=== PATIENT | female | born 1980 | race Caucasian/White ===

== ENCOUNTER 2017-09-03 21:45 | Emergency (ER) | payer MEDICARE, SELFPAY ==
[2017-09-03 21:46] VITALS: BP 154/104; PULSE 83; RESP 14; TEMP 36.5; O2SAT 96; BMI 23.5
--- NOTE | 2017-09-03 22:02 | ED.DCSUM_ITS ---
- ER Visit Summary Date of Service: 09/03/17 Chief Complaint: Abnormal labs History of Present Illness: The patient is a 37 F to the emergency department with symptoms of low potassium. The patient has a history of short gut syndrome. 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 She has resultant short gut syndrome. She is on oral potassium and magnesium replacement. However, from time to time even with oral replacement she will have low values. Over the past 3 days, she has began have some twitching of her eyes and spasming of her legs. She also has a mild headache which she states she will get from this. She denies any vomiting. She states she has increased her magnesium and that has been giving her some more diarrhea. There has been no blood in the diarrhea. She is on Lovenox and has been compliant with this. She has not had fevers or chills. She denies any new pains. Physical Examination: Vital signs reviewed General: Well-nourished, well-developed Head: Normocephalic, atraumatic Eyes: Pupils equal and reactive, extraocular muscles intact Neck, supple, no lymphadenopathy Heart: Regular rate and rhythm Respiratory: No distress, clear bilaterally Abdomen: Soft, nontender, nondistended, no peritoneal signs Back: Nontender Extremities: Nontender, no edema, no cords Skin: Normal color no rash Neuro: Alert and oriented, no focal or lateralizing deficits Test Results: [] Emergency Department Course and Treatment: The patient presents with symptoms of low potassium and magnesium. IV was established. I did treat her headache she had improvement of her symptoms. The patient was aggressively hydrated. Her labs do show significant hypokalemia with a potassium of 2.1. This is obviously going to be replaced. I did discuss options with the patient. She does not want to be admitted to the hospital. Patient will undergo oral replacement therapy along with IV replacement therapy. We will replace her magnesium IV also. She will then be given another dose of oral replacement potassium and is counseled to increase her potassium replacement at home to double her current strategy. The patient is to call her clinic physician tomorrow to discuss these results. She is comfortable with this plan of care. She is going to be aggressively replaced here in the emergency department. As long as there is no change in plan, the patient will be discharged home. Treatment Plan: [] Disposition: Discharge Impression: 1. Hypokalemia 2. Hypomagnesemia This note was generated with [employer] dictation software. It may contain incorrect words, spelling, and punctuation that were not noted in review of the chart prior to signing ED Disposition - Plan for ED Patient: Chief Complaint: Abn Labs Instructions: ED Potassium Deficiency Referrals: José Luis Motley MD [Primary Care Provider] -
[2017-09-03] MEDS: proCHLORPERazine 10 MG/2 ML Vial IV (22:38)
[2017-09-03] MEDS: DiphenhydrAMINE 50 MG/ML Syringe 25 MG IV (22:38)
[2017-09-03] MEDS: 0.9% Normal Saline 1,000 ML 999 ML IV (22:38)
[2017-09-03 23:05] LABS: Absolute Lymphocyte Count 2.26 X10^3/ul (0.83-4.51); Basophil# 0.02 X10^3/uL; Basophil% 0.4 % (0-1); Eosinophil# 0.09 X10^3/uL; Eosinophils% 1.9 % (0-5); Hematocrit 36.7 % (37-47); Hemoglobin 12.3 g/dl (12.0-15.0); Lymphocyte # 2.26 X10^3/ul (4.0); Lymphocyte % 46.9 % (19-41); Mean Corp Hgb Conc 33.5 g/gl (32-36); Mean Corpuscular Hgb 28.9 pg (27.0-32.0); Mean Corpuscular Volume 86.4 fL (81-99); Mean Platelet Vol. 8.9 fl (6.2-12.0); Monocyte# 0.43 X10^3/uL; Monocyte% 8.9 % (0-10); Neutrophil # 2.02 X10^3/uL (2.7-7.7); Neutrophil % 41.9 % (47-70); Platelet Count 288 K/mm3 (150-450); RBC Distribution Width CV 13.4 % (11.6-14.6); RBC Distribution Width SD 42.5 fl (35.1-43.9); Red Blood Count 4.25 M/mm3 (4.2-5.4); White Blood Count 4.8 K/mm3 (4.4-11.0)
[2017-09-03 23:06] LABS: POSITIVE COUNT NO; POSITIVE DIFFERENTIAL NO; POSITIVE MORPHOLOGY NO
[2017-09-03 23:36] LABS: Anion Gap 12 (5-15); BUN 1 mg/dL (7-18); BUN/Creat Ratio 1.7 RATIO (10-20); Calcium,Total 7.3 mg/dL (8.5-10.1); Chloride 106 mmol/L (98-107); EST Glomerular Filtration Rate 121 mL/min (>60); Est Glom Filt Rate - Afr Amer 147 mL/min (>60); Estimated Creatinine Clearance 111.93 ml/min; Glucose 78 mg/dL (74-106); Magnesium 1.3 mg/dL (1.6-2.6); Potassium 2.1 mmol/L (3.5-5.1); Sodium Level 146 mmol/L (136-145)
--- NOTE | 2017-09-03 23:36 | ED.RN ---
LAB CALLS WITH CRITICAL RESULT, POTASSIUM 2.1, DR. FREEMAN MADE AWARE.
[2017-09-03 23:49] VITALS: BP 154/98; PULSE 63; RESP 16; O2SAT 98
[2017-09-04] MEDS: LORazepam 2 MG/ML Syringe 0.5 MG IV (00:38)
[2017-09-04 00:44] VITALS: BP 144/96; PULSE 57; RESP 18; O2SAT 97
[2017-09-04 02:09] VITALS: BP 140/101; PULSE 60; RESP 21; O2SAT 97
[2017-09-04 02:53] VITALS: BP 134/79; PULSE 74; RESP 16; O2SAT 99
== END 2017-09-04 04:02 | disposition home or self-care (01) ==
PROVIDERS: Emergency Provider Emergency Medicine; Family Provider Family Medicine; PCP Family Medicine
DX: E87.6 Hypokalemia (principal); E83.42 Hypomagnesemia; D68.59 Other primary thrombophilia; K91.2 Postsurgical malabsorption, not elsewhere classified; Z79.02 Long term (current) use of antithrombotics/antiplatelets
CPT/HCPCS: 80048; 83735; 85025; 96361; 96365; 96366; 96368; 96375; 99284; J7030; J7050; A4216

== ENCOUNTER 2017-11-18 18:45 | Inpatient (IN) | payer MEDICARE, SELFPAY ==
[2017-11-18 18:46] VITALS: BP 201/108; PULSE 70; RESP 17; TEMP 37; O2SAT 100; BMI 24.0
[2017-11-18 19:38] LABS: Absolute Lymphocyte Count 1.67 X10^3/ul (0.83-4.51); Basophil# 0.02 X10^3/uL; Basophil% 0.5 % (0-1); Eosinophil# 0.05 X10^3/uL; Eosinophils% 1.2 % (0-5); Hematocrit 40.6 % (37-47); Hemoglobin 13.2 g/dl (12.0-15.0); Lymphocyte # 1.67 X10^3/ul (4.0); Lymphocyte % 41.3 % (19-41); Mean Corp Hgb Conc 32.5 g/gl (32-36); Mean Corpuscular Hgb 28.6 pg (27.0-32.0); Mean Corpuscular Volume 88.1 fL (81-99); Mean Platelet Vol. 9.1 fl (6.2-12.0); Monocyte# 0.27 X10^3/uL; Monocyte% 6.7 % (0-10); Neutrophil # 2.03 X10^3/uL (2.7-7.7); Neutrophil % 50.3 % (47-70); Platelet Count 293 K/mm3 (150-450); RBC Distribution Width CV 13.8 % (11.6-14.6); RBC Distribution Width SD 44.8 fl (35.1-43.9); Red Blood Count 4.61 M/mm3 (4.2-5.4)
--- NOTE | 2017-11-18 19:40 | ED.DCSUM_ITS ---
- ER Visit Summary Date of Service: 11/18/17 Chief Complaint: Abnormal labs History of Present Illness: The patient is a 37 F presenting with abnormal labs. Patient had outpatient labs drawn per [facility] today. She states she was called and advised that she needs to go to the ED because her potassium and magnesium were both low. She has a history of short gut syndrome and history of similar complaints in the past. She has nausea and chronic diarrhea. Denies fever. She has chronic abdominal pain which is unchanged. Physical Examination: Vitals are stable. Patient is afebrile. Alert no acute distress. HEENT exam is unremarkable. Neck is supple. Lungs are clear and equal bilaterally. Heart is regular rate and rhythm. Abdomen is soft nontender nondistended. Extremities are unremarkable. Skin is warm and dry. No focal neurologic deficit. Remainder of exam is unremarkable. Emergency Department Course and Treatment: Patient is given morphine, Zofran IV. Basic metabolic panel shows potassium 2.3, magnesium 1.2. She is ordered potassium and magnesium replacement. Will discuss with the hospitalist for observation. Disposition: Observation Impression: Hypokalemia, hypomagnesemia This note was generated with [employer] dictation software. It may contain incorrect words, spelling, and punctuation that were not noted in review of the chart prior to signing ED Disposition - Plan for ED Patient: Chief Complaint: Abn Labs Referrals: José Luis Motley MD [Primary Care Provider] -
[2017-11-18 19:42] LABS: POSITIVE COUNT NO; POSITIVE DIFFERENTIAL NO; POSITIVE MORPHOLOGY NO
[2017-11-18] MEDS: Morphine 4 MG/ML Syringe IV ×2 (19:51→23:10)
[2017-11-18] MEDS: Ondansetron 4 MG/2 ML Vial IV (19:51)
[2017-11-18 20:20] LABS: Anion Gap 7 (5-15); BUN 5 mg/dL (7-18); BUN/Creat Ratio 8.1 RATIO (10-20); Calcium,Total 8.8 mg/dL (8.5-10.1); Chloride 99 mmol/L (98-107); Creatinine, Serum 0.62 mg/dL (0.55-1.02); EST Glomerular Filtration Rate 116 mL/min (>60); Est Glom Filt Rate - Afr Amer 140 mL/min (>60); Estimated Creatinine Clearance 112.88 ml/min; Glucose 90 mg/dL (74-106); Magnesium 1.2 mg/dL (1.6-2.6); Potassium 2.3 mmol/L (3.5-5.1); Sodium Level 139 mmol/L (136-145)
--- NOTE | 2017-11-18 20:21 | ED.RN ---
lab called to report potassium 2.3, dr. webster and rn aware.
[2017-11-18 21:00] VITALS: BP 181/100; PULSE 60; RESP 16; O2SAT 95
--- NOTE | 2017-11-18 22:37 | PCM.HP.STD ---
Problem List (1) Hypokalemia Status: Acute (2) Hypomagnesemia Status: Acute (3) Short gut syndrome Status: Chronic History of Present Illness Date of Admission: 11/18/17 Chief Complaint: abnormal labs The patient is a 37 year old female patient sent into the ER by her GI specialist for chief complaint of abnormal laboratory studies. Her potassium is critically low at 2.3 and her magnesium is 1.2. She has abdominal discomfort. No nausea at present. No chest pain or shortness of breath. Her blood pressure is noted to be elevated. She will be admitted for observation and management of electrolyte imbalance. Past Medical History Past Medical History (Chronic Problems): Chronic Problems Short gut syndrome (Chronic) Hypercoagulable state, primary (Chronic) Allergies adhesive Allergy (Verified 11/18/17 18:46) Itching amoxicillin [Amoxicillin] Allergy (Verified 11/18/17 18:46) Hives Penicillins Allergy (Verified 11/18/17 18:46) Hives Home Medications: Ambulatory Orders Medication Instructions Recorded Enoxaparin [Lovenox] 70 mg SC BID 10/13/13 Ergocalciferol [Vitamin D] 50,000 unit PO DAILY 10/09/14 Calcium Carbonate [Tums] 100 mg PO TIDCM 04/27/16 L.acidoph,Paracasei, B.lactis 1 each PO DAILY 04/27/16 [Probiotic] Magnesium l-Lactate [Mag-Tab Sr] 3 tab PO TID 04/27/16 Multivit with Calcium,Iron,Min 3 tab PO DAILY 04/27/16 [Multiple Vitamins For Women] Vitamin A 1 cap PO DAILY 04/27/16 Potassium Chloride [K-Dur] 20 meq PO TID 10/08/16 Ferrous Sulfate [Iron] 325 mg PO DAILY 05/01/17 Vitamin E 400 unit PO DAILY 05/01/17 Zinc 50 mg PO DAILY 05/01/17 Surgical History: - - recent history of small bowel resection and partial colon resection EXPEDITION[employer]CE COMB[employer] SKILLS History: No pertinent EXPEDITIONARY [employer]CE COMBAT SKILLS history Smoking Status: Former smoker Review of Systems Constitutional: Denies: Chills, Fever, Weight Change HEENT: Denies: Head Aches, Sinus Congestion, Sinus Drainage Cardiovascular: Denies: Chest Pain, Palpitations Respiratory: Denies: Cough, Shortness of breath at rest, Sputum production Gastrointestinal: Reports: Abdominal Pain. Denies: Nausea, Vomiting Genitourinary: Denies: Dysuria Musculoskeletal: Denies: Joint Pain, Joint Tenderness Skin: Denies: Rash, Wounds Neurological: Denies: Numbness, Tingling, Focal weakness Psychiatric: Denies: Anxiety, Depression, Homicidal Ideations, Suicidal Ideations Hematologic/ Lymphatic: Denies: Easy Bruising, Easy Bleeding VTE Information - Inpt Only VTE Present on Admission: No VTE Mechan Device Prophylaxis: SCD's VTE Pharm Prophylaxis ordered?: No Patient Problems: Active and Suspected Problems Hypokalemia (Acute) Hypomagnesemia (Acute) - Physical Exam General: Alert, Oriented x3, Cooperative HEENT: Atraumatic, Normocephalic Neck: Supple, Negative Carotid Bruits Lungs: Clear to auscultation, Normal air movement Cardiovascular: Regular rate, Normal S1, Normal S2, No murmurs Abdomen: Bowel Sounds Present, Soft, Non Tender, Tender - generalized Extremities: No edema Skin: No rashes Musculoskeletal: No Tenderness to Palpation of Joints or Extremities Neurological: Neuro grossly intact Psych/Mental Status: Normal Affect, Appropriate Vital Signs Temp Pulse Resp BP Pulse Ox 98.6 F 60 16 181/100 H 95 11/18/17 18:46 11/18/17 21:00 11/18/17 21:00 11/18/17 21:00 11/18/17 21:00 Oxygen Delivery Method Room Air Weight: 144 lb 2.917 oz Body Mass Index (BMI) 24.0 Laboratory Tests Past 24 Hrs 11/18/17 11/18/17 19:30 19:30 WBC 4.0 L RBC 4.61 Hgb 13.2 Hct 40.6 MCV 88.1 MCH 28.6 MCHC 32.5 RDW 13.8 RDW Differential 44.8 H Plt Count 293 MPV 9.1 Immature Gran % (Auto) 0.000 Neut % (Auto) 50.3 Lymph % (Auto) 41.3 H Gilliam % (Auto) 6.7 Eos % (Auto) 1.2 Baso % (Auto) 0.5 Absolute Neuts (auto) 2.0 Absolute Lymphs (auto) 1.67 Total Counted Not Reportable Sodium 139 Potassium 2.3 L* Chloride 99 Carbon Dioxide 33.0 H Anion Gap 7 BUN 5 L Creatinine 0.62 Estim Creat Clear Calc 112.88 Est GFR (MDRD) Af Amer 140 Est GFR (MDRD) Non-Af 116 BUN/Creatinine Ratio 8.1 L Glucose 90 Calcium 8.8 Phosphorus 4.0 Magnesium 1.2 L Assessment/Plan All Active Problems Hypokalemia (Acute) Hypomagnesemia (Acute) Ileus (Acute) Plan - admit to general medical floor - D51/2 NS with 20meq KCL at 125cc/hour - Magnesium oxide magnesium oxide 800mg po bid x 4 doses - bmp and magnesium level in am - SCDs for DVT prophylaxis - continue routine home medications Code Visit OBSV E&M: 03366 Initial observation care L2
[2017-11-18 23:07] VITALS: BP 183/119; PULSE 64; RESP 16; O2SAT 98
[2017-11-19] VITALS (7 sets, daily range): BP systolic 151–180; BP diastolic 98–119; PULSE 56–69; RESP 16; TEMP 36.6–37.1; O2SAT 99–100; BMI 24.0
[2017-11-19] MEDS: Lisinopril 5 MG Tablet PO ×2 (01:20→09:41)
[2017-11-19] MEDS: Acetaminophen 325 MG Tablet 650 MG PO ×2 (05:09→17:29)
[2017-11-19] MEDS: traMADol 50 MG Tablet PO (06:30)
[2017-11-19 07:24] LABS: Anion Gap 8 (5-15); BUN 4 mg/dL (7-18); BUN/Creat Ratio 8.4 RATIO (10-20); Calcium,Total 7.4 mg/dL (8.5-10.1); Chloride 102 mmol/L (98-107); Creatinine, Serum 0.48 mg/dL (0.55-1.02); EST Glomerular Filtration Rate 157 mL/min (>60); Est Glom Filt Rate - Afr Amer 190 mL/min (>60); Glucose 89 mg/dL (74-106); Magnesium 1.7 mg/dL (1.6-2.6); Potassium 2.7 mmol/L (3.5-5.1); Sodium Level 141 mmol/L (136-145)
[2017-11-19] MEDS: Magnesium Oxide 400 MG Tablet 800 MG PO ×2 (08:21→17:29)
[2017-11-19] MEDS: Multivitamins,Ther W-Minerals Tablet 3 TABLET PO (08:21)
[2017-11-19] MEDS: Calcium Carbonate 500 MG Tablet PO ×3 (08:21→17:29)
[2017-11-19] MEDS: Ferrous Sulfate 325 MG Tablet PO (08:22)
--- NOTE | 2017-11-19 09:15 | PCM.PN.HOSP ---
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 She was admitted after being seen by her GI doctor and review of abnormal labs. She was admitted because potassium was 2.2 and magnesium was at 1.2 and she had assisted abdominal discomfort. She also had elevated blood pressure on admission. She is being managed for hypomagnesemia and hypokalemia. She has remained stable and electrolytes were replaced on admission. Seen and examined. She has no complaints today. She feels well. She says is on the first time she has had such low potassium and that she was told is due to the short gut syndrome which results in decreased absorption of potassium. She knows that she is never noted her blood pressure to be this high before in the past. She denies any fever or chills, any shortness of breath, any chest pain, any abdominal pain, any diarrhea vomiting. Review of systems otherwise negative. Vitals/I&O's: Vital Signs Temp Pulse Resp BP Pulse Ox 98.0 F 56 L 16 170/108 H 100 11/19/17 08:13 11/19/17 08:25 11/19/17 08:13 11/19/17 08:13 11/19/17 08:13 Oxygen Delivery Method Room Air Weight: 144 lb 2.917 oz Body Mass Index (BMI) 24.0 Intake and Output for Last 24 Hours 11/17/17 11/18/17 11/19/17 23:59 23:59 23:59 Intake Total 769 / 769 Balance 769 / 769 General: Alert, Oriented x3, Cooperative, No apparent distress HEENT: Atraumatic, PERRLA, EOMI, Normocephalic Oral: Moist Mucosa Neck: Supple, No JVD, Negative Carotid Bruits Lungs: Clear to auscultation, Normal air movement, No rhonchi, No wheeze, No rales Cardiovascular: Regular rate, Regular Rhythm, Normal S1, Normal S2, No murmurs Abdomen: Bowel Sounds Present, Soft, Non Tender, Non-Distended, No Hepato-splenomegaly Extremities: No clubbing, No cyanosis, No edema, Capillary Refill Less than 3 Seconds Skin: No rashes, No breakdown Musculoskeletal: No Tenderness to Palpation of Joints or Extremities Lymphatic: No Cervical, Supraclavicular, or Inguinal Adenopathy Neurological: Cranial nerves II-XII grossly intact Psych/Mental Status: Normal Affect, Appropriate, Alert and oriented to time, place, person, mood and affect Laboratory Results 11/19/17 06:28: Sodium 141, Potassium 2.7 L*, Chloride 102, Carbon Dioxide 31.0, Anion Gap 8, BUN 4 L, Creatinine 0.48 L, Estim Creat Clear Calc 145.80, Est GFR (MDRD) Af Amer 190, Est GFR (MDRD) Non-Af 157, BUN/Creatinine Ratio 8.4 L, Glucose 89, Calcium 7.4 L, Magnesium 1.7 Current Medications Acetaminophen (Tylenol) 650 mg PO Q6H PRN PRN PRN Reason: PAIN Last Admin: 11/19/17 05:09 Dose: 650 mg Calcium Carbonate (Tums) 500 mg [facility] Last Admin: 11/19/17 08:21 Dose: 500 mg Enoxaparin Sodium (Lovenox) 70 mg SC BID [facility] Ergocalciferol (Vitamin D) 50,000 unit PO DAILY [facility] Ferrous Sulfate (Ferrous Sulfate) [facility] Last Admin: 11/19/17 08:22 Dose: 325 mg Potassium Chloride/Dextrose/Sod Cl (Kcl 20meq In D5.45ns 1000ml) 1,000 mls @ 125 mls/hr IV .Q8H [facility] Last Admin: 11/19/17 01:22 Dose: 125 mls/hr Potassium Chloride (Kcl 10meq/100ml) 10 meq in 100 mls @ 100 mls/hr IV BOLUS Q1H [facility] Stop: 11/19/17 11:59 Last Admin: 11/19/17 08:17 Dose: 100 mls/hr Lactobacillus Acidophilus (Acidophilus) 1 tablet PO DAILY [facility] Magnesium Hydroxide (Milk Of Magnesia) 30 ml PO DAILY PRN PRN PRN Reason: Constipation Magnesium Oxide (Mag-Ox 400) 800 mg PO [facility]IDB[facility] Last Admin: 11/19/17 08:21 Dose: 800 mg Multivitamins/Minerals (Multivitamin With Minerals) 3 tablet PO DAILYB[facility] Last Admin: 11/19/17 08:21 Dose: 3 tablet Sodium Chloride () 5 - 30 ml IV UD PRN PRN Reason: SALINE FLUSH Vitamin E (Vitamin E) 400 units PO DAILY [facility] Zinc Sulfate (Zinc Sulfate) 220 mg PO DAILY [facility] Medical Necessity - Tobacco Use Smoking Status: Former smoker Assessment/Plan All Active Problems Hypokalemia (Acute) Hypomagnesemia (Acute) Ileus (Acute) 37-year-old female with a history of short gut syndrome hypertension as well as protein 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 1. Hypokalemia and hypomagnesemia K was 2.2 on admission; up to 2.7 today with replacement. Mg was 1.2, is 1.7 today will replace and monitor 2. Protein C and S deficiency on lovenox 70mg bid 3. Hypertension: BP was 183/119 on admission; claims compliance with meds. BP this morning is 170/108; elevated BP and hypokalemia in setting of young age raises possibility of hyperaldosteronism will check plasma aldosterone/plasma renin activity ratio 4. Vitamin D deficiency: on vitamind D replacement 6. DVT prophylaxis: lovenox for Protein C and S deficiency For likely DC tomorrow if K is >3 This note was generated with [employer] dictation software. It may contain incorrect words, spelling, and punctuation that were not noted in checking the note before signing. Code Visit Inpatient E&M: 31062 Subs Hosp L2
--- NOTE | 2017-11-19 09:27 | PN_ITS ---
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 She was admitted after being seen by her GI doctor and review of abnormal labs. She was admitted because potassium was 2.2 and magnesium was at 1.2 and she had assisted abdominal discomfort. She also had elevated blood pressure on admission. She is being managed for hypomagnesemia and hypokalemia. She has remained stable and electrolytes were replaced on admission. Seen and examined. She has no complaints today. She feels well. She says is on the first time she has had such low potassium and that she was told is due to the short gut syndrome which results in decreased absorption of potassium. She knows that she is never noted her blood pressure to be this high before in the past. She denies any fever or chills, any shortness of breath, any chest pain, any abdominal pain, any diarrhea vomiting. Review of systems otherwise negative. Vitals/I&O's: Vital Signs Temp Pulse Resp BP Pulse Ox 98.0 F 56 L 16 170/108 H 100 11/19/17 08:13 11/19/17 08:25 11/19/17 08:13 11/19/17 08:13 11/19/17 08:13 Oxygen Delivery Method Room Air Weight: 144 lb 2.917 oz Body Mass Index (BMI) 24.0 Intake and Output for Last 24 Hours 11/17/17 11/18/17 11/19/17 23:59 23:59 23:59 Intake Total 769 / 769 Balance 769 / 769 General: Alert, Oriented x3, Cooperative, No apparent distress HEENT: Atraumatic, PERRLA, EOMI, Normocephalic Oral: Moist Mucosa Neck: Supple, No JVD, Negative Carotid Bruits Lungs: Clear to auscultation, Normal air movement, No rhonchi, No wheeze, No rales Cardiovascular: Regular rate, Regular Rhythm, Normal S1, Normal S2, No murmurs Abdomen: Bowel Sounds Present, Soft, Non Tender, Non-Distended, No Hepato- splenomegaly Extremities: No clubbing, No cyanosis, No edema, Capillary Refill Less than 3 Seconds Skin: No rashes, No breakdown Musculoskeletal: No Tenderness to Palpation of Joints or Extremities Lymphatic: No Cervical, Supraclavicular, or Inguinal Adenopathy Neurological: Cranial nerves II-XII grossly intact Psych/Mental Status: Normal Affect, Appropriate, Alert and oriented to time, place, person, mood and affect Laboratory Results 11/19/17 06:28: Sodium 141, Potassium 2.7 L*, Chloride 102, Carbon Dioxide 31.0 , Anion Gap 8, BUN 4 L, Creatinine 0.48 L, Estim Creat Clear Calc 145.80, Est GFR (MDRD) Af Amer 190, Est GFR (MDRD) Non-Af 157, BUN/Creatinine Ratio 8.4 L, Glucose 89, Calcium 7.4 L, Magnesium 1.7 Current Medications Acetaminophen (Tylenol) 650 mg PO Q6H PRN PRN PRN Reason: PAIN Last Admin: 11/19/17 05:09 Dose: 650 mg Calcium Carbonate (Tums) 500 mg PO [facility]CO[facility] [place] Last Admin: 11/19/17 08:21 Dose: 500 mg Enoxaparin Sodium (Lovenox) 70 mg SC BID [facility] Ergocalciferol (Vitamin D) 50,000 unit PO DAILY [facility] Ferrous Sulfate (Ferrous Sulfate) 325 [facility]ILYP[facility] Last Admin: 11/19/17 08:22 Dose: 325 mg Potassium Chloride/Dextrose/Sod Cl (Kcl 20meq In D5.45ns 1000ml) 1,000 mls @ 125 mls/hr IV .Q8H [facility] Last Admin: 11/19/17 01:22 Dose: 125 mls/hr Potassium Chloride (Kcl 10meq/100ml) 10 meq in 100 mls @ 100 mls/hr IV BOLUS Q1H [facility] Stop: 11/19/17 11:59 Last Admin: 11/19/17 08:17 Dose: 100 mls/hr Lactobacillus Acidophilus (Acidophilus) 1 tablet PO DAILY [facility] Magnesium Hydroxide (Milk Of Magnesia) 30 ml PO DAILY PRN PRN PRN Reason: Constipation Magnesium Oxide (Mag-Ox 400) 800 [facility] Last Admin: 11/19/17 08:21 Dose: 800 mg Multivitamins/Minerals (Multivitamin With Minerals) 3 tablet [facility] Last Admin: 11/19/17 08:21 Dose: 3 tablet Sodium Chloride () 5 - 30 ml IV UD PRN PRN Reason: SALINE FLUSH Vitamin E (Vitamin E) 400 units PO DAILY [facility] Zinc Sulfate (Zinc Sulfate) 220 mg PO DAILY [facility] Medical Necessity - Tobacco Use Smoking Status: Former smoker Assessment/Plan All Active Problems Hypokalemia (Acute) Hypomagnesemia (Acute) Ileus (Acute) 37-year-old female with a history of short gut syndrome hypertension as well as protein 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 1. Hypokalemia and hypomagnesemia * K was 2.2 on admission; up to 2.7 today with replacement. Mg was 1.2, is 1.7 today * will replace and monitor * 2. Protein C and S deficiency * on lovenox 70mg bid * 3. Hypertension: * BP was 183/119 on admission; claims compliance with meds. * BP this morning is 170/108; elevated BP and hypokalemia in setting of young age raises possibility of hyperaldosteronism * will check plasma aldosterone/plasma renin activity ratio 4. Vitamin D deficiency: on vitamind D replacement 6. DVT prophylaxis: lovenox for Protein C and S deficiency For likely DC tomorrow if K is >3 This note was generated with [email or web address] dictation software. It may contain incorrect words, spelling, and punctuation that were not noted in checking the note before signing. Code Visit Inpatient E&M: 98995 Subs Hosp L2
[2017-11-19] MEDS: Vitamin E 400 UNITS Capsule PO (09:29)
[2017-11-19] MEDS: Enoxaparin 80 MG/0.8 ML Syringe 70 MG SC ×2 (09:30→22:36)
[2017-11-19] MEDS: amLODIPine 10 MG Tablet PO (09:41)
[2017-11-19] MEDS: hydrALAZINE 20 MG/ML Vial 10 MG IV (12:16)
--- NOTE | 2017-11-19 12:31 | CASEMGMT ---
Addendum entered by Rafael Delgado 11/19/17 12:32: Original Note: See RN CM Assessment Link. DC PLAN: HOME No needs identified @ this time. Johnny CONTRERASN RN ACM
--- NOTE | 2017-11-19 12:33 | CASEMGMT ---
See RN CM Assessment Link. DC PLAN:HOME No discharge needs identified. Johnny CONTRERASN RN ACM
--- NOTE | 2017-11-19 14:30 | NURSING ---
PT HAD REQUESTED PAIN MEDS, BUT WAS RESTING WITH EYES CLOSED
[2017-11-19] MEDS: oxyCODONE 5 MG Tablet PO (20:07)
[2017-11-20] MEDS: oxyCODONE 5 MG Tablet PO ×2 (00:36→08:00)
[2017-11-20 03:00] VITALS: BP 150/101; PULSE 62; RESP 18; TEMP 36.9; O2SAT 98
--- NOTE | 2017-11-20 07:12 | PCM.PN.HOSP ---
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 She was admitted after being seen by her GI doctor and review of abnormal labs. She was admitted because potassium was 2.2 and magnesium was at 1.2 and she had assisted abdominal discomfort. She also had elevated blood pressure on admission. She is being managed for hypomagnesemia and hypokalemia. She has remained stable and electrolytes were replaced on admission. Patient seen and examined. She complains of a headache overnight which is due to her inability to sleep. She denies any chest pain or palpitations, shortness of breath, any abdominal pain, dizziness or diarrhea or vomiting. Review of systems otherwise negative. Vitals/I&O's: Vital Signs Temp Pulse Resp BP Pulse Ox 98.5 F 62 18 150/101 H 98 11/20/17 03:00 11/20/17 03:00 11/20/17 03:00 11/20/17 03:00 11/20/17 03:00 Oxygen Delivery Method Room Air Weight: 144 lb 2.917 oz Body Mass Index (BMI) 24.0 Intake and Output for Last 24 Hours 11/18/17 11/19/17 11/20/17 23:59 23:59 23:59 Intake Total 769 / 769 240 / 240 Balance 769 / 769 240 / 240 General: Alert, Oriented x3, Cooperative, No apparent distress HEENT: Atraumatic, PERRLA, EOMI, Normocephalic Oral: Moist Mucosa Neck: Supple, No JVD, Negative Carotid Bruits Lungs: Clear to auscultation, Normal air movement, No rhonchi, No wheeze, No rales Cardiovascular: Regular rate, Regular Rhythm, Normal S1, Normal S2, No murmurs Abdomen: Bowel Sounds Present, Soft, Non Tender, Non-Distended, No Hepato-splenomegaly Extremities: No clubbing, No cyanosis, No edema, Capillary Refill Less than 3 Seconds Skin: No rashes, No breakdown Musculoskeletal: No Tenderness to Palpation of Joints or Extremities Lymphatic: No Cervical, Supraclavicular, or Inguinal Adenopathy Neurological: Cranial nerves II-XII grossly intact Psych/Mental Status: Normal Affect, Appropriate, Alert and oriented to time, place, person, mood and affect Laboratory Results 11/19/17 06:28: Sodium 141, Potassium 2.7 L*, Chloride 102, Carbon Dioxide 31.0, Anion Gap 8, BUN 4 L, Creatinine 0.48 L, Estim Creat Clear Calc 145.80, Est GFR (MDRD) Af Amer 190, Est GFR (MDRD) Non-Af 157, BUN/Creatinine Ratio 8.4 L, Glucose 89, Calcium 7.4 L, Magnesium 1.7 11/19/17 10:10: Renin Pending, Aldosterone Pending Current Medications Acetaminophen (Tylenol) 650 mg PO Q6H PRN PRN PRN Reason: PAIN Last Admin: 11/19/17 17:29 Dose: 650 mg Amlodipine Besylate (Norvasc) 10 mg PO DAILY [facility] Last Admin: 11/19/17 09:41 Dose: 10 mg Calcium Carbonate (Tums) 500 mg PO TIDCM [facility] Last Admin: 11/19/17 17:29 Dose: 500 mg Enoxaparin Sodium (Lovenox) 70 mg SC BID [facility] Last Admin: 11/19/17 22:36 Dose: 70 mg Ergocalciferol (Vitamin D) 50,000 unit PO DAILY [facility] Last Admin: 11/19/17 09:29 Dose: 50,000 unit [facility] Last Admin: 11/19/17 08:22 Dose: 325 mg Hydralazine HCl (Apresoline Iv) 10 mg IV Q8H PRN PRN PRN Reason: BLOOD PRESSURE Last Admin: 11/19/17 12:16 Dose: 10 mg Lactobacillus Acidophilus (Acidophilus) 1 tablet PO DAILY [facility] Last Admin: 11/19/17 09:29 Dose: 1 tablet Lisinopril (Zestril) 5 mg PO DAILY [facility] Last Admin: 11/19/17 09:41 Dose: 5 mg Magnesium Hydroxide (Milk Of Magnesia) 30 ml PO DAILY PRN PRN PRN Reason: Constipation [facility]Ox 400) [facility] Last Admin: 11/19/17 17:29 Dose: 800 mg Multivitamins/Minerals ([facility]ivitamin With Minerals) [facility] Last Admin: 11/19/17 08:21 Dose: 3 tablet Oxycodone HCl (Oxyir) 5 - 10 mg PO Q4H PRN PRN PRN Reason: SEVERE PAIN (6-10/10) Last Admin: 11/20/17 00:36 Dose: 5 mg Sodium Chloride () 5 - 30 ml IV UD PRN PRN Reason: SALINE FLUSH Vitamin E (Vitamin E) 400 units PO DAILY [facility] Last Admin: 11/19/17 09:29 Dose: 400 units Zinc Sulfate (Zinc Sulfate) 220 mg PO DAILY [facility] Last Admin: 11/19/17 09:29 Dose: 220 mg Medical Necessity - Tobacco Use Smoking Status: Former smoker Assessment/Plan All Active Problems Hypokalemia (Acute) Hypomagnesemia (Acute) Ileus (Acute) 37-year-old female with a history of short gut syndrome hypertension as well as protein [employer] deficiency admitted with hypomagnesemia and hypokalemia as well as hypertension. 1. Hypokalemia and hypomagnesemia K was 2.2 on admission it went up to 2.7 and is still 2.7 today will give 60meq of potassium replacement Mg is 1.6; will replace with 2 g of magnesium patient wants to be discharged home as she says she has had Mg of 2.7 before. will dc home after replacing Potassium and magnesium. Will dc home with PO potassium 20meq tid and magnesium lactate 84mg 2 tabs bid. to follow up with PCP in 1 week with repeat K level 2. Protein C and S deficiency on lovenox 70mg bid 3. Hypertension: newly diagnosed. BP was 183/119 on admission; daniela later said she had never been on any meds was started on PO amlodipine 10mg daily and lisinopril 5mg daily. Bp today is 155/93. To follow up with PCP for Bp optimisation plasma/aldosterone level still pending; sample taken before patient started on lisinopril 4. Vitamin D deficiency: on vitamind D replacement 6. DVT prophylaxis: lovenox for Protein C and S deficiency Disposition: dc today at patient's insistence. Discharged home on PO potassium chloride 20meq tid, magnesium lactate 84mg (2 tabs bid), PO amlodipine 10mg dailya nd lisinopril 5mg daily. To follow up with PCP in one week. Of note, patient left the hospital without informing nurses or physician. Attempts to call patient to come back for her prescription and discharge instructions were unsuccessful. Per nurses, patient has relative on the floor was willing to take a prescription and discharge summary to her. Scripts for medications as mentioned above given. This note was generated with [employer] software. It may contain incorrect words, spelling, and punctuation that were not noted in checking the note before signing. Code Visit Inpatient E&M: 51656 Subs Hosp L2
[2017-11-20 08:00] VITALS: BP 155/93; PULSE 70; RESP 18; TEMP 36.8; O2SAT 98
[2017-11-20 08:43] LABS: Anion Gap 6 (5-15); BUN 7 mg/dL (7-18); BUN/Creat Ratio 13.3 RATIO (10-20); Calcium,Total 7.7 mg/dL (8.5-10.1); Chloride 100 mmol/L (98-107); Creatinine, Serum 0.53 mg/dL (0.55-1.02); EST Glomerular Filtration Rate 139 mL/min (>60); Est Glom Filt Rate - Afr Amer 169 mL/min (>60); Estimated Creatinine Clearance 132.04 ml/min; Glucose 86 mg/dL (74-106); Magnesium 1.6 mg/dL (1.6-2.6); Potassium 2.7 mmol/L (3.5-5.1); Sodium Level 141 mmol/L (136-145)
[2017-11-20] MEDS: Calcium Carbonate 500 MG Tablet PO (09:00)
[2017-11-20] MEDS: Magnesium Oxide 400 MG Tablet 800 MG PO (09:00)
[2017-11-20] MEDS: Multivitamins,Ther W-Minerals Tablet 3 TABLET PO (09:00)
[2017-11-20] MEDS: Ferrous Sulfate 325 MG Tablet PO (09:00)
--- NOTE | 2017-11-20 10:37 | PCA ---
D/C'd pt's IV per nurses request. Pt. tolerated well.
[2017-11-20] MEDS: Enoxaparin 80 MG/0.8 ML Syringe 70 MG SC (10:55)
[2017-11-20] MEDS: Lisinopril 5 MG Tablet PO (10:56)
[2017-11-20] MEDS: amLODIPine 10 MG Tablet PO (10:56)
[2017-11-20] MEDS: Vitamin E 400 UNITS Capsule PO (10:56)
--- NOTE | 2017-11-20 11:23 | NURSING ---
dr ayers notified of pt refusal of mag and k riders-pt anxious to leave and was told was involved with another pt at this time
--- NOTE | 2017-11-20 11:25 | NURSING ---
pt not in room
--- NOTE | 2017-11-20 11:33 | PCM.DC ---
- Discharge Diagnoses Current Active Problems: Current Active and Chronic Problems Hypokalemia (Acute) Hypomagnesemia (Acute) Short gut syndrome (Chronic) You will use the following diet at home:: No restrictions Your food should be the consistency of: Regular Your liquids should be the consistency of: Regular/Thin Discharge Activity: Return to Normal Activity May resume sexual activity in: No Restrictions Weight Bearing Status: Weight bearing as tolerated Instructions: Discharge Instructions for Hypokalemia, Discharge Instructions: Eating a High Potassium Diet, ED Potassium Deficiency, Discharge Instructions for Hypomagnesemia Pending Tests on Discharge: plasma renin/aldosterone ratio to rule out hyperaldosteronism Allergies/Adverse Reactions: Allergies adhesive Allergy (Verified 11/18/17 18:46) Itching amoxicillin [Amoxicillin] Allergy (Verified 11/18/17 18:46) Hives Penicillins Allergy (Verified 11/18/17 18:46) Hives Medications to take at Discharge Enoxaparin [Lovenox] 70 mg SC BID 10/13/13 Ergocalciferol [Vitamin D] 50,000 unit PO DAILY 10/09/14 Calcium Carbonate [Tums] 100 mg PO TIDCM 04/27/16 L.acidoph,Paracasei, B.lactis [Probiotic] 1 each PO DAILY 04/27/16 Multivit with Calcium,Iron,Min [Multiple Vitamins For Women] 3 tab PO DAILY 04/27/16 Vitamin A 1 cap PO DAILY 04/27/16 Ferrous Sulfate [Iron] 325 mg PO DAILY 05/01/17 Vitamin E 400 unit PO DAILY 05/01/17 Zinc 50 mg PO DAILY 05/01/17 Amlodipine [Norvasc] 10 mg PO DAILY 30 Days #30 tab 11/20/17 Lisinopril [Zestril] 5 mg PO DAILY 30 Days #30 tab 11/20/17 Magnesium l-Lactate [Mag-Tab Sr] 3 tab PO TID 10 Days #90 tablet.er 11/20/17 Potassium Chloride 40 meq PO BID 30 Days #120 tab.er.prt 11/20/17 The following prescriptions were given: Amlodipine [Norvasc] 10 mg PO DAILY 30 Days #30 tab Lisinopril [Zestril] 5 mg PO DAILY 30 Days #30 tab Potassium Chloride 40 meq PO BID 30 Days #120 tab.er.prt Magnesium l-Lactate [Mag-Tab Sr] 3 tab PO TID 10 Days #90 tablet.er Primary Care Physician: José Luis Motley MD [Primary Care Provider] - Please follow up with your Primary Care Physician in: one week Test Results: Proposed Discharge Date: 11/20/17
--- NOTE | 2017-11-20 11:36 | PCM.DC.SUM ---
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 She was admitted on 11/18/17 after being seen by her GI doctor and review of abnormal labs. She was admitted because potassium was 2.2 and magnesium was at 1.2 and she had associated abdominal discomfort. She also had elevated blood pressure on admission. She is being managed for hypomagnesemia and hypokalemia newly diagnosed hypertension. Potassium was replaced but remained persistently low. Potassium came up to 2.7 and remained at 2.7. Magnesium was also replaced and came up to 1.7 and 1.6. In light of newly diagnosed hypertension and hypokalemia, plasma renin/aldosterone ratio was ordered to rule out hyperaldosteronism. Patient remained stable and asymptomatic. Patient was started on p.o. amlodipine 10 mg daily and p.o. lisinopril 5 mg daily and blood pressure control improved slightly. On 11/20/17, patient insisted on being discharged because she felt well and she says she had had previously diagnosed potassium level of 2.7 and she had remained fine. Patient left before discharge to be completed and without informing any of the staff. Several attempts made to contact the patient to come for scripts as it could not be estimated but this was unsuccessful. Per nurse, patient had a relative was a staff on the medical floor and so was willing to take patients prescriptions to her. Prescription given for p.o. potassium chloride 20 mg 3 times daily, amlodipine 10 mg daily and lisinopril 5 mg daily as well as magnesium lactate 84 mg tablets 2 tablets 2 times daily. She is to follow-up with her primary care doctor in 1 week.. [] Discharge Diet: 2000 mg Sodium Diet, - Discharge Activity: Return to Normal Activity May resume sexual activity in: No Restrictions Weight Bearing Status: Weight bearing as tolerated Home Medications: Medications to take at Discharge Enoxaparin [Lovenox] 70 mg SC BID 10/13/13 Ergocalciferol [Vitamin D] 50,000 unit PO DAILY 10/09/14 Calcium Carbonate [Tums] 100 mg PO TIDCM 04/27/16 L.acidoph,Paracasei, B.lactis [Probiotic] 1 each PO DAILY 04/27/16 Multivit with Calcium,Iron,Min [Multiple Vitamins For Women] 3 tab PO DAILY 04/27/16 Vitamin A 1 cap PO DAILY 04/27/16 Ferrous Sulfate [Iron] 325 mg PO DAILY 05/01/17 Vitamin E 400 unit PO DAILY 05/01/17 Zinc 50 mg PO DAILY 05/01/17 Amlodipine [Norvasc] 10 mg PO DAILY 30 Days #30 tab 11/20/17 Lisinopril [Zestril] 5 mg PO DAILY 30 Days #30 tab 11/20/17 Magnesium l-Lactate [Magnesium l-Lactate Dihyd Sr] 168 mg PO BID 30 Days #120 tablet.er MDD 2 tabs bid 11/20/17 Potassium Chloride [K-Dur] 20 meq PO TID 30 Days #90 tab 11/20/17 Following Prescrptions Were Given to Patient: Amlodipine [Norvasc] 10 mg PO DAILY 30 Days #30 tab Lisinopril [Zestril] 5 mg PO DAILY 30 Days #30 tab Magnesium l-Lactate [Magnesium l-Lactate Dihyd Sr] 168 mg PO BID 30 Days #120 tablet.er MDD 2 tabs bid Potassium Chloride [K-Dur] 20 meq PO TID 30 Days #90 tab Primary Care Physician: José Luis Motley MD [Primary Care Provider] - Please follow up with your Primary Care Physician in: one week Patient Instructions: Discharge Instructions for Hypokalemia, Discharge Instructions for Hypomagnesemia, Discharge Instructions: Eating a High Potassium Diet, ED Potassium Deficiency Disposition: Home Minutes spent on discharge:: 40 Patient Condition:: Good Medical Necessity - Tobacco Use Smoking Status: Former smoker Meaningful Use Info Meaningful Use Diagnoses (Choose all that apply): None applicable Code Visit Inpatient E&M: 62639 Disch Hosp
--- NOTE | 2017-11-22 16:55 | CASEMGMT ---
Case Management Follow-up Call: Phone answered and was told that the patient was unavailable. I provided CM callback number for any needs/questions the patient may have.
[2017-11-27 11:06] LABS: Aldosterone, Serum < 1.0 ng/dL (0.0-30.0); Renin, Plasma < 0.167 ng/mL/hr (0.167-5.380)
== END 2017-11-20 11:35 | disposition home or self-care (01) | DRG 641 ==
LOC: ED 19:37 → MS3 23:11
PROVIDERS: Admitting Provider Family Medicine; Emergency Provider Emergency Medicine; Family Provider Family Medicine; PCP Family Medicine; Visit Provider Student in an Organized Health Care Education/Training Program
DX: E87.6 Hypokalemia (principal); D68.59 Other primary thrombophilia; K91.2 Postsurgical malabsorption, not elsewhere classified; E83.42 Hypomagnesemia; E55.9 Vitamin D deficiency, unspecified; I10 Essential (primary) hypertension; Z87.891 Personal history of nicotine dependence; Z90.49 Acquired absence of other specified parts of digestive tract
CPT/HCPCS: 36415; 80048; 82088; 83735; 84100; 84244; 85025; 99284; J7030; J7040; A4216; J2405

== ENCOUNTER → 2017-11-26 17:42 | Outpatient (CLI) | payer MEDICARE, SELFPAY ==
[2017-11-26 18:38] LABS: ALB/GLOB Ratio 0.9 RATIO (0.9-2.4); AST(SGOT) 33 U/L (15-37); Alanine Aminotransfer ALT/SGPT 54 U/L (13-56); Albumin, Serum 3.3 g/dL (3.2-5.0); Alkaline Phosphatase 91 U/L (45-117); Anion Gap 10 (5-15); BUN 6 mg/dL (7-18); BUN/Creat Ratio 10.2 RATIO (10-20); Calcium,Total 8.4 mg/dL (8.5-10.1); Chloride 111 mmol/L (98-107); Creatinine, Serum 0.59 mg/dL (0.55-1.02); EST Glomerular Filtration Rate 122 mL/min (>60); Est Glom Filt Rate - Afr Amer 147 mL/min (>60); Globulin 3.8 g/dL (2.2-4.2); Glucose 71 mg/dL (74-106); Magnesium 1.5 mg/dL (1.6-2.6); Phosphorus 3.4 mg/dL (2.5-4.9); Potassium 3.5 mmol/L (3.5-5.1); Protein, Total 7.1 g/dL (6.4-8.2); Sodium Level 145 mmol/L (136-145)
[2017-11-26 18:45] LABS: Absolute Neutrophil Count 2.6 X10^3/uL (2.0-7.7); Basophil# 0.02 X10^3/uL; Basophil% 0.4 % (0-1); Eosinophil# 0.12 X10^3/uL; Eosinophils% 2.6 % (0-5); Hematocrit 37.9 % (37-47); Lymphocyte % 34.6 % (19-41); Mean Corp Hgb Conc 31.7 g/gl (32-36); Mean Corpuscular Hgb 29.3 pg (27.0-32.0); Mean Corpuscular Volume 92.4 fL (81-99); Mean Platelet Vol. 9.9 fl (6.2-12.0); Monocyte# 0.32 X10^3/uL; Monocyte% 6.9 % (0-10); Neutrophil # 2.57 X10^3/uL (2.7-7.7); Neutrophil % 55.5 % (47-70); Platelet Count 269 K/mm3 (150-450); RBC Distribution Width CV 13.6 % (11.6-14.6); RBC Distribution Width SD 45.3 fl (35.1-43.9); White Blood Count 4.6 K/mm3 (4.4-11.0)
[2017-11-26 19:04] LABS: POSITIVE COUNT NO; POSITIVE DIFFERENTIAL NO; POSITIVE MORPHOLOGY NO
== END ==
DX: R19.7 Diarrhea, unspecified (principal); K91.2 Postsurgical malabsorption, not elsewhere classified; K55.069 Acute infarction of intestine, part and extent unspecified
CPT/HCPCS: 80053; 83735; 84100; 85025

== ENCOUNTER 2018-03-07 16:02 | Emergency (ER) | payer MEDICAID, SELFPAY ==
[2018-03-07 16:03] VITALS: BP 147/94; PULSE 75; RESP 17; TEMP 36.4; O2SAT 98; BMI 24.0
--- NOTE | 2018-03-07 16:17 | EKG12_ITS ---
Test Reason : ABNORMAL LABS Blood Pressure : / mmHG Vent. Rate : 067 BPM Atrial Rate : 067 BPM P-R Int : 138 ms QRS Dur : 086 ms QT Int : 430 ms P-R-T Axes : 005 010 016 degrees QTc Int : 454 ms Normal sinus rhythm Non specific T wave abnormality Confirmed by LESLI RUIZ, JONATHAN ([id number]), multimedia editor ANTONIETTA GONZALEZ ([id number]) on 03/10/2018 12:26:56 PM Referred By: ELENI Confirmed By:JONATHAN BALLESTEROS MD
--- NOTE | 2018-03-07 17:00 | RAD_ITS ---
STUDY: X-RAY CHEST REASON FOR EXAM: Female, 37 years old. Mild cough and shortness of breath TECHNIQUE: PA and lateral views of the chest. # of Images: 2 COMPARISON: 10/13/2013 FINDINGS: The lungs are clear and expanded. There is no demonstrated pleural abnormality. Normal size heart. Normal mediastinum and yoly. Normal visualized pulmonary arteries. Normal visualized aortic arch and descending thoracic aorta. Normal visualized thoracic spine. Normal visualized ribs, clavicles, and shoulders. There is no demonstrated abnormality of the visualized soft tissue structures of the upper abdomen. RAD/Chest PA and Lateral IMPRESSION: Normal x-ray examination of the chest. Electronically Signed: Leonardo Castaneda DO at 17:15 EDT Tel , Service support ,
[2018-03-07 17:08] LABS: Absolute Lymphocyte Count 1.71 X10^3/ul (0.83-4.51); Absolute Neutrophil Count 2.2 X10^3/uL (2.0-7.7); Basophil# 0.04 X10^3/uL; Basophil% 0.9 % (0-1); Eosinophil# 0.12 X10^3/uL; Eosinophils% 2.7 % (0-5); Hematocrit 37.3 % (37-47); Hemoglobin 11.7 g/dl (12.0-15.0); Lymphocyte # 1.71 X10^3/ul (4.0); Mean Corp Hgb Conc 31.4 g/gl (32-36); Mean Corpuscular Hgb 28.5 pg (27.0-32.0); Mean Platelet Vol. 9.8 fl (6.2-12.0); Monocyte# 0.32 X10^3/uL; Monocyte% 7.3 % (0-10); Neutrophil % 50.1 % (47-70); Platelet Count 268 K/mm3 (150-450); RBC Distribution Width CV 13.9 % (11.6-14.6); White Blood Count 4.4 K/mm3 (4.4-11.0)
[2018-03-07 17:10] LABS: POSITIVE COUNT NO; POSITIVE DIFFERENTIAL NO; POSITIVE MORPHOLOGY NO
[2018-03-07 17:38] LABS: Anion Gap 6 (5-15); BUN 4 mg/dL (7-18); BUN/Creat Ratio 7.5 RATIO (10-20); Calcium,Total 7.4 mg/dL (8.5-10.1); Chloride 115 mmol/L (98-107); Creatinine, Serum 0.53 mg/dL (0.55-1.02); EST Glomerular Filtration Rate 137 mL/min (>60); Est Glom Filt Rate - Afr Amer 166 mL/min (>60); Estimated Creatinine Clearance 126.72 ml/min; Glucose 80 mg/dL (74-106); Magnesium 1.2 mg/dL (1.6-2.6); Phosphorus 2.6 mg/dL (2.5-4.9); Potassium 3.3 mmol/L (3.5-5.1); Sodium Level 144 mmol/L (136-145)
[2018-03-07 17:53] VITALS: BP 150/102; RESP 14; O2SAT 99
--- NOTE | 2018-03-07 17:56 | ED.VISSUMM ---
- ER Visit Summary Date of Service: 03/07/18 Chief Complaint: Abnormal labs History of Present Illness: The patient is a 37 F who states that she was told by her break out man to go to the ER due to abnormal labs. She had labs drawn 5 days ago. She has routine labs drawn due to a history of short gut syndrome. 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 She is not on TPN any longer. She otherwise has a history of hypertension. She had blood work drawn on Saturday of this week and has complained of some muscle cramping intermittent shortness of breath and palpitations. She has chronic diarrhea related to her short gut syndrome. Her break out man called today and told her that with her symptoms and lab abnormalities she should be evaluated in the. She has been admitted previously for hypomagnesemia and hypokalemia. She was told that her magnesium and potassium were low and that her CO2 was high. Physical Examination: Afebrile vitals are unremarkable Patient resting comfortably no distress Moist mucous members Heart regular rate and rhythm next line lungs clear Abdomen soft Alert No focal or lateralizing neurological deficits Test Results: Labs notable for hemoglobin 11.7, potassium 3.3, magnesium 1.2. Phosphorus is normal. Emergency Department Course and Treatment: Patient only has mild hypokalemia. She was given additional oral potassium chloride. We will replace her magnesium IV. I do not believe the patient requires hospitalization at this point. She was advised to return for any new or worsening symptoms and otherwise to follow-up with her primary care physician. Patient will be discharged after electrolyte replacement. Treatment Plan: [] Disposition: Discharge Impression: Hypokalemia Hypomagnesemia This note was generated with [employer] dictation software. It may contain incorrect words, spelling, and punctuation that were not noted in review of the chart prior to signing ED Disposition - Plan for ED Patient: Chief Complaint: Abn Labs Referrals: José Luis Motley MD [Primary Care Provider] -
--- NOTE | 2018-03-07 17:59 | ED.DCSUM_ITS ---
- ER Visit Summary Date of Service: 03/07/18 Chief Complaint: Abnormal labs History of Present Illness: The patient is a 37 F who states that she was told by her diet consultant to go to the ER due to abnormal labs. She had labs drawn 5 days ago. She has routine labs drawn due to a history of short gut syndrome. 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 She is not on TPN any longer. She otherwise has a history of hypertension. She had blood work drawn on Saturday of this week and has complained of some muscle cramping intermittent shortness of breath and palpitations. She has chronic diarrhea related to her short gut syndrome. Her diet consultant called today and told her that with her symptoms and lab abnormalities she should be evaluated in the. She has been admitted previously for hypomagnesemia and hypokalemia. She was told that her magnesium and potassium were low and that her CO2 was high. Physical Examination: Afebrile vitals are unremarkable Patient resting comfortably no distress Moist mucous members Heart regular rate and rhythm next line lungs clear Abdomen soft Alert No focal or lateralizing neurological deficits Test Results: Labs notable for hemoglobin 11.7, potassium 3.3, magnesium 1.2. Phosphorus is normal. Emergency Department Course and Treatment: Patient only has mild hypokalemia. She was given additional oral potassium chloride. We will replace her magnesium IV. I do not believe the patient requires hospitalization at this point. She was advised to return for any new or worsening symptoms and otherwise to follow- up with her primary care physician. Patient will be discharged after electrolyte replacement. Treatment Plan: [] Disposition: Discharge Impression: Hypokalemia Hypomagnesemia This note was generated with [employer] dictation software. It may contain incorrect words, spelling, and punctuation that were not noted in review of the chart prior to signing ED Disposition - Plan for ED Patient: Chief Complaint: Abn Labs Referrals: José Luis Motley MD [Primary Care Provider] -
--- NOTE | 2018-03-07 17:59 | ED.DEP ---
ED Disposition - Plan for ED Patient: Chief Complaint: Abn Labs Instructions: ED Potassium Deficiency, Discharge Instructions for Hypomagnesemia Referrals: José Luis Motley MD [Primary Care Provider] -
[2018-03-07 18:07] VITALS: BP 147/103; PULSE 71; RESP 16; O2SAT 97
[2018-03-07] MEDS: Ketorolac 30 MG/ML Syringe IV (19:23)
[2018-03-07 21:00] VITALS: BP 163/105; PULSE 74; RESP 16; O2SAT 99
== END 2018-03-07 21:01 | disposition home or self-care (01) ==
PROVIDERS: Emergency Provider Emergency Medicine; Family Provider Family Medicine; PCP Family Medicine
DX: E87.6 Hypokalemia (principal); E83.42 Hypomagnesemia; K91.2 Postsurgical malabsorption, not elsewhere classified; D68.59 Other primary thrombophilia; I10 Essential (primary) hypertension; Z79.02 Long term (current) use of antithrombotics/antiplatelets; Z79.899 Other long term (current) drug therapy
CPT/HCPCS: 36415; 71046; 80048; 83735; 84100; 85025; 93005; 96365; 96366; 96375; 99285; J7050; A4216

== ENCOUNTER 2018-06-23 14:37 | Emergency (ER) | payer MEDICAID, SELFPAY ==
[2018-06-23 14:38] VITALS: BP 157/107; PULSE 76; RESP 17; TEMP 36.9; O2SAT 97; BMI 26.4
--- NOTE | 2018-06-23 15:59 | RAD_ITS ---
STUDY: X-RAY CHEST REASON FOR EXAM: Female, 38 years old. Worsening cough. TECHNIQUE: PA and lateral views of the chest. COMPARISON: March 07, 2018 FINDINGS: The lungs are clear and expanded. There is no demonstrated pleural abnormality. Normal size heart. Normal mediastinum and yoly. Normal visualized pulmonary arteries. Normal visualized aortic arch and descending thoracic aorta. Normal visualized thoracic spine. Normal visualized ribs, clavicles, and shoulders. There is no demonstrated abnormality of the visualized soft tissue structures of the upper abdomen. RAD/Chest PA and Lateral IMPRESSION: No acute cardiopulmonary process. Electronically Signed: Sarah Garcia MD at 16:25 EST Tel , Service support ,
--- NOTE | 2018-06-23 16:53 | ED.DCSUM_ITS ---
- ER Visit Summary Date of Service: 06/23/18 Chief Complaint: Cough History of Present Illness: The patient is a [address] Motley. She reports that she has a cough began approximately 7 days ago. Is nonproductive. She reports she has a sore throat 6 out of 10 severity. She has right ear pain is 7 out of 10 severity. She has had chills, but no fever. She reports that she has had mild shortness of breath. She has not been wheezing. Patient reports that she chipped a tooth in the right mandible approximately 1 week ago. She has pain here that 6 out of 10 severity. She has not seen a dentist for this. Physical Examination: Vitals: Stable. Afebrile. General: Well-nourished and well-developed. Head: Normocephalic atraumatic. Neck: Supple, no lymphadenopathy. No JVD. Nontender. Dental: Bell 1 fracture lateral right mandibular second premolar. There is no trismus. No focal abscess. No edema of the floor of her mouth. Cardiovascular: Regular rate and rhythm. No murmurs. Respiratory: No respiratory distress. Clear to auscultation bilaterally. Abdominal: Soft, nontender, nondistended, normal bowel sounds. No guarding, rebound, or peritoneal signs. Back: Nontender. Extremities: Nontender, no edema. Skin: Normal color, no rash. Neurologic: Alert and oriented ?3. Cranial nerves II through XII are intact. Normal strength and sensation. Psych: Normal affect. Test Results: Chest x-ray is normal. Emergency Department Course and Treatment: Patient was treated with Mirtha Tam. She is resting comfortably. Treatment Plan: Patient will be discharged Tesalvin Tam for her URI. Instructed to follow-up Dr. Ridge López in 1 week if not improving. She is instructed to follow-up the dentist as soon as possible for her tooth. Return to the emergency department for any worsening symptoms. Disposition: To home in improved and stable condition. Impression: 1. URI. 2. Dental pain. This note was generated with [employer] software. It may contain incorrect words, spelling, and punctuation that were not noted in review of the chart prior to signing ED Disposition - Plan for ED Patient: Disposition: Home or Assisted Living Instructions: ED Upper Resp Infec No Abx Tx, ED Tooth Pain Prescriptions: Benzonatate [Tessalon Perle] 200 mg PO TID PRN PRN #20 capsule PRN Reason: Cough Referrals: José Luis Motley MD [Primary Care Provider] - 1 Week if not improving Dentist,Your [STAFF PHYSICIAN] - As soon as possible
[2018-06-23 17:04] VITALS: BP 166/108; PULSE 84; RESP 18
[2018-06-23] MEDS: Benzonatate 100 MG Capsule 200 MG PO (17:04)
== END 2018-06-23 17:08 | disposition home or self-care (01) ==
PROVIDERS: Emergency Provider Emergency Medicine; Family Provider Family Medicine; PCP Family Medicine
DX: J06.9 Acute upper respiratory infection, unspecified (principal); K08.89 Other specified disorders of teeth and supporting structures; Z79.899 Other long term (current) drug therapy
CPT/HCPCS: 71046; 99283

== ENCOUNTER 2018-07-04 07:16 | Observation (INO) | payer MEDICAID, SELFPAY ==
[2018-07-04] VITALS (14 sets, daily range): BP systolic 122–208; BP diastolic 89–126; PULSE 60–85; RESP 16–22; TEMP 36–37; O2SAT 96–100; BMI 25.6
--- NOTE | 2018-07-04 08:05 | US_ITS ---
STUDY: ULTRASOUND OF THE FEMALE PELVIS - COMPLETE REASON FOR EXAM: Female, 38 years old. 4 day history of right-sided pelvic pain. History of prior resection of a right ovarian cyst. LMP: June 24, 2018. TECHNIQUE: Transvaginal TECHNICAL QUALITY: Adequate. COMPARISON: None. FINDINGS: The uterus is anteverted and is in a midline position. The uterus measures 10.9 cm x 5.9 cm x 5.3 cm. There is a Nabothian cyst of the cervix. The endometrium measures 16 mm in thickness, and is hyperechoic. There is no demonstrated endometrial mass. There is no demonstrated myometrial mass. I.U.D. - The patient does not have an I.U.D. The right ovary is visualized. The right ovary measures 3.8 cm x 3.5 cm x 3.1 cm. 2 dominant follicles are seen. The larger measures 1.6 cm x 1.9 cm x 0.9 cm. There is no visualized right adnexal mass or complex lesion. There is normal arterial and normal venous vascularity. The left ovary is visualized. The left ovary measures 1.8 cm x 1.5 cm x 1.1 cm. There is no left ovarian cyst or ovarian mass. There is no visualized left adnexal mass or complex lesion. There is normal arterial and normal venous vascularity. There is no fluid in the cul-de-sac. The pre void volume of the bladder was 39 ml. Polycystic ovary disease: No. US/Transvaginal Non- IMPRESSION: Follicles are seen in the right ovary. Electronically Signed: Steve Gan MD at 10:50 EST , Service support ,
--- NOTE | 2018-07-04 08:05 | ED.VISSUMM ---
- ER Visit Summary Date of Service: 07/04/18 Chief Complaint: Right lower quadrant pain History of Present Illness: The patient is a 38 F with history of short gut syndrome and protein S/C deficiency who presents with 2 days of intermittent right lower quadrant abdominal pain. Patient states the pain is stabbing and aching, located in the right pelvic region, with occasional radiation into the right upper abdomen and right lower back, lasting approximately 30-60 minutes at a time. Patient has tried Tylenol without any help. She has associated nausea and vomiting. She has chronic diarrhea due to short gut syndrome. She denies fever, dysuria, urgency, hematuria. She does have some urinary frequency. Patient states last week she had her period, which lasted 7 days, with a being heavy for the last 2 days. This was heavier than normal. She then had it and, and for the last 4 days she has had vaginal spotting. She denies any discharge, any concern for exposure to sexually transmitted infections. Patient takes Lovenox twice daily. She is unable to use aspirin or NSAIDs. Patient still has her appendix. She has a history of ovarian cysts, with the right one that had to be surgically removed. She states this pain feels similar to her ovarian cysts in the past. Physical Examination: Vital signs: afebrile, hemodynamically stable, no hypoxia on room air General: well nourished, well developed, in no distress Skin: warm, dry, no rash, no pallor HEENT: normocephalic and atraumatic; PERRL, EOMI, moist mucous membranes Cardiovascular: regular rate and rhythm without murmurs, no peripheral edema, 2+ pulses all distal extremities Respiratory: No increased work of breathing, lungs are clear to auscultation bilaterally, no rales, rhonchi or wheezing Abdominal: Abdomen is soft, tender in the right lower quadrant/hemipelvis with hyperactive bowel sounds, no guarding or rebound, no masses, no CVA tenderness MSK: Moves all extremities, no deformities, normal strength Neuro: Awake and alert, oriented ?4. No facial droop, sensation and motor function intact and symmetric Test Results: Abnormal Lab Results 07/04/18 07/04/18 07/04/18 08:30 08:30 08:30 WBC 6.0 RBC 4.30 Hgb 12.3 Hct 38.8 MCV 90.2 MCH 28.6 MCHC 31.7 L RDW 13.8 RDW Differential 45.2 H Plt Count 313 MPV 8.8 Immature Gran % (Auto) 0.000 Neut % (Auto) 71.9 H Lymph % (Auto) 20.1 [place] % (Auto) 6.7 Eos % (Auto) 1.0 Baso % (Auto) 0.3 Absolute Neuts (auto) 4.3 Absolute Lymphs (auto) 1.20 Total Counted Not Reportable Sodium 143 Potassium 2.2 L* Chloride 100 Carbon Dioxide 34.0 H Anion Gap 9 BUN 6 L Creatinine 0.55 Estim Creat Clear Calc 120.93 Est GFR (MDRD) Af Amer 158 Est GFR (MDRD) Non-Af 131 BUN/Creatinine Ratio 10.8 Glucose 82 Calcium 8.2 L Magnesium Total Bilirubin 0.60 AST 64 H ALT 53 Alkaline Phosphatase 97 Total Protein 7.3 Albumin 3.2 Globulin 4.1 Albumin/Globulin Ratio 0.8 L Lipase 112 Urine Color Urine Clarity Urine pH Ur Specific [place] Urine Protein Urine Glucose (UA) Urine Ketones Urine Occult Blood Urine Nitrite Urine Bilirubin Urine Urobilinogen Ur Leukocyte Esterase Urine RBC Urine WBC Ur Squamous Epith Cells Urine Bacteria Urine Mucus Urine Test Negative 07/04/18 07/04/18 08:30 08:30 WBC RBC Hgb Hct MCV MCH MCHC RDW RDW Differential Plt Count MPV Immature Gran % (Auto) Neut % (Auto) Lymph % (Auto) [place] % (Auto) Eos % (Auto) Baso % (Auto) Absolute Neuts (auto) Absolute Lymphs (auto) Total Counted Sodium Potassium Chloride Carbon Dioxide Anion Gap BUN Creatinine Estim Creat Clear Calc Est GFR (MDRD) Af Amer Est GFR (MDRD) Non-Af BUN/Creatinine Ratio Glucose Calcium Magnesium 1.2 L Total Bilirubin AST ALT Alkaline Phosphatase Total Protein Albumin Globulin Albumin/Globulin Ratio Lipase Urine Color Yellow Urine Clarity Sl. Cloudy Urine pH 6.5 Ur Specific [place] 1.010 Urine Protein Negative Urine Glucose (UA) Normal Urine Ketones Negative Urine Occult Blood 25 H Urine Nitrite Negative Urine Bilirubin Negative Urine Urobilinogen Normal Ur Leukocyte Esterase 25 H Urine RBC 0-5 SEEN Urine WBC 0-5 SEEN Ur Squamous Epith Cells 0-5 SEEN Urine Bacteria 0 SEEN Urine Mucus 0 SEEN Urine Test Clinical Impression(s) from Imaging Studies Transvaginal US 02/15/19 08:05 IMPRESSION: Follicles are seen in the right ovary. Electronically Signed: Steve Gan MD at 10:50 EST , Service support , Abdomen/Pelvis CT 07/04/18 12:49 IMPRESSION: Diffuse fatty infiltration of the liver. Status post cholecystectomy. Status post multiple small bowel surgery. Electronically Signed: Steve Gan MD at 15:27 EST , Service support , Medications Given Discontinued Medications Sodium Chloride () 1,000 mls @ 1,000 mls/hr IV .Q1H ONE Stop: 07/04/18 09:03 Last Admin: 07/04/18 08:26 Dose: 1,000 mls/hr Potassium Chloride () 10 meq in 100 mls @ 100 mls/hr IV BOLUS Q1H CHIKA Stop: 07/04/18 14:29 Last Admin: 07/04/18 13:27 Dose: 100 mls/hr Admin: 07/04/18 11:19 Dose: 100 mls/hr Magnesium Sulfate 2 gm/ Sodium (Chloride) 104 mls @ 52 mls/hr IV X1 ONE Stop: 07/04/18 14:14 Last Admin: 07/04/18 13:55 Dose: 52 mls/hr Labetalol HCl (Trandate) 10 mg IV X1 ONE Stop: 07/04/18 14:23 Last Admin: 07/04/18 15:12 Dose: 10 mg Morphine Sulfate () 4 mg IV X1 ONE Stop: 07/04/18 08:05 Last Admin: 07/04/18 08:26 Dose: 4 mg Morphine Sulfate () 4 mg IV X1 ONE Stop: 07/04/18 12:58 Last Admin: 07/04/18 13:45 Dose: 4 mg Ondansetron HCl (Zofran) 4 mg IV X1 ONE Stop: 07/04/18 08:05 Last Admin: 07/04/18 08:27 Dose: 4 mg Emergency Department Course and Treatment: Patient's symptoms that have been intermittent for 2 days sounds more concerning for ovarian pathology rather than appendicitis. Pelvic ultrasound performed. Patient was given morphine and Zofran for symptomatic relief. Patient had no leukocytosis or anemia. Hepatic function was unremarkable. Urine negative for infection. negative. Patient's labs were remarkable for significant hypokalemia of 2.2 and hypomagnesemia of 1.2. An EKG showed a sinus bradycardia with a mildly prolonged QTC but no other significant abnormalities. Pelvic ultrasound showed right ovarian follicles but no signs of torsion or other explanation for her severe abdominal pain. Again patient symptoms did not sound consistent with appendicitis, but given her significant intra-abdominal history and surgeries, CT abdomen and pelvis was performed. It showed no acute findings, including no appendicitis, that would explain patient's symptoms. Patient was started on IV potassium and IV magnesium repletion. She will be admitted for further management of her hypomagnesemia and hypokalemia. Patient received pain medication as needed for the right lower abdominal pain. Patient discussed with and admitted to Dr. Pierce. Treatment Plan: [] Disposition: [] Impression: Severe hypokalemia, hypomagnesemia, intermittent right pelvic pain This note was generated with [employer] dictation software. It may contain incorrect words, spelling, and punctuation that were not noted in review of the chart prior to signing ED Disposition - Plan for ED Patient: Referrals: José Luis Motley MD [Primary Care Provider] -
[2018-07-04] MEDS: Morphine 4 MG/ML Syringe IV ×2 (08:26→13:45)
[2018-07-04] MEDS: 0.9% Normal Saline 1,000 ML 1000 ML IV (08:26)
[2018-07-04] MEDS: Ondansetron 4 MG/2 ML Vial IV (08:27)
[2018-07-04 08:35] LABS: Bacteria 0 SEEN /hpf (None Seen); Mucous, Urine 0 SEEN /hpf (<or=2+)
[2018-07-04 08:47] LABS: Absolute Neutrophil Count 4.3 X10^3/uL (2.0-7.7); Basophil# 0.02 X10^3/uL; Basophil% 0.3 % (0-1); Eosinophil# 0.06 X10^3/uL; Hematocrit 38.8 % (37-47); Hemoglobin 12.3 g/dl (12.0-15.0); Lymphocyte % 20.1 % (19-41); Mean Corp Hgb Conc 31.7 g/gl (32-36); Mean Corpuscular Hgb 28.6 pg (27.0-32.0); Mean Corpuscular Volume 90.2 fL (81-99); Mean Platelet Vol. 8.8 fl (6.2-12.0); Monocyte% 6.7 % (0-10); Neutrophil # 4.28 X10^3/uL (2.7-7.7); Neutrophil % 71.9 % (47-70); Platelet Count 313 K/mm3 (150-450); RBC Distribution Width CV 13.8 % (11.6-14.6); RBC Distribution Width SD 45.2 fl (35.1-43.9)
[2018-07-04 08:48] LABS: Internal QC Validated? YES +Cl - CLEAR BKGD; POSITIVE COUNT NO; POSITIVE DIFFERENTIAL NO; POSITIVE MORPHOLOGY NO; Pregnancy, Urine Negative Negative
[2018-07-04 08:57] LABS: Color, Urine Yellow (Yellow); Glucose, Dipstick Normal (Normal); Ketone-Dipstick Negative (Negative); Leukocyte Esterase-Dipstick 25 /ul (Negative); Nitrite-Dipstick Negative (Negative); Occult Blood-Urine 25 /ul (Negative); Protein-Dipstick Negative (Negative); Urine Bilirubin Dipstick Negative (Negative); Urine Clarity Sl. Cloudy (Clear); Urine Urobilinogen Normal (Normal); Urine pH 6.5 (5.0 - 8.0)
[2018-07-04 09:04] LABS: ALB/GLOB Ratio 0.8 RATIO (0.9-2.4); AST(SGOT) 64 U/L (15-37); Albumin, Serum 3.2 g/dL (3.2-5.0); Alkaline Phosphatase 97 U/L (45-117); BUN 6 mg/dL (7-18); BUN/Creat Ratio 10.8 RATIO (10-20); Calcium,Total 8.2 mg/dL (8.5-10.1); Creatinine, Serum 0.55 mg/dL (0.55-1.02); EST Glomerular Filtration Rate 131 mL/min (>60); Est Glom Filt Rate - Afr Amer 158 mL/min (>60); Estimated Creatinine Clearance 120.93 ml/min; Globulin 4.1 g/dL (2.2-4.2); Glucose 82 mg/dL (74-106); Lipase 112 U/L (73-393); Protein, Total 7.3 g/dL (6.4-8.2)
[2018-07-04 09:05] LABS: Alanine Aminotransfer ALT/SGPT 53 U/L (13-56); Anion Gap 9 (5-15); Chloride 100 mmol/L (98-107); Potassium 2.2 mmol/L (3.5-5.1); Sodium Level 143 mmol/L (136-145)
--- NOTE | 2018-07-04 09:06 | ED.RN ---
notified of potassium level of 2.2.
[2018-07-04 09:15] LABS: Red Blood Cells-Urine 0-5 SEEN /hpf (0-5); Squamous Epithelial Cells - UA 0-5 SEEN /hpf (5-10); White Blood Cells 0-5 SEEN /hpf (0-5)
[2018-07-04 10:44] LABS: Magnesium 1.2 mg/dL (1.6-2.6)
[2018-07-04] MEDS: Potassium Chloride 10mEq/100mL 10 MEQ/100 ML IV.SOLN. 100 MEQ IV BOLUS ×5 (11:19→22:47)
--- NOTE | 2018-07-04 12:49 | CT_ITS ---
STUDY: CT ABDOMEN AND PELVIS WITH CONTRAST REASON FOR EXAM: Female, 38 years old. Abdominal pain. History of a short gut syndrome. RADIATION DOSAGE (If Supplied By Facility): CTDIvol = ( 9.9 ) mGy, DLP = ( 610.98 ) mGycm TECHNIQUE: Transaxial images were obtained from the dome of the diaphragm to the symphysis pubis with oral contrast. Isovue 300 100ML IV/Oral was administered. Sagittal and coronal images were reconstructed. Individualized dose optimization techniques were used for this CT. COMPARISON: Comparison is made with prior study dated October 09, 2016. FINDINGS: The visualized lung bases are unremarkable. The visualized portions of the heart are within normal limits. There is decreased attenuation of the liver consistent with steatosis. There are surgical clips in the gallbladder fossa consistent with a prior cholecystectomy. Normal spleen. Normal pancreas. Normal bilateral adrenal glands. Normal right kidney. Normal left kidney. Normal visualized stomach. Multiple surgical sutures are seen in the right anterior mid abdomen as well as in the right lateral midabdomen and keep with history of prior multiple bowel resections. Normal colon. The appendix is visualized and appears normal. There is scattered atherosclerotic calcification of the abdominal aorta, without a demonstrated aneurysm. Normal inferior vena cava. Normal retroperitoneum. Normal urinary bladder. There is a 1.5 cm x 3.2 cm well-defined rounded hypodensity in the subcutaneous fat along the left side of the umbilicus. A similar appearing 1.2 cm rounded density. This may represent postoperative seroma. The previously seen increased markings in the subcutaneous tissue have cleared. Normal osseous structures. CT/Abdomen/Pelvis WITH Contrast IMPRESSION: Diffuse fatty infiltration of the liver. Status post cholecystectomy. Status post multiple small bowel surgery. Electronically Signed: Steve Gan MD at 15:27 EST , Service support ,
--- NOTE | 2018-07-04 16:25 | HP.PCM_ITS ---
Problem List (1) Acute Gastroenteritis Status: Acute (2) Pelvic pain Status: Acute Comment: ovarian cyst seen in [place] er- obtain records. (3) Hypokalemia Status: Acute (4) Hypomagnesemia Status: Acute (5) Short gut syndrome Status: Chronic (6) Hypercoagulable state, primary Status: Chronic (7) Ileus Status: Acute History of Present Illness Date of Admission: 07/04/18 Chief Complaint: Acute on chronic diarrhea for about 4-5 days. 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 Patient has chronic diarrhea about 2-3 bowel movements per day but it gotten worse, sometimes watery and then semisolid. Patient also has chronic right lower quadrant abdominal discomfort for a few months but started getting cramps on and off for a few days which sometimes lasted for half an hour to 1 hour. Patient denies nausea or vomiting. Patient is tolerating liquid diet at home. No fever or chills. She denies burning micturition, urgency or burning micturition/dysuria but has increased frequency. In ED, basic lab abnormality was K2.2, bicarb 34, anion gap 9, magnesium 1.2. UA is negative, nitrite negative, WBC 0-5 cells, LE 25. CT abdomen was done and shows diffuse fatty infiltration otherwise postsurgical changes of cholecystectomy and small bowel surgery. Transvaginal ultrasound shows follicles in the right ovary. No obvious adnexal mass or complex lesion. Patient is not taking any laxatives. She had Flagyl about 3 months ago. Past Medical History Past Medical History (Chronic Problems): Chronic Problems (Last Updated 01/24/18 @ 16:21 by Luna Zurita MD) Short gut syndrome (Chronic) Hypercoagulable state, primary (Chronic) Medical History: Medical History (Last Updated 01/24/18 @ 16:21 by Luna Zurita MD) Protein C deficiency D68.59 Protein S deficiency D68.59 Short gut syndrome K91.2 Blood clotting disorder D68.9 Allergies adhesive Allergy (Verified 07/04/18 07:16) Itching amoxicillin [Amoxicillin] Allergy (Verified 07/04/18 07:16) Hives Penicillins Allergy (Verified 07/04/18 07:16) Hives Home Medications: Ambulatory Orders Medication Instructions Recorded Enoxaparin [Lovenox] 70 mg SC BID 10/13/13 Ergocalciferol [Vitamin D] 50,000 unit PO QODAY 10/09/14 Calcium Carbonate [Tums] 500 mg PO TIDCM 04/27/16 L.acidoph,Paracasei, B.lactis 1 cap PO DAILY 04/27/16 [Probiotic] Multivit with Calcium,Iron,Min 3 tab PO DAILY 04/27/16 [Multiple Vitamins For Women] Lisinopril [Zestril] 5 mg PO DAILY 30 Days #30 tab 11/20/17 Potassium Chloride [K-Dur] 20 meq PO TID 30 Days #90 tab 11/20/17 magnesium L-lactate ER 84 mg 252 mg PO TID tab 01/24/18 tablet,extended release psyllium husk 0.4 gram capsule 0.4 g PO DAILY 01/24/18 Surgical History: Surgical History (Last Updated 01/24/18 @ 16:12 by Marie Maher) History of removal of ovarian cyst Z98.890, Z87.42 right Hx of cholecystectomy Z90.49 S/P hernia repair Z98.890, Z87.19 STEPS procedure x2 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 Denies: Chills, Fever, Weight Change HEENT: Denies: Head Aches, Sinus Congestion, Sinus Drainage Cardiovascular: Denies: Chest Pain, Palpitations Respiratory: Denies: Cough, Shortness of breath at rest, Sputum production Gastrointestinal: Reports: Abdominal Pain, Diarrhea, Nausea. Denies: Vomiting Genitourinary: Denies: Dysuria Musculoskeletal: Denies: Joint Pain, Joint Tenderness Skin: Denies: Rash, Wounds Neurological: Denies: Numbness, Tingling, Focal weakness Psychiatric: Denies: Anxiety, Depression, Homicidal Ideations, Suicidal Ideations Hematologic/ Lymphatic: Denies: Easy Bruising, Easy Bleeding VTE Information - Inpt Only VTE Present on Admission: No VTE Mechan Device Prophylaxis: None Reason prophylaxis not ordered:: Procedure Not Indicated - On Lovenox Patient Problems: Active and Suspected Problems (Last Updated 01/24/18 @ 16:21 by Luna Zurita MD) Acute Gastroenteritis (Acute) - Physical Exam General: Alert, Oriented x3, Cooperative HEENT: Atraumatic, PERRLA, EOMI, Normocephalic Oral: Dry Mucosa Neck: Supple, No JVD, Negative Carotid Bruits Lungs: Clear to auscultation, Normal air movement, No rhonchi, No wheeze, No rales Cardiovascular: Regular rate, Regular Rhythm, Normal S1, Normal S2, No murmurs Abdomen: Bowel Sounds Present, Soft, Non-Distended, Tender - Mild deep tenderness present right upper and lower quadrant., - - Surgical scar present Extremities: No edema, Capillary Refill Less than 3 Seconds Skin: No rashes, No breakdown Musculoskeletal: No Tenderness to Palpation of Joints or Extremities Neurological: Cranial nerves II-XII grossly intact Psych/Mental Status: Normal Affect, Appropriate Vital Signs Temp Pulse Resp BP Pulse Ox 96.8 F L 74 16 179/107 H 98 07/04/18 07:19 07/04/18 15:13 07/04/18 15:13 07/04/18 15:13 07/04/18 15:13 Oxygen Delivery Method Room Air Weight: 149 lb 7.574 oz Body Mass Index (BMI) 25.6 Laboratory Tests Past 24 Hrs 07/04/18 07/04/18 07/04/18 08:30 08:30 08:30 WBC 6.0 RBC 4.30 Hgb 12.3 Hct 38.8 MCV 90.2 MCH 28.6 MCHC 31.7 L RDW 13.8 RDW Differential 45.2 H Plt Count 313 MPV 8.8 Immature Gran % (Auto) 0.000 Neut % (Auto) 71.9 H Lymph % (Auto) 20.1 [place] % (Auto) 6.7 Eos % (Auto) 1.0 Baso % (Auto) 0.3 Absolute Neuts (auto) 4.3 Absolute Lymphs (auto) 1.20 Total Counted Not Reportable Sodium 143 Potassium 2.2 L* Chloride 100 Carbon Dioxide 34.0 H Anion Gap 9 BUN 6 L Creatinine 0.55 Estim Creat Clear Calc 120.93 Est GFR (MDRD) Af Amer 158 Est GFR (MDRD) Non-Af 131 BUN/Creatinine Ratio 10.8 Glucose 82 Calcium 8.2 L Magnesium Total Bilirubin 0.60 AST 64 H ALT 53 Alkaline Phosphatase 97 Total Protein 7.3 Albumin 3.2 Globulin 4.1 Albumin/Globulin Ratio 0.8 L Lipase 112 Urine Color Urine Clarity Urine pH Ur Specific [place] Urine Protein Urine Glucose (UA) Urine Ketones Urine Occult Blood Urine Nitrite Urine Bilirubin Urine Urobilinogen Ur Leukocyte Esterase Urine RBC Urine WBC Ur Squamous Epith Cells Urine Bacteria Urine Mucus Urine Test Negative 07/04/18 07/04/18 08:30 08:30 WBC RBC Hgb Hct MCV MCH MCHC RDW RDW Differential Plt Count MPV Immature Gran % (Auto) Neut % (Auto) Lymph % (Auto) [place] % (Auto) Eos % (Auto) Baso % (Auto) Absolute Neuts (auto) Absolute Lymphs (auto) Total Counted Sodium Potassium Chloride Carbon Dioxide Anion Gap BUN Creatinine Estim Creat Clear Calc Est GFR (MDRD) Af Amer Est GFR (MDRD) Non-Af BUN/Creatinine Ratio Glucose Calcium Magnesium 1.2 L Total Bilirubin AST ALT Alkaline Phosphatase Total Protein Albumin Globulin Albumin/Globulin Ratio Lipase Urine Color Yellow Urine Clarity Sl. 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 Patient has chronic diarrhea about 2-3 bowel movements per day but it gotten worse, sometimes watery and then semisolid. Patient also has chronic right lower quadrant abdominal discomfort for a few months but started getting cramps on and off for a few days which sometimes lasted for half an hour to 1 hour. Patient denies nausea or vomiting. Denies GI bleed. Patient is tolerating liquid diet at home. No fever or chills. She denies burning micturition, urgency or burning micturition/dysuria but has increased frequency. In ED, basic lab abnormality was K2.2, bicarb 34, anion gap 9, magnesium 1.2. UA is negative, nitrite negative, WBC 0-5 cells, LE 25. CT abdomen was done and shows diffuse fatty infiltration otherwise postsurgical changes of cholecystectomy and small bowel surgery. Transvaginal ultrasound shows follicles in the right ovary. No obvious adnexal mass or complex lesion. Patient is not taking any laxatives. She had Flagyl about 3 months ago. 1. Acute on chronic diarrhea, exact etiology unclear possible viral gastroenteritis: Patient is being admitted to regular MedSurg floor. Vigorous IV fluid rehydration. Stool studies ordered including C. difficile, enteric bacteriology panel, leukocytes and occult blood. 2. Hypokalemia and hypomagnesemia: Secondary to diarrhea. Electrolyte replacement. Monitor electrolytes and replace accordingly. 3. Hypercoagulable disorder: Protein C&S deficiency: Continue Lovenox at home dosage. 4. Short gut syndrome: Start on liquid diet. Lehr Operator consult. Laboratory Results 07/04/18 08:30: WBC 6.0, RBC 4.30, Hgb 12.3, Hct 38.8, MCV 90.2, MCH 28.6, MCHC 31.7 L, RDW 13.8, RDW Differential 45.2 H, Plt Count 313, MPV 8.8, Immature Gran % (Auto) 0.000, Neut % (Auto) 71.9 H, Lymph % (Auto) 20.1, [place] % (Auto) 6.7, Eos % (Auto) 1.0, Baso % (Auto) 0.3, Absolute Neuts (auto) 4.3, Absolute Lymphs (auto) 1.20, Total Counted Not Reportable 07/04/18 08:30: Sodium 143, Potassium 2.2 L*, Chloride 100, Carbon Dioxide 34.0 H, Anion Gap 9, BUN 6 L, Creatinine 0.55, Estim Creat Clear Calc 120.93, Est GFR (MDRD) Af Amer 158, Est GFR (MDRD) Non-Af 131, BUN/Creatinine Ratio 10.8, Glucose 82, Calcium 8.2 L, Total Bilirubin 0.60, AST 64 H, ALT 53, Alkaline Phosphatase 97, Total Protein 7.3, Albumin 3.2, Globulin 4.1, Albumin/Globulin Ratio 0.8 L, Lipase 112 07/04/18 08:30: Urine Test Negative 07/04/18 08:30: Urine Color Yellow, Urine Clarity Sl. Cloudy, Urine pH 6.5, Ur Specific [place] 1.010, Urine Protein Negative, Urine Glucose (UA) Normal, Urine Ketones Negative, Urine Occult Blood 25 H, Urine Nitrite Negative, Urine Bilirubin Negative, Urine Urobilinogen Normal, Ur Leukocyte Esterase 25 H, Urine RBC 0-5 SEEN, Urine WBC 0-5 SEEN, Ur Squamous Epith Cells 0-5 SEEN, Urine Bacteria 0 SEEN, Urine Mucus 0 SEEN 07/04/18 08:30: Magnesium 1.2 L Clinical Impression(s) from Imaging Studies Transvaginal US 07/04/18 08:05 IMPRESSION: Follicles are seen in the right ovary. Abdomen/Pelvis CT 07/04/18 12:49 IMPRESSION: Diffuse fatty infiltration of the liver. Status post cholecystectomy. Status post multiple small bowel surgery. Code Visit Inpatient E&M: 32072 Init Hosp L3
--- NOTE | 2018-07-04 17:26 | ED.RN ---
PT REMOVED [facility], [address] [employer]OTHES.
[2018-07-04 19:14] LABS: Anion Gap 10 (5-15); BUN 4 mg/dL (7-18); BUN/Creat Ratio 7.4 RATIO (10-20); Calcium,Total 7.2 mg/dL (8.5-10.1); Chloride 100 mmol/L (98-107); Creatinine, Serum 0.54 mg/dL (0.55-1.02); EST Glomerular Filtration Rate 135 mL/min (>60); Est Glom Filt Rate - Afr Amer 163 mL/min (>60); Estimated Creatinine Clearance 123.17 ml/min; Glucose 91 mg/dL (74-106); Potassium 2.3 mmol/L (3.5-5.1); Sodium Level 140 mmol/L (136-145)
[2018-07-04] MEDS: Famotidine 20 MG Tablet PO (19:28)
[2018-07-04] MEDS: Acetaminophen 325 MG Tablet 650 MG PO (19:54)
[2018-07-04] MEDS: hydrALAZINE 20 MG/ML Vial 10 MG IV (19:54)
--- NOTE | 2018-07-04 19:55 | NURSING ---
IV hydralazine given @ this time. Lights dimmed in room, patient placed in semi fowlers position and encouraged relaxation techniques to assist in lowering blood pressure.
[2018-07-04] MEDS: Metoprolol Tartrate 5 MG/5 ML Vial IV (21:55)
[2018-07-04] MEDS: Dicyclomine 10 MG Capsule 20 MG PO (21:56)
[2018-07-04] MEDS: Enoxaparin 80 MG/0.8 ML Syringe 70 MG SC (22:17)
[2018-07-04 22:31] LABS: Anion Gap 9 (5-15); BUN 3 mg/dL (7-18); BUN/Creat Ratio 5.8 RATIO (10-20); Calcium,Total 7.2 mg/dL (8.5-10.1); Chloride 102 mmol/L (98-107); Creatinine, Serum 0.51 mg/dL (0.55-1.02); EST Glomerular Filtration Rate 143 mL/min (>60); Est Glom Filt Rate - Afr Amer 173 mL/min (>60); Estimated Creatinine Clearance 130.42 ml/min; Glucose 88 mg/dL (74-106); Potassium 2.4 mmol/L (3.5-5.1); Sodium Level 141 mmol/L (136-145)
[2018-07-05] VITALS (8 sets, daily range): BP systolic 136–162; BP diastolic 85–102; PULSE 62–84; RESP 16; TEMP 36.6–37.2; O2SAT 94–99
[2018-07-05] MEDS: Potassium Chloride 10mEq/100mL 10 MEQ/100 ML IV.SOLN. 100 MEQ IV BOLUS ×3 (00:05→02:33)
[2018-07-05] MEDS: hydrALAZINE 20 MG/ML Vial 10 MG IV (00:07)
[2018-07-05] MEDS: 0.9% NaCl Peripheral Flush Adult/Peds IV ×4 (00:08→08:32)
[2018-07-05] MEDS: Acetaminophen 325 MG Tablet 650 MG PO (02:16)
[2018-07-05] MEDS: Morphine 2 MG/ML Syringe IV ×2 (03:00→08:44)
[2018-07-05] MEDS: Dicyclomine 10 MG Capsule 20 MG PO ×2 (06:03→11:07)
[2018-07-05 06:51] LABS: Absolute Lymphocyte Count 1.39 X10^3/ul (0.83-4.51); Absolute Neutrophil Count 1.5 X10^3/uL (2.0-7.7); Basophil# 0.01 X10^3/uL; Basophil% 0.3 % (0-1); Eosinophil# 0.08 X10^3/uL; Eosinophils% 2.4 % (0-5); Hematocrit 33.6 % (37-47); Hemoglobin 10.7 g/dl (12.0-15.0); Lymphocyte # 1.39 X10^3/ul (4.0); Lymphocyte % 41.4 % (19-41); Mean Corp Hgb Conc 31.8 g/gl (32-36); Mean Corpuscular Hgb 28.7 pg (27.0-32.0); Mean Corpuscular Volume 90.1 fL (81-99); Mean Platelet Vol. 9.2 fl (6.2-12.0); Monocyte# 0.43 X10^3/uL; Monocyte% 12.8 % (0-10); Neutrophil # 1.45 X10^3/uL (2.7-7.7); Neutrophil % 43.1 % (47-70); Platelet Count 273 K/mm3 (150-450); RBC Distribution Width CV 13.9 % (11.6-14.6); RBC Distribution Width SD 44.2 fl (35.1-43.9); Red Blood Count 3.73 M/mm3 (4.2-5.4); White Blood Count 3.4 K/mm3 (4.4-11.0)
[2018-07-05 07:03] LABS: POSITIVE COUNT NO; POSITIVE DIFFERENTIAL NO; POSITIVE MORPHOLOGY NO
[2018-07-05 07:15] LABS: Anion Gap 7 (5-15); BUN 2 mg/dL (7-18); BUN/Creat Ratio 4.4 RATIO (10-20); Calcium,Total 7.5 mg/dL (8.5-10.1); Chloride 103 mmol/L (98-107); Creatinine, Serum 0.46 mg/dL (0.55-1.02); EST Glomerular Filtration Rate 163 mL/min (>60); Est Glom Filt Rate - Afr Amer 197 mL/min (>60); Estimated Creatinine Clearance 144.59 ml/min; Glucose 91 mg/dL (74-106); Potassium 2.6 mmol/L (3.5-5.1); Sodium Level 142 mmol/L (136-145)
--- NOTE | 2018-07-05 07:35 | PCM.PN.HOSP ---
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 Patient was found to have significant electrolyte abnormalities including hypokalemia and hypomagnesemia admitted to a monitored bed for subsequent management Objective: GENERAL: cooperative HEENT: Atraumatic; an area of induration involving right jaw surrounding area of erythema EYES; Anicteric, Normal Conjunctiva NECK; supple, normal thyroid, no distended JVD. RESPIRATORY: Diminished to auscultation bilaterally, CARDIOVASCULAR: Regular S1 S2, no audible murmurs GI: soft, non-tender, normoactive bowel sounds, : No Renal angle tenderness; EXTREMITIES: No edema, no clubbing, no cyanosis. MUSCULOSKELETAL: No Joint Tenderness; no muscle waisting NEURO: Awake; no lateralizing signs. SKIN: Described above PSYCH; Normal affect Vitals/I&O's: Vital Signs Temp Pulse Resp BP Pulse Ox 97.9 F 75 16 136/85 H 99 07/05/18 03:05 07/05/18 03:05 07/05/18 03:05 07/05/18 06:00 07/05/18 03:05 Oxygen Delivery Method Room Air Weight: 67.642 kg Body Mass Index (BMI) 25.6 Intake and Output for Last 24 Hours 07/03/18 07/04/18 07/05/18 23:59 23:59 23:59 Intake Total 2556 / 2556 Balance 2556 / 2556 Microbiology Past 72 Hours 07/04/18 19:00 Stool C. difficile DNA Amplification - Final 07/04/18 19:00 Stool Stool Occult Blood (ASHLI) - Final 07/04/18 19:00 Stool Stool Lactoferrin - Final Laboratory Results 07/04/18 08:30: WBC 6.0, RBC 4.30, Hgb 12.3, Hct 38.8, MCV 90.2, MCH 28.6, MCHC 31.7 L, RDW 13.8, RDW Differential 45.2 H, Plt Count 313, MPV 8.8, Immature Gran % (Auto) 0.000, Neut % (Auto) 71.9 H, Lymph % (Auto) 20.1, [place] % (Auto) 6.7, Eos % (Auto) 1.0, Baso % (Auto) 0.3, Absolute Neuts (auto) 4.3, Absolute Lymphs (auto) 1.20, Total Counted Not Reportable 07/04/18 08:30: Sodium 143, Potassium 2.2 L*, Chloride 100, Carbon Dioxide 34.0 H, Anion Gap 9, BUN 6 L, Creatinine 0.55, Estim Creat Clear Calc 120.93, Est GFR (MDRD) Af Amer 158, Est GFR (MDRD) Non-Af 131, BUN/Creatinine Ratio 10.8, Glucose 82, Calcium 8.2 L, Total Bilirubin 0.60, AST 64 H, ALT 53, Alkaline Phosphatase 97, Total Protein 7.3, Albumin 3.2, Globulin 4.1, Albumin/Globulin Ratio 0.8 L, Lipase 112 07/04/18 08:30: Urine Test Negative 07/04/18 08:30: Urine Color Yellow, Urine Clarity Sl. Cloudy, Urine pH 6.5, Ur Specific [place] 1.010, Urine Protein Negative, Urine Glucose (UA) Normal, Urine Ketones Negative, Urine Occult Blood 25 H, Urine Nitrite Negative, Urine Bilirubin Negative, Urine Urobilinogen Normal, Ur Leukocyte Esterase 25 H, Urine RBC 0-5 SEEN, Urine WBC 0-5 SEEN, Ur Squamous Epith Cells 0-5 SEEN, Urine Bacteria 0 SEEN, Urine Mucus 0 SEEN 07/04/18 08:30: Magnesium 1.2 L 07/04/18 18:30: Sodium 140, Potassium 2.3 L*, Chloride 100, Carbon Dioxide 30.0, Anion Gap 10, BUN 4 L, Creatinine 0.54 L, Estim Creat Clear Calc 123.17, Est GFR (MDRD) Af Amer 163, Est GFR (MDRD) Non-Af 135, BUN/Creatinine Ratio 7.4 L, Glucose 91, Calcium 7.2 L, Magnesium 2.0 07/04/18 21:50: Sodium 141, Potassium 2.4 L*, Chloride 102, Carbon Dioxide 30.0, Anion Gap 9, BUN 3 L, Creatinine 0.51 L, Estim Creat Clear Calc 130.42, Est GFR (MDRD) Af Amer 173, Est GFR (MDRD) Non-Af 143, BUN/Creatinine Ratio 5.8 L, Glucose 88, Calcium 7.2 L 07/05/18 06:30: Sodium 142, Potassium 2.6 L*, Chloride 103, Carbon Dioxide 32.0, Anion Gap 7, BUN 2 L, Creatinine 0.46 L, Estim Creat Clear Calc 144.59, Est GFR (MDRD) Af Amer 197, Est GFR (MDRD) Non-Af 163, BUN/Creatinine Ratio 4.4 L, Glucose 91, Calcium 7.5 L 07/05/18 06:30: WBC 3.4 L, RBC 3.73 L, Hgb 10.7 L, Hct 33.6 L, MCV 90.1, MCH 28.7, MCHC 31.8 L, RDW 13.9, RDW Differential 44.2 H, Plt Count 273, MPV 9.2, Immature Gran % (Auto) 0.000, Neut % (Auto) 43.1 L, Lymph % (Auto) 41.4 H, [place] % (Auto) 12.8 H, Eos % (Auto) 2.4, Baso % (Auto) 0.3, Absolute Neuts (auto) 1.5 L, Absolute Lymphs (auto) 1.39, Total Counted Not Reportable Current Medications Acetaminophen (Tylenol) 650 mg PO Q6H PRN PRN PRN Reason: Non-cardiac pain (mod-severe) Last Admin: 07/05/18 02:16 Dose: 650 mg Hydrocodone Bitart/Acetaminophen (Penn 5mg-325mg) 1 - 2 tablet PO Q6H PRN PRN PRN Reason: Moderate-severe pain Al Hydroxide/Mg Hydroxide (Mylanta Ii) 30 ml PO Q6H PRN PRN PRN Reason: Gastric burning Cephalexin (Keflex) 500 mg PO Q8 [facility] Dicyclomine HCl (Bentyl) 20 mg PO TIDAC [facility] Last Admin: 07/05/18 06:03 Dose: 20 mg Enoxaparin Sodium (Lovenox) 70 mg SC BID [facility] Last Admin: 07/04/18 22:17 Dose: 70 mg Ergocalciferol (Vitamin D) 50,000 unit PO QODAY [facility] Last Admin: 07/04/18 19:27 Dose: 50,000 unit Famotidine (Pepcid) 20 mg PO BID [facility] Last Admin: 07/04/18 19:28 Dose: 20 mg Hydralazine HCl (Apresoline Iv) 10 mg IV Q4H PRN PRN PRN Reason: SBP > 160 Last Admin: 07/05/18 00:07 Dose: 10 mg Potassium Chloride 10 meq/ N/A 100 mls @ 100 mls/hr IV Q1H [facility] Stop: 07/05/18 11:44 Lisinopril (Zestril) 5 mg PO DAILY [facility] Magnesium Oxide (Mag-Ox 400) 400 mg PO BIDCM [facility] Morphine Sulfate () 1 - 2 mg IV Q4H PRN PRN PRN Reason: PAIN Last Admin: 07/05/18 03:00 Dose: 2 mg Multivitamins/Minerals (Multivitamin With Minerals) 1 tablet PO DAILY@0800 [facility] Ondansetron HCl (Zofran) 4 mg IV Q4H PRN PRN PRN Reason: NAUSEA Potassium Chloride (K-Dur) 40 meq PO TIDCM [facility] Last Admin: 07/04/18 19:28 Dose: 40 meq Sodium Chloride () 5 - 15 ml IV UD PRN PRN Reason: SALINE FLUSH Last Admin: 07/05/18 03:01 Dose: 10 ml Medical Necessity - Tobacco Use Smoking Status: Former smoker Tobacco Use: Cigarettes Assessment/Plan All Active Problems (Last Updated 01/24/18 @ 16:21 by Luna Zurita MD) Acute Gastroenteritis (Acute) Pelvic pain (Acute) Hypokalemia (Acute) Hypomagnesemia (Acute) Ileus (Acute) Patient is a 38-year-old lady with multiple comorbidities including protein C deficiency, 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 Patient was found to have significant electrolyte abnormalities including hypokalemia and hypomagnesemia admitted to a monitored bed for subsequent management 1. Abdominal pain nonspecific treated symptomatically CT was unremarkable 2. Short gut syndrome with frequent diarrhea and subsequent electrolyte abnormalities 3. Hypokalemia corrected per protocol 4. Hypomagnesemia corrected per protocol 5. 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 Sjogren's syndrome 6. Facial cellulitis patient started on Keflex 7. Hypertension-blood pressure controlled, home medications continued with dose adjustment as needed Active Medications Acetaminophen (Tylenol) 650 mg PO Q6H PRN PRN PRN Reason: Non-cardiac pain (mod-severe) Last Admin: 07/05/18 02:16 Dose: 650 mg Hydrocodone Bitart/Acetaminophen (Penn 5mg-325mg) 1 - 2 tablet PO Q6H PRN PRN PRN Reason: Moderate-severe pain Al Hydroxide/Mg Hydroxide (Mylanta Ii) 30 ml PO Q6H PRN PRN PRN Reason: Gastric burning Cephalexin (Keflex) 500 mg PO Q8 [facility] Dicyclomine HCl (Bentyl) 20 mg PO TIDAC [facility] Last Admin: 07/05/18 06:03 Dose: 20 mg Enoxaparin Sodium (Lovenox) 70 mg SC BID [facility] Last Admin: 07/04/18 22:17 Dose: 70 mg Ergocalciferol (Vitamin D) 50,000 unit PO QODAY [facility] Last Admin: 07/04/18 19:27 Dose: 50,000 unit Famotidine (Pepcid) 20 mg PO BID [facility] Last Admin: 07/04/18 19:28 Dose: 20 mg Hydralazine HCl (Apresoline Iv) 10 mg IV Q4H PRN PRN PRN Reason: SBP > 160 Last Admin: 07/05/18 00:07 Dose: 10 mg Potassium Chloride 10 meq/ N/A 100 mls @ 100 mls/hr IV Q1H [facility] Stop: 07/05/18 12:29 Lisinopril (Zestril) 5 mg PO DAILY [facility] Magn[facility]ide ([facility]-Ox 400) [facility] Morphine Sulfate () 1 - 2 mg IV Q4H PRN PRN PRN Reason: PAIN Last Admin: 07/05/18 03:00 Dose: 2 mg Multivitamins/Minerals (Multivitamin With Minerals) 1 tablet PO DAILY@0800 [facility] Ondansetron HCl (Zofran) 4 mg IV Q4H PRN PRN PRN Reason: NAUSEA Potassium Chloride (K-Dur) 40 meq PO TIDCM [facility] Last Admin: 07/04/18 19:28 Dose: 40 meq Sodium Chloride () 5 - 15 ml IV UD PRN PRN Reason: SALINE FLUSH Last Admin: 07/05/18 03:01 Dose: 10 ml Clinical Impression(s) from Imaging Studies Transvaginal US 07/04/18 08:05 IMPRESSION: Follicles are seen in the right ovary. Electronically Signed: Steve Gan MD at 10:50 EST , Service support , Abdomen/Pelvis CT 07/04/18 12:49 IMPRESSION: Diffuse fatty infiltration of the liver. Status post cholecystectomy. Status post multiple small bowel surgery. Electronically Signed: Steve Gan MD at 15:27 EST , Service support , Code Visit Inpatient E&M: [id number] Subs Hosp L3
--- NOTE | 2018-07-05 07:39 | PN_ITS ---
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 Patient was found to have significant electrolyte abnormalities including hypokalemia and hypomagnesemia admitted to a monitored bed for subsequent management Objective: GENERAL: cooperative HEENT: Atraumatic; an area of induration involving right jaw surrounding area of erythema EYES; Anicteric, Normal Conjunctiva NECK; supple, normal thyroid, no distended JVD. RESPIRATORY: Diminished to auscultation bilaterally, CARDIOVASCULAR: Regular S1 S2, no audible murmurs GI: soft, non-tender, normoactive bowel sounds, : No Renal angle tenderness; EXTREMITIES: No edema, no clubbing, no cyanosis. MUSCULOSKELETAL: No Joint Tenderness; no muscle waisting NEURO: Awake; no lateralizing signs. SKIN: Described above PSYCH; Normal affect Vitals/I&O's: Vital Signs Temp Pulse Resp BP Pulse Ox 97.9 F 75 16 136/85 H 99 07/05/18 03:05 07/05/18 03:05 07/05/18 03:05 07/05/18 06:00 07/05/18 03:05 Oxygen Delivery Method Room Air Weight: 67.642 kg Body Mass Index (BMI) 25.6 Intake and Output for Last 24 Hours 07/03/18 07/04/18 07/05/18 23:59 23:59 23:59 Intake Total 2556 / 2556 Balance 2556 / 2556 Microbiology Past 72 Hours 07/04/18 19:00 Stool C. difficile DNA Amplification - Final 07/04/18 19:00 Stool Stool Occult Blood (ASHLI) - Final 07/04/18 19:00 Stool Stool Lactoferrin - Final Laboratory Results 07/04/18 08:30: WBC 6.0, RBC 4.30, Hgb 12.3, Hct 38.8, MCV 90.2, MCH 28.6, MCHC 31.7 L, RDW 13.8, RDW Differential 45.2 H, Plt Count 313, MPV 8.8, Immature Gran % (Auto) 0.000, Neut % (Auto) 71.9 H, Lymph % (Auto) 20.1, [place] % (Auto) 6.7, Eos % (Auto) 1.0, Baso % (Auto) 0.3, Absolute Neuts (auto) 4.3, Absolute Lymphs (auto) 1.20, Total Counted Not Reportable 07/04/18 08:30: Sodium 143, Potassium 2.2 L*, Chloride 100, Carbon Dioxide 34.0 H, Anion Gap 9, BUN 6 L, Creatinine 0.55, Estim Creat Clear Calc 120.93, Est GFR (MDRD) Af Amer 158, Est GFR (MDRD) Non-Af 131, BUN/Creatinine Ratio 10.8, Glucose 82, Calcium 8.2 L, Total Bilirubin 0.60, AST 64 H, ALT 53, Alkaline Phosphatase 97, Total Protein 7.3, Albumin 3.2, Globulin 4.1, Albumin/Globulin Ratio 0.8 L, Lipase 112 07/04/18 08:30: Urine Test Negative 07/04/18 08:30: Urine Color Yellow, Urine Clarity Sl. Cloudy, Urine pH 6.5, Ur Specific [place] 1.010, Urine Protein Negative, Urine Glucose (UA) Normal, Urine Ketones Negative, Urine Occult Blood 25 H, Urine Nitrite Negative, Urine Bilirubin Negative, Urine Urobilinogen Normal, Ur Leukocyte Esterase 25 H, Urine RBC 0-5 SEEN, Urine WBC 0-5 SEEN, Ur Squamous Epith Cells 0-5 SEEN, Urine Bacteria 0 SEEN, Urine Mucus 0 SEEN 07/04/18 08:30: Magnesium 1.2 L 07/04/18 18:30: Sodium 140, Potassium 2.3 L*, Chloride 100, Carbon Dioxide 30.0, Anion Gap 10, BUN 4 L, Creatinine 0.54 L, Estim Creat Clear Calc 123.17, Est GFR (MDRD) Af Amer 163, Est GFR (MDRD) Non-Af 135, BUN/Creatinine Ratio 7.4 L, Glucose 91, Calcium 7.2 L, Magnesium 2.0 07/04/18 21:50: Sodium 141, Potassium 2.4 L*, Chloride 102, Carbon Dioxide 30.0, Anion Gap 9, BUN 3 L, Creatinine 0.51 L, Estim Creat Clear Calc 130.42, Est GFR (MDRD) Af Amer 173, Est GFR (MDRD) Non-Af 143, BUN/Creatinine Ratio 5.8 L, Glucose 88, Calcium 7.2 L 07/05/18 06:30: Sodium 142, Potassium 2.6 L*, Chloride 103, Carbon Dioxide 32.0, Anion Gap 7, BUN 2 L, Creatinine 0.46 L, Estim Creat Clear Calc 144.59, Est GFR (MDRD) Af Amer 197, Est GFR (MDRD) Non-Af 163, BUN/Creatinine Ratio 4.4 L, Glucose 91, Calcium 7.5 L 07/05/18 06:30: WBC 3.4 L, RBC 3.73 L, Hgb 10.7 L, Hct 33.6 L, MCV 90.1, MCH 28.7, MCHC 31.8 L, RDW 13.9, RDW Differential 44.2 H, Plt Count 273, MPV 9.2, Immature Gran % (Auto) 0.000, Neut % (Auto) 43.1 L, Lymph % (Auto) 41.4 H, [place] % (Auto) 12.8 H, Eos % (Auto) 2.4, Baso % (Auto) 0.3, Absolute Neuts (auto) 1.5 L, Absolute Lymphs (auto) 1.39, Total Counted Not Reportable Current Medications Acetaminophen (Tylenol) 650 mg PO Q6H PRN PRN PRN Reason: Non-cardiac pain (mod-severe) Last Admin: 07/05/18 02:16 Dose: 650 mg Hydrocodone Bitart/Acetaminophen ([place] 5mg-325mg) 1 - 2 tablet PO Q6H PRN PRN PRN Reason: Moderate-severe pain Al Hydroxide/Mg Hydroxide (Mylanta Ii) 30 ml PO Q6H PRN PRN PRN Reason: Gastric burning Cephalexin (Keflex) 500 mg PO Q8 [facility] Dicyclomine HCl (Bentyl) 20 mg PO TIDAC [facility] Last Admin: 07/05/18 06:03 Dose: 20 mg Enoxaparin Sodium (Lovenox) 70 mg SC BID [facility] Last Admin: 07/04/18 22:17 Dose: 70 mg Ergocalciferol (Vitamin D) 50,000 unit PO QODAY [facility] Last Admin: 07/04/18 19:27 Dose: 50,000 unit Famotidine (Pepcid) 20 mg PO BID [facility] Last Admin: 07/04/18 19:28 Dose: 20 mg Hydralazine HCl (Apresoline Iv) 10 mg IV Q4H PRN PRN PRN Reason: SBP > 160 Last Admin: 07/05/18 00:07 Dose: 10 mg Potassium Chloride 10 meq/ N/A 100 mls @ 100 mls/hr IV Q1H [facility] Stop: 07/05/18 11:44 Lisinopril (Zestril) 5 mg PO DAILY [facility] Magnesium Oxide (Mag-Ox 400) 400 mg PO BIDCM [facility] Morphine Sulfate () 1 - 2 mg IV Q4H PRN PRN PRN Reason: PAIN Last Admin: 07/05/18 03:00 Dose: 2 mg Multivitamins/Minerals (Multivitamin With Minerals) 1 tablet PO DAILY@0800 [facility] Ondansetron HCl (Zofran) 4 mg IV Q4H PRN PRN PRN Reason: NAUSEA Potassium Chloride (K-Dur) 40 meq PO TIDCM [facility] Last Admin: 07/04/18 19:28 Dose: 40 meq Sodium Chloride () 5 - 15 ml IV UD PRN PRN Reason: SALINE FLUSH Last Admin: 07/05/18 03:01 Dose: 10 ml Medical Necessity - Tobacco Use Smoking Status: Former smoker Tobacco Use: Cigarettes Assessment/Plan All Active Problems (Last Updated 01/24/18 @ 16:21 by Luna Zurita MD) Acute Gastroenteritis (Acute) Pelvic pain (Acute) Hypokalemia (Acute) Hypomagnesemia (Acute) Ileus (Acute) Patient is a 38-year-old lady with multiple comorbidities including protein C deficiency, 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 Patient was found to have significant electrolyte abnormalities including hypokalemia and hypomagnesemia admitted to a monitored bed for subsequent management 1. Abdominal pain nonspecific treated symptomatically CT was unremarkable 2. Short gut syndrome with frequent diarrhea and subsequent electrolyte abnormalities 3. Hypokalemia corrected per protocol 4. Hypomagnesemia corrected per protocol 5. 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 Sjogren's syndrome 6. Facial cellulitis patient started on Keflex 7. Hypertension-blood pressure controlled, home medications continued with dose adjustment as needed Active Medications Acetaminophen (Tylenol) 650 mg PO Q6H PRN PRN PRN Reason: Non-cardiac pain (mod-severe) Last Admin: 07/05/18 02:16 Dose: 650 mg Hydrocodone Bitart/Acetaminophen (Stanley 5mg-325mg) 1 - 2 tablet PO Q6H PRN PRN PRN Reason: Moderate-severe pain Al Hydroxide/Mg Hydroxide (Mylanta Ii) 30 ml PO Q6H PRN PRN PRN Reason: Gastric burning Cephalexin (Keflex) 500 mg PO Q8 [facility] Dicyclomine HCl (Bentyl) 20 mg PO TIDAC [facility] Last Admin: 07/05/18 06:03 Dose: 20 mg Enoxaparin Sodium (Lovenox) 70 mg SC BID [facility] Last Admin: 07/04/18 22:17 Dose: 70 mg Ergocalciferol (Vitamin D) 50,000 unit PO QODAY [facility] Last Admin: 07/04/18 19:27 Dose: 50,000 unit Famotidine (Pepcid) 20 mg PO BID [facility] Last Admin: 07/04/18 19:28 Dose: 20 mg Hydralazine HCl (Apresoline Iv) 10 mg IV Q4H PRN PRN PRN Reason: SBP > 160 Last Admin: 07/05/18 00:07 Dose: 10 mg Potassium Chloride 10 meq/ N/A 100 mls @ 100 mls/hr IV Q1H [facility] Stop: 07/05/18 12:29 Lisinopril (Zestril) 5 mg PO DAILY [facility] Magnesium Oxide (Mag-Ox 400) [facility] Morphine Sulfate () 1 - 2 mg IV Q4H PRN PRN PRN Reason: PAIN Last Admin: 07/05/18 03:00 Dose: 2 mg Multivitamins/Minerals (Multivitamin With Minerals) 1 tablet PO DAILY@0800 [facility] Ondansetron HCl (Zofran) 4 mg IV Q4H PRN PRN PRN Reason: NAUSEA Potassium Chloride (K-Dur) 40 meq PO TIDCM [facility] Last Admin: 07/04/18 19:28 Dose: 40 meq Sodium Chloride () 5 - 15 ml IV UD PRN PRN Reason: SALINE FLUSH Last Admin: 07/05/18 03:01 Dose: 10 ml Clinical Impression(s) from Imaging Studies Transvaginal US 07/04/18 08:05 IMPRESSION: Follicles are seen in the right ovary. Electronically Signed: Steve Gan MD at 10:50 EST , Service support , Abdomen/Pelvis CT 07/04/18 12:49 IMPRESSION: Diffuse fatty infiltration of the liver. Status post cholecystectomy. Status post multiple small bowel surgery. Electronically Signed: Steve Gan MD at 15:27 EST , Service support , Code Visit Inpatient E&M: [id number] Subs Hosp L3
[2018-07-05] MEDS: Lisinopril 5 MG Tablet PO (08:32)
[2018-07-05] MEDS: Multivitamins,Ther W-Minerals Tablet 1 TABLET PO (08:32)
[2018-07-05] MEDS: Famotidine 20 MG Tablet PO (08:32)
[2018-07-05] MEDS: Cephalexin 500 MG Capsule PO ×2 (08:37→14:20)
[2018-07-05] MEDS: Magnesium Oxide 400 MG Tablet PO (08:37)
[2018-07-05] MEDS: Enoxaparin 80 MG/0.8 ML Syringe 70 MG SC (08:45)
--- NOTE | 2018-07-05 10:57 | NS ---
Please provide chicken salad or turkey or ham sandwich between meals. Pt has short bowel syndrome and eats 6 small meals and snacks a day.
[2018-07-05 13:14] LABS: Potassium 3.3 mmol/L (3.5-5.1)
--- NOTE | 2018-07-05 13:31 | CASEMGMT ---
Social Work Met with patient in room for advanced care planning and general assessment. Patient reporting to live at home with spouse and two teenage children. Patient reporting no financial concerns. Patient denies any diagnosis of depression/anxiety but is reporting to get anxious at times but to not currently be taking any medication and reporting to be able to manage anxiety on own. Patient denies any resources for anxiety. Patient denies any suicidal thoughts or ideations. Patient reporting no DME needs or equipment at home. Patient reporting to have [facility] in [place] as primary pharmacy. Patient reporting to be interested in completing Health Care Power of Senior Formulation Scientist paperwork as well as Living Will, both documents completed with patient. Original HCPOA and LW provided to patient and copy placed on patient chart. Patient plans to return to home with family at time of discharge. Support given. Sánchez CHU, BRADLEY
--- NOTE | 2018-07-05 16:38 | DCINST_ITS ---
- Discharge Diagnoses Current Active Problems: Current Active and Chronic Problems (Last Updated 01/24/18 @ 16:21 by Luna Zurita MD) Acute Gastroenteritis (Acute) You will use the following diet at home:: No restrictions Allergies/Adverse Reactions: Allergies adhesive Allergy (Verified 07/04/18 07:16) Itching amoxicillin [Amoxicillin] Allergy (Verified 07/04/18 07:16) Hives Penicillins Allergy (Verified 07/04/18 07:16) Hives Medications to take at Discharge RX: Enoxaparin [Lovenox] 70 mg SC BID 10/13/13 RX: Ergocalciferol [Vitamin D] 50,000 unit PO QODAY 10/09/14 RX: Calcium Carbonate [Tums] 500 mg PO TIDCM 04/27/16 RX: L.acidoph,Paracasei, B.lactis [Probiotic] 1 cap PO DAILY 04/27/16 RX: Multivit with Calcium,Iron,Min [Multiple Vitamins For Women] 3 tab PO DAILY 04/27/16 RX: Lisinopril [Zestril] 5 mg PO DAILY 30 Days #30 tab 11/20/17 RX: Potassium Chloride [K-Dur] 20 meq PO TID 30 Days #90 tab 11/20/17 magnesium L-lactate ER 84 mg tablet,extended release 252 mg PO TID tab 01/24/18 psyllium husk 0.4 gram capsule 0.4 g PO DAILY 01/24/18 Primary Care Physician: José Luis Motley MD [Primary Care Provider] - Test Results: Test results from this visit will be discussed in further detail at your follow- up appointment, if applicable. Proposed Discharge Date: 07/05/18
--- NOTE | 2018-07-05 16:40 | PCM.DC.SUM ---
Discharge Date and Diagnosis - Problem List Patient Problems: Active and Suspected Problems (Last Updated 01/24/18 @ 16:21 by Luna Zurita MD) Acute Gastroenteritis (Acute) Date of Admission: 07/04/18 Date of Discharge: 07/05/18 - Primary Discharge Diagnosis Active and Suspected Problems (Last Updated 01/24/18 @ 16:21 by Luna Zurita MD) Acute Gastroenteritis (Acute) - Secondary Discharge Diagnosis Chronic Problems (Last Updated 01/24/18 @ 16:21 by Luna Zurita MD) Short gut syndrome (Chronic) Hypercoagulable state, primary (Chronic) Hospital Course and Treatment Imaging Results: Clinical Impression(s) from Imaging Studies Transvaginal US 07/04/18 08:05 IMPRESSION: Follicles are seen in the right ovary. Electronically Signed: Steve Gan MD at 10:50 EST , Service support , Abdomen/Pelvis CT 07/04/18 12:49 IMPRESSION: Diffuse fatty infiltration of the liver. Status post cholecystectomy. Status post multiple small bowel surgery. 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 Patient was found to have significant electrolyte abnormalities including hypokalemia and hypomagnesemia admitted to a monitored bed for subsequent management. Patient requested to be discharged home just a day after admission. K level at discharge was 3.3 instructed to follow up with PCP on 07/07/18 for repeat K 1. Abdominal pain nonspecific treated symptomatically CT was unremarkable 2. Short gut syndrome with frequent diarrhea and subsequent electrolyte abnormalities 3. Hypokalemia corrected per protocol 4. Hypomagnesemia corrected per protocol 5. Hypercoagulable disorder with protein BOTTLE LABELER deficiency patient is on SC Lovenox therapeutic dose at home did continue 6. Sjogren's syndrome 6. Facial cellulitis patient started on Keflex 7. Hypertension-blood pressure controlled, home medications continued with dose adjustment as needed Patient Problems: Active and Suspected Problems (Last Updated 01/24/18 @ 16:21 by Luna uZrita MD) Acute Gastroenteritis (Acute) - Physical Exam General: Alert Neck: Supple Cardiovascular: Regular rate, Regular Rhythm Psych/Mental Status: Normal Affect Vital Signs Temp Pulse Resp BP Pulse Ox 98.0 F 62 16 146/87 H 99 07/05/18 09:05 07/05/18 09:05 07/05/18 09:05 07/05/18 09:05 07/05/18 09:05 Oxygen Delivery Method Room Air Weight: 67.64 kg Body Mass Index (BMI) 25.6 Intake and Output for Last 24 Hours 07/03/18 07/04/18 07/05/18 23:59 23:59 23:59 Intake Total 2556 / 2556 Balance 2556 / 2556 Microbiology Past 72 Hours 07/04/18 19:00 Enteric Bacteriology - Final Stool 07/04/18 19:00 C. difficile DNA Amplification - Final Stool 07/04/18 19:00 Stool Occult Blood (ASHLI) - Final Stool 07/04/18 19:00 Stool Lactoferrin - Final Stool Laboratory Tests Past 24 Hrs 07/04/18 07/04/18 07/05/18 18:30 21:50 06:30 WBC RBC Hgb Hct MCV MCH MCHC RDW RDW Differential Plt Count MPV Immature Gran % (Auto) Neut % (Auto) Lymph % (Auto) Sunflower % (Auto) Eos % (Auto) Baso % (Auto) Absolute Neuts (auto) Absolute Lymphs (auto) Total Counted Sodium 140 141 142 Potassium 2.3 L* 2.4 L* 2.6 L* Chloride 100 102 103 Carbon Dioxide 30.0 30.0 32.0 Anion Gap 10 9 7 BUN 4 L 3 L 2 L Creatinine 0.54 L 0.51 L 0.46 L Estim Creat Clear Calc 123.17 130.42 144.59 Est GFR (MDRD) Af Amer 163 173 197 Est GFR (MDRD) Non-Af 135 143 163 BUN/Creatinine Ratio 7.4 L 5.8 L 4.4 L Glucose 91 88 91 Calcium 7.2 L 7.2 L 7.5 L Magnesium 2.0 07/05/18 07/05/18 06:30 12:42 WBC 3.4 L RBC 3.73 L Hgb 10.7 L Hct 33.6 L MCV 90.1 MCH 28.7 MCHC 31.8 L RDW 13.9 RDW Differential 44.2 H Plt Count 273 MPV 9.2 Immature Gran % (Auto) 0.000 Neut % (Auto) 43.1 L Lymph % (Auto) 41.4 H Sunflower % (Auto) 12.8 H Eos % (Auto) 2.4 Baso % (Auto) 0.3 Absolute Neuts (auto) 1.5 L Absolute Lymphs (auto) 1.39 Total Counted Not Reportable Sodium Potassium 3.3 L Chloride Carbon Dioxide Anion Gap BUN Creatinine Estim Creat Clear Calc Est GFR (MDRD) Af Amer Est GFR (MDRD) Non-Af BUN/Creatinine Ratio Glucose Calcium Magnesium Discharge Diet: No Restrictions Home Medications: Medications to take at Discharge Enoxaparin [Lovenox] 70 mg SC BID 10/13/13 Ergocalciferol [Vitamin D] 50,000 unit PO QODAY 10/09/14 Calcium Carbonate [Tums] 500 mg PO TIDCM 04/27/16 L.acidoph,Paracasei, B.lactis [Probiotic] 1 cap PO DAILY 04/27/16 Multivit with Calcium,Iron,Min [Multiple Vitamins For Women] 3 tab PO DAILY 04/27/16 Lisinopril [Zestril] 5 mg PO DAILY 30 Days #30 tab 11/20/17 Potassium Chloride [K-Dur] 20 meq PO TID 30 Days #90 tab 11/20/17 magnesium L-lactate ER 84 mg tablet,extended release 252 mg PO TID tab 01/24/18 psyllium husk 0.4 gram capsule 0.4 g PO DAILY 01/24/18 Primary Care Physician: José Luis Motley MD [Primary Care Provider] - Disposition: Home Minutes spent on discharge:: 35 Patient Condition:: Stable Medical Necessity - Tobacco Use Smoking Status: Former smoker Tobacco Use: Cigarettes Meaningful Use Info Meaningful Use Diagnoses (Choose all that apply): None applicable Code Visit OBSV E&M: 50732 Observation care discharge
--- NOTE | 2018-07-05 16:48 | DS.PCM_ITS ---
Discharge Date and Diagnosis - Problem List Patient Problems: Active and Suspected Problems (Last Updated 01/24/18 @ 16:21 by Luna Zurita MD) Acute Gastroenteritis (Acute) Date of Admission: 07/04/18 Date of Discharge: 07/05/18 - Primary Discharge Diagnosis Active and Suspected Problems (Last Updated 01/24/18 @ 16:21 by Luna Zurita MD) Acute Gastroenteritis (Acute) - Secondary Discharge Diagnosis Chronic Problems (Last Updated 01/24/18 @ 16:21 by Luna Zurita MD) Short gut syndrome (Chronic) Hypercoagulable state, primary (Chronic) Hospital Course and Treatment Imaging Results: Clinical Impression(s) from Imaging Studies Transvaginal US 07/04/18 08:05 IMPRESSION: Follicles are seen in the right ovary. Electronically Signed: Steve Gan MD at 10:50 EST , Service support , Abdomen/Pelvis CT 07/04/18 12:49 IMPRESSION: Diffuse fatty infiltration of the liver. Status post cholecystectomy. Status post multiple small bowel surgery. 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 Patient was found to have significant electrolyte abnormalities including hypokalemia and hypomagnesemia admitted to a monitored bed for subsequent management. Patient requested to be discharged home just a day after admission. K level at discharge was 3.3 instructed to follow up with PCP on 07/07/18 for repeat K 1. Abdominal pain nonspecific treated symptomatically CT was unremarkable 2. Short gut syndrome with frequent diarrhea and subsequent electrolyte abnormalities 3. Hypokalemia corrected per protocol 4. Hypomagnesemia corrected per protocol 5. Hypercoagulable disorder with protein IRON HANDLER deficiency patient is on SC Lovenox therapeutic dose at home did continue 6. Sjogren's syndrome 6. Facial cellulitis patient started on Keflex 7. Hypertension-blood pressure controlled, home medications continued with dose adjustment as needed Patient Problems: Active and Suspected Problems (Last Updated 01/24/18 @ 16:21 by Luna Zurita MD) Acute Gastroenteritis (Acute) - Physical Exam General: Alert Neck: Supple Cardiovascular: Regular rate, Regular Rhythm Psych/Mental Status: Normal Affect Vital Signs Temp Pulse Resp BP Pulse Ox 98.0 F 62 16 146/87 H 99 07/05/18 09:05 07/05/18 09:05 07/05/18 09:05 07/05/18 09:05 07/05/18 09:05 Oxygen Delivery Method Room Air Weight: 67.64 kg Body Mass Index (BMI) 25.6 Intake and Output for Last 24 Hours 07/03/18 07/04/18 07/05/18 23:59 23:59 23:59 Intake Total 2556 / 2556 Balance 2556 / 2556 Microbiology Past 72 Hours 07/04/18 19:00 Enteric Bacteriology - Final Stool 07/04/18 19:00 C. difficile DNA Amplification - Final Stool 07/04/18 19:00 Stool Occult Blood (ASHLI) - Final Stool 07/04/18 19:00 Stool Lactoferrin - Final Stool Laboratory Tests Past 24 Hrs 07/04/18 07/04/18 07/05/18 18:30 21:50 06:30 WBC RBC Hgb Hct MCV MCH MCHC RDW RDW Differential Plt Count MPV Immature Gran % (Auto) Neut % (Auto) Lymph % (Auto) Faulk % (Auto) Eos % (Auto) Baso % (Auto) Absolute Neuts (auto) Absolute Lymphs (auto) Total Counted Sodium 140 141 142 Potassium 2.3 L* 2.4 L* 2.6 L* Chloride 100 102 103 Carbon Dioxide 30.0 30.0 32.0 Anion Gap 10 9 7 BUN 4 L 3 L 2 L Creatinine 0.54 L 0.51 L 0.46 L Estim Creat Clear Calc 123.17 130.42 144.59 Est GFR (MDRD) Af Amer 163 173 197 Est GFR (MDRD) Non-Af 135 143 163 BUN/Creatinine Ratio 7.4 L 5.8 L 4.4 L Glucose 91 88 91 Calcium 7.2 L 7.2 L 7.5 L Magnesium 2.0 07/05/18 07/05/18 06:30 12:42 WBC 3.4 L RBC 3.73 L Hgb 10.7 L Hct 33.6 L MCV 90.1 MCH 28.7 MCHC 31.8 L RDW 13.9 RDW Differential 44.2 H Plt Count 273 MPV 9.2 Immature Gran % (Auto) 0.000 Neut % (Auto) 43.1 L Lymph % (Auto) 41.4 H Faulk % (Auto) 12.8 H Eos % (Auto) 2.4 Baso % (Auto) 0.3 Absolute Neuts (auto) 1.5 L Absolute Lymphs (auto) 1.39 Total Counted Not Reportable Sodium Potassium 3.3 L Chloride Carbon Dioxide Anion Gap BUN Creatinine Estim Creat Clear Calc Est GFR (MDRD) Af Amer Est GFR (MDRD) Non-Af BUN/Creatinine Ratio Glucose Calcium Magnesium Discharge Diet: No Restrictions Home Medications: Medications to take at Discharge Enoxaparin [Lovenox] 70 mg SC BID 10/13/13 Ergocalciferol [Vitamin D] 50,000 unit PO QODAY 10/09/14 Calcium Carbonate [Tums] 500 mg PO TIDCM 04/27/16 L.acidoph,Paracasei, B.lactis [Probiotic] 1 cap PO DAILY 04/27/16 Multivit with Calcium,Iron,Min [Multiple Vitamins For Women] 3 tab PO DAILY 04/27/16 Lisinopril [Zestril] 5 mg PO DAILY 30 Days #30 tab 11/20/17 Potassium Chloride [K-Dur] 20 meq PO TID 30 Days #90 tab 11/20/17 magnesium L-lactate ER 84 mg tablet,extended release 252 mg PO TID tab 01/24/18 psyllium husk 0.4 gram capsule 0.4 g PO DAILY 01/24/18 Primary Care Physician: José Luis Motley MD [Primary Care Provider] - Disposition: Home Minutes spent on discharge:: 35 Patient Condition:: Stable Medical Necessity - Tobacco Use Smoking Status: Former smoker Tobacco Use: Cigarettes Meaningful Use Info Meaningful Use Diagnoses (Choose all that apply): None applicable Code Visit OBSV E&M: 38847 Observation care discharge
== END 2018-07-05 16:50 | disposition home or self-care (01) ==
LOC: ED 11:26 → MS3 07-05 07:08
PROVIDERS: Family Medicine; Admitting Provider Internal Medicine; Emergency Provider Emergency Medicine; Family Provider Family Medicine; PCP Family Medicine; Visit Provider Internal Medicine
DX: K52.9 Noninfective gastroenteritis and colitis, unspecified (principal); K91.2 Postsurgical malabsorption, not elsewhere classified; D68.59 Other primary thrombophilia; E87.6 Hypokalemia; E83.42 Hypomagnesemia; I10 Essential (primary) hypertension; L03.211 Cellulitis of face; M35.00 Sjogren syndrome, unspecified; Z79.899 Other long term (current) drug therapy; Z87.891 Personal history of nicotine dependence; K76.0 Fatty (change of) liver, not elsewhere classified
CPT/HCPCS: 36415; 74177; 76830; 80048; 80053; 81001; 81025; 82274; 83630; 83690; 83735; 84132; 85025; 87493; 87506; 93005; 96361; 96372; 96374; 96375; 96376; 97802; 99218; 99285; J7030; J7040; Q9967; A4216; G0378; J2405

== ENCOUNTER 2018-08-06 16:45 | Emergency (ER) | payer MEDICAID, SELFPAY ==
[2018-07-04 17:36] VITALS: BMI 25.6
[2018-08-06 16:46] VITALS: BP 159/110; PULSE 78; RESP 15; TEMP 36.8; O2SAT 98; BMI 26.7
--- NOTE | 2018-08-06 17:37 | CT_ITS ---
STUDY: CT ABDOMEN AND PELVIS WITH CONTRAST REASON FOR EXAM: Female, 38 years old. Abdominal pain. Short gut syndrome. RADIATION DOSAGE (If Supplied By Facility): CTDIvol = ( 12.84 ) mGy, DLP = ( 584.95 ) mGycm TECHNIQUE: Transaxial images were obtained from the dome of the diaphragm to the symphysis pubis without oral contrast. Isovue 300 100ml IV/Oral was administered. Sagittal and coronal images were reconstructed. Individualized dose optimization techniques were used for this CT. COMPARISON: CT of the abdomen and pelvis, July 04, 2018. FINDINGS: The visualized lung bases are unremarkable. The visualized portions of the heart are within normal limits. The liver is enlarged and diffusely fatty infiltrated. There is focal fatty sparing in the portal hilum. There are surgical clips in the gallbladder fossa consistent with a prior cholecystectomy. Normal spleen. Normal pancreas. Normal bilateral adrenal glands. Normal right kidney. Normal left kidney. Normal visualized ureters. Normal visualized stomach. There are multiple dilated loops of small bowel containing fluid. Focally area of dilated bowel in the left upper quadrant measuring 9.1 x 5.5 x 8.3 cm with associated surgical changes. There is no evidence of mass or obstruction. And fluid is seen throughout the colon. The appendix is visualized and appears normal. There is diffuse atherosclerotic calcification of the abdominal aorta, without a demonstrated aneurysm. Normal inferior vena cava. Normal retroperitoneum. Normal urinary bladder. Uterus is anteverted and tilted to the right. There is mild prominence of the endometrium which measures 1.8 cm in thickness. Correlate with patient's menstrual history. There is no adnexal mass. Follicles are noted in the right ovary. No pelvic lymphadenopathy. No free air or free fluid is seen within the peritoneal cavity. Small nodular densities seen in the anterior abdominal wall, markedly smaller and less well-defined suggesting resolution of postoperative hematoma. Normal osseous structures. CT/Abdomen/Pelvis WITH Contrast IMPRESSION: 1. Dilatation of small bowel and colon with multiple air-fluid levels most suggestive of ileus. There is no evidence of obstruction. 2. Endometrial prominence. Correlate with menstrual cycle. 3. Enlarged fatty infiltrated liver without focal mass. 4. Partial resolution of the soft tissue densities seen in the anterior abdominal wall. Electronically Signed: David Hernandez DO at 20:11 EDT Tel [phone], Service support ,
[2018-08-06] MEDS: Ondansetron 4 MG/2 ML Vial IV (18:06)
[2018-08-06] MEDS: Morphine 4 MG/ML Syringe IV (18:06)
[2018-08-06] MEDS: 0.9% Normal Saline 1,000 ML 150 ML IV (18:07)
[2018-08-06 18:08] LABS: Absolute Neutrophil Count 2.1 X10^3/uL (2.0-7.7); Basophil# 0.03 X10^3/uL; Basophil% 0.7 % (0-1); Eosinophil# 0.14 X10^3/uL; Eosinophils% 3.2 % (0-5); Lymphocyte % 38.7 % (19-41); Mean Corp Hgb Conc 31.4 g/gl (32-36); Mean Corpuscular Hgb 28.6 pg (27.0-32.0); Mean Corpuscular Volume 90.9 fL (81-99); Monocyte% 9.1 % (0-10); Neutrophil # 2.12 X10^3/uL (2.7-7.7); Neutrophil % 48.3 % (47-70); Platelet Count 237 K/mm3 (150-450); RBC Distribution Width CV 13.4 % (11.6-14.6); RBC Distribution Width SD 43.5 fl (35.1-43.9); Red Blood Count 3.85 M/mm3 (4.2-5.4); White Blood Count 4.4 K/mm3 (4.4-11.0)
[2018-08-06 18:12] VITALS: BP 173/105; PULSE 68; RESP 14; TEMP 36.7; O2SAT 98
[2018-08-06 18:17] LABS: POSITIVE COUNT NO; POSITIVE DIFFERENTIAL NO; POSITIVE MORPHOLOGY NO
[2018-08-06 18:24] LABS: Anion Gap 4 (5-15); BUN 5 mg/dL (7-18); BUN/Creat Ratio 9.6 RATIO (10-20); Calcium,Total 7.9 mg/dL (8.5-10.1); Chloride 111 mmol/L (98-107); Creatinine, Serum 0.52 mg/dL (0.55-1.02); EST Glomerular Filtration Rate 140 mL/min (>60); Est Glom Filt Rate - Afr Amer 170 mL/min (>60); Estimated Creatinine Clearance 127.91 ml/min; Glucose 82 mg/dL (74-106); Sodium Level 141 mmol/L (136-145)
[2018-08-06 18:30] LABS: Pregnancy, Serum, hCG Quali. NEGATIVE Negative (0-9 Nonpreg)
[2018-08-06 18:34] LABS: Bacteria 0 SEEN /hpf (None Seen); Mucous, Urine 0 SEEN /hpf (<or=2+)
[2018-08-06 18:42] LABS: Color, Urine Amber (Yellow); Glucose, Dipstick Normal (Normal); Ketone-Dipstick Negative (Negative); Leukocyte Esterase-Dipstick 25 /ul (Negative); Nitrite-Dipstick Negative (Negative); Occult Blood-Urine 250 /ul (Negative); Protein-Dipstick 30 mg/dl (Negative); Urine Bilirubin Dipstick Negative (Negative); Urine Clarity Cloudy (Clear); Urine Urobilinogen Normal (Normal)
[2018-08-06 18:53] LABS: Red Blood Cells-Urine > 100 SEEN /hpf (0-5); Squamous Epithelial Cells - UA 0-5 SEEN /hpf (5-10); White Blood Cells 0-5 SEEN /hpf (0-5)
[2018-08-06 20:10] VITALS: BP 184/106; PULSE 128; RESP 14; TEMP 36.5
[2018-08-06 20:26] VITALS: BP 184/106; RESP 18; TEMP 36.5
--- NOTE | 2018-08-06 21:25 | ED.VISSUMM ---
- ER Visit Summary Date of Service: 08/06/18 Chief Complaint: Abdominal pain History of Present Illness: The patient is a 38 F who reports abdominal pain today. She points to the left lower quadrant states that wraps around into her left back. She describes as an aching sensation. She has had nausea and vomiting. She has chronic diarrhea secondary to short gut syndrome. She did have a bowel resection previously. She states she has had some chills but no fever. She was unable take her medication today. Physical Examination: Vital signs significant for blood pressure 139/110, otherwise unremarkable. Patient is lying in bed. She appears ill but no acute distress. Head neck examination is normal. Heart is regular rate and rhythm. Lungs sounds are clear. Abdomen is soft with mild left lower quadrant tenderness. There is no guarding or rebound. Hypoactive but present bowel sounds are noted. There is no CVA tenderness. Test Results: CBC was normal white count and differential. Hemoglobin is 11. Potassium on chemistry studies is 3.0. Patient was admitted a month ago with potassium levels in the low 2 range. She was 3.3 on discharge. Urinalysis shows RBCs, but patient is currently on her menses. test is negative. Emergency Department Course and Treatment: Patient was given potassium orally along with morphine, Zofran, and IV fluids. CT the abdomen pelvis with contrast shows dilatation of the small bowel and colon with some air-fluid levels suggestive of an ileus. There is no bowel obstruction. On repeat evaluation patient is resting comfortably. Although nursing staff has a heart rate documented in the 120s, heart rate is 69 at the time of my exam. Patient states that she does feel improved. Abdomen is soft with no tenderness. She does have active bowel sounds. At this time patient is requesting discharge to home. She will follow bland diet and we will give her Reglan and Bentyl. If she worsens she is to return for repeat exam. She voices understanding. Treatment Plan: [] Disposition: Discharge Impression: 1. Abdominal pain 2. Mild ileus This note was generated with [employer]en[employer] software. It may contain incorrect words, spelling, and punctuation that were not noted in review of the chart prior to signing ED Disposition - Plan for ED Patient: Referrals: José Luis Motley MD [Primary Care Provider] -
--- NOTE | 2018-08-06 21:27 | ED.DEP ---
ED Disposition - Plan for ED Patient: Disposition: Home or Assisted Living Instructions: ED Gastroenteritis Viral, Ileus Prescriptions: Dicyclomine HCl [Bentyl] 20 mg PO TIDAC PRN #20 capsule PRN Reason: Pain Metoclopramide [Reglan] 10 mg PO 4X/DAY PRN #20 tablet PRN Reason: Nausea Referrals: José Luis Motley MD [Primary Care Provider] - 5-7 Days
[2018-08-06 21:47] VITALS: BP 169/111; PULSE 69; RESP 16; O2SAT 99
--- NOTE | 2018-08-06 21:48 | ED.RN ---
pt bp upon discharge was 169/117, dr. campbell made aware. pt is instructed to take meds when she gets home. pt has not had today's dose.
== END 2018-08-06 21:49 | disposition home or self-care (01) ==
PROVIDERS: Emergency Provider Emergency Medicine; Family Provider Family Medicine; PCP Family Medicine
DX: K56.7 Ileus, unspecified (principal); R10.32 Left lower quadrant pain; I10 Essential (primary) hypertension; K91.2 Postsurgical malabsorption, not elsewhere classified; Z87.891 Personal history of nicotine dependence
CPT/HCPCS: 74177; 80048; 81001; 84703; 85025; 96361; 96374; 96375; 99285; J7030; Q9967; J2405

== ENCOUNTER 2018-08-25 11:13 | Emergency (ER) | payer MEDICAID, SELFPAY ==
[2018-08-25 11:13] VITALS: BP 139/100; PULSE 89; RESP 18; TEMP 36.5; O2SAT 100; BMI 26.4
--- NOTE | 2018-08-25 11:26 | ED.DCSUM_ITS ---
- ER Visit Summary Date of Service: 08/25/18 Chief Complaint: Headache, dental pain History of Present Illness: The patient is a 38 F with history of protein C&S deficiency with history of bowel ischemia with resulting short gut syndrome presents to the emergency department headache and dental pain. Patient states his been going on for the past 4 days. She states she had a sharp pain in her left upper jaw with a mild secondary headache. She is been nauseated. The patient is concerned because sometimes when she has headache, it is because she is hypomagnesemic. She has been taking her supplementation. She is been compliant with her Lovenox. She is scheduled for dental extraction on Saturday. She denies any fevers or chills. She denies any trauma. Physical Examination: Well-appearing patient is in no acute distress. Head is normocephalic, atraumatic. Pupils equal round reactive, extraocular muscles intact. There is no temporal artery tenderness. There is no vesicular rash. Neck supple. Kernig's and Brudzinski's are negative. Heart regular rate and rhythm. Lungs clear, chest nontender. Abdomen soft, nontender, nondistended. Neuro exam displays no focal or lateralizing deficit. 2+ symmetric lower extremity reflexes. No clonus. No ataxia or gait abnormality. Test Results: [] Emergency Department Course and Treatment: The patient presents with a mild headache. She states that a week ago, she did have heavy vaginal bleeding. She is on Lovenox. She states that she went to the emergency department in [place]. She states that she was anemic. Her bleeding did stop 3 days ago. S he also complains of a mild headache but it seems to be related more towards her dental pain. Her exam is unremarkable. IV was established. Hemoglobin is 6.5 which is acute on chronic. She had no further bleeding. The patient has responded to iron therapy before. She is also hypokalemic and hypomagnesemic. This is replaced. I did have a long conversation with the patient. She does not want to be admitted. She states that all these are chronic problems. We were able to replace her electrolytes. I would start her on iron therapy. She is feeling improved. I do feel that this is reasonable. The patient will be discharged. Treatment Plan: [] Disposition: Discharge Impression: 1. Acute on chronic anemia 2. Hypokalemia 3. Hypomagnesemia 4. Dental pain This note was generated with [employer] dictation software. It may contain incorrect words, spelling, and punctuation that were not noted in review of the chart prior to signing ED Disposition - Plan for ED Patient: Instructions: ED Cephalgia Unspecified Prescriptions: Ferrous Sulfate [Iron] 325 mg PO BID #60 tab Referrals: José Luis Motley MD [Primary Care Provider] -
[2018-08-25] MEDS: 0.9% Normal Saline 1,000 ML 999 ML IV (11:47)
[2018-08-25] MEDS: proCHLORPERazine 10 MG/2 ML Vial IV (11:47)
[2018-08-25] MEDS: DiphenhydrAMINE 50 MG/ML Syringe IV (11:47)
[2018-08-25 11:58] LABS: Absolute Lymphocyte Count 1.02 X10^3/ul (0.83-4.51); Absolute Neutrophil Count 2.1 X10^3/uL (2.0-7.7); Basophil# 0.02 X10^3/uL; Basophil% 0.6 % (0-1); Eosinophil# 0.09 X10^3/uL; Eosinophils% 2.5 % (0-5); Hematocrit 20.5 % (37-47); Hemoglobin 6.5 g/dl (12.0-15.0); Lymphocyte # 1.02 X10^3/ul (4.0); Lymphocyte % 28.9 % (19-41); Mean Corp Hgb Conc 31.7 g/gl (32-36); Mean Corpuscular Hgb 27.5 pg (27.0-32.0); Mean Corpuscular Volume 86.9 fL (81-99); Mean Platelet Vol. 8.5 fl (6.2-12.0); Monocyte# 0.26 X10^3/uL; Monocyte% 7.4 % (0-10); Neutrophil # 2.14 X10^3/uL (2.7-7.7); Neutrophil % 60.6 % (47-70); POSITIVE COUNT NO; POSITIVE DIFFERENTIAL NO; POSITIVE MORPHOLOGY NO; Platelet Count 253 K/mm3 (150-450); RBC Distribution Width CV 13.7 % (11.6-14.6); RBC Distribution Width SD 43.5 fl (35.1-43.9); Red Blood Count 2.36 M/mm3 (4.2-5.4); White Blood Count 3.5 K/mm3 (4.4-11.0)
[2018-08-25 12:14] LABS: Anion Gap 5 (5-15); BUN 6 mg/dL (7-18); BUN/Creat Ratio 10.1 RATIO (10-20); Calcium,Total 7.3 mg/dL (8.5-10.1); Chloride 109 mmol/L (98-107); Creatinine, Serum 0.59 mg/dL (0.55-1.02); EST Glomerular Filtration Rate 121 mL/min (>60); Est Glom Filt Rate - Afr Amer 146 mL/min (>60); Estimated Creatinine Clearance 112.74 ml/min; Glucose 83 mg/dL (74-106); Magnesium 1.2 mg/dL (1.6-2.6); Potassium 2.3 mmol/L (3.5-5.1); Sodium Level 142 mmol/L (136-145)
[2018-08-25] MEDS: Potassium Chloride 10mEq/100mL 10 MEQ/100 ML IV.SOLN. 100 MEQ IV BOLUS ×2 (12:56→14:00)
[2018-08-25] MEDS: HYDROcodone Bitartrate/Apap 5/325 Tablet PO (13:03)
[2018-08-25 13:32] VITALS: RESP 16
[2018-08-25 15:28] VITALS: BP 141/88; PULSE 69; RESP 16; O2SAT 98
== END 2018-08-25 15:30 | disposition home or self-care (01) ==
LOC: ED 11:42
PROVIDERS: Emergency Provider Emergency Medicine; Family Provider Family Medicine; PCP Family Medicine
DX: R51 Headache (principal); D53.9 Nutritional anemia, unspecified; E87.6 Hypokalemia; E83.42 Hypomagnesemia; K08.89 Other specified disorders of teeth and supporting structures; Z79.899 Other long term (current) drug therapy
CPT/HCPCS: 80048; 83735; 85025; 96361; 96365; 96366; 96367; 96375; 99284; J7030; J7050; A4216

== ENCOUNTER → 2018-09-02 18:16 | Outpatient (CLI) | payer MEDICAID, SELFPAY ==
[2018-09-02 09:51] VITALS: BMI 26.4
[2018-09-05 13:36] LABS: HPV APTIMA, High Risk Negative (Negative)
== END ==
PROVIDERS: Family Provider Family Medicine; PCP Family Medicine; Referring Provider Nurse Practitioner Women's Health; Visit Provider Nurse Practitioner Women's Health
DX: Z12.4 Encounter for screening for malignant neoplasm of cervix (principal)
CPT/HCPCS: 87624; 88175; G0145

== ENCOUNTER 2018-09-03 14:49 | Observation (INO) | payer MEDICAID, SELFPAY ==
[2018-09-02 09:51] VITALS: BMI 26.4
[2018-09-03] VITALS (14 sets, daily range): BP systolic 130–163; BP diastolic 83–108; PULSE 60–80; RESP 13–18; TEMP 36.4–37.1; O2SAT 95–100; BMI 26.4; BMI 27.0
--- NOTE | 2018-09-03 15:28 | EKG12_ITS ---
Test Reason : CP Blood Pressure : / mmHG Vent. Rate : 059 BPM Atrial Rate : 059 BPM P-R Int : 140 ms QRS Dur : 098 ms QT Int : 470 ms P-R-T Axes : -07 018 037 degrees QTc Int : 465 ms Sinus bradycardia Otherwise normal ECG Confirmed by LESLI RUIZ, JONATHAN ([id number]), editorial intern SCOTT BOBO ([id number]) on 09/08/2018 10:00:50 AM Referred By: Dionisio Lovell Confirmed By:JONATHAN BALLESTEROS MD
--- NOTE | 2018-09-03 15:28 | RAD_ITS ---
STUDY: X-RAY CHEST REASON FOR EXAM: Female, 38 years old. Right-sided back pain. TECHNIQUE: Single AP portable view of the chest. COMPARISON: Comparison is made with prior study dated June 23, 2018. FINDINGS: The lungs are clear and expanded. Scattered calcified granulomas. There is no demonstrated pleural abnormality. Normal size heart. Normal mediastinum and yoly. Normal visualized pulmonary arteries. Normal visualized aortic arch and descending thoracic aorta. Normal visualized thoracic spine. Normal visualized ribs, clavicles, and shoulders. There is no demonstrated abnormality of the visualized soft tissue structures of the upper abdomen. RAD/Chest 1 View (Portable) IMPRESSION: Normal x-ray examination of the chest. Electronically Signed: Steve Gan, at 15:49 EDT , Service support ,
[2018-09-03 15:37] LABS: Absolute Lymphocyte Count 1.45 X10^3/ul (0.83-4.51); Absolute Neutrophil Count 2.4 X10^3/uL (2.0-7.7); Basophil# 0.04 X10^3/uL; Basophil% 0.9 % (0-1); Eosinophil# 0.03 X10^3/uL; Eosinophils% 0.7 % (0-5); Hematocrit 22.9 % (37-47); Hemoglobin 6.9 g/dl (12.0-15.0); Lymphocyte # 1.45 X10^3/ul (4.0); Lymphocyte % 34.3 % (19-41); Mean Corp Hgb Conc 30.1 g/gl (32-36); Mean Corpuscular Hgb 25.5 pg (27.0-32.0); Mean Corpuscular Volume 84.5 fL (81-99); Mean Platelet Vol. 8.8 fl (6.2-12.0); Monocyte# 0.29 X10^3/uL; Monocyte% 6.9 % (0-10); Neutrophil # 2.42 X10^3/uL (2.7-7.7); Neutrophil % 57.2 % (47-70); Platelet Count 235 K/mm3 (150-450); RBC Distribution Width CV 14.7 % (11.6-14.6); Red Blood Count 2.71 M/mm3 (4.2-5.4); White Blood Count 4.2 K/mm3 (4.4-11.0)
[2018-09-03 15:42] LABS: POSITIVE COUNT NO; POSITIVE DIFFERENTIAL NO; POSITIVE MORPHOLOGY NO
--- NOTE | 2018-09-03 15:49 | ED.VISSUMM ---
- ER Visit Summary Date of Service: 09/03/18 Chief Complaint: Low potassium History of Present Illness: The patient is a 38 F who was sent for low potassium. Her potassium was 2.4. She reports headaches, muscle aches especially in her legs as well as some right upper back pain. The patient has a history of short gut syndrome stemming from a clot secondary to protein C and S deficiency. She does take Lovenox and is compliant. She also takes magnesium and potassium supplementation, and is compliant with that as well. No other significant complaints or history. Physical Examination: Afebrile and vital signs are unremarkable. Patient alert and oriented. No acute distress. Heart regular rate and rhythm. Lungs clear. Extremities unremarkable. Test Results: EKG showed sinus rhythm at a rate of 59. No changes consistent with hypokalemia or other electrolyte abnormalities. Repeat laboratory studies are pending. Chest x-ray pending. Emergency Department Course and Treatment: EKG was reassuring. Labs pending. Will replace her electrolytes pending lab results. Hemoglobin was 6.9. Patient had a recent hemoglobin that was 6.5. She was not transfused as she had noted she was having heavy periods. She did not note any GI bleeding. She had a negative Hemoccult test. Potassium 2.0 and magnesium 1.4. INR 1.3 and PTT 29.2. Troponin normal. HCG negative. Chest x-ray normal. Patient gave consent for type and screen and transfusion of 2 units of packed red blood cells. She was also treated with IV potassium. She did have some chest pain while in the ED. Her repeat EKG was unremarkable, sinus rhythm. We will continue to monitor. Patient will need inpatient care and was discussed with the hospitalist. Treatment Plan: As above Disposition: Admission Impression: 1. Anemia 2. Hypokalemia 3. Hypomagnesemia 4. Chest pain This note was generated with Fire[employer] Systemsation software. It may contain incorrect words, spelling, and punctuation that were not noted in review of the chart prior to signing ED Disposition - Plan for ED Patient: Referrals: José Luis Motley MD [Primary Care Provider] -
[2018-09-03] MEDS: Ketorolac 30 MG/ML Syringe IV (15:53)
[2018-09-03 15:55] LABS: Internal QC Validated? YES +Cl - CLEAR BKGD; Pregnancy, Serum, hCG Quali. NEGATIVE Negative
[2018-09-03 16:06] LABS: Anion Gap 6 (5-15); BUN 8 mg/dL (7-18); Calcium,Total 7.6 mg/dL (8.5-10.1); Chloride 103 mmol/L (98-107); Creatinine, Serum 0.67 mg/dL (0.55-1.02); EST Glomerular Filtration Rate 105 mL/min (>60); Est Glom Filt Rate - Afr Amer 128 mL/min (>60); Estimated Creatinine Clearance 99.27 ml/min; Glucose 78 mg/dL (74-106); Magnesium 1.4 mg/dL (1.6-2.6); Sodium Level 142 mmol/L (136-145)
[2018-09-03] MEDS: Potassium Chloride 10mEq/100mL 10 MEQ/100 ML IV.SOLN. 100 MEQ IV BOLUS ×4 (16:50→20:42)
[2018-09-03 17:56] LABS: International Normalized Ratio 1.3; Prothrombin Time (Protime)PT. 15.9 SECONDS (11.7-14.9)
[2018-09-03 17:57] LABS: Partial Thromboplast Time 29.2 Seconds (24.1-36.2)
--- NOTE | 2018-09-03 18:18 | EKG12_ITS ---
Test Reason : REPEAT-CP Blood Pressure : / mmHG Vent. Rate : 067 BPM Atrial Rate : 067 BPM P-R Int : 136 ms QRS Dur : 094 ms QT Int : 456 ms P-R-T Axes : 019 026 044 degrees QTc Int : 481 ms Normal sinus rhythm Prolonged QT Abnormal ECG Confirmed by LESLI RUIZ, JONATHAN ([id number]), food expeditor SCOTT BOBO ([id number]) on 09/08/2018 10:01:13 AM Referred By: Dionisio Lovell Confirmed By:JONATHAN BALLESTEROS MD
[2018-09-03] MEDS: Morphine 4 MG/ML Syringe IV (18:59)
--- NOTE | 2018-09-03 19:06 | HP.PCM_ITS ---
Problem List (1) Hypokalemia Status: Acute (2) Hypomagnesemia Status: Acute (3) Short gut syndrome Status: Chronic History of Present Illness Date of Admission: 09/03/18 Chief Complaint: hypokalemia on outpatient lab The patient is a 38 year old F with a significant history of blood clotting disorder; blood clot in her gut status post surgery and if short gut syndrome who presented to the emergency department because of hyperkalemia on outpatient lab. Per patient because of menorrhagia she went to her [employer] doctor. 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 Blood work at PCPs office showed that patient had potassium level of about 2.3 for which reason patient was sent to the emergency department. At emergency department patient was found to have hypomagnesemia; hypocalcemia; and her hemoglobin was 6.9. She reports that she has had low hemoglobin recently. She reported typically her menses last for about 5-7 days. But her last menses lasted for about 2 weeks. Her last period ended about 3 days ago. Also she complains of left-sided episodic aching and squeezing chest pain that has been going on for about a day and a half. She rated pain her pain as 7 out of 10. Her chest pain radiates to her left arm and to her left-sided neck. She complains of leg cramps. 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 Short gut syndrome K91.2 Blood clotting disorder D68.9 Allergies adhesive Allergy (Verified 09/02/18 09:37) Itching amoxicillin [Amoxicillin] Allergy (Verified 09/02/18 09:37) Hives Penicillins Allergy (Verified 09/02/18 09:37) Hives Home Medications: Ambulatory Orders Medication Instructions Recorded Ergocalciferol [Vitamin D] 50,000 unit PO MOTUWETH 10/09/14 Calcium Carbonate [Tums] 500 mg PO TIDCM 04/27/16 L.acidoph,Paracasei, B.lactis 1 cap PO DAILY 04/27/16 [Probiotic] Multivit with Calcium,Iron,Min 3 tab PO DAILY 04/27/16 [Multiple Vitamins For Women] magnesium L-lactate ER 84 mg 252 mg PO TID tab 01/24/18 tablet,extended release Potassium Chloride [K-Dur] 40 meq PO TID 08/06/18 Ferrous Sulfate [Iron] 325 mg PO BID #60 tab 08/25/18 Enoxaparin [Lovenox] 70 mg SC BID 09/03/18 Lactose-Reduced Food [Ensure High 237 ml PO DAILY 09/03/18 Protein] Lisinopril [Zestril] 10 mg PO DAILY 09/03/18 Surgical History: Surgical History (Last Reviewed 09/04/18 @ 10:15 by Dionisio Lovell MD) History of removal of ovarian cyst Z98.890, Z87.42 right Hx of cholecystectomy Z90.49 S/P hernia repair Z98.890, Z87.19 STEPS procedure x2 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 Denies: Palpitations Respiratory: Denies: Cough, Shortness of breath at rest, Sputum production Gastrointestinal: Denies: Abdominal Pain, Nausea, Vomiting Genitourinary: Denies: Dysuria Musculoskeletal: Reports: Leg Pain - cramps. Denies: Joint Pain, Joint Tenderness Skin: Denies: Rash, Wounds Neurological: Denies: Numbness, Tingling, Focal weakness Psychiatric: Denies: Anxiety, Depression, Homicidal Ideations, Suicidal Ideations Hematologic/ Lymphatic: Denies: Easy Bruising, Easy Bleeding VTE Information - Inpt Only VTE Present on Admission: No VTE Mechan Device Prophylaxis: None VTE Pharm Prophylaxis ordered?: No Reason prophylaxis not ordered:: Treatment Not Indicated - With history of blood clots on Lovenox; Lovenox continued - Physical Exam General: Alert, Oriented x3, Cooperative HEENT: Atraumatic, PERRLA, EOMI, Normocephalic, - - Raccoon eyes Neck: Supple, No JVD, Negative Carotid Bruits Lungs: Clear to auscultation, Normal air movement, - - pale conjunctiva Cardiovascular: Regular rate, No murmurs Abdomen: Bowel Sounds Present, Soft, Non Tender Extremities: No edema, Capillary Refill Less than 3 Seconds Skin: - - Pale Musculoskeletal: No Tenderness to Palpation of Joints or Extremities Neurological: Cranial nerves II-XII grossly intact Psych/Mental Status: Normal Affect, Appropriate Vital Signs Temp Pulse Resp BP Pulse Ox 97.5 F L 68 18 163/95 H 99 09/03/18 14:54 09/03/18 18:08 09/03/18 18:08 09/03/18 18:08 09/03/18 18:08 Oxygen Delivery Method Room Air Weight: 69.853 kg Body Mass Index (BMI) 26.4 Microbiology Past 72 Hours 09/03/18 17:00 Stool Occult Blood (ASHLI) - Final Stool Laboratory Tests Past 24 Hrs 09/03/18 09/03/18 09/03/18 15:24 15:24 15:24 WBC 4.2 L RBC 2.71 L Hgb 6.9 L Hct 22.9 L MCV 84.5 MCH 25.5 L MCHC 30.1 L RDW 14.7 H RDW Differential 46.0 H Plt Count 235 MPV 8.8 Immature Gran % (Auto) 0.000 Neut % (Auto) 57.2 Lymph % (Auto) 34.3 [place] % (Auto) 6.9 Eos % (Auto) 0.7 Baso % (Auto) 0.9 Absolute Neuts (auto) 2.4 Absolute Lymphs (auto) 1.45 Total Counted Not Reportable PT INR APTT Sodium 142 Potassium 2.0 L* Chloride 103 Carbon Dioxide 33.0 H Anion Gap 6 BUN 8 Creatinine 0.67 Estim Creat Clear Calc 99.27 Est GFR (MDRD) Af Amer 128 Est GFR (MDRD) Non-Af 105 BUN/Creatinine Ratio 12.0 Glucose 78 Calcium 7.6 L Magnesium 1.4 L Troponin I < 0.015 Serum , Qual NEGATIVE Blood Type Antibody Screen Crossmatch 09/03/18 09/03/18 17:10 17:10 WBC RBC Hgb Hct MCV MCH MCHC RDW RDW Differential Plt Count MPV Immature Gran % (Auto) Neut % (Auto) Lymph % (Auto) [place] % (Auto) Eos % (Auto) Baso % (Auto) Absolute Neuts (auto) Absolute Lymphs (auto) Total Counted PT 15.9 H INR 1.3 APTT 29.2 Sodium Potassium Chloride Carbon Dioxide Anion Gap BUN Creatinine Estim Creat Clear Calc Est GFR (MDRD) Af Amer Est GFR (MDRD) Non-Af BUN/Creatinine Ratio Glucose Calcium Magnesium Troponin I Serum , Qual Blood Type Pending Antibody Screen Pending Crossmatch See Detail Assessment/Plan All Active Problems (Last Reviewed 09/03/18 @ 19:57 by Dionisio Lovell MD) Protein S deficiency (Acute) Protein C deficiency (Acute) Acute Gastroenteritis (Acute) Pelvic pain (Acute) Hypokalemia (Acute) Hypomagnesemia (Acute) Ileus (Acute) The patient is a 38 year old F with a significant history of blood clotting disorder; blood clot in her gut status post surgery causing short gut syndrome who presented to the emergency department because of hyperkalemia on outpatient lab; and confirmed hypokalemia here; and also with hypomagnesemia; hypocalcemia; anemia and chest pain. Hypokalemia On presentation her potassium was 2.0 Likely from her short gut syndrome Patient was started on IV potassium at the emergency department. We will continue potassium supplementation IV and po Trend BMP Hypomagnesemia Patient her magnesium was 1.4. Likely due to short gut syndrome Magnesium replacement ordered. Hypocalcemia: on presentation her calcium was 7.6 We will replace her calcium gluconate Check albumin level. Anemia On presentation her hemoglobin was 6.9. Likely due to menorrhagia H&H one hour after second unit of blood ordered from the ED is administered Patient to follow up with outpatient OBGYN Chest pain Admit to a monitored bed on PCU CXR independently reviewed confirms no acute cardiopulmonary process. EKG independently reviewed confirms SR SL NTG 0.4 mg prn as needed for chest pain We will check lipid panel. 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 She reported that PCP thinks it is venous stasis which I agree Dobutamine echo as above. DVT prophylaxis Not indicated since patient is on home Lovenox for history of blood clots. Home Lovenox continued. Code Visit OBSV E&M: [id number] Initial observation care L3
--- NOTE | 2018-09-03 19:51 | EKG12_ITS ---
Test Reason : CP Blood Pressure : / mmHG Vent. Rate : 071 BPM Atrial Rate : 071 BPM P-R Int : 142 ms QRS Dur : 092 ms QT Int : 412 ms P-R-T Axes : 003 022 030 degrees QTc Int : 447 ms Normal sinus rhythm Normal ECG Confirmed by LESLI RUIZ, JONATHAN ([id number]), senior editor SCOTT BOBO ([id number]) on 09/08/2018 10:59:02 AM Referred By: Dionisio Lovell Confirmed By:JONATAHN BALLESTEROS MD
--- NOTE | 2018-09-03 20:07 | EKG12_ITS ---
Test Reason : CP ADMISSION Blood Pressure : / mmHG Vent. Rate : 067 BPM Atrial Rate : 067 BPM P-R Int : 136 ms QRS Dur : 090 ms QT Int : 424 ms P-R-T Axes : -01 020 034 degrees QTc Int : 448 ms Normal sinus rhythm Normal ECG Confirmed by LESLI RUIZ, JONATHAN ([id number]), editor newspaper LIDIA ARIZMENDI ([id number] on 09/09/2018 2:21:21 PM Referred By: Dionisio Lovell Confirmed By:JONATHAN BALLESTEROS MD
[2018-09-03 20:32] LABS: Albumin, Serum 2.9 g/dL (3.2-5.0)
[2018-09-03] MEDS: Magnesium Sulfate 4gm/100mL 4 GM/100 ML IV.SOLN. IV (22:17)
[2018-09-03] MEDS: Enoxaparin 80 MG/0.8 ML Syringe 70 MG SC (22:27)
[2018-09-03] MEDS: Morphine 2 MG/ML Syringe 1 MG IV (23:00)
[2018-09-04] VITALS (16 sets, daily range): BP systolic 150–166; BP diastolic 92–105; PULSE 59–73; RESP 16–18; TEMP 36.7–37; O2SAT 96–100
[2018-09-04] MEDS: Morphine 2 MG/ML Syringe 1 MG IV ×3 (03:01→12:20)
[2018-09-04 04:03] LABS: International Normalized Ratio 1.3; Prothrombin Time (Protime)PT. 15.8 SECONDS (11.7-14.9)
[2018-09-04 04:04] LABS: Partial Thromboplast Time 34.8 Seconds (24.1-36.2)
[2018-09-04 04:25] LABS: Anion Gap 6 (5-15); BUN 7 mg/dL (7-18); BUN/Creat Ratio 15.2 RATIO (10-20); Calcium,Total 7.1 mg/dL (8.5-10.1); Chloride 105 mmol/L (98-107); Cholesterol 54 mg/dL (200); Creatinine, Serum 0.46 mg/dL (0.55-1.02); EST Glomerular Filtration Rate 161 mL/min (>60); Est Glom Filt Rate - Afr Amer 195 mL/min (>60); Estimated Creatinine Clearance 144.59 ml/min; Glucose 90 mg/dL (74-106); High Density Lipoprotein 16 mg/dL; Potassium 2.5 mmol/L (3.5-5.1); Sodium Level 141 mmol/L (136-145); Triglycerides 63 mg/dL; Very Low Density Lipoprotein 13 mg/dL (5-40)
[2018-09-04] MEDS: Potassium Chloride 10mEq/100mL 10 MEQ/100 ML IV.SOLN. 100 MEQ IV BOLUS ×4 (04:59→08:12)
[2018-09-04] MEDS: Lisinopril 10 MG Tablet PO (06:17)
[2018-09-04 06:54] LABS: Absolute Lymphocyte Count 1.51 X10^3/ul (0.83-4.51); Absolute Neutrophil Count 2.6 X10^3/uL (2.0-7.7); Basophil# 0.02 X10^3/uL; Basophil% 0.4 % (0-1); Eosinophil# 0.04 X10^3/uL; Eosinophils% 0.9 % (0-5); Hematocrit 29.4 % (37-47); Hemoglobin 9.3 g/dl (12.0-15.0); Lymphocyte # 1.51 X10^3/ul (4.0); Mean Corp Hgb Conc 31.6 g/gl (32-36); Mean Corpuscular Hgb 26.6 pg (27.0-32.0); Mean Corpuscular Volume 84.2 fL (81-99); Mean Platelet Vol. 9.3 fl (6.2-12.0); Monocyte# 0.42 X10^3/uL; Monocyte% 9.2 % (0-10); Neutrophil # 2.58 X10^3/uL (2.7-7.7); Neutrophil % 56.5 % (47-70); Platelet Count 228 K/mm3 (150-450); RBC Distribution Width CV 14.8 % (11.6-14.6); RBC Distribution Width SD 46.1 fl (35.1-43.9); Red Blood Count 3.49 M/mm3 (4.2-5.4); White Blood Count 4.6 K/mm3 (4.4-11.0)
[2018-09-04 06:56] LABS: POSITIVE COUNT NO; POSITIVE DIFFERENTIAL NO; POSITIVE MORPHOLOGY NO
[2018-09-04] MEDS: Multivitamins,Ther W-Minerals Tablet 3 TABLET PO (08:12)
[2018-09-04] MEDS: Calcium Carbonate 500 MG Tablet PO ×3 (08:13→16:49)
[2018-09-04 08:55] LABS: Phosphorus 2.5 mg/dL (2.5-4.9)
[2018-09-04] MEDS: Enoxaparin 80 MG/0.8 ML Syringe 70 MG SC (10:26)
[2018-09-04] MEDS: Ensure Clear 120 ML Liquid 237 ML PO (10:31)
[2018-09-04] MEDS: Ferrous Sulfate 325 MG Tablet PO ×2 (12:07→16:49)
--- NOTE | 2018-09-04 15:34 | DCINST_ITS ---
You will use the following diet at home:: No restrictions Your food should be the consistency of: Regular Your liquids should be the consistency of: Regular/Thin Discharge Activity: Return to Normal Activity Allergies/Adverse Reactions: Allergies adhesive Allergy (Verified 09/02/18 09:37) Itching amoxicillin [Amoxicillin] Allergy (Verified 09/02/18 09:37) Hives Penicillins Allergy (Verified 09/02/18 09:37) Hives Medications to take at Discharge Ergocalciferol [Vitamin D] 50,000 unit PO MOTUWETH 10/09/14 Calcium Carbonate [Tums] 500 mg PO TIDCM 04/27/16 L.acidoph,Paracasei, B.lactis [Probiotic] 1 cap PO DAILY 04/27/16 Multivit with Calcium,Iron,Min [Multiple Vitamins For Women] 3 tab PO DAILY 04/27/16 magnesium L-lactate ER 84 mg tablet,extended release 252 mg PO TID tab 01/24/18 Ferrous Sulfate [Iron] 325 mg PO BID #60 tab 08/25/18 Enoxaparin [Lovenox] 70 mg SC BID 09/03/18 Lactose-Reduced Food [Ensure High Protein] 237 ml PO DAILY 09/03/18 Lisinopril [Zestril] 10 mg PO DAILY 09/03/18 Potassium Chloride [K-Dur] 40 meq PO TID #0 09/04/18 Primary Care Physician: José Luis Motley MD [Primary Care Provider] - Please follow up with your Primary Care Physician in: 1 week Test Results: Test results from this visit will be discussed in further detail at your follow- up appointment, if applicable. Please Follow Up With: Kyler Espinosa DO When: 1-2 weeks Proposed Discharge Date: 09/04/18
--- NOTE | 2018-09-04 15:35 | PCM.DC.SUM ---
Discharge Date and Diagnosis Date of Admission: 09/03/18 Date of Discharge: 09/04/18 - Primary Discharge Diagnosis Acute blood loss anemia 2/2 menorrhagia Hypokalemia Hypomagnesemia Chest pain - musculoskeletal Short gut 2/2 ischemic bowel 2/2 blood clot - Secondary Discharge Diagnosis Chronic Problems (Last Reviewed 09/03/18 @ 19:57 by Dionisio Lovell MD) Short gut syndrome (Chronic) Hypercoagulable state, primary (Chronic) Hospital Course and Treatment Imaging Results: RAD/Chest 1 View (Portable) IMPRESSION: Normal x-ray examination of the chest. Operations: None Procedures: None Summary of Care Provided: Hospital course: This patient is a 38 year old F with pmhx of short gut 2/2 clot in her bowel, on lovenox, who was sent to the hospital by her PCP after being found to have low Hemoglobin and Low potassium. The patient was seen for muscle cramps and subsequently lab work was drawn revealing the above. She also complained here of intermittent chest pain stabbing in quality, /10, radiating from the left side of her chest around the side to the back. Trop was negativex3, EKG negative, CXR negative, tele negative. It was reproducible with palp and she was felt to have musculoskeletal chest pain, and further workup was deferred at this time. She was given multiple doses of IV and oral potassium. Mag was replaced. Initially, er Hgb here was 6.9. Potassium initially here was 2.0. She was given 2 units of blood for her anemia which improved. This was felt to be 2/2 a prolonged recent menorrhagia normally 5-7 days in length, last episode 2 weeks. She is no longer bleeding now. She also has iron deficiency for which she takes PO iron, however this may be absorbed correctly with the above. She was advised to take an additional 40 meq of potassium with her usual 40 meq TID for the next week and to have a BMP checked in 5 days. She will need follow up with her PCP in 1 week. I also advised her to follow up with Dr. Espinosa regarding her anemia and iron deficiency in 1-2 weeks. She was discharged home in stable condition. This patient was seen by Morris Navarro PA-C under the supervision of Doctor Jonnie. [] - Physical Exam General: Alert, Oriented x3, Cooperative, - - diffuse pallor HEENT: Atraumatic, PERRLA, EOMI, Normocephalic Neck: Supple, No JVD, Negative Carotid Bruits Lungs: Clear to auscultation, Normal air movement Cardiovascular: Regular rate, No murmurs Abdomen: Bowel Sounds Present, Soft, Non Tender Extremities: No edema, Capillary Refill Less than 3 Seconds Skin: No rashes, No breakdown Musculoskeletal: No Tenderness to Palpation of Joints or Extremities Neurological: Cranial nerves II-XII grossly intact Psych/Mental Status: Normal Affect, Appropriate Vital Signs Temp Pulse Resp BP Pulse Ox 98.4 F 67 16 162/105 H 100 09/04/18 12:02 09/04/18 12:02 09/04/18 12:02 09/04/18 12:02 09/04/18 12:02 Oxygen Delivery Method Room Air Weight: 157 lb 6.561 oz Body Mass Index (BMI) 27.0 Intake and Output for Last 24 Hours 09/02/18 09/03/18 09/04/18 23:59 23:59 23:59 Intake Total 0 / 0 2270 / 2270 Balance 0 / 0 2270 / 2270 Microbiology Past 72 Hours 09/03/18 17:00 Stool Occult Blood (ASHLI) - Final Stool Laboratory Tests Past 24 Hrs 09/03/18 09/03/18 09/03/18 15:24 15:24 15:24 WBC 4.2 L RBC 2.71 L Hgb 6.9 L Hct 22.9 L MCV 84.5 MCH 25.5 L MCHC 30.1 L RDW 14.7 H RDW Differential 46.0 H Plt Count 235 MPV 8.8 Immature Gran % (Auto) 0.000 Neut % (Auto) 57.2 Lymph % (Auto) 34.3 [place] % (Auto) 6.9 Eos % (Auto) 0.7 Baso % (Auto) 0.9 Absolute Neuts (auto) 2.4 Absolute Lymphs (auto) 1.45 Total Counted Not Reportable PT INR APTT Sodium 142 Potassium 2.0 L* Chloride 103 Carbon Dioxide 33.0 H Anion Gap 6 BUN 8 Creatinine 0.67 Estim Creat Clear Calc 99.27 Est GFR (MDRD) Af Amer 128 Est GFR (MDRD) Non-Af 105 BUN/Creatinine Ratio 12.0 Glucose 78 Calcium 7.6 L Phosphorus Magnesium 1.4 L Troponin I < 0.015 Albumin Triglycerides Cholesterol LDL Cholesterol VLDL Cholesterol HDL Cholesterol Serum , Qual NEGATIVE Blood Type Antibody Screen Crossmatch 09/03/18 09/03/18 09/03/18 15:24 17:10 17:10 WBC RBC Hgb Hct MCV MCH MCHC RDW RDW Differential Plt Count MPV Immature Gran % (Auto) Neut % (Auto) Lymph % (Auto) [place] % (Auto) Eos % (Auto) Baso % (Auto) Absolute Neuts (auto) Absolute Lymphs (auto) Total Counted PT 15.9 H INR 1.3 APTT 29.2 Sodium Potassium Chloride Carbon Dioxide Anion Gap BUN Creatinine Estim Creat Clear Calc Est GFR (MDRD) Af Amer Est GFR (MDRD) Non-Af BUN/Creatinine Ratio Glucose Calcium Phosphorus Magnesium Troponin I Albumin 2.9 L Triglycerides Cholesterol LDL Cholesterol VLDL Cholesterol HDL Cholesterol Serum , Qual Blood Type A POSITIVE Antibody Screen NEGATIVE Crossmatch See Detail 09/03/18 09/04/18 09/04/18 22:28 01:20 03:36 WBC RBC Hgb Hct MCV MCH MCHC RDW RDW Differential Plt Count MPV Immature Gran % (Auto) Neut % (Auto) Lymph % (Auto) [place] % (Auto) Eos % (Auto) Baso % (Auto) Absolute Neuts (auto) Absolute Lymphs (auto) Total Counted PT INR APTT Sodium 141 Potassium 2.5 L* Chloride 105 Carbon Dioxide 30.0 Anion Gap 6 BUN 7 Creatinine 0.46 L Estim Creat Clear Calc 144.59 Est GFR (MDRD) Af Amer 195 Est GFR (MDRD) Non-Af 161 BUN/Creatinine Ratio 15.2 Glucose 90 Calcium 7.1 L Phosphorus Magnesium Troponin I 0.016 0.016 < 0.015 Albumin Triglycerides 63 Cholesterol 54 LDL Cholesterol 25 VLDL Cholesterol 13 HDL Cholesterol 16 L Serum , Qual Blood Type Antibody Screen Crossmatch 09/04/18 09/04/18 09/04/18 03:36 03:36 06:44 WBC 4.6 RBC 3.49 L Hgb 9.3 L Hct 29.4 L MCV 84.2 MCH 26.6 L MCHC 31.6 L RDW 14.8 H RDW Differential 46.1 H Plt Count 228 MPV 9.3 Immature Gran % (Auto) 0.000 Neut % (Auto) 56.5 Lymph % (Auto) 33.0 [place] % (Auto) 9.2 Eos % (Auto) 0.9 Baso % (Auto) 0.4 Absolute Neuts (auto) 2.6 Absolute Lymphs (auto) 1.51 Total Counted Not Reportable PT 15.8 H INR 1.3 APTT 34.8 Sodium Potassium Chloride Carbon Dioxide Anion Gap BUN Creatinine Estim Creat Clear Calc Est GFR (MDRD) Af Amer Est GFR (MDRD) Non-Af BUN/Creatinine Ratio Glucose Calcium Phosphorus 2.5 Magnesium Troponin I Albumin Triglycerides Cholesterol LDL Cholesterol VLDL Cholesterol HDL Cholesterol Serum , Qual Blood Type Antibody Screen Crossmatch 09/04/18 14:14 WBC RBC Hgb Hct MCV MCH MCHC RDW RDW Differential Plt Count MPV Immature Gran % (Auto) Neut % (Auto) Lymph % (Auto) [place] % (Auto) Eos % (Auto) Baso % (Auto) Absolute Neuts (auto) Absolute Lymphs (auto) Total Counted PT INR APTT Sodium Potassium 3.0 L Chloride Carbon Dioxide Anion Gap BUN Creatinine Estim Creat Clear Calc Est GFR (MDRD) Af Amer Est GFR (MDRD) Non-Af BUN/Creatinine Ratio Glucose Calcium Phosphorus Magnesium 2.0 Troponin I Albumin Triglycerides Cholesterol LDL Cholesterol VLDL Cholesterol HDL Cholesterol Serum , Qual Blood Type Antibody Screen Crossmatch Discharge Diet: No Restrictions Discharge Activity: Return to Normal Activity Home Medications: Medications to take at Discharge Ergocalciferol [Vitamin D] 50,000 unit PO MOTUWETH 10/09/14 Calcium Carbonate [Tums] 500 mg PO TIDCM 04/27/16 L.acidoph,Paracasei, B.lactis [Probiotic] 1 cap PO DAILY 04/27/16 Multivit with Calcium,Iron,Min [Multiple Vitamins For Women] 3 tab PO DAILY 04/27/16 magnesium L-lactate ER 84 mg tablet,extended release 252 mg PO TID tab 01/24/18 Ferrous Sulfate [Iron] 325 mg PO BID #60 tab 08/25/18 Enoxaparin [Lovenox] 70 mg SC BID 09/03/18 Lactose-Reduced Food [Ensure High Protein] 237 ml PO DAILY 09/03/18 Lisinopril [Zestril] 10 mg PO DAILY 09/03/18 Potassium Chloride [K-Dur] 40 meq PO TID #0 09/04/18 Other Amb Orders: Basic Metabolic Profile (BMP) Time Frame: 5 Days, Location: Laboratory Primary Care Physician: José Luis Motley MD [Primary Care Provider] - Please follow up with your Primary Care Physician in: 1 week Please Follow Up With: Kyler Espinosa DO When: 1-2 weeks Disposition: Home Minutes spent on discharge:: 35 Patient Condition:: Stable Medical Necessity - Tobacco Use Smoking Status: Former smoker Tobacco Use: Cigarettes Meaningful Use Info Meaningful Use Diagnoses (Choose all that apply): None applicable
== END 2018-09-04 15:33 | disposition home or self-care (01) ==
LOC: ED 17:02 → PCU 19:31
PROVIDERS: Emergency Medicine; Physician Assistant; Admitting Provider Hospitalist; Emergency Provider Emergency Medicine; Family Provider Family Medicine; PCP Family Medicine; Referring Provider Hospitalist
DX: D62 Acute posthemorrhagic anemia (principal); N92.0 Excessive and frequent menstruation with regular cycle; E87.6 Hypokalemia; R07.89 Other chest pain; K91.2 Postsurgical malabsorption, not elsewhere classified; E83.42 Hypomagnesemia; Z86.718 Personal history of other venous thrombosis and embolism; D68.59 Other primary thrombophilia; Z79.899 Other long term (current) drug therapy; Z79.01 Long term (current) use of anticoagulants; Z87.891 Personal history of nicotine dependence; E83.51 Hypocalcemia
CPT/HCPCS: 36415; 36430; 71045; 80048; 80061; 82040; 82274; 83735; 84100; 84132; 84484; 84703; 85025; 85610; 85730; 86850; 86900; 86920; 86922; 93005; 96361; 96372; 96374; 96375; 96376; 99218; 99281; 99284; J7030; J7040; J7050; P9016; A4216; G0378; J0610

== ENCOUNTER 2018-10-14 11:52 | Emergency (ER) | payer MEDICAID, SELFPAY ==
[2018-09-03 19:56] VITALS: BMI 27.0
[2018-10-14 11:52] VITALS: BP 134/86; PULSE 108; RESP 17; TEMP 36.1; O2SAT 98; BMI 26.9
[2018-10-14 13:10] VITALS: BP 133/91; RESP 16; TEMP 36.7; O2SAT 99
--- NOTE | 2018-10-14 13:49 | EKG12_ITS ---
Test Reason : ABN LABS Blood Pressure : / mmHG Vent. Rate : 064 BPM Atrial Rate : 064 BPM P-R Int : 144 ms QRS Dur : 090 ms QT Int : 422 ms P-R-T Axes : 015 020 031 degrees QTc Int : 435 ms Normal sinus rhythm Normal ECG Confirmed by ROSALINA SWIFT ([id number]), managing editor SCOTT BOBO ([id number]) on 10/16/2018 8:30:14 AM Referred By: MARSHALL Confirmed By:ROSALINA SWIFT
[2018-10-14] MEDS: 0.9% Normal Saline 1,000 ML 150 ML IV ×2 (14:03→20:53)
[2018-10-14 14:26] LABS: Absolute Lymphocyte Count 1.49 X10^3/ul (0.83-4.51); Absolute Neutrophil Count 2.4 X10^3/uL (2.0-7.7); Basophil# 0.03 X10^3/uL; Basophil% 0.7 % (0-1); Eosinophils% 2.3 % (0-5); Hemoglobin 10.4 g/dl (12.0-15.0); Lymphocyte # 1.49 X10^3/ul (4.0); Lymphocyte % 34.1 % (19-41); Mean Corp Hgb Conc 30.6 g/gl (32-36); Mean Corpuscular Hgb 26.5 pg (27.0-32.0); Mean Corpuscular Volume 86.7 fL (81-99); Mean Platelet Vol. 9.3 fl (6.2-12.0); Monocyte# 0.31 X10^3/uL; Monocyte% 7.1 % (0-10); Neutrophil # 2.44 X10^3/uL (2.7-7.7); Neutrophil % 55.8 % (47-70); Platelet Count 288 K/mm3 (150-450); RBC Distribution Width SD 53.3 fl (35.1-43.9); Red Blood Count 3.92 M/mm3 (4.2-5.4); White Blood Count 4.4 K/mm3 (4.4-11.0)
[2018-10-14 14:27] LABS: Anion Gap 6 (5-15); BUN 6 mg/dL (7-18); BUN/Creat Ratio 10.3 RATIO (10-20); Calcium,Total 8.4 mg/dL (8.5-10.1); Chloride 110 mmol/L (98-107); Creatinine, Serum 0.58 mg/dL (0.55-1.02); EST Glomerular Filtration Rate 123 mL/min (>60); Est Glom Filt Rate - Afr Amer 149 mL/min (>60); Estimated Creatinine Clearance 114.68 ml/min; Glucose 85 mg/dL (74-106); Magnesium 1.3 mg/dL (1.6-2.6); Potassium 3.2 mmol/L (3.5-5.1); Sodium Level 143 mmol/L (136-145)
[2018-10-14 14:29] LABS: POSITIVE COUNT NO; POSITIVE DIFFERENTIAL NO; POSITIVE MORPHOLOGY NO
--- NOTE | 2018-10-14 14:53 | ED.VISSUMM ---
- ER Visit Summary Date of Service: 10/14/18 Chief Complaint: Abnormal labs] History of Present Illness: The patient is a 38 F [presents to the emergency department complaint not feeling well for last 5 days. Patient states that she had blood work drawn by her permit review assistant 5 days ago and was told she had low potassium. Patient was supposed to have her lab work uploaded to my chart however she has not been able to see her values. Patient describes general fatigue and cramping in her legs that wakes her up at night at times. Patient has history of low potassium and low magnesium due to history of short gut syndrome. Patient denies urinary symptoms. She denies abdominal pain. Patient has chronic diarrhea related to her short gut syndrome. Patient had some mild nausea.] Physical Examination: [HEENT-PERRLA, EOMI. Cranial nerves II through XII grossly intact. TMs clear. Mucous membranes moist. No adenopathy. Cardiovascular-regular rate and rhythm without murmur or ectopy Lungs-clear to auscultation, chest wall stable without crepitus or subcu emphysema Abdomen-normoactive bowel sounds, soft, nontender, no rebound or rigidity, no peritoneal signs. Extremities-intact ?4, normal range of motion, normal pulses, atraumatic] Test Results: [EKG obtained on arrival shows sinus rhythm with a ventricular rate of 64 bpm with no acute I segment changes. CBC with differential showed a white count of 4.4, hemoglobin 10.4, hematocrit 34, placed 288. Sodium was 143, potassium 3.2, chloride 110, CO2 27. Magnesium was 1.3.] Emergency Department Course and Treatment: Patient was given normal saline and given 40 mEq of potassium chloride IV. Patient also given 2 g of magnesium IV. [] Treatment Plan: [Follow-up with primary care physician in 3 to 5 days. Patient to continue with outpatient magnesium and potassium.] Disposition: [Discharged home in stable condition] Impression: [Hypokalemia Hypomagnesemia] This note was generated with [employer] software. It may contain incorrect words, spelling, and punctuation that were not noted in review of the chart prior to signing ED Disposition - Plan for ED Patient: Referrals: José Luis Motley MD [Primary Care Provider] -
--- NOTE | 2018-10-14 14:57 | ED.DCSUM_ITS ---
- ER Visit Summary Date of Service: 10/14/18 Chief Complaint: Abnormal labs] History of Present Illness: The patient is a 38 F [presents to the emergency department complaint not feeling well for last 5 days. 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 Patient was supposed to have her lab work uploaded to my chart however she has not been able to see her values. Patient describes general fatigue and cramping in her legs that wakes her up at night at times. Patient has history of low potassium and low magnesium due to history of short gut syndrome. Patient denies urinary symptoms. She denies abdominal pain. Patient has chronic diarrhea related to her short gut syndrome. Patient had some mild nausea.] Physical Examination: [HEENT-PERRLA, EOMI. Cranial nerves II through XII grossly intact. TMs clear. Mucous membranes moist. No adenopathy. Cardiovascular-regular rate and rhythm without murmur or ectopy Lungs-clear to auscultation, chest wall stable without crepitus or subcu emphysema Abdomen-normoactive bowel sounds, soft, nontender, no rebound or rigidity, no peritoneal signs. Extremities-intact ?4, normal range of motion, normal pulses, atraumatic] Test Results: [EKG obtained on arrival shows sinus rhythm with a ventricular rate of 64 bpm with no acute I segment changes. CBC with differential showed a white count of 4.4, hemoglobin 10.4, hematocrit 34, placed 288. Sodium was 143, potassium 3.2, chloride 110, CO2 27. Magnesium was 1.3.] Emergency Department Course and Treatment: Patient was given normal saline and given 40 mEq of potassium chloride IV. Patient also given 2 g of magnesium IV. [] Treatment Plan: [Follow-up with primary care physician in 3 to 5 days. Patient to continue with outpatient magnesium and potassium.] Disposition: [Discharged home in stable condition] Impression: [Hypokalemia Hypomagnesemia] This note was generated with [employer] software. It may contain incorrect words, spelling, and punctuation that were not noted in review of the chart prior to signing ED Disposition - Plan for ED Patient: Referrals: José Luis Motley MD [Primary Care Provider] -
--- NOTE | 2018-10-14 14:57 | ED.DEP ---
ED Disposition - Plan for ED Patient: Instructions: ED Potassium Deficiency, Discharge Instructions for Hypomagnesemia Referrals: José Luis Motley MD [Primary Care Provider] - 3-5 Days
[2018-10-14 15:01] VITALS: BP 156/92; PULSE 77; RESP 22; O2SAT 99
[2018-10-14] MEDS: Potassium Chloride 10mEq/100mL 10 MEQ/100 ML IV.SOLN. 100 MEQ IV BOLUS ×4 (15:20→19:00)
--- NOTE | 2018-10-14 15:43 | ED.DCSUM_ITS ---
- ER Visit Summary Date of Service: 10/14/18 Chief Complaint: [Addendum to my initial dictation] History of Present Illness: The patient is a 38 F [presented with complaint of low potassium and magnesium. Prior to discharge she stated that she was having a lot of dental discomfort to a right lower molar that she is had for quite some time. Patient has a dentist appointment to have the tooth extracted in 3 days. Patient was requesting something for pain as she was having a hard time sleeping and Motrin and Tylenol was not helping her pain. She denies any fever.] Physical Examination: [Dentition-patient has tenderness over the right lower second molar. Patient does have fillings. No abscess noted. There is no facial erythema or cellulitis.] Test Results: [] Emergency Department Course and Treatment: [] Treatment Plan: [Patient will be given a prescription for a few [place] for pain patient advised to keep her appointment with her dentist.] Disposition: [Discharged home in stable condition] Impression: [Dental pain] This note was generated with [employer] dictation software. It may contain incorrect words, spelling, and punctuation that were not noted in review of the chart prior to signing ED Disposition - Plan for ED Patient: Instructions: Discharge Instructions for Hypomagnesemia, ED Potassium Deficiency Referrals: José Luis Motley MD [Primary Care Provider] - 3-5 Days
--- NOTE | 2018-10-14 15:45 | DCINST.ED_ITS ---
ED Disposition - Plan for ED Patient: Instructions: Discharge Instructions for Hypomagnesemia, ED Potassium Deficiency, ED Tooth Pain Prescriptions: Hydrocodone Bitart/Apap 5-325 [[place] 5MG-325MG] 1 tab PO Q4H PRN PRN 2 Days #10 tab PRN Reason: Pain Referrals: José Luis Motley MD [Primary Care Provider] - 3-5 Days Additional Instructions: see a dentist
[2018-10-14 17:35] VITALS: BP 158/104; PULSE 72; RESP 16; O2SAT 98
[2018-10-14 19:00] VITALS: BP 157/91; PULSE 89; RESP 16; O2SAT 97
[2018-10-14 20:54] VITALS: BP 141/81; PULSE 78; RESP 16; O2SAT 98
== END 2018-10-14 20:55 | disposition home or self-care (01) ==
LOC: ED 15:03
PROVIDERS: Emergency Provider Emergency Medicine; Family Provider Family Medicine; PCP Family Medicine
DX: E87.6 Hypokalemia (principal); E83.42 Hypomagnesemia; K91.2 Postsurgical malabsorption, not elsewhere classified; I10 Essential (primary) hypertension; Z79.899 Other long term (current) drug therapy
CPT/HCPCS: 80048; 83735; 85025; 93005; 96365; 96366; 96367; 99285; J7030; A4216

== ENCOUNTER 2018-12-06 10:23 | Emergency (ER) | payer MEDICAID, SELFPAY ==
[2018-12-06 10:24] VITALS: BP 147/88; PULSE 75; RESP 18; TEMP 36.1; O2SAT 99; BMI 26.9
--- NOTE | 2018-12-06 10:42 | ED.VIS.GEN ---
History of Present Illness Chief Complaint: Abd Pain Informant: Patient Onset: Days Narrative: Patient presents to the ED with generalized abdominal pain for the last several days. She states that pain is worse with having a bowel movement. She is unable to localize her pain. She describes the pain as a sharp cramping sensation. She does have a history of short gut syndrome and chronically has diarrhea. She does take loperamide. She states yesterday, she noticed a small amount of bright red blood on the toilet paper after wiping. Today, she noted some bright red blood mixed in with her diarrhea and was concerned. She does report some associated nausea with no episodes of emesis. She does take Lovenox for hypercoagulable state. Past Medical History - Allergies and Home Meds Allergies/Adverse Reactions: Allergies adhesive Allergy (Verified 12/06/18 10:37) Itching amoxicillin [Amoxicillin] Allergy (Verified 12/06/18 10:37) Hives Penicillins Allergy (Verified 12/06/18 10:37) Hives Primary Care Physician: José Luis Motley MD [Primary Care Provider] - Surgical History: - Smoking Status: Never smoker - Family History Maternal Family History: Family History (Last Reviewed 09/04/18 @ 10:16 by Dionisio Lovell MD) Grandmother Diabetes Heart disease Mother Heart disease Grandfather Lung cancer Liver cancer Brain cancer Family History: Reports: Heart Disease Review of Systems General: Denies: Chills, Fever, Sweats Eyes: Denies: Visual changes - bilaterally, Diplopia ENT: Denies: Rhinorrhea, Sore throat Cardiovascular: Denies: Chest pain, Palpitations Respiratory: Denies: Dyspnea, Cough, Dyspnea on exertion Gastrointestinal: Reports: Abdominal pain - generalized, Nausea, Diarrhea - chronic, Hematochezia. Denies: Vomiting, Melena Genitourinary: Denies: Dysuria, Hematuria, Frequency Musculoskeletal: Denies: Back pain, Extremity Pain Skin: Denies: Rash, Wounds Neurological: Denies: Headache, Weakness, Numbness Physical Exam Vital Signs/Narrative: Vital Signs Temp Pulse Resp BP Pulse Ox 12/06/18 10:24 97 F L 75 18 147/88 H 99 General: Well nourished, Well developed, No Acute Distress Head: Normocephalic, Atraumatic Eyes: Perrl, EOMI ENT: Moist mucous membranes, No rhinorrhea Neck: Supple, Nontender Cardiovascular: Regular rate, Regular rhythm, No murmurs Respiratory: No distress, CTA bilaterally, Chest nontender Abdomen: Soft, Nontender, Nondistended, Normal bowel sounds Rectal: Nontender Back: Nontender, Normal Inspection Extremities: Nontender, No edema Skin: Normal color, No rash Neurological: Alert, Oriented x3, Cranial nerves II-XII grossly intact, Normal Strength, Normal Sensation Psychological: Normal affect, Normal Mood Diagnostic/Tx/Re-eval CBC, CMP, lipase unremarkable. CT abdomen/pelvis with IV contrast: 1. No large or small bowel wall thickening. Persistent ileus including small bowel and colon. 2. No pneumatosis or portal venous gas. - Medical Decision Making Patient presents to the ED with generalized abdominal pain that has been ongoing for the last 3 days. Upon arrival, she appears well nontoxic. Her abdomen is soft and really nontender. She does have a history of short gut syndrome. She has not taken anything for analgesia. She is given IV fluids, Zofran, and morphine for symptomatic relief. She is also given IM Bentyl. Blood work is fairly unremarkable. CT of the abdomen/pelvis indicates no bowel wall thickening. At this time, I think it is safe for the patient be discharged home. She was given a prescription for Bentyl. 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 She was educated on signs/symptoms to return to the ED. She is provided discharge instructions. She is agreeable to plan. Disposition: Home stable Impression: Abdominal pain. History of short gut syndrome. ED Disposition - Plan for ED Patient: Disposition: Home or Assisted Living Diagnosis: Short gut syndrome Instructions: ABDOMINAL PAIN, Unknown Cause, (Female) Prescriptions: Dicyclomine HCl [Bentyl] 20 mg PO ACHS #20 cap Prescription Printed Referrals: José Luis Motley MD [Primary Care Provider] -
[2018-12-06] MEDS: Ondansetron 4 MG/2 ML Vial IV (11:30)
[2018-12-06 11:38] LABS: Absolute Lymphocyte Count 1.48 X10^3/uL (0.83-4.51); Basophil# 0.02 X10^3/uL; Basophil% 0.4 % (0-1); Eosinophil# 0.08 X10^3/uL; Eosinophils% 1.6 % (0-5); Hematocrit 33.6 % (37-47); Hemoglobin 10.7 g/dL (12.0-15.0); Lymphocyte # 1.48 X10^3/ul (4.0); Lymphocyte % 29.7 % (19-41); Mean Corp Hgb Conc 31.8 g/dL (32-36); Mean Corpuscular Hgb 27.9 pg (27.0-32.0); Mean Corpuscular Volume 87.7 fL (81-99); Mean Platelet Vol. 9.7 fl (6.2-12.0); Monocyte# 0.43 X10^3/uL; Monocyte% 8.6 % (0-10); NRBC Flagged by Analyzer 0 % (0-5); Neutrophil # 2.97 X10^3/uL (2.7-7.7); Neutrophil % 59.5 % (47-70); Platelet Count 217 K/mm3 (150-450); RBC Distribution Width CV 15.7 % (11.6-14.6); Red Blood Count 3.83 M/mm3 (4.2-5.4)
[2018-12-06] MEDS: Dicyclomine 20 MG/2 ML Vial IM (11:52)
[2018-12-06 11:57] LABS: ALB/GLOB Ratio 0.9 RATIO (0.9-2.4); AST(SGOT) 24 U/L (15-37); Alanine Aminotransfer ALT/SGPT 28 U/L (13-56); Albumin, Serum 2.9 g/dL (3.2-5.0); Alkaline Phosphatase 72 U/L (45-117); Anion Gap 5 (5-15); BUN 10 mg/dL (7-18); Chloride 109 mmol/L (98-107); Creatinine, Serum 0.67 mg/dL (0.55-1.02); EST Glomerular Filtration Rate 106 mL/min (>60); Est Glom Filt Rate - Afr Amer 128 mL/min (>60); Estimated Creatinine Clearance 99.27 ml/min; Globulin 3.3 g/dL (2.2-4.2); Glucose 59 mg/dL (74-106); Lipase 122 U/L (73-393); Potassium 3.4 mmol/L (3.5-5.1); Protein, Total 6.2 g/dL (6.4-8.2); Sodium Level 139 mmol/L (136-145)
[2018-12-06 12:28] VITALS: RESP 14
--- NOTE | 2018-12-06 13:13 | CT_ITS ---
STUDY: CT ABDOMEN AND PELVIS WITH CONTRAST REASON FOR EXAM: Female, 38 years old. 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 100 IV Isovue 370 was administered. Sagittal and coronal images were reconstructed. Individualized dose optimization techniques were used for this CT. COMPARISON: 08/06/2018 FINDINGS: The visualized lung bases are unremarkable. The visualized portions of the heart are within normal limits. There is decreased attenuation of the liver consistent with steatosis. There are surgical clips in the gallbladder fossa consistent with a prior cholecystectomy. Normal spleen. Normal pancreas. Normal bilateral adrenal glands. Normal right kidney. Normal left kidney. Normal visualized stomach. Operative changes compatible with history provided. Partial resection of small bowel with similar appearing since the prior study. There are moderately distended loops of small bowel similar in distribution and severity since the prior study. There is moderate fecal retention throughout the colon including the rectal vault. No colon wall thickening. The superior mesenteric artery and celiac axis are patent. The superior and inferior mesenteric veins are grossly unremarkable. There is non-visualization of the appendix. There is diffuse atherosclerotic calcification of the abdominal aorta, without a demonstrated aneurysm. Normal inferior vena cava. Normal retroperitoneum. Normal urinary bladder. There is fluid within the endometrial canal, similar since the prior study. Normal abdominal wall. Normal osseous structures. CT/Abdomen/Pelvis W IV Cont ONLY IMPRESSION: 1. No large or small bowel wall thickening. Persistent ileus including small bowel and colon. 2. No pneumatosis or portal venous gas. Electronically Signed: Jak Schulte MD at 13:46 EDT , Service support ,
[2018-12-06] MEDS: 0.9% Normal Saline 1,000 ML 999 ML IV (13:37)
[2018-12-06 14:10] VITALS: BP 146/91; PULSE 68; RESP 14; O2SAT 100
[2018-12-06 14:34] VITALS: BP 132/76; PULSE 81; RESP 14; O2SAT 977
== END 2018-12-06 14:35 | disposition home or self-care (01) ==
PROVIDERS: Emergency Provider Physician Assistant; Family Provider Family Medicine; PCP Family Medicine
DX: K91.2 Postsurgical malabsorption, not elsewhere classified (principal)
CPT/HCPCS: 74177; 80053; 82274; 83690; 85025; 96361; 96372; 96374; 99285; J7030; Q9967; A4216; J2405

== ENCOUNTER 2018-12-19 15:22 | Observation (INO) | payer MEDICAID, SELFPAY ==
[2018-12-19] VITALS (7 sets, daily range): BP systolic 108–125; BP diastolic 78–87; PULSE 62–80; RESP 13–19; TEMP 36.4–36.8; O2SAT 97–100; BMI 26.9; BMI 25.5; BMI 25.6
--- NOTE | 2018-12-19 15:37 | CT_ITS ---
STUDY: CT ABDOMEN AND PELVIS WITH CONTRAST REASON FOR EXAM: Female, 38 years old. 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 100ML IV/Oral Isovue 300 was administered. Sagittal and coronal images were reconstructed. Individualized dose optimization techniques were used for this CT. COMPARISON: 06 December 2018 FINDINGS: The visualized lung bases are unremarkable. The visualized portions of the heart are within normal limits. There is a benign paracardiac mediastinal lymph node. Liver is normal. Portal and hepatic veins are patent. There is cholecystectomy without biliary dilation. Superior mesenteric vein, splenic vein and inferior mesenteric veins are normal Spleen, adrenals kidneys and pancreas are normal. There is no intestinal obstruction. Multiple surgical suture lines are present in the small bowel. Normal abdominal aorta. Normal inferior vena cava. Normal retroperitoneum. Normal urinary bladder. Osseous structures are intact. Appearance is similar to prior. CT/Abdomen/Pelvis WITH Contrast IMPRESSION: 1. No acute or focal findings. 2. Postsurgical changes. 3. No change since prior. 4. Normal abdominal venous vasculature. Electronically Signed: Shahbaz Reyes, at 18:22 EDT Tel , Service support ,
--- NOTE | 2018-12-19 15:38 | US_ITS ---
STUDY: ULTRASOUND OF THE FEMALE PELVIS - COMPLETE REASON FOR EXAM: Female, 38 years old. Right pelvic pain LMP: TECHNIQUE: Transvaginal and transabdominal TECHNICAL QUALITY: Adequate. COMPARISON: CT of the abdomen and pelvis on December 19, 2018 FINDINGS: The uterus is anteverted and is in a midline position. The uterus measures 9.2 x 5.6 x 5 cm. Normal uterine cervix. The endometrium measures 10.9 mm in thickness, and is hyperechoic. There is no demonstrated endometrial mass. There is no demonstrated myometrial mass. I.U.D. - The patient does not have an I.U.D. . Tiny nabothian cyst within the lower uterine segment The right ovary is visualized. The right ovary measures 3 x 3.2 x 1.9 cm. There is no right ovarian cyst or ovarian mass. There is no visualized right adnexal mass or complex lesion. There is normal arterial and normal venous vascularity. The left ovary is nonvisualized. There is no adnexal mass. There is no fluid in the cul-de-sac. US/Transvaginal Non- IMPRESSION: Nonvisualization of the left ovary otherwise normal pelvic sonogram for age Electronically Signed: Kota Oakley MD at 19:36 EDT , Service support ,
--- NOTE | 2018-12-19 15:40 | ED.VISSUMM ---
- ER Visit Summary Date of Service: 12/19/18 Chief Complaint: Abdominal pain History of Present Illness: The patient is a 38 F presenting with abdominal pain. She states this started 2 days ago. She complains of lower abdominal cramping. She is currently on her period. She complains of heavy bleeding. She has history of short gut syndrome and clotting disorder. She is on Lovenox. She has diarrhea which is chronic and no worse than usual. She denies vomiting. Denies fever. Denies other complaints. Physical Examination: Vitals are stable. Patient is afebrile. Alert no acute distress. HEENT exam is unremarkable. Neck is supple. Lungs are clear and equal bilaterally. Heart is regular rate and rhythm. Abdomen is soft mild diffuse tenderness with no rebound or guarding Extremities are unremarkable. Skin is warm and dry. No focal neurologic deficit. Remainder of exam is unremarkable. Emergency Department Course and Treatment: EKG is sinus bradycardia with no acute ischemic changes. Patient was given morphine, Zofran IV. CBC shows hemoglobin 9.8. Chemistries show potassium 2.5. Magnesium 1.1. hCG negative. Pelvic ultrasound shows nonvisualization left ovary. CT abdomen pelvis shows no acute process. Patient was given additional dose of morphine. She was given potassium IV, magnesium IV. Discussed with the hospitalist for admission. Disposition: Observation Impression: Hypokalemia, hypomagnesemia, history of short gut syndrome This note was generated with [employer] dictation software. It may contain incorrect words, spelling, and punctuation that were not noted in review of the chart prior to signing ED Disposition - Plan for ED Patient: Referrals: José Luis Motley MD [Primary Care Provider] -
[2018-12-19] MEDS: Ondansetron 4 MG/2 ML Vial IV (15:59)
[2018-12-19] MEDS: Morphine 4 MG/ML Syringe IV ×2 (15:59→20:55)
[2018-12-19] MEDS: 0.9% Normal Saline 1,000 ML 1000 ML IV (15:59)
[2018-12-19 16:17] LABS: Absolute Lymphocyte Count 1.65 X10^3/uL (0.83-4.51); Absolute Neutrophil Count 3.1 X10^3/uL (2.0-7.7); Basophil# 0.03 X10^3/uL; Basophil% 0.6 % (0-1); Eosinophil# 0.08 X10^3/uL; Eosinophils% 1.5 % (0-5); Hematocrit 30.9 % (37-47); Hemoglobin 9.8 g/dL (12.0-15.0); Lymphocyte # 1.65 X10^3/ul (4.0); Lymphocyte % 31.4 % (19-41); Mean Corp Hgb Conc 31.7 g/dL (32-36); Mean Corpuscular Hgb 28.1 pg (27.0-32.0); Mean Corpuscular Volume 88.5 fL (81-99); Mean Platelet Vol. 9.6 fl (6.2-12.0); Monocyte% 7.6 % (0-10); NRBC Flagged by Analyzer 0 % (0-5); Neutrophil # 3.08 X10^3/uL (2.7-7.7); Neutrophil % 58.7 % (47-70); Platelet Count 200 K/mm3 (150-450); RBC Distribution Width CV 14.9 % (11.6-14.6); RBC Distribution Width SD 47.8 fl (35.1-43.9); Red Blood Count 3.49 M/mm3 (4.2-5.4); White Blood Count 5.3 K/mm3 (4.4-11.0)
[2018-12-19 16:38] LABS: ALB/GLOB Ratio 0.9 RATIO (0.9-2.4); AST(SGOT) 27 U/L (15-37); Alanine Aminotransfer ALT/SGPT 34 U/L (13-56); Albumin, Serum 3.1 g/dL (3.2-5.0); Alkaline Phosphatase 79 U/L (45-117); Anion Gap 7 (5-15); BUN 11 mg/dL (7-18); BUN/Creat Ratio 14.6 RATIO (10-20); Calcium,Total 7.9 mg/dL (8.5-10.1); Chloride 109 mmol/L (98-107); Creatinine, Serum 0.75 mg/dL (0.55-1.02); EST Glomerular Filtration Rate 92 mL/min (>60); Est Glom Filt Rate - Afr Amer 111 mL/min (>60); Estimated Creatinine Clearance 88.68 ml/min; Globulin 3.3 g/dL (2.2-4.2); Glucose 86 mg/dL (74-106); Lipase 100 U/L (73-393); Magnesium 1.1 mg/dL (1.6-2.6); Potassium 2.5 mmol/L (3.5-5.1); Protein, Total 6.4 g/dL (6.4-8.2); Sodium Level 142 mmol/L (136-145)
[2018-12-19 16:41] LABS: Internal QC Validated? YES +Cl - CLEAR BKGD; Pregnancy, Serum, hCG Quali. NEGATIVE Negative
--- NOTE | 2018-12-19 16:51 | EKG12_ITS ---
Test Reason : DIZZINESS Blood Pressure : / mmHG Vent. Rate : 059 BPM Atrial Rate : 059 BPM P-R Int : 142 ms QRS Dur : 098 ms QT Int : 462 ms P-R-T Axes : 002 004 044 degrees QTc Int : 457 ms Sinus bradycardia Otherwise normal ECG Confirmed by LESLI RUIZ, JONATHAN ([id number]), manager editorial LIDIA ARIZMENDI ([id number]) on 12/22/2018 11:46:06 AM Referred By: Bran Pierce Confirmed By:JONATHAN BALLESTEROS MD
[2018-12-19 19:07] LABS: Bacteria 0 SEEN /hpf (None Seen); Mucous, Urine 0 SEEN /hpf (<or=2+)
[2018-12-19 19:13] LABS: Color, Urine Red (Yellow); Glucose, Dipstick Normal (Normal); Ketone-Dipstick 5 mg/dl (Negative); Leukocyte Esterase-Dipstick 25 /ul (Negative); Nitrite-Dipstick Negative (Negative); Occult Blood-Urine 250 /ul (Negative); Protein-Dipstick 100 mg/dl (Negative); Urine Bilirubin Dipstick Negative (Negative); Urine Clarity Turbid (Clear); Urine Urobilinogen Normal (Normal); Urine pH 6.5 (5.0 - 8.0)
[2018-12-19 19:47] LABS: Red Blood Cells-Urine > 100 SEEN /hpf (0-5); Squamous Epithelial Cells - UA 0-5 SEEN /hpf (5-10); White Blood Cells 0-5 SEEN /hpf (0-5)
[2018-12-19] MEDS: Potassium Chloride 10mEq/100mL 10 MEQ/100 ML IV.SOLN. 100 MEQ IV BOLUS ×2 (20:55→23:08)
[2018-12-19] MEDS: Magnesium Sulfate 4gm/100mL 4 GM/100 ML IV.SOLN. IV (21:00)
--- NOTE | 2018-12-19 21:47 | HP.PCM_ITS ---
Problem List (1) Iron deficiency anemia Status: Chronic (2) Protein S deficiency Status: Acute (3) Protein C deficiency Status: Acute (4) Acute Gastroenteritis Status: Inactive (5) Pelvic pain Status: Acute Comment: ovarian cyst seen in [place] er- obtain records. 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 Prior to that patient was admitted in August 2018 for low hemoglobin and anemia and was found to have menorrhagia. In ED, the patient was found to have severely hypokalemic and hypomagnesemia which is not new to her. K2.5 and magnesium 1.1. Patient hemoglobin is also low 9.8/30.9. Patient has history of menorrhagia for 5 to 6-month and follows Dr. José Luis Granado. She was ordered ordered ultrasound but never followed after that. Today, she had transvaginal ultrasound done shows nonvisualization of left ovary otherwise normal pelvic sonogram. CT abdomen was also done which did not show any acute or focal finding. Patient said currently she is on menstrual period and she states it stays for 2 weeks with heavy menstrual flow for 1 week. She passes blood clots also. [] Past Medical History Past Medical History (Chronic Problems): Chronic Problems (Last Reviewed 09/03/18 @ 19:57 by Dionisio Lovell MD) Iron deficiency anemia (Chronic) Short gut syndrome (Chronic) Hypercoagulable state, primary (Chronic) Medical History: Medical History (Last Reviewed 09/03/18 @ 19:57 by Dionisio Lovell MD) Protein C deficiency D68.59 Protein S deficiency D68.59 Short gut syndrome K91.2 Blood clotting disorder D68.9 Allergies adhesive Allergy (Verified 12/06/18 10:37) Itching amoxicillin [Amoxicillin] Allergy (Verified 12/06/18 10:37) Hives Penicillins Allergy (Verified 12/06/18 10:37) Hives Home Medications: Ambulatory Orders Medication Instructions Recorded Ergocalciferol [Vitamin D] 50,000 unit PO MOTUWETH 10/09/14 Calcium Carbonate [Tums] 500 mg PO TIDCM 04/27/16 Pedrito Viramontes, B.lactis 1 cap PO DAILY 04/27/16 [Probiotic] Multivit with Calcium,Iron,Min 3 tab PO DAILY 04/27/16 [Multiple Vitamins For Women] magnesium L-lactate ER 84 mg 252 mg PO TID tab 01/24/18 tablet,extended release Ferrous Sulfate [Iron] 325 mg PO BID #60 tab 08/25/18 Enoxaparin [Lovenox] 70 mg SC BID 09/03/18 Lactose-Reduced Food [Ensure High 237 ml PO TID 09/03/18 Protein] Lisinopril 20 mg PO DAILY 12/19/18 Potassium Chloride [Klor-Con M20] 40 meq PO BID 12/19/18 Surgical History: Surgical History (Last Reviewed 09/04/18 @ 10:15 by Dionisio Lovell MD) History of removal of ovarian cyst Z98.890, Z87.42 right Hx of cholecystectomy Z90.49 S/P hernia repair Z98.890, Z87.19 STEPS procedure x2 Surgical History: - [employer] History: No pertinent [employer] history Smoking Status: Former smoker - *Family History Maternal Family History: Family History (Last Reviewed 09/04/18 @ 10:16 by Dionisio Lovell MD) Grandmother Diabetes Heart disease Mother Heart disease Grandfather Lung cancer Liver cancer Brain cancer History Items: Heart Disease Review of Systems Constitutional: Denies: Chills, Fever, Weight Change HEENT: Denies: Head Aches, Sinus Congestion, Sinus Drainage Cardiovascular: Denies: Chest Pain, Palpitations Respiratory: Denies: Cough, Shortness of breath at rest, Sputum production Gastrointestinal: Reports: Abdominal Pain - Bilateral quadrant pelvic cramps, Diarrhea - Chronic diarrhea in nature no change. Denies: Hematemesis, Hematochezia, Nausea, Vomiting Genitourinary: Reports: - - Heavy menorrhagia. Denies: Dysuria, Frequency, Hesitancy Musculoskeletal: Denies: Joint Pain, Joint Tenderness Skin: Denies: Rash, Wounds Neurological: Denies: Numbness, Tingling, Focal weakness Psychiatric: Denies: Anxiety, Depression, Homicidal Ideations, Suicidal Ideations Hematologic/ Lymphatic: Denies: Easy Bruising, Easy Bleeding VTE Information - Inpt Only VTE Present on Admission: No VTE Pharm Prophylaxis ordered?: No Reason prophylaxis not ordered:: Procedure Not Indicated - Already on Lovenox - Physical Exam General: Alert, Oriented x3, Cooperative HEENT: Atraumatic, PERRLA, EOMI, Normocephalic Oral: Dry Mucosa Neck: Supple, No JVD, Negative Carotid Bruits Lungs: Clear to auscultation, Normal air movement, No rhonchi, No wheeze, No rales Cardiovascular: Regular rate, Regular Rhythm, Normal S1, Normal S2, No murmurs Abdomen: Bowel Sounds Present, Soft, Non Tender, Non-Distended Extremities: No edema, Capillary Refill Less than 3 Seconds Skin: No rashes, No breakdown Musculoskeletal: No Tenderness to Palpation of Joints or Extremities Neurological: Cranial nerves II-XII grossly intact, Deep Tendon Reflexes 2+/4 and Symmetrical, Neuro grossly intact Psych/Mental Status: Normal Affect, Appropriate Vital Signs Temp Pulse Resp BP Pulse Ox 98.3 F 65 13 108/82 H 97 12/19/18 15:23 12/19/18 21:16 12/19/18 21:16 12/19/18 21:16 12/19/18 21:16 Oxygen Delivery Method Room Air Weight: 157 lb Body Mass Index (BMI) 26.9 Laboratory Tests Past 24 Hrs 12/19/18 12/19/18 12/19/18 16:00 16:00 16:00 WBC 5.3 RBC 3.49 L Hgb 9.8 L Hct 30.9 L MCV 88.5 MCH 28.1 MCHC 31.7 L RDW Std Deviation 47.8 H RDW Coeff of Jim 14.9 H Plt Count 200 MPV 9.6 Immature Gran % (Auto) 0.200 Neut % (Auto) 58.7 Lymph % (Auto) 31.4 Potter % (Auto) 7.6 Eos % (Auto) 1.5 Baso % (Auto) 0.6 Absolute Neuts (auto) 3.1 Absolute Lymphs (auto) 1.65 Nucleated RBC % 0 Sodium 142 Potassium 2.5 L* Chloride 109 H Carbon Dioxide 26.0 Anion Gap 7 BUN 11 Creatinine 0.75 Estim Creat Clear Calc 88.68 Est GFR (MDRD) Af Amer 111 Est GFR (MDRD) Non-Af 92 BUN/Creatinine Ratio 14.6 Glucose 86 Calcium 7.9 L Magnesium 1.1 L Total Bilirubin 0.40 AST 27 ALT 34 Alkaline Phosphatase 79 Total Protein 6.4 Albumin 3.1 L Globulin 3.3 Albumin/Globulin Ratio 0.9 Lipase 100 Serum , Qual NEGATIVE Urine Color Urine Clarity Urine pH Ur Specific [place] Urine Protein Urine Glucose (UA) Urine Ketones Urine Occult Blood Urine Nitrite Urine Bilirubin Urine Urobilinogen Ur Leukocyte Esterase Urine RBC Urine WBC Ur Squamous Epith Cells Urine Bacteria Urine Mucus 12/19/18 18:55 WBC RBC Hgb Hct MCV MCH MCHC RDW Std Deviation RDW Coeff of Jim Plt Count MPV Immature Gran % (Auto) Neut % (Auto) Lymph % (Auto) Potter % (Auto) Eos % (Auto) Baso % (Auto) Absolute Neuts (auto) Absolute Lymphs (auto) Nucleated RBC % Sodium Potassium Chloride Carbon Dioxide Anion Gap BUN Creatinine Estim Creat Clear Calc Est GFR (MDRD) Af Amer Est GFR (MDRD) Non-Af BUN/Creatinine Ratio Glucose Calcium Magnesium Total Bilirubin AST ALT Alkaline Phosphatase Total Protein Albumin Globulin Albumin/Globulin Ratio Lipase Serum , Qual Urine Color Red Urine Clarity Turbid Urine pH 6.5 Ur Specific [place] 1.010 Urine Protein 100 H Urine Glucose (UA) Normal Urine Ketones 5 H Urine Occult Blood 250 H Urine Nitrite Negative Urine Bilirubin Negative Urine Urobilinogen Normal Ur Leukocyte Esterase 25 H Urine RBC > 100 SEEN Urine WBC 0-5 SEEN Ur Squamous Epith Cells 0-5 SEEN Urine Bacteria 0 SEEN Urine Mucus 0 SEEN Assessment/Plan All Active Problems (Last Reviewed 09/03/18 @ 19:57 by Dionisio Lovell MD) Protein S deficiency (Acute) Protein C deficiency (Acute) Pelvic pain (Acute) Hypokalemia (Acute) Hypomagnesemia (Acute) The patient is a 38 year old F with history of short gut syndrome secondary to blood clot in bowel, hypercoagulable 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 In ED, the patient was found to have severely hypokalemic and hypomagnesemia which is not new to her. K2.5 and magnesium 1.1. Patient hemoglobin is also low 9.8/30.9. Patient has history of menorrhagia for 5 to 6-month and follows Dr. José Luis Granado. She was ordered ordered ultrasound but never followed after that. Patient said currently she is on menstrual period and she states it stays for 2 weeks with heavy menstrual flow for 1 week. She passes blood clots also. [] 1. Chronic diarrhea secondary to short gut syndrome with severe electrolyte imbalance, hypokalemia and hypomagnesemia: Patient is being admitted in PCU on cardiac telemetry. EKG shows sinus bradycardia at 59 bpm. QRS 98 ms. OH interval 142 ms. No clear-cut EKG signs of hypokalemia. Patient is started on 40 mEq of IV KCl, 4 g of IV magnesium sulfate along with K. Dur 40 M EQ every 3 hourly x2 doses. Repeat potassium and magnesium after 4 hours. 2. Chronic iron deficiency anemia secondary to heavy menstrual flow/menorrhagia: Patient was advised to follow with Dr. José Luis Granado. Transvaginal ultrasound done shows nonvisualization of left ovary otherwise normal pelvic sonogram. CT abdomen was also done which did not show any acute or focal finding. On ferrous sulfate 325 mg twice daily changed to third 25 mg 3 times daily. Iron sucrose 200 mg IV 1 dose. 3. Pelvic cramps mainly menstrual cramps. Able. 4. Hypercoagulable disorder with protein SENIOR [employer] ARCHITECT deficiency: Continue Lovenox 1 mg/kg body weight every 12 hourly. DVT prophylaxis: Already on Lovenox Code Visit OBSV E&M: 69018 Initial observation care L2
[2018-12-19] MEDS: Ensure Clear 120 ML Liquid 237 ML PO (23:03)
[2018-12-19] MEDS: Enoxaparin 80 MG/0.8 ML Syringe 70 MG SC (23:06)
[2018-12-19] MEDS: Magnesium Oxide 400 MG Tablet PO (23:06)
[2018-12-20] VITALS (19 sets, daily range): BP systolic 106–143; BP diastolic 73–92; PULSE 56–73; RESP 16–18; TEMP 36.4–37; O2SAT 97–100
[2018-12-20] MEDS: Potassium Chloride 10mEq/100mL 10 MEQ/100 ML IV.SOLN. 100 MEQ IV BOLUS ×3 (00:10→08:22)
[2018-12-20 01:07] LABS: Magnesium 2.3 mg/dL (1.6-2.6)
[2018-12-20] MEDS: oxyCODONE 5 MG Tablet PO ×4 (03:42→21:00)
[2018-12-20 08:06] LABS: Absolute Lymphocyte Count 1.19 X10^3/uL (0.83-4.51); Absolute Neutrophil Count 1.9 X10^3/uL (2.0-7.7); Basophil# 0.03 X10^3/uL; Basophil% 0.9 % (0-1); Eosinophil# 0.08 X10^3/uL; Eosinophils% 2.3 % (0-5); Hematocrit 23.7 % (37-47); Hemoglobin 7.5 g/dL (12.0-15.0); Lymphocyte # 1.19 X10^3/ul (4.0); Lymphocyte % 34.9 % (19-41); Mean Corp Hgb Conc 31.6 g/dL (32-36); Mean Corpuscular Hgb 28.5 pg (27.0-32.0); Mean Corpuscular Volume 90.1 fL (81-99); Mean Platelet Vol. 9.6 fl (6.2-12.0); Monocyte# 0.24 X10^3/uL; NRBC Flagged by Analyzer 0 % (0-5); Neutrophil # 1.86 X10^3/uL (2.7-7.7); Neutrophil % 54.6 % (47-70); Platelet Count 174 K/mm3 (150-450); RBC Distribution Width CV 15.1 % (11.6-14.6); RBC Distribution Width SD 49.6 fl (35.1-43.9); Red Blood Count 2.63 M/mm3 (4.2-5.4); White Blood Count 3.4 K/mm3 (4.4-11.0)
[2018-12-20] MEDS: 0.9% NaCl Peripheral Flush Adult/Peds IV (08:30)
[2018-12-20 08:53] LABS: Anion Gap 6 (5-15); BUN 7 mg/dL (7-18); BUN/Creat Ratio 13.1 RATIO (10-20); Calcium,Total 6.8 mg/dL (8.5-10.1); Chloride 111 mmol/L (98-107); Creatinine, Serum 0.53 mg/dL (0.55-1.02); EST Glomerular Filtration Rate 136 mL/min (>60); Est Glom Filt Rate - Afr Amer 165 mL/min (>60); Glucose 91 mg/dL (74-106); Magnesium 2.3 mg/dL (1.6-2.6); Potassium 3.6 mmol/L (3.5-5.1); Sodium Level 144 mmol/L (136-145); Thyroid Stim Hormone (TSH) 1.42 uIU/mL (0.358-3.74)
[2018-12-20] MEDS: Enoxaparin 80 MG/0.8 ML Syringe 70 MG SC ×2 (09:07→21:01)
[2018-12-20] MEDS: Magnesium Oxide 400 MG Tablet PO ×2 (09:07→21:01)
[2018-12-20] MEDS: Multivitamins,Ther W-Minerals Tablet 3 TABLET PO (09:08)
[2018-12-20] MEDS: Calcium Carbonate 500 MG Tablet PO ×3 (09:08→16:52)
[2018-12-20] MEDS: Ferrous Sulfate 325 MG Tablet PO ×3 (09:09→16:52)
[2018-12-20] MEDS: Lisinopril 10 MG Tablet PO (09:09)
--- NOTE | 2018-12-20 11:17 | PN_ITS ---
Subjective: Patient seen and examined. She was admitted with complaint of diarrhea and chronic pelvic pain. Transvaginal ultrasound was essentially normal and CT of the abdomen was also negative. She was found to have hypokalemia with potassium of 2.5 and also hypomagnesemia with magnesium of 1.1. She also has severe menorrhagia following up with gynecology. Patient states that she is currently in her menstrual cycle. She was admitted and is being managed for hypokalemia and hypomagnesemia likely due to diarrhea. Patient seen and examined. Diarrhea still present but is chronic. She denies any lightheadedness or dizziness or palpitations. Review of systems otherwise negative. Labs and vitals reviewed. Vitals/I&O's: Vital Signs Temp Pulse Resp BP Pulse Ox 97.9 F 64 16 116/84 H 99 12/20/18 08:20 12/20/18 08:20 12/20/18 08:20 12/20/18 08:20 12/20/18 08:20 Oxygen Delivery Method Room Air Weight: 149 lb 0.52 oz Body Mass Index (BMI) 25.5 Intake and Output for Last 24 Hours 12/18/18 12/19/18 12/20/18 23:59 23:59 23:59 Intake Total 497 / 497 516 / 516 Balance 497 / 497 516 / 516 General: Alert, Oriented x3, Cooperative, No apparent distress HEENT: Atraumatic, PERRLA, EOMI, Normocephalic Oral: Moist Mucosa Neck: Supple, No JVD, Negative Carotid Bruits Lungs: Clear to auscultation, Normal air movement, No rhonchi, No wheeze Cardiovascular: Regular rate, Regular Rhythm, Normal S1, Normal S2, No murmurs Abdomen: Bowel Sounds Present, Soft, Non Tender, Non-Distended, No Hepato- splenomegaly Extremities: No clubbing, No cyanosis, No edema, Capillary Refill Less than 3 Seconds Skin: No rashes, No breakdown Musculoskeletal: No Tenderness to Palpation of Joints or Extremities Lymphatic: No Cervical, Supraclavicular, or Inguinal Adenopathy Neurological: Cranial nerves II-XII grossly intact, Neuro grossly intact, Motor Exam 5/5 strength throughout Psych/Mental Status: Normal Affect, Appropriate, Alert and oriented to time, place, person, mood and affect Laboratory Results 12/19/18 16:00: WBC 5.3, RBC 3.49 L, Hgb 9.8 L, Hct 30.9 L, MCV 88.5, MCH 28.1, MCHC 31.7 L, RDW Std Deviation 47.8 H, RDW Coeff of Jim 14.9 H, Plt Count 200, MPV 9.6, Immature Gran % (Auto) 0.200, Neut % (Auto) 58.7, Lymph % (Auto) 31.4, Hays % (Auto) 7.6, Eos % (Auto) 1.5, Baso % (Auto) 0.6, Absolute Neuts (auto) 3.1, Absolute Lymphs (auto) 1.65, Nucleated RBC % 0 12/19/18 16:00: Sodium 142, Potassium 2.5 L*, Chloride 109 H, Carbon Dioxide 26.0, Anion Gap 7, BUN 11, Creatinine 0.75, Estim Creat Clear Calc 88.68, Est GFR (MDRD) Af Amer 111, Est GFR (MDRD) Non-Af 92, BUN/Creatinine Ratio 14.6, Glucose 86, Calcium 7.9 L, Magnesium 1.1 L, Total Bilirubin 0.40, AST 27, ALT 34, Alkaline Phosphatase 79, Total Protein 6.4, Albumin 3.1 L, Globulin 3.3, Albumin/Globulin Ratio 0.9, Lipase 100 12/19/18 16:00: Serum , Qual NEGATIVE 12/19/18 18:55: Urine Color Red, Urine Clarity Turbid, Urine pH 6.5, Ur Specific Rattan 1.010, Urine Protein 100 H, Urine Glucose (UA) Normal, Urine Ketones 5 H , Urine Occult Blood 250 H, Urine Nitrite Negative, Urine Bilirubin Negative, Urine Urobilinogen Normal, Ur Leukocyte Esterase 25 H, Urine RBC > 100 SEEN, Urine WBC 0-5 SEEN, Ur Squamous Epith Cells 0-5 SEEN, Urine Bacteria 0 SEEN, Urine Mucus 0 SEEN 12/20/18 00:47: Potassium 3.0 L, Magnesium 2.3 12/20/18 07:15: WBC 3.4 L, RBC 2.63 L, Hgb 7.5 L, Hct 23.7 L, MCV 90.1, MCH 28.5, MCHC 31.6 L, RDW Std Deviation 49.6 H, RDW Coeff of Jim 15.1 H, Plt Count 174, MPV 9.6, Immature Gran % (Auto) 0.300, Neut % (Auto) 54.6, Lymph % (Auto) 34.9, Hays % (Auto) 7.0, Eos % (Auto) 2.3, Baso % (Auto) 0.9, Absolute Neuts (auto) 1.9 L, Absolute Lymphs (auto) 1.19, Nucleated RBC % 0 12/20/18 07:15: Sodium 144, Potassium 3.6, Chloride 111 H, Carbon Dioxide 27.0, Anion Gap 6, BUN 7, Creatinine 0.53 L, Estim Creat Clear Calc 125.50, Est GFR (MDRD) Af Amer 165, Est GFR (MDRD) Non-Af 136, BUN/Creatinine Ratio 13.1, Glucose 91, Calcium 6.8 L, Magnesium 2.3, TSH 1.42 Diagnostic Data Abdomen/Pelvis CT 12/19/18 15:37 IMPRESSION: 1. No acute or focal findings. 2. Postsurgical changes. 3. No change since prior. 4. Normal abdominal venous vasculature. Electronically Signed: Shahbaz Reyes at 18:22 EDT Tel , Service support , Transvaginal US 12/19/18 15:38 IMPRESSION: Nonvisualization of the left ovary otherwise normal pelvic sonogram for age Electronically Signed: Kota Oakley MD at 19:36 EDT , Service support , Current Medications Acetaminophen (Tylenol) 650 mg PO Q6H PRN PRN PRN Reason: Mild pain 1-3/Temp > 100.7 F Calcium Carbonate (Tums) 500 mg PO TIDCM [facility] Last Admin: 12/20/18 09:08 Dose: 500 mg Documented by: Enoxaparin Sodium (Lovenox) 70 mg SC BID [facility] Last Admin: 12/20/18 09:07 Dose: 70 mg Documented by: Ergocalciferol (Vitamin D) 50,000 unit PO [facility] Ferrous Sulfate (Ferrous Sulfate) 325 mg PO TIDCM [facility] Last Admin: 12/20/18 09:09 Dose: 325 mg Documented by: Lactobacillus Acidophilus (Acidophilus) 1 tablet PO DAILY [facility] Last Admin: 12/20/18 09:08 Dose: 1 tablet Documented by: Lisinopril (Zestril) 10 mg PO DAILY [facility] Last Admin: 12/20/18 09:09 Dose: 10 mg Documented by: Magnesium Oxide (Mag-Ox 400) 400 mg PO BID [facility] Last Admin: 12/20/18 09:07 Dose: 400 mg Documented by: Multivitamins/Minerals (Multivitamin With Minerals) 3 tablet PO DAILY@0800 [facility] Last Admin: 12/20/18 09:08 Dose: 3 tablet Documented by: Nutritional Formula (Lactose Free) (Ensure Clear) 237 ml PO TID [facility] Last Admin: 12/20/18 06:02 Dose: Not Given Documented by: Ondansetron HCl (Zofran) 4 mg IV Q8H PRN PRN PRN Reason: NAUSEA/VOMITING Oxycodone HCl (Oxyir) 5 mg PO Q4H PRN PRN PRN Reason: Moderate Pain (4-6/10) Last Admin: 12/20/18 09:06 Dose: 5 mg Documented by: Sodium Chloride () 10 - 40 ml IV UD PRN PRN Reason: SALINE FLUSH Last Admin: 12/20/18 08:30 Dose: 10 ml Documented by: Medical Necessity - Tobacco Use Smoking Status: Former smoker Assessment/Plan All Active Problems (Last Reviewed 09/03/18 @ 19:57 by Dionisio Lovell MD) Protein S deficiency (Acute) Protein C deficiency (Acute) Pelvic pain (Acute) Hypokalemia (Acute) Hypomagnesemia (Acute) 1. Hypokalemia and hypomagnesemia due to chronic diarrhea * K is up to 3.6 today, and Mg is 2.3. * will continue to monitor * 2. Chronic diarrhea due to short gut syndrome * stable. encourage oral hydration * will monitor * 3. Acute on chronic iron deficiency anemia due to menorrhagia * K was 9.8 on admission, and is now down to 7.5 * says her periods usually last for ~ 2 weeks * will transfuse one unit of pRBC * on ferrous sulfate iron supplements * 4. Menorrhagia: * currently in her menstrual period. * Says it lasts for ~ 2 weeks, with associated passage of clots. * complained of abdominal pain, transvaginal USG was normal * 5. Protein C and S deficiency: on therapeutic lovenox. DVT prophylaxis: on lovenox-therapeutic dose as under 5. Code Visit OBSV E&M: 80197 Subsequent observation care L3
[2018-12-20] MEDS: Ensure Clear 120 ML Liquid 237 ML PO ×2 (13:21→21:00)
--- NOTE | 2018-12-20 16:56 | CM.UR ---
RN CM Assessment Introduced role of RN CM to patient. Patient is alert and able to participate in RN CM Assessment. Care providers, pharmacy, and demographics verified. No family at bedside. Presentation: Heavy menstrual bleeding and abd pain. Admit Dx: iron def anemia; ovarian cyst. Re-Admit: no Barriers/Issues: pain PCP: irina Specialists: [facility]: nutrition and surgeon (hx of short gut syndrome). heel seat laster: germaine. Preferred Pharmacy: [facility] Insurance: [email or web address] Rx Benefit: [employer], no concerns about copays. LNOK: meghan correa LW/HPOA: both on file. , Meghan Correa, is HPOA. Living Arrangements: Mobile home with 4 steps in. ADL?s: Independent with all ADLs. Transportation: drives self, will when she cannot. No transportation concerns. DME: None DME co: no preference. HHC: did have HHC once after a surgery but cannot remember name of agency. SNF: None Goal: Home. DC PLAN: Home, NN anticipated. Bambi Coy RN, CCM.
[2018-12-21 02:20] VITALS: BP 105/71; PULSE 62; RESP 18; TEMP 36.8; O2SAT 96
[2018-12-21 03:00] VITALS: PULSE 61
[2018-12-21 06:32] LABS: Absolute Lymphocyte Count 1.47 X10^3/uL (0.83-4.51); Absolute Neutrophil Count 2.2 X10^3/uL (2.0-7.7); Basophil# 0.02 X10^3/uL; Basophil% 0.5 % (0-1); Eosinophil# 0.09 X10^3/uL; Eosinophils% 2.2 % (0-5); Hematocrit 30.4 % (37-47); Hemoglobin 9.6 g/dL (12.0-15.0); Lymphocyte # 1.47 X10^3/ul (4.0); Lymphocyte % 35.8 % (19-41); Mean Corp Hgb Conc 31.6 g/dL (32-36); Mean Corpuscular Hgb 28.2 pg (27.0-32.0); Mean Corpuscular Volume 89.4 fL (81-99); Monocyte# 0.33 X10^3/uL; NRBC Flagged by Analyzer 0 % (0-5); Neutrophil # 2.19 X10^3/uL (2.7-7.7); Neutrophil % 53.3 % (47-70); Platelet Count 186 K/mm3 (150-450); RBC Distribution Width SD 48.4 fl (35.1-43.9); White Blood Count 4.1 K/mm3 (4.4-11.0)
[2018-12-21 06:48] LABS: Anion Gap 7 (5-15); BUN 7 mg/dL (7-18); BUN/Creat Ratio 13.8 RATIO (10-20); Calcium,Total 7.5 mg/dL (8.5-10.1); Chloride 107 mmol/L (98-107); Creatinine, Serum 0.51 mg/dL (0.55-1.02); EST Glomerular Filtration Rate 145 mL/min (>60); Est Glom Filt Rate - Afr Amer 175 mL/min (>60); Estimated Creatinine Clearance 130.42 ml/min; Glucose 81 mg/dL (74-106); Magnesium 2.1 mg/dL (1.6-2.6); Potassium 3.9 mmol/L (3.5-5.1); Sodium Level 142 mmol/L (136-145)
[2018-12-21 07:28] VITALS: PULSE 64
[2018-12-21 07:45] VITALS: O2SAT 95
[2018-12-21] MEDS: oxyCODONE 5 MG Tablet PO (08:17)
[2018-12-21] MEDS: Calcium Carbonate 500 MG Tablet PO (08:17)
[2018-12-21] MEDS: Ferrous Sulfate 325 MG Tablet PO (08:17)
[2018-12-21] MEDS: Multivitamins,Ther W-Minerals Tablet 3 TABLET PO (08:17)
[2018-12-21] MEDS: Magnesium Oxide 400 MG Tablet PO (08:18)
[2018-12-21] MEDS: Enoxaparin 80 MG/0.8 ML Syringe 70 MG SC (08:18)
[2018-12-21] MEDS: Lisinopril 10 MG Tablet PO (08:18)
[2018-12-21 08:20] VITALS: BP 132/70; PULSE 74; RESP 14; TEMP 36.7; O2SAT 99
--- NOTE | 2018-12-21 10:44 | DCINST_ITS ---
- Discharge Diagnoses Current Active Problems: Current Active and Chronic Problems (Last Reviewed 09/03/18 @ 19:57 by Dionisio Lovell MD) Iron deficiency anemia (Chronic) You will use the following diet at home:: No restrictions Your food should be the consistency of: Regular Your liquids should be the consistency of: Regular/Thin Discharge Activity: Return to Normal Activity Weight Bearing Status: Weight bearing as tolerated Call your doctor if you observe: Fever of 101 or Higher, Numbness or Tingling, Shortness of breath, Dizziness Instructions: Eating a High Potassium Diet, Hypokalemia Allergies/Adverse Reactions: Allergies adhesive Allergy (Verified 12/06/18 10:37) Itching amoxicillin [Amoxicillin] Allergy (Verified 12/06/18 10:37) Hives Penicillins Allergy (Verified 12/06/18 10:37) Hives Medications to take at Discharge Ergocalciferol [Vitamin D] 50,000 unit PO MOTUWETH 10/09/14 Calcium Carbonate [Tums] 500 mg PO TIDCM 04/27/16 L.acidoph,Paracasei, B.lactis [Probiotic] 1 cap PO DAILY 04/27/16 Multivit with Calcium,Iron,Min [Multiple Vitamins For Women] 3 tab PO DAILY 04/27/16 magnesium L-lactate ER 84 mg tablet,extended release 252 mg PO TID tab 01/24/18 Ferrous Sulfate [Iron] 325 mg PO BID #60 tab 08/25/18 Enoxaparin [Lovenox] 70 mg SC BID 09/03/18 Lactose-Reduced Food [Ensure High Protein] 237 ml PO TID 09/03/18 Lisinopril 20 mg PO DAILY 12/19/18 Potassium Chloride [Klor-Con M20] 40 meq PO BID 12/19/18 Primary Care Physician: José Luis Motley MD [Primary Care Provider] - Please follow up with your Primary Care Physician in: within 1-2 weeks; call office for appointment Test Results: Test results from this visit will be discussed in further detail at your follow- up appointment, if applicable.
--- NOTE | 2018-12-21 10:48 | PCM.DC.SUM ---
Discharge Date and Diagnosis Date of Admission: 12/19/18 Date of Discharge: 12/21/18 - Primary Discharge Diagnosis hypokalemia hypomagnesemia acute on chronic iron deficiency anemia - Secondary Discharge Diagnosis Chronic Problems (Last Reviewed 09/03/18 @ 19:57 by Dionisio Lovell MD) Iron deficiency anemia (Chronic) Short gut syndrome (Chronic) Hypercoagulable state, primary (Chronic) Hospital Course and Treatment Operations: None Procedures: None Summary of Care Provided: Patient is a 38-year-old female with past medical history as listed. She was admitted to the ED on 12/19/2018 with a complaint of diarrhea and chronic pelvic pain. She had a transvaginal ultrasound done by her LOGISTICS DIRECTOR on outpatient basis which was normal. She was sent to the ED with CT of the abdomen and pelvis was essentially negative. However she was found to have hypokalemia with potassium of 2.5 and also hypomagnesemia with magnesium of 1.1. Patient has a history of short gut syndrome and has had chronic diarrhea since diagnosis. Patient also had a history of severe menorrhagia for which was following up with gynecology and was in a menstrual cycle at time of admission. He was admitted and managed for hypomagnesemia and hypokalemia. Magnesium and potassium were replaced successfully. However patient became very more anemic with hemoglobin falling to 7.5; it had been 9.8 on admission. She was transfused with 2 units of packed red blood cells. Hemoglobin was 9.6 at time of discharge. Potassium was 3.9 at admission and magnesium was 2.1. He remained stable and was discharged home on 12/21/2018. 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 Patient bibi and examined prior to discharge. She has no complaints and felt well. Review of systems otherwise negative. Labs and vitals reviewed. home meds reviewed and reconciled. o/e: Vital Signs Height 5 ft 4 in Weight: 149 lb 0.52 oz Weight in Pounds 149.0 lbs Pulse Ox 99 Temperature 98.0 F Pulse Rate 74 Respiratory Rate 14 Blood Pressure 132/70 Blood Pressure Position Semi-Fowlers General: Alert, Oriented x3, Cooperative, No apparent distress HEENT: Atraumatic, PERRLA, EOMI, Normocephalic Oral: Moist Mucosa Neck: Supple, No JVD, Negative Carotid Bruits Lungs: Clear to auscultation, Normal air movement, No rhonchi, No wheeze Cardiovascular: Regular rate, Regular Rhythm, Normal S1, Normal S2, No murmurs Abdomen: Bowel Sounds Present, Soft, Non Tender, Non-Distended, No Hepato-splenomegaly Extremities: No clubbing, No cyanosis, No edema, Capillary Refill Less than 3 Seconds Skin: No rashes, No breakdown Musculoskeletal: No Tenderness to Palpation of Joints or Extremities Lymphatic: No Cervical, Supraclavicular, or Inguinal Adenopathy Neurological: Cranial nerves II-XII grossly intact, Neuro grossly intact, Motor Exam 5/5 strength throughout Psych/Mental Status: Normal Affect, Appropriate, Alert and oriented to time, place, person, mood and affect Plan as above. - Physical Exam Vital Signs Temp Pulse Resp BP Pulse Ox 98.0 F 74 14 132/70 H 99 12/21/18 08:20 12/21/18 08:20 12/21/18 08:20 12/21/18 08:20 12/21/18 08:20 Oxygen Delivery Method Room Air Weight: 149 lb 0.52 oz Body Mass Index (BMI) 25.5 Intake and Output for Last 24 Hours 12/19/18 12/20/18 12/21/18 23:59 23:59 23:59 Intake Total 497 / 497 1925 / 2561 756 / 756 Balance 497 / 497 1925 / 2561 756 / 756 Laboratory Tests Past 24 Hrs 12/20/18 12/21/18 12/21/18 11:50 06:00 06:00 WBC 4.1 L RBC 3.40 L Hgb 9.6 L Hct 30.4 L MCV 89.4 MCH 28.2 MCHC 31.6 L RDW Std Deviation 48.4 H RDW Coeff of Jim 15.0 H Plt Count 186 MPV 10.0 Immature Gran % (Auto) 0.200 Neut % (Auto) 53.3 Lymph % (Auto) 35.8 [place] % (Auto) 8.0 Eos % (Auto) 2.2 Baso % (Auto) 0.5 Absolute Neuts (auto) 2.2 Absolute Lymphs (auto) 1.47 Nucleated RBC % 0 Sodium 142 Potassium 3.9 Chloride 107 Carbon Dioxide 28.0 Anion Gap 7 BUN 7 Creatinine 0.51 L Estim Creat Clear Calc 130.42 Est GFR (MDRD) Af Amer 175 Est GFR (MDRD) Non-Af 145 BUN/Creatinine Ratio 13.8 Glucose 81 Calcium 7.5 L Magnesium 2.1 Blood Type A POSITIVE Antibody Screen NEGATIVE Crossmatch See Detail Discharge Diet: No Restrictions Discharge Activity: Return to Normal Activity Weight Bearing Status: Weight bearing as tolerated Call your doctor if you observe: Fever of 101 or Higher, Numbness or Tingling, Shortness of breath, Dizziness Home Medications: Medications to take at Discharge Ergocalciferol [Vitamin D] 50,000 unit PO MOTUWETH 10/09/14 Calcium Carbonate [Tums] 500 mg PO TIDCM 04/27/16 L.acidoph,Paracasei, B.lactis [Probiotic] 1 cap PO DAILY 04/27/16 Multivit with Calcium,Iron,Min [Multiple Vitamins For Women] 3 tab PO DAILY 04/27/16 magnesium L-lactate ER 84 mg tablet,extended release 252 mg PO TID tab 01/24/18 Ferrous Sulfate [Iron] 325 mg PO BID #60 tab 08/25/18 Enoxaparin [Lovenox] 70 mg SC BID 09/03/18 Lactose-Reduced Food [Ensure High Protein] 237 ml PO TID 09/03/18 Lisinopril 20 mg PO DAILY 12/19/18 Potassium Chloride [Klor-Con M20] 40 meq PO BID 12/19/18 Primary Care Physician: José Luis Motley MD [Primary Care Provider] - Please follow up with your Primary Care Physician in: within 1-2 weeks; call office for appointment Patient Instructions: Hypokalemia, Eating a High Potassium Diet Disposition: Home Minutes spent on discharge:: 35 Patient Condition:: Stable Medical Necessity - Tobacco Use Smoking Status: Former smoker Meaningful Use Info Meaningful Use Diagnoses (Choose all that apply): None applicable Code Visit OBSV E&M: 04747 Observation care discharge
== END 2018-12-21 10:45 | disposition home health service (06) ==
LOC: ED 15:44 → PCU 23:00
PROVIDERS: Admitting Provider Internal Medicine; Emergency Provider Emergency Medicine; Family Provider Family Medicine; PCP Family Medicine; Referring Provider Internal Medicine; Visit Provider Student in an Organized Health Care Education/Training Program
DX: E87.6 Hypokalemia (principal); E83.42 Hypomagnesemia; D62 Acute posthemorrhagic anemia; D50.0 Iron deficiency anemia secondary to blood loss (chronic); K91.2 Postsurgical malabsorption, not elsewhere classified; N92.0 Excessive and frequent menstruation with regular cycle; D68.59 Other primary thrombophilia; Z87.891 Personal history of nicotine dependence; Z79.899 Other long term (current) drug therapy; Z79.01 Long term (current) use of anticoagulants
CPT/HCPCS: 36415; 36430; 74177; 76830; 80048; 80053; 81001; 83690; 83735; 84132; 84443; 84703; 85025; 86850; 86900; 86920; 86922; 93005; 96361; 96365; 96372; 96375; 96376; 99218; 99285; J1756; J7030; J7040; P9016; Q9967; A4216; G0378; J2405

== ENCOUNTER 2019-01-25 16:11 | Emergency (ER) | payer MEDICAID, SELFPAY ==
[2019-01-08 11:19] VITALS: BMI 26.1
[2019-01-25 16:13] VITALS: BP 114/69; PULSE 68; RESP 16; TEMP 36.8; O2SAT 98; BMI 27.3
[2019-01-25 16:53] VITALS: BP 106/80; BP 111/71; BP 123/86; PULSE 65; PULSE 67; PULSE 78
[2019-01-25 16:58] LABS: Absolute Lymphocyte Count 1.45 X10^3/uL (0.83-4.51); Basophil# 0.03 X10^3/uL; Basophil% 0.5 % (0-1); Eosinophils% 1.7 % (0-5); Hematocrit 31.2 % (37-47); Hemoglobin 9.6 g/dL (12.0-15.0); Lymphocyte # 1.45 X10^3/ul (4.0); Lymphocyte % 24.2 % (19-41); Mean Corp Hgb Conc 30.8 g/dL (32-36); Mean Corpuscular Hgb 28.7 pg (27.0-32.0); Mean Corpuscular Volume 93.1 fL (81-99); Monocyte# 0.41 X10^3/uL; Monocyte% 6.9 % (0-10); NRBC Flagged by Analyzer 0 % (0-5); Neutrophil # 3.97 X10^3/uL (2.7-7.7); Neutrophil % 66.4 % (47-70); Platelet Count 298 K/mm3 (150-450); RBC Distribution Width CV 14.6 % (11.6-14.6); RBC Distribution Width SD 49.8 fl (35.1-43.9); Red Blood Count 3.35 M/mm3 (4.2-5.4)
[2019-01-25] MEDS: 0.9% Normal Saline 1,000 ML 1000 ML IV (17:00)
[2019-01-25 17:09] VITALS: RESP 16; TEMP 36.8; O2SAT 98
[2019-01-25 17:09] LABS: Internal QC Validated? YES +Cl - CLEAR BKGD; Pregnancy, Serum, hCG Quali. NEGATIVE Negative
[2019-01-25 17:11] LABS: Anion Gap 8 (5-15); BUN 11 mg/dL (7-18); BUN/Creat Ratio 15.3 RATIO (10-20); Calcium,Total 8.4 mg/dL (8.5-10.1); Chloride 110 mmol/L (98-107); Creatinine, Serum 0.72 mg/dL (0.55-1.02); EST Glomerular Filtration Rate 97 mL/min (>60); Est Glom Filt Rate - Afr Amer 117 mL/min (>60); Estimated Creatinine Clearance 92.38 ml/min; Glucose 84 mg/dL (74-106); Magnesium 1.2 mg/dL (1.6-2.6); Potassium 3.3 mmol/L (3.5-5.1); Sodium Level 143 mmol/L (136-145)
[2019-01-25 18:39] VITALS: BP 126/71
[2019-01-25 18:39] LABS: Bacteria 0 SEEN /hpf (None Seen); Mucous, Urine 0 SEEN /hpf (<or=2+); Red Blood Cells-Urine 0 SEEN /hpf (0-5)
[2019-01-25 18:45] LABS: Color, Urine Yellow (Yellow); Glucose, Dipstick Normal (Normal); Ketone-Dipstick 5 mg/dl (Negative); Leukocyte Esterase-Dipstick Negative /ul (Negative); Nitrite-Dipstick Negative (Negative); Occult Blood-Urine Negative /ul (Negative); Protein-Dipstick 15 mg/dl (Negative); Urine Bilirubin Dipstick Negative (Negative); Urine Clarity Clear (Clear); Urine Urobilinogen Normal (Normal)
[2019-01-25 18:50] LABS: Squamous Epithelial Cells - UA 5-10 SEEN /hpf (5-10)
[2019-01-25 18:51] LABS: White Blood Cells 0-5 SEEN /hpf (0-5)
--- NOTE | 2019-01-25 18:51 | ED.DCSUM_ITS ---
- ER Visit Summary Date of Service: 01/25/19 Chief Complaint: [Fatigue, headache, and muscle cramps] History of Present Illness: The patient is a 38 F [Arthurtz to the emergency department with multiple complaints over the last 2 to 3 days. Patient states that she has a history of short gut syndrome related to a blood clot that she had in her mesentery which required surgery to remove part of her colon and small bowel. Patient states she has chronic diarrhea. She is on potassium and magnesium replacement. Patient complains of feeling lightheaded and dizzy at times. She states that she recently finished a menstrual period 4 days ago and the last time she had a heavy period, she required a blood transfusion.] She complains of diffuse muscle cramping of the upper and lower extremities as well as her abdominal musculature. Physical Examination: [HEENT-PERRLA, EOMI. Cranial nerves II through XII grossly intact. TMs clear. Mucous membranes moist. No adenopathy. Cardiovascular-regular rate and rhythm without murmur or ectopy Lungs-clear to auscultation, chest wall stable without crepitus or subcu emphysema Abdomen-normoactive bowel sounds, soft, nontender, no rebound or rigidity, no peritoneal signs. Extremities-intact ?4, normal range of motion, normal pulses, atraumatic] Test Results: [CBC with differential obtained showing a 6.0, hemoglobin 9.6, hematocrit 31, platelets 298. Chemistries showed a sodium 143, potassium 3.3, chloride 110, CO2 25, glucose 84, BUN 11, creatinine 0.72. Her magnesium was 1.2. hCG was negative. Urinalysis was normal other than she did have 5+ ketones.] Emergency Department Course and Treatment: [She was given a liter normal same fluid bolus. Patient was given 40 mEq of potassium chloride p.o. Patient was given 2 g of magnesium IV.] Treatment Plan: [Follow-up with primary care physician 3 to 5 days.] Disposition: [Discharged home in stable condition.] Impression: Hypokalemia Hypomagnesemia [] This note was generated with [employer][email or web address] software. It may contain incorrect words, spelling, and punctuation that were not noted in review of the chart prior to signing ED Disposition - Plan for ED Patient: Referrals: José Luis Motley MD [Primary Care Provider] -
[2019-01-25 18:52] LABS: Calcium Oxalate Crystals Ur RARE /hpf (<or=2+)
--- NOTE | 2019-01-25 18:54 | ED.DEP ---
ED Disposition - Plan for ED Patient: Instructions: Hypokalemia, Hypomagnesemia Referrals: José Luis Motley MD [Primary Care Provider] - 3-5 Days
[2019-01-25 19:29] VITALS: BP 121/81
== END 2019-01-25 21:35 | disposition home or self-care (01) ==
LOC: ED 16:50
PROVIDERS: Emergency Provider Emergency Medicine; Family Provider Family Medicine; PCP Family Medicine
DX: E87.6 Hypokalemia (principal); E83.42 Hypomagnesemia
CPT/HCPCS: 80048; 81001; 83735; 84703; 85025; 86850; 86900; 86901; 96360; 96361; 99285; J7030; A4216; J3475

== ENCOUNTER 2019-02-18 23:52 | Emergency (ER) | payer MEDICAID, SELFPAY ==
[2019-02-18 23:53] VITALS: BP 120/78; PULSE 72; RESP 16; TEMP 36.8; O2SAT 98; BMI 26.0
--- NOTE | 2019-02-19 00:14 | ED.VIS.GEN ---
History of Present Illness Chief Complaint: Abn Labs Informant: Patient Onset: Days - 3 Context: Gradual Onset Narrative: Patient is a 38-year-old female with history of short gut syndrome stenting from home with concern for electrolyte abnormalities. Patient states that she had routine blood work done by her primary care doctor a couple days ago which showed that her potassium magnesium are little low. She had been told to increase her dose of potassium however she had run out of the medication. She is been off of her potassium supplements for the past 3 days. Since then patient is having more cramping sensation. She states she is having cramping in her thighs, her ribs and her hands and toes. She states this feels like her prior episodes and her potassium has been low. She came into be evaluated further. She states otherwise she is feeling normal. She has been able to eat and drink normally. She is having watery bowel movements but this is normal for her. She denies any other complaints at this time. Past Medical History - Allergies and Home Meds Allergies/Adverse Reactions: Allergies adhesive Allergy (Verified 02/18/19 23:56) Itching amoxicillin [Amoxicillin] Allergy (Verified 02/18/19 23:56) Hives Penicillins Allergy (Verified 02/18/19 23:56) Hives Primary Care Physician: José Luis Motley MD [Primary Care Provider] - Past Medical History: - - Short gut syndrome Surgical History: - - Emergent laparotomy with subsequent small bowel resection and partial colonic resection Smoking Status: Former smoker - Family History Maternal Family History: Family History (Last Reviewed 01/08/19 @ 11:17 by Marie Maher) Grandmother Diabetes Heart disease Mother Heart disease Grandfather Lung cancer Liver cancer Brain cancer Family History: Reports: Heart Disease Review of Systems All systems negative except as indicated General: Reports: Malaise Gastrointestinal: Reports: Diarrhea - Chronic secondary to short gut syndrome Musculoskeletal: Reports: Myalgias - Cramping Physical Exam Vital Signs/Narrative: Vital Signs Temp Pulse Resp BP Pulse Ox 02/18/19 23:53 98.3 F 72 16 120/78 98 Inital Vital Signs reviewed: Yes General: Well nourished, Well developed, No Acute Distress Head: Normocephalic, Atraumatic Eyes: Perrl, EOMI ENT: Moist mucous membranes, No rhinorrhea. Negative for: Dry mucous membranes Neck: Supple, Nontender Cardiovascular: Regular rate, Regular rhythm, No murmurs Respiratory: No distress, CTA bilaterally, Chest nontender Abdomen: Soft, Nontender, Nondistended, Normal bowel sounds Back: Nontender, Normal Inspection Extremities: Nontender, No edema, - - Compartments in her arms and legs are soft. Negative for: Tenderness, Edema Skin: Normal color, No rash Neurological: Alert, Oriented x3, Cranial nerves II-XII grossly intact, Normal Strength, Normal Sensation Psychological: Normal affect, Normal Mood Diagnostic/Tx/Re-eval Laboratory Data 02/19/19 00:20 Sodium 139 Potassium 2.9 L Chloride 105 Carbon Dioxide 28.0 Anion Gap 6 BUN 10 Creatinine 0.78 Estim Creat Clear Calc 85.27 Est GFR (MDRD) Af Amer 107 Est GFR (MDRD) Non-Af 88 BUN/Creatinine Ratio 12.8 Glucose 84 Calcium 7.9 L Magnesium 1.0 L - Medical Decision Making She evaluated for cramping in her body. She states is consistent with her low potassium which she gets subsequent to short gut syndrome. Patient is been noncompliant with her medications secondary to running out of them. She takes 80 mEq of oral potassium 3 times a day as well as magnesium 3 times a day. Patient states she does not have a prescription for these and would like one. Patient does have low potassium and magnesium but does not require admission for these levels. She is given IV and oral potassium replacement as well as IV magnesium. She is given a new prescription for these medications. Patient is given Toradol in the ER for the cramping. On reevaluation she is improved. Patient is counseled on signs and symptoms requiring return to the emergency room. Patient verbalizes agreement and understand this plan. Patient discharged home in stable and improved condition. ED Disposition - Plan for ED Patient: Diagnosis: Hypokalemia, Hypomagnesemia Instructions: Hypokalemia, Hypomagnesemia Prescriptions: Potassium Chloride [K-Dur] 80 meq PO TID #84 tab Prescription Printed Magnesium Oxide 400 mg PO BID #14 tab Prescription Printed Referrals: José Luis Motley MD [Primary Care Provider] - Additional Instructions: It is very important that you take your potassium and magnesium supplements as prescribe. If you have worsening symptoms. Please follow-up with your primary care provider in the next few days for lab recheck.
[2019-02-19] MEDS: Potassium Chloride 10mEq/100mL 10 MEQ/100 ML IV.SOLN. 100 MEQ IV BOLUS ×2 (00:29→01:37)
[2019-02-19] MEDS: 0.9% Normal Saline 1,000 ML 999 ML IV (00:29)
[2019-02-19 00:34] VITALS: PULSE 63; RESP 14
[2019-02-19 00:45] LABS: Anion Gap 6 (5-15); BUN 10 mg/dL (7-18); BUN/Creat Ratio 12.8 RATIO (10-20); Calcium,Total 7.9 mg/dL (8.5-10.1); Chloride 105 mmol/L (98-107); Creatinine, Serum 0.78 mg/dL (0.55-1.02); EST Glomerular Filtration Rate 88 mL/min (>60); Est Glom Filt Rate - Afr Amer 107 mL/min (>60); Estimated Creatinine Clearance 85.27 ml/min; Glucose 84 mg/dL (74-106); Potassium 2.9 mmol/L (3.5-5.1); Sodium Level 139 mmol/L (136-145)
[2019-02-19] MEDS: Ketorolac 15 MG/ML Vial IV (01:34)
[2019-02-19 03:41] VITALS: PULSE 60; RESP 18; O2SAT 97
[2019-02-19 03:48] VITALS: BP 98/72; PULSE 67; RESP 18; O2SAT 99
== END 2019-02-19 03:50 | disposition home or self-care (01) ==
PROVIDERS: Emergency Provider Emergency Medicine; Family Provider Family Medicine; PCP Family Medicine
DX: E87.6 Hypokalemia (principal); E83.42 Hypomagnesemia; K91.2 Postsurgical malabsorption, not elsewhere classified; Z87.891 Personal history of nicotine dependence
CPT/HCPCS: 80048; 83735; 96365; 96366; 96367; 96375; 99285; J7030; A4216

== ENCOUNTER 2019-03-03 14:43 | Observation (INO) | payer MEDICAID, SELFPAY ==
[2019-03-03 14:44] VITALS: BP 123/84; PULSE 73; RESP 16; TEMP 37.2; O2SAT 100; BMI 27.3
--- NOTE | 2019-03-03 16:21 | EKG12_ITS ---
Test Reason : CP Blood Pressure : / mmHG Vent. Rate : 067 BPM Atrial Rate : 067 BPM P-R Int : 142 ms QRS Dur : 092 ms QT Int : 414 ms P-R-T Axes : 004 010 041 degrees QTc Int : 437 ms Normal sinus rhythm Normal ECG Confirmed by ROSALINA SWIFT ([id number]), graphics editor ANTONIETTA GONZALEZ ([id number]) on 03/06/2019 10:16:19 AM Referred By: MARSHALL Confirmed By:ROSALINA SWIFT
--- NOTE | 2019-03-03 16:23 | ED.DCSUM_ITS ---
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 She is presenting today with 3 to 4 days of increased malaise, fatigue and chest pain. She also states she feels slightly short of breath with this. Patient states she has chest tightness in her left anterior chest that radiates slightly to her back. She has an associated cough with no sputum production. She notes the pain and discomfort is worse with deep inspiration. She also states that she had episode of chills last night. She has nausea as well as a heartburn sensation in her epigastric region as well as her sternum. She continues to have diarrhea which is normal for her. She denies any black or bloody stools. She denies any rash. She denies any urinary symptoms. Past Medical History - Allergies and Home Meds Allergies/Adverse Reactions: Allergies adhesive Allergy (Verified 03/03/19 14:44) Itching amoxicillin [Amoxicillin] Allergy (Verified 03/03/19 14:44) Hives Penicillins Allergy (Verified 03/03/19 14:44) Hives Past Medical History: - - Short gut syndrome, hypertension, hypercoagulability Surgical History: - - Emergent laparotomy with subsequent small bowel resection and partial colonic resection Smoking Status: Former smoker - Family History Maternal Family History: Family History (Last Reviewed 01/08/19 @ 11:17 by Marie Maher) Grandmother Diabetes Heart disease Mother Heart disease Grandfather Lung cancer Liver cancer Brain cancer Family History: Reports: Heart Disease Review of Systems All systems negative except as indicated General: Reports: Malaise Cardiovascular: Reports: Chest pain Respiratory: Reports: Dyspnea Gastrointestinal: Reports: Diarrhea - Chronic Physical Exam Vital Signs/Narrative: Vital Signs Temp Pulse Resp BP Pulse Ox 03/03/19 14:44 99 F 73 16 123/84 H 100 General: Well nourished, Well developed, No Acute Distress Head: Normocephalic, Atraumatic Eyes: Perrl, EOMI ENT: Moist mucous membranes, No rhinorrhea Neck: Supple, Nontender Cardiovascular: Regular rate, Regular rhythm, No murmurs Respiratory: No distress, CTA bilaterally, Chest nontender Abdomen: Soft, Nontender, Nondistended, Normal bowel sounds Back: Nontender, Normal Inspection Extremities: Nontender, No edema Skin: Normal color, No rash Neurological: Alert, Oriented x3, Cranial nerves II-XII grossly intact, Normal Strength, Normal Sensation Psychological: Normal affect, Normal Mood Diagnostic/Tx/Re-eval Chest X-Ray - ED: 2 View, Read by ED Physician, Read by Radiologist, No Acute Disease Clinical Impression(s) from Imaging Studies Chest X-Ray 03/03/19 16:50 IMPRESSION: No acute cardiopulmonary disease or major interval change. Electronically Signed: David Hernandez DO at 17:04 EDT Tel [phone], Service support , Laboratory Data 03/03/19 03/03/19 03/03/19 16:15 16:15 16:15 WBC 5.8 RBC 3.90 L Hgb 10.6 L Hct 35.0 L MCV 89.7 MCH 27.2 MCHC 30.3 L RDW Std Deviation 43.4 RDW Coeff of Jim 13.2 Plt Count 239 MPV 10.0 Immature Gran % (Auto) 0.300 Neut % (Auto) 69.1 Lymph % (Auto) 22.5 [place] % (Auto) 6.9 Eos % (Auto) 0.9 Baso % (Auto) 0.3 Absolute Neuts (auto) 4.0 Absolute Lymphs (auto) 1.30 Nucleated RBC % 0 Sodium 141 Potassium 2.5 L* Chloride 107 Carbon Dioxide 26.0 Anion Gap 8 BUN 7 Creatinine 0.68 Estim Creat Clear Calc 97.81 Est GFR (MDRD) Af Amer 124 Est GFR (MDRD) Non-Af 102 BUN/Creatinine Ratio 10.2 Glucose 70 L Calcium 8.1 L Magnesium Troponin I < 0.015 Lipase 52 L Serum , Qual NEGATIVE Urine Color Urine Clarity Urine pH Ur Specific [place] Urine Protein Urine Glucose (UA) Urine Ketones Urine Occult Blood Urine Nitrite Urine Bilirubin Urine Urobilinogen Ur Leukocyte Esterase Urine RBC Urine WBC Ur Squamous Epith Cells Urine Bacteria Urine Mucus 03/03/19 03/03/19 16:15 16:15 WBC RBC Hgb Hct MCV MCH MCHC RDW Std Deviation RDW Coeff of Jim Plt Count MPV Immature Gran % (Auto) Neut % (Auto) Lymph % (Auto) [place] % (Auto) Eos % (Auto) Baso % (Auto) Absolute Neuts (auto) Absolute Lymphs (auto) Nucleated RBC % Sodium Potassium Chloride Carbon Dioxide Anion Gap BUN Creatinine Estim Creat Clear Calc Est GFR (MDRD) Af Amer Est GFR (MDRD) Non-Af BUN/Creatinine Ratio Glucose Calcium Magnesium 1.0 L Troponin I Lipase Serum , Qual Urine Color Yellow Urine Clarity Clear Urine pH 6.0 Ur Specific [place] 1.020 Urine Protein Negative Urine Glucose (UA) Normal Urine Ketones Negative Urine Occult Blood Negative Urine Nitrite Negative Urine Bilirubin Negative Urine Urobilinogen Normal Ur Leukocyte Esterase Negative Urine RBC 0 SEEN Urine WBC 0-5 SEEN Ur Squamous Epith Cells 0-5 SEEN Urine Bacteria 0 SEEN Urine Mucus 1+ - Rhythm Strip Rhythm Strip: Sinus Rhythm Rate: 67 Ectopy: None - EKG Initial EKG Interpretation: Sinus Rhythm, - - Sinus rhythm at a rate of 67 Normal intervals Normal axis Normal ST segments Compared to prior EKG patient is no longer bradycardic on 12/19/2018 - Medical Decision Making Patient is evaluated for chest pain/Shortness of breath, generalized malaise and fatigue. She does have an extensive history of short gut syndrome electrode abnormalities. On evaluation she appears nontoxic in no acute distress. EKG is relatively normal. Patient has significant electrolyte of normalities including hypokalemia and hypo-magnesium. I attribute this to her short gut syndrome. She is mildly anemic but near her baseline. She has a normal white blood cell count and no infiltrate on chest x-ray. I do not suspect pneumonia at this time. Because of the degree of electrode abnormality she will require admission for elective right replacement. Troponin is negative. Patient is on subcutaneous Lovenox twice a day and I have a low suspicion for PE. Patient is given oral and IV potassium as well as magnesium in the emergency room. Discussed the case with Dr. Jose who is agreeable with admission. Patient is admitted to the PCU. ED Disposition - Plan for ED Patient: Disposition: Acute Care [facility] Diagnosis: Hypokalemia, Hypomagnesemia
[2019-03-03] MEDS: 0.9% Normal Saline 1,000 ML 1000 ML IV (16:28)
[2019-03-03 16:30] LABS: Bacteria 0 SEEN /hpf (None Seen)
[2019-03-03 16:35] LABS: Basophil# 0.02 X10^3/uL; Basophil% 0.3 % (0-1); Eosinophil# 0.05 X10^3/uL; Eosinophils% 0.9 % (0-5); Hemoglobin 10.6 g/dL (12.0-15.0); Lymphocyte % 22.5 % (19-41); Mean Corp Hgb Conc 30.3 g/dL (32-36); Mean Corpuscular Hgb 27.2 pg (27.0-32.0); Mean Corpuscular Volume 89.7 fL (81-99); Monocyte% 6.9 % (0-10); NRBC Flagged by Analyzer 0 % (0-5); Neutrophil % 69.1 % (47-70); Platelet Count 239 K/mm3 (150-450); RBC Distribution Width CV 13.2 % (11.6-14.6); RBC Distribution Width SD 43.4 fl (35.1-43.9); White Blood Count 5.8 K/mm3 (4.4-11.0)
[2019-03-03 16:36] LABS: Color, Urine Yellow (Yellow); Glucose, Dipstick Normal (Normal); Ketone-Dipstick Negative (Negative); Leukocyte Esterase-Dipstick Negative /ul (Negative); Nitrite-Dipstick Negative (Negative); Occult Blood-Urine Negative /ul (Negative); Protein-Dipstick Negative (Negative); Urine Bilirubin Dipstick Negative (Negative); Urine Clarity Clear (Clear); Urine Urobilinogen Normal (Normal)
--- NOTE | 2019-03-03 16:50 | RAD_ITS ---
STUDY: X-RAY CHEST REASON FOR EXAM: Female, 38 years old. Shortness of breath. Left side chest pain. TECHNIQUE: PA and lateral views of the chest. COMPARISON: September 03, 2018. FINDINGS: The lungs are clear and expanded. There is no demonstrated pleural abnormality. Normal size heart. Normal mediastinum and yoly. Normal visualized pulmonary arteries. Normal visualized aortic arch and descending thoracic aorta. Normal visualized thoracic spine. Normal visualized ribs, clavicles, and shoulders. There is no demonstrated abnormality of the visualized soft tissue structures of the upper abdomen. RAD/Chest PA and Lateral IMPRESSION: No acute cardiopulmonary disease or major interval change. Electronically Signed: David Hernandez DO at 17:04 EDT Tel [phone], Service support ,
[2019-03-03 16:51] LABS: Mucous, Urine 1+ /hpf (<or=2+); Red Blood Cells-Urine 0 SEEN /hpf (0-5); Squamous Epithelial Cells - UA 0-5 SEEN /hpf (5-10); White Blood Cells 0-5 SEEN /hpf (0-5)
[2019-03-03 17:00] VITALS: PULSE 64; RESP 18
[2019-03-03] MEDS: Famotidine 20 MG Tablet PO (17:04)
[2019-03-03 17:10] LABS: Anion Gap 8 (5-15); BUN 7 mg/dL (7-18); BUN/Creat Ratio 10.2 RATIO (10-20); Calcium,Total 8.1 mg/dL (8.5-10.1); Chloride 107 mmol/L (98-107); Creatinine, Serum 0.68 mg/dL (0.55-1.02); EST Glomerular Filtration Rate 102 mL/min (>60); Est Glom Filt Rate - Afr Amer 124 mL/min (>60); Estimated Creatinine Clearance 97.81 ml/min; Glucose 70 mg/dL (74-106); Lipase 52 U/L (73-393); Potassium 2.5 mmol/L (3.5-5.1); Sodium Level 141 mmol/L (136-145)
[2019-03-03 17:18] LABS: Internal QC Validated? YES +Cl - CLEAR BKGD; Pregnancy, Serum, hCG Quali. NEGATIVE Negative
[2019-03-03] MEDS: Aspirin 325 MG Tablet PO (17:39)
--- NOTE | 2019-03-03 18:09 | HP.PCM_ITS ---
<Inés Lockett - Last Filed: 03/03/19 18:37> Problem List (1) Iron deficiency anemia Status: Chronic Qualifiers: Iron deficiency anemia type: chronic blood loss Qualified Code(s): D50.0 - Iron deficiency anemia secondary to blood loss (chronic) (2) Protein S deficiency Status: Chronic (3) Protein C deficiency Status: Chronic (4) Pelvic pain Status: Resolved Comment: ovarian cyst seen in [place]- obtain records. (5) Hypokalemia Status: Acute (6) Hypomagnesemia Status: Acute (7) Short gut syndrome Status: Chronic (8) Hypercoagulable state, primary Status: Chronic (9) Ileus Status: Ruled-out History of Present Illness Date of Admission: 03/03/19 Chief Complaint: Chest pressure. The patient is a 38 year old F who presented to the Emergency Department due to chest pressure. Patient reports she has had intermittent chest pressure for the past 2 days. She reports symptoms are worse when she coughs, otherwise denies any aggravating or alleviating factors. Last evening she reports an episode of palpitations and shortness of breath which lasted a short time and then resolved. Patient therapeutic Lovenox injections for protein C and S deficiency. She reports she missed 2 doses recently, last injection this morning. She also has a history of short gut syndrome and reports chronic diarrhea. She states she was previously on loperamide which she stopped taking about 1 month ago due to blood in stool. She reports increased bowel movements and diarrhea since discontinuing loperamide. Past Medical History Past Medical History (Chronic Problems): Chronic Problems (Last Reviewed 01/08/19 @ 11:17 by Marie Maher) Iron deficiency anemia (Chronic) Protein S deficiency (Chronic) Protein C deficiency (Chronic) Short gut syndrome (Chronic) Hypercoagulable state, primary (Chronic) Medical History: Medical History (Last Reviewed 01/08/19 @ 11:17 by Marie Maher) Protein C deficiency D68.59 Protein S deficiency D68.59 Short gut syndrome K91.2 Blood clotting disorder D68.9 Allergies adhesive Allergy (Verified 03/03/19 14:44) Itching amoxicillin [Amoxicillin] Allergy (Verified 03/03/19 14:44) Hives Penicillins Allergy (Verified 03/03/19 14:44) Hives Home Medications: Ambulatory Orders Medication Instructions Recorded Ergocalciferol [Vitamin D] 50,000 unit PO MOTUWETH 10/09/14 Calcium Carbonate [Tums] 500 mg PO TIDCM 04/27/16 BrittPedrito ugalde, B.lactis 1 cap PO DAILY 04/27/16 [Probiotic] Multivit with Calcium,Iron,Min 3 tab PO DAILY 04/27/16 [Multiple Vitamins For Women] magnesium L-lactate ER 84 mg 252 mg PO TID tab 01/24/18 tablet,extended release Enoxaparin [Lovenox] 70 mg SUBCUT BID 09/03/18 Lactose-Reduced Food [Ensure High 237 ml PO TID 09/03/18 Protein] Lisinopril 20 mg PO DAILY 12/19/18 Ferrous Sulfate [Iron] 325 mg PO BID 03/03/19 Potassium Chloride [K-Dur] 80 meq PO TID 03/03/19 Surgical History: Surgical History (Last Reviewed 03/03/19 @ 18:29 by VERONICA Rapp) History of removal of ovarian cyst Z98.890, Z87.42 right Hx of cholecystectomy Z90.49 S/P hernia repair Z98.890, Z87.19 STEPS procedure x2 Surgical History: - - Emergent laparotomy with subsequent small bowel resection and partial colonic resection Psychiatric History: No pertinent psych hx 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 Lives: Spouse/ Significant Other Smoking Status: Former smoker Alcohol: None Drugs: None - *Family History Maternal Family History: Family History (Last Reviewed 01/08/19 @ 11:17 by Marie Maher) Grandmother Diabetes Heart disease Mother Heart disease Grandfather Lung cancer Liver cancer Brain cancer History Items: Heart Disease Paternal Family History: Family History (Last Reviewed 01/08/19 @ 11:17 by Marie Maher) Grandmother Diabetes Heart disease Mother Heart disease Grandfather Lung cancer Liver cancer Brain cancer History Items: Cancer Review of Systems Constitutional: Denies: Chills, Fever, Weight Change HEENT: Denies: Head Aches, Sinus Congestion, Sinus Drainage Cardiovascular: Reports: Chest Pressure, Palpitations. Denies: Syncope Respiratory: Reports: Shortness of Breath - X1 episode. Denies: Cough, Shortness of breath at rest, Sputum production Gastrointestinal: Reports: Diarrhea. Denies: Abdominal Pain, Hematochezia, Nausea, Melena, Vomiting Genitourinary: Denies: Dysuria Musculoskeletal: Denies: Joint Pain, Joint Tenderness Skin: Denies: Rash, Wounds Neurological: Denies: Numbness, Tingling, Focal weakness Psychiatric: Denies: Anxiety, Depression, Homicidal Ideations, Suicidal Ideations Hematologic/ Lymphatic: Denies: Easy Bruising, Easy Bleeding VTE Information - Inpt Only VTE Present on Admission: No VTE Mechan Device Prophylaxis: None VTE Pharm Prophylaxis ordered?: Yes - Physical Exam General: Alert, Oriented x3, Cooperative HEENT: Atraumatic, PERRLA, EOMI, Normocephalic Neck: Supple, No JVD, Negative Carotid Bruits Lungs: Clear to auscultation, Normal air movement Cardiovascular: Regular rate, Regular Rhythm, Normal S1, Normal S2, No murmurs Abdomen: Bowel Sounds Present, Soft, Non Tender, Non-Distended Extremities: No clubbing, No cyanosis, No edema, Capillary Refill Less than 3 Seconds Skin: No rashes, No breakdown Musculoskeletal: No Tenderness to Palpation of Joints or Extremities Neurological: Cranial nerves II-XII grossly intact, Neuro grossly intact Psych/Mental Status: Normal Affect, Appropriate Vital Signs Temp Pulse Resp BP Pulse Ox 99 F 64 18 123/84 H 100 03/03/19 14:44 03/03/19 17:00 03/03/19 17:00 03/03/19 14:44 03/03/19 14:44 Oxygen Delivery Method Room Air Weight: 159 lb Body Mass Index (BMI) 27.3 Laboratory Tests Past 24 Hrs 03/03/19 03/03/19 03/03/19 16:15 16:15 16:15 WBC 5.8 RBC 3.90 L Hgb 10.6 L Hct 35.0 L MCV 89.7 MCH 27.2 MCHC 30.3 L RDW Std Deviation 43.4 RDW Coeff of Jim 13.2 Plt Count 239 MPV 10.0 Immature Gran % (Auto) 0.300 Neut % (Auto) 69.1 Lymph % (Auto) 22.5 [place] % (Auto) 6.9 Eos % (Auto) 0.9 Baso % (Auto) 0.3 Absolute Neuts (auto) 4.0 Absolute Lymphs (auto) 1.30 Nucleated RBC % 0 Sodium 141 Potassium 2.5 L* Chloride 107 Carbon Dioxide 26.0 Anion Gap 8 BUN 7 Creatinine 0.68 Estim Creat Clear Calc 97.81 Est GFR (MDRD) Af Amer 124 Est GFR (MDRD) Non-Af 102 BUN/Creatinine Ratio 10.2 Glucose 70 L Calcium 8.1 L Magnesium Troponin I < 0.015 Lipase 52 L Serum , Qual NEGATIVE Urine Color Urine Clarity Urine pH Ur Specific [place] Urine Protein Urine Glucose (UA) Urine Ketones Urine Occult Blood Urine Nitrite Urine Bilirubin Urine Urobilinogen Ur Leukocyte Esterase Urine RBC Urine WBC Ur Squamous Epith Cells Urine Bacteria Urine Mucus 03/03/19 03/03/19 16:15 16:15 WBC RBC Hgb Hct MCV MCH MCHC RDW Std Deviation RDW Coeff of Jim Plt Count MPV Immature Gran % (Auto) Neut % (Auto) Lymph % (Auto) [place] % (Auto) Eos % (Auto) Baso % (Auto) Absolute Neuts (auto) Absolute Lymphs (auto) Nucleated RBC % Sodium Potassium Chloride Carbon Dioxide Anion Gap BUN Creatinine Estim Creat Clear Calc Est GFR (MDRD) Af Amer Est GFR (MDRD) Non-Af BUN/Creatinine Ratio Glucose Calcium Magnesium 1.0 L Troponin I Lipase Serum , Qual Urine Color Yellow Urine Clarity Clear Urine pH 6.0 Ur Specific [place] 1.020 Urine Protein Negative Urine Glucose (UA) Normal Urine Ketones Negative Urine Occult Blood Negative Urine Nitrite Negative Urine Bilirubin Negative Urine Urobilinogen Normal Ur Leukocyte Esterase Negative Urine RBC 0 SEEN Urine WBC 0-5 SEEN Ur Squamous Epith Cells 0-5 SEEN Urine Bacteria 0 SEEN Urine Mucus 1+ Assessment/Plan All Active Problems (Last Reviewed 01/08/19 @ 11:17 by Marie Maher) Hypokalemia (Acute) Hypomagnesemia (Acute) Hypokalemia (Acute) Hypomagnesemia (Acute) Pelvic pain (Resolved) Ileus (Ruled-out) 1. Hypokalemia and hypomagnesia due to chronic diarrhea as result of short gut syndrome-replace per protocol. Serial K/mg. Previously on loperamide which he stopped taking approximately 1 month ago. Patient will need close follow-up with primary art installer to assess other treatment options. She is chronically on potassium and magnesium supplementation which she reports she is compliant with. 2. Chest pressure-EKG on admission without ST-T changes. Trend enzymes. Repeat EKG in a.m. 3. Chronic iron deficiency anemia-continue iron supplementation. 4. Protein C&S deficiency-on therapeutic Lovenox 5. Former tobacco use-encouraged continued cessation. DVT prophylaxis- Lovenox sc This patient was seen by VERONICA Rapp under the supervision of Dr. Jose. <Lyubov Jose - Last Filed: 03/03/19 20:25> History of Present Illness The patient is a 38 year old F [] Past Medical History Medical History: Medical History (Last Reviewed 01/08/19 @ 11:17 by Marie Maher) Protein C deficiency D68.59 Protein S deficiency D68.59 Short gut syndrome K91.2 Blood clotting disorder D68.9 Allergies adhesive Allergy (Verified 03/03/19 14:44) Itching amoxicillin [Amoxicillin] Allergy (Verified 03/03/19 14:44) Hives Penicillins Allergy (Verified 03/03/19 14:44) Hives Surgical History: Surgical History (Last Reviewed 03/03/19 @ 18:29 by VERONICA Rapp) History of removal of ovarian cyst Z98.890, Z87.42 right Hx of cholecystectomy Z90.49 S/P hernia repair Z98.890, Z87.19 STEPS procedure x2 - *Family History Maternal Family History: Family History (Last Reviewed 01/08/19 @ 11:17 by Marie Maher) Grandmother Diabetes Heart disease Mother Heart disease Grandfather Lung cancer Liver cancer Brain cancer Paternal Family History: Family History (Last Reviewed 01/08/19 @ 11:17 by Marie Maher) Grandmother Diabetes Heart disease Mother Heart disease Grandfather Lung cancer Liver cancer Brain cancer - Physical Exam Vital Signs Temp Pulse Resp BP Pulse Ox 97.7 F L 71 12 137/97 H 100 03/03/19 19:05 03/03/19 19:05 03/03/19 19:05 03/03/19 19:05 03/03/19 19:05 Oxygen Delivery Method Room Air Weight: 68.7 kg Body Mass Index (BMI) 25.9 Intake and Output for Last 24 Hours 03/01/19 03/02/19 03/03/19 23:59 23:59 23:59 Intake Total 1109.53 / 1109.53 Balance 1109.53 / 1109.53 Laboratory Tests Past 24 Hrs 03/03/19 03/03/19 03/03/19 16:15 16:15 16:15 WBC 5.8 RBC 3.90 L Hgb 10.6 L Hct 35.0 L MCV 89.7 MCH 27.2 MCHC 30.3 L RDW Std Deviation 43.4 RDW Coeff of Jim 13.2 Plt Count 239 MPV 10.0 Immature Gran % (Auto) 0.300 Neut % (Auto) 69.1 Lymph % (Auto) 22.5 [place] % (Auto) 6.9 Eos % (Auto) 0.9 Baso % (Auto) 0.3 Absolute Neuts (auto) 4.0 Absolute Lymphs (auto) 1.30 Nucleated RBC % 0 D-Dimer Quant (PE/DVT) Sodium 141 Potassium 2.5 L* Chloride 107 Carbon Dioxide 26.0 Anion Gap 8 BUN 7 Creatinine 0.68 Estim Creat Clear Calc 97.81 Est GFR (MDRD) Af Amer 124 Est GFR (MDRD) Non-Af 102 BUN/Creatinine Ratio 10.2 Glucose 70 L Calcium 8.1 L Magnesium Troponin I < 0.015 Lipase 52 L Serum , Qual NEGATIVE Urine Color Urine Clarity Urine pH Ur Specific [place] Urine Protein Urine Glucose (UA) Urine Ketones Urine Occult Blood Urine Nitrite Urine Bilirubin Urine Urobilinogen Ur Leukocyte Esterase Urine RBC Urine WBC Ur Squamous Epith Cells Urine Bacteria Urine Mucus 03/03/19 03/03/19 03/03/19 16:15 16:15 16:15 WBC RBC Hgb Hct MCV MCH MCHC RDW Std Deviation RDW Coeff of Jim Plt Count MPV Immature Gran % (Auto) Neut % (Auto) Lymph % (Auto) [place] % (Auto) Eos % (Auto) Baso % (Auto) Absolute Neuts (auto) Absolute Lymphs (auto) Nucleated RBC % D-Dimer Quant (PE/DVT) 0.32 Sodium Potassium Chloride Carbon Dioxide Anion Gap BUN Creatinine Estim Creat Clear Calc Est GFR (MDRD) Af Amer Est GFR (MDRD) Non-Af BUN/Creatinine Ratio Glucose Calcium Magnesium 1.0 L Troponin I Lipase Serum , Qual Urine Color Yellow Urine Clarity Clear Urine pH 6.0 Ur Specific [place] 1.020 Urine Protein Negative Urine Glucose (UA) Normal Urine Ketones Negative Urine Occult Blood Negative Urine Nitrite Negative Urine Bilirubin Negative Urine Urobilinogen Normal Ur Leukocyte Esterase Negative Urine RBC 0 SEEN Urine WBC 0-5 SEEN Ur Squamous Epith Cells 0-5 SEEN Urine Bacteria 0 SEEN Urine Mucus 1+ Assessment/Plan This patient was seen in conjunction with Inés Lockett NP. I have independently interviewed and examined the patient and reviewed pertinent historical, laboratory, and other data. Please refer to her note for patient's presentation, findings, and recommendations. 38-year-old with past medical history of protein C & S deficiency, short gut syndrome, history of hypokalemia and hypomagnesemia comes in with complaints of chest pressure. She had been complaining of intermittent chest pressure ongoing for 2 days. This is worse when she takes a deep breath or cough. He is on therapeutic Lovenox and has missed 2 doses recently. She also complains of chronic diarrhea which is a little more than usual. She stopped taking loperamide because of blood in her stool. Denies any dizziness or palpitation or shortness of breath. Vitals were reviewed -stable Physical Exam: Gen: Comfortable, not pale, not jaundiced, alert oriented x3 CVS:HS I +II, regular, no murmurs RESP: Clear to auscultation, point tenderness over the left anterior 5th-7th ribs GI: Midline scar, BS present and normal, nontender, no palpable organs EXT:No edema Labs reviewed: Potassium 2.5, magnesium is 1.0, serum is 8.1, serum albumin is pending D-dimer negative EKG shows normal sinus rhythm ASSESSMENT: 1. Chest pain, likely musculoskeletal 2. Hypomagnesemia 3. Hypokalemia 4. Iron deficiency anemia Meds reviewed Plan: Replace electrolytes Repeat BMP at 9 PM Patient advised to follow-up with her primary surgeon to discuss management for short gut syndrome Continue Lovenox Code Visit Inpatient E&M: 41633 Init Hosp L3
--- NOTE | 2019-03-03 18:14 | NURSING ---
PCU ELECTROLYTE IMBALANCES PAINTSIL
[2019-03-03 18:17] VITALS: BP 155/92; RESP 18
[2019-03-03 18:22] VITALS: BP 155/92
[2019-03-03] MEDS: Potassium Chloride 10mEq/100mL 10 MEQ/100 ML IV.SOLN. 100 MEQ IV BOLUS ×4 (18:31→21:48)
[2019-03-03 19:05] VITALS: BP 137/97; PULSE 71; RESP 12; TEMP 36.5; O2SAT 100
[2019-03-03 19:09] VITALS: BMI 25.9
[2019-03-03 19:15] VITALS: BMI 26.0
[2019-03-03 19:35] LABS: D-Dimer Quantitative (DVT/PE) 0.32 FEU/ug/m (0.27-0.49)
[2019-03-03] MEDS: 0.9% Normal Saline 1,000 ML 150 ML IV (19:42)
[2019-03-03 21:21] LABS: AST(SGOT) 16 U/L (15-37); Alanine Aminotransfer ALT/SGPT 25 U/L (13-56); Albumin, Serum 2.9 g/dL (3.2-5.0); Alkaline Phosphatase 68 U/L (45-117); Anion Gap 7 (5-15); BUN 8 mg/dL (7-18); BUN/Creat Ratio 12.5 RATIO (10-20); Bilirubin, Direct 0.12 mg/dL (0.00-0.30); Calcium,Total 7.7 mg/dL (8.5-10.1); Chloride 109 mmol/L (98-107); Creatinine, Serum 0.64 mg/dL (0.55-1.02); EST Glomerular Filtration Rate 110 mL/min (>60); Est Glom Filt Rate - Afr Amer 134 mL/min (>60); Estimated Creatinine Clearance 103.93 ml/min; Globulin 3.4 g/dL (2.2-4.2); Glucose 98 mg/dL (74-106); Protein, Total 6.3 g/dL (6.4-8.2); Sodium Level 140 mmol/L (136-145)
[2019-03-03 21:50] VITALS: BP 134/88; PULSE 65; PULSE 67; RESP 16; TEMP 36.5; O2SAT 99
[2019-03-03 22:56] LABS: Magnesium 0.8 mg/dL (1.6-2.6)
[2019-03-03] MEDS: Enoxaparin 80 MG/0.8 ML Syringe 70 MG SC (23:02)
[2019-03-04] MEDS: 0.9% Normal Saline 1,000 ML 100 ML IV (02:58)
[2019-03-04 03:00] VITALS: PULSE 56
[2019-03-04 03:50] VITALS: BP 119/79; PULSE 60; RESP 16; TEMP 36.6; O2SAT 98
--- NOTE | 2019-03-04 05:55 | EKG12_ITS ---
Test Reason : AM EKG Blood Pressure : / mmHG Vent. Rate : 056 BPM Atrial Rate : 056 BPM P-R Int : 138 ms QRS Dur : 088 ms QT Int : 458 ms P-R-T Axes : 006 027 039 degrees QTc Int : 441 ms Sinus bradycardia Otherwise normal ECG When compared with ECG of 03-MAR-2019 14:54, MANUAL COMPARISON REQUIRED, DATA IS UNCONFIRMED Confirmed by ROSALINA SWIFT ([id number]), newspaper editor managing ANTONIETTA GONZALEZ ([id number]) on 03/06/2019 10:37:49 AM Referred By: VANESSA Confirmed By:ROSALINA SWIFT
[2019-03-04 06:52] LABS: Anion Gap 5 (5-15); BUN 7 mg/dL (7-18); BUN/Creat Ratio 12.8 RATIO (10-20); Chloride 115 mmol/L (98-107); Creatinine, Serum 0.55 mg/dL (0.55-1.02); EST Glomerular Filtration Rate 132 mL/min (>60); Est Glom Filt Rate - Afr Amer 160 mL/min (>60); Estimated Creatinine Clearance 120.93 ml/min; Glucose 76 mg/dL (74-106); Magnesium 1.9 mg/dL (1.6-2.6); Phosphorus 1.7 mg/dL (2.5-4.9); Potassium 3.9 mmol/L (3.5-5.1); Sodium Level 143 mmol/L (136-145)
[2019-03-04 07:00] VITALS: PULSE 62
[2019-03-04 07:04] LABS: Absolute Lymphocyte Count 1.52 X10^3/uL (0.83-4.51); Absolute Neutrophil Count 2.2 X10^3/uL (2.0-7.7); Basophil# 0.02 X10^3/uL; Basophil% 0.5 % (0-1); Eosinophil# 0.06 X10^3/uL; Eosinophils% 1.4 % (0-5); Hematocrit 32.1 % (37-47); Hemoglobin 9.9 g/dL (12.0-15.0); Lymphocyte # 1.52 X10^3/ul (4.0); Mean Corp Hgb Conc 30.8 g/dL (32-36); Mean Corpuscular Hgb 27.5 pg (27.0-32.0); Mean Corpuscular Volume 89.2 fL (81-99); Mean Platelet Vol. 9.9 fl (6.2-12.0); Monocyte# 0.38 X10^3/uL; NRBC Flagged by Analyzer 0 % (0-5); Neutrophil # 2.22 X10^3/uL (2.7-7.7); Neutrophil % 52.6 % (47-70); Platelet Count 188 K/mm3 (150-450); RBC Distribution Width CV 13.2 % (11.6-14.6); RBC Distribution Width SD 43.2 fl (35.1-43.9); White Blood Count 4.2 K/mm3 (4.4-11.0)
[2019-03-04] MEDS: Ferrous Sulfate 325 MG Tablet PO (09:10)
[2019-03-04] MEDS: Calcium Carbonate 500 MG Tablet PO (09:10)
[2019-03-04] MEDS: Enoxaparin 80 MG/0.8 ML Syringe 70 MG SC (09:11)
[2019-03-04 09:35] VITALS: BP 123/81; PULSE 62; RESP 17; TEMP 36.4; O2SAT 99
--- NOTE | 2019-03-04 09:52 | DCINST_ITS ---
- Discharge Diagnoses Current Active Problems: Current Active and Chronic Problems (Last Reviewed 01/08/19 @ 11:17 by Marie Maher) Hypokalemia (Acute) Hypomagnesemia (Acute) You will use the following diet at home:: Cardiac Your food should be the consistency of: Regular Discharge Activity: Return to Normal Activity Weight Bearing Status: Weight bearing as tolerated Call your doctor if you observe: Fever of 101 or Higher, Shortness of breath, Dizziness, Fainting spells, Chest pain, Increased palpitations (irregular heartbeat), Uncontrolled pain Allergies/Adverse Reactions: Allergies adhesive Allergy (Verified 03/03/19 14:44) Itching amoxicillin [Amoxicillin] Allergy (Verified 03/03/19 14:44) Hives Penicillins Allergy (Verified 03/03/19 14:44) Hives Medications to take at Discharge Ergocalciferol [Vitamin D] 50,000 unit PO MOTUWETH 10/09/14 Calcium Carbonate [Tums] 500 mg PO TIDCM 04/27/16 L.acidoph,Paracasei, B.lactis [Probiotic] 1 cap PO DAILY 04/27/16 Multivit with Calcium,Iron,Min [Multiple Vitamins For Women] 3 tab PO DAILY 04/27/16 magnesium L-lactate ER 84 mg tablet,extended release 252 mg PO TID tab 01/24/18 Enoxaparin [Lovenox] 70 mg SUBCUT BID 09/03/18 Lactose-Reduced Food [Ensure High Protein] 237 ml PO TID 09/03/18 Lisinopril 20 mg PO DAILY 12/19/18 Ferrous Sulfate [Iron] 325 mg PO BID 03/03/19 Potassium Chloride [K-Dur] 80 meq PO TID 03/03/19 Primary Care Physician: José Luis Motley MD [Primary Care Provider] - Please follow up with your Primary Care Physician in: 1 week. Test Results: Test results from this visit will be discussed in further detail at your follow- up appointment, if applicable.
--- NOTE | 2019-03-04 10:14 | CASEMGMT ---
RN [facility] CM to room to meet with patient for initial transition planning/care coordination assessment. DOMINGO LUIS introduced self and role at [facility]. Pt voices understanding and consents to assessment at this time. Pt sitting up on edge of bed in no distress at this time. Pt is A/O at this time and answers all questions appropriately. Care providers, pharmacy, and demographics verified/updated at this time. PCP: [facility] Specialists: Ui Designer and Ceramic Capacitor Processor @ [facility]. Preferred Pharmacy: [facility] Insurance: [employer] Prescription Benefit: Yes Living Will/HPOA: Has both LW and HCPOA, who is her , Lul. Copies of both found on file @ [facility]. LNOK: . Living Arrangements: Lives with and 2 children. Independent. Transportation: Pt states drives self. States is looking for a ride home--she is checking with friends. Pt instructed to let staff know if she is unable to find a ride. DME: Denies using any DME and denies needs. HHC/SNF: No history of SNF. has had HHC in the past after surgery about 5 yrs ago but does not remember name of agency. Denies needs and no needs identified. Pt wishes to return home and states has no concerns with going home at time of discharge. CM to follow for any discharge planning/needs. Pt voices no further concerns/needs at this time. Advised pt to ask for CM if any further questions/concerns/needs arise. Voices understanding. PLAN: Home w/spousal support and discharge plans in place. Cristopher PARKER RN, CM
--- NOTE | 2019-03-04 10:15 | PHA.DC.MR ---
Pharmacy Service has performed discharge medication reconciliation for this patient. Home Medications Ergocalciferol [Vitamin D] 50,000 unit PO MOTUWETH 10/09/14 Calcium Carbonate [Tums] 500 mg PO TIDCM 04/27/16 L.acidoph,Paracasei, B.lactis [Probiotic] 1 cap PO DAILY 04/27/16 Multivit with Calcium,Iron,Min [Multiple Vitamins For Women] 3 tab PO DAILY 04/27/16 magnesium L-lactate ER 84 mg tablet,extended release 252 mg PO TID tab 01/24/18 Enoxaparin [Lovenox] 70 mg SUBCUT BID 09/03/18 Lactose-Reduced Food [Ensure High Protein] 237 ml PO TID 09/03/18 Lisinopril 20 mg PO DAILY 12/19/18 Ferrous Sulfate [Iron] 325 mg PO BID 03/03/19 Potassium Chloride [K-Dur] 80 meq PO TID 03/03/19 The patient's discharge medication list was reviewed for discrepancies and discrepancies were resolved.
--- NOTE | 2019-03-04 11:37 | PCM.DC.SUM ---
Discharge Date and Diagnosis - Problem List Patient Problems: Active and Suspected Problems (Last Reviewed 01/08/19 @ 11:17 by Marie Maher) Hypokalemia (Acute) Hypomagnesemia (Acute) Date of Admission: 03/03/19 Date of Discharge: 03/04/19 - Primary Discharge Diagnosis Active and Suspected Problems (Last Reviewed 01/08/19 @ 11:17 by Marie Maher) #1 severe hypokalemia. #2 hypomagnesemia. #3 hypophosphatemia. 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 She is asymptomatic, no complaints except chronic diarrhea. She denies any more chest pressure or pain which she had yesterday. She denied nausea vomiting. Her vital signs are stable. The patient is a 38 year old F presented to the emergency room because of chest pressure and generalized weakness and he was found to have electrolyte abnormalities including severe hypokalemia, hypomagnesemia and hypophosphatemia. The patient had a history of short gut syndrome secondary to extensive bowel surgery in the past and she has chronic diarrhea. She has been on oral potassium and magnesium supplement. She was found to have potassium of 2.9 and magnesium of 0.8 mg/dL upon admission. Patient complained of chest pressure which was attributed to musculoskeletal pain. Her EKG revealed normal sinus rhythm without evidence of acute ischemic changes. Troponin was negative x3. Her electrolytes replaced and corrected. On the day of discharge, potassium was 3.9 and magnesium was 1.9. Her phosphorus was 1.7 for which she received IV sodium phosphate. Patient symptoms improved, had no more chest pressure or pain and she feels stronger. Her vital signs were stable. Patient discharged home in a stable medical condition, started back on her previous home medications including potassium and magnesium supplement, recommended follow-up with PCP in 1 week and recommend follow-up with her doctor at [facility] who has been following up with her for the short gut syndrome. Patient Problems: Active and Suspected Problems (Last Reviewed 01/08/19 @ 11:17 by Marie Maher) Hypokalemia (Acute) Hypomagnesemia (Acute) - Physical Exam General: Alert, Oriented x3, Cooperative, No apparent distress HEENT: Atraumatic, PERRLA, EOMI, Normocephalic Oral: Moist Mucosa, No Gingival or Mucosal Lesions/ Ulcerations Neck: Supple, No JVD, Negative Carotid Bruits, Trachea Midline, Thyroid Normal Size and Texture Lungs: Clear to auscultation, Normal air movement, No rhonchi, No wheeze, No rales Cardiovascular: Regular rate, Regular Rhythm, Normal S1, Normal S2, PMI Normal Abdomen: Bowel Sounds Present, Soft, Non Tender, Non-Distended, No Hepato-splenomegaly Extremities: No clubbing, No cyanosis, No edema Skin: No rashes, No breakdown Lymphatic: No Cervical, Supraclavicular, or Inguinal Adenopathy Neurological: Cranial nerves II-XII grossly intact, Neuro grossly intact Psych/Mental Status: Normal Affect, Appropriate, Alert and oriented to time, place, person, mood and affect Vital Signs Temp Pulse Resp BP Pulse Ox 97.6 F L 62 17 123/81 H 99 03/04/19 09:35 03/04/19 09:35 03/04/19 09:35 03/04/19 09:35 03/04/19 09:35 Oxygen Delivery Method Room Air Weight: 151 lb 7.321 oz Body Mass Index (BMI) 25.9 Intake and Output for Last 24 Hours 03/02/19 03/03/19 03/04/19 23:59 23:59 23:59 Intake Total 2138.77 / 2913.77 1358.40 / 1358.40 Balance 2138.77 / 2913.77 1358.40 / 1358.40 Laboratory Tests Past 24 Hrs 03/03/19 03/03/19 03/03/19 16:15 16:15 16:15 WBC 5.8 RBC 3.90 L Hgb 10.6 L Hct 35.0 L MCV 89.7 MCH 27.2 MCHC 30.3 L RDW Std Deviation 43.4 RDW Coeff of Jim 13.2 Plt Count 239 MPV 10.0 Immature Gran % (Auto) 0.300 Neut % (Auto) 69.1 Lymph % (Auto) 22.5 [place] % (Auto) 6.9 Eos % (Auto) 0.9 Baso % (Auto) 0.3 Absolute Neuts (auto) 4.0 Absolute Lymphs (auto) 1.30 Nucleated RBC % 0 D-Dimer Quant (PE/DVT) Sodium 141 Potassium 2.5 L* Chloride 107 Carbon Dioxide 26.0 Anion Gap 8 BUN 7 Creatinine 0.68 Estim Creat Clear Calc 97.81 Est GFR (MDRD) Af Amer 124 Est GFR (MDRD) Non-Af 102 BUN/Creatinine Ratio 10.2 Glucose 70 L Calcium 8.1 L Phosphorus Magnesium Total Bilirubin Direct Bilirubin AST ALT Alkaline Phosphatase Troponin I < 0.015 Total Protein Albumin Globulin Lipase 52 L Serum , Qual NEGATIVE Urine Color Urine Clarity Urine pH Ur Specific [place] Urine Protein Urine Glucose (UA) Urine Ketones Urine Occult Blood Urine Nitrite Urine Bilirubin Urine Urobilinogen Ur Leukocyte Esterase Urine RBC Urine WBC Ur Squamous Epith Cells Urine Bacteria Urine Mucus 03/03/19 03/03/19 03/03/19 16:15 16:15 16:15 WBC RBC Hgb Hct MCV MCH MCHC RDW Std Deviation RDW Coeff of Jim Plt Count MPV Immature Gran % (Auto) Neut % (Auto) Lymph % (Auto) [place] % (Auto) Eos % (Auto) Baso % (Auto) Absolute Neuts (auto) Absolute Lymphs (auto) Nucleated RBC % D-Dimer Quant (PE/DVT) 0.32 Sodium Potassium Chloride Carbon Dioxide Anion Gap BUN Creatinine Estim Creat Clear Calc Est GFR (MDRD) Af Amer Est GFR (MDRD) Non-Af BUN/Creatinine Ratio Glucose Calcium Phosphorus Magnesium 1.0 L Total Bilirubin Direct Bilirubin AST ALT Alkaline Phosphatase Troponin I Total Protein Albumin Globulin Lipase Serum , Qual Urine Color Yellow Urine Clarity Clear Urine pH 6.0 Ur Specific [place] 1.020 Urine Protein Negative Urine Glucose (UA) Normal Urine Ketones Negative Urine Occult Blood Negative Urine Nitrite Negative Urine Bilirubin Negative Urine Urobilinogen Normal Ur Leukocyte Esterase Negative Urine RBC 0 SEEN Urine WBC 0-5 SEEN Ur Squamous Epith Cells 0-5 SEEN Urine Bacteria 0 SEEN Urine Mucus 1+ 03/03/19 03/03/19 03/03/19 20:38 20:38 23:22 WBC RBC Hgb Hct MCV MCH MCHC RDW Std Deviation RDW Coeff of Jim Plt Count MPV Immature Gran % (Auto) Neut % (Auto) Lymph % (Auto) [place] % (Auto) Eos % (Auto) Baso % (Auto) Absolute Neuts (auto) Absolute Lymphs (auto) Nucleated RBC % D-Dimer Quant (PE/DVT) Sodium 140 Potassium 3.0 L Chloride 109 H Carbon Dioxide 24.0 Anion Gap 7 BUN 8 Creatinine 0.64 Estim Creat Clear Calc 103.93 Est GFR (MDRD) Af Amer 134 Est GFR (MDRD) Non-Af 110 BUN/Creatinine Ratio 12.5 Glucose 98 Calcium 7.7 L Phosphorus Magnesium 0.8 L* Total Bilirubin 0.30 Direct Bilirubin 0.12 AST 16 ALT 25 Alkaline Phosphatase 68 Troponin I < 0.015 < 0.015 Total Protein 6.3 L Albumin 2.9 L Globulin 3.4 Lipase Serum , Qual Urine Color Urine Clarity Urine pH Ur Specific [place] Urine Protein Urine Glucose (UA) Urine Ketones Urine Occult Blood Urine Nitrite Urine Bilirubin Urine Urobilinogen Ur Leukocyte Esterase Urine RBC Urine WBC Ur Squamous Epith Cells Urine Bacteria Urine Mucus 03/04/19 03/04/19 06:00 06:00 WBC 4.2 L RBC 3.60 L Hgb 9.9 L Hct 32.1 L MCV 89.2 MCH 27.5 MCHC 30.8 L RDW Std Deviation 43.2 RDW Coeff of Jim 13.2 Plt Count 188 MPV 9.9 Immature Gran % (Auto) 0.500 Neut % (Auto) 52.6 Lymph % (Auto) 36.0 [place] % (Auto) 9.0 Eos % (Auto) 1.4 Baso % (Auto) 0.5 Absolute Neuts (auto) 2.2 Absolute Lymphs (auto) 1.52 Nucleated RBC % 0 D-Dimer Quant (PE/DVT) Sodium 143 Potassium 3.9 Chloride 115 H Carbon Dioxide 23.0 Anion Gap 5 BUN 7 Creatinine 0.55 Estim Creat Clear Calc 120.93 Est GFR (MDRD) Af Amer 160 Est GFR (MDRD) Non-Af 132 BUN/Creatinine Ratio 12.8 Glucose 76 Calcium 7.0 L Phosphorus 1.7 L Magnesium 1.9 Total Bilirubin Direct Bilirubin AST ALT Alkaline Phosphatase Troponin I Total Protein Albumin Globulin Lipase Serum , Qual Urine Color Urine Clarity Urine pH Ur Specific [place] Urine Protein Urine Glucose (UA) Urine Ketones Urine Occult Blood Urine Nitrite Urine Bilirubin Urine Urobilinogen Ur Leukocyte Esterase Urine RBC Urine WBC Ur Squamous Epith Cells Urine Bacteria Urine Mucus Discharge Activity: Return to Normal Activity Weight Bearing Status: Weight bearing as tolerated Call your doctor if you observe: Fever of 101 or Higher, Shortness of breath, Dizziness, Fainting spells, Chest pain, Increased palpitations (irregular heartbeat), Uncontrolled pain Home Medications: Medications to take at Discharge Ergocalciferol [Vitamin D] 50,000 unit PO MOTUWETH 10/09/14 Calcium Carbonate [Tums] 500 mg PO TIDCM 04/27/16 L.acidoph,Paracasei, B.lactis [Probiotic] 1 cap PO DAILY 04/27/16 Multivit with Calcium,Iron,Min [Multiple Vitamins For Women] 3 tab PO DAILY 04/27/16 magnesium L-lactate ER 84 mg tablet,extended release 252 mg PO TID tab 01/24/18 Enoxaparin [Lovenox] 70 mg SUBCUT BID 09/03/18 Lactose-Reduced Food [Ensure High Protein] 237 ml PO TID 09/03/18 Lisinopril 20 mg PO DAILY 12/19/18 Ferrous Sulfate [Iron] 325 mg PO BID 03/03/19 Potassium Chloride [K-Dur] 80 meq PO TID 03/03/19 Primary Care Physician: José Luis Motley MD [Primary Care Provider] - Please follow up with your Primary Care Physician in: 1 week. Please Follow Up With: Gianni Prescott MD Disposition: Home Minutes spent on discharge:: 25 Patient Condition:: Stable Medical Necessity - Tobacco Use Smoking Status: Former smoker Meaningful Use Info Meaningful Use Diagnoses (Choose all that apply): None applicable Code Visit OBSV E&M: 17749 Observation care discharge
== END 2019-03-04 09:52 | disposition home or self-care (01) ==
LOC: ED 16:29 → PCU 18:32
PROVIDERS: Family Medicine; Nurse Practitioner Family; Admitting Provider Internal Medicine; Emergency Provider Emergency Medicine; Family Provider Family Medicine; PCP Family Medicine; Visit Provider Hospitalist
DX: E87.6 Hypokalemia (principal); E83.42 Hypomagnesemia; E83.39 Other disorders of phosphorus metabolism; R07.89 Other chest pain; K91.2 Postsurgical malabsorption, not elsewhere classified; R06.02 Shortness of breath; Z87.891 Personal history of nicotine dependence; I10 Essential (primary) hypertension; Z79.899 Other long term (current) drug therapy; Z79.01 Long term (current) use of anticoagulants; D50.0 Iron deficiency anemia secondary to blood loss (chronic); D68.59 Other primary thrombophilia; K52.9 Noninfective gastroenteritis and colitis, unspecified
CPT/HCPCS: 36415; 71046; 80048; 80076; 81001; 83690; 83735; 84100; 84484; 84703; 85025; 85379; 93005; 96360; 96361; 96372; 99218; 99285; J7030; J7040; J7050; A4216; G0378

== ENCOUNTER 2019-03-06 18:57 | Emergency (ER) | payer MEDICAID, SELFPAY ==
[2019-03-06 18:58] VITALS: BP 106/73; PULSE 61; RESP 14; TEMP 36.8; O2SAT 100; BMI 26.8
--- NOTE | 2019-03-06 19:51 | US_ITS ---
STUDY: ULTRASOUND OF THE FEMALE PELVIS - COMPLETE REASON FOR EXAM: Female, 38 years old. Pelvic TECHNIQUE: Transabdominal and transvaginal ultrasound images were obtained of the pelvis TECHNICAL QUALITY: Adequate. COMPARISON: Pelvic ultrasound December 19, 2018 FINDINGS: The uterus measures 8.9 x 5 x 5 cm. Normal uterine cervix. The endometrium measures 5 mm in thickness. There is no demonstrated myometrial mass. An IUD is in place. The right ovary measures 3.2 x 4.4 x 3 cm. There is a 2.1 cm cyst and 2.3 cm cyst. There is no visualized right adnexal mass or complex lesion. There is normal arterial and normal venous vascularity. The left ovary is not visualized. There is no fluid in the cul-de-sac. US/Transvaginal Non- IMPRESSION: Right ovarian dominant physiologic cysts. No acute pelvic pathology identified. Electronically Signed: Kota Bowden, at 22:21 EDT Tel , Service support ,
[2019-03-06 19:59] LABS: Absolute Lymphocyte Count 1.34 X10^3/uL (0.83-4.51); Basophil# 0.03 X10^3/uL; Basophil% 0.4 % (0-1); Eosinophil# 0.08 X10^3/uL; Eosinophils% 1.2 % (0-5); Hematocrit 36.1 % (37-47); Hemoglobin 10.6 g/dL (12.0-15.0); Lymphocyte # 1.34 X10^3/ul (4.0); Lymphocyte % 19.4 % (19-41); Mean Corp Hgb Conc 29.4 g/dL (32-36); Mean Corpuscular Hgb 27.1 pg (27.0-32.0); Mean Corpuscular Volume 92.3 fL (81-99); Monocyte% 5.8 % (0-10); NRBC Flagged by Analyzer 0 % (0-5); Neutrophil # 5.03 X10^3/uL (2.7-7.7); Neutrophil % 72.9 % (47-70); Platelet Count 253 K/mm3 (150-450); RBC Distribution Width CV 13.6 % (11.6-14.6); RBC Distribution Width SD 45.4 fl (35.1-43.9); Red Blood Count 3.91 M/mm3 (4.2-5.4); White Blood Count 6.9 K/mm3 (4.4-11.0)
[2019-03-06] MEDS: Morphine 4 MG/ML Syringe IV (20:03)
[2019-03-06 20:11] LABS: ALB/GLOB Ratio 0.9 RATIO (0.9-2.4); AST(SGOT) 19 U/L (15-37); Alanine Aminotransfer ALT/SGPT 26 U/L (13-56); Albumin, Serum 3.1 g/dL (3.2-5.0); Alkaline Phosphatase 70 U/L (45-117); Anion Gap 8 (5-15); BUN 7 mg/dL (7-18); Calcium,Total 8.6 mg/dL (8.5-10.1); Chloride 110 mmol/L (98-107); Creatinine, Serum 0.78 mg/dL (0.55-1.02); EST Glomerular Filtration Rate 88 mL/min (>60); Est Glom Filt Rate - Afr Amer 107 mL/min (>60); Estimated Creatinine Clearance 85.27 ml/min; Globulin 3.5 g/dL (2.2-4.2); Glucose 91 mg/dL (74-106); Potassium 3.1 mmol/L (3.5-5.1); Protein, Total 6.6 g/dL (6.4-8.2); Sodium Level 142 mmol/L (136-145)
[2019-03-06 21:02] LABS: Bacteria 0 SEEN /hpf (None Seen); White Blood Cells 0 SEEN /hpf (0-5)
[2019-03-06 21:21] LABS: Color, Urine Yellow (Yellow); Glucose, Dipstick Normal (Normal); Ketone-Dipstick 5 mg/dl (Negative); Leukocyte Esterase-Dipstick 25 /ul (Negative); Nitrite-Dipstick Negative (Negative); Occult Blood-Urine 250 /ul (Negative); Protein-Dipstick 30 mg/dl (Negative); Urine Bilirubin Dipstick Negative (Negative); Urine Clarity Clear (Clear); Urine Urobilinogen Normal (Normal)
[2019-03-06 21:24] LABS: Red Blood Cells-Urine 25-50 SEEN /hpf (0-5); Squamous Epithelial Cells - UA 0-5 SEEN /hpf (5-10)
--- NOTE | 2019-03-06 21:25 | ED.DCSUM_ITS ---
History of Present Illness Chief Complaint: Abd Pain Informant: Patient Onset: Today Context: Sudden Onset Timing: Continuous, Waxes and wanes Current Severity: Moderate Maximum Severity: Severe Narrative: Patient is a 38-year-old female with history of ovarian cyst as well as short gut syndrome presenting with pelvic pain. Patient states prior to arrival she suddenly developed left pelvic pain. She states it caused her to bend over because the pain was so severe. She describes it as sharp. The pain is been constant but fluctuates in intensity. It does not radiate. She is currently on her menstrual cycle. Patient states she has an IUD and is not concern for . Patient denies any associated nausea or vomiting. She denies any other complaints at this time. Prior similar symptoms: Yes - Ovarian cyst Past Medical History - Allergies and Home Meds Allergies/Adverse Reactions: Allergies adhesive Allergy (Verified 03/06/19 19:00) Itching amoxicillin [Amoxicillin] Allergy (Verified 03/06/19 19:00) Hives Penicillins Allergy (Verified 03/06/19 19:00) Hives Primary Care Physician: José Luis Motley MD [Primary Care Provider] - Surgical History: - - Emergent laparotomy with subsequent small bowel resection and partial colonic resection Smoking Status: Never smoker - Family History Paternal Family History: Family History (Last Reviewed 01/08/19 @ 11:17 by Marie Maher) Grandmother Diabetes Heart disease Mother Heart disease Grandfather Lung cancer Liver cancer Brain cancer Family History: Reports: Cancer Maternal Family History: Family History (Last Reviewed 01/08/19 @ 11:17 by Marie Maher) Grandmother Diabetes Heart disease Mother Heart disease Grandfather Lung cancer Liver cancer Brain cancer Family History: Reports: Unknown Review of Systems Gastrointestinal: Reports: Abdominal pain - left lower Physical Exam Vital Signs/Narrative: Vital Signs Temp Pulse Resp BP Pulse Ox 03/06/19 18:58 98.3 F 61 14 106/73 100 Inital Vital Signs reviewed: Yes General: Well nourished, Well developed, No Acute Distress Head: Normocephalic, Atraumatic Eyes: Perrl, EOMI ENT: Moist mucous membranes, No rhinorrhea Neck: Supple, Nontender Cardiovascular: Regular rate, Regular rhythm, No murmurs Respiratory: No distress, CTA bilaterally, Chest nontender Abdomen: Soft, Nondistended, Normal bowel sounds, Tender, Hyperactive bowel sounds. Negative for: Guarding, Rebound tenderness Back: Nontender, Normal Inspection Extremities: Nontender, No edema Skin: Normal color, No rash Neurological: Alert, Oriented x3, Cranial nerves II-XII grossly intact, Normal Strength, Normal Sensation Psychological: Normal affect, Normal Mood Diagnostic/Tx/Re-eval Laboratory Results - last 24 hr 03/06/19 03/06/19 03/06/19 19:10 19:10 20:55 WBC 6.9 RBC 3.91 L Hgb 10.6 L Hct 36.1 L MCV 92.3 MCH 27.1 MCHC 29.4 L RDW Std Deviation 45.4 H RDW Coeff of Jim 13.6 Plt Count 253 MPV 10.0 Immature Gran % (Auto) 0.300 Neut % (Auto) 72.9 H Lymph % (Auto) 19.4 [place] % (Auto) 5.8 Eos % (Auto) 1.2 Baso % (Auto) 0.4 Absolute Neuts (auto) 5.0 Absolute Lymphs (auto) 1.34 Nucleated RBC % 0 Sodium 142 Potassium 3.1 L Chloride 110 H Carbon Dioxide 24.0 Anion Gap 8 BUN 7 Creatinine 0.78 Estim Creat Clear Calc 85.27 Est GFR (MDRD) Af Amer 107 Est GFR (MDRD) Non-Af 88 BUN/Creatinine Ratio 9.0 L Glucose 91 Calcium 8.6 Total Bilirubin 0.30 AST 19 ALT 26 Alkaline Phosphatase 70 Total Protein 6.6 Albumin 3.1 L Globulin 3.5 Albumin/Globulin Ratio 0.9 Urine Color Yellow Urine Clarity Clear Urine pH 6.0 Ur Specific [place] 1.020 Urine Protein 30 H Urine Glucose (UA) Normal Urine Ketones 5 H Urine Occult Blood 250 H Urine Nitrite Negative Urine Bilirubin Negative Urine Urobilinogen Normal Ur Leukocyte Esterase 25 H Urine RBC 25-50 SEEN Urine WBC 0 SEEN Ur Squamous Epith Cells 0-5 SEEN Calcium Oxalate Crystal 2+ Urine Bacteria 0 SEEN Hyaline Casts 0-5 SEEN Urine Mucus 1+ - Medical Decision Making Patient is evaluated for left lower abdominal pain. She appears nontoxic and in no acute distress. Her vital signs are normal. Patient has chronic diarrhea but this is unchanged. She denies any abnormalities in her bowel movements. I suspect she might have an ovarian cyst which is causing her symptoms that she states she had similar symptoms in the past of breath but it spent. Patient is given a dose of IV morphine for pain control. Ultrasound is obtained to further evaluate this and rule out torsion. The left ovary was unable to be visualized. Did review prior images which show that in June patient had a normal ovary with no cyst or mass. In light of normal ultrasound 6 months ago the chances of her having a new mass causing her torsion are quite low. As patient had improvement of her symptoms I think that she is a good candidate for outpatient gynecology follow-up at this time. She is counseled that we were unable to get good visualization of the ovary and should she have any worsening symptoms she should return immediately to the emergency room. Patient's potassium is mildly low. This is actually better than her baseline. He is encouraged to take an extra dose of her potassium supplement today. Patient verbalizes agreement understanding with this plan. She is discharged home in stable condition. Patient is given a dose of Tylenol just prior to discharge per her request. ED Disposition - Plan for ED Patient: Disposition: Home or Assisted Living Diagnosis: Pelvic pain Instructions: ABDOMINAL PAIN, Unknown Cause, (Female) Referrals: José Luis Motley MD [Primary Care Provider] - Additional Instructions: Return to the emergency room if you develop worsening symptoms. Follow-up with your REFINERY PIPELINE OPERATOR. You may take Tylenol or Motrin as needed for pain. Your potassium was mildly low today. You can take an extra dose of potassium at home.
[2019-03-06 21:26] LABS: Hyaline Cast 0-5 SEEN /lpf (0-5); Mucous, Urine 1+ /hpf (<or=2+)
[2019-03-06 21:28] LABS: Calcium Oxalate Crystals Ur 2+ /hpf (<or=2+)
[2019-03-06 22:05] VITALS: BP 100/65; PULSE 57; RESP 14; O2SAT 97
[2019-03-06] MEDS: Acetaminophen 500 MG Tablet 1000 MG PO (23:01)
[2019-03-06 23:04] VITALS: BP 103/73; PULSE 58; RESP 16; O2SAT 98
== END 2019-03-06 23:04 | disposition home or self-care (01) ==
PROVIDERS: Emergency Provider Emergency Medicine; Family Provider Family Medicine; PCP Family Medicine
DX: R10.2 Pelvic and perineal pain (principal); E87.6 Hypokalemia
CPT/HCPCS: 76830; 80053; 81001; 85025; 93976; 96374; 99284; A4216

== ENCOUNTER 2019-03-11 13:49 | Emergency (ER) | payer MEDICAID, SELFPAY ==
[2019-03-11 13:53] VITALS: BP 123/81; PULSE 80; RESP 18; TEMP 37; O2SAT 99; BMI 26.2
--- NOTE | 2019-03-11 15:35 | ED.VIS.GEN ---
History of Present Illness Chief Complaint: Abn Labs Detail of Chief Complaint: Low potassium and magnesium Informant: Patient Narrative: Patient has a history of short gut syndrome. She has problems with her potassium and magnesium dropping too low. She had outpatient labs performed on the at [facility]. Potassium is 3.0 and her magnesium is 2.1. She does take oral supplements but has difficulty absorbing them. Her nutrition team called her today and asked her to come in for an IV infusion. They are making arrangements for her to receive weekly IV infusions at the [facility]. Patient has no chest pain, palpitations, lightheadedness, or dizziness. She has been having intermittent left lower quadrant pain. Past Medical History - Allergies and Home Meds Allergies/Adverse Reactions: Allergies adhesive Allergy (Verified 03/11/19 13:56) Itching amoxicillin [Amoxicillin] Allergy (Verified 03/11/19 13:56) Hives Penicillins Allergy (Verified 03/11/19 13:56) Hives Primary Care Physician: José Luis Motley MD [Primary Care Provider] - Prior records reviewed: Yes Past Medical History: - - Reviewed Surgical History: - - Emergent laparotomy with subsequent small bowel resection and partial colonic resection Smoking Status: Never smoker - Family History Paternal Family History: Family History (Last Reviewed 01/08/19 @ 11:17 by Marie Maher) Grandmother Diabetes Heart disease Mother Heart disease Grandfather Lung cancer Liver cancer Brain cancer Family History: Reports: Cancer Maternal Family History: Family History (Last Reviewed 01/08/19 @ 11:17 by Marie Maher) Grandmother Diabetes Heart disease Mother Heart disease Grandfather Lung cancer Liver cancer Brain cancer Family History: Reports: Unknown Review of Systems General: Denies: Chills, Fever Eyes: Denies: Visual changes - bilaterally ENT: Denies: Bilateral ear pain Cardiovascular: Denies: Chest pain, Palpitations Respiratory: Denies: Dyspnea, Cough Gastrointestinal: Reports: Abdominal pain. Denies: Nausea, Vomiting, Diarrhea Genitourinary: Denies: Dysuria Musculoskeletal: Denies: Extremity Pain Skin: Denies: Rash Neurological: Denies: Headache, Weakness Physical Exam Vital Signs/Narrative: Vital Signs Temp Pulse Resp BP Pulse Ox 03/11/19 13:53 98.6 F 80 18 123/81 H 99 Inital Vital Signs reviewed: Yes General: Well nourished, Well developed Head: Normocephalic ENT: Moist mucous membranes Neck: Supple Cardiovascular: Regular rate, Regular rhythm Respiratory: No distress, CTA bilaterally Abdomen: Soft, Tender - Mild tenderness of the left lower quadrant. Palpable soft hernia noted., Hypoactive bowel sounds Back: Nontender Extremities: Nontender Skin: Normal color Neurological: Alert, Oriented x3 Psychological: Normal affect Diagnostic/Tx/Re-eval Laboratory Results 03/11/19 03/11/19 16:25 16:25 WBC 4.5 RBC 3.24 L Hgb 8.7 L Hct 29.0 L MCV 89.5 MCH 26.9 L MCHC 30.0 L RDW Std Deviation 46.4 H RDW Coeff of Jim 14.5 Plt Count 218 MPV 9.7 Immature Gran % (Auto) 0.200 Neut % (Auto) 57.5 Lymph % (Auto) 33.0 [place] % (Auto) 7.3 Eos % (Auto) 1.3 Baso % (Auto) 0.7 Absolute Neuts (auto) 2.6 Absolute Lymphs (auto) 1.49 Nucleated RBC % 0 Sodium 141 Potassium 3.0 L Chloride 109 H Carbon Dioxide 26.0 Anion Gap 6 BUN 6 L Creatinine 0.58 Estim Creat Clear Calc 113.57 Est GFR (MDRD) Af Amer 150 Est GFR (MDRD) Non-Af 124 BUN/Creatinine Ratio 10.3 Glucose 88 Calcium 8.1 L Magnesium 1.2 L - Medical Decision Making Patient was given magnesium and potassium IV. I did review her labs with her. Her hemoglobin has dropped, but she has fluctuated in the past 2 levels lower than this. She states that she has excessively heavy menstrual cycles and just ended her menstrual cycle on the . This is likely why her hemoglobin dropped. She has had no blood in her stool. She states she just got an IUD placed and attempts to help control her heavy bleeding, but she may require a hysterectomy. Patient is given an outpatient order to have her labs repeated in 2 days. She is comfortable with this plan. ED Disposition - Plan for ED Patient: Disposition: Home or Assisted Living Diagnosis: Hypokalemia, Hypomagnesemia Instructions: Hypomagnesemia, ANEMIA, Type Not Specified (Adult), Hypokalemia Referrals: José Luis Motley MD [Primary Care Provider] -
[2019-03-11 16:37] LABS: Absolute Lymphocyte Count 1.49 X10^3/uL (0.83-4.51); Absolute Neutrophil Count 2.6 X10^3/uL (2.0-7.7); Basophil# 0.03 X10^3/uL; Basophil% 0.7 % (0-1); Eosinophil# 0.06 X10^3/uL; Eosinophils% 1.3 % (0-5); Hemoglobin 8.7 g/dL (12.0-15.0); Lymphocyte # 1.49 X10^3/ul (4.0); Mean Corpuscular Hgb 26.9 pg (27.0-32.0); Mean Corpuscular Volume 89.5 fL (81-99); Mean Platelet Vol. 9.7 fl (6.2-12.0); Monocyte# 0.33 X10^3/uL; Monocyte% 7.3 % (0-10); NRBC Flagged by Analyzer 0 % (0-5); Neutrophil # 2.59 X10^3/uL (2.7-7.7); Neutrophil % 57.5 % (47-70); Platelet Count 218 K/mm3 (150-450); RBC Distribution Width CV 14.5 % (11.6-14.6); RBC Distribution Width SD 46.4 fl (35.1-43.9); Red Blood Count 3.24 M/mm3 (4.2-5.4); White Blood Count 4.5 K/mm3 (4.4-11.0)
[2019-03-11 16:42] LABS: Anion Gap 6 (5-15); BUN 6 mg/dL (7-18); BUN/Creat Ratio 10.3 RATIO (10-20); Calcium,Total 8.1 mg/dL (8.5-10.1); Chloride 109 mmol/L (98-107); Creatinine, Serum 0.58 mg/dL (0.55-1.02); EST Glomerular Filtration Rate 124 mL/min (>60); Est Glom Filt Rate - Afr Amer 150 mL/min (>60); Estimated Creatinine Clearance 113.57 ml/min; Glucose 88 mg/dL (74-106); Magnesium 1.2 mg/dL (1.6-2.6); Sodium Level 141 mmol/L (136-145)
[2019-03-11] MEDS: Potassium Chloride 10mEq/100mL 10 MEQ/100 ML IV.SOLN. 100 MEQ IV BOLUS ×4 (16:50→19:55)
--- NOTE | 2019-03-11 17:44 | ED.RN ---
pt arrives to ed with order for mag. policy was pupped off [employer]. prior assessment to medication as follows: breath sounds clear in all quads at a rate 18. deep tendons reflexes 2+ (average). no clonus. oxygen 97 % on room air. she is a&o x4. re-eval in 15 min, 30 min, and 1 hr.
[2019-03-11 17:58] VITALS: BP 142/101; PULSE 63; RESP 15; O2SAT 100
--- NOTE | 2019-03-11 18:02 | ED.RN ---
first set of repeat vitals. breath sound clear bilat. rate 21. deep tendon reflexes 2+ (average). no clonus. oxygen 98% on room air a&o x4 next eval 30 min.
--- NOTE | 2019-03-11 18:50 | ED.RN ---
Addendum entered by Sanket Canchola 03/11/19 18:52: 1829 time of eval. error in initial time. Original Note: 1629 second re-eval breath sound clear bilat at a rate 19. reflexes 2+. no clonus. 100% room air. a&o x4
[2019-03-11 21:41] VITALS: PULSE 81; RESP 18; O2SAT 96
== END 2019-03-11 21:42 | disposition home or self-care (01) ==
PROVIDERS: Emergency Provider Emergency Medicine; Family Provider Family Medicine; PCP Family Medicine
DX: E87.6 Hypokalemia (principal); E83.42 Hypomagnesemia
CPT/HCPCS: 80048; 83735; 85025; 96365; 96366; 96367; 99283; J7030; A4216

== ENCOUNTER → 2019-03-13 09:45 | Outpatient (CLI) | payer MEDICAID, SELFPAY ==
[2019-03-11 13:53] VITALS: BMI 26.2
[2019-03-13 10:26] LABS: Absolute Lymphocyte Count 1.19 X10^3/uL (0.83-4.51); Absolute Neutrophil Count 2.5 X10^3/uL (2.0-7.7); Basophil# 0.02 X10^3/uL; Basophil% 0.5 % (0-1); Eosinophil# 0.07 X10^3/uL; Eosinophils% 1.8 % (0-5); Hemoglobin 9.1 g/dL (12.0-15.0); Lymphocyte # 1.19 X10^3/ul (4.0); Lymphocyte % 29.8 % (19-41); Mean Corp Hgb Conc 29.4 g/dL (32-36); Mean Corpuscular Hgb 27.2 pg (27.0-32.0); Mean Corpuscular Volume 92.5 fL (81-99); Monocyte# 0.26 X10^3/uL; Monocyte% 6.5 % (0-10); NRBC Flagged by Analyzer 0 % (0-5); Neutrophil # 2.45 X10^3/uL (2.7-7.7); Neutrophil % 61.1 % (47-70); Platelet Count 226 K/mm3 (150-450); RBC Distribution Width CV 14.6 % (11.6-14.6); RBC Distribution Width SD 48.4 fl (35.1-43.9); Red Blood Count 3.35 M/mm3 (4.2-5.4)
[2019-03-13 11:07] LABS: Anion Gap 6 (5-15); BUN 4 mg/dL (7-18); BUN/Creat Ratio 6.1 RATIO (10-20); Calcium,Total 8.1 mg/dL (8.5-10.1); Chloride 111 mmol/L (98-107); Creatinine, Serum 0.65 mg/dL (0.55-1.02); EST Glomerular Filtration Rate 108 mL/min (>60); Est Glom Filt Rate - Afr Amer 131 mL/min (>60); Glucose 77 mg/dL (74-106); Magnesium 1.6 mg/dL (1.6-2.6); Potassium 3.3 mmol/L (3.5-5.1); Sodium Level 143 mmol/L (136-145)
== END ==
PROVIDERS: Family Provider Family Medicine; PCP Family Medicine; Referring Provider Emergency Medicine; Visit Provider Emergency Medicine
DX: D64.9 Anemia, unspecified (principal); E87.6 Hypokalemia; E83.42 Hypomagnesemia
CPT/HCPCS: 36415; 80048; 83735; 85025

== ENCOUNTER 2019-03-23 13:07 | Emergency (ER) | payer MEDICAID, SELFPAY ==
[2019-03-23 13:08] VITALS: BP 140/99; PULSE 96; RESP 19; TEMP 37.1; O2SAT 98; BMI 25.9
--- NOTE | 2019-03-23 13:25 | CT_ITS ---
STUDY: CT ABDOMEN AND PELVIS WITH CONTRAST REASON FOR EXAM: Female, 39 years old. Abdominal pain. Short gut syndrome. RADIATION DOSAGE (If Supplied By Facility): CTDIvol = ( 12.24 ) mGy, DLP = ( 562.59 ) mGycm TECHNIQUE: Transaxial images were obtained from the dome of the diaphragm to the symphysis pubis with oral contrast. IV/Oral Isovue 300 100 was administered. Sagittal and coronal images were reconstructed. Individualized dose optimization techniques were used for this CT. COMPARISON: Comparison is made with prior examination dated December 19, 2018. FINDINGS: The visualized lung bases are unremarkable. The visualized portions of the heart are within normal limits. There is decreased attenuation of the liver consistent with steatosis. There are surgical clips in the gallbladder fossa consistent with a prior cholecystectomy. Normal spleen. Normal pancreas. Normal bilateral adrenal glands. Normal right kidney. Normal left kidney. Multiple surgical clips are seen in the right upper quadrant as well as in the right mid abdomen. There is a small hiatal hernia. The stomach is distended with fluid. There is evidence of a small bowel resection. Stable appearance of the dilated small bowel loops with air-fluid levels as well as the colon with moderate amount of fecal material down to the region of the rectum. There is non-visualization of the appendix. There is scattered atherosclerotic calcification of the abdominal aorta, without a demonstrated aneurysm. Normal inferior vena cava. Normal retroperitoneum. Normal urinary bladder. IUD is seen within the uterus. Normal abdominal wall. Normal osseous structures. CT/Abdomen/Pelvis WITH Contrast IMPRESSION: Stable postoperative appearance of the small bowel loops with dilatation as well as distended colon down to the region of the rectum. Diffuse fatty eventration of the liver. Electronically Signed: Steve Gan, at 15:33 EST , Service support ,
[2019-03-23] MEDS: 0.9% Normal Saline 1,000 ML 1000 ML IV (13:41)
[2019-03-23] MEDS: Ondansetron 4 MG/2 ML Vial IV ×2 (13:41→17:13)
[2019-03-23] MEDS: Morphine 4 MG/ML Syringe IV ×2 (13:42→15:01)
[2019-03-23 13:59] LABS: Absolute Lymphocyte Count 1.45 X10^3/uL (0.83-4.51); Absolute Neutrophil Count 3.3 X10^3/uL (2.0-7.7); Basophil# 0.04 X10^3/uL; Basophil% 0.8 % (0-1); Eosinophil# 0.06 X10^3/uL; Eosinophils% 1.2 % (0-5); Hematocrit 34.3 % (37-47); Hemoglobin 10.5 g/dL (12.0-15.0); Lymphocyte # 1.45 X10^3/ul (4.0); Lymphocyte % 27.9 % (19-41); Mean Corp Hgb Conc 30.6 g/dL (32-36); Mean Corpuscular Volume 88.2 fL (81-99); Mean Platelet Vol. 9.1 fl (6.2-12.0); Monocyte# 0.39 X10^3/uL; Monocyte% 7.5 % (0-10); NRBC Flagged by Analyzer 0 % (0-5); Neutrophil # 3.25 X10^3/uL (2.7-7.7); Neutrophil % 62.4 % (47-70); Platelet Count 323 K/mm3 (150-450); RBC Distribution Width CV 14.2 % (11.6-14.6); RBC Distribution Width SD 45.5 fl (35.1-43.9); Red Blood Count 3.89 M/mm3 (4.2-5.4); White Blood Count 5.2 K/mm3 (4.4-11.0)
[2019-03-23 14:13] LABS: ALB/GLOB Ratio 0.9 RATIO (0.9-2.4); AST(SGOT) 26 U/L (15-37); Alanine Aminotransfer ALT/SGPT 41 U/L (13-56); Albumin, Serum 3.5 g/dL (3.2-5.0); Alkaline Phosphatase 86 U/L (45-117); Anion Gap 7 (5-15); BUN 8 mg/dL (7-18); BUN/Creat Ratio 11.7 RATIO (10-20); Calcium,Total 8.8 mg/dL (8.5-10.1); Chloride 106 mmol/L (98-107); Creatinine, Serum 0.68 mg/dL (0.55-1.02); EST Glomerular Filtration Rate 103 mL/min (>60); Est Glom Filt Rate - Afr Amer 124 mL/min (>60); Estimated Creatinine Clearance 96.86 ml/min; Glucose 85 mg/dL (74-106); Potassium 2.8 mmol/L (3.5-5.1); Protein, Total 7.5 g/dL (6.4-8.2); Sodium Level 141 mmol/L (136-145)
[2019-03-23 14:32] LABS: Bacteria 0 SEEN /hpf (None Seen); Mucous, Urine 0 SEEN /hpf (<or=2+)
[2019-03-23] MEDS: Potassium Chloride 10mEq/100mL 10 MEQ/100 ML IV.SOLN. 100 MEQ IV BOLUS ×2 (14:36→16:12)
[2019-03-23 14:38] LABS: Color, Urine Yellow (Yellow); Glucose, Dipstick Normal (Normal); Ketone-Dipstick Negative (Negative); Leukocyte Esterase-Dipstick 25 /ul (Negative); Nitrite-Dipstick Negative (Negative); Occult Blood-Urine 25 /ul (Negative); Protein-Dipstick Negative (Negative); Urine Bilirubin Dipstick Negative (Negative); Urine Clarity Clear (Clear); Urine Urobilinogen Normal (Normal)
[2019-03-23 14:44] LABS: Red Blood Cells-Urine 0-5 SEEN /hpf (0-5); Squamous Epithelial Cells - UA 0-5 SEEN /hpf (5-10); White Blood Cells 0-5 SEEN /hpf (0-5)
--- NOTE | 2019-03-23 15:00 | ED.RN ---
PT SENT OVER FOR CT, PAUSED POTASSIUM INFUSION.
[2019-03-23 15:30] VITALS: BP 161/105; PULSE 77; RESP 19; O2SAT 100
--- NOTE | 2019-03-23 15:51 | ED.VIS.GEN ---
History of Present Illness Chief Complaint: Abd Pain Informant: Patient Onset: Yesterday Context: Gradual Onset Timing: Continuous Current Severity: Moderate Maximum Severity: Moderate Narrative: The patient presents to the emergency department with abdominal pain. The patient has a history of short gut syndrome. She has had 2 steps procedures. She states over the past few days, she has had increasing abdominal pain with nausea and vomiting. She has had bowel obstruction and states this feels similar. She denies any fevers or chills. She denies any other systemic complaints. Prior similar symptoms: No Recent Illness/Hospitalization: No Past Medical History - Allergies and Home Meds Allergies/Adverse Reactions: Allergies adhesive Allergy (Verified 03/23/19 13:10) Itching amoxicillin [Amoxicillin] Allergy (Verified 03/23/19 13:10) Hives Penicillins Allergy (Verified 03/23/19 13:10) Hives Primary Care Physician: José Luis Motley MD [Primary Care Provider] - Prior records reviewed: Yes Past Medical History: None Surgical History: - - Emergent laparotomy with subsequent small bowel resection and partial colonic resection Smoking Status: Never smoker - Family History Paternal Family History: Family History (Last Reviewed 01/08/19 @ 11:17 by Marie Maher) Grandmother Diabetes Heart disease Mother Heart disease Grandfather Lung cancer Liver cancer Brain cancer Family History: Reports: Cancer Maternal Family History: Family History (Last Reviewed 01/08/19 @ 11:17 by Marie Maher) Grandmother Diabetes Heart disease Mother Heart disease Grandfather Lung cancer Liver cancer Brain cancer Family History: Reports: Unknown Review of Systems General: Denies: Chills, Fever, Sweats Eyes: Denies: Visual changes - bilaterally, Diplopia ENT: Denies: Rhinorrhea, Sore throat Cardiovascular: Denies: Chest pain, Palpitations Respiratory: Denies: Dyspnea, Cough, Dyspnea on exertion Gastrointestinal: Reports: Abdominal pain, Nausea, Vomiting. Denies: Diarrhea, Melena, Hematochezia Genitourinary: Denies: Dysuria, Hematuria, Frequency Musculoskeletal: Denies: Back pain, Extremity Pain Skin: Denies: Rash, Wounds Neurological: Denies: Headache, Weakness, Numbness Physical Exam Vital Signs/Narrative: Vital Signs Temp Pulse Resp BP Pulse Ox 03/23/19 15:30 77 19 H 161/105 H 100 03/23/19 13:08 98.7 F 96 19 H 140/99 H 98 Inital Vital Signs reviewed: Yes General: Well nourished, Well developed, No Acute Distress Head: Normocephalic, Atraumatic Eyes: Perrl, EOMI ENT: Moist mucous membranes, No rhinorrhea Neck: Supple, Nontender Cardiovascular: Regular rate, Regular rhythm, No murmurs Respiratory: No distress, CTA bilaterally, Chest nontender Abdomen: Soft, Nondistended, Normal bowel sounds, Tender. Negative for: Guarding, Rebound tenderness Back: Nontender, Normal Inspection Extremities: Nontender, No edema Skin: Normal color, No rash Neurological: Alert, Oriented x3, Cranial nerves II-XII grossly intact, Normal Strength, Normal Sensation Psychological: Normal affect, Normal Mood Diagnostic/Tx/Re-eval Clinical Impression(s) from Imaging Studies Abdomen/Pelvis CT 03/23/19 13:25 IMPRESSION: Stable postoperative appearance of the small bowel loops with dilatation as well as distended colon down to the region of the rectum. Diffuse fatty eventration of the liver. Electronically Signed: Steve Gan, at 15:33 EST , Service support , Abnormal Lab Results 03/23/19 03/23/19 03/23/19 13:45 13:45 14:25 WBC 5.2 RBC 3.89 L Hgb 10.5 L Hct 34.3 L MCV 88.2 MCH 27.0 MCHC 30.6 L RDW Std Deviation 45.5 H RDW Coeff of Jim 14.2 Plt Count 323 MPV 9.1 Immature Gran % (Auto) 0.200 Neut % (Auto) 62.4 Lymph % (Auto) 27.9 [place] % (Auto) 7.5 Eos % (Auto) 1.2 Baso % (Auto) 0.8 Absolute Neuts (auto) 3.3 Absolute Lymphs (auto) 1.45 Nucleated RBC % 0 Sodium 141 Potassium 2.8 L Chloride 106 Carbon Dioxide 28.0 Anion Gap 7 BUN 8 Creatinine 0.68 Estim Creat Clear Calc 96.86 Est GFR (MDRD) Af Amer 124 Est GFR (MDRD) Non-Af 103 BUN/Creatinine Ratio 11.7 Glucose 85 Calcium 8.8 Total Bilirubin 0.30 AST 26 ALT 41 Alkaline Phosphatase 86 Total Protein 7.5 Albumin 3.5 Globulin 4.0 Albumin/Globulin Ratio 0.9 Urine Color Yellow Urine Clarity Clear Urine pH 6.0 Ur Specific [place] 1.010 Urine Protein Negative Urine Glucose (UA) Normal Urine Ketones Negative Urine Occult Blood 25 H Urine Nitrite Negative Urine Bilirubin Negative Urine Urobilinogen Normal Ur Leukocyte Esterase 25 H Urine RBC 0-5 SEEN Urine WBC 0-5 SEEN Ur Squamous Epith Cells 0-5 SEEN Urine Bacteria 0 SEEN Urine Mucus 0 SEEN - Medical Decision Making Patient presents with abdominal pain, nausea, vomiting. She has no significant distention. IV was established. She was given fluids, analgesics, antiemetics. She did have improvement of her symptoms. Patient underwent CT imaging. There is no evidence of small bowel obstruction. There is months perforation. She was found to be hypokalemic which she has a history of. This was replaced. On reevaluation, she is resting comfortably. At this point, if that she is safe for outpatient therapy. She was counseled concerning symptoms and reasons to return. She will be discharged home. Impression 1. Nausea and vomiting with history of short gut syndrome ED Disposition - Plan for ED Patient: Instructions: ABDOMINAL PAIN, Unknown Cause, (Female) Referrals: José Luis Motley MD [Primary Care Provider] -
[2019-03-23 17:17] VITALS: BP 137/93; PULSE 81; RESP 17; O2SAT 99
== END 2019-03-23 17:21 | disposition home or self-care (01) ==
LOC: ED 13:29
PROVIDERS: Emergency Provider Emergency Medicine; Family Provider Family Medicine; PCP Family Medicine
DX: R11.2 Nausea with vomiting, unspecified (principal); K91.2 Postsurgical malabsorption, not elsewhere classified
CPT/HCPCS: 74177; 80053; 81001; 85025; 96361; 96365; 96366; 96375; 96376; 99283; J7030; J7050; Q9967; A4216; J2405

== ENCOUNTER 2019-04-11 13:24 | Emergency (ER) | payer MEDICAID, SELFPAY ==
[2019-04-11 13:26] VITALS: BP 141/93; PULSE 81; RESP 16; TEMP 36.3; O2SAT 99; BMI 26.6
--- NOTE | 2019-04-11 13:48 | ED.VISSUMM ---
- ER Visit Summary Date of Service: 04/11/19 Chief Complaint: Dental pain History of Present Illness: The patient is a 39 F with ongoing right mandibular dental pain. The patient has a follow-up with her dentist this week on Saturday. Physical Examination: Afebrile and vital signs unremarkable. Right mandibular molar is tender to palpation. There is no evidence of abscess or gum line changes. No tongue elevation. No trismus. Airway intact. Skin appears normal. Cranial nerves grossly intact. Test Results: None indicated Emergency Department Course and Treatment: Patient will be treated with clindamycin and [place]. I did check her prescription report and she is not currently on controlled substances. She was given return precautions. Treatment Plan: As above Disposition: Discharge Impression: 1. Dental pain This note was generated with [employer] dictation software. It may contain incorrect words, spelling, and punctuation that were not noted in review of the chart prior to signing ED Disposition - Plan for ED Patient: Referrals: José Luis Motley MD [Primary Care Provider] -
--- NOTE | 2019-04-11 13:49 | ED.DEP ---
ED Disposition - Plan for ED Patient: Instructions: Dental Pain Prescriptions: Clindamycin [Cleocin] 300 mg PO 4X/DAY #80 cap Prescription Printed Hydrocodone Bitart/Apap 5-325 [[place] 5MG-325MG] 1 tab PO Q6H PRN PRN 2 Days #8 tab PRN Reason: Pain Prescription Printed
[2019-04-11] MEDS: HYDROcodone Bitartrate/Apap 5/325 Tablet PO (13:57)
== END 2019-04-11 14:03 | disposition home or self-care (01) ==
LOC: ED 13:43
PROVIDERS: Emergency Provider Emergency Medicine; Family Provider Family Medicine; PCP Family Medicine
DX: K08.89 Other specified disorders of teeth and supporting structures (principal)
CPT/HCPCS: 99283

== ENCOUNTER 2019-04-21 16:25 | Observation (INO) | payer MEDICAID, SELFPAY ==
[2019-04-21 16:26] VITALS: BP 117/77; PULSE 83; RESP 16; TEMP 36.8; O2SAT 100; BMI 25.0
--- NOTE | 2019-04-21 17:28 | ED.VIS.GEN ---
History of Present Illness Chief Complaint: Abn Labs Narrative: Patient presenting due to possible abnormal lab tests. 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 She has short gut syndrome, and is on a significant amount of oral supplements. Patient tells her that her dietitian called and stated that she was anemic and had low iron and that she needed to come to an emergency department to get at least for iron infusions. Patient states that she has felt somewhat weak and ill recently and thinks that potentially she may be anemic. Patient is on Lovenox, she denies that she has been having any blood in her stool or in her urine. She denies any fever, cough, nausea, vomiting, or diarrhea. Review of systems otherwise negative. Past Medical History - Allergies and Home Meds Allergies/Adverse Reactions: Allergies adhesive Allergy (Verified 04/21/19 16:29) Itching amoxicillin [Amoxicillin] Allergy (Verified 04/21/19 16:29) Hives Penicillins Allergy (Verified 04/21/19 16:29) Hives Past Medical History: - - Short gut Surgical History: - - Emergent laparotomy with subsequent small bowel resection and partial colonic resection Smoking Status: Former smoker - Family History Paternal Family History: Family History (Last Reviewed 01/08/19 @ 11:17 by Marie Maher) Grandmother Diabetes Heart disease Mother Heart disease Grandfather Lung cancer Liver cancer Brain cancer Family History: Reports: Cancer Maternal Family History: Family History (Last Reviewed 01/08/19 @ 11:17 by Marie Maher) Grandmother Diabetes Heart disease Mother Heart disease Grandfather Lung cancer Liver cancer Brain cancer Family History: Reports: Unknown Review of Systems All systems negative except as indicated General: Reports: Malaise Eyes: Denies: Visual changes - bilaterally, Diplopia ENT: Denies: Rhinorrhea, Sore throat Cardiovascular: Denies: Chest pain, Palpitations Respiratory: Denies: Dyspnea, Cough, Dyspnea on exertion Gastrointestinal: Denies: Abdominal pain, Nausea, Vomiting, Diarrhea, Melena, Hematochezia Genitourinary: Denies: Dysuria, Hematuria, Frequency Musculoskeletal: Denies: Back pain, Extremity Pain Skin: Denies: Rash, Wounds Neurological: Denies: Headache, Weakness, Numbness Psych: Denies: Depression Endocrine: Denies: Polyuria Hematologic: Reports: Easy bruising Allergy: Denies: Swelling of the mouth Physical Exam Vital Signs/Narrative: Vital Signs Temp Pulse Resp BP Pulse Ox 04/21/19 16:26 98.2 F 83 16 117/77 100 Inital Vital Signs reviewed: Yes General: Well nourished, Well developed, No Acute Distress Head: Normocephalic, Atraumatic Eyes: Perrl, EOMI ENT: Moist mucous membranes, No rhinorrhea, - - No conjunctival pallor noted Neck: Supple, Nontender Cardiovascular: Regular rate, Regular rhythm, No murmurs Respiratory: No distress, CTA bilaterally, Chest nontender Abdomen: Soft, Nontender, Nondistended, Normal bowel sounds Back: Nontender, Normal Inspection Extremities: Nontender, No edema Skin: Normal color, No rash Neurological: Alert, Oriented x3, Cranial nerves II-XII grossly intact, Normal Strength, Normal Sensation Psychological: Normal affect, Normal Mood Diagnostic/Tx/Re-eval - Medical Decision Making Patient presented due to concern for laboratory abnormalities. Labs were obtained. Patient was found to be hypokalemic, hypomagnesemic, and to have low iron. In normal situations, I would do oral replacement on this patient's, but since she is already failed outpatient therapy due to her short gut syndrome and the fact that she already supplements. Patient will be started on IV replacement and will be admitted for further observation. ED Disposition - Plan for ED Patient: Disposition: Acute Care [facility] Diagnosis: Hypokalemia, Hypomagnesemia, Iron deficiency anemia, Short gut syndrome
[2019-04-21 17:34] LABS: Absolute Lymphocyte Count 1.44 X10^3/uL (0.83-4.51); Absolute Neutrophil Count 2.9 X10^3/uL (2.0-7.7); Basophil# 0.03 X10^3/uL; Basophil% 0.6 % (0-1); Eosinophil# 0.05 X10^3/uL; Hematocrit 28.9 % (37-47); Hemoglobin 8.5 g/dL (12.0-15.0); Lymphocyte # 1.44 X10^3/ul (4.0); Mean Corp Hgb Conc 29.4 g/dL (32-36); Mean Corpuscular Hgb 26.6 pg (27.0-32.0); Mean Corpuscular Volume 90.6 fL (81-99); Mean Platelet Vol. 9.1 fl (6.2-12.0); Monocyte# 0.39 X10^3/uL; Monocyte% 8.1 % (0-10); NRBC Flagged by Analyzer 0 % (0-5); Neutrophil # 2.89 X10^3/uL (2.7-7.7); Neutrophil % 60.3 % (47-70); Platelet Count 279 K/mm3 (150-450); RBC Distribution Width CV 16.2 % (11.6-14.6); RBC Distribution Width SD 52.8 fl (35.1-43.9); Red Blood Count 3.19 M/mm3 (4.2-5.4); White Blood Count 4.8 K/mm3 (4.4-11.0)
[2019-04-21 17:49] LABS: Anion Gap 9 (5-15); BUN 7 mg/dL (7-18); BUN/Creat Ratio 9.7 RATIO (10-20); Calcium,Total 8.1 mg/dL (8.5-10.1); Chloride 116 mmol/L (98-107); Creatinine, Serum 0.72 mg/dL (0.55-1.02); EST Glomerular Filtration Rate 96 mL/min (>60); Est Glom Filt Rate - Afr Amer 117 mL/min (>60); Estimated Creatinine Clearance 91.48 ml/min; Glucose 76 mg/dL (74-106); Iron 19 ug/dL (50-170); Iron Binding Capacity,Total 375 ug/dL (250-450); Magnesium 1.2 mg/dL (1.6-2.6); PERCENT IRON SATURATION 5.1 % (15.0-55.0); Potassium 2.8 mmol/L (3.5-5.1); Sodium Level 145 mmol/L (136-145)
[2019-04-21 18:43] VITALS: BMI 25.1
[2019-04-21] MEDS: Potassium Chloride 10mEq/100mL 10 MEQ/100 ML IV.SOLN. 100 MEQ IV BOLUS ×4 (19:33→23:44)
--- NOTE | 2019-04-21 19:38 | HP.PCM_ITS ---
History of Present Illness Date of Admission: 04/21/19 Chief Complaint: Weakness The patient is a 39 year old F with PMH as below who presents with feeling fatigued and weak for the last several days. She says that she has a history of protein C&S deficiency which led to a SMA thrombosis resulting in having m ultiple feet of small bowel resected and ultimately leaving her with work-up. She has 6-8 bowel movements a day, however over the last couple of days she has had an increase in both frequency and volume of her loose stools. She used to be on Imodium but that was causing her to have bleeding issues therefore she is not on anything currently. Her dietitian called her and said that she needed to come to the ER because of abnormal labs. On repeat here, her iron is low and she is anemic with a hemoglobin of 8.5. However her magnesium is also 1.2 and her potassium is 2.8. These were replaced in the ER. Past Medical History Past Medical History (Chronic Problems): Chronic Problems (Last Reviewed 01/08/19 @ 11:17 by Marie Maher) Iron deficiency anemia (Chronic) Protein S deficiency (Chronic) Protein C deficiency (Chronic) Short gut syndrome (Chronic) Hypercoagulable state, primary (Chronic) Medical History: Medical History (Last Reviewed 01/08/19 @ 11:17 by Marie Maher) Protein C deficiency D68.59 Protein S deficiency D68.59 Short gut syndrome K91.2 Blood clotting disorder D68.9 Allergies adhesive Allergy (Verified 04/21/19 16:29) Itching amoxicillin [Amoxicillin] Allergy (Verified 04/21/19 16:29) Hives Penicillins Allergy (Verified 04/21/19 16:29) Hives Home Medications: Ambulatory Orders Medication Instructions Recorded Ergocalciferol [Vitamin D] 50,000 unit PO MOTUWETH 10/09/14 Calcium Carbonate [Tums] 500 mg PO TIDCM 04/27/16 L.acidoph,Paracasei, B.lactis 1 cap PO DAILY 04/27/16 [Probiotic] Multivit with Calcium,Iron,Min 3 tab PO DAILY 04/27/16 [Multiple Vitamins For Women] magnesium L-lactate ER 84 mg 252 mg PO TID tab 01/24/18 tablet,extended release Enoxaparin [Lovenox] 70 mg SUBCUT BID 09/03/18 Lactose-Reduced Food [Ensure High 237 ml PO TID 09/03/18 Protein] Lisinopril 20 mg PO DAILY 12/19/18 Potassium Chloride [K-Dur] 80 meq PO TID 03/03/19 Surgical History: Surgical History (Last Reviewed 03/03/19 @ 18:29 by VERONICA Rapp) History of removal of ovarian cyst Z98.890, Z87.42 right Hx of cholecystectomy Z90.49 S/P hernia repair Z98.890, Z87.19 STEPS procedure x2 Surgical History: - - Emergent laparotomy with subsequent small bowel resection and partial colonic resection Psychiatric History: No pertinent psych hx 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 Denies: Anorexia, Chills, Fever HEENT: Denies: Head Aches, Sinus Congestion, Sinus Drainage Cardiovascular: Denies: Chest Pain, Palpitations Respiratory: Denies: Cough, Shortness of breath at rest, Sputum production Gastrointestinal: Reports: Diarrhea. Denies: Abdominal Pain, Hematochezia, Nausea, Vomiting Genitourinary: Denies: Dysuria Musculoskeletal: Denies: Joint Pain, Joint Tenderness Skin: Denies: Rash, Wounds Neurological: Denies: Numbness, Tingling, Focal weakness Psychiatric: Denies: Anxiety, Depression Hematologic/ Lymphatic: Denies: Easy Bruising, Easy Bleeding VTE Information - Inpt Only VTE Present on Admission: No - Physical Exam Vitals/I&O's: Vital Signs Temp Pulse Resp BP Pulse Ox 98.2 F 83 16 117/77 100 04/21/19 16:26 04/21/19 16:26 04/21/19 16:26 04/21/19 16:26 04/21/19 16:26 Oxygen Delivery Method Room Air Weight: 146 lb Body Mass Index (BMI) 25.0 General: Alert, Oriented x3, Cooperative, No apparent distress HEENT: Atraumatic, PERRLA, EOMI, Normocephalic Oral: Moist Mucosa Neck: Supple, No JVD Lungs: Clear to auscultation, Normal air movement, No rhonchi, No wheeze, No rales, Diminished Cardiovascular: Regular rate, Regular Rhythm, Normal S1, Normal S2, No murmurs Abdomen: Soft, Non Tender, Non-Distended, No Hepato-splenomegaly Extremities: No edema, Capillary Refill Less than 3 Seconds Skin: No rashes, No breakdown Neurological: Neuro grossly intact, Sensory exam intact to light touch and pain Psych/Mental Status: Normal Affect, Appropriate Laboratory Results 04/21/19 17:05: WBC 4.8, RBC 3.19 L, Hgb 8.5 L, Hct 28.9 L, MCV 90.6, MCH 26.6 L , MCHC 29.4 L, RDW Std Deviation 52.8 H, RDW Coeff of Jim 16.2 H, Plt Count 279, MPV 9.1, Immature Gran % (Auto) 0.000, Neut % (Auto) 60.3, Lymph % (Auto) 30.0, [place] % (Auto) 8.1, Eos % (Auto) 1.0, Baso % (Auto) 0.6, Absolute Neuts (auto) 2.9, Absolute Lymphs (auto) 1.44, Nucleated RBC % 0 04/21/19 17:05: Sodium 145, Potassium 2.8 L, Chloride 116 H, Carbon Dioxide 20.0 L, Anion Gap 9, BUN 7, Creatinine 0.72, Estim Creat Clear Calc 91.48, Est GFR (MDRD) Af Amer 117, Est GFR (MDRD) Non-Af 96, BUN/Creatinine Ratio 9.7 L, Glucose 76, Calcium 8.1 L, Magnesium 1.2 L, Iron 19 L, TIBC 375, Iron Saturation 5.1 L Current Medications Potassium Chloride () 10 meq in 100 mls @ 100 mls/hr IV BOLUS Q1H CHIKA Stop: 04/21/19 22:29 Magnesium Sulfate 2 gm/ Sodium (Chloride) 104 mls @ 52 mls/hr IV X1 ONE Stop: 04/21/19 20:22 Sodium Chloride () 10 - 40 ml IV UD PRN PRN Reason: SALINE FLUSH Assessment/Plan All Active Problems (Last Reviewed 01/08/19 @ 11:17 by Marie Maher) Hypokalemia (Acute) Hypomagnesemia (Acute) Hypokalemia (Acute) Hypomagnesemia (Acute) Pelvic pain (Resolved) Ileus (Ruled-out) 1. Hypokalemia/hypomagnesemia/chronic iron deficiency anemia -Increase in diarrhea likely led to an inability to absorb her oral supplementations appropriately. -We will continue with potassium, magnesium, and iron sucrose replacements. -She does have outpatient infusion set up at her primary care office -She follows with dietitian up in [place] -We will repeat a CBC, magnesium, phosphorus, and a BMP in the morning -We will resume with her home oral replacements 2. 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 HTN -Blood pressure stable systolic of 117 -Continue with lisinopril DVT: Lovenox Code Visit OBSV E&M: [id number] Initial observation care L2
[2019-04-21 19:42] VITALS: BP 133/96; PULSE 75; RESP 21; O2SAT 98
[2019-04-21 20:03] VITALS: BMI 27.0
[2019-04-21 20:04] VITALS: BP 131/89; PULSE 78; RESP 16; TEMP 36.6; O2SAT 98
[2019-04-21] MEDS: Enoxaparin 80 MG/0.8 ML Syringe 70 MG SC (21:41)
[2019-04-21] MEDS: Ensure Clear 120 ML Liquid 237 ML PO (21:50)
[2019-04-21] MEDS: 0.9% Saline Lock 10 ML Syringe IV (23:45)
--- NOTE | 2019-04-22 00:51 | NURSING ---
Handoff given to Mica Scott RN at this time. She will be taking over care of this pt.
[2019-04-22] MEDS: 0.9% Saline Lock 10 ML Syringe IV (01:30)
[2019-04-22 02:00] VITALS: BP 136/83; PULSE 64; RESP 16; TEMP 36.9; O2SAT 97
[2019-04-22 06:26] LABS: Absolute Lymphocyte Count 1.37 X10^3/uL (0.83-4.51); Absolute Neutrophil Count 3.2 X10^3/uL (2.0-7.7); Basophil# 0.03 X10^3/uL; Basophil% 0.6 % (0-1); Eosinophil# 0.08 X10^3/uL; Eosinophils% 1.6 % (0-5); Hematocrit 28.1 % (37-47); Hemoglobin 8.2 g/dL (12.0-15.0); Lymphocyte # 1.37 X10^3/ul (4.0); Mean Corp Hgb Conc 29.2 g/dL (32-36); Mean Corpuscular Hgb 25.9 pg (27.0-32.0); Mean Corpuscular Volume 88.9 fL (81-99); Mean Platelet Vol. 9.1 fl (6.2-12.0); Monocyte# 0.37 X10^3/uL; Monocyte% 7.3 % (0-10); NRBC Flagged by Analyzer 0 % (0-5); Neutrophil # 3.22 X10^3/uL (2.7-7.7); Neutrophil % 63.3 % (47-70); Platelet Count 266 K/mm3 (150-450); RBC Distribution Width CV 15.9 % (11.6-14.6); Red Blood Count 3.16 M/mm3 (4.2-5.4); White Blood Count 5.1 K/mm3 (4.4-11.0)
[2019-04-22] MEDS: Ensure Clear 120 ML Liquid 237 ML PO ×2 (06:28→13:26)
[2019-04-22 06:57] LABS: Anion Gap 4 (5-15); BUN 6 mg/dL (7-18); BUN/Creat Ratio 10.2 RATIO (10-20); Calcium,Total 7.4 mg/dL (8.5-10.1); Chloride 111 mmol/L (98-107); Creatinine, Serum 0.59 mg/dL (0.55-1.02); EST Glomerular Filtration Rate 121 mL/min (>60); Est Glom Filt Rate - Afr Amer 147 mL/min (>60); Estimated Creatinine Clearance 111.64 ml/min; Glucose 83 mg/dL (74-106); Potassium 3.3 mmol/L (3.5-5.1); Sodium Level 141 mmol/L (136-145)
[2019-04-22 08:04] VITALS: BP 138/84; PULSE 69; RESP 16; TEMP 36.7; O2SAT 100
[2019-04-22] MEDS: Multivitamins,Ther W-Minerals Tablet 3 TABLET PO (09:00)
[2019-04-22] MEDS: Calcium Carbonate 500 MG Tablet PO ×3 (09:00→16:49)
[2019-04-22] MEDS: Enoxaparin 80 MG/0.8 ML Syringe 70 MG SC ×2 (09:01→22:24)
[2019-04-22] MEDS: Lisinopril 20 MG Tablet PO (09:34)
[2019-04-22 14:08] VITALS: BP 146/84; PULSE 69; RESP 16; TEMP 36.8; O2SAT 99
--- NOTE | 2019-04-22 14:12 | PN_ITS ---
<Morris Navarro - Last Filed: 04/22/19 14:12> Patient Problems: Active and Suspected Problems (Last Reviewed 01/08/19 @ 11:17 by Marie Maher) Hypokalemia (Acute) Hypomagnesemia (Acute) Iron deficiency anemia (Acute) Short gut syndrome (Acute) Reason for Visit: fatigue Subjective: Patient presented after having increased fatigue at home, found to have electrolyte abnormalities including hypomagnesia, hypokalemia, hypophosphatemia. She has had this happen in the past, she attributes it to short gut syndrome. She takes electrolyte replacement at home however she still has difficulty with absorption. She feels improved however her electrolytes are still somewhat low. She denies any nausea, vomiting, abdominal pain, or diarrhea. Other than fatigue she feels like her normal self. Vitals/I&O's: Vital Signs Temp Pulse Resp BP Pulse Ox 98.3 F 69 16 146/84 H 99 04/22/19 14:08 04/22/19 14:08 04/22/19 14:08 04/22/19 14:08 04/22/19 14:08 Oxygen Delivery Method Room Air Weight: 157 lb 10.088 oz Body Mass Index (BMI) 27.0 Intake and Output for Last 24 Hours 04/20/19 04/21/19 04/22/19 23:59 23:59 23:59 Intake Total 606.33 / 1006.33 610 / 610 Balance 606.33 / 1006.33 610 / 610 General: Alert, Oriented x3, Cooperative HEENT: Atraumatic, PERRLA, EOMI, Normocephalic Neck: Supple, No JVD, Negative Carotid Bruits Lungs: Clear to auscultation, Normal air movement Cardiovascular: Regular rate, No murmurs Abdomen: Bowel Sounds Present, Soft, Non Tender Extremities: No edema, Capillary Refill Less than 3 Seconds Skin: No rashes, No breakdown Musculoskeletal: No Tenderness to Palpation of Joints or Extremities Neurological: Cranial nerves II-XII grossly intact Psych/Mental Status: Normal Affect, Appropriate, Alert and oriented to time, place, person, mood and affect Laboratory Results 04/21/19 17:05: WBC 4.8, RBC 3.19 L, Hgb 8.5 L, Hct 28.9 L, MCV 90.6, MCH 26.6 L , MCHC 29.4 L, RDW Std Deviation 52.8 H, RDW Coeff of Jim 16.2 H, Plt Count 279, MPV 9.1, Immature Gran % (Auto) 0.000, Neut % (Auto) 60.3, Lymph % (Auto) 30.0, [place] % (Auto) 8.1, Eos % (Auto) 1.0, Baso % (Auto) 0.6, Absolute Neuts (auto) 2.9, Absolute Lymphs (auto) 1.44, Nucleated RBC % 0 04/21/19 17:05: Sodium 145, Potassium 2.8 L, Chloride 116 H, Carbon Dioxide 20.0 L, Anion Gap 9, BUN 7, Creatinine 0.72, Estim Creat Clear Calc 91.48, Est GFR (MDRD) Af Amer 117, Est GFR (MDRD) Non-Af 96, BUN/Creatinine Ratio 9.7 L, Glucose 76, Calcium 8.1 L, Magnesium 1.2 L, Iron 19 L, TIBC 375, Iron Saturation 5.1 L 04/22/19 05:50: WBC 5.1, RBC 3.16 L, Hgb 8.2 L, Hct 28.1 L, MCV 88.9, MCH 25.9 L , MCHC 29.2 L, RDW Std Deviation 52.0 H, RDW Coeff of Jim 15.9 H, Plt Count 266, MPV 9.1, Immature Gran % (Auto) 0.200, Neut % (Auto) 63.3, Lymph % (Auto) 27.0, [place] % (Auto) 7.3, Eos % (Auto) 1.6, Baso % (Auto) 0.6, Absolute Neuts (auto) 3.2, Absolute Lymphs (auto) 1.37, Nucleated RBC % 0 04/22/19 05:50: Sodium 141, Potassium 3.3 L, Chloride 111 H, Carbon Dioxide 26.0, Anion Gap 4 L, BUN 6 L, Creatinine 0.59, Estim Creat Clear Calc 111.64, Est GFR (MDRD) Af Amer 147, Est GFR (MDRD) Non-Af 121, BUN/Creatinine Ratio 10.2, Glucose 83, Calcium 7.4 L, Phosphorus 2.0 L, Magnesium 2.0 Current Medications Calcium Carbonate (Tums) 500 mg PO TIDCM [facility] Last Admin: 04/22/19 12:20 Dose: 500 mg Documented by: Enoxaparin Sodium (Lovenox) 70 mg SC BID [facility] Last Admin: 04/22/19 09:01 Dose: 70 mg Documented by: Ergocalciferol (Vitamin D) 50,000 unit PO MoTuWeTh@1000 [facility] Last Admin: 04/22/19 09:34 Dose: 50,000 unit Documented by: Sodium Chloride () 250 mls @ 15 mls/hr IV .[id number] PRN PRN Reason: Saline Flush Potassium Phosphate 40 mm/ (Sodium Chloride) 513.3333 mls @ 62.5 mls/hr IV X1 ONE Stop: 04/22/19 16:30 Last Admin: 04/22/19 09:25 Dose: 62.5 mls/hr Documented by: Iron Sucrose 200 mg/ Sodium (Chloride) 110 mls @ 220 mls/hr IV DAILY [facility] Stop: 04/23/19 10:29 Last Infusion: 04/22/19 13:10 Dose: Infused Documented by: Lisinopril (Zestril) 20 mg PO DAILY [facility] Last Admin: 04/22/19 09:34 Dose: 20 mg Documented by: Multivitamins/Minerals (Multivitamin With Minerals) 3 tablet PO DAILY@0800 [facility] Last Admin: 04/22/19 09:00 Dose: 3 tablet Documented by: Nutritional Formula (Lactose Free) (Ensure Clear) 237 ml PO TID [facility] Last Admin: 04/22/19 13:26 Dose: 237 ml Documented by: Potassium Chloride (K-Dur) 80 meq PO TIDCM [facility] Last Admin: 04/22/19 12:21 Dose: 80 meq Documented by: Sodium Chloride () 10 - 40 ml IV UD PRN PRN Reason: SALINE FLUSH Last Admin: 04/22/19 01:30 Dose: 10 ml Documented by: STROKE Vital Signs/Narrative: Vital Signs Temp Pulse Resp BP Pulse Ox 04/22/19 14:08 98.3 F 69 16 146/84 H 99 Medical Necessity - Tobacco Use Smoking Status: Former smoker Tobacco Use: Cigarettes Assessment/Plan All Active Problems (Last Reviewed 01/08/19 @ 11:17 by Marie Maher) Hypokalemia (Acute) Hypomagnesemia (Acute) Hypokalemia (Acute) Hypomagnesemia (Acute) Iron deficiency anemia (Acute) Short gut syndrome (Acute) Hypokalemia (Acute) Hypomagnesemia (Acute) Pelvic pain (Resolved) Ileus (Ruled-out) 1. Hypokalemia, hypomagnesemia, hypophosphatemia-secondary to short gut syndrome-continue electrolyte replacement as ordered, recheck in a.m. 2. Iron deficiency anemia secondary to short gut syndrome-again she takes replacement iron orally however she is not absorbing it. Iron studies are consistent with significant iron deficiency. She received Venofer last night, will receive 2 more doses of Venofer while here. I recommended she discuss with her primary care physician about having Venofer infusions as an outpatient. 3. 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 Hypercoagulable state secondary to protein C, protein S deficiency 5. Hypertension-stable DVT prophylaxis: Therapeutic Lovenox Discharge planning: Likely home tomorrow if electrolytes normalized. This patient was seen by Morris Navarro PA-C under the supervision of Doctor Stan. <Bran Pierce - Last Filed: 04/22/19 16:06> Reason for Visit: Follow-up for diarrhea with severe hypokalemia, hypo-magnesium along with dehydration. Vitals/I&O's: Vital Signs Temp Pulse Resp BP Pulse Ox 98.3 F 69 16 146/84 H 99 04/22/19 14:08 04/22/19 14:08 04/22/19 14:08 04/22/19 14:08 04/22/19 14:08 Oxygen Delivery Method Room Air Weight: 157 lb 10.088 oz Body Mass Index (BMI) 27.0 Intake and Output for Last 24 Hours 04/20/19 04/21/19 04/22/19 23:59 23:59 23:59 Intake Total 606.33 / 1006.33 610 / 610 Balance 606.33 / 1006.33 610 / 610 General: Alert, Oriented x3, Cooperative HEENT: Atraumatic, PERRLA, EOMI, Normocephalic Neck: Supple, No JVD, Negative Carotid Bruits Lungs: Clear to auscultation, Normal air movement, No rhonchi, No wheeze, No rales Cardiovascular: Regular rate, Regular Rhythm, Normal S1, Normal S2, No murmurs Abdomen: Bowel Sounds Present, Soft, Non Tender, - - surgical scar of bowel resection. Has short bowel syndrome. Extremities: No edema, Capillary Refill Less than 3 Seconds Skin: No rashes, No breakdown Musculoskeletal: No Tenderness to Palpation of Joints or Extremities Neurological: Cranial nerves II-XII grossly intact, Deep Tendon Reflexes 2+/4 and Symmetrical, Neuro grossly intact Psych/Mental Status: Normal Affect, Appropriate Laboratory Results 04/21/19 17:05: WBC 4.8, RBC 3.19 L, Hgb 8.5 L, Hct 28.9 L, MCV 90.6, MCH 26.6 L , MCHC 29.4 L, RDW Std Deviation 52.8 H, RDW Coeff of Jim 16.2 H, Plt Count 279, MPV 9.1, Immature Gran % (Auto) 0.000, Neut % (Auto) 60.3, Lymph % (Auto) 30.0, [place] % (Auto) 8.1, Eos % (Auto) 1.0, Baso % (Auto) 0.6, Absolute Neuts (auto) 2.9, Absolute Lymphs (auto) 1.44, Nucleated RBC % 0 04/21/19 17:05: Sodium 145, Potassium 2.8 L, Chloride 116 H, Carbon Dioxide 20.0 L, Anion Gap 9, BUN 7, Creatinine 0.72, Estim Creat Clear Calc 91.48, Est GFR (MDRD) Af Amer 117, Est GFR (MDRD) Non-Af 96, BUN/Creatinine Ratio 9.7 L, Gluco se 76, Calcium 8.1 L, Magnesium 1.2 L, Iron 19 L, TIBC 375, Iron Saturation 5.1 L 04/22/19 05:50: WBC 5.1, RBC 3.16 L, Hgb 8.2 L, Hct 28.1 L, MCV 88.9, MCH 25.9 L , MCHC 29.2 L, RDW Std Deviation 52.0 H, RDW Coeff of Jim 15.9 H, Plt Count 266, MPV 9.1, Immature Gran % (Auto) 0.200, Neut % (Auto) 63.3, Lymph % (Auto) 27.0, [place] % (Auto) 7.3, Eos % (Auto) 1.6, Baso % (Auto) 0.6, Absolute Neuts (auto) 3.2, Absolute Lymphs (auto) 1.37, Nucleated RBC % 0 04/22/19 05:50: Sodium 141, Potassium 3.3 L, Chloride 111 H, Carbon Dioxide 26.0, Anion Gap 4 L, BUN 6 L, Creatinine 0.59, Estim Creat Clear Calc 111.64, Est GFR (MDRD) Af Amer 147, Est GFR (MDRD) Non-Af 121, BUN/Creatinine Ratio 10.2, Glucose 83, Calcium 7.4 L, Phosphorus 2.0 L, Magnesium 2.0 04/22/19 15:40: Sodium Pending, Potassium Pending, Chloride Pending, Carbon Dioxide Pending, Anion Gap Pending, BUN Pending, Creatinine Pending, Est GFR (MDRD) Af Amer Pending, Est GFR (MDRD) Non-Af Pending, BUN/Creatinine Ratio Pending, Glucose Pending, Calcium Pending Current Medications Calcium Carbonate (Tums) 500 mg PO TIDCM [facility] Last Admin: 04/22/19 12:20 Dose: 500 mg Documented by: Enoxaparin Sodium (Lovenox) 70 mg SC BID [facility] Last Admin: 04/22/19 09:01 Dose: 70 mg Documented by: Ergocalciferol (Vitamin D) 50,000 unit PO MoTuWeTh@1000 [facility] Last Admin: 04/22/19 09:34 Dose: 50,000 unit Documented by: Sodium Chloride () 250 mls @ 15 mls/hr IV .[id number] PRN PRN Reason: Saline Flush Potassium Phosphate 40 mm/ (Sodium Chloride) 513.3333 mls @ 62.5 mls/hr IV X1 ONE Stop: 04/22/19 16:30 Last Admin: 04/22/19 09:25 Dose: 62.5 mls/hr Documented by: Iron Sucrose 200 mg/ Sodium (Chloride) 110 mls @ 220 mls/hr IV DAILY [facility] Stop: 04/23/19 10:29 Last Infusion: 04/22/19 13:10 Dose: Infused Documented by: Lisinopril (Zestril) 20 mg PO DAILY [facility] Last Admin: 04/22/19 09:34 Dose: 20 mg Documented by: Magnesium Oxide (Mag-Ox 400) [facility] Multivitamins/Minerals (Multivitamin With Minerals) 3 tablet PO DAILY@0800 [facility] Last Admin: 04/22/19 09:00 Dose: 3 tablet Documented by: Nutritional Formula (Lactose Free) (Ensure Clear) 237 ml PO TID [facility] Last Admin: 04/22/19 13:26 Dose: 237 ml Documented by: Potassium Chloride (K-Dur) 80 meq PO TIDCM [facility] Last Admin: 04/22/19 12:21 Dose: 80 meq Documented by: Sodium Chloride () 10 - 40 ml IV UD PRN PRN Reason: SALINE FLUSH Last Admin: 04/22/19 01:30 Dose: 10 ml Documented by: STROKE Vital Signs/Narrative: Vital Signs Temp Pulse Resp BP Pulse Ox 04/22/19 14:08 98.3 F 69 16 146/84 H 99 Assessment/Plan This patient was seen in conjunction with Morris MORALES. I have independently interviewed and examined the patient and reviewed pertinent history, examination findings, laboratory and plan of management. I have reviewed the note and agree with the documented findings with the few additional points. In brief, patient is admitted for feeling generalized weakness, weakness and diarrhea. Patient has chronic diarrhea secondary to short bowel syndrome and usually gets 4-6 bowel movements every day but this is exacerbated last few days with increased frequency and volume of stool. 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 1. Acute on chronic diarrhea with dehydration and severe electrolyte abnormality: Patient has severe electrolyte abnormality including hypokalemia, hypomagnesemia and hypophosphatemia. Electrolytes are being replaced. Blood pressure is stable. 2. Short gut syndrome 3. Iron deficiency anemia: Serum iron is low. On IV Venofer. Other chronic comorbidities include hypercoagulable disorder, protein C protein S deficiency, hypertension. I have discussed my assessment with Morris MORALES and orders have been reviewed. Code Visit Inpatient E&M: 15377 Subs Hosp L2
[2019-04-22 16:09] LABS: Anion Gap 8 (5-15); BUN 5 mg/dL (7-18); BUN/Creat Ratio 7.7 RATIO (10-20); Calcium,Total 7.9 mg/dL (8.5-10.1); Chloride 117 mmol/L (98-107); Creatinine, Serum 0.65 mg/dL (0.55-1.02); EST Glomerular Filtration Rate 109 mL/min (>60); Est Glom Filt Rate - Afr Amer 131 mL/min (>60); Estimated Creatinine Clearance 101.34 ml/min; Glucose 80 mg/dL (74-106); Potassium 3.7 mmol/L (3.5-5.1); Sodium Level 145 mmol/L (136-145)
[2019-04-22 20:00] VITALS: BP 116/75; PULSE 75; RESP 16; TEMP 36.8; O2SAT 97
[2019-04-22] MEDS: Acetaminophen 325 MG Tablet 650 MG PO (22:24)
[2019-04-23 02:00] VITALS: BP 139/86; PULSE 67; RESP 16; TEMP 36.6; O2SAT 96
[2019-04-23 07:05] LABS: Anion Gap 4 (5-15); BUN 5 mg/dL (7-18); BUN/Creat Ratio 8.3 RATIO (10-20); Calcium,Total 8.6 mg/dL (8.5-10.1); Chloride 108 mmol/L (98-107); EST Glomerular Filtration Rate 118 mL/min (>60); Est Glom Filt Rate - Afr Amer 143 mL/min (>60); Estimated Creatinine Clearance 109.78 ml/min; Glucose 89 mg/dL (74-106); Magnesium 1.6 mg/dL (1.6-2.6); Potassium 4.3 mmol/L (3.5-5.1); Sodium Level 139 mmol/L (136-145)
[2019-04-23] MEDS: Magnesium Oxide 400 MG Tablet PO (08:15)
[2019-04-23] MEDS: Multivitamins,Ther W-Minerals Tablet 3 TABLET PO (08:16)
[2019-04-23 09:05] VITALS: BP 114/76; PULSE 80; RESP 24; TEMP 36.8; O2SAT 98
[2019-04-23] MEDS: Lisinopril 20 MG Tablet PO (10:15)
[2019-04-23] MEDS: Na Biphos/Potassium Phosphate PACKET 1 PACKET PO (10:16)
[2019-04-23] MEDS: Enoxaparin 80 MG/0.8 ML Syringe 70 MG SC (10:19)
[2019-04-23] MEDS: 0.9% Saline Lock 10 ML Syringe IV ×2 (10:26→11:18)
[2019-04-23 10:40] VITALS: BP 123/74; TEMP 36.8
--- NOTE | 2019-04-23 10:41 | DCINST_ITS ---
- Discharge Diagnoses Current Active Problems: Current Active and Chronic Problems (Last Reviewed 01/08/19 @ 11:17 by Marie Maher) Hypokalemia (Acute) Hypomagnesemia (Acute) Iron deficiency anemia (Acute) Short gut syndrome (Acute) You will use the following diet at home:: No restrictions Discharge Activity: Return to Normal Activity Allergies/Adverse Reactions: Allergies adhesive Allergy (Verified 04/21/19 16:29) Itching amoxicillin [Amoxicillin] Allergy (Verified 04/21/19 16:29) Hives Penicillins Allergy (Verified 04/21/19 16:29) Hives Medications to take at Discharge Ergocalciferol [Vitamin D] 50,000 unit PO MOTUWETH 10/09/14 Calcium Carbonate [Tums] 500 mg PO TIDCM 04/27/16 L.acidoph,Paracasei, B.lactis [Probiotic] 1 cap PO DAILY 04/27/16 Multivit with Calcium,Iron,Min [Multiple Vitamins For Women] 3 tab PO DAILY 04/27/16 magnesium L-lactate ER 84 mg tablet,extended release 252 mg PO TID tab 01/24/18 Enoxaparin [Lovenox] 70 mg SUBCUT BID 09/03/18 Lactose-Reduced Food [Ensure High Protein] 237 ml PO TID 09/03/18 Lisinopril 20 mg PO DAILY 12/19/18 Potassium Chloride [K-Dur] 80 meq PO TID 03/03/19 Primary Care Physician: José Luis Motley MD [Primary Care Provider] - Please follow up with your Primary Care Physician in: 1 Week Test Results: Test results from this visit will be discussed in further detail at your follow- up appointment, if applicable. Please Follow Up With: [facility] GI/dietitian When: As scheduled Please Follow Up With: Luna Zurita MD When: 1-2 Weeks, ovarian cysts Proposed Discharge Date: 04/23/19
--- NOTE | 2019-04-23 10:43 | DS.PCM_ITS ---
<Inés Lockett - Last Filed: 04/23/19 10:49> Discharge Date and Diagnosis Date of Admission: 04/21/19 Date of Discharge: 04/23/19 - Primary Discharge Diagnosis Active and Suspected Problems (Last Reviewed 01/08/19 @ 11:17 by Marie Maher) 1. Hypokalemia, hypomagnesemia, hypophosphatemia-secondary to short gut syndrome 2. Iron deficiency anemia secondary to short gut syndrome 3. 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 Hypercoagulable state secondary to protein C, protein S deficiency 5. Hypertension - Secondary Discharge Diagnosis Chronic Problems (Last Reviewed 01/08/19 @ 11:17 by Marie Maher) Iron deficiency anemia (Chronic) Protein S deficiency (Chronic) Protein C deficiency (Chronic) Short gut syndrome (Chronic) Hypercoagulable state, primary (Chronic) Hospital Course and Treatment Operations: None Procedures: None Summary of Care Provided: The patient is a 39 year old F admitted 04/21/2019 due to weakness. 1. Hypokalemia, hypomagnesemia, hypophosphatemia-secondary to short gut syndrome-replaced per protocol. Electrolytes stable at discharge. Follow-up with primary care physician in 1 week. Follow-up with [facility] GI/dietitian as scheduled. Patient receives routine outpatient infusions. 2. Iron deficiency anemia secondary to short gut syndrome-IV Venofer during admission x3 doses. Patient states [facility] team who manages her short gut syndrome is adding IV Venofer to her outpatient infusions. 3. 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 Follows with [facility] GI and dietary specialist. 4. Hypercoagulable state secondary to protein C, protein S deficiency-on therapeutic Lovenox. 5. Hypertension-stable, continue home lisinopril regimen. General: Alert, Oriented x3, Cooperative HEENT: Atraumatic, PERRLA, EOMI, Normocephalic Neck: Supple, No JVD, Negative Carotid Bruits Lungs: Clear to auscultation, Normal air movement Cardiovascular: Regular rate, Regular Rhythm, Normal S1, Normal S2, No murmurs Abdomen: Bowel Sounds Present, Soft, Non Tender, Non-Distended Extremities: No clubbing, No cyanosis, No edema, Capillary Refill Less than 3 Seconds Skin: No rashes, No breakdown Musculoskeletal: No Tenderness to Palpation of Joints or Extremities Neurological: Cranial nerves II-XII grossly intact, Neuro grossly intact Psych/Mental Status: Normal Affect, Appropriate Patient seen and examined prior to discharge. Physical assessment as noted above. Patient is stable for discharge with follow up recommendations as noted above. This patient was seen by VERONICA Rapp under the supervision of Dr. Pierce. - Physical Exam Vitals/I&O's: Vital Signs Temp Pulse Resp BP Pulse Ox 97.9 F 67 16 139/86 H 96 04/23/19 02:00 04/23/19 02:00 04/23/19 02:00 04/23/19 02:00 04/23/19 02:00 Oxygen Delivery Method Room Air Weight: 157 lb 10.088 oz Body Mass Index (BMI) 27.0 Intake and Output for Last 24 Hours 04/21/19 04/22/19 04/23/19 23:59 23:59 23:59 Intake Total 606.33 / 1006.33 1123.3333 / 1473.3333 810 / 810 Balance 606.33 / 1006.33 1123.3333 / 1473.3333 810 / 810 Laboratory Results 04/22/19 15:40: Sodium 145, Potassium 3.7, Chloride 117 H, Carbon Dioxide 20.0 L , Anion Gap 8, BUN 5 L, Creatinine 0.65, Estim Creat Clear Calc 101.34, Est GFR (MDRD) Af Amer 131, Est GFR (MDRD) Non-Af 109, BUN/Creatinine Ratio 7.7 L, Glucose 80, Calcium 7.9 L 04/23/19 06:05: Sodium 139, Potassium 4.3, Chloride 108 H, Carbon Dioxide 27.0, Anion Gap 4 L, BUN 5 L, Creatinine 0.60, Estim Creat Clear Calc 109.78, Est GFR (MDRD) Af Amer 143, Est GFR (MDRD) Non-Af 118, BUN/Creatinine Ratio 8.3 L, Glucose 89, Calcium 8.6, Phosphorus 2.0 L, Magnesium 1.6 Current Medications Acetaminophen (Tylenol) 650 mg PO Q6H PRN PRN PRN Reason: Pain Score 1-10/10 Last Admin: 04/22/19 22:24 Dose: 650 mg Documented by: Enoxaparin Sodium (Lovenox) 70 mg SC BID [facility] Last Admin: 04/23/19 10:19 Dose: 70 mg Documented by: Ergocalciferol (Vitamin D) 50,000 unit PO MoTuWeTh@1000 [facility] Last Admin: 04/23/19 10:15 Dose: 50,000 unit Documented by: Sodium Chloride () 250 mls @ 15 mls/hr IV .[id number] PRN PRN Reason: Saline Flush Lisinopril (Zestril) 20 mg PO DAILY [facility] Last Admin: 04/23/19 10:15 Dose: 20 mg Documented by: [facility] (Mag-Ox 400) [facility] Admin: 04/23/19 08:15 Dose: 400 mg Documented by: Multivitamins/Minerals (Multivitamin With Minerals) 3 tablet PO DAILY@0800 [facility] Last Admin: 04/23/19 08:16 Dose: 3 tablet Documented by: Nutritional Formula (Lactose Free) (Ensure Clear) 237 ml PO TID [facility] Last Admin: 04/23/19 05:04 Dose: Not Given Documented by: Potassium Chloride (K-Dur) 80 meq PO TIDCM [facility] Last Admin: 04/23/19 08:15 Dose: 80 meq Documented by: Potassium Phos/Sodium Phos (Neutra-Phos Packet) 1 packet PO TID [facility] Stop: 04/25/19 07:31 Last Admin: 04/23/19 10:16 Dose: 1 packet Documented by: Sodium Chloride () 10 - 40 ml IV UD PRN PRN Reason: SALINE FLUSH Last Admin: 04/23/19 10:26 Dose: 10 ml Documented by: Discharge Diet: No Restrictions Discharge Activity: Return to Normal Activity Home Medications: Medications to take at Discharge Ergocalciferol [Vitamin D] 50,000 unit PO MOTUWETH 10/09/14 Calcium Carbonate [Tums] 500 mg PO TIDCM 04/27/16 L.acidoph,Paracasei, B.lactis [Probiotic] 1 cap PO DAILY 04/27/16 Multivit with Calcium,Iron,Min [Multiple Vitamins For Women] 3 tab PO DAILY 04/27/16 magnesium L-lactate ER 84 mg tablet,extended release 252 mg PO TID tab 01/24/18 Enoxaparin [Lovenox] 70 mg SUBCUT BID 09/03/18 Lactose-Reduced Food [Ensure High Protein] 237 ml PO TID 09/03/18 Lisinopril 20 mg PO DAILY 12/19/18 Potassium Chloride [K-Dur] 80 meq PO TID 03/03/19 Primary Care Physician: José Luis Motley MD [Primary Care Provider] - Please follow up with your Primary Care Physician in: 1 Week Please Follow Up With: [facility] GI/dietitian When: As scheduled Please Follow Up With: Luna Zurita MD When: 1-2 Weeks, ovarian cysts Disposition: Home Minutes spent on discharge:: 35 Patient Condition:: Stable Medical Necessity - Tobacco Use Smoking Status: Former smoker Tobacco Use: Cigarettes Meaningful Use Info Meaningful Use Diagnoses (Choose all that apply): None applicable <Bran Pierce - Last Filed: 04/23/19 17:03> Discharge Date and Diagnosis - Secondary Discharge Diagnosis Chronic Problems (Last Reviewed 01/08/19 @ 11:17 by Marie Maher) Iron deficiency anemia (Chronic) Protein S deficiency (Chronic) Protein C deficiency (Chronic) Short gut syndrome (Chronic) Hypercoagulable state, primary (Chronic) Hospital Course and Treatment Summary of Care Provided: This patient was seen in conjunction with BUSINESS INFORMATION CONSULTANT, Inés. I have independently interviewed and examined the patient and reviewed pertinent history, examination findings, laboratory and plan of management. I have reviewed the note and agree with the documented findings with the few additional points. In brief, patient is admitted for feeling generalized weakness, weakness and diarrhea. Patient has chronic diarrhea secondary to short bowel syndrome and usually gets 4-6 bowel movements every day but this is exacerbated last few days with increased frequency and volume of stool. 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 1. Acute on chronic diarrhea with dehydration and severe electrolyte abnormality: Patient has severe electrolyte abnormality including hypokalemia, hypomagnesemia and hypophosphatemia. Electrolytes are being replaced. Blood pressure is stable. 04/23: Severe hypokalemia resolved. Mild hypophosphatemia 2.0. On Neutra-Phos. Magnesium 1.6. 2. Short gut syndrome 3. Iron deficiency anemia: Serum iron is low. On IV Venofer. Other chronic comorbidities include hypercoagulable disorder, protein C protein S deficiency, hypertension. Discharge medication reconciliation done. Discharge follow-up instructions completed. Discharge process discussed with the patient and all questions were answered to patient's satisfaction. Patient is on baseline daily or ROSARIO acute 3 times daily and magnesium lactate 252 mg 3 times daily. Total time spent, exact 35 minutes on discharge meds reconciliation, examination, review of imaging and blood test and discussion with the patient on follow-up instructions. I have discussed my assessment with BUSINESS INFORMATION CONSULTANTInés and orders have been reviewed. [] Subjective: Seen and examined. Patient does not have abdominal pain, diarrhea back to the baseline. Electrolytes are within normal limit. - Physical Exam Vitals/I&O's: Vital Signs Temp Pulse Resp BP Pulse Ox 98.2 F 80 20 H 114/76 98 04/23/19 11:00 04/23/19 11:00 04/23/19 11:00 04/23/19 11:00 04/23/19 11:00 Oxygen Delivery Method Room Air Weight: 157 lb 10.088 oz Body Mass Index (BMI) 27.0 Intake and Output for Last 24 Hours 04/21/19 04/22/19 04/23/19 23:59 23:59 23:59 Intake Total 606.33 / 1006.33 1123.3333 / 1473.3333 909 / 909 Balance 606.33 / 1006.33 1123.3333 / 1473.3333 909 / 909 General: Alert, Oriented x3, Cooperative HEENT: Atraumatic, PERRLA, EOMI, Normocephalic Neck: Supple, No JVD, Negative Carotid Bruits Lungs: Clear to auscultation, Normal air movement, No rhonchi, No wheeze, No rales Cardiovascular: Regular rate, Regular Rhythm, Normal S1, Normal S2, No murmurs Abdomen: Bowel Sounds Present, Soft, Non Tender, Non-Distended, - - Midline abdominal scar present. Extremities: No edema, Capillary Refill Less than 3 Seconds Skin: No rashes, No breakdown Musculoskeletal: No Tenderness to Palpation of Joints or Extremities, Arthritic Changes Neurological: Cranial nerves II-XII grossly intact Psych/Mental Status: Normal Affect, Appropriate Laboratory Results 04/23/19 06:05: Sodium 139, Potassium 4.3, Chloride 108 H, Carbon Dioxide 27.0, Anion Gap 4 L, BUN 5 L, Creatinine 0.60, Estim Creat Clear Calc 109.78, Est GFR (MDRD) Af Amer 143, Est GFR (MDRD) Non-Af 118, BUN/Creatinine Ratio 8.3 L, Glucose 89, Calcium 8.6, Phosphorus 2.0 L, Magnesium 1.6 Code Visit Inpatient E&M: 19923 Disch Hosp
[2019-04-23 10:52] VITALS: PULSE 80; RESP 24; O2SAT 98
[2019-04-23 11:00] VITALS: BP 114/76; PULSE 80; RESP 20; TEMP 36.8; O2SAT 98
--- NOTE | 2019-04-23 11:30 | PHA.DC.MR ---
Pharmacy Service has performed discharge medication reconciliation for this patient. Home Medications Ergocalciferol [Vitamin D] 50,000 unit PO MOTUWETH 10/09/14 Calcium Carbonate [Tums] 500 mg PO TIDCM 04/27/16 L.acidoph,Paracasei, B.lactis [Probiotic] 1 cap PO DAILY 04/27/16 Multivit with Calcium,Iron,Min [Multiple Vitamins For Women] 3 tab PO DAILY 04/27/16 magnesium L-lactate ER 84 mg tablet,extended release 252 mg PO TID tab 01/24/18 Enoxaparin [Lovenox] 70 mg SUBCUT BID 09/03/18 Lactose-Reduced Food [Ensure High Protein] 237 ml PO TID 09/03/18 Lisinopril 20 mg PO DAILY 12/19/18 Potassium Chloride [K-Dur] 80 meq PO TID 03/03/19 The patient's discharge medication list was reviewed for discrepancies and discrepancies were resolved.
== END 2019-04-23 10:42 | disposition home or self-care (01) ==
LOC: ED 16:51 → PCU 19:41
PROVIDERS: Admitting Provider Family Medicine; Emergency Provider Emergency Medicine; Family Provider Family Medicine; PCP Family Medicine; Visit Provider Internal Medicine
DX: K91.2 Postsurgical malabsorption, not elsewhere classified (principal); Y83.9 Surgical procedure, unspecified as the cause of abnormal reaction of the patient, or of later complication, without mention of misadventure at the time of the procedure; E87.6 Hypokalemia; E83.39 Other disorders of phosphorus metabolism; E83.42 Hypomagnesemia; D50.8 Other iron deficiency anemias; D68.59 Other primary thrombophilia; I10 Essential (primary) hypertension; Z79.899 Other long term (current) drug therapy; Z79.01 Long term (current) use of anticoagulants; Z87.891 Personal history of nicotine dependence
CPT/HCPCS: 36415; 80048; 83540; 83550; 83735; 84100; 85025; 96361; 96365; 96366; 96372; 99218; 99285; J1756; J7040; J7050; A4216; G0378

== ENCOUNTER 2019-06-14 17:01 | Emergency (ER) | payer MEDICAID, SELFPAY ==
[2019-06-14 17:01] VITALS: BMI 25.0
[2019-06-14 17:02] VITALS: BP 113/77; PULSE 82; RESP 16; TEMP 36.1; O2SAT 99; BMI 25.0
--- NOTE | 2019-06-14 17:54 | ED.VIS.GEN ---
History of Present Illness Chief Complaint: Dental Informant: Patient Onset: Days - 3 days Context: Gradual Onset Current Severity: Moderate Maximum Severity: Moderate Narrative: She presents with right lower dental pain that is been ongoing for the past 3 days. She states she has a tooth with a cavity. She thinks another piece of it broke off a few days ago. She is had increased pain to this area. She also has pain that radiates to the front of her mandible and up toward her right ear. She has an appointment with a dentist early next month but is going to call tomorrow to see if it can be bumped up. - Past Medical History (1) Short gut syndrome Status: Chronic (2) Hypercoagulable state, primary Status: Chronic (3) Protein C deficiency Status: Chronic (4) Protein S deficiency Status: Chronic Past Medical History - Allergies and Home Meds Allergies/Adverse Reactions: Allergies adhesive Allergy (Verified 04/21/19 16:29) Itching amoxicillin [Amoxicillin] Allergy (Verified 04/21/19 16:29) Hives Penicillins Allergy (Verified 04/21/19 16:29) Hives Primary Care Physician: José Luis Motley MD [Primary Care Provider] - Prior records reviewed: Yes Surgical History: - - Emergent laparotomy with subsequent small bowel resection and partial colonic resection Smoking Status: Former smoker - Family History Paternal Family History: Family History (Last Reviewed 01/08/19 @ 11:17 by Marie Maher) Grandmother Diabetes Heart disease Mother Heart disease Grandfather Lung cancer Liver cancer Brain cancer Family History: Reports: Cancer Maternal Family History: Family History (Last Reviewed 01/08/19 @ 11:17 by Marie Maher) Grandmother Diabetes Heart disease Mother Heart disease Grandfather Lung cancer Liver cancer Brain cancer Family History: Reports: Unknown Review of Systems General: Denies: Chills, Fever Eyes: Denies: Visual changes - bilaterally ENT: Reports: Right ear pain Cardiovascular: Denies: Chest pain Respiratory: Denies: Dyspnea, Cough Gastrointestinal: Denies: Abdominal pain, Nausea, Vomiting, Diarrhea Genitourinary: Denies: Dysuria Musculoskeletal: Denies: Extremity Pain Skin: Denies: Rash Neurological: Denies: Headache Hematologic: Denies: Easy bruising Allergy: Denies: Uticaria Physical Exam Vital Signs/Narrative: Vital Signs Temp Pulse Resp BP Pulse Ox 06/14/19 17:02 97 F L 82 16 113/77 99 Inital Vital Signs reviewed: Yes General: Well nourished, Well developed Head: Normocephalic ENT: Moist mucous membranes, - - Right mandibular second molar with filling in place. Tooth is tender palpation. She has mild surrounding gum edema. Normal posterior pharynx. No trismus. No submandibular fullness. Neck: Supple Cardiovascular: Regular rate, Regular rhythm Respiratory: No distress, CTA bilaterally Abdomen: Soft, Nontender Skin: Normal color Neurological: Alert, Oriented x3 Psychological: Normal affect Diagnostic/Tx/Re-eval - Medical Decision Making Patient does have a penicillin allergy and will be given clindamycin as well as naproxen. She will call her dentist tomorrow for close follow-up. ED Disposition - Plan for ED Patient: Disposition: Home or Assisted Living Diagnosis: Pain, dental Instructions: Dental Pain Prescriptions: Clindamycin [Cleocin] 300 mg PO 4X/DAY #80 cap Transmission Status: Pending to [facility] #30 Naproxen [Naprosyn] 500 mg PO BID PRN PRN #20 tab PRN Reason: Pain Score 4-10/10 Transmission Status: Pending to [facility] #30 Referrals: José Luis Motley MD [Primary Care Provider] - Additional Instructions: Follow-up with your dentist as soon as possible.
[2019-06-14] MEDS: Clindamycin HCl 150 MG Capsule 300 MG PO (18:10)
[2019-06-14] MEDS: Naproxen 500 MG Tablet PO (18:10)
== END 2019-06-14 18:12 | disposition home or self-care (01) ==
PROVIDERS: Emergency Provider Emergency Medicine; PCP Family Medicine
DX: K08.89 Other specified disorders of teeth and supporting structures (principal); D68.59 Other primary thrombophilia; K91.2 Postsurgical malabsorption, not elsewhere classified; Z79.01 Long term (current) use of anticoagulants; Z87.891 Personal history of nicotine dependence
CPT/HCPCS: 99283

== ENCOUNTER 2019-07-06 20:24 | Emergency (ER) | payer MEDICAID, SELFPAY ==
[2019-07-06 20:25] VITALS: BP 154/102; PULSE 102; RESP 16; TEMP 38.2; O2SAT 95; BMI 25.0
[2019-07-06] MEDS: 0.9% Normal Saline 1,000 ML 1000 ML IV (21:09)
[2019-07-06] MEDS: Acetaminophen 325 MG Tablet 650 MG PO (21:10)
--- NOTE | 2019-07-06 21:52 | ED.DCSUM_ITS ---
- ER Visit Summary Date of Service: 07/06/19 Chief Complaint: [Fever, cough, and sore throat] History of Present Illness: The patient is a 39 F [presents to the emergency department with symptoms that started around 8 AM this morning. Patient does complain of a dry cough. Patient complains of body aches. 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 Patient denies urinary symptoms. She denies vomiting or diarrhea.] Patient has history of short gut syndrome. Patient has had partial small bowel resection. He is currently on Lovenox. Physical Examination: [HEENT-PERRLA, EOMI. Cranial nerves II through XII grossly intact. TMs clear. Mucous membranes moist. No adenopathy. Cardiovascular-regular rate and rhythm without murmur or ectopy Lungs-clear to auscultation, chest wall stable without crepitus or subcu emphysema Abdomen-normoactive bowel sounds, soft, nontender, no rebound or rigidity, no peritoneal signs. Extremities-intact ?4, normal range of motion, normal pulses, atraumatic] Test Results: [Influenza screen was negative. Strep screen was negative.] Emergency Department Course and Treatment: [Patient initially was given Tylenol and given a liter normal same fluid bolus. Patient continued complaint a lot of pain in her body and was given 4 mg of morphine and 4 mg of Zofran. Patient states that she cannot take anti-inflammatories due to her blood thinners.] Treatment Plan: [Patient would like to be treated for the flu as I suspect patient still have the flu despite the negative influenza screen. He is within the window and she will be started on Tamiflu. Patient will be given a few [place] for pain] Disposition: [Discharged home in stable condition] Impression: [Viral URI-suspect influenza] This note was generated with [employer] dictation software. It may contain incorrect words, spelling, and punctuation that were not noted in review of the chart prior to signing ED Disposition - Plan for ED Patient: Referrals: José Luis Motley MD [Primary Care Provider] -
--- NOTE | 2019-07-06 21:55 | DCINST.ED_ITS ---
ED Disposition - Plan for ED Patient: Instructions: INFLUENZA (Adult) Prescriptions: Hydrocodone Bitart/Apap 5-325 [[place] 5MG-325MG] 1 tab PO Q4H PRN PRN 2 Days #10 tab PRN Reason: Pain Prescription Printed Oseltamivir Phosphate [Tamiflu] 75 mg PO BID #9 cap Prescription Printed Referrals: José Luis Motley MD [Primary Care Provider] - 3-5 Days
[2019-07-06] MEDS: Ondansetron 4 MG/2 ML Vial IV (21:57)
[2019-07-06] MEDS: Morphine 4 MG/ML Syringe IV (21:57)
[2019-07-06] MEDS: Oseltamivir Phosphate 75 MG Capsule PO (22:43)
[2019-07-06 22:46] VITALS: PULSE 70; RESP 16; O2SAT 98
== END 2019-07-06 22:46 | disposition home or self-care (01) ==
LOC: ED 20:59
PROVIDERS: Emergency Provider Emergency Medicine; PCP Family Medicine
DX: J06.9 Acute upper respiratory infection, unspecified (principal)
CPT/HCPCS: 87804; 87880; 99285; J7030; A4216; J2405

== ENCOUNTER 2020-01-31 13:59 | Emergency (ER) | payer MEDICAID, SELFPAY ==
[2020-01-31 14:00] VITALS: BP 151/105; PULSE 95; RESP 18; TEMP 36.6; O2SAT 99; BMI 28.0
[2020-01-31 15:24] LABS: Mucous, Urine 0 SEEN /hpf (<or=2+); Red Blood Cells-Urine 0 SEEN /hpf (0-5)
[2020-01-31 15:25] LABS: Color, Urine Yellow (Yellow); Glucose, Dipstick Normal (Normal); Ketone-Dipstick Negative (Negative); Leukocyte Esterase-Dipstick 100 /ul (Negative); Nitrite-Dipstick Positive (Negative); Occult Blood-Urine 10 /ul (Negative); Protein-Dipstick Negative (Negative); Urine Bilirubin Dipstick Negative (Negative); Urine Clarity Clear (Clear); Urine Urobilinogen Normal (Normal); Urine pH 6.5 (5.0 - 8.0)
[2020-01-31 15:46] LABS: Bacteria 1+ /hpf (None Seen); Squamous Epithelial Cells - UA 0-5 SEEN /hpf (5-10); White Blood Cells 0-5 SEEN /hpf (0-5)
--- NOTE | 2020-01-31 15:50 | ED.VISSUMM ---
- ER Visit Summary Date of Service: 01/31/20 Chief Complaint: [Dysuria] History of Present Illness: The patient is a 39 F [presents to the emergency department with complaint of dysuria for the last 2 days. Patient planes of frequency and suprapubic pressure. She is had no fever or vomiting. She had some intermittent low back discomfort. Patient has history of hypertension as well as history of short gut syndrome. Patient is on chronic Lovenox due to protein C&S deficiency and history of clotting.] Physical Examination: [HEENT-PERRLA, EOMI. Cranial nerves II through XII grossly intact. TMs clear. Mucous membranes moist. No adenopathy. Cardiovascular-regular rate and rhythm without murmur or ectopy Lungs-clear to auscultation, chest wall stable without crepitus or subcu emphysema Abdomen-normoactive bowel sounds, soft. Patient does have some suprapubic tenderness on palpation. There is no rebound rigidity, or peritoneal signs. No CVA tenderness. Extremities-intact ?4, normal range of motion, normal pulses, atraumatic] Test Results: [Urinalysis obtained was positive for nitrites as well as 100 leukocyte Estrace. Patient was positive for 0-5 WBCs and +1 bacteria.] Emergency Department Course and Treatment: [Patient was started on Bactrim and Pyridium. Urine culture was sent.] Treatment Plan: [Patient will be treated with Pyridium and Bactrim. Patient to follow-up with primary care physician 3 to 5 days. I will also give her a prescription for 1 Diflucan tablet as she gets yeast infections with antibiotic usage.] Disposition: [Discharged home in stable condition] Impression: [UTI] This note was generated with [employer] dictation software. It may contain incorrect words, spelling, and punctuation that were not noted in review of the chart prior to signing ED Disposition - Plan for ED Patient: Referrals: José Luis Motley MD [Primary Care Provider] -
--- NOTE | 2020-01-31 15:52 | DCINST.ED_ITS ---
ED Disposition - Plan for ED Patient: Instructions: ED CYSTITIS Female Adult Prescriptions: Smz/Tmp Ds [Bactrim Ds] 1 tab PO BID #6 tab Transmission Status: Pending to [facility] #30 Fluconazole [Diflucan] 150 mg PO X1 #1 tab Transmission Status: Pending to [facility] #30 Phenazopyridine HCl [Pyridium] 200 mg PO BID PRN PRN #10 tab PRN Reason: Pain Transmission Status: Pending to [facility] #30 Referrals: José Luis Motley MD [Primary Care Provider] - 3-5 Days
[2020-01-31] MEDS: Smz/Tmp Ds Tablet 1 TABLET PO (16:01)
[2020-01-31] MEDS: Phenazopyridine 95 MG Tablet 190 MG PO (16:01)
--- NOTE | 2020-01-31 16:04 | ED.RN ---
DISCHARGE INSTRUCTIONS GIVEN TO AND REVIEWED WITH PATIENT, PATIENT DENIES QUESTIONS OR CONCERNS AND VOICES UNDERSTANDING OF DISCHARGE INSTRUCTIONS. PT AMBULATES OUT OF ROOM WITHOUT DIFFICULTY.
== END 2020-01-31 16:07 | disposition home or self-care (01) ==
LOC: ED 14:33
PROVIDERS: Emergency Provider Emergency Medicine; PCP Family Medicine
DX: N39.0 Urinary tract infection, site not specified (principal); F17.200 Nicotine dependence, unspecified, uncomplicated; Z79.01 Long term (current) use of anticoagulants
CPT/HCPCS: 81001; 87077; 87086; 87088; 87186; 99283

== ENCOUNTER 2020-02-23 11:11 | Emergency (ER) | payer MEDICAID, SELFPAY ==
[2020-02-23 11:12] VITALS: BP 169/97; PULSE 70; RESP 18; TEMP 36.1; O2SAT 100; BMI 27.4
--- NOTE | 2020-02-23 11:30 | ED.VIS.GEN ---
History of Present Illness Chief Complaint: General Illness Detail of Chief Complaint: malaise Informant: Patient Onset: Days - 2-3 Context: Gradual Onset Timing: Continuous Quality: Malaise, abdominal aching Location: Feeling poorly all over, chills, aching left upper quadrant Current Severity: Mild Maximum Severity: Mild Worsened by: Nothing Relieved by: Nothing. Taking supplementation/vitamins as prescribed. Associated Symptoms: Chills without fevers. Chronic diarrhea 6-8 times daily. Narrative: Patient feeling poorly and feels this is related to her short gut syndrome, she has had low levels of potassium and magnesium in the past when she has felt this way and had to be admitted for replacement. The last time was several months ago. She has had no recent illnesses or other issues. She has been compliant with her supplementation and Lovenox for protein C and protein S deficiency. She had to have significant amount of bowel surgically resected due to thrombosis prior to being placed on Lovenox. She has had no hematochezia or bleeding from elsewhere recently, or changes in her diarrhea. Patient presents during the national coronavirus emergency declaration/pandemic. She denies any known contact with anyone infected with COVID-19. She denies traveling out of the immediate area recently. Prior similar symptoms: Yes Recent Illness/Hospitalization: No - Past Medical History (1) Iron deficiency anemia Status: Chronic (2) Protein C deficiency Status: Chronic (3) Protein S deficiency Status: Chronic (4) Short gut syndrome Status: Chronic Past Medical History - Allergies and Home Meds Allergies/Adverse Reactions: Allergies adhesive Allergy (Verified 02/23/20 11:14) Itching amoxicillin [Amoxicillin] Allergy (Verified 02/23/20 11:14) Hives Penicillins Allergy (Verified 02/23/20 11:14) Hives Primary Care Physician: José Luis Motley MD [Primary Care Provider] - Surgical History: - - Emergent laparotomy with subsequent small bowel resection and partial colonic resection Smoking Status: Never smoker Alcohol: None Drugs: None - Family History Paternal Family History: Family History (Last Reviewed 01/08/19 @ 11:17 by Marie Maher) Grandmother Diabetes Heart disease Mother Heart disease Grandfather Lung cancer Liver cancer Brain cancer Family History: Reports: Cancer Maternal Family History: Family History (Last Reviewed 01/08/19 @ 11:17 by Marie Maher) Grandmother Diabetes Heart disease Mother Heart disease Grandfather Lung cancer Liver cancer Brain cancer Family History: Reports: Unknown Review of Systems General: Reports: Chills, Malaise. Denies: Fever, Sweats Eyes: Denies: Visual changes - bilaterally, Diplopia ENT: Denies: Bilateral ear pain, Rhinorrhea, Sore throat Cardiovascular: Denies: Chest pain, Palpitations Respiratory: Denies: Dyspnea, Cough, Dyspnea on exertion Gastrointestinal: Reports: Abdominal pain, Diarrhea. Denies: Nausea, Vomiting, Melena, Hematochezia Genitourinary: Denies: Dysuria, Hematuria, Frequency Musculoskeletal: Denies: Myalgias, Back pain, Swelling, Extremity Pain Skin: Denies: Rash, Wounds Neurological: Denies: Headache, Weakness, Numbness Physical Exam Vital Signs/Narrative: Vital Signs Temp Pulse Resp BP Pulse Ox 02/23/20 11:12 97 F L 70 18 169/97 H 100 Inital Vital Signs reviewed: Yes General: Well nourished, Well developed, No Acute Distress Head: Normocephalic, Atraumatic Eyes: Perrl, EOMI ENT: Moist mucous membranes, No rhinorrhea Neck: Supple, Nontender Cardiovascular: Regular rate, Regular rhythm, No murmurs. Negative for: Tachycardia Respiratory: No distress, CTA bilaterally, Chest nontender Abdomen: Soft, Nondistended, Normal bowel sounds, No masses, Tender - Mild, throughout lower abdomen and left upper quadrant. Negative for: Guarding, Rebound tenderness Back: Nontender, Normal Inspection. Negative for: CVA tenderness Extremities: Nontender, No edema Skin: Normal color, No rash, No Trauma Neurological: Alert, Oriented x3, Cranial nerves II-XII grossly intact, Normal Strength, Normal Sensation Psychological: Normal affect, Normal Mood Diagnostic/Tx/Re-eval Laboratory Results 02/23/20 02/23/20 02/23/20 11:40 11:40 11:40 WBC 4.6 RBC 4.18 L Hgb 12.8 Hct 39.7 MCV 95.0 MCH 30.6 MCHC 32.2 RDW Std Deviation 48.4 H RDW Coeff of Jim 13.9 Plt Count 221 MPV 9.8 Immature Gran % (Auto) 0.000 Neut % (Auto) 68.0 Lymph % (Auto) 25.6 [place] % (Auto) 4.3 Eos % (Auto) 1.7 Baso % (Auto) 0.4 Absolute Neuts (auto) 3.2 Absolute Lymphs (auto) 1.19 Nucleated RBC % 0 Sodium 141 Potassium 2.7 L* Chloride 107 Carbon Dioxide 30.0 Anion Gap 4 L BUN 8 Creatinine 0.78 Estim Creat Clear Calc 84.45 Est GFR (MDRD) Af Amer 106 Est GFR (MDRD) Non-Af 88 BUN/Creatinine Ratio 10.3 Glucose 76 Calcium 8.7 Magnesium 1.3 L Serum , Qual NEGATIVE - Medical Decision Making Patient's potassium and magnesium are low. I offered admission, but she declines and states that in the past she has taken physician orders from her [facility] doctors to the local outpatient infusion center, and multiple days as an outpatient had infusions of potassium and magnesium as an outpatient. She would prefer to do that. Certainly I think that is fine and she can always return. She was given initial doses of potassium 10 mEq and magnesium 2 g here in the IV before discharge. ED Disposition - Plan for ED Patient: Disposition: Home or Assisted Living Diagnosis: Hypokalemia, Hypomagnesemia, Short gut syndrome Instructions: ED Potassium Deficiency Referrals: José Luis Motley MD [Primary Care Provider] - doctor, your [Other] (call to discuss outpatient infusion plans)
[2020-02-23 11:50] LABS: Absolute Lymphocyte Count 1.19 X10^3/uL (0.83-4.51); Absolute Neutrophil Count 3.2 X10^3/uL (2.0-7.7); Basophil# 0.02 X10^3/uL; Basophil% 0.4 % (0-1); Eosinophil# 0.08 X10^3/uL; Eosinophils% 1.7 % (0-5); Hematocrit 39.7 % (37-47); Hemoglobin 12.8 g/dL (12.0-15.0); Lymphocyte # 1.19 X10^3/ul (4.0); Lymphocyte % 25.6 % (19-41); Mean Corp Hgb Conc 32.2 g/dL (32-36); Mean Corpuscular Hgb 30.6 pg (27.0-32.0); Mean Platelet Vol. 9.8 fl (6.2-12.0); Monocyte% 4.3 % (0-10); NRBC Flagged by Analyzer 0 % (0-5); Neutrophil # 3.15 X10^3/uL (2.7-7.7); Platelet Count 221 K/mm3 (150-450); RBC Distribution Width CV 13.9 % (11.6-14.6); RBC Distribution Width SD 48.4 fl (35.1-43.9); Red Blood Count 4.18 M/mm3 (4.2-5.4); White Blood Count 4.6 K/mm3 (4.4-11.0)
[2020-02-23] MEDS: 0.9% Normal Saline 1,000 ML 1000 ML IV (11:51)
[2020-02-23 12:09] LABS: Anion Gap 4 (5-15); BUN 8 mg/dL (7-18); BUN/Creat Ratio 10.3 RATIO (10-20); Calcium,Total 8.7 mg/dL (8.5-10.1); Chloride 107 mmol/L (98-107); Creatinine, Serum 0.78 mg/dL (0.55-1.02); EST Glomerular Filtration Rate 88 mL/min (>60); Est Glom Filt Rate - Afr Amer 106 mL/min (>60); Estimated Creatinine Clearance 84.45 ml/min; Glucose 76 mg/dL (74-106); Magnesium 1.3 mg/dL (1.6-2.6); Potassium 2.7 mmol/L (3.5-5.1); Sodium Level 141 mmol/L (136-145)
[2020-02-23 12:15] LABS: Internal QC Validated? YES +Cl - CLEAR BKGD; Pregnancy, Serum, hCG Quali. NEGATIVE Negative
--- NOTE | 2020-02-23 14:02 | ED.RN ---
PT REQUESTED THAT SHE RECEIVE POTASSIUM AND MAGNESIUM INFUSION TOMORROW IN INFUSION CENTER. PHYSICIAN NOTIFIED OF REQUEST. PHYSICIAN RECOMMENDED AGAINST IT BUT AGREED IF PT INSISTENT. PT INFORMED OF PHYSICIAN RECOMMENDATION, AND MADE DECISION TO GO HOME TO RECEIVE INFUSION AT LATER TIME. PT EDUCATED ABOUT THE RISKS OF NOT RECEIVING MEDICATIONS, PT VERBALIZED UNDERSTANDING. PT WAS D/C HOME PER REQUEST.
== END 2020-02-23 14:05 | disposition home or self-care (01) ==
PROVIDERS: Emergency Provider Emergency Medicine; PCP Family Medicine
DX: E87.6 Hypokalemia (principal); E83.42 Hypomagnesemia; K91.2 Postsurgical malabsorption, not elsewhere classified; Z79.01 Long term (current) use of anticoagulants
CPT/HCPCS: 80048; 83735; 84703; 85025; 96360; 96361; 99283; J7030; A4216

== ENCOUNTER 2020-03-01 20:10 | Emergency (ER) | payer MEDICAID, SELFPAY ==
[2020-03-01 20:11] VITALS: BP 138/99; PULSE 76; RESP 20; TEMP 36.2; O2SAT 99; BMI 24.5
[2020-03-01 20:14] VITALS: BP 134/90; PULSE 83; RESP 17; O2SAT 100
--- NOTE | 2020-03-01 20:18 | RAD_ITS ---
STUDY: X-RAY CHEST REASON FOR EXAM: Female, 39 years old. CHEST PAIN WITH NUMBNESS DOWN LEFT ARM TECHNIQUE: AP portable COMPARISON: 03/03/2019 FINDINGS: Diminished inspiratory effort however the lungs are clear There is no demonstrated pleural abnormality. Normal size heart. Normal mediastinum and yoly. Normal visualized pulmonary arteries. Normal visualized aortic arch and descending thoracic aorta. Thoracic spine demonstrates mild scoliosis.. Normal visualized ribs, clavicles, and shoulders. There is no demonstrated abnormality of the visualized soft tissue structures of the upper abdomen. RAD/Chest 1 View (Portable) IMPRESSION: No acute cardiopulmonary pathology Electronically Signed: Kota Oakley MD at 21:02 EDT , Service support ,
--- NOTE | 2020-03-01 20:18 | EKG12_ITS ---
Test Reason : CP Blood Pressure : / mmHG Vent. Rate : 076 BPM Atrial Rate : 076 BPM P-R Int : 130 ms QRS Dur : 096 ms QT Int : 382 ms P-R-T Axes : 044 027 063 degrees QTc Int : 429 ms Normal sinus rhythm Normal ECG Confirmed by YAQUELIN RUIZ, ABHAY ([id number]), news videotape editor SCOTT BOBO ([id number]) on 03/07/2020 8:16:24 A M Referred By: CARMEN Confirmed By:BUTCH JAMISON MD
[2020-03-01 20:21] VITALS: O2SAT 100
[2020-03-01] MEDS: Acetaminophen 500 MG Tablet 1000 MG PO (20:29)
[2020-03-01] MEDS: Aspirin 81 MG TAB.CHEW 324 MG PO (20:29)
[2020-03-01 20:36] LABS: Absolute Lymphocyte Count 2.29 X10^3/uL (0.83-4.51); Absolute Neutrophil Count 4.1 X10^3/uL (2.0-7.7); Basophil# 0.04 X10^3/uL; Basophil% 0.6 % (0-1); Eosinophil# 0.12 X10^3/uL; Eosinophils% 1.7 % (0-5); Hematocrit 42.4 % (37-47); Hemoglobin 13.5 g/dL (12.0-15.0); Lymphocyte # 2.29 X10^3/ul (4.0); Lymphocyte % 32.3 % (19-41); Mean Corp Hgb Conc 31.8 g/dL (32-36); Mean Corpuscular Hgb 29.7 pg (27.0-32.0); Mean Corpuscular Volume 93.4 fL (81-99); Mean Platelet Vol. 9.5 fl (6.2-12.0); Monocyte# 0.49 X10^3/uL; Monocyte% 6.9 % (0-10); NRBC Flagged by Analyzer 0 % (0-5); Neutrophil # 4.14 X10^3/uL (2.7-7.7); Neutrophil % 58.2 % (47-70); Platelet Count 267 K/mm3 (150-450); RBC Distribution Width CV 13.7 % (11.6-14.6); RBC Distribution Width SD 46.9 fl (35.1-43.9); Red Blood Count 4.54 M/mm3 (4.2-5.4); White Blood Count 7.1 K/mm3 (4.4-11.0)
--- NOTE | 2020-03-01 20:40 | ED.VIS.GEN ---
History of Present Illness Chief Complaint: Chest Pain Informant: Patient Narrative: 39-year-old female with past medical history of short gut syndrome presents with concern for left upper abdominal and chest pain. States that it began over the past 2 days. States it is been constant. Sharp in nature. Denies any dyspnea, nausea, vomiting, diaphoresis. States that she has had significant electrolyte abnormalities before in the past. States she has been eating and drinking normally. Denies any urinary symptoms, constipation, diarrhea. Past Medical History - Allergies and Home Meds Allergies/Adverse Reactions: Allergies adhesive Allergy (Verified 03/01/20 20:11) Itching amoxicillin [Amoxicillin] Allergy (Verified 03/01/20 20:11) Hives Penicillins Allergy (Verified 03/01/20 20:11) Hives Primary Care Physician: José Luis Motley MD [Primary Care Provider] - Prior records reviewed: Yes Past Medical History: - - short gut syndrome Surgical History: - - Emergent laparotomy with subsequent small bowel resection and partial colonic resection Lives: With Family Smoking Status: Current every day smoker Alcohol: None Drugs: None - Family History Paternal Family History: Family History (Last Reviewed 01/08/19 @ 11:17 by Marie Maher) Grandmother Diabetes Heart disease Mother Heart disease Grandfather Lung cancer Liver cancer Brain cancer Family History: Reports: Cancer Maternal Family History: Family History (Last Reviewed 01/08/19 @ 11:17 by Marie Maher) Grandmother Diabetes Heart disease Mother Heart disease Grandfather Lung cancer Liver cancer Brain cancer Family History: Reports: Unknown Review of Systems General: Denies: Chills, Fever, Sweats Eyes: Denies: Visual changes - bilaterally, Diplopia ENT: Denies: Rhinorrhea, Sore throat Cardiovascular: Reports: Chest pain. Denies: Palpitations Respiratory: Denies: Dyspnea, Cough, Dyspnea on exertion Gastrointestinal: Reports: Abdominal pain. Denies: Nausea, Vomiting, Diarrhea, Melena, Hematochezia Genitourinary: Denies: Dysuria, Hematuria, Frequency Musculoskeletal: Denies: Back pain, Extremity Pain Skin: Denies: Rash, Wounds Neurological: Denies: Headache, Weakness, Numbness Physical Exam Vital Signs/Narrative: Vital Signs Temp Pulse Resp BP Pulse Ox 03/01/20 20:21 100 03/01/20 20:14 83 17 134/90 H 100 03/01/20 20:11 97.1 F L 76 20 H 138/99 H 99 General: Well nourished, Well developed, No Acute Distress Head: Normocephalic, Atraumatic Eyes: Perrl, EOMI ENT: Moist mucous membranes, No rhinorrhea Neck: Supple, Nontender Cardiovascular: Regular rate, Regular rhythm, No murmurs Respiratory: No distress, CTA bilaterally, Chest nontender Abdomen: Soft, Nontender, Nondistended, Normal bowel sounds Back: Nontender, Normal Inspection Extremities: Nontender, No edema Skin: Normal color, No rash Neurological: Alert, Oriented x3, Cranial nerves II-XII grossly intact, Normal Strength, Normal Sensation Psychological: Normal affect, Normal Mood Diagnostic/Tx/Re-eval Chest X-Ray - ED: 1 View, Normal - Rhythm Strip Rhythm Strip: Sinus Rhythm Rate: 76 Ectopy: None - EKG Initial EKG Interpretation: Sinus Rhythm - Sinus rhythm at 76 bpm. AR interval 130 ms. QTC of [address] changes. No evidence of ST elevation or depression at this time. - Medical Decision Making Patient appears well and nontoxic. Patient has had constant chest pain for the past 2 days. A single troponin should essentially rule her out for ACS. Chest x-ray negative. Hypokalemia as well as hypomagnesemia. Both will be replaced in the emergency department. Patient will be discharged home with potassium and asked to follow-up with her primary care for recheck. Asked to return for any new or worsening symptoms. Patient agreeable and discharged home in stable condition. Impression: 1. Atypical chest pain 2. Hypokalemia 3. Hypomagnesemia 4. History of short gut syndrome ED Disposition - Plan for ED Patient: Disposition: Home or Assisted Living Instructions: ED Chest Pain Atypical Unkn Cause, Hypokalemia, Hypomagnesemia Prescriptions: Potassium Chloride 40 meq PO DAILY #10 [email or web address] Prescription Printed Referrals: José Luis Motley MD [Primary Care Provider] -
[2020-03-01 20:52] LABS: Anion Gap 6 (5-15); BUN 13 mg/dL (7-18); BUN/Creat Ratio 14.6 RATIO (10-20); Chloride 106 mmol/L (98-107); Creatinine, Serum 0.89 mg/dL (0.55-1.02); EST Glomerular Filtration Rate 75 mL/min (>60); Est Glom Filt Rate - Afr Amer 91 mL/min (>60); Estimated Creatinine Clearance 80.23 ml/min; Glucose 95 mg/dL (74-106); Magnesium 1.3 mg/dL (1.6-2.6); Potassium 2.9 mmol/L (3.5-5.1); Sodium Level 143 mmol/L (136-145)
[2020-03-01] MEDS: Potassium Chloride 10mEq/100mL 10 MEQ/100 ML IV.SOLN. 100 MEQ IV BOLUS ×2 (22:10→23:15)
[2020-03-01 22:25] VITALS: BP 124/95; PULSE 71; RESP 21
[2020-03-02 00:19] VITALS: BP 110/77; PULSE 68; RESP 18; O2SAT 96
[2020-03-02] MEDS: Potassium Chloride 10mEq/100mL 10 MEQ/100 ML IV.SOLN. 100 MEQ IV BOLUS (00:19)
[2020-03-02 01:17] VITALS: BP 103/74; PULSE 66; RESP 19; O2SAT 100
== END 2020-03-02 01:37 | disposition home or self-care (01) ==
PROVIDERS: Emergency Provider Emergency Medicine; PCP Family Medicine
DX: R07.89 Other chest pain (principal); E87.6 Hypokalemia; E83.42 Hypomagnesemia; F17.200 Nicotine dependence, unspecified, uncomplicated
CPT/HCPCS: 71045; 80048; 83735; 84484; 85025; 93005; 96365; 96366; 99281; J7030; A4216

== ENCOUNTER 2020-04-07 16:02 | Emergency (ER) | payer MEDICAID, SELFPAY ==
[2020-04-07 16:04] VITALS: BP 149/90; PULSE 79; RESP 16; TEMP 36.4; O2SAT 99; BMI 27.8
[2020-04-07 16:06] VITALS: BP 149/90; PULSE 79; RESP 16; TEMP 36.4; O2SAT 99
--- NOTE | 2020-04-07 18:14 | ED.RN ---
PT LEFT AT 1735.
== END 2020-04-07 18:27 | disposition left against medical advice (07) ==
LOC: ED 18:25
PROVIDERS: Emergency Provider Emergency Medicine; PCP Family Medicine
DX: Z53.21 Procedure and treatment not carried out due to patient leaving prior to being seen by health care provider (principal)

== ENCOUNTER 2020-05-04 07:55 | Emergency (ER) | payer MEDICAID, SELFPAY ==
[2020-05-04 07:56] VITALS: BP 155/92; PULSE 62; RESP 14; TEMP 36.2; O2SAT 100; BMI 26.6
[2020-05-04 08:04] VITALS: BP 155/92; PULSE 62; RESP 14; TEMP 36.2; O2SAT 100
--- NOTE | 2020-05-04 08:04 | ED.VIS.DENTA ---
History of Present Illness Chief Complaint: Dental Informant: Patient Onset: Days - Onset 3 days ago Context: Sudden Onset Timing: Continuous Quality: Pain Location: Upper back left teeth Current Severity: Mild Maximum Severity: Severe Worsened by: Hot and cold liquids Relieved by: - - Nothing Associated Symptoms: Hot, Cold, Sensitivity, - - Denies fever, facial swelling, but she reports pain over the left maxillary sinus. She denies history of rheumatic fever, SBE, or being immune suppressed. Narrative: Patient is a 40-year-old woman who presents with dental pain that started 3 days ago. She reports hot and cold and sensitivity. She has no other symptoms. She denies inability to open or close her mouth completely. She denies cardiac or respiratory symptoms. She denies nausea or vomiting. She denies rash. Prior similar symptoms: Yes Recent Illness/Hospitalization: No - Past Medical History (1) Hypercoagulable state, primary Status: Chronic (2) Iron deficiency anemia Status: Chronic (3) Protein C deficiency Status: Chronic (4) Protein S deficiency Status: Chronic (5) Short gut syndrome Status: Chronic Past Medical History - Allergies and Home Meds Allergies/Adverse Reactions: Allergies adhesive Allergy (Verified 05/04/20 07:57) Itching amoxicillin [Amoxicillin] Allergy (Verified 05/04/20 07:57) Hives Penicillins Allergy (Verified 05/04/20 07:57) Hives Primary Care Physician: José Luis Motley MD [Primary Care Provider] - Prior records reviewed: Yes Surgical History: - - Emergent laparotomy with subsequent small bowel resection and partial colonic resection Lives: With Family Smoking Status: Unknown if ever smoked Alcohol: Rare Drugs: None - Family History Paternal Family History: Family History (Last Reviewed 01/08/19 @ 11:17 by Marie Maher) Grandmother Diabetes Heart disease Mother Heart disease Grandfather Lung cancer Liver cancer Brain cancer Family History: Reports: Cancer Maternal Family History: Family History (Last Reviewed 01/08/19 @ 11:17 by Marie Maher) Grandmother Diabetes Heart disease Mother Heart disease Grandfather Lung cancer Liver cancer Brain cancer Family History: Reports: Unknown Review of Systems General: Denies: Chills, Fever, Malaise, Subjective Cardiovascular: Denies: Chest pain, Palpitations Respiratory: Denies: Dyspnea, Cough, Dyspnea on exertion Gastrointestinal: Denies: Nausea, Vomiting Musculoskeletal: Denies: Myalgias, Arthralgias, Neck pain Skin: Denies: Rash Neurological: Denies: Headache, Weakness Hematologic: Denies: Easy bruising, Easy bleeding Allergy: Denies: Uticaria, Swelling of the mouth, Swelling of the tongue Physical Exam Vital Signs/Narrative: Vital Signs Temp Pulse Resp BP Pulse Ox 05/04/20 08:04 97.1 F L 62 14 155/92 H 100 05/04/20 07:56 97.1 F L 62 14 155/92 H 100 Inital Vital Signs reviewed: Yes General: Well nourished, Well developed Head: Normocephalic, Atraumatic. Negative for: Trauma, Tenderness ENT: Moist mucous membranes, Nasal congestion, No nasal trauma, No rhinorrhea, Sinus tenderness - Left maxillary region Mouth/Throat: Normal oral mucosa, Normal posterior oropharynx, No sublingual edema, Normal Stensen's duct, Dental abscess, Focal dental decay, Gingivitis, Tenderness on tooth percussion, Widespread dental decay. Negative for: Normal inspection lips/gums, No dental tenderness, No focal abscess, Apthous ulcer, Dental trauma, Dental avulsion, Dentral fracture, Filling loss, Trismus Neck: Supple, No lymphadenopathy, Nontender, No JVD, - - The trachea is midline. There is no inspiratory expiratory stridor.. Negative for: Anterior submandibular lymphadenopathy, Posterior submandibular lymphadenopathy, Anterior submental lymphadenopathy, Posterior submental lymphadenopathy, Soft tissue swelling, Submandibular soft tissue swelling, Submental soft tissue swelling, Parotid tenderness Cardiovascular: Regular rate, Regular rhythm, No murmurs Respiratory: No distress, CTA bilaterally, Chest nontender Extremities: Nontender, No edema Skin: Normal color, No rash, No Trauma. Negative for: Cyanosis, Diaphoresis, Jaundice Neurological: Alert, Oriented x3, Cranial nerves II-XII grossly intact, Normal Strength, Normal Sensation Psychological: Normal affect Diagnostic/Tx/Re-eval - Medical Decision Making Patient has dental caries involving the pulp right lower first molar tooth #30 and has dental decay with exposure of pulp and drainage from tooth #13 and 14. There is inflammation of the gingiva. There is no fluctuance. There is no trismus. She has a dental abscess. Since she is allergic penicillin we will treat with clindamycin and prescribe oral analgesia. She was instructed to contact her dentist. She states she has tried but there is been no response at the office. Recommended [facility] as an alternative. ED Disposition - Plan for ED Patient: Disposition: Home or Assisted Living Diagnosis: Dental abscess, Infected dental carries, Dental caries extending into pulp, Symptomatic irreversible pulpitis Instructions: Dental Abscess Prescriptions: Clindamycin HCl [Cleocin] 300 mg PO Q6H #28 cap Transmission Status: Pending to [address] Ibuprofen 800 mg PO Q8 #14 tab Transmission Status: Pending to [address] Hydrocodone Bitart/Apap 5-325 [[place] 5MG-325MG] 1 tablet PO Q6H PRN PRN 3 Days #10 tablet PRN Reason: Pain Transmission Status: Received by [address] Referrals: José Luis Motley MD [Primary Care Provider] - Tabatha Schaffer [NON-STAFF] - 3-5 Days
[2020-05-04] MEDS: Ibuprofen 400 MG Tablet 800 MG PO (08:49)
[2020-05-04] MEDS: Clindamycin HCl 150 MG Capsule 300 MG PO (08:49)
[2020-05-04] MEDS: HYDROcodone Bitartrate/Apap 5/325 Tablet PO (08:49)
== END 2020-05-04 08:49 | disposition home or self-care (01) ==
LOC: ED 08:20
PROVIDERS: Emergency Provider Emergency Medicine; PCP Family Medicine
DX: K04.7 Periapical abscess without sinus (principal); K02.9 Dental caries, unspecified; K04.02 Irreversible pulpitis
CPT/HCPCS: 99283

== ENCOUNTER → 2020-07-04 10:52 | Outpatient (CLI) | payer MEDICAID, SELFPAY ==
[2020-07-04 11:48] LABS: hCG Titer Quant., Serum < 1 mIU/mL (1-3)
== END ==
PROVIDERS: PCP Family Medicine; Referring Provider Nurse Practitioner Women's Health; Visit Provider Nurse Practitioner Women's Health
DX: N91.2 Amenorrhea, unspecified (principal)
CPT/HCPCS: 36415; 84702

== ENCOUNTER 2020-07-24 06:49 | Emergency (ER) | payer MEDICAID, SELFPAY ==
[2020-07-24 06:50] VITALS: BP 176/106; PULSE 61; RESP 16; TEMP 36.7; O2SAT 100; BMI 27.0
--- NOTE | 2020-07-24 07:06 | CT_ITS ---
STUDY: CT ABDOMEN AND PELVIS WITHOUT CONTRAST REASON FOR EXAM: Female, 40 years old. Kidney Stone RADIATION DOSAGE (If Supplied By Facility): CTDIvol = ( 8.43 ) mGy, DLP = ( 391.52 ) mGycm TECHNIQUE: Transaxial images were obtained from the dome of the diaphragm to the symphysis pubis without oral contrast, and without intravenous contrast. Sagittal and coronal images were reconstructed. Individualized dose optimization techniques were used for this CT. COMPARISON: 03/23/2019 FINDINGS: The visualized lung bases are unremarkable. The visualized portions of the heart are within normal limits. There is decreased attenuation of the liver consistent with steatosis. There are surgical clips in the gallbladder fossa consistent with a prior cholecystectomy. Normal spleen. Normal pancreas. Normal bilateral adrenal glands. Multiple bilateral nonobstructing renal stones. 2 mm obstructing stone of the distal right ureter with mild ureteral dilatation and hydronephrosis. Normal visualized stomach. Normal small intestine. Suspect right hemicolectomy with the suture lines. There is non-visualization of the appendix. Normal abdominal aorta. Normal inferior vena cava. Normal retroperitoneum. Normal urinary bladder. Intrauterine device within the uterus. Normal abdominal wall. Bilateral pars defects of the L5 vertebra consistent with L5 spondylolysis. No anterolisthesis of L5 on S1 to suggest spondylolisthesis. CT/Abdomen/Pelvis without Cont IMPRESSION: 2 mm obstructing stone of the distal right ureter with mild ureteral dilatation and hydronephrosis. Electronically Signed: Brett Velásquez MD at 8:12 EST Tel , Service support ,
--- NOTE | 2020-07-24 07:12 | ED.VIS.GEN ---
History of Present Illness Chief Complaint: Flank Pain Informant: Patient Narrative: 40-year-old female presenting with right flank pain. She states is gradually built. She has associated nausea but not vomiting. She has no GI complaints. Patient has history of UTI but not kidney stones. She is not had fever, chills. She does admit to dysuria. She does not have hematuria. No vaginal complaints. Past Medical History - Allergies and Home Meds Allergies/Adverse Reactions: Allergies adhesive Allergy (Verified 07/24/20 06:49) Itching amoxicillin [Amoxicillin] Allergy (Verified 07/24/20 06:49) Hives Penicillins Allergy (Verified 07/24/20 06:49) Hives Primary Care Physician: José Luis Motley MD [Primary Care Provider] - Prior records reviewed: Yes Past Medical History: - - Short gut syndrome, C and S protein deficiency. Surgical History: - - Emergent laparotomy with subsequent small bowel resection and partial colonic resection Smoking Status: Current every day smoker - Family History Paternal Family History: Family History (Last Reviewed 01/08/19 @ 11:17 by Marie Maher) Grandmother Diabetes Heart disease Mother Heart disease Grandfather Lung cancer Liver cancer Brain cancer Family History: Reports: Cancer Maternal Family History: Family History (Last Reviewed 01/08/19 @ 11:17 by Marie Maher) Grandmother Diabetes Heart disease Mother Heart disease Grandfather Lung cancer Liver cancer Brain cancer Family History: Reports: Unknown Review of Systems General: Denies: Chills, Fever, Sweats Eyes: Denies: Visual changes - bilaterally, Diplopia ENT: Denies: Rhinorrhea, Sore throat Cardiovascular: Denies: Chest pain, Palpitations Respiratory: Denies: Dyspnea, Cough, Dyspnea on exertion Gastrointestinal: Reports: Abdominal pain, Nausea. Denies: Vomiting, Diarrhea, Constipation Genitourinary: Reports: Dysuria. Denies: Hematuria, Frequency Musculoskeletal: Reports: Back pain - Right flank. Denies: Myalgias Skin: Denies: Rash, Abscess Neurological: Denies: Headache, Weakness, Parasthesia Psych: Denies: Depression, Anxiety Physical Exam Vital Signs/Narrative: Vital Signs Temp Pulse Resp BP Pulse Ox 07/24/20 06:50 98.1 F 61 16 176/106 H 100 Inital Vital Signs reviewed: Yes General: Well nourished, No Acute Distress Head: Normocephalic, Atraumatic Eyes: Perrl, EOMI ENT: Moist mucous membranes, No rhinorrhea Cardiovascular: Regular rate, Regular rhythm Respiratory: No distress, CTA bilaterally. Negative for: Wheezing Abdomen: Soft, Nondistended Back: CVA tenderness - Right. Negative for: Spinal tenderness Extremities: Nontender, No edema Skin: Normal color, No rash Neurological: Alert, Oriented x3 Psychological: Normal affect, Normal Mood Diagnostic/Tx/Re-eval - Medical Decision Making Patient presenting with right flank pain. On CT she has 2 mm ureteral stone with hydronephrosis on the right. Blood work is unremarkable with exception of potassium of 3.1. This was replaced orally. She does not have a leukocytosis. Hemoglobin hematocrit are stable. Patient's pain is controlled with morphine and Zofran. Urinalysis is suspicious for infection and therefore patient will be started on Bactrim twice daily for 14 days given her penicillin allergy. Patient is given return precautions. She is given a work note for home. Patient stable for discharge at this time. Impression: 1. 2 mm right-sided ureteral stone 2. Pyelonephritis ED Disposition - Plan for ED Patient: Disposition: Home or Assisted Living Instructions: ED Kidney Stone w/ Colic, ED Pyelonephritis, Female (Adult), Hypokalemia Prescriptions: Smz/Tmp Ds [Bactrim Ds] 1 tab PO BID 14 Days #28 tab Prescription Printed Tamsulosin HCl [Flomax] 0.4 mg PO DAILY #7 cap Prescription Printed Oxycodone HCl/Acetaminophen [Percocet 5/325] 1 tab PO Q6H PRN PRN 3 Days #12 tab PRN Reason: Pain Prescription Printed Ondansetron [Zofran Odt] 4 mg PO Q8H PRN PRN #12 tab PRN Reason: Nausea Prescription Printed Referrals: José Luis Mtoley MD [Primary Care Provider] -
[2020-07-24 07:19] LABS: Absolute Lymphocyte Count 2.64 X10^3/uL (0.83-4.51); Absolute Neutrophil Count 4.7 X10^3/uL (2.0-7.7); Basophil# 0.05 X10^3/uL; Basophil% 0.6 % (0-1); Eosinophils% 2.4 % (0-5); Hematocrit 43.3 % (37-47); Hemoglobin 14.1 g/dL (12.0-15.0); Lymphocyte # 2.64 X10^3/ul (4.0); Mean Corp Hgb Conc 32.6 g/dL (32-36); Mean Corpuscular Hgb 29.7 pg (27.0-32.0); Mean Corpuscular Volume 91.4 fL (81-99); Monocyte% 7.3 % (0-10); NRBC Flagged by Analyzer 0 % (0-5); Neutrophil # 4.74 X10^3/uL (2.7-7.7); Neutrophil % 57.3 % (47-70); Platelet Count 226 K/mm3 (150-450); RBC Distribution Width CV 12.4 % (11.6-14.6); RBC Distribution Width SD 41.4 fl (35.1-43.9); Red Blood Count 4.74 M/mm3 (4.2-5.4); White Blood Count 8.3 K/mm3 (4.4-11.0)
[2020-07-24] MEDS: Ondansetron 4 MG/2 ML Vial IV (07:21)
[2020-07-24] MEDS: Ketorolac 15 MG/ML Vial IV (07:22)
[2020-07-24] MEDS: Morphine 4 MG/ML Syringe IV (07:23)
[2020-07-24 07:33] LABS: Anion Gap 8 (5-15); BUN 12 mg/dL (7-18); BUN/Creat Ratio 16.2 RATIO (10-20); Calcium,Total 9.3 mg/dL (8.5-10.1); Chloride 103 mmol/L (98-107); Creatinine, Serum 0.74 mg/dL (0.55-1.02); EST Glomerular Filtration Rate 93 mL/min (>60); Est Glom Filt Rate - Afr Amer 112 mL/min (>60); Estimated Creatinine Clearance 88.14 ml/min; Glucose 73 mg/dL (74-106); Potassium 3.1 mmol/L (3.5-5.1); Sodium Level 139 mmol/L (136-145)
[2020-07-24 07:36] LABS: Mucous, Urine 0 SEEN /hpf (<or=2+)
[2020-07-24 07:49] LABS: Color, Urine Yellow (Yellow); Glucose, Dipstick Normal (Normal); Ketone-Dipstick 5 mg/dl (Negative); Leukocyte Esterase-Dipstick 500 /ul (Negative); Nitrite-Dipstick Negative (Negative); Occult Blood-Urine 250 /ul (Negative); Protein-Dipstick 30 mg/dl (Negative); Urine Bilirubin Dipstick Negative (Negative); Urine Clarity Cloudy (Clear); Urine Urobilinogen Normal (Normal)
[2020-07-24 08:30] LABS: Bacteria 1+ /hpf (None Seen); Calcium Oxalate Crystals Ur 1+ /hpf (<or=2+); Red Blood Cells-Urine 10-25 SEEN /hpf (0-5); Squamous Epithelial Cells - UA 0-5 SEEN /hpf (5-10); Trichomonas 0-5 SEEN /hpf (None Seen); White Blood Cells 25-50 SEEN /hpf (0-5)
[2020-07-24] MEDS: Potassium Chloride Oral Tablet 20 MEQ 40 MEQ PO (08:42)
[2020-07-24] MEDS: Smz/Tmp Ds Tablet 1 TABLET PO (08:42)
[2020-07-24 08:46] VITALS: RESP 16
== END 2020-07-24 08:46 | disposition home or self-care (01) ==
PROVIDERS: Emergency Provider Student in an Organized Health Care Education/Training Program; PCP Family Medicine
DX: N20.1 Calculus of ureter (principal); N13.6 Pyonephrosis; F17.200 Nicotine dependence, unspecified, uncomplicated
CPT/HCPCS: 74176; 80048; 81001; 85025; 87077; 87086; 87088; 87186; 96374; 96375; 99283; A4216; J2405

== ENCOUNTER 2020-08-23 17:30 | Emergency (ER) | payer MEDICAID, SELFPAY ==
[2020-08-23 17:31] VITALS: BP 159/95; PULSE 64; RESP 14; TEMP 36.7; O2SAT 98; BMI 27.6
--- NOTE | 2020-08-23 18:03 | CT_ITS ---
INDICATION: left flank pain -- Eval for stone EXAMINATION: CT Abdomen And Pelvis W/O Contrast Injection TECHNIQUE: Helically acquired images were obtained of the abdomen and pelvis without the use of IV contrast. A radiation dose optimization technique was used for this scan. Oral contrast: None. COMPARISON: 07/24/2020 FINDINGS: Evaluation of the solid organs and vascular structures is limited without intravenous contrast. Visualized lung bases: Unremarkable Liver: Diffusely hypodense consistent with fatty liver. Gallbladder: Surgically absent. Spleen: Unremarkable Pancreas: Unremarkable Adrenal Glands: Unremarkable Kidneys: 3 mm obstructing stone in the left ureterovesical junction with associated mild left hydroureteronephrosis. Several other additional punctate nonobstructing stones in the left and right kidneys. GI Tract: Multiple surgical suture lines are present in the small bowel. Vasculature: Unremarkable Lymphadenopathy: None Peritoneum: No ascites. Bladder: Unremarkable Reproductive organs: IUD in place. Bones/Soft tissues: No suspicious osseous or soft tissue lesions .Bilateral pars defects of the L5 vertebra. CT/Abdomen/Pelvis without Cont IMPRESSION: 3 mm obstructing stone in the left ureterovesical junction with associated mild left hydroureteronephrosis. Electronically Signed: Jovanni Fang MD at 19:56 EDT Tel , Service support ,
--- NOTE | 2020-08-23 18:09 | ED.VIS.GEN ---
History of Present Illness Chief Complaint: Flank Pain Informant: Patient Narrative: Patient is a 40-year-old female with a past medical history of short gut syndrome, protein C and protein S deficiency on Lovenox injections who presents to the emergency department for left flank pain. This has been present for the past 3 days. She does have a history of kidney stones in the past. She currently rates the pain as an 8 out of 10. She has not been taking anything for this. She denies any urinary symptoms. She has had some mild vaginal bleeding. The pain does wrap around the left flank to the left groin. She denies any fevers or chills. No nausea or vomiting. No chest pain or shortness of breath. No known aggravating or relieving factors. Past Medical History - Allergies and Home Meds Allergies/Adverse Reactions: Allergies adhesive Allergy (Verified 08/23/20 17:31) Itching amoxicillin [Amoxicillin] Allergy (Verified 08/23/20 17:31) Hives Penicillins Allergy (Verified 08/23/20 17:31) Hives Primary Care Physician: Donta Vidales MD [STAFF PHYSICIAN] - 2 Days José Luis Motley MD [Primary Care Provider] - Prior records reviewed: Yes Surgical History: - - Emergent laparotomy with subsequent small bowel resection and partial colonic resection Smoking Status: Current every day smoker - Family History Maternal Family History: Family History (Last Reviewed 01/08/19 @ 11:17 by Marie Maher) Grandmother Diabetes Heart disease Mother Heart disease Grandfather Lung cancer Liver cancer Brain cancer Family History: Reports: Unknown Paternal Family History: Family History (Last Reviewed 01/08/19 @ 11:17 by Marie Maher) Grandmother Diabetes Heart disease Mother Heart disease Grandfather Lung cancer Liver cancer Brain cancer Family History: Reports: Cancer Review of Systems All systems negative except as indicated General: Denies: Chills, Fever, Sweats Eyes: Denies: Visual changes - bilaterally, Diplopia ENT: Denies: Rhinorrhea, Sore throat Cardiovascular: Denies: Chest pain, Palpitations Respiratory: Denies: Dyspnea, Cough, Dyspnea on exertion Gastrointestinal: Denies: Abdominal pain, Nausea, Vomiting, Diarrhea Genitourinary: Denies: Dysuria, Hematuria, Frequency Musculoskeletal: Reports: Back pain. Denies: Extremity Pain Skin: Denies: Rash, Wounds Neurological: Denies: Headache, Weakness, Numbness Physical Exam Vital Signs/Narrative: Vital Signs Temp Pulse Resp BP Pulse Ox 08/23/20 17:31 98.1 F 64 14 159/95 H 98 Inital Vital Signs reviewed: Yes General: Well nourished, Well developed, No Acute Distress Head: Normocephalic, Atraumatic Eyes: Perrl, EOMI ENT: Moist mucous membranes, No rhinorrhea Neck: Supple, Nontender Cardiovascular: Regular rate, Regular rhythm, No murmurs Respiratory: No distress, CTA bilaterally, Chest nontender Abdomen: Soft, Nondistended, Normal bowel sounds, Tender - Left lower quadrant Back: Nontender, Normal Inspection, CVA tenderness - On the left Extremities: Nontender, No edema. Negative for: Calf Tenderness Skin: Normal color, No rash Neurological: Alert, Normal Strength, Normal Sensation Psychological: Normal affect, Normal Mood Diagnostic/Tx/Re-eval - Medical Decision Making Patient presents to the ED for left-sided flank pain for the past 3 days. Upon arrival to the emergency department she is mildly hypertensive but otherwise normal vital signs. She does not appear in any acute distress. Will check CT scan of the abdomen/pelvis to evaluate for kidney stone. Urinalysis being obtained. She is given a dose of IV Toradol for symptomatic treatment. Patient still having pain post Toradol so she is given a dose of morphine. This did give good relief. CT scan was positive for a 3 mm obstructing stone on the left side. Urine was showing signs of infection. No evidence of sepsis as she is not tachycardic and does not have a high white blood cell count. Kidney function is within normal limits. He did speak with the on-call urologist, Dr. Vidales. They felt because the patient is well-appearing with no abnormal vitals or significant abnormal lab that they can be discharged home with antibiotics. She is given a first dose of Rocephin here in the ED and a prescription for Keflex. Strict return precautions are reviewed with her including developing any systemic symptoms, inability keep down medications. She needs to follow-up with the urologist in the morning. She understands and is agreeable this plan. Discharged home in stable condition. All questions answered. ED Disposition - Plan for ED Patient: Disposition: Home or Assisted Living Diagnosis: Hydronephrosis with renal and ureteral calculus obstruction, UTI (urinary tract infection), Hypokalemia Instructions: ED Kidney Stone w/ Colic Prescriptions: Cephalexin [Keflex] 500 mg PO Q12 10 Days #20 capsule Transmission Status: Received by [address] Naproxen [Naprosyn] 500 mg PO BID PRN #20 tablet Transmission Status: Received by [address] Hydrocodone Bitart/Apap 5-325 [[place] 5MG-325MG] 1 tablet PO Q6H PRN PRN 3 Days #10 tab PRN Reason: Pain Transmission Status: Received by [address] Referrals: José Luis Motley MD [Primary Care Provider] - Donta Vidales MD [STAFF PHYSICIAN] - 2 Days
[2020-08-23] MEDS: Ketorolac 30 MG/ML Syringe IV (18:17)
[2020-08-23 18:39] LABS: Mucous, Urine 0 SEEN /hpf (<or=2+)
[2020-08-23 18:43] LABS: Color, Urine Yellow (Yellow); Glucose, Dipstick Normal (Normal); Ketone-Dipstick Negative (Negative); Leukocyte Esterase-Dipstick 500 /ul (Negative); Nitrite-Dipstick Negative (Negative); Occult Blood-Urine 150 /ul (Negative); Protein-Dipstick Negative (Negative); Specific Gravity, Urine 1.015 (1.002-1.030); Urine Bilirubin Dipstick Negative (Negative); Urine Clarity Clear (Clear); Urine Urobilinogen Normal (Normal)
[2020-08-23 18:54] LABS: Red Blood Cells-Urine 10-25 SEEN /hpf (0-5); Squamous Epithelial Cells - UA 0-5 SEEN /hpf (5-10); White Blood Cells >100 SEEN /hpf (0-5)
[2020-08-23 18:55] LABS: Bacteria 2+ /hpf (None Seen); Internal QC Validated? YES +Cl - CLEAR BKGD; Pregnancy, Urine Negative Negative
[2020-08-23] MEDS: Morphine 4 MG/ML Syringe IV (19:24)
[2020-08-23 19:25] VITALS: BP 172/99; PULSE 60; RESP 18; O2SAT 99
[2020-08-23 19:27] LABS: Absolute Lymphocyte Count 1.86 X10^3/uL (0.83-4.51); Basophil# 0.04 X10^3/uL; Basophil% 0.5 % (0-1); Eosinophil# 0.17 X10^3/uL; Eosinophils% 2.3 % (0-5); Hematocrit 41.6 % (37-47); Hemoglobin 13.3 g/dL (12.0-15.0); Lymphocyte # 1.86 X10^3/ul (4.0); Lymphocyte % 24.8 % (19-41); Mean Corpuscular Hgb 30.2 pg (27.0-32.0); Mean Corpuscular Volume 94.5 fL (81-99); Mean Platelet Vol. 9.9 fl (6.2-12.0); Monocyte# 0.46 X10^3/uL; Monocyte% 6.1 % (0-10); NRBC Flagged by Analyzer 0 % (0-5); Neutrophil # 4.96 X10^3/uL (2.7-7.7); Platelet Count 242 K/mm3 (150-450); RBC Distribution Width CV 13.9 % (11.6-14.6); RBC Distribution Width SD 48.1 fl (35.1-43.9); White Blood Count 7.5 K/mm3 (4.4-11.0)
[2020-08-23 19:37] LABS: Anion Gap 4 (5-15); BUN 10 mg/dL (7-18); BUN/Creat Ratio 14.6 RATIO (10-20); Calcium,Total 8.8 mg/dL (8.5-10.1); Chloride 107 mmol/L (98-107); Creatinine, Serum 0.68 mg/dL (0.55-1.02); EST Glomerular Filtration Rate 101 mL/min (>60); Est Glom Filt Rate - Afr Amer 123 mL/min (>60); Estimated Creatinine Clearance 95.91 ml/min; Glucose 91 mg/dL (74-106); Sodium Level 141 mmol/L (136-145)
[2020-08-23 20:22] VITALS: BP 172/92; PULSE 60; RESP 16; O2SAT 100
[2020-08-23] MEDS: Potassium Chloride Oral Tablet 20 MEQ 40 MEQ PO (20:31)
[2020-08-23] MEDS: Ceftriaxone 1 GM/50 ML BAG IV (20:31)
== END 2020-08-23 20:43 | disposition home or self-care (01) ==
PROVIDERS: Emergency Provider Emergency Medicine; PCP Family Medicine
DX: N13.2 Hydronephrosis with renal and ureteral calculous obstruction (principal); N39.0 Urinary tract infection, site not specified; E87.6 Hypokalemia; F17.200 Nicotine dependence, unspecified, uncomplicated; Z87.442 Personal history of urinary calculi; Z79.02 Long term (current) use of antithrombotics/antiplatelets
CPT/HCPCS: 74176; 80048; 81001; 81025; 85025; 96374; 96375; 99283; A4216

== ENCOUNTER 2020-09-11 11:57 | Emergency (ER) | payer MEDICAID, SELFPAY ==
[2020-09-11 11:58] VITALS: BP 130/86; PULSE 71; RESP 16; TEMP 36.2; O2SAT 100; BMI 26.4
--- NOTE | 2020-09-11 12:16 | ED.DCSUM_ITS ---
History of Present Illness Chief Complaint: Abd Pain Informant: Patient Narrative: 40-year-old female with history of short gut syndrome, kidney stones presenting with left-sided back and abdominal pain. She states that she was seen earlier this month for a left-sided kidney stone. She was put on antibiotics due to UTI as well. Patient states that she did improve. She did not follow-up with urology because they did not take her insurance at Dr. Vidales's office. She does state that she has found a urologist that she can follow-up with. She does not have an appointment yet. Today she is complaining of 3 days of left-sided abdominal pain and left-sided back pain. She states it was not abrupt in onset. Patient has short gut syndrome so she always has difficulty with diarrhea. She denies black or bloody stools. She states she has had the chills but has not had a fever. She has nausea without vomiting. She has been able to hold on fluids but states she has a decreased appetite over the last 2 days. She states that she is not having dysuria but sometimes she feels like it is difficult for her to void. She denies hematuria. 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 Past Medical History - Allergies and Home Meds Allergies/Adverse Reactions: Allergies adhesive Allergy (Verified 09/11/20 11:58) Itching amoxicillin [Amoxicillin] Allergy (Verified 09/11/20 11:58) Hives Penicillins Allergy (Verified 09/11/20 11:58) Hives Primary Care Physician: José Luis Motley MD [Primary Care Provider] - Prior records reviewed: Yes Past Medical History: - - Protein C&S deficiency, short gut syndrome, hypokalemia, hypomagnesemia, renal calculi, ovarian cysts Surgical History: - - Emergent laparotomy with subsequent small bowel resection and partial colonic resection, STEPS procedure, cholecystectomy, ventral hernia repair Smoking Status: Current every day smoker - Family History Maternal Family History: Family History (Last Reviewed 01/08/19 @ 11:17 by Marie Maher) Grandmother Diabetes Heart disease Mother Heart disease Grandfather Lung cancer Liver cancer Brain cancer Family History: Reports: Unknown Paternal Family History: Family History (Last Reviewed 01/08/19 @ 11:17 by Marie Maher) Grandmother Diabetes Heart disease Mother Heart disease Grandfather Lung cancer Liver cancer Brain cancer Family History: Reports: Cancer Review of Systems General: Reports: Chills. Denies: Fever, Malaise Eyes: Denies: Visual changes - bilaterally, Diplopia ENT: Denies: Rhinorrhea, Sore throat Cardiovascular: Denies: Chest pain, Palpitations Respiratory: Denies: Dyspnea, Cough, Dyspnea on exertion Gastrointestinal: Reports: Abdominal pain, Nausea. Denies: Vomiting, Constipation, Melena, Hematochezia Genitourinary: Reports: - - Difficulty voiding. Denies: Dysuria, Frequency Musculoskeletal: Denies: Back pain, Extremity Pain Skin: Denies: Rash, Wounds Neurological: Reports: Headache. Denies: Weakness, Parasthesia Psych: Denies: Depression, Anxiety Endocrine: Denies: Polyuria, Polydipsia Physical Exam Vital Signs/Narrative: Vital Signs Temp Pulse Resp BP Pulse Ox 09/11/20 11:58 97.1 F L 71 16 130/86 H 100 Inital Vital Signs reviewed: Yes General: Well nourished, No Acute Distress Head: Normocephalic, Atraumatic Eyes: Perrl, EOMI ENT: Moist mucous membranes, Sinus tenderness Cardiovascular: Regular rate Respiratory: No distress, CTA bilaterally Abdomen: Soft, Nondistended, Hyperactive bowel sounds, - - Left upper and lower quadrant tenderness to palpation. Back: CVA tenderness - Left-sided CVA tenderness. Negative for: Spinal tenderness Extremities: Nontender, No edema Skin: Normal color, No rash Neurological: Alert, Oriented x3, Cranial nerves II-XII grossly intact, Normal Strength, Normal Sensation Psychological: Normal affect, Normal Mood Diagnostic/Tx/Re-eval Clinical Impression(s) from Imaging Studies Abdomen/Pelvis CT 09/11/20 12:18 IMPRESSION: Findings are compatible with a severe colonic ileus, similar to prior studies which appears to be waxing and waning, however, much greater in distention when compared to the prior study August 23, 2020.. A follow-up contrast study is recommended for further evaluation. This could be a upper GI small bowel follow-through and/or potentially barium enema. There is postoperative change in the right upper quadrant and in the visualized colon. Anatomy is somewhat difficult to ascertain but it appears that there may be cecum in the left upper quadrant with distention. The IUD is in place the right-sided twice a day is low lying. Recommend TOURIST CAMP ATTENDANT consult when appropriate. Status post cholecystectomy Electronically Signed: Halie Silva MD at 14:53 EDT Tel , Service support , Laboratory Data 09/11/20 09/11/20 09/11/20 12:20 12:20 12:20 WBC 7.6 RBC 4.99 Hgb 15.0 Hct 47.5 H MCV 95.2 MCH 30.1 MCHC 31.6 L RDW Std Deviation 46.3 H RDW Coeff of Jim 13.2 Plt Count 295 MPV 9.4 Immature Gran % (Auto) 0.100 Neut % (Auto) 62.1 Lymph % (Auto) 29.7 Stevens % (Auto) 4.9 Eos % (Auto) 2.4 Baso % (Auto) 0.8 Absolute Neuts (auto) 4.7 Absolute Lymphs (auto) 2.26 Nucleated RBC % 0 PT 12.8 INR 1.0 Sodium 140 Potassium 3.2 L Chloride 104 Carbon Dioxide 32.0 Anion Gap 4 L BUN 10 Creatinine 0.76 Estim Creat Clear Calc 85.82 Est GFR (MDRD) Af Amer 109 Est GFR (MDRD) Non-Af 90 BUN/Creatinine Ratio 13.2 Glucose 92 Calcium 9.1 Magnesium 1.6 Total Bilirubin 0.50 AST 29 ALT 46 Alkaline Phosphatase 106 Total Protein 7.8 Albumin 3.7 Globulin 4.1 Albumin/Globulin Ratio 0.9 Lipase 82 Urine Color Urine Clarity Urine pH Ur Specific [place] Urine Protein Urine Glucose (UA) Urine Ketones Urine Occult Blood Urine Nitrite Urine Bilirubin Urine Urobilinogen Ur Leukocyte Esterase Urine RBC Urine WBC Ur Squamous Epith Cells Urine Bacteria Urine Mucus Urine Trichomonas Urine Test 09/11/20 12:40 WBC RBC Hgb Hct MCV MCH MCHC RDW Std Deviation RDW Coeff of Jim Plt Count MPV Immature Gran % (Auto) Neut % (Auto) Lymph % (Auto) Stevens % (Auto) Eos % (Auto) Baso % (Auto) Absolute Neuts (auto) Absolute Lymphs (auto) Nucleated RBC % PT INR Sodium Potassium Chloride Carbon Dioxide Anion Gap BUN Creatinine Estim Creat Clear Calc Est GFR (MDRD) Af Amer Est GFR (MDRD) Non-Af BUN/Creatinine Ratio Glucose Calcium Magnesium Total Bilirubin AST ALT Alkaline Phosphatase Total Protein Albumin Globulin Albumin/Globulin Ratio Lipase Urine Color Yellow Urine Clarity Sl. Cloudy Urine pH 6.0 Ur Specific [place] 1.020 Urine Protein 15 H Urine Glucose (UA) Normal Urine Ketones 5 H Urine Occult Blood 10 H Urine Nitrite Negative Urine Bilirubin Negative Urine Urobilinogen Normal Ur Leukocyte Esterase 500 H Urine RBC 0-5 SEEN Urine WBC 25-50 SEEN Ur Squamous Epith Cells 0-5 SEEN Urine Bacteria RARE Urine Mucus 0 SEEN Urine Trichomonas 0-5 SEEN Urine Test Negative - Medical Decision Making She presents with left-sided abdominal pain. Does not feel like previous kidney stones that he has. She has significant history of short gut syndrome and surgeries to repair her bowel. Patient initially given morphine and Zofran as well as IV fluids. Lab work shows no leukocytosis. Potassium is slightly low at 3.2. Magnesium is normal. Patient's urinalysis shows 500 leukocyte esterase, 10 occult blood, white blood cells 25-50 and rare bacteria. Patient also has trichomonas in her urine. I did go and talk to her about this and she states that she was recently in a new relationship within the last month. She thinks she might be having some small discharge that she did not initially state. She says that this is a been scant at best. She has no pelvic pain. Discussed with her that she would need antibiotics for this and she is concerned because she has history of C. difficile colitis. Patient ultimately decided to be treated for this. Given that she has short gut syndrome and difficulty absorbing medication I did give her 2 g IV metronidazole. Patient required another dose of morphine for pain. CT abdomen pelvis shows a chronic looking ileus. 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 This may explain some of her back pain. It also identifies some bulging disks that L4 and 5. Patient prefers to follow-up with her PCP and get referred to a [facility] physician regarding this back pain. She will follow-up with her previous surgeon for recommended small bowel follow-through by radiology. Her urinalysis is suspicious for possible infection but again she is concerned about taking too many antibiotics due to her C. difficile history. Given that the patient also has trichomonas this may be the source of her white blood cells and leukocyte esterase. Patient will be given a prescription for Keflex at home and I will send a urine culture. If this comes back positive then she will start antibiotics. Impression: 1. Abdominal pain 2. History of short gut syndrome 3. Trichomonas 4. Pars interarticularis fact L5 ED Disposition - Plan for ED Patient: Disposition: Home or Assisted Living Prescriptions: Cephalexin [Keflex] 500 mg PO Q12 #14 capsule Transmission Status: Pending to [address] Referrals: José Luis Motley MD [Primary Care Provider] - Additional Instructions: You were treated today for trichomonas. You should not need any more antibiotics for this. You are to follow-up with your government operations consultant regarding your IUD placement. As we discussed you can hold your antibiotics for UTI and to get the urine culture results back. You also have a pars interarticularis defect at L5 with bulging disks at L4 and L5. He should follow-up with your primary care physician for monitoring and referral as necessary.
--- NOTE | 2020-09-11 12:18 | CT_ITS ---
STUDY: CT ABDOMEN AND PELVIS WITH CONTRAST REASON FOR EXAM: Female, 40 years old. Abdominal pain left side -- IV PO Contrast RADIATION DOSAGE (If Supplied By Facility): CTDIvol = ( 19.35 ) mGy, DLP = ( 743.82 ) mGycm TECHNIQUE: Transaxial images were obtained from the dome of the diaphragm to the symphysis pubis without oral contrast. Oral and amp; IV Gastrografin and amp; 100mL Isovue-370 was administered. Sagittal and coronal images were reconstructed. Individualized dose optimization techniques were used for this CT. COMPARISON: CT abdomen and pelvis August 23, 2020, September 23, 2020, March 23, 2019 with IV contrast. FINDINGS: The visualized lung bases are unremarkable. The visualized portions of the heart are within normal limits. There is mild intra and extrahepatic ductal dilatation. There are surgical clips in the gallbladder fossa consistent with a prior cholecystectomy. Normal spleen. Normal pancreas. Normal bilateral adrenal glands. There is minimal right-sided pelviectasis. There is mild distention of the proximal right ureter likely due to mass effect from the deviated appearance of the uterus to the right side of the abdomen. There is no visualized stone, along the course of the right ureter for technique. Normal left kidney. There is a decompressed appearance of the stomach. There is postoperative change within the level of the proximal/third part of the duodenum. There are distended loops of small bowel. There is postoperative change in the right upper quadrant. Is a chronically varies distended appearing loop of bowel within the left and midline abdomen that measures up to 9.2 cm in caliber. This may represent an abnormal cecum. There is postoperative change which is seen within the bowel that is leading to this area. There is mild narrowing of the proximal aspect of this loop of bowel. There are air-fluid levels within the visualized distended colon. There is non-visualization of the appendix. Normal abdominal aorta. Normal inferior vena cava. There are varices within the left and midline abdomen. Bladder is distended. There is an IUD within the uterus. The right-sided AICD is slightly low-lying and not bordering the right side uterine fundus or lumen, similar to prior study. Normal abdominal wall. There is a pars interarticularis defect L5-S1 with a broad disc bulge L4-L5 with mild neural foramina narrowing. There is a broad disc bulge L5-S1 with minimal neural foramina narrowing. CT/Abdomen/Pelvis WITH Contrast IMPRESSION: Findings are compatible with a severe colonic ileus, similar to prior studies which appears to be waxing and waning, however, much greater in distention when compared to the prior study August 23, 2020.. A follow-up contrast study is recommended for further evaluation. This could be a upper GI small bowel follow-through and/or potentially barium enema. There is postoperative change in the right upper quadrant and in the visualized colon. Anatomy is somewhat difficult to ascertain but it appears that there may be cecum in the left upper quadrant with distention. The IUD is in place the right-sided twice a day is low lying. Recommend FROTHING MACHINE OPERATOR consult when appropriate. Status post cholecystectomy Electronically Signed: Halie Silva MD at 14:53 EDT Tel , Service support ,
[2020-09-11] MEDS: Ondansetron 4 MG/2 ML Vial IV (12:26)
[2020-09-11] MEDS: Morphine 4 MG/ML Syringe IV ×2 (12:26→13:40)
[2020-09-11] MEDS: 0.9% Normal Saline 1,000 ML 1000 ML IV (12:27)
[2020-09-11 12:34] LABS: Absolute Lymphocyte Count 2.26 X10^3/uL (0.83-4.51); Absolute Neutrophil Count 4.7 X10^3/uL (2.0-7.7); Basophil# 0.06 X10^3/uL; Basophil% 0.8 % (0-1); Eosinophil# 0.18 X10^3/uL; Eosinophils% 2.4 % (0-5); Hematocrit 47.5 % (37-47); Lymphocyte # 2.26 X10^3/ul (0.83-4.51); Lymphocyte % 29.7 % (19-41); Mean Corp Hgb Conc 31.6 g/dL (32-36); Mean Corpuscular Hgb 30.1 pg (27.0-32.0); Mean Corpuscular Volume 95.2 fL (81-99); Mean Platelet Vol. 9.4 fl (6.2-12.0); Monocyte# 0.37 X10^3/uL; Monocyte% 4.9 % (0-10); NRBC Flagged by Analyzer 0 % (0-5); Neutrophil # 4.74 X10^3/uL (2.7-7.7); Neutrophil % 62.1 % (47-70); Platelet Count 295 K/mm3 (150-450); RBC Distribution Width CV 13.2 % (11.6-14.6); RBC Distribution Width SD 46.3 fl (35.1-43.9); Red Blood Count 4.99 M/mm3 (4.2-5.4); White Blood Count 7.6 K/mm3 (4.4-11.0)
[2020-09-11 12:44] LABS: Mucous, Urine 0 SEEN /hpf (<or=2+)
[2020-09-11 12:46] LABS: ALB/GLOB Ratio 0.9 RATIO (0.9-2.4); AST(SGOT) 29 U/L (15-37); Alanine Aminotransfer ALT/SGPT 46 U/L (13-56); Albumin, Serum 3.7 g/dL (3.2-5.0); Alkaline Phosphatase 106 U/L (45-117); Anion Gap 4 (5-15); BUN 10 mg/dL (7-18); BUN/Creat Ratio 13.2 RATIO (10-20); Calcium,Total 9.1 mg/dL (8.5-10.1); Chloride 104 mmol/L (98-107); Creatinine, Serum 0.76 mg/dL (0.55-1.02); EST Glomerular Filtration Rate 90 mL/min (>60); Est Glom Filt Rate - Afr Amer 109 mL/min (>60); Estimated Creatinine Clearance 85.82 ml/min; Globulin 4.1 g/dL (2.2-4.2); Glucose 92 mg/dL (74-106); Lipase 82 U/L (73-393); Magnesium 1.6 mg/dL (1.6-2.6); Potassium 3.2 mmol/L (3.5-5.1); Protein, Total 7.8 g/dL (6.4-8.2); Sodium Level 140 mmol/L (136-145)
[2020-09-11 12:47] LABS: Color, Urine Yellow (Yellow); Glucose, Dipstick Normal (Normal); Ketone-Dipstick 5 mg/dl (Negative); Leukocyte Esterase-Dipstick 500 /ul (Negative); Nitrite-Dipstick Negative (Negative); Occult Blood-Urine 10 /ul (Negative); Protein-Dipstick 15 mg/dl (Negative); Urine Bilirubin Dipstick Negative (Negative); Urine Clarity Sl. Cloudy (Clear); Urine Urobilinogen Normal (Normal)
[2020-09-11 12:48] LABS: Prothrombin Time (Protime)PT. 12.8 SECONDS (11.7-14.9)
[2020-09-11 13:00] LABS: Bacteria RARE /hpf (None Seen); Red Blood Cells-Urine 0-5 SEEN /hpf (0-5); Squamous Epithelial Cells - UA 0-5 SEEN /hpf (5-10); White Blood Cells 25-50 SEEN /hpf (0-5)
[2020-09-11 13:01] LABS: Internal QC Validated? YES +Cl - CLEAR BKGD; Pregnancy, Urine Negative Negative; Trichomonas 0-5 SEEN /hpf (None Seen)
[2020-09-11 13:35] VITALS: BP 133/85; PULSE 61; RESP 14; O2SAT 100
[2020-09-11 15:03] VITALS: BP 163/92; PULSE 63; RESP 17; O2SAT 98
[2020-09-11 16:55] VITALS: BP 134/92; PULSE 60; RESP 14; O2SAT 98
== END 2020-09-11 16:56 | disposition home or self-care (01) ==
PROVIDERS: Emergency Provider Student in an Organized Health Care Education/Training Program; PCP Family Medicine
DX: R10.9 Unspecified abdominal pain (principal); K91.2 Postsurgical malabsorption, not elsewhere classified; A59.9 Trichomoniasis, unspecified; F17.200 Nicotine dependence, unspecified, uncomplicated; Z87.442 Personal history of urinary calculi
CPT/HCPCS: 74177; 80053; 81001; 81025; 83690; 83735; 85025; 85610; 87086; 96374; 96375; 96376; 99284; J7030; Q9967; A4216; J2405

== ENCOUNTER 2020-10-28 14:18 | Emergency (ER) | payer MEDICAID, SELFPAY ==
[2020-10-28 14:19] VITALS: BP 150/92; PULSE 63; RESP 18; TEMP 36.3; O2SAT 99; BMI 26.7
[2020-10-28 14:20] VITALS: BP 150/92; PULSE 63; RESP 18; TEMP 36.3; O2SAT 99
--- NOTE | 2020-10-28 16:05 | EKG12_ITS ---
Test Reason : CP Blood Pressure : / mmHG Vent. Rate : 056 BPM Atrial Rate : 056 BPM P-R Int : 138 ms QRS Dur : 088 ms QT Int : 420 ms P-R-T Axes : 022 023 050 degrees QTc Int : 405 ms Sinus bradycardia Otherwise normal ECG Confirmed by SHILPA RUIZ, SMITH ([id number]), purchase request editor SCOTT BOBO ([id number]) on 10/31/2020 1:36:55 PM Referred By: JASON/MARJAN Confirmed By:SMITH MASSEY MD
--- NOTE | 2020-10-28 16:06 | EDS_ITS ---
HPI History of Present Illness Chief Complaint: Chest Pain Informant: patient Onset/Context/Timing Onset: Today Activity at onset: gradual Timing: Waxes and wanes Quality: Positive for Pressure and Sharp Location: Left Chest Current Severity: Mild Maximum Severity: Moderate Narrative Narrative: for the past 2 days and chest pain today.Patient presents secondary to back pain Patient states she is had pain between her shoulder blades for the past couple of days. It does seem to be muscular and is worse with movement or palpation. Today pain radiated up to the left upper chest. Patient does have a blood clotting disorder with protein C&S deficiencies. She is normally on Lovenox but does admit to not taking it the last several days. [facility] Medical History (Updated 10/28/20 @ 17:[address] Lainey Toney MD) Blood clotting disorder Protein C deficiency Protein S deficiency Short gut syndrome Home Medications ergocalciferol (vitamin D2) 50,000 unit PO MOTUWETH 10/09/14 [History Last Taken 04/21/19] calcium carbonate 500 mg PO TIDCM 04/27/16 [History Last Taken 04/21/19] ljtjwxntpwol-Pl-gugq-minerals 3 tab PO DAILY 04/27/16 [History Last Taken 04/21/19] magnesium L-lactate 84 mg tablet,extended release 252 mg PO TID tab 01/24/18 [History Last Taken 04/21/19] enoxaparin 70 mg SUBCUT BID 09/03/18 [History Last Taken 04/20/19] potassium chloride 80 meq PO TID 03/03/19 [History Last Taken 04/21/19] cyclobenzaprine 10 mg PO BID PRN #10 tab 10/28/20 [Rx Last Taken Unknown] lidocaine [Lidoderm] 1 patch TOPICAL DAILY #8 ea 10/28/20 [Rx Last Taken Unknown] Allergy/AdvReac Type Severity Reaction Status Date / Time adhesive Allergy Itching Verified 10/28/20 14:21 amoxicillin [Amoxicillin] Allergy Hives Verified 10/28/20 14:21 Penicillins Allergy Hives Verified 10/28/20 14:21 Family History Grandmother Diabetes Heart disease Mother Heart disease Grandfather Lung cancer Liver cancer Brain cancer Surgical History History of removal of ovarian cyst Hx of cholecystectomy S/P hernia repair STEPS procedure Social History Smoking Status: Current every day smoker tobacco type: cigarettes alcohol intake: current alcohol intake frequency: holidays/special occasions only substance use type: does not use caffeine: Yes what type of physical activity do you participate in: none seatbelt use: always do you feel safe at home: Yes additional social history: - Lul Patient works with [id number] ROS ED Constitutional Constitutional ED: Denies chills or fever(s) Eyes Eyes: Denies change in vision ENT ENT ED: Denies sore throat Cardiovascular Cardiovascular: Reports chest pain Respiratory/Chest Respiratory/Chest: Reports dyspnea; Denies cough Gastrointestinal Gastrointestinal: Denies abdominal pain, diarrhea, nausea or vomiting Genitourinary Genitourinary ED: Denies dysuria Musculoskeletal Musculoskeletal: Reports back pain Integumentary Denies rash Neurologic Neurologic: Denies headache(s) or weakness Psychiatric Psychiatric: Denies anxiety or depression Endocrine Endocrinology: Denies polydipsia or polyuria Allergic/Immunologic Allergic/Immunologic ED: Denies urticaria EXAM Physical Exam Const Vital Signs: 10/28/20 14:19 10/28/20 14:20 10/28/20 16:05 Temperature 97.4 F L 97.4 F L Temperature Source Temporal Temporal Pulse Rate 63 63 Respiratory Rate 18 18 Respiratory Effort Blood Pressure 150/92 H 150/92 H Blood Pressure Mean 111 111 Pulse Ox 99 99 Oxygen Delivery Method Room Air Room Air Room Air 10/28/20 16:31 10/28/20 16:33 10/28/20 16:41 Temperature Temperature Source Pulse Rate 62 57 L Respiratory Rate 17 16 Respiratory Effort Normal Blood Pressure 151/94 H Blood Pressure Mean 113 Pulse Ox 98 98 Oxygen Delivery Method Room Air Room Air 10/28/20 17:05 Temperature Temperature Source Pulse Rate 64 Respiratory Rate 22 H Respiratory Effort Blood Pressure 162/101 H Blood Pressure Mean 121 Pulse Ox 98 Oxygen Delivery Method Room Air Positive well nourished and well developed General Appearance ED: well developed HEENT Reports normocephalic and head/scalp atraumatic Eyes PERRL and EOMs intact bilaterally Neck supple Chest Wall inspection of chest normal and palpation of chest normal Resp normal respiratory effort and clear to auscultation bilaterally Cardio regular rate and regular rhythm GI normal to inspection, nondistended, normoactive bowel sounds Palpation: soft Back/Spine Back/Spine Narrative: Parathoracic muscle tenderness to palpation. No overlying skin change. Extremity normal to inspection General Extremety ED: Negative for edema General Extremity: Negative for edema Neuro oriented x3 and no sensory deficits noted Sensorium / Orientation: alert Motor Exam: strength 5/5 throughout Psych mental status grossly normal Skin no rashes or lesions noted Heart Score History: Slightly/Non-Suspicious ECG: Normal Age: </= 45 years Risk Factors: No Risk Factors Troponin: </= Normal Limit Score: 0 MDM MDM MDM Narrative Medical decision making narrative: Patient had been given aspirin with EMS. EKG, chest x-ray, lab work is obtained. Lab Data Attestation: I reviewed the patient's lab results. Labs: Laboratory Results - last 24 hr 10/28/20 10/28/20 10/28/20 16:20 16:20 16:20 WBC 8.7 RBC 4.48 Hgb 13.4 Hct 41.2 MCV 92.0 MCH 29.9 MCHC 32.5 RDW Std Deviation 42.0 RDW Coeff of Jim 12.5 Plt Count 221 MPV 9.6 Immature Gran % (Auto) 0.200 Neut % (Auto) 67.8 Lymph % (Auto) 23.6 [place] % (Auto) 5.3 Eos % (Auto) 2.8 Baso % (Auto) 0.3 Absolute Neuts (auto) 5.9 Absolute Lymphs (auto) 2.05 Nucleated RBC % 0 D-Dimer Quant (PE/DVT) Sodium 141 Potassium 3.5 Chloride 108 H Carbon Dioxide 28.0 Anion Gap 5 BUN 9 Creatinine 0.67 Estim Creat Clear Calc 97.35 Est GFR (MDRD) Af Amer 125 Est GFR (MDRD) Non-Af 103 BUN/Creatinine Ratio 13.4 Glucose 85 Calcium 9.0 Troponin I < 0.015 Serum , Qual NEGATIVE 10/28/20 16:20 WBC RBC Hgb Hct MCV MCH MCHC RDW Std Deviation RDW Coeff of Jim Plt Count MPV Immature Gran % (Auto) Neut % (Auto) Lymph % (Auto) [place] % (Auto) Eos % (Auto) Baso % (Auto) Absolute Neuts (auto) Absolute Lymphs (auto) Nucleated RBC % D-Dimer Quant (PE/DVT) 0.29 Sodium Potassium Chloride Carbon Dioxide Anion Gap BUN Creatinine Estim Creat Clear Calc Est GFR (MDRD) Af Amer Est GFR (MDRD) Non-Af BUN/Creatinine Ratio Glucose Calcium Troponin I Serum , Qual Radiography Chest X-Ray - ED: 1 View, Read by ED Physician, Normal, Heart, Lungs and Mediastinum EKG Initial EKG: Attestation: I personally reviewed and interpreted this EKG as follows: Interpretation: Sinus Bradycardia (Sinus bradycardia 56 bpm. No acute ischemia.) Treatment and Re-Evaluation Comments:: On repeat evaluation patient is resting comfortably. Lab work and chest x-ray are unremarkable. EKG shows no sign of ischemia. Patient has reproducible upper back pain. I believe she has radicular pain wrapping around onto her chest. She will be given Flexeril and Lidoderm patches to help with this. She will continue anti-inflammatories at home. Discharge Plan Triage Chief Complaint: Chest Pain ED Provider: Lainey Toney Dx/Rx/DC Orders Clinical Impression: Chest pain, musculoskeletal Instructions: ED Chest Pain, Noncardiac Prescriptions: New cyclobenzaprine 10 mg tablet 10 mg PO BID PRN (Reason: muscle spasm) Qty: 10 RF: 0 lidocaine [Lidoderm] 5 % adhesive patch,medicated 1 patch topical DAILY Qty: 8 RF: 0 No Action magnesium L-lactate 84 mg tablet extended release 252 mg PO TID RF: 0 ergocalciferol (vitamin D2) 50,000 UNIT capsule 50,000 unit PO MOTUWETH RF: 0 calcium carbonate 500 MG tablet 500 mg PO TIDCM RF: 0 hendigyiissq-Eo-nyda-minerals 1 EACH tablet 3 tab PO DAILY RF: 0 enoxaparin 100 MG/ML syringe 70 mg subcut BID RF: 0 potassium chloride 20 MEQ tablet 80 meq PO TID RF: 0 Primary Care Provider: José Luis Motley Referrals: José Luis Motley MD [Primary Care Provider] - 1 Week if not improving Disposition Disposition: Home, self care
[2020-10-28] MEDS: Morphine 4 MG/ML Syringe IV (16:22)
[2020-10-28] MEDS: Ondansetron 4 MG/2 ML Vial IV (16:22)
[2020-10-28] MEDS: 0.9% Normal Saline 1,000 ML 150 ML IV (16:23)
[2020-10-28 16:31] VITALS: BP 151/94; PULSE 62; RESP 17; O2SAT 98
[2020-10-28 16:33] VITALS: PULSE 57; RESP 16; O2SAT 98
[2020-10-28 16:39] LABS: Absolute Lymphocyte Count 2.05 X10^3/uL (0.83-4.51); Absolute Neutrophil Count 5.9 X10^3/uL (2.0-7.7); Basophil# 0.03 X10^3/uL; Basophil% 0.3 % (0-1); Eosinophil# 0.24 X10^3/uL; Eosinophils% 2.8 % (0-5); Hematocrit 41.2 % (37-47); Hemoglobin 13.4 g/dL (12.0-15.0); Lymphocyte # 2.05 X10^3/ul (0.83-4.51); Lymphocyte % 23.6 % (19-41); Mean Corp Hgb Conc 32.5 g/dL (32-36); Mean Corpuscular Hgb 29.9 pg (27.0-32.0); Mean Platelet Vol. 9.6 fl (6.2-12.0); Monocyte# 0.46 X10^3/uL; Monocyte% 5.3 % (0-10); NRBC Flagged by Analyzer 0 % (0-5); Neutrophil # 5.89 X10^3/uL (2.7-7.7); Neutrophil % 67.8 % (47-70); Platelet Count 221 K/mm3 (150-450); RBC Distribution Width CV 12.5 % (11.6-14.6); Red Blood Count 4.48 M/mm3 (4.2-5.4); White Blood Count 8.7 K/mm3 (4.4-11.0)
[2020-10-28 16:45] LABS: D-Dimer Quantitative (DVT/PE) 0.29 FEU/ug/m (0.27-0.49)
[2020-10-28 16:52] LABS: Anion Gap 5 (5-15); BUN 9 mg/dL (7-18); BUN/Creat Ratio 13.4 RATIO (10-20); Chloride 108 mmol/L (98-107); Creatinine, Serum 0.67 mg/dL (0.55-1.02); EST Glomerular Filtration Rate 103 mL/min (>60); Est Glom Filt Rate - Afr Amer 125 mL/min (>60); Estimated Creatinine Clearance 97.35 ml/min; Glucose 85 mg/dL (74-106); Potassium 3.5 mmol/L (3.5-5.1); Sodium Level 141 mmol/L (136-145)
[2020-10-28 17:05] VITALS: BP 162/101; PULSE 64; RESP 22; O2SAT 98
[2020-10-28 17:20] LABS: Internal QC Validated? YES +Cl - CLEAR BKGD; Pregnancy, Serum, hCG Quali. NEGATIVE Negative
--- NOTE | 2020-10-28 17:25 | RAD_ITS ---
STUDY: X-RAY CHEST REASON FOR EXAM: Female, 40 years old. chest pain TECHNIQUE: Chest pain COMPARISON: None. FINDINGS: Cardiomediastinal silhouette is unremarkable. Costophrenic angles are sharp. Lungs are clear. The trachea is midline. There is no pneumothorax. Mild S-shaped scoliosis of the thoracic spine is noted. RAD/Chest 1 View (Portable) IMPRESSION: No acute cardiopulmonary process. Electronically Signed: Eric Hung MD at 18:17 EDT Tel , Service support ,
[2020-10-28 17:44] VITALS: BP 165/100; PULSE 64; RESP 16; O2SAT 98
== END 2020-10-28 17:45 | disposition home or self-care (01) ==
PROVIDERS: Emergency Provider Emergency Medicine; PCP Family Medicine
DX: R07.89 Other chest pain (principal); F17.210 Nicotine dependence, cigarettes, uncomplicated; Z79.899 Other long term (current) drug therapy
CPT/HCPCS: 71045; 80048; 84484; 84703; 85025; 85379; 93005; 96374; 96375; 99285; J7030; A4216; J2405

== ENCOUNTER 2021-03-12 12:22 | Emergency (ER) | payer MEDICAID, SELFPAY ==
[2021-03-12 12:24] VITALS: BP 147/102; PULSE 60; RESP 16; TEMP 36.3; O2SAT 99; BMI 27.4
--- NOTE | 2021-03-12 12:46 | VDLE_ITS ---
Reason For Study: pain Procedure LEFT This is a venous duplex using B-mode, color GSV is normal. flow and spectral Doppler. CFV is compressible, spontaneous, phasic, Exam performed portable in ED. competent, and demonstrates normal The exam was abbreviated due to the COVID 19 augmentation. protocol. FV is compressible, spontaneous, phasic, The exam was diagnostic. competent and demonstrates normal A preliminary report was called and/or faxed augmentation. to Dr. Montesinos. POP V is compressible, spontaneous, phasic, competent and demonstrates normal augmentation. T/P Trunk is compressible. PTV is compressible. LT PerV is compressible. VL/Venous Duplex US, Unilateral Interpretation Summary There is no evidence of left lower extremity deep vein thrombosis. Left great s aphenous vein appears patent and compressible segmentally. Abbreviated COVID-19 protocol utilized Ordering Physician: Nahum Montesinos Performed By: Jerrod Roberts RVT
--- NOTE | 2021-03-12 12:51 | ED.VIS.LOWEX ---
HPI History of Present Illness Chief Complaint: Lower Extremity Injury Detail of Chief Complaint: Left calf pain and bruising Informant: patient Narrative Narrative: Patient presents with left calf pain and bruising that she noticed a couple days ago. She denies any trauma. She denies any chest pain or shortness of breath. Patient is concerned about a blood clot because she has history of protein C and protein S deficiency and has been without her Lovenox for 2 to 3 months. Patient states that she is try to contact her primary care physician and the pharmacy has contacted them as well but no prescription has been called in as of yet. Patient denies fever or recent illness otherwise. She denies recent travel or surgery. [facility] Medical History (Updated 03/12/21 @ 13:[address] Nahum Montesinos, ) Blood clotting disorder Protein C deficiency Protein S deficiency Short gut syndrome Home Medications ergocalciferol (vitamin D2) 50,000 unit PO MOTUWETH 10/09/14 [History Last Taken 04/21/19] calcium carbonate 500 mg PO TIDCM 04/27/16 [History Last Taken 04/21/19] stbhpjiefbhh-Wk-gnil-minerals 3 tab PO DAILY 04/27/16 [History Last Taken 04/21/19] magnesium L-lactate 84 mg tablet,extended release 252 mg PO TID tab 01/24/18 [History Last Taken 04/21/19] enoxaparin 70 mg SUBCUT BID 09/03/18 [History Last Taken 04/20/19] potassium chloride 80 meq PO TID 03/03/19 [History Last Taken 04/21/19] cyclobenzaprine 10 mg PO BID PRN #10 tab 10/28/20 [Rx Last Taken Unknown] lidocaine [Lidoderm] 1 patch TOPICAL DAILY #8 ea 10/28/20 [Rx Last Taken Unknown] enoxaparin [Lovenox] 70 mg SUBCUT Q12H #28 ml 03/12/21 [Rx Last Taken Unknown] Allergy/AdvReac Type Severity Reaction Status Date / Time adhesive Allergy Itching Verified 03/12/21 12:23 amoxicillin [Amoxicillin] Allergy Hives Verified 03/12/21 12:23 Penicillins Allergy Hives Verified 03/12/21 12:23 Family History Grandmother Diabetes Heart disease Mother Heart disease Grandfather Lung cancer Liver cancer Brain cancer Surgical History History of removal of ovarian cyst Hx of cholecystectomy S/P hernia repair STEPS procedure Social History Smoking Status: Current every day smoker tobacco type: cigarettes alcohol intake: current alcohol intake frequency: holidays/special occasions only substance use type: does not use caffeine: Yes what type of physical activity do you participate in: none seatbelt use: always do you feel safe at home: Yes additional social history: - Lul Patient works with [employer] ROS ED Constitutional Constitutional ED: Reports systems reviewed and no addt'l complaints, except as documented; Denies body ache(s), change in weight or chills Eyes Eyes: Denies acute decrease in peripheral vision, change in vision, double vision or loss of vision ENT ENT ED: Reports none; Denies ear pain, lip swelling, loss taste/smell, neck pain, otalgia or sore throat Cardiovascular Cardiovascular: Reports none; Denies abdominal pain, chest pain with activity, leg edema, lightheadedness, palpitations, rapid heart rate or syncope Respiratory/Chest Respiratory/Chest: Reports none; Denies change in mental status, dry cough, dyspnea, hemoptysis, shortness of breath at rest or shortness of breath with exertion Gastrointestinal Gastrointestinal: Reports none; Denies abdominal pain, change in stool character, diarrhea, hematemesis, hematochezia, melena, rectal bleeding or vomiting Genitourinary Genitourinary ED: Reports none; Denies abdominal discomfort, anuria, dysuria, genital pain or polyuria Musculoskeletal Musculoskeletal: Reports none and other Details: Pain to left calf with ecchymosis and bruising ; Denies arthralgias, back pain, difficulty walking, extremity pain, muscle weakness or myalgias Integumentary Reports none; Denies abscess or rash Neurologic Neurologic: Reports none; Denies abnormal gait, confusion, focal weakness, frequent falls, headache(s), loss of vision, numbness, paresthesias, radicular pain, vertigo or weakness Psychiatric Psychiatric: Reports systems reviewed and no addt'l complaints, except as documented and none; Denies behavioral changes, confusion, difficulty concentrating, hallucinations, suicidal ideation, tactile hallucinations or visual hallucinations Endocrine Endocrinology: Denies none, cold intolerance, excessive sweating, fatigue or heat intolerance Hematologic/Lymphatic Hematologic/Lymphatic: Reports none; Denies anemia, easy bleeding or easy bruising Allergic/Immunologic Allergic/Immunologic ED: Denies as per HPI, none, lip swelling, mouth swelling, throat swelling, tongue swelling or hives EXAM Physical Exam Const Vital Signs: 03/12/21 12:24 Temperature 97.4 F L Temperature Source Temporal Pulse Rate 60 Respiratory Rate 16 Blood Pressure 147/102 H Blood Pressure Mean 117 Pulse Ox 99 Oxygen Delivery Method Room Air Positive well nourished and well developed General Appearance ED: well developed and NAD HEENT Reports TM's clear and moist mucous membranes normocephalic and atraumatic; Negative for trauma or tenderness Tympanic Membrane ED: Yes TM's clear Eyes PERRL and EOMs intact bilaterally General Eye ED: Negative for pale conjunctiva or scleral icterus Neck no lymphadenopathy, supple and no JVD General: Negative for tenderness Chest Wall inspection of chest normal and palpation of chest normal Chest: Negative for tenderness Resp normal respiratory effort and clear to auscultation bilaterally Effort and Inspection: Negative for respiratory distress or pain with movement Auscultation: Negative for rhonchi, wheezes or diminished lung sounds Cardio regular rate, regular rhythm, S1 normal heart sound, S2 normal heart sound and no murmurs Peripheral Pulses: pulses 2+ throughout GI normal to inspection, nondistended, normoactive bowel sounds, soft to palpation, non-tender, non-distended and no masses Back/Spine no CVA tenderness and no thoracic nor lumbar tenderness Extremity Extremity Narrative: Evaluation of the left calf does reveal some tenderness palpation over the proximal lateral aspect of the calf with an area of ecchymosis and bruising measuring approximately 4 cm in diameter. No ropes or cords palpated. No significant edema or cellulitis noted. General Extremety ED: Negative for edema General Extremity: Negative for edema Neuro oriented x3, CN's II-XII intact bilaterally, no sensory deficits noted and gait normal Sensorium / Orientation: awake, alert, oriented to person, oriented to place and oriented to time Motor Exam: strength 5/5 throughout and strength abnormal Psych mental status grossly normal Skin no rashes or lesions noted and no wounds MDM MDM MDM Narrative Medical decision making narrative: Venous duplex of left lower extremity was negative for DVT. Patient will be given a prescription for her Lovenox. Patient advised to return if worsening pain, increased swelling, chest pain, shortness of breath, or conditions worsen the way. Discharge Plan Triage Chief Complaint: Lower Extremity Injury ED Provider: Nahum Montesinos Dx/Rx/DC Orders Clinical Impression: Hematoma Instructions: Bruises (Contusions), ED Hematoma Prescriptions: New enoxaparin [Lovenox] 80 mg/0.8 mL syringe 70 mg subcut Q12H Qty: 28 RF: 0 No Action magnesium L-lactate 84 mg tablet extended release 252 mg PO TID RF: 0 ergocalciferol (vitamin D2) 50,000 UNIT capsule 50,000 unit PO MOTUWETH RF: 0 calcium carbonate 500 MG tablet 500 mg PO TIDCM RF: 0 cqgbjalhfkmg-Dw-krgv-minerals 1 EACH tablet 3 tab PO DAILY RF: 0 enoxaparin 100 MG/ML syringe 70 mg subcut BID RF: 0 potassium chloride 20 MEQ tablet 80 meq PO TID RF: 0 cyclobenzaprine 10 mg tablet 10 mg PO BID PRN (Reason: muscle spasm) Qty: 10 RF: 0 lidocaine [Lidoderm] 5 % adhesive patch,medicated 1 patch topical DAILY Qty: 8 RF: 0 Primary Care Provider: José Luis Motley Referrals: José Luis Motley MD [Primary Care Provider] - 3-5 Days Disposition Disposition: Home, Self Care
== END 2021-03-12 13:57 | disposition home or self-care (01) ==
PROVIDERS: Emergency Provider Emergency Medicine; PCP Family Medicine
DX: S80.12XA Contusion of left lower leg, 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 (principal); F17.210 Nicotine dependence, cigarettes, uncomplicated; X58.XXXA Exposure to other specified factors, 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
CPT/HCPCS: 93971; 99282

== ENCOUNTER 2021-04-16 08:06 | Emergency (ER) | payer MEDICAID, SELFPAY ==
[2021-04-16 08:08] VITALS: BP 157/107; PULSE 78; RESP 16; TEMP 35.8; O2SAT 97; BMI 29.2
--- NOTE | 2021-04-16 08:34 | CT_ITS ---
STUDY: CT ABDOMEN AND PELVIS WITH CONTRAST REASON FOR EXAM: Female, 41 years old. LLQ pain RADIATION DOSAGE (If Supplied By Facility): CTDIvol = ( 16.71 ) mGy, DLP = ( 793.12 ) mGycm TECHNIQUE: Transaxial images were obtained from the dome of the diaphragm to the symphysis pubis without oral contrast. IV 100mL Isovue-370 was administered. Sagittal and coronal images were reconstructed. Individualized dose optimization techniques were used for this CT. COMPARISON: 09/11/2020 FINDINGS: The visualized lung bases are unremarkable. The visualized portions of the heart are within normal limits. There is decreased attenuation of the liver consistent with steatosis. There are surgical clips in the gallbladder fossa consistent with a prior cholecystectomy. Normal spleen. Normal pancreas. Normal bilateral adrenal glands. Normal right kidney. Normal left kidney. Normal visualized stomach. Postoperative changes again noted along the third part of the duodenum, right upper cardiac and descending colon. There are fluid distended small and large bowel loops particularly in the sigmoid colon and rectum which are unchanged from the previous study. Findings suggest a chronically obstructed process. The appendix is not visualized. Normal abdominal aorta. Normal inferior vena cava. Normal retroperitoneum. Normal urinary bladder. The uterus contains an IUD Normal abdominal wall. Normal osseous structures. Disc bulges noted at L4-5 and L5-S1 CT/Abdomen/Pelvis W IV Cont ONLY IMPRESSION: Findings again are suggestive of a severe colonic ileus essentially unchanged from the previous study. There are persistent fluid distended loops of small and large bowel, particularly in the sigmoid colon and rectum. No free fluid or air to suspect anastomotic leak. Fatty liver, no discrete lesion IUD is again noted within the uterus, it again is noted to be low-lying and unchanged from the previous study. Stable disc pathology at L4-5 and L5-S1 Electronically Signed: Oleg Singleton MD at 9:35 EST , Service support ,
--- NOTE | 2021-04-16 08:35 | EDS_ITS ---
HPI HPI - GI History of Present Illness Chief Complaint: Abd Pain Informant: patient Narrative Narrative: Patient presents with left lower quadrant pain. It started a couple days ago. Its increased a bit and become more constant. Triage notes has nausea but she denied nausea vomiting to me. She states she is eating fine. Patient has diarrhea all the time because of short gut syndrome but it is not changed or different. No blood seen. She does have a little bit of urgency and frequency of urination but no dysuria. No change in color or odor. She is on her menstrual cycle right now. It is normal timing. However, her last ri nstrual cycle was abnormal and was really just intermittent spotting. No discharge. No back or flank pain. Nothing specifically makes her symptoms better or worse. Patient has had pains like this in the past. 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 She has had STEP procedures twice. She has also had ovarian cysts in the past. [facility] Medical History (Updated 04/16/21 @ 10:[address] Sukhdev Pennington MD) Blood clotting disorder Protein C deficiency Protein S deficiency Short gut syndrome Home Medications ergocalciferol (vitamin D2) 50,000 unit PO MOTUWETH 10/09/14 [History Last Taken 04/21/19] calcium carbonate 500 mg PO TIDCM 04/27/16 [History Last Taken 04/21/19] urxrqfshrstb-Dj-bbcz-minerals 3 tab PO DAILY 04/27/16 [History Last Taken 04/21/19] magnesium L-lactate 84 mg tablet,extended release 252 mg PO TID tab 01/24/18 [History Last Taken 04/21/19] enoxaparin 70 mg SUBCUT BID 09/03/18 [History Last Taken 04/20/19] potassium chloride 80 meq PO TID 03/03/19 [History Last Taken 04/21/19] cyclobenzaprine 10 mg PO BID PRN #10 tab 10/28/20 [Rx Last Taken Unknown] lidocaine [Lidoderm] 1 patch TOPICAL DAILY #8 ea 10/28/20 [Rx Last Taken Unknown] phenazopyridine [Pyridium] 200 mg PO TID #9 tab 04/16/21 [Rx Last Taken Unknown] sulfamethoxazole-trimethoprim [Bactrim DS] 1 tab PO BID #14 tab 04/16/21 [Rx Last Taken Unknown] Allergy/AdvReac Type Severity Reaction Status Date / Time adhesive Allergy Itching Verified 04/16/21 08:07 amoxicillin [Amoxicillin] Allergy Hives Verified 04/16/21 08:07 Penicillins Allergy Hives Verified 04/16/21 08:07 Family History Grandmother Diabetes Heart disease Mother Heart disease Grandfather Lung cancer Liver cancer Brain cancer Surgical History History of removal of ovarian cyst Hx of cholecystectomy S/P hernia repair STEPS procedure Social History Smoking Status: Current every day smoker tobacco type: cigarettes alcohol intake: current alcohol intake frequency: holidays/special occasions only substance use type: does not use caffeine: Yes what type of physical activity do you participate in: none seatbelt use: always do you feel safe at home: Yes additional social history: - Lul Patient works with [employer] ED Constitutional Constitutional ED: Denies chills or fever(s) ENT ENT ED: Denies rhinorrhea or sore throat Cardiovascular Cardiovascular: Denies chest pain Respiratory/Chest Respiratory/Chest: Denies cough or dyspnea Gastrointestinal Gastrointestinal: Reports abdominal pain and diarrhea; Denies constipation, melena, nausea or vomiting Genitourinary Genitourinary ED: Reports urinary frequency and other Details: See history of present illness. ; Denies dysuria or hematuria Musculoskeletal Musculoskeletal: Denies back pain Integumentary Denies rash Neurologic Neurologic: Denies headache(s) Endocrine Endocrinology: Denies polydipsia or polyuria Hematologic/Lymphatic Hematologic/Lymphatic: Reports easy bleeding and easy bruising Allergic/Immunologic Allergic/Immunologic ED: Denies urticaria EXAM Physical Exam Const Vital Signs: 04/16/21 08:08 Temperature 96.5 F L Temperature Source Temporal Pulse Rate 78 Respiratory Rate 16 Blood Pressure 157/107 H Blood Pressure Mean 123 Pulse Ox 97 Oxygen Delivery Method Room Air Positive well nourished and well developed General Appearance ED: well developed and NAD HEENT Reports moist mucous membranes Eyes General Eye ED: Negative for scleral icterus Neck no JVD Resp normal respiratory effort and clear to auscultation bilaterally Auscultation: Negative for rales, rhonchi or wheezes Cardio regular rate and regular rhythm GI non-distended GI Narrative: Abdomen has very minimal tenderness toward the left lower quadrant. No rebound no guarding and no mass felt. Her abdominal incisions are well-healed. There is some bruising from her Lovenox injections but not an abnormal amount. Auscultation: normoactive bowel sounds Palpation: soft Back/Spine no CVA tenderness Extremity full ROM General Extremety ED: Negative for tenderness Neuro Sensorium / Orientation: alert Psych mental status grossly normal Skin Skin Narrative: No rashes other than some injection site hematomas from Lovenox which are typical and of normal size. Lesions: no lesions Rashes: no rashes MDM MDM MDM Narrative Medical decision making narrative: Patient's blood work shows normal CBC hemoglobin and platelets. Electrolytes are normal other than minimal decrease of potassium that should be replaced with diet. is negative. Urine does show cloudy urine with leukocyte esterase and 10-25 white cells. Considering the patient does have urinary symptoms and this finding we will treat this as UTI. She has been successfully treated and tolerated Bactrim and Pyridium in the past so we will stick with this. Her CT scan shows a lot of chronic changes but no acute pathology. We discussed reasons to return. These would include pain, vomiting, fevers or other symptoms. Lab Data Attestation: I reviewed the patient's lab results. Labs: Laboratory Results - last 24 hr 04/16/21 04/16/21 04/16/21 08:25 08:25 08:25 WBC 8.2 RBC 4.38 Hgb 13.0 Hct 40.8 MCV 93.2 MCH 29.7 MCHC 31.9 L RDW Std Deviation 44.6 H RDW Coeff of Jim 13.1 Plt Count 273 MPV 9.2 Immature Gran % (Auto) 0.200 Neut % (Auto) 67.1 Lymph % (Auto) 24.8 [place] % (Auto) 5.7 Eos % (Auto) 1.8 Baso % (Auto) 0.4 Absolute Neuts (auto) 5.5 Absolute Lymphs (auto) 2.04 Nucleated RBC % 0 Sodium 140 Potassium 3.3 L Chloride 107 Carbon Dioxide 28.0 Anion Gap 5 BUN 7 Creatinine 0.58 Estim Creat Clear Calc 111.34 Est GFR (MDRD) Af Amer 148 Est GFR (MDRD) Non-Af 122 BUN/Creatinine Ratio 12.1 Glucose 86 Calcium 9.1 Serum , Qual NEGATIVE Urine Color Urine Clarity Urine pH Ur Specific [place] Urine Protein Urine Glucose (UA) Urine Ketones Urine Occult Blood Urine Nitrite Urine Bilirubin Urine Urobilinogen Ur Leukocyte Esterase Urine RBC Urine WBC Ur Squamous Epith Cells Urine Bacteria Urine Mucus 04/16/21 08:25 WBC RBC Hgb Hct MCV MCH MCHC RDW Std Deviation RDW Coeff of Jim Plt Count MPV Immature Gran % (Auto) Neut % (Auto) Lymph % (Auto) [place] % (Auto) Eos % (Auto) Baso % (Auto) Absolute Neuts (auto) Absolute Lymphs (auto) Nucleated RBC % Sodium Potassium Chloride Carbon Dioxide Anion Gap BUN Creatinine Estim Creat Clear Calc Est GFR (MDRD) Af Amer Est GFR (MDRD) Non-Af BUN/Creatinine Ratio Glucose Calcium Serum , Qual Urine Color Yellow Urine Clarity Sl. Cloudy Urine pH 6.0 Ur Specific [place] 1.015 Urine Protein 15 H Urine Glucose (UA) Normal Urine Ketones Negative Urine Occult Blood 250 H Urine Nitrite Negative Urine Bilirubin Negative Urine Urobilinogen Normal Ur Leukocyte Esterase 100 H Urine RBC 0-5 SEEN Urine WBC 10-25 SEEN Ur Squamous Epith Cells 0 SEEN Urine Bacteria 0 SEEN Urine Mucus 0 SEEN Radiography Diagnostic Testing: Clinical Impression(s) from Imaging Studies Abdomen/Pelvis CT 04/16/21 08:34 IMPRESSION: Findings again are suggestive of a severe colonic ileus essentially unchanged from the previous study. There are persistent fluid distended loops of small and large bowel, particularly in the sigmoid colon and rectum. No free fluid or air to suspect anastomotic leak. Fatty liver, no discrete lesion IUD is again noted within the uterus, it again is noted to be low-lying and unchanged from the previous study. Stable disc pathology at L4-5 and L5-S1 Electronically Signed: Oleg Singleton MD at 9:35 EST , Service support , Discharge Plan Triage Chief Complaint: Abd Pain ED Provider: Sukhdev Pennington Dx/Rx/DC Orders Clinical Impression: Hypokalemia, UTI (urinary tract infection) Instructions: ED CYSTITIS Female Adult Prescriptions: New sulfamethoxazole-trimethoprim [Bactrim DS] 800-160 mg tablet 1 tab PO BID Qty: 14 RF: 0 phenazopyridine [Pyridium] 200 mg tablet 200 mg PO TID Qty: 9 RF: 0 No Action magnesium L-lactate 84 mg tablet extended release 252 mg PO TID RF: 0 ergocalciferol (vitamin D2) 50,000 UNIT capsule 50,000 unit PO MOTUWETH RF: 0 calcium carbonate 500 MG tablet 500 mg PO TIDCM RF: 0 xjswahkbaqbp-Yy-esea-minerals 1 EACH tablet 3 tab PO DAILY RF: 0 enoxaparin 100 MG/ML syringe 70 mg subcut BID RF: 0 potassium chloride 20 MEQ tablet 80 meq PO TID RF: 0 cyclobenzaprine 10 mg tablet 10 mg PO BID PRN (Reason: muscle spasm) Qty: 10 RF: 0 lidocaine [Lidoderm] 5 % adhesive patch,medicated 1 patch topical DAILY Qty: 8 RF: 0 Primary Care Provider: José Luis Motley Referrals: José Luis Motley MD [Primary Care Provider] - 3-5 Days if not improving Disposition Disposition: Home, Self Care
[2021-04-16 08:40] LABS: Bacteria 0 SEEN /hpf (None Seen); Mucous, Urine 0 SEEN /hpf (<or=2+); Squamous Epithelial Cells - UA 0 SEEN /hpf (5-10)
[2021-04-16 08:41] LABS: Absolute Lymphocyte Count 2.04 X10^3/uL (0.83-4.51); Absolute Neutrophil Count 5.5 X10^3/uL (2.0-7.7); Basophil# 0.03 X10^3/uL; Basophil% 0.4 % (0-1); Eosinophil# 0.15 X10^3/uL; Eosinophils% 1.8 % (0-5); Hematocrit 40.8 % (37-47); Lymphocyte # 2.04 X10^3/ul (0.83-4.51); Lymphocyte % 24.8 % (19-41); Mean Corp Hgb Conc 31.9 g/dL (32-36); Mean Corpuscular Hgb 29.7 pg (27.0-32.0); Mean Corpuscular Volume 93.2 fL (81-99); Mean Platelet Vol. 9.2 fl (6.2-12.0); Monocyte# 0.47 X10^3/uL; Monocyte% 5.7 % (0-10); NRBC Flagged by Analyzer 0 % (0-5); Neutrophil # 5.51 X10^3/uL (2.7-7.7); Neutrophil % 67.1 % (47-70); Platelet Count 273 K/mm3 (150-450); RBC Distribution Width CV 13.1 % (11.6-14.6); RBC Distribution Width SD 44.6 fl (35.1-43.9); Red Blood Count 4.38 M/mm3 (4.2-5.4); White Blood Count 8.2 K/mm3 (4.4-11.0)
[2021-04-16 08:43] LABS: Color, Urine Yellow (Yellow); Glucose, Dipstick Normal (Normal); Ketone-Dipstick Negative (Negative); Leukocyte Esterase-Dipstick 100 /ul (Negative); Nitrite-Dipstick Negative (Negative); Occult Blood-Urine 250 /ul (Negative); Protein-Dipstick 15 mg/dl (Negative); Specific Gravity, Urine 1.015 (1.002-1.030); Urine Bilirubin Dipstick Negative (Negative); Urine Clarity Sl. Cloudy (Clear); Urine Urobilinogen Normal (Normal)
[2021-04-16 08:48] LABS: Red Blood Cells-Urine 0-5 SEEN /hpf (0-5); White Blood Cells 10-25 SEEN /hpf (0-5)
[2021-04-16] MEDS: Morphine 4 MG/ML Syringe IV (08:48)
[2021-04-16] MEDS: Ondansetron 4 MG/2 ML Vial IV (08:48)
[2021-04-16 08:53] LABS: Anion Gap 5 (5-15); BUN 7 mg/dL (7-18); BUN/Creat Ratio 12.1 RATIO (10-20); Calcium,Total 9.1 mg/dL (8.5-10.1); Chloride 107 mmol/L (98-107); Creatinine, Serum 0.58 mg/dL (0.55-1.02); EST Glomerular Filtration Rate 122 mL/min (>60); Est Glom Filt Rate - Afr Amer 148 mL/min (>60); Estimated Creatinine Clearance 111.34 ml/min; Glucose 86 mg/dL (74-106); Potassium 3.3 mmol/L (3.5-5.1); Sodium Level 140 mmol/L (136-145)
[2021-04-16 08:59] LABS: Internal QC Validated? YES +Cl - CLEAR BKGD; Pregnancy, Serum, hCG Quali. NEGATIVE Negative
[2021-04-16 10:49] VITALS: BP 129/74; PULSE 741; RESP 16; O2SAT 98
== END 2021-04-16 10:49 | disposition home or self-care (01) ==
PROVIDERS: Emergency Provider Emergency Medicine; PCP Family Medicine
DX: E87.6 Hypokalemia (principal); N39.0 Urinary tract infection, site not specified; F17.210 Nicotine dependence, cigarettes, uncomplicated; Z79.899 Other long term (current) drug therapy
CPT/HCPCS: 74177; 80048; 81001; 84703; 85025; 96374; 96375; 99283; J7040; Q9967; A4216; J2405

== ENCOUNTER 2021-04-25 10:34 | Emergency (ER) | payer MEDICAID, SELFPAY ==
[2021-04-25 10:34] VITALS: BP 139/88; PULSE 60; RESP 17; TEMP 36.2; O2SAT 97; BMI 27.4
--- NOTE | 2021-04-25 11:16 | CT_ITS ---
STUDY: CT ABDOMEN AND PELVIS WITHOUT CONTRAST REASON FOR EXAM: Female, 41 years old. flank pain RADIATION DOSAGE (If Supplied By Facility): CTDIvol = ( 9.68 ) mGy, DLP = ( 478.99 ) mGycm TECHNIQUE: Transaxial images were obtained from the dome of the diaphragm to the symphysis pubis without oral contrast, and without intravenous contrast. Sagittal and coronal images were reconstructed. Individualized dose optimization techniques were used for this CT. COMPARISON: 04/16/2021 FINDINGS: The visualized lung bases are unremarkable. The visualized portions of the heart are within normal limits. There is decreased attenuation of the liver consistent with steatosis. There are surgical clips in the gallbladder fossa consistent with a prior cholecystectomy. Normal spleen. Normal pancreas. Normal bilateral adrenal glands. At least 2 calculi in the left kidney. Mild left hydronephrosis with a 4.9 mm calculus of the left UPJ, new since prior CT. Right kidney is unremarkable. Normal visualized stomach. Fluid and gaseous distention of bowel with multiple surgical anastomoses are redemonstrated. Nondilated colon. The appendix is visualized and appears normal. There is diffuse atherosclerotic calcification of the abdominal aorta, without a demonstrated aneurysm. Normal inferior vena cava. Normal retroperitoneum. Normal urinary bladder. IUD within the uterus. Normal abdominal wall. Bilateral L5 spondylolysis without significant spondylolisthesis. CT/Abdomen/Pelvis without Cont IMPRESSION: 1. 4.9 mm left UPJ calculus with mild hydronephrosis. 2. Stable chronic changes, as above. Electronically Signed: Jak Schulte MD ([place]) at 16:07 EST , Service support ,
--- NOTE | 2021-04-25 11:25 | ED.VIS.FEGU ---
HPI HPI - Female History of Present Illness Chief Complaint: Complaint Narrative Narrative: Patient presenting for evaluation due to concern for possible urinary tract infection and pyelonephritis. Patient reports that she was in the emergency department earlier last week, and was having pelvic complaints. She reports she was having pelvic pain had a work-up that was indicative of having a urinary tract infection she was sent home with Bactrim and Pyridium. Patient states that over the course of the last day or so however she has developed left-sided flank pain that is waxing and waning as well as feelings of generalized illness, chills, fever, nausea without vomiting. Patient states that she still has dysuria. She has been taking her prescriptions as prescribed. Patient reports that she has a underlying history of short gut syndrome. She reports that she has had decreased appetite as well as p.o. fluid intake, she does report that she is still urinating. Patient also has an underlying history of kidney stones, states that this pain could potentially be consistent with that. No exacerbating relieving factors. Review of systems otherwise negative. [facility] Medical History (Updated 04/25/21 @ 13:[address] Gus Mcfadden MD) Blood clotting disorder Protein C deficiency Protein S deficiency Short gut syndrome Home Medications ergocalciferol (vitamin D2) 50,000 unit PO MOTUWETH 10/09/14 [History Last Taken 04/21/19] calcium carbonate 500 mg PO TIDCM 04/27/16 [History Last Taken 04/21/19] iiemukpowiud-Re-tfxx-minerals 3 tab PO DAILY 04/27/16 [History Last Taken 04/21/19] magnesium L-lactate 84 mg tablet,extended release 252 mg PO TID tab 01/24/18 [History Last Taken 04/21/19] enoxaparin 70 mg SUBCUT BID 09/03/18 [History Last Taken 04/20/19] potassium chloride 80 meq PO TID 03/03/19 [History Last Taken 04/21/19] cyclobenzaprine 10 mg PO BID PRN #10 tab 10/28/20 [Rx Last Taken Unknown] lidocaine [Lidoderm] 1 patch TOPICAL DAILY #8 ea 10/28/20 [Rx Last Taken Unknown] phenazopyridine [Pyridium] 200 mg PO TID #9 tab 04/16/21 [Rx Last Taken Unknown] sulfamethoxazole-trimethoprim [Bactrim DS] 1 tab PO BID #14 tab 04/16/21 [Rx Last Taken Unknown] oxycodone-acetaminophen [Percocet] 1 tab PO Q6H PRN 3 Days #12 tab 04/25/21 [Rx Last Taken Unknown] sulfamethoxazole-trimethoprim [Bactrim DS] 1 tab PO BID #14 tab 04/25/21 [Rx Last Taken Unknown] tamsulosin [Flomax] 0.4 mg PO DAILY #7 cap 04/25/21 [Rx Last Taken Unknown] Allergy/AdvReac Type Severity Reaction Status Date / Time adhesive Allergy Itching Verified 04/25/21 10:34 amoxicillin [Amoxicillin] Allergy Hives Verified 04/25/21 10:34 Penicillins Allergy Hives Verified 04/25/21 10:34 Family History Grandmother Diabetes Heart disease Mother Heart disease Grandfather Lung cancer Liver cancer Brain cancer Surgical History History of removal of ovarian cyst Hx of cholecystectomy S/P hernia repair STEPS procedure Social History Smoking Status: Current every day smoker tobacco type: cigarettes alcohol intake: current alcohol intake frequency: holidays/special occasions only substance use type: does not use caffeine: Yes what type of physical activity do you participate in: none seatbelt use: always do you feel safe at home: Yes additional social history: - Lul Patient works with [employer] [facility] ED Constitutional Constitutional ED: Reports chills and fever(s) ENT ENT ED: Denies sore throat Cardiovascular Cardiovascular: Denies chest pain Respiratory/Chest Respiratory/Chest: Denies cough or dyspnea Gastrointestinal Gastrointestinal: Reports nausea Genitourinary Genitourinary ED: Reports dysuria and other Details: Flank pain Musculoskeletal Musculoskeletal: Denies myalgias Integumentary Denies rash Neurologic Neurologic: Denies paresthesias or weakness Psychiatric Psychiatric: Denies depression Endocrine Endocrinology: Denies polyuria Hematologic/Lymphatic Hematologic/Lymphatic: Denies easy bleeding or easy bruising Allergic/Immunologic Allergic/Immunologic ED: Denies urticaria EXAM Physical Exam Const Vital Signs: 04/25/21 10:34 Temperature 97.1 F L Temperature Source Temporal Pulse Rate 60 Respiratory Rate 17 Blood Pressure 139/88 H Blood Pressure Mean 105 Pulse Ox 97 Oxygen Delivery Method Room Air Positive well nourished and well developed General Appearance ED: well developed and NAD HEENT normocephalic and atraumatic Eyes EOMs intact bilaterally General Eye ED: Negative for pale conjunctiva or scleral icterus Neck no lymphadenopathy and supple Resp normal respiratory effort and clear to auscultation bilaterally Cardio regular rate, regular rhythm, no murmurs and peripheral pulses 2+ throughout GI non-distended and no masses GI Narrative: Minimal left lower quadrant tenderness palpation no guarding or rebound no evidence of overlying vesicular rash no palpable masses. Palpation: soft; Negative for guarding, rigid or rebound tenderness present Back/Spine no CVA tenderness Extremity full ROM General Extremety ED: Negative for edema General Extremity: Negative for edema Neuro moves all extremities and no sensory deficits noted Sensorium / Orientation: alert, oriented to person, oriented to place and oriented to time Motor Exam: strength 5/5 throughout Psych mental status grossly normal Skin Rashes: no rashes MDM MDM MDM Narrative Medical decision making narrative: Patient presented secondary to flank pain. Patient has an underlying history of short gut syndrome and has had some clinical worsening since she was initiated on treatment for urinary tract infection. IV was established laboratory studies were obtained patient was given fluids Zofran and Toradol she had some continued pain and did require treatment with oxycodone. CBC was unremarkable, no significant leukocytosis. Patient's chemistry does not show renal insufficiency or electrolyte derangement. Patient is still nitrite positive, but has a predominance of red cells and only +1 bacteria which is better than her previous urinalysis. Patient had a CT performed which shows a 3 mm stone proximately. Patient's pain was improved on repeat evaluation. At this point I believe the patient is still appropriate for outpatient management of this kidney stone. Should be given Flomax, Percocet, and I will extend her course of Bactrim. Patient was educated on signs symptoms which to return. Patient will follow up with urology. Patient was discharged in improved condition. Lab Data Labs: Laboratory Results - last 24 hr 04/25/21 04/25/21 04/25/21 12:10 12:25 12:25 WBC 6.7 RBC 4.22 Hgb 12.6 Hct 39.1 MCV 92.7 MCH 29.9 MCHC 32.2 RDW Std Deviation 44.7 H RDW Coeff of Jim 13.2 Plt Count 259 MPV 9.2 Immature Gran % (Auto) 0.200 Neut % (Auto) 65.2 Lymph % (Auto) 26.2 [place] % (Auto) 5.9 Eos % (Auto) 2.0 Baso % (Auto) 0.5 Absolute Neuts (auto) 4.4 Absolute Lymphs (auto) 1.74 Nucleated RBC % 0 Sodium 142 Potassium 4.4 Chloride 107 Carbon Dioxide 31.0 Anion Gap 4 L BUN 9 Creatinine 0.70 Estim Creat Clear Calc 92.25 Est GFR (MDRD) Af Amer 118 Est GFR (MDRD) Non-Af 98 BUN/Creatinine Ratio 12.8 Glucose 87 Calcium 9.0 Urine Color Tiffany Urine Clarity Sl. Cloudy Urine pH 6.0 Ur Specific [place] 1.020 Urine Protein 30 H Urine Glucose (UA) Normal Urine Ketones Negative Urine Occult Blood 250 H Urine Nitrite Positive H Urine Bilirubin 3 H Urine Urobilinogen 8 H Ur Leukocyte Esterase 25 H Urine RBC 25-50 SEEN Urine WBC 0-5 SEEN Ur Squamous Epith Cells 0-5 SEEN Urine Bacteria 1+ Urine Mucus 0 SEEN Discharge Plan Triage Chief Complaint: Complaint ED Provider: Gus Mcfadden Dx/Rx/DC Orders Clinical Impression: Urolithiasis, UTI (urinary tract infection) Instructions: ED Kidney Stone w/ Colic Prescriptions: New sulfamethoxazole-trimethoprim [Bactrim DS] 800-160 mg tablet 1 tab PO BID Qty: 14 RF: 0 oxycodone-acetaminophen [Percocet] 5-325 mg tablet 1 tab PO Q6H PRN (Reason: pain) 3 Days Qty: 12 RF: 0 tamsulosin [Flomax] 0.4 mg capsule 0.4 mg PO DAILY Qty: 7 RF: 0 No Action magnesium L-lactate 84 mg tablet extended release 252 mg PO TID RF: 0 ergocalciferol (vitamin D2) 50,000 UNIT capsule 50,000 unit PO MOTUWETH RF: 0 calcium carbonate 500 MG tablet 500 mg PO TIDCM RF: 0 thksowqzebql-Af-xdsh-minerals 1 EACH tablet 3 tab PO DAILY RF: 0 enoxaparin 100 MG/ML syringe 70 mg subcut BID RF: 0 potassium chloride 20 MEQ tablet 80 meq PO TID RF: 0 cyclobenzaprine 10 mg tablet 10 mg PO BID PRN (Reason: muscle spasm) Qty: 10 RF: 0 lidocaine [Lidoderm] 5 % adhesive patch,medicated 1 patch topical DAILY Qty: 8 RF: 0 sulfamethoxazole-trimethoprim [Bactrim DS] 800-160 mg tablet 1 tab PO BID Qty: 14 RF: 0 phenazopyridine [Pyridium] 200 mg tablet 200 mg PO TID Qty: 9 RF: 0 Primary Care Provider: José Luis Motley Referrals: Shayla Hudson MD [STAFF PHYSICIAN] - 5-7 Days José Luis Motley MD [Primary Care Provider] - Disposition Disposition: Home, Self Care
[2021-04-25 12:22] LABS: Mucous, Urine 0 SEEN /hpf (<or=2+)
[2021-04-25 12:29] LABS: Color, Urine Amber (Yellow); Glucose, Dipstick Normal (Normal); Ketone-Dipstick Negative (Negative); Leukocyte Esterase-Dipstick 25 /ul (Negative); Nitrite-Dipstick Positive (Negative); Occult Blood-Urine 250 /ul (Negative); Protein-Dipstick 30 mg/dl (Negative); Urine Clarity Sl. Cloudy (Clear); Urine Urobilinogen 8 mg/dl (Normal)
[2021-04-25 12:31] LABS: Urine Bilirubin Dipstick 3 mg/dL (Negative)
[2021-04-25 12:33] LABS: Absolute Lymphocyte Count 1.74 X10^3/uL (0.83-4.51); Absolute Neutrophil Count 4.4 X10^3/uL (2.0-7.7); Basophil# 0.03 X10^3/uL; Basophil% 0.5 % (0-1); Eosinophil# 0.13 X10^3/uL; Hematocrit 39.1 % (37-47); Hemoglobin 12.6 g/dL (12.0-15.0); Lymphocyte # 1.74 X10^3/ul (0.83-4.51); Lymphocyte % 26.2 % (19-41); Mean Corp Hgb Conc 32.2 g/dL (32-36); Mean Corpuscular Hgb 29.9 pg (27.0-32.0); Mean Corpuscular Volume 92.7 fL (81-99); Mean Platelet Vol. 9.2 fl (6.2-12.0); Monocyte# 0.39 X10^3/uL; Monocyte% 5.9 % (0-10); NRBC Flagged by Analyzer 0 % (0-5); Neutrophil # 4.35 X10^3/uL (2.7-7.7); Neutrophil % 65.2 % (47-70); Platelet Count 259 K/mm3 (150-450); RBC Distribution Width CV 13.2 % (11.6-14.6); RBC Distribution Width SD 44.7 fl (35.1-43.9); Red Blood Count 4.22 M/mm3 (4.2-5.4); White Blood Count 6.7 K/mm3 (4.4-11.0)
[2021-04-25] MEDS: Ketorolac 15 MG/ML Vial IV (12:37)
[2021-04-25] MEDS: Ondansetron 4 MG/2 ML Vial IV (12:37)
[2021-04-25 12:38] LABS: Red Blood Cells-Urine 25-50 SEEN /hpf (0-5)
[2021-04-25] MEDS: 0.9% Normal Saline 1,000 ML 1000 ML IV (12:38)
[2021-04-25 12:39] LABS: Bacteria 1+ /hpf (None Seen); Squamous Epithelial Cells - UA 0-5 SEEN /hpf (5-10); White Blood Cells 0-5 SEEN /hpf (0-5)
[2021-04-25 12:47] LABS: Anion Gap 4 (5-15); BUN 9 mg/dL (7-18); BUN/Creat Ratio 12.8 RATIO (10-20); Chloride 107 mmol/L (98-107); EST Glomerular Filtration Rate 98 mL/min (>60); Est Glom Filt Rate - Afr Amer 118 mL/min (>60); Estimated Creatinine Clearance 92.25 ml/min; Glucose 87 mg/dL (74-106); Potassium 4.4 mmol/L (3.5-5.1); Sodium Level 142 mmol/L (136-145)
[2021-04-25] MEDS: oxyCODONE 5 MG Tablet PO (13:34)
[2021-04-25 14:10] VITALS: BP 151/79; PULSE 64; RESP 16; O2SAT 99
== END 2021-04-25 14:11 | disposition home or self-care (01) ==
PROVIDERS: Emergency Provider Emergency Medicine; PCP Family Medicine
DX: N20.9 Urinary calculus, unspecified (principal); N39.0 Urinary tract infection, site not specified; F17.210 Nicotine dependence, cigarettes, uncomplicated; K91.2 Postsurgical malabsorption, not elsewhere classified; Z87.442 Personal history of urinary calculi
CPT/HCPCS: 74176; 80048; 81001; 85025; 87086; 96374; 96375; 99284; J7030; A4216; J2405

== ENCOUNTER 2021-05-01 17:40 | Emergency (ER) | payer MEDICAID, SELFPAY ==
[2021-05-01 17:42] VITALS: BP 140/89; PULSE 89; RESP 18; TEMP 36.2; O2SAT 99; BMI 27.4
[2021-05-01 20:49] LABS: Bacteria 0 SEEN /hpf (None Seen); Mucous, Urine 0 SEEN /hpf (<or=2+)
[2021-05-01 20:58] LABS: Color, Urine Yellow (Yellow); Glucose, Dipstick Normal (Normal); Ketone-Dipstick Negative (Negative); Leukocyte Esterase-Dipstick 100 /ul (Negative); Nitrite-Dipstick Negative (Negative); Occult Blood-Urine 50 /ul (Negative); Protein-Dipstick 30 mg/dl (Negative); Specific Gravity, Urine 1.025 (1.002-1.030); Urine Bilirubin Dipstick Negative (Negative); Urine Clarity Clear (Clear); Urine Urobilinogen Normal (Normal)
--- NOTE | 2021-05-01 20:58 | EX.ED.DYSGE1 ---
HPI History of Present Illness Chief Complaint: Complaint Detail of Chief Complaint: Suprapubic discomfort and frequency. Onset/Context/Timing Onset: Today Context: Sudden Onset Timing: Continuous Quality: Pain Location: Suprapubic Current Severity: Mild Worsened by: Nothing Relieved by: Nothing Associated Symptoms Associated Symptoms: Frequency Narrative Narrative: Patient is a 41-year-old woman who was seen approximate 1 week ago and diagnosed with ureteral stone. She was referred to Dr. Vidales. She states she was not seen by him since he is not on her insurance plan. She denies vaginal bleeding. She does have history of ureteral lithiasis and urinary tract infection. She denies fever, chills night sweats. She denies flank plain. There is no history of trauma. Prior similar symptoms: Yes Recent Illness/Hospitalization: Yes [facility] Medical History (Updated 05/01/21 @ 21:[address] Rodrigo Zamora MD) Blood clotting disorder Protein C deficiency Protein S deficiency Short gut syndrome Home Medications ergocalciferol (vitamin D2) 50,000 unit PO MOTUWETH 10/09/14 [History Last Taken 04/21/19] calcium carbonate 500 mg PO TIDCM 04/27/16 [History Last Taken 04/21/19] xseapbqpgbce-Ag-teec-minerals 3 tab PO DAILY 04/27/16 [History Last Taken 04/21/19] magnesium L-lactate 84 mg tablet,extended release 252 mg PO TID tab 01/24/18 [History Last Taken 04/21/19] enoxaparin 70 mg SUBCUT BID 09/03/18 [History Last Taken 04/20/19] potassium chloride 80 meq PO TID 03/03/19 [History Last Taken 04/21/19] cyclobenzaprine 10 mg PO BID PRN #10 tab 10/28/20 [Rx Last Taken Unknown] lidocaine [Lidoderm] 1 patch TOPICAL DAILY #8 ea 10/28/20 [Rx Last Taken Unknown] phenazopyridine [Pyridium] 200 mg PO TID #9 tab 04/16/21 [Rx Last Taken Unknown] sulfamethoxazole-trimethoprim [Bactrim DS] 1 tab PO BID #14 tab 04/16/21 [Rx Last Taken Unknown] oxycodone-acetaminophen [Percocet] 1 tab PO Q6H PRN 3 Days #12 tab 04/25/21 [Rx Last Taken Unknown] sulfamethoxazole-trimethoprim [Bactrim DS] 1 tab PO BID #14 tab 04/25/21 [Rx Last Taken Unknown] tamsulosin [Flomax] 0.4 mg PO DAILY #7 cap 04/25/21 [Rx Last Taken Unknown] oxycodone-acetaminophen 1 tab PO Q6H PRN PRN 5 Days #20 tablet 05/01/21 [Rx Last Taken Unknown] Allergy/AdvReac Type Severity Reaction Status Date / Time adhesive Allergy Itching Verified 05/01/21 17:41 amoxicillin [Amoxicillin] Allergy Hives Verified 05/01/21 17:41 Penicillins Allergy Hives Verified 05/01/21 17:41 Family History Grandmother Diabetes Heart disease Mother Heart disease Grandfather Lung cancer Liver cancer Brain cancer Surgical History History of removal of ovarian cyst Hx of cholecystectomy S/P hernia repair STEPS procedure Social History Smoking Status: Current every day smoker tobacco type: cigarettes alcohol intake: current alcohol intake frequency: holidays/special occasions only substance use type: does not use caffeine: Yes what type of physical activity do you participate in: none seatbelt use: always do you feel safe at home: Yes additional social history: - Lul Patient works with [employer] ROS ED Constitutional Constitutional ED: Denies chills, fever(s), subjective, sweats or weight loss Eyes Eyes: Denies blurry vision, change in vision or diplopia ENT ENT ED: Denies ear pain, rhinorrhea or sore throat Cardiovascular Cardiovascular: Denies chest pain or palpitations Respiratory/Chest Respiratory/Chest: Denies cough, dyspnea, dyspnea on exertion or sputum Gastrointestinal Gastrointestinal: Denies abdominal pain, diarrhea, nausea or vomiting Genitourinary Genitourinary ED: Reports urinary frequency; Denies dysuria or hematuria Musculoskeletal Musculoskeletal: Denies arthralgias, back pain, myalgias or neck pain Integumentary Denies abscess or rash Neurologic Neurologic: Denies headache(s), paresthesias or weakness EXAM Physical Exam Const Vital Signs: 05/01/21 17:42 Temperature 97.1 F L Temperature Source Temporal Pulse Rate 89 Respiratory Rate 18 Blood Pressure 140/89 H Blood Pressure Mean 106 Pulse Ox 99 Oxygen Delivery Method Room Air Positive well nourished and well developed General Appearance ED: well developed and NAD; Negative for cyanotic, diaphoretic or pallor HEENT Reports TM's clear and moist mucous membranes Negative for trauma or tenderness Tympanic Membrane ED: Yes TM's clear Eyes PERRL and EOMs intact bilaterally General Eye ED: Negative for pale conjunctiva or scleral icterus Neck no lymphadenopathy, supple and no JVD Resp normal respiratory effort and clear to auscultation bilaterally Cardio regular rate, regular rhythm, S1 normal heart sound, S2 normal heart sound and no murmurs GI normal to inspection, nondistended, normoactive bowel sounds and non-distended; Negative for non-tender Palpation: soft and tender suprapubic Back/Spine no CVA tenderness Cervical Spine: Negative for cervical spine tenderness Thoracic Spine / Upper Back: Negative for thoracic spinal tenderness or paraspinal muscle tenderness Extremity normal to inspection General Extremety ED: Negative for edema or tenderness General Extremity: Negative for edema Neuro oriented x3, CN's II-XII intact bilaterally and no sensory deficits noted Sensorium / Orientation: alert Motor Exam: strength 5/5 throughout Psych mental status grossly normal Skin no rashes or lesions noted and no wounds General Skin Exam: elasticity normal; Negative for jaundice or pallor MDM MDM Lab Data Attestation: I reviewed the patient's lab results. Lab results narrative: There is no evidence of infection. Suspect patient's stone is moving. Will refer to Dr. Hudson Labs: Laboratory Results - last 24 hr 05/01/21 20:36 Urine Color Yellow Urine Clarity Clear Urine pH 6.0 Ur Specific Harman 1.025 Urine Protein 30 H Urine Glucose (UA) Normal Urine Ketones Negative Urine Occult Blood 50 H Urine Nitrite Negative Urine Bilirubin Negative Urine Urobilinogen Normal Ur Leukocyte Esterase 100 H Urine RBC 0-5 SEEN Urine WBC 0-5 SEEN Ur Squamous Epith Cells 0-5 SEEN Urine Bacteria 0 SEEN Urine Mucus 0 SEEN Discharge Plan Triage Chief Complaint: Complaint ED Provider: Rodrigo Zamora Dx/Rx/DC Orders Clinical Impression: Calculus of distal left ureter Instructions: ED Kidney Stone w/ Colic Prescriptions: New oxycodone-acetaminophen [oxycodone-acetaminophen] 1 TABLET tablet 1 tab PO Q6H PRN PRN (Reason: pain) 5 Days Qty: 20 RF: 0 No Action magnesium L-lactate 84 mg tablet extended release 252 mg PO TID RF: 0 ergocalciferol (vitamin D2) 50,000 UNIT capsule 50,000 unit PO MOTUWETH RF: 0 calcium carbonate 500 MG tablet 500 mg PO TIDCM RF: 0 qteinpsxhkfc-Ug-flsy-minerals 1 EACH tablet 3 tab PO DAILY RF: 0 enoxaparin 100 MG/ML syringe 70 mg subcut BID RF: 0 potassium chloride 20 MEQ tablet 80 meq PO TID RF: 0 cyclobenzaprine 10 mg tablet 10 mg PO BID PRN (Reason: muscle spasm) Qty: 10 RF: 0 lidocaine [Lidoderm] 5 % adhesive patch,medicated 1 patch topical DAILY Qty: 8 RF: 0 sulfamethoxazole-trimethoprim [Bactrim DS] 800-160 mg tablet 1 tab PO BID Qty: 14 RF: 0 phenazopyridine [Pyridium] 200 mg tablet 200 mg PO TID Qty: 9 RF: 0 sulfamethoxazole-trimethoprim [Bactrim DS] 800-160 mg tablet 1 tab PO BID Qty: 14 RF: 0 oxycodone-acetaminophen [Percocet] 5-325 mg tablet 1 tab PO Q6H PRN (Reason: pain) 3 Days Qty: 12 RF: 0 tamsulosin [Flomax] 0.4 mg capsule 0.4 mg PO DAILY Qty: 7 RF: 0 Primary Care Provider: José Luis Motley Referrals: Shayla Hudson MD [STAFF PHYSICIAN] - 5-7 Days José Luis Motley MD [Primary Care Provider] - Disposition Disposition: Home, Self Care
[2021-05-01 21:04] LABS: Red Blood Cells-Urine 0-5 SEEN /hpf (0-5); Squamous Epithelial Cells - UA 0-5 SEEN /hpf (5-10); White Blood Cells 0-5 SEEN /hpf (0-5)
[2021-05-01 21:32] LABS: Internal QC Validated? YES +Cl - CLEAR BKGD; Pregnancy, Urine Negative Negative
[2021-05-01] MEDS: oxyCODONE 5 MG Tablet PO (21:52)
[2021-05-01 22:00] VITALS: PULSE 84; RESP 16; O2SAT 99
--- NOTE | 2021-05-01 22:00 | ED.RN ---
THIS NURSE REVIEWED D/C INSTRUCTIONS WITH PT. PT VERBALIZED UNDERSTANDING OF INSTRUCTIONS. PT DENIES FURTHER NEEDS OR QUESTIONS AT THIS TIME
== END 2021-05-01 22:03 | disposition home or self-care (01) ==
PROVIDERS: Emergency Provider Emergency Medicine; PCP Family Medicine
DX: N20.1 Calculus of ureter (principal); F17.210 Nicotine dependence, cigarettes, uncomplicated; Z87.440 Personal history of urinary (tract) infections
CPT/HCPCS: 81001; 81025; 99283

== ENCOUNTER 2021-05-11 06:32 | Emergency (ER) | payer MEDICAID, SELFPAY ==
[2021-05-11 06:36] VITALS: BP 148/10; PULSE 59; RESP 16; TEMP 37.1; O2SAT 98; BMI 27.6
--- NOTE | 2021-05-11 07:05 | EDS_ITS ---
HPI History of Present Illness Chief Complaint: Flank Pain Informant: patient Onset/Context/Timing Onset: Weeks Timing: Intermittent Current Severity: Mild Maximum Severity: Moderate Narrative Narrative: Patient presents secondary to continued left flank pain. Patient was seen on the and the of this month for similar. On the she was diagnosed with a 4.9 mm left UPJ stone. She is scheduled to see Dr. Hudson next week. Patient states that yesterday and today she is having urinary frequency but not able to pass much urine. She continues to have pain along the left flank region. She did have 1 episode of vomiting this morning secondary to pain. No dysuria. No fever. PFSH [facility] Medical History Blood clotting disorder Kidney stone Protein C deficiency Protein S deficiency Short gut syndrome Home Medications ergocalciferol (vitamin D2) 50,000 unit PO MOTUWETH 10/09/14 [History Last Taken 04/21/19] calcium carbonate 500 mg PO TIDCM 04/27/16 [History Last Taken 04/21/19] tvvbdzywkdhe-Av-sxog-minerals 3 tab PO DAILY 04/27/16 [History Last Taken 04/21/19] magnesium L-lactate 84 mg tablet,extended release 252 mg PO TID tab 01/24/18 [History Last Taken 04/21/19] enoxaparin [Lovenox] 70 mg SUBCUT DAILY 05/11/21 [History Last Taken Unknown] ondansetron HCl [Zofran] 4 mg PO Q8H PRN #10 tab 05/11/21 [Rx Last Taken Unknown] oxycodone-acetaminophen [Percocet] 1 tab PO Q6H PRN 3 Days #10 tab 05/11/21 [Rx Last Taken Unknown] sulfamethoxazole-trimethoprim [Bactrim DS] 1 tab PO BID #10 tab 05/11/21 [Rx Last Taken Unknown] tamsulosin [Flomax] 0.4 mg PO DAILY #7 cap 05/11/21 [Rx Last Taken Unknown] Allergy/AdvReac Type Severity Reaction Status Date / Time adhesive Allergy Itching Verified 05/11/21 06:33 amoxicillin [Amoxicillin] Allergy Hives Verified 05/11/21 06:33 Penicillins Allergy Hives Verified 05/11/21 06:33 Family History Grandmother Diabetes Heart disease Mother Heart disease Grandfather Lung cancer Liver cancer Brain cancer Surgical History History of removal of ovarian cyst Hx of cholecystectomy S/P hernia repair STEPS procedure Social History Smoking Status: Current every day smoker tobacco type: cigarettes alcohol intake: current alcohol intake frequency: holidays/special occasions only substance use type: does not use caffeine: Yes what type of physical activity do you participate in: none seatbelt use: always do you feel safe at home: Yes additional social history: - Lul Patient works with [employer] ROS ED Constitutional Constitutional ED: Reports chills; Denies fever(s) Eyes Eyes: Denies change in vision ENT ENT ED: Denies sore throat Cardiovascular Cardiovascular: Denies chest pain Respiratory/Chest Respiratory/Chest: Denies cough or dyspnea Gastrointestinal Gastrointestinal: Reports abdominal pain, nausea and vomiting; Denies diarrhea Genitourinary Genitourinary ED: Reports urinary frequency; Denies dysuria or hematuria Musculoskeletal Musculoskeletal: Reports back pain Integumentary Denies rash Neurologic Neurologic: Denies headache(s) or weakness Psychiatric Psychiatric: Denies anxiety or depression Allergic/Immunologic Allergic/Immunologic ED: Denies urticaria EXAM Physical Exam Const Vital Signs: 05/11/21 06:36 05/11/21 09:18 Temperature 98.7 F Temperature Source Oral Pulse Rate 59 L 50 L Respiratory Rate 16 16 Blood Pressure 148/10 H 135/87 H Blood Pressure Mean 56 103 Pulse Ox 98 100 Oxygen Delivery Method Room Air Room Air Positive well nourished and well developed General Appearance ED: well developed HEENT Reports moist mucous membranes Eyes PERRL and EOMs intact bilaterally Neck supple Chest Wall inspection of chest normal and palpation of chest normal Resp normal respiratory effort and clear to auscultation bilaterally Cardio regular rate and regular rhythm GI non-tender Auscultation: hypoactive bowel sounds Palpation: soft Extremity normal to inspection Neuro oriented x3 Sensorium / Orientation: alert Psych mental status grossly normal Skin no rashes or lesions noted MDM MDM MDM Narrative Medical decision making narrative: Patient was given morphine, Toradol, Zofran, IV fluids. Lab work and urinalysis ordered. KUB ordered. Lab Data Attestation: I reviewed the patient's lab results. Labs: Laboratory Results - last 24 hr 05/11/21 05/11/21 05/11/21 06:50 06:50 09:10 WBC 7.3 RBC 4.46 Hgb 13.3 Hct 41.2 MCV 92.4 MCH 29.8 MCHC 32.3 RDW Std Deviation 43.2 RDW Coeff of Jim 12.7 Plt Count 225 MPV 9.6 Immature Gran % (Auto) 0.100 Neut % (Auto) 63.3 Lymph % (Auto) 24.3 Warren % (Auto) 8.3 Eos % (Auto) 3.3 Baso % (Auto) 0.7 Absolute Neuts (auto) 4.6 Absolute Lymphs (auto) 1.77 Nucleated RBC % 0 Sodium 141 Potassium 3.7 Chloride 109 H Carbon Dioxide 29.0 Anion Gap 3 L BUN 12 Creatinine 0.90 Estim Creat Clear Calc 71.75 Est GFR (MDRD) Af Amer 90 Est GFR (MDRD) Non-Af 74 BUN/Creatinine Ratio 13.4 Glucose 89 Calcium 9.4 Urine Color Yellow Urine Clarity Sl. Cloudy Urine pH 6.0 Ur Specific Bicknell 1.020 Urine Protein 30 H Urine Glucose (UA) Normal Urine Ketones Negative Urine Occult Blood 150 H Urine Nitrite Negative Urine Bilirubin Negative Urine Urobilinogen Normal Ur Leukocyte Esterase 100 H Urine RBC 10-25 SEEN Urine WBC 10-25 SEEN Ur Squamous Epith Cells 0-5 SEEN Urine Bacteria 1+ Urine Mucus 1+ Radiography Diagnostic Testing: Clinical Impression(s) from Imaging Studies KUB X-Ray 05/11/21 07:45 IMPRESSION: Left intrarenal calculi. 4.3 mm calcification in the left hemipelvis. This may lie within the distal portion of the left ureter. Electronically Signed: Steve Gan MD at 8:37 EST , Service support , Treatment and Re-Evaluation Comments:: KUB my interpretation does seem to show a distal left ureteral stone. This was compared to her prior CT and at that time there was a stone at the UPJ. Lab work reveals normal renal function. Urinalysis shows 10-25 white cells with 1+ bacteria. Patient will be covered with another course of Bactrim. I will write her for an additional course of pain medication and she will follow up on the with Dr. Hudson as scheduled. Discharge Plan Triage Chief Complaint: Flank Pain ED Provider: Lainey Toney Dx/Rx/DC Orders Clinical Impression: Kidney stone on left side Instructions: ED Kidney Stone w/ Colic Prescriptions: New sulfamethoxazole-trimethoprim [Bactrim DS] 800-160 mg tablet 1 tab PO BID Qty: 10 RF: 0 ondansetron HCl [Zofran] 4 mg tablet 4 mg PO Q8H PRN (Reason: nausea and vomiting) Qty: 10 RF: 0 oxycodone-acetaminophen [Percocet] 5-325 mg tablet 1 tab PO Q6H PRN (Reason: pain) 3 Days Qty: 10 RF: 0 tamsulosin [Flomax] 0.4 mg capsule 0.4 mg PO DAILY Qty: 7 RF: 0 No Action magnesium L-lactate 84 mg tablet extended release 252 mg PO TID RF: 0 ergocalciferol (vitamin D2) 50,000 UNIT capsule 50,000 unit PO MOTUWETH RF: 0 calcium carbonate 500 MG tablet 500 mg PO TIDCM RF: 0 gmhwexavrdek-Wa-mpel-minerals 1 EACH tablet 3 tab PO DAILY RF: 0 enoxaparin [Lovenox] 80 mg/0.8 mL Syringe 70 mg SUBCUT DAILY RF: 0 Primary Care Provider: José Luis Motley Referrals: Shayla Hudson MD [STAFF PHYSICIAN] - Keep Martín appointment José Luis Motley MD [Primary Care Provider] - Disposition Disposition: Home, Self Care
[2021-05-11 07:13] LABS: Absolute Lymphocyte Count 1.77 X10^3/uL (0.83-4.51); Absolute Neutrophil Count 4.6 X10^3/uL (2.0-7.7); Basophil# 0.05 X10^3/uL; Basophil% 0.7 % (0-1); Eosinophil# 0.24 X10^3/uL; Eosinophils% 3.3 % (0-5); Hematocrit 41.2 % (37-47); Hemoglobin 13.3 g/dL (12.0-15.0); Lymphocyte # 1.77 X10^3/ul (0.83-4.51); Lymphocyte % 24.3 % (19-41); Mean Corp Hgb Conc 32.3 g/dL (32-36); Mean Corpuscular Hgb 29.8 pg (27.0-32.0); Mean Corpuscular Volume 92.4 fL (81-99); Mean Platelet Vol. 9.6 fl (6.2-12.0); Monocyte% 8.3 % (0-10); NRBC Flagged by Analyzer 0 % (0-5); Neutrophil % 63.3 % (47-70); Platelet Count 225 K/mm3 (150-450); RBC Distribution Width CV 12.7 % (11.6-14.6); RBC Distribution Width SD 43.2 fl (35.1-43.9); Red Blood Count 4.46 M/mm3 (4.2-5.4); White Blood Count 7.3 K/mm3 (4.4-11.0)
[2021-05-11 07:18] LABS: Anion Gap 3 (5-15); BUN 12 mg/dL (7-18); BUN/Creat Ratio 13.4 RATIO (10-20); Calcium,Total 9.4 mg/dL (8.5-10.1); Chloride 109 mmol/L (98-107); EST Glomerular Filtration Rate 74 mL/min (>60); Est Glom Filt Rate - Afr Amer 90 mL/min (>60); Estimated Creatinine Clearance 71.75 ml/min; Glucose 89 mg/dL (74-106); Potassium 3.7 mmol/L (3.5-5.1); Sodium Level 141 mmol/L (136-145)
[2021-05-11] MEDS: Ondansetron 4 MG/2 ML Vial IV (07:37)
[2021-05-11] MEDS: Ketorolac 15 MG/ML Vial IV (07:37)
[2021-05-11] MEDS: Morphine 4 MG/ML Syringe IV (07:37)
[2021-05-11] MEDS: 0.9% Normal Saline 1,000 ML 150 ML IV (07:37)
--- NOTE | 2021-05-11 07:45 | RAD_ITS ---
STUDY: X-RAY - ABDOMEN/PELVIS REASON FOR EXAM: Female, 41 years old. Left ureterolithiasis. Increasing pain. TECHNIQUE: COMPARISON: None. FINDINGS: There is an unremarkable bowel gas pattern. The patient is status post cholecystectomy. There is evidence of left intrarenal calculi. The largest calculus is in the upper pole and measures 3.7 mm. There is a 4.3 mm calcification in the left hemipelvis. This may lie in the distal left ureter. IUD is seen. There is evidence of prior bowel anastomoses. Normal soft tissue structures. Normal visualized osseous structures. RAD/Abdomen Single View IMPRESSION: Left intrarenal calculi. 4.3 mm calcification in the left hemipelvis. This may lie within the distal portion of the left ureter. Electronically Signed: Steve Gan MD at 8:37 EST , Service support ,
[2021-05-11 09:18] VITALS: BP 135/87; PULSE 50; RESP 16; O2SAT 100
[2021-05-11 09:23] LABS: Color, Urine Yellow (Yellow); Glucose, Dipstick Normal (Normal); Ketone-Dipstick Negative (Negative); Leukocyte Esterase-Dipstick 100 /ul (Negative); Nitrite-Dipstick Negative (Negative); Occult Blood-Urine 150 /ul (Negative); Protein-Dipstick 30 mg/dl (Negative); Urine Bilirubin Dipstick Negative (Negative); Urine Clarity Sl. Cloudy (Clear); Urine Urobilinogen Normal (Normal)
[2021-05-11 09:29] LABS: Bacteria 1+ /hpf (None Seen); Mucous, Urine 1+ /hpf (<or=2+); Red Blood Cells-Urine 10-25 SEEN /hpf (0-5); Squamous Epithelial Cells - UA 0-5 SEEN /hpf (5-10); White Blood Cells 10-25 SEEN /hpf (0-5)
== END 2021-05-11 10:13 | disposition home or self-care (01) ==
PROVIDERS: Emergency Provider Emergency Medicine; PCP Family Medicine
DX: N20.0 Calculus of kidney (principal); F17.210 Nicotine dependence, cigarettes, uncomplicated; K91.2 Postsurgical malabsorption, not elsewhere classified; Z79.899 Other long term (current) drug therapy
CPT/HCPCS: 74018; 80048; 81001; 85025; 87086; 87088; 96374; 96375; 99283; J7030; A4216; J2405

== ENCOUNTER 2021-05-18 21:34 | Emergency (ER) | payer MEDICAID, SELFPAY ==
[2021-05-18 21:35] VITALS: BP 141/83; PULSE 70; RESP 16; TEMP 36; O2SAT 98; BMI 28.8
[2021-05-18 23:09] LABS: Color, Urine Yellow (Yellow); Glucose, Dipstick Normal (Normal); Ketone-Dipstick 5 mg/dl (Negative); Leukocyte Esterase-Dipstick 100 /ul (Negative); Nitrite-Dipstick Negative (Negative); Occult Blood-Urine 25 /ul (Negative); Protein-Dipstick 15 mg/dl (Negative); Specific Gravity, Urine 1.025 (1.002-1.030); Urine Bilirubin Dipstick Negative (Negative); Urine Clarity Clear (Clear); Urine Urobilinogen Normal (Normal)
[2021-05-18 23:22] LABS: Red Blood Cells-Urine 0-5 SEEN /hpf (0-5); Squamous Epithelial Cells - UA 0-5 SEEN /hpf (5-10); White Blood Cells 0-5 SEEN /hpf (0-5)
[2021-05-18 23:23] LABS: Bacteria RARE /hpf (None Seen); Mucous, Urine 1+ /hpf (<or=2+)
--- NOTE | 2021-05-18 23:26 | RAD_ITS ---
STUDY: X-RAY - ABDOMEN/PELVIS REASON FOR EXAM: Female, 41 years old patient with left-sided kidney stone TECHNIQUE: Two AP supine views of the abdomen and pelvis. COMPARISON: CT abdomen and pelvis dated 04/25/2021. FINDINGS: Normal visualized lung bases. There is an unremarkable bowel gas pattern. There is a small calcification within the left pelvis that may represent a distal ureteral calculus. This calcification measures approximately 5.9 mm which corresponds to the calculus is identified on the CT. There is no obvious organomegaly, mass, or dilated bowel. Surgical clips are visible in right upper quadrant. There are multiple surgical sutures within the right side of the abdomen and/or dystrophic calcifications. There is an IUD. Normal soft tissue structures. Normal visualized osseous structures. RAD/Abdomen Single View (Portable) IMPRESSION: Findings suggest distal left ureteral calculus. Electronically Signed: Alondra Schwartz MD at 0:46 EST , Service support ,
--- NOTE | 2021-05-18 23:28 | EDS_ITS ---
HPI History of Present Illness Chief Complaint: Flank Pain Informant: patient Narrative Narrative: Patient presents with left flank pain. This started earlier in the month. She has been diagnosed with a kidney stone on that side. She had been planning to follow-up with Dr. Pro trevino but they did not take insurance. She was then following up with Dr. Andrew Coffman on the of this month. She called their office. Evidently she has the wrong type of care source and could not be seen there. She has been off of her Bactrim, Percocet and Flomax for about 2 days. The patient states the pain is now coming back again. But she is not having fevers or chills. She is able to eat and drink. This patient also has a rather complex history. 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 She has diarrhea pretty much all the time. She has had to step procedures trying to help. However the symptoms are more consistent with her kidney stone. 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 gut syndrome Home Medications ergocalciferol (vitamin D2) 50,000 unit PO MOTUWETH 10/09/14 [History Last Taken 04/21/19] calcium carbonate 500 mg PO TIDCM 04/27/16 [History Last Taken 04/21/19] wsfxfnepzjkp-Ds-hmno-minerals 3 tab PO DAILY 04/27/16 [History Last Taken 04/21/19] magnesium L-lactate 84 mg tablet,extended release 252 mg PO TID tab 01/24/18 [History Last Taken 04/21/19] enoxaparin [Lovenox] 70 mg SUBCUT DAILY 05/11/21 [History Last Taken Unknown] ondansetron HCl [Zofran] 4 mg PO Q8H PRN #10 tab 05/11/21 [Rx Last Taken Unknown] oxycodone-acetaminophen [Percocet] 1 tab PO Q6H PRN 3 Days #10 tab 05/11/21 [Rx Last Taken Unknown] sulfamethoxazole-trimethoprim [Bactrim DS] 1 tab PO BID #10 tab 05/11/21 [Rx Last Taken Unknown] tamsulosin [Flomax] 0.4 mg PO DAILY #7 cap 05/11/21 [Rx Last Taken Unknown] oxycodone-acetaminophen [Percocet] 1 tab PO Q6H PRN 5 Days #20 tab 05/19/21 [Rx Last Taken Unknown] tamsulosin [Flomax] 0.4 mg PO DAILY #10 cap 05/19/21 [Rx Last Taken Unknown] Allergy/AdvReac Type Severity Reaction Status Date / Time adhesive Allergy Itching Verified 05/18/21 21:35 amoxicillin [Amoxicillin] Allergy Hives Verified 05/18/21 21:35 Penicillins Allergy Hives Verified 05/18/21 21:35 Family History Grandmother Diabetes Heart disease Mother Heart disease Grandfather Lung cancer Liver cancer Brain cancer Surgical History History of removal of ovarian cyst Hx of cholecystectomy S/P hernia repair STEPS procedure Social History Smoking Status: Current every day smoker tobacco type: cigarettes alcohol intake: current alcohol intake frequency: holidays/special occasions only substance use type: does not use caffeine: Yes what type of physical activity do you participate in: none seatbelt use: always do you feel safe at home: Yes additional social history: - Lul Patient works with [employer] ROS ED Constitutional Constitutional ED: Denies chills or fever(s) ENT ENT ED: Denies rhinorrhea or sore throat Cardiovascular Cardiovascular: Denies chest pain or palpitations Respiratory/Chest Respiratory/Chest: Denies cough or dyspnea Gastrointestinal Gastrointestinal: Reports abdominal pain; Denies diarrhea, nausea or vomiting Genitourinary Genitourinary ED: Denies dysuria, hematuria or urinary frequency Musculoskeletal Musculoskeletal: Reports back pain; Denies arthralgias, myalgias or neck pain Integumentary Denies rash Neurologic Neurologic: Denies headache(s) Endocrine Endocrinology: Denies polydipsia or polyuria Allergic/Immunologic Allergic/Immunologic ED: Denies mouth swelling or urticaria EXAM Physical Exam Const Vital Signs: 05/18/21 21:35 Temperature 96.8 F L Temperature Source Temporal Pulse Rate 70 Respiratory Rate 16 Blood Pressure 141/83 H Blood Pressure Mean 102 Pulse Ox 98 Oxygen Delivery Method Room Air Despite her history, and her current symptoms and condition, she actually looks quite comfortable. She does not look ill or toxic. Positive well nourished and well developed General Appearance ED: well developed and NAD HEENT Reports moist mucous membranes Eyes General Eye ED: Negative for pale conjunctiva or scleral icterus Neck no JVD Resp normal respiratory effort and clear to auscultation bilaterally Cardio regular rate and regular rhythm GI normal to inspection, nondistended, normoactive bowel sounds, non-tender and non-distended Palpation: soft Back/Spine General Back: CVA tenderness Extremity normal to inspection General Extremety ED: Negative for edema or tenderness General Extremity: Negative for edema Neuro Sensorium / Orientation: alert Psych mental status grossly normal Skin no rashes or lesions noted and no wounds Skin Narrative: No erythema, lesions, vesicles etc. MDM MDM MDM Narrative Medical decision making narrative: Patient's white count is just slightly low. Hemoglobin is normal. is negative. Urine shows very few red and white cells. It is clear. No significant indication of infection. Electrolytes showed minimally low potassium and calcium. X-ray showed findings consistent with a left-sided calculus. This is consistent with her history, prior CTs and exam. She is not showing any sign of renal dysfunction. She has had trouble getting into urology. I will give her number of [facility] urology which usually has the widest range of physicians and facilities available for follow-up. She should return with worsening pain, fevers, vomiting, unable to keep meds down or other concerns. I did do online prescribing report. She has a fair number of prescriptions. However, with a kidney stone of substantial size she does not look like she has been using an excessive number of pills. I do not think it is inappropriate to further prescribe these as all indication is she has an active stone that would normally be causing discomfort. We discussed all the issues with the patient. We also discussed follow-up in [facility]. This is who she was planning on calling. She will call them this morning. She is very happy about the process care and obtaining the number for her. She is comfortable going home. Lab Data Attestation: I reviewed the patient's lab results. Labs: Laboratory Results - last 24 hr 05/18/21 05/18/21 05/18/21 22:56 23:40 23:40 WBC 3.9 L RBC 4.14 L Hgb 12.3 Hct 37.8 MCV 91.3 MCH 29.7 MCHC 32.5 RDW Std Deviation 41.8 RDW Coeff of Jim 12.6 Plt Count 182 MPV 9.2 Immature Gran % (Auto) 0.300 Neut % (Auto) 57.9 Lymph % (Auto) 26.0 [place] % (Auto) 13.5 H Eos % (Auto) 1.5 Baso % (Auto) 0.8 Absolute Neuts (auto) 2.3 Absolute Lymphs (auto) 1.02 Nucleated RBC % 0 Sodium Potassium Chloride Carbon Dioxide Anion Gap BUN Creatinine Estim Creat Clear Calc Est GFR (MDRD) Af Amer Est GFR (MDRD) Non-Af BUN/Creatinine Ratio Glucose Calcium Serum , Qual NEGATIVE Urine Color Yellow Urine Clarity Clear Urine pH 5.0 Ur Specific [place] 1.025 Urine Protein 15 H Urine Glucose (UA) Normal Urine Ketones 5 H Urine Occult Blood 25 H Urine Nitrite Negative Urine Bilirubin Negative Urine Urobilinogen Normal Ur Leukocyte Esterase 100 H Urine RBC 0-5 SEEN Urine WBC 0-5 SEEN Ur Squamous Epith Cells 0-5 SEEN Urine Bacteria RARE Urine Mucus 1+ 05/18/21 23:40 WBC RBC Hgb Hct MCV MCH MCHC RDW Std Deviation RDW Coeff of Jim Plt Count MPV Immature Gran % (Auto) Neut % (Auto) Lymph % (Auto) [place] % (Auto) Eos % (Auto) Baso % (Auto) Absolute Neuts (auto) Absolute Lymphs (auto) Nucleated RBC % Sodium 140 Potassium 3.4 L Chloride 108 H Carbon Dioxide 25.0 Anion Gap 7 BUN 14 Creatinine 0.97 Estim Creat Clear Calc 66.57 Est GFR (MDRD) Af Amer 82 Est GFR (MDRD) Non-Af 68 BUN/Creatinine Ratio 14.5 Glucose 94 Calcium 8.2 L Serum , Qual Urine Color Urine Clarity Urine pH Ur Specific [place] Urine Protein Urine Glucose (UA) Urine Ketones Urine Occult Blood Urine Nitrite Urine Bilirubin Urine Urobilinogen Ur Leukocyte Esterase Urine RBC Urine WBC Ur Squamous Epith Cells Urine Bacteria Urine Mucus Radiography Diagnostic Testing: Clinical Impression(s) from Imaging Studies KUB X-Ray 05/18/21 23:26 IMPRESSION: Findings suggest distal left ureteral calculus. Electronically Signed: Alondra Schwartz MD at 0:46 EST , Service support , Discharge Plan Triage Chief Complaint: Flank Pain ED Provider: Sukhdev Pennington Dx/Rx/DC Orders Clinical Impression: Kidney stone on left side Instructions: ED Kidney Stone w/ Colic Prescriptions: New tamsulosin [Flomax] 0.4 mg capsule 0.4 mg PO DAILY Qty: 10 RF: 0 oxycodone-acetaminophen [Percocet] 5-325 mg tablet 1 tab PO Q6H PRN (Reason: pain) 5 Days Qty: 20 RF: 0 No Action magnesium L-lactate 84 mg tablet extended release 252 mg PO TID RF: 0 ergocalciferol (vitamin D2) 50,000 UNIT capsule 50,000 unit PO MOTUWETH RF: 0 calcium carbonate 500 MG tablet 500 mg PO TIDCM RF: 0 ttxassegduiv-Gu-zfnj-minerals 1 EACH tablet 3 tab PO DAILY RF: 0 enoxaparin [Lovenox] 80 mg/0.8 mL Syringe 70 mg SUBCUT DAILY RF: 0 sulfamethoxazole-trimethoprim [Bactrim DS] 800-160 mg tablet 1 tab PO BID Qty: 10 RF: 0 ondansetron HCl [Zofran] 4 mg tablet 4 mg PO Q8H PRN (Reason: nausea and vomiting) Qty: 10 RF: 0 oxycodone-acetaminophen [Percocet] 5-325 mg tablet 1 tab PO Q6H PRN (Reason: pain) 3 Days Qty: 10 RF: 0 tamsulosin [Flomax] 0.4 mg capsule 0.4 mg PO DAILY Qty: 7 RF: 0 Primary Care Provider: José Luis Motley Referrals: José Luis Motley MD [Primary Care Provider] - As soon as possible Activity Restrictions/Additional Instructions: Call [phone] for appointment with urology. Return with fevers, worsening pain, vomiting or other concerns. Disposition Disposition: Home, Self Care
[2021-05-18] MEDS: Ondansetron 4 MG/2 ML Vial IV (23:49)
[2021-05-18] MEDS: Morphine 4 MG/ML Syringe IV (23:49)
[2021-05-18] MEDS: 0.9% Normal Saline 1,000 ML 1000 ML IV (23:49)
[2021-05-18 23:56] LABS: Absolute Lymphocyte Count 1.02 X10^3/uL (0.83-4.51); Absolute Neutrophil Count 2.3 X10^3/uL (2.0-7.7); Basophil# 0.03 X10^3/uL; Basophil% 0.8 % (0-1); Eosinophil# 0.06 X10^3/uL; Eosinophils% 1.5 % (0-5); Hematocrit 37.8 % (37-47); Hemoglobin 12.3 g/dL (12.0-15.0); Lymphocyte # 1.02 X10^3/ul (0.83-4.51); Mean Corp Hgb Conc 32.5 g/dL (32-36); Mean Corpuscular Hgb 29.7 pg (27.0-32.0); Mean Corpuscular Volume 91.3 fL (81-99); Mean Platelet Vol. 9.2 fl (6.2-12.0); Monocyte# 0.53 X10^3/uL; Monocyte% 13.5 % (0-10); NRBC Flagged by Analyzer 0 % (0-5); Neutrophil # 2.27 X10^3/uL (2.7-7.7); Neutrophil % 57.9 % (47-70); Platelet Count 182 K/mm3 (150-450); RBC Distribution Width CV 12.6 % (11.6-14.6); RBC Distribution Width SD 41.8 fl (35.1-43.9); Red Blood Count 4.14 M/mm3 (4.2-5.4); White Blood Count 3.9 K/mm3 (4.4-11.0)
[2021-05-19 00:16] LABS: Internal QC Validated? YES +Cl - CLEAR BKGD; Pregnancy, Serum, hCG Quali. NEGATIVE Negative
[2021-05-19 00:19] LABS: Anion Gap 7 (5-15); BUN 14 mg/dL (7-18); BUN/Creat Ratio 14.5 RATIO (10-20); Calcium,Total 8.2 mg/dL (8.5-10.1); Chloride 108 mmol/L (98-107); Creatinine, Serum 0.97 mg/dL (0.55-1.02); EST Glomerular Filtration Rate 68 mL/min (>60); Est Glom Filt Rate - Afr Amer 82 mL/min (>60); Estimated Creatinine Clearance 66.57 ml/min; Glucose 94 mg/dL (74-106); Potassium 3.4 mmol/L (3.5-5.1); Sodium Level 140 mmol/L (136-145)
[2021-05-19 01:32] VITALS: RESP 14
== END 2021-05-19 01:32 | disposition home or self-care (01) ==
PROVIDERS: Emergency Provider Emergency Medicine; PCP Family Medicine
DX: N20.0 Calculus of kidney (principal); F17.210 Nicotine dependence, cigarettes, uncomplicated
CPT/HCPCS: 74018; 80048; 81001; 84703; 85025; 96361; 96374; 96375; 99283; J7030; A4216; J2405

== ENCOUNTER 2021-07-25 06:27 | Emergency (ER) | payer MEDICAID, SELFPAY ==
[2021-07-25 06:29] VITALS: BP 133/89; PULSE 74; RESP 16; TEMP 36.6; O2SAT 100; BMI 28.8
--- NOTE | 2021-07-25 07:03 | CT_ITS ---
STUDY: CTA NECK WITH CONTRAST REASON FOR EXAM: Female, 41 years old. Difficulty swallowing. Sudden onset of posterior neck pain. RADIATION DOSAGE (If Supplied By Facility): CTDIvol = ( 10.73 ) mGy, DLP = ( 504.70 ) mGycm TECHNIQUE: CT angiography with multi-detector data acquisition was performed from the aortic arch to the skull base following intravenous administration of IV 100mL Isovue-370. MIP images were reconstructed from the axial data set. Post-processing of the angiographic images was performed, with multiplanar reformation and 3D reconstruction. Individualized dose optimization techniques were used for this CT. COMPARISON: None. FINDINGS: AORTIC ARCH: Normal visualized aortic arch. Normal origins of the brachiocephalic, left common carotid, and left subclavian arteries. RIGHT CAROTID ARTERIES: Normal right common carotid artery (CCA). Normal right common carotid bulb. Normal origin of the right internal carotid (ICA) artery without a hemodynamically significant stenosis. Normal visualized cervical portion of the right internal carotid artery. Normal origin of the right external carotid artery (ECA). LEFT CAROTID ARTERIES: Normal left common carotid artery (CCA). Normal left common carotid bulb. Normal origin of the left internal carotid (ICA) artery without a hemodynamically significant stenosis. Normal visualized cervical portion of the left internal carotid artery. Normal origin of the left external carotid artery (ECA). VERTEBRAL ARTERIES: Normal bilateral vertebral arteries. CT/CTA Neck W/WO Contrast IMPRESSION: Normal bilateral cervical carotid and vertebral arteries. Electronically Signed: Steve Gan MD at 8:50 EST ,
--- NOTE | 2021-07-25 07:04 | EX.ED.DYSGE1 ---
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 She states she was on her way to work and that her bilateral cheeks and face feels swollen. She does admit to having difficulty swallowing over the past few weeks at times. She denies any shortness of breath. She is a smoker. She is on Lovenox for her hypercoagulable state that she takes daily and has done so for the last 7 years. She does state that she broke a tooth in her right upper jaw and has been having pain there. She is concerned because she feels that her face is swollen. She denies any other symptoms. No exacerbating or alleviating factors. 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 gut syndrome Home Medications ergocalciferol (vitamin D2) 50,000 unit PO MOTUWETH 10/09/14 [History Last Taken 04/21/19] calcium carbonate 500 mg PO TIDCM 04/27/16 [History Last Taken 04/21/19] cqbqzlfudjfi-Vg-xnti-minerals 3 tab PO DAILY 04/27/16 [History Last Taken 04/21/19] magnesium L-lactate 84 mg tablet,extended release 252 mg PO TID tab 01/24/18 [History Last Taken 04/21/19] enoxaparin [Lovenox] 70 mg SUBCUT DAILY 05/11/21 [History Last Taken Unknown] ondansetron HCl [Zofran] 4 mg PO Q8H PRN #10 tab 05/11/21 [Rx Last Taken Unknown] Allergy/AdvReac Type Severity Reaction Status Date / Time adhesive Allergy Itching Verified 07/25/21 06:28 amoxicillin [Amoxicillin] Allergy Hives Verified 07/25/21 06:28 Penicillins Allergy Hives Verified 07/25/21 06:28 Family History Grandmother Diabetes Heart disease Mother Heart disease Grandfather Lung cancer Liver cancer Brain cancer Surgical History History of removal of ovarian cyst Hx of cholecystectomy S/P hernia repair STEPS procedure Social History Smoking Status: Current every day smoker tobacco type: cigarettes alcohol intake: current alcohol intake frequency: holidays/special occasions only substance use type: does not use caffeine: Yes what type of physical activity do you participate in: none seatbelt use: always do you feel safe at home: Yes additional social history: - Lul Patient works with [employer] ED ROS Narrative Constitutional: No fever, no chills. HEENT: No sore throat. No neck pain. No loss of vision. No rhinorrhea. Right upper jaw pain secondary to broken tooth. Swelling of bilateral cheeks. Difficulty swallowing over the last few weeks. Cardiovascular: No chest pain. No palpitations. No pedal edema. Respiratory: No cough, no shortness of breath. Abdominal: No abdominal pain. No nausea. No vomiting. Genitourinary: No dysuria. No hematuria. Musculoskeletal: No myalgias. No arthralgias. Neurologic: No headaches. No dizziness. No lightheadedness. Skin: No rash. No change in color. Psychiatric: No depression. No anxiety. EXAM Physical Exam Narrative Exam Narrative: Afebrile. Vital signs noted. HEENT: Normocephalic. Atraumatic. PERRL, EOMI. Neck soft and supple. No point tenderness or step off. No fluctuance of cheek right side. No drooling or trismus. Airway patent. No overt swelling noted. No plethora or signs of superior vena cava syndrome. Cardiovascular: Regular rate and rhythm. No murmurs, rubs, or gallops appreciated. Respiratory: No tachypnea. Lungs clear to auscultation bilaterally. Gastrointestinal: Abdomen soft, nontender, with normoactive bowel sounds. No rebound or guarding. Neurological: Awake. Alert. Nonfocal, nonlateralizing. Skin: No rash. Normal color. No pallor. Musculoskeletal: No pedal edema. Full range of motion extremities. Const Vital Signs: 07/25/21 06:29 Temperature 97.8 F Temperature Source Temporal Pulse Rate 74 Respiratory Rate 16 Blood Pressure 133/89 H Blood Pressure Mean 103 Pulse Ox 100 Oxygen Delivery Method Room Air MDM MDM MDM Narrative Medical decision making narrative: Given her protein C&S deficiency, I had a lengthy discussion with the patient. I will obtain imaging of her neck including CTA if her GFR allows. I will obtain basic laboratory work as she has had anemia in the past and hypokalemia, CBC is grossly normal with a normal white count of 6.6, hemoglobin normal at 14.0. Electrolyte panel shows no gross abnormality. She has normal glucose, normal creatinine of 0.71 and normal BUN. CTA of the neck was obtained and there is normal bilateral cervical carotid and vertebral arteries. There is no evidence of blood clot. At this point in time, I am unsure as to the cause of her subjective facial swelling. Repeat examination shows her resting comfortably on the cot without any difficulty swallowing. She was told that she can take Benadryl at home and she will follow-up with her primary care provider. Return instructions to the emergency department were reviewed. Disposition is discharged home in stable condition. Lab Data Attestation: I reviewed the patient's lab results. Labs: Laboratory Results - last 24 hr 07/25/21 07/25/21 06:42 06:42 WBC 6.6 RBC 4.57 Hgb 14.0 Hct 43.0 MCV 94.1 MCH 30.6 MCHC 32.6 RDW Std Deviation 44.8 H RDW Coeff of Jim 13.0 Plt Count 242 MPV 10.6 Immature Gran % (Auto) 0.300 Neut % (Auto) 73.9 H Lymph % (Auto) 16.6 L [place] % (Auto) 6.9 Eos % (Auto) 1.8 Baso % (Auto) 0.5 Absolute Neuts (auto) 4.9 Absolute Lymphs (auto) 1.10 Nucleated RBC % 0 Sodium 138 Potassium 3.9 Chloride 106 Carbon Dioxide 27.0 Anion Gap 5 BUN 8 Creatinine 0.71 Estim Creat Clear Calc 90.95 Est GFR (MDRD) Af Amer 117 Est GFR (MDRD) Non-Af 97 BUN/Creatinine Ratio 11.3 Glucose 90 Calcium 9.0 Radiography Diagnostic Testing: Clinical Impression(s) from Imaging Studies Neck CTA 07/25/21 07:03 IMPRESSION: Normal bilateral cervical carotid and vertebral arteries. Electronically Signed: Steve Gan MD at 8:50 EST , Discharge Plan Triage Chief Complaint: Edema ED Provider: Alfonso Hernandez Dx/Rx/DC Orders Clinical Impression: Facial swelling, Encounter for medical screening examination Instructions: ED Lymphedema Prescriptions: No Action magnesium L-lactate 84 mg tablet extended release 252 mg PO TID RF: 0 ergocalciferol (vitamin D2) 50,000 UNIT capsule 50,000 unit PO MOTUWETH RF: 0 calcium carbonate 500 MG tablet 500 mg PO TIDCM RF: 0 xvollcfroyxy-Gq-wbaa-minerals 1 EACH tablet 3 tab PO DAILY RF: 0 enoxaparin [Lovenox] 80 mg/0.8 mL Syringe 70 mg SUBCUT DAILY RF: 0 ondansetron HCl [Zofran] 4 mg tablet 4 mg PO Q8H PRN (Reason: nausea and vomiting) Qty: 10 RF: 0 Primary Care Provider: José Luis Motley Referrals: José Luis Motley MD [Primary Care Provider] - 5-7 Days Disposition Disposition: Home, Self Care
[2021-07-25] MEDS: 0.9% Normal Saline 1,000 ML 999 ML IV (07:14)
[2021-07-25 07:18] LABS: Absolute Neutrophil Count 4.9 X10^3/uL (2.0-7.7); Basophil# 0.03 X10^3/uL; Basophil% 0.5 % (0-1); Eosinophil# 0.12 X10^3/uL; Eosinophils% 1.8 % (0-5); Lymphocyte % 16.6 % (19-41); Mean Corp Hgb Conc 32.6 g/dL (32-36); Mean Corpuscular Hgb 30.6 pg (27.0-32.0); Mean Corpuscular Volume 94.1 fL (81-99); Mean Platelet Vol. 10.6 fl (6.2-12.0); Monocyte# 0.46 X10^3/uL; Monocyte% 6.9 % (0-10); NRBC Flagged by Analyzer 0 % (0-5); Neutrophil # 4.89 X10^3/uL (2.7-7.7); Neutrophil % 73.9 % (47-70); Platelet Count 242 K/mm3 (150-450); RBC Distribution Width SD 44.8 fl (35.1-43.9); Red Blood Count 4.57 M/mm3 (4.2-5.4); White Blood Count 6.6 K/mm3 (4.4-11.0)
[2021-07-25 07:32] LABS: Anion Gap 5 (5-15); BUN 8 mg/dL (7-18); BUN/Creat Ratio 11.3 RATIO (10-20); Chloride 106 mmol/L (98-107); Creatinine, Serum 0.71 mg/dL (0.55-1.02); EST Glomerular Filtration Rate 97 mL/min (>60); Est Glom Filt Rate - Afr Amer 117 mL/min (>60); Estimated Creatinine Clearance 90.95 ml/min; Glucose 90 mg/dL (74-106); Potassium 3.9 mmol/L (3.5-5.1); Sodium Level 138 mmol/L (136-145)
[2021-07-25 09:49] VITALS: BP 134/63; PULSE 72; RESP 15; O2SAT 97
== END 2021-07-25 09:50 | disposition home or self-care (01) ==
PROVIDERS: Emergency Provider Emergency Medicine; PCP Family Medicine; Visit Provider Emergency Medicine
DX: R60.9 Edema, unspecified (principal); F17.210 Nicotine dependence, cigarettes, uncomplicated; Z23 Encounter for immunization; Z79.899 Other long term (current) drug therapy
CPT/HCPCS: 70498; 80048; 85025; 90471; 99285; J7030; Q9967

== ENCOUNTER 2021-08-19 12:19 | Emergency (ER) | payer MEDICAID, SELFPAY ==
[2021-08-19 12:20] VITALS: BP 136/96; PULSE 105; RESP 18; TEMP 37.6; O2SAT 96; BMI 27.8
--- NOTE | 2021-08-19 12:37 | EDS_ITS ---
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 States she is not feeling well. She has a mild headache and chills. Photophobia. She has had nausea without vomiting. She is chronic loose stools and diarrhea from her short gut. Says she just has been able to stay up with her hydration. And thinks she might have electrolyte abnormality. She has had symptoms like this before. No fever. No dysuria. No cough. Prior similar symptoms: Yes Recent Illness/Hospitalization: Yes PFSH [facility] Medical History Blood clotting disorder Kidney stone Protein C deficiency Protein S deficiency Short gut syndrome Home Medications ergocalciferol (vitamin D2) 50,000 unit PO MOTUWETH 10/09/14 [History Last Taken 04/21/19] calcium carbonate 500 mg PO TIDCM 04/27/16 [History Last Taken 04/21/19] cwhhqudcemfj-Rt-jtht-minerals 3 tab PO DAILY 04/27/16 [History Last Taken 04/21/19] magnesium L-lactate 84 mg tablet,extended release 252 mg PO TID tab 01/24/18 [History Last Taken 04/21/19] enoxaparin [Lovenox] 70 mg SUBCUT DAILY 05/11/21 [History Last Taken Unknown] ondansetron HCl [Zofran] 4 mg PO Q8H PRN #10 tab 05/11/21 [Rx Last Taken Unknown] cephalexin 500 mg PO Q6 7 Days #28 cap 08/19/21 [Rx Last Taken Unknown] ondansetron 4 mg PO Q8H PRN #7 tab 08/19/21 [Rx Last Taken Unknown] Allergy/AdvReac Type Severity Reaction Status Date / Time adhesive Allergy Itching Verified 08/19/21 12:21 amoxicillin [Amoxicillin] Allergy Hives Verified 08/19/21 12:21 Penicillins Allergy Hives Verified 08/19/21 12:21 Family History Grandmother Diabetes Heart disease Mother Heart disease Grandfather Lung cancer Liver cancer Brain cancer Surgical History History of removal of ovarian cyst Hx of cholecystectomy S/P hernia repair STEPS procedure Social History Smoking Status: Current every day smoker tobacco type: cigarettes alcohol intake: current alcohol intake frequency: holidays/special occasions only substance use type: does not use caffeine: Yes what type of physical activity do you participate in: none seatbelt use: always do you feel safe at home: Yes additional social history: - Lul Patient works with [employer] ROS ROS ED ROS Narrative Nausea, chronic diarrhea. Headache. Review of Systems ROS Unobtainable: Denies due to encephalopathy Constitutional Constitutional ED: Reports chills; Denies fever(s) Eyes Eyes: Denies change in vision ENT ENT ED: Denies ear pain or rhinorrhea Cardiovascular Cardiovascular: Denies chest pain Respiratory/Chest Respiratory/Chest: Denies cough or dyspnea Gastrointestinal Gastrointestinal: Reports diarrhea and nausea; Denies abdominal pain or vomiting Genitourinary Genitourinary ED: Denies dysuria Musculoskeletal Musculoskeletal: Denies myalgias Integumentary Denies rash Neurologic Neurologic: Reports headache(s) Psychiatric Psychiatric: Denies depression Endocrine Endocrinology: Denies polyuria Allergic/Immunologic Allergic/Immunologic ED: Denies urticaria EXAM Physical Exam Narrative Exam Narrative: 41-year-old female no acute distress. Vital signs stable afebrile temperature nine 9.7. H EENT exam unremarkable. Moist mucosa. Neck nontender no lymphadenopathy. Lungs clear to auscultation bilaterally. Heart tachycardic rate of 105 no murmur. Abdomen soft nontender normal bowel sounds no peritoneal signs. Moving all 4 extremities. Nontender no edema. Neurologically awake alert with no focal motor deficits. Const Vital Signs: 08/19/21 12:20 Temperature 99.7 F H Temperature Source Temporal Pulse Rate 105 H Respiratory Rate 18 Blood Pressure 136/96 H Blood Pressure Mean 109 Pulse Ox 96 Oxygen Delivery Method Room Air Positive well nourished and well developed; Negative for obese, cachectic, contractures or unkempt General Appearance ED: well developed and NAD; Negative for unkempt, cachectic, contractures, cyanotic, diaphoretic or pallor Nutritional Appearance: Negative for cachectic or obese HEENT Reports moist mucous membranes Negative for trauma or tenderness Eyes PERRL and EOMs intact bilaterally General Eye ED: Negative for pale conjunctiva or scleral icterus Neck no lymphadenopathy, supple and no JVD General: Negative for tenderness Chest Wall inspection of chest normal and palpation of chest normal Resp normal respiratory effort and clear to auscultation bilaterally Effort and Inspection: Negative for pain with movement Auscultation: Negative for rales, rhonchi or wheezes Cardio regular rate, regular rhythm, S1 normal heart sound, S2 normal heart sound and no murmurs GI normal to inspection, nondistended, normoactive bowel sounds, non-tender, non- distended and no masses Inspection: Negative for abdominal distention Auscultation: normoactive bowel sounds Palpation: soft; Negative for tender, guarding or rebound tenderness present Back/Spine no CVA tenderness General Back: Negative for CVA tenderness Cervical Spine: Negative for cervical spine tenderness Thoracic Spine / Upper Back: Negative for thoracic spinal tenderness Extremity normal to inspection General Extremety ED: Negative for edema or tenderness General Extremity: Negative for edema Neuro oriented x3 and CN's II-XII intact bilaterally Sensorium / Orientation: alert; Negative for orientation impaired, lethargic or stuporous Motor Exam: strength 5/5 throughout Psych mental status grossly normal Appearance: Negative for unkempt Mood & Affect: Negative for depressed or tearful Skin No no rashes or lesions noted and No no wounds General Skin Exam: Negative for jaundice or pallor MDM MDM MDM Narrative Medical decision making narrative: Middle-aged female with clotting disorder and short gut syndrome from a prior small large bowel resections. Has had nausea and chronic diarrhea. Clinically is probably dehydrated. May or may not have electrolyte abnormalities. Labs are being obtained. She is being hydrated with IV fluids. Treated with Zofran for nausea. Repeat exam patient is feeling much better after IV fluids, Zofran, Toradol and is receiving magnesium and potassium. IV. She denies discussed her lab results. She will be treated for UTI. She was given a dose of p.o. Keflex. And will have a prescription sent in for her. Follow-up with your doctor return if worse. Lab Data Attestation: I reviewed the patient's lab results. Lab results narrative: CBC normal white count of 6. H&H 13 and 41. Chemistries sodium 135 potassium 3.1. Gap is 6. Normal BUN and creatinine. UA is positive for nitrates, 10-25 white cells and 2+ bacteria. Not contaminated. Is been treated for UTI. Culture was sent. Labs: Laboratory Results - last 24 hr 08/19/21 08/19/21 08/19/21 13:09 13:09 13:09 WBC 6.5 RBC 4.53 Hgb 13.7 Hct 41.6 MCV 91.8 MCH 30.2 MCHC 32.9 RDW Std Deviation 43.6 RDW Coeff of Jim 12.9 Plt Count 184 MPV 9.4 Immature Gran % (Auto) 0.300 Neut % (Auto) 72.5 H Lymph % (Auto) 15.7 L [place] % (Auto) 11.0 H Eos % (Auto) 0.2 Baso % (Auto) 0.3 Absolute Neuts (auto) 4.7 Absolute Lymphs (auto) 1.03 Nucleated RBC % 0 Sodium 135 L Potassium 3.1 L Chloride 101 Carbon Dioxide 28.0 Anion Gap 6 BUN 7 Creatinine 0.61 Estim Creat Clear Calc 105.86 Est GFR (MDRD) Af Amer 140 Est GFR (MDRD) Non-Af 116 BUN/Creatinine Ratio 11.5 Glucose 97 Calcium 9.2 Magnesium 1.1 L Urine Color Yellow Urine Clarity Sl. Cloudy Urine pH 6.0 Ur Specific [place] 1.010 Urine Protein 30 H Urine Glucose (UA) Normal Urine Ketones 15 H Urine Occult Blood 250 H Urine Nitrite Positive H Urine Bilirubin Negative Urine Urobilinogen Normal Ur Leukocyte Esterase 500 H Urine RBC 0-5 SEEN Urine WBC 10-25 SEEN Ur Squamous Epith Cells 0 SEEN Urine Bacteria 2+ Urine Mucus 0 SEEN Discharge Plan Triage Chief Complaint: General Illness ED Provider: Douglas Salgado Dx/Rx/DC Orders Clinical Impression: UTI (urinary tract infection), Hypomagnesemia, Short gut syndrome, Protein C deficiency, Protein S deficiency, Acute hypokalemia Instructions: ED Hypokalemia, ED CYSTITIS Female Adult Prescriptions: New cephalexin 500 mg capsule 500 mg PO Q6 7 Days Qty: 28 RF: 0 ondansetron 4 mg tablet,disintegrating 4 mg PO Q8H PRN (Reason: nausea and vomiting) Qty: 7 RF: 0 No Action magnesium L-lactate 84 mg tablet extended release 252 mg PO TID RF: 0 ergocalciferol (vitamin D2) 50,000 UNIT capsule 50,000 unit PO MOTUWETH RF: 0 calcium carbonate 500 MG tablet 500 mg PO TIDCM RF: 0 fhflloldirtx-My-qmub-minerals 1 EACH tablet 3 tab PO DAILY RF: 0 enoxaparin [Lovenox] 80 mg/0.8 mL Syringe 70 mg SUBCUT DAILY RF: 0 ondansetron HCl [Zofran] 4 mg tablet 4 mg PO Q8H PRN (Reason: nausea and vomiting) Qty: 10 RF: 0 Primary Care Provider: José Luis Motley Referrals: José Luis Motley MD [Primary Care Provider] - 3-5 Days if not improving Activity Restrictions/Additional Instructions: Plenty of fluids and rest. You have a UTI. We sent a urine culture. Will be started on the antibiotic Keflex 4 times a day for 7 days. Zofran as needed for nausea. Follow-up with your doctor ensure you are improving or return if worse. Disposition Disposition: Home, Self Care
[2021-08-19] MEDS: Ondansetron 4 MG/2 ML Vial IV (13:06)
[2021-08-19] MEDS: 0.9% Normal Saline 1,000 ML 1000 ML IV (13:06)
[2021-08-19 13:12] LABS: Mucous, Urine 0 SEEN /hpf (<or=2+); Squamous Epithelial Cells - UA 0 SEEN /hpf (5-10)
[2021-08-19 13:14] LABS: Absolute Lymphocyte Count 1.03 X10^3/uL (0.83-4.51); Absolute Neutrophil Count 4.7 X10^3/uL (2.0-7.7); Basophil# 0.02 X10^3/uL; Basophil% 0.3 % (0-1); Eosinophil# 0.01 X10^3/uL; Eosinophils% 0.2 % (0-5); Hematocrit 41.6 % (37-47); Hemoglobin 13.7 g/dL (12.0-15.0); Lymphocyte # 1.03 X10^3/ul (0.83-4.51); Lymphocyte % 15.7 % (19-41); Mean Corp Hgb Conc 32.9 g/dL (32-36); Mean Corpuscular Hgb 30.2 pg (27.0-32.0); Mean Corpuscular Volume 91.8 fL (81-99); Mean Platelet Vol. 9.4 fl (6.2-12.0); Monocyte# 0.72 X10^3/uL; NRBC Flagged by Analyzer 0 % (0-5); Neutrophil # 4.74 X10^3/uL (2.7-7.7); Neutrophil % 72.5 % (47-70); Platelet Count 184 K/mm3 (150-450); RBC Distribution Width CV 12.9 % (11.6-14.6); RBC Distribution Width SD 43.6 fl (35.1-43.9); Red Blood Count 4.53 M/mm3 (4.2-5.4); White Blood Count 6.5 K/mm3 (4.4-11.0)
[2021-08-19] MEDS: Ketorolac 15 MG/ML Vial IV (13:15)
[2021-08-19 13:16] LABS: Color, Urine Yellow (Yellow); Glucose, Dipstick Normal (Normal); Ketone-Dipstick 15 mg/dl (Negative); Leukocyte Esterase-Dipstick 500 /ul (Negative); Nitrite-Dipstick Positive (Negative); Occult Blood-Urine 250 /ul (Negative); Protein-Dipstick 30 mg/dl (Negative); Urine Bilirubin Dipstick Negative (Negative); Urine Clarity Sl. Cloudy (Clear); Urine Urobilinogen Normal (Normal)
[2021-08-19 13:22] LABS: White Blood Cells 10-25 SEEN /hpf (0-5)
[2021-08-19 13:23] LABS: Bacteria 2+ /hpf (None Seen); Red Blood Cells-Urine 0-5 SEEN /hpf (0-5)
[2021-08-19 13:28] LABS: Anion Gap 6 (5-15); BUN 7 mg/dL (7-18); BUN/Creat Ratio 11.5 RATIO (10-20); Calcium,Total 9.2 mg/dL (8.5-10.1); Chloride 101 mmol/L (98-107); Creatinine, Serum 0.61 mg/dL (0.55-1.02); EST Glomerular Filtration Rate 116 mL/min (>60); Est Glom Filt Rate - Afr Amer 140 mL/min (>60); Estimated Creatinine Clearance 105.86 ml/min; Glucose 97 mg/dL (74-106); Magnesium 1.1 mg/dL (1.6-2.6); Potassium 3.1 mmol/L (3.5-5.1); Sodium Level 135 mmol/L (136-145)
[2021-08-19] MEDS: Potassium Chloride 10mEq/100mL 10 MEQ/100 ML IV.SOLN. 100 MEQ IV BOLUS ×2 (13:56→15:05)
[2021-08-19] MEDS: Cephalexin 250 MG Capsule 500 MG PO (14:14)
[2021-08-19 15:09] VITALS: PULSE 90; RESP 21; O2SAT 99
== END 2021-08-19 16:13 | disposition home or self-care (01) ==
PROVIDERS: Emergency Provider Emergency Medicine; PCP Family Medicine; Visit Provider Emergency Medicine
DX: N39.0 Urinary tract infection, site not specified (principal); D68.59 Other primary thrombophilia; E83.42 Hypomagnesemia; K91.2 Postsurgical malabsorption, not elsewhere classified; F17.210 Nicotine dependence, cigarettes, uncomplicated; E87.6 Hypokalemia
CPT/HCPCS: J2405; 83735; 87077; 81001; 87088; 87086; 80048; 99284; 85025; J7030; A4216

== ENCOUNTER 2021-08-20 19:15 | Inpatient (IN) | payer MEDICAID, SELFPAY ==
[2021-08-20 19:16] VITALS: BP 134/90; PULSE 119; RESP 16; TEMP 39.1; O2SAT 98; BMI 26.1
--- NOTE | 2021-08-20 19:28 | CT_ITS ---
STUDY: CT ABDOMEN AND PELVIS WITHOUT CONTRAST REASON FOR EXAM: Female, 41 years old. left flank pain RADIATION DOSAGE (If Supplied By Facility): CTDIvol = ( 8.11 ) mGy, DLP = ( 382.81 ) mGycm TECHNIQUE: Transaxial images were obtained from the dome of the diaphragm to the symphysis pubis without oral contrast, and without intravenous contrast. Sagittal and coronal images were reconstructed. 2.5 mm axials, coronal and sagittal reconstructions. Individualized dose optimization techniques were used for this CT. COMPARISON: April 25, 2021. FINDINGS: LIMITATIONS: None. LOWER CHEST: Normal. LIVER: Low-attenuation fatty-appearing liver with focal sparing near the martha, similar to prior exam. Mildly enlarged or elongated right lobe, 19.3 cm craniocaudal. Stable. GALLBLADDER/BILE DUCTS: Cholecystectomy clips. No bile duct dilatation. PANCREAS: Normal. SPLEEN: Normal. ADRENAL GLANDS: Normal. KIDNEYS/URETERS/BLADDER: At least 2 nonobstructing left intrarenal stones. No hydronephrosis or ureter stone. RETROPERITONEUM/AORTA: Mild atherosclerotic calcification of the aorta. No aneurysm or evidence of dissection. BOWEL/MESENTERY: No oral or rectal contrast is present. Minimal fluid in the proximal stomach, collapsed segments of distal stomach, extensive multifocal bowel surgery with prominent distention of most of the colon with gas and fluid, increased distention of splenic flexure, minimal if any significantly distended small bowel. Mild mild and stool in the distal sigmoid and rectum. APPENDIX: Not identified. PERITONEUM: Normal. REPRODUCTIVE ORGANS: Similar configuration of IUD in the uterus, appears rotated with roughly anterior to posterior orientation of the T limbs rather than transverse orientation, but similar to prior exam. Suspicion of dominant follicle or cyst in the right ovary measuring 3.1 cm x 2.2 cm x 2.9 cm, not fully characterized on unenhanced CT but similar in size and configuration. It was similar on most recent prior exam and it was 3.9 cm x 3.1 cm x 5 cm July 24, 2020. BONES/SOFT TISSUES: No acute abnormality. Surgical scarring at the mid-lower ventral body wall. OTHER: None. CONCLUSION: Normal CT scan of the abdomen and pelvis without contrast. CT/Abdomen/Pelvis without Cont IMPRESSION: Left nephrolithiasis. No hydronephrosis or ureter stone. Otherwise similar findings. Multiple bowel surgeries and prominent distention of much of the colon without evidence of high-grade bowel obstruction. Fatty liver and hepatomegaly. IUD, mildly rotated with respect to the uterus. Presumed cyst in the right ovary, not suspicious by size criteria and mildly smaller compared to July 24, 2020. Electronically Signed: Carolin Hoyos MD at 20:48 EDT ,
--- NOTE | 2021-08-20 19:29 | EDS_ITS ---
HPI History of Present Illness Chief Complaint: Flank Pain Detail of Chief Complaint: Left flank pain and fever. Informant: patient Narrative Narrative: Patient presents to the emergency department complaint of not feeling well for the last 3 days. She was seen in the emergency department yesterday and had IV potassium and magnesium given for history of short gut syndrome. Patient also was thought to have a UTI and was started on Keflex. Patient states she started taking the antibiotics and started having a lot of abdominal discomfort. She also complains of some pain in her left flank and has history of a known kidney stone in her left kidney. Patient has had nausea but no vomiting. Her temperatures been elevated today. She complains of dysuria and frequency. Prior similar symptoms: No PFSH PFSH Medical History Blood clotting disorder Kidney stone Protein C deficiency Protein S deficiency Short gut syndrome Home Medications ergocalciferol (vitamin D2) 50,000 unit PO MOTUWETH 10/09/14 [History Last Taken 04/21/19] calcium carbonate 500 mg PO TIDCM 04/27/16 [History Last Taken 04/21/19] magnesium L-lactate 84 mg tablet,extended release 252 mg PO TID tab 01/24/18 [History Last Taken 04/21/19] enoxaparin [Lovenox] 70 mg SUBCUT DAILY 05/11/21 [History Last Taken Unknown] cephalexin 500 mg PO Q6 7 Days #28 cap 08/19/21 [Rx Last Taken Unknown] Allergy/AdvReac Type Severity Reaction Status Date / Time adhesive Allergy Itching Verified 08/20/21 19:20 amoxicillin [Amoxicillin] Allergy Hives Verified 08/20/21 19:20 Penicillins Allergy Hives Verified 08/20/21 19:20 Family History Grandmother Diabetes Heart disease Mother Heart disease Grandfather Lung cancer Liver cancer Brain cancer Surgical History History of removal of ovarian cyst Hx of cholecystectomy S/P hernia repair STEPS procedure Social History Smoking Status: Current every day smoker tobacco type: cigarettes alcohol intake: current alcohol intake frequency: holidays/special occasions only substance use type: does not use caffeine: Yes what type of physical activity do you participate in: none seatbelt use: always do you feel safe at home: Yes additional social history: - Lul Patient works with [employer] ROS ED Constitutional Constitutional ED: Reports systems reviewed and no addt'l complaints, except as documented, chills and fever(s); Denies body ache(s) or change in weight Eyes Eyes: Denies acute decrease in peripheral vision, change in vision, double vision or loss of vision ENT ENT ED: Reports none; Denies ear pain, lip swelling, loss taste/smell, neck pain, otalgia or sore throat Cardiovascular Cardiovascular: Reports none; Denies abdominal pain, chest pain with activity, leg edema, lightheadedness, palpitations, rapid heart rate or syncope Respiratory/Chest Respiratory/Chest: Reports none; Denies change in mental status, dry cough, dyspnea, hemoptysis, shortness of breath at rest or shortness of breath with exertion Gastrointestinal Gastrointestinal: Reports none, abdominal pain and nausea; Denies change in stool character, diarrhea, hematemesis, hematochezia, melena, rectal bleeding or vomiting Genitourinary Genitourinary ED: Reports none, dysuria and urinary frequency; Denies abdominal discomfort, anuria, genital pain or polyuria Musculoskeletal Musculoskeletal: Reports none; Denies arthralgias, back pain, difficulty walking, extremity pain, muscle weakness or myalgias Integumentary Reports none; Denies abscess or rash Neurologic Neurologic: Reports none; Denies abnormal gait, confusion, focal weakness, frequent falls, headache(s), loss of vision, numbness, paresthesias, radicular pain, vertigo or weakness Psychiatric Psychiatric: Reports systems reviewed and no addt'l complaints, except as documented and none; Denies behavioral changes, confusion, difficulty concentrating, hallucinations, suicidal ideation, tactile hallucinations or visual hallucinations Endocrine Endocrinology: Denies none, cold intolerance, excessive sweating, fatigue or heat intolerance Hematologic/Lymphatic Hematologic/Lymphatic: Reports none; Denies anemia, easy bleeding or easy bruising Allergic/Immunologic Allergic/Immunologic ED: Denies as per HPI, none, lip swelling, mouth swelling, throat swelling, tongue swelling or hives EXAM Physical Exam Const Vital Signs: 08/20/21 19:16 08/20/21 21:36 08/20/21 21:50 Temperature 102.3 F H 103.1 F H Temperature Source Temporal Oral Pulse Rate 119 H 94 Respiratory Rate 16 18 Blood Pressure 134/90 H 159/94 H Blood Pressure Mean 104 115 Pulse Ox 98 98 Oxygen Delivery Method Room Air Room Air Positive well nourished and well developed General Appearance ED: well developed and NAD HEENT Reports TM's clear and moist mucous membranes normocephalic and atraumatic; Negative for trauma or tenderness Tympanic Membrane ED: Yes TM's clear Eyes PERRL and EOMs intact bilaterally General Eye ED: Negative for pale conjunctiva or scleral icterus Neck no lymphadenopathy, supple and no JVD General: Negative for tenderness Chest Wall inspection of chest normal and palpation of chest normal Chest: Negative for tenderness Resp normal respiratory effort and clear to auscultation bilaterally Effort and Inspection: Negative for respiratory distress or pain with movement Auscultation: Negative for rhonchi, wheezes or diminished lung sounds Cardio regular rate, regular rhythm, S1 normal heart sound, S2 normal heart sound and no murmurs Peripheral Pulses: pulses 2+ throughout GI normal to inspection, nondistended, normoactive bowel sounds, soft to palpation, non-distended and no masses GI Narrative: Patient with some tenderness to the left upper quadrant with some guarding. There is no rebound, rigidity, or frail signs. She does have some mild CVA tenderness on the left. Back/Spine no CVA tenderness and no thoracic nor lumbar tenderness Extremity normal to inspection General Extremety ED: Negative for edema General Extremity: Negative for edema Neuro oriented x3, CN's II-XII intact bilaterally, no sensory deficits noted and gait normal Sensorium / Orientation: awake, alert, oriented to person, oriented to place and oriented to time Motor Exam: strength 5/5 throughout and strength abnormal Psych mental status grossly normal Skin no rashes or lesions noted and no wounds MDM MDM MDM Narrative Medical decision making narrative: IV line established on arrival. Patient was given morphine and Zofran as well as a liter of same fluid bolus. Patient had a normal white blood cell count. Urinalysis still positive for 500 cassette esterase and 1025 WBCs. Patient was ordered Rocephin [address] scan of the abdomen pelvis was unremarkable. Blood cultures ordered as well as urine culture. Patient's temperature went up to 103 and she was given Tylenol p.o. Patient also noted to have low potassium and magnesium therefore I ordered IV potassium and magnesium as well. Patient continues to complain of a headache and pain in her left side. Case will be discussed with hospitalist evaluate for admission for diagnosis of UTI and early pyelonephritis. Urine culture sent yesterday is growing out gram-negative rods. Lab Data Attestation: I reviewed the patient's lab results. Labs: Laboratory Results - last 24 hr 08/20/21 08/20/21 08/20/21 19:35 19:35 19:35 WBC 6.4 RBC 4.53 Hgb 13.7 Hct 41.2 MCV 90.9 MCH 30.2 MCHC 33.3 RDW Std Deviation 44.8 H RDW Coeff of Jim 13.2 Plt Count 205 MPV 11.7 Immature Gran % (Auto) 0.300 Neut % (Auto) 81.0 H Lymph % (Auto) 11.3 L [place] % (Auto) 6.1 Eos % (Auto) 0.8 Baso % (Auto) 0.5 Absolute Neuts (auto) 5.2 Absolute Lymphs (auto) 0.72 L Nucleated RBC % 0 Sodium Cancelled Potassium Cancelled Chloride Cancelled Carbon Dioxide Cancelled Anion Gap Cancelled BUN Cancelled Creatinine Cancelled Estim Creat Clear Calc Cancelled Est GFR (MDRD) Af Amer Cancelled Est GFR (MDRD) Non-Af Cancelled BUN/Creatinine Ratio Cancelled Glucose Cancelled Lactic Acid Calcium Cancelled Magnesium Urine Color Yellow Urine Clarity Sl. Cloudy Urine pH 5.0 Ur Specific [place] 1.015 Urine Protein 30 H Urine Glucose (UA) Normal Urine Ketones Negative Urine Occult Blood 150 H Urine Nitrite Negative Urine Bilirubin Negative Urine Urobilinogen Normal Ur Leukocyte Esterase 500 H Urine RBC 0-5 SEEN Urine WBC 10-25 SEEN Ur Squamous Epith Cells 0-5 SEEN Urine Bacteria RARE Urine Mucus 0 SEEN 08/20/21 08/20/21 08/20/21 19:51 21:35 21:35 WBC RBC Hgb Hct MCV MCH MCHC RDW Std Deviation RDW Coeff of Jim Plt Count MPV Immature Gran % (Auto) Neut % (Auto) Lymph % (Auto) [place] % (Auto) Eos % (Auto) Baso % (Auto) Absolute Neuts (auto) Absolute Lymphs (auto) Nucleated RBC % Sodium 137 Potassium 3.1 L Chloride 103 Carbon Dioxide 27.0 Anion Gap 7 BUN 7 Creatinine 0.64 Estim Creat Clear Calc 100.90 Est GFR (MDRD) Af Amer 132 Est GFR (MDRD) Non-Af 109 BUN/Creatinine Ratio 10.9 Glucose 94 Lactic Acid 1.2 Calcium 8.6 Magnesium 1.3 L Urine Color Urine Clarity Urine pH Ur Specific [place] Urine Protein Urine Glucose (UA) Urine Ketones Urine Occult Blood Urine Nitrite Urine Bilirubin Urine Urobilinogen Ur Leukocyte Esterase Urine RBC Urine WBC Ur Squamous Epith Cells Urine Bacteria Urine Mucus Radiography Diagnostic Testing: Clinical Impression(s) from Imaging Studies Abdomen/Pelvis CT 08/20/21 19:28 IMPRESSION: Left nephrolithiasis. No hydronephrosis or ureter stone. Otherwise similar findings. Multiple bowel surgeries and prominent distention of much of the colon without evidence of high-grade bowel obstruction. Fatty liver and hepatomegaly. IUD, mildly rotated with respect to the uterus. Presumed cyst in the right ovary, not suspicious by size criteria and mildly smaller compared to July 24, 2020. Electronically Signed: Carolin Hoyos MD at 20:48 EDT , Discharge Plan Triage Chief Complaint: Flank Pain ED Provider: Nahum Montesinos Dx/Rx/DC Orders Clinical Impression: UTI (urinary tract infection), Hypomagnesemia, Acute hypokalemia, Sepsis Prescriptions: No Action magnesium L-lactate 84 mg tablet extended release 252 mg PO TID RF: 0 ergocalciferol (vitamin D2) 50,000 UNIT capsule 50,000 unit PO MOTUWETH RF: 0 calcium carbonate 500 MG tablet 500 mg PO TIDCM RF: 0 enoxaparin [Lovenox] 80 mg/0.8 mL Syringe 70 mg SUBCUT DAILY RF: 0 cephalexin 500 mg capsule 500 mg PO Q6 7 Days Qty: 28 RF: 0 Primary Care Provider: José Luis Motley Referrals: José Luis Motley MD [Primary Care Provider] - Disposition Disposition: Acute Care [facility]
[2021-08-20 19:52] LABS: Mucous, Urine 0 SEEN /hpf (<or=2+)
[2021-08-20 19:56] LABS: Color, Urine Yellow (Yellow); Glucose, Dipstick Normal (Normal); Ketone-Dipstick Negative (Negative); Leukocyte Esterase-Dipstick 500 /ul (Negative); Nitrite-Dipstick Negative (Negative); Occult Blood-Urine 150 /ul (Negative); Protein-Dipstick 30 mg/dl (Negative); Specific Gravity, Urine 1.015 (1.002-1.030); Urine Bilirubin Dipstick Negative (Negative); Urine Clarity Sl. Cloudy (Clear); Urine Urobilinogen Normal (Normal)
[2021-08-20 19:58] LABS: Absolute Lymphocyte Count 0.72 X10^3/uL (0.83-4.51); Absolute Neutrophil Count 5.2 X10^3/uL (2.0-7.7); Basophil# 0.03 X10^3/uL; Basophil% 0.5 % (0-1); Eosinophil# 0.05 X10^3/uL; Eosinophils% 0.8 % (0-5); Hematocrit 41.2 % (37-47); Hemoglobin 13.7 g/dL (12.0-15.0); Lymphocyte # 0.72 X10^3/ul (0.83-4.51); Lymphocyte % 11.3 % (19-41); Mean Corp Hgb Conc 33.3 g/dL (32-36); Mean Corpuscular Hgb 30.2 pg (27.0-32.0); Mean Corpuscular Volume 90.9 fL (81-99); Mean Platelet Vol. 11.7 fl (6.2-12.0); Monocyte# 0.39 X10^3/uL; Monocyte% 6.1 % (0-10); NRBC Flagged by Analyzer 0 % (0-5); Neutrophil # 5.16 X10^3/uL (2.7-7.7); Platelet Count 205 K/mm3 (150-450); RBC Distribution Width CV 13.2 % (11.6-14.6); RBC Distribution Width SD 44.8 fl (35.1-43.9); Red Blood Count 4.53 M/mm3 (4.2-5.4); White Blood Count 6.4 K/mm3 (4.4-11.0)
[2021-08-20] MEDS: Morphine 4 MG/ML Syringe IV (20:12)
[2021-08-20] MEDS: 0.9% Normal Saline 1,000 ML 1000 ML IV (20:12)
[2021-08-20] MEDS: Ondansetron 4 MG/2 ML Vial IV (20:12)
[2021-08-20 20:28] LABS: Lactic Acid 1.2 mmol/L (0.4-1.9)
[2021-08-20 21:09] LABS: Bacteria RARE /hpf (None Seen); Red Blood Cells-Urine 0-5 SEEN /hpf (0-5); Squamous Epithelial Cells - UA 0-5 SEEN /hpf (5-10); White Blood Cells 10-25 SEEN /hpf (0-5)
[2021-08-20 21:36] VITALS: BP 159/94; PULSE 94; RESP 18; O2SAT 98
[2021-08-20 21:50] VITALS: TEMP 39.5
[2021-08-20] MEDS: Acetaminophen 325 MG Tablet 650 MG PO (21:52)
[2021-08-20 22:06] LABS: Magnesium 1.3 mg/dL (1.6-2.6)
[2021-08-20 22:09] LABS: Anion Gap 7 (5-15); BUN 7 mg/dL (7-18); BUN/Creat Ratio 10.9 RATIO (10-20); Calcium,Total 8.6 mg/dL (8.5-10.1); Chloride 103 mmol/L (98-107); Creatinine, Serum 0.64 mg/dL (0.55-1.02); EST Glomerular Filtration Rate 109 mL/min (>60); Est Glom Filt Rate - Afr Amer 132 mL/min (>60); Glucose 94 mg/dL (74-106); Potassium 3.1 mmol/L (3.5-5.1); Sodium Level 137 mmol/L (136-145)
--- NOTE | 2021-08-20 22:27 | PCM.HP.STD ---
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 Associated with her symptoms is a subjective fever; malaise; left flank pain; headache at the right side of her head and photophobia. Also she has nausea. Patient was also at the emergency department with the same symptoms a day before his presentation. She was treated for hypomagnesemia and hypokalemia and sent home on Keflex for UTI. She report that with the Keflex she had bloating and dyspepsia. During the first time she has had above symptoms from the Keflex. Patient report that about a month ago she was diagnosed with a kidney stone and was supposed to follow-up with a urologist at [place], [place] but the urologist got an emergency and could not see her. She reports a history of frequent UTI. FORMERLY [facility], 1928–1983 Medical History Blood clotting disorder Kidney stone Protein C deficiency Protein S deficiency Short gut syndrome Home Medications ergocalciferol (vitamin D2) 50,000 unit PO MOTUWETH 10/09/14 [History Last Taken 04/21/19] calcium carbonate 500 mg PO TIDCM 04/27/16 [History Last Taken 04/21/19] magnesium L-lactate 84 mg tablet,extended release 252 mg PO TID tab 01/24/18 [History Last Taken 04/21/19] enoxaparin [Lovenox] 70 mg SUBCUT DAILY 05/11/21 [History Last Taken Unknown] cephalexin 500 mg PO Q6 7 Days #28 cap 08/19/21 [Rx Last Taken Unknown] Allergy/AdvReac Type Severity Reaction Status Date / Time adhesive Allergy Itching Verified 08/20/21 19:20 amoxicillin [Amoxicillin] Allergy Hives Verified 08/20/21 19:20 Penicillins Allergy Hives Verified 08/20/21 19:20 Family History Grandmother Diabetes Heart disease Mother Heart disease Grandfather Lung cancer Liver cancer Brain cancer Surgical History History of removal of ovarian cyst Hx of cholecystectomy S/P hernia repair STEPS procedure Social History Smoking Status: Current every day smoker tobacco type: cigarettes alcohol intake: current alcohol intake frequency: holidays/special occasions only substance use type: does not use caffeine: Yes what type of physical activity do you participate in: none seatbelt use: always do you feel safe at home: Yes additional social history: - Lul Patient works with [employer] Narrative Constitutional: Reports subjective fever; chills; diaphoresis and anorexia. Eyes: Reports photophobia. Denies blurry vision, change in eye color, change in vision, discharge from eye(s), double vision, erythema, loss of vision or other HEENT: Reports headache. Denies abnormal hearing, dysphagia, ear pain, epistaxis, hearing loss, nasal congestion, nasal discharge, post nasal drip, sinus pressure, sore throat or other Cardiovascular: Denies chest pain or palpitations. Denies dyspnea on exertion, orthopnea and paroxysmal nocturnal dyspnea Respiratory/Chest: Denies cough, excessive phlegm production, shortness of breath with exertion and wheezing Gastrointestinal: Reports nausea, abdominal bloating and dyspepsia. Reports chronic diarrhea from short gut syndrome . Denies constipation. Denies vomiting. Denies melena or hematemesis. Genitourinary: Reports dysuria; decreased frequency of urination and urinary urgency. Denies hematuria. Musculoskeletal: Reports left flank pain. Denies arthralgias, joint pain, joint stiffness, joint swelling, myalgias, neck pain or other Neurologic: Denies abnormal gait, abnormal speech, confusion, disequilibrium, dizziness, focal weakness, numbness, paresthesias, seizure-like activity, seizures, syncope, tingling, tremor(s) or other Psychiatric: Denies anxiety, depression, homicidal ideation, suicidal ideation or other Endocrinology: Denies change in body appearance, heat intolerance, polydipsia, polyuria or other Hematologic/Lymphatic: Denies anemia, easy bleeding, easy bruising, lymphadenopathy or other Integumentary: Denies rashes Allergic/Immunologic: Denies rhinitis, hives, eczema, or other Vital Signs Vital Signs Vital Signs: 08/20/21 19:16 08/20/21 21:36 08/20/21 21:50 Temperature 102.3 F H 103.1 F H Temperature Source Temporal Oral Pulse Rate 119 H 94 Respiratory Rate 16 18 Blood Pressure 134/90 H 159/94 H Blood Pressure Mean 104 115 Pulse Ox 98 98 Oxygen Delivery Method Room Air Room Air Weight Weight: 68.946 kg Body Mass Index (BMI) 26.1 Physical Exam Narrative General: Patient with her palms on her forehead complaining of headache and with light off in ED room complaining of photophobia. Head: Normocephalic, atraumatic, no tenderness Eyes: Vision is grossly intact. EOMI ENT, no trauma, moist mucous membranes, no rhinorrhea Neck: Nontender, full range of motion, no spinal tenderness, deformities, step-off CVS: Tachycardia. S1-S2 present. No murmur, gallop or rub. Respiratory : clear to auscultation bilaterally, chest wall nontender, no wheezing Abdomen: Soft, nontender, nondistended, normal bowel sounds, no masses : Deferred Back: Nontender, no CVA tenderness, no midline spinal tenderness, deformities, step-offs Extremities: Nontender full range of motion, no trauma Skin: Normal color, no trauma, abrasions Neuro: Alert, oriented, cranial nerves II through XII grossly intact. Psychiatry: Normal mood. Normal affect. Not depressed. Not anxious. Results Lab / Micro Data Result Diagrams: 08/20/21 19:35 08/20/21 21:35 Labs: Laboratory Results - last 24 hr 08/20/21 19:35: WBC 6.4, RBC 4.53, Hgb 13.7, Hct 41.2, MCV 90.9, MCH 30.2, MCHC 33.3, RDW Std Deviation 44.8 H, RDW Coeff of Jim 13.2, Plt Count 205, MPV 11.7, Immature Gran % (Auto) 0.300, Neut % (Auto) 81.0 H, Lymph % (Auto) 11.3 L, [place] % (Auto) 6.1, Eos % (Auto) 0.8, Baso % (Auto) 0.5, Absolute Neuts (auto) 5.2, Absolute Lymphs (auto) 0.72 L, Nucleated RBC % 0 08/20/21 19:35: Sodium Cancelled, Potassium Cancelled, Chloride Cancelled, Carbon Dioxide Cancelled, Anion Gap Cancelled, BUN Cancelled, Creatinine Cancelled, Estim Creat Clear Calc Cancelled, Est GFR (MDRD) Af Amer Cancelled, Est GFR (MDRD) Non-Af Cancelled, BUN/Creatinine Ratio Cancelled, Glucose Cancelled, Calcium Cancelled 08/20/21 19:35: Urine Color Yellow, Urine Clarity Sl. Cloudy, Urine pH 5.0, Ur Specific [place] 1.015, Urine Protein 30 H, Urine Glucose (UA) Normal, Urine Ketones Negative, Urine Occult Blood 150 H, Urine Nitrite Negative, Urine Bilirubin Negative, Urine Urobilinogen Normal, Ur Leukocyte Esterase 500 H, Urine RBC 0-5 SEEN, Urine WBC 10-25 SEEN, Ur Squamous Epith Cells 0-5 SEEN, Urine Bacteria RARE, Urine Mucus 0 SEEN 08/20/21 19:51: Lactic Acid 1.2 08/20/21 21:35: Magnesium 1.3 L 08/20/21 21:35: Sodium 137, Potassium 3.1 L, Chloride 103, Carbon Dioxide 27.0, Anion Gap 7, BUN 7, Creatinine 0.64, Estim Creat Clear Calc 100.90, Est GFR (MDRD) Af Amer 132, Est GFR (MDRD) Non-Af 109, BUN/Creatinine Ratio 10.9, Glucose 94, Calcium 8.6 Radiology Impression Abdomen/Pelvis CT 08/20/21 19:28 IMPRESSION: Left nephrolithiasis. No hydronephrosis or ureter stone. Otherwise similar findings. Multiple bowel surgeries and prominent distention of much of the colon without evidence of high-grade bowel obstruction. Fatty liver and hepatomegaly. IUD, mildly rotated with respect to the uterus. Presumed cyst in the right ovary, not suspicious by size criteria and mildly smaller compared to July 24, 2020. Electronically Signed: Carolin Hoyos MD at 20:48 EDT , Assessment & Plan Assessment/Plan (1) UTI (urinary tract infection): QUALIFIERS: Hematuria presence: without hematuria Urinary tract infection type: site unspecified Qualified Code(s): N39.0 - Urinary tract infection, site not specified (2) Acute hypokalemia: PLAN: Acute infected kidney stone/UTI SIRS criteria: Heart rate of more than 90; temperature of more than 100.4 Fahrenheit qSOFA is less than 2; sepsis ruled out. Abdomen/pelvis CT was visualized and independent interpreted and agree with allege interpretation above. Urine culture on 08/19/2021 reviewed: Preliminary results with GNR lactose informatics specialist. Repeat urine culture order at ED on presentation. Urinalysis done on 08/19/2021; and on 08/20/2021 were both reviewed: Both were abnormal. Can not rule out early pyonephritis Received ceftriaxone the emergency department and continued. Supportive treatment with IV fluids; IV morphine as needed and IV Zofran. CBC showed normal WBC but with neutrophilia; and lymphopenia; trend CBC. Consider discussion with urology or referral to urology after discharge. Acute hypokalemia Potassium on presentation was 3.1. IV potassium supplementation 40 mEq ordered emergency department. Normal saline with potassium limitation ordered while inpatient. Trend BMP Hypomagnesemia Magnesium of 1.3 on presentation. Received magnesium at the emergency department. Continue home magnesium supplementation. Trend Magnesium Migraine headache Fioricet ordered Tobacco abuse Counselled. Patient has allergy to adhesive. Nicotine patch not prescribed. DVT prophylaxis: On home subcutaneous Lovenox for history of DVT and thrombophilia. Lovenox continued. Charges/Coding Visit Charges Inpatient E&M: 65522 Init Hosp L3
[2021-08-20] MEDS: Ceftriaxone 1 GM/50 ML BAG IV (22:34)
[2021-08-20 22:43] VITALS: BP 156/92; PULSE 95; RESP 18; TEMP 38.8; O2SAT 100
[2021-08-20 23:25] VITALS: BMI 28.3
[2021-08-20 23:26] VITALS: BP 133/89; PULSE 92; RESP 16; TEMP 38.6; O2SAT 96
[2021-08-21] VITALS (8 sets, daily range): BP systolic 106–133; BP diastolic 82–90; PULSE 76–87; RESP 16; TEMP 36.8–39.2; O2SAT 95–97
[2021-08-21] MEDS: Potassium Chloride 10mEq/100mL 10 MEQ/100 ML IV.SOLN. 100 MEQ IV BOLUS ×4 (00:01→03:47)
[2021-08-21] MEDS: 0.9% Saline Lock 10 ML Syringe IV ×4 (00:02→21:18)
[2021-08-21] MEDS: Enoxaparin 80 MG/0.8 ML Syringe 70 MG SC ×2 (00:17→09:01)
[2021-08-21] MEDS: Morphine 2 MG/ML Syringe IV (00:17)
[2021-08-21] MEDS: Acetaminophen/Butalbital/Caffe 1 Tablet PO ×4 (00:18→23:05)
[2021-08-21] MEDS: KCL 20MEQ in 0.9% NS 20 MEQ/1,000 ML IV.SOLN. 100 MEQ IV (01:10)
[2021-08-21] MEDS: Acetaminophen 325 MG Tablet 650 MG PO ×2 (03:50→21:18)
--- NOTE | 2021-08-21 03:54 | NURSING ---
pt temp. 102.5 at this time. Tylenol given and ice packs to her armpit. cold wash cloth applied to pts forehead.
[2021-08-21] MEDS: Ketorolac 15 MG/ML Vial IV ×3 (04:55→21:14)
[2021-08-21 06:07] LABS: Absolute Lymphocyte Count 0.59 X10^3/uL (0.83-4.51); Absolute Neutrophil Count 2.4 X10^3/uL (2.0-7.7); Basophil# 0.02 X10^3/uL; Basophil% 0.6 % (0-1); Eosinophil# 0.01 X10^3/uL; Eosinophils% 0.3 % (0-5); Hematocrit 35.2 % (37-47); Hemoglobin 11.8 g/dL (12.0-15.0); Lymphocyte # 0.59 X10^3/ul (0.83-4.51); Lymphocyte % 16.9 % (19-41); Mean Corp Hgb Conc 33.5 g/dL (32-36); Mean Corpuscular Hgb 30.1 pg (27.0-32.0); Mean Corpuscular Volume 89.8 fL (81-99); Mean Platelet Vol. 9.7 fl (6.2-12.0); Monocyte# 0.49 X10^3/uL; NRBC Flagged by Analyzer 0 % (0-5); Neutrophil # 2.37 X10^3/uL (2.7-7.7); Neutrophil % 67.9 % (47-70); POSITIVE DIFFERENTIAL YES; Platelet Count 146 K/mm3 (150-450); RBC Distribution Width CV 13.2 % (11.6-14.6); RBC Distribution Width SD 43.4 fl (35.1-43.9); Red Blood Count 3.92 M/mm3 (4.2-5.4); White Blood Count 3.5 K/mm3 (4.4-11.0)
[2021-08-21 06:15] LABS: Differential Indicated SCAN CRITERIA MET
[2021-08-21 06:36] LABS: Anion Gap 6 (5-15); BUN 3 mg/dL (7-18); BUN/Creat Ratio 5.5 RATIO (10-20); Calcium,Total 7.7 mg/dL (8.5-10.1); Chloride 104 mmol/L (98-107); Creatinine, Serum 0.54 mg/dL (0.55-1.02); EST Glomerular Filtration Rate 132 mL/min (>60); Est Glom Filt Rate - Afr Amer 159 mL/min (>60); Estimated Creatinine Clearance 119.59 ml/min; Glucose 125 mg/dL (74-106); Potassium 3.1 mmol/L (3.5-5.1); Sodium Level 136 mmol/L (136-145)
[2021-08-21] MEDS: Calcium Carbonate 500 MG Tablet PO ×3 (07:36→16:19)
[2021-08-21 07:55] LABS: Magnesium 1.7 mg/dL (1.6-2.6)
[2021-08-21] MEDS: Ondansetron 4 MG/2 ML Vial IV (08:56)
[2021-08-21] MEDS: Ergocalciferol 1.25 MG (50, 000 UNIT) Capsule PO (09:01)
[2021-08-21] MEDS: Ceftriaxone 1 GM/50 ML BAG IV (09:03)
--- NOTE | 2021-08-21 09:27 | PN.HOSP_ITS ---
Subjective Subjective Feels much better today than she did when she first came in. She does have a leukopenia which is also consistent with infection. Objective Data Objective Data Vital Signs: Vital Signs Temp Pulse Resp BP Pulse Ox 98.7 F 78 16 106/88 H 96 08/21/21 07:21 08/21/21 07:21 08/21/21 07:21 08/21/21 07:21 08/21/21 07:21 Oxygen Delivery Method Room Air Weight: 164 lb 14.492 oz Body Mass Index (BMI) 28.3 Intake & Output: Intake and Output for Last 24 Hours 08/20/21 08/21/21 08/22/21 03:59 03:59 03:59 Intake Total 1454 / 1454 100 / 100 Balance 1454 / 1454 100 / 100 Lab / Micro Data Result Diagrams: 08/21/21 05:35 08/21/21 05:35 Labs: Laboratory Results - last 24 hr 08/20/21 19:35: WBC 6.4, RBC 4.53, Hgb 13.7, Hct 41.2, MCV 90.9, MCH 30.2, MCHC 33.3, RDW Std Deviation 44.8 H, RDW Coeff of Jim 13.2, Plt Count 205, MPV 11.7, Immature Gran % (Auto) 0.300, Neut % (Auto) 81.0 H, Lymph % (Auto) 11.3 L, [place] % (Auto) 6.1, Eos % (Auto) 0.8, Baso % (Auto) 0.5, Absolute Neuts (auto) 5.2, Absolute Lymphs (auto) 0.72 L, Nucleated RBC % 0 08/20/21 19:35: Sodium Cancelled, Potassium Cancelled, Chloride Cancelled, Carbon Dioxide Cancelled, Anion Gap Cancelled, BUN Cancelled, Creatinine Cancelled, Estim Creat Clear Calc Cancelled, Est GFR (MDRD) Af Amer Cancelled, Est GFR (MDRD) Non-Af Cancelled, BUN/Creatinine Ratio Cancelled, Glucose Cancelled, Calcium Cancelled 08/20/21 19:35: Urine Color Yellow, Urine Clarity Sl. Cloudy, Urine pH 5.0, Ur Specific [place] 1.015, Urine Protein 30 H, Urine Glucose (UA) Normal, Urine Ketones Negative, Urine Occult Blood 150 H, Urine Nitrite Negative, Urine Bilirubin Negative, Urine Urobilinogen Normal, Ur Leukocyte Esterase 500 H, Urine RBC 0-5 SEEN, Urine WBC 10-25 SEEN, Ur Squamous Epith Cells 0-5 SEEN, Urine Bacteria RARE, Urine Mucus 0 SEEN 08/20/21 19:51: Lactic Acid 1.2 08/20/21 21:35: Magnesium 1.3 L 08/20/21 21:35: Sodium 137, Potassium 3.1 L, Chloride 103, Carbon Dioxide 27.0, Anion Gap 7, BUN 7, Creatinine 0.64, Estim Creat Clear Calc 100.90, Est GFR (MDR D) Af Amer 132, Est GFR (MDRD) Non-Af 109, BUN/Creatinine Ratio 10.9, Glucose 94, Calcium 8.6 08/21/21 05:35: WBC 3.5 L, RBC 3.92 L, Hgb 11.8 L, Hct 35.2 L, MCV 89.8, MCH 30.1, MCHC 33.5, RDW Std Deviation 43.4, RDW Coeff of Jim 13.2, Plt Count 146 L, MPV 9.7, Immature Gran % (Auto) 0.300, Neut % (Auto) 67.9, Lymph % (Auto) 16.9 L , [place] % (Auto) 14.0 H, Eos % (Auto) 0.3, Baso % (Auto) 0.6, Absolute Neuts (auto) 2.4, Absolute Lymphs (auto) 0.59 L, Nucleated RBC % 0, Diff Path Review September08/21/21 05:35: Sodium 136, Potassium 3.1 L, Chloride 104, Carbon Dioxide 26.0, Anion Gap 6, BUN 3 L, Creatinine 0.54 L, Estim Creat Clear Calc 119.59, Est GFR (MDRD) Af Amer 159, Est GFR (MDRD) Non-Af 132, BUN/Creatinine Ratio 5.5 L, Glucose 125 H, Calcium 7.7 L 08/21/21 05:35: Phosphorus 2.0 L, Magnesium 1.7 Radiography Diagnostic Testing: Radiology Impression Abdomen/Pelvis CT 08/20/21 19:28 IMPRESSION: Left nephrolithiasis. No hydronephrosis or ureter stone. Otherwise similar findings. Multiple bowel surgeries and prominent distention of much of the colon without evidence of high-grade bowel obstruction. Fatty liver and hepatomegaly. IUD, mildly rotated with respect to the uterus. Presumed cyst in the right ovary, not suspicious by size criteria and mildly smaller compared to July 24, 2020. Electronically Signed: Carolin Hoyos MD at 20:48 EDT , Physical Exam Const alert, oriented x3 and no apparent distress General Appearance: cooperative HEENT normocephalic Mouth: dry mucous membranes Eyes PERRL, EOMs intact bilaterally and conjunctivae normal Neck supple and no JVD Resp normal respiratory effort, no retractions, no use of accessory muscles and clear to auscultation bilaterally Auscultation: Negative for crackles, rales, rhonchi or wheezes Cardio regular rate, regular rhythm, S1 normal heart sound, S2 normal heart sound and no murmurs GI soft to palpation, non-tender and non-distended; Negative for hepatosplenomegaly Extremity no clubbing, cyanosis or edema Skin no rashes or lesions noted Neuro no focal motor deficits and no sensory deficits noted Psych affect normal Appearance: appropriate Assessment & Plan Assessment/Plan (1) UTI (urinary tract infection): QUALIFIERS: Urinary tract infection type: site unspecified Hematuria presence: without hematuria Qualified Code(s): N39.0 - Urinary tract infection, site not specified PLAN: 1. E. coli UTI without sepsis/migraine ?Continue with Rocephin ?Continue with IV fluids and will make adjustments to her electrolytes given that she has a history of short gut ?Urine culture with pansensitive E. coli ?She does have an outpatient neurologist that she can follow-up with them in [place], her kidney stone is not in the ureter but in her renal pelvis ?Headaches feeling better, the Fioricet is available ?She did describe an intolerance to Keflex in terms of dyspepsia and GI upset this may have been related to her acute UTI however she may need a change in her antibiotic on discharge 2. Short gut syndrome with multiple electrolyte abnormalities ?We will continue to replace her electrolytes, including her phosphorus and her magnesium ?Recheck in the morning 3. History of protein C&S deficiency ?Continue with her Lovenox which is a home medication 4. Tobacco abuse ?Discussed cessation ?Nicotine patch available if necessary DVT: Lovenox Charges/Coding Visit Charges Inpatient E&M: 00350 Subs Hosp L2
[2021-08-21] MEDS: 0.9% Normal Saline 1,000 ML 75 ML IV ×2 (10:27→23:06)
--- NOTE | 2021-08-21 11:30 | CASEMGMT ---
DOMINGO LUIS Assessment: Face to Face with pt for initial transition planning/care coordination assessment. DOMINGO LUIS introduced self and role at [facility], pt voices understanding and consents to assessment. Pt is A/O x4 and answers all questions appropriately at this time. Pt lying in bed in no distress. Care providers, pharmacy, and demographics verified/updated. Admitting Dx: Acute UTI PCP:Tolu Specialists:BRYAN Shukla in [place]; tyra Kaba doctor Preferred Pharmacy: [facility] Insurance: [facility] Prescription Benefit: yes LW/HPOA: Pt has a LW/DPOA on file at [facility]. Her DPOA is listed as Lul Conteh. Pt states this is her ex and she does not want him to be her DPOA. She is aware of the need to complete these documents again to update. LNOK: Lynsey Vega, Dtr; Floridalma Conteh, mother Living Arrangements: Pt lives with dtr, mother and father in a mobile home with 5 steps to enter with a rail on both sides. Pt reports she is I in ADL's and denies concerns at home. Transportation: Pt drives self and denies concerns with transportation. DME/HHC/SNF: Pt denies having any DME in the home, has had HHC in the past but is unsure of the name of the agency. Pt denies SNF stays. Pt states no concerns with going home at time of dc. Pt states no further concerns/needs. CM to follow. Advised pt to ask CM if any further question/concerns/needs arise, voices understanding. Pt Goal: Home Plan: Home
[2021-08-21 12:34] LABS: Pathologist Review Reviewed
--- NOTE | 2021-08-21 15:21 | NURSING ---
pt called out, but was resting with eyes closed
[2021-08-22 02:51] VITALS: BP 141/88; PULSE 66; RESP 16; TEMP 36.6; O2SAT 100
[2021-08-22 05:18] LABS: Absolute Lymphocyte Count 0.74 X10^3/uL (0.83-4.51); Basophil# 0.01 X10^3/uL; Basophil% 0.3 % (0-1); Eosinophil# 0.03 X10^3/uL; Hematocrit 40.3 % (37-47); Hemoglobin 13.3 g/dL (12.0-15.0); Lymphocyte # 0.74 X10^3/ul (0.83-4.51); Mean Platelet Vol. 9.9 fl (6.2-12.0); Monocyte# 0.31 X10^3/uL; Monocyte% 10.1 % (0-10); NRBC Flagged by Analyzer 0 % (0-5); Neutrophil # 1.97 X10^3/uL (2.7-7.7); Platelet Count 149 K/mm3 (150-450); RBC Distribution Width CV 13.3 % (11.6-14.6); RBC Distribution Width SD 45.1 fl (35.1-43.9); Red Blood Count 4.43 M/mm3 (4.2-5.4); White Blood Count 3.1 K/mm3 (4.4-11.0)
[2021-08-22] MEDS: Acetaminophen/Butalbital/Caffe 1 Tablet PO (05:27)
[2021-08-22 05:38] LABS: Anion Gap 5 (5-15); BUN 5 mg/dL (7-18); BUN/Creat Ratio 8.8 RATIO (10-20); Calcium,Total 7.6 mg/dL (8.5-10.1); Chloride 104 mmol/L (98-107); Creatinine, Serum 0.57 mg/dL (0.55-1.02); EST Glomerular Filtration Rate 124 mL/min (>60); Est Glom Filt Rate - Afr Amer 150 mL/min (>60); Estimated Creatinine Clearance 113.29 ml/min; Glucose 87 mg/dL (74-106); Magnesium 1.7 mg/dL (1.6-2.6); Potassium 3.3 mmol/L (3.5-5.1); Sodium Level 136 mmol/L (136-145)
[2021-08-22 05:51] LABS: Phosphorus 2.5 mg/dL (2.5-4.9)
--- NOTE | 2021-08-22 07:41 | PN.HOSP_ITS ---
Objective Data Objective Data Vital Signs: Vital Signs Temp Pulse Resp BP Pulse Ox 97.8 F 66 16 141/88 H 100 08/22/21 02:51 08/22/21 02:51 08/22/21 02:51 08/22/21 02:51 08/22/21 02:51 Oxygen Delivery Method Room Air Weight: 74.8 kg Body Mass Index (BMI) 28.3 Intake & Output: Intake and Output for Last 24 Hours 08/20/21 08/21/21 08/22/21 23:59 23:59 23:59 Intake Total 1050 / 1050 2640.08 / 2640.08 Balance 1050 / 1050 2640.08 / 2640.08 Lab / Micro Data Result Diagrams: 08/22/21 04:29 08/22/21 04:29 Labs: Laboratory Results - last 24 hr 08/21/21 05:35: Diff Path Review Reviewed 08/21/21 05:35: Phosphorus 2.0 L, Magnesium 1.7 08/22/21 04:29: Sodium 136, Potassium 3.3 L, Chloride 104, Carbon Dioxide 27.0, Anion Gap 5, BUN 5 L, Creatinine 0.57, Estim Creat Clear Calc 113.29, Est GFR (MDRD) Af Amer 150, Est GFR (MDRD) Non-Af 124, BUN/Creatinine Ratio 8.8 L, Glucose 87, Calcium 7.6 L, Magnesium 1.7 08/22/21 04:29: WBC 3.1 L, RBC 4.43, Hgb 13.3, Hct 40.3, MCV 91.0, MCH 30.0, MCHC 33.0, RDW Std Deviation 45.1 H, RDW Coeff of Jim 13.3, Plt Count 149 L, MPV 9.9, Immature Gran % (Auto) 0.600, Neut % (Auto) 64.0, Lymph % (Auto) 24.0, [place] % (Auto) 10.1 H, Eos % (Auto) 1.0, Baso % (Auto) 0.3, Absolute Neuts (auto) 2.0, Absolute Lymphs (auto) 0.74 L, Nucleated RBC % 0 08/22/21 04:29: Phosphorus 2.5 Assessment & Plan Assessment/Plan (1) UTI (urinary tract infection): QUALIFIERS: Urinary tract infection type: site unspecified Hematuria presence: without hematuria Qualified Code(s): N39.0 - Urinary tract infection, site not specified PLAN: 1. E. coli UTI without sepsis/migraine ?Continue with Rocephin ?Continue with IV fluids and will make adjustments to her electrolytes given that she has a history of short gut ?Urine culture with pansensitive E. coli ?She does have an outpatient neurologist that she can follow-up with them in [place], her kidney stone is not in the ureter but in her renal pelvis ?Headaches feeling better, the Fioricet is available ?She did describe an intolerance to Keflex in terms of dyspepsia and GI upset this may have been related to her acute UTI however she may need a change in her antibiotic on discharge 2. Short gut syndrome with multiple electrolyte abnormalities ?We will continue to replace her electrolytes, including her phosphorus and her magnesium ?Recheck in the morning 3. History of protein C&S deficiency ?Continue with her Lovenox which is a home medication 4. Tobacco abuse ?Discussed cessation ?Nicotine patch available if necessary DVT: Lovenox
[2021-08-22] MEDS: Calcium Carbonate 500 MG Tablet PO ×2 (08:11→11:53)
[2021-08-22 08:15] VITALS: BP 140/86; PULSE 98; RESP 16; TEMP 37.5; O2SAT 100
[2021-08-22 08:16] VITALS: PULSE 98; O2SAT 100
[2021-08-22 08:20] VITALS: O2SAT 99
[2021-08-22] MEDS: FLUCONAZOLE 150 MG TABLET PO (10:12)
[2021-08-22] MEDS: Ceftriaxone 1 GM/50 ML BAG IV (10:13)
[2021-08-22] MEDS: Enoxaparin 80 MG/0.8 ML Syringe 70 MG SC (10:14)
[2021-08-22] MEDS: Acetaminophen 325 MG Tablet 650 MG PO (10:25)
[2021-08-22] MEDS: 0.9% Normal Saline 1,000 ML 75 ML IV (11:52)
--- NOTE | 2021-08-22 12:44 | PCM.DC.SUM ---
Providers Date of Admission: 08/20/21 Primary Care Physician: Dr. José Luis Motley MD Reason For Visit: acute uti Diagnosis Discharge Diagnosis (1) UTI (urinary tract infection): Status: Acute Code(s): N39.0 - Urinary tract infection, site not specified Qualifiers: Urinary tract infection type: site unspecified Hematuria presence: without hematuria Qualified Code(s): N39.0 - Urinary tract infection, site not specified Medications at Discharge Home Medications ergocalciferol (vitamin D2) 50,000 unit PO MOTUWETH 10/09/14 magnesium L-lactate 84 mg tablet,extended release 252 mg PO TID tab 01/24/18 enoxaparin [Lovenox] 70 mg SUBCUT BID 05/11/21 calcium carbonate [Calcium 500] 500 mg PO BID #60 tab 08/22/21 ciprofloxacin HCl [Cipro] 500 mg PO BID #14 tab 08/22/21 potassium chloride 20 meq PO BID #60 tab 08/22/21 Hospital Course Summary of Care Provided Minutes Spent on Discharge: 35 Hospital Course: Patient is a 41-year-old lady with recent UTI discharged home on Keflex presented to the emergency department with abdominal discomfort nausea and vomiting 1. Acute cystitis with E. coli Patient was managed with Rocephin discharged home on Cipro 2. Short gut syndrome with multiple electrolyte abnormalities ?Including hypocalcemia hypomagnesemia and hypokalemia corrected per protocol 3. 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 Tobacco dependence - Counseled on cessation, offered nicotine patch for tobacco cravings Physical Exam Narrative GENERAL: cooperative HEENT: Atraumatic; EYES; Anicteric, Normal Conjunctiva NECK; supple, normal thyroid, RESPIRATORY: Diminished to auscultation CARDIOVASCULAR: Regular S1 S2, GI: soft, normoactive bowel sounds, : No Renal angle tenderness; EXTREMITIES: No edema, no clubbing, MUSCULOSKELETAL: no muscle wasting NEURO: Awake; no lateralizing signs. SKIN: No Rash PSYCH; Flat affect Weight / BMI Weight Weight: 74.8 kg Body Mass Index (BMI) 28.3 ABG / Lab / Microbiology Data Result Diagrams: 08/22/21 04:29 08/22/21 04:29 Laboratory: Laboratory Results - last 24 hr 08/22/21 04:29: Sodium 136, Potassium 3.3 L, Chloride 104, Carbon Dioxide 27.0, Anion Gap 5, BUN 5 L, Creatinine 0.57, Estim Creat Clear Calc 113.29, Est GFR (MDRD) Af Amer 150, Est GFR (MDRD) Non-Af 124, BUN/Creatinine Ratio 8.8 L, Glucose 87, Calcium 7.6 L, Magnesium 1.7 08/22/21 04:29: WBC 3.1 L, RBC 4.43, Hgb 13.3, Hct 40.3, MCV 91.0, MCH 30.0, MCHC 33.0, RDW Std Deviation 45.1 H, RDW Coeff of Jim 13.3, Plt Count 149 L, MPV 9.9, Immature Gran % (Auto) 0.600, Neut % (Auto) 64.0, Lymph % (Auto) 24.0, [place] % (Auto) 10.1 H, Eos % (Auto) 1.0, Baso % (Auto) 0.3, Absolute Neuts (auto) 2.0, Absolute Lymphs (auto) 0.74 L, Nucleated RBC % 0 08/22/21 04:29: Phosphorus 2.5 Microbiology: Microbiology 08/20/21 19:35 Urine, Clean Catch Urine Culture - Preliminary Culture exhibits no growth. D/C Instructions Discharge Diet: No restrictions Discharge Activity: Return to Normal Activity Call your doctor if you observe: Fever of 101 or Higher, Shortness of breath, Fainting spells and Chest pain Meaningful Use Info Meaningful Use Diagnoses (Choose all that apply): None applicable Discharge Plan Admission Admit Date/Time: 08/20/21 22:23 Attending Provider: Jitendra Easton Primary Care Provider: José Luis Motley Discharge Orders/Prescriptions Prescriptions: New ciprofloxacin HCl [Cipro] 500 mg tablet 500 mg PO BID Qty: 14 RF: 0 potassium chloride 20 mEq tablet extended release 20 meq PO BID Qty: 60 RF: 0 calcium carbonate [Calcium 500] 500 mg calcium (1,250 mg) tablet,chewable 500 mg PO BID Qty: 60 RF: 0 Continued magnesium L-lactate 84 mg tablet extended release 252 mg PO TID RF: 0 ergocalciferol (vitamin D2) 50,000 UNIT capsule 50,000 unit PO MOTUWETH RF: 0 enoxaparin [Lovenox] 80 mg/0.8 mL Syringe 70 mg SUBCUT BID RF: 0 Discontinued calcium carbonate 500 MG tablet 500 mg PO TIDCM RF: 0 Referrals / Follow Up: José Luis Motley MD [Primary Care Provider] - Within 1 Week Disposition Disposition (needs filled in before D/C Order can be placed): Home, Self Care Charges/Coding Visit Charges Inpatient E&M: 85728 Disch Hosp
[2021-08-22 12:53] VITALS: BP 130/95; PULSE 101; RESP 16; TEMP 38.2; O2SAT 97
== END 2021-08-22 15:00 | disposition home or self-care (01) | DRG 463 ==
LOC: ED 22:17 → MS3 22:36
PROVIDERS: Family Medicine; Admitting Provider Hospitalist; Emergency Provider Emergency Medicine; PCP Family Medicine; Visit Provider Internal Medicine
DX: N30.00 Acute cystitis without hematuria (principal); K91.2 Postsurgical malabsorption, not elsewhere classified; D68.59 Other primary thrombophilia; E83.42 Hypomagnesemia; E87.6 Hypokalemia; F17.210 Nicotine dependence, cigarettes, uncomplicated; B96.20 Unspecified Escherichia coli [E. coli] as the cause of diseases classified elsewhere; G43.909 Migraine, unspecified, not intractable, without status migrainosus; Z79.01 Long term (current) use of anticoagulants; N20.0 Calculus of kidney
CPT/HCPCS: 36415; 74176; 80048; 81001; 83605; 83735; 84100; 85025; 87040; 87077; 87086; 87088; 87186; 96365; 96366; 96367; 96375; 99283; 99284; 99406; J7030; J7040; J7050; A4216; J2405

== ENCOUNTER 2021-10-31 19:46 | Emergency (ER) | payer MEDICAID, SELFPAY ==
[2021-10-31 19:48] VITALS: BP 123/83; PULSE 83; RESP 12; TEMP 36.1; O2SAT 97; BMI 27.2
--- NOTE | 2021-10-31 20:00 | EDS_ITS ---
HPI History of Present Illness HPI Narrative: Presents with pain behind her left knee that began today. Patient states it began rather suddenly. Patient describes it as sharp, aching, and burning. Patient states it is worse with complete flexion of her knee. Patient states nothing seems to help with it. Patient admits to some tingling in her left leg. Patient states she has a history of protein C and protein S deficiencies. Patient states she normally takes Lovenox but has been out for the last 3 days. Patient is concerned that there is a blood clot. Chief Complaint: Lower Extremity Injury Informant: patient Onset/Context/Timing Onset: Today Context: Sudden Onset Timing: Continuous Quality of Pain: Sharp, Aching and Burning Location: Left knee area Worsened by: Complete flexion Relieved by: Nothing Associated Symptoms Associated Symptoms: Positive for Parasthesia; Negative for Weakness and Loss of Funtion PFSH REPLACED BY [facility] Medical History Blood clotting disorder Kidney stone Protein C deficiency Protein S deficiency Short gut syndrome Home Medications ergocalciferol (vitamin D2) 50,000 unit PO MOTUWETH 10/09/14 [History Last Taken 08/17/21 08:00] magnesium L-lactate 84 mg tablet,extended release 252 mg PO TID tab 01/24/18 [History Last Taken 08/20/21 13:00] calcium carbonate [Calcium 500] 500 mg PO BID #60 tab 08/22/21 [Rx Last Taken Unknown] potassium chloride 20 meq PO BID #60 tab 08/22/21 [Rx Last Taken Unknown] enoxaparin [Lovenox] 70 mg SUBCUT BID #8 ml 10/31/21 [Rx Last Taken Unknown] [id number] 1 tab PO TID 10/31/21 [History Last Taken Unknown] Allergy/AdvReac Type Severity Reaction Status Date / Time adhesive Allergy Itching Verified 10/31/21 19:48 amoxicillin [Amoxicillin] Allergy Hives Verified 10/31/21 19:48 Penicillins Allergy Hives Verified 10/31/21 19:48 Family History Grandmother Diabetes Heart disease Mother Heart disease Grandfather Lung cancer Liver cancer Brain cancer Surgical History History of removal of ovarian cyst Hx of cholecystectomy S/P hernia repair STEPS procedure Social History Smoking Status: Current every day smoker tobacco type: e-cigarettes alcohol intake: current alcohol intake frequency: holidays/special occasions only substance use type: does not use caffeine: Yes what type of physical activity do you participate in: none seatbelt use: always do you feel safe at home: Yes additional social history: - Lul Patient works with [employer] ROS ED Constitutional Constitutional ED: Denies chills or fever(s) Eyes Eyes: Denies blurry vision or change in vision ENT ENT ED: Denies rhinorrhea or sore throat Cardiovascular Cardiovascular: Denies chest pain or palpitations Respiratory/Chest Respiratory/Chest: Denies cough or dyspnea Gastrointestinal Gastrointestinal: Denies nausea or vomiting Genitourinary Genitourinary ED: Denies dysuria or hematuria Musculoskeletal Musculoskeletal: Reports neck pain; Denies back pain Integumentary Denies abscess or rash Neurologic Neurologic: Denies headache(s) or weakness Allergic/Immunologic Allergic/Immunologic ED: Denies mouth swelling or urticaria EXAM Physical Exam Const Vital Signs: 10/31/21 19:48 Temperature 97 F L Temperature Source Temporal Pulse Rate 83 Respiratory Rate 12 Blood Pressure 123/83 H Blood Pressure Mean 96 Pulse Ox 97 Oxygen Delivery Method Room Air Positive well nourished and well developed General Appearance ED: well developed and NAD HEENT Reports moist mucous membranes Neck full ROM and supple Extremity Extremity Narrative: There is some mild tenderness, edema, and ecchymosis over the posterior/lateral aspect of the left knee. There is no discharge or drainage. There is no bony crepitance or step-off. Range of motion was slightly limited and incomplete flexion secondary to pain. Pedal pulses are equal bilaterally. Sensation was intact to light touch bilaterally in lower extremities. Strength is 5/5 bilaterally in the lower extremities. Neuro oriented x3, CN's II-XII intact bilaterally, moves all extremities and no sensory deficits noted Sensorium / Orientation: alert Motor Exam: strength 5/5 throughout Psych mental status grossly normal MDM MDM MDM Narrative Medical decision making narrative: Patient was given a dose of Lovenox here. Venous duplex of the left lower extremity was obtained. There is no evidence of DVT. Patient was advised of her findings. Patient was given a prescription for a short refill of her Lovenox. Patient was instructed to follow-up with her primary care physician in 3 to 5 days. Patient understood and was agreeable with the plan. All questions were answered. Discharge Plan Triage Chief Complaint: Lower Extremity Injury ED Provider: Lul Ma Dx/Rx/DC Orders Clinical Impression: Thrombophlebitis of superficial veins of left lower extremity, Protein C deficiency, Protein S deficiency Instructions: ED Thrombophlebitis, Superficial Prescriptions: Continued enoxaparin [Lovenox] 80 mg/0.8 mL Syringe 70 mg SUBCUT BID Qty: 8 RF: 0 No Action magnesium L-lactate 84 mg tablet extended release 252 mg PO TID RF: 0 ergocalciferol (vitamin D2) 50,000 UNIT capsule 50,000 unit PO MOTUWETH RF: 0 potassium chloride 20 mEq tablet extended release 20 meq PO BID Qty: 60 RF: 0 calcium carbonate [Calcium 500] 500 mg calcium (1,250 mg) tablet,chewable 500 mg PO BID Qty: 60 RF: 0 [id number] 2.25 mg iron- 100 mcg Tablet 1 tab PO TID RF: 0 Primary Care Provider: José Luis Motley Referrals: José Luis Motley MD [Primary Care Provider] - 3-5 Days Disposition Disposition: Home, Self Care
--- NOTE | 2021-10-31 20:10 | US_ITS ---
STUDY: VENOUS DOPPLER ULTRASOUND - LEFT LOWER EXTREMITY REASON FOR EXAM: Female, 41 years old. LEG PAIN AND SWELLING BLACK AND BLUE LT LEG- LATERAL/POSTERIOR LT KNEE TECHNIQUE: Ultrasound evaluation of the deep vein system to include heard-scale imaging and compression was performed. Heard-scale imaging and Doppler sonographic evaluation, including duplex spectral analysis and qualitative color flow sonography, was performed. COMPARISON: None. FINDINGS: Common Femoral Vein: Normal compression, spontaneity and augmentation. Normal color Doppler. Common Femoral Vein/Greater Saphenous Junction: Normal compression, spontaneity and augmentation. Normal color Doppler. Superficial Femoral Proximal: Normal compression, spontaneity and augmentation. Normal color Doppler. Superficial Femoral Middle: Normal compression, spontaneity and augmentation. Normal color Doppler. Superficial Femoral Distal: Normal compression, spontaneity and augmentation. Normal color Doppler. Popliteal Vein: Normal compression, spontaneity and augmentation. Normal color Doppler. Posterior Tibial Vein: Normal compression, spontaneity and augmentation. Normal color Doppler. Peroneal Vein: Normal compression, spontaneity and augmentation. Normal color Doppler. There is no demonstrated deep venous thrombosis. US/Venous Duplex Imag/Limited/Uni IMPRESSION: There is no demonstrated deep venous thrombosis. Electronically Signed: Julio Sánchez MD at 20:55 EDT ,
[2021-10-31] MEDS: Enoxaparin 80 MG/0.8 ML Syringe 70 MG SC (20:11)
== END 2021-10-31 20:55 | disposition home or self-care (01) ==
PROVIDERS: Emergency Provider Emergency Medicine; PCP Family Medicine; Visit Provider Emergency Medicine
DX: I80.02 Phlebitis and thrombophlebitis of superficial vessels of left lower extremity (principal); D68.59 Other primary thrombophilia; F17.290 Nicotine dependence, other tobacco product, uncomplicated
CPT/HCPCS: 93971; 99282

== ENCOUNTER 2021-11-12 20:10 | Emergency (ER) | payer MEDICAID, SELFPAY ==
[2021-11-12 20:10] VITALS: BP 124/88; PULSE 61; RESP 16; TEMP 36.1; O2SAT 98; BMI 27.7
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
[2021-11-12] MEDS: HYDROcodone Bitartrate/Apap 5/325 Tablet PO (21:07)
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
[2021-11-12 22:10] VITALS: BP 141/84; PULSE 60; RESP 15; O2SAT 99
[2021-11-12 23:03] VITALS: BP 141/84; PULSE 60; RESP 15; O2SAT 99
== END 2021-11-12 23:04 | disposition home or self-care (01) ==
PROVIDERS: Emergency Provider Emergency Medicine; PCP Family Medicine; Visit Provider Emergency Medicine
DX: S22.20XA Unspecified fracture of sternum, 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 for closed fracture (principal); F17.290 Nicotine dependence, other tobacco product, uncomplicated; V43.52XA Car driver injured in collision with other type car in traffic accident, 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
CPT/HCPCS: 70450; 71250; 73130; 99284

== ENCOUNTER 2022-03-31 07:36 | Emergency (ER) | payer MEDICAID, SELFPAY ==
[2022-03-31 07:38] VITALS: BP 139/98; PULSE 97; RESP 14; TEMP 36.4; O2SAT 99; BMI 26.9
--- NOTE | 2022-03-31 07:59 | EX.ED.DYSGE1 ---
HPI History of Present Illness Chief Complaint: General Illness Informant: patient Onset/Context/Timing Onset: Weeks (1) Context: Gradual Onset Timing: Continuous Quality: fatigue, muscle cramps Location: all over including abd wall Current Severity: Moderate Maximum Severity: Moderate Worsened by: nothing in particular Relieved by: nothing Associated Symptoms Associated Symptoms: diarrhea, chronic and worse than usual Narrative Narrative: Patient feels like she is dehydrated and in need of potassium, magnesium, or both. 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 She is on Lovenox for that problem. She denies any significant abdominal pains, just some abdominal wall muscle cramping along with the muscles in the rest of her body. [facility] Medical History Blood clotting disorder Kidney stone Protein C deficiency Protein S deficiency Short gut syndrome Home Medications ergocalciferol (vitamin D2) 1,250 mcg (50,000 unit) capsule 50,000 unit PO MOTUWETH supplement 10/09/14 [History Last Taken 08/17/21 08:00] calcium carbonate 500 mg calcium (1,250 mg) chewable tablet (Calcium 500) 500 mg PO BID #60 tabs 08/22/21 [Rx Last Taken Unknown] enoxaparin 80 mg/0.8 mL subcutaneous syringe (Lovenox) 70 mg (0.7 mL) subcut BID blood thin #8 mL 10/31/21 [Rx Last Taken Unknown] apetmdyp-poc-aixm 2.25 mg-folic acid 100 [id number] acid tablet 1 tab PO TID 10/31/21 [History Last Taken Unknown] hydrocodone-acetaminophen 5-325mg 5mg-325mg 1 tab PO Q6H PRN pain 3 days #14 tabs 11/12/21 [Rx Last Taken Unknown] magnesium L-lactate 84 mg tablet,extended release 252 mg PO TID SUPPLEMENT #90 tabs 03/31/22 [Rx Last Taken Unknown] potassium chloride 20 mEq tablet,extended release 20 meq PO BID #60 tabs 03/31/22 [Rx Last Taken Unknown] Allergy/AdvReac Type Severity Reaction Status Date / Time adhesive Allergy Itching Verified 03/31/22 07:40 amoxicillin [Amoxicillin] Allergy Hives Verified 03/31/22 07:40 Penicillins Allergy Hives Verified 03/31/22 07:40 Family History Grandmother Diabetes Heart disease Mother Heart disease Grandfather Lung cancer Liver cancer Brain cancer Surgical History History of removal of ovarian cyst Hx of cholecystectomy S/P hernia repair STEPS procedure Social History Smoking Status: Current every day smoker tobacco type: e-cigarettes alcohol intake: current alcohol intake frequency: holidays/special occasions only substance use type: does not use caffeine: Yes what type of physical activity do you participate in: none seatbelt use: always do you feel safe at home: Yes additional social history: - Lul Patient works with [employer] ED Constitutional Constitutional ED: Reports fatigue; Denies chills or fever(s) Eyes Eyes: Denies change in vision or diplopia ENT ENT ED: Reports rhinorrhea; Denies sore throat Cardiovascular Cardiovascular: Denies chest pain or palpitations Respiratory/Chest Respiratory/Chest: Denies cough or dyspnea Gastrointestinal Gastrointestinal: Reports abdominal pain and diarrhea; Denies nausea or vomiting Genitourinary Genitourinary ED: Denies dysuria or hematuria Musculoskeletal Musculoskeletal: Reports muscle cramps, muscle spasms and myalgias; Denies back pain or neck pain Integumentary Denies abscess or rash Neurologic Neurologic: Denies headache(s), paresthesias or weakness Psychiatric Psychiatric: Denies anxiety or suicidal thoughts EXAM Physical Exam Const Vital Signs: 03/31/22 07:38 03/31/22 07:51 Temperature 97.6 F L Temperature Source Temporal Pulse Rate 97 Respiratory Rate 14 Respiratory Effort Normal Non-Labored Respiratory Pattern Normal Blood Pressure 139/98 H Blood Pressure Mean 111 Pulse Ox 99 Oxygen Delivery Method Room Air Positive well nourished and well developed General Appearance ED: well developed and NAD HEENT Reports moist mucous membranes normocephalic and atraumatic Eyes PERRL and EOMs intact bilaterally Neck full ROM and supple Resp normal respiratory effort and clear to auscultation bilaterally Cardio regular rate, regular rhythm and no murmurs GI non-tender and non-distended Auscultation: normoactive bowel sounds Palpation: soft Back/Spine no CVA tenderness General Back: other FROM Extremity normal to inspection General Extremety ED: Negative for edema, pulses abnormal or tenderness General Extremity: Negative for edema or pulses abnormal Neuro oriented x3, CN's II-XII intact bilaterally and no sensory deficits noted Sensorium / Orientation: awake and alert Motor Exam: strength 5/5 throughout Skin no rashes or lesions noted and no wounds MDM MDM MDM Narrative Medical decision making narrative: Patient has normal work-up except for magnesium level which is low. She was given an infusion of IV normal saline in addition to 2 g of magnesium sulfate, and she will be discharged to continue her supplements at home and offer prescriptions if she needs them. Lab Data Attestation: I reviewed the patient's lab results. Labs: Laboratory Results - last 24 hr 03/31/22 03/31/22 08:10 08:10 WBC 5.5 RBC 4.25 Hgb 12.9 Hct 39.5 MCV 92.9 MCH 30.4 MCHC 32.7 RDW Std Deviation 44.6 H RDW Coeff of Jim 13.2 Plt Count 201 MPV 9.3 Immature Gran % (Auto) 0.400 Neut % (Auto) 66.5 Lymph % (Auto) 22.9 [place] % (Auto) 6.2 Eos % (Auto) 3.5 Baso % (Auto) 0.5 Absolute Neuts (auto) 3.6 Absolute Lymphs (auto) 1.25 Nucleated RBC % 0 Sodium 138 Potassium 4.0 Chloride 106 Carbon Dioxide 25.0 Anion Gap 7 BUN 13 Creatinine 0.78 Estim Creat Clear Calc 81.96 Est GFR (MDRD) Af Amer 105 Est GFR (MDRD) Non-Af 87 BUN/Creatinine Ratio 16.7 Glucose 82 Calcium 8.6 Magnesium 1.5 L Discharge Plan Triage Chief Complaint: General Illness ED Provider: Guanako Richardson Dx/Rx/DC Orders Clinical Impression: Hypomagnesemia, Short gut syndrome Instructions: Hypomagnesemia Dc Prescriptions: Continued ergocalciferol (vitamin D2) 50,000 UNIT capsule 50,000 unit PO MOTUWETH calcium carbonate [Calcium 500] 500 mg calcium (1,250 mg) tablet,chewable 500 mg PO BID Qty: 60 0RF [id number] 2.25 mg iron- 100 mcg Tablet 1 tab PO TID enoxaparin [Lovenox] 80 mg/0.8 mL Syringe 70 mg SUBCUT BID Qty: 8 0RF hydrocodone-acetaminophen 5-325 mg tablet 1 tab PO Q6H PRN (Reason: pain) 3 Days Qty: 14 0RF magnesium L-lactate 84 mg tablet extended release 252 mg PO TID Qty: 90 0RF potassium chloride 20 mEq tablet extended release 20 meq PO BID Qty: 60 0RF Primary Care Provider: José Luis Motley Referrals: José Luis Motley MD [Primary Care Provider] - As Needed Disposition Disposition: Home, Self Care
[2022-03-31 08:19] LABS: Absolute Lymphocyte Count 1.25 X10^3/uL (0.83-4.51); Absolute Neutrophil Count 3.6 X10^3/uL (2.0-7.7); Basophil# 0.03 X10^3/uL; Basophil% 0.5 % (0-1); Eosinophil# 0.19 X10^3/uL; Eosinophils% 3.5 % (0-5); Hematocrit 39.5 % (37-47); Hemoglobin 12.9 g/dL (12.0-15.0); Lymphocyte # 1.25 X10^3/ul (0.83-4.51); Lymphocyte % 22.9 % (19-41); Mean Corp Hgb Conc 32.7 g/dL (32-36); Mean Corpuscular Hgb 30.4 pg (27.0-32.0); Mean Corpuscular Volume 92.9 fL (81-99); Mean Platelet Vol. 9.3 fl (6.2-12.0); Monocyte# 0.34 X10^3/uL; Monocyte% 6.2 % (0-10); NRBC Flagged by Analyzer 0 % (0-5); Neutrophil # 3.63 X10^3/uL (2.7-7.7); Neutrophil % 66.5 % (47-70); Platelet Count 201 K/mm3 (150-450); RBC Distribution Width CV 13.2 % (11.6-14.6); RBC Distribution Width SD 44.6 fl (35.1-43.9); Red Blood Count 4.25 M/mm3 (4.2-5.4); White Blood Count 5.5 K/mm3 (4.4-11.0)
[2022-03-31 08:34] LABS: Anion Gap 7 (5-15); BUN 13 mg/dL (7-18); BUN/Creat Ratio 16.7 RATIO (10-20); Calcium,Total 8.6 mg/dL (8.5-10.1); Chloride 106 mmol/L (98-107); Creatinine, Serum 0.78 mg/dL (0.55-1.02); EST Glomerular Filtration Rate 87 mL/min (>60); Est Glom Filt Rate - Afr Amer 105 mL/min (>60); Estimated Creatinine Clearance 81.96 ml/min; Glucose 82 mg/dL (74-106); Magnesium 1.5 mg/dL (1.6-2.6); Sodium Level 138 mmol/L (136-145)
[2022-03-31 08:51] VITALS: RESP 16
[2022-03-31 09:37] VITALS: RESP 16
[2022-03-31] MEDS: 0.9% Normal Saline 1,000 ML 999 ML IV (09:39)
[2022-03-31 11:37] VITALS: RESP 16
== END 2022-03-31 13:14 | disposition home or self-care (01) ==
PROVIDERS: Emergency Provider Emergency Medicine; PCP Family Medicine; Visit Provider Emergency Medicine
DX: E83.42 Hypomagnesemia (principal); K91.2 Postsurgical malabsorption, not elsewhere classified; F17.290 Nicotine dependence, other tobacco product, uncomplicated; Z79.899 Other long term (current) drug therapy
CPT/HCPCS: 80048; 83735; 85025; 96365; 96366; 99283; J7030; A4216

== ENCOUNTER 2022-05-13 21:20 | Emergency (ER) | payer MEDICAID, SELFPAY ==
[2022-05-13 21:20] VITALS: BP 135/86; PULSE 65; RESP 14; TEMP 36.4; O2SAT 100; BMI 26.9
--- NOTE | 2022-05-13 21:34 | CT_ITS ---
EXAM: CT ABDOMEN AND PELVIS WITH INTRAVENOUS CONTRAST CLINICAL INDICATION: LLQ abd pain TECHNIQUE: Helically acquired images were obtained of the abdomen and pelvis with intravenous contrast. CTDIvol = ( 8.49 ) mGy, DLP = ( 644.76 ) mGycm This CT exam was performed using one or more of the following dose reduction techniques: automated exposure control, adjustment of the mA and/or kV according to patient size, and/or use of iterative reconstruction technique. This report was created using [employer] report generation technology. CONTRAST: IV 100mL Isovue-370 COMPARISON: August 20, 2021 CT FINDINGS: LOWER THORAX: Unremarkable. Lung bases are clear. No cardiomegaly. No significant pericardial effusion. ABDOMEN: LIVER: Hepatic steatosis. GALLBLADDER AND BILE DUCTS: Prior cholecystectomy. No intra- or extrahepatic biliary ductal dilation. PANCREAS: Unremarkable. No focal cystic or solid mass. SPLEEN: Unremarkable. Normal size without focal cystic or solid mass. ADRENALS: Unremarkable. No nodules. KIDNEYS AND URETERS: Unremarkable. Normal renal size and position. No hydronephrosis. STOMACH AND BOWEL: Status post multiple bowel surgeries with unchanged prominent distention of much of the colon without evidence of high-grade bowel obstruction. Stool and gas throughout the colon. No colitis or diverticulitis. Broad-based anterior protrusion of bowel loops at the left lower quadrant anterior abdominal wall is largely unchanged from before. PELVIS: APPENDIX: No evidence of acute appendicitis. BLADDER: Unremarkable. REPRODUCTIVE: IUD, unchanged in position and orientation from before. No adnexal masses. ABDOMEN and PELVIS: INTRAPERITONEAL SPACE: No free air or free fluid. 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 No other suspicious lytic or blastic abnormality. SOFT TISSUES: Unremarkable. No discrete abdominal or pelvic wall hernia. VASCULATURE: Unremarkable. Abdominal aorta is non-dilated. LYMPH NODES: Unremarkable. No enlarged lymph nodes. CT/Abdomen/Pelvis W IV Cont ONLY IMPRESSION: 1. Status post multiple bowel surgeries with unchanged prominent distention of much of the colon without evidence of high-grade bowel obstruction. 2. Otherwise, no acute or inflammatory disease or bowel obstruction. 3. Unchanged appearance and position of IUD. 4. Ancillary findings as above. Electronically Signed: Tyrone Mcintyre MD at 22:46 EST ,
--- NOTE | 2022-05-13 21:35 | EDS_ITS ---
HPI HPI - GI History of Present Illness Chief Complaint: Abd Pain Informant: patient Abdominal Pain/Flank Pain Onset: Days Context: Gradual Onset Timing: Continuous Quality: Aching and Cramping Location: LLQ Current Severity: Mild Maximum Severity: Mild Worsened by: Nothing Relieved by: Nothing Nausea/Vomiting/Emesis GI Symptom: Positive for Nausea Onset: Days Severity: Mild Diarrhea/Melena/Hematochezia GI Symptom: Negative for Diarrhea, Melena or Hematochezia Associated Symptoms Associated Symptoms: Positive for Dysuria; Negative for Frequency or Hematuria Narrative Narrative: 42-year-old female history of clotting disorder with protein C&S for which she is on Lovenox. Has a history of short gut syndrome where she had significant portion of both her small and large bowel resected about 9 years ago at the [facility] due to a clot. States that last week she has had abdominal discomfort pain with bowel movements and some dysuria. Denies any fever or chills. No melena. She has had some nausea without vomiting. No fever. Prior similar symptoms: Yes Recent Illness/Hospitalization: No PFSH PFSH Medical History Blood clotting disorder Kidney stone Protein C deficiency Protein S deficiency Short gut syndrome Home Medications ergocalciferol (vitamin D2) 1,250 mcg (50,000 unit) capsule 50,000 unit PO MOTUWETH supplement 10/09/14 [History Last Taken 08/17/21 08:00] calcium carbonate 500 mg calcium (1,250 mg) chewable tablet (Calcium 500) 500 mg PO BID #60 tabs 08/22/21 [Rx Last Taken Unknown] enoxaparin 80 mg/0.8 mL subcutaneous syringe (Lovenox) 70 mg (0.7 mL) subcut BID blood thin #8 mL 10/31/21 [Rx Last Taken Unknown] blkelmpr-ozl-iugq 2.25 mg-folic acid 100 [id number] acid tablet 1 tab PO TID 10/31/21 [History Last Taken Unknown] magnesium L-lactate 84 mg tablet,extended release 252 mg PO TID SUPPLEMENT #90 tabs 03/31/22 [Rx Last Taken Unknown] potassium chloride 20 mEq tablet,extended release 20 meq PO BID #60 tabs 03/31/22 [Rx Last Taken Unknown] nitrofurantoin monohydrate/macrocrystals 100 mg capsule (Macrobid) 100 mg PO Q12H 5 days #10 caps 05/13/22 [Rx Last Taken Unknown] Allergy/AdvReac Type Severity Reaction Status Date / Time adhesive Allergy Itching Verified 05/13/22 21:22 amoxicillin [Amoxicillin] Allergy Hives Verified 05/13/22 21:22 Penicillins Allergy Hives Verified 05/13/22 21:22 Family History Grandmother Diabetes Heart disease Mother Heart disease Grandfather Lung cancer Liver cancer Brain cancer Surgical History History of removal of ovarian cyst Hx of cholecystectomy S/P hernia repair STEPS procedure Social History Smoking Status: Current every day smoker tobacco type: e-cigarettes alcohol intake: current alcohol intake frequency: holidays/special occasions only substance use type: does not use caffeine: Yes what type of physical activity do you participate in: none seatbelt use: always do you feel safe at home: Yes additional social history: - Lul Patient works with [employer] ROS ROS ED ROS Narrative Abdominal pain. Nausea. Dysuria. Review of Systems ROS Unobtainable: Denies due to encephalopathy Constitutional Constitutional ED: Denies chills or fever(s) ENT ENT ED: Denies ear pain Cardiovascular Cardiovascular: Denies chest pain Respiratory/Chest Respiratory/Chest: Denies cough or dyspnea Gastrointestinal Gastrointestinal: Reports abdominal pain, constipation and nausea; Denies diarrhea, melena or vomiting Genitourinary Genitourinary ED: Reports dysuria Musculoskeletal Musculoskeletal: Denies arthralgias Integumentary Denies abscess Neurologic Neurologic: Denies headache(s) Psychiatric Psychiatric: Denies anxiety Endocrine Endocrinology: Denies polydipsia Hematologic/Lymphatic Hematologic/Lymphatic: Denies easy bleeding Allergic/Immunologic Allergic/Immunologic ED: Denies mouth swelling or tongue swelling EXAM Physical Exam Narrative Exam Narrative: 22-year-old female no acute distress. Vital signs stable afebrile. H EENT exam unremarkable. Mildly dry mucous members. Neck nontender no lymphadenopathy. Lungs clear to auscultation bilaterally. Heart regular rate and rhythm no murmur rate about 65. Abdomen soft nondistended normal bowel sounds no peritoneal signs. Mildly tender left lower quadrant. No hernia or mass. No distention. No obstruction. Right upper and right lower quadrants are unremarkable. Moving all 4 extremities. Nontender no edema. Back nontender. Neurologic exam awake alert no focal motor deficits. Const Vital Signs: 05/13/22 21:20 Temperature 97.5 F L Temperature Source Temporal Pulse Rate 65 Respiratory Rate 14 Blood Pressure 135/86 H Blood Pressure Mean 102 Pulse Ox 100 Oxygen Delivery Method Room Air Positive well nourished and well developed; Negative for obese, cachectic, contractures or unkempt General Appearance ED: well developed and NAD; Negative for unkempt, cachectic, contractures or pallor Nutritional Appearance: Negative for cachectic or obese HEENT Reports dry mucous membranes; Denies moist mucous membranes normocephalic and atraumatic; Negative for trauma or tenderness Mouth ED: Yes dry mucous membranes Mouth: dry mucous membranes Eyes PERRL and EOMs intact bilaterally General Eye ED: Negative for pale conjunctiva or scleral icterus Neck no lymphadenopathy, supple and no JVD General: Negative for tenderness Carotids: Negative for other Lymph Lymphatic: Negative for other Resp normal respiratory effort and clear to auscultation bilaterally Effort and Inspection: Negative for respiratory distress Auscultation: Negative for rales, rhonchi or wheezes Cardio regular rate, regular rhythm, S1 normal heart sound, S2 normal heart sound and no murmurs GI non-distended and no masses; Negative for non-tender GI Narrative: Left lower quadrant tenderness only. Nondistended. No peritoneal signs. No hernia or mass. No obstruction. Auscultation: normoactive bowel sounds Palpation: soft and tender; Negative for guarding, rigid, hepatomegaly, splenomegaly, hernia, mass, pulsatile mass or rebound tenderness present Back/Spine no CVA tenderness General Back: Negative for CVA tenderness Cervical Spine: Negative for cervical spine tenderness Thoracic Spine / Upper Back: Negative for thoracic spinal tenderness Lumbar Spine / Lower Back: Negative for lumbar spinal tenderness Extremity full ROM General Extremety ED: Negative for edema or tenderness General Extremity: Negative for edema Neuro CN's II-XII intact bilaterally and moves all extremities Sensorium / Orientation: alert, oriented to person, oriented to place and oriented to time; Negative for orientation impaired, confused, lethargic or stuporous Motor Exam: strength 5/5 throughout Psych mental status grossly normal and thought process normal Appearance: Negative for unkempt Attitude: No agitated Mood & Affect: Negative for depressed, anxious or tearful Skin no wounds General Skin Exam: Negative for jaundice or pallor Lesions: no lesions Rashes: no rashes Trauma: Negative for abrasion Nails: Negative for discolored MDM MDM MDM Narrative Medical decision making narrative: 42-year-old female of left lower quadrant abdominal pain. CAT scan labs pending. Treated with IV fluids, Zofran and Toradol. Repeat exam at 11:04 PM patient doing well. Abdomen benign. She is resting comfortably. She and I went over all of her test result results including her CAT scan. She will be treated both for a UTI (cystitis) and constipation. She will be started on Macrobid here 1 dose and then twice a day for the next 5 days. Urine culture sent. Fluids, fiber and prune juice for constipation. Follow-up if not improving. Return if worse. Lab Data Attestation: I reviewed the patient's lab results. Lab results narrative: CBC unremarkable with white count 6.2. H&H of 12 and 38. Platelets 179. Urinalysis has 10-25 white cells. No epithelial cells. No red cells. Positive nitrates and 2+ bacteria consistent with a urinary tract infection. CAT scan shows chronic colonic distention which is seen on prior films and commented on by the radiologist. Chemistries unremarkable gap of 3 normal BUN and creatinine. Normal liver enzymes. Lipase was only 69. Serum test was negative. Labs: Laboratory Results - last 24 hr 05/13/22 05/13/22 05/13/22 21:59 21:59 21:59 WBC 6.2 RBC 4.09 L Hgb 12.7 Hct 38.5 MCV 94.1 MCH 31.1 MCHC 33.0 RDW Std Deviation 45.3 H RDW Coeff of Jim 13.2 Plt Count 179 MPV 10.3 Immature Gran % (Auto) 0.200 Neut % (Auto) 52.7 Lymph % (Auto) 38.5 Power % (Auto) 6.2 Eos % (Auto) 1.9 Baso % (Auto) 0.5 Absolute Neuts (auto) 3.3 Absolute Lymphs (auto) 2.37 Nucleated RBC % 0 Sodium 140 Potassium 3.7 Chloride 108 H Carbon Dioxide 29.0 Anion Gap 3 L BUN 11 Creatinine 0.69 Estim Creat Clear Calc 92.65 Est GFR (MDRD) Af Amer 121 Est GFR (MDRD) Non-Af 100 BUN/Creatinine Ratio 16.0 Glucose 79 Calcium 8.5 Total Bilirubin 0.60 AST 30 ALT 36 Alkaline Phosphatase 72 Total Protein 6.8 Albumin 3.3 Globulin 3.5 Albumin/Globulin Ratio 0.9 Lipase 69 L Serum , Qual NEGATIVE Urine Color Urine Clarity Urine pH Ur Specific [place] Urine Protein Urine Glucose (UA) Urine Ketones Urine Occult Blood Urine Nitrite Urine Bilirubin Urine Urobilinogen Ur Leukocyte Esterase Urine RBC Urine WBC Ur Squamous Epith Cells Urine Bacteria Urine Mucus 05/13/22 22:33 WBC RBC Hgb Hct MCV MCH MCHC RDW Std Deviation RDW Coeff of Jim Plt Count MPV Immature Gran % (Auto) Neut % (Auto) Lymph % (Auto) Power % (Auto) Eos % (Auto) Baso % (Auto) Absolute Neuts (auto) Absolute Lymphs (auto) Nucleated RBC % Sodium Potassium Chloride Carbon Dioxide Anion Gap BUN Creatinine Estim Creat Clear Calc Est GFR (MDRD) Af Amer Est GFR (MDRD) Non-Af BUN/Creatinine Ratio Glucose Calcium Total Bilirubin AST ALT Alkaline Phosphatase Total Protein Albumin Globulin Albumin/Globulin Ratio Lipase Serum , Qual Urine Color Yellow Urine Clarity Clear Urine pH 5.0 Ur Specific [place] 1.025 Urine Protein 15 H Urine Glucose (UA) Normal Urine Ketones 5 H Urine Occult Blood 50 H Urine Nitrite Positive H Urine Bilirubin Negative Urine Urobilinogen Normal Ur Leukocyte Esterase 500 H Urine RBC 0 SEEN Urine WBC 10-25 SEEN Ur Squamous Epith Cells 0 SEEN Urine Bacteria 2+ Urine Mucus 0 SEEN Radiography Diagnostic Testing: Clinical Impression(s) from Imaging Studies Abdomen/Pelvis CT 05/13/22 21:34 IMPRESSION: 1. Status post multiple bowel surgeries with unchanged prominent distention of much of the colon without evidence of high-grade bowel obstruction. 2. Otherwise, no acute or inflammatory disease or bowel obstruction. 3. Unchanged appearance and position of IUD. 4. Ancillary findings as above. Electronically Signed: Tyrone Mcintyre MD at 22:46 EST Reading Location ID and State: [facility] / [place] Tel , Service support , Discharge Plan Triage Chief Complaint: Abd Pain ED Provider: Douglas Salgado Dx/Rx/DC Orders Clinical Impression: Abdominal pain, Hypercoagulable state, primary, Short gut syndrome, UTI (urinary tract infection), Constipation, Chronic anticoagulation Instructions: Abdominal Pain, ED Constipation (Adult), ED Cystitis Female Adult Prescriptions: New nitrofurantoin monohyd/m-cryst [Macrobid] 100 mg capsule 100 mg PO Q12H 5 Days Qty: 10 0RF Rx Instructions: must administer with a meal/food No Action ergocalciferol (vitamin D2) 50,000 UNIT capsule 50,000 unit PO MOTUWETH calcium carbonate [Calcium 500] 500 mg calcium (1,250 mg) tablet,chewable 500 mg PO BID Qty: 60 0RF [id number]-hehm-[id number]-AA 2.25 mg iron- 100 mcg Tablet 1 tab PO TID enoxaparin [Lovenox] 80 mg/0.8 mL Syringe 70 mg SUBCUT BID Qty: 8 0RF magnesium L-lactate 84 mg tablet extended release 252 mg PO TID Qty: 90 0RF potassium chloride 20 mEq tablet extended release 20 meq PO BID Qty: 60 0RF Primary Care Provider: José Luis Motley Referrals: José Luis Motley MD [Primary Care Provider] - 3-5 Days if not improving Activity Restrictions/Additional Instructions: Plenty of fluids and fiber and prune juice to help with any constipation. Tylenol for pain. Macrobid 1 pill twice a day for urinary tract infection. A urine culture was sent. If that does not treat the bacteria that grows out you will be notified. Follow-up with your doctor if not improving. Return if worse. Disposition Disposition: Home, Self Care
[2022-05-13] MEDS: Ketorolac 30 MG/ML Syringe IV (22:29)
[2022-05-13] MEDS: 0.9% Normal Saline 1,000 ML 1000 ML IV (22:29)
[2022-05-13] MEDS: Ondansetron 4 MG/2 ML Vial IV (22:29)
[2022-05-13 22:37] LABS: Absolute Lymphocyte Count 2.37 X10^3/uL (0.83-4.51); Absolute Neutrophil Count 3.3 X10^3/uL (2.0-7.7); Basophil# 0.03 X10^3/uL; Basophil% 0.5 % (0-1); Eosinophil# 0.12 X10^3/uL; Eosinophils% 1.9 % (0-5); Hematocrit 38.5 % (37-47); Hemoglobin 12.7 g/dL (12.0-15.0); Lymphocyte # 2.37 X10^3/ul (0.83-4.51); Lymphocyte % 38.5 % (19-41); Mean Corpuscular Hgb 31.1 pg (27.0-32.0); Mean Corpuscular Volume 94.1 fL (81-99); Mean Platelet Vol. 10.3 fl (6.2-12.0); Monocyte# 0.38 X10^3/uL; Monocyte% 6.2 % (0-10); NRBC Flagged by Analyzer 0 % (0-5); Neutrophil # 3.25 X10^3/uL (2.7-7.7); Neutrophil % 52.7 % (47-70); Platelet Count 179 K/mm3 (150-450); RBC Distribution Width CV 13.2 % (11.6-14.6); RBC Distribution Width SD 45.3 fl (35.1-43.9); Red Blood Count 4.09 M/mm3 (4.2-5.4); White Blood Count 6.2 K/mm3 (4.4-11.0)
[2022-05-13 22:38] LABS: Mucous, Urine 0 SEEN /hpf (<or=2+); Red Blood Cells-Urine 0 SEEN /hpf (0-5); Squamous Epithelial Cells - UA 0 SEEN /hpf (5-10)
[2022-05-13 22:39] LABS: Color, Urine Yellow (Yellow); Glucose, Dipstick Normal (Normal); Ketone-Dipstick 5 mg/dl (Negative); Leukocyte Esterase-Dipstick 500 /ul (Negative); Nitrite-Dipstick Positive (Negative); Occult Blood-Urine 50 /ul (Negative); Protein-Dipstick 15 mg/dl (Negative); Specific Gravity, Urine 1.025 (1.002-1.030); Urine Bilirubin Dipstick Negative (Negative); Urine Clarity Clear (Clear); Urine Urobilinogen Normal (Normal)
--- NOTE | 2022-05-13 22:41 | ED.RN ---
This RN informed of IV extravasation during IV contrast during CT scan. Measures 3.5 cm in size, slightly bruised with moderate swelling. Pt denies any pain. Wrapped with JOSE wrap and applied a warm compress.
[2022-05-13 22:47] LABS: Bacteria 2+ /hpf (None Seen); White Blood Cells 10-25 SEEN /hpf (0-5)
[2022-05-13 22:53] LABS: Internal QC Validated? YES +Cl - CLEAR BKGD; Pregnancy, Serum, hCG Quali. NEGATIVE Negative
[2022-05-13 23:00] LABS: ALB/GLOB Ratio 0.9 RATIO (0.9-2.4); AST(SGOT) 30 U/L (15-37); Alanine Aminotransfer ALT/SGPT 36 U/L (13-56); Albumin, Serum 3.3 g/dL (3.2-5.0); Alkaline Phosphatase 72 U/L (45-117); Anion Gap 3 (5-15); BUN 11 mg/dL (7-18); Calcium,Total 8.5 mg/dL (8.5-10.1); Chloride 108 mmol/L (98-107); Creatinine, Serum 0.69 mg/dL (0.55-1.02); EST Glomerular Filtration Rate 100 mL/min (>60); Est Glom Filt Rate - Afr Amer 121 mL/min (>60); Estimated Creatinine Clearance 92.65 ml/min; Globulin 3.5 g/dL (2.2-4.2); Glucose 79 mg/dL (74-106); Lipase 69 U/L (73-393); Potassium 3.7 mmol/L (3.5-5.1); Protein, Total 6.8 g/dL (6.4-8.2); Sodium Level 140 mmol/L (136-145)
[2022-05-13] MEDS: Nitrofurantoin Macrocrystals 100 MG Capsule PO (23:12)
--- NOTE | 2022-05-13 23:19 | ED.RN ---
IV site has decreased in swelling and bruising. Education provided about home care.
== END 2022-05-13 23:16 | disposition home or self-care (01) ==
PROVIDERS: Emergency Provider Emergency Medicine; PCP Family Medicine; Visit Provider Emergency Medicine
DX: R10.32 Left lower quadrant pain (principal); D68.59 Other primary thrombophilia; K91.2 Postsurgical malabsorption, not elsewhere classified; N39.0 Urinary tract infection, site not specified; K59.00 Constipation, unspecified; F17.290 Nicotine dependence, other tobacco product, uncomplicated; Z79.01 Long term (current) use of anticoagulants; Z79.899 Other long term (current) drug therapy
CPT/HCPCS: 74177; 80053; 81001; 83690; 84703; 85025; 87077; 87086; 87088; 87186; 96361; 96374; 96375; 99284; J7030; Q9967; A4216; J2405

== ENCOUNTER 2022-07-19 08:05 | Emergency (ER) | payer MEDICAID, SELFPAY ==
[2022-07-19 08:06] VITALS: BP 141/93; PULSE 75; RESP 18; TEMP 36.7; O2SAT 100; BMI 27.3
--- NOTE | 2022-07-19 08:39 | CT_ITS ---
STUDY: CT ABDOMEN AND PELVIS WITH CONTRAST REASON FOR EXAM: Female, 42 years old. Abdominal pain -- IV PO Contrast. Patient has a history of a short gut syndrome. RADIATION DOSAGE (If Supplied By Facility): CTDIvol = ( 14.37 ) mGy, DLP = ( 757.36 ) mGycm TECHNIQUE: Transaxial images were obtained from the dome of the diaphragm to the symphysis pubis with oral contrast. Oral and IV Gastrografin and 100mL Isovue-300 was administered. Sagittal and coronal images were reconstructed. Individualized dose optimization techniques were used for this CT. COMPARISON: Comparison is made with prior study dated May 13, 2022. FINDINGS: The visualized lung bases are unremarkable. The visualized portions of the heart are within normal limits. Mild degree of central intrahepatic biliary ductal dilatation. Fatty infiltration of the liver. There are surgical clips in the gallbladder fossa consistent with a prior cholecystectomy. Normal spleen. Normal pancreas. Normal bilateral adrenal glands. Normal right kidney. Normal left kidney. Normal visualized stomach. Multiple surgical anastomosis seen in the right mid and lower abdomen. Marked degree of distention with the sacralization of the distal small bowel in the left upper quadrant. Large amount of fecal material is seen in the colon. This has progressed as compared to prior study. Normal abdominal aorta. Normal inferior vena cava. Normal retroperitoneum. Normal urinary bladder. Normal abdominal wall. Spondylolysis of the L5 vertebra without significant spondylolisthesis. CT/Abdomen/Pelvis WITH Contrast IMPRESSION: Dilated small bowel loop in the left mid and lower abdomen. Large amount of fecal material is seen in the colon. Fatty position of the liver. Mildly dilated central intrahepatic biliary ducts most likely secondary to prior cholecystectomy Electronically Signed: Steve Gan MD at 11:21 EST ,
[2022-07-19 08:56] LABS: Bacteria 0 SEEN /hpf (None Seen); Mucous, Urine 0 SEEN /hpf (<or=2+); Red Blood Cells-Urine 0 SEEN /hpf (0-5); Squamous Epithelial Cells - UA 0 SEEN /hpf (5-10)
[2022-07-19 09:01] LABS: Color, Urine Yellow (Yellow); Glucose, Dipstick Normal (Normal); Ketone-Dipstick Negative (Negative); Leukocyte Esterase-Dipstick 100 /ul (Negative); Nitrite-Dipstick Negative (Negative); Occult Blood-Urine 25 /ul (Negative); Protein-Dipstick Negative (Negative); Urine Bilirubin Dipstick Negative (Negative); Urine Clarity Clear (Clear); Urine Urobilinogen Normal (Normal)
[2022-07-19 09:14] LABS: White Blood Cells 5-10 SEEN /hpf (0-5)
[2022-07-19] MEDS: 0.9% Normal Saline 1,000 ML 1000 ML IV (09:15)
[2022-07-19] MEDS: Ondansetron 4 MG/2 ML Vial IV (09:16)
[2022-07-19] MEDS: Morphine 4 MG/ML Syringe IV (09:17)
[2022-07-19 09:29] LABS: Absolute Lymphocyte Count 1.37 X10^3/uL (0.83-4.51); Absolute Neutrophil Count 3.3 X10^3/uL (2.0-7.7); Basophil# 0.03 X10^3/uL; Basophil% 0.6 % (0-1); Eosinophil# 0.07 X10^3/uL; Eosinophils% 1.3 % (0-5); Hematocrit 38.7 % (37-47); Hemoglobin 12.3 g/dL (12.0-15.0); Lymphocyte # 1.37 X10^3/ul (0.83-4.51); Lymphocyte % 25.7 % (19-41); Mean Corp Hgb Conc 31.8 g/dL (32-36); Mean Corpuscular Hgb 29.9 pg (27.0-32.0); Mean Corpuscular Volume 94.2 fL (81-99); Mean Platelet Vol. 9.6 fl (6.2-12.0); Monocyte# 0.52 X10^3/uL; Monocyte% 9.7 % (0-10); NRBC Flagged by Analyzer 0 % (0-5); Neutrophil # 3.33 X10^3/uL (2.7-7.7); Neutrophil % 62.3 % (47-70); Platelet Count 173 K/mm3 (150-450); RBC Distribution Width CV 13.2 % (11.6-14.6); RBC Distribution Width SD 45.3 fl (35.1-43.9); Red Blood Count 4.11 M/mm3 (4.2-5.4); White Blood Count 5.3 K/mm3 (4.4-11.0)
[2022-07-19 09:44] LABS: Internal QC Validated? YES +Cl - CLEAR BKGD; Pregnancy, Serum, hCG Quali. NEGATIVE Negative
[2022-07-19 09:45] LABS: AST(SGOT) 19 U/L (15-37); Alanine Aminotransfer ALT/SGPT 29 U/L (13-56); Albumin, Serum 3.4 g/dL (3.2-5.0); Alkaline Phosphatase 75 U/L (45-117); Anion Gap 6 (5-15); BUN 7 mg/dL (7-18); BUN/Creat Ratio 11.3 RATIO (10-20); Chloride 108 mmol/L (98-107); Creatinine, Serum 0.62 mg/dL (0.55-1.02); EST Glomerular Filtration Rate 113 mL/min (>60); Est Glom Filt Rate - Afr Amer 136 mL/min (>60); Estimated Creatinine Clearance 103.11 ml/min; Globulin 3.5 g/dL (2.2-4.2); Glucose 90 mg/dL (74-106); Potassium 3.2 mmol/L (3.5-5.1); Protein, Total 6.9 g/dL (6.4-8.2); Sodium Level 140 mmol/L (136-145)
[2022-07-19] MEDS: Potassium Chloride Oral Tablet 20 MEQ 40 MEQ PO (11:01)
--- NOTE | 2022-07-19 11:41 | ED.VIS.GI ---
HPI HPI - GI History of Present Illness Chief Complaint: Abd Pain Informant: patient Abdominal Pain/Flank Pain Onset: Yesterday Context: Gradual Onset Timing: Continuous Quality: Aching and Cramping Location: LLQ Worsened by: - (Ambulation) Relieved by: Nothing Nausea/Vomiting/Emesis GI Symptom: Negative for Nausea or Vomiting Diarrhea/Melena/Hematochezia GI Symptom: Positive for Diarrhea; Negative for Melena or Hematochezia Associated Symptoms Associated Symptoms: Positive for Dysuria; Negative for Frequency or Hematuria Narrative Narrative: Patient presents with abdominal pain that began yesterday. Patient states it is gradually getting worse. Patient states it is constant. Patient describes it as aching and cramping. Patient states it is mainly over the left lower abdomen. Patient states it is worse with ambulation. Patient denies any nausea or vomiting. Patient admits to some diarrhea. Patient admits to some dysuria but denies any frequency or hematuria. Patient states she has an IUD in place and is concerned that there could be a complication from that. Patient denies any abnormal vaginal bleeding or discharge. [facility] Medical History Blood clotting disorder Kidney stone Protein C deficiency Protein S deficiency Short gut syndrome Home Medications ergocalciferol (vitamin D2) 1,250 mcg (50,000 unit) capsule 50,000 unit PO MOTUWETH supplement 10/09/14 [History Last Taken 08/17/21 08:00] calcium carbonate 500 mg calcium (1,250 mg) chewable tablet (Calcium 500) 500 mg PO BID #60 tabs 08/22/21 [Rx Last Taken Unknown] enoxaparin 80 mg/0.8 mL subcutaneous syringe (Lovenox) 70 mg (0.7 mL) subcut BID blood thin #8 mL 10/31/21 [Rx Last Taken Unknown] dhatnxob-[id number] 2.25 mg-folic acid 100 [id number] acid tablet 1 tab PO TID 10/31/21 [History Last Taken Unknown] magnesium L-lactate 84 mg tablet,extended release 252 mg PO TID SUPPLEMENT #90 tabs 03/31/22 [Rx Last Taken Unknown] potassium chloride 20 mEq tablet,extended release 20 meq PO BID #60 tabs 03/31/22 [Rx Last Taken Unknown] nitrofurantoin monohydrate/macrocrystals 100 mg capsule (Macrobid) 100 mg PO Q12H 5 days #10 caps 05/13/22 [Rx Last Taken Unknown] promethazine 25 mg tablet 25 mg PO Q6H PRN PRN Nausea #10 TABLETS 07/19/22 [Rx Last Taken Unknown] Allergy/AdvReac Type Severity Reaction Status Date / Time adhesive Allergy Itching Verified 05/13/22 21:22 amoxicillin [Amoxicillin] Allergy Hives Verified 05/13/22 21:22 Penicillins Allergy Hives Verified 05/13/22 21:22 Family History Grandmother Diabetes Heart disease Mother Heart disease Grandfather Lung cancer Liver cancer Brain cancer Surgical History History of removal of ovarian cyst Hx of cholecystectomy S/P hernia repair STEPS procedure Social History Smoking Status: Current every day smoker tobacco type: cigarettes and e-cigarettes alcohol intake: current alcohol intake frequency: holidays/special occasions only substance use type: does not use caffeine: Yes what type of physical activity do you participate in: none seatbelt use: always do you feel safe at home: Yes additional social history: - Lul Patient works with [employer] ROS ED Constitutional Constitutional ED: Reports chills and subjective; Denies fever(s) Eyes Eyes: Denies blurry vision or change in vision ENT ENT ED: Denies rhinorrhea or sore throat Cardiovascular Cardiovascular: Denies chest pain or palpitations Respiratory/Chest Respiratory/Chest: Denies cough or dyspnea Gastrointestinal Gastrointestinal: Reports abdominal pain and diarrhea; Denies nausea or vomiting Genitourinary Genitourinary ED: Reports dysuria; Denies hematuria Musculoskeletal Musculoskeletal: Denies back pain or neck pain Integumentary Denies abscess or rash Neurologic Neurologic: Reports headache(s); Denies weakness Allergic/Immunologic Allergic/Immunologic ED: Denies mouth swelling or urticaria EXAM Physical Exam Const Vital Signs: 07/19/22 08:06 Temperature 98.0 F Temperature Source Temporal Pulse Rate 75 Respiratory Rate 18 Blood Pressure 141/93 H Blood Pressure Mean 109 Pulse Ox 100 Oxygen Delivery Method Room Air Positive well nourished and well developed General Appearance ED: well developed and NAD HEENT Reports moist mucous membranes Neck supple and no JVD Resp normal respiratory effort and clear to auscultation bilaterally Cardio regular rate, regular rhythm and no murmurs GI normal to inspection, nondistended, normoactive bowel sounds Palpation: soft and tender LLQ and suprapubic Extremity normal to inspection General Extremety ED: Negative for edema or tenderness General Extremity: Negative for edema Neuro oriented x3, CN's II-XII intact bilaterally and no sensory deficits noted Sensorium / Orientation: alert Motor Exam: strength 5/5 throughout Psych mental status grossly normal Skin no rashes or lesions noted MDM MDM MDM Narrative Medical decision making narrative: Differential diagnosis includes bowel obstruction, perforation, diverticulitis, urinary tract infection, ureteral calculus, pyelonephritis, and enteritis. CBC will be obtained to assess for leukocytosis and anemia. Comprehensive metabolic profile will be obtained to assess for hepatic function, renal function, and electrolyte abnormality. Urinalysis will be obtained to assess for urinary tract infection and hematuria. Serum hCG will be obtained to assess for . CT scan of the abdomen pelvis will be obtained to assess for diverticulitis, perforation, and obstruction. Lab Data Attestation: I reviewed the patient's lab results. Lab results narrative: CBC was reviewed and was within normal limits. Comprehensive metabolic profile was reviewed and was within normal limits. Urinalysis was reviewed and was within normal limits. Serum hCG was reviewed and was negative. Labs: Laboratory Results - last 24 hr 07/19/22 07/19/22 07/19/22 08:45 09:16 09:16 WBC 5.3 RBC 4.11 L Hgb 12.3 Hct 38.7 MCV 94.2 MCH 29.9 MCHC 31.8 L RDW Std Deviation 45.3 H RDW Coeff of Jim 13.2 Plt Count 173 MPV 9.6 Immature Gran % (Auto) 0.400 Neut % (Auto) 62.3 Lymph % (Auto) 25.7 [place] % (Auto) 9.7 Eos % (Auto) 1.3 Baso % (Auto) 0.6 Absolute Neuts (auto) 3.3 Absolute Lymphs (auto) 1.37 Nucleated RBC % 0 Sodium 140 Potassium 3.2 L Chloride 108 H Carbon Dioxide 26.0 Anion Gap 6 BUN 7 Creatinine 0.62 Estim Creat Clear Calc 103.11 Est GFR (MDRD) Af Amer 136 Est GFR (MDRD) Non-Af 113 BUN/Creatinine Ratio 11.3 Glucose 90 Calcium 9.0 Total Bilirubin 1.00 AST 19 ALT 29 Alkaline Phosphatase 75 Total Protein 6.9 Albumin 3.4 Globulin 3.5 Albumin/Globulin Ratio 1.0 Serum , Qual Urine Color Yellow Urine Clarity Clear Urine pH 6.0 Ur Specific [place] 1.010 Urine Protein Negative Urine Glucose (UA) Normal Urine Ketones Negative Urine Occult Blood 25 H Urine Nitrite Negative Urine Bilirubin Negative Urine Urobilinogen Normal Ur Leukocyte Esterase 100 H Urine RBC 0 SEEN Urine WBC 5-10 SEEN Ur Squamous Epith Cells 0 SEEN Urine Bacteria 0 SEEN Urine Mucus 0 SEEN 07/19/22 09:16 WBC RBC Hgb Hct MCV MCH MCHC RDW Std Deviation RDW Coeff of Jim Plt Count MPV Immature Gran % (Auto) Neut % (Auto) Lymph % (Auto) [place] % (Auto) Eos % (Auto) Baso % (Auto) Absolute Neuts (auto) Absolute Lymphs (auto) Nucleated RBC % Sodium Potassium Chloride Carbon Dioxide Anion Gap BUN Creatinine Estim Creat Clear Calc Est GFR (MDRD) Af Amer Est GFR (MDRD) Non-Af BUN/Creatinine Ratio Glucose Calcium Total Bilirubin AST ALT Alkaline Phosphatase Total Protein Albumin Globulin Albumin/Globulin Ratio Serum , Qual NEGATIVE Urine Color Urine Clarity Urine pH Ur Specific [place] Urine Protein Urine Glucose (UA) Urine Ketones Urine Occult Blood Urine Nitrite Urine Bilirubin Urine Urobilinogen Ur Leukocyte Esterase Urine RBC Urine WBC Ur Squamous Epith Cells Urine Bacteria Urine Mucus Radiography Diagnostic Testing: Clinical Impression(s) from Imaging Studies Abdomen/Pelvis CT 07/19/22 08:39 IMPRESSION: Dilated small bowel loop in the left mid and lower abdomen. Large amount of fecal material is seen in the colon. Fatty position of the liver. Mildly dilated central intrahepatic biliary ducts most likely secondary to prior cholecystectomy Electronically Signed: Steve Gan MD at 11:21 EST , CT scan of the abdomen and pelvis was reviewed. There is dilated loop of bowel in the left mid and lower abdomen. There is a large amount of fecal material noted. There is no other acute abnormality. This was interpreted by the radiologist and was also independently reviewed by myself. Differential Diagnosis Abdominal Pain: Bowel obstruction Reason(s) bowel obstruction less likely: bowel sounds present on exam and no evidence of bowel obstruction on imaging studies and UTI Reason(s) UTI less likely: no evidence of infection on urinalysis Differential Diagnosis: Diverticulitis Differential Diagnosis: Bowel perforation Why less likely: There is no rebound on examination. There is no guarding noted on examination. Treatment and Re-Evaluation :: Patient is feeling better on reevaluation. Patient had no further episodes of vomiting here in the emergency department. Patient was advised of her findings. Patient was given a prescription for Phenergan. Patient was instructed to start with a liquid diet and advance as tolerated. Patient was instructed to take laxatives as needed. Patient was instructed to follow-up with her primary care physician in 5 to 7 days. Patient understood and was agreeable with the plan. All questions were answered. Discharge Plan Triage Chief Complaint: Abd Pain ED Provider: Lul Ma Dx/Rx/DC Orders Clinical Impression: Abdominal pain Instructions: ED Abdominal Pain Unkn Cause Fem Prescriptions: New promethazine [promethazine] 25 mg tablet 25 mg PO Q6H PRN PRN (Reason: Nausea) Qty: 10 0RF No Action ergocalciferol (vitamin D2) 50,000 UNIT capsule 50,000 unit PO MOTUWETH calcium carbonate [Calcium 500] 500 mg calcium (1,250 mg) tablet,chewable 500 mg PO BID Qty: 60 0RF [id number] 2.25 mg iron- 100 mcg Tablet 1 tab PO TID enoxaparin [Lovenox] 80 mg/0.8 mL Syringe 70 mg SUBCUT BID Qty: 8 0RF magnesium L-lactate 84 mg tablet extended release 252 mg PO TID Qty: 90 0RF potassium chloride 20 mEq tablet extended release 20 meq PO BID Qty: 60 0RF nitrofurantoin monohyd/m-cryst [Macrobid] 100 mg capsule 100 mg PO Q12H 5 Days Qty: 10 0RF Rx Instructions: must administer with a meal/food Primary Care Provider: José Luis Motley Referrals: José Luis Motley MD [Primary Care Provider] - 3-5 Days Disposition Disposition: Home, Self Care
== END 2022-07-19 12:13 | disposition home or self-care (01) ==
PROVIDERS: Emergency Provider Emergency Medicine; PCP Family Medicine; Visit Provider Emergency Medicine
DX: R10.32 Left lower quadrant pain (principal); F17.210 Nicotine dependence, cigarettes, uncomplicated; Z97.5 Presence of (intrauterine) contraceptive device
CPT/HCPCS: 74177; 80053; 81001; 84703; 85025; 87086; 96361; 96374; 96375; 99283; J7030; Q9967; J2405

== ENCOUNTER → 2022-07-30 | Outpatient (CLI) | payer MEDICAID, SELFPAY ==
[2022-07-30 15:55] LABS: HIV - WCH Non-Reactive (Nonreactive); Hepatitis C Antibody Non-Reactive (Nonreactive); Syphilis Antibodies Non-reactive
[2022-08-01 08:15] LABS: HSV 1 IgG 1.37 index (0.00-0.90)
[2022-08-01 21:07] LABS: Chlamydia By Nucleic Acid AMP Negative (Negative)
[2022-08-01 21:29] LABS: Gonococcus By Nucleic Acid AMP Negative (Negative)
== END | disposition home or self-care (01) ==
PROVIDERS: PCP Family Medicine; Referring Provider Nurse Practitioner Women's Health; Visit Provider Nurse Practitioner Women's Health
DX: N89.8 Other specified noninflammatory disorders of vagina (principal); Z20.2 Contact with and (suspected) exposure to infections with a predominantly sexual mode of transmission
CPT/HCPCS: 36415; 86695; 86696; 86703; 86780; 86803; 87070; 87077; 87205; 87491; 87591

== ENCOUNTER → 2022-08-15 | Outpatient (CLI) | payer MEDICAID, SELFPAY | END | disposition home or self-care (01) | LOC: OPBI 13:16 | PROVIDERS: PCP Family Medicine; Visit Provider Nurse Practitioner Women's Health | DX: Z00.00 Encounter for general adult medical examination without abnormal findings (principal) ==

== ENCOUNTER → 2022-09-11 | Outpatient (CLI) | payer MEDICAID, SELFPAY | END | disposition home or self-care (01) | LOC: LABSPEC 12:00 | PROVIDERS: PCP Family Medicine; Referring Provider Nurse Practitioner Women's Health; Visit Provider Nurse Practitioner Women's Health | DX: R30.0 Dysuria (principal) | CPT/HCPCS: 87086 ==

== ENCOUNTER 2022-09-15 18:59 | Emergency (ER) | payer MEDICAID, SELFPAY ==
[2022-09-15 19:00] VITALS: BP 124/84; PULSE 72; RESP 15; TEMP 36.3; O2SAT 100; BMI 26.8
--- NOTE | 2022-09-15 19:15 | EX.ED.DYSGE1 ---
HPI <VERONICA Scott - Last Filed: 09/15/22 21:26> History of Present Illness Chief Complaint: Abd Pain Narrative Narrative: Patient is a 42-year-old female with history of clotting disorder that takes Lovenox days, short gut syndrome who presents to the emergency department for generalized belly upset, increased frequency of loose stools, more belching, and generalized abdominal cramping. Patient denies any fevers however have subjective chills. Patient denies any blood in her stool or vomit. Patient states that her stools are smelling worse than usual. She is concerned that she may have an infection. She also complains of worsening urinary symptoms such as pain with urination as well as frequency. The symptoms been going on for the last 4 days PFSH <VERONICA Scott - Last Filed: 09/15/22 21:26> [facility] Medical History Anxiety Blood clotting disorder Kidney stone Protein C deficiency Protein S deficiency Short gut syndrome Smoker Home Medications ergocalciferol (vitamin D2) 1,250 mcg (50,000 unit) capsule 50,000 unit PO MOTUWETH supplement 10/09/14 [History Last Taken 08/17/21 08:00] calcium carbonate 500 mg calcium (1,250 mg) chewable tablet (Calcium 500) 500 mg PO BID #60 tabs 08/22/21 [Rx Last Taken Unknown] enoxaparin 80 mg/0.8 mL subcutaneous syringe (Lovenox) 70 mg (0.7 mL) subcut BID blood thin #8 mL 10/31/21 [Rx Last Taken Unknown] klsbmwxs-cxl-hlpb 2.25 mg-folic acid 100 [id number] acid tablet 1 tab PO TID 10/31/21 [History Last Taken Unknown] magnesium L-lactate 84 mg tablet,extended release 252 mg PO TID SUPPLEMENT #90 tabs 03/31/22 [Rx Last Taken Unknown] potassium chloride 20 mEq tablet,extended release 20 meq PO BID #60 tabs 03/31/22 [Rx Last Taken Unknown] dicyclomine 20 mg tablet 20 mg PO TID #20 tabs 09/15/22 [Rx Last Taken Unknown] promethazine 25 mg tablet 25 mg PO TID PRN nausea and vomiting #20 tabs 09/15/22 [Rx Last Taken Unknown] Allergy/AdvReac Type Severity Reaction Status Date / Time adhesive Allergy Itching Verified 09/15/22 19:02 amoxicillin [Amoxicillin] Allergy Hives Verified 09/15/22 19:02 Penicillins Allergy Hives Verified 09/15/22 19:02 Family History Grandmother Diabetes Heart disease Mother Heart disease Grandfather Lung cancer Liver cancer Brain cancer Surgical History History of removal of ovarian cyst Hx of cholecystectomy S/P hernia repair STEPS procedure Social History Smoking Status: Current every day smoker tobacco type: cigarettes and e-cigarettes alcohol intake: current alcohol intake frequency: holidays/special occasions only substance use type: does not use caffeine: Yes what type of physical activity do you participate in: none seatbelt use: always do you feel safe at home: Yes additional social history: - Lul Patient works with [employer] <VERONICA Scott - Last Filed: 09/15/22 21:26> ROS ED ROS Narrative Constitutional: Negative for fever, chills, weight loss, weakness Eyes: Negative for vision loss, vision change, double vision ENT: Negative for any sore throat, ear pain, congestion Cardiovascular: Negative for any chest pain, tightness, palpitations Respiratory: Negative for any cough, sputum production, hemoptysis, dyspnea, dyspnea on exertion, orthopnea Gastrointestinal: Negative for any vomiting, constipation, blood in stool, blood in vomit. Positive for abdominal pain, nausea, diarrhea : Negative for any urinary frequency, dysuria, retention, blood in urine Muscle skeletal: Negative for any muscle joint pain, stiffness, myalgias, arthralgias, neck pain, back pain Neurological: Negative for any headache, syncope, numbness or tingling, dizziness Skin: Negative for any rashes, lumps, itching, abrasions, lacerations Psychiatric: Negative for any depression, anxiety, stress, suicidal ideation, homicidal ideation Hematologic: Negative for any easy bruising, excessive bruising, easy bleeding Allergies: Negative for any eczema, hives, rash EXAM <VERONICA Scott - Last Filed: 04/29/23 21:26> Physical Exam Narrative Exam Narrative: Vital signs reviewed. HEET: Head normocephalic atraumatic, TMs clear bilaterally. Posterior pharynx is clear, moist mucous membranes. Nares clear bilaterally. Neck: Supple with no lymphadenopathy or tenderness. No signs of meningismus, negative jolt sign. Cardiac: Regular rate and rhythm no murmurs gallops or rubs, equal peripheral pulses bilaterally. Respiratory: Lungs clear to auscultation bilaterally. No chest tenderness. Abdomen: Soft, nontender, nondistended. No abdominal bruit or pulsatile masses. No hepatosplenomegaly. Active bowel sounds in all quadrants. Extremities: No peripheral edema, no signs of gross trauma or deformity. Active full range of motion of all extremities. Neuro: Cranial nerves II through XII intact, no focal neurological deficits. Skin: Clean dry and intact with no rash, purpura, petechiae, vesicles or pustules. Backs/flank: No CVA tenderness, no midline spinal tenderness, no deformity. Psych: Normal mood and affect. No SI, HI or acute psychosis. Const Vital Signs: 09/15/22 19:00 09/15/22 21:29 Temperature 97.4 F L Temperature Source Temporal Pulse Rate 72 75 Respiratory Rate 15 16 Blood Pressure 124/84 H 120/74 Blood Pressure Mean 97 89 Pulse Ox 100 99 Oxygen Delivery Method Room Air Room Air <Dr. Guanako Richardson MD - Last Filed: 09/15/22 23:39> Physical Exam Const Vital Signs: 09/15/22 19:00 09/15/22 21:29 Temperature 97.4 F L Temperature Source Temporal Pulse Rate 72 75 Respiratory Rate 15 16 Blood Pressure 124/84 H 120/74 Blood Pressure Mean 97 89 Pulse Ox 100 99 Oxygen Delivery Method Room Air Room Air MDM <VERONICA Scott - Last Filed: 09/15/22 21:26> [facility] Lab Data Labs: Laboratory Results - last 24 hr 09/15/22 09/15/22 09/15/22 19:45 19:45 19:45 WBC 7.2 RBC 4.38 Hgb 13.1 Hct 41.1 MCV 93.8 MCH 29.9 MCHC 31.9 L RDW Std Deviation 45.4 H RDW Coeff of Jim 13.2 Plt Count 203 MPV 9.7 Immature Gran % (Auto) 0.300 Neut % (Auto) 61.6 Lymph % (Auto) 30.0 [place] % (Auto) 6.0 Eos % (Auto) 1.7 Baso % (Auto) 0.4 Absolute Neuts (auto) 4.4 Absolute Lymphs (auto) 2.15 Sodium 138 Potassium 3.5 Chloride 105 Carbon Dioxide 29.0 Anion Gap 4 L BUN 14 Creatinine 0.77 Estim Creat Clear Calc 83.03 Est GFR (MDRD) Af Amer 106 Est GFR (MDRD) Non-Af 87 BUN/Creatinine Ratio 18.1 Glucose 81 Calcium 9.1 Total Bilirubin 0.50 AST 22 ALT 29 Alkaline Phosphatase 81 Total Protein 7.1 Albumin 3.6 Globulin 3.5 Albumin/Globulin Ratio 1.0 Lipase 15 Urine Color Yellow Urine Clarity Sl. Cloudy Urine pH 5.0 Ur Specific [place] 1.020 Urine Protein 15 H Urine Glucose (UA) Normal Urine Ketones 5 H Urine Occult Blood 10 H Urine Nitrite Negative Urine Bilirubin 1 H Urine Urobilinogen Normal Ur Leukocyte Esterase 100 H Urine RBC 0-5 SEEN Urine WBC 0 SEEN Ur Squamous Epith Cells 0-5 SEEN Urine Bacteria RARE Urine Mucus 0 SEEN Urine Test Negative Treatment and Re-Evaluation :: Patient appears generally well, patient appears nontoxic, vital signs are stable. Patient presents to the emergency department for generalized abdominal pain, diarrhea has been more than normal. Patient is concerned she may have a GI bug. She also complained of urinary symptoms. Patient's physical exam is grossly unremarkable. Patient abdominal exam was unremarkable. The differential is acute Penta situs, bowel obstruction. Patient has no pain to the right lower quadrant, patient is now having vomiting and still having bowel movements and passing gas. Patient did receive laboratory values, patient CBC was unremarkable, chemistries were unremarkable lipase was negative. Patient's urinalysis was negative for any infection. Patient did receive IV fluids, IV Zofran, IM Bentyl. On reexamination, the patient had no vomiting, no diarrhea. I did order a stool sample however she was unable to go. Patient is able to pass a p.o. challenge. At this time, I believe the patient is safe for discharge. She will follow-up closely with her specialist. She will be given as Phenergan as well as Bentyl for home. All questions answered, return precautions given <Dr. Guanako Richardson MD - Last Filed: 09/15/22 23:39> [facility] Lab Data Attestation: I reviewed the patient's lab results. Labs: Laboratory Results - last 24 hr 09/15/22 09/15/22 09/15/22 19:45 19:45 19:45 WBC 7.2 RBC 4.38 Hgb 13.1 Hct 41.1 MCV 93.8 MCH 29.9 MCHC 31.9 L RDW Std Deviation 45.4 H RDW Coeff of Jim 13.2 Plt Count 203 MPV 9.7 Immature Gran % (Auto) 0.300 Neut % (Auto) 61.6 Lymph % (Auto) 30.0 [place] % (Auto) 6.0 Eos % (Auto) 1.7 Baso % (Auto) 0.4 Absolute Neuts (auto) 4.4 Absolute Lymphs (auto) 2.15 Sodium 138 Potassium 3.5 Chloride 105 Carbon Dioxide 29.0 Anion Gap 4 L BUN 14 Creatinine 0.77 Estim Creat Clear Calc 83.03 Est GFR (MDRD) Af Amer 106 Est GFR (MDRD) Non-Af 87 BUN/Creatinine Ratio 18.1 Glucose 81 Calcium 9.1 Total Bilirubin 0.50 AST 22 ALT 29 Alkaline Phosphatase 81 Total Protein 7.1 Albumin 3.6 Globulin 3.5 Albumin/Globulin Ratio 1.0 Lipase 15 Urine Color Yellow Urine Clarity Sl. Cloudy Urine pH 5.0 Ur Specific [place] 1.020 Urine Protein 15 H Urine Glucose (UA) Normal Urine Ketones 5 H Urine Occult Blood 10 H Urine Nitrite Negative Urine Bilirubin 1 H Urine Urobilinogen Normal Ur Leukocyte Esterase 100 H Urine RBC 0-5 SEEN Urine WBC 0 SEEN Ur Squamous Epith Cells 0-5 SEEN Urine Bacteria RARE Urine Mucus 0 SEEN Urine Test Negative Treatment and Re-Evaluation Comments:: Seen and evaluated independently and in conjunction with nurse practitioner. Agree with notes above unless documented otherwise. Increase in her chronic diarrhea along with some nausea and vomiting and mild abdominal discomfort. No specific risk factors for bacterial enteritis, no travel out of the area or recent antibiotics, ingestion of undercooked meats or raw fish. No known contacts with similar symptoms. On exam her abdomen is benign. She is well-appearing not tachycardic or appearing excessively dehydrated. Labs unremarkable. Supportive care advised, she did not have diarrhea while in the emergency department to send for testing, we discussed reasons to return she comfortable with that plan. Discharge Plan Triage Chief Complaint: Abd Pain ED Midlevel Provider: Kyler De Santiago ED Provider: Guanako Richardson Dx/Rx/DC Orders Clinical Impression: Gastroenteritis Instructions: ED Gastritis (Adult), ED Gastroenteritis, Noninfectious Prescriptions: New promethazine 25 mg tablet 25 mg PO TID PRN (Reason: nausea and vomiting) Qty: 20 0RF dicyclomine 20 mg tablet 20 mg PO TID Qty: 20 0RF No Action ergocalciferol (vitamin D2) 50,000 UNIT capsule 50,000 unit PO MOTUWETH calcium carbonate [Calcium 500] 500 mg calcium (1,250 mg) tablet,chewable 500 mg PO BID Qty: 60 0RF rcax-yoc-nuag-JY-[id number]-AA 2.25 mg iron- 100 mcg Tablet 1 tab PO TID enoxaparin [Lovenox] 80 mg/0.8 mL Syringe 70 mg SUBCUT BID Qty: 8 0RF magnesium L-lactate 84 mg tablet extended release 252 mg PO TID Qty: 90 0RF potassium chloride 20 mEq tablet extended release 20 meq PO BID Qty: 60 0RF Primary Care Provider: José Luis Motley Referrals: José Luis Motley MD [Primary Care Provider] - Activity Restrictions/Additional Instructions: Please advance your diet as tolerated. Use medications as needed Disposition Disposition: Home, Self Care Discharge Date/Time: 09/15/22 22:17
[2022-09-15] MEDS: Ondansetron 4 MG/2 ML Vial IV (19:44)
[2022-09-15] MEDS: 0.9% Normal Saline 1,000 ML 1000 ML IV (19:46)
[2022-09-15] MEDS: Dicyclomine 20 MG/2 ML Vial IM (19:48)
[2022-09-15 19:51] LABS: Mucous, Urine 0 SEEN /hpf (<or=2+); White Blood Cells 0 SEEN /hpf (0-5)
[2022-09-15 19:53] LABS: Color, Urine Yellow (Yellow); Glucose, Dipstick Normal (Normal); Ketone-Dipstick 5 mg/dl (Negative); Leukocyte Esterase-Dipstick 100 /ul (Negative); Nitrite-Dipstick Negative (Negative); Occult Blood-Urine 10 /ul (Negative); Protein-Dipstick 15 mg/dl (Negative); Urine Bilirubin Dipstick 1 mg/dL (Negative); Urine Clarity Sl. Cloudy (Clear); Urine Urobilinogen Normal (Normal)
[2022-09-15 20:00] LABS: Bacteria RARE /hpf (None Seen); Red Blood Cells-Urine 0-5 SEEN /hpf (0-5); Squamous Epithelial Cells - UA 0-5 SEEN /hpf (5-10)
[2022-09-15 20:01] LABS: Internal QC Validated? YES +Cl - CLEAR BKGD; Pregnancy, Urine Negative Negative
[2022-09-15 20:02] LABS: Hematocrit 41.1 % (37-47); Hemoglobin 13.1 g/dL (12.0-15.0); Mean Corp Hgb Conc 31.9 g/dL (32-36); Mean Corpuscular Hgb 29.9 pg (27.0-32.0); Mean Corpuscular Volume 93.8 fL (81-99); Mean Platelet Vol. 9.7 fl (6.2-12.0); Platelet Count 203 K/mm3 (150-450); RBC Distribution Width CV 13.2 % (11.6-14.6); RBC Distribution Width SD 45.4 fl (35.1-43.9); Red Blood Count 4.38 M/mm3 (4.2-5.4); White Blood Count 7.2 K/mm3 (4.4-11.0)
[2022-09-15 20:03] LABS: Absolute Neutrophil Count 4.4 X10^3/uL (2.0-7.7); Basophil% 0.4 % (0-1); Eosinophils% 1.7 % (0-5); Neutrophil # 4.41 X10^3/uL (2.7-7.7); Neutrophil % 61.6 % (47-70); POSITIVE COUNT NO; POSITIVE DIFFERENTIAL NO; POSITIVE MORPHOLOGY NO
[2022-09-15 20:04] LABS: Absolute Lymphocyte Count 2.15 X10^3/uL (0.83-4.51); Basophil# 0.03 X10^3/uL; Eosinophil# 0.12 X10^3/uL; Lymphocyte # 2.15 X10^3/ul (0.83-4.51); Monocyte# 0.43 X10^3/uL
[2022-09-15 20:11] LABS: AST(SGOT) 22 U/L (15-37); Alanine Aminotransfer ALT/SGPT 29 U/L (13-56); Albumin, Serum 3.6 g/dL (3.2-5.0); Alkaline Phosphatase 81 U/L (45-117); Anion Gap 4 (5-15); BUN 14 mg/dL (7-18); BUN/Creat Ratio 18.1 RATIO (10-20); Calcium,Total 9.1 mg/dL (8.5-10.1); Chloride 105 mmol/L (98-107); Creatinine, Serum 0.77 mg/dL (0.55-1.02); EST Glomerular Filtration Rate 87 mL/min (>60); Est Glom Filt Rate - Afr Amer 106 mL/min (>60); Estimated Creatinine Clearance 83.03 ml/min; Globulin 3.5 g/dL (2.2-4.2); Glucose 81 mg/dL (74-106); Lipase 15 U/L (13-75); Potassium 3.5 mmol/L (3.5-5.1); Protein, Total 7.1 g/dL (6.4-8.2); Sodium Level 138 mmol/L (136-145)
[2022-09-15 21:29] VITALS: BP 120/74; PULSE 75; RESP 16; O2SAT 99
== END 2022-09-15 22:17 | disposition home or self-care (01) ==
PROVIDERS: Nurse Practitioner; Emergency Provider Emergency Medicine; PCP Family Medicine; Visit Provider Emergency Medicine
DX: K52.9 Noninfective gastroenteritis and colitis, unspecified (principal); F17.210 Nicotine dependence, cigarettes, uncomplicated; Z79.899 Other long term (current) drug therapy
CPT/HCPCS: 80053; 81001; 81025; 83690; 85025; 96361; 96372; 96374; 99282; A4216; J2405

== ENCOUNTER 2022-10-07 20:54 | Emergency (ER) | payer MEDICAID, SELFPAY ==
[2022-10-07 20:54] VITALS: BP 153/93; PULSE 75; RESP 16; TEMP 36.9; O2SAT 99; BMI 26.8
[2022-10-07 21:38] LABS: Absolute Lymphocyte Count 1.88 X10^3/uL (0.83-4.51); Absolute Neutrophil Count 3.1 X10^3/uL (2.0-7.7); Basophil# 0.04 X10^3/uL; Basophil% 0.7 % (0-1); Eosinophil# 0.13 X10^3/uL; Eosinophils% 2.4 % (0-5); Hematocrit 38.5 % (37-47); Hemoglobin 12.3 g/dL (12.0-15.0); Lymphocyte # 1.88 X10^3/ul (0.83-4.51); Lymphocyte % 34.2 % (19-41); Mean Corp Hgb Conc 31.9 g/dL (32-36); Mean Corpuscular Hgb 29.9 pg (27.0-32.0); Mean Corpuscular Volume 93.4 fL (81-99); Mean Platelet Vol. 9.7 fl (6.2-12.0); Monocyte# 0.37 X10^3/uL; Monocyte% 6.7 % (0-10); NRBC Flagged by Analyzer 0 % (0-5); Neutrophil # 3.06 X10^3/uL (2.7-7.7); Neutrophil % 55.8 % (47-70); Platelet Count 194 K/mm3 (150-450); RBC Distribution Width CV 12.9 % (11.6-14.6); RBC Distribution Width SD 44.2 fl (35.1-43.9); Red Blood Count 4.12 M/mm3 (4.2-5.4); White Blood Count 5.5 K/mm3 (4.4-11.0)
[2022-10-07 21:54] LABS: ALB/GLOB Ratio 0.9 RATIO (0.9-2.4); AST(SGOT) 23 U/L (15-37); Alanine Aminotransfer ALT/SGPT 24 U/L (13-56); Alkaline Phosphatase 79 U/L (45-117); Anion Gap 6 (5-15); BUN 8 mg/dL (7-18); BUN/Creat Ratio 10.6 RATIO (10-20); Calcium,Total 8.1 mg/dL (8.5-10.1); Chloride 109 mmol/L (98-107); Creatinine, Serum 0.76 mg/dL (0.55-1.02); EST Glomerular Filtration Rate 89 mL/min (>60); Est Glom Filt Rate - Afr Amer 108 mL/min (>60); Estimated Creatinine Clearance 84.12 ml/min; Globulin 3.5 g/dL (2.2-4.2); Glucose 85 mg/dL (74-106); Potassium 3.5 mmol/L (3.5-5.1); Protein, Total 6.5 g/dL (6.4-8.2); Sodium Level 143 mmol/L (136-145)
[2022-10-07 22:09] LABS: Bacteria 0 SEEN /hpf (None Seen); Mucous, Urine 0 SEEN /hpf (<or=2+); Red Blood Cells-Urine 0 SEEN /hpf (0-5)
[2022-10-07 22:10] LABS: Color, Urine Yellow (Yellow); Glucose, Dipstick Normal (Normal); Ketone-Dipstick 5 mg/dl (Negative); Leukocyte Esterase-Dipstick Negative /ul (Negative); Nitrite-Dipstick Negative (Negative); Occult Blood-Urine 25 /ul (Negative); Protein-Dipstick 15 mg/dl (Negative); Specific Gravity, Urine 1.025 (1.002-1.030); Urine Bilirubin Dipstick Negative (Negative); Urine Clarity Sl. Cloudy (Clear); Urine Urobilinogen Normal (Normal)
--- NOTE | 2022-10-07 22:15 | CT_ITS ---
INDICATION: pain EXAMINATION: CT ABDOMEN AND PELVIS WITH CONTRAST - CT Abdomen And Pelvis W/ Contrast Injection TECHNIQUE: Helically acquired images were obtained of the abdomen and pelvis following IV contrast. A radiation dose optimization technique was used for this scan. IV Contrast dosage and agent: 100 cc [id number] Oral contrast: None. COMPARISON: July 19, 2022. May 13, 2022, report August 20, 2021 FINDINGS: LOWER CHEST: Lung bases are clear. No cardiomegaly or pericardial effusion. LIVER: Presumed fatty sparing near gallbladder fossa . Trace perihepatic fluid. GALLBLADDER AND BILIARY TREE: Cholecystectomy. No intra- or extrahepatic biliary ductal dilation. PANCREAS: No focal cystic or solid mass. SPLEEN: Normal size without focal cystic or solid mass. ADRENAL GLANDS: No nodules. KIDNEYS AND URETERS: Small right renal cysts. No hydronephrosis. Clear ureters. PERITONEUM: No free air. No other fluid collection. BOWEL: Significant postsurgical change involving the bowel. Rectal gas. Gas distended colon. Small bowel is relatively collapsed overall. LYMPH NODES: No enlarged mesenteric or retroperitoneal lymph nodes. VESSELS: Aorta is non-dilated. URINARY BLADDER: Unremarkable. REPRODUCTIVE ORGANS: This patient has an intrauterine device however there is a question of positioning in relationship to the endometrial cavity. ABDOMINAL WALL: No discrete abdominal or pelvic wall hernia. BONES: No lytic or blastic abnormality. CT/Abdomen/Pelvis W IV Cont ONLY IMPRESSION: Nonspecific colonic and rectal distention without definite evidence of obstruction. Similar appearance to prior study. Small nonspecific perihepatic fluid. Stable. Postsurgical change. Question IUD positioning. This is probably similar to prior exam. Myometrial placement not excluded. Electronically Signed: Jann Aden MD at 23:19 EDT ,
--- NOTE | 2022-10-07 22:17 | EDS_ITS ---
HPI HPI - GI History of Present Illness Chief Complaint: Abd Pain Informant: patient Narrative Narrative: Patient presents with abdominal pain nausea occasional vomiting and some diarrhea that might be a little worse than her baseline. 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 She had bowel ischemia. She had removal of all but about 11-1/2 inches of small bowel and half of her large bowel at the time. She has chronic diarrhea. But it is more irritating to her than normal in the last 4 days. She has also had some diffuse just abdominal aching for that time. She has had nausea and occasional vomiting. She has these episodes not uncommonly but they normally do not last this long. She has had about 3 or 4 in the last 3 months. She has not been admitted to the hospital for a long time. She also does not have anything at home for nausea and vomiting. She has no fevers or chills. She does note that she has mild dysuria during this time which is also new. Last menstrual cycle just ended about 4 days ago and was normal. Of note patient has also had cholecystectomy in the past. No chest pain or trouble breathing. PFSH PFSH Medical History Anxiety Blood clotting disorder Kidney stone Protein C deficiency Protein S deficiency Short gut syndrome Smoker Home Medications ergocalciferol (vitamin D2) 1,250 mcg (50,000 unit) capsule 50,000 unit PO MOTUWETH supplement 10/09/14 [History Last Taken 08/17/21 08:00] calcium carbonate 500 mg calcium (1,250 mg) chewable tablet (Calcium 500) 500 mg PO BID #60 tabs 08/22/21 [Rx Last Taken Unknown] enoxaparin 80 mg/0.8 mL subcutaneous syringe (Lovenox) 70 mg (0.7 mL) subcut BID blood thin #8 mL 10/31/21 [Rx Last Taken Unknown] [id number] 2.25 mg-folic acid 100 [id number] acid tablet 1 tab PO TID 10/31/21 [History Last Taken Unknown] magnesium L-lactate 84 mg tablet,extended release 252 mg PO TID SUPPLEMENT #90 tabs 03/31/22 [Rx Last Taken Unknown] potassium chloride 20 mEq tablet,extended release 20 meq PO BID #60 tabs 03/31/22 [Rx Last Taken Unknown] promethazine 25 mg tablet 25 mg PO TID PRN nausea and vomiting #20 tabs 09/15/22 [Rx Last Taken Unknown] enoxaparin 80 mg/0.8 mL subcutaneous syringe (Lovenox) 70 mg (0.7 mL) subcut BID #8 mL 10/08/22 [Rx Last Taken Unknown] ondansetron 4 mg disintegrating tablet 4 mg PO Q8H PRN PRN Nausea #10 tabs 10/08/22 [Rx Last Taken Unknown] promethazine 25 mg tablet 25 mg PO Q6H PRN PRN Nausea #10 TABLETS 10/08/22 [Rx Last Taken Unknown] Allergy/AdvReac Type Severity Reaction Status Date / Time adhesive Allergy Itching Verified 10/07/22 20:56 amoxicillin [Amoxicillin] Allergy Hives Verified 10/07/22 20:56 Penicillins Allergy Hives Verified 10/07/22 20:56 Family History Grandmother Diabetes Heart disease Mother Heart disease Grandfather Lung cancer Liver cancer Brain cancer Surgical History History of removal of ovarian cyst Hx of cholecystectomy S/P hernia repair STEPS procedure Social History Smoking Status: Current every day smoker tobacco type: cigarettes and e-cigar ettes alcohol intake: current alcohol intake frequency: holidays/special occasions only substance use type: does not use caffeine: Yes what type of physical activity do you participate in: none seatbelt use: always do you feel safe at home: Yes additional social history: - Lul Patient works with [employer] ED Loopcam A complete review of systems was performed and is negative except as documented in the history of present illness. Some specific details below. Constitutional: No recent fevers or chills. No malaise EYE: No visual complaints or pain. ENT: No difficulty swallowing. No swelling. No pain. CV: No chest pain or palpitations. Respiratory: No dyspnea. No hemoptysis. No difficulty taking breaths. GI: Please see history of present illness. : No frequency or hematuria but she has had dysuria. Musculoskeletal: No recent trauma. No pains. Skin: No rash. Nondiaphoretic. Neuro: No weakness or numbness. Endocrine: No polyuria or polydipsia. EXAM Physical Exam Narrative Exam Narrative: CONSTITUTIONAL: Patient is nontoxic in appearance. The patient looks comfortable. HEENT: No notable trauma. Mucous membranes mildly dry. No sinus tenderness. No indication of pain with swallowing. EYES: No conjunctival injection. No proptosis. CARDIOVASCULAR: Regular rate. Regular rhythm. No notable murmur. No JVD. RESPIRATORY: No respiratory distress. Breathing is unlabored. No wheezes. No rhonchi. No rales. No pain with a deep breath. GASTROINTESTINAL: Not distended. Bowel sounds are increased above normal. No notable tenderness. No guarding. No rebound. No palpable mass. No bruit. She actually looks reasonably comfortable. GENITOURINARY: No tenderness over the bladder. No CVA tenderness. MUSCULOSKELETAL: Atraumatic. No peripheral edema. No cord. No tenderness along the deep venous system. No asymmetry. NEUROLOGICAL: Patient is alert and appropriate. No focal deficit noted. SKIN: No noted rashes. No diaphoresis. PSYCHIATRIC: Patient is calm. Mood is appropriate. Const Vital Signs: 10/07/22 20:54 10/07/22 23:00 Temperature 98.4 F Temperature Source Temporal Oral Pulse Rate 75 54 L Respiratory Rate 16 16 Blood Pressure 153/93 H 143/92 H Blood Pressure Mean 113 109 Pulse Ox 99 96 Oxygen Delivery Method Room Air Room Air MDM [facility] MDM Narrative Medical decision making narrative: Patient CBC is normal. Patient's electrolytes were normal other than minimal elevation of chloride at 109. Liver function test showed no marked abnormalities. is negative. My independent interpretation of her CT with IV contrast shows some distended bowel loops. But when I looked back at her images from July of this year in April of last year this does look similar. Final reading is similar to this they also mention the possibility of migration of her IUD but this is not the source of her symptoms now. Patient is feeling better with fluids. She states the nausea is better but got not gone. I will get her some Phenergan. She does recall being on Phenergan before. I will get her home on both Phenergan and Zofran so she has options. I will also write for Lovenox because she is evidently about out. Lab Data Attestation: I reviewed the patient's lab results. Labs: Laboratory Results - last 24 hr 10/07/22 10/07/22 10/07/22 21:30 21:30 22:05 WBC 5.5 RBC 4.12 L Hgb 12.3 Hct 38.5 MCV 93.4 MCH 29.9 MCHC 31.9 L RDW Std Deviation 44.2 H RDW Coeff of Jim 12.9 Plt Count 194 MPV 9.7 Immature Gran % (Auto) 0.200 Neut % (Auto) 55.8 Lymph % (Auto) 34.2 [place] % (Auto) 6.7 Eos % (Auto) 2.4 Baso % (Auto) 0.7 Absolute Neuts (auto) 3.1 Absolute Lymphs (auto) 1.88 Nucleated RBC % 0 Sodium 143 Potassium 3.5 Chloride 109 H Carbon Dioxide 28.0 Anion Gap 6 BUN 8 Creatinine 0.76 Estim Creat Clear Calc 84.12 Est GFR (MDRD) Af Amer 108 Est GFR (MDRD) Non-Af 89 BUN/Creatinine Ratio 10.6 Glucose 85 Lactic Acid Calcium 8.1 L Total Bilirubin 0.30 AST 23 ALT 24 Alkaline Phosphatase 79 Total Protein 6.5 Albumin 3.0 L Globulin 3.5 Albumin/Globulin Ratio 0.9 Serum , Qual NEGATIVE Urine Color Urine Clarity Urine pH Ur Specific [place] Urine Protein Urine Glucose (UA) Urine Ketones Urine Occult Blood Urine Nitrite Urine Bilirubin Urine Urobilinogen Ur Leukocyte Esterase Urine RBC Urine WBC Ur Squamous Epith Cells Urine Bacteria Urine Mucus 10/07/22 10/07/22 22:05 22:30 WBC RBC Hgb Hct MCV MCH MCHC RDW Std Deviation RDW Coeff of Jim Plt Count MPV Immature Gran % (Auto) Neut % (Auto) Lymph % (Auto) [place] % (Auto) Eos % (Auto) Baso % (Auto) Absolute Neuts (auto) Absolute Lymphs (auto) Nucleated RBC % Sodium Potassium Chloride Carbon Dioxide Anion Gap BUN Creatinine Estim Creat Clear Calc Est GFR (MDRD) Af Amer Est GFR (MDRD) Non-Af BUN/Creatinine Ratio Glucose Lactic Acid 1.1 Calcium Total Bilirubin AST ALT Alkaline Phosphatase Total Protein Albumin Globulin Albumin/Globulin Ratio Serum , Qual Urine Color Yellow Urine Clarity Sl. Cloudy Urine pH 5.0 Ur Specific [place] 1.025 Urine Protein 15 H Urine Glucose (UA) Normal Urine Ketones 5 H Urine Occult Blood 25 H Urine Nitrite Negative Urine Bilirubin Negative Urine Urobilinogen Normal Ur Leukocyte Esterase Negative Urine RBC 0 SEEN Urine WBC 0-5 SEEN Ur Squamous Epith Cells 0-5 SEEN Urine Bacteria 0 SEEN Urine Mucus 0 SEEN Radiography Diagnostic Testing: Clinical Impression(s) from Imaging Studies Abdomen/Pelvis CT 10/07/22 22:15 IMPRESSION: Nonspecific colonic and rectal distention without definite evidence of obstruction. Similar appearance to prior study. Small nonspecific perihepatic fluid. Stable. Postsurgical change. Question IUD positioning. This is probably similar to prior exam. Myometrial placement not excluded. Electronically Signed: Jann Aden MD at 23:19 EDT , Discharge Plan Triage Chief Complaint: Abd Pain ED Provider: [facility] Pennington Dx/Rx/DC Orders Clinical Impression: Nausea vomiting and diarrhea, Short gut syndrome, Abdominal pain Instructions: ED Abdominal Pain Unkn Cause Fem Prescriptions: New enoxaparin [Lovenox] 80 mg/0.8 mL syringe 70 mg subcut BID Qty: 8 2RF promethazine [promethazine] 25 mg tablet 25 mg PO Q6H PRN PRN (Reason: Nausea) Qty: 10 0RF ondansetron [ondansetron] 4 mg tablet,disintegrating 4 mg PO Q8H PRN PRN (Reason: Nausea) Qty: 10 0RF No Action ergocalciferol (vitamin D2) 50,000 UNIT capsule 50,000 unit PO [facility] calcium carbonate [Calcium 500] 500 mg calcium (1,250 mg) tablet,chewable 500 mg PO BID Qty: 60 0RF [id number] 2.25 mg iron- 100 mcg Tablet 1 tab PO TID enoxaparin [Lovenox] 80 mg/0.8 mL Syringe 70 mg SUBCUT BID Qty: 8 0RF magnesium L-lactate 84 mg tablet extended release 252 mg PO TID Qty: 90 0RF potassium chloride 20 mEq tablet extended release 20 meq PO BID Qty: 60 0RF promethazine 25 mg tablet 25 mg PO TID PRN (Reason: nausea and vomiting) Qty: 20 0RF Primary Care Provider: José Luis Motley Referrals: José Luis Motley MD [Primary Care Provider] - 1-2 Days if not improving Disposition Disposition: Home, Self Care
[2022-10-07 22:28] LABS: Squamous Epithelial Cells - UA 0-5 SEEN /hpf (5-10); White Blood Cells 0-5 SEEN /hpf (0-5)
[2022-10-07 22:33] LABS: Internal QC Validated? YES +Cl - CLEAR BKGD; Pregnancy, Serum, hCG Quali. NEGATIVE Negative
[2022-10-07] MEDS: Ondansetron 4 MG/2 ML Vial IV (22:37)
[2022-10-07] MEDS: 0.9% Normal Saline 1,000 ML 1000 ML IV (22:37)
[2022-10-07] MEDS: Morphine 4 MG/ML Syringe IV (22:37)
[2022-10-07 23:00] VITALS: BP 143/92; PULSE 54; RESP 16; O2SAT 96
[2022-10-07 23:05] LABS: Lactic Acid 1.1 mmol/L (0.4-1.9)
[2022-10-08 00:11] VITALS: BP 136/86; PULSE 59; RESP 16; O2SAT 98
== END 2022-10-08 00:17 | disposition home or self-care (01) ==
PROVIDERS: Emergency Provider Emergency Medicine; PCP Family Medicine; Visit Provider Emergency Medicine
DX: R10.9 Unspecified abdominal pain (principal); F17.210 Nicotine dependence, cigarettes, uncomplicated; K91.2 Postsurgical malabsorption, not elsewhere classified; R11.2 Nausea with vomiting, unspecified; R19.7 Diarrhea, unspecified; Z90.49 Acquired absence of other specified parts of digestive tract; F17.290 Nicotine dependence, other tobacco product, uncomplicated
CPT/HCPCS: 74177; 80053; 81001; 83605; 84703; 85025; 96361; 96372; 96374; 96375; 99284; Q9967; A4216; J2405

== ENCOUNTER → 2022-11-27 | Outpatient (CLI) | payer SELFPAY ==
[2022-11-30 05:07] LABS: Chlamydia By Nucleic Acid AMP Negative (Negative); Gonococcus By Nucleic Acid AMP Negative (Negative)
== END | disposition home or self-care (01) ==
LOC: US 16:00
PROVIDERS: Advanced Practice Midwife; PCP Family Medicine; Referring Provider Nurse Practitioner Women's Health; Visit Provider Nurse Practitioner Women's Health
DX: Z11.3 Encounter for screening for infections with a predominantly sexual mode of transmission (principal)
CPT/HCPCS: 87070; 87077; 87205; 87491; 87591

== ENCOUNTER 2022-12-30 09:01 | Emergency (ER) | payer SELFPAY ==
[2022-12-30 09:02] VITALS: BP 125/90; PULSE 76; RESP 12; TEMP 36.1; O2SAT 100; BMI 27.1
--- NOTE | 2022-12-30 09:18 | ED.RN ---
Hx short gut syndrome. States constipatted for 3 days. Body aches started at same time. Feeling fatiqued and not well. Urine collected and sent to lab
--- NOTE | 2022-12-30 09:25 | EDS_ITS ---
HPI HPI - GI History of Present Illness Chief Complaint: Abd Pain Informant: patient Abdominal Pain/Flank Pain Onset: Days (3) Context: Gradual Onset Timing: Continuous Quality: Aching Location: - (Right mid abdomen) Current Severity: Mild Maximum Severity: Mild Worsened by: Food Relieved by: Nothing Nausea/Vomiting/Emesis GI Symptom: Positive for Nausea; Negative for Vomiting Diarrhea/Melena/Hematochezia GI Symptom: Positive for Diarrhea (Chronic, less than usual); Negative for Melena or Hematochezia Associated Symptoms Associated Symptoms: Negative for Dysuria, Frequency, Hematuria or Urgency Narrative Narrative: Patient with a history of short gut syndrome due to blood clots causing ischemic bowel and multiple segments of small bowel resection has chronic diarrhea as a result of this, she usually goes 6-8 times daily, she states in the last several days she has felt poorly, she has had some mild right-sided abdominal pain, food seems to make it worse so she has been eating less and she has been having only about 4 loose stringy bowel movements per day no blood, and states she is concerned that things are not moving through correctly. Some nausea on occasion no vomiting. Has a history of low potassium and magnesium due to her short gut syndrome and would like those checked, she denies any urinary issues, coughing, known sick contacts, or travel out of the area. Presenting during a recent mild uptick in [facility] as well in the community. PFSH PFSH Medical History Anxiety Blood clotting disorder Kidney stone Protein C deficiency Protein S deficiency Short gut syndrome Smoker Home Medications ergocalciferol (vitamin D2) 1,250 mcg (50,000 unit) capsule 50,000 unit PO MOTUWETH supplement 10/09/14 [History Last Taken 08/17/21 08:00] calcium carbonate 500 mg calcium (1,250 mg) chewable tablet (Calcium 500) 500 mg PO BID #60 tabs 08/22/21 [Rx Last Taken Unknown] enoxaparin 80 mg/0.8 mL subcutaneous syringe (Lovenox) 70 mg (0.7 mL) subcut BID blood thin #8 mL 10/31/21 [Rx Last Taken Unknown] bdwrhvhb-qzu-[id number] 2.25 mg-folic acid 100 [id number] acid tablet 1 tab PO TID 10/31/21 [History Last Taken Unknown] magnesium L-lactate 84 mg tablet,extended release 252 mg (3 x 84 mg) PO TID SUPPLEMENT #90 tabs 03/31/22 [Rx Last Taken Unknown] potassium chloride 20 mEq tablet,extended release 20 meq PO BID #60 tabs 03/31/22 [Rx Last Taken Unknown] enoxaparin 80 mg/0.8 mL subcutaneous syringe (Lovenox) 70 mg (0.7 mL) subcut BID #8 mL 10/08/22 [Rx Last Taken Unknown] metronidazole 500 mg tablet 500 mg PO BID #14 tabs 11/28/22 [Rx Last Taken Unknown] Allergy/AdvReac Type Severity Reaction Status Date / Time adhesive Allergy Itching Verified 12/30/22 09:02 amoxicillin [Amoxicillin] Allergy Hives Verified 12/30/22 09:02 Penicillins Allergy Hives Verified 12/30/22 09:02 Family History Grandmother Diabetes Heart disease Mother Heart disease Grandfather Lung cancer Liver cancer Brain cancer Surgical History History of removal of ovarian cyst Hx of cholecystectomy S/P hernia repair STEPS procedure Social History Smoking Status: Current every day smoker tobacco type: cigarettes and e-cigar ettes alcohol intake: current alcohol intake frequency: holidays/special occasions only substance use type: does not use caffeine: Yes what type of physical activity do you participate in: none seatbelt use: always do you feel safe at home: Yes additional social history: - Lul Patient works with [employer] ED Constitutional Constitutional ED: Reports anorexia, body ache(s) and malaise; Denies chills or fever(s) Eyes Eyes: Denies change in vision or diplopia ENT ENT ED: Denies rhinorrhea or sore throat Cardiovascular Cardiovascular: Denies chest pain or palpitations Respiratory/Chest Respiratory/Chest: Denies cough or dyspnea Gastrointestinal Gastrointestinal: Reports abdominal pain, diarrhea and nausea; Denies melena or vomiting Genitourinary Genitourinary ED: Denies dysuria or hematuria Musculoskeletal Musculoskeletal: Denies back pain or neck pain Integumentary Denies abscess or rash Neurologic Neurologic: Denies headache(s), paresthesias or weakness Psychiatric Psychiatric: Denies anxiety or suicidal thoughts EXAM Physical Exam Const Vital Signs: 12/30/22 09:02 12/30/22 09:08 Temperature 96.9 F L Temperature Source Temporal Pulse Rate 76 Respiratory Rate 12 Respiratory Effort Normal Respiratory Pattern Normal Blood Pressure 125/90 H Blood Pressure Mean 101 Pulse Ox 100 Oxygen Delivery Method Room Air Positive well nourished and well developed General Appearance ED: well developed and NAD HEENT Reports moist mucous membranes normocephalic and atraumatic Eyes PERRL and EOMs intact bilaterally Neck full ROM and supple Resp normal respiratory effort and clear to auscultation bilaterally Cardio regular rate, regular rhythm and no murmurs GI non-tender and non-distended Auscultation: normoactive bowel sounds Palpation: soft Back/Spine no CVA tenderness General Back: other FROM Extremity normal to inspection General Extremety ED: Negative for edema, pulses abnormal or tenderness General Extremity: Negative for edema or pulses abnormal Neuro oriented x3, CN's II-XII intact bilaterally and no sensory deficits noted Sensorium / Orientation: awake and alert Motor Exam: strength 5/5 throughout Psych mental status grossly normal and thought process normal Skin no rashes or lesions noted and no wounds MDM MDM MDM Narrative Medical decision making narrative: Labs were obtained in addition to a COVID test while treating her empirically with IV fluids, Zofran, and dicyclomine. Abdomen very benign, does not have symptoms of a bowel obstruction and I do not think she needs advanced emergent imaging of her abdomen at this time. With the above medications, her symptoms are better. Her COVID is negative, labs remarkable for mild hypokalemia and hypomagnesemia. Both will be replaced IV and then she will be discharged home to follow-up as an outpatient she is comfortable with that plan. Lab Data Attestation: I reviewed the patient's lab results. Labs: Laboratory Results - last 24 hr 12/30/22 09:30 WBC 5.0 RBC 4.26 Hgb 12.7 Hct 40.0 MCV 93.9 MCH 29.8 MCHC 31.8 L RDW Std Deviation 46.6 H RDW Coeff of Jim 13.5 Plt Count 173 MPV 10.1 Immature Gran % (Auto) 0.200 Neut % (Auto) 64.2 Lymph % (Auto) 26.8 [place] % (Auto) 6.4 Eos % (Auto) 1.8 Baso % (Auto) 0.6 Absolute Neuts (auto) 3.2 Absolute Lymphs (auto) 1.34 Nucleated RBC % 0 Sodium 142 Potassium 3.2 L Chloride 106 Carbon Dioxide 29.0 Anion Gap 7 BUN 9 Creatinine 0.72 Estim Creat Clear Calc 88.79 Est GFR (MDRD) Af Amer 114 Est GFR (MDRD) Non-Af 94 BUN/Creatinine Ratio 12.5 Glucose 94 Calcium 8.6 Magnesium 1.2 L Discharge Plan Triage Chief Complaint: Abd Pain Other Complaint: General Illness Complaint ED Provider: Guanako Richardson Dx/Rx/DC Orders Clinical Impression: Short gut syndrome, Hypokalemia, Hypomagnesemia Instructions: Hypomagnesemia Dc, ED Hypokalemia Prescriptions: No Action ergocalciferol (vitamin D2) 50,000 UNIT capsule 50,000 unit PO MOTUWETH calcium carbonate [Calcium 500] 500 mg calcium (1,250 mg) tablet,chewable 500 mg PO BID Qty: 60 0RF [id number] 2.25 mg iron- 100 mcg Tablet 1 tab PO TID enoxaparin [Lovenox] 80 mg/0.8 mL Syringe 70 mg SUBCUT BID Qty: 8 0RF magnesium L-lactate 84 mg tablet extended release 252 mg PO TID Qty: 90 0RF potassium chloride 20 mEq tablet extended release 20 meq PO BID Qty: 60 0RF enoxaparin [Lovenox] 80 mg/0.8 mL syringe 70 mg subcut BID Qty: 8 2RF metronidazole 500 mg tablet 500 mg PO BID Qty: 14 0RF Primary Care Provider: José Luis Motley Referrals: José Luis Motley MD [Primary Care Provider] - (this week) Disposition Disposition: Home, Self Care
[2022-12-30] MEDS: 0.9% Normal Saline 1,000 ML 999 ML IV (09:33)
[2022-12-30] MEDS: Dicyclomine 10 MG Capsule 20 MG PO (09:34)
[2022-12-30] MEDS: Ondansetron 4 MG/2 ML Vial IV (09:34)
[2022-12-30 09:40] LABS: Absolute Lymphocyte Count 1.34 X10^3/uL (0.83-4.51); Absolute Neutrophil Count 3.2 X10^3/uL (2.0-7.7); Basophil# 0.03 X10^3/uL; Basophil% 0.6 % (0-1); Eosinophil# 0.09 X10^3/uL; Eosinophils% 1.8 % (0-5); Hemoglobin 12.7 g/dL (12.0-15.0); Lymphocyte # 1.34 X10^3/ul (0.83-4.51); Lymphocyte % 26.8 % (19-41); Mean Corp Hgb Conc 31.8 g/dL (32-36); Mean Corpuscular Hgb 29.8 pg (27.0-32.0); Mean Corpuscular Volume 93.9 fL (81-99); Mean Platelet Vol. 10.1 fl (6.2-12.0); Monocyte# 0.32 X10^3/uL; Monocyte% 6.4 % (0-10); NRBC Flagged by Analyzer 0 % (0-5); Neutrophil # 3.21 X10^3/uL (2.7-7.7); Neutrophil % 64.2 % (47-70); Platelet Count 173 K/mm3 (150-450); RBC Distribution Width CV 13.5 % (11.6-14.6); RBC Distribution Width SD 46.6 fl (35.1-43.9); Red Blood Count 4.26 M/mm3 (4.2-5.4)
[2022-12-30 09:55] LABS: Anion Gap 7 (5-15); BUN 9 mg/dL (7-18); BUN/Creat Ratio 12.5 RATIO (10-20); Calcium,Total 8.6 mg/dL (8.5-10.1); Chloride 106 mmol/L (98-107); Creatinine, Serum 0.72 mg/dL (0.55-1.02); EST Glomerular Filtration Rate 94 mL/min (>60); Est Glom Filt Rate - Afr Amer 114 mL/min (>60); Estimated Creatinine Clearance 88.79 ml/min; Glucose 94 mg/dL (74-106); Magnesium 1.2 mg/dL (1.6-2.6); Potassium 3.2 mmol/L (3.5-5.1); Sodium Level 142 mmol/L (136-145)
[2022-12-30 10:50] VITALS: BP 119/86; PULSE 53; RESP 16; O2SAT 98
[2022-12-30] MEDS: Potassium Chloride 10mEq/100mL 10 MEQ/100 ML IV.SOLN. 100 MEQ IV BOLUS (12:36)
== END 2022-12-30 13:48 | disposition home or self-care (01) ==
PROVIDERS: Emergency Provider Emergency Medicine; PCP Family Medicine; Visit Provider Emergency Medicine
DX: K91.2 Postsurgical malabsorption, not elsewhere classified (principal); E87.6 Hypokalemia; E83.42 Hypomagnesemia; F17.210 Nicotine dependence, cigarettes, uncomplicated; Z86.16 Personal history of COVID-19
CPT/HCPCS: 80048; 83735; 85025; 87811; 96365; 96366; 96367; 96375; 99284; J7030; A4216; J2405

== ENCOUNTER 2023-03-03 18:52 | Emergency (ER) | payer MEDICAID, SELFPAY ==
[2023-03-03 18:54] VITALS: BP 108/82; PULSE 67; RESP 18; TEMP 36.6; O2SAT 98; BMI 25.9
[2023-03-03] MEDS: Ketorolac 15 MG/ML Vial IV (19:26)
[2023-03-03] MEDS: 0.9% Normal Saline (1000mL) 1,000 ML 1000 ML IV (19:26)
[2023-03-03] MEDS: Ondansetron 4 MG/2 ML Vial IV (19:27)
--- NOTE | 2023-03-03 19:35 | EDS_ITS ---
HPI <CARMEN Purcell - Last Filed: 03/03/23 21:08> HPI - GI History of Present Illness Chief Complaint: Abd Pain Narrative Narrative: Patient presenting today due to generalized abdominal pain, nausea, and constipation that she has had for the past 2 days. 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 She reports a history of bowel obstruction. She reports that she is passing gas and did have a bowel movement this morning that was much harder and painful to pass than her usual soft bowel movements. She denies any blood in her stool. She reports some left sided kidney pain, dysuria, and increased urinary frequency. She denies any fevers, chills, and vomiting. She has had a cholecystectomy as well. [facility] <CARMEN Purcell - Last Filed: 03/03/23 21:08> [facility] Medical History Anxiety Blood clotting disorder Kidney stone Protein C deficiency Protein S deficiency Short gut syndrome Smoker Home Medications ergocalciferol (vitamin D2) 1,250 mcg (50,000 unit) capsule 50,000 unit PO MOTUWETH supplement 10/09/14 [History Last Taken 08/17/21 08:00] calcium carbonate 500 mg calcium (1,250 mg) chewable tablet (Calcium 500) 500 mg PO BID #60 tabs 08/22/21 [Rx Last Taken Unknown] enoxaparin 80 mg/0.8 mL subcutaneous syringe (Lovenox) 70 mg (0.7 mL) subcut BID blood thin #8 mL 10/31/21 [Rx Last Taken Unknown] jgymcsbn-lnn-dorj 2.25 mg-folic acid 100 [id number] acid tablet 1 tab PO TID 10/31/21 [History Last Taken Unknown] magnesium L-lactate 84 mg tablet,extended release 252 mg (3 x 84 mg) PO TID SUPPLEMENT #90 tabs 03/31/22 [Rx Last Taken Unknown] potassium chloride 20 mEq tablet,extended release 20 meq PO BID #60 tabs 03/31/22 [Rx Last Taken Unknown] enoxaparin 80 mg/0.8 mL subcutaneous syringe (Lovenox) 70 mg (0.7 mL) subcut BID #8 mL 10/08/22 [Rx Last Taken Unknown] metronidazole 500 mg tablet 500 mg PO BID #14 tabs 11/28/22 [Rx Last Taken Unknown] cephalexin 500 mg capsule 500 mg PO Q12 #14 CAPSULES 03/03/23 [Rx Last Taken Unknown] fluconazole 150 mg tablet 150 mg PO DAILY 1 dose #2 tabs 03/03/23 [Rx Last Taken Unknown] Allergy/AdvReac Type Severity Reaction Status Date / Time adhesive Allergy Itching Verified 03/03/23 18:54 amoxicillin [Amoxicillin] Allergy Hives Verified 03/03/23 18:54 Penicillins Allergy Hives Verified 03/03/23 18:54 Family History Grandmother Diabetes Heart disease Mother Heart disease Grandfather Lung cancer Liver cancer Brain cancer Surgical History History of removal of ovarian cyst Hx of cholecystectomy S/P hernia repair STEPS procedure Social History Smoking Status: Current every day smoker tobacco type: cigarettes and e- cigarettes alcohol intake: current alcohol intake frequency: holidays/special occasions only substance use type: does not use caffeine: Yes what type of physical activity do you participate in: none seatbelt use: always do you feel safe at home: Yes additional social history: - Lul Patient works with [employer] <CARMEN Purcell - Last Filed: 03/03/23 21:08> ROS ED Constitutional Constitutional ED: Denies chills or fever(s) Cardiovascular Cardiovascular: Denies chest pain Respiratory/Chest Respiratory/Chest: Denies cough or dyspnea Gastrointestinal Gastrointestinal: Reports abdominal pain, constipation and nausea; Denies diarrhea, melena or vomiting Genitourinary Genitourinary ED: Reports dysuria and urinary urgency; Denies hematuria Musculoskeletal Musculoskeletal: Reports back pain; Denies arthralgias or myalgias Integumentary Denies rash Neurologic Neurologic: Denies weakness EXAM <CARMEN Purcell - Last Filed: 03/03/23 21:08> Physical Exam Const Vital Signs: 03/03/23 18:54 Temperature 97.9 F Temperature Source Temporal Pulse Rate 67 Respiratory Rate 18 Blood Pressure 108/82 H Blood Pressure Mean 90 Pulse Ox 98 Oxygen Delivery Method Room Air Positive well nourished, well developed and no apparent distress General Appearance ED: well developed HEENT Reports normocephalic and head/scalp atraumatic Mouth ED: Yes moist mucous membranes normal Eyes PERRL and EOMs intact bilaterally Neck full ROM and supple Chest Wall inspection of chest normal Resp normal respiratory effort and clear to auscultation bilaterally Cardio regular rate and regular rhythm GI soft to palpation, non-distended and no masses GI Narrative: Pain to palpation to the periumbilical area and left lower quadrant without any rigidity, guarding, or peritoneal signs Back/Spine normal ROM and normal to inspection Extremity normal to inspection and full ROM Neuro oriented x3, CN's II-XII intact bilaterally, moves all extremities, no focal motor deficits and no sensory deficits noted Sensorium / Orientation: awake and alert Psych mental status grossly normal and thought process normal Skin no rashes or lesions noted and no wounds <Dr. Toby Francis DO - Last Filed: 03/03/23 22:02> Physical Exam Const Vital Signs: 03/03/23 18:54 Temperature 97.9 F Temperature Source Temporal Pulse Rate 67 Respiratory Rate 18 Blood Pressure 108/82 H Blood Pressure Mean 90 Pulse Ox 98 Oxygen Delivery Method Room Air [facility] <CARMEN Purcell - Last Filed: 03/03/23 21:08> [facility] Narrative Medical decision making narrative: Patient presenting today due to generalized abdominal pain, nausea, and constipation. She has a significant abdominal history due to short gut syndrome and has had bowel obstructions in the past. She reports that her symptoms do feel similar to her previous bowel obstruction. She is passing a large amount of gas and did have a bowel movement this morning, but she normally has diarrhea throughout the day and has not had that. She is well-appearing and in no acute distress. Labs to be obtained to rule out leukocytosis, anemia, electrolyte abnormality, WAGNER, and UTI. X-ray of the abdomen obtained and is concerning for bowel obstruction, CT of the abdomen and pelvis obtained to rule this out. CT does show significant fecal retention, on reexamination she is currently having a bowel movement, depending on the size of the bowel movement patient may need an enema. UA is contaminated but does have positive nitrates and she does have urinary symptoms, she will be treated with keflex and a urine culture will be obtained. Patient reports having a very large bowel movement and passing a lot of gas, she reports that her abdominal symptoms have improved. At this point, I feel the patient is safe to be discharged home with outpatient follow-up. She is comfortable with plan. Lab Data Attestation: I reviewed the patient's lab results. Labs: Laboratory Results - last 24 hr 03/03/23 03/03/23 19:28 19:35 WBC 5.5 RBC 3.82 L Hgb 11.8 L Hct 36.6 L MCV 95.8 MCH 30.9 MCHC 32.2 RDW Std Deviation 46.3 H RDW Coeff of Jim 13.2 Plt Count 183 MPV 10.3 Immature Gran % (Auto) 0.200 Neut % (Auto) 58.8 Lymph % (Auto) 31.7 Sierra % (Auto) 6.2 Eos % (Auto) 2.4 Baso % (Auto) 0.7 Absolute Neuts (auto) 3.2 Absolute Lymphs (auto) 1.74 Nucleated RBC % 0 Sodium 144 Potassium 3.2 L Chloride 110 H Carbon Dioxide 27.0 Anion Gap 7 BUN 11 Creatinine 0.74 Estim Creat Clear Calc 86.39 Est GFR (MDRD) Af Amer 110 Est GFR (MDRD) Non-Af 91 BUN/Creatinine Ratio 14.8 Glucose 101 Calcium 8.3 L Total Bilirubin 0.50 AST 23 ALT 30 Alkaline Phosphatase 65 Total Protein 6.2 L Albumin 3.1 L Globulin 3.1 Albumin/Globulin Ratio 1.0 Lipase 18 Urine Color Yellow Urine Clarity Cloudy Urine pH 5.0 Ur Specific [place] 1.025 Urine Protein 30 H Urine Glucose (UA) Normal Urine Ketones 5 H Urine Occult Blood 150 H Urine Nitrite Positive H Urine Bilirubin 1 H Urine Urobilinogen Normal Ur Leukocyte Esterase 25 H Urine RBC 10-25 SEEN Urine WBC 0-5 SEEN Ur Squamous Epith Cells 5-10 SEEN Uric Acid Crystals 1+ Amorphous Sediment 1+ URATE Urine Bacteria 3+ Urine Mucus 0 SEEN Radiography Diagnostic Testing: Clinical Impression(s) from Imaging Studies Abdomen X-Ray 03/03/23 19:40 IMPRESSION: Diffuse colonic distention with air-fluid level raising the concern of ileus, enteritis/colitis or malabsorption. Clinical correlation recommended. Electronically Signed: Bev Thompson MD at 19:56 EDT , Abdomen/Pelvis CT 03/03/23 19:45 IMPRESSION: Diffuse colonic dilatation extending into the sigmoid and rectal region compatible with diffuse ileus or alternatively syndrome. Superimposed enteritis not excluded. No distinct focal stricture or zone of transition seen. Unremarkable abdominal viscera. Electronically Signed: Bev Thompson MD at 21:20 EDT , <Dr. Toby Francis, DO - Last Filed: 03/03/23 22:02> [facility] Lab Data Labs: Laboratory Results - last 24 hr 03/03/23 03/03/23 19:28 19:35 WBC 5.5 RBC 3.82 L Hgb 11.8 L Hct 36.6 L MCV 95.8 MCH 30.9 MCHC 32.2 RDW Std Deviation 46.3 H RDW Coeff of Jim 13.2 Plt Count 183 MPV 10.3 Immature Gran % (Auto) 0.200 Neut % (Auto) 58.8 Lymph % (Auto) 31.7 Sierra % (Auto) 6.2 Eos % (Auto) 2.4 Baso % (Auto) 0.7 Absolute Neuts (auto) 3.2 Absolute Lymphs (auto) 1.74 Nucleated RBC % 0 Sodium 144 Potassium 3.2 L Chloride 110 H Carbon Dioxide 27.0 Anion Gap 7 BUN 11 Creatinine 0.74 Estim Creat Clear Calc 86.39 Est GFR (MDRD) Af Amer 110 Est GFR (MDRD) Non-Af 91 BUN/Creatinine Ratio 14.8 Glucose 101 Calcium 8.3 L Total Bilirubin 0.50 AST 23 ALT 30 Alkaline Phosphatase 65 Total Protein 6.2 L Albumin 3.1 L Globulin 3.1 Albumin/Globulin Ratio 1.0 Lipase 18 Urine Color Yellow Urine Clarity Cloudy Urine pH 5.0 Ur Specific [place] 1.025 Urine Protein 30 H Urine Glucose (UA) Normal Urine Ketones 5 H Urine Occult Blood 150 H Urine Nitrite Positive H Urine Bilirubin 1 H Urine Urobilinogen Normal Ur Leukocyte Esterase 25 H Urine RBC 10-25 SEEN Urine WBC 0-5 SEEN Ur Squamous Epith Cells 5-10 SEEN Uric Acid Crystals 1+ Amorphous Sediment 1+ URATE Urine Bacteria 3+ Urine Mucus 0 SEEN Radiography Diagnostic Testing: Clinical Impression(s) from Imaging Studies Abdomen X-Ray 03/03/23 19:40 IMPRESSION: Diffuse colonic distention with air-fluid level raising the concern of ileus, enteritis/colitis or malabsorption. Clinical correlation recommended. Electronically Signed: Bev Thompson MD at 19:56 EDT , Abdomen/Pelvis CT 03/03/23 19:45 IMPRESSION: Diffuse colonic dilatation extending into the sigmoid and rectal region compatible with diffuse ileus or alternatively syndrome. Superimposed enteritis not excluded. No distinct focal stricture or zone of transition seen. Unremarkable abdominal viscera. Electronically Signed: Bev Thompson MD at 21:20 EDT , Treatment and Re-Evaluation Comments:: I have personally performed a face to face assessment of the patient and have reviewed the ZACHARY Note. I performed a substantive portion of the visit including all aspects of the following. My hendrickson findings include: History is abdominal discomfort early distention nausea. 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 History of bowel obstructions. Exam is mild tympany in the upper abdomen. Normal bowel sounds. Medical Decison Making plain films showed air-fluid levels of the large bowel. CT was obtained which demonstrates a large amount of stool in the rectum and sigmoid colon. Patient had a large bowel movement here and is feeling sign ificantly better. I do not think the patient needs a enema as she is passing stool on her own and feels better. She states her doctors have advised her not to take anything like laxatives. There is questionable UTI with positive nitrates 0-5 white cells and 3+ bacteria. Placed her on Keflex and she has requested some Diflucan. Culture will be sent. Discharge Plan Triage Chief Complaint: Abd Pain ED Midlevel Provider: Viola Carrasco ED Provider: Toyb Francis Dx/Rx/DC Orders Clinical Impression: UTI (urinary tract infection), Abdominal pain, Constipation, Short gut syndrome Instructions: ED Constipation (Adult), ED Cystitis Female Adult Prescriptions: New cephalexin 500 mg capsule 500 mg PO Q12 Qty: 14 0RF fluconazole 150 mg tablet 150 mg PO DAILY Qty: 2 0RF Rx Instructions: Repeat in 3 days if needed No Action ergocalciferol (vitamin D2) 50,000 UNIT capsule 50,000 unit PO MOTUWETH calcium carbonate [Calcium 500] 500 mg calcium (1,250 mg) tablet,chewable 500 mg PO BID Qty: 60 0RF [id number]-AA 2.25 mg iron- 100 mcg Tablet 1 tab PO TID enoxaparin [Lovenox] 80 mg/0.8 mL Syringe 70 mg SUBCUT BID Qty: 8 0RF magnesium L-lactate 84 mg tablet extended release 252 mg PO TID Qty: 90 0RF potassium chloride 20 mEq tablet extended release 20 meq PO BID Qty: 60 0RF enoxaparin [Lovenox] 80 mg/0.8 mL syringe 70 mg subcut BID Qty: 8 2RF metronidazole 500 mg tablet 500 mg PO BID Qty: 14 0RF Primary Care Provider: José Luis Motley Referrals: José Luis Motley MD [Primary Care Provider] - 3-5 Days Activity Restrictions/Additional Instructions: Please follow-up with your PCP return for any worsening of your symptoms. Disposition Disposition: Home, Self Care
[2023-03-03 19:38] LABS: Mucous, Urine 0 SEEN /hpf (<or=2+)
[2023-03-03 19:40] LABS: Color, Urine Yellow (Yellow); Glucose, Dipstick Normal (Normal); Ketone-Dipstick 5 mg/dl (Negative); Leukocyte Esterase-Dipstick 25 /ul (Negative); Nitrite-Dipstick Positive (Negative); Occult Blood-Urine 150 /ul (Negative); Protein-Dipstick 30 mg/dl (Negative); Specific Gravity, Urine 1.025 (1.002-1.030); Urine Clarity Cloudy (Clear); Urine Urobilinogen Normal (Normal)
--- NOTE | 2023-03-03 19:40 | RAD_ITS ---
STUDY: X-RAY - ABDOMEN/PELVIS REASON FOR EXAM: Female, 42 years old. constipation TECHNIQUE: AP supine and upright views of the abdomen and pelvis. COMPARISON: 05/19/2021. FINDINGS: Normal visualized lung bases. Diffuse distention of the colon with air-fluid level seen. The small bowel is unremarkable. There is no demonstrated free abdominal air. The visualized liver, spleen and kidneys are grossly normal in size and morphology. Normal soft tissue structures. Normal visualized osseous structures. RAD/Abd Decub and/or Erect(Portabl IMPRESSION: Diffuse colonic distention with air-fluid level raising the concern of ileus, enteritis/colitis or malabsorption. Clinical correlation recommended. Electronically Signed: Bev Thompson MD at 19:56 EDT ,
[2023-03-03 19:43] LABS: Urine Bilirubin Dipstick 1 mg/dL (Negative)
--- NOTE | 2023-03-03 19:45 | CT_ITS ---
STUDY: CT ABDOMEN AND PELVIS WITH CONTRAST REASON FOR EXAM: Female, 42 years old. concerns bowel obstruction RADIATION DOSAGE (If Supplied By Facility): CTDIvol = ( 16.26 ) mGy, DLP = ( 639.74 ) mGycm TECHNIQUE: Transaxial images were obtained from the dome of the diaphragm to the symphysis pubis without oral contrast. IV 100mL Isovue-370 was administered. Sagittal and coronal images were reconstructed. Individualized dose optimization techniques were used for this CT. COMPARISON: 10/07/2022. FINDINGS: The visualized lung bases are unremarkable. The visualized portions of the heart are within normal limits. Normal liver. There are surgical clips in the gallbladder fossa consistent with a prior cholecystectomy. Normal spleen. Normal pancreas. Normal bilateral adrenal glands. Small low-attenuation structures within the right kidney too small to characterize measuring 4.8 mm and compatible with benign process such as cyst. Otherwise normal right kidney. Normal left kidney. Normal visualized stomach. There are loops of small bowel more so on the right side with thickening of the wall concerning for enteritis. There are multiple surgical clips along the bowel on the right side of the abdomen, correlation with history recommended. Severe diffuse dilatation of the colon reaching a maximum diameter of 2 10 cm, progressed in the interval. There is fluid within the colon. The appendix is visualized and appears normal. There is diffuse atherosclerotic calcification of the abdominal aorta, without a demonstrated aneurysm. Normal inferior vena cava. Normal retroperitoneum. Normal urinary bladder. The uterus is anteverted and oriented to the right. There is an IUD in place. Normal abdominal wall. There are diffuse degenerative changes of the visualized lumbar spine. There is bilateral pars defect of L5. CT/Abdomen/Pelvis W IV Cont ONLY IMPRESSION: Diffuse colonic dilatation extending into the sigmoid and rectal region compatible with diffuse ileus or alternatively syndrome. Superimposed enteritis not excluded. No distinct focal stricture or zone of transition seen. Unremarkable abdominal viscera. Electronically Signed: Bev Thompson MD at 21:20 EDT ,
[2023-03-03 19:47] LABS: Amorphous Sediment 1+ URATE; Bacteria 3+ /hpf (None Seen); Red Blood Cells-Urine 10-25 SEEN /hpf (0-5); Squamous Epithelial Cells - UA 5-10 SEEN /hpf (5-10); Uric Acid Crystals Ur 1+ /hpf (<or=1+); White Blood Cells 0-5 SEEN /hpf (0-5)
[2023-03-03 19:49] LABS: Absolute Lymphocyte Count 1.74 X10^3/uL (0.83-4.51); Absolute Neutrophil Count 3.2 X10^3/uL (2.0-7.7); Basophil# 0.04 X10^3/uL; Basophil% 0.7 % (0-1); Eosinophil# 0.13 X10^3/uL; Eosinophils% 2.4 % (0-5); Hematocrit 36.6 % (37-47); Hemoglobin 11.8 g/dL (12.0-15.0); Lymphocyte # 1.74 X10^3/ul (0.83-4.51); Lymphocyte % 31.7 % (19-41); Mean Corp Hgb Conc 32.2 g/dL (32-36); Mean Corpuscular Hgb 30.9 pg (27.0-32.0); Mean Corpuscular Volume 95.8 fL (81-99); Mean Platelet Vol. 10.3 fl (6.2-12.0); Monocyte# 0.34 X10^3/uL; Monocyte% 6.2 % (0-10); NRBC Flagged by Analyzer 0 % (0-5); Neutrophil # 3.23 X10^3/uL (2.7-7.7); Neutrophil % 58.8 % (47-70); Platelet Count 183 K/mm3 (150-450); RBC Distribution Width CV 13.2 % (11.6-14.6); RBC Distribution Width SD 46.3 fl (35.1-43.9); Red Blood Count 3.82 M/mm3 (4.2-5.4); White Blood Count 5.5 K/mm3 (4.4-11.0)
[2023-03-03 19:52] LABS: AST(SGOT) 23 U/L (15-37); Alanine Aminotransfer ALT/SGPT 30 U/L (13-56); Albumin, Serum 3.1 g/dL (3.2-5.0); Alkaline Phosphatase 65 U/L (45-117); Anion Gap 7 (5-15); BUN 11 mg/dL (7-18); BUN/Creat Ratio 14.8 RATIO (10-20); Calcium,Total 8.3 mg/dL (8.5-10.1); Chloride 110 mmol/L (98-107); Creatinine, Serum 0.74 mg/dL (0.55-1.02); EST Glomerular Filtration Rate 91 mL/min (>60); Est Glom Filt Rate - Afr Amer 110 mL/min (>60); Estimated Creatinine Clearance 86.39 ml/min; Globulin 3.1 g/dL (2.2-4.2); Glucose 101 mg/dL (74-106); Lipase 18 U/L (13-75); Potassium 3.2 mmol/L (3.5-5.1); Protein, Total 6.2 g/dL (6.4-8.2); Sodium Level 144 mmol/L (136-145)
[2023-03-03] MEDS: Morphine 4 MG/ML Syringe IV (20:30)
[2023-03-03] MEDS: Cephalexin 250 MG Capsule 500 MG PO (21:31)
[2023-03-03 22:06] VITALS: PULSE 65; RESP 16; O2SAT 99
== END 2023-03-03 22:07 | disposition home or self-care (01) ==
PROVIDERS: Physician Assistant; Emergency Provider Emergency Medicine; PCP Family Medicine; Visit Provider Emergency Medicine
DX: N39.0 Urinary tract infection, site not specified (principal); R10.84 Generalized abdominal pain; K59.00 Constipation, unspecified; K91.2 Postsurgical malabsorption, not elsewhere classified; F17.210 Nicotine dependence, cigarettes, uncomplicated
CPT/HCPCS: 74019; 74177; 80053; 81001; 83690; 85025; 87077; 87086; 87088; 87186; 96361; 96374; 96375; 99285; J7030; Q9967; A4216; J2405

== ENCOUNTER 2023-03-19 12:33 | Emergency (ER) | payer MEDICAID, SELFPAY ==
[2023-03-19 12:34] VITALS: BP 128/84; PULSE 65; RESP 16; TEMP 35.9; O2SAT 100; BMI 25.7
--- NOTE | 2023-03-19 13:43 | ED.RN ---
PATIENT SEEN BY THIS NURSE LEAVING ROOM, ASKED IF SHE WAS LEAVING WITHOUT BEING DISCHARGED AND PATIENT STATES YEP.
--- NOTE | 2023-03-19 14:07 | EX.ED.DYSGE1 ---
HPI History of Present Illness Chief Complaint: Complaint Informant: patient Narrative Narrative: 43-year-old female history of hypercoagulable state presenting to the emergency room with right hip pain. Patient states that yesterday she began to have a pain in the lateral aspect of her right hip. States now it seems like it radiates in towards the inguinal region. Now she also notes a pain in the right adnexal region that radiates to her back. She states that 2 months ago her [employer] requested a pelvic ultrasound because she was afraid that the IUD was on attaching itself from her. She does not know what she means by that. The patient states that she lost her insurance but now has it back and can be at least a month to get in with her [employer] to get ultrasound scheduled. She denies any urinary symptoms. She denies rash fever. No trauma to the leg. She notes irregular periods PFSH PFSH Medical History Anxiety Blood clotting disorder Kidney stone Protein C deficiency Protein S deficiency Short gut syndrome Smoker Home Medications ergocalciferol (vitamin D2) 1,250 mcg (50,000 unit) capsule 50,000 unit PO MOTUWETH supplement 10/09/14 [History Last Taken 08/17/21 08:00] calcium carbonate 500 mg calcium (1,250 mg) chewable tablet (Calcium 500) 500 mg PO BID #60 tabs 08/22/21 [Rx Last Taken Unknown] enoxaparin 80 mg/0.8 mL subcutaneous syringe (Lovenox) 70 mg (0.7 mL) subcut BID blood thin #8 mL 10/31/21 [Rx Last Taken Unknown] trxakifs-ydj-npmy 2.25 mg-folic acid 100 [id number]-lgugn acid tablet 1 tab PO TID 10/31/21 [History Last Taken Unknown] magnesium L-lactate 84 mg tablet,extended release 252 mg (3 x 84 mg) PO TID SUPPLEMENT #90 tabs 03/31/22 [Rx Last Taken Unknown] potassium chloride 20 mEq tablet,extended release 20 meq PO BID #60 tabs 03/31/22 [Rx Last Taken Unknown] enoxaparin 80 mg/0.8 mL subcutaneous syringe (Lovenox) 70 mg (0.7 mL) subcut BID #8 mL 10/08/22 [Rx Last Taken Unknown] metronidazole 500 mg tablet 500 mg PO BID #14 tabs 11/28/22 [Rx Last Taken Unknown] cephalexin 500 mg capsule 500 mg PO Q12 #14 CAPSULES 03/03/23 [Rx Last Taken Unknown] fluconazole 150 mg tablet 150 mg PO DAILY 1 dose #2 tabs 03/03/23 [Rx Last Taken Unknown] Allergy/AdvReac Type Severity Reaction Status Date / Time adhesive Allergy Itching Verified 03/19/23 12:34 amoxicillin [Amoxicillin] Allergy Hives Verified 03/19/23 12:34 Penicillins Allergy Hives Verified 03/19/23 12:34 Family History Grandmother Diabetes Heart disease Mother Heart disease Grandfather Lung cancer Liver cancer Brain cancer Surgical History History of removal of ovarian cyst Hx of cholecystectomy S/P hernia repair STEPS procedure Social History Smoking Status: Current every day smoker tobacco type: cigarettes and e-cigarettes alcohol intake: current alcohol intake frequency: holidays/special occasions only substance use type: does not use caffeine: Yes what type of physical activity do you participate in: none seatbelt use: always do you feel safe at home: Yes additional social history: - Lul Patient works with [employer] ED Constitutional Constitutional ED: Reports fever(s); Denies chills or weight loss Eyes Eyes: Denies change in vision or diplopia ENT ENT ED: Denies ear pain, rhinorrhea or sore throat Cardiovascular Cardiovascular: Denies chest pain, orthopnea, palpitations or racing heartbeat Respiratory/Chest Respiratory/Chest: Denies cough, dyspnea or orthopnea Gastrointestinal Gastrointestinal: Denies abdominal pain, diarrhea, nausea or vomiting Genitourinary Genitourinary ED: Reports other Details: See HPI ; Denies dysuria, hematuria or urinary frequency Musculoskeletal Musculoskeletal: Reports back pain and other Details: Right hip pain ; Denies arthralgias or myalgias Integumentary Denies abscess or rash Neurologic Neurologic: Denies headache(s) or weakness Psychiatric Psychiatric: Denies anxiety, depression, suicidal ideation or suicidal thoughts Endocrine Endocrinology: Denies polydipsia, polyphagia or polyuria Allergic/Immunologic Allergic/Immunologic ED: Denies mouth swelling, tongue swelling or urticaria EXAM Physical Exam Const Vital Signs: 03/19/23 12:34 Temperature 96.7 F L Temperature Source Temporal Pulse Rate 65 Respiratory Rate 16 Blood Pressure 128/84 H Blood Pressure Mean 98 Pulse Ox 100 Oxygen Delivery Method Room Air Positive well nourished and well developed General Appearance ED: well developed HEENT Reports normocephalic, head/scalp atraumatic and moist mucous membranes Eyes PERRL and EOMs intact bilaterally Neck no lymphadenopathy, supple and no JVD Resp normal respiratory effort and clear to auscultation bilaterally Cardio regular rate, regular rhythm and no murmurs GI normal to inspection, nondistended, normoactive bowel sounds GI Narrative: Patient reports tender to palpation right adnexal region. The abdomen is soft. Auscultation: normoactive bowel sounds Palpation: soft; Negative for guarding Back/Spine no CVA tenderness and normal ROM Extremity Extremity Narrative: I do not appreciate any swelling of the lower extremity. No palpable cords. No rash no ecchymosis. No hematomas. Negative logroll General Extremety ED: Negative for edema General Extremity: Negative for edema Neuro oriented x3 and CN's II-XII intact bilaterally Sensorium / Orientation: alert Motor Exam: strength 5/5 throughout Psych mental status grossly normal Mood & Affect: Negative for depressed or tearful Skin no rashes or lesions noted and no wounds MDM MDM MDM Narrative Medical decision making narrative: Given that the patient has pain over the lateral aspect the hip I highly doubt that this is a lower extremity DVT. I informed her we could obtain a pelvic ultrasound and check a urine but I think would be of low likelihood that after months of symptoms we did find an acute emergency today. Patient after I left the room got dressed and eloped from the emergency department. Discharge Plan Triage Chief Complaint: Complaint ED Provider: Toby Francis Dx/Rx/DC Orders Clinical Impression: Acute pain of right hip, Pelvic pain affecting Prescriptions: No Action ergocalciferol (vitamin D2) 50,000 UNIT capsule 50,000 unit PO MOTUWETH calcium carbonate [Calcium 500] 500 mg calcium (1,250 mg) tablet,chewable 500 mg PO BID Qty: 60 0RF [id number] 2.25 mg iron- 100 mcg Tablet 1 tab PO TID enoxaparin [Lovenox] 80 mg/0.8 mL Syringe 70 mg SUBCUT BID Qty: 8 0RF magnesium L-lactate 84 mg tablet extended release 252 mg PO TID Qty: 90 0RF potassium chloride 20 mEq tablet extended release 20 meq PO BID Qty: 60 0RF enoxaparin [Lovenox] 80 mg/0.8 mL syringe 70 mg subcut BID Qty: 8 2RF cephalexin 500 mg capsule 500 mg PO Q12 Qty: 14 0RF fluconazole 150 mg tablet 150 mg PO DAILY Qty: 2 0RF Rx Instructions: Repeat in 3 days if needed metronidazole 500 mg tablet 500 mg PO BID Qty: 14 0RF Primary Care Provider: José Luis Motley Referrals: José Luis Motley MD [Primary Care Provider] - Disposition Disposition: Elopement Discharge Date/Time: 03/19/23 14:04
== END 2023-03-19 14:04 | disposition left against medical advice (07) ==
LOC: ED 13:54
PROVIDERS: Emergency Provider Emergency Medicine; PCP Family Medicine; Visit Provider Emergency Medicine
DX: M25.551 Pain in right hip (principal); R10.2 Pelvic and perineal pain; F17.210 Nicotine dependence, cigarettes, uncomplicated
CPT/HCPCS: 99283

== ENCOUNTER 2023-06-21 09:23 | Emergency (ER) | payer MEDICAID, SELFPAY ==
[2023-06-21 09:24] VITALS: BP 151/91; PULSE 65; RESP 16; TEMP 35.9; O2SAT 97; BMI 24.8
--- NOTE | 2023-06-21 09:47 | EDS_ITS ---
HPI History of Present Illness Chief Complaint: Dental Detail of Chief Complaint: Dental pain. 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 Planing of several day history of dental pain. 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 Smoker Home Medications ergocalciferol (vitamin D2) 1,250 mcg (50,000 unit) capsule 50,000 unit PO MOTUWETH supplement 10/09/14 [History Last Taken 08/17/21 08:00] calcium carbonate 500 mg calcium (1,250 mg) chewable tablet (Calcium 500) 500 mg PO BID #60 tabs 08/22/21 [Rx Last Taken Unknown] enoxaparin 80 mg/0.8 mL subcutaneous syringe (Lovenox) 70 mg (0.7 mL) subcut BID blood thin #8 mL 10/31/21 [Rx Last Taken Unknown] [id number] 2.25 mg-folic acid 100 [id number] acid tablet 1 tab PO TID 10/31/21 [History Last Taken Unknown] magnesium L-lactate 84 mg tablet,extended release 252 mg (3 x 84 mg) PO TID SUPPLEMENT #90 tabs 03/31/22 [Rx Last Taken Unknown] potassium chloride 20 mEq tablet,extended release 20 meq PO BID #60 tabs 03/31/22 [Rx Last Taken Unknown] enoxaparin 80 mg/0.8 mL subcutaneous syringe (Lovenox) 70 mg (0.7 mL) subcut BID #8 mL 10/08/22 [Rx Last Taken Unknown] metronidazole 500 mg tablet 500 mg PO BID #14 tabs 11/28/22 [Rx Last Taken Unknown] cephalexin 500 mg capsule 500 mg PO Q12 #14 CAPSULES 03/03/23 [Rx Last Taken Un known] fluconazole 150 mg tablet 150 mg PO .COMPLEX #2 tabs 04/22/23 [Rx Last Taken Unknown] clindamycin HCl 300 mg capsule (Cleocin HCl) 300 mg PO Q6H 10 days #40 CAPSULES 06/21/23 [Rx Last Taken Unknown] Allergy/AdvReac Type Severity Reaction Status Date / Time adhesive Allergy Itching Verified 03/19/23 12:34 amoxicillin [Amoxicillin] Allergy Hives Verified 03/19/23 12:34 Penicillins Allergy Hives Verified 03/19/23 12:34 Family History Grandmother Diabetes Heart disease Mother Heart disease Grandfather Lung cancer Liver cancer Brain cancer Surgical History History of removal of ovarian cyst Hx of cholecystectomy S/P hernia repair STEPS procedure Social History Smoking Status: Current every day smoker tobacco type: cigarettes and e- cigarettes alcohol intake: current alcohol intake frequency: holidays/special occasions only substance use type: does not use caffeine: Yes what type of physical activity do you participate in: none seatbelt use: always do you feel safe at home: Yes additional social history: - Lul Patient works with [employer] ROS ROS ED ROS Narrative Denies recent illness. Review of Systems ROS Unobtainable: Denies due to encephalopathy Constitutional Constitutional ED: Denies chills or fever(s) Eyes Eyes: Denies blurry vision ENT ENT ED: Denies ear pain Cardiovascular Cardiovascular: Denies chest pain Respiratory/Chest Respiratory/Chest: Denies cough or dyspnea Gastrointestinal Gastrointestinal: Denies abdominal pain Genitourinary Genitourinary ED: Denies dysuria or hematuria Musculoskeletal Musculoskeletal: Denies arthralgias or back pain Integumentary Denies abscess or Abrasions Neurologic Neurologic: Denies headache(s) or paresthesias Hematologic/Lymphatic Hematologic/Lymphatic: Denies easy bleeding or easy bruising Allergic/Immunologic Allergic/Immunologic ED: Denies mouth swelling, tongue swelling or urticaria EXAM Physical Exam Narrative Exam Narrative: 43-year-old female no acute distress. Vital signs stable afebrile. HEENT exam multiple missing teeth. Multiple decayed teeth multiple cavities. Some teeth eroded down to the gumline in the right upper jaw. No abscess. Mild gingival swelling consistent with early gingivitis. No abscess. No trismus. Posterior pharynx normal. No difficulty swallowing or breathing. Rufino's angina is not present. Neck nontender no lymphadenopathy. Lungs clear. Heart regular rhythm no murmur. Abdomen soft. Otherwise exam unremarkable. Const Vital Signs: 06/21/23 09:24 Temperature 96.7 F L Temperature Source Temporal Pulse Rate 65 Respiratory Rate 16 Blood Pressure 151/91 H Blood Pressure Mean 111 Pulse Ox 97 Oxygen Delivery Method Room Air Positive well nourished and well developed; Negative for obese, cachectic, contractures or unkempt General Appearance ED: well developed and NAD; Negative for unkempt, cachectic, contractures or pallor Nutritional Appearance: Negative for cachectic or obese HEENT Denies other Negative for trauma, tenderness or other Mouth ED: Yes lips normal, Yes tongue normal, Yes salivary gland normal, No mouth trauma and Yes oral and palatal mucosa abnormal Mouth: lips normal, tongue normal, salivary gland normal, No mouth trauma and oral and palatal mucosa abnormal Teeth and Gingiva: abnormal tooth and associated gingiva, caries, gingiva abnormal, poor dentition and teeth discoloration Throat: posterior oropharynx normal Eyes PERRL and EOMs intact bilaterally General Eye ED: Negative for pale conjunctiva or scleral icterus Neck no lymphadenopathy, supple and no JVD General: normal visual inspection; Negative for anterior neck swelling, tenderness or submandibular swelling Lymph Lymphatic: no lymphadenopathy noted; Negative for lymphadenopathy Chest Wall inspection of chest normal and palpation of chest normal Resp normal respiratory effort, no retractions and clear to auscultation bilaterally Cardio regular rate, regular rhythm, S1 normal heart sound, S2 normal heart sound and no murmurs Jugular Venous Distention: Negative for other Palpation: Negative for palpable S3 or palpable S4 Rate: Negative for bradycardia or tachycardic Rhythm: Negative for abnormal rhythm GI normal to inspection, nondistended, normoactive bowel sounds, non-tender, non- distended and no masses Inspection: Negative for other Palpation: soft Back/Spine no CVA tenderness General Back: Negative for CVA tenderness Cervical Spine: Negative for other Thoracic Spine / Upper Back: Negative for thoracic spinal tenderness or paraspinal muscle tenderness Extremity normal to inspection and no joint enlargement General Extremety ED: Negative for edema General Extremity: Negative for edema Neuro oriented x3, CN's II-XII intact bilaterally, moves all extremities and no focal motor deficits Sensorium / Orientation: alert, oriented to person, oriented to place and oriented to time; Negative for orientation impaired Motor Exam: strength 5/5 throughout; Negative for general weakness or strength abnormal Psych mental status grossly normal Appearance: Negative for unkempt Attitude: No agitated Mood & Affect: Negative for depressed, anxious or tearful Skin no rashes or lesions noted and no wounds General Skin Exam: Negative for pallor MDM MDM MDM Narrative Medical decision making narrative: Multiple missing teeth with gingivitis and decay. She has a penicillin allergy. She was started on clindamycin 300 mg 4 times a day for 10 days. Follow-up with a dentist as soon as possible. Tylenol and Motrin for pain. History & Record Review Discussion w/independent historian: Patient Additional record(s) reviewed:: Prior inpatient record, Prior outpatient record, Prior ED visit and Prior labs Discharge Plan Triage Chief Complaint: Dental ED Provider: Douglas Salgado Dx/Rx/DC Orders Clinical Impression: Pain, dental, Protein C deficiency, Protein S deficiency, Short gut syndrome, Dental infection, Dental cavity Instructions: ED Dental Pain, ED Dental Cavity Prescriptions: New clindamycin HCl [Cleocin HCl] 300 mg capsule 300 mg PO Q6H 10 Days Qty: 40 0RF No Action ergocalciferol (vitamin D2) 50,000 UNIT capsule 50,000 unit PO MOTUWETH calcium carbonate [Calcium 500] 500 mg calcium (1,250 mg) tablet,chewable 500 mg PO BID Qty: 60 0RF [id number] 2.25 mg iron- 100 mcg Tablet 1 tab PO TID enoxaparin [Lovenox] 80 mg/0.8 mL Syringe 70 mg SUBCUT BID Qty: 8 0RF magnesium L-lactate 84 mg tablet extended release 252 mg PO TID Qty: 90 0RF potassium chloride 20 mEq tablet extended release 20 meq PO BID Qty: 60 0RF enoxaparin [Lovenox] 80 mg/0.8 mL syringe 70 mg subcut BID Qty: 8 2RF cephalexin 500 mg capsule 500 mg PO Q12 Qty: 14 0RF metronidazole 500 mg tablet 500 mg PO BID Qty: 14 0RF fluconazole 150 mg tablet 150 mg PO .COMPLEX Qty: 2 0RF Rx Instructions: 150 mg PO take one po now and repeat in 3 days Primary Care Provider: José Luis Motley Referrals: José Luis Motley MD [Primary Care Provider] - Cristine Schaffer [Non-Staff] - As soon as possible Activity Restrictions/Additional Instructions: Call your insurance and follow-up with a local dentist to soon as possible. The cristine starts him in clinic across the street also offers dental care. Motrin and Tylenol for pain. Clindamycin 1 pill 4 times a day till gone for dental infection. Disposition Disposition: Home, Self Care
[2023-06-21 09:53] VITALS: BP 131/78; PULSE 64; RESP 16; TEMP 36.4; O2SAT 99
--- OUTSIDE RECORDS SUMMARY | 2023-06-21 12:30 | XMS RPT_ITS | CCD ---
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 04/07/2023) 4 capsule 2 pyridoxine, vitamin B6, (VITAMIN B6) 50 mg tablet Take 2 tablets by mouth once daily. 60 tablet 2 Compression Stockings Knee High Compression Stockings 20-30 mm, DX: peripheral venous insufficiency. (Patient not taking: Reported on 11/26/2020) 2 Each 1 rifAXIMin (XIFAXAN) 550 mg tab Take 1 tablet by mouth three times daily. (Patient not taking: Reported on 08/01/2022) 45 tablet 0 No current facility-administered medications for this visit. Social History Tobacco Use Smoking status: Former Packs/day: 1.50 Years: 13.00 Additional pack years: 0.00 Total pack years: 19.50 Types: Cigarettes Quit date: 08/16/2013 Years since quittin.8 Smokeless tobacco: Never Vaping Use Vaping Use: current everyday user Substances: Nicotine Substance Use Topics Alcohol use: No Comment: currently does not drink Drug use: No Alcohol Use: No (currently does not drink) Tobacco Use: 1.5 packs/day, for 13 years. Quit 08/16/2013. Types: Cigarettes FAMILY HISTORY Problem Relation Age of Onset Hypertension Mother Hear (more content not included)... [facility] 06-04-2023 Note Education (GGENMN) NIURKA CONTEH ([id number]) 1980 F Date Time Provider Department 06/04/23 10:30 AM CGRT DIETITIAN GGENMN Reason for Visit: Established Patient [175] Primary Visit Diagnosis:Diarrhea due to malabsorption [K90.9, R19.7] During your visit today, we recorded the following information about you: Temperature Pulse Blood pressure Weight 96.9 degrees 55/minute 121/76 67.7 kg Height Last Period 1.626 m 05/03/23 Allergies As of Date: 06/04/2023 Noted Allergy Reaction ADHESIVE 09/07/2016 2 - Rash 9 - Itching AMOXICILLIN 09/26/2011 4 - Hives PENICILLINS 09/26/2011 4 - Hives Date Reviewed: 06/04/2023 Reviewed by: Shen Patel LPN - Fully Assessed Prescriptions as of 06/04/2023 - metroNIDAZOLE (FLAGYL) 250 mg tablet Take 1 tablet by mouth three times a day for 10 days. - loperamide (IMODIUM A-D) 2 mg cap(s) Take 1 capsule by mouth before meals and at bedtime. - cephALEXin (KEFLEX) 500 mg capsule Take 1 capsule by mouth every 12 hours. - Qajkcqrwsxypdxw-Qcjmqqgad-WX (BROMFED DM) 2-30-10 mg/5 mL syrup Take 10 mL by mouth four times daily as needed. - fluticasone (FLONASE) 50 mcg/actuation nasal spray Use 2 Sprays in each nostril once daily. Rinse mouth after use. - Food Supplement, Lactose-Free (ENSURE ACTIVE HIGH PROTEIN) liqd Take 237 mL by mouth three times daily with meals. - enoxaparin (LOVENOX) 100 mg/mL syrg Inject 0.7 mL subcutaneously q 12 HR. - vitamin A (AQUASOL A) 10,000 unit capsule Take 1 capsule by mouth twice daily. - ergocalciferol 50,000 unit capsule (VITAMIN D2, DRISDOL) Take 1 capsule by mouth two times a week. - HYDROcodone-acetaminophen (NORCO) 5-325 mg per tablet Take 1 tablet by mouth every 8 hours as needed for pain. - oxyCODONE-acetaminophen (PERCOCET) 5-325 mg tablet Take 1 tablet by mouth every 4 hours as needed for pain. - Vitamin E, dl, acetate, (VITAMIN E) 400 unit capsule Take 1 capsule by mouth twice daily. - cyanocobalamin 1,000 mcg/mL Inject 1 mL intramuscularly once every month. - Syringe with Needle, Disp, 3 mL 22 x 1 1/2 Use once monthly for vitamin B12 injections - cyanocobalamin (VITAMIN B-12) 1,000 mcg/mL Inject 1 mL intramuscularly once every month. Then resume monthly 1 mL injections for 2 months. Administer at [facility] - diphenoxylate-atropine (LOMOTIL) 2.5-0.025 mg per tablet Take 1 tablet by mouth before meals and at bedtime for 30 days. - vitamin A (AQUASOL A) 10,000 unit capsule Take 1 capsule by mouth twice daily. - Vitamin E, dl, acetate, (VITAMIN E) 400 unit capsule Take 1 capsule by mouth once daily. - ergocalciferol 50,000 unit capsule (VITAMIN D2, DRISDOL) Take 1 capsule by mouth one time a week. - pyridoxine, vitamin B6, (VITAMIN B6) 50 mg tablet Take 2 tablets by mouth once daily. - Compression Stockings Knee High Compression Stockings 20-30 mm, DX: peripheral venous insufficiency. - rifAXIMin (XIFAXAN) 550 mg tab Take 1 tablet by mouth three times daily. Meds Comments as of 11/21/2017: Probiotic daily, Vitamin E 400 unit daily Encounter Status:Closed by PHILIPPE HURD on 06/04/23 [facility] 06-04-2023 Note HNO ID: [id number] Author: PHILIPPE HURD RD Service: ? 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 Patient has since underwent STEP procedure 07/21/14 resulting in PN independence; however was unable to maintain adequate electrolytes and nutrition. Underwent second STEP 09/07/16 She was last seen in CGRT clinic with on 02/09/2021. At that time, patient reports complaints of muscle aches, and somewhat bothersome. Pains in abdominal scar and feels like stretching or tearing. Pain after eating, kind of bloating pain. Reports doing better recently, last ED visit for dehydration was back in 4 months ago. Presents today to re-establish care. She is feeling increased fatigue, dizziness, headaches and overall not feeling well. She was previously requiring extensive vitamin/mineral supplementation and routine IV Mg and K infusions. Provided low concentrated sweets diet education and reviewed ORS recipes. Will obtain full set of labs and vitamin/TE before re-starting supplementation. Also restarted Imodium and given rx of Flagyl for SIBO. Last Intestinal Surgery: 09/07/2016: STEP x 7, L ovarian cystectomy, VHR, BETHANY, bilateral separation of component 07/21/14: STEP 09/15/13: Exploratory laparotomy, washout, takedown of endo jejunostomy, jejunocolostomy. 08/31/13: Exploratory laparotomy, abdominal washout, biopsy of the lateral segment of the liver, and abdominal closure. 08/27/13: Exploratory laparotomy, total enterectomy, right hemicolectomy, end jejunostomy Anatomy: Per Surgical history, she has 78 cm of jejunum anastomosed to mid-transverse colon, no ICV, + rectum, +anus. Co-morbidities: HPN (08/2013 - 11/2014) 08/23/20 CT Ab: Liver diffusely hypodense consistent with fatty liver; Liver Bx 08/2013 showed portal and lobular inflammation, cholestasis and rare neutrophils within bile ducts Hypercoagable (Protein C AND S defn) - on Lovenox Hx of DVT Hx of SMA thrombosis Depression; in homeless long-term (03/05/19-11/2019) Bone Scan: 02/06/2016 z-score: -1.1 wiithin expected range for age Lack of social support Nephrolithiasis Resumed smoking (tobacco cigarettes 0.5-1 pk/day) Intake: Appetite is good, eats anything she wants. Doesn't restrict but does avoid high sugar foods. She does notice eating more starchy foods help thicken stool OP. She follows a Ad raji, low sugar diet taking 3 meals/day. Does not take oral protein supplements. This may is not nutritional adequate given short bowel syndrome. She drinks 2-3L fluid per day. Breakfast: jorge breakfast sandwich, hashbrowns, diet coke Lunch: sandwich, snacks: cheesy popcorn, goldfish, pretzels, fried chicken sandwich Dinner: steak, eggs, spghetti, pasta, steak, burgers, usually diet coke to drinks Fluids: diet coke (2-4 cans) water (16oz 3-4/day) Output: Urine output c/b UTI, feels otherwise that she is urinating every couple of hours. Little darker than lemonade. She reports 4-6 BM/day and 3x overnight. Consistency is usually watery and depends on what she eats. Gets more watery as the day progresses. +Burning stool. +Gas +bloating +smell. +Oily. +Feels as if she is having a SIBO flare. Relation to meals: 2 hours or so. Laboratory: Nutrition Labs Component Latest Ref Rng AND Units 04/13/2019 11/23/2019 02/25/2020 Vitamin E-alpha 6.0 - 23.0 mg/L 4.5 (L) 3.7 (L) 3.5 (L) Vitamin E-gamma 0.3 - 3.2 mg/L 0.5 0.5 0.4 Vitamin D 25 Hydroxy 31.0 - 80.0 ng/mL 15.4 (L) 37.4 40.1 Vitamin B12 232 - 1,245 pg/mL 238 247 231 (L) MMA 79 - 376 nmol/L 1,126 (H) 655 (H) 853 (H) Copper 85 - 155 ug/dL 52 (L) 73 (L) 62 (L) Vitamin A 0.30 - 1.20 mg/L 0.05 (L) 0.05 (L) 0.08 (L) Vitamin B6, Plasma 20.0 - 125.0 nmol/L 12.0 (L) 22.4 Zinc 55 - 150 ug/dL 68 74 66 Component Latest Ref Rng AND Units 06/01/2016 Triene/Tetraene Ratio <0.024 0.039 (H) Component Latest Ref Rng AND Units 11/23/2019 02/25/2020 Iron 41 - 186 ug/dL 67 86 TIBC 232 - 386 ug/dL 325 354 Transferrin Saturation 15 - 57 % 21 24 Ferritin 14.7 - 205.1 ng/mL 71.7 26.1 Medications: Current Outpatient Medications Medication Sig cephALEXin (KEFLEX) 500 mg capsule Take 1 capsule by mouth every 12 hours. (Patient not taking: Reported on 04/07/2023) Eneyzflrhpnrrgg-Zkeeigjei-IZ (BROMFED DM) 2-30-10 mg/5 mL syrup Take 10 mL by mouth four times daily as needed. (Patient not taking: Reported on 04/07/2023) fluticasone (FLONASE) 50 mcg/actuation nasal spray Use 2 Sprays in each nostril once daily. Rinse mouth after use. (Patient not taking: Reported on 04/07/2023) Food Supplement, Lactose-Free (ENSURE AC (more content not included)... [facility] 04-14-2023 Miscellaneous Notes Called patient, no answer,unable to leave message to call back. Unable to reach letter sent. Allyn Dyer LPN Called patient, no answer, left message to call back. Allyn Dyer LPN ----- Message from Matheus Leiva MD sent at 04/08/2023 7:45 AM EST ----- Please inform patient test was positive for COVID-19 negative for influenza and RSV. Patient needs to quarantine. Follow-up as needed. documented in this encounter [facility] 04-07-2023 Note HNO ID: [id number] Author: Matheus Leiva MD Service: ? Author Type: Physician Type: Progress Notes Filed: 04/07/2023 2:21 PM Note Text: Niurka Conteh is a 43 year old female who presents with Cough, Headache, and Nasal Congestion (S/S for (2) days) Accompanied by her boyfriend. She presents today with cough associated with green-yellow mucus as well as nasal drainage that she describes as green and yellow also. She is concerned that she has a sinus infection. She is not vaccinated against COVID-19 and requested to be tested. PAST MEDICAL HISTORY Diagnosis Date Back pain Chest pain 01/11/2014 Depression DVT (deep venous thrombosis) ([facility]) July 2013 Hypertension, essential 01/13/2018 Low blood magnesium 03/02/2016 Protein C deficiency ([facility]) Protein S deficiency ([facility]) S/P cholecystectomy SBO (small bowel obstruction) ([facility]) 05/25/2016 Short bowel syndrome 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 Intestinal Malabsorption Hypomagnesemia Surgery, Elective Moderate Protein Malnutrition ([facility]) Severe Protein-Calorie Malnutrition ([facility]) Protein C Deficiency ([facility]) Protein S Deficiency ([facility]) Hypertension, Essential Vitamin D Deficiency Vitamin B12 Deficiency Diarrhea Hypokalemia Current Outpatient Medications Medication Sig Dispense Refill Syringe with Needle, Disp, 3 mL 22 x 1 1/2 Use once monthly for vitamin B12 injections 3 Each 4 doxycycline (VIBRA-TABS) 100 mg tablet Take 1 tablet by mouth two times a day for 10 days. 20 tablet 0 cephALEXin (KEFLEX) 500 mg capsule Take 1 capsule by mouth every 12 hours. (Patient not taking: Reported on 04/07/2023) Dalrbczlawpfdkp-Rivprtlkb-XR (BROMFED DM) 2-30-10 mg/5 mL syrup Take 10 mL by mouth four times daily as needed. (Patient not taking: Reported on 04/07/2023) 200 mL 0 fluticasone (FLONASE) 50 mcg/actuation nasal spray Use 2 Sprays in each nostril once daily. Rinse mouth after use. (Patient not taking: Reported on 04/07/2023) 1 Each 0 Food Supplement, Lactose-Free (ENSURE ACTIVE HIGH PROTEIN) liqd Take 237 mL by mouth three times daily with meals. (Patient not taking: Reported on 08/07/2022) 64773 mL 2 enoxaparin (LOVENOX) 100 mg/mL syrg Inject 0.7 mL subcutaneously q 12 HR. (Patient not taking: Reported on 04/07/2023) 60 Syringe 5 vitamin A (AQUASOL A) 10,000 unit capsule Take 1 capsule by mouth twice daily. 60 capsule 2 ergocalciferol 50,000 unit capsule (VITAMIN D2, DRISDOL) Take 1 capsule by mouth two times a week. 8 capsule 2 HYDROcodone-acetaminophen (NORCO) 5-325 mg per tablet Take 1 tablet by mouth every 8 hours as needed for pain. (Patient not taking: Reported on 07/02/2022) 12 tablet 0 oxyCODONE-acetaminophen (PERCOCET) 5-325 mg tablet Take 1 tablet by mouth every 4 hours as needed for pain. (Patient not taking: Reported on 10/20/2021) 6 tablet 0 Vitamin E, dl, acetate, (VITAMIN E) 400 unit capsule Take 1 capsule by mouth twice daily. cyanocobalamin 1,000 mcg/mL Inject 1 mL intramuscularly once every month. 3 mL 3 cyanocobalamin (VITAMIN B-12) 1,000 mcg/mL Inject 1 mL intramuscularly once every month. Then resume monthly 1 mL injections for 2 months. Administer at [facility] 3 mL 4 diphenoxylate-atropine (LOMOTIL) 2.5-0.025 mg per tablet Take 1 tablet by mouth before meals and at bedtime for 30 days. (Patient not taking: Reported on 08/07/2022) 120 tablet 2 vitamin A (AQUASOL A) 10,000 unit capsule Take 1 capsule by mouth twice daily. 60 capsule 2 Vitamin E, dl, acetate, (VITAMIN E) 400 unit capsule Take 1 capsule by mouth once daily. 30 capsule 2 ergocalciferol 50,000 unit capsule (VITAMIN D2, DRISDOL) Take 1 capsule by mouth one time a week. (Patient not taking: Reported on 04/07/2023) 4 capsule 2 pyridoxine, vitamin B6, (VITAMIN B6) 50 mg tablet Take 2 tablets by mouth once daily. 60 tablet 2 Compression Stockings Knee High Compression Stockings 20-30 mm, DX: peripheral venous insufficiency. (Patient not taking: Reported on 11/26/2020) 2 Each 1 rifAXIMin (XIFAXAN) 550 mg tab Take 1 tablet by mouth three times daily. (Patient not taking: Reported on 08/01/2022) 45 tablet 0 No current facility-administered medications for this visit. Social History Tobacco Use Smoking status: Every Day Packs/day: 1.50 Years: 13.00 Additional pack years: 0.00 Total pack years: 19.50 Types: Cigarettes Last attempt to quit: 08/16/2013 Years since quittin.6 Smokeless tobacco: Never Substance Use Topics Alcohol use: No Comment: currently does not drink Drug use: No Alcohol Use: No (currently does not drink) Tobacco Use: 1.5 packs/day, for 13 years. Last attempt to quit 08/16/2013. Types: Cigarettes FAMILY HISTORY Problem Relation Age of Onset Hypertension Mother Heart Mother Psychiatry Father bi-polar Diabetes Maternal Grandmother Breast Cancer Maternal Aun (more content not included)... [facility] 04-07-2023 History of Presen t illness Narrative Niurka Conteh is a 43 year old female who presents with Cough, Headache, and Nasal Congestion (S/S for (2) days) Accompanied by her boyfriend. She presents today with cough associated with green-yellow mucus as well as nasal drainage that she describes as green and yellow also. She is concerned that she has a sinus infection. She is not vaccinated against COVID-19 and requested to be tested. PAST MEDICAL HISTORY Diagnosis Date Back pain Chest pain 01/11/2014 Depression DVT (deep venous thrombosis) ([facility]) July 2013 Hypertension, essential 01/13/2018 Low blood magnesium 03/02/2016 Protein C deficiency ([facility]) Protein S deficiency ([facility]) S/P cholecystectomy SBO (small bowel obstruction) ([facility]) 05/25/2016 Short bowel syndrome 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 Intestinal Malabsorption Hypomagnesemia Surgery, Elective Moderate Protein Malnutrition ([facility]) Severe Protein-Calorie Malnutrition ([facility]) Protein C Deficiency ([facility]) Protein S Deficiency ([facility]) Hypertension, Essential Vitamin D Deficiency Vitamin B12 Deficiency Diarrhea Hypokalemia Current Outpatient Medications Medication Sig Dispense Refill Syringe with Needle, Disp, 3 mL 22 x 1 1/2 Use once monthly for vitamin B12 injections 3 Each 4 doxycycline (VIBRA-TABS) 100 mg tablet Take 1 tablet by mouth two times a day for 10 days. 20 tablet 0 cephALEXin (KEFLEX) 500 mg capsule Take 1 capsule by mouth every 12 hours. (Patient not taking: Reported on 04/07/2023) Idhiepqykzzlfux-Usyrulqza-BR (BROMFED DM) 2-30-10 mg/5 mL syrup Take 10 mL by mouth four times daily as needed. (Patient not taking: Reported on 04/07/2023) 200 mL 0 fluticasone (FLONASE) 50 mcg/actuation nasal spray Use 2 Sprays in each nostril once daily. Rinse mouth after use. (Patient not taking: Reported on 04/07/2023) 1 Each 0 Food Supplement, Lactose-Free (ENSURE ACTIVE HIGH PROTEIN) liqd Take 237 mL by mouth three times daily with meals. (Patient not taking: Reported on 08/07/2022) 30600 mL 2 enoxaparin (LOVENOX) 100 mg/mL syrg Inject 0.7 mL subcutaneously q 12 HR. (Patient not taking: Reported on 04/07/2023) 60 Syringe 5 vitamin A (AQUASOL A) 10,000 unit capsule Take 1 capsule by mouth twice daily. 60 capsule 2 ergocalciferol 50,000 unit capsule (VITAMIN D2, DRISDOL) Take 1 capsule by mouth two times a week. 8 capsule 2 HYDROcodone-acetaminophen (NORCO) 5-325 mg per tablet Take 1 tablet by mouth every 8 hours as needed for pain. (Patient not taking: Reported on 07/02/2022) 12 tablet 0 oxyCODONE-acetaminophen (PERCOCET) 5-325 mg tablet Take 1 tablet by mouth every 4 hours as needed for pain. (Patient not taking: Reported on 10/20/2021) 6 tablet 0 Vitamin E, dl, acetate, (VITAMIN E) 400 unit capsule Take 1 capsule by mouth twice daily. cyanocobalamin 1,000 mcg/mL Inject 1 mL intramuscularly once every month. 3 mL 3 cyanocobalamin (VITAMIN B-12) 1,000 mcg/mL Inject 1 mL intramuscularly once every month. Then resume monthly 1 mL injections for 2 months. Administer at [facility] 3 mL 4 diphenoxylate-atropine (LOMOTIL) 2.5-0.025 mg per tablet Take 1 tablet by mouth before meals and at bedtime for 30 days. (Patient not taking: Reported on 08/07/2022) 120 tablet 2 vitamin A (AQUASOL A) 10,000 unit capsule Take 1 capsule by mouth twice daily. 60 capsule 2 Vitamin E, dl, acetate, (VITAMIN E) 400 unit capsule Take 1 capsule by mouth once daily. 30 capsule 2 ergocalciferol 50,000 unit capsule (VITAMIN D2, DRISDOL) Take 1 capsule by mouth one time a week. (Patient not taking: Reported on 04/07/2023) 4 capsule 2 pyridoxine, vitamin B6, (VITAMIN B6) 50 mg tablet Take 2 tablets by mouth once daily. 60 tablet 2 Compression Stockings Knee High Compression Stockings 20-30 mm, DX: peripheral venous insufficiency. (Patient not taking: Reported on 11/26/2020) 2 Each 1 rifAXIMin (XIFAXAN) 550 mg tab Take 1 tablet by mouth three times daily. (Patient not taking: Reported on 08/01/2022) 45 tablet 0 No current facility-administered medications for this visit. Social History Tobacco Use Smoking status: Every Day Packs/day: 1.50 Years: 13.00 Additional pack years: 0.00 Total pack years: 19.50 Types: Cigarettes Last attempt to quit: 08/16/2013 Years since quittin.6 Smokeless tobacco: Never Substance Use Topics Alcohol use: No Comment: currently does not drink Drug use: No Alcohol Use: No (currently does not drink) Tobacco Use: 1.5 packs/day, for 13 years. Last attempt to quit 08/16/2013. Types: Cigarettes FAMILY HISTORY Problem Relation Age of Onset Hypertension Mother Heart Mother Psychiatry Father bi-polar Diabetes Maternal Grandmother Breast Cancer Maternal Aunt Review of Systems Constitutional: Negative for chills and fever. HENT: Positive for congestion and sinus pain. Negative for ear pain and sore throat. Eyes: Negative for blurred vision. Respiratory: Positive for cough. Negative for sputum production, shortness of breath and wheezing. Cardiovascular: Negative for chest pain. Gastrointestinal: Negative for abdominal pain. Neurological: Positive for headaches. Negative for dizziness. BP 111/74 Pulse 67 Temp 98.7 Resp 18 Wt 146 lb 9.6 oz (66.5kg) SpO2 96% LMP 04/03/2023 Physical Exam Vitals and nursing note reviewed. Constitutional: Comments: PHYSICAL EXAMINATION: GENERAL:The patient is alert in no acute distress. HEAD: Head is atraumatic normocephalic. EYES: Extraocular muscles are intact bilaterally. Normal sclerae and conjunctivae. EARS: Tympanic membranes are normal. No perforation, effusion, erythema or drainage bilaterally. NOSE: Maxillary sinus tenderness to palpation bilaterally. MOUTH: Oropharynx is unremarkable. NECK: Trachea at midline. No anterior/posterior cervical adenopathy. No stridor. No trismus. No hoarseness. Normal phonation. LUNGS: No labored breathing. Lungs clear to auscultation. HEART: Regular rate and rhythm. No murmurs, rubs or gallops. MUSCULOSKELETAL: Moves all extremities. SKIN: Warm and dry no clubbing cyanosis or edema. No rashes. NEUROLOGY: Cranial nerves II through XII grossly intact without any focal neurological deficits. Motor strength 5/5 of all extremities. PSYCHIATRY: Cooperative. Normal mood and affect. Follow-up if not improving. Discharged in stable condition. ASSESSMENT/PLAN: 1. Acute non-recurrent maxillary sinusitis - ICD9: 461.0, ICD10: J01.00 (primary diagnosis) - DOXYCYCLINE HYCLATE 100 MG TABLET 2. URI with cough and congestion - ICD9: 465.9, ICD10: J06.9 - COVID AND INFLUENZA A/B & RSV NAAT, EXPEDITED Matheus Leiva documented in this encounter [facility] 03-19-2023 Emergency department Note Discharge instructions, follow up care, and pain management discussed with patient. All questions answered, there are no further questions at this time. IV removed, catheter intact, site covered with dry dressing. Patient tolerated well. RN educated on newly prescribed antibiotics including dose, use, and side effects. Patient verbalized understanding and ambulated off the unit independently at discharge. Jaclyn Barraza RN 03/19/231831 [facility] 03-19-2023 Emergency department Note Discharge instructions, follow up care, and pain management discussed with patient. All questions answered, there are no further questions at this time. IV removed, catheter intact, site covered with dry dressing. Patient tolerated well. RN educated on newly prescribed antibiotics including dose, use, and side effects. Patient verbalized understanding and ambulated off the unit independently at discharge. Jaclyn Barraza RN 03/19/[id number] [facility] ED EMERGENCY DEPARTMENT ENCOUNTER Pt Name: Niurka Conteh Birthdate 1980 Date of evaluation: 03/19/2023 Provider: Alejandro Barrett MD CHIEF COMPLAINT Chief Complaint Patient presents with Urinary Retention Pelvic Pain Right sided pelvic pain radiating to right flank, with urinary retention and burning with urination for the last 2-3 days HISTORY OF PRESENT ILLNESS I wore proper PPE for the entirety of this encounter. Niurka Conteh is a 43 y.o. female history nephrolithiasis, short gut syndrome who presents to the emergency department with right lower pelvic pain rating to her flank and lower back for the last 2 to 3 days. Patient notes some difficulty with urination. Very mild dysuria. Patient says this all feels similar to her prior kidney stone. Denies vaginal bleeding, vaginal discharge, hematuria. Nursing Notes were reviewed. REVIEW OF SYSTEMS Constitutional: as noted in HPI, and negative for fever/chills Eyes: as noted in HPI, and negative for vision changes ENT: as noted in HPI, and negative for cough CV: as noted in HPI, and negative for chest pain, negative for palpitations Resp: as noted in HPI, and negative for shortness of breath GI: as noted in HPI, and negative for n/v/d : as noted in HPI MSK: as noted in HPI Skin: as noted in HPI, and negative for rash Neuro: as noted in HPI, and negative for headaches, negative for acute focal weakness/numbness PAST MEDICAL HISTORY History reviewed. No pertinent past medical history. SURGICAL HISTORY History reviewed. No pertinent surgical history. CURRENT MEDICATIONS Previous Medications No medications on file ALLERGIES Amoxicillin and Penicillins FAMILY HISTORY No family history on file. SOCIAL HISTORY Social History Socioeconomic History Marital status: Single SCREENINGS PHYSICAL EXAM ED Triage Vitals [03/19/23 1648] Temp Heart Rate Resp BP 36.7 C (98 F) 63 17 123/87 SpO2 Temp Source Heart Rate Source Patient Position 100 % Temporal Monitor -- BP Location FiO2 (%) -- -- Constitutional: No acute distress HEENT:Head: Atraumatic/normocephalic Eyes: Conjunctivae normal. ENT: Mucous membranes moist. Neck: Normal ROM, supple CV: RRR RESP: CTAB, good respiratory effort, no increased wob GI: Abdomen soft, minimal right lower quadrant tenderness, non-distended, +BS, no guarding or rebound tenderness MSK: Normal bulk and tone, no gross deformity BACK: Mild right CVA tenderness. No C/T/L-spine tenderness EXTR: Warm and well perfused, no edema SKIN: No rash/bruising/erythema PSYCH: Appropriate affect, cooperative behavior NEURO: Alert and oriented x 3, face symmetric, no slurred speech L1-L2 Inner thigh sensation intact L2 Adduct Thigh (cross legs) 5/5 L3 Extend Knee 5/5 bilaterally L4 Dorsiflex Ankle (Up) 5/5 bilaterally L5 Point Great Toe Up 5/5 bilaterally L2 L3-L4 Knee Reflex intaxt S1 Flex Knee 5/5 bilaterally S2 Plantarflex Toes 5/5 bilaterally S3, 4, 5 Groin, Perianal Sensation intact DIAGNOSTIC RESULTS Interpretation per the Radiologist below, if available at the time of this note: CT abdomen pelvis wo IV contrast Final Result There are multiple fluid-filled loops of small and large bowel without a transition point to suggest obstruction. Prior GI surgery noted. Lack of GI contrast does limit overall evaluation. Correlate with clinical exam. No hydronephrosis. Cholecystectomy. Additional findings, as above. Report Dictated on Electronically Signed By: Lainey Ramires MD Electronically Signed Date/Time: 03/19/2023 5:55 PM EDT LABS: Labs Reviewed CBC WITH AUTO DIFFERENTIAL - Abnormal Result Value Auto WBC 6.4 RBC 3.83 Hemoglobin 11.9 Hematocrit 36.7 MCV 95.8 MCH 31.1 MCHC 32.4 RDW 13.6 Platelets 170 MPV 9.4 Neutrophils Relative 64.1 Lymphocytes Relative 27.5 Monocytes Relative 5.8 Eosinophils Relative 1.7 Basophils Relative 0.6 Immature Grans % 0.3 (*) Neutrophils Absolute 4.1 Lymphocytes Absolute 1.8 Monocytes Absolute 0.4 Eosinophils Absolute 0.1 Basophils Absolute 0.0 Immature Grans Absolute 0.0 COMPLETE URINALYSIS - Abnormal Color, Urine Light Yellow Clarity, Urine Clear pH, Urine 5.0 Leukocytes, Urine Negative Nitrite, Urine Positive (*) Protein, Urine Negative Glucose, Urine Normal Bilirubin, Urine Negative Ketones, Urine Negative Urobilinogen, Urine Normal Blood, Urine Negative Volume, Urine 12 mL RBC, Urine 0-2 WBC, Urine 0-2 Squamous Epithelial, Urine 6-10 (*) Bacteria, Urine Moderate (*) Mucus, Urine Few SPECIFIC GRAVITY OF URINE (NUMERIC) 1.015 COMPREHENSIVE METABOLIC PANEL - Normal SODIUM 140 POTASSIUM 4.1 CHLORIDE 105 CARBON DIOXIDE 26 ANION GAP 9 UREA NITROGEN 8 CREATININE 0.66 GLUCOSE 83 CALCIUM 8.7 AST (SGOT) 25 ALT 25 ALKALINE PHOSPHATASE 44 ALBUMIN 3.7 BILIRUBIN, TOTAL 0.6 TOTAL PROTEIN 6.4 eGFR >90.0 COMPLETE URINALYSIS WITH REFLEX TO CULTURE Narrative: The following orders were created for panel order Urinalysis Complete with reflex to Culture. Procedure Abnormality Status --------- ------ Complete Urinalysis[[id number]] Abnormal Final result Please view results for these tests on the individual orders. HCG QUALITATIVE URINE HCG,URINE QUAL Negative Narrative: is the most common reason for HCG in urine, although choriocarcinoma, hydatidiform mole, and certain nontrophoblastic malignancies also result in detectable urinary HCG levels. Sensitivity = 20mIU/mL. EMERGENCY DEPARTMENT COURSE and DIFFERENTIAL DIAGNOSIS/MDM: Vitals: Vitals: 03/19/23 1648 BP: 123/87 Pulse: 63 Resp: 17 Temp: 36.7 C (98 F) TempSrc: Temporal SpO2: 100% Weight: 68 kg (150 lb) Height: 1.626 m (5' 4 ) Medications sodium chloride 0.9 % bolus 1,000 mL (1,000 mL IntraVENous New Bag 03/19/231716) ketorolac (Toradol) injection 15 mg (15 mg IntraVENous Given 03/19/231716) I personally saw the patient and performed a substantive portion of the visit including all aspects of the medical decision making. Appears nontoxic and vital signs are normal. Toradol 15 mg IV ordered for pain. 1 L of IV fluids for dehydration. Patient then felt moderately improved. Work-up as below is concerning for urinary tract infection. Given the flank pain, I have concern for pyelonephritis. Patient has some allergies to amoxicillin and penicillin so I prescribed her Bactrim for 10 days. I completed a structured, evidence-based clinical evaluation to screen for acute non-traumatic spinal emergencies. The patient has a normal detailed neurologic exam and a low red flag score (as outlined by [facility]' low back pain CMT). The evidence indicates that the patient is very low risk for an acute spinal emergency and this is consistent with my clinical intuition. The risk of further workup is higher than the likelihood of the patient having a spinal epidural abscess or other dangerous emergency spinal condition. It is, therefore, in the patient s best interest not to do additional emergent testing at this time. Considering the flank/back pain, no back pain red flags on history or physical. Presentation not consistent with malignancy (lack of history of malignancy, lack of B symptoms), fracture (no trauma, no bony tenderness to palpation), cauda equina (no bowel or urinary incontinence/retention, no saddle anesthesia, no distal weakness), AAA, viscus perforation, osteomyelitis or epidural abscess (no IVDU, vertebral tenderness), renal colic, pyelonephritis (afebrile, no CVAT, no urinary symptoms). Given the clinical picture, no indication for imaging at this time. I have discussed with the patient my clinical impression and the result of an evidence-based clinical evaluation to screen for spinal epidural abscess and other spinal emergencies, as well as the risk of further testing and hospitalization. The evidence shows that the risk for an acute spinal emergency is less than 1%. Although the risk of an acute spinal emergency has not been completely eliminated, the risks of further testing likely exceed any potential benefit, and the patient agrees with not pursuing further emergent evaluation for causes of back pain at this time. CT abdominal and pelvis with no free air concerning for bowel perforation, no inflammatory changes in the RLQ concerning for appendicitis, no sign of obstruction on my interpretation. Abdominal exam without peritoneal signs. No evidence of acute abdomen at this time. Well appearing. Given work up, low suspicion for acute hepatobiliary disease (including acute cholecystitis or cholangitis), acute pancreatitis (no epigastric tenderness), PUD (including gastric perforation), acute infectious processes (pneumonia, hepatitis, pyelonephritis), acute appendicitis, vascular catastrophe, bowel obstruction, viscus perforation, ovarian torsion (pain is mild, alternative explanation found), or diverticulitis. Presentation not consistent with other acute, emergent causes of abdominal pain at this time. Patient discharged home in good condition. ED Course as of 03/19/23 1812 Tue Mar 19, 2023 1716 PVR 73ml [KATHYA] 1727 CBC auto differential(!) No leukocytosis [KATHYA] 1727 HCG,URINE QUAL: Negative Negative [KATHYA] 1740 Urinalysis Complete with reflex to Culture(!) Likely UTI [KATHYA] 1740 Comprehensive metabolic panel normal including normal creatinine [KATHYA] 1759 CT abdomen pelvis wo IV contrast IMPRESSION: There are multiple fluid-filled loops of small and large bowel without a transition point to suggest obstruction. Prior GI surgery noted. Lack of GI contrast does limit overall evaluation. Correlate with clinical exam. No hydronephrosis. Cholecystectomy. Additional findings, as above. [KATHYA] ED Course User Index [KATHYA] Alejandro Barrett MD Diagnoses as of 03/19/231811 Pyelonephritis PROCEDURES: Unless otherwise noted below, none Procedures Patients symptoms are consistent with sepsis, severe sepsis, or septic shock (If yes use .sepsiscoremeasure ): no FINAL IMPRESSION 1. Pyelonephritis DISPOSITION/PLAN Discharge 03/19/2023 06:09:39 PM PATIENT REFERRED TO: Starr Baker [address] [facility] [address] Schedule an appointment as soon as possible for a visit DISCHARGE MEDICATIONS: New Prescriptions SULFAMETHOXAZOLE-TRIMETHOPRIM (BACTRIM DS) 800-160 MG TABLET Take 1 tablet by mouth 2 times daily for 10 days. (Please note: Portions of this note were completed with a voice recognition program. Efforts were made to edit the dictations but occasionally words and phrases are mis-transcribed.) Alejandro Barrett MD [facility] Emergency Medicine Physician [facility] Alejandro Barrett MD 03/19/231811 Patient ambulatory to room 14 presenting with urinary retention and right sided pelvic pain with radiation to right flank that started 2-3 days ago. She reports a history of kidney stones and reports that a few months ago she was supposed to have one surgically removed but never did due to insurance problems. She reports brown intermittent spotting and does have an IUD in place, she attempted to get in with her OB but was unable to for the next month. She reports a history of urinary tract infections and kidney infections. Denies exposure to STD's, and denies discharge. She also has a history of ovarian cysts on the right. Patient also reports chills but denies fevers and nausea/vomiting, she is afebrile in triage and vital signs are stable. She ambulated to the bathroom and provided a urine sample in triage. Family is bedside, and call light is in reach. documented in this encounter [facility] 03-19-2023 Hospital Discharg e instructions Alejandro Barrett MD - 03/19/2023 6:10 PM EDT You were seen in the Emergency Department for abdominal and flank pain. Your workup here showed that you have a urinary tract infection that has gone up to the kidneys. You should drink plenty of fluids and take the antibiotics as prescribed. Follow-up with your primary care provider soon as possible. Return to the Emergency Department if you have: -Severe pain - High fever (102F) - Any other symptoms that concern you Please sign up for MyChart and review all results from your visit today. Please follow up with your primary care provider with any questions or concerns about your results today. Thank you for choosing [facility] for your care. Sincerely, Alejandro Barrett MD The following attachments cannot be sent through Care Everywhere.Kidney Infection Discharge Instructions (Urdu)documented in this encounter [facility] 03-19-2023 Emergency department Triage note Patient ambulatory to room 14 presenting with urinary retention and right sided pelvic pain with radiation to right flank that started 2-3 days ago. She reports a history of kidney stones and reports that a few months ago she was supposed to have one surgically removed but never did due to insurance problems. She reports brown intermittent spotting and does have an IUD in place, she attempted to get in with her OB but was unable to for the next month. She reports a history of urinary tract infections and kidney infections. Denies exposure to STD's, and denies discharge. She also has a history of ovarian cysts on the right. Patient also reports chills but denies fevers and nausea/vomiting, she is afebrile in triage and vital signs are stable. She ambulated to the bathroom and provided a urine sample in triage. Family is bedside, and call light is in reach. [facility] 03-19-2023 Physician Emergency department Note [facility] ED EMERGENCY DEPARTMENT ENCOUNTER Pt Name: Niurka Conteh Birthdate 1980 Date of evaluation: 03/19/2023 Provider: Alejandro Barrett MD CHIEF COMPLAINT Chief Complaint Patient presents with Urinary Retention Pelvic Pain Right sided pelvic pain radiating to right flank, with urinary retention and burning with urination for the last 2-3 days HISTORY OF PRESENT ILLNESS I wore proper PPE for the entirety of this encounter. Niurka Conteh is a 43 y.o. female history nephrolithiasis, short gut syndrome who presents to the emergency department with right lower pelvic pain rating to her flank and lower back for the last 2 to 3 days. Patient notes some difficulty with urination. Very mild dysuria. Patient says this all feels similar to her prior kidney stone. Denies vaginal bleeding, vaginal discharge, hematuria. Nursing Notes were reviewed. REVIEW OF SYSTEMS Constitutional: as noted in HPI, and negative for fever/chills Eyes: as noted in HPI, and negative for vision changes ENT: as noted in HPI, and negative for cough CV: as noted in HPI, and negative for chest pain, negative for palpitations Resp: as noted in HPI, and negative for shortness of breath GI: as noted in HPI, and negative for n/v/d : as noted in HPI MSK: as noted in HPI Skin: as noted in HPI, and negative for rash Neuro: as noted in HPI, and negative for headaches, negative for acute focal weakness/numbness PAST MEDICAL HISTORY History reviewed. No pertinent past medical history. SURGICAL HISTORY History reviewed. No pertinent surgical history. CURRENT MEDICATIONS Previous Medications No medications on file ALLERGIES Amoxicillin and Penicillins FAMILY HISTORY No family history on file. SOCIAL HISTORY Social History Socioeconomic History Marital status: Single SCREENINGS PHYSICAL EXAM ED Triage Vitals [03/19/23 1648] Temp Heart Rate Resp BP 36.7 C (98 F) 63 17 123/87 SpO2 Temp Source Heart Rate Source Patient Position 100 % Temporal Monitor -- BP Location FiO2 (%) -- -- Constitutional: No acute distress HEENT:Head: Atraumatic/normocephalic Eyes: Conjunctivae normal. ENT: Mucous membranes moist. Neck: Normal ROM, supple CV: RRR RESP: CTAB, good respiratory effort, no increased wob GI: Abdomen soft, minimal right lower quadrant tenderness, non-distended, +BS, no guarding or rebound tenderness MSK: Normal bulk and tone, no gross deformity BACK: Mild right CVA tenderness. No C/T/L-spine tenderness EXTR: Warm and well perfused, no edema SKIN: No rash/bruising/erythema PSYCH: Appropriate affect, cooperative behavior NEURO: Alert and oriented x 3, face symmetric, no slurred speech L1-L2 Inner thigh sensation intact L2 Adduct Thigh (cross legs) 5/5 L3 Extend Knee 5/5 bilaterally L4 Dorsiflex Ankle (Up) 5/5 bilaterally L5 Point Great Toe Up 5/5 bilaterally L2 L3-L4 Knee Reflex intaxt S1 Flex Knee 5/5 bilaterally S2 Plantarflex Toes 5/5 bilaterally S3, 4, 5 Groin, Perianal Sensation intact DIAGNOSTIC RESULTS Interpretation per the Radiologist below, if available at the time of this note: CT abdomen pelvis wo IV contrast Final Result There are multiple fluid-filled loops of small and large bowel without a transition point to suggest obstruction. Prior GI surgery noted. Lack of GI contrast does limit overall evaluation. Correlate with clinical exam. No hydronephrosis. Cholecystectomy. Additional findings, as above. Report Dictated on Electronically Signed By: Lainey Ramires MD Electronically Signed Date/Time: 03/19/2023 5:55 PM EDT LABS: Labs Reviewed CBC WITH AUTO DIFFERENTIAL - Abnormal Result Value Auto WBC 6.4 RBC 3.83 Hemoglobin 11.9 Hematocrit 36.7 MCV 95.8 MCH 31.1 MCHC 32.4 RDW 13.6 Platelets 170 MPV 9.4 Neutrophils Relative 64.1 Lymphocytes Relative 27.5 Monocytes Relative 5.8 Eosinophils Relative 1.7 Basophils Relative 0.6 Immature Grans % 0.3 (*) Neutrophils Absolute 4.1 Lymphocytes Absolute 1.8 Monocytes Absolute 0.4 Eosinophils Absolute 0.1 Basophils Absolute 0.0 Immature Grans Absolute 0.0 COMPLETE URINALYSIS - Abnormal Color, Urine Light Yellow Clarity, Urine Clear pH, Urine 5.0 Leukocytes, Urine Negative Nitrite, Urine Positive (*) Protein, Urine Negative Glucose, Urine Normal Bilirubin, Urine Negative Ketones, Urine Negative Urobilinogen, Urine Normal Blood, Urine Negative Volume, Urine 12 mL RBC, Urine 0-2 WBC, Urine 0-2 Squamous Epithelial, Urine 6-10 (*) Bacteria, Urine Moderate (*) Mucus, Urine Few SPECIFIC GRAVITY OF URINE (NUMERIC) 1.015 COMPREHENSIVE METABOLIC PANEL - Normal SODIUM 140 POTASSIUM 4.1 CHLORIDE 105 CARBON DIOXIDE 26 ANION GAP 9 UREA NITROGEN 8 CREATININE 0.66 GLUCOSE 83 CALCIUM 8.7 AST (SGOT) 25 ALT 25 ALKALINE PHOSPHATASE 44 ALBUMIN 3.7 BILIRUBIN, TOTAL 0.6 TOTAL PROTEIN 6.4 eGFR >90.0 COMPLETE URINALYSIS WITH REFLEX TO CULTURE Narrative: The following orders were created for panel order Urinalysis Complete with reflex to Culture. Procedure Abnormality Status --------- ------ Complete Urinalysis[[id number]] Abnormal Final result Please view results for these tests on the individual orders. HCG QUALITATIVE URINE HCG,URINE QUAL Negative Narrative: is the most common reason for HCG in urine, although choriocarcinoma, hydatidiform mole, and certain nontrophoblastic malignancies also result in detectable urinary HCG levels. Sensitivity = 20mIU/mL. EMERGENCY DEPARTMENT COURSE and DIFFERENTIAL DIAGNOSIS/MDM: Vitals: Vitals: 03/19/23 1648 BP: 123/87 Pulse: 63 Resp: 17 Temp: 36.7 C (98 F) TempSrc: Temporal SpO2: 100% Weight: 68 kg (150 lb) Height: 1.626 m (5' 4 ) Medications sodium chloride 0.9 % bolus 1,000 mL (1,000 mL IntraVENous New Bag 03/19/231716) ketorolac (Toradol) injection 15 mg (15 mg IntraVENous Given 03/19/231716) I personally saw the patient and performed a substantive portion of the visit including all aspects of the medical decision making. Appears nontoxic and vital signs are normal. Toradol 15 mg IV ordered for pain. 1 L of IV fluids for dehydration. Patient then felt moderately improved. Work-up as below is concerning for urinary tract infection. Given the flank pain, I have concern for pyelonephritis. Patient has some allergies to amoxicillin and penicillin so I prescribed her Bactrim for 10 days. I completed a structured, evidence-based clinical evaluation to screen for acute non-traumatic spinal emergencies. The patient has a normal detailed neurologic exam and a low red flag score (as outlined by [facility]' low back pain CMT). The evidence indicates that the patient is very low risk for an acute spinal emergency and this is consistent with my clinical intuition. The risk of further workup is higher than the likelihood of the patient having a spinal epidural abscess or other dangerous emergency spinal condition. It is, therefore, in the patient s best interest not to do additional emergent testing at this time. Considering the flank/back pain, no back pain red flags on history or physical. Presentation not consistent with malignancy (lack of history of malignancy, lack of B symptoms), fracture (no trauma, no bony tenderness to palpation), cauda equina (no bowel or urinary incontinence/retention, no saddle anesthesia, no distal weakness), AAA, viscus perforation, osteomyelitis or epidural abscess (no IVDU, vertebral tenderness), renal colic, pyelonephritis (afebrile, no CVAT, no urinary symptoms). Given the clinical picture, no indication for imaging at this time. I have discussed with the patient my clinical impression and the result of an evidence-based clinical evaluation to screen for spinal epidural abscess and other spinal emergencies, as well as the risk of further testing and hospitalization. The evidence shows that the risk for an acute spinal emergency is less than 1%. Although the risk of an acute spinal emergency has not been completely eliminated, the risks of further testing likely exceed any potential benefit, and the patient agrees with not pursuing further emergent evaluation for causes of back pain at this time. CT abdominal and pelvis with no free air concerning for bowel perforation, no inflammatory changes in the RLQ concerning for appendicitis, no sign of obstruction on my interpretation. Abdominal exam without peritoneal signs. No evidence of acute abdomen at this time. Well appearing. Given work up, low suspicion for acute hepatobiliary disease (including acute cholecystitis or cholangitis), acute pancreatitis (no epigastric tenderness), PUD (including gastric perforation), acute infectious processes (pneumonia, hepatitis, pyelonephritis), acute appendicitis, vascular catastrophe, bowel obstruction, viscus perforation, ovarian torsion (pain is mild, alternative explanation found), or diverticulitis. Presentation not consistent with other acute, emergent causes of abdominal pain at this time. Patient discharged home in good condition. ED Course as of 03/19/231811 Tue Mar 19, 2023 1716 PVR 73ml [KATHYA] 1727 CBC auto differential(!) No leukocytosis [KATHYA] 1727 HCG,URINE QUAL: Negative Negative [KATHYA] 1740 Urinalysis Complete with reflex to Culture(!) Likely UTI [KATHYA] 1740 Comprehensive metabolic panel normal including normal creatinine [KATHYA] 1759 CT abdomen pelvis wo IV contrast IMPRESSION: There are multiple fluid-filled loops of small and large bowel without a transition point to suggest obstruction. Prior GI surgery noted. Lack of GI contrast does limit overall evaluation. Correlate with clinical exam. No hydronephrosis. Cholecystectomy. Additional findings, as above. [KATHYA] ED Course User Index [KATHYA] Alejandro Barrett MD Diagnoses as of 03/19/231811 Pyelonephritis PROCEDURES: Unless otherwise noted below, none Procedures Patients symptoms are consistent with sepsis, severe sepsis, or septic shock (If yes use .sepsiscoremeasure ): no FINAL IMPRESSION 1. Pyelonephritis DISPOSITION/PLAN Discharge 03/19/2023 06:09:39 PM PATIENT REFERRED TO: Starr Baker [address] [facility] [address] Schedule an appointment as soon as possible for a visit DISCHARGE MEDICATIONS: New Prescriptions SULFAMETHOXAZOLE-TRIMETHOPRIM (BACTRIM DS) 800-160 MG TABLET Take 1 tablet by mouth 2 times daily for 10 days. (Please note: Portions of this note were completed with a voice recognition program. Efforts were made to edit the dictations but occasionally words and phrases are mis-transcribed.) Alejandro Barrett MD [facility] Emergency Medicine Physician [facility] Alejandro Barrett MD 03/19/231811 [facility] 03-08-2023 Note HNO ID: [id number] Author: Inés Flores APRN.ADMINISTRATIVE SUPPORT COORDINATOR Service: ? Author Type: Nurse Practitioner Type: Progress Notes Filed: 03/08/2023 12:12 PM Note Text: This note was created using NoteWriter. Subjective Niurka Conteh is a 42 year old female. 42 year old female with PMH HTN presents for complaints of illness. Acute onset yesterday +headache +fever +sore throat +ear pain +fatigue +body aches Denies SOB or dyspnea Denies abdominal pain Denies N/V/D On Saturday she was seen in ED for UTI, placed on Keflex +tobacco usage. Has used Tylenol Want to make sure I don't have strep The history is provided by the patient. No oracle hyperion consultant was used. URI There is no chest tightness, cough, difficulty breathing, frequent throat clearing, hemoptysis, hoarse voice, shortness of breath, sputum production or wheezing. This is a new problem. The current episode started yesterday. The problem occurs constantly. The problem has been unchanged. Associated symptoms include ear pain, a fever, malaise/fatigue, myalgias, rhinorrhea and a sore throat. Pertinent negatives include no appetite change, chest pain, dyspnea on exertion, ear congestion, headaches, heartburn, nasal congestion, orthopnea, PND, postnasal drip, sneezing, sweats, trouble swallowing or weight loss. Her symptoms are aggravated by nothing. Her symptoms are alleviated by nothing. She reports no improvement on treatment. There are no known risk factors for lung disease. There is no history of asthma, bronchiectasis, bronchitis, COPD, emphysema or pneumonia. 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 small intestine remain LAP PARTIAL COLECTOMY W/ANASTOMOSIS 09/15/13 REMOVAL GALLBLADDER 2003 ALLERGIES Adhesive, Amoxicillin, and Penicillins MEDICATIONS cephALEXin (KEFLEX) 500 mg capsule Take 1 capsule by mouth every 12 hours. enoxaparin (LOVENOX) 100 mg/mL syrg Inject 0.7 mL subcutaneously q 12 HR. ergocalciferol 50,000 unit capsule (VITAMIN D2, DRISDOL) Take 1 capsule by mouth one time a week. magnesium lactate ER (MAGTAB) 84 mg TbER Take one tablet between meals twice daily and take three tablets at bedtime (totaling 5 tablets per day). MULTIVIT-MINERALS/FOLIC ACID (CENTRUM MULTIGUMMIES ORAL) Take 2 tablets by mouth twice daily. Kapdpsaawtesmvp-Nkujupncd-OS (BROMFED DM) 2-30-10 mg/5 mL syrup Take 10 mL by mouth four times daily as needed. fluticasone (FLONASE) 50 mcg/actuation nasal spray Use 2 Sprays in each nostril once daily. Rinse mouth after use. Food Supplement, Lactose-Free (ENSURE ACTIVE HIGH PROTEIN) liqd Take 237 mL by mouth three times daily with meals. (Patient not taking: Reported on 08/07/2022) vitamin A (AQUASOL A) 10,000 unit capsule Take 1 capsule by mouth twice daily. ergocalciferol 50,000 unit capsule (VITAMIN D2, DRISDOL) Take 1 capsule by mouth two times a week. HYDROcodone-acetaminophen (NORCO) 5-325 mg per tablet Take 1 tablet by mouth every 8 hours as needed for pain. (Patient not taking: Reported on 07/02/2022) oxyCODONE-acetaminophen (PERCOCET) 5-325 mg tablet Take 1 tablet by mouth every 4 hours as needed for pain. (Patient not taking: Reported on 10/20/2021) Vitamin E, dl, acetate, (VITAMIN E) 400 unit capsule Take 1 capsule by mouth twice daily. cyanocobalamin 1,000 mcg/mL Inject 1 mL intramuscularly once every month. Magnesium Oxide-Mg AA Chelate 133 mg tab Take 1 tablet by mouth three times daily before meals. Syringe with Needle, Disp, 3 mL 22 x 1 1/2 Use once monthly for vitamin B12 injections cyanocobalamin (VITAMIN B-12) 1,000 mcg/mL Inject 1 mL intramuscularly once every month. Then resume monthly 1 mL injections for 2 months. Administer at [facility] diphenoxylate-atropine (LOMOTIL) 2.5-0.025 mg per tablet Take 1 tablet by mouth before meals and at bedtime for 30 days. (Patient not taking: Reported on 08/07/2022) vitamin A (AQUASOL A) 10,000 unit capsule Take 1 capsule by mouth twice daily. Vitamin E, dl, acetate, (VITAMIN E) 400 unit capsule Take 1 capsule by mouth once daily. iron polysaccharide complex (FERREX-150) 150 mg iron capsule Take 1 capsule by mouth twice daily. (Patient not taking: Reported on 08/07/2022) pyridoxine, vitamin B6, (VITAMIN B6) 50 mg tablet Take 2 tablets by mouth once daily. Compression Stockings Knee High Compression Stockings 20-30 mm, DX: peripheral venous insufficiency. (Patient not taking: Reported on 11/26/2020 ) rifAXIMin (XIFAXAN) 550 mg tab Take 1 tablet by mouth three times daily. (more content not included)... [facility] 03-08-2023 History of Presen t illness Narrative This note was created using Connectureter. Subjective Niurka Conteh is a 42 year old female. 42 year old female with PMH HTN presents for complaints of illness. Acute onset yesterday +headache +fever +sore throat +ear pain +fatigue +body aches Denies SOB or dyspnea Denies abdominal pain Denies N/V/D On Saturday she was seen in ED for UTI, placed on Keflex +tobacco usage. Has used Tylenol Want to make sure I don't have strep The history is provided by the patient. No oracle hyperion consultant was used. URI There is no chest tightness, cough, difficulty breathing, frequent throat clearing, hemoptysis, hoarse voice, shortness of breath, sputum production or wheezing. This is a new problem. The current episode started yesterday. The problem occurs constantly. The problem has been unchanged. Associated symptoms include ear pain, a fever, malaise/fatigue, myalgias, rhinorrhea and a sore throat. Pertinent negatives include no appetite change, chest pain, dyspnea on exertion, ear congestion, headaches, heartburn, nasal congestion, orthopnea, PND, postnasal drip, sneezing, sweats, trouble swallowing or weight loss. Her symptoms are aggravated by nothing. Her symptoms are alleviated by nothing. She reports no improvement on treatment. There are no known risk factors for lung disease. There is no history of asthma, bronchiectasis, bronchitis, COPD, emphysema or pneumonia. 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 small intestine remain LAP PARTIAL COLECTOMY W/ANASTOMOSIS 09/15/13 REMOVAL GALLBLADDER 2003 ALLERGIES Adhesive, Amoxicillin, and Penicillins MEDICATIONS cephALEXin (KEFLEX) 500 mg capsule Take 1 capsule by mouth every 12 hours. enoxaparin (LOVENOX) 100 mg/mL syrg Inject 0.7 mL subcutaneously q 12 HR. ergocalciferol 50,000 unit capsule (VITAMIN D2, DRISDOL) Take 1 capsule by mouth one time a week. magnesium lactate ER (MAGTAB) 84 mg TbER Take one tablet between meals twice daily and take three tablets at bedtime (totaling 5 tablets per day). MULTIVIT-MINERALS/FOLIC ACID (CENTRUM MULTIGUMMIES ORAL) Take 2 tablets by mouth twice daily. Wvvlhxqfsrbhpnq-Jznqogwgd-HA (BROMFED DM) 2-30-10 mg/5 mL syrup Take 10 mL by mouth four times daily as needed. fluticasone (FLONASE) 50 mcg/actuation nasal spray Use 2 Sprays in each nostril once daily. Rinse mouth after use. Food Supplement, Lactose-Free (ENSURE ACTIVE HIGH PROTEIN) liqd Take 237 mL by mouth three times daily with meals. (Patient not taking: Reported on 08/07/2022) vitamin A (AQUASOL A) 10,000 unit capsule Take 1 capsule by mouth twice daily. ergocalciferol 50,000 unit capsule (VITAMIN D2, DRISDOL) Take 1 capsule by mouth two times a week. HYDROcodone-acetaminophen (NORCO) 5-325 mg per tablet Take 1 tablet by mouth every 8 hours as needed for pain. (Patient not taking: Reported on 07/02/2022) oxyCODONE-acetaminophen (PERCOCET) 5-325 mg tablet Take 1 tablet by mouth every 4 hours as needed for pain. (Patient not taking: Reported on 10/20/2021) Vitamin E, dl, acetate, (VITAMIN E) 400 unit capsule Take 1 capsule by mouth twice daily. cyanocobalamin 1,000 mcg/mL Inject 1 mL intramuscularly once every month. Magnesium Oxide-Mg AA Chelate 133 mg tab Take 1 tablet by mouth three times daily before meals. Syringe with Needle, Disp, 3 mL 22 x 1 1/2 Use once monthly for vitamin B12 injections cyanocobalamin (VITAMIN B-12) 1,000 mcg/mL Inject 1 mL intramuscularly once every month. Then resume monthly 1 mL injections for 2 months. Administer at [facility] diphenoxylate-atropine (LOMOTIL) 2.5-0.025 mg per tablet Take 1 tablet by mouth before meals and at bedtime for 30 days. (Patient not taking: Reported on 08/07/2022) vitamin A (AQUASOL A) 10,000 unit capsule Take 1 capsule by mouth twice daily. Vitamin E, dl, acetate, (VITAMIN E) 400 unit capsule Take 1 capsule by mouth once daily. iron polysaccharide complex (FERREX-150) 150 mg iron capsule Take 1 capsule by mouth twice daily. (Patient not taking: Reported on 08/07/2022) pyridoxine, vitamin B6, (VITAMIN B6) 50 mg tablet Take 2 tablets by mouth once daily. Compression Stockings Knee High Compression Stockings 20-30 mm, DX: peripheral venous insufficiency. (Patient not taking: Reported on 11/26/2020 ) rifAXIMin (XIFAXAN) 550 mg tab Take 1 tablet by mouth three times daily. (Patient not taking: Reported on 08/01/2022) calcium carbonate 400 mg (1,000 mg) chew Take 1,000 mg by mouth three times daily. FAMILY HISTORY Problem Relation Age of Onset Hypertension Mother Heart Mother Psychiatry Father bi-polar Diabetes Maternal Grandmother Breast Cancer Maternal Aunt Social History Tobacco Use Smoking status: Every Day Packs/day: 1.50 Years: 13.00 Additional pack years: 0.00 Total pack years: 19.50 Types: Cigarettes Last attempt to quit: 08/16/2013 Years since quittin.5 Smokeless tobacco: Never Substance Use Topics Alcohol use: No Comment: currently does not drink Drug use: No Review of Systems Constitutional: Positive for fever and malaise/fatigue. Negative for appetite change and weight loss. HENT: Positive for congestion, ear pain, rhinorrhea and sore throat. Negative for hoarse voice, postnasal drip, sneezing and trouble swallowing. Eyes: Negative for pain, discharge, redness and itching. Respiratory: Negative for apnea, cough, hemoptysis, sputum production, chest tightness, shortness of breath and wheezing. Cardiovascular: Negative for chest pain, dyspnea on exertion and PND. Gastrointestinal: Negative for abdominal pain, diarrhea, heartburn, nausea and vomiting. Musculoskeletal: Positive for myalgias. Negative for arthralgias and back pain. Skin: Negative for color change, pallor, rash and wound. Allergic/Immunologic: Negative for environmental allergies, food allergies and immunocompromised state. Neurological: Negative for headaches. Hematological: Negative for adenopathy. Does not bruise/bleed easily. Psychiatric/Behavioral: Negative for agitation and behavioral problems. Objective BP 131/87 Pulse (!) 52 Temp 36.6 C (97.9 F) Resp 18 Wt 70.5 kg (155 lb 6.4 oz) LMP 09/14/2022 SpO2 99% BMI 26.67 kg/m Physical Exam Vitals and nursing note reviewed. Constitutional: General: She is not in acute distress. Appearance: Normal appearance. She is normal weight. She is not ill-appearing, toxic-appearing or diaphoretic. HENT: Head: Normocephalic and atraumatic. Right Ear: Ear canal and external ear normal. Left Ear: Ear canal and external ear normal. Nose: Nose normal. No congestion or rhinorrhea. Mouth/Throat: Mouth: Mucous membranes are moist. Pharynx: Posterior oropharyngeal erythema present. No oropharyngeal exudate. Eyes: General: Right eye: No discharge. Left eye: No discharge. Extraocular Movements: Extraocular movements intact. Conjunctiva/sclera: Conjunctivae normal. Pupils: Pupils are equal, round, and reactive to light. Cardiovascular: Rate and Rhythm: Normal rate and regular rhythm. Pulses: Normal pulses. Heart sounds: Normal heart sounds. No murmur heard. No friction rub. Pulmonary: Effort: Pulmonary effort is normal. No respiratory distress. Breath sounds: Normal breath sounds. No stridor. No wheezing, rhonchi or rales. Chest: Chest wall: No tenderness. Abdominal: General: Abdomen is flat. There is no distension. Palpations: Abdomen is soft. There is no mass. Tenderness: There is no abdominal tenderness. There is no right CVA tenderness, left CVA tenderness, guarding or rebound. Hernia: No hernia is present. Musculoskeletal: General: No swelling, tenderness, deformity or signs of injury. Normal range of motion. Cervical back: Normal range of motion and neck supple. No rigidity. Right lower leg: No edema. Left lower leg: No edema. Lymphadenopathy: Cervical: Cervical adenopathy present. Skin: General: Skin is warm and dry. Capillary Refill: Capillary refill takes less than 2 seconds. Coloration: Skin is not jaundiced or pale. Findings: No bruising, erythema, lesion or rash. Neurological: General: No focal deficit present. Mental Status: She is alert and oriented to person, place, and time. Cranial Nerves: No cranial nerve deficit. Sensory: No sensory deficit. Motor: No weakness. Coordination: Coordination normal. Gait: Gait normal. Psychiatric: Mood and Affect: Mood normal. Behavior: Behavior normal. Thought Content: Thought content normal. Judgment: Judgment normal. Assessment and Plan ASSESSMENT/PLAN: 1. Upper respiratory tract infection, unspecified type - ICD9: 465.9, ICD10: J06.9 X 1 day - Discussed viral etiology and rationale for treatment. - Group A strep molecular testing negative - Symptomatic treatment with prn analgesia - Supportive care with fluids and rest - The patient may also use OTC cough and cold meds as needed and nasal saline gtts and suction prn. - Follow up in 3-5 days if symptoms persist or sooner if worsening of symptoms - STREP A MOLECULAR (POC) - COVID & INFLUENZA A/B & RSV NAAT, ROUTINE - COVID NAAT, UPPER RESPIRATORY, ROUTINE - ROUTINE FLU A/B + RSV Inés Flores APRN.ADMINISTRATIVE SUPPORT COORDINATOR documented in this encounter [facility] 01-29-2023 Miscellaneous Notes Returned call to pt, asked if she wanted specific blood work checked, she was unsure, said the usual for her SBS. Upon review, she has not been seen in over [address] Elmore. Asked pt if she needed labs drawn urgently, she replied no. Discussed that since its been so long since she was seen the safest thing to do would be to schedule a visit with Dr Elmore so we can determine what blood work is needed. She gave verbal agreement and will call our office to schedule. Holly Burroughs RD, [facility] Patient requesting labs to be drawn, former Dr. Travis patient. Patient will use a [facility] lab. Patient documented in this encounter [facility] 11-07-2022 Note Patient Outreach (IN [facility]) NIURKA CONTEH ([id number]) 1980 F Date Time Provider Department 11/07/22 STARR BAKER During your visit today, we recorded the following information about you: Allergies As of Date: 11/07/2022 Noted Allergy Reaction ADHESIVE 09/07/2016 2 - Rash 9 - Itching AMOXICILLIN 09/26/2011 4 - Hives PENICILLINS 09/26/2011 4 - Hives Date Reviewed: 10/02/2022 Reviewed by: Tamara Mclaughlin LPN - Fully Assessed Visit Diagnosis:Encounter for screening mammogram for breast cancer [Z12.31] Order(s):[facility] SCREENING [[id number]] Order #: [id number] FUTURE Prescriptions as of 11/12/2022 - Hwfcayqrlvdukuy-Mgiiqoguh-EA (BROMFED DM) 2-30-10 mg/5 mL syrup Take 10 mL by mouth four times daily as needed. - fluticasone (FLONASE) 50 mcg/actuation nasal spray Use 2 Sprays in each nostril once daily. Rinse mouth after use. - Food Supplement, Lactose-Free (ENSURE ACTIVE HIGH PROTEIN) liqd Take 237 mL by mouth three times daily with meals. - enoxaparin (LOVENOX) 100 mg/mL syrg Inject 0.7 mL subcutaneously q 12 HR. - vitamin A (AQUASOL A) 10,000 unit capsule Take 1 capsule by mouth twice daily. - ergocalciferol 50,000 unit capsule (VITAMIN D2, DRISDOL) Take 1 capsule by mouth two times a week. - HYDROcodone-acetaminophen (NORCO) 5-325 mg per tablet Take 1 tablet by mouth every 8 hours as needed for pain. - oxyCODONE-acetaminophen (PERCOCET) 5-325 mg tablet Take 1 tablet by mouth every 4 hours as needed for pain. - Vitamin E, dl, acetate, (VITAMIN E) 400 unit capsule Take 1 capsule by mouth twice daily. - cyanocobalamin 1,000 mcg/mL Inject 1 mL intramuscularly once every month. - Magnesium Oxide-Mg AA Chelate 133 mg tab Take 1 tablet by mouth three times daily before meals. - Syringe with Needle, Disp, 3 mL 22 x 1 1/2 Use once monthly for vitamin B12 injections - cyanocobalamin (VITAMIN B-12) 1,000 mcg/mL Inject 1 mL intramuscularly once every month. Then resume monthly 1 mL injections for 2 months. Administer at [facility] - diphenoxylate-atropine (LOMOTIL) 2.5-0.025 mg per tablet Take 1 tablet by mouth before meals and at bedtime for 30 days. - vitamin A (AQUASOL A) 10,000 unit capsule Take 1 capsule by mouth twice daily. - Vitamin E, dl, acetate, (VITAMIN E) 400 unit capsule Take 1 capsule by mouth once daily. - ergocalciferol 50,000 unit capsule (VITAMIN D2, DRISDOL) Take 1 capsule by mouth one time a week. - iron polysaccharide complex (FERREX-150) 150 mg iron capsule Take 1 capsule by mouth twice daily. - magnesium lactate ER (MAGTAB) 84 mg TbER Take one tablet between meals twice daily and take three tablets at bedtime (totaling 5 tablets per day). - pyridoxine, vitamin B6, (VITAMIN B6) 50 mg tablet Take 2 tablets by mouth once daily. - Compression Stockings Knee High Compression Stockings 20-30 mm, DX: peripheral venous insufficiency. - rifAXIMin (XIFAXAN) 550 mg tab Take 1 tablet by mouth three times daily. - calcium carbonate 400 mg (1,000 mg) chew Take 1,000 mg by mouth three times daily. - MULTIVIT-MINERALS/FOLIC ACID (CENTRUM MULTIGUMMIES ORAL) Take 2 tablets by mouth twice daily. Meds Comments as of 11/21/2017: Probiotic daily, Vitamin E 400 unit daily Problem List As Of Date 11/07/2022 Noted Resolved Abdominal pain, other specified site [R10.9] 01/01/2014 Myalgia and myositis [BYA7179] 01/01/2014 Chest pain [R07.9] 01/11/2014 10/23/2016 ASA CLASS II [1001] 07/20/2014 Short bowel syndrome [K91.2] 01/11/2015 Intestinal malabsorption [K90.9] 01/11/2015 Hypomagnesemia [E83.42] 03/02/2016 SBO (small bowel obstruction) (HCC) [K56.609] 05/25/2016 10/23/2016 Surgery, elective [Z41.9] 08/29/2016 Moderate protein malnutrition (HCC) [E44.0] 09/01/2016 Severe protein-calorie malnutrition (HCC) [E43] 09/09/2016 Protein C deficiency (HCC) [D68.59] 06/12/2017 Protein S deficiency (HCC) [D68.59] 06/12/2017 Hypertension, essential [I10] 01/13/2018 Vitamin D deficiency [E55.9] 10/10/2018 Vitamin B12 deficiency [E53.8] 10/10/2018 Diarrhea [R19.7] 10/10/2018 Hypokalemia [E87.6] 10/10/2018 Encounter Status:Closed by MARC PRODUSER on 11/12/22 [facility] 10-05-2022 Miscellaneous Notes Type of form: Records request from Cricket TERRELL of [facility] Form received via mail When form is completed Form has been forwarded to Physician Desk: Dr. Tolu Tran Ma documented in this encounter [facility] 10-02-2022 Note HNO ID: [id number] Author: CARMEN Sweeney Service: ? Author Type: Physician Track Layer Type: Progress Notes Filed: 10/02/2022 1:12 PM Note Text: This note was created using Comic Replyriter. Subjective Niurka Conteh is a 42 year old female. HPI 42-year-old female presents for sore throat, cough, runny nose x3 days. Patient started getting URI symptoms about 3 days ago. She has been having chills and feeling feverish. She has had a sore throat, cough and runny nose. Denies any chest pain or shortness of breath. She was exposed to her niece that had strep. No vomiting or diarrhea. No other complaints. She did a home COVID test that was negative. 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 small intestine remain LAP PARTIAL COLECTOMY W/ANASTOMOSIS 09/15/13 REMOVAL GALLBLADDER 2003 ALLERGIES Adhesive, Amoxicillin, and Penicillins MEDICATIONS fluticasone (FLONASE) 50 mcg/actuation nasal spray Use 2 Sprays in each nostril once daily. Rinse mouth after use. enoxaparin (LOVENOX) 100 mg/mL syrg Inject 0.7 mL subcutaneously q 12 HR. ergocalciferol 50,000 unit capsule (VITAMIN D2, DRISDOL) Take 1 capsule by mouth one time a week. magnesium lactate ER (MAGTAB) 84 mg TbER Take one tablet between meals twice daily and take three tablets at bedtime (totaling 5 tablets per day). calcium carbonate 400 mg (1,000 mg) chew Take 1,000 mg by mouth three times daily. Suvxizbvhuxhwmr-Toakrmkrr-XS (BROMFED DM) 2-30-10 mg/5 mL syrup Take 10 mL by mouth four times daily as needed. Food Supplement, Lactose-Free (ENSURE ACTIVE HIGH PROTEIN) liqd Take 237 mL by mouth three times daily with meals. (Patient not taking: Reported on 08/07/2022) vitamin A (AQUASOL A) 10,000 unit capsule Take 1 capsule by mouth twice daily. ergocalciferol 50,000 unit capsule (VITAMIN D2, DRISDOL) Take 1 capsule by mouth two times a week. HYDROcodone-acetaminophen (NORCO) 5-325 mg per tablet Take 1 tablet by mouth every 8 hours as needed for pain. (Patient not taking: Reported on 07/02/2022) oxyCODONE-acetaminophen (PERCOCET) 5-325 mg tablet Take 1 tablet by mouth every 4 hours as needed for pain. (Patient not taking: Reported on 10/20/2021) Vitamin E, dl, acetate, (VITAMIN E) 400 unit capsule Take 1 capsule by mouth twice daily. cyanocobalamin 1,000 mcg/mL Inject 1 mL intramuscularly once every month. Magnesium Oxide-Mg AA Chelate 133 mg tab Take 1 tablet by mouth three times daily before meals. Syringe with Needle, Disp, 3 mL 22 x 1 1/2 Use once monthly for vitamin B12 injections cyanocobalamin (VITAMIN B-12) 1,000 mcg/mL Inject 1 mL intramuscularly once every month. Then resume monthly 1 mL injections for 2 months. Administer at [facility] diphenoxylate-atropine (LOMOTIL) 2.5-0.025 mg per tablet Take 1 tablet by mouth before meals and at bedtime for 30 days. (Patient not taking: Reported on 08/07/2022) vitamin A (AQUASOL A) 10,000 unit capsule Take 1 capsule by mouth twice daily. Vitamin E, dl, acetate, (VITAMIN E) 400 unit capsule Take 1 capsule by mouth once daily. iron polysaccharide complex (FERREX-150) 150 mg iron capsule Take 1 capsule by mouth twice daily. (Patient not taking: Reported on 08/07/2022) pyridoxine, vitamin B6, (VITAMIN B6) 50 mg tablet Take 2 tablets by mouth once daily. Compression Stockings Knee High Compression Stockings 20-30 mm, DX: peripheral venous insufficiency. (Patient not taking: Reported on 11/26/2020 ) rifAXIMin (XIFAXAN) 550 mg tab Take 1 tablet by mouth three times daily. (Patient not taking: Reported on 08/01/2022) MULTIVIT-MINERALS/FOLIC ACID (CENTRUM MULTIGUMMIES ORAL) Take 2 tablets by mouth twice daily. FAMILY HISTORY Problem Relation Age of Onset Hypertension Mother Heart Mother Psychiatry Father bi-polar Diabetes Maternal Grandmother Breast Cancer Maternal Aunt Social History Tobacco Use Smoking status: Every Day Packs/day: 1.50 Years: 13.00 Pack years: 19.50 Types: Cigarettes Last attempt to quit: 08/16/2013 Years since quittin.1 Smokeless tobacco: Never Substance Use Topics Alcohol use: No Comment: currently does not drink Drug use: No Review of Systems Constitutional: Positive for chills and fever. HENT: Positive for rhinorrhea and sore throat. Negative for congestion and ear pain. Respiratory: Positive for cough. Negative for shortness of breath. Cardiovascular: Negative for chest pain. Gastrointestinal: Negative for diarrhea and vomiting. Objective BP 124/70 Pulse 84 Temp 37.4 ?C (99.3 ? (more content not included)... [facility] 08-08-2022 Miscellaneous Notes Patient notified.Bianca Yeboah LPN Negative for COVID flu documented in this encounter [facility] 08-07-2022 Note HNO ID: [id number] Author: Ibeth Harrison PA-C Service: ? Author Type: Physician Track Layer Type: Progress Notes Filed: 08/07/2022 8:07 PM Note Text: This note was created using Comic Replyriter. Subjective Niurka Conteh is a 42 year old female. HPI Patient presents with sore throat, cough over the past 2 days. Throat worsened today so she came in for evaluation. No OTC meds used. No fever. Denies sick contacts. Review of Systems Constitutional: Negative. HENT: Positive for congestion, ear pain, rhinorrhea and sore throat. Respiratory: Positive for cough. Negative for chest tightness, shortness of breath and wheezing. Cardiovascular: Negative. Gastrointestinal: Negative. Genitourinary: Negative. Musculoskeletal: Negative. All other systems reviewed and are negative. PAST MEDICAL HISTORY Diagnosis Date Back pain Chest pain 01/11/2014 Depression DVT (deep venous thrombosis) ([facility]) July 2013 Hypertension, essential 01/13/2018 Low blood magnesium 03/02/2016 Protein C deficiency ([facility]) Protein S deficiency ([facility]) S/P cholecystectomy SBO (small bowel obstruction) ([facility]) 05/25/2016 Short bowel syndrome Current Outpatient Medications Medication Sig Dispense Refill enoxaparin (LOVENOX) 100 mg/mL syrg Inject 0.7 mL subcutaneously q 12 HR. 60 Syringe 5 cyanocobalamin 1,000 mcg/mL Inject 1 mL intramuscularly once every month. 3 mL 3 cyanocobalamin (VITAMIN B-12) 1,000 mcg/mL Inject 1 mL intramuscularly once every month. Then resume monthly 1 mL injections for 2 months. Administer at [facility] 3 mL 4 vitamin A (AQUASOL A) 10,000 unit capsule Take 1 capsule by mouth twice daily. 60 capsule 2 Vitamin E, dl, acetate, (VITAMIN E) 400 unit capsule Take 1 capsule by mouth once daily. 30 capsule 2 ergocalciferol 50,000 unit capsule (VITAMIN D2, DRISDOL) Take 1 capsule by mouth one time a week. 4 capsule 2 magnesium lactate ER (MAGTAB) 84 mg TbER Take one tablet between meals twice daily and take three tablets at bedtime (totaling 5 tablets per day). 150 tablet 0 pyridoxine, vitamin B6, (VITAMIN B6) 50 mg tablet Take 2 tablets by mouth once daily. 60 tablet 2 MULTIVIT-MINERALS/FOLIC ACID (CENTRUM MULTIGUMMIES ORAL) Take 2 tablets by mouth twice daily. Ropxjkfcieriojv-Gcqdwxbsk-HB (BROMFED DM) 2-30-10 mg/5 mL syrup Take 10 mL by mouth four times daily as needed. 200 mL 0 fluticasone (FLONASE) 50 mcg/actuation nasal spray Use 2 Sprays in each nostril once daily. Rinse mouth after use. 1 Each 0 predniSONE (DELTASONE) 10 mg tablet Take 4 tabs daily for 3 days, then 2 tabs daily for 3 days,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
== END 2023-06-21 09:55 | disposition home or self-care (01) ==
PROVIDERS: Emergency Provider Emergency Medicine; PCP Family Medicine; Visit Provider Emergency Medicine
DX: K02.9 Dental caries, unspecified (principal); D68.59 Other primary thrombophilia; K91.2 Postsurgical malabsorption, not elsewhere classified; F17.210 Nicotine dependence, cigarettes, uncomplicated; F17.290 Nicotine dependence, other tobacco product, uncomplicated; K08.89 Other specified disorders of teeth and supporting structures
CPT/HCPCS: 99282

== ENCOUNTER → 2023-08-28 | Outpatient (CLI) | payer MEDICAID, SELFPAY ==
[2023-08-31 08:10] LABS: Chlamydia By Nucleic Acid AMP Negative (Negative); Gonococcus By Nucleic Acid AMP Negative (Negative)
[2023-09-04 12:10] LABS: HPV APTIMA, High Risk Positive (Negative)
== END | disposition home or self-care (01) ==
PROVIDERS: PCP Family Medicine; Visit Provider Nurse Practitioner Women's Health
DX: Z12.4 Encounter for screening for malignant neoplasm of cervix (principal); N89.8 Other specified noninflammatory disorders of vagina
CPT/HCPCS: 87070; 87205; 87491; 87591; 87624; 88175; G0145

== ENCOUNTER → 2023-10-07 | Outpatient (CLI) | payer MEDICAID, SELFPAY ==
--- NOTE | 2023-10-07 | IMM_PTH ---
PATIENT: NIURKA ZHU LOC: [facility] U#:[id number] AGE/SX: 43/F ROOM: RE10/07/[address]: Dr. Lainey Hull DO : 1980 BED: DIS: 10/07/2023 SPEC #: [id number] RECD: 10/09/23 13:13 STATUS: WANDA REDaryl #: [id number] PING: 10/07/23 00:[address]: Lainey Hull DEPT: IMMUNOHISTOCHEMISTRY RECD BY: Yung Watson ENTERED: 10/09/23 13:14 SP TYPE: IMMUNO OTHR DR: Dr. José Luis Motley MD Tissues: B - Uterine cervix, NOS C - Uterine cervix, NOS Procedures: p16 (initial) KI-67 (add) P16 (add) KI-67 (initial) PHYSICIAN & INSTITUTION [place] [phone] SPECIMEN INFORMATION: Tissue Source: B- Cervix at 3o'clock biopsy, C- Cervix at 6o'clock biopsy Clinical Info: [facility] Specimen Number: [id number] B,C CPT code: 64539n1,51557y4 METHODOLOGY: Deparaffinized sections of prefer/formalin-fixed tissue or PAP/DQ stained slides are incubated with monoclonal/polyclonal antibodies/oligonucleotide probes. Localization is made via biotin free immunoperoxidase method. Appropriate controls are performed and reacted as expected. Results on target cell population are indicated in the following table: RESULTS: ANTIBODY / CLONE RESULT Block B P16 (E6H4) positive, focal, patchy Ki-67 (30-9) positive, low Block C P16 (E6H4) positive, rare cells, dim Ki-67 (30-9) positive, low These tests were developed and their performance characteristics determined by [facility]. They may not have been cleared or approved by the U.S. Food and Drug Administration. The FDA has determined that such clearance or approval is not necessary. The above immunohistochemical/dualISH markers are ordered and reviewed by the Pathologist. INTERPRETATION: B. Cervix at 3o'clocl, biopsy: Focal HPV change present. C. Cervix at 6o'clock, biopsy: HPV change suspected. AM/mr 10/11/2023
--- NOTE | 2023-10-07 13:45 | CER_PTH ---
PATIENT: NIURKA ZHU LOC: [facility] U#:[id number] AGE/SX: 43/F ROOM: RE10/07/[address]: Dr. Lainey Hull DO : 1980 BED: DIS: 10/07/2023 SPEC #: [id number] RECD: 10/07/23 15:46 STATUS: WANDA CARROLL #: [id number] PING: 10/07/23 13:[address]: Lainey Hull DEPT: SURGICAL PATHOLOGY RECD BY: Luanne Hamm ENTERED: 10/08/23 10:25 SP TYPE: CERV OTHR DR: Dr. José Luis Motley MD Tissues: A - Endocervical B - Uterine cervix, NOS C - Uterine cervix, NOS Procedures: Surgery Specimen Level IV HEADER OPERATION: Colposcopy PRE-OP DIAGNOSIS: LGSIL TISSUE SUBMITTED: A- ECC, B- Cervix 3o'clock, C- Cervix 6o'clock MICROSCOPIC DIAGNOSIS A. Endocervix, curettings (cellblock): Rare strips of benign superficial endocervix. B. Cervix of 3o'clock, biopsy: Focal HPV change suspected. Chronic inflammation. See comment. C. Cervix at 6o'clock, biopsy: Focal HPV change suspected. Immunohistochemistry (RF24-) supports the above diagnosis. AM/mr 10/09/2023 COMMENT B&C. Immunohistochemistry ([id number]) supports the above diagnosis. MICROSCOPIC DESCRIPTION Slides are reviewed. GROSS DESCRIPTION A. Received in fixative is one container labeled with the patient's name and designated Endocervix. The specimen consists of multiple minute fragments of mann tissue measuring in aggregate <0.1 x <0.1 x <0.1cm. The specimen is submitted in its entirety for cellblock preparation. B. Received in fixative is one container labeled with the patient's name and designated 3o'clock. The specimen consists of multiple irregular fragments of light mann soft tissue that in aggregate measure 0.6 x 0.6 x 0.1 cm. The specimen is totally submitted in one cassette. C. Received in fixative is one container labeled with the patient's name and designated 6o'clock. The specimen consists of multiple irregular fragments of light mann soft tissue that in aggregate measure 0.6 x 0.5 x 0.1 cm. The specimen is totally submitted in one cassette. SD/ 10/08/2023 TC:3 CPT:48858e8
== END | disposition home or self-care (01) ==
LOC: LABSPEC 15:52
PROVIDERS: PCP Family Medicine; Referring Provider Obstetrics & Gynecology; Visit Provider Obstetrics & Gynecology
DX: R87.612 Low grade squamous intraepithelial lesion on cytologic smear of cervix (LGSIL) (principal)
CPT/HCPCS: 88305; 88341; 88342

== ENCOUNTER 2024-11-13 14:01 | Emergency (ER) | payer MEDICAID, SELFPAY ==
[2024-11-13 14:02] VITALS: BP 164/80; PULSE 67; RESP 18; TEMP 36.6; O2SAT 100; BMI 25.2
--- NOTE | 2024-11-13 14:25 | ED.VIS.DENTA ---
HPI History of Present Illness Chief Complaint: Dental Informant: patient Onset/Context/Timing Onset: Days (5) Context: Gradual Onset Timing: Continuous Quality: Sharp, stabbing, throbbing Location: Right upper molars Worsened by: Nothing Relieved by: - (Pressure) Associated Symptoms Assocated Symptom - Dental: jaw swelling, face swelling and cold sensitivity; Negative for fever or hot sensitivity Narrative Narrative: Patient presents with some right upper dental pain that has been getting worse over the last 5 days. Patient states she went to an urgent care and was given a prescription for clindamycin. Patient states she has been taking this with some improvement but states over the last couple days her swelling has gotten worse. Patient denies any discharge or drainage. Patient denies any fevers but admits to some subjective chills. Patient denies any difficulty breathing or difficulty swallowing. 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 Blood clotting disorder Home Medications ?Medication ?Instructions ?Recorded ?Last Taken ?Type ergocalciferol (vitamin D2) 1,250 50,000 unit PO MOTUWETH supplement 10/09/14 08/17/21 08:00 History mcg (50,000 unit) capsule calcium carbonate (Calcium 500) 500 mg PO BID #60 tabs 08/22/21 Unknown Rx [id number] 2.25 mg-folic 1 tab PO TID 10/31/21 Unknown History acid 100 [id number] acid tablet magnesium L-lactate 84 mg 252 mg (3 x 84 mg) PO TID 03/31/22 Unknown Rx tablet,extended release SUPPLEMENT #90 tabs enoxaparin 80 mg/0.8 mL 70 mg (0.7 mL) subcut BID #8 mL 10/08/22 Unknown Rx subcutaneous syringe (Lovenox) hydrocodone-acetaminophen 5-325mg 1 tab PO Q6H PRN PRN Pain 3 days 11/13/24 Unknown Rx 5mg-325mg #10 TABLETS sulfamethoxazole 800 1 tab PO BID #14 TABLETS 11/13/24 Unknown Rx mg-trimethoprim 160 mg tablet Allergy/AdvReac Type Severity Reaction Status Date / Time adhesive Allergy Itching Verified 11/13/24 14:02 amoxicillin (Amoxicillin) Allergy Hives Verified 11/13/24 14:02 Penicillins Allergy Hives Verified 11/13/24 14:02 Family History Grandmother Diabetes Heart disease Mother Heart disease Grandfather Lung cancer Liver cancer Brain cancer Surgical History History of removal of ovarian cyst S/P hernia repair STEPS procedure Hx of cholecystectomy Social History Smoking Status: Current every day smoker tobacco type: cigarettes and e-cigarettes alcohol intake: current alcohol intake frequency: holidays/special occasions only substance use type: does not use caffeine: Yes what type of physical activity do you participate in: none seatbelt use: always do you feel safe at home: Yes additional social history: - Lul Patient works with [employer] ROS ED Constitutional Constitutional ED: Reports chills; Denies fever(s) Eyes Eyes: Reports blurry vision; Denies change in vision ENT ENT ED: Reports ear pain; Denies rhinorrhea or sore throat Cardiovascular Cardiovascular: Denies chest pain or palpitations Respiratory/Chest Respiratory/Chest: Denies cough or dyspnea Gastrointestinal Gastrointestinal: Denies nausea or vomiting Genitourinary Genitourinary ED: Denies dysuria or hematuria Musculoskeletal Musculoskeletal: Reports neck pain; Denies back pain Integumentary Denies abscess or rash Neurologic Neurologic: Reports headache(s); Denies weakness Allergic/Immunologic Allergic/Immunologic ED: Denies mouth swelling or urticaria EXAM Physical Exam Const Vital Signs: 11/13/24 14:02 Temperature 97.9 F Temperature Source Oral Pulse Rate 67 Respiratory Rate 18 Blood Pressure 164/80 H Blood Pressure Mean 108 Pulse Ox 100 Oxygen Delivery Method Room Air Positive well nourished and well developed General Appearance ED: well developed and NAD HEENT HEENT Narrative: There are multiple dental caries noted over the right upper premolars and molars. There is some gingival edema around this tooth. There is tenderness to percussion of these teeth. There is no active discharge or drainage. There is no fluctuance or evidence of any abscess. Oropharynx is clear. Airway is patent. Neck is supple. Trachea is midline. There is no JVD. There is no sublingual edema or evidence of Janes's angina. Mouth ED: Yes lips normal and Yes tongue normal Mouth: lips normal and tongue normal Teeth and Gingiva: caries and gingiva abnormal Positive for gingival edema Throat: posterior oropharynx normal Eyes PERRL and EOMs intact bilaterally Neck supple and no JVD General: Negative for anterior neck swelling, tenderness or submandibular swelling Neuro oriented x3, CN's II-XII intact bilaterally, moves all extremities, no focal motor deficits and no sensory deficits noted Sensorium / Orientation: alert Motor Exam: strength 5/5 throughout Psych mental status grossly normal MDM MDM MDM Narrative Medical decision making narrative: Patient was advised these are infected dental caries. Patient was instructed to stop taking the clindamycin. Patient was given a prescription for Bactrim instead. Patient was instructed to follow-up with a dentist in 3 to 5 days. Patient was instructed to return if worse in any way. Patient understood and was agreeable with the plan. All questions were answered. Discharge Plan Triage Chief Complaint: Dental ED Provider: Lul Ma Dx/Rx/DC Orders Clinical Impression: Infected dental caries, Short gut syndrome Instructions: ED Dental Pain, ED Dental Cavity Prescriptions: New sulfamethoxazole-trimethoprim 800-160 mg tablet 1 tab PO BID Qty: 14 0RF hydrocodone-acetaminophen 5-325 mg tablet 1 tab PO Q6H PRN PRN (Reason: Pain) 3 Days Qty: 10 0RF No Action ergocalciferol (vitamin D2) 50,000 UNIT capsule 50,000 unit PO MOTUWETH calcium carbonate [Calcium 500] 500 mg calcium (1,250 mg) tablet,chewable 500 mg PO BID Qty: 60 0RF [id number] 2.25 mg iron- 100 mcg Tablet 1 tab PO TID magnesium L-lactate 84 mg tablet extended release 252 mg PO TID Qty: 90 0RF enoxaparin [Lovenox] 80 mg/0.8 mL syringe 70 mg subcut BID Qty: 8 2RF Primary Care Provider: José Luis Motley Referrals: José Luis Motley MD [Primary Care Provider] - Print Language: Thai Disposition Disposition: Home, Self Care Discharge Date/Time: 11/13/24 14:47
--- NOTE | 2024-11-13 15:53 | CM.ED ---
Social Work SW entered room, introduced self to patient and explained role with hospital. Patient expressed frustration with her dentist and the process of trying to get her teeth fixed. SW offered patient dental resources, patient grateful. No further needs identified at this time. Nica Campa, FOOD SERVICE ASSISTANT, INTAKE SPECIALIST
== END 2024-11-13 14:47 | disposition home or self-care (01) ==
PROVIDERS: Emergency Provider Emergency Medicine; PCP Family Medicine; Visit Provider Emergency Medicine
DX: K02.9 Dental caries, unspecified (principal); K91.2 Postsurgical malabsorption, not elsewhere classified; F17.290 Nicotine dependence, other tobacco product, uncomplicated; F17.210 Nicotine dependence, cigarettes, uncomplicated
CPT/HCPCS: 99282

== ENCOUNTER 2025-01-15 20:22 | Emergency (ER) | payer MEDICAID, SELFPAY ==
[2025-01-15 20:23] VITALS: BP 108/79; PULSE 66; RESP 15; TEMP 36.6; O2SAT 97; BMI 26.4
--- OUTSIDE RECORDS SUMMARY | 2025-01-15 20:51 | XMS RPT_ITS | CCD ---
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 energy malnutrition; Translations: [Moderate protein-calorie malnutrition] Onset: 7 09-01-2016 Chronic Nutritional deficiencies (20 sources) Cobalamin deficiency; Translations: [Deficiency of other specified B group vitamins] Onset: 9 10-10-2018 Episodic Other aftercare (13 sources) Long-term current use of anticoagulant; 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] 05-21-2022 Episodic Other complications of (4 sources) Pain in female pelvis; Translations: [Other specified related conditions, unspecified trimester] 03-27-2023 Episodic Other connective tissue disease (1 source) History of clinical finding in subject; Translations: [Personal history of other diseases of the musculoskeletal system and connective tissue] Episodic Other connective tissue disease (1 source) Pain in left hand; Translations: [Left hand pain] Onset: Episodic Other connective tissue disease (1 source) Pain of left hand; Translations: [Pain in left hand] 06-08-2023 Episodic Other diseases of kidney and ureters (17 sources) Hydronephrosis co-occurrent and due to calculus of kidney and ureter; Translations: [Hydronephrosis with renal and ureteral calculous obstruction] 08-24-2020 Episodic Other female genital disorders (11 sources) Abnormal uterine bleeding; Translations: [Abnormal uterine and vaginal bleeding, unspecified] 07-30-2022 Chronic Other female genital disorders (7 sources) Abnormal uterine and vaginal bleeding, unspecified; Translations: [Unspecified disorders of menstruation and other abnormal bleeding from female genital tract] 07-30-2022 Chronic Other female genital disorders (5 sources) Other specified noninflammatory disorders of vagina; Translations: [Leukorrhea, not specified as infective] 09-11-2022 Episodic Other fractures (15 sources) Closed fracture of sternum; Translations: [Unspecified fracture of sternum, 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 for closed fracture] 11-20-2021 Episodic Other gastrointestinal disorders (20 sources) Intestinal malabsorption; Translations: [Intestinal malabsorption, unspecified] Onset: 5 01-11-2015 Chronic Other gastrointestinal disorders (17 sources) Diarrhea; Translations: [Intestinal malabsorption, unspecified] Chronic Other gastrointestinal disorders (2 sources) Intestinal malabsorption, unspecified; Translations: [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)] Onset: 9 Chronic Other gastrointestinal disorders (18 sources) Constipation; Translations: [Constipation, unspecified] 05-21-2022 Episodic Other gastrointestinal disorders (3 sources) Small bowel bacterial overgrowth syndrome; Translations: [Small intestinal bacterial overgrowth] 06-04-2023 Episodic Other infections; including parasitic (4 sources) Personal history of other infectious and parasitic diseases; Translations: [Personal history of other genital system and obstetric disorders] 09-11-2022 Episodic Other injuries and conditions due to external causes (17 sources) Hematoma; Translations: [Other injury of unspecified body region, 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] 03-20-2021 Episodic Other nervous system disorders (1 source) Other chronic pain; Translations: [Chronic dental pain] Onset: 5 Chronic Other non-traumatic joint disorders (1 source) Pain of right wrist; Translations: [Pain in right wrist] Episodic Other non-traumatic joint disorders (4 sources) Hip pain; Translations: [Pain in right hip] 03-27-2023 Episodic Other nutritional; endocrine; and metabolic disorders (20 sources) Hypomagnesemia; Translations: [Hypomagnesemia] Onset: 6 10-10-2018 Chronic Other nutritional; endocrine; and metabolic disorders (3 sources) Hypomagnesemia; Translations: [Disorders of magnesium metabolism] Onset: 9 Chronic Other nutritional; endocrine; and metabolic disorders (2 sources) Feeding problem; Translations: [Feeding difficulties] Episodic Other screening for suspected conditions (not mental disorders or infectious disease) (20 sources) Patient encounter status; Translations: [Encounter for screening, unspecified] Onset: 7 08-29-2016 Episodic Other skin disorders (17 sources) Facial swelling ; Translations: [Localized swelling, mass and lump, head] 08-02-2021 Episodic Other skin disorders (1 source) Eruption; Translations: [Rash and other nonspecific skin eruption] 10-20-2024 Episodic Other skin disorders (1 source) Rash and other nonspecific skin eruption; Translations: [Rash] Onset: 5 Episodic Other upper respiratory infections (7 sources) Sore throat symptom; Translations: [Acute pharyngitis, unspecified] Onset: 3 Episodic Phlebitis; thrombophlebitis and thromboembolism (15 sources) Thrombophlebitis of superficial vein of left lower limb; Translations: [Phlebitis and thrombophlebitis of superficial vessels of left lower extremity] 11-08-2021 Episodic Septicemia (except in labor) (2 sources) Sepsis; Translations: [Sepsis, unspecified organism] Episodic Spondylosis; intervertebral disc disorders; other back problems (2 sources) Cervical radiculopathy; Translations: [Radiculopathy, cervical region] Episodic Sprains and strains (2 sources) Whiplash injury to neck; Translations: [Sprain of ligaments of cervical spine, 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] Episodic Unclassified (20 sources) ASA CLASS II Onset: 5 07-20-2014 Unclassified (1 source) Feeding difficulties; Translations: [Feeding difficulties] Onset: 5 Urinary tract infections (20 sources) Urinary tract infectious disease; Translations: [Urinary tract infection, site not specified] Onset: 3 Episodic Viral infection (10 sources) Genital herpes simplex; Translations: [Herpesviral infection of urogenital system, unspecified] 08-05-2022 Chronic Past or Other Problems Problem Classification Problem Date Documented Da te Episodic/Chronic Intestinal obstruction without hernia (20 sources) Small bowel obstruction; Translations: [Unspecified intestinal obstruction, unspecified as to partial versus complete obstruction] Onset: 05-25-2016 Resolved: 10-23-2016 10-23-2016 Episodic Nonspecific chest pain (20 sources) Musculoskeletal chest pain; Translations: [Other chest pain] Onset: 01-11-2014 Resolved: 10-23-2016 Episodic Other connective tissue disease (20 sources) Muscle pain; Translations: [Myalgia and myositis] Onset: 01-01-2014 01-01-2014 Episodic Other gastrointestinal disorders (20 sources) Diarrhea; Translations: [Diarrhea, unspecified] Onset: 10-10-2018 10-10-2018 Episodic Other gastrointestinal disorders (2 sources) Diarrhea, unspecified; Translations: [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)] Onset: 10-10-2018 Episodic Unclassified (1 source) Patient encounter status 09-15-2024 Results Test Name Value Interpretation Reference Range Facility [facility] 01-05-2025 CNPN Telephone (RABIA) NIURKA ZHU ([id number]) 1980 F Date Time Provider Department 01/05/25 AB LOMELI During your visit today, we recorded the following information about you: Colelucero BatistaVenecia 01/05/2025 8:52 AM Signed Please review and advise CONSULT TO HEMATOLOGY/ONCOLOGY Status: Needs Scheduling Requested appt date: Authorizing: Vikki Elmore MD in [facility] A100 Referral: [id number] (Authorized) Expires: 12/30/2025 Priority: Routine Diagnosis: Protein C deficiency (HCC) [D68.59] Protein S deficiency (HCC) [D68.59] Kyler Espinosa DO 01/07/2025 6:36 AM Signed Next new with me or Dr. Lomeli. DO Kori Light Naomi 01/07/2025 8:50 AM Signed Spoke w pt and this is scheduled w Dr Espinosa 01/20. Joel Walsh Allergies As of Date: 01/05/2025 Noted Allergy Reaction ADHESIVE 09/07/2016 2 - Rash 9 - Itching AMOXICILLIN 09/26/2011 4 - Hives PENICILLINS 09/26/2011 4 - Hives Date Reviewed: 12/30/2024 Reviewed by: Jinny Stephen - Fully Assessed Reason for Visit: New Patient [172] Prescriptions as of 01/07/2025 - cyanocobalamin (VITAMIN B-12) 1,000 mcg/mL Inject 1 mL intramuscularly one time a week for 30 days, THEN 1 mL once every month. - Needle, Disp, 25 G 25 gauge x 1 ndle Use for B12 injections - ergocalciferol 50,000 unit capsule (VITAMIN D2, DRISDOL) Take 1 capsule by mouth four times a week. - magnesium lactate ER (MAGTAB) 84 mg TbER Take 3 tablets by mouth three times a day. - Vitamin E, dl, acetate, (VITAMIN E) 400 unit capsule Take 1 capsule by mouth once daily. - naproxen (NAPROSYN) 500 mg tablet Take 1 tablet by mouth two times a day with meals. FOR PAIN. TAKE WITH FOOD. - DEKAS PLUS, FOLIC ACID, 200 mcg-1,000 mcg-10 mg cap Take 1 capsule by mouth once daily - potassium chloride ER (KLOR-CON) 20 mEq tablet Take 1 tablet by mouth once daily Meds Comments as of 11/21/2017: Probiotic daily, Vitamin E 400 unit daily Problem List As Of Date 01/05/2025 Noted Resolved Abdominal pain, other specified site [R10.9] 01/01/2014 Myalgia and myositis [[id number]] 01/01/2014 Chest pain [R07.9] 01/11/2014 10/23/2016 ASA CLASS II [1001] 07/20/2014 Short bowel syndrome [K90.829] 01/11/2015 Intestinal malabsorption [K90.9] 01/11/2015 Hypomagnesemia [E83.42] [...] 10/10/2018 Hypokalemia [E87.6] 10/10/2018 Encounter Status:Closed by JOEL WALSH on 01/07/25 Normal [facility] 12-31-2024 CNPN Telephone (GASTA5) NIURKA ZHU ([id number]) 1980 F Date Time Provider Department 12/31/24 CGRT DIETITIAN GASTA5 During your visit today, we recorded the following information about you: Savanah Toro RD 12/31/2024 9:[address] Elmore (post clinic visit) , pt will have labs done, If Magnesium continues to be low will need to set up IV Magnesium at [facility]. Savanah Toro RD, LD, CNSC, CCTD [facility] ; Allergies As of Date: 12/31/2024 Noted Allergy Reaction ADHESIVE 09/07/2016 2 - Rash 9 - Itching AMOXICILLIN 09/26/2011 4 - Hives PENICILLINS 09/26/2011 4 - Hives Date Reviewed: 12/30/2024 Reviewed by: Jinny Stephen - Fully Assessed Reason for Visit: Patient Update [1234] Cmt: Post clinic Prescriptions as of 12/31/2024 - cyanocobalamin (VITAMIN B-12) 1,000 mcg/mL Inject 1 mL intramuscularly once every month. Then resume monthly 1 mL injections for 2 months. Administer at [facility] - Needle, Disp, 25 G 25 gauge x 1 ndle Use for B12 injections - ergocalciferol 50,000 unit capsule (VITAMIN D2, DRISDOL) Take 1 capsule by mouth four times a week. - magnesium lactate ER (MAGTAB) 84 mg TbER Take 3 tablets by mouth three times a day. - Vitamin E, dl, acetate, (VITAMIN E) 400 unit capsule Take 1 capsule by mouth once daily. - naproxen (NAPROSYN) 500 mg tablet Take 1 tablet by mouth two times a day with meals. FOR PAIN. TAKE WITH FOOD. - DEKAS PLUS, FOLIC ACID, 200 mcg-1,000 mcg-10 mg cap Take 1 capsule by mouth once daily - potassium chloride ER (KLOR-CON) 20 mEq tablet Take 1 tablet by mouth once daily Meds Comments as of 11/21/2017: Probiotic daily, Vitamin E 400 unit daily Problem List As Of Date 12/31/2024 Noted Resolved Abdominal pain, other specified site [R10.9] 01/01/2014 Myalgia and myositis [[id number]] 01/01/2014 Chest pain [R07.9] 01/11/2014 10/23/2016 ASA CLASS II [1001] 07/20/2014 Short bowel syndrome [K90.829] 01/11/2015 Intestinal malabsorption [K90.9] 01/11/2015 Hypomagnesemia [E83.42] [...] 10/10/2018 Hypokalemia [E87.6] 10/10/2018 Encounter Status:Closed by SAVANAH TORO on 12/31/24 Normal [facility] 25(OH)D3 Darlin 2024 25-hydroxyvitamin D3 [Mass/Vol] 36.0 ng/mL Normal 31.0-80.0 [facility] Comment on above: Order Comment: Speci men Type: BLOOD SPECIMEN Ordering Facility: [facility] Address: [address] [place] [address] Result Comment: Clas sification of 25 OH Vitamin D status: Deficiency/Insufficiency: < or = 30 ng/ml. Sufficiency/Optimal Levels: 31-80 ng/mL Toxicity: > 100 ng/mL. Test performed by chemiluminescent immunoassay. Performed By: #### 1 989-3 #### [facility] CLIA [id number] [address] [place] [address] [place] CBC panel Auto (Bld)on 12-30 Erythrocyte distribution width (RBC) [Ratio] 13.4 % Normal 11.5-15.0 [facility] Comment on above: Order Comment: Speci men Type: BLOOD SPECIMENOrdering Facility: [facility] Address: [address] [place] [address] Performed By: #### 5 8410-2 ####[facility] [id number] [place] [address] [place] Hematocrit (Bld) [Volume fraction] 40.2 % Normal 36.0-46.0 [facility] Comment on above: Order Comment: Speci men Type: BLOOD SPECIMENOrdering Facility: [facility] Address: [address] [place] [address] Performed By: #### 5 8410-2 ####[facility] [id number] [place] [id number] [place] Hemoglobin (Bld) [Mass/Vol] 13.2 g/dL Normal 11.5-15.5 [facility] Comment on above: Order Comment: Speci men Type: BLOOD SPECIMENOrdering Facility: [facility] Address: [address] [place] [address] Performed By: #### 5 8410-2 ####[facility] [id number] [place] [address] [place] MCH (RBC) [Entitic mass] 30.1 pg Normal 26.0-34.0 [facility] Comment on above: Order Comment: Speci men Type: BLOOD SPECIMENOrdering Facility: [facility] Address: [address] [place] [address] Performed By: #### 5 8410-2 ####[facility] [id number] [place] [address] [place] MCHC (RBC) [Mass/Vol] 32.8 g/dL Normal 30.5-36.0 [facility] Comment on above: Order Comment: Speci men Type: BLOOD SPECIMENOrdering Facility: [facility] Address: [address] [place] [address] Performed By: #### 5 8410-2 ####[facility] [id number] [place] [address] [place] MCV (RBC) [Entitic vol] 91.6 fL Normal 80.0-100.0 [facility] Comment on above: Order Comment: Speci men Type: BLOOD SPECIMENOrdering Facility: [facility] Address: [address] [place] [address] Performed By: #### 5 8410-2 ####[facility] [id number] [place] [address] [place] Nucleated RBC (Bld) [#/Vol] 10*3/uL Normal <0.01 [facility] Comment on above: Order Comment: Speci men Type: BLOOD SPECIMENOrdering Facility: [facility] Address: [address] [place] [address] Performed By: #### 5 8410-2 ####[facility] [id number] [address] [address] [place] Platelet mean volume (Bld) [Entitic vol] 10.0 fL Normal 9.0-12.7 [facility] Comment on above: Order Comment: Speci men Type: BLOOD SPECIMENOrdering Facility: [facility] Address: [address] [place] [address] Performed By: #### 5 8410-2 ####[facility] [id number] [address], [facility] [place] Platelets (Bld) [#/Vol] 231 10*3/uL Normal 150-400 [facility] Comment on above: Order Comment: Speci men Type: BLOOD SPECIMENOrdering Facility: [facility] Address: [address] [place] [address] Performed By: #### 5 8410-2 ####[facility] [id number] [place] [address] [place] RBC (Bld) [#/Vol] 4.39 10*6/uL Normal 3.90-5.20 [facility] Comment on above: Order Comment: Speci men Type: BLOOD SPECIMENOrdering Facility: [facility] Address: [address] [place] [address] Performed By: #### 5 8410-2 ####[facility] [id number] [place] [address] [place] WBC (Bld) [#/Vol] 6.86 10*3/uL Normal 3.70-11.00 [facility] Comment on above: Order Comment: Speci men Type: BLOOD SPECIMENOrdering Facility: [facility] Address: [address] [place] [address] Performed By: #### 5 8410-2 ####[facility]IA [id number] [place] [address] [place] CNCOon 12-30-2024 CNCO Letter Text Normal [facility] CNOVon 12-30-2024 CNOV Office Visit (GGENMN) NIURKA ZHU ([id number]) 1980 F Date Time Provider Department 12/30/24 1:30 PM VIKKI ELMORE GGENMN During your visit today, we recorded the following information about you: Temperature Pulse Blood pressure Weight 99.9 degrees 60/minute 123/81 69.4 kg Height Last Period 1.626 m 12/23/24 Vikki Elmore MD 12/30/2024 3:39 PM Signed Patient was no-show for scheduled visit. 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 Patient has since underwent STEP procedure 07/21/14 resulting in TPN independence; however was unable to maintain adequate electrolytes and nutrition. Underwent second STEP 09/07/16. Current anatomy: 78 cm of jejunum anastomosed to mid-transverse colon, no ICV, + rectum, +anus. She has had issues with SIBO, malabsorption, and continued IV electrolyte replacement. ISSUES AND PLAN: 1. 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 Current anatomy includes 78 cm of jejunum and most of the transverse colon through rectum and anus. Patient experiences chronic diarrhea, with 4-6 watery bowel movements per day, due to malabsorption. - Continue high-salt, starchy diet with adequate protein intake (70-80 grams/day). - Maintain current oral rehydration solutions and spaced meals. - Discussed potential use of Atrantil to manage symptoms of malabsorption. 2. Hypokalemia (E87.6) Recent labs indicate slight improvement in potassium levels, last at 1.4-1.5 mEq/L. - Continue Klor-Con, 1 tablet daily. - Ordered lab tests to monitor electrolyte levels. - Consider IV potassium infusions at [facility] if levels remain low. 3. Hypomagnesemia (E83.42) Persistent low magnesium levels, most recent lab showing 1.2 mEq/L. Current regimen of MagTab 3 tablets TID is insufficient. - Continue MagTab 3 tablets TID. Add MG Plus Protein 1 tab TID (she can't afford more than this and it is not covered by insurance. - Discussed Epsom salt foot soaks for transdermal magnesium absorption. - Ordered lab tests to monitor magnesium levels. - If mag levels continue to be low, will arrange for IV magnesium infusions at [facility]. 4. Vitamin B 12 deficiency (E53.8) Chronic deficiency due to short bowel syndrome. - Continue monthly B12 injections. - Renewed prescription for B12 injections and needles, sent to [facility] in [place]. 5. Vitamin D deficiency (E55.9) Chronic deficiency managed with high-dose supplementation. - Continue Vitamin D supplementation, 4 times a week. - Ordered lab tests to monitor Vitamin D levels. 6. 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 Symptoms include gas, bloating, and greasy stools. - Continue Flagyl as needed for symptom management. - Discussed potential use of Atrantil to prevent recurrence. 7. Protein C deficiency (HCC) (D68.59) Protein S deficiency (HCC) (D68.59) Patient has a history of protein C and S deficiencies, leading to a hypercoagulable state and SMA thrombosis. Patient has been off anticoagulation therapy for 5-6 years. - Referred to hematology at [facility] for evaluation and management of hypercoagulable state. 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 Her current anatomy consists of 78 cm of jejunum with most of the transverse colon through rectum and anus intact, but without an ileocecal valve. Her condition is secondary to a hypercoagulable state from protein C and S deficiency, which led to SMA thrombosis and subtotal enterectomy in 08/2013. She underwent STEP procedures in 07/2014 and 08/2016, which allowed her to wean off TPN, but she continues to struggle with maintaining adequate electrolytes and nutrition. She reports 4-6 bowel movements daily, with the first in the morning being more formed and subsequent stoo (more content not included)... Normal [facility] COPPER BLOODon 12-30-2024 Copper [Mass/Vol] 63 ug/dL Low 80-155 [facility] Comment on above: Order Comment: Speci men Type: BLOOD SPECIMENOrdering Facility: [facility] Address: [address] [place] [address] Result Comment: This test was developed, and its performance characteristics determined by the [facility] Department of Pathology and Laboratory Medicine. It has not been cleared or approved by the FDA. The [facility] Department of Pathology and Laboratory Medicine is regulated under CLIA as qualified to perform high-complexity testing. This test is used for clinical purposes. It should not be regarded as investigational or for research. Performed By: #### 5 763-8, COPPER ####[facility] [id number] [place] [address] [place] Comprehensive metabolic 2000 panelon 12-30-2024 Albumin [Mass/Vol] 4.1 g/dL Normal 3.9-4.9 [facility] Comment on above: Order Comment: Speci men Type: BLOOD SPECIMEN Ordering Facility: [facility] Address: [address] [place] [address] Performed By: #### B 1WB #### [facility] CLIA [id number] [place] [address] [place] ALP [Catalytic activity/Vol] 63 U/L Normal 34-123 [facility] Comment on above: Order Comment: Speci men Type: BLOOD SPECIMEN Ordering Facility: [facility] Address: [address] [place] [address] Performed By: #### B 1WB #### [facility] CLIA [id number] [address] [place] [address] [place] ALT [Catalytic activity/Vol] 23 U/L Normal 7-38 [facility] Comment on above: Order Comment: Speci men Type: BLOOD SPECIMEN Ordering Facility: [facility] Address: [address] [place] [address] Performed By: #### B 1WB #### [facility] CLIA [id number] [address] [place] [address] [place] Anion gap [Moles/Vol] 12 mmol/L Normal 8-15 [facility] Comment on above: Order Comment: Speci men Type: BLOOD SPECIMEN Ordering Facility: [facility] Address: [address] [place] [address] Performed By: #### B 1WB #### [facility] CLIA [id number] [address] [place], [place] [id number] [place] AST [Catalytic activity/Vol] 30 U/L Normal 13-35 [facility] Comment on above: Order Comment: Speci men Type: BLOOD SPECIMEN Ordering Facility: [facility] Address: [address] [place] [address] Performed By: #### B 1WB #### [facility] CLIA [id number] [address] [place] [address] [place] Bilirubin [Mass/Vol] 0.5 mg/dL Normal 0.2-1.3 [facility] Comment on above: Order Comment: Speci men Type: BLOOD SPECIMEN Ordering Facility: [facility] Address: [address] [place] [address] Performed By: #### B 1WB #### [facility] CLIA [id number] [address] [place] [address] [place] Calcium [Mass/Vol] 9.8 mg/dL Normal 8.5-10.2 [facility] Comment on above: Order Comment: Speci men Type: BLOOD SPECIMEN Ordering Facility: [facility] Address: [address] [place] [address] Performed By: #### B 1WB #### [facility] [facility] CLIA [id number] [address] [place] [address] [place] Chloride [Moles/Vol] 103 mmol/L Normal 98-107 [facility] Comment on above: Order Comment: Speci men Type: BLOOD SPECIMEN Ordering Facility: [facility] Address: [address] [place] [address] Performed By: #### B 1WB #### [facility] CLIA [id number] [address] [place] [address] [place] CO2 [Moles/Vol] 26 mmol/L Normal 22-30 [facility] Comment on above: Order Comment: Speci men Type: BLOOD SPECIMEN Ordering Facility: [facility] Address: [address] [place], [place] [address] Performed By: #### B 1WB #### [facility] CLIA [id number] [address] [place] [address] [place] Creatinine [Mass/Vol] 0.64 mg/dL Normal 0.58-0.96 [facility] Comment on above: Order Comment: Speci men Type: BLOOD SPECIMEN Ordering Facility: [facility] Address: [address] [place] [address] Performed By: #### B 1WB #### [facility] CLIA [id number] [address] [place] [address] [place] eGFRcr SerPlBld CKD-EPI 2020 113 mL/min/1.73m??? Normal >=60 [facility] Comment on above: Order Comment: Nazanin pendleton Type: BLOOD SPECIMEN Ordering Facility: [facility] Address: [address] [place] [address] Result Comment: Eve mated Glomerular Filtration Rate (eGFR) is calculated using the 2020 CKD-EPI creatinine equation. This equation utilizes serum creatinine, sex, and age as parameters. The creatinine assay has traceable calibration to isotope dilution-mass spectrometry. Refer to KDIGO guidelines for clinical interpretation. In patients with unstable renal function, e.g. those with acute kidney injury, the eGFR may not accurately reflect actual GFR. Performed By: #### B 1WB #### [facility] CLIA [id number] [address] [place] [address] [place] Glucose [Mass/Vol] 73 mg/dL Low 74-99 [facility] Comment on above: Order Comment: Nazanin pendleton Type: BLOOD SPECIMEN Ordering Facility: [facility] Address: [address] [place] [address] Result Comment: The [place] Diabetes Association (ADA) provides guidance for cutoff values for fasting glucose and random glucose. The ADA defines fasting as no caloric intake for at least 8 hours. Fasting plasma glucose results between 100 to 125 mg/dL indicate increased risk for diabetes (prediabetes). Fasting plasma glucose results greater than or equal to 126 mg/dL meet the criteria for diagnosis of diabetes. In the absence of unequivocal hyperglycemia, results should be confirmed by repeat testing. In a patient with classic symptoms of hyperglycemia or hyperglycemic crisis, random plasma glucose results greater than or equal to 200 mg/dL meet the criteria for diagnosis of diabetes. Reference: Standards of Medical Care in Diabetes 2016, [place] Diabetes Association. Diabetes Care. 2016.39(Suppl 1). Performed By: #### B 1WB #### [facility] CLIA [id number] [address] [place] [address] [place] Potassium [Moles/Vol] 4.2 mmol/L Normal 3.7-5.1 [facility] Comment on above: Order Comment: Speci men Type: BLOOD SPECIMEN Ordering Facility: [facility] Address: [address] [place] [address] Performed By: #### B 1WB #### [facility] CLIA [id number] [address] [place] [address] [place] Protein [Mass/Vol] 6.8 g/dL Normal 6.3-8.0 [facility] Comment on above: Order Comment: Speci men Type: BLOOD SPECIMEN Ordering Facility: [facility] Address: [address] [place] [address] Performed By: #### B 1WB #### [facility] CLIA [id number] [address] [place] [address] [place] Sodium [Moles/Vol] 141 mmol/L Normal 136-144 [facility] Comment on above: Order Comment: Speci men Type: BLOOD SPECIMEN Ordering Facility: [facility] Address: [address] [place] [address] Performed By: #### B 1WB #### [facility] CLIA [id number] [address] [place] [address] [place] Urea nitrogen [Mass/Vol] 7 mg/dL Normal 7-21 [facility] Comment on above: Order Comment: Speci men Type: BLOOD SPECIMEN Ordering Facility: [facility] Address: [address] [place] [address] Performed By: #### B 1WB #### [facility] CLIA [id number] [address] [place] [address] [place] Magnesium SerPl-mCncon 12-30 Magnesium [Mass/Vol] 1.4 mg/dL Low 1.7-2.3 [facility] Comment on above: Order Comment: Speci men Type: BLOOD SPECIMEN Ordering Facility: [facility] Address: [address] [place] [address] Performed By: #### B 1WB #### [facility] CLIA [id number] [address] [place] [address] [place] Methylmalonate SerPl-sCncon 12-30-2024 Methylmalonate [Moles/Vol] 2.90 umol/L High <=0.40 [facility] Comment on above: Order Comment: Speci men Type: BLOOD SPECIMENOrdering Facility: [facility] Address: [address] [place] [address] Result Comment: This test was developed, and its performance characteristics determined by the [facility] Department of Pathology and Laboratory Medicine. It has not been cleared or approved by the FDA. The [facility] Department of Pathology and Laboratory Medicine is regulated under CLIA as qualified to perform high-complexity testing. This test is used for clinical purposes. It should not be regarded as investigational or for research. Performed By: #### 1 3964-2 ####[facility] [id number] [place] [address] [place] Phosphate SerPl-mCncon 12-30 Phosphate [Mass/Vol] 3.3 mg/dL Normal 2.7-4.8 [facility] Comment on above: Order Comment: Speci men Type: BLOOD SPECIMEN Ordering Facility: [facility] Address: [address] [place] [address] Performed By: #### B 1WB #### [facility] CLIA [id number] [address] [place] [address] [place] Vit A SerPl-mCncon Retinol [Mass/Vol] 0.15 mg/L Low 0.30-1.20 [facility] Comment on above: Order Comment: Speci men Type: BLOOD SPECIMENOrdering Facility: [facility] Address: [address] [place] [address] Result Comment: This test was developed, and its performance characteristics determined by the [facility] Department of Pathology and Laboratory Medicine. It has not been cleared or approved by the FDA. The [facility] Department of Pathology and Laboratory Medicine is regulated under CLIA as qualified to perform high-complexity testing. This test is used for clinical purposes. It should not be regarded as investigational or for research. Performed By: #### 2 923-1 ####[facility] [id number] [place] [id number] [place] Vit B12 SerPl-mCncon 025 Cobalamin (Vitamin B12) [Mass/Vol] 176 pg/mL Low 232-1245 [facility] Comment on above: Order Comment: Speci men Type: BLOOD SPECIMEN Ordering Facility: [facility] Address: [address] [place] [address] Performed By: #### B 1WB #### [facility] CLIA [id number] [address] [place] [address] [place] Zinc SerPl-mCncon 12-30-2024 Zinc [Mass/Vol] 71 ug/dL Normal 60-120 [facility] Comment on above: Order Comment: Speci men Type: BLOOD SPECIMENOrdering Facility: [facility] Address: [address] [place] [address] Result Comment: This test was developed, and its performance characteristics determined by the [facility] Department of Pathology and Laboratory Medicine. It has not been cleared or approved by the FDA. The [facility] Department of Pathology and Laboratory Medicine is regulated under CLIA as qualified to perform high-complexity testing. This test is used for clinical purposes. It should not be regarded as investigational or for research. Performed By: #### 5 763-8, COPPER ####[facility] [id number] [place] [address] [place] Emergency Department Summary on 11-13-2024 Emergency Department Summary [facility] Medical Records Department [address] [place] [address] Emergency Department Summary 11/13/24 MR#: [id number] Acct: [id number] Name: NIURKA ZHU Rep #: [id number] : 1980 44 From: Ganesh Ma DO PCP: Dr. Starr Motley MD Status:DEP ER Location: ED HPI History of Present Illness Chief Complaint: Dental Informant: patient Onset/Context/Timing Onset: Days (5) Context: Gradual Onset Timing: Continuous Quality: Sharp, stabbing, throbbing Location: Right upper molars Worsened by: Nothing Relieved by: - (Pressure) Associated Symptoms Assocated Symptom - Dental: jaw swelling, face swelling and cold sensitivity; Negative for fever or hot sensitivity Narrative Narrative: Patient presents with some right upper dental pain that has been getting worse over the last 5 days. Patient states she went to an urgent care and was given a prescription for clindamycin. Patient states she has been taking this with some improvement but states over the last couple days her swelling has gotten worse. Patient denies any discharge or drainage. Patient denies any fevers but admits to some subjective chills. Patient denies any difficulty breathing or difficulty swallowing. [facility] Medical History Anxiety Smoker Kidney stone Short gut syndrome Protein S deficiency Protein C deficiency Blood clotting disorder Home Medications ???Medication ???Instructions ???Recorded ???Last Taken ???Type ergocalciferol (vitamin D2) 1,250 50,000 unit PO MOTUWETH supplemen t 10/09/14 08/17/21 08:00 History mcg (50,000 unit) capsule calcium carbonate (Calcium 500) 500 mg PO BID #60 tabs 08/22/21 Un known Rx nizmkyul-lun-sfpv 2.25 mg-folic 1 tab PO TID 10/31/21 Unknown Hist ory acid 100 ikm-[id number]-[id number] acid tablet magnesium L-lactate 84 mg 252 mg (3 x 84 mg) PO TID 03/31/22 Unknown Rx tablet,extended release SUPPLEMENT #90 tabs enoxaparin 80 mg/0.8 mL 70 mg (0.7 mL) subcut BID #8 mL Unknown Rx subcutaneous syringe (Lovenox) hydrocodone-acetamin ophen 5-325mg 1 tab PO Q6H PRN PRN Pain 3 days 11/13/24 Unknown Rx 5mg-325mg #10 TABLETS sulfamethoxazole 800 1 tab PO BID #14 TABLETS 11/13/24 Unknown Rx mg-trimethoprim 160 mg tablet Allergy/AdvReac Type Severity Reaction Status Date / Time adhesive Allergy Itching Verified 11/13/24 14:02 amoxicillin (Amoxicillin) Allergy Hives Verified 11/13/24 14:02 Penicillins Allergy Hives Verified 11/13/24 14:02 Family History Grandmother Diabetes Heart disease Mother Heart disease Grandfather Lung cancer Liver cancer Brain cancer Surgical History History of removal of ovarian cyst S/P hernia repair STEPS procedure Hx of cholecystectomy Social History Smoking Status: Current every day smoker tobacco type: cigarettes and e-cigarettes alcohol intake: current alcohol intake frequency: holidays/special occasions only substance use type: does not use caffeine: Yes what type of physical activity do you participate in: none seatbelt use: always do you feel safe at home: Yes additional social history: - Ganesh Patient works with [employer] ED Constitutional Constitutional ED: Reports chills; Denies fever(s) Eyes Eyes: Reports blurry vision; Denies change in vision ENT ENT ED: Reports ear pain; Denies rhinorrhea or sore throat Cardiovascular Cardiovascular: Denies chest pain or palpitations Respiratory/Chest Respiratory/Chest: Denies cough or dyspnea Gastrointestinal Gastrointestinal: Denies nausea or vomiting Genitourinary Genitourinary ED: Denies dysuria or hematuria Musculoskeletal Musculoskeletal: Reports neck pain; Denies back pain Integumentary Denies abscess or rash Neurologic Neurologic: Reports headache(s); Denies weakness Allergic/Immunologic Allergic/Immunologic ED: Denies mouth swelling or urticaria EXAM Physical Exam Const Vital Signs: 11/13/24 14:02 Temperature 97.9 F Temperature Source Oral Pulse Rate 67 Respiratory Rate 18 Blood Pressure 164/80 H Blood Pressure Mean 108 Pulse Ox 100 Oxygen Delivery Method Room Air Positive well nourished and well developed General Appearance ED: well developed and NAD HEENT HEENT Narrative: There are multiple dental caries noted over the right upper premolars and molars. There is some gingival edema around this tooth. There is tenderness to percussion of these teeth. There is no active discharge or drainage. There is no fluctuance or evidence of any abscess. Oropharynx is clear. Airway is patent. Neck is (more content not included)... Normal [facility] CNOVon 11-09-2024 CNOV Office Visit (UCWSTR) NIURKA ZHU ([id number]) 1980 F Date Time Provider Department 11/09/24 1:00 PM MAYANK ARIZMENDI WS During your visit today, we recorded the following information about you: Temperature Pulse Respiration Blood pressure 99.1 degrees 90/minute 20/minute 120/76 Weight 69.8 kg Mayank Arizmendi APRN.CNP 11/09/2024 12:46 PM [address] [facility] [address] [place], [place] [address] Emergency Department Diagnosis: Assessment TOOTHACHE: Your exam shows that your toothache is probably due to tooth decay and infection. Poor dental care is the main cause of this problem. Swelling and redness around a painful tooth often means you have a dental abscess. Pain medicine and antibiotics can help reduce symptoms, but you will need to see a dentist within the next few days to have your problem properly treated. Fillings or root canal work may be needed to save your tooth. If the problem is severe, your tooth may need to be pulled. Please return here right away if you have a fever over 101F, can?t swallow, or develop severe swelling. Mayank Arizmendi APRN.CNP 11/09/2024 12:59 PM Signed [facility] NOTE Subjective Niurka Zhu is a 44 year old year old who presents to [facility] care today with complaint of upper Right tooth pain x 2 years that waxes and wanes. She was told by her insurance company they are unable to allow the tooth to be pulled and further dental work has been denied per Niurka. Denies headaches, fever, sore throat, cough, shortness of breath, chest pains, Nausea, vomiting, changes in bowel or bladder or skin rashes. Taking Tylenol and Ibuprofen without relief. Aside from symptoms as described above, patient has no other complaints at this time. HPI: see above Review of Systems Constitutional: Negative for chills, fatigue and fever. HENT: Positive for dental problem and facial swelling (Right side of face x 24 hours). Negative for congestion, ear pain, postnasal drip, sinus pressure, sore throat, trouble swallowing and voice change. Respiratory: Negative for cough, shortness of breath and wheezing. Cardiovascular: Negative for chest pain, palpitations and leg swelling. Gastrointestinal: Negative for diarrhea, nausea and vomiting. Musculoskeletal: Negative for myalgias and neck pain. Neurological: Negative for headaches. Hematological: Negative for adenopathy. ALLERGIES Allergen Reactions Adhesive Rash, Itching Amoxicillin Hives Penicillins Hives Current Outpatient Medications on File Prior to Visit Medication Sig ergocalciferol 50,000 unit capsule (VITAMIN D2, DRISDOL) Take 1 capsule by mouth one time a week. DEKAS PLUS, FOLIC ACID, 200 mcg-1,000 mcg-10 mg cap Take 1 capsule by mouth once daily potassium chloride ER (KLOR-CON) 20 mEq tablet Take 1 tablet by mouth once daily cyanocobalamin (VITAMIN B-12) 1,000 mcg/mL Inject 1 mL intramuscularly once every month. Then resume monthly 1 mL injections for 2 months. Administer at [facility] Vitamin E, dl, acetate, (VITAMIN E) 400 unit capsule Take 1 capsule by mouth once daily. No current facility-administere d medications on file prior to visit. 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 Intestinal Malabsorption (Hcc) Hypomagnesemia Surgery, Elective Moderate Protein Malnutrition (Hcc) Severe Protein-Calorie Malnutrition (Hcc) Protein C Deficiency (Hcc) Protein S Deficiency (Hcc) Hypertension, Essential Vitamin D Deficiency Vitamin B12 Deficiency Diarrhea Hypokalemia Social History Tobacco Use Smoking status: Former Current packs/day: 0.00 Average packs/day: 1.5 packs/day for 13.0 years (19.5 ttl pk-yrs) Types: Cigarettes Start date: 08/16/2000 Quit date: 08/16/2013 Years since quittin.2 Smokeless tobacco: Never Vaping Use Vaping status: current everyday user Substances: Nicotine Substance Use Topics Alcohol use: No Comment: currently does not drink Drug use: Yes Types: Marijuana Objective BP 120/76 Pulse 90 Temp 37.3 ?C (99.1 ?F) Resp 20 Wt 69.8 kg (153 lb 14.1 oz) LMP 10/20/2024 (Exact Date) SpO2 98% BMI 26.41 kg/m? Physical Exam Vitals reviewed. Constitutional: General: She is not in acute distress. Appearance: Normal appearance. She is not ill-appearing or toxic-appearing. HENT: Head: Normocephalic and atraumatic. Right Ear: Tympanic membrane, ear canal and external ear normal. Left Ear: Tympanic membrane, ear canal and external ear normal. Nose: Nose normal. Mouth/Throat: Lips: [place]. Mouth: Mucous membranes are moist. Dentition: Abnormal dentition. Dental tenderness, gingival swelling and dental caries present. No dental abscesses. Tongue: No lesions. Palate: No mass. Ph (more content not included)... Normal [facility] CNOVon 10-20-2024 CNOV Office Visit (UCWSTR) NIURKA ZHU ([id number]) 1980 F Date Time Provider Department 10/20/24 7:30 PM ISAIAS ROE [facility] During your visit today, we recorded the following information about you: Temperature Pulse Respiration Blood pressure 97.9 degrees 68/minute 18/minute 108/74 Weight Last Period 70 kg 10/20/24 Isaias Roe PA 10/20/2024 7:43 PM Signed [facility] Subjective Niurka Zhu is a 44 year old female. Patient presents with: Derm Problem: Possible poison Shannan, x 2 days HPI Recurrent Rash: - Rash on the left leg, initially appearing last summer. - Recurrent episodes, with the most recent onset 2-3 days ago. - Describes the rash as both painful and pruritic. - Denies recent outdoor exposure or known triggers. - Has applied calamine lotion for symptom relief. Review of Systems Skin: (+) painful left leg rash, (+) pruritus left leg Objective BP 108/74 Pulse 68 Temp 36.6 ?C (97.9 ?F) Resp 18 Wt 70 kg (154 lb 5.2 oz) LMP 10/20/2024 (Exact Date) SpO2 98% BMI 26.49 kg/m? Physical Exam Vitals and nursing note reviewed. Constitutional: General: She is not in acute distress. Appearance: Normal appearance. She is not toxic-appearing. Skin: Findings: Rash present. Comments: Erythematous raised rash noted on left thigh and left lower leg. No drainage, fluctuance or abscess. Some scarring noted around the area from prior rash. No lymphatic streaking Neurological: Mental Status: She is alert. General: No acute distress. Skin: Erythematous patches on left leg. {1. Rash (R21) - Recurrent pruritic and painful rash on the left leg, initially appearing last summer, with multiple episodes of resolution and recurrence. - Exam reveals multiple areas of irritation on the left leg. - Prescribed topical steroid cream to be applied BID for 1-2 weeks. - Referred to [facility] for further evaluation due to recurrent nature of the rash. - Prescription sent to [facility]. Recording using [email or web address] software for draft documentation of the visit was discussed with the patient/authorized corporate sales representative; all questions welcomed and answered. Patient/authorized corporate sales representative agreed to proceed History and Record Review External record(s) reviewed: prior outpatient record. Differential Diagnoses - Rash is more likely for the following reason(s): suggested by HANDP - Cellulitis is less likely for the following reason(s): HANDP not suggestive - Shingles is less likely for the following reason(s): HANDP not suggestive Disposition The patient was discharged. Procedures Allergies As of Date: 10/20/2024 Noted Allergy Reaction ADHESIVE 09/07/2016 2 - Rash 9 - Itching AMOXICILLIN 09/26/2011 4 - Hives PENICILLINS 09/26/2011 4 - Hives Date Reviewed: 10/20/2024 Reviewed by: Flores Blackmon LPN - Fully Assessed Reason for Visit: Derm Problem [33] Cmt: Possible poison Shannan, x 2 days Primary Visit Diagnosis:Rash [R21] Order(s):triamcinolo ne acetonide (KENALOG) 0.1 % creamApply 1 application to affected area two times a day for 7 days. Apply to affected area. Use sparingly.Disp: 15 gRfl: 0 Prescriptions as of 10/20/2024 - triamcinolone acetonide (KENALOG) 0.1 % cream Apply 1 application to affected area two times a day for 7 days. Apply to affected area. Use sparingly. - magnesium lactate ER (MAGTAB) 84 mg TbER Take 3 tablets by mouth two times a day. - ergocalciferol 50,000 unit capsule (VITAMIN D2, DRISDOL) Take 1 capsule by mouth one time a week. - DEKAS PLUS, FOLIC ACID, 200 mcg-1,000 mcg-10 mg cap Take 1 capsule by mouth once daily - potassium chloride ER (KLOR-CON) 20 mEq tablet Take 1 tablet by mouth once daily - metroNIDAZOLE (FLAGYL) 250 mg tablet Take 1 tablet by mouth three times a day. Take for one week every 1-2 months for SIBO - pslqll-cvtmipfr-pqve ase (ZENPEP) 25,000-79,000- 105,000 unit delayed release capsule Take 2 with meals and 1 with snacks - cyanocobalamin (VITAMIN B-12) 1,000 mcg/mL Inject 1 mL intramuscularly once every month. Then resume monthly 1 mL injections for 2 months. Administer at [facility] - Vitamin E, dl, acetate, (VITAMIN E) 400 unit capsule Take 1 capsule by mouth once daily. Meds Comments as of 11/21/2017: Probiotic daily, Vitamin E 400 unit daily Problem List As Of Date 10/20/2024 Noted Resolved Abdominal pain, other specified site [R10.9] 01/01/2014 Myalgia and myositis [LYO8587] 01/01/2014 Chest pain [R07.9] 01/11/2014 10/23/2016 ASA CLASS II [1001] 07/20/2014 Short bowel syndrome [K90.829] 01/11/2015 Intestinal malabsorption [K90.9] 01/11/2015 Hypomagnesemia [E83.42] 03/02/2016 SBO (small bowel obstruction) (HCC) [K56.609] 05/25/2016 10/23/2016 Surgery, elective [Z41.9] 08/29/2016 Moderate protein malnutrition (HCC) [E44.0] 09/01/2016 Severe (more content not included)... Normal [facility] 10-13-2024 CNPN Telephone (GASTA5) MARKO,NIURKA Rod ([id number]) 1980 F Date Time Provider Department 10/13/24 CGRT DIETITIAN GASTA5 During your visit today, we recorded the following information about you: Nicole Ling 10/13/2024 2:14 PM Signed Patient: MARKO, NIURKA Rod ([id number]) Latest Ref Rng 10/09/2024 Glucose 74 - 99 mg/dL 92 BUN 7 - 21 mg/dL 9 Creatinine 0.58 - 0.96 mg/dL 0.57 (L) Sodium 136 - 144 mmol/L 138 Potassium 3.7 - 5.1 mmol/L 3.8 Chloride 98 - 107 mmol/L 103 CO2 22 - 30 mmol/L 23 Anion Gap 8 - 15 mmol/L 12 Calcium 8.5 - 10.2 mg/dL 9.5 eGFR >=60 mL/min/1.73m? 116 Vitamin D 25 Hydroxy 31.0 - 80.0 ng/mL 46.6 Magnesium 1.7 - 2.3 mg/dL 1.2 (L) In process: Vit E A, Gus Aggarwal RD 10/13/2024 4:25 PM Signed Results so far from 10/09 lab draw reviewed - K+ now wnl, Mg remains low and and down from 1.3 to 1.2. When our office discussed results with pt in July she was transitioned from Mag Tab (9 tabs/d) to MgPlusPro (9 tabs/d) and start oral K+. Vit D increased from 10 to 47 over 3 months, will need to ensure pt did not take DIANN prior to lab draw. Attempted to reach pt to assess for ssx of low Mg, left VM to call office back. Note - our office has had difficulty establishing communication previously. Will either await return call or attempt again when remaining results come in. Holly Burroughs, RD, [facility] Nicole Ling 10/15/2024 2:14 PM Signed Patient: NIURKA ZHU ([id number]) Latest Ref Rng 10/09/2024 Vitamin E-alpha 6.0 - 23.0 mg/L 8.1 Vitamin E-gamma 0.3 - 3.2 mg/L 0.8 Vitamin A 0.30 - 1.20 mg/L 0.24 (L) Copper 80 - 155 ug/dL 75 (L) Savanah Toro RD 10/22/2024 12:31 PM Signed Vitamin A and Copper were low. Vitamin A remains essentially the same as last year, but slightly improved and copper has improved as well, although remains low (will send [employer] message to patient) Mag++ already addressed by Dr. Elmore (note PA in process for magnesium). Plan: - Continue DEKAs essential daily - Continue Vitamin D2 50,000 units 3x per week - Continue Copper Gluconate 2 mg 1 capsule daily Next clinic visit is on 12/2024--will need to determine when to repeat blood work Savanah Toro RD, LD, [facility], [facility] ; Allergies As of Date: 10/13/2024 Noted Allergy Reaction ADHESIVE 09/07/2016 2 - Rash 9 - Itching AMOXICILLIN 09/26/2011 4 - Hives PENICILLINS 09/26/2011 4 - Hives Date Reviewed: 08/14/2024 Reviewed by: Kota Acuña APRN.DIRECTOR OF GROUP SALES - Fully Assessed Reason for Visit: Results [95] Prescriptions as of 10/22/2024 - triamcinolone acetonide (KENALOG) 0.1 % cream Apply 1 application to affected area two times a day for 7 days. Apply to affected area. Use sparingly. - magnesium lactate ER (MAGTAB) 84 mg TbER Take 3 tablets by mouth two times a day. - ergocalciferol 50,000 unit capsule (VITAMIN D2, DRISDOL) Take 1 capsule by mouth one time a week. - DEKAS PLUS, FOLIC ACID, 200 mcg-1,000 mcg-10 mg cap Take 1 capsule by mouth once daily - potassium chloride ER (KLOR-CON) 20 mEq tablet Take 1 tablet by mouth once daily - metroNIDAZOLE (FLAGYL) 250 mg tablet Take 1 tablet by mouth three times a day. Take for one week every 1-2 months for SIBO - frczkt-bptaqwho-uika ase (ZENPEP) 25,000-79,000- 105,000 unit delayed release capsule Take 2 with meals and 1 with snacks - cyanocobalamin (VITAMIN B-12) 1,000 mcg/mL Inject 1 mL intramuscularly once every month. Then resume monthly 1 mL injections for 2 months. Administer at [facility] - Vitamin E, dl, acetate, (VITAMIN E) 400 unit capsule Take 1 capsule by mouth once daily. Meds Comments as of 11/21/2017: Probiotic daily, Vitamin E 400 unit daily Problem List As Of Date 10/13/2024 Noted Resolved Abdominal pain, other specified site [R10.9] 01/01/2014 Myalgia and myositis [OEQ2601] 01/01/2014 Chest pain [R07.9] 01/11/2014 10/23/2016 ASA CLASS II [1001] 07/20/2014 Short bowel syndrome [K90.829] 01/11/2015 Intestinal malabsorption [K90.9] 01/11/2015 Hypomagnesemia [E83.42] [...] 10/10/2018 Hypokalemia [E87.6] 10/10/2018 Encounter Status:Closed by SAVANAH TORO on 10/22/24 Normal [facility] 25(OH)D3 SerPl-mCncon 2024 25-hydroxyvitamin D3 [Mass/Vol] 46.6 ng/mL Normal 31.0-80.0 [facility] Comment on above: Order Comment: Speci men Type: BLOOD SPECIMENOrdering Facility: [facility] Address: [address] [place] [address] Result Comment: Clas sification of 25 OH Vitamin D status: Deficiency/Insufficiency: < or = 30 ng/ml. Sufficiency/Optimal Levels: 31-80 ng/mL Toxicity: > 100 ng/mL. Test performed by chemiluminescent immunoassay. Performed By: #### 1 989-3 ####[facility] LABIA [id number] [place] [address] [place] A-Tocopherol Vit E SerPl-mCn con 10-09-2024 Alpha tocopherol [Mass/Vol] 8.1 mg/L Normal 6.0-23.0 [facility] Comment on above: Order Comment: Speci men Type: BLOOD SPECIMENOrdering Facility: [facility] Address: [address] [place] [address] Performed By: #### 1 823-4, 2923-1 ####[facility] [id number] [place] [address] [place] Alpha tocopherol [Mass/Vol]o n 10-09-2024 Beta+gamma tocopherol [Mass/Vol] 0.8 mg/L Normal 0.3-3.2 [facility] Comment on above: Order Comment: Speci men Type: BLOOD SPECIMENOrdering Facility: [facility] Address: [address] [place] [address] Result Comment: This test was developed, and its performance characteristics determined by the [facility] Department of Pathology and Laboratory Medicine. It has not been cleared or approved by the FDA. The [facility] Department of Pathology and Laboratory Medicine is regulated under CLIA as qualified to perform high-complexity testing. This test is used for clinical purposes. It should not be regarded as investigational or for research. Performed By: #### 1 823-4, 2923-1 ####[facility] LABCLIA [id number] [place] [address] [place] Basic metabolic 2000 panelon 10-09-2024 Anion gap [Moles/Vol] 12 mmol/L Normal 8-15 [facility] Comment on above: Order Comment: Speci men Type: BLOOD SPECIMENOrdering Facility: [facility] Address: [address] [place] [address] Performed By: #### 1 9123-9, 89320-0 ####[facility] [id number] [place] [address] [place] Calcium [Mass/Vol] 9.5 mg/dL Normal 8.5-10.2 [facility] Comment on above: Order Comment: Speci men Type: BLOOD SPECIMENOrdering Facility: [facility] Address: [address] [place] [address] Performed By: #### 1 9123-9, 55624-1 ####[facility] [id number] [place] [address] [place] Chloride [Moles/Vol] 103 mmol/L Normal 98-107 [facility] Comment on above: Order Comment: Speci men Type: BLOOD SPECIMENOrdering Facility: [facility] Address: [address] [place] [address] Performed By: #### 1 9123-9, 83935-2 ####[facility] MILLWNCLIA [id number] [place] [address] [place] CO2 [Moles/Vol] 23 mmol/L Normal 22-30 [facility] Comment on above: Order Comment: Speci men Type: BLOOD SPECIMENOrdering Facility: [facility] Address: [address] [place] [address] Performed By: #### 1 9123-9, 88391-0 ####[facility] KORTNEYWNCLIA [id number] [place] [address] [place] Creatinine [Mass/Vol] 0.57 mg/dL Low 0.58-0.96 [facility] Comment on above: Order Comment: Speci men Type: BLOOD SPECIMENOrdering Facility: [facility] Address: [address] [place] [address] Performed By: #### 1 9123-9, 95946-8 ####[facility] [id number] [place] [address] [place] Creatinine and Glomerular filtration rate.predicted panel (S/P/Bld) 116 mL/min/1.73m??? Normal >=60 [facility] Comment on above: Order Comment: Speci men Type: BLOOD SPECIMENOrdering Facility: [facility] Address: [address] [place] [address] Result Comment: Eve mated Glomerular Filtration Rate (eGFR) is calculated using the 2020 CKD-EPI creatinine equation. This equation utilizes serum creatinine, sex, and age as parameters. The creatinine assay has traceable calibration to isotope dilution-mass spectrometry. Refer to KDIGO guidelines for clinical interpretation. In patients with unstable renal function, e.g. those with acute kidney injury, the eGFR may not accurately reflect actual GFR. Performed By: #### 1 9123-9, 09790-9 ####[facility] [id number] [place] [address] [place] Glucose [Mass/Vol] 92 mg/dL Normal 74-99 [facility] Comment on above: Order Comment: Speci men Type: BLOOD SPECIMENOrdering Facility: [facility] Address: [address] [place] [address] Result Comment: The [place] Diabetes Association (ADA) provides guidance for cutoff values for fasting glucose and random glucose. The ADA defines fasting as no caloric intake for at least 8 hours. Fasting plasma glucose results between 100 to 125 mg/dL indicate increased risk for diabetes (prediabetes). Fasting plasma glucose results greater than or equal to 126 mg/dL meet the criteria for diagnosis of diabetes. In the absence of unequivocal hyperglycemia, results should be confirmed by repeat testing. In a patient with classic symptoms of hyperglycemia or hyperglycemic crisis, random plasma glucose results greater than or equal to 200 mg/dL meet the criteria for diagnosis of diabetes. Reference: Standards of Medical Care in Diabetes 2016, [place] Diabetes Association. Diabetes Care. 2016.39(Suppl 1). Performed By: #### 1 9123-9, 80737-7 ####[facility] [id number] [place] [address] [place] Potassium [Moles/Vol] 3.8 mmol/L Normal 3.7-5.1 [facility] Comment on above: Order Comment: Speci men Type: BLOOD SPECIMENOrdering Facility: [facility] Address: [address] [place] [address] Performed By: #### 1 9123-9, 04353-2 ####[facility] [id number] [place] [address] [place] Sodium [Moles/Vol] 138 mmol/L Normal 136-144 [facility] Comment on above: Order Comment: Speci men Type: BLOOD SPECIMENOrdering Facility: [facility] Address: [address] [place] [address] Performed By: #### 1 9123-9, 61266-1 ####[facility] [id number] [place] [address] [place] Urea nitrogen [Mass/Vol] 9 mg/dL Normal 7-21 [facility] Comment on above: Order Comment: Speci men Type: BLOOD SPECIMENOrdering Facility: [facility] Address: [address] [place] [address] Performed By: #### 1 9123-9, 71383-3 ####[facility] [id number] [place] [address] [place] COPPER BLOODon 10-09-2024 Copper [Mass/Vol] 75 ug/dL Low 80-155 [facility] Comment on above: Order Comment: Speci men Type: BLOOD SPECIMEN [facility]ing Facility: [facility] Address: [address] [place] [address] Result Comment: This test was developed, and its performance characteristics determined by the [facility] Department of Pathology and Laboratory Medicine. It has not been cleared or approved by the FDA. The [facility] Department of Pathology and Laboratory Medicine is regulated under CLIA as qualified to perform high-complexity testing. This test is used for clinical purposes. It should not be regarded as investigational or for research. Performed By: #### B 1WB #### [facility] LAB CLIA [id number] [address] [place] [address] [place] Magnesium SerPl-mCncon 10-09 Magnesium [Mass/Vol] 1.2 mg/dL Low 1.7-2.3 [facility] Comment on above: Order Comment: Speci men Type: BLOOD SPECIMENOrdering Facility: [facility] Address: [address] [place] [address] Performed By: #### 1 9123-9, 60235-1 ####[facility] [id number] [place] [address] [place] Vit A SerPl-mCncon Retinol [Mass/Vol] 0.24 mg/L Low 0.30-1.20 [facility] Comment on above: Order Comment: Speci men Type: BLOOD SPECIMENOrdering Facility: [facility] Address: [address] [place] [address] Result Comment: This test was developed, and its performance characteristics determined by the [facility] Department of Pathology and Laboratory Medicine. It has not been cleared or approved by the FDA. The [facility] Department of Pathology and Laboratory Medicine is regulated under CLIA as qualified to perform high-complexity testing. This test is used for clinical purposes. It should not be regarded as investigational or for research. Performed By: #### 1 823-4, 2923-1 ####[facility] LABCLIA [id number] [address] OF [facility] CNOVon 08-14-2024 CNOV Office Visit (UCWSTR) NIURKA ZHU ([id number]) 1980 F Date Time Provider Department 08/14/24 11:45 AM KOTA ACUÑA [facility] During your visit today, we recorded the following information about you: Temperature Pulse Respiration Blood pressure 97.8 degrees 68/minute 18/minute 156/91 Weight Last Period 70 kg 07/30/24 Kota Acuña, CAROL.DIRECTOR OF GROUP SALES 08/14/2024 12:19 PM Signed Subjective HPI Nontoxic-appearing 44-year-old female presents urgent care chief complaint possible dental infection. Duration of symptoms 3 days. Associated symptoms redness swelling upper gum. History of dental infections is similar. OTC medications none. No difficulty swallowing his secretions decreased range of motion neck trismus elevation of floor of mouth. Additionally, complaint of right shoulder and neck pain. States she threw a piece of firewood and felt something pull in her neck. Has had pain since. Has been using Tylenol ibuprofen this is helped some. No traumatic injuries. No weakness. No numbness or tingling. No headache visual issues. Past medical history prescription medications allergies reviewed. No fevers .Patient presents with: Dental Problem: Front top mouth pain and swelling x 3 days Pain: R shoulder and neck pain, stiffness and stabbing pain x 2 days PAST MEDICAL HISTORY Diagnosis Date Back pain Chest pain 01/11/2014 Depression DVT (deep venous thrombosis) ([facility]) July 2013 Hypertension, essential 01/13/2018 Low blood magnesium 03/02/2016 Protein C deficiency (HCC) Protein S deficiency (HCC) S/P cholecystectomy SBO (small bowel obstruction) (HCC) 05/25/2016 Short bowel syndrome PAST SURGICAL HISTORY Procedure Laterality Date ; REMOVAL OF SMALL INTESTINE 09/15/13 11 in. small intestine remain LAP PARTIAL COLECTOMY W/ANASTOMOSIS 09/15/13 REMOVAL GALLBLADDER 2004 ALLERGIES Adhesive, Amoxicillin, and Penicillins MEDICATIONS potassium chloride ER (KLOR-CON) 20 mEq tablet Take 1 tablet by mouth once daily. metroNIDAZOLE (FLAGYL) 250 mg tablet Take 1 tablet by mouth three times a day. Take for one week every 1-2 months for SIBO MAGTAB 84 mg TbER Take 2 tablets by mouth three times a day. multivit with min #[id number] (DEKAS PLUS, FOLIC ACID,) 200 mcg-1,000 mcg-10 mg cap Take 1 capsule by mouth once daily. pdpcyh-nlbgzoar-thhz ase (ZENPEP) 25,000-79,000- 105,000 unit delayed release capsule Take 2 with meals and 1 with snacks cyanocobalamin (VITAMIN B-12) 1,000 mcg/mL Inject 1 mL intramuscularly once every month. Then resume monthly 1 mL injections for 2 months. Administer at [facility] Vitamin E, dl, acetate, (VITAMIN E) 400 unit capsule Take 1 capsule by mouth once daily. ergocalciferol 50,000 unit capsule (VITAMIN D2, DRISDOL) Take 1 capsule by mouth three times a week. cyanocobalamin (VITAMIN B-12) 1,000 mcg/mL Inject 1 mL intramuscularly one time a week for 4 doses. Once completed, resume once monthly injections. Syringe with Needle, Disp, 3 mL 25 gauge x 1 1 Syringe one time a week. One syringe as directed for Vitamin B12 injection as ordered. magnesium oxide-magnesium amino acid chelate (BM-IJAH-ITDAONE) 133 mg tablet Take 3 tablets by mouth three times a day. magnesium lactate ER (MAGTAB) 84 mg TbER Take 2 tablets by mouth three times a day. (Patient not taking: Reported on 08/14/2024) ergocalciferol 50,000 unit capsule (VITAMIN D2, DRISDOL) Take 1 capsule by mouth three times a week. (Patient not taking: Reported on 08/14/2024) copper citrate 2 mg capsule Take 1 capsule by mouth once daily. (Patient not taking: Reported on 08/14/2024) naproxen (NAPROSYN) 500 mg tablet Take 1 tablet by mouth two times a day as needed (for pain/inflammation). Take with food. (Patient not taking: Reported on 07/01/2024) cyanocobalamin 1,000 mcg/mL Inject 1 mL intramuscularly once every month. (Patient not taking: Reported on 07/01/2024) iron polysaccharide complex (FERREX 150) 150 mg iron capsule Take 1 capsule by mouth once daily. (Patient not taking: Reported on 08/14/2024) predniSONE (DELTASONE) 20 mg tablet 1 tablet 3 times daily for 3 days then 1 tablet twice daily for 2 days then 1 tablet daily for 2 days then half a tablet p.o. daily for 1 day (Patient not taking: Reported on 07/01/2024) loperamide (IMODIUM A-D) 2 mg cap(s) Take 1 capsule by mouth before meals and at bedtime. (Patient not taking: Reported on 08/14/2024) pyridoxine, vitamin B6, (VITAMIN B6) 50 mg tablet Take 2 tablets by mouth once daily. (Patient not taking: Reported on 08/14/2024) FAMILY HISTORY Problem Relation Age of Onset Hypertension Mother Heart Mother Psychiatry Father bi-polar Diabetes Maternal Grandmother Breast Cancer Maternal Aunt Social History Tobacco Use Smoking status: Former Current packs/day: 0.00 Average packs/day: 1.5 packs/day for 13.0 years (19.5 ttl pk- (more content not included)... Normal [facility] Som 07-29-2024 AKOSUA Telephone (GGHUGOMN) NIURKA ZHU ([id number]) 1980 F Date Time Provider Department 07/29/24 CGRT DIETITIAN GGENMN During your visit today, we recorded the following information about you: Kedar Roberts 07/29/2024 3:01 PM Signed Vm-Returning a call to [facility] for lab results. [phone] Comfort Eller, LIZZY 07/30/2024 2:22 PM Signed Attempted to return call. Left message to call office. Previous encounter, need to discuss mag and potassium - Confirm if taking DEKAs or Forvia for additional Vitamin E - Confirm pt is taking 9 tabs of Mag Tab. If so determine if pt willing to change to Mg Plus Protein supplement as this contains more mEq per tablet. - Upon return call: Start 20 mEq K+ daily - Would Recheck BMP, Mg in 2 weeks. Orders not written yet. Marci Vanegas RD, LIZZY 08/04/2024 3:01 PM Signed Return call attempted for f/up on lab results. Left VM for patient asking she call the office to review results and recommendations as noted below: Previous encounter, need to discuss mag and potassium - Confirm if taking DEKAs or Forvia for additional Vitamin E - Confirm pt is taking 9 tabs of Mag Tab. If so determine if pt willing to change to Mg Plus Protein supplement as this contains more mEq per tablet. - Upon return call: Start 20 mEq K+ daily - Would Recheck BMP, Mg in 2 weeks. Orders not written yet. LIZZY Estrada Samantha, LIZZY 08/06/2024 11:34 AM Signed Discussed lab results and recs with patient. She reports consistently taking DIANN and Magtab since starting after recent 06/30/24 office visit. She is experiencing muscle cramps and fatigue but this has actually improved recently. She is willing to change from MagTab to MagPlusProtein, start potassium supplements and repeat labs 1-2 weeks after starting supplements. Vitamin E slightly improved since patient consistently taking DIANN x1 month, will repeat lab in 3 months and monitor need for increased supplementation. Patient reports increased stooling with SIBO symptoms similar to previous episodes (increased gas, greasy and foul smelling stools) since taking antibiotic (Macrobid) for UTI. She finished abx over the weekend. Patient reports good success with flagyl previously (last prescribed 07/01/24). Encouraged increased ORS intake to prevent dehydration and patient verbalized understanding. Will discuss with Dr. Elmore. Patient also reports not yet starting vitamin B12 boost regimen because a prior auth is required. Prescription generated 07/07/24 now , will generate new script and request NST RN assistance with prior auth. Patient also requested assistance with disability paperwork. Will forward request to Dr. Elmore and NST RN, but also encouraged patient to discuss with PCP. Recommendations: - Push ORS intake (Drip Drop) - Continue DIANN Plus (contains Vitamin E) - Stop MagTab (9 tabs/d) - Start MgPlusProtein 3 tabs TID after meals (9 tabs/d). Refill generated and ordering info sent via [employer] - Start Potassium 20 mEq daily. Refill generated. - Start Booster B12 1000 mcg IM injections once weekly x4 weeks, then resume once monthly injections. Refill generated and Prior auth needed. - Recheck BMP and Mg 1-2 weeks after starting electrolytes. Will add f/u vit E due 10/04 (Cu, vit D and A due at same time) Ordered in [employer]. Mara Prather RD, GAL, [facility] ([facility]) Mara Prather RD 08/07/2024 10:48 AM Signed Spoke with patient and relayed Dr. Elmore recommendation for flagyl prn every 1-[address]. [address] Elmore is receptive to completing disability paperwork but requires an office visit to do so. Patient was not able to write down office number so will send via [employer]. Mara Prather RD, GAL, [facility] ([facility]) Allergies As of Date: 07/29/2024 Noted Allergy Reaction ADHESIVE 09/07/2016 2 - Rash 9 - Itching AMOXICILLIN 09/26/2011 4 - Hives PENICILLINS 09/26/2011 4 - Hives Date Reviewed: 07/26/2024 Reviewed by: Bianca Yeboah LPN - Fully Assessed Reason for Visit: return a call [Other] Primary Visit Diagnosis:Small intestinal bacterial overgrowth (SIBO) [K63.8219] Order(s):metroNIDAZO LE (FLAGYL) 250 mg tabletTake 1 tablet by mouth three times a day. Take for one week every 1-2 months for SIBODisp: 21 tabletRfl: 11 Prescriptions as of 08/07/2024 - cyanocobalamin (VITAMIN B-12) 1,000 mcg/mL Inject 1 mL intramuscularly one time a week for 4 doses. Once completed, resume once monthly injections. - Syringe with Needle, Disp, 3 mL 25 gauge x 1 1 Syringe one time a week. One syringe as directed for Vitamin B12 injection as ordered. - magnesium oxide-magnesium amino acid chelate (YE-SZVK-ZOWDPUS) 133 mg tablet Take 3 tablets by mouth three times a day. - potassium chloride ER (KLOR-CON) 20 mEq tablet (more content not included)... Normal [facility] Bacteria Ur Culton Bacteria identified Cx Nom (U) CULTURE, URINE: Mixed microbiota, including predominantly: ORGANISM ID: 1 50,000-<100,000 CFU/ml Escherichia coli ORGANISM ID: 1 (ESCHERICHIA COLI) ANTIBIOTIC INTERPRETATION ASHLI STATUS REFERENCE RANGE Ampicillin S <=2 F Susceptible <=8 , Intermediate >8 , Resistant >16 Cefazolin S <=4 F Susceptible 0-16 , Intermediate <0 or >16 , Resistant >16 For uncomplicated urinary tract infections, cefazolin results can be used to predict susceptibility or resistance to cephalexin. Ceftriaxone S <=1 F Susceptible <=1 , Intermediate >1 , Resistant >=4 Cefepime S <=1 F Susceptible <=2 , Susceptible-Dose Dependent >2 , Resistant >=16 Ertapenem S <=0.5 F Susceptible <=0.5 , Intermediate >.5 , Resistant >1 Meropenem S <=0.25 F Susceptible <=1 , Intermediate >1 , Resistant >2 Ampicillin/Sulbact S <=2 F Susceptible <=8 , Intermediate >8 , Resistant >16 Piperacillin/Tazobac S <=4 F Susceptible <16 , Susceptible-Dose Dependent >=16 , Resistant >=32 Gentamicin S <=1 F Susceptible <=2 , Intermediate >2 , Resistant >=8 Tobramycin S <=1 F Susceptible <4 , Intermediate >=4 , Resistant >=8 Trimeth sulfameth S <=20 F Susceptible <=40 , Resistant >40 Ciprofloxacin S <=0.25 F Susceptible <0.5 , Intermediate >=.5 , Resistant >=1 Nitrofurantoin I 64 F Susceptible <=32 , Intermediate >32 , Resistant >64 Abnormal [facility] Comment on above: Performed By: #### 6 30-4 ####[facility] LABCLIA [id number] [address] CNOVon 07-26-2024 CNOV Office Visit (UCTR) NIURKA ZHU ([id number]) 1980 F Date Time Provider Department 07/26/24 10:15 AM YOBANI BALLESTEROS [facility] During your visit today, we recorded the following information about you: Temperature Pulse Respiration Blood pressure 97.9 degrees 64/minute 16/minute 128/82 Weight 70.6 kg Yobani Ballesteros APRN.DIRECTOR OF GROUP SALES 07/26/2024 10:22 AM Signed [facility] Subjective Niurka Zhu is a 44 year old female. Presents for urinary urgency, frequency and burning. Reports symptoms started 2-3 days ago. Also reports some suprapubic pain. Patient presents with: Urinary Frequency: Frequency, urgency and burning x 2-3 days Objective BP 128/82 Pulse 64 Temp 36.6 ?C (97.9 ?F) (Tympanic) Resp 16 Wt 70.6 kg (155 lb 10.3 oz) LMP 05/03/2023 (Approximate) SpO2 100% BMI 26.72 kg/m? Physical Exam PHYSICAL EXAMINATION: General appearance: Well appearing, alert, in no acute distress, well-hydrated, well nourished. Abdomen: Positive findings: tenderness mild suprapubic Latest Ref Rng 07/26/2024 GLUCOSE UA (POCT) Negative mg/dL Negative BILIRUBIN UA (POCT) Negative Negative KETONE UA (POCT) Negative mg/dL Negative SPECIFIC GRAVITY UA (POCT) 1.005 - 1.030 1.025 HEMOGLOBIN/BLOOD UA (POCT) Negative Moderate ! PH UA (POCT) 4.5 - 8.0 5.5 PROTEIN UA (POCT) Negative mg/dL Negative UROBILINOGEN UA (POCT) Normal E.U./dL 0.2 NITRITE UA (POCT) Negative Negative LEUKOCYTES UA (POCT) Negative Negative COLOR UA (POCT) Yellow CLARITY UA (POCT) Clear ASSESSMENT/PLAN: 1. Urinary frequency - ICD9: 788.41, ICD10: R35.0 acute - UA positive for hematuria - Send urine for culture - Patient education for prevention given - UA DIP, URINE (POC) - BACTERIAL CULTURE, URINE Given urine is positive for blood only will wait for culture results. If culture positive would start on macrobid. Patient advised if pain becomes severe, she has systemic symptoms or urinary retention to proceed to ER. Verbalized understanding. Yobani Ballesteros APRN.DIRECTOR OF [employer] SAL[employer] Differential Diagnoses - kidney stone is more likely for the following reason(s): suggested by HANDP - UTI is less likely for the following reason(s): laboratory studies not suggestive Disposition The patient was discharged. Allergies As of Date: 07/26/2024 Noted Allergy Reaction ADHESIVE 09/07/2016 2 - Rash 9 - Itching AMOXICILLIN 09/26/2011 4 - Hives PENICILLINS 09/26/2011 4 - Hives Date Reviewed: 07/26/2024 Reviewed by: Bianca Yeboah LPN - Fully Assessed Reason for Visit: Urinary Frequency [1086] Cmt: Frequency, urgency and burning x 2-3 days Primary Visit Diagnosis:Urinary frequency [R35.0] Order(s):UA DIP, URINE (POC) [[id number]] Order #: [id number] #:[id number] BACTERIAL CULTURE, URINE [SQURCUL] Order #: [id number]. #:[id number] Prescriptions as of 07/26/2024 - MAGTAB 84 mg TbER Take 2 tablets by mouth three times a day. - magnesium lactate ER (MAGTAB) 84 mg TbER Take 2 tablets by mouth three times a day. - Syringe with Needle, Disp, 3 mL 25 gauge x 1 Inject 1 Syringe intramuscularly one time a week for 4 doses. One syringe as directed for Vitamin B12 injection as ordered. - cyanocobalamin (VITAMIN B-12) 1,000 mcg/mL Inject 1 mL intramuscularly one time a week for 4 doses. - ergocalciferol 50,000 unit capsule (VITAMIN D2, DRISDOL) Take 1 capsule by mouth three times a week. - copper citrate 2 mg capsule Take 1 capsule by mouth once daily. - multivit with min #53-FA-K-Q10 (DEKAS PLUS, FOLIC ACID,) 200 mcg-1,000 mcg-10 mg cap Take 1 capsule by mouth once daily. - ifiben-xwkppxjc-peld ase (ZENPEP) 25,000-79,000- 105,000 unit delayed release capsule Take 2 with meals and 1 with snacks - cyanocobalamin (VITAMIN B-12) 1,000 mcg/mL Inject 1 mL intramuscularly once every month. Then resume monthly 1 mL injections for 2 months. Administer at [facility] - Syringe with Needle, Disp, 3 mL 25 gauge x 1 1 Syringe once every month. One syringe as directed for Vitamin B12 injection as ordered. - naproxen (NAPROSYN) 500 mg tablet Take 1 tablet by mouth two times a day as needed (for pain/inflammation). Take with food. - Vitamin E, dl, acetate, (VITAMIN E) 400 unit capsule Take 1 capsule by mouth once daily. - ergocalciferol 50,000 unit capsule (VITAMIN D2, DRISDOL) Take 1 capsule by mouth three times a week. - cyanocobalamin 1,000 mcg/mL Inject 1 mL intramuscularly once every month. - iron polysaccharide complex (FERREX 150) 150 mg iron capsule Take 1 capsule by mouth once daily. - predniSONE (DELTASONE) 20 mg tablet 1 tablet 3 times daily for 3 days then 1 tablet twice daily for 2 days then 1 tablet daily for 2 days then half a tablet p.o. daily for 1 day - loperamide (IMODIUM A-D) 2 mg cap(s) Take 1 capsule by mouth before meals and at bedtime. - pyr (more content not included)... Normal [facility] UA DIP, URINE (POC)on 2024 BILIRUBIN UA (POCT) Negative Negative [facility] CLARITY UA (POCT) Clear [facility] COLOR UA (POCT) Yellow [facility] GLUCOSE UA (POCT) Negative Negative mg/dL [facility] Hemoglobin Ql (U) Moderate Abnormal Negative [facility] Interpretation and review of laboratory results Abnormal [facility] KETONE UA (POCT) Negative Negative mg/dL [facility] LEUKOCYTES UA (POCT) Negative Negative [facility] NITRITE UA (POCT) Negative Negative [facility] PH UA (POCT) 5.5 4.5 - 8.0 [facility] Protein Ql (U) Negative Negative mg/dL [facility] SPECIFIC GRAVITY UA (POCT) 1.025 1.005 - 1.030 [facility] UROBILINOGEN UA (POCT) 0.2 Normal E.U./d L [facility] Location:[address], [id number] [place] [address] POINT OF CARE [facility] CNPJacinda 07-22-2024 AKOSUAN Telephone (GASTA5) NIURKA ZHU ([id number]) 1980 F Date Time Provider Department 07/22/24 CGRT DIETITIAN GASTA5 During your visit today, we recorded the following information about you: Nicole Ling 07/22/2024 3:15 PM Signed Patient: NIURKA ZHU ([id number]) Latest Ref Rng 07/21/2024 Glucose 74 - 99 mg/dL 99 BUN 7 - 21 mg/dL 7 Creatinine 0.58 - 0.96 mg/dL 0.54 (L) Sodium 136 - 144 mmol/L 140 Potassium 3.7 - 5.1 mmol/L 3.5 (L) Chloride 98 - 107 mmol/L 106 CO2 22 - 30 mmol/L 26 Anion Gap 8 - 15 mmol/L 8 Calcium 8.5 - 10.2 mg/dL 9.1 eGFR >=60 mL/min/1.73m? 117 Magnesium 1.7 - 2.3 mg/dL 1.3 (L) Pending: Vit Shameka Meléndez RD 07/24/2024 10:53 AM Signed Mg++ unchanged since last labs. K+ slightly low and was low on last labs as well. Awaiting Vitamin E Called pt to review Mg and K+ levels. No answer and VM left. Await return of call. Recommendations: - Confirm pt is taking 9 tabs of Mag Tab. If so determine if pt willing to change to Mg Plus Protein supplement as this contains more mEq per tablet. - Start 20 mEq K+ daily - Recheck BMP, Mg in [address] Nicole Ling 07/27/2024 4:18 PM Signed Patient: NIURKA ZHU ([id number]) 07/21/2024 Vitamin E-alpha 3.0 Vitamin E-gamma 0.[address] 07/28/2024 2:40 PM Signed Vitamin E resulted low and decreased from last draw. Will need to confirm if she started DEKAs. Call to patient (attempt x2). Will send my chart message in martínez of phone conversation. Recs: - Confirm if taking DEKAs or Forvia for additional Vitamin E - Confirm pt is taking 9 tabs of Mag Tab. If so determine if pt willing to change to Mg Plus Protein supplement as this contains more mEq per tablet. - Upon return call: Start 20 mEq K+ daily - Would Recheck BMP, Mg in 2 weeks. Orders not written yet. Linda Saab RD Allergies As of Date: 07/22/2024 Noted Allergy Reaction ADHESIVE 09/07/2016 2 - Rash 9 - Itching AMOXICILLIN 09/26/2011 4 - Hives PENICILLINS 09/26/2011 4 - Hives Date Reviewed: 07/01/2024 Reviewed by: Abdi Stephenson - Fully Assessed Reason for Visit: Results [95] Prescriptions as of 07/28/2024 - nitrofurantoin monohydrate and macrocrystal (MACROBID) 100 mg capsule Take 1 capsule by mouth two times a day for 5 days. - MAGTAB 84 mg TbER Take 2 tablets by mouth three times a day. - magnesium lactate ER (MAGTAB) 84 mg TbER Take 2 tablets by mouth three times a day. - Syringe with Needle, Disp, 3 mL 25 gauge x 1 Inject 1 Syringe intramuscularly one time a week for 4 doses. One syringe as directed for Vitamin B12 injection as ordered. - cyanocobalamin (VITAMIN B-12) 1,000 mcg/mL Inject 1 mL intramuscularly one time a week for 4 doses. - ergocalciferol 50,000 unit capsule (VITAMIN D2, DRISDOL) Take 1 capsule by mouth three times a week. - copper citrate 2 mg capsule Take 1 capsule by mouth once daily. - multivit with min #53-FA-K-Q10 (DEKAS PLUS, FOLIC ACID,) 200 mcg-1,000 mcg-10 mg cap Take 1 capsule by mouth once daily. - henkci-diloywgm-oleq ase (ZENPEP) 25,000-79,000- 105,000 unit delayed release capsule Take 2 with meals and 1 with snacks - cyanocobalamin (VITAMIN B-12) 1,000 mcg/mL Inject 1 mL intramuscularly once every month. Then resume monthly 1 mL injections for [address] [facility] - Syringe with Needle, Disp, 3 mL 25 gauge x 1 1 Syringe once every month. One syringe as directed for Vitamin B12 injection as ordered. - naproxen (NAPROSYN) 500 mg tablet Take 1 tablet by mouth two times a day as needed (for pain/inflammation). Take with food. - Vitamin E, dl, acetate, (VITAMIN E) 400 unit capsule Take 1 capsule by mouth once daily. - ergocalciferol 50,000 unit capsule (VITAMIN D2, DRISDOL) Take 1 capsule by mouth three times a week. - cyanocobalamin 1,000 mcg/mL Inject 1 mL intramuscularly once every month. - iron polysaccharide complex (FERREX 150) 150 mg iron capsule Take 1 capsule by mouth once daily. - predniSONE (DELTASONE) 20 mg tablet 1 tablet 3 times daily for 3 days then 1 tablet twice daily for 2 days then 1 tablet daily for 2 days then half a tablet p.o. daily for 1 day - loperamide (IMODIUM A-D) 2 mg cap(s) Take 1 capsule by mouth before meals and at bedtime. - pyridoxine, vitamin B6, (VITAMIN B6) 50 mg tablet Take 2 tablets by mouth once daily. 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 Normal [facility] A-Tocopherol Vit E SerP-n con 07-21-2024 Alpha tocopherol [Mass/Vol] Normal [facility] Comment on above: Order Comment: Speci men Type: BLOOD SPECIMENOrdering Facility: [facility] Address: [address] [place], [place] [id number] Result Comment: 3.0 mg/L Test performed at [facility] in [place], [place]. Disregard [facility] reference range. [facility] Vitamin E alpha reference range is: 5.5-18.0 mg/L. [facility] Vitamin E gamma reference range is: 0.0-6.0 mg/L. This test was developed and its performance characteristics determined by [employer] It has not been cleared or approved by the [place] Food and Drug Administration. This test was performed in a CLIA certified laboratory and is intended for clinical purposes. Performed By: #### 1 823-4 ####[facility] [id number] [place] [address] [place] Alpha tocopherol [Mass/Vol]o n 07-21-2024 Beta+gamma tocopherol [Mass/Vol] Normal [facility] Comment on above: Order Comment: Speci men Type: BLOOD SPECIMENOrdering Facility: [facility] Address: [address] [place] [address] Result Comment: 0.6 mg/L Test performed at [facility] in [place], [place]. Disregard [facility] reference range. [facility] Vitamin E alpha reference range is: 5.5-18.0 mg/L. [facility] Vitamin E gamma reference range is: 0.0-6.0 mg/L. This test was developed and its performance characteristics determined by [employer] It has not been cleared or approved by the [place] Food and Drug Administration. This test was performed in a CLIA certified laboratory and is intended for clinical purposes. Performed By: #### 1 823-4 ####[facility]IA [id number] [place] [address] [place] Basic metabolic 2000 panelon 07-21-2024 Anion gap [Moles/Vol] 8 mmol/L Normal 8-15 [facility] Comment on above: Order Comment: Speci men Type: BLOOD SPECIMEN Ordering Facility: [facility] Address: [address] [place] [address] Performed By: #### B 1WB #### [facility] CLIA [id number] [address] [place] [address] [place] Calcium [Mass/Vol] 9.1 mg/dL Normal 8.5-10.2 [facility] Comment on above: Order Comment: Speci men Type: BLOOD SPECIMEN Ordering Facility: [facility] Address: [address] [place] [address] Performed By: #### B 1WB #### [facility] CLIA [id number] [address] [place] [address] [place] Chloride [Moles/Vol] 106 mmol/L Normal 98-107 [facility] Comment on above: Order Comment: Speci men Type: BLOOD SPECIMEN Ordering Facility: [facility] Address: [address] [place] [address] Performed By: #### B 1WB #### [facility] CLIA [id number] [address] [place], [place] [address] [place] [address] [place] CO2 [Moles/Vol] 26 mmol/L Normal 22-30 [facility] Comment on above: Order Comment: Speci men Type: BLOOD SPECIMEN Ordering Facility: [facility] Address: [address] [place] [address] Performed By: #### B 1WB #### [facility] CLIA [id number] [address] [place] [address] [place] Creatinine [Mass/Vol] 0.54 mg/dL Low 0.58-0.96 [facility] Comment on above: Order Comment: Speci men Type: BLOOD SPECIMEN Ordering Facility: [facility] Address: [address] [place] [address] Performed By: #### B 1WB #### [facility] CLIA [id number] [address] [place] [address] [place] Creatinine and Glomerular filtration rate.predicted panel (S/P/Bld) 117 mL/min/1.73m??? Normal >=60 [facility] Comment on above: Order Comment: Speci men Type: BLOOD SPECIMEN Ordering Facility: [facility] Address: [address] [place] [address] Result Comment: Eve mated Glomerular Filtration Rate (eGFR) is calculated using the 2020 CKD-EPI creatinine equation. This equation utilizes serum creatinine, sex, and age as parameters. The creatinine assay has traceable calibration to isotope dilution-mass spectrometry. Refer to KDIGO guidelines for clinical interpretation. In patients with unstable renal function, e.g. those with acute kidney injury, the eGFR may not accurately reflect actual GFR. Performed By: #### B 1WB #### [facility] CLIA [id number] [address] [place] [address] [place] Glucose [Mass/Vol] 99 mg/dL Normal 74-99 [facility] Comment on above: Order Comment: Speci men Type: BLOOD SPECIMEN [facility]ing Facility: [facility] Address: [address] [place] [address] Result Comment: The [place] Diabetes Association (ADA) provides guidance for cutoff values for fasting glucose and random glucose. The ADA defines fasting as no caloric intake for at least 8 hours. Fasting plasma glucose results between 100 to 125 mg/dL indicate increased risk for diabetes (prediabetes). Fasting plasma glucose results greater than or equal to 126 mg/dL meet the criteria for diagnosis of diabetes. In the absence of unequivocal hyperglycemia, results should be confirmed by repeat testing. In a patient with classic symptoms of hyperglycemia or hyperglycemic crisis, random plasma glucose results greater than or equal to 200 mg/dL meet the criteria for diagnosis of diabetes. Reference: Standards of Medical Care in Diabetes 2016, [place] Diabetes Association. Diabetes Care. 2016.39(Suppl 1). Performed By: #### B 1WB #### [facility] CLIA [id number] [address] [place] [address] [place] Potassium [Moles/Vol] 3.5 mmol/L Low 3.7-5.1 [facility] Comment on above: Order Comment: Speci men Type: BLOOD SPECIMEN [facility]ing Facility: [facility] Address: [address] [place] [address] Performed By: #### B 1WB #### [facility] CLIA [id number] [address] [place] [address] [place] Sodium [Moles/Vol] 140 mmol/L Normal 136-144 [facility] Comment on above: Order Comment: Speci men Type: BLOOD SPECIMEN [facility]ing Facility: [facility] Address: [address] [place] [address] Performed By: #### B 1WB #### [facility] CLIA [id number] [address] [place] [address] [place] Urea nitrogen [Mass/Vol] 7 mg/dL Normal 7-21 [facility] Comment on above: Order Comment: Speci men Type: BLOOD SPECIMEN [facility] Facility: [facility] Address: [address] [place] [address] Performed By: #### B 1WB #### [facility] CLIA [id number] [address] [place] [address] [place] Magnesium SerPl-mCncon 07-21 Magnesium [Mass/Vol] 1.3 mg/dL Low 1.7-2.3 [facility] Comment on above: Order Comment: Grahami helder Type: BLOOD SPECIMEN [facility] Facility: [facility] Address: [address] [place] [address] Performed By: #### B 1WB #### [facility] CLIA [id number] [address] [place] [address] [place] CNPNon 07-14-2024 CNPN Telephone (GASTA5) NIURKA ZHU ([id number]) 1980 F Date Time Provider Department 07/14/24 VIKKI ELMORE GASTA5 During your visit today, we recorded the following information about you: Mihai Johnson, DOMINGO 07/14/2024 3:38 PM Signed PA needed for med, hendrickson code in covermymeds [id number] and sent to [facility]. Mihai Johnson, Mihai Mulligan, RN 07/16/2024 10:04 AM Signed Per covermymeds, med non preferred NDC med and other forms of medication do not require PA, if want this med, need to put SYLVIA in script. Mihai Johnson RN Allergies As of Date: 07/14/2024 Noted Allergy Reaction ADHESIVE 09/07/2016 2 - Rash 9 - Itching AMOXICILLIN 09/26/2011 4 - Hives PENICILLINS 09/26/2011 4 - Hives Date Reviewed: 07/01/2024 Reviewed by: Abdi Stephenson - Fully Assessed Reason for Visit: Insurance Authorization [[id number]] Cmt: for Mag tab Prescriptions as of 07/16/2024 - magnesium lactate ER (MAGTAB) 84 mg TbER Take 2 tablets by mouth three times a day. - Syringe with Needle, Disp, 3 mL 25 gauge x 1 Inject 1 Syringe intramuscularly one time a week for 4 doses. One syringe as directed for Vitamin B12 injection as ordered. - cyanocobalamin (VITAMIN B-12) 1,000 mcg/mL Inject 1 mL intramuscularly one time a week for 4 doses. - ergocalciferol 50,000 unit capsule (VITAMIN D2, DRISDOL) Take 1 capsule by mouth three times a week. - copper citrate 2 mg capsule Take 1 capsule by mouth once daily. - multivit with min #53-FA-K-Q10 (DEKAS PLUS, FOLIC ACID,) 200 mcg-1,000 mcg-10 mg cap Take 1 capsule by mouth once daily. - kkkgaw-xhtcddhc-qvdj ase (ZENPEP) 25,000-79,000- 105,000 unit delayed release capsule Take 2 with meals and 1 with snacks - cyanocobalamin (VITAMIN B-12) 1,000 mcg/mL Inject 1 mL intramuscularly once every month. Then resume monthly 1 mL injections for 2 months. Administer at [facility] - Syringe with Needle, Disp, 3 mL 25 gauge x 1 1 Syringe once every month. One syringe as directed for Vitamin B12 injection as ordered. - naproxen (NAPROSYN) 500 mg tablet Take 1 tablet by mouth two times a day as needed (for pain/inflammation). Take with food. - Vitamin E, dl, acetate, (VITAMIN E) 400 unit capsule Take 1 capsule by mouth once daily. - ergocalciferol 50,000 unit capsule (VITAMIN D2, DRISDOL) Take 1 capsule by mouth three times a week. - magnesium lactate ER (MAGTAB) 84 mg TbER Take 2 pills three times daily after meals and 3 pills at bedtime for total of 9 pills/day. - cyanocobalamin 1,000 mcg/mL Inject 1 mL intramuscularly once every month. - iron polysaccharide complex (FERREX 150) 150 mg iron capsule Take 1 capsule by mouth once daily. - predniSONE (DELTASONE) 20 mg tablet 1 tablet 3 times daily for 3 days then 1 tablet twice daily for 2 days then 1 tablet daily for 2 days then half a tablet p.o. daily for 1 day - loperamide (IMODIUM A-D) 2 mg cap(s) Take 1 capsule by mouth before meals and at bedtime. - pyridoxine, vitamin B6, (VITAMIN B6) 50 mg tablet Take 2 tablets by mouth once daily. 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] 01/11/2015 Intestinal malabsorption [K90.9] 01/11/2015 Hypomagnesemia [E83.42] [...] 10/10/2018 Hypokalemia [E87.6] 10/10/2018 Encounter Status:Closed by MIHAI JOHNSON on 07/14/24 Normal [facility] Som 07-06-2024 [facility] Telephone (GASTA5) NIURKA ZHU ([id number]) 1980 F Date Time Provider Department 07/06/24 CGRT DIETITIAN JOSE ALEJANDRO During your visit today, we recorded the following information about you: Nicole Ling 07/06/2024 4:08 PM Signed Patient: NIURKA ZHU ([id number]) Latest Ref Rng 07/01/2024 WBC 3.70 - 11.00 k/uL 4.73 RBC 3.90 - 5.20 m/uL 4.51 Hemoglobin 11.5 - 15.5 g/dL 13.4 Hematocrit 36.0 - 46.0 % 41.7 MCV 80.0 - 100.0 fL 92.5 MCH 26.0 - 34.0 pg 29.7 MCHC 30.5 - 36.0 g/dL 32.1 RDW-CV 11.5 - 15.0 % 12.8 Platelet Count 150 - 400 k/uL 173 MPV 9.0 - 12.7 fL 9.9 Neut% % 59.3 Abs Neut (ANC) 1.45 - 7.50 k/uL 2.80 Lymph% % 29.8 Abs Lymph 1.00 - 4.00 k/uL 1.41 [place]% % 7.2 Abs [place] <0.87 k/uL 0.34 Eosin% % 2.7 Abs Eosin <0.46 k/uL 0.13 Baso% % 0.8 Abs Baso <0.11 k/uL 0.04 Immature Gran % % 0.2 IMMATURE GRANS (ABS) <0.10 k/uL <0.03 NRBC /100 WBC 0.0 Absolute nRBC <0.01 k/uL <0.01 DTYPE Auto Protein, Total 6.3 - 8.0 g/dL 7.0 Albumin 3.9 - 4.9 g/dL 4.5 Calcium 8.5 - 10.2 mg/dL 9.6 Bilirubin, Total 0.2 - 1.3 mg/dL 0.9 Alkaline Phosphatase 34 - 123 U/L 89 AST 13 - 35 U/L 28 ALT 7 - 38 U/L 23 Glucose 74 - 99 mg/dL 79 BUN 7 - 21 mg/dL 10 Creatinine 0.58 - 0.96 mg/dL 0.67 Sodium 136 - 144 mmol/L 138 Potassium 3.7 - 5.1 mmol/L 3.6 (L) Chloride 98 - 107 mmol/L 103 CO2 22 - 30 mmol/L 23 Anion Gap 8 - 15 mmol/L 12 eGFR >=60 mL/min/1.73m? 111 Iron 41 - 186 ug/dL 95 TIBC 232 - 386 ug/dL 277 Transferrin Saturation 20.0 - 55.0 % 34.3 Vitamin E-alpha -- Vitamin E-gamma -- TSH 0.270 - 4.200 mIU/L 1.510 Folate >4.7 ng/mL 12.9 Ferritin 14.7 - 205.1 ng/mL 160.0 Magnesium 1.7 - 2.3 mg/dL 1.3 (L) Phosphorus 2.7 - 4.8 mg/dL 3.0 Zinc 60 - 120 ug/dL 72 Copper 80 - 155 ug/dL 60 (L) Vitamin A 0.30 - 1.20 mg/L 0.07 (L) Vitamin D 25 Hydroxy 31.0 - 80.0 ng/mL 10.8 (L) Vitamin B12 232 - 1,245 pg/mL <150 (L) Methylmalonic Acid <=0.40 umol/L 3.21 (H) Vitamin K 0.22 - 4.88 nmol/L 0.22 Vitamin B6, Plasma 20.0 - 125.0 nmol/L 20.0 Vitamin B1 (TDP), Whole Blood 84.3 - 213.3 nmol/L 144.8 CRP <0.9 mg/dL <0.3 Shameka Joyce, RD 07/07/2024 1:53 PM Addendum Lab results reviewed. Called patient to review and no answer. VM left. Hydration: BUN/sCr wnl Lytes: K+ slightly low at 3.6, Mg 1.3 (L), phos wnl Vitamins/ trace elements: Vit A decreased 0.20 -> 0.07 (L) MMA 3.21 (H), B12 < 150 (L) Vit D 14.2 (L) - > 10.8 (L) Cu 60 (L) Vit K, B6, B1, Zn, iron studies WNL Vit E not obtained Recommendations: - START DEKAs essential daily - unsure if she will get covered - if covered, can hold Vit A and E when starting ; my also consider Bariatric Plus Multivitamin -Pt provided with 4 bottles of Forvia daily multivitamin in meantime at recent clinic visit - Vitamin A 10,000 units daily - not taking - Start Booster B12 injections weekly and then transition back to monthly injections. - Vitamin D2 50,000 units 2x/week (increased to 3x/week s/p 09/20/23 labs - unknown if actually started) -will need to assess if taking and if not will need to resume. - Vitamin E 400 units daily -not currently taking - Copper Gluconate 2 mg 1 capsule daily - not currently taking - Ok to continue not taking as levels WNL: Iron polysaccharide daily - Resume Mag Tab 2 tabs after meals and 3 at bedtime (9 daily not currently taking - Recheck Mg in 2 weeks and determine if patient willing to have Vit E checked as lab not obtained. LIZZY CoradoKaian 07/07/2024 12:02 PM Signed Pt called, returning Shameka call. Shameka Joyce RD 07/07/2024 12:26 PM Signed Attempted to return call to patient. VM left. Shameka Joyce RD Nicole Ling 07/07/2024 1:34 PM Signed Patient returned call to office for RD. Shameka Niurka Shameka Joyce RD 07/07/2024 1:56 PM Signed Spoke to patient regarding recommendations below. Scripts to be sent to [facility] in [place], [place] Recommendations: - START DEKAs essential daily - can hold Vit A and E when starting ; -Pt provided with 4 bottles of Forvia daily multivitamin in meantime at recent clinic visit - Ok to hold if starting DIANN, Vitamin A 10,000 units daily - not taking - Start Booster B12 injections weekly and then transition back to monthly injections. - Resume Vitamin D2 50,000 units 3x per week - Ok to hold if starting DIANN, Vitamin E 400 units daily - Resume Copper Gluconate 2 mg 1 capsule daily - Ok to continue not taking as levels WNL: Iron polysaccharide daily - Resume Mag Tab 2 tabs after meals (6 tabs per day) - Recheck Mg in 2 weeks and determine if patient willing to have Vit E checked as lab not obtained. Shameka Joyce RD Allergies As of Date: 07/06/2024 Noted Allergy Reaction ADHESIVE 09/07/2016 2 - Rash 9 - Itching AMOXICILLIN 09/26/2011 4 - Hives PENICILLINS 09/26/2011 4 - Hives Date Reviewed: 07/01/2024 Courtney (more content not included)... Normal [facility] Cobalamin (Vitamin B12) [Mas s/Vol]on 07-02-2024 Interpretation and review of laboratory results Abnormal [facility] VITAMIN B12on 07-02-2024 Cobalamin (Vitamin B12) [Mass/Vol] pg/mL Low 232 - 1245 pg/mL [facility] Comment on above: Result rechecked. 25(OH)D3 [facility] 2024 25-hydroxyvitamin D3 [Mass/Vol] 10.8 ng/mL Low 31.0-80.0 [facility] Comment on above: Order Comment: Speci helder Type: BLOOD SPECIMENOrdering Facility: [facility] Address: [address] [place] [address] Result Comment: Clas sification of 25 [place] Vitamin D status: Deficiency/Insufficiency: < or = 30 ng/ml. Sufficiency/Optimal Levels: 31-80 ng/mL Toxicity: > 100 ng/mL. Test performed by chemiluminescent immunoassay. Performed By: #### 1 989-3 ####[facility] LABCLIA [id number] [place] [address] [place] 25-hydroxyvitamin D3 [Mass/V ol]on 07-01-2024 Interpretation and review of laboratory results Abnormal [facility] The reference range interval was based on an analysis of samples from healthy adults and may not pertain to children from 0-18 years old. [facility] A-Tocopherol Vit E SerPl-mCn con 07-01-2024 Alpha tocopherol [Mass/Vol] Normal [facility] Comment on above: Order Comment: Nazanin pendleton Type: BLOOD SPECIMENOrdering Facility: [facility] Address: [address] [place] [address] Result Comment: 2.5 mg/L Test performed at [facility] in [place], [place]. Disregard [facility] reference range. [facility] Vitamin E alpha reference range is: 5.5-18.0 mg/L. [facility] Vitamin E gamma reference range is: 0.0-6.0 mg/L. This test was developed and its performance characteristics determined by [facility]. It has not been cleared or approved by the [place] Food and Drug Administration. This test was performed in a CLIA certified laboratory and is intended for clinical purposes. Performed By: #### 2 923-1, 1823-4 ####[facility] LABIA [id number] [place] [address] [place] Alpha tocopherol [Mass/Vol]o n 07-01-2024 Beta+gamma tocopherol [Mass/Vol] Normal [facility] Comment on above: Order Comment: Speci men Type: BLOOD SPECIMENOrdering Facility: [facility] Address: [address] [place] [address] Result Comment: 0.4 mg/L Test performed at [facility] in [place], [place]. Disregard [facility] reference range. [facility] Vitamin E alpha reference range is: 5.5-18.0 mg/L. [facility] Vitamin E gamma reference range is: 0.0-6.0 mg/L. This test was developed and its performance characteristics determined by [facility]. It has not been cleared or approved by the US Food and Drug Administration. This test was performed in a CLIA certified laboratory and is intended for clinical purposes. Performed By: #### 2 923-1, 1823-4 ####[facility] LABCLIA [id number] [place] [id number] [place] CBC W Auto Differential pane l (Bld)on 07-01-2024 Basophils (Bld) [#/Vol] 0.04 10*3/[facility]L [facility] Basophils/100 WBC (Bld) 0.8 % C [facility] Differential cell count method Nom (Bld) Auto [facility] Eosinophils (Bld) [#/Vol] 0.13 10*3/uL [facility] Eosinophils/100 WBC (Bld) 2.7 % [facility] Erythrocyte distribution width (RBC) [Ratio] 12.8 % 11.5 - 15.0 % [facility] Hematocrit (Bld) [Volume fraction] 41.7 % 36.0 - 46.0 % [facility] Hemoglobin (Bld) [Mass/Vol] 13.4 g/dL 11.5 - 15.5 g/dL [facility] Immature granulocytes (Bld) [#/Vol] [facility] Immature granulocytes/100 WBC (Bld) 0.2 % [facility] Lymphocytes (Bld) [#/Vol] 1.41 10*3/uL [facility] Lymphocytes/100 WBC (Bld) 29.8 % [facility] MCH (RBC) [Entitic mass] 29.7 pg 26.0 - 34.0 pg [facility] MCHC (RBC) [Mass/Vol] 32.1 g/dL 30.5 - 36.0 g/dL [facility] MCV (RBC) [Entitic vol] 92.5 fL 80.0 - 100.0 fL [facility] Monocytes (Bld) [#/Vol] 0.34 10*3/uL [facility] Monocytes/100 WBC (Bld) 7.2 % [facility] Neutrophils (Bld) [#/Vol] 2.8 10*3/uL [facility] Neutrophils/100 WBC (Bld) 59.3 % [facility] Nucleated RBC (Bld) [#/Vol] [facility] Nucleated RBC/100 WBC (Bld) [Ratio] 0 % /100 WBC [facility] Platelet mean volume (Bld) [Entitic vol] 9.9 fL 9.0 - 12.7 fL [facility] Platelets (Bld) [#/Vol] 173 10*3/uL [facility] RBC (Bld) [#/Vol] 4.51 10*6/uL 3.90 - 5.2 0 m/uL [facility] WBC (Bld) [#/Vol] 4.73 10*3/uL [facility] Basophils (Bld) [#/Vol] 0.04 10*3/uL Normal <0.11 [facility] Comment on above: Order Comment: Speci men Type: BLOOD SPECIMENOrdering Facility: [facility] Address: [address] [place] [address] Performed By: #### 5 7021-8 ####[facility] LABCLIA [id number] [place] [address] [place] Basophils/100 WBC (Bld) 0.8 % Normal [facility] Comment on above: Order Comment: Speci men Type: BLOOD SPECIMENOrdering Facility: [facility] Address: [address] [place] [address] Performed By: #### 5 7021-8 ####[facility] LABCLIA [id number] [place] [address] [place] Differential cell count method Nom (Bld) Auto Normal [facility] Comment on above: Order Comment: Speci men Type: BLOOD SPECIMENOrdering Facility: [facility] Address: [address] [place] [address] Performed By: #### 5 7021-8 ####[facility] LABCLIA [id number] [place] [address] [place] Eosinophils (Bld) [#/Vol] 0.13 10*3/uL Normal <0.46 [facility] Comment on above: Order Comment: Speci men Type: BLOOD SPECIMENOrdering Facility: [facility] Address: [address] [place] [address] Performed By: #### 5 7021-8 ####[facility] LABCLIA [id number] [address] [place] Eosinophils/100 WBC (Bld) 2.7 % Normal [facility] Comment on above: Order Comment: Speci men Type: BLOOD SPECIMENOrdering Facility: [facility] Address: [address] [place] [address] Performed By: #### 5 7021-8 ####[facility] LABCLIA [id number] [address] [id number] [address] [place] Erythrocyte distribution width (RBC) [Ratio] 12.8 % Normal 11.5-15.0 [facility] Comment on above: Order Comment: Speci men Type: BLOOD SPECIMENOrdering Facility: [facility] Address: [address] [place] [address] Performed By: #### 5 7021-8 ####[facility] LABCLIA [id number] [place] [address] [place] Hematocrit (Bld) [Volume fraction] 41.7 % Normal 36.0-46.0 [facility] Comment on above: Order Comment: Speci men Type: BLOOD SPECIMENOrdering Facility: [facility] Address: [address] [place] [address] Performed By: #### 5 7021-8 ####[facility] LABCLIA [id number] [place] [address] [place] Hemoglobin (Bld) [Mass/Vol] 13.4 g/dL Normal 11.5-15.5 [facility] Comment on above: Order Comment: Speci men Type: BLOOD SPECIMENOrdering Facility: [facility] Address: [address] [place] [address] Performed By: #### 5 7021-8 ####[facility] LABIA [id number] [place] [address] [place] Immature granulocytes (Bld) [#/Vol] 10*3/uL Normal <0.10 [facility] Comment on above: Order Comment: Speci men Type: BLOOD SPECIMENOrdering Facility: [facility] Address: [address] [place] [address] Performed By: #### 5 7021-8 ####[facility] LABCLIA [id number] [place] [address] [place] Immature granulocytes/100 WBC (Bld) 0.2 % Normal [facility] Comment on above: Order Comment: Speci men Type: BLOOD SPECIMENOrdering Facility: [facility] Address: [address] [place] [address] Performed By: #### 5 7021-8 ####[facility] LABCLIA [id number] [place] [address] [place] Lymphocytes (Bld) [#/Vol] 1.41 10*3/uL Normal 1.00-4.00 [facility] Comment on above: Order Comment: Speci men Type: BLOOD SPECIMENOrdering Facility: [facility] Address: [address] [place] [address] Performed By: #### 5 7021-8 ####[facility] LABCLIA [id number] [place] [address] [place] Lymphocytes/100 WBC (Bld) 29.8 % Normal [facility] Comment on above: Order Comment: Speci men Type: BLOOD SPECIMENOrdering Facility: [facility] Address: [address] [place] [address] Performed By: #### 5 7021-8 ####[facility] LABCLIA [id number] [place] [address] [place] MCH (RBC) [Entitic mass] 29.7 pg Normal 26.0-34.0 [facility] Comment on above: Order Comment: Speci men Type: BLOOD SPECIMENOrdering Facility: [facility] Address: [address] [place] [address] Performed By: #### 5 7021-8 ####[facility] LABCLIA [id number] [place] [address] [place] MCHC (RBC) [Mass/Vol] 32.1 g/dL Normal 30.5-36.0 [facility] Comment on above: Order Comment: Speci men Type: BLOOD SPECIMENOrdering Facility: [facility] Address: [address] [place] [address] Performed By: #### 5 7021-8 ####[facility] LABCLIA [id number] [place] [address] [place] MCV (RBC) [Entitic vol] 92.5 fL Normal 80.0-100.0 C [facility] Comment on above: Order Comment: Speci men Type: BLOOD SPECIMENOrdering Facility: [facility] Address: [address] [place] [address] Performed By: #### 5 7021-8 ####[facility] LABCLIA [id number] [place] [address] [place] Monocytes (Bld) [#/Vol] 0.34 10*3/uL Normal <0.87 [facility] Comment on above: Order Comment: Speci men Type: BLOOD SPECIMENOrdering Facility: [facility] Address: [address] [place] [address] Performed By: #### 5 7021-8 ####[facility] LABCLIA [id number] [place] [address] [place] Monocytes/100 WBC (Bld) 7.2 % Normal C [facility] Comment on above: Order Comment: Speci men Type: BLOOD SPECIMENOrdering Facility: [facility] Address: [address] [place] [address] Performed By: #### 5 7021-8 ####[facility] LABCLIA [id number] [place] [address] [place] Neutrophils (Bld) [#/Vol] 2.80 10*3/uL Normal 1.45-7.50 [facility] Comment on above: Order Comment: Speci men Type: BLOOD SPECIMENOrdering Facility: [facility] Address: [address] [place] [address] Performed By: #### 5 7021-8 ####[facility] LABCLIA [id number] [place] [address] [place] Neutrophils/100 WBC (Bld) 59.3 % Normal [facility] Comment on above: Order Comment: Speci men Type: BLOOD SPECIMENOrdering Facility: [facility] Address: [address] [place] [address] Performed By: #### 5 7021-8 ####[facility] LABCLIA [id number] [place] [address] [place] Nucleated RBC (Bld) [#/Vol] 10*3/uL Normal <0.01 [facility] Comment on above: Order Comment: Speci men Type: BLOOD SPECIMENOrdering Facility: [facility] Address: [address] [place] [address] Performed By: #### 5 7021-8 ####[facility] LABCLIA [id number] [place] [address] [place] Nucleated RBC/100 WBC (Bld) [Ratio] 0.0 /100 WBC Normal [facility] Comment on above: Order Comment: Speci men Type: BLOOD SPECIMENOrdering Facility: [facility] Address: [address] [place] [address] Performed By: #### 5 7021-8 ####[facility] LABCLIA [id number] [place] [address] [place] Platelet mean volume (Bld) [Entitic vol] 9.9 fL Normal 9.0-12.7 [facility] Comment on above: Order Comment: Speci men Type: BLOOD SPECIMENOrdering Facility: [facility] Address: [address] [place] [address] Performed By: #### 5 7021-8 ####[facility] LABCLIA [id number] [place] [address] [place] Platelets (Bld) [#/Vol] 173 10*3/uL Normal 150-400 [facility] Comment on above: Order Comment: Speci men Type: BLOOD SPECIMENOrdering Facility: [facility] Address: [address] [place] [address] Performed By: #### 5 7021-8 ####[facility] LABCLIA [id number] [place] [address] [place] RBC (Bld) [#/Vol] 4.51 10*6/uL Normal 3.90-5.20 [facility] Comment on above: Order Comment: Speci men Type: BLOOD SPECIMENOrdering Facility: [facility] Address: [address] [place] [address] Performed By: #### 5 7021-8 ####[facility] LABIA [id number] [place] [address] [place] WBC (Bld) [#/Vol] 4.73 10*3/uL Normal 3.70-11.00 [facility] Comment on above: Order Comment: Speci men Type: BLOOD SPECIMENOrdering Facility: [facility] Address: [address] [place] [address] Performed By: #### 5 7021-8 ####[facility] LABIA [id number] [place] [address] [place] CNOVon 07-01-2024 CNOV Office Visit (GGENMN) NIURKA ZHU ([id number]) 1980 F Date Time Provider Department 07/01/24 1:30 PM VIKKI ELMORE GGMILADY During your visit today, we recorded the following information about you: Pulse Blood pressure Weight Height 95/minute 149/95 66.2 kg 1.626 m Vikki Elmore MD 07/01/2024 11:00 PM Signed [facility] Department of Gastroenterology AND Hepatology Digestive Disease AND Surgery [place] Established Patient Visit NAME: Niurka Zhu [facility] NO: [id number] REASON FOR VISIT: Follow up Last visit: 10/30/2023 Niurka Zhu is a 43 year old female with 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 Patient has since underwent STEP procedure 07/21/14 resulting in TPN independence; however was unable to maintain adequate electrolytes and nutrition. Underwent second STEP 09/07/16. Current anatomy: 78 cm of jejunum anastomosed to mid-transverse colon, no ICV, + rectum, +anus. She has had issues with SIBO, malabsorption, and continued IV electrolyte replacement. ISSUES AND PLAN: #) Short bowel syndrome with colon #) Intestinal malabsorption #) SIBO -Received extensive RD counseling today re: SBS with colon -ORS as beverage of choice -Re-start PERT with hx of malabsorption and YADI - Zenpep 25,000-79,000- 105,000 units (2 with meals, 1 with snacks) (did not tolerate creon before) -Restart flagyl #) Micronutrient deficiencies-Need to recheck all levels -Will decide on management based on levels, but will likely need VitB12 injections restarted along with DIANN -Reorder VitB12 monthly injections #Decreased energy #Dizziness #Blood per rectum -Recheck CBC, TSH, iron levels -will benefit from colonoscopy at some point soon Interval history: Patient was last seen 10/30/2023. She has then been lost to follow up. Reports that she has had a tough time at home and has not been taking any of her vitamins. Symptoms described: -Nearsighted vision difficulties and tunnel vision at night -Decreased appetite with no change in jennifer -dizziness and lightheadedness when standing up in morning, no falls or LOC, palpitations but no chest pain -5-6 BM (occasionally difficult to flush) with bad odor and increased bloating, occasional red blood per rectum and when wiping, denies melena -dental problems with fallen teeth and mouth ulcers, no hair problems -Dry skin, irritability, difficulty sleeping and low energy Weight: 08/01/22 15:03 08/07/22 19:07 10/02/22 12:53 03/08/23 10:15 04/07/23 13:58 12/06/04/23 06/08/23 09:11 06/21/23 07:44 01/21/24 12:30 Weight 157 lb (71.2 kg) 162 lb 9.6 oz (73.8 kg) 154 lb 12.8 oz (70.2 kg) 155 lb 6.4 oz (70.5 kg) 146 lb 9.6 oz (66.5 kg) 147 lb (66.7 kg) 149 lb 4.8 oz (67.7 kg) 149 lb (67.6 kg) 148 lb (67.1 kg) 149 lb 7.6 oz (67.8 kg) Recent Labs: CBC: WBC (k/uL) Date Value 06/04/2023 6.02 05/04/2023 5.28 Hematocrit (%) Date Value 06/04/2023 37.9 MCV (fL) Date Value 06/04/2023 93.8 Platelet Count (k/uL) Date Value 06/04/2023 150 NEUT % (%) Date Value 03/13/2019 61.1 Lymphocytes % (%) Date Value 05/04/2023 42.4 Hepatic Function Panel: Albumin (g/dL) Date Value 09/20/2023 4.1 Bilirubin, Total (mg/dL) Date Value 09/20/2023 0.5 Bilirubin, Conjug (mg/dL) Date Value 09/26/2013 <0.2 Alkaline Phosphatase (U/L) Date Value 09/20/2023 68 AST (U/L) Date Value 09/20/2023 17 ALT (U/L) Date Value 09/20/2023 16 Protein, Total (g/dL) Date Value 09/20/2023 6.9 PHYSICAL EXAMINATION General Appearance: alert, oriented x 3, Eyes: No icterus or conjunctival pallor.. Oropharynx: dentition is poor with multiple missing teeth and some gingivitis Lungs: breath sounds clear to auscultation bilaterally Heart: regular rate and rhythm, no murmurs or gallops. Abdomen: Not distended. Normal bowel sounds. Soft, tender to deep palpation in LUQ No masses or organomegaly.surgica l scars present Extremities: no cyanosis or edema. Skin: no rashes or lesions Lilo Banegas MD Gastroenterology, Hepatology AND Nutrition Fellow, PGY 4 Digestive Diseases and Surgery [place] I saw and evaluated the patient with Hisham Makenzie, MD on 07/01/2024 and agree with the assessment and plan as outlined with the following exceptions: None. Type 2 SBS. Micronutrient deficiencies, malabsorption, and SIBO are primary symptoms currently. Will re-assess micronutrient labs and restart supplements, treat SIBO. Based on deficiency profile, options will likely be either individual prescriptions (some are covered) vs paying out of pocket for a high dose bariatric formulation that she could take once a day. From a practical perspective, the latter option m (more content not included)... Normal [facility] COPPER BLOODon 07-01-2024 Copper [Mass/Vol] 60 ug/dL Low 80-155 [facility] Comment on above: Order Comment: Nazanin pendleton Type: BLOOD SPECIMENOrdering Facility: [facility] Address: [address] [place] [address] Result Comment: This test was developed, and its performance characteristics determined by the [facility] Department of Pathology and Laboratory Medicine. It has not been cleared or approved by the FDA. The [facility] Department of Pathology and Laboratory Medicine is regulated under CLIA as qualified to perform high-complexity testing. This test is used for clinical purposes. It should not be regarded as investigational or for research. Performed By: #### C ANNIE, 5763-8 ####[facility] LABCLIA [id number] [place] [address] [place] CRP SerPl-mCncon 07-01-2024 CRP [Mass/Vol] mg/L Normal <0.9 [facility] Comment on above: Order Comment: Nazanin pendleton Type: BLOOD SPECIMENOrdering Facility: [facility] Address: [address] [place] [address] Performed By: #### 2 284-8, 2276-4, 20455-3, 2132-9, 1987- ####[facility] LABCLIA [id number] [place] [address] [place] Comprehensive metabolic 2000 panelon 07-01-2024 Albumin [Mass/Vol] 4.5 g/dL 3.9 - 4.9 g/dL [facility] ALP [Catalytic activity/Vol] 89 U/L 34 - 123 U/L [facility] ALT [Catalytic activity/Vol] 23 U/L 7 - 38 U/L [facility] Anion gap [Moles/Vol] 12 mmol/L 8 - 15 mmol/L [facility] AST [Catalytic activity/Vol] 28 U/L 13 - 35 U/L [facility] Bilirubin [Mass/Vol] 0.9 mg/dL 0.2 - 1 .3 mg/dL [facility] Calcium [Mass/Vol] 9.6 mg/dL 8.5 - 10. 2 mg/dL [facility] Chloride [Moles/Vol] 103 mmol/L 98 - 10 7 mmol/L [facility] CO2 [Moles/Vol] 23 mmol/L 22 - 30 mmol/L [facility] Creatinine [Mass/Vol] 0.67 mg/dL 0.58 - 0.96 mg/dL [facility] GFR/1.73 sq M.predicted among non-blacks MDRD (S/P/Bld) [Vol rate/Area] 111 mL/min/{1.73_m2} - PINF [facility] Comment on above: Estimated Glomerular Filtration Rate (eGFR) is calculated using the 2020 CKD-EPI creatinine equation. This equation utilizes serum creatinine, sex, and age as parameters. The creatinine assay has traceable calibration to isotope dilution-mass spectrometry. Refer to KDIGO guidelines for clinical interpretation. In patients with unstable renal function, e.g. those with acute kidney injury, the eGFR may not accurately reflect actual GFR. Glucose [Mass/Vol] 79 mg/dL 74 - 99 mg/dL [facility] Comment on above: The [place] Diabete s Association (ADA) provides guidance for cutoff values for fasting glucose and random glucose. The ADA defines fasting as no caloric intake for at least 8 hours. Fasting plasma glucose results between 100 to 125 mg/dL indicate increased risk for diabetes (prediabetes). Fasting plasma glucose results greater than or equal to 126 mg/dL meet the criteria for diagnosis of diabetes. In the absence of unequivocal hyperglycemia, results should be confirmed by repeat testing. In a patient with classic symptoms of hyperglycemia or hyperglycemic crisis, random plasma glucose results greater than or equal to 200 mg/dL meet the criteria for diagnosis of diabetes. Reference: Standards of Medical Care in Diabetes 2016, [place] Diabetes Association. Diabetes Care. 2016.39(Suppl 1). Interpretation and review of laboratory results Abnormal [facility] Potassium [Moles/Vol] 3.6 mmol/L Low 3.7 - 5.1 mmol/L [facility] Protein [Mass/Vol] 7 g/dL 6.3 - 8.0 g/dL Cl [facility] Sodium [Moles/Vol] 138 mmol/L 136 - 144 mmol/L [facility] Urea nitrogen [Mass/Vol] 10 mg/dL 7 - 21 mg/d L [facility] Albumin [Mass/Vol] 4.5 g/dL Normal 3.9-4.9 [facility] Comment on above: Order Comment: Speci men Type: BLOOD SPECIMENOrdering Facility: [facility] Address: [address] [place] [address] Performed By: #### 2 284-8, 2276-4, 20044-9, 2132-01, 1987-09 ####[facility] LABCLIA [id number] [place] [address] [place] ALP [Catalytic activity/Vol] 89 U/L Normal 34-123 [facility] Comment on above: Order Comment: Speci men Type: BLOOD SPECIMENOrdering Facility: [facility] Address: [address] [place] [address] Performed By: #### 2 284-8, 6-4, 52284-1, 2132-01, 1987-09 ####[facility] LABIA [id number] [place] [address] [place] ALT [Catalytic activity/Vol] 23 U/L Normal 7-38 [facility] Comment on above: Order Comment: Speci men Type: BLOOD SPECIMENOrdering Facility: [facility] Address: [address] [place] [address] Performed By: #### 2 284-8, 2276-4, 51827-8, 2132-01, 1987-09 ####[facility] LABCLIA [id number] [place] [id number] [place] Anion gap [Moles/Vol] 12 mmol/L Normal 8-15 [facility] Comment on above: Order Comment: Speci men Type: BLOOD SPECIMENOrdering Facility: [facility] Address: [address] [place] [address] Performed By: #### 2 284-8, 2276-4, 38014-5, 2132-01, 1987-09 ####[facility] LABCLIA [id number] [place] [address] [place] AST [Catalytic activity/Vol] 28 U/L Normal 13-35 [facility] Comment on above: Order Comment: Speci men Type: BLOOD SPECIMENOrdering Facility: [facility] Address: [address] [place] [address] Performed By: #### 2 284-8, 2276-4, 66642-3, 2132-01, 1987-09 ####[facility] LABCLIA [id number] [place] [address] [place] Bilirubin [Mass/Vol] 0.9 mg/dL Normal 0.2-1.3 [facility] Comment on above: Order Comment: Speci men Type: BLOOD SPECIMENOrdering Facility: [facility] Address: [address] [place] [address] Performed By: #### 2 284-8, 2276-4, 93513-2, 2132-01, 1987-09 ####[facility] LABCLIA [id number] [place] [address] [place] Calcium [Mass/Vol] 9.6 mg/dL Normal 8.5-10.2 [facility] Comment on above: Order Comment: Speci men Type: BLOOD SPECIMENOrdering Facility: [facility] Address: [address] [place] [address] Performed By: #### 2 284-8, 2276-4, 19881-1, 2132-01, 1987-09 ####[facility] LABCLIA [id number] [place] [id number] [place] Chloride [Moles/Vol] 103 mmol/L Normal 98-107 [facility] Comment on above: Order Comment: Speci men Type: BLOOD SPECIMENOrdering Facility: [facility] Address: [address] [place] [address] Performed By: #### 2 284-8, 2276-4, 78479-8, 2132-01, 1987-09 ####[facility] LABIA [id number] [place] [address] [place] CO2 [Moles/Vol] 23 mmol/L Normal 22-30 [facility] Comment on above: Order Comment: Speci men Type: BLOOD SPECIMENOrdering Facility: [facility] Address: [address] [place] [address] Performed By: #### 2 284-8, 2276-4, 92101-1, 2132-01, 1987-09 ####[facility] LABIA [id number] [place] [address] [place] Creatinine [Mass/Vol] 0.67 mg/dL Normal 0.58-0.96 [facility] Comment on above: Order Comment: Speci men Type: BLOOD SPECIMENOrdering Facility: [facility] Address: [address] [place] [address] Performed By: #### 2 284-8, 2276-4, 77598-9, 2132-01, 1987-09 ####[facility] [id number] [place] [id number] [place] Creatinine and Glomerular filtration rate.predicted panel (S/P/Bld) 111 mL/min/1.73m??? Normal >=60 [facility] Comment on above: Order Comment: Speci men Type: BLOOD SPECIMENOrdering Facility: [facility] Address: [address] [place] [address] Result Comment: Eve mated Glomerular Filtration Rate (eGFR) is calculated using the 2020 CKD-EPI creatinine equation. This equation utilizes serum creatinine, sex, and age as parameters. The creatinine assay has traceable calibration to isotope dilution-mass spectrometry. Refer to KDIGO guidelines for clinical interpretation. In patients with unstable renal function, e.g. those with acute kidney injury, the eGFR may not accurately reflect actual GFR. Performed By: #### 2 284-8, 2276-4, 13889-3, 2132-01, 1987-09 ####[facility] LABCLIA [id number] [address] [address] [place] Glucose [Mass/Vol] 79 mg/dL Normal 74-99 [facility] Comment on above: Order Comment: Speci men Type: BLOOD SPECIMENOrdering Facility: [facility] Address: [address] [place] [address] Result Comment: The [place] Diabetes Association (ADA) provides guidance for cutoff values for fasting glucose and random glucose. The ADA defines fasting as no caloric intake for at least 8 hours. Fasting plasma glucose results between 100 to 125 mg/dL indicate increased risk for diabetes (prediabetes). Fasting plasma glucose results greater than or equal to 126 mg/dL meet the criteria for diagnosis of diabetes. In the absence of unequivocal hyperglycemia, results should be confirmed by repeat testing. In a patient with classic symptoms of hyperglycemia or hyperglycemic crisis, random plasma glucose results greater than or equal to 200 mg/dL meet the criteria for diagnosis of diabetes. Reference: Standards of Medical Care in Diabetes 2016, [place] Diabetes Association. Diabetes Care. 2016.39(Suppl 1). Performed By: #### 2 284-8, 2276-4, 00485-2, 2132-01, 1987-09 ####[facility] LABCLIA [id number] [address] [address] [place] Potassium [Moles/Vol] 3.6 mmol/L Low 3.7-5.1 [facility] Comment on above: Order Comment: Nazanin pendleton Type: BLOOD SPECIMENOrdering Facility: [facility] Address: [address] [place] [address] Performed By: #### 2 284-8, 2276-4, 39438-3, 2132-01, 1987-09 ####[facility] LABCLIA [id number] [address] [address] [place] Protein [Mass/Vol] 7.0 g/dL Normal 6.3-8.0 [facility] Comment on above: Order Comment: Speci men Type: BLOOD SPECIMENOrdering Facility: [facility] Address: [address] [place] [address] Performed By: #### 2 284-8, 2276-4, 14248-0, 2132-01, 1987-09 ####[facility] LABCLIA [id number] [place] [id number] [place] Sodium [Moles/Vol] 138 mmol/L Normal 136-144 [facility] Comment on above: Order Comment: Speci men Type: BLOOD SPECIMENOrdering Facility: [facility] Address: [address] [place] [address] Performed By: #### 2 284-8, 2276-4, 81840-7, 2132-01, 1987-09 ####[facility] LABIA [id number] [place] [id number] [place] Urea nitrogen [Mass/Vol] 10 mg/dL Normal 7-21 [facility] Comment on above: Order Comment: Speci men Type: BLOOD SPECIMENOrdering Facility: [facility] Address: [address] [place], [place] [address] Performed By: #### 2 284-8, 2276-4, 75520-1, 2132-01, 1987-09 ####[facility] LABIA [id number] [address] [address] [place] FERRITINon 07-01-2024 Ferritin [Mass/Vol] 160 ng/mL 14.7 - 2 05.1 ng/mL [facility] FOLATE, SERUMon 07-01-2024 Folate [Mass/Vol] 12.9 ng/mL 4.7 - PINF ng/mL [facility] Ferritin SerPl-mCncon 2024 Ferritin [Mass/Vol] 160.0 ng/mL Normal 14.7-205.1 [facility] Comment on above: Order Comment: Speci men Type: BLOOD SPECIMENOrdering Facility: [facility] Address: [address] [place] [address] Performed By: #### 2 284-8, 2276-4, 22406-8, 9, 1987-09 ####[facility] LABCLIA [id number] [address] [address] [place] Ferritin [Mass/Vol]on 2024 Interpretation and review of laboratory results Normal [facility] Folate SerPl-mCncon 07-01-19 Folate [Mass/Vol] 12.9 ng/mL Normal >4.7 [facility] Comment on above: Order Comment: Speci men Type: BLOOD SPECIMENOrdering Facility: [facility] Address: [address] [place] [address] Performed By: #### 2 284-8, 6-4, 56301-5, 2132-01, 1987-09 ####[facility] LABCLIA [id number] [place] [id number] [place] Folate [Mass/Vol]on 07-01-19 Interpretation and review of laboratory results Normal [facility] Iron and Iron binding capaci ty panelon 07-01-2024 Iron [Mass/Vol] 95 ug/dL Normal 41-186 [facility] Comment on above: Order Comment: Speci men Type: BLOOD SPECIMENOrdering Facility: [facility] Address: [address] [place] [address] Performed By: #### 5 0190-8, 58976-0, 2777-1, 3016-3 ####[facility]ORY[facility] [id number] [place] [id number] [place] Iron binding capacity [Mass/Vol] 277 ug/dL Normal 232-386 [facility] Comment on above: Order Comment: Speci men Type: BLOOD SPECIMENOrdering Facility: [facility] Address: [address] [place] [address] Performed By: #### 5 0190-8, 64607-3, 2777-1, 3016-3 ####[facility]ATORYCLIA [id number] [place] [id number] [place] Iron/TIBC [Molar ratio] 34.3 % Normal 20.0-55.0 C [facility] Comment on above: Order Comment: Speci men Type: BLOOD SPECIMENOrdering Facility: [facility] Address: [address] [place] [address] Performed By: #### 5 0190-8, 02796-7, 2777-1, 3016-3 ####[facility] LABORATORYIA [id number] [place] [id number] [place] Magnesium SerPl-mCncon 07-01 Magnesium [Mass/Vol] 1.3 mg/dL Low 1.7-2.3 [facility] Comment on above: Order Comment: Speci men Type: BLOOD SPECIMENOrdering Facility: [facility] Address: [address] [place] [address] Performed By: #### 5 0190-8, 05947-8, 2777-1, 3016-3 ####[facility] [id number] [place] [id number] [place] Methylmalonate SerPl-sCncon 07-01-2024 Methylmalonate [Moles/Vol] 3.21 umol/L High <=0.40 [facility] Comment on above: Order Comment: Speci [facility] Type: BLOOD SPECIMENOrdering Facility: [facility] Address: [address] [place] [address] Result Comment: This test was developed, and its performance characteristics determined by the [facility] Department of Pathology and Laboratory Medicine. It has not been cleared or approved by the FDA. The [facility] Department of Pathology and Laboratory Medicine is regulated under CLIA as qualified to perform high-complexity testing. This test is used for clinical purposes. It should not be regarded as investigational or for research. Performed By: #### 1 3964-2 ####[facility] LABCLIA [id number] ROMAN HECK [id number] [place], [place] [address] [place] Phosphate SerPl-mCncon 07-01 Phosphate [Mass/Vol] 3.0 mg/dL Normal 2.7-4.8 [facility] Comment on above: Order Comment: Speci men Type: BLOOD SPECIMENOrdering Facility: [facility] Address: [address] [place] [address] Performed By: #### 5 0190-8, 14027-6, 277-1, 3015-3 ####[facility]ORYCLIA [id number] [place] [id number] [place] TSH SerPl-aCncon 07-01-2024 TSH Qn 1.510 m[IU]/L Normal 0.270-4.200 [facility] Comment on above: Order Comment: Speci men Type: BLOOD SPECIMENOrdering Facility: [facility] Address: [address] [place] [address] Result Comment: If t he patient is , TSH reference range varies by gestational period: First Trimester (weeks 9-12): 0.180-2.990 mIU/L Second Trimester: 0.110-3.980 mIU/L Third Trimester: 0.480-4.710 mIU/L Ty De La Torre et al. A Practical Approach for the Verifications and Determination of Site- and Trimester-Specific Reference Intervals for Thyroid Function tests in . Thyroid, 2019:29:3:412-420. Joseph Prasad, et al. 2017 Guidelines of the [place] Thyroid Association for the Diagnosis and Management of Thyroid Disease during and the . Thyroid, 2017:27:3:315-389. Performed By: #### 5 0190-8, 74857-8, 277-1, 3015-3 ####[facility]ATORYIA [id number] [place] [id number] [place] VITAMIN B1 (THIAMINE), WHOLE BLOODon 07-01-2024 Thiamine (Bld) [Moles/Vol] 144.8 nmol/L Normal 84.3-213.3 [facility] Comment on above: Order Comment: Speci men Type: BLOOD SPECIMEN [facility] Address: [address] [place] [address] Result Comment: This assay measures the concentration of thiamine diphosphate (TDP), the primary active form of vitamin B1. Approximately 90 percent of vitamin B1 present in whole blood is TDP. Thiamine and thiamine monophosphate, which comprise the remaining 10 percent, are not measured. This test was developed, and its performance characteristics determined by the [facility] Department of Pathology and Laboratory Medicine. It has not been cleared or approved by the FDA. The [facility] Department of Pathology and Laboratory Medicine is regulated under CLIA as qualified to perform high-complexity testing. This test is used for clinical purposes. It should not be regarded as investigational or for research. Performed By: #### B 1WB #### [facility] CLIA [id number] [address] [place] [address] [place] VITAMIN B6/PYRIDOXINon 07-01 VITAMIN B6 20.0 nmol/L Normal 20.0-125.0 [facility] Comment on above: Order Comment: Speci men Type: BLOOD SPECIMEN [facility] Address: [address] [place] [address] Result Comment: INTE RPRETIVE INFORMATION: Vitamin B6 (Pyridoxal 5-Phosphate) Pyridoxal 5'-phosphate measured in a specimen collected following an 8-hour or overnight fast accurately indicates vitamin B6 nutritional status. Non-fasting specimen concentration reflects recent vitamin intake. This test was developed and its performance characteristics determined by [facility] It has not been cleared or approved by the US Food and Drug Administration. This test was performed in a CLIA certified laboratory and is intended for clinical purposes. Performed By: [facility] [address] [place] [address] Net Repairer: Alejandro Downs MD, PhD CLIA Number: [id number] Performed By: #### B 1WB #### [facility] CLIA [id number] [address] [place] [address] [place] VITAMIN D 25 HYDROXYon 07-01 25-hydroxyvitamin D3 [Mass/Vol] 10.8 ng/mL Low 31.0 - 80.0 ng/mL [facility] Comment on above: Classification of 25 [place] Vitamin D status: Deficiency/Insufficiency: < or = 30 ng/ml. Sufficiency/Optimal Levels: 31-80 ng/mL Toxicity: > 100 ng/mL. Test performed by chemiluminescent immunoassay. VITAMIN Kannan 07-01-2024 VITAMIN K 0.22 nmol/L Normal 0.22-4.88 [facility] Comment on above: Order Comment: Speci men Type: BLOOD SPECIMENOrdering Facility: [facility] Address: [address] [place] [address] Result Comment: INTE RPRETIVE INFORMATION: Vitamin K1, Serum Vitamin K concentration is reported as nanomoles per liter (nmol/L). To convert concentration to nanograms per milliliter (ng/mL), multiply the result by 0.45. This test was developed and its performance characteristics determined by [facility] [facility] [employer] It has not been cleared or approved by the [place] Food and Drug Administration. This test was performed in a CLIA certified laboratory and is intended for clinical purposes. Performed By: [facility] [address] [place] [address] Net Repairer: Alejandro Downs MD, PhD CLIA Number: [id number] Performed By: #### V ITK ####[facility]ITAL[facility] [id number] [place] [address] Vit A SerPl-mCncon 5 Retinol [Mass/Vol] 0.07 mg/L Low 0.30-1.20 [facility] Comment on above: Order Comment: Nazanin pendleton Type: BLOOD SPECIMENOrdering Facility: [facility] Address: [address] [place] [address] Result Comment: Reti nol greater than 0.3 mg/L is typically associated with adequate liver stores in adults, and is within normal limits for children. Retinol less than 0.10 mg/L may indicate depleted liver stores and severe deficiency. Test performed at [facility] in [place], [place]. This test was developed and its performance characteristics determined by [facility] [facility] [employer] It has not been cleared or approved by the [place] Food and Drug Administration. This test was performed in a CLIA certified laboratory and is intended for clinical purposes. Performed By: #### 2 923-1, 1823-4 ####[facility] LABCLIA [id number] [place] [address] [place] Vit B[facility] Cobalamin (Vitamin B12) [Mass/Vol] pg/mL Low 232-1245 [facility] Comment on above: Order Comment: Speci men Type: BLOOD SPECIMENOrdering Facility: [facility] Address: [address] [place] [address] Result Comment: Resu lt rechecked. Performed By: #### 2 284-8, 2276-4, 90544-4, 2132-9, 1987-09 ####[facility] LABIA [id number] [place] [address] [place] Zinc [facility] 07-01-2024 Zinc [Mass/Vol] 72 ug/dL Normal 60-120 [facility] Comment on above: Order Comment: Speci men Type: BLOOD SPECIMENOrdering Facility: [facility] Address: [address] [place] [address] Result Comment: This test was developed, and its performance characteristics determined by the [facility] Department of Pathology and Laboratory Medicine. It has not been cleared or approved by the FDA. The [facility] Department of Pathology and Laboratory Medicine is regulated under CLIA as qualified to perform high-complexity testing. This test is used for clinical purposes. It should not be regarded as investigational or for research. Performed By: #### C ANNIE, 5763-8 ####[facility] [id number] [address] [place] CNOVon 01-21-2024 CNOV Office Visit ([facility]) NIURKA ZHU ([id number]) 1980 F Date Time Provider Department 01/21/24 12:30 PM MAYANK ARIZMENDI [facility] During your visit today, we recorded the following information about you: Temperature Pulse Respiration Blood pressure 98.2 degrees 71/minute 18/minute 138/84 Weight 67.8 kg Mayank Arizmendi APRN.CNP 01/21/2024 12:53 PM Signed [facility] NOTE Subjective Niurka Zhu is a 43 year old year old who presents to [facility] today with complaint of Right upper tooth pain and facial swelling x2 days. Worsening from known broken tooth. Last treated for a tooth infection > 4 months ago per report. Denies headaches, fever, sore throat, cough, shortness of breath, chest pains, Nausea, vomiting, changes in bowel or bladder or skin rashes. Taking Tylenol and Ibuprofen as needed and this is not helping her symptoms. Aside from symptoms as described above, patient has no other complaints at this time. HPI: see above Review of Systems Constitutional: Negative for chills, fatigue and fever. HENT: Positive for facial swelling (Right cheek swelling). Negative for congestion, ear pain, postnasal drip, sinus pressure, sore throat and trouble swallowing. Known missing and broken teeth Eyes: Negative for pain, discharge and redness. Respiratory: Negative for cough, shortness of breath and wheezing. Cardiovascular: Negative for chest pain, palpitations and leg swelling. Gastrointestinal: Negative for diarrhea, nausea and vomiting. Genitourinary: Negative for dysuria, frequency and urgency. Skin: Negative for rash. Neurological: Negative for headaches. ALLERGIES Allergen Reactions Adhesive Rash, Itching Amoxicillin Hives Penicillins Hives Current Outpatient Medications on File Prior to Visit Medication Sig Vitamin E, dl, acetate, (VITAMIN E) 400 unit capsule Take 1 capsule by mouth once daily. ergocalciferol 50,000 unit capsule (VITAMIN D2, DRISDOL) Take 1 capsule by mouth three times a week. vit A-vit D3-vit E-vit K1 (DEKAS ESSENTIAL) 600 mcg-50 mcg- 101 mg-1,000mcg cap Take 1 capsule by mouth once daily. magnesium lactate ER (MAGTAB) 84 mg TbER Take 2 pills three times daily after meals and 3 pills at bedtime for total of 9 pills/day. Syringe with Needle, Disp, 3 mL 25 gauge x 1 1 Syringe once every month. One syringe as directed for Vitamin B12 injection as ordered. cyanocobalamin 1,000 mcg/mL Inject 1 mL intramuscularly once every month. ggmrxl-amgwjxea-webv ase (CREON) 24,000-76,000 -120,000 unit delayed release capsule Take 2 capsules by mouth with meals. Take 1 capsule by mouth with snack. Formulary substitute for Viokase. predniSONE (DELTASONE) 20 mg tablet 1 tablet 3 times daily for 3 days then 1 tablet twice daily for 2 days then 1 tablet daily for 2 days then half a tablet p.o. daily for 1 day loperamide (IMODIUM A-D) 2 mg cap(s) Take 1 capsule by mouth before meals and at bedtime. iron polysaccharide complex (FERREX 150) 150 mg iron capsule Take 1 capsule by mouth once daily. cyanocobalamin (VITAMIN B-12) 1,000 mcg/mL Inject 1 mL intramuscularly once every month. Then resume monthly 1 mL injections for 2 months. Administer at [facility] pyridoxine, vitamin B6, (VITAMIN B6) 50 mg tablet Take 2 tablets by mouth once daily. No current facility-administere d medications on file prior to visit. 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 Intestinal Malabsorption Hypomagnesemia Surgery, Elective Moderate Protein Malnutrition (Hcc) Severe Protein-Calorie Malnutrition (Hcc) Protein C Deficiency (Hcc) Protein S Deficiency (Hcc) Hypertension, Essential Vitamin D Deficiency Vitamin B12 Deficiency Diarrhea Hypokalemia Social History Tobacco Use Smoking status: Former Current packs/day: 0.00 Average packs/day: 1.5 packs/day for 13.0 years (19.5 ttl pk-yrs) Types: Cigarettes Start date: 08/16/2000 Quit date: 08/16/2013 Years since quittin.4 Smokeless tobacco: Never Vaping Use Vaping status: current everyday user Substances: Nicotine Substance Use Topics Alcohol use: No Comment: currently does not drink Drug use: Yes Types: Marijuana Objective BP 138/84 Pulse 71 Temp 36.8 ?C (98.2 ?F) (Tympanic) Resp 18 Wt 67.8 kg (149 lb 7.6 oz) LMP 05/03/2023 (Approximate) SpO2 98% BMI 25.66 kg/m? Physical Exam Vitals reviewed. Constitutional: General: She is not in acute distress. Appearance: Normal appearance. She is not ill-appearing or toxic-appearing. HENT: Head: Normocephalic and atraumatic. Right Ear: Tympanic membrane, ear canal and external ear normal. Left Ear: Tympanic membrane, ear canal and external ear normal. Nose: Nose normal. Mouth/Throat: Mouth: Mucous membranes are moist. Dentition: (more content not included)... Normal [facility] Chlamydia trachomatis rRNA d etection by probe and target amplification methodOrdered By: Francoise Brar on 08-28-2023 C. trachomatis rRNA DAVI+probe Ql (Unsp spec) Negative Negative [facility] Gram stain for investigation of transfusion reactionOrdered By: Francoise Brar on 08-28-2023 Microscopic observation Gram stain Nom (Unsp spec) [facility] Laboratory - Microbiology an d Antimicrobial susceptibilityOrdered By: Francoise Brar on 08-28-2023 N. gonorrhoeae DNA DAVI+probe Ql (Unsp spec) Negative Negative [facility] Comment on above: Performed at: =[address] [id number] Director: Mariana Wilkins MD, Phone: [phone] No Panel InformationOrdered By: Francoise Brar on 08-28-2023 Genital Culture G. vaginalis (Presumptive) [facility] No Panel Informationon 08-27 POC Bacterial Vaginitis (Rapid) Negative [facility] POC Trichomonas (Rapid) Negative [facility] Basic metabolic 2000 panelon 06-21-2023 Anion gap [Moles/Vol] 11 mmol/L 9 - 18 mmol/L [facility] Calcium [Mass/Vol] 9.8 mg/dL 8.5 - 10. 2 mg/dL [facility] Chloride [Moles/Vol] 102 mmol/L 97 - 10 5 mmol/L [facility] CO2 [Moles/Vol] 25 mmol/L 22 - 30 mmol/L [facility] Creatinine [Mass/Vol] 0.67 mg/dL 0.58 - 0.96 mg/dL [facility] [facility] Estimated Glomerular Filtration Rate 112 mL/min/1.73m >=60 mL/min/1.73m [facility] Glucose [Mass/Vol] 93 mg/dL 74 - 99 mg/dL [facility] Potassium [Moles/Vol] 3.8 mmol/L 3.7 - 5.1 mmol/L [facility] Sodium [Moles/Vol] 138 mmol/L 136 - 144 mmol/L [facility] Urea nitrogen [Mass/Vol] 10 mg/dL 7 - 21 mg/d L [facility] MAGNESIUM BLDon 06-21-2023 Magnesium [Mass/Vol] 1.4 mg/dL Low 1.7 - 2 .3 mg/dL [facility] PHOSPHORUS INORGANICon 06-21 Phosphate [Mass/Vol] 3.7 mg/dL 2.7 - 4 .8 mg/dL [facility] XR Hand - left PA and Latera l and Obliqueon 06-10-2023 IMPRESSION: No osseous abnormality. Hearing Impaired Teacher: TACOS Transcribe Date/Time: Jun 10 2023 6:28A Dictated by : WINSOME ORTEGA MD This examination was interpreted and the report reviewed and electronically signed by: WINSOME ORTEGA MD on Jun 10 2023 6:28AM [facility] RAD[facility] * * *Final Report* * * DATE OF EXAM: Jun 08 2023 9:49AM RNX [id number] - XR HAND 3V PA/LAT/OBL LT / PROCEDURE REASON: Left hand pain * * * * Physician Interpretation * * * * XR HAND 3V PA/LAT/OBL LT Ordering Physician: YUNIOR SINCLAIR LEFT HAND 3 VIEWS Clinical Statement: Pain and swelling FINDINGS: No acute fracture or dislocation. The osseous structures are intact. The alignment is normal. No erosions or significant degenerative change. [facility] RADIOLOG[facility] Provider, [facility] [place] - 06/10/2023 * * *Final Report* * * DATE OF EXAM: Jun 08 2023 9:49AM RNX [id number] - XR HAND 3V PA/LAT/OBL LT / PROCEDURE REASON: Left hand pain * * * * Physician Interpretation * * * * XR HAND 3V PA/LAT/OBL LT Ordering Physician: YUNIOR SINCLAIR LEFT HAND 3 VIEWS Clinical Statement: Pain and swelling FINDINGS: No acute fracture or dislocation. The osseous structures are intact. The alignment is normal. No erosions or significant degenerative change. IMPRESSION IMPRESSION: No osseous abnormality. Hearing Impaired Teacher: PSCB Transcribe Date/Time: Jun 10 2023 6:28A Dictated by : WINSOME ORTEGA MD This examination was interpreted and the report reviewed and electronically signed by: WINSOME ORTEGA MD on Jun 10 2023 6:28AM EST [facility] XR Hand - left PA and Latera l and ObliqueOrdered By: [facility] on 06-10-2023 [facility] CNOVon 06-08-2023 CNOV Office Visit ([facility]) NIURKA ZHU ([id number]) 1980 F Date Time Provider Department 06/08/23 8:45 AM YUNIOR SINCLAIR [facility] During your visit today, we recorded the following information about you: Temperature Pulse Respiration Blood pressure 98.2 degrees 58/minute 16/minute 107/77 Weight 67.6 kg Yunior Sinclair MD 06/08/2023 9:40 AM Signed Niurka Viola Marko is a 43 year old female who [...] pain 01/11/2014 Depression DVT (deep venous thrombosis) ([facility]) July 2013 Hypertension, essential 01/13/2018 Low blood magnesium 03/02/2016 Protein C deficiency (HCC) Protein S deficiency (HCC) S/P cholecystectomy SBO (small bowel obstruction) ([facility]) 05/25/2016 Short bowel syndrome ACTIVE PROBLEM LIST [...] hours. (Patient not taking: Reported on 04/07/2023) Brompheniramine-Pseu doeph-DM (BROMFED DM) 2-30-10 mg/5 mL syrup Take [...] meals. (Patient not taking: Reported on 08/07/2022) 57477 mL 2 enoxaparin (LOVENOX) 100 mg/mL syrg Inject 0.7 mL subcutaneously q 12 HR. (Patient not taking: Reported on 04/07/2023) 60 Syringe 5 vitamin A (AQUASOL A) 10,000 unit capsule Take 1 capsule by mouth twice daily. 60 capsule 2 ergocalciferol 50,000 unit capsule (VITAMIN D2, DRISDOL) Take 1 capsule by mouth two times a week. 8 capsule 2 HYDROcodone-acetamin ophen (NORCO) 5-325 mg per tablet Take 1 tablet by mouth every 8 hours as needed for pain. (Patient not taking: Reported on 07/02/2022) 12 tablet 0 oxyCODONE-acetaminop hen (PERCOCET) 5-325 mg tablet Take 1 tablet [...] Administer at [facility] 3 mL 4 diphenoxylate-atropi ne (LOMOTIL) 2.5-0.025 mg per tablet Take 1 [...] on 08/01/2022) 45 tablet 0 No current facility-administere d medications for this visit. Social History Tobacco Use Smoking status: Former Packs/day: 1.50 Years: 13.00 Additional pack years: 0.00 Total pack years: 19.50 Types: Cigarettes Quit date: 08/16/2013 Years since quittin.8 Smokeless tobacco: Never Vaping Use Vaping Use: current everyday user Substances: (more content not included)... [facility] XR HAND 3V PA/LAT/OBL LTon 0 06-08-2023 XR HAND 3V PA/LAT/OBL LT * * *Final Repo rt* * * DATE OF EXAM: Jun 08 2023 9:49AM RNX [id number] - XR HAND 3V PA/LAT/OBL LT / PROCEDURE REASON: Left hand pain * * * * Physician Interpretation * * * * XR HAND 3V PA/LAT/OBL LT Ordering Physician: YUNIOR SINCLAIR LEFT HAND 3 VIEWS Clinical Statement: Pain and swelling FINDINGS: No acute fracture or dislocation. The osseous structures are intact. The alignment is normal. No erosions or significant degenerative change. IMPRESSION: No osseous abnormality. Hearing Impaired Teacher: PSCB Transcribe Date/Time: Jun 10 2023 6:28A Dictated by : WINSOME ORTEGA MD This examination was interpreted and the report reviewed and electronically signed by: WINSOME ORTEGA MD on Jun 10 2023 6:28AM EST [id number] CN [facility] XR Hand - left PA and Latera l and Obliqueon 06-08-2023 Radiology Study observation (narrative) [facility] Alpha tocopherol [Mass/Vol]o n 06-07-2023 Beta+gamma tocopherol [Mass/Vol] 0.5 mg/L 0.3 - 3.2 mg/L [facility] VITAMIN A/RETINOLon 06-07-19 Retinol [Mass/Vol] 0.16 mg/L Low 0.30 - 1. 20 mg/L [facility] VITAMIN B6/PYRIDOXINon 06-07 Pyridoxine [Mass/Vol] 42.6 nmol/L 20.0 - 125.0 nmol/L [facility] VITAMIN E/TOCOPHEROLon 06-07 Alpha tocopherol [Mass/Vol] 4.5 mg/L Low 6.0 - 23.0 mg/L [facility] METHYLMALONIC ACIDon 024 Methylmalonate [Moles/Vol] 5.48 umol/L High <=0.40 umol/L [facility] ZINC BLDon 06-05-2023 Zinc [Mass/Vol] 63 ug/dL 60 - 120 ug/dL [facility] CBC panel Auto (Bld)on 06-04 Erythrocyte distribution width (RBC) [Ratio] 12.9 % 11.5 - 15.0 % [facility] Hematocrit (Bld) [Volume fraction] 37.9 % 36.0 - 46.0 % [facility] Hemoglobin (Bld) [Mass/Vol] 12.3 g/dL 11.5 - 15.5 g/dL [facility] MCH (RBC) [Entitic mass] 30.4 pg 26.0 - 34.0 pg [facility] MCHC (RBC) [Mass/Vol] 32.5 g/dL 30.5 - 36.0 g/dL [facility] MCV (RBC) [Entitic vol] 93.8 fL 80.0 - 100.0 fL [facility] Nucleated RBC (Bld) [#/Vol] <0.01 k/uL [facility] Platelet mean volume (Bld) [Entitic vol] 10.8 fL 9.0 - 12.7 fL [facility] Platelets (Bld) [#/Vol] 150 10*3/uL 150 - 400 k /uL [facility] RBC (Bld) [#/Vol] 4.04 10*6/uL 3.90 - 5.2 0 m/uL [facility] WBC (Bld) [#/Vol] 6.02 10*3/uL 3.70 - 11. 00 k/uL [facility] Comprehensive metabolic 2000 panelon 06-04-2023 Albumin [Mass/Vol] 4.0 g/dL 3.9 - 4.9 g/dL [facility] ALP [Catalytic activity/Vol] 82 U/L 34 - 123 U/L [facility] ALT [Catalytic activity/Vol] 23 U/L 7 - 38 U/L [facility] Anion gap [Moles/Vol] 10 mmol/L 9 - 18 mmol/L [facility] AST [Catalytic activity/Vol] 25 U/L 13 - 35 U/L [facility] Bilirubin [Mass/Vol] 0.6 mg/dL 0.2 - 1 .3 mg/dL [facility] Calcium [Mass/Vol] 8.9 mg/dL 8.5 - 10. 2 mg/dL [facility] Chloride [Moles/Vol] 104 mmol/L 97 - 10 5 mmol/L [facility] CO2 [Moles/Vol] 26 mmol/L 22 - 30 mmol/L [facility] Creatinine [Mass/Vol] 0.73 mg/dL 0.58 - 0.96 mg/dL [facility] Estimated Glomerular Filtration Rate 105 mL/min/1.73m >=60 mL/min/1.73m [facility] Glucose [Mass/Vol] 89 mg/dL 74 - 99 mg/dL [facility] Potassium [Moles/Vol] 3.9 mmol/L 3.7 - 5.1 mmol/L [facility] Protein [Mass/Vol] 6.3 g/dL 6.3 - 8.0 g/dL [facility] Sodium [Moles/Vol] 140 mmol/L 136 - 144 mmol/L [facility] Urea nitrogen [Mass/Vol] 12 mg/dL 7 - 21 mg/d L [facility] FERRITIN Don 06-04-2023 Ferritin [Mass/Vol] 71.4 ng/mL 14.7 - 2 05.1 ng/mL [facility] Iron and Iron binding capaci ty panelon 06-04-2023 Iron [Mass/Vol] 27 ug/dL Low 41 - 186 ug/dL [facility] Iron binding capacity [Mass/Vol] 316 ug/dL 232 - 386 ug/dL [facility] Iron/TIBC [Molar ratio] 8.5 % Low 15.0 - 57.0 % [facility] MAGNESIUM BLDon 06-04-2023 Magnesium [Mass/Vol] 1.2 mg/dL Low 1.7 - 2 .3 mg/dL [facility] PHOSPHORUS INORGANICon 06-04 Phosphate [Mass/Vol] 2.6 mg/dL Low 2.7 - 4 .8 mg/dL [facility] VITAMIN B12 BLOODon 06-04-19 Cobalamin (Vitamin B12) [Mass/Vol] Low 232 - 1,245 pg/mL [facility] VITAMIN D 25 HYDROXYon 06-04 25-hydroxyvitamin D3 [Mass/Vol] 20.4 ng/mL Low 31.0 - 80.0 ng/mL [facility] CBC W Auto Differential pane l (Bld)on 05-04-2023 Basophils (Bld) [#/Vol] 0.03 10*3/uL Normal <0.11 [facility] Comment on above: Order Comment: Speci men Type: BLOOD SPECIMEN Ordering Facility: [facility] Address: [place] [address] Performed By: #### 5 7021-8 #### [facility] CLIA [id number] [address] [place] [address] [place] Basophils/100 WBC (Bld) 0.6 % Normal [facility] Comment on above: Order Comment: Speci men Type: BLOOD SPECIMEN Ordering Facility: [facility] Address: [address] [place] [address] Performed By: #### 5 7021-8 #### [facility] CLIA [id number] [address] [place] [address] [place] Differential cell count method Nom (Bld) Auto Normal [facility] Comment on above: Order Comment: Speci men Type: BLOOD SPECIMEN Ordering Facility: [facility] Address: [address] [place] [address] Performed By: #### 5 7021-8 #### [facility] CLIA [id number] [address] [place] [address] [place] Eosinophils (Bld) [#/Vol] 0.18 10*3/uL Normal <0.46 [facility] Comment on above: Order Comment: Speci men Type: BLOOD SPECIMEN Ordering Facility: [facility] Address: [address] [place] [address] Performed By: #### 5 7021-8 #### [facility] CLIA [id number] [address] [place] [address] [place] Eosinophils/100 WBC (Bld) 3.4 % Normal [facility] Comment on above: Order Comment: Speci men Type: BLOOD SPECIMEN Ordering Facility: [facility] Address: [address] [place] [address] Performed By: #### 5 7021-8 #### [facility] CLIA [id number] [address] [place] [address] [place] Erythrocyte distribution width (RBC) [Ratio] 13.8 % Normal 11.5-15.0 [facility] Comment on above: Order Comment: Speci men Type: BLOOD SPECIMEN Ordering Facility: [facility] Address: [address] [place] [address] Performed By: #### 5 7021-8 #### [facility] CLIA [id number] [address] [place] [address] [place] Hematocrit (Bld) [Volume fraction] 34.6 % Low 36.0-46.0 [facility] Comment on above: Order Comment: Speci men Type: BLOOD SPECIMEN Ordering Facility: [facility] Address: [address] [place] [address] Performed By: #### 5 7021-8 #### [facility] CLIA [id number] [address] [place] [address] [place] Hemoglobin (Bld) [Mass/Vol] 11.3 g/dL Low 11.5-15.5 [facility] Comment on above: Order Comment: Speci men Type: BLOOD SPECIMEN Ordering Facility: [facility] Address: [address] [place] [address] Performed By: #### 5 7021-8 #### [facility] CLIA [id number] [address] [place] [address] [place] Immature granulocytes (Bld) [#/Vol] 10*3/uL Normal <0.10 [facility] Comment on above: Order Comment: Speci men Type: BLOOD SPECIMEN Ordering Facility: [facility] Address: [address] [place] [address] Performed By: #### 5 7021-8 #### [facility] CLIA [id number] [address] [place] [address] [place] Immature granulocytes/100 WBC (Bld) 0.2 % Normal [facility] Comment on above: Order Comment: Speci men Type: BLOOD SPECIMEN Ordering Facility: [facility] Address: [address] [place] [address] Performed By: #### 5 7021-8 #### [facility] CLIA [id number] [address] [place] [address] [place] Lymphocytes (Bld) [#/Vol] 2.24 10*3/uL Normal 1.00-4.00 [facility] Comment on above: Order Comment: Speci men Type: BLOOD SPECIMEN Ordering Facility: [facility] Address: [address] [place] [address] Performed By: #### 5 7021-8 #### [facility] CLIA [id number] [address] [place] [address] [place] Lymphocytes/100 WBC (Bld) 42.4 % Normal [facility] Comment on above: Order Comment: Speci men Type: BLOOD SPECIMEN Ordering Facility: [facility] Address: [address] [place] [address] Performed By: #### 5 7021-8 #### [facility] CLIA [id number] [address] [place] [address] [place] MCH (RBC) [Entitic mass] 30.3 pg Normal 26.0-34.0 [facility] Comment on above: Order Comment: Speci men Type: BLOOD SPECIMEN Ordering Facility: [facility] Address: [address] [place] [address] Performed By: #### 5 7021-8 #### [facility] CLIA [id number] [address] [place] [address] [place] MCHC (RBC) [Mass/Vol] 32.7 g/dL Normal 30.5-36.0 [facility] Comment on above: Order Comment: Speci men Type: BLOOD SPECIMEN Ordering Facility: [facility] Address: [address] [place] [address] Performed By: #### 5 7021-8 #### [facility] CLIA [id number] [address] [place] [address] [place] MCV (RBC) [Entitic vol] 92.8 fL Normal 80.0-100.0 [facility] Comment on above: Order Comment: Speci men Type: BLOOD SPECIMEN Ordering Facility: [facility] Address: [address] [place] [address] Performed By: #### 5 7021-8 #### [facility] CLIA [id number] [address] [place] [address] OF [place] Monocytes (Bld) [#/Vol] 0.36 10*3/uL Normal <0.87 [facility] Comment on above: Order Comment: Speci men Type: BLOOD SPECIMEN Ordering Facility: [facility] Address: [address] [facility] [address] Performed By: #### 5 7021-8 #### [facility] CLIA [id number] [address] [place] [address] [place] Monocytes/100 WBC (Bld) 6.8 % Normal [facility] Comment on above: Order Comment: Speci men Type: BLOOD SPECIMEN Ordering Facility: [facility] Address: [address] [place] [address] Performed By: #### 5 7021-8 #### [facility] CLIA [id number] [address] [place] [address] [place] Neutrophils (Bld) [#/Vol] 2.46 10*3/uL Normal 1.45-7.50 [facility] Comment on above: Order Comment: Speci men Type: BLOOD SPECIMEN Ordering Facility: [facility] Address: [address] [place] [address] Performed By: #### 5 7021-8 #### [facility] CLIA [id number] [address] [place] [address] [place] Neutrophils/100 WBC (Bld) 46.6 % Normal [facility] Comment on above: Order Comment: Speci men Type: BLOOD SPECIMEN Ordering Facility: [facility] Address: [address] [place] [address] Performed By: #### 5 7021-8 #### [facility] CLIA [id number] [address] [place] [address] [place] Nucleated RBC (Bld) [#/Vol] 10*3/uL Normal <0.01 [facility] Comment on above: Order Comment: Speci men Type: BLOOD SPECIMEN Ordering Facility: [facility] Address: [address] [place] [address] Performed By: #### 5 7021-8 #### [facility] CLIA [id number] [address] [place] [address] [place] Nucleated RBC/100 WBC (Bld) [Ratio] 0.0 /100 WBC Normal [facility] Comment on above: Order Comment: Speci men Type: BLOOD SPECIMEN Ordering Facility: [facility] Address: [address] [place] [address] Performed By: #### 5 7021-8 #### [facility] CLIA [id number] [address] [place], [place] [id number] [place] Platelet mean volume (Bld) [Entitic vol] 10.2 fL Normal 9.0-12.7 [facility] Comment on above: Order Comment: Speci men Type: BLOOD SPECIMEN Ordering Facility: [facility] Address: [address] [place] [address] Performed By: #### 5 7021-8 #### [facility] CLIA [id number] [address] [place] [address] [place] Platelets (Bld) [#/Vol] 152 10*3/uL Normal 150-400 [facility] Comment on above: Order Comment: Speci men Type: BLOOD SPECIMEN Ordering Facility: [facility] Address: [address] [place] [address] Performed By: #### 5 7021-8 #### [facility] CLIA [id number] [address] [place] [address] [place] RBC (Bld) [#/Vol] 3.73 10*6/uL Low 3.90-5.20 [facility] Comment on above: Order Comment: Speci men Type: BLOOD SPECIMEN Ordering Facility: [facility] Address: [address] [place] [address] Performed By: #### 5 7021-8 #### [facility] CLIA [id number] [address] [place] [address] [place] WBC (Bld) [#/Vol] 5.28 10*3/uL Normal 3.70-11.00 [facility] Comment on above: Order Comment: Speci men Type: BLOOD SPECIMEN Ordering Facility: [facility] Address: [address] [place] [address] Performed By: #### 5 7021-8 #### [facility] CLIA [id number] [address] [place] [address] [place] ABD/PEL W IVCONon 023 CT ABD/PEL W IVCON * * *Final Report* * * DATE OF EXAM: May 04 2023 6:49AM [facility] 0530 - CT ABD/PEL W IVCON / PROCEDURE REASON: Abdominal pain, acute, nonlocalized * * * * Physician Interpretation * * * * EXAMINATION: CT ABDOMEN AND PELVIS WITH IV CONTRAST CLINICAL HISTORY: Left-sided abdominal pain TECHNIQUE: CT of the abdomen and pelvis was performed using standard technique, scanning from just above the dome of the diaphragm to the symphysis pubis. MQ: CTAP_3 Contrast: IV: 100 ml of Isovue 370 : ml of CT Radiation dose: Integrated Dose-length product (DLP) for this visit = 312.89 mGy*cm. CT Dose Reduction Employed: Automated exposure control(AEC) and iterative recon COMPARISON: CT abdomen pelvis 01/03/2018. RESULT: Liver: No mass. Biliary: No bile duct dilation. Spleen: No mass. No splenomegaly. Pancreas: No mass or duct dilation. Adrenals: No mass. Kidneys: No hydronephrosis. GI tract: Post partial colectomy and small bowel resection. Dilated segment of small bowel at the anastomosis, likely secondary to denervation. There is diffuse colonic dilation to the level of the lower rectum. No transition identified. Lymph nodes: No abdominal or pelvic lymphadenopathy. Mesentery/Peritoneum : No ascites or mass. Retroperitoneum: No mass. Vasculature: Mild atherosclerotic changes of the abdominal aorta and its branches. Pelvis: IUD in the uterus. Tampon in the vagina. Bones/Soft Tissues: No significant finding. Lower thorax: Unremarkable. Clinical Trials Nurse (topogram) images: No additional findings. IMPRESSION: Diffuse colonic dilation and dilation of the small bowel at the surgical anastomosis. Hearing Impaired Teacher: PSCB Transcribe Date/Time: May 04 2023 6:52A Dictated by : KOTA OROZCO MD This examination was interpreted and the report reviewed and electronically signed by: KOTA OROZCO MD on May 04 2023 6:58AM EST [id number] CN Normal [facility] Comprehensive metabolic 2000 panelon 05-04-2023 Albumin [Mass/Vol] 3.1 g/dL Low 3.2-5.0 [facility] Comment on above: Order Comment: Speci men Type: BLOOD SPECIMEN Ordering Facility: [facility] Address: [address] [place] [address] Performed By: #### 2 4323-8 #### [facility] CLIA [id number] [address] [place] [address] [place] ALP [Catalytic activity/Vol] 60 U/L Normal 45-117 [facility] Comment on above: Order Comment: Speci men Type: BLOOD SPECIMEN Ordering Facility: [facility] Address: [address] [place] [address] Performed By: #### 2 4323-8 #### [facility] CLIA [id number] [address] [place] [address] [place] ALT [Catalytic activity/Vol] 20 U/L Normal 13-61 [facility] Comment on above: Order Comment: Grahami men Type: BLOOD SPECIMEN Ordering Facility: [facility] Address: [address] [place] [address] Result Comment: Resu lts may be falsely depressed after the administration of Sulfasalazine and/or Sulfapyridine. Performed By: #### 2 4323-8 #### [facility] CLIA [id number] [address] [place] [address] [place] Anion gap [Moles/Vol] 4 mmol/L Low 5-16 [facility] Comment on above: Order Comment: Speci men Type: BLOOD SPECIMEN Ordering Facility: [facility] Address: [address] [place] [address] Performed By: #### 2 4323-8 #### [facility] CLIA [id number] [address] [place] [address] [place] AST [Catalytic activity/Vol] 18 U/L Normal 8-34 [facility] Comment on above: Order Comment: Speci men Type: BLOOD SPECIMEN Ordering Facility: [facility] Address: [address] [place] [address] Result Comment: Resu lts may be falsely depressed after the administration of Sulfasalazine and/or Sulfapyridine. Performed By: #### 2 4323-8 #### [facility] CLIA [id number] [address] [place] [address] [place] Bilirubin [Mass/Vol] 0.7 mg/dL Normal 0.2-1.0 [facility] Comment on above: Order Comment: Speci men Type: BLOOD SPECIMEN Ordering Facility: [facility] Address: [address] [place] [address] Performed By: #### 2 4323-8 #### [facility] CLIA [id number] [address] [place] [address] [place] Calcium [Mass/Vol] 8.4 mg/dL Low 8.5-10.5 [facility] Comment on above: Order Comment: Speci men Type: BLOOD SPECIMEN Ordering Facility: [facility] Address: [address] [place] [address] Performed By: #### 2 4323-8 #### [facility] CLIA [id number] [address] [place] [address] [place] Chloride [Moles/Vol] 108 mmol/L High 98-107 [facility] Comment on above: Order Comment: Speci men Type: BLOOD SPECIMEN Ordering Facility: [facility] Address: [address] [place] [address] Performed By: #### 2 4323-8 #### [facility] CLIA [id number] [address] [place] [address] [place] CO2 [Moles/Vol] 31 mmol/L Normal 21-32 [facility] Comment on above: Order Comment: Speci men Type: BLOOD SPECIMEN Ordering Facility: [facility] Address: [address] [place] [address] Performed By: #### 2 4323-8 #### [facility] CLIA [id number] [address] [place] [address] [place] Creatinine [Mass/Vol] 0.68 mg/dL Normal 0.51-0.95 [facility] Comment on above: Order Comment: Speci men Type: BLOOD SPECIMEN Ordering Facility: [facility] Address: [address] [place] [address] Result Comment: Gissel ents receiving either N-Acetylcysteine (NAC) or Metamizole prior to venipuncture, may have falsely depressed results. Performed By: #### 2 4323-8 #### [facility] CLIA [id number] [address] [place] [address] [place] Creatinine and Glomerular filtration rate.predicted panel (S/P/Bld) 112 mL/min/1.73m??? Normal >=60 [facility] Comment on above: Order Comment: Nazanin pendleton Type: BLOOD SPECIMEN Ordering Facility: [facility] Address: [address] [place] [address] Result Comment: Eve mated Glomerular Filtration Rate (eGFR) is calculated using the 2020 CKD-EPI creatinine equation. This equation utilizes serum creatinine, sex, and age as parameters. The creatinine assay has traceable calibration to isotope dilution-mass spectrometry. Refer to KDIGO guidelines for clinical interpretation. In patients with unstable renal function, e.g. those with acute kidney injury, the eGFR may not accurately reflect actual GFR. Performed By: #### 2 4323-8 #### [facility] CLIA [id number] [address] [place] [address] [place] Glucose [Mass/Vol] 87 mg/dL Normal 70-100 [facility] Comment on above: Order Comment: Nazanin pendleton Type: BLOOD SPECIMEN Ordering Facility: [facility] Address: [address] [place] [address] Result Comment: The [place] Diabetes Association (ADA) provides guidance for cutoff values for fasting glucose and random glucose. The ADA defines fasting as no caloric intake for at least 8 hours. Fasting plasma glucose results between 100 to 125 mg/dL indicate increased risk for diabetes (prediabetes). Fasting plasma glucose results greater than or equal to 126 mg/dL meet the criteria for diagnosis of diabetes. In the absence of unequivocal hyperglycemia, results should be confirmed by repeat testing. In a patient with classic symptoms of hyperglycemia or hyperglycemic crisis, random plasma glucose results greater than or equal to 200 mg/dL meet the criteria for diagnosis of diabetes. Reference: Standards of Medical Care in Diabetes 2016, [place] Diabetes Association. Diabetes Care. 2016.39(Suppl 1). Results may be falsely elevated after the administration of Sulfapyridine. Results may be falsely depressed after the administration of Sulfasalazine. Performed By: #### 2 4323-8 #### [facility] CLIA [id number] [address] [place] [address] [place] Potassium [Moles/Vol] 3.4 mmol/L Low 3.5-5.1 [facility] Comment on above: Order Comment: Speci men Type: BLOOD SPECIMEN Ordering Facility: [facility] Address: [address] [place] [address] Performed By: #### 2 4323-8 #### [facility] CLIA [id number] [address] [place] [address] [place] Protein [Mass/Vol] 5.9 g/dL Low 6.0-8.5 [facility] Comment on above: Order Comment: Speci men Type: BLOOD SPECIMEN Ordering Facility: [facility] Address: [address] [place] [address] Performed By: #### 2 4323-8 #### [facility] CLIA [id number] [address] [place] [address] [place] Sodium [Moles/Vol] 143 mmol/L Normal 136-145 [facility] Comment on above: Order Comment: Speci men Type: BLOOD SPECIMEN Ordering Facility: [facility] Address: [address] [place] [address] Performed By: #### 2 4323-8 #### [facility] CLIA [id number] [address] [place] [address] [place] Urea nitrogen [Mass/Vol] 16 mg/dL Normal 7-26 [facility] Comment on above: Order Comment: Speci men Type: BLOOD SPECIMEN Ordering Facility: [facility] Address: [address] [place] [address] Performed By: #### 2 4323-8 #### [facility] CLIA [id number] [address] [place] [address] [place] ED NOTEon 05-04-2023 ED NOTE HNO ID: [id number] Author: Didier Chiu, DOMINGO Service: Nursing Author Type: Registered Nurse Type: ED Notes Filed: 05/04/2023 4:31 AM Note Text: Pt c/o N/V and pelvic pain that radiates to the left flank that started a few weeks ago, but pt sts the pain has become worse over the last 3-4 days. Pt c/o frequency, urgency, and burning with urination. Hx of kidney stones (current stone on left side) and UTIs. Pt sts this does feel like a UTI, but that she has noticed her stool has recently smelled worse and appears greasy. Pt has short-gut syndrome. Has had her gallbladder removed. [facility] ED PROV NOTEon 05-04-2023 ED PROV NOTE HNO ID: [id number] Author: Anitha Pena MD Service: Emergency Medicine Author Type: Physician Type: ED Provider Notes Filed: 05/04/2023 7:28 AM Note Text: ED Provider Note Patient Name: Niurka Zhu : 1980 SERVICE DATE: 05/04/23 History Patient presents with: Abdominal Pain: Pt c/o intermittent left sided abd pain x several weeks, worse over the last week. Pt states (+) nausea, denies vomiting. States (+) urinary symptoms, increased frequency but does not feel like she can empty her bladder. 43-year-old female with a past medical history significant for small bowel obstruction status post resection and surgical intervention, DVTs, protein C and protein S deficiency, and depression who presents the emergency department for evaluation for abdominal pain. Patient states of normal abdominal pain for the last couple of days. She states pain has been progressively getting worse. She states tonight the pain is severe with left-sided flank pain. She does result came to the emergency department for evaluation. She endorses nausea and vomiting. She denies constipation. She also denies vaginal discharge and states that current time she is on her menses. Patient endorses fevers and chills. History provided by: Patient shaft sinker used: No PAST MEDICAL HISTORY Diagnosis Date Back pain [...] Last attempt to quit: 08/16/2013 Years since quittin.7 Smokeless tobacco: Never Substance and Sexual Activity Alcohol use: No Comment: currently does not drink Drug use: No Sexual activity: Yes ALLERGIES Allergen Reactions Adhesive Rash, Itching Amoxicillin Hives Penicillins Hives Review of Systems Constitutional: Positive for chills and fever. Negative for fatigue. HENT: Negative for ear discharge, ear pain, mouth sores, rhinorrhea, sinus pressure, sneezing, sore throat and tinnitus. Eyes: Negative for photophobia, discharge, itching and visual disturbance. Respiratory: Negative for cough, shortness of breath, wheezing and stridor. Cardiovascular: Negative for chest pain, palpitations and leg swelling. Gastrointestinal: Positive for abdominal pain, nausea and vomiting. Negative for abdominal distention, blood in stool, constipation and diarrhea. Endocrine: Negative for cold intolerance and heat intolerance. Genitourinary: Positive for flank pain and vaginal bleeding. Negative for dysuria, frequency, hematuria and vaginal discharge. Musculoskeletal: Negative for back pain, gait problem and joint swelling. Skin: Negative for color change, pallor and rash. Neurological: Negative for dizziness, syncope, weakness, light-headedness and headaches. Psychiatric/Behavior al: Negative for confusion, hallucinations, sleep disturbance and suicidal ideas. Physical Exam Vitals [05/04/23 0035] BP Pulse Temp Temp src Resp SpO2 Weight Height 134/78 64 36.7 ?C (98 ?F) Oral 16 98 % 66.7 kg (147 lb) 1.626 m (5' 4) Physical Exam Vitals and nursing note reviewed. Constitutional: General: She is not in acute distress. Appearance: She is not ill-appearing, toxic-appearing or diaphoretic. HENT: Head: Normocephalic and atraumatic. Right Ear: External ear normal. Left Ear: External ear normal. Nose: No congestion or rhinorrhea. Mouth/Throat: Mouth: Mucous membranes are moist. Pharynx: Oropharynx is clear. Eyes: General: Right eye: No discharge. Left eye: No discharge. Pupils: Pupils are equal, round, and reactive to light. Neck: Trachea: No tracheal deviation. Cardiovascular: Rate and Rhythm: Normal rate and regular rhythm. Heart sounds: Normal heart sounds. Pulmonary: Effort: No respiratory distress. Breath sounds: Normal breath sounds. No stridor. No wheezing. Abdominal: General: There is no distension. Palpations: There is no mass. Tenderness: There is abdominal tenderness in the periumbilical area and left lower quadrant. There is right CVA tenderness and left CVA tenderness. There is no guarding or rebound. Hernia: No hernia is present. There is no hernia in the umbilical area. Esther (more content not included)... Normal [facility] HCG Preg Ur Qlon 05-04-2023 HCG ( test) Ql (U) Negative Normal Negative [facility] Comment on above: Order Comment: Speci men Type: URINE SPECIMEN Ordering Facility: [facility] Address: [place] [address] Result Comment: This test is intended to aid in the early detection of . Very dilute urine samples, as indicated by a low specific gravity, may not contain corporate sales representative levels of hCG. This test detects intact hCG only. This test does not reliably detect hCG degradation products, including free-beta subunit and beta-core fragment. Therefore, this test may show reduced reactivity in urine after 8 weeks gestation. A number of conditions other than , including trophoblastic disease and certain non-trophoblastic neoplasms cause elevated levels of hCG. As with any assay employing mouse antibodies, the possibility exists for interference by human anti-mouse antibodies (HAMA) in the specimen. The test provides a presumptive diagnosis for . Performed By: #### 2 106-3 #### [facility] CLIA [id number] [address] [place] [address] [place] Urinalysis complete panel (U )on 05-04-2023 Bacteria LM.HPF (Urine sed) [#/Area] Few Abnormal None Seen [facility] Comment on above: Order Comment: Speci men Type: URINE SPECIMEN Ordering Facility: [facility] Address: [address] [place] [address] Performed By: #### 2 4356-8 #### [facility] CLIA [id number] [address] [place] [address] [place] Bilirubin Ql (U) Negative Normal Negative [facility] Comment on above: Order Comment: Speci men Type: URINE SPECIMEN Ordering Facility: [facility] Address: [address] [place] [address] Performed By: #### 2 4356-8 #### [facility] CLIA [id number] [address] [place] [address] OF [place] Clarity (Unsp spec) Clear Normal Clear [facility] Comment on above: Order Comment: Speci men Type: URINE SPECIMEN Ordering Facility: [facility] Address: [address] [place] [address] Performed By: #### 2 4356-8 #### [facility] CLIA [id number] [address] [place] [address] [place] Color (U) Yellow Normal Yellow [facility] Comment on above: Order Comment: Speci men Type: URINE SPECIMEN Ordering Facility: [facility] Address: [address] [place] [address] Performed By: #### 2 4356-8 #### [facility] CLIA [id number] [address] [place] [address] [place] Epithelial cells LM.HPF (Urine sed) [#/Area] Few Normal [facility] Comment on above: Order Comment: Speci men Type: URINE SPECIMEN Ordering Facility: [facility] Address: [address] [place] [address] Performed By: #### 2 4356-8 #### [facility] CLIA [id number] [address] [place] [address] [place] Glucose Test strip (U) [Mass/Vol] Negative Normal Negative [facility] Comment on above: Order Comment: Speci men Type: URINE SPECIMEN Ordering Facility: [facility] Address: [address] [place] [address] Performed By: #### 2 4356-8 #### [facility] CLIA [id number] [address] [place] [address] STATES [place] Hemoglobin Ql (U) 3+ Abnormal Negative [facility] Comment on above: Order Comment: Speci men Type: URINE SPECIMEN Ordering Facility: [facility] Address: [address] [place] [address] Performed By: #### 2 4356-8 #### [facility] CLIA [id number] [address] [place] [address] OF [place] Ketones Ql (U) Trace Abnormal Negative [facility] Comment on above: Order Comment: Speci men Type: URINE SPECIMEN Ordering Facility: [facility] Address: [address] [place] [address] Performed By: #### 2 4356-8 #### [facility] CLIA [id number] [address] [place] [address] [place] Leukocyte esterase Test strip Ql (U) Trace Abnormal Negative [facility] Comment on above: Order Comment: Speci men Type: URINE SPECIMEN Ordering Facility: [facility] Address: [address] [place] [address] Performed By: #### 2 4356-8 #### [facility] CLIA [id number] [address] [place] [address] [place] Nitrite Ql (U) Positive Abnormal Negative [facility] Comment on above: Order Comment: Speci men Type: URINE SPECIMEN Ordering Facility: [facility] Address: [address] [place] [address] Performed By: #### 2 4356-8 #### [facility] CLIA [id number] [address] [place] [address] [place] pH (U) 6.0 [pH] Normal 5.0-8.0 [facility] Comment on above: Order Comment: Speci men Type: URINE SPECIMEN Ordering Facility: [facility] Address: [facility] [place] [address] Performed By: #### 2 4356-8 #### [facility] CLIA [id number] [address] [place] [address] [place] Protein (U) [Mass/Vol] Negative Normal Negative [facility] Comment on above: Order Comment: Speci men Type: URINE SPECIMEN Ordering Facility: [facility] Address: [address] [place] [address] Performed By: #### 2 4356-8 #### [facility] CLIA [id number] [address] [place] [address] [facility] RBC LM.HPF (Urine sed) [#/Area] 3-5 /HPF Abnormal 0-3 /HPF [facility] Comment on above: Order Comment: Speci men Type: URINE SPECIMEN Ordering Facility: [facility] Address: [address] [place] [address] Performed By: #### 2 4356-8 #### [facility] CLIA [id number] [address] [place] [address] STATES OF [facility] Specific gravity (U) [Rel density] 1.020 Normal 1.005-1.030 [facility] Comment on above: Order Comment: Speci men Type: URINE SPECIMEN Ordering Facility: [facility] Address: [address] [place] [address] Performed By: #### 2 4356-8 #### [facility] CLIA [id number] [address] [place] [address] Urobilinogen Ql (U) Negative Normal Negative [facility] Comment on above: Order Comment: Speci men Type: URINE SPECIMEN Ordering Facility: [facility] Address: [address] [place] [address] Performed By: #### 2 4356-8 #### [facility] CLIA [id number] [address] [place] [address] [place] WBC LM.HPF (Urine sed) [#/Area] 6-10 /HPF Abnormal 0-5 /HPF [facility] Comment on above: Order Comment: Speci men Type: URINE SPECIMEN Ordering Facility: [facility] Address: [address], [place] [address] Performed By: #### 2 4356-8 #### [facility] CLIA [id number] [address] [place] [address] [place] CNPNon 04-08-2023 CNPN Telephone (UCMNCA) NIURKA ZHU ([id number]) 1980 F Date Time Provider Department 04/08/23 ANTONINO SNYDER [facility] During your visit today, we recorded the following information about you: Axel Palmer LPN 04/08/2023 10:03 AM Signed ----- Message from Antonino Snyder MD sent at 04/08/2023 7:45 AM EST ----- Please inform patient test was positive for COVID-19 negative for influenza and RSV. Patient needs to quarantine. Follow-up as needed. Axel Palmer LPN 04/08/2023 10:05 AM Signed Called patient, no answer, left message to call back. BRI Gonzalez Sabrina A, LPN 04/14/2023 1:17 PM Signed Called patient, no answer,unable to leave message to call back. Unable to reach letter sent. Axel Palmer LPN Allergies As of Date: 04/08/2023 Noted Allergy Reaction ADHESIVE 09/07/2016 2 - Rash 9 - Itching AMOXICILLIN 09/26/2011 4 - Hives PENICILLINS 09/26/2011 4 - Hives Date Reviewed: 04/07/2023 Reviewed by: Antonino Snyder MD - Fully Assessed Reason for Visit: Results [95] Prescriptions as of 04/14/2023 - doxycycline (VIBRA-TABS) 100 mg tablet Take 1 tablet by mouth two times a day for 10 days. - cephALEXin (KEFLEX) 500 mg capsule Take 1 capsule by mouth every 12 hours. - Brompheniramine-Pseu doeph-DM (BROMFED DM) 2-30-10 mg/5 mL syrup Take [...] by mouth two times a week. - HYDROcodone-acetamin ophen (NORCO) 5-325 mg per tablet Take 1 tablet by mouth every 8 hours as needed for pain. - oxyCODONE-acetaminop hen (PERCOCET) 5-325 mg tablet Take 1 tablet [...] 2 months. Administer at [facility] - diphenoxylate-atropi ne (LOMOTIL) 2.5-0.025 mg per tablet Take 1 [...] unit daily Problem List As Of Date 04/08/2023 Noted Resolved Abdominal pain, other specified site [R10.9] 01/01/2014 Myalgia and myositis [BLL4531] 01/01/2014 Chest pain [R07.9] 01/11/2014 10/23/2016 ASA CLASS II [1001] 07/20/2014 Short bowel syndrome [K90.829] 01/11/2015 Intestinal malabsorption [K90.9] 01/11/2015 Hypomagnesemia [E83.42] [...] 10/10/2018 Diarrhea [R19.7] 10/10/2018 Hypokalemia [E87.6] 10/10/2018 Letter Text Encounter Status:Closed by AXEL PALMER on 04/14/23 [facility] Bri 04-07-2023 CNOV Office Visit (UCMNCA) NIURKA ZHU ([id number]) 1980 F Date Time Provider Department 04/07/23 1:40 PM ANTONINO SNYDER [facility] During your visit today, we recorded the following information about you: Temperature Pulse Respiration Blood pressure 98.7 degrees 67/minute 18/minute 111/74 Weight Last Period 66.5 kg 04/03/23 Antonino Snyder MD 04/07/2023 2:21 PM Signed Niurka Zhu is a 43 year old female who [...] (HCC) S/P cholecystectomy SBO (small bowel obstruction) ([facility]) 05/25/2016 Short bowel syndrome ACTIVE PROBLEM LIST [...] hours. (Patient not taking: Reported on 04/07/2023) Brompheniramine-Pseu doeph-DM (BROMFED DM) 2-30-10 mg/5 mL syrup Take [...] meals. (Patient not taking: Reported on 08/07/2022) [address] mL 2 enoxaparin (LOVENOX) 100 mg/mL syrg Inject 0.7 mL subcutaneously q 12 HR. (Patient not taking: Reported on 04/07/2023) 60 Syringe 5 vitamin A (AQUASOL A) 10,000 unit capsule Take 1 capsule by mouth twice daily. 60 capsule 2 ergocalciferol 50,000 unit capsule (VITAMIN D2, DRISDOL) Take 1 capsule by mouth two times a week. 8 capsule 2 HYDROcodone-acetamin ophen (NORCO) 5-325 mg per tablet Take 1 tablet by mouth every 8 hours as needed for pain. (Patient not taking: Reported on 07/02/2022) 12 tablet 0 oxyCODONE-acetaminop hen (PERCOCET) 5-325 mg tablet Take 1 tablet [...] Administer at [facility] 3 mL 4 diphenoxylate-atropi ne (LOMOTIL) 2.5-0.025 mg per tablet Take 1 [...] on 08/01/2022) 45 tablet 0 No current facility-administere d medications for this visit. Social History Tobacco Use Smoking status: Every Day Packs/day: 1.50 Years: 13.00 Additional pack years: 0.00 Total pack years: 19.50 Types: Cigarettes Last attempt to quit: 08/16/2013 Years since quittin.6 Smokeless tobacco: Never Substance Use Topics Alcohol use: No Comment: currently does not drink Drug use: N (more content not included)... Normal [facility] FLUABV+SARS-CoV-2+RSV Pnl Re sp DAVI+probeon 04-07-2023 FLUABV+SARS-CoV-2+RSV Pnl Resp DAVI+probe COVID 19 RESULT: Detected The method used is RT-PCR or an equivalent NAAT method. Reference Range(the expected result in uninfected individuals): Not detected INFLUENZA A PCR: Not detected INFLUENZA B PCR: Not detected RSV PCR: Not detected Abnormal [facility] Comment on above: Performed By: #### 9 5941-1 #### [facility] CLIA [id number] [facility] [employer] [place] [id number] [place] CBC W Auto Differential pane l (Bld)Ordered By: Joycelyn Yadav on 03-19-2023 Basophils (Bld) [#/Vol] 0.0 10*3/uL 0.0 - 0.2 10*3/uL [employer] Basophils/100 WBC (Bld) 0.6 % 0.0 - 2.0 % [employer] Eosinophils (Bld) [#/Vol] 0.1 10*3/uL 0.0 - 0.5 10*3/uL [facility] Eosinophils/100 WBC (Bld) 1.7 % 1.0 - 6.0 % [facility] Erythrocyte distribution width (RBC) [Ratio] 13.6 % 11.5 - 14.5 % [facility] Hematocrit (Bld) [Volume fraction] 36.7 % 35.0 - 47.0 % [facility] Hemoglobin (Bld) [Mass/Vol] 11.9 g/dL 11.7 - 16.0 g/dL [facility] Immature granulocytes (Bld) [#/Vol] 0.0 10*3/uL NINF - 0.0 10*3/uL [facility] Immature granulocytes/100 WBC (Bld) 0.3 % High NINF - 0.0 % [facility] Interpretation and review of laboratory results Abnormal [facility] Lymphocytes (Bld) [#/Vol] 1.8 10*3/uL 1.0 - 4.3 10*3/uL [facility] Lymphocytes/100 WBC (Bld) 27.5 % 20.0 - 40.0 % [facility] MCH (RBC) [Entitic mass] 31.1 pg 26.0 - 34.0 pg [facility] MCHC (RBC) [Mass/Vol] 32.4 % 32.0 - 36.0 % [facility] MCV (RBC) [Entitic vol] 95.8 fL 80.0 - 98.0 fL [facility] Monocytes (Bld) [#/Vol] 0.4 10*3/uL 0.0 - 0.8 10*3/uL [facility] Monocytes/100 WBC (Bld) 5.8 % 2.0 - 10.0 % [facility] Neutrophils (Bld) [#/Vol] 4.1 10*3/uL 1.8 - 7.0 10*3/uL [facility] Neutrophils/100 WBC (Bld) 64.1 % 40.0 - 80.0 % [facility] Platelet mean volume (Bld) [Entitic vol] 9.4 fL 7.4 - 12.4 fL [facility] Comment on above: MPV is a calculated measurement using platelet volume ratio Platelets (Bld) [#/Vol] 170 10*3/uL 140 - 440 10*3/uL [facility] RBC (Bld) [#/Vol] 3.83 10*6/uL 3.8 - 5.20 10*6/uL [facility] WBC (Bld) [#/Vol] 6.4 10*3/uL 3.6 - 10.7 10*3/uL [facility] CBC WITH AUTO DIFFERENTIALon 03-19-2023 Basophils (Bld) [#/Vol] 0.0 10*3/uL Normal 0.0-0.2 [facility] Comment on above: Performed By: #### L [id number] #### Director Energy: SAILAJA MEHTA ([id number]) [facility] NOLBERTO RITTMAN (SWRL[employer]) [address] [place] [address] [place] Basophils/100 WBC (Bld) 0.6 % Normal 0.0-2.0 [facility] Comment on above: Performed By: #### L [id number] #### Director Energy: SAILAJA MEHTA ([id number]) [facility] ARVIZU RITTMAN ([employer]) [address] [place] [address] [place] Eosinophils (Bld) [#/Vol] 0.1 10*3/uL Normal 0.0-0.5 [facility] Comment on above: Performed By: #### L [id number] #### Director [employer]: SAILAJA MEHTA ([id number]) [facility] Cruz [facility] (SWRL[facility]) [address] [place] [address] [place] Eosinophils/100 WBC (Bld) 1.7 % Normal 1.0-6.0 [facility] Comment on above: Performed By: #### L [id number] #### Director Energy: SAILAJA MEHTA ([id number]) [facility] ([facility]) [address] [place] [address] [place] Erythrocyte distribution width (RBC) [Ratio] 13.6 % Normal 11.5-14.5 [facility] Comment on above: Performed By: #### L [id number] #### Director Energy: SAILAJA MEHTA ([id number]) [facility]Jose Cruz [employer] [facility] ([employer]) [address] [place] [address] [place] ERYTHROCYTE MEAN CORPUSCULAR HEMOGLOBIN CONCENTRATION (G/DL) BY AUTOMATED 32.4 % Normal 32.0-36.0 [facility] Comment on above: Performed By: #### L [id number] #### Director Energy: SAILAJA MEHTA ([id number]) JOSE [employer] ([employer]) [address] [place] [address] Hematocrit (Bld) [Volume fraction] 36.7 % Normal 35.0-47.0 [facility] Comment on above: Performed By: #### L [id number] #### Director Energy: SAILAJA MEHTA ([id number]) [facility] Cruz [employer] [facility] ([employer]) [address] [place] [address] Hemoglobin (Bld) [Mass/Vol] 11.9 g/dL Normal 11.7-16.0 [facility] Comment on above: Performed By: #### L [id number] #### Director Energy: SAILAJA MEHTA ([id number]) [facility]Jose [facility] [employer] [facility] ([facility]) [address] [place] [address] [place] IMMATURE GRANS (10*3/UL) IN BLOOD BY AUTOMATED COUNT 0.0 10*3/uL Normal <=0.0 [facility] Comment on above: Performed By: #### L [id number] #### Director Energy: SAILAJA MEHTA ([id number]) [facility]Jose [facility] [employer] ([employer]) [address] [place] [address] [place] IMMATURE GRANS/100 LEUKOCYTES IN BLOOD BY AUTOMATED COUNT 0.3 % High <=0.0 [facility] Comment on above: Performed By: #### L [id number] #### Director Energy: SAILAJA MEHTA ([id number]) [facility]Jose Cruz [employer] [facility] ([facility]) [address] [place] [address] [place] Lymphocytes (Bld) [#/Vol] 1.8 10*3/uL Normal 1.0-4.3 [facility] Comment on above: Performed By: #### L [id number] #### Director Energy: SAILAJA MEHTA ([id number]) [facility] [employer] ([employer]) [address] [place] [address] [place] Lymphocytes/100 WBC (Bld) 27.5 % Normal 20.0-40.0 [facility] Comment on above: Performed By: #### L [id number] #### Director Energy: SAILAJA MEHTA ([id number]) JOSE [employer] ([employer]) [address] [place] [address] MCH (RBC) [Entitic mass] 31.1 pg Normal 26.0-34.0 [facility] Comment on above: Performed By: #### L [id number] #### Director Energy: SAILAJA MEHTA ([id number]) [facility] [employer] ([employer]) [address] [place] [address] MCV (RBC) [Entitic vol] 95.8 fL Normal 80.0-98.0 [facility] Comment on above: Performed By: #### L [id number] #### Director Energy: SAILAJA MEHTA ([id number]) JOSE [employer] ([employer]) [address] [place] [address] [place] Monocytes (Bld) [#/Vol] 0.4 10*3/uL Normal 0.0-0.8 [facility] Comment on above: Performed By: #### L [id number] #### Director Energy: SAILAJA MEHTA ([id number]) [facility] [employer] ([employer]) [address] [place] [address] [place] Monocytes/100 WBC (Bld) 5.8 % Normal 2.0-10.0 [facility] Comment on above: Performed By: #### L [id number] #### Director Energy: SAILAJA MEHTA ([id number]) JO[facility] [employer] ([employer]) [address] [place] [address] [place] Neutrophils (Bld) [#/Vol] 4.1 10*3/uL Normal 1.8-7.0 [facility] Comment on above: Performed By: #### L [id number] #### Director Energy: SAILAJA MEHTA ([id number]) JOSE [employer] ([employer]) [address] [place] [address] Neutrophils/100 WBC (Bld) 64.1 % Normal 40.0-80.0 [facility] Comment on above: Performed By: #### L [id number] #### Director Energy: SAILAJA MEHTA ([id number]) [facility]Jose Cruz [employer] ([employer]) [address] [place] [address] Platelet mean volume (Bld) [Entitic vol] 9.4 fL Normal 7.4-12.4 [facility] Comment on above: Result Comment: MPV is a calculated measurement using platelet volume ratio Performed By: #### L [id number] #### Director Energy: SAILAJA MEHTA ([id number]) [facility]ITALJose Cruz [employer] (SW[place]) [address] [place] [address] Platelets (Bld) [#/Vol] 170 10*3/uL Normal 140-440 [facility] Comment on above: Performed By: #### L [id number] #### Director Energy: SAILAJA MEHTA ([id number]) [facility]ITALJose Cruz [employer] ([employer]) [address] [place] [address] RBC (Bld) [#/Vol] 3.83 10*6/uL Normal 3.8-5.20 [facility] Comment on above: Performed By: #### L [id number] #### Director Energy: SAILAJA MEHTA ([id number]) [facility]ITALJose Cruz [employer] ([employer]) [address] [place] [address] [place] WBC (Bld) [#/Vol] 6.4 10*3/uL Normal 3.6-10.7 [facility] Comment on above: Performed By: #### L [id number] #### Director Energy: SAILAJA MEHTA ([id number]) [facility]ITALJose Cruz [employer] (SW[employer]) [address] COMPLETE URINALYSISon 2022 BACTERIA (#/HPF) IN URINE Moderate Abnormal Negative [facility] Comment on above: Performed By: #### L [id number] #### Director Energy: SAILAJA MEHTA ([id number]) [facility]ITALJose Cruz [employer] ([employer]) [address] [place] [address] BILIRUBIN, TOTAL PRESENCE IN URINE Negative Normal Negative [facility] Comment on above: Performed By: #### L [id number] #### Director Energy: SAILAJA MEHTA ([id number]) [facility] ([facility]) [address] [place] [address] Clarity (U) Clear Normal Clear [facility] Comment on above: Performed By: #### L [id number] #### Director Energy: SAILAJA MEHTA ([id number]) [facility] ([facility]) [address] [place] [address] Color (U) Light Yellow Normal Lt. Yellow [facility] Comment on above: Performed By: #### L [id number] #### Director Energy: SAILAJA MEHTA ([id number]) [facility] ([facility]) [address] [place] [address] [place] GLUCOSE (MG/DL) IN URINE Normal Normal Normal (<70 ) [facility] Comment on above: Performed By: #### L [id number] #### Director Energy: SAILAJA MEHTA ([id number]) [facility] ([facility]) [address] [place] [address] [place] HEMOGLOBIN PRESENCE IN URINE Negative Normal Negative [facility] Comment on above: Performed By: #### L [id number] #### Director Energy: SAILAJA MEHTA ([id number]) [facility] ([facility]) [address] [place] [address] Ketones Ql (U) Negative Normal Negative [facility] Comment on above: Performed By: #### L [id number] #### Director Energy: SAILAJA MEHTA ([id number]) [facility]Jose Cruz [employer] ([employer]) [address] [place] [address] LEUKOCYTE ESTERASE PRESENCE IN URINE BY TEST STRIP Negative Normal Negative [facility] Comment on above: Performed By: #### L [id number] #### Director Energy: SAILAJA MEHTA ([id number]) JOSE [employer] ([employer]) [address] [place] [address] [place] MUCUS (#/LPF) IN URINE SEDIMENT Few Normal Negative [facility] Comment on above: Performed By: #### L [id number] #### Director Energy: SAILAJA MEHTA ([id number]) [facility]Jose [facility] [employer] (SWRL[employer]) [address] [place] [address] NITRITE PRESENCE IN URINE Positive Abnormal Negative [facility] Comment on above: Performed By: #### L [id number] #### Director Energy: SAILAJA MEHTA ([id number]) [facility]Jose Cruz [employer] (SWRL[employer]) [address] [place] [address] [place] pH (U) 5.0 [pH] Normal 5.0-8.0 [facility] Comment on above: Performed By: #### L [id number] #### Director Energy: SAILAJA MEHTA ([id number]) [facility]Jose [facility] [employer] (SWRL[employer]) [address] [place] [address] Protein (U) [Mass/Vol] Negative Normal Negative [facility] Comment on above: Performed By: #### L [id number] #### Director Energy: SAILAJA MEHTA ([id number]) [facility]Jose Cruz [employer] (SWRL[employer]) [address] [place] [address] [place] RBC (#/HPF) IN URINE SEDIMENT 0-2 Normal 0-2 [facility] Comment on above: Performed By: #### L [id number] #### Director Energy: SAILAJA MEHTA ([id number]) [facility] (SWRL[employer]) [facility] [address] Specific gravity (U) [Rel density] 1.015 Normal 1.005-1.030 [facility] Comment on above: Performed By: #### L [id number] #### Director Energy: SAILAJA MEHTA ([id number]) [facility]Jose Cruz [employer] ([employer]) [address] Specimen volume (U) 12 mL Normal [facility] Comment on above: Performed By: #### L [id number] #### Director Energy: SAILAJA MEHTA ([id number]) [facility]Jose Cruz [employer] (SWRL[employer]) [address] [place] [address] SQUAMOUS EPITHELIAL CELLS (#/HPF) IN URINE SEDIMENT 6-10 Abnormal 3-5 [facility] Comment on above: Performed By: #### L [id number] #### Director Energy: SAILAJA MEHTA ([id number]) [facility]Jose Cruz [employer] (SWRL[employer]) [address] [place] [address] UROBILINOGEN (MG/DL) IN URINE Normal Normal Normal (0-1) [facility] Comment on above: Performed By: #### L [id number] #### Director Energy: SAILAJA MEHTA ([id number]) [facility]Jose [facility] [employer] (SWRL[employer]) [address] [place] [address] WBC (LEUKOCYTE) (#/HPF) IN URINE SEDIMENT 0-2 Normal 0-5 [facility] Comment on above: Performed By: #### L [id number] #### Director Energy: SAILAJA MEHTA ([id number]) [facility]Jose Cruz [employer] (SW[employer]) [address] [place] [address] COMPREHENSIVE METABOLIC PANE Andrew 03-19-2023 Albumin [Mass/Vol] 3.7 g/dL Normal 3.5-5.0 [facility] Comment on above: Performed By: #### L [id number] #### Director Energy: SAILAJA MEHTA ([id number]) [facility] ([employer]) [address] [place] [address] [place] ALP [Catalytic activity/Vol] 44 U/L Normal 38-126 [facility] Comment on above: Performed By: #### L [id number] #### Director Energy: SAILAJA MEHTA ([id number]) [facility] ([employer]) [address] [place] [address] [place] ALT [Catalytic activity/Vol] 25 U/L Normal 0-34 [facility] Comment on above: Performed By: #### L [id number] #### Director Energy: SAILAJA MEHTA ([id number]) [facility] ([employer]) [address] Anion gap [Moles/Vol] 9 mmol/L Normal 3-13 [facility] Comment on above: Performed By: #### L [id number] #### Director Energy: SAILAJA MEHTA ([id number]) [facility] ([employer]) [address] [place] [address] [place] AST [Catalytic activity/Vol] 25 U/L Normal 15-46 [facility] Comment on above: Performed By: #### L [id number] #### Director Energy: SAILAJA MEHTA ([id number]) [facility] ([employer]) [address] [place] [address] Bilirubin [Mass/Vol] 0.6 mg/dL Normal 0.2-1.3 [facility] Comment on above: Performed By: #### L [id number] #### Director Energy: SAILAJA MEHTA ([id number]) [facility] ([employer]) [address] [place] [address] [place] Calcium [Mass/Vol] 8.7 mg/dL Normal 8.4-10.4 [facility] Comment on above: Performed By: #### L [id number] #### Director Energy: SAILAJA MEHTA ([id number]) [facility] [employer] ([employer]) [address] [place], [place] [address] [place] Chloride [Moles/Vol] 105 mmol/L Normal 98-107 [facility] Comment on above: Performed By: #### L [id number] #### Director Energy: SAILAJA MEHTA ([id number]) [facility]Jose Cruz [employer] (SWRL[employer]) [address] [place] [address] CO2 [Moles/Vol] 26 mmol/L Normal 22-30 [facility] Comment on above: Performed By: #### L [id number] #### Director Energy: SAILAJA MEHTA ([id number]) [facility]Jose Cruz [employer] (SWRL[employer]) [address] [place] [address] Creatinine [Mass/Vol] 0.66 mg/dL Normal 0.52-1.04 [facility] Comment on above: Performed By: #### L [id number] #### Director Energy: SAILAJA MEHTA ([id number]) [facility]Jose Cruz [employer] (SWRL[employer]) [address] [place] [address] GLOMERULAR FILTRATION RATE ML/MIN/1.73 SQ M.PREDICTED >90.0 Normal >60.0 [facility] Comment on above: Result Comment: Calc ulation based on the Chronic Kidney Disease Epidemiology Collaboration (CKD-EPI) equation refit without adjustment for race Performed By: #### L [id number] #### Director Energy: SAILAJA MEHTA ([id number]) [facility]Jose Cruz [employer] (SWRL[employer]) [address] [place] [address] [place] Glucose [Mass/Vol] 83 mg/dL Normal 70-100 [facility] Comment on above: Performed By: #### L [id number] #### Director Energy: SAILAJA MEHTA ([id number]) [facility]Jose [facility] [employer] (SWRL[employer]) [address] [place] [address] Potassium [Moles/Vol] 4.1 mmol/L Normal 3.5-5.1 [facility] Comment on above: Performed By: #### L [id number] #### Director Energy: SAILAJA MEHTA ([id number]) [facility] [address] [place] [address] Protein [Mass/Vol] 6.4 g/dL Normal 6.3-8.2 [facility] Comment on above: Performed By: #### L [id number] #### Director Energy: SAILAJA MEHTA ([id number]) [facility] (SW[employer]) [address] Sodium [Moles/Vol] 140 mmol/L Normal 135-145 [facility] Comment on above: Performed By: #### L [id number] #### Director Energy: SAILAJA MEHTA ([id number]) [facility] (SWRL[employer]) [address] [place] [address] Urea nitrogen [Mass/Vol] 8 mg/dL Normal 7-17 [facility] Comment on above: Performed By: #### L [id number] #### Director Energy: SAILAJA MEHTA ([id number]) [facility] [employer] (SWRLAB) [address] [place] [address] CT ABDOMEN PELVIS WO IV CONT [facility] 03-19-2023 CT ABDOMEN PELVIS WO IV CONTRAST Patient Name: NIURKA ZHU : 1980 Exam Date/Time: 03/19/2023 17:43 Procedure: CT ABDOMEN PELVIS WO IV CONTRAST Ordering Provider: RUIZ JONATHAN Reason For Exam: FLANK PAIN CT ABDOMEN AND PELVIS Indication: 43-year-old; flank pain Scan Parameters: Multiple axial CT images were obtained of the abdomen and pelvis. Coronal and sagittal reconstructions were reviewed as well. ALARA protocol. Dose reduction was employed with automated exposure control. Contrast: No IV and no oral contrast Comparison: None. FINDINGS: The lung bases are clear. The osseous structures are intact. The heart is not enlarged. There are atherosclerotic changes along the aorta. This exam is extremely limited due to lack of IV contrast, lack of oral contrast, and lack of intra-abdominal fat. The liver contour is smooth. Evaluation for hepatic masses is suboptimal due to lack of IV contrast. Cholecystectomy clips are present. Limited evaluation of the pancreas. The pancreas contour is within normal limits. The spleen is not enlarged. The adrenal glands are within normal limits. There is no hydronephrosis. There is no obstructing ureteral calculus on the right or left. The bladder contour is normal. The uterus is anteverted with a T-shaped intrauterine device. Ovaries are not well characterized. There are postsurgical changes at the cecum. The appendix is not clearly identified. There are multiple post surgical changes involving bowel loops with suture material and clips present. There is fluid within the lumen of the descending colon and transverse colon as well as multiple small bowel loops. Evaluation of the bowel wall and lumen is limited due to lack of GI contrast. IMPRESSION: There are multiple fluid-filled loops of small and large bowel without a transition point to suggest obstruction. Prior GI surgery noted. Lack of GI contrast does limit overall evaluation. Correlate with clinical exam. No hydronephrosis. Cholecystectomy. Additional findings, as above. Report Dictated on Electronically Signed By: Lainey Ramires MD Electronically Signed Date/Time: 03/19/2023 5:55 PM EDT Gross hematuria, +hx renal stones, bilat flank pain, no CA Normal [facility] CT Abdomen WO contraston There are multiple fluid-filled loops of small and large bowel without a transition point to suggest obstruction. Prior GI surgery noted. Lack of GI contrast does limit overall evaluation. Correlate with clinical exam. No hydronephrosis. Cholecystectomy. Additional findings, as above. Report Dictated on Electronically Signed By: Lainey Ramires MD Electronically Signed Date/Time: 03/19/2023 5:55 PM EDT [facility] Patient Name: NIURKA ZHU : 1980 Exam Date/Time: 03/19/2023 17:43 Procedure: CT ABDOMEN PELVIS WO IV CONTRAST Ordering Provider: RUIZ JONATHAN Reason For Exam: FLANK PAIN CT ABDOMEN AND PELVIS Indication: 43-year-old; flank pain Scan Parameters: Multiple axial CT images were obtained of the abdomen and pelvis. Coronal and sagittal reconstructions were reviewed as well. ALARA protocol. Dose reduction was employed with automated exposure control. Contrast: No IV and no oral contrast Comparison: None. FINDINGS: The lung bases are clear. The osseous structures are intact. The heart is not enlarged. There are atherosclerotic changes along the aorta. This exam is extremely limited due to lack of IV contrast, lack of oral contrast, and lack of intra-abdominal fat. The liver contour is smooth. Evaluation for hepatic masses is suboptimal due to lack of IV contrast. Cholecystectomy clips are present. Limited evaluation of the pancreas. The pancreas contour is within normal limits. The spleen is not enlarged. The adrenal glands are within normal limits. There is no hydronephrosis. There is no obstructing ureteral calculus on the right or left. The bladder contour is normal. The uterus is anteverted with a T-shaped intrauterine device. Ovaries are not well characterized. There are postsurgical changes at the cecum. The appendix is not clearly identified. There are multiple post surgical changes involving bowel loops with suture material and clips present. There is fluid within the lumen of the descending colon and transverse colon as well as multiple small bowel loops. Evaluation of the bowel wall and lumen is limited due to lack of GI contrast. [facility] Lainey Ramires MD - 03/19/2023 Patient Name: NIURKA ZHU : 1980 [id number] Exam Date/Time: 03/19/2023 17:43 Procedure: CT ABDOMEN PELVIS WO IV CONTRAST Ordering Provider: RUIZ JONATHAN Reason For Exam: FLANK PAIN CT ABDOMEN AND PELVIS Indication: 43-year-old; flank pain Scan Parameters: Multiple axial CT images were obtained of the abdomen and pelvis. Coronal and sagittal reconstructions were reviewed as well. ALARA protocol. Dose reduction was employed with automated exposure control. Contrast: No IV and no oral contrast Comparison: None. FINDINGS: The lung bases are clear. The osseous structures are intact. The heart is not enlarged. There are atherosclerotic changes along the aorta. This exam is extremely limited due to lack of IV contrast, lack of oral contrast, and lack of intra-abdominal fat. The liver contour is smooth. Evaluation for hepatic masses is suboptimal due to lack of IV contrast. Cholecystectomy clips are present. Limited evaluation of the pancreas. The pancreas contour is within normal limits. The spleen is not enlarged. The adrenal glands are within normal limits. There is no hydronephrosis. There is no obstructing ureteral calculus on the right or left. The bladder contour is normal. The uterus is anteverted with a T-shaped intrauterine device. Ovaries are not well characterized. There are postsurgical changes at the cecum. The appendix is not clearly identified. There are multiple post surgical changes involving bowel loops with suture material and clips present. There is fluid within the lumen of the descending colon and transverse colon as well as multiple small bowel loops. Evaluation of the bowel wall and lumen is limited due to lack of GI contrast. IMPRESSION: There are multiple fluid-filled loops of small and large bowel without a transition point to suggest obstruction. Prior GI surgery noted. Lack of GI contrast does limit overall evaluation. Correlate with clinical exam. No hydronephrosis. Cholecystectomy. Additional findings, as above. Report Dictated on Electronically Signed By: Lainey Ramires MD Electronically Signed Date/Time: 03/19/2023 5:55 PM EDT [facility] Radiology Study observation (narrative) [facility] CT Abdomen WO contrastOrdere d By: Lainey Ramires on 03-19-2023 [facility] Work Phone: Comprehensive metabolic 1998 panelon 03-19-2023 Albumin [Mass/Vol] 3.7 g/dL 3.5 - 5.0 g/dL [facility] ALP [Catalytic activity/Vol] 44 U/L 38 - 126 U/L [facility] ALT [Catalytic activity/Vol] 25 U/L 0 - 34 U/L [facility] Anion gap [Moles/Vol] 9 mmol/L 3 - 13 mmol/L [facility] AST [Catalytic activity/Vol] 25 U/L 15 - 46 U/L [facility] Bilirubin [Mass/Vol] 0.6 mg/dL 0.2 - 1 .3 mg/dL [facility] Calcium [Mass/Vol] 8.7 mg/dL 8.4 - 10. 4 mg/dL [facility] Chloride [Moles/Vol] 105 mmol/L 98 - 10 7 mmol/L [facility] CO2 [Moles/Vol] 26 mmol/L 22 - 30 mmol/L [facility] Creatinine [Mass/Vol] 0.66 mg/dL 0.52 - 1.04 mg/dL [facility] GFR/1.73 sq M.predicted MDRD (S/P/Bld) [Vol rate/Area] - PINF [facility] Comment on above: Calculation based on the Chronic Kidney Disease Epidemiology Collaboration (CKD-EPI) equation refit without adjustment for race Glucose [Mass/Vol] 83 mg/dL 70 - 100 mg/dL [facility] Interpretation and review of laboratory results Normal [facility] Potassium [Moles/Vol] 4.1 mmol/L 3.5 - 5.1 mmol/L [facility] Protein [Mass/Vol] 6.4 g/dL 6.3 - 8.2 g/dL [facility] Sodium [Moles/Vol] 140 mmol/L 135 - 145 mmol/L [facility] Urea nitrogen [Mass/Vol] 8 mg/dL 7 - 17 mg/d L [facility] ED Nursing Noteon 03-19-2023 ED Nursing Note Discharge instructions, follow up care, and pain management discussed with patient. All questions answered, there are no further questions at this time. IV removed, catheter intact, site covered with dry dressing. Patient tolerated well. RN educated on newly prescribed antibiotics including dose, use, and side effects. Patient verbalized understanding and ambulated off the unit independently at discharge. Mihai Barraza RN 03/19/23 2066 [facility] ED Nursing Note Patient ambulatory to room 14 presenting with [...] bedside, and call light is in reach. Normal [facility] ED Provider Noteon 10-31-202 3 ED Provider Note [facility] ED EMERGENCY DEPARTMENT ENCOUNTER Pt Name: Niurka Zhu Birthdate 1980 Date of evaluation: 03/19/2023 Provider: Alejandro Ruiz MD CHIEF COMPLAINT Chief Complaint Patient presents with Urinary Retention Pelvic Pain Right sided pelvic pain radiating to right flank, with urinary retention and burning with urination for the last 2-3 days HISTORY OF PRESENT ILLNESS I wore proper PPE for the entirety of this encounter. Niurka Zhu is a 43 y.o. female history nephrolithiasis, [...] 1648] Temp Heart Rate Resp BP 36.7 ?C (98 ?F) 63 17 123/87 SpO2 Temp Source Heart Rate Source Patient Position 100 % Temporal Monitor -- BP Location FiO2 (%) -- -- Constitutional: No acute distress HEENT:Head: Atraumatic/normoceph alic Eyes: Conjunctivae normal. ENT: Mucous membranes moist. Neck: Normal ROM, supple CV: RRR RESP: CTAB, good respiratory effort, no increased wob GI: Abdomen soft, minimal right lower quadrant tenderness, non-distended, +BS, no guarding or rebound tenderness MSK: Normal bulk and tone, no gross deformity BACK: Mild right CVA tenderness. No C/T/L-spine tenderness EXTR: Warm and well perfused, no edema SKIN: No rash/bruising/erythe ma PSYCH: Appropriate affect, cooperative behavior NEURO: Alert [...] 3.7 BILIRUBIN, TOTAL 0.6 TOTAL PROTEIN 6.4 (more content not included)... Normal [facility] HCG QUALITATIVE URINEon 02-19 Beta HCG ( test) Ql (U) Negative Normal Negative [facility] Comment on above: Result Comment: Plea note: Very dilute urine specimens, as indicated by a low specific gravity, may not contain corporate sales representative levels of hCG. If is still suspected, a first morning urine specimen should be collected 48 hours later and tested. ORDER COMMENTS: is the most common reason for HCG in urine, although choriocarcinoma, hydatidiform mole, and certain nontrophoblastic malignancies also result in detectable urinary HCG levels. Sensitivity = 20mIU/mL. Performed By: #### [id number] #### Director Energy: SAILAJA MEHTA ([id number]) [facility] [address] [place] [address] Laboratory - Chemistry and C hemistry - challengeon 03-19-2023 Beta HCG ( test) Ql Negative Negative [facility] Comment on above: Please note: Very di lute urine specimens, as indicated by a low specific gravity, may not contain corporate sales representative levels of hCG. If is still suspected, a first morning urine specimen should be collected 48 hours later and tested. Beta HCG ( test) Ql (U) is the most common reason for HCG in urine, although choriocarcinoma, hydatidiform mole, and certain nontrophoblastic malignancies also result in detectable urinary HCG levels. Sensitivity = 20mIU/mL. [facility] [employer] No Panel Informationon 03-19 [facility] [employer] Urinalysis complete panel (U )on 03-19-2023 Bacteria LM.HPF (Urine sed) [#/Area] Moderate Abnormal Negative /HPF [facility] [employer] Bilirubin Ql (U) Negative Negative mg/dL [facility] [employer] Clarity (U) Clear Clear [facility] [employer] Color (U) Light Yellow Lt. Yellow [facility] [employer] Epithelial cells.squamous LM.HPF (Urine sed) [#/Area] 6-10 Abnormal [facility] h Glucose Ql (U) Normal Normal (<70) mg/dL [facility] Hemoglobin Ql (U) Negative Negative mg/dL [facility] Interpretation and review of laboratory results Abnormal [facility] Ketones (U) [Mass/Vol] Negative Negative mg/d L [facility] Leukocyte esterase Test strip Ql (U) Negative Negative Martínez/uL [facility] Mucus LM.HPF (Urine sed) [#/Area] Few Negative /LPF [facility] Nitrite Ql (U) Positive Abnormal Negative [facility] th pH (U) 5.0 [pH] 5.0 - 8.0 pH [facility] Protein (U) [Mass/Vol] Negative Negative mg/d L [facility] RBC LM.HPF (Urine sed) [#/Area] 0-2 [facility] Specific gravity (U) [Rel density] 1.015 1.005 - 1.030 [facility] Urobilinogen (U) [Mass/Vol] Normal Normal (0-1) mg/dL [facility] Volume, Urine 12 mL [facility] WBC LM.HPF (Urine sed) [#/Area] 0-2 [facility] STREP A MOLECULAR (POC)on Procedural Control Valid [facility] Strep A (POCT) Negative Negative [facility] Absolute lymphocyte countOrd ered By: Viola Carrasco on 03-03-2023 Lymphocytes Auto (Unsp spec) [#/Vol] 1.74 10*3/uL 0.83-4.51 [facility] Amorphous sediment detection in urine sediment by light microscopyOrdered By: Viola Carrasco on 03-03-2023 Amorphous sediment LM Ql (Urine sed) 1+ URATE [facility] Basophil percentageOrdered B y: Viola Carrasco on 03-03-2023 Basophil percentage 0-5 SEEN /hpf 0-5 Wo [facility] Basophils/100 WBC (Bld) 0.7 % 0-[address] [facility] Bilirubin [Mass/Vol] 0.50 mg/dL 0.20-1.00 [facility] Comment on above: For patients on eltr ombopag therapy, use of [place] TBIL is not recommended. Chloride [Moles/Vol] 110 mmol/L 98-107 [facility] Eosinophils/100 WBC (Bld) 2.4 % 0-5 [facility] Glucose [Mass/Vol] 101 mg/dL 74-106 [facility] Comment on above: Fasting Glucose resu lt from 100 to 125 mg/dL suggests IMPAIRED HOMEOSTASIS per A.D.A. criteria. Neutrophils (Bld) [#/Vol] 3.2 10*3/uL 2.0-7.7 [facility] Neutrophils/100 WBC (Bld) 58.8 % 47-70 [facility] Potassium [Moles/Vol] 3.2 mmol/L 3.5-5.1 [facility] Protein [Mass/Vol] 6.2 g/dL 6.4-8.2 [facility] Sodium [Moles/Vol] 144 mmol/L 136-145 [facility] WBC (Bld) [#/Vol] 5.5 10*3/uL 4.4-11.0 [facility] Bilirubin Test strip Ql (U)O rdered By: Viola Carrasco on 03-03-2023 Bilirubin Ql (U) 1 mg/dL Negative [facility] Comment on above: COLOR OF URINE MAY A FFECT DIPSTICK RESULTS. Blood erythrocytes count (nu mber/volume)Ordered By: Viola Carrasco on 03-03-2023 RBC (Bld) [#/Vol] 3.82 10*6/uL 4.2-5.4 [facility] Blood hemoglobin measurement (mass/volume)Ordered By: Viola Carrasco on 03-03-2023 Hemoglobin (Bld) [Mass/Vol] 11.8 g/dL 12.0-15.0 [facility] Blood lymphocytes/100 leukoc ytesOrdered By: Viola Carrasco on 03-03-2023 Lymphocytes/100 WBC (Bld) 31.7 % 19-41 [facility] Blood monocytes/100 leukocyt esOrdered By: Viola Carrasco on 03-03-2023 Monocytes/100 WBC (Bld) 6.2 % 0-[address] [facility] Blood platelet mean volumeOr dered By: Viola Carrasco on 03-03-2023 Platelet mean volume (Bld) [Entitic vol] 10.3 fL 6.2-12.0 [facility] Culture, urineOrdered By: Jess Carrasco on 03-03-2023 Bacteria identified Cx Nom (U) Escherichia coli [facility] Determination of erythrocyte mean corpuscular volume (MCV)Ordered By: Viola Carrasco on 03-03-2023 MCV (RBC) [Entitic vol] 95.8 fL 81-[address] [facility] Hematocrit Auto (Bld) [Volum e fraction]Ordered By: Viola Carrasco on 03-03-2023 Hematocrit (Bld) [Volume fraction] 36.6 % 37-47 [facility] Ketones Test strip Ql (U)Ord ered By: Viola Carrasco on 03-03-2023 Ketones Ql (U) 5 mg/dl Negative [facility] Laboratory - Chemistry and C hemistry - challengeOrdered By: Viola Carrasco on 03-03-2023 ALP [Catalytic activity/Vol] 65 U/L 45-117 [facility] ALT [Catalytic activity/Vol] 30 U/L 13- [facility] CO2 [Moles/Vol] 27.0 mmol/L 21.0-32.0 [facility] Globulin (S) [Mass/Vol] 3.1 g/dL 2.2-4.[address] [facility] Lipase [Catalytic activity/Vol] 18 U/L [facility] Comment on above: Please note:LIPASE r evised reference range effective 22. New Lipase methodology. Expected to produce lower values than the previous assay method. NEW Reference Range: 13 - 75 U/L Urea nitrogen/Creatinine [Mass ratio] 14.8 mg/mg - [facility] Laboratory - Hematology and Cell countsOrdered By: Viola Carrasco on 03-03-2023 Erythrocyte distribution width (RBC) [Entitic vol] 46.3 fL 35.1-43.9 [facility] Erythrocyte distribution width (RBC) [Ratio] 13.2 % 11.6-14.6 [facility] Immature granulocytes/100 WBC (Bld) 0.200 % 0.0-0.9 [facility] Comment on above: IG% - Immature Granu locytes (promyelocytes, myelocytes and metamyelocytes) > 1% indicates that a LEFT SHIFT is Present. MCH (RBC) [Entitic mass] 30.9 pg 27.0-32.0 [facility] Nucleated RBC/100 WBC (Bld) [Ratio] 0 % 0-5 [facility] MCHC Auto (RBC) [Mass/Vol]Or dered By: Viola Carrasco on 03-03-2023 MCHC (RBC) [Mass/Vol] 32.2 g/dL 32-36 [facility] Mucus LM Ql (Urine sed)Order ed By: Viola Carrasco on 03-03-2023 Mucus Ql (Urine sed) 0 SEEN /hpf [facility] Nitrite Test strip Ql (U)Ord ered By: Viola Carrasco on 03-03-2023 Nitrite Ql (U) Positive Negative [facility] No Panel InformationOrdered By: Viola Carrasco on 03-03-2023 Estimated Creatinine Clearance Calc 86.39 ml/min [facility] Estimated GFR (MDRD) Amer 110 mL/min >60 [facility] Comment on above: GFR Calc Estimated GFR (MDRD) Non-Af Amer 91 mL/min >60 [facility] Comment on above: Non- GFR Calc Platelets bldOrdered By: Russ Carrasco on 03-03-2023 Platelets (Bld) [#/Vol] 183 10*3/uL 150-450 [facility] Protein Test strip Ql (U)Ord ered By: Viola Carrasco on 03-03-2023 Protein Ql (U) 30 mg/dl Negative [facility] Serum or plasma albumin liliana urement (mass/volume)Ordered By: Viola Carrasco on 03-03-2023 Albumin [Mass/Vol] 3.1 g/dL 3.2-5.0 [facility] Serum or plasma albumin/glob ulin mass ratioOrdered By: Viola Carrasco on 03-03-2023 Albumin/Globulin [Mass ratio] 1.0 {ratio} 0.9-2.4 [facility] Serum or plasma calcium liliana urement (mass/volume)Ordered By: Viola Carrasco on 03-03-2023 Calcium [Mass/Vol] 8.3 mg/dL 8.5-10.1 [facility] Serum or plasma creatinine m easurement (mass/volume)Ordered By: Viola Carrasco on 03-03-2023 Creatinine [Mass/Vol] 0.74 mg/dL 0.55-1.02 [facility] Comment on above: The validity of the calculated GFR & GFRAA in patients over 70 years has not been determined. Clinical correlation is essential. Serum or plasma urea nitroge n measurement (mass/volume)Ordered By: Viola Carrasco on 03-03-2023 Urea nitrogen [Mass/Vol] 11 mg/dL 7-18 [facility] Squamous epithelial cells de tection in urine sediment by light microscopyOrdered By: Viola Carrasco on 03-03-2023 Epithelial cells.squamous LM Ql (Urine sed) 5-10 SEEN /hpf 5-10 [facility] Thin prep Papanicolaou smear with manual screeningOrdered By: Viola Carrasco on 03-03-2023 Thin prep Papanicolaou smear with manual screening 23 U/L 15-37 [facility] Thin prep Papanicolaou smear with manual screening 7 - [facility] Urine blood detectionOrdered By: Viola Carrasco on 03-03-2023 RBC Ql (U) 150 /ul Negative [facility] RBC Ql (U) 10-25 SEEN /hpf 0-5 [facility] Urine clarityOrdered By: Russ Carrasco on 03-03-2023 Clarity (U) Cloudy Clear [facility] Urine color determinationOrd ered By: Viola Carrasco on 03-03-2023 Color (U) Yellow Yellow [facility] Urine glucose detectionOrder ed By: Viola Carrasco on 03-03-2023 Glucose Ql (U) Normal mg/dl Normal [facility] Urine leukocyte esterase det ection by dipstickOrdered By: Viola Carrasco on 03-03-2023 Leukocyte esterase Test strip Ql (U) 25 /ul Negative [facility] Urine pHOrdered By: Franco Carrasco on 03-03-2023 pH (U) 5.0 [pH] 5.0 - 8.0 [facility] Urine sediment bacteria coun t by microscopy (number/high power field)Ordered By: Viola Carrasco on 03-03-2023 Bacteria LM.HPF (Urine sed) [#/Area] 3 /[HPF] None Seen [facility] Urine sediment uric acid cry stal count by microscopy (number/high power field)Ordered By: Viola Carrasco on 03-03-2023 Urate crystals LM.HPF (Urine sed) [#/Area] 1 /[HPF] [facility] Urine specific gravity measu rementOrdered By: Viola Carrasco on 03-03-2023 Specific gravity (U) [Rel density] 1.025 1.002-1.030 [facility] Urobilinogen Auto test strip Ql (U)Ordered By: Viola Carrasco on 03-03-2023 Urobilinogen Ql (U) Normal mg/dl Normal [facility] Absolute lymphocyte countOrd ered By: Guanako Richardson on 12-30-2022 Lymphocytes Auto (Unsp spec) [#/Vol] 1.34 10*3/uL 0.83-4.51 [facility] Basophil percentageOrdered B y: Guanako Richardson on 12-30-2022 Basophils/100 WBC (Bld) 0.6 % 0-1 [facility] Chloride [Moles/Vol] 106 mmol/L 98-107 [facility] Eosinophils/100 WBC (Bld) 1.8 % 0-5 [facility] Glucose [Mass/Vol] 94 mg/dL 74-106 [facility] Neutrophils (Bld) [#/Vol] 3.2 10*3/uL 2.0-7.7 [facility] Neutrophils/100 WBC (Bld) 64.2 % 47-70 [facility] Potassium [Moles/Vol] 3.2 mmol/L 3.5-5.1 [facility] Sodium [Moles/Vol] 142 mmol/L 136-145 [facility] WBC (Bld) [#/Vol] 5.0 10*3/uL 4.4-11.0 [facility] Blood erythrocytes count (nu mber/volume)Ordered By: Guanako Richardson on 12-30-2022 RBC (Bld) [#/Vol] 4.26 10*6/uL 4.2-5.4 [facility] Blood hemoglobin measurement (mass/volume)Ordered By: Guanako Richardson on 12-30-2022 Hemoglobin (Bld) [Mass/Vol] 12.7 g/dL 12.0-15.0 [facility] Blood lymphocytes/100 leukoc ytesOrdered By: Guanako Richardson on 12-30-2022 Lymphocytes/100 WBC (Bld) 26.8 % 19-41 [facility] Blood monocytes/100 leukocyt esOrdered By: Guanako Richardson on 12-30-2022 Monocytes/100 WBC (Bld) 6.4 % 0-[address] [facility] Blood platelet mean volumeOr dered By: Guanako Richardson on 12-30-2022 Platelet mean volume (Bld) [Entitic vol] 10.1 fL 6.2-12.0 [facility] COVID-19 virus antigen assay Ordered By: Guanako Richardson on 12-30-2022 SARS-CoV-2 (COVID-19) Ag IA.rapid Ql (Resp) [facility] Determination of erythrocyte mean corpuscular volume (MCV)Ordered By: Guanako Richardson on 12-30-2022 MCV (RBC) [Entitic vol] 93.9 fL 81-[address] [facility] Hematocrit Auto (Bld) [Volum e fraction]Ordered By: Guanako Richardson on 12-30-2022 Hematocrit (Bld) [Volume fraction] 40.0 % 37-47 [facility] Laboratory - Chemistry and C hemistry - challengeOrdered By: Guanako Richardson on 12-30-2022 CO2 [Moles/Vol] 29.0 mmol/L 21.0-32.0 [facility] Magnesium [Mass/Vol] 1.2 mg/dL 1.6-2.6 [facility] Urea nitrogen/Creatinine [Mass ratio] 12.5 mg/mg 10-20 [facility] Laboratory - Hematology and Cell countsOrdered By: Guanako Richardson on 12-30-2022 Erythrocyte distribution width (RBC) [Entitic vol] 46.6 fL 35.1-43.9 [facility] Erythrocyte distribution width (RBC) [Ratio] 13.5 % 11.6-14.6 [facility] Immature granulocytes/100 WBC (Bld) 0.200 % 0.0-0.9 [facility] Comment on above: IG% - Immature Granu locytes (promyelocytes, myelocytes and metamyelocytes) > 1% indicates that a LEFT SHIFT is Present. MCH (RBC) [Entitic mass] 29.8 pg 27.0-32.0 [facility] Nucleated RBC/100 WBC (Bld) [Ratio] 0 % 0-5 [facility] MCHC Auto (RBC) [Mass/Vol]Or dered By: Guanako Richardson on 12-30-2022 MCHC (RBC) [Mass/Vol] 31.8 g/dL 32-36 [facility] No Panel InformationOrdered By: Guanako Richardson on 12-30-2022 Estimated Creatinine Clearance Calc 88.79 ml/min [facility] Estimated GFR (MDRD) Amer 114 mL/min >60 [facility] Comment on above: GFR Calc Estimated GFR (MDRD) Non-Af Amer 94 mL/min >60 [facility] Comment on above: Non- GFR Calc Platelets bldOrdered By: Erick Richardson on 12-30-2022 Platelets (Bld) [#/Vol] 173 10*3/uL 150-450 [facility] Serum or plasma calcium liliana urement (mass/volume)Ordered By: Guanako Richardson on 12-30-2022 Calcium [Mass/Vol] 8.6 mg/dL 8.5-10.1 [facility] Serum or plasma creatinine m easurement (mass/volume)Ordered By: Guanako Richardson on 12-30-2022 Creatinine [Mass/Vol] 0.72 mg/dL 0.55-1.02 [facility] Comment on above: The validity of the calculated GFR & GFRAA in patients over 70 years has not been determined. Clinical correlation is essential. Serum or plasma urea nitroge n measurement (mass/volume)Ordered By: Guanako Richardson on 12-30-2022 Urea nitrogen [Mass/Vol] 9 mg/dL 7-18 [facility] Thin prep Papanicolaou smear with manual screeningOrdered By: Guanako Richardson on 12-30-2022 Thin prep Papanicolaou smear with manual screening 7 5-15 [facility] Chlamydia trachomatis rRNA d etection by probe and target amplification methodOrdered By: Sonia Lopez on 11-27-2022 C. trachomatis rRNA DAVI+probe Ql (Unsp spec) Negative Negative [facility] Gram stain for investigation of transfusion reactionOrdered By: Sonia Lopez on 11-27-2022 Microscopic observation Gram stain Nom (Unsp spec) [facility] Laboratory - Microbiology an d Antimicrobial susceptibilityOrdered By: Sonia Lopez on 11-27-2022 N. gonorrhoeae DNA DAVI+probe Ql (Unsp spec) Negative Negative [facility] Comment on above: Performed at: [address] [id number] Director: Mariana Wilkins MD, Phone: [phone] No Panel Informationon 11-27 POC Trichomonas (Rapid) Negative [facility] Thin prep Papanicolaou smear with manual screeningOrdered By: Sonia Lopez on 11-27-2022 Genital Culture Streptococcus agalactiae (B) [facility] Genital Culture Gardnerella vaginalis [facility] Absolute lymphocyte countOrd ered By: ED PROVIDER on 10-07-2022 Lymphocytes Auto (Unsp spec) [#/Vol] 1.88 10*3/uL 0.83-4.51 [facility] Basophil percentageOrdered B y: Sukhdev Pennington on 10-07-2022 Lactate [Moles/Vol] 1.1 mmol/L 0.4-2.0 [facility] Basophil percentage 0-5 SEEN /hpf 0-5 [facility] Basophil percentageOrdered B y: ED PROVIDER on 10-07-2022 Basophils/100 WBC (Bld) 0.7 % 0-1 [facility] Bilirubin [Mass/Vol] 0.30 mg/dL 0.20-1.00 [facility] Comment on above: For patients on eltr ombopag therapy, use of Dim[place] TBIL is not recommended. Chloride [Moles/Vol] 109 mmol/L 98-107 [facility] Eosinophils/100 WBC (Bld) 2.4 % 0-5 [facility] Glucose [Mass/Vol] 85 mg/dL 74-106 [facility] Neutrophils (Bld) [#/Vol] 3.1 10*3/uL 2.0-7.7 [facility] Neutrophils/100 WBC (Bld) 55.8 % 47-70 [facility] Potassium [Moles/Vol] 3.5 mmol/L 3.5-5.1 [facility] Protein [Mass/Vol] 6.5 g/dL 6.4-8.2 [facility] Sodium [Moles/Vol] 143 mmol/L 136-145 [facility] WBC (Bld) [#/Vol] 5.5 10*3/uL 4.4-11.0 [facility] Beta hCG serum qualOrdered B y: Sukhdev Pennington on 10-07-2022 Beta HCG ( test) Ql Negative [facility] Bilirubin Test strip Ql (U)O rdered By: Sukhdev Pennington on 10-07-2022 Bilirubin Ql (U) Negative Negative [facility] Blood erythrocytes count (nu mber/volume)Ordered By: ED PROVIDER on 10-07-2022 RBC (Bld) [#/Vol] 4.12 10*6/uL 4.2-5.4 [facility] Blood hemoglobin measurement (mass/volume)Ordered By: ED PROVIDER on 10-07-2022 Hemoglobin (Bld) [Mass/Vol] 12.3 g/dL 12.0-15.0 [facility] Blood lymphocytes/100 leukoc ytesOrdered By: ED PROVIDER on 10-07-2022 Lymphocytes/100 WBC (Bld) 34.2 % 19-41 [facility] Blood monocytes/100 leukocyt esOrdered By: ED PROVIDER on 10-07-2022 Monocytes/100 WBC (Bld) 6.7 % 0-[address] [facility] Blood platelet mean volumeOr dered By: ED PROVIDER on 10-07-2022 Platelet mean volume (Bld) [Entitic vol] 9.7 fL 6.2-12.0 [facility] Determination of erythrocyte mean corpuscular volume (MCV)Ordered By: ED PROVIDER on 10-07-2022 MCV (RBC) [Entitic vol] 93.4 fL 81-[address] [facility] Hematocrit Auto (Bld) [Volum e fraction]Ordered By: ED PROVIDER on 10-07-2022 Hematocrit (Bld) [Volume fraction] 38.5 % 37-47 [facility] Ketones Test strip Ql (U)Ord ered By: Sukhdev Pennington on 05-21-2023 Ketones Ql (U) 5 mg/dl Negative [facility] Laboratory - Chemistry and C hemistry - challengeOrdered By: ED PROVIDER on 10-07-2022 ALP [Catalytic activity/Vol] 79 U/L 45-117 [facility] ALT [Catalytic activity/Vol] 24 U/L 13-56 [facility] CO2 [Moles/Vol] 28.0 mmol/L 21.0-32.0 [facility] Globulin (S) [Mass/Vol] 3.5 g/dL 2.2-4.[address] [facility] Urea nitrogen/Creatinine [Mass ratio] 10.6 mg/mg 10-20 [facility] Laboratory - Hematology and Cell countsOrdered By: ED PROVIDER on 10-07-2022 Erythrocyte distribution width (RBC) [Entitic vol] 44.2 fL 35.1-43.9 [facility] Erythrocyte distribution width (RBC) [Ratio] 12.9 % 11.6-14.6 [facility] Immature granulocytes/100 WBC (Bld) 0.200 % 0.0-0.9 [facility] Comment on above: IG% - Immature Granu locytes (promyelocytes, myelocytes and metamyelocytes) > 1% indicates that a LEFT SHIFT is Present. MCH (RBC) [Entitic mass] 29.9 pg 27.0-32.0 [facility] Nucleated RBC/100 WBC (Bld) [Ratio] 0 % 0-5 [facility] MCHC Auto (RBC) [Mass/Vol]Or dered By: ED PROVIDER on 10-07-2022 MCHC (RBC) [Mass/Vol] 31.9 g/dL 32-36 [facility] Mucus LM Ql (Urine sed)Order ed By: Sukhdev Pennington on 10-07-2022 Mucus Ql (Urine sed) 0 SEEN /hpf [facility] Nitrite Test strip Ql (U)Ord ered By: Sukhdev Pennington on 10-07-2022 Nitrite Ql (U) Negative Negative [facility] No Panel InformationOrdered By: ED PROVIDER on 10-07-2022 Estimated Creatinine Clearance Calc 84.12 ml/min [facility] [facility] Estimated GFR (MDRD) Amer 108 mL/min >60 [facility] Comment on above: GFR Calc Estimated GFR (MDRD) Non-Af Amer 89 mL/min >60 [facility] Comment on above: Non- GFR Calc Platelets bldOrdered By: ED PROVIDER on 10-07-2022 Platelets (Bld) [#/Vol] 194 10*3/uL 150-450 [facility] Protein Test strip Ql (U)Ord ered By: Sukhdev Pennington on 10-07-2022 Protein Ql (U) 15 mg/dl Negative [facility] Serum or plasma albumin liliana urement (mass/volume)Ordered By: ED PROVIDER on 10-07-2022 Albumin [Mass/Vol] 3.0 g/dL 3.2-5.0 [facility] Serum or plasma albumin/glob ulin mass ratioOrdered By: ED PROVIDER on 10-07-2022 Albumin/Globulin [Mass ratio] 0.9 {ratio} 0.9-2.4 [facility] Serum or plasma calcium liliana urement (mass/volume)Ordered By: ED PROVIDER on 10-07-2022 Calcium [Mass/Vol] 8.1 mg/dL 8.5-10.1 [facility] Serum or plasma creatinine m easurement (mass/volume)Ordered By: ED PROVIDER on 10-07-2022 Creatinine [Mass/Vol] 0.76 mg/dL 0.55-1.02 [facility] Comment on above: The validity of the calculated GFR & GFRAA in patients over 70 years has not been determined. Clinical correlation is essential. Serum or plasma urea nitroge n measurement (mass/volume)Ordered By: ED PROVIDER on 10-07-2022 Urea nitrogen [Mass/Vol] 8 mg/dL 7-18 [facility] Squamous epithelial cells de tection in urine sediment by light microscopyOrdered By: Sukhdev Pennington on 10-07-2022 Epithelial cells.squamous LM Ql (Urine sed) 0-5 SEEN /hpf 5-10 [facility] Thin prep Papanicolaou smear with manual screeningOrdered By: ED PROVIDER on 10-07-2022 Thin prep Papanicolaou smear with manual screening 23 U/L 15-37 [facility] Thin prep Papanicolaou smear with manual screening 6 5-15 [facility] Urine blood detectionOrdered By: Sukhdev Pennington on 10-07-2022 RBC Ql (U) 25 /ul Negative [facility] RBC Ql (U) 0 SEEN /hpf 0-5 [facility] Urine clarityOrdered By: Lars Pennington on 10-07-2022 Clarity (U) Sl. Cloudy Clear [facility] Urine color determinationOrd ered By: Sukhdev Pennington on 10-07-2022 Color (U) Yellow Yellow [facility] Urine glucose detectionOrder ed By: Sukhdev Pennington on 10-07-2022 Glucose Ql (U) Normal mg/dl Normal [facility] Urine leukocyte esterase det ection by dipstickOrdered By: Sukhdev Pennington on 10-07-2022 Leukocyte esterase Test strip Ql (U) Negative Negative [facility] Urine pHOrdered By: Sukhdev mukherjee on 10-07-2022 pH (U) 5.0 [pH] 5.0 - 8.0 [facility] Urine sediment bacteria coun t by microscopy (number/high power field)Ordered By: Sukhdev Pennington on 10-07-2022 Bacteria LM.HPF (Urine sed) [#/Area] 0 /[HPF] None Seen [facility] Urine specific gravity measu rementOrdered By: Sukhdev Pennington on 10-07-2022 Specific gravity (U) [Rel density] 1.025 1.002-1.030 [facility] Urobilinogen Auto test strip Ql (U)Ordered By: Sukhdev Pennington on 10-07-2022 Urobilinogen Ql (U) Normal mg/dl Normal [facility] Absolute lymphocyte countOrd ered By: Kyler De Santiago on 09-15-2022 Lymphocytes Auto (Unsp spec) [#/Vol] 2.15 10*3/uL 0.83-4.51 [facility] Basophil percentageOrdered B y: Kyler De Santiago on 09-15-2022 Basophil percentage 0 SEEN /hpf 0-5 [facility] Basophils/100 WBC (Bld) 0.4 % 0-[address] [facility] Bilirubin [Mass/Vol] 0.50 mg/dL 0.20-1.00 [facility] Comment on above: For patients on eltr ombopag therapy, use of Dim[place] TBIL is not recommended. Chloride [Moles/Vol] 105 mmol/L 98-107 [facility] Eosinophils/100 WBC (Bld) 1.7 % 0-5 [facility] Glucose [Mass/Vol] 81 mg/dL 74-106 [facility] Lymphocytes/100 WBC (Bld) 30.0 % 19-41 [facility] Monocytes/100 WBC (Bld) 6.0 % 0-[address] [facility] Neutrophils (Bld) [#/Vol] 4.4 10*3/uL 2.0-7.7 [facility] Neutrophils/100 WBC (Bld) 61.6 % 47-70 [facility] Potassium [Moles/Vol] 3.5 mmol/L 3.5-5.1 [facility] Protein [Mass/Vol] 7.1 g/dL 6.4-8.2 [facility] Sodium [Moles/Vol] 138 mmol/L 136-145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 By: Dr. Salgado on 05-13-2022 Platelets (Bld) [#/Vol] 179 10*3/uL 150-450 [facility] Protein Test strip Ql (U)Ord ered By: Dr. Salgado on 05-13-2022 Protein Ql (U) 15 mg/dl Negative [facility] Serum or plasma albumin liliana urement (mass/volume)Ordered By: Dr. Salgado on 05-13-2022 Albumin [Mass/Vol] 3.3 g/dL 3.2-5.0 [facility] Serum or plasma albumin/glob ulin mass ratioOrdered By: Dr. Salgado on 05-13-2022 Albumin/Globulin [Mass ratio] 0.9 {ratio} 0.9-2.4 [facility] Serum or plasma calcium liliana urement (mass/volume)Ordered By: Dr. Salgado on 05-13-2022 Calcium [Mass/Vol] 8.5 mg/dL 8.5-10.1 [facility] Serum or plasma creatinine m easurement (mass/volume)Ordered By: Dr. Salgado on 05-13-2022 Creatinine [Mass/Vol] 0.69 mg/dL 0.55-1.02 [facility] Comment on above: The validity of the calculated GFR & GFRAA in patients over 70 years has not been determined. Clinical correlation is essential. Serum or plasma urea nitroge n measurement (mass/volume)Ordered By: Dr. Salgado on 05-13-2022 Urea nitrogen [Mass/Vol] 11 mg/dL 7-18 [facility] Squamous epithelial cells de tection in urine sediment by light microscopyOrdered By: Dr. Salgado on 05-13-2022 Epithelial cells.squamous LM Ql (Urine sed) 0 SEEN /hpf 5-10 [facility] Thin prep Papanicolaou smear with manual screeningOrdered By: Dr. Salgado on 05-13-2022 Thin prep Papanicolaou smear with manual screening 30 U/L 15-37 [facility] Comment on above: Moderate Hemolysis, Result may be falsely increased. Thin prep Papanicolaou smear with manual screening 3 5-15 [facility] Urine blood detectionOrdered By: Dr. Salgado on 05-13-2022 RBC Ql (U) 50 /ul Negative [facility] RBC Ql (U) 0 SEEN /hpf 0-5 [facility] Urine clarityOrdered By: Dr. Salgado on 05-13-2022 Clarity (U) Clear Clear [facility] Urine color determinationOrd ered By: Dr. Salgado on 05-13-2022 Color (U) Yellow Yellow [facility] Urine glucose detectionOrder ed By: Dr. Salgado on 05-13-2022 Glucose Ql (U) Normal mg/dl Normal [facility] Urine leukocyte esterase det ection by dipstickOrdered By: Dr. Salgado on 05-13-2022 Leukocyte esterase Test strip Ql (U) 500 /ul Negative [facility] Urine pHOrdered By: Dr. Jm merrill on 05-13-2022 pH (U) 5.0 [pH] 5.0 - 8.0 [facility] Urine sediment bacteria coun t by microscopy (number/high power field)Ordered By: Dr. Salgado on 05-13-2022 Bacteria LM.HPF (Urine sed) [#/Area] 2 /[HPF] None Seen [facility] Urine specific gravity measu rementOrdered By: Dr. Salgado on 05-13-2022 Specific gravity (U) [Rel density] 1.025 1.002-1.030 [facility] Urobilinogen Auto test strip Ql (U)Ordered By: Dr. Salgado on 05-13-2022 Urobilinogen Ql (U) Normal mg/dl Normal [facility] Absolute lymphocyte countOrd ered By: Dr. Richardson on 03-31-2022 Lymphocytes Auto (Unsp spec) [#/Vol] 1.25 10*3/uL 0.83-4.51 [facility] Basophil percentageOrdered B y: Dr. Richardson on 03-31-2022 Basophils/100 WBC (Bld) 0.5 % 0-[address] [facility] Chloride [Moles/Vol] 106 mmol/L 98-107 [facility] Eosin[facility]/100 WBC (Bld) 3.5 % 0-5 [facility] Glucose [Mass/Vol] 82 mg/dL 74-106 [facility] Neutrophils (Bld) [#/Vol] 3.6 10*3/uL 2.0-7.7 [facility] Neutrophils/100 WBC (Bld) 66.5 % 47-70 [facility] Potassium [Moles/Vol] 4.0 mmol/L 3.5-5.1 [facility] Comment on above: Moderate Hemolysis, Result may be falsely increased. Sodium [Moles/Vol] 138 mmol/L 136-145 [facility] WBC (Bld) [#/Vol] 5.5 10*3/uL 4.4-11.0 [facility] Blood erythrocytes count (nu mber/volume)Ordered By: Dr. Richardson on 03-31-2022 RBC (Bld) [#/Vol] 4.25 10*6/uL 4.2-5.4 [facility] Blood hemoglobin measurement (mass/volume)Ordered By: Dr. Richardson on 03-31-2022 Hemoglobin (Bld) [Mass/Vol] 12.9 g/dL 12.0-15.0 [facility] Blood lymphocytes/100 leukoc ytesOrdered By: Dr. Richardson on 03-31-2022 Lymphocytes/100 WBC (Bld) 22.9 % 19-41 [facility] Blood monocytes/100 leukocyt esOrdered By: Dr. Richardson on 03-31-2022 Monocytes/100 WBC (Bld) 6.2 % 0-[address] [facility] Blood platelet mean volumeOr dered By: Dr. Richardson on 03-31-2022 Platelet mean volume (Bld) [Entitic vol] 9.3 fL 6.2-12.0 [facility] Determination of erythrocyte mean corpuscular volume (MCV)Ordered By: Dr. Richardson on 03-31-2022 MCV (RBC) [Entitic vol] 92.9 fL 81-[address] [facility] Hematocrit Auto (Bld) [Volum e fraction]Ordered By: Dr. Richardson on 03-31-2022 Hematocrit (Bld) [Volume fraction] 39.5 % 37-47 [facility] Laboratory - Chemistry and C hemistry - challengeOrdered By: Dr. Richardson on 03-31-2022 CO2 [Moles/Vol] 25.0 mmol/L 21.0-32.0 [facility] Magnesium [Mass/Vol] 1.5 mg/dL 1.6-2.6 [facility] Comment on above: Moderate Hemolysis, Result may be falsely increased. Urea nitrogen/Creatinine [Mass ratio] 16.7 mg/mg 10-20 [facility] Laboratory - Hematology and Cell countsOrdered By: Dr. Richardson on 03-31-2022 Erythrocyte distribution width (RBC) [Entitic vol] 44.6 fL 35.1-43.9 [facility] Erythrocyte distribution width (RBC) [Ratio] 13.2 % 11.6-14.6 [facility] Immature granulocytes/100 WBC (Bld) 0.400 % 0.0-0.9 [facility] Comment on above: IG% - Immature Granu locytes (promyelocytes, myelocytes and metamyelocytes) > 1% indicates that a LEFT SHIFT is Present. MCH (RBC) [Entitic mass] 30.4 pg 27.0-32.0 [facility] Nucleated RBC/100 WBC (Bld) [Ratio] 0 % 0-5 [facility] MCHC Auto (RBC) [Mass/Vol]Or dered By: Dr. Richardson on 03-31-2022 MCHC (RBC) [Mass/Vol] 32.7 g/dL 32-36 [facility] No Panel InformationOrdered By: Dr. Richardson on 03-31-2022 Estimated Creatinine Clearance Calc 81.96 ml/min [facility] Estimated GFR (MDRD) Amer 105 mL/min >60 [facility] Comment on above: GFR Calc Estimated GFR (MDRD) Non-Af Amer 87 mL/min >60 [facility] Comment on above: Non- GFR Calc Platelets bldOrdered By: Dr. Richardson on 03-31-2022 Platelets (Bld) [#/Vol] 201 10*3/uL 150-450 [facility] Serum or plasma calcium liliana urement (mass/volume)Ordered By: Dr. Richardson on 03-31-2022 Calcium [Mass/Vol] 8.6 mg/dL 8.5-10.1 [facility] Serum or plasma creatinine m easurement (mass/volume)Ordered By: Dr. Richardson on 03-31-2022 Creatinine [Mass/Vol] 0.78 mg/dL 0.55-1.02 [facility] Comment on above: The validity of the calculated GFR & GFRAA in patients over 70 years has not been determined. Clinical correlation is essential. Serum or plasma urea nitroge n measurement (mass/volume)Ordered By: Dr. Richardson on 03-31-2022 Urea nitrogen [Mass/Vol] 13 mg/dL 7-18 [facility] Thin prep Papanicolaou smear with manual screeningOrdered By: Dr. Richardson on 03-31-2022 Thin prep Papanicolaou smear with manual screening 7 5-15 [facility] Absolute lymphocyte counton 08-22-2021 Lymphocytes Auto (Unsp spec) [#/Vol] 0.74 10*3/uL 0.83-4.51 [facility] Work Phone: Basophil percentageon 2021 Basophil percentage 2.5 mg/dL 2.5-4.9 [facility] Work Phone: Basophils/100 WBC (Bld) 0.3 % 0-[address] [facility] Work Phone: Chloride [Moles/Vol] 104 mmol/L 98-107 [facility] Work Phone: Eosinophils/100 WBC (Bld) 1.0 % 0-5 [facility] Work Phone: Glucose [Mass/Vol] 87 mg/dL 74-106 [facility] Work Phone: Neutrophils (Bld) [#/Vol] 2.0 10*3/uL 2.0-7.7 [facility] Work Phone: Neutrophils/100 WBC (Bld) 64.0 % 47-70 [facility] Work Phone: [phone] Potassium [Moles/Vol] 3.3 mmol/L 3.5-5.1 [facility] Work Phone: [phone] Sodium [Moles/Vol] 136 mmol/L 136-145 [facility] Work Phone: [phone] WBC (Bld) [#/Vol] 3.1 10*3/uL 4.4-11.0 [facility] Work Phone: [phone] Blood erythrocytes count (nu mber/volume)on 08-22-2021 RBC (Bld) [#/Vol] 4.43 10*6/uL 4.2-5.4 [facility] Work Phone: [phone] Blood hemoglobin measurement (mass/volume)on 08-22-2021 Hemoglobin (Bld) [Mass/Vol] 13.3 g/dL 12.0-15.0 [facility] Work Phone: [phone] Blood lymphocytes/100 leukoc yteson 08-22-2021 Lymphocytes/100 WBC (Bld) 24.0 % 19-41 [facility] Work Phone: Blood monocytes/100 leukocyt eson 08-22-2021 Monocytes/100 WBC (Bld) 10.1 % 0-[address] [facility] Work Phone: [phone] Blood platelet mean volumeon 08-22-2021 Platelet mean volume (Bld) [Entitic vol] 9.9 fL 6.2-12.0 [facility] Work Phone: Determination of erythrocyte mean corpuscular volume (MCV)on 08-22-2021 MCV (RBC) [Entitic vol] 91.0 fL 81-[address] [facility] Work Phone: [phone] Hematocrit Auto (Bld) [Volum e fraction]on 08-22-2021 Hematocrit (Bld) [Volume fraction] 40.3 % 37-47 [facility] Work Phone: [phone] Laboratory - Chemistry and C hemistry - challengeon 08-22-2021 CO2 [Moles/Vol] 27.0 mmol/L 21.0-32.0 [facility] Work Phone: [phone] Magnesium [Mass/Vol] 1.7 mg/dL 1.6-2.6 [facility] Work Phone: [phone] Urea nitrogen/Creatinine [Mass ratio] 8.8 mg/mg 10-20 [facility] Work Phone: [phone] Laboratory - Hematology and Cell countson 08-22-2021 Erythrocyte distribution width (RBC) [Entitic vol] 45.1 fL 35.1-43.9 [facility] Work Phone: [phone] Erythrocyte distribution width (RBC) [Ratio] 13.3 % 11.6-14.6 [facility] Work Phone: [phone] Immature granulocytes/100 WBC (Bld) 0.600 % 0.0-0.9 [facility] Work Phone: [phone] Comment on above: IG% - Immature Granu locytes (promyelocytes, myelocytes and metamyelocytes) > 1% indicates that a LEFT SHIFT is Present. MCH (RBC) [Entitic mass] 30.0 pg 27.0-32.0 [facility] Work Phone: [phone] Nucleated RBC/100 WBC (Bld) [Ratio] 0 % 0-5 [facility] Work Phone: [phone] MCHC Auto (RBC) [Mass/Vol]on 08-22-2021 MCHC (RBC) [Mass/Vol] 33.0 g/dL 32-36 [facility] Work Phone: [phone] Panel Informationon 08-22 Estimated Creatinine Clearance Calc 113.29 ml/min [facility] Work Phone: [phone] Estimated GFR (MDRD) Amer 150 mL/min >60 [facility] Work Phone: [phone] Comment on above: GFR Calc Estimated GFR (MDRD) Non-Af Amer 124 mL/min >60 [facility] Work Phone: Comment on above: Non- GFR Calc Platelets bldon 08-22-2021 Platelets (Bld) [#/Vol] 149 10*3/uL 150-450 [facility] Work Phone: Serum or plasma calcium liliana urement (mass/volume)on 08-22-2021 Calcium [Mass/Vol] 7.6 mg/dL 8.5-10.1 [facility] Work Phone: [phone] Serum or plasma creatinine m easurement (mass/volume)on 08-22-2021 Creatinine [Mass/Vol] 0.57 mg/dL 0.55-1.02 [facility] Work Phone: Comment on above: The validity of the calculated GFR & GFRAA in patients over 70 years has not been determined. Clinical correlation is essential. Serum or plasma urea nitroge n measurement (mass/volume)on 08-22-2021 Urea nitrogen [Mass/Vol] 5 mg/dL 7-18 [facility] Work Phone: [phone] Thin prep Papanicolaou smear with manual screeningon 08-22-2021 Thin prep Papanicolaou smear with manual screening 5 5-15 [facility] Work Phone: Review by pathologiston Pathologist review Demar (Unsp spec) [Interp] Reviewed [facility] Work Phone: Comment on above: Previous reported re sult: Ananya corcoran Edited by: RGOSEGUNDO on 08/21/21:1234LeukopeniaClinical correlation necessary.Jamel Rizzo M.D. 08/21/21 AMENDED REPORT 08/21/21 1234 PATH REV previously reported as: Ananya corcoran Basophil percentageon 2021 Lactate [Moles/Vol] 1.2 mmol/L 0.4-2.0 [facility] Work Phone: Basophil percentage 10-25 SEEN /hpf 0-5 [facility] Work Phone: [phone] Bilirubin Test strip Ql (U)o n 08-20-2021 Bilirubin Ql (U) Negative Negative [facility] Work Phone: Ketones Test strip Ql (U)on 08-20-2021 Ketones Ql (U) Negative Negative [facility] Work Phone: Mucus LM Ql (Urine sed)on Mucus Ql (Urine sed) 0 SEEN /hpf [facility] Work Phone: Nitrite Test strip Ql (U)on 08-20-2021 Nitrite Ql (U) Negative Negative [facility] Work Phone: Protein Test strip Ql (U)on 08-20-2021 Protein Ql (U) 30 mg/dl Negative [facility] Work Phone: Squamous epithelial cells de tection in urine sediment by light microscopyon 08-20-2021 Epithelial cells.squamous LM Ql (Urine sed) 0-5 SEEN /hpf 5-10 [facility] Work Phone: Urine blood detectionon RBC Ql (U) 150 /ul Negative [facility] Work Phone: RBC Ql (U) 0-5 SEEN /hpf 0-5 [facility] Work Phone: Urine clarityon 08-20-2021 Clarity (U) Sl. Cloudy Clear [facility] Work Phone: Urine color determinationon 08-20-2021 Color (U) Yellow Yellow [facility] Work Phone: Urine glucose detectionon Glucose Ql (U) Normal mg/dl Normal [facility] Work Phone: Urine leukocyte esterase det ection by dipstickon 08-20-2021 Leukocyte esterase Test strip Ql (U) 500 /ul Negative [facility] Work Phone: Urine pHon 08-20-2021 pH (U) 5.0 [pH] 5.0 - 8.0 [facility] Work Phone: Urine sediment bacteria coun t by microscopy (number/high power field)on 04-03-2022 Bacteria LM.HPF (Urine sed) [#/Area] RARE /hpf None Seen [facility] Work Phone: Urine specific gravity measu rementon 08-20-2021 Specific gravity (U) [Rel density] 1.015 1.002-1.030 [facility] Work Phone: Urobilinogen Auto test strip Ql (U)on 08-20-2021 Urobilinogen Ql (U) Normal mg/dl Normal [facility] Work Phone: Absolute lymphocyte counton 08-19-2021 Lymphocytes Auto (Unsp spec) [#/Vol] 1.03 10*3/uL 0.83-4.51 [facility] Work Phone: Basophil percentageon 2021 Basophil percentage 10-25 SEEN /hpf 0-5 [facility] Work Phone: Basophils/100 WBC (Bld) 0.3 % 0-[address] [facility] Work Phone: Chloride [Moles/Vol] 101 mmol/L 98-107 [facility] Work Phone: Eosinophils/100 WBC (Bld) 0.2 % 0-5 [facility] Work Phone: Glucose [Mass/Vol] 97 mg/dL 74-106 [facility] Work Phone: Neutrophils (Bld) [#/Vol] 4.7 10*3/uL 2.0-7.7 [facility] Work Phone: Neutrophils/100 WBC (Bld) 72.5 % 47-70 [facility] Work Phone: Potassium [Moles/Vol] 3.1 mmol/L 3.5-5.1 [facility] Work Phone: Sodium [Moles/Vol] 135 mmol/L 136-145 [facility] Work Phone: WBC (Bld) [#/Vol] 6.5 10*3/uL 4.4-11.0 [facility] Work Phone: Bilirubin Test strip Ql (U)o n 08-19-2021 Bilirubin Ql (U) Negative Negative [facility] Work Phone: Blood erythrocytes count (nu mber/volume)on 08-19-2021 RBC (Bld) [#/Vol] 4.53 10*6/uL 4.2-5.4 [facility] Work Phone: Blood hemoglobin measurement (mass/volume)on 08-19-2021 Hemoglobin (Bld) [Mass/Vol] 13.7 g/dL 12.0-15.0 [facility] Work Phone: Blood lymphocytes/100 leukoc yteson 08-19-2021 Lymphocytes/100 WBC (Bld) 15.7 % 19-41 [facility] Work Phone: Blood monocytes/100 leukocyt eson 08-19-2021 Monocytes/100 WBC (Bld) 11.0 % 0-[address] [facility] Work Phone: Blood platelet mean volumeon 08-19-2021 Platelet mean volume (Bld) [Entitic vol] 9.4 fL 6.2-12.0 [facility] Work Phone: Culture, urineon 08-19-2021 Bacteria identified Cx Nom (U) Escherichia coli [facility] Work Phone: Determination of erythrocyte mean corpuscular volume (MCV)on 08-19-2021 MCV (RBC) [Entitic vol] 91.8 fL 81-[address] [facility] Work Phone: Hematocrit Auto (Bld) [Volum e fraction]on 08-19-2021 Hematocrit (Bld) [Volume fraction] 41.6 % 37-47 [facility] Work Phone: Ketones Test strip Ql (U)on 08-19-2021 Ketones Ql (U) 15 mg/dl Negative [facility] Work Phone: Laboratory - Chemistry and C hemistry - challengeon 08-19-2021 CO2 [Moles/Vol] 28.0 mmol/L 21.0-32.0 [facility] Work Phone: [phone] Magnesium [Mass/Vol] 1.1 mg/dL 1.6-2.6 [facility] Work Phone: [phone] Urea nitrogen/Creatinine [Mass ratio] 11.5 mg/mg 10-20 [facility] Work Phone: [phone] Laboratory - Hematology and Cell countson 08-19-2021 Erythrocyte distribution width (RBC) [Entitic vol] 43.6 fL 35.1-43.9 [facility] Work Phone: [phone] Erythrocyte distribution width (RBC) [Ratio] 12.9 % 11.6-14.6 [facility] Work Phone: [phone] Immature granulocytes/100 WBC (Bld) 0.300 % 0.0-0.9 [facility] Work Phone: [phone] Comment on above: IG% - Immature Granu locytes (promyelocytes, myelocytes and metamyelocytes) > 1% indicates that a LEFT SHIFT is Present. MCH (RBC) [Entitic mass] 30.2 pg 27.0-32.0 [facility] Work Phone: [phone] Nucleated RBC/100 WBC (Bld) [Ratio] 0 % 0-5 [facility] Work Phone: [phone] MCHC Auto (RBC) [Mass/Vol]on 08-19-2021 MCHC (RBC) [Mass/Vol] 32.9 g/dL 32-36 [facility] Work Phone: [phone] Mucus LM Ql (Urine sed)on Mucus Ql (Urine sed) 0 SEEN /hpf [facility] Work Phone: [phone] Nitrite Test strip Ql (U)on 08-19-2021 Nitrite Ql (U) Positive Negative [facility] Work Phone: [phone] Panel Informationon 08-19 Estimated Creatinine Clearance Calc 105.86 ml/min [facility] Work Phone: [phone] Estimated GFR (MDRD) Amer 140 mL/min >60 [facility] Work Phone: Comment on above: GFR Calc Estimated GFR (MDRD) Non-Af Amer 116 mL/min >60 [facility] Work Phone: Comment on above: Non- GFR Calc Platelets bldon 08-19-2021 Platelets (Bld) [#/Vol] 184 10*3/uL 150-450 [facility] Work Phone: Protein Test strip Ql (U)on 08-19-2021 Protein Ql (U) 30 mg/dl Negative [facility] Work Phone: [phone] Serum or plasma calcium liliana urement (mass/volume)on 08-19-2021 Calcium [Mass/Vol] 9.2 mg/dL 8.5-10.1 [facility] Work Phone: Serum or plasma creatinine m easurement (mass/volume)on 08-19-2021 Creatinine [Mass/Vol] 0.61 mg/dL 0.55-1.02 [facility] Work Phone: Comment on above: The validity of the calculated GFR & GFRAA in patients over 70 years has not been determined. Clinical correlation is essential. Serum or plasma urea nitroge n measurement (mass/volume)on 08-19-2021 Urea nitrogen [Mass/Vol] 7 mg/dL 7-18 [facility] Work Phone: Squamous epithelial cells de tection in urine sediment by light microscopyon 08-19-2021 Epithelial cells.squamous LM Ql (Urine sed) 0 SEEN /hpf 5-10 [facility] Work Phone: [phone] Thin prep Papanicolaou smear with manual screeningon 08-19-2021 Thin prep Papanicolaou smear with manual screening 6 5-15 [facility] Work Phone: [phone] Urine blood detectionon RBC Ql (U) 250 /ul Negative [facility] Work Phone: [phone] RBC Ql (U) 0-5 SEEN /hpf 0-5 [facility] Work Phone: [phone] Urine clarityon 08-19-2021 Clarity (U) Sl. Cloudy Clear [facility] Work Phone: Urine color determinationon 08-19-2021 Color (U) Yellow Yellow [facility] Work Phone: Urine glucose detectionon Glucose Ql (U) Normal mg/dl Normal [facility] Work Phone: Urine leukocyte esterase det ection by dipstickon 08-19-2021 Leukocyte esterase Test strip Ql (U) 500 /ul Negative [facility] Work Phone: Urine pHon 08-19-2021 pH (U) 6.0 [pH] 5.0 - 8.0 [facility] Work Phone: Urine sediment bacteria coun t by microscopy (number/high power field)on 08-19-2021 Bacteria LM.HPF (Urine sed) [#/Area] 2 /[HPF] None Seen [facility] Work Phone: Urine specific gravity measu rementon 08-19-2021 Specific gravity (U) [Rel density] 1.010 1.002-1.030 [facility] Work Phone: Urobilinogen Auto test strip Ql (U)on 08-19-2021 Urobilinogen Ql (U) Normal mg/dl Normal [facility] Work Phone: Absolute lymphocyte counton 07-25-2021 Lymphocytes Auto (Unsp spec) [#/Vol] 1.10 10*3/uL 0.83-4.51 [facility] Work Phone: Basophil percentageon 2021 Basophils/100 WBC (Bld) 0.5 % 0-[address] [facility] Work Phone: Chloride [Moles/Vol] 106 mmol/L 98-107 [facility] Work Phone: Eosinophils/100 WBC (Bld) 1.8 % 0-5 [facility] Work Phone: Glucose [Mass/Vol] 90 mg/dL 74-106 [facility] Work Phone: Neutrophils (Bld) [#/Vol] 4.9 10*3/uL 2.0-7.7 [facility] Work Phone: [phone] Neutrophils/100 WBC (Bld) 73.9 % 47-70 [facility] Work Phone: [phone] Potassium [Moles/Vol] 3.9 mmol/L 3.5-5.1 [facility] Work Phone: [phone] Comment on above: Moderate Hemolysis, Result may be falsely increased. Sodium [Moles/Vol] 138 mmol/L 136-145 [facility] Work Phone: [phone] WBC (Bld) [#/Vol] 6.6 10*3/uL 4.4-11.0 [facility] Work Phone: [phone] Blood erythrocytes count (nu mber/volume)on 07-25-2021 RBC (Bld) [#/Vol] 4.57 10*6/uL 4.2-5.4 [facility] Work Phone: [phone] Blood hemoglobin measurement (mass/volume)on 07-25-2021 Hemoglobin (Bld) [Mass/Vol] 14.0 g/dL 12.0-15.0 [facility] Work Phone: [phone] Blood lymphocytes/100 leukoc yteson 07-25-2021 Lymphocytes/100 WBC (Bld) 16.6 % 19-41 [facility] Work Phone: [phone] Blood monocytes/100 leukocyt eson 07-25-2021 Monocytes/100 WBC (Bld) 6.9 % 0-[address] [facility] Work Phone: [phone] Blood platelet mean volumeon 07-25-2021 Platelet mean volume (Bld) [Entitic vol] 10.6 fL 6.2-12.0 [facility] Work Phone: [phone] Determination of erythrocyte mean corpuscular volume (MCV)on 07-25-2021 MCV (RBC) [Entitic vol] 94.1 fL 81-[address] [facility] Work Phone: [phone] Hematocrit Auto (Bld) [Volum e fraction]on 07-25-2021 Hematocrit (Bld) [Volume fraction] 43.0 % 37-47 [facility] Work Phone: [phone] Laboratory - Chemistry and C hemistry - challengeon 07-25-2021 CO2 [Moles/Vol] 27.0 mmol/L 21.0-32.0 [facility] Work Phone: [phone] Urea nitrogen/Creatinine [Mass ratio] 11.3 mg/mg 10-20 [facility] Work Phone: [phone] Laboratory - Hematology and Cell countson 07-25-2021 Erythrocyte distribution width (RBC) [Entitic vol] 44.8 fL 35.1-43.9 [facility] Work Phone: [phone] Erythrocyte distribution width (RBC) [Ratio] 13.0 % 11.6-14.6 [facility] Work Phone: [phone] Immature granulocytes/100 WBC (Bld) 0.300 % 0.0-0.9 [facility] Work Phone: [phone] Comment on above: IG% - Immature Granu locytes (promyelocytes, myelocytes and metamyelocytes) > 1% indicates that a LEFT SHIFT is Present. MCH (RBC) [Entitic mass] 30.6 pg 27.0-32.0 [facility] Work Phone: [phone] Nucleated RBC/100 WBC (Bld) [Ratio] 0 % 0-5 [facility] Work Phone: [phone] MCHC Auto (RBC) [Mass/Vol]on 07-25-2021 MCHC (RBC) [Mass/Vol] 32.6 g/dL 32-36 [facility] Work Phone: [phone] Panel Informationon 07-25 Estimated Creatinine Clearance Calc 90.95 ml/min [facility] Work Phone: [phone] Estimated GFR (MDRD) Amer 117 mL/min >60 [facility] Work Phone: [phone] Comment on above: GFR Calc Estimated GFR (MDRD) Non-Af Amer 97 mL/min >60 [facility] Work Phone: Comment on above: Non- GFR Calc Platelets bldon 07-25-2021 Platelets (Bld) [#/Vol] 242 10*3/uL 150-450 [facility] Work Phone: Serum or plasma calcium liliana urement (mass/volume)on 07-25-2021 Calcium [Mass/Vol] 9.0 mg/dL 8.5-10.1 [facility] Work Phone: Serum or plasma creatinine m easurement (mass/volume)on 07-25-2021 Creatinine [Mass/Vol] 0.71 mg/dL 0.55-1.02 [facility] Work Phone: Comment on above: The validity of the calculated GFR & GFRAA in patients over 70 years has not been determined. Clinical correlation is essential. Serum or plasma urea nitroge n measurement (mass/volume)on 07-25-2021 Urea nitrogen [Mass/Vol] 8 mg/dL 7-18 [facility] Work Phone: Thin prep Papanicolaou smear with manual screeningon 07-25-2021 Thin prep Papanicolaou smear with manual screening 5 5-15 [facility] Work Phone: Absolute lymphocyte counton 05-18-2021 Lymphocytes Auto (Unsp spec) [#/Vol] 1.02 10*3/uL 0.83-4.51 [facility] Work Phone: Basophil percentageon 2020 Chloride [Moles/Vol] 108 mmol/L 98-107 [facility] Work Phone: Eosinophils/100 WBC (Bld) 1.5 % 0-5 [facility] Work Phone: Glucose [Mass/Vol] 94 mg/dL 74-106 [facility] Work Phone: Comment on above: Please note revised GLUCOSE reference range effective 2017. Neutrophils (Bld) [#/Vol] 2.3 10*3/uL 2.0-7.7 [facility] Work Phone: Potassium [Moles/Vol] 3.4 mmol/L 3.5-5.1 [facility] Work Phone: Sodium [Moles/Vol] 140 mmol/L 136-145 [facility] Work Phone: [phone] WBC (Bld) [#/Vol] 3.9 10*3/uL 4.4-11.0 [facility] Work Phone: [phone] Basophil percentage 0-5 SEEN /hpf [facility] Work Phone: [phone] Beta hCG serum qualon 2020 Beta HCG ( test) Ql Negative [facility] Work Phone: [phone] Bilirubin Test strip Ql (U)o n 05-18-2021 Bilirubin Ql (U) Negative Negative [facility] Work Phone: [phone] Blood erythrocytes count (nu mber/volume)on 05-18-2021 RBC (Bld) [#/Vol] 4.14 10*6/uL 4.2-5.4 [facility] Work Phone: [phone] Blood hemoglobin measurement (mass/volume)on 05-18-2021 Hemoglobin (Bld) [Mass/Vol] 12.3 g/dL 12.0-15.0 [facility] Work Phone: [phone] Blood lymphocytes/100 leukoc yteson 05-18-2021 Lymphocytes/100 WBC (Bld) 26.0 % 19-41 [facility] Work Phone: [phone] Blood monocytes/100 leukocyt eson 05-18-2021 Monocytes/100 WBC (Bld) 13.5 % 0-[address] [facility] Work Phone: [phone] Blood platelet mean volumeon 05-18-2021 Platelet mean volume (Bld) [Entitic vol] 9.2 fL 6.2-12.0 [facility] Work Phone: [phone] Determination of erythrocyte mean corpuscular volume (MCV)on 05-18-2021 MCV (RBC) [Entitic vol] 91.3 fL 81-[address] [facility] Work Phone: [phone] Hematocrit Auto (Bld) [Volum e fraction]on 05-18-2021 Hematocrit (Bld) [Volume fraction] 37.8 % 37-47 [facility] Work Phone: [phone] Ketones Test strip Ql (U)on 05-18-2021 Ketones Ql (U) 5 mg/dl Negative [facility] Work Phone: [phone] Laboratory - Chemistry and C hemistry - challengeon 05-18-2021 CO2 [Moles/Vol] 25.0 mmol/L 21.0-32.0 [facility] Work Phone: [phone] Urea nitrogen/Creatinine [Mass ratio] 14.5 mg/mg 10-20 [facility] Work Phone: [phone] Laboratory - Hematology and Cell countson 05-18-2021 Basophils/100 WBC (Unsp spec) 0.8 % 0-1 [facility] Work Phone: [phone] Erythrocyte distribution width (RBC) [Entitic vol] 41.8 fL 35.1-43.9 [facility] Work Phone: [phone] Erythrocyte distribution width (RBC) [Ratio] 12.6 % 11.6-14.6 [facility] Work Phone: [phone] Immature granulocytes/100 WBC (Bld) 0.300 % 0.0-0.9 [facility] Work Phone: [phone] Comment on above: IG% - Immature Granu locytes (promyelocytes, myelocytes and metamyelocytes) > 1% indicates that a LEFT SHIFT is Present. MCH (RBC) [Entitic mass] 29.7 pg 27.0-32.0 [facility] Work Phone: [phone] Neutrophils/100 WBC (Bld) 57.9 % 47-70 [facility] Work Phone: [phone] Nucleated RBC/100 WBC (Bld) [Ratio] 0 % 0-5 [facility] Work Phone: [phone] MCHC Auto (RBC) [Mass/Vol]on 05-18-2021 MCHC (RBC) [Mass/Vol] 32.5 g/dL 32-36 [facility]: Mucus LM Ql (Urine sed)on Mucus Ql (Urine sed) 1+ /hpf [facility] Work Phone: Nitrite Test strip Ql (U)on 05-18-2021 Nitrite Ql (U) Negative Negative [facility] Work Phone: No Panel Informationon 05-18 Estimated Creatinine Clearance Calc 66.57 ml/min [facility] Work Phone: [phone] Estimated GFR (MDRD) Amer 82 mL/min >60 [facility] Work Phone: Comment on above: GFR Calc Estimated GFR (MDRD) Non-Af Amer 68 mL/min >60 [facility] Work Phone: Comment on above: Non- GFR Calc Platelets bldon 05-18-2021 Platelets (Bld) [#/Vol] 182 10*3/uL 150-450 [facility] Work Phone: Protein Test strip Ql (U)on 05-18-2021 Protein Ql (U) 15 mg/dl Negative [facility] Work Phone: [phone] Serum or plasma calcium liliana urement (mass/volume)on 05-18-2021 Calcium [Mass/Vol] 8.2 mg/dL 8.5-10.1 [facility] Work Phone: [phone] Serum or plasma creatinine m easurement (mass/volume)on 05-18-2021 Creatinine [Mass/Vol] 0.97 mg/dL 0.55-1.02 [facility] Work Phone: Comment on above: The validity of the calculated GFR & GFRAA in patients over 70 years has not been determined. Clinical correlation is essential. Serum or plasma urea nitroge n measurement (mass/volume)on 05-18-2021 Urea nitrogen [Mass/Vol] 14 mg/dL 7-18 [facility] Work Phone: Squamous epithelial cells de tection in urine sediment by light microscopyon 05-18-2021 Epithelial cells.squamous LM Ql (Urine sed) 0-5 SEEN /hpf [facility] Work Phone: Thin prep Papanicolaou smear with manual screeningon 05-18-2021 Thin prep Papanicolaou smear with manual screening 7 5-15 [facility] Work Phone: Urine blood detectionon -3 0 RBC Ql (U) 25 /ul Negative [facility] Work Phone: RBC Ql (U) 0-5 SEEN /hpf [facility] Work Phone: Urine clarityon 05-18-2021 Clarity (U) Clear Clear [facility] Work Phone: Urine color determinationon 05-18-2021 Color (U) Yellow Yellow [facility] Work Phone: Urine glucose detectionon Glucose Ql (U) Normal mg/dl Normal [facility] Work Phone: Urine leukocyte esterase det ection by dipstickon 05-18-2021 Leukocyte esterase Test strip Ql (U) 100 /ul Negative [facility] Work Phone: Urine pHon 05-18-2021 pH (U) 5.0 [pH] [facility] Work Phone: Urine sediment bacteria coun t by microscopy (number/high power field)on 05-18-2021 Bacteria LM.HPF (Urine sed) [#/Area] RARE /hpf None Seen [facility] Work Phone: Urine specific gravity measu rementon 05-18-2021 Specific gravity (U) [Rel density] 1.025 [facility] Work Phone: Urobilinogen Auto test strip Ql (U)on 05-18-2021 Urobilinogen Ql (U) Normal mg/dl Normal [facility] Work Phone: Absolute lymphocyte counton 05-11-2021 Lymphocytes Auto (Unsp spec) [#/Vol] 1.77 10*3/uL 0.83-4.51 [facility] Work Phone: Basophil percentageon 2020 Basophil percentage 10-25 SEEN /hpf [facility] Work Phone: Chloride [Moles/Vol] 109 mmol/L 98-107 [facility] Work Phone: Eosinophils/100 WBC (Bld) 3.3 % 0-5 [facility] Work Phone: Glucose [Mass/Vol] 89 mg/dL 74-106 [facility] Work Phone: Comment on above: Please note revised GLUCOSE reference range effective 2017. Neutrophils (Bld) [#/Vol] 4.6 10*3/uL 2.0-7.7 [facility] Work Phone: Potassium [Moles/Vol] 3.7 mmol/L 3.5-5.1 [facility] Work Phone: Sodium [Moles/Vol] 141 mmol/L 136-145 [facility] Work Phone: WBC (Bld) [#/Vol] 7.3 10*3/uL 4.4-11.0 [facility] Work Phone: Bilirubin Test strip Ql (U)o n 05-11-2021 Bilirubin Ql (U) Negative Negative [facility] Work Phone: [phone] Blood erythrocytes count (nu mber/volume)on 05-11-2021 RBC (Bld) [#/Vol] 4.46 10*6/uL 4.2-5.4 [facility] Work Phone: Blood hemoglobin measurement (mass/volume)on 05-11-2021 Hemoglobin (Bld) [Mass/Vol] 13.3 g/dL 12.0-15.0 [facility] Work Phone: Blood lymphocytes/100 leukoc yteson 05-11-2021 Lymphocytes/100 WBC (Bld) 24.3 % 19-41 [facility] Work Phone: Blood monocytes/100 leukocyt eson 05-11-2021 Monocytes/100 WBC (Bld) 8.3 % 0-[address] [facility] Work Phone: Blood platelet mean volumeon 05-11-2021 Platelet mean volume (Bld) [Entitic vol] 9.6 fL 6.2-12.0 [facility] Work Phone: [phone] Culture, urineon 05-11-2021 Bacteria identified Cx Nom (U) Presumptive Lactobacillus sp. [facility] Work Phone: [phone] Determination of erythrocyte mean corpuscular volume (MCV)on 05-11-2021 MCV (RBC) [Entitic vol] 92.4 fL 81-[address] [facility] Work Phone: [phone] Hematocrit Auto (Bld) [Volum e fraction]on 05-11-2021 Hematocrit (Bld) [Volume fraction] 41.2 % 37-47 [facility] Work Phone: [phone] Ketones Test strip Ql (U)on 05-11-2021 Ketones Ql (U) Negative Negative [facility] Work Phone: Laboratory - Chemistry and C hemistry - challengeon 05-11-2021 CO2 [Moles/Vol] 29.0 mmol/L 21.0-32.0 [facility] Work Phone: [phone] Urea nitrogen/Creatinine [Mass ratio] 13.4 mg/mg 10-20 [facility] Work Phone: [phone] Laboratory - Hematology and Cell countson 05-11-2021 Basophils/100 WBC (Unsp spec) 0.7 % 0-1 [facility] Work Phone: [phone] Erythrocyte distribution width (RBC) [Entitic vol] 43.2 fL 35.1-43.9 [facility] [facility] Work Phone: [phone] Erythrocyte distribution width (RBC) [Ratio] 12.7 % 11.6-14.6 [facility] Work Phone: [phone] Immature granulocytes/100 WBC (Bld) 0.100 % 0.0-0.9 [facility] Work Phone: [phone] Comment on above: IG% - Immature Granu locytes (promyelocytes, myelocytes and metamyelocytes) > 1% indicates that a LEFT SHIFT is Present. MCH (RBC) [Entitic mass] 29.8 pg 27.0-32.0 [facility] Work Phone: [phone] Neutrophils/100 WBC (Bld) 63.3 % 47-70 [facility] Work Phone: [phone] Nucleated RBC/100 WBC (Bld) [Ratio] 0 % 0-5 [facility] Work Phone: [phone] MCHC Auto (RBC) [Mass/Vol]on 05-11-2021 MCHC (RBC) [Mass/Vol] 32.3 g/dL 32-36 [facility] Work Phone: Mucus LM Ql (Urine sed)on Mucus Ql (Urine sed) 1+ /hpf [facility] Work Phone: [phone] Nitrite Test strip Ql (U)on 05-11-2021 Nitrite Ql (U) Negative Negative [facility] Work Phone: No Panel Informationon 05-11 Estimated Creatinine Clearance Calc 71.75 ml/min [facility] Work Phone: Estimated GFR (MDRD) Amer 90 mL/min >60 [facility] Work Phone: Comment on above: GFR Calc Estimated GFR (MDRD) Non-Af Amer 74 mL/min >60 [facility] Work Phone: [phone] Comment on above: Non- GFR Calc Platelets bldon 05-11-2021 Platelets (Bld) [#/Vol] 225 10*3/uL 150-450 [facility] Work Phone: [phone] Protein Test strip Ql (U)on 05-11-2021 Protein Ql (U) 30 mg/dl Negative [facility] Work Phone: [phone] Serum or plasma calcium liliana urement (mass/volume)on 05-11-2021 Calcium [Mass/Vol] 9.4 mg/dL 8.5-10.1 [facility] Work Phone: [phone] Serum or plasma creatinine m easurement (mass/volume)on 05-11-2021 Creatinine [Mass/Vol] 0.90 mg/dL 0.55-1.02 [facility] Work Phone: Comment on above: The validity of the calculated GFR & GFRAA in patients over 70 years has not been determined. Clinical correlation is essential. Serum or plasma urea nitroge n measurement (mass/volume)on 05-11-2021 Urea nitrogen [Mass/Vol] 12 mg/dL 7-18 [facility] Work Phone: Squamous epithelial cells de tection in urine sediment by light microscopyon 05-11-2021 Epithelial cells.squamous LM Ql (Urine sed) 0-5 SEEN /hpf [facility] Work Phone: Thin prep Papanicolaou smear with manual screeningon 05-11-2021 Thin prep Papanicolaou smear with manual screening 3 5-15 [facility] Work Phone: Urine blood detectionon 04-20 RBC Ql (U) 150 /ul Negative [facility] Work Phone: [phone] RBC Ql (U) 10-25 SEEN /hpf [facility] Work Phone: Urine clarityon 05-11-2021 Clarity (U) Sl. Cloudy Clear [facility] Work Phone: Urine color determinationon 05-11-2021 Color (U) Yellow Yellow [facility] Work Phone: Urine glucose detectionon Glucose Ql (U) Normal mg/dl Normal [facility] Work Phone: [phone] Urine leukocyte esterase det ection by dipstickon 05-11-2021 Leukocyte esterase Test strip Ql (U) 100 /ul Negative [facility] Work Phone: [phone] Urine pHon 05-11-2021 pH (U) 6.0 [pH] [facility] Work Phone: [phone] Urine sediment bacteria coun t by microscopy (number/high power field)on 05-11-2021 Bacteria LM.HPF (Urine sed) [#/Area] 1 /[HPF] None Seen [facility] Work Phone: Urine specific gravity measu rementon 05-11-2021 Specific gravity (U) [Rel density] 1.020 [facility] Work Phone: Urobilinogen Auto test strip Ql (U)on 05-11-2021 Urobilinogen Ql (U) Normal mg/dl Normal [facility] Work Phone: Basophil percentageon 2020 Basophil percentage 0-5 SEEN /hpf [facility] Work Phone: Bilirubin Test strip Ql (U)o n 05-01-2021 Bilirubin Ql (U) Negative Negative [facility] Work Phone: Ketones Test strip Ql (U)on 05-01-2021 Ketones Ql (U) Negative Negative [facility] Work Phone: Laboratory - Chemistry and C hemistry - challengeon 05-01-2021 HCG ( test) Ql (U) Negative [facility] Work Phone: Comment on above: Very dilute urine sp ecimens, as indicated by a low specificgravity, may not contain corporate sales representative levels of hCG. If is still suspected, a first morning urinespecimen should be collected 48 hours later and tested. Mucus LM Ql (Urine sed)on Mucus Ql (Urine sed) 0 SEEN /hpf [facility] Work Phone: Nitrite Test strip Ql (U)on 05-01-2021 Nitrite Ql (U) Negative Negative [facility] Work Phone: Protein Test strip Ql (U)on 05-01-2021 Protein Ql (U) 30 mg/dl Negative [facility] Work Phone: Squamous epithelial cells de tection in urine sediment by light microscopyon 05-01-2021 Epithelial cells.squamous LM Ql (Urine sed) 0-5 SEEN /hpf [facility] Work Phone: Urine blood detectionon 04-19 RBC Ql (U) 50 /ul Negative [facility] Work Phone: RBC Ql (U) 0-5 SEEN /hpf [facility] Work Phone: Urine clarityon 05-01-2021 Clarity (U) Clear Clear [facility] Work Phone: Urine color determinationon 05-01-2021 Color (U) Yellow Yellow [facility] Work Phone: Urine glucose detectionon Glucose Ql (U) Normal mg/dl Normal [facility] Work Phone: Urine leukocyte esterase det ection by dipstickon 05-01-2021 Leukocyte esterase Test strip Ql (U) 100 /ul Negative [facility] Work Phone: Urine pHon 05-01-2021 pH (U) 6.0 [pH] [facility] Work Phone: Urine sediment bacteria coun t by microscopy (number/high power field)on 05-01-2021 Bacteria LM.HPF (Urine sed) [#/Area] 0 /[HPF] None Seen [facility] Work Phone: Urine specific gravity measu rementon 05-01-2021 Specific gravity (U) [Rel density] 1.025 [facility] Work Phone: Urobilinogen Auto test strip Ql (U)on 05-01-2021 Urobilinogen Ql (U) Normal mg/dl Normal [facility] Work Phone: Absolute lymphocyte counton 04-25-2021 Lymphocytes Auto (Unsp spec) [#/Vol] 1.74 10*3/uL 0.83-4.51 [facility] Work Phone: Basophil percentageon 2020 Chloride [Moles/Vol] 107 mmol/L 98-107 [facility] Work Phone: Eosinophils/100 WBC (Bld) 2.0 % 0-5 [facility] Work Phone: Glucose [Mass/Vol] 87 mg/dL 74-106 [facility] Work Phone: Comment on above: Please note revised GLUCOSE reference range effective 2017. Neutrophils (Bld) [#/Vol] 4.4 10*3/uL 2.0-7.7 [facility] Work Phone: Potassium [Moles/Vol] 4.4 mmol/L 3.5-5.1 [facility] Work Phone: [phone] Comment on above: Moderate Hemolysis, Result may be falsely increased. Sodium [Moles/Vol] 142 mmol/L 136-145 [facility] Work Phone: [phone] WBC (Bld) [#/Vol] 6.7 10*3/uL 4.4-11.0 [facility] Work Phone: Basophil percentage 0-5 SEEN /hpf [facility] Work Phone: Bilirubin Test strip Ql (U)o n 04-25-2021 Bilirubin Ql (U) 3 mg/dL Negative [facility] Work Phone: Comment on above: COLOR OF URINE MAY A FFECT DIPSTICK RESULTS. Blood erythrocytes count (nu mber/volume)on 04-25-2021 RBC (Bld) [#/Vol] 4.22 10*6/uL 4.2-5.4 [facility] Work Phone: Blood hemoglobin measurement (mass/volume)on 04-25-2021 Hemoglobin (Bld) [Mass/Vol] 12.6 g/dL 12.0-15.0 [facility] Work Phone: Blood lymphocytes/100 leukoc yteson 04-25-2021 Lymphocytes/100 WBC (Bld) 26.2 % 19-41 [facility] Work Phone: Blood monocytes/100 leukocyt eson 04-25-2021 Monocytes/100 WBC (Bld) 5.9 % 0-[address] [facility] Work Phone: Blood platelet mean volumeon 04-25-2021 Platelet mean volume (Bld) [Entitic vol] 9.2 fL 6.2-12.0 [facility] Work Phone: Culture, urineon 04-25-2021 Bacteria identified Cx Nom (U) Culture exhibits no growth. [facility] Work Phone: Determination of erythrocyte mean corpuscular volume (MCV)on 04-25-2021 MCV (RBC) [Entitic vol] 92.7 fL 81-[address] [facility] Work Phone: [phone] Hematocrit Auto (Bld) [Volum e fraction]on 04-25-2021 Hematocrit (Bld) [Volume fraction] 39.1 % 37-47 [facility] Work Phone: [phone] Ketones Test strip Ql (U)on 04-25-2021 Ketones Ql (U) Negative Negative [facility] Work Phone: [phone] Laboratory - Chemistry and C hemistry - challengeon 04-25-2021 CO2 [Moles/Vol] 31.0 mmol/L 21.0-32.0 [facility] Work Phone: [phone] Urea nitrogen/Creatinine [Mass ratio] 12.8 mg/mg 10-20 [facility] Work Phone: [phone] Laboratory - Hematology and Cell countson 04-25-2021 Basophils/100 WBC (Unsp spec) 0.5 % 0-1 [facility] Work Phone: [phone] Erythrocyte distribution width (RBC) [Entitic vol] 44.7 fL 35.1-43.9 [facility] Work Phone: [phone] Erythrocyte distribution width (RBC) [Ratio] 13.2 % 11.6-14.6 [facility] Work Phone: [phone] Immature granulocytes/100 WBC (Bld) 0.200 % 0.0-0.9 [facility] Work Phone: [phone] Comment on above: IG% - Immature Granu locytes (promyelocytes, myelocytes and metamyelocytes) > 1% indicates that a LEFT SHIFT is Present. MCH (RBC) [Entitic mass] 29.9 pg 27.0-32.0 [facility] Work Phone: [phone] Neutrophils/100 WBC (Bld) 65.2 % 47-70 [facility] Work Phone: Nucleated RBC/100 WBC (Bld) [Ratio] 0 % 0-5 [facility] Work Phone: MCHC Auto (RBC) [Mass/Vol]on 04-25-2021 MCHC (RBC) [Mass/Vol] 32.2 g/dL 32-36 [facility] Work Phone: Mucus LM Ql (Urine sed)on Mucus Ql (Urine sed) 0 SEEN /hpf [facility] Work Phone: [phone] Nitrite Test strip Ql (U)on 04-25-2021 Nitrite Ql (U) Positive Negative [facility] Work Phone: No Panel Informationon 04-25 Estimated Creatinine Clearance Calc 92.25 ml/min [facility] Work Phone: Estimated GFR (MDRD) Amer 118 mL/min >60 [facility] Work Phone: Comment on above: GFR Calc Estimated GFR (MDRD) Non-Af Amer 98 mL/min >60 [facility] Work Phone: Comment on above: Non- GFR Calc Platelets bldon 04-25-2021 Platelets (Bld) [#/Vol] 259 10*3/uL 150-450 [facility] Work Phone: Protein Test strip Ql (U)on 04-25-2021 Protein Ql (U) 30 mg/dl Negative [facility] Work Phone: [phone] Serum or plasma calcium liliana urement (mass/volume)on 04-25-2021 Calcium [Mass/Vol] 9.0 mg/dL 8.5-10.1 [facility] Work Phone: [phone] Serum or plasma creatinine m easurement (mass/volume)on 04-25-2021 Creatinine [Mass/Vol] 0.70 mg/dL 0.55-1.02 [facility] Work Phone: Comment on above: The validity of the calculated GFR & GFRAA in patients over 70 years has not been determined. Clinical correlation is essential. Serum or plasma urea nitroge n measurement (mass/volume)on 04-25-2021 Urea nitrogen [Mass/Vol] 9 mg/dL 7-18 [facility] Work Phone: Squamous epithelial cells de tection in urine sediment by light microscopyon 04-25-2021 Epithelial cells.squamous LM Ql (Urine sed) 0-5 SEEN /hpf [facility] Work Phone: Thin prep Papanicolaou smear with manual screeningon 04-25-2021 Thin prep Papanicolaou smear with manual screening 4 5-15 [facility] Work Phone: Urine blood detectionon 12-0 RBC Ql (U) 250 /ul Negative [facility] Work Phone: [phone] RBC Ql (U) 25-50 SEEN /hpf [facility] Work Phone: Urine clarityon 04-25-2021 Clarity (U) Sl. Cloudy Clear [facility] Work Phone: Urine color determinationon 04-25-2021 Color (U) Tiffany Yellow [facility] Work Phone: Urine glucose detectionon Glucose Ql (U) Normal mg/dl Normal [facility] Work Phone: Urine leukocyte esterase det ection by dipstickon 04-25-2021 Leukocyte esterase Test strip Ql (U) 25 /ul Negative [facility] Work Phone: Urine pHon 04-25-2021 pH (U) 6.0 [pH] [facility] Work Phone: [phone] Urine sediment bacteria coun t by microscopy (number/high power field)on 04-25-2021 Bacteria LM.HPF (Urine sed) [#/Area] 1 /[HPF] None Seen [facility] Work Phone: Urine specific gravity measu rementon 04-25-2021 Specific gravity (U) [Rel density] 1.020 [facility] Work Phone: Urobilinogen Auto test strip Ql (U)on 04-25-2021 Urobilinogen Ql (U) 8 mg/dl Normal [facility] Work Phone: .Auto Diffon 11-12-2018 Ammonia (P) [Mass/Vol] 0.30 10 3/mcL Normal 0.15-1.00 Count Includes [facility] ([place]) Comment on above: Performed By: #### LINA Hassan PREGU #### [address] [address] Basophils (Bld) [#/Vol] 0.00 10 3/mcL Normal 0.00-0.19 Count Includes [facility] ([place]) Comment on above: Performed By: #### LINA Hassan PREGU #### [address] [address] Basophils/100 WBC (Bld) 0.6 % Normal 0.0-2.5 [facility] ([place]) Comment on above: Performed By: #### LINA Hassan PREGU #### [address] [address] Eosinophils (Bld) [#/Vol] 0.10 10 3/mcL Normal 0.00-0.40 Count Includes [facility] ([place]) Comment on above: Performed By: #### LINA Hassan PREGU #### [address] [address] Eosinophils/100 WBC (Bld) 2.3 % Normal 0.0-7.0 Count Includes [facility] ([place]) Comment on above: Performed By: #### LINA Hassan PREGU #### [address] [address] Lymphocytes (Bld) [#/Vol] 1.20 10 3/mcL Normal 0.77-3.85 Count Includes [facility] ([place]) Comment on above: Performed By: #### LINA Hassan PREGU #### [address] [address] Lymphocytes/100 WBC (Bld) 33.4 % Normal 10.0-50.0 Count Includes [facility] ([place]) Comment on above: Performed By: #### U A, UAMICAO, PREGU #### [address] [address] Monocytes/100 WBC (Bld) 7.5 % Normal 1.7-13.0 [facility] ([place]) Comment on above: Performed By: #### U A, UAMICAO, PREGU #### [address] [address] Neutrophils/100 WBC (Bld) 56.2 % Normal 37.0-80.0 Count Includes [facility] ([place]) Comment on above: Performed By: #### U A, UAMICAO, PREGU #### [address] [address] .GFRon 11-12-2018 GFR 148 ml/min/1.73sqm Normal Count Includes [facility] ([place]) Comment on above: Result Comment: GFR Population mean for , Non- Americans Ages 20-29 = 116 mL/min/1.73 sq.m. Ages 30-39 = 107 mL/min/1.73 sq.m. Ages 40-49 = 99 mL/min/1.73 sq.m. Ages 50-59 = 93 mL/min/1.73 sq.m. Ages 60-69 = 85 mL/min/1.73 sq.m. Ages 70+ = 75 mL/min/1.73 sq.m. Chronic Kidney Disease: Less than 60 mL/min/1.73 square meters End Stage Renal Disease: Less than 15 mL/min/1.73 square meters Performed By: #### U A, UAMICAO, PREGU #### [address] [address] GFR Non- 122 ml/min/1.73sqm Normal Count Includes [facility] ([place]) Comment on above: Result Comment: GFR Population mean for , Non- Americans Ages 20-29 = 116 mL/min/1.73 sq.m. Ages 30-39 = 107 mL/min/1.73 sq.m. Ages 40-49 = 99 mL/min/1.73 sq.m. Ages 50-59 = 93 mL/min/1.73 sq.m. Ages 60-69 = 85 mL/min/1.73 sq.m. Ages 70+ = 75 mL/min/1.73 sq.m. Chronic Kidney Disease: Less than 60 mL/min/1.73 square meters End Stage Renal Disease: Less than 15 mL/min/1.73 square meters Performed By: #### LINA Hassan PREGU #### [address] [address] .NEUABSon 11-12-2018 Neutrophils (Bld) [#/Vol] 2.00 10 3/mcL Low 2.85-6.16 Count Includes [facility] ([place] Comment on above: Performed By: #### LINA Hassan PREGU #### [place] [id number] CBCon 11-12-2018 Erythrocyte distribution width (RBC) [Ratio] 18.4 % High 11.5-14.5 Count Includes [facility] ([place] Comment on above: Performed By: #### LINA Hassan PREGU #### [address] [address] Hematocrit (Bld) [Volume fraction] 31.8 % Low 37.0-47.0 Count Includes [facility] ([place] Comment on above: Performed By: #### LINA Hassan PREGU #### [address] [address] Hemoglobin (Bld) [Mass/Vol] 10.3 G/dL Low 12.0-16.0 Count Includes [facility] ([place] Comment on above: Performed By: #### U LINA Billingsley PREGU #### [address] [address] MCH (RBC) [Entitic mass] 27.9 pg Normal 27.0-31.2 Count Includes [facility] ([place] Comment on above: Performed By: #### U LINA Billingsley PREGU #### [address] [address] MCHC (RBC) [Mass/Vol] 32.4 G/dL Low 33.0-37.0 [facility] ([place]) Comment on above: Performed By: #### LINA Hassan, PREGU #### [address] [address] MCV (RBC) [Entitic vol] 86.1 fL Normal 80.0-94.0 [facility] ([place]) Comment on above: Performed By: #### LINA Hassan, PREGU #### [address] [address] Platelet mean volume (Bld) [Entitic vol] 7.8 fL Normal 7.4-10.4 Count Includes [facility] ([place] Comment on above: Performed By: #### LINA Hassan, PREGU #### [address] [address] Platelets (Bld) [#/Vol] 201 10 3/mcL Normal 130-400 Count Includes [facility] ([place] Comment on above: Performed By: #### LINA Hassan, PREGU #### [address] [address] RBC (Bld) [#/Vol] 3.69 10 6/mcL Low 4.20-5.40 [facility] [place] Comment on above: Performed By: #### LINA Hassan, PREGU #### [address] [address] WBC (Bld) [#/Vol] 3.60 10 3/mcL Low 4.60-10.80 [facility] [place] Comment on above: Performed By: #### U SHAYY BillingsleyMICCHRISTINA, PREGU #### [address] [address] CMPon 11-12-2018 Albumin [Mass/Vol] 2.6 G/dL Low 3.5-5.0 [facility] ([place]) Comment on above: Performed By: #### U A UAMICCHRISTINA, PREGU #### [address] [address] Albumin/Globulin [Mass ratio] 0.9 {ratio} Low 1.1-2.5 Count Includes [facility] ([place] Comment on above: Performed By: #### LINA Hassan PREGU #### [address] [address] ALP [Catalytic activity/Vol] 71 U/L Normal 40-135 Count Includes [facility] ([place] Comment on above: Performed By: #### LINA Hassan PREGU #### [address] [address] ALT [Catalytic activity/Vol] 50 U/L High 10-35 Count Includes [facility] ([place] Comment on above: Performed By: #### LINA Hassan PREGU #### [address] [address] AST [Catalytic activity/Vol] 46 U/L High 10-40 Count Includes [facility] ([place] Comment on above: Performed By: #### LINA Hassan PREGU #### [address] [address] Bili Total 0.2 mg/dL Normal 0.2-1.0 Count Includes [facility] ([place] Comment on above: Performed By: #### LINA Hassan PREGU #### [address] [address] Calcium [Mass/Vol] 7.6 mg/dL Low 8.4-10.2 [facility] ([place] Comment on above: Performed By: #### LINA Hassan PREGU #### [address] [address] Chloride [Moles/Vol] 109 mmol/L High 98-107 [facility] [place] Comment on above: Performed By: #### LINA Hassan PREGU #### [address] [address] CO2 [Moles/Vol] 23 mmol/L Normal 22-29 Count Includes [facility] ([place] Comment on above: Performed By: #### LINA Hassan PREGU #### [address] [address] Creatinine [Mass/Vol] 0.56 mg/dL Normal 0.55-1.02 [facility] ([place] Comment on above: Performed By: #### U A, UAMICAO, PREGU #### [address] [address] Electrolyte Balance 9.0 mEq/L Normal [facility] ([place]) Comment on above: Performed By: #### U A, UAMICAO, PREGU #### [address] [address] Globulin (S) [Mass/Vol] 2.9 G/dL Normal [facility] ([place]) Comment on above: Performed By: #### U A, UAMICAO, PREGU #### [address] [address] Glucose [Mass/Vol] 83 mg/dL Normal 70-105 [facility] ([place] Comment on above: Performed By: #### U A, UAMICAO, PREGU #### [address] [address] Potassium [Moles/Vol] 3.7 mmol/L Normal 3.5-5.1 [facility] ([place]) Comment on above: Performed By: #### U A, UAMICAO, PREGU #### [address] [address] Protein [Mass/Vol] 5.5 G/dL Low 6.4-8.2 [facility] ([place] Comment on above: Performed By: #### U A, UAMICAO, PREGU #### [address] [address] Sodium [Moles/Vol] 141 mmol/L Normal 136-145 [facility] ([place] Comment on above: Performed By: #### U A, UAMICAO, PREGU #### [address] [address] Urea nitrogen [Mass/Vol] 8 mg/dL Normal 7-18 Count Includes [facility] ([place] Comment on above: Performed By: #### U A, UAMICAO, PREGU #### [facility] [address], [place] [address] Urea nitrogen/Creatinine [Mass ratio] 14 ratio Normal 7-27 Count Includes [facility] ([place] Comment on above: Performed By: #### U A, UAMICAO, PREGU #### [facility] [address], [place] [address] CT ABD/PELVIS W/ IV CONTRAST ONLYon 11-12-2018 CT ABD/PELVIS W/ IV CONTRAST ONLY ORIGINAL CT ABD/PELVIS W/ IV CONTRAST ONLY This exam was performed according to our departmental dose optimization program, and includes the following measures where applicable: automated exposure control, adjustment of the mAs and/or kVp according to patient size and/or exam, and an iterative reconstruction algorithm. CLINICAL STATEMENT: LEFT lower quadrant pain COMPARISON: 08/21/2013 CT abdomen and pelvis, abdominal radiograph 11/11/2018 FINDINGS: The visualized lung bases are clear. No free air is demonstrated. Small amount of subcutaneous gas in the LEFT lower abdomen presumably is related to subcutaneous injection. Diminished liver attenuation may indicate fatty change. It may be accentuated by the phase of contrast enhancement. The spleen, pancreas, and adrenal glands are unremarkable. There is symmetric enhancement of the kidneys. There is focal cortical thinning of the RIGHT kidney, presumably scarring. There are clips in the gallbladder fossa. The stomach is not distended, limiting its evaluation. The abdominal aorta is normal in caliber and demonstrates minimal atherosclerotic calcification. Reportedly, there has been both large and small bowel resections. Multiple suture lines are demonstrated. Very little small bowel is identified. There are fluid levels within the more proximal large bowel. Formed stool is noted distally. Large bowel in the LEFT mid abdomen measures up to 8 cm in diameter. There may be a caliber change on image 54 of series 2 in the LEFT lateral abdomen. There are no focal fluid collections. The uterus and bladder are unremarkable. There are no suspicious bone lesions. IMPRESSION: 1. History of prior bowel resection/resections . There is moderately prominent large bowel segment in the LEFT mid abdomen. A potential stricture related to surgical adhesion is not excluded as there appears to be bowel caliber change. Interpretation is challenging due to lack of enteric contrast, close proximity of bowel loops and paucity of intra-abdominal fat. Interpreted By: Ale Michael MD Preliminary Report By: Ale Michael MD Electronically Signed By: Ale Michael MD Dictated Date: 11/12/2018 12:31:00 PM Prelim Date: 11/12/2018 12:31:00 PM Sign Date: 11/12/2018 12:45:19 PM Normal Count Includes [facility] [place] MGon 11-12-2018 Magnesium [Mass/Vol] 1.8 mg/dL Normal 1.8-2.4 [facility] [place] Comment on above: Performed By: #### U A UAMICCHRISTINA, PREGU #### [address] [address] Magnesium [Mass/Vol] 2.1 mg/dL Normal 1.8-2.4 [facility] [place] Comment on above: Performed By: #### U ASHAYYMICCHRISTINA, PREGU #### [address] [address] .Auto Diffon 11-11-2018 Ammonia (P) [Mass/Vol] 0.30 10 3/mcL Normal 0.15-1.00 Count Includes [facility] [place] Comment on above: Performed By: #### U ASHAYYMICCHRISTINA PREGU #### [address] [address] Basophils (Bld) [#/Vol] 0.00 10 3/mcL Normal 0.00-0.19 Count Includes [facility] ([place] Comment on above: Performed By: #### U A UAMICCHRISTINA, PREGU #### [address] [address] Basophils/100 WBC (Bld) 0.7 % Normal 0.0-2.5 A [facility] ([place]) Comment on above: Performed By: #### U A UAMICCHRISTINA, PREGU #### [address] [address] Eosinophils (Bld) [#/Vol] 0.10 10 3/mcL Normal 0.00-0.40 Count Includes [facility] ([place]) Comment on above: Performed By: #### U ALINA, PREGU #### [address] [address] Eosinophils/100 WBC (Bld) 1.7 % Normal 0.0-7.0 Count Includes [facility] ([place] Comment on above: Performed By: #### U ASHAYYMICCHRISTINA, PREGU #### [address] [address] Lymphocytes (Bld) [#/Vol] 1.50 10 3/mcL Normal 0.77-3.85 Count Includes [facility] ([place]) Comment on above: Performed By: #### U A UAMICCHRISTINA, PREGU #### [address] [address] Lymphocytes/100 WBC (Bld) 26.4 % Normal 10.0-50.0 Count Includes [facility] [place] Comment on above: Performed By: #### U ASHAYYMICCHRISTINA PREGU #### [address] [address] Monocytes/100 WBC (Bld) 5.8 % Normal 1.7-13.0 [facility] ([place]) Comment on above: Performed By: #### U LINA Billingsley PREGU #### [address] [address] Neutrophils/100 WBC (Bld) 65.4 % Normal 37.0-80.0 Count Includes [facility] ([place] Comment on above: Performed By: #### U ALINA PREGU #### [address] [address] .GFRon 11-11-2018 GFR 107 ml/min/1.73sqm Normal Count Includes [facility] ([place] Comment on above: Result Comment: GFR Population mean for , Non- Americans Ages 20-29 = 116 mL/min/1.73 sq.m. Ages 30-39 = 107 mL/min/1.73 sq.m. Ages 40-49 = 99 mL/min/1.73 sq.m. Ages 50-59 = 93 mL/min/1.73 sq.m. Ages 60-69 = 85 mL/min/1.73 sq.m. Ages 70+ = 75 mL/min/1.73 sq.m. Chronic Kidney Disease: Less than 60 mL/min/1.73 square meters End Stage Renal Disease: Less than 15 mL/min/1.73 square meters Performed By: #### U A, UAMICAO, PREGU #### [place] [address] GFR Non- 88 ml/min/1.73sqm Normal Count Includes [facility] ([place] Comment on above: Result Comment: GFR Population mean for , Non- Americans Ages 20-29 = 116 mL/min/1.73 sq.m. Ages 30-39 = 107 mL/min/1.73 sq.m. Ages 40-49 = 99 mL/min/1.73 sq.m. Ages 50-59 = 93 mL/min/1.73 sq.m. Ages 60-69 = 85 mL/min/1.73 sq.m. Ages 70+ = 75 mL/min/1.73 sq.m. Chronic Kidney Disease: Less than 60 mL/min/1.73 square meters End Stage Renal Disease: Less than 15 mL/min/1.73 square meters Performed By: #### U A, UAMICAO, PREGU #### [place] [address] .NEUABSon 11-11-2018 Neutrophils (Bld) [#/Vol] 3.80 10 3/mcL Normal 2.85-6.16 Count Includes [facility] ([place] Comment on above: Performed By: #### U A, UAMICAO, PREGU #### [place] [address] .Urinalysis Microscopic (AO) on 11-11-2018 RBC (U) [#/Vol] None Seen Normal None Seen Count Includes [facility] ([place] Comment on above: Performed By: #### U A, UAMICAO, PREGU #### [place] [address] UA Bacteria Trace Count Includes [facility] ([place] Comment on above: Performed By: #### U A, UAMICAO, PREGU #### [address] [address] UA CA Ox Crystal 2+ /hpf Normal Count Includes [facility] ([place] Comment on above: Performed By: #### U Jose Cruz UAMICAO, PREGU #### [address] [address] UA Mucous 3+ /hpf Normal Count Includes [facility] ([place] Comment on above: Performed By: #### U A UAMICAO, PREGU #### [address] [address] UA Squam Epithelial 0-5 None Seen [facility] ([place]) Comment on above: Performed By: #### U A UAMICAO, PREGU #### [address] [address] UA WBC 0-5 None Seen Count Includes [facility] ([place] Comment on above: Performed By: #### Mauri Billingsley UAMICCHRISTINA, PREGU #### [address] [address] CBCon 11-11-2018 Erythrocyte distribution width (RBC) [Ratio] 18.0 % High 11.5-14.5 Count Includes [facility] ([place] Comment on above: Performed By: #### SHAYY HassanMICCHRISTINA, PREGU #### [address] [address] Hematocrit (Bld) [Volume fraction] 38.4 % Normal 37.0-47.0 Count Includes [facility] ([place] Comment on above: Performed By: #### U A UAMICAO, PREGU #### [address] [address] Hemoglobin (Bld) [Mass/Vol] 12.4 G/dL Normal 12.0-16.0 Count Includes [facility] ([place] Comment on above: Performed By: #### U A UAMICAO, PREGU #### [address] [address] MCH (RBC) [Entitic mass] 27.5 pg Normal 27.0-31.2 Count Includes [facility] ([place] Comment on above: Performed By: #### U SHAYY BillingsleyMICCHRISTINA, PREGU #### [address] [address] MCHC (RBC) [Mass/Vol] 32.3 G/dL Low 33.0-37.0 [facility] ([place]) Comment on above: Performed By: #### U ASHAYYMICCHRISTINA, PREGU #### [address] [address] MCV (RBC) [Entitic vol] 85.3 fL Normal 80.0-94.0 [facility] ([place]) Comment on above: Performed By: #### LINA Hassan, PREGU #### [address] [address] Platelet mean volume (Bld) [Entitic vol] 7.2 fL Low 7.4-10.4 Count Includes [facility] ([place] Comment on above: Performed By: #### LINA Hassan, PREGU #### [address] [address] Platelets (Bld) [#/Vol] 299 10 3/mcL Normal 130-400 Count Includes [facility] ([place] Comment on above: Performed By: #### LINA Hassan, PREGU #### [address] [address] RBC (Bld) [#/Vol] 4.50 10 6/mcL Normal 4.20-5.40 [facility] [place] Comment on above: Performed By: #### U A UAMICCHRISTINA, PREGU #### [address] [address] WBC (Bld) [#/Vol] 5.80 10 3/mcL Normal 4.60-10.80 [facility] [place] Comment on above: Performed By: #### U A UAMICCHRISTINA, PREGU #### [address] [address] CMPon 11-11-2018 Albumin [Mass/Vol] 3.6 G/dL Normal 3.5-5.0 [facility] ([place]) Comment on above: Performed By: #### LINA Hassan, PREGU #### [address] [address] Albumin/Globulin [Mass ratio] 0.9 {ratio} Low 1.1-2.5 Count Includes [facility] ([place] Comment on above: Performed By: #### U Jose Cruz UAMICCHRISTINA, PREGU #### [address] [address] ALP [Catalytic activity/Vol] 93 U/L Normal 40-135 Count Includes [facility] ([place] Comment on above: Performed By: #### SHAYY HassanMICCHRISTINA, PREGU #### [address] [address] ALT [Catalytic activity/Vol] 59 U/L High 10-35 Count Includes [facility] ([place] Comment on above: Performed By: #### U SHAYY BillingsleyMICCHRISTINA, PREGU #### [address] [address] AST [Catalytic activity/Vol] 47 U/L High 10-40 Count Includes [facility] ([place] Comment on above: Performed By: #### LINA Hassan, PREGU #### [address] [address] Bili Total 0.4 mg/dL Normal 0.2-1.0 Count Includes [facility] ([place] Comment on above: Performed By: #### U Jose Cruz UAMICCHRISTINA, PREGU #### [address] [address] Calcium [Mass/Vol] 9.2 mg/dL Normal 8.4-10.2 [facility] ([place]) Comment on above: Performed By: #### U Jose Cruz UAMICCHRISTINA, PREGU #### [address] [address] Chloride [Moles/Vol] 105 mmol/L Normal 98-107 [facility] [place] Comment on above: Performed By: #### U A UAMICCHRISTINA, PREGU #### [address] [address] CO2 [Moles/Vol] 23 mmol/L Normal 22-29 Count Includes [facility] ([place] Comment on above: Performed By: #### U A UAMICAO, PREGU #### [address] [address] Creatinine [Mass/Vol] 0.74 mg/dL Normal 0.55-1.02 [facility] ([place]) Comment on above: Performed By: #### U A, UAMICAO, PREGU #### [address] [address] Electrolyte Balance 11.0 mEq/L Normal [facility] ([place]) Comment on above: Performed By: #### U A UAMICAO, PREGU #### [address] [address] Globulin (S) [Mass/Vol] 3.9 G/dL Normal A [facility] ([place]) Comment on above: Performed By: #### U A, UAMICAO, PREGU #### [address] [address] Glucose [Mass/Vol] 88 mg/dL Normal 70-105 [facility] ([place] Comment on above: Performed By: #### U A, UAMICAO, PREGU #### [address] [address] Potassium [Moles/Vol] 3.8 mmol/L Normal 3.5-5.1 [facility] ([place]) Comment on above: Performed By: #### U A, UAMICAO, PREGU #### [address] [address] Protein [Mass/Vol] 7.5 G/dL Normal 6.4-8.2 [facility] ([place] Comment on above: Performed By: #### U A, UAMICAO, PREGU #### [address] [address] Sodium [Moles/Vol] 139 mmol/L Normal 136-145 [facility] ([place] Comment on above: Performed By: #### U A, UAMICAO, PREGU #### [address] [address] Urea nitrogen [Mass/Vol] 11 mg/dL Normal 7-18 Count Includes [facility] ([place] Comment on above: Performed By: #### U A, UAMICAO, PREGU #### [address] [address] Urea nitrogen/Creatinine [Mass ratio] 15 ratio Normal 7- Count Includes [facility] ([place] Comment on above: Performed By: #### U A, UAMICAO, PREGU #### [address] [address] MGon 11-11-2018 Magnesium [Mass/Vol] 1.3 mg/dL Low 1.8-2.4 [facility] [place] Comment on above: Performed By: #### U A, UAMICAO, PREGU #### [address] [address] PREGUon 11-11-2018 HCG ( test) Ql (U) Negative Normal Count Includes [facility] ([place] Comment on above: Performed By: #### U A, UAMICAO, PREGU #### [address] [address] test (u) int HCG not detected. Count Includes [facility] ([place] Comment on above: Performed By: #### U A, UAMICAO, PREGU #### [address] [address] UAon 11-11-2018 Color (U) Yellow Normal Count Includes [facility] ([place] Comment on above: Performed By: #### U A, UAMICAO, PREGU #### [address] [address] Glucose (U) [Mass/Vol] Negative Normal Negative [facility] ([place]) Comment on above: Performed By: #### U A, UAMICAO, PREGU #### [address] [address] Ketones Ql (U) 15 mg/dL Negative Count Includes [facility] ([place] Comment on above: Performed By: #### U A, UAMICAO, PREGU #### [place] [address] UA Appear Slightly Cloudy Clear Count Includes [facility] ([place] Comment on above: Performed By: #### U A, UAMICAO, PREGU #### [address] [address] UA Blood Negative Normal Negative Count Includes [facility] ([place] Comment on above: Performed By: #### U A, UAMICAO, PREGU #### [place] [address] UA Leuk Est Negative Normal Negative Count Includes [facility] ([place] Comment on above: Performed By: #### U A, UAMICAO, PREGU #### [place] [address] UA Nitrite Negative Normal Negative Count Includes [facility] ([place] Comment on above: Performed By: #### U A, UAMICAO, PREGU #### [place] [id number] UA pH 6.0 Normal 5.0 - 8.0 Count Includes [facility] ([place] Comment on above: Performed By: #### U A, UAMICAO, PREGU #### [place] [id number] UA Protein 30 mg/dL Normal Negative Count Includes [facility] ([place] Comment on above: Performed By: #### U A, UAMICAO, PREGU #### [address] [address] UA Spec Grav >=1.030 1.015-1.025 Count Includes [facility] ([place] Comment on above: Performed By: #### U A, UAMICAO, PREGU #### [address] [address] UA Specimen Type Clean Catch Normal Count Includes [facility] ([place] Comment on above: Performed By: #### U A, UAMICAO, PREGU #### [address] [address] UA Urobilinogen 0.2 E.U./dL Normal 0.2-1.0 Count Includes [facility] ([place] Comment on above: Performed By: #### U ASHAYYMICCHRISTINA, PREGU #### [address] [address] Urobilinogen Qn (U) Negative Normal Negative [facility] ([place]) Comment on above: Performed By: #### U ASHAYYMICCHRISTINA, PREGU #### [address] [address] XR ABDOMEN 2 VIEWS W/ DECUB/ ERECTon 11-11-2018 XR ABDOMEN 2 VIEWS W/ DECUB/ERECT ORIGINAL XR ABDOMEN 2 VIEWS W/ DECUB/ERECT CLINICAL STATEMENT: abdominal pain COMPARISON: CT abdomen and pelvis 08/21/2013 FINDINGS:Marked gaseous distention of the colon is present with a large amount of stool in the rectosigmoid colon noted. There are postsurgical suture lines present in the RIGHT midabdomen and postcholecystectomy changes present. Massive gaseous distention of the colon compromises evaluation of the remaining bowel gas pattern. Moderate distention with fecal material and air of a redundant rectosigmoid colon is noted. Transition zone is not confidently identified. Osseous structures are grossly intact. IMPRESSION:Severe gaseous distention of the colon with suboptimal evaluation for transition zone. Overlapping gas distended loops of bowel hinder further evaluation Interpreted By: Jacy Jacobsen MD Preliminary Report By: Jacy Jacobsen MD Electronically Signed By: Jacy Jacobsen MD Dictated Date: 11/11/2018 3:54:47 PM Prelim Date: 11/11/2018 3:54:47 PM Sign Date: 11/11/2018 3:56:17 PM Normal Count Includes [facility] ([place]) .Auto Diffon 08-13-2018 Ammonia (P) [Mass/Vol] 0.30 10 3/mcL Normal 0.15-1.00 Count Includes [facility] ([place]) Comment on above: Performed By: #### C BC, ADIFF, ANEU #### [address] [address] Basophils (Bld) [#/Vol] 0.00 10 3/mcL Normal 0.00-0.19 Count Includes [facility] ([place]) Comment on above: Performed By: #### GLORY GALICIA, ANEU #### [address] [address] Basophils/100 WBC (Bld) 0.7 % Normal 0.0-2.5 A [facility] ([place]) Comment on above: Performed By: #### GLORY GALICIA, ANEU #### [address] [address] Eosinophils (Bld) [#/Vol] 0.10 10 3/mcL Normal 0.00-0.40 Count Includes [facility] ([place] Comment on above: Performed By: #### GLORY GALICIA, ANEU #### [address] [address] Eosinophils/100 WBC (Bld) 1.2 % Normal 0.0-7.0 Count Includes [facility] ([place] Comment on above: Performed By: #### GLORY GALICIA, ANEU #### [address] [address] Lymphocytes (Bld) [#/Vol] 1.90 10 3/mcL Normal 0.77-3.85 Count Includes [facility] ([place] Comment on above: Performed By: #### GLORY GALICIA, ANEU #### [address] [address] Lymphocytes/100 WBC (Bld) 37.0 % Normal 10.0-50.0 Count Includes [facility] ([place] Comment on above: Performed By: #### GLORY GALICIA, ANEU #### [address] [address] Monocytes/100 WBC (Bld) 6.0 % Normal 1.7-13.0 [facility] ([place]) Comment on above: Performed By: #### GLORY GALICIA, ANEU #### [address] [address] Neutrophils/100 WBC (Bld) 55.1 % Normal 37.0-80.0 Count Includes [facility] ([place] Comment on above: Performed By: #### GLORY GALICIA ANEU #### [place] [address] .NEUABSon 08-13-2018 Neutrophils (Bld) [#/Vol] 2.90 10 3/mcL Normal 2.85-6.16 Count Includes [facility] ([place] Comment on above: Performed By: #### GLORY GALICIA ANEU #### [place] [address] .Urinalysis Microscopic (AO) on 08-13-2018 RBC (U) [#/Vol] 15-25 None Seen Count Includes [facility] ([place] Comment on above: Performed By: #### U A, UAMICAO #### [place] [address] #### PREGU #### [place] [address] UA Squam Epithelial 0-5 None Seen [facility] ([place]) Comment on above: Performed By: #### U A, UAMICAO #### [place] [address] #### PREGU #### [place] [address] UA WBC None Seen Normal None Seen Count Includes [facility] ([place] Comment on above: Performed By: #### U A, UAMICAO #### [place] [address] #### PREGU #### [place] [address] CBCon 08-13-2018 Erythrocyte distribution width (RBC) [Ratio] 13.9 % Normal 11.5-14.5 Count Includes [facility] ([place] Comment on above: Performed By: #### GLORY GALICIA ANEU #### [place] [address] Hematocrit (Bld) [Volume fraction] 25.8 % Low 37.0-47.0 Count Includes [facility] ([place] Comment on above: Performed By: #### C GLORY HERNÁNDEZ ANEU #### [address] [address] Hemoglobin (Bld) [Mass/Vol] 8.5 G/dL Low 12.0-16.0 Count Includes [facility] ([place] Comment on above: Performed By: #### GLORY GALICIA, KELLEY #### [address] [address] MCH (RBC) [Entitic mass] 29.0 pg Normal 27.0-31.2 Count Includes [facility] ([place] Comment on above: Performed By: #### C GLORY HERNÁNDEZ, ANEU #### [address] [address] MCHC (RBC) [Mass/Vol] 33.0 G/dL Normal 33.0-37.0 [facility] ([place]) Comment on above: Performed By: #### GLORY GALICIA ANEU #### [address] [address] MCV (RBC) [Entitic vol] 87.9 fL Normal 80.0-94.0 [facility] ([place]) Comment on above: Performed By: #### GLORY GALICIA ANEU #### [address] [address] Platelet mean volume (Bld) [Entitic vol] 7.6 fL Normal 7.4-10.4 Count Includes [facility] ([place] Comment on above: Performed By: #### GLORY GALICIA, ANEU #### [address] [address] Platelets (Bld) [#/Vol] 280 10 3/mcL Normal 130-400 Count Includes [facility] ([place] Comment on above: Performed By: #### GLORY GALICIA, ANEU #### [address] [address] RBC (Bld) [#/Vol] 2.94 10 6/mcL Low 4.20-5.40 [facility] [place] Comment on above: Performed By: #### GLORY GALICIA, ANEU #### [address] [address] WBC (Bld) [#/Vol] 5.30 10 3/mcL Normal 4.60-10.80 [facility] [place] Comment on above: Performed By: #### C BC, ADIFF, ANEU #### [address] [address] PREGUon 08-13-2018 HCG ( test) Ql (U) Negative Normal Count Includes [facility] ([place] Comment on above: Performed By: #### U A, UAMICAO #### [place] [address] #### PREGU #### [place] [address] test (u) int HCG not detected. Count Includes [facility] ([place] Comment on above: Performed By: #### U A, UAMICAO #### [place] [address] #### PREGU #### [place] [address] UAon 08-13-2018 Color (U) Red Count Includes [facility] ([place] Comment on above: Performed By: #### U A, UAMICAO #### [place] [address] #### PREGU #### [place] [address] Glucose (U) [Mass/Vol] Negative Normal Negative [facility] ([place]) Comment on above: Performed By: #### U A, UAMICAO #### [place] [address] #### PREGU #### [place] [address] Ketones Ql (U) Negative Normal Negative Count Includes [facility] ([place] Comment on above: Performed By: #### U A, UAMICAO #### [place] [address] #### PREGU #### [place] [address] UA Appear Slightly Cloudy Clear Count Includes [facility] ([place] Comment on above: Performed By: #### U A, UAMICAO #### [place] [address] #### PREGU #### [address] [address] UA Blood Large Negative Count Includes [facility] ([place] Comment on above: Performed By: #### U A, UAMICAO #### [place] [address] #### PREGU #### [address] [address] UA Leuk Est Negative Normal Negative Count Includes [facility] ([place] Comment on above: Performed By: #### U A, UAMICAO #### [place] [address] #### PREGU #### [place] [address] UA Nitrite Negative Normal Negative Count Includes [facility] ([place] Comment on above: Performed By: #### U A, UAMICAO #### [place] [address] #### PREGU #### [address] [address] UA pH 6.0 Normal 5.0 - 8.0 Count Includes [facility] ([place] Comment on above: Performed By: #### U A, UAMICAO #### [place] [address] #### PREGU #### [address] [address] UA Protein 100 mg/dL Negative Count Includes [facility] ([place] Comment on above: Performed By: #### U A, UAMICAO #### [place] [address] #### PREGU #### [address] [address] UA Spec Grav 1.025 Normal 1.015-1.025 Count Includes [facility] ([place] Comment on above: Performed By: #### U A, UAMICAO #### [place] [address] #### PREGU #### [place] [address] UA Specimen Type Clean Catch Normal Count Includes [facility] ([place] Comment on above: Performed By: #### U A, UAMICAO #### [place] [address] #### PREGU #### [place] [address] UA Urobilinogen 0.2 E.U./dL Normal 0.2-1.0 Count Includes [facility] ([place] Comment on above: Performed By: #### U A, UAMICAO #### [place] [address] #### PREGU #### [place] [address] Urobilinogen Qn (U) Negative Normal Negative [facility] ([place]) Comment on above: Performed By: #### U A, UAMICAO #### [place] [address] #### PREGU #### [place] [address] .Urinalysis Microscopic (AO) on 01-09-2018 RBC (U) [#/Vol] 15-25 None Seen Count Includes [facility] ([place] Comment on above: Performed By: #### U A, UAMICAO, PREGU #### [place] [address] UA Squam Epithelial 0-5 None Seen [facility] ([place]) Comment on above: Performed By: #### U A, UAMICAO, PREGU #### [place] [address] UA WBC None Seen Normal None Seen Count Includes [facility] ([place] Comment on above: Performed By: #### U A, UAMICAO, PREGU #### [place] [address] PREGUon 01-09-2018 HCG ( test) Ql (U) Negative Normal Count Includes [facility] ([place] Comment on above: Performed By: #### U A, UAMICAO, PREGU #### [place] [address] test (u) int HCG not detected. Count Includes [facility] ([place] Comment on above: Performed By: #### U A, UAMICAO, PREGU #### [place] [address] UAon 01-09-2018 Color (U) Yellow Normal Count Includes [facility] ([place] Comment on above: Performed By: #### U A, UAMICAO, PREGU #### [place] [address] Glucose (U) [Mass/Vol] Negative Normal Negative [facility] ([place] Comment on above: Performed By: #### U A, UAMICAO, PREGU #### [place] [address] Ketones Ql (U) Negative Normal Negative Count Includes [facility] ([place] Comment on above: Performed By: #### U A, UAMICAO, PREGU #### [place] [address] UA Appear Clear Normal Clear Count Includes [facility] ([place] Comment on above: Performed By: #### U A, UAMICAO, PREGU #### [place] [address] UA Blood Large Negative Count Includes [facility] [place] Comment on above: Performed By: #### U A, UAMICAO, PREGU #### [place] [address] UA Leuk Est Negative Normal Negative Count Includes [facility] [place] Comment on above: Performed By: #### U A, UAMICAO, PREGU #### [place] [address] UA Nitrite Negative Normal Negative Count Includes [facility] [place] Comment on above: Performed By: #### U A, UAMICAO, PREGU #### [address] [address] UA pH 6.5 Normal Count Includes [facility] ([place] Comment on above: Performed By: #### U A, UAMICAO, PREGU #### [address] [address] UA Protein Negative Normal Negative Count Includes [facility] ([place] Comment on above: Performed By: #### U A, UAMICAO, PREGU #### [address] [address] UA Spec Grav 1.015 Normal Count Includes [facility] ([place] Comment on above: Performed By: #### U A, UAMICAO, PREGU #### [address] [address] UA Specimen Type Clean Catch Normal Count Includes [facility] ([place] Comment on above: Performed By: #### U A, UAMICAO, PREGU #### [address] [address] UA Urobilinogen 0.2 E.U./dL Normal Count Includes [facility] ([place]) Comment on above: Performed By: #### U A, UAMICAO, PREGU #### [address] [address] Urobilinogen Qn (U) Negative Normal Negative [facility] ([place]) Comment on above: Performed By: #### U A, UAMICAO, PREGU #### [address] [address] US PELVIS NON-OB W/TRANSVAGI NALon 01-09-2018 US PELVIS NON-OB W/TRANSVAGINAL ORIGINAL US PELVIS NON-OB TRANSABDOMINAL AND TRANSVAGINAL CLINICAL STATEMENT: Heavy vaginal bleeding with cramping.. COMPARISON: CT abdomen/pelvis, 08/21/2013, pelvic ultrasound, 08/20/2013 FINDINGS: 2-D grayscale and color Doppler sonographic assessment of the uterus and ovaries was performed. The uterus is anteverted and mildly heterogeneous in echogenicity, measuring 11.5 x 5.1 x 5.3 cm. The endometrial thickness is within normal limits at 9 mm. No myometrial mass is shown. There are small nabothian cysts. The LEFT ovary is obscured by bowel gas and not assessed. The RIGHT ovary measures 5.1 x 2.6 x 4.7 cm, containing a 3.2 cm bilobed hypoechoic structure which contains minimal internal echogenic debris without significant septation. No flow is seen within this cyst. Vascular flow is present in the RIGHT ovary with normal spectral waveforms. A small volume of free fluid is seen within the cul-de-sac, likely physiologic. IMPRESSION: No acute uterine findings. Obscuration of the LEFT ovary by bowel gas. Bilobed 3.2 cm cyst of the RIGHT ovary with minimal internal echogenic debris, for which no specific follow-up is warranted. I have personally reviewed the images of this examination and agree with the resident's findings and interpretation. Interpreted By: Sonia Ward MD Preliminary Report By: Isaias Shaw MD Electronically Signed By: Sonia Ward MD Dictated Date: 01/09/2018 5:46:00 PM Prelim Date: 01/09/2018 5:52:44 PM Sign Date: 01/09/2018 6:03:39 PM Normal Count Includes [facility] ([place]) Culture, urine Bacteria identified Cx Nom (U) Escherichia coli [facility] Work Phone: Bacteria identified Cx Nom (U) Positive [facility] Work Phone: Laboratory - Microbiology an d Antimicrobial susceptibility Bacteria identified Cx Nom (Bld) No growth in 5 days. [facility] Work Phone: Vital Signs Date Time Vital Sign Value Performing Clinician Facility 01-15-2025 20:23-0400 Body height 162.[address] Starr Motley MD Work Phone: [facility] 01-15-2025 20:23-0400 Body mass index (BMI) [Ratio] 26.4 kg/m2 Dr. Starr Motley MD Work Phone: [facility] 01-15-2025 20:23-0400 Body temperature 97.8 [degF] Dr. Starr Motley MD Work Phone: [facility] 01-15-2025 20:23-0400 Body weight 69.[address] Starr Motley MD Work Phone: [facility] 01-15-2025 20:23-0400 Diastolic blood pressure 79 mm[Hg] Dr. Starr Motley MD Work Phone: [facility] 01-15-2025 20:23-0400 Heart rate 66 /min Dr. Starr Motley MD Work Phone: [facility] 01-15-2025 20:23-0400 Respiratory rate 15 /min Dr. Starr Motley MD Work Phone: [facility] 01-15-2025 20:23-0400 SaO2% (BldA) [Mass fraction] 97 % Dr. Starr Motley MD Work Phone: [facility] 01-15-2025 20:23-0400 Systolic blood pressure 108 mm[Hg] Dr. Starr Motley MD Work Phone: [facility] 12-30-2024 13:55-0400 Body height 162.6 cm Vikki Elmore MD Work Phone: [facility] 12-30-2024 13:55-0400 Body mass index (BMI) [Ratio] 26.26 kg/m2 Vikki Elmore MD Work Phone: [facility] 12-30-2024 13:55-0400 Body temperature 99.9 [degF] Vikki Elmore MD Work Phone: [facility] 12-30-2024 13:55-0400 Body weight 69.4 kg Vikki Elmore MD Work Phone: [facility] 12-30-2024 13:55-0400 Diastolic blood pressure 81 mm[Hg] Vikki Elmore MD Work Phone: [facility] 12-30-2024 13:55-0400 Heart rate 60 /min Vikki Elmore MD Work Phone: [facility] 12-30-2024 13:55-0400 Systolic blood pressure 123 mm[Hg] Vikki Elmore MD Work Phone: [facility] 11-13-2024 14:02-0400 Body height 162.[address] Starr Motley MD Work Phone: [facility] 11-13-2024 14:02-0400 Body mass index (BMI) [Ratio] 25.2 kg/m2 Dr. Starr Motley MD Work Phone: [facility] 11-13-2024 14:02-0400 Body temperature 97.9 [degF] Dr. Starr Motley MD Work Phone: [facility] 11-13-2024 14:02-0400 Body weight 66.[address] Starr Motley MD Work Phone: [facility] 11-13-2024 14:02-0400 Diastolic blood pressure 80 mm[Hg] Dr. Starr Motley MD Work Phone: [facility] 11-13-2024 14:02-0400 Heart rate 67 /min Dr. Starr Motley MD Work Phone: [facility] 11-13-2024 14:02-0400 Respiratory rate 18 /min Dr. Starr Motley MD Work Phone: [facility] 11-13-2024 14:02-0400 SaO2% (BldA) [Mass fraction] 100 % Dr. Starr Motley MD Work Phone: [facility] 11-13-2024 14:02-0400 Systolic blood pressure 164 mm[Hg] Dr. Starr Motley MD Work Phone: [facility] 11-09-2024 12:36-0400 Body mass index (BMI) [Ratio] 26.41 kg/m2 Mayank Arizmendi APRN.DIRECTOR OF GROUP SALES Work Phone: [facility] 11-09-2024 12:36-0400 Body temperature 99.1 [degF] Mayank Arizmendi APRN.DIRECTOR OF GROUP SALES Work Phone: [facility] 11-09-2024 12:36-0400 Body weight 69.8 kg Mayank Arizemndi APRN.DIRECTOR OF GROUP SALES Work Phone: [facility] 11-09-2024 12:36-0400 Diastolic blood pressure 76 mm[Hg] Mayank Arizmendi APRN.DIRECTOR OF GROUP SALES Work Phone: [facility] 11-09-2024 12:36-0400 Heart rate 90 /min Mayank Arizmendi APRN.DIRECTOR OF GROUP SALES Work Phone: [facility] 11-09-2024 12:36-0400 Respiratory rate 20 /min Mayank Arizmendi APRN.DIRECTOR OF GROUP SALES Work Phone: [facility] 11-09-2024 12:36-0400 SaO2% (BldA) [Mass fraction] 98 % Mayank Arizmendi APRN.DIRECTOR OF GROUP SALES Work Phone: [facility] 11-09-2024 12:36-0400 Systolic blood pressure 120 mm[Hg] Mayank Arizmendi APRN.DIRECTOR OF GROUP SALES Work Phone: [facility] 10-20-2024 19:35-0400 Body mass index (BMI) [Ratio] 26.49 kg/m2 Krislyn Aberegg PA Work Phone: [facility] 10-20-2024 19:35-0400 Body temperature 97.9 [degF] Krislyn Aberegg PA Work Phone: [facility] 10-20-2024 19:35-0400 Body weight 70 kg Krislyn Aberegg PA Work Phone: [facility] 10-20-2024 19:35-0400 Diastolic blood pressure 74 mm[Hg] Krislyn Aberegg PA Work Phone: [facility] 10-20-2024 19:35-0400 Heart rate 68 /min Krislyn Aberegg PA Work Phone: [facility] 10-20-2024 19:35-0400 Respiratory rate 18 /min Krislyn Aberegg PA Work Phone: [facility] 10-20-2024 19:35-0400 SaO2% (BldA) [Mass fraction] 98 % Isaias Roe PA Work Phone: [facility] 10-20-2024 19:35-0400 Systolic blood pressure 108 mm[Hg] Iasias Finngg PA Work Phone: [facility] 08-14-2024 11:55-0400 Body mass index (BMI) [Ratio] 26.49 kg/m2 Kota Acuña BUSINESS EDUCATION INSTRUCTOR.DIRECTOR OF GROUP SALES Work Phone: [facility] 08-14-2024 11:55-0400 Body temperature 97.81 [degF] Kota Acuña BUSINESS EDUCATION INSTRUCTOR.DIRECTOR OF GROUP SALES Work Phone: [facility] 08-14-2024 11:55-0400 Body weight 70 kg Kota Acuña BUSINESS EDUCATION INSTRUCTOR.DIRECTOR OF GROUP SALES Work Phone: [facility] 08-14-2024 11:55-0400 Diastolic blood pressure 91 mm[Hg] Kota Acuña BUSINESS EDUCATION INSTRUCTOR.DIRECTOR OF GROUP SALES Work Phone: [facility] 08-14-2024 11:55-0400 Heart rate 68 /min Kota Acuña BUSINESS EDUCATION INSTRUCTOR.DIRECTOR OF GROUP SALES Work Phone: [facility] 08-14-2024 11:55-0400 Respiratory rate 18 /min Kota Acuña BUSINESS EDUCATION INSTRUCTOR.DIRECTOR OF GROUP SALES Work Phone: [facility] 08-14-2024 11:55-0400 SaO2% (BldA) [Mass fraction] 100 % Kota Acuña BUSINESS EDUCATION INSTRUCTOR.DIRECTOR OF GROUP SALES Work Phone: [facility] 08-14-2024 11:55-0400 Systolic blood pressure 156 mm[Hg] Kota Acuña BUSINESS EDUCATION INSTRUCTOR.DIRECTOR OF GROUP SALES Work Phone: [facility] 07-26-2024 10:09-0400 Body mass index (BMI) [Ratio] 26.72 kg/m2 Yobani Ballesteros BUSINESS EDUCATION INSTRUCTOR.DIRECTOR OF GROUP SALES Work Phone: [facility] 07-26-2024 10:09-0400 Body temperature 97.9 [degF] Yobani Ballesteros BUSINESS EDUCATION INSTRUCTOR.DIRECTOR OF GROUP SALES Work Phone: [facility] 07-26-2024 10:09-0400 Body weight 70.6 kg Yobani Ballesteros BUSINESS EDUCATION INSTRUCTOR.DIRECTOR OF GROUP SALES Work Phone: [facility] 07-26-2024 10:09-0400 Diastolic blood pressure 82 mm[Hg] Yobani Ballesteros BUSINESS EDUCATION INSTRUCTOR.DIRECTOR OF GROUP SALES Work Phone: [facility] 07-26-2024 10:09-0400 Heart rate 64 /min Yobani Ballesteros BUSINESS EDUCATION INSTRUCTOR.DIRECTOR OF GROUP SALES Work Phone: [facility] 07-26-2024 10:09-0400 Respiratory rate 16 /min Yobain Ballesteros BUSINESS EDUCATION INSTRUCTOR.DIRECTOR OF GROUP SALES Work Phone: [facility] 07-26-2024 10:09-0400 SaO2% (BldA) [Mass fraction] 100 % Yobani Ballesteros BUSINESS EDUCATION INSTRUCTOR.DIRECTOR OF GROUP SALES Work Phone: [facility] 07-26-2024 10:09-0400 Systolic blood pressure 128 mm[Hg] Yobani Ballesteros BUSINESS EDUCATION INSTRUCTOR.DIRECTOR OF GROUP SALES Work Phone: [facility] 07-01-2024 13:07-0500 Body height 162.6 cm Vikki Elmore MD Work Phone: [facility] 07-01-2024 13:07-0500 Body mass index (BMI) [Ratio] 25.06 kg/m2 Vikki Elmore MD Work Phone: [facility] 07-01-2024 13:07-0500 Body weight 66.22 kg Vikki Elmore MD Work Phone: [facility] 07-01-2024 13:07-0500 Diastolic blood pressure 95 mm[Hg] Vikki Elmore MD Work Phone: [facility] 07-01-2024 13:07-0500 Heart rate 95 /min Vikki Elmore MD Work Phone: [facility] 07-01-2024 13:07-0500 SaO2% (BldA) [Mass fraction] 98 % Vikki Elmore MD Work Phone: [facility] 07-01-2024 13:07-0500 Systolic blood pressure 149 mm[Hg] Vikki Elmore MD Work Phone: [facility] 01-21-2024 12:30-0400 Body mass index (BMI) [Ratio] 25.66 kg/m2 Mayank Arizmendi BUSINESS EDUCATION INSTRUCTOR.DIRECTOR OF GROUP SALES Work Phone: [facility] 01-21-2024 12:30-0400 Body temperature 98.2 [degF] Mayank Arizmendi BUSINESS EDUCATION INSTRUCTOR.DIRECTOR OF GROUP SALES Work Phone: [facility] 01-21-2024 12:30-0400 Body weight 67.8 kg Mayank Arizmendi APRN.DIRECTOR OF GROUP SALES Work Phone: [facility] 01-21-2024 12:30-0400 Diastolic blood pressure 84 mm[Hg] Mayank Arizmendi BUSINESS EDUCATION INSTRUCTOR.DIRECTOR OF GROUP SALES Work Phone: [facility] 01-21-2024 12:30-0400 Heart rate 71 /min Mayank Arizmendi BUSINESS EDUCATION INSTRUCTOR.DIRECTOR OF GROUP SALES Work Phone: [facility] 01-21-2024 12:30-0400 Respiratory rate 18 /min Mayank Arizmendi APRN.DIRECTOR OF GROUP SALES Work Phone: [facility] 01-21-2024 12:30-0400 SaO2% (BldA) [Mass fraction] 98 % Mayank Arizmendi APRN.DIRECTOR OF GROUP SALES Work Phone: [facility] 01-21-2024 12:30-0400 Systolic blood pressure 138 mm[Hg] Mayank Arizmendi BUSINESS EDUCATION INSTRUCTOR.DIRECTOR OF GROUP SALES Work Phone: [facility] 08-28-2023 11:44-0400 Body height 162.[address] Starr Motley Work Phone: [facility] 08-28-2023 11:31-0400 Body mass index (BMI) [Ratio] 23.9 kg/m2 Dr. Starr Motley Work Phone: [facility] 08-28-2023 11:31-0400 Body weight 63.[address] Starr Motley Work Phone: [facility] 08-28-2023 11:31-0400 Diastolic blood pressure 82 mm[Hg] Dr. Starr Motley Work Phone: [facility] 08-28-2023 11:31-0400 Systolic blood pressure 114 mm[Hg] Dr. Starr Motley Work Phone: [facility] 06-21-2023 09:53-0500 Body temperature 97.6 [degF] [facility] 06-21-2023 09:53-0500 Diastolic blood pressure 78 mm[Hg] [facility] 06-21-2023 09:53-0500 Heart rate 64 /min [facility] 06-21-2023 09:53-0500 Respiratory rate 16 /min [facility] 06-21-2023 09:53-0500 SaO2% (BldA) [Mass fraction] 99 % [facility] 06-21-2023 09:53-0500 Systolic blood pressure 131 mm[Hg] [facility] 06-21-2023 09:24-0500 Body height 162.56 cm [facility] 06-21-2023 09:24-0500 Body mass index (BMI) [Ratio] 24.8 kg/m2 [facility] 06-21-2023 09:24-0500 Body weight 65.58 kg [facility] 04-07-2023 13:58-0500 Body temperature 98.71 [degF] Antonino Snyder MD Work Phone: [facility] 04-07-2023 13:58-0500 Body weight 66.5 kg Antonino Snyder MD Work Phone: [facility] 04-07-2023 13:58-0500 Diastolic blood pressure 74 mm[Hg] Antonino Snyder MD Work Phone: [facility] 04-07-2023 13:58-0500 Heart rate 67 /min Antonino Snyder MD Work Phone: [facility] 04-07-2023 13:58-0500 Respiratory rate 18 /min Antonino Snyder MD Work Phone: [facility] 04-07-2023 13:58-0500 SaO2% (BldA) [Mass fraction] 96 % Antonino Snyder MD Work Phone: [facility] 04-07-2023 13:58-0500 Systolic blood pressure 111 mm[Hg] Antonino Snyder MD Work Phone: [facility] 03-19-2023 18:31-0400 Diastolic blood pressure 69 mm[Hg] Alejandro Ruiz MD Work Phone: [facility] 03-19-2023 18:31-0400 Heart rate 59 /min Alejandro Ruiz MD Work Phone: [facility] 03-19-2023 18:31-0400 Respiratory rate 17 /min Alejandro Ruiz MD Work Phone: [facility] 03-19-2023 18:31-0400 SaO2% (BldA) [Mass fraction] 99 % Alejandro Ruiz MD Work Phone: [facility] 03-19-2023 18:31-0400 Systolic blood pressure 112 mm[Hg] Alejandro Ruiz MD Work Phone: [facility] 03-19-2023 16:48-0400 Body height 162.6 cm Alejandro Ruiz MD Work Phone: [facility] 03-19-2023 16:48-0400 Body mass index (BMI) [Ratio] 25.75 kg/m2 Alejandro Ruiz MD Work Phone: [facility] [employer] 03-19-2023 16:48-0400 Body temperature 98.01 [degF] Alejandro Ruiz MD Work Phone: [facility] 03-19-2023 16:48-0400 Body weight 68.04 kg Alejandro Ruiz MD Work Phone: [facility] [employer] 03-19-2023 12:34-0400 Body mass index (BMI) [Ratio] 25.7 kg/m2 [facility] 03-19-2023 12:34-0400 Body temperature 96.7 [degF] [facility] 03-19-2023 12:34-0400 Body weight 68.12 kg [facility] 03-19-2023 12:34-0400 Diastolic blood pressure 84 mm[Hg] [facility] 03-19-2023 12:34-0400 Heart rate 65 /min [facility] 03-19-2023 12:34-0400 Respiratory rate 16 /min [facility] 03-19-2023 12:34-0400 SaO2% (BldA) [Mass fraction] 100 % [facility] 03-19-2023 12:34-0400 Systolic blood pressure 128 mm[Hg] [facility] 03-08-2023 10:15-0400 Body temperature 97.9 [degF] Inés Flores BUSINESS EDUCATION INSTRUCTOR.DIRECTOR OF GROUP SALES Work Phone: [facility] 03-08-2023 10:15-0400 Body weight 70.49 kg Inés Flores BUSINESS EDUCATION INSTRUCTOR.DIRECTOR OF GROUP SALES Work Phone: [facility] 03-08-2023 10:15-0400 Diastolic blood pressure 87 mm[Hg] Inés Flores BUSINESS EDUCATION INSTRUCTOR.DIRECTOR OF GROUP SALES Work Phone: [facility] 03-08-2023 10:15-0400 Heart rate 52 /min Inés Flores BUSINESS EDUCATION INSTRUCTOR.DIRECTOR OF GROUP SALES Work Phone: [facility] 03-08-2023 10:15-0400 Respiratory rate 18 /min Inés Flores BUSINESS EDUCATION INSTRUCTOR.DIRECTOR OF GROUP SALES Work Phone: [facility] 03-08-2023 10:15-0400 SaO2% (BldA) [Mass fraction] 99 % Inés Flores BUSINESS EDUCATION INSTRUCTOR.DIRECTOR OF GROUP SALES Work Phone: [facility] 03-08-2023 10:15-0400 Systolic blood pressure 131 mm[Hg] Inés Flores BUSINESS EDUCATION INSTRUCTOR.DIRECTOR OF GROUP SALES Work Phone: [facility] 03-03-2023 22:06-0400 Heart rate 65 /min Dr. Starr Motley Work Phone: 2(554)990-874619 [place] [address] 03-03-2023 22:06-0400 Respiratory rate 16 /min Dr. Starr Motley Work Phone: 5(527)324-281676 [place] [address] 03-03-2023 22:06-0400 SaO2% (BldA) [Mass fraction] 99 % Dr. Starr Motley Work Phone: 4(503)090-196376 [place] [address] 03-03-2023 18:54-0400 Body height 162.[address] Starr Motley Work Phone: 3(157)320-451076 [place] [address] 03-03-2023 18:54-0400 Body mass index (BMI) [Ratio] 25.9 kg/m2 Dr. Starr Motley Work Phone: 3(596)960-680176 [place] [address] 03-03-2023 18:54-0400 Body temperature 97.9 [degF] Dr. Starr Motley Work Phone: 6(964)522-052576 [place] [address] 03-03-2023 18:54-0400 Body weight 68.[address] Starr Moltey Work Phone: 8(822)248-402176 [place] [address] 03-03-2023 18:54-0400 Diastolic blood pressure 82 mm[Hg] Dr. Starr Motley Work Phone: 9(473)860-591476 [place] [address] 03-03-2023 18:54-0400 Systolic blood pressure 108 mm[Hg] Dr. Starr Motley Work Phone: 2(313)258-449376 [place] [address] 12-30-2022 10:50-0400 Diastolic blood pressure 86 mm[Hg] Dr. Starr Motley Work Phone: 0(518)322-333476 [place] [address] 12-30-2022 10:50-0400 Heart rate 53 /min Dr. Starr Motley Work Phone: 1(907)933-942919 [place] [address] 12-30-2022 10:50-0400 Respiratory rate 16 /min Dr. Starr Motley Work Phone: 6(605)749-996676 [place] [address] 12-30-2022 10:50-0400 SaO2% (BldA) [Mass fraction] 98 % Dr. Starr Motley Work Phone: 9(752)562-762876 [place] [address] 12-30-2022 10:50-0400 Systolic blood pressure 119 mm[Hg] Dr. Starr Motley Work Phone: 6(022)967-646476 [place] [address] 12-30-2022 09:02-0400 Body height 162.[address] Starr Motley Work Phone: 1(189)909-806576 [place] [address] 12-30-2022 09:02-0400 Body mass index (BMI) [Ratio] 27.1 kg/m2 Dr. Starr Motley Work Phone: 1(941)719-284476 [place] [address] 12-30-2022 09:02-0400 Body temperature 96.9 [degF] Dr. Starr Motley Work Phone: 4(368)504-723276 [place] [address] 12-30-2022 09:02-0400 Body weight 71.[address] Starr Motley Work Phone: 6(152)448-549576 [place] [address] 11-27-2022 14:25-0400 Body height 162.[address] Starr Motley Work Phone: 6(353)071-088876 [place] [address] 11-27-2022 14:17-0400 Body mass index (BMI) [Ratio] 26.4 kg/m2 Dr. Starr Motley Work Phone: 2(009)084-761676 [place] [address] 11-27-2022 14:17-0400 Body weight 69.[address] Starr Motley Work Phone: 0(116)401-746176 [place] [address] 11-27-2022 14:17-0400 Diastolic blood pressure 71 mm[Hg] Dr. Starr Motley Work Phone: 0(642)981-727076 [place] [address] 11-27-2022 14:17-0400 Systolic blood pressure 108 mm[Hg] Dr. Starr Motley Work Phone: 2(555)477-464676 [place] [address] 10-08-2022 00:11-0400 Diastolic blood pressure 86 mm[Hg] Dr. Starr Motley Work Phone: 2(714)616-533176 [place] [address] 10-08-2022 00:11-0400 Heart rate 59 /min Dr. Starr Motley Work Phone: 7(105)357-529895 [address] 10-08-2022 00:11-0400 Respiratory rate 16 /min Dr. Starr Motley Work Phone: 7(484)898-891376 [place] [address] 10-08-2022 00:11-0400 SaO2% (BldA) [Mass fraction] 98 % Dr. Starr Motley Work Phone: 7(355)266-278619 [place] [address] 10-08-2022 00:11-0400 Systolic blood pressure 136 mm[Hg] Dr. Starr Motley Work Phone: 0(867)158-781276 [place] [address] 10-07-2022 20:54-0400 Body mass index (BMI) [Ratio] 26.8 kg/m2 Dr. Starr Motley Work Phone: 4(770)543-195876 [place] [address] 10-07-2022 20:54-0400 Body temperature 98.4 [degF] Dr. Starr Motley Work Phone: 4(959)851-995576 [place] [address] 10-07-2022 20:54-0400 Body weight 70.[address] Starr Motley Work Phone: 2(990)762-378676 [place] [address] 09-15-2022 21:29-0400 Diastolic blood pressure 74 mm[Hg] Dr. Starr Motley Work Phone: 8(715)087-653676 [place] [address] 09-15-2022 21:29-0400 Heart rate 75 /min Dr. Starr Motley Work Phone: 4(978)940-288919 [place] [address] 09-15-2022 21:29-0400 Respiratory rate 16 /min Dr. Starr Motley Work Phone: 5(516)164-571776 [place] [address] 09-15-2022 21:29-0400 SaO2% (BldA) [Mass fraction] 99 % Dr. Starr Motley Work Phone: 2(375)319-129176 [place] [address] 09-15-2022 21:29-0400 Systolic blood pressure 120 mm[Hg] Dr. Starr Motley Work Phone: 3(998)922-605476 [place] [address] 09-15-2022 19:00-0400 Body height 162.[address] Starr Motley Work Phone: [facility] 09-15-2022 19:00-0400 Body mass index (BMI) [Ratio] 26.8 kg/m2 Dr. Starr Motley Work Phone: [facility] 09-15-2022 19:00-0400 Body temperature 97.4 [degF] Dr. Starr Motley Work Phone: [facility] 09-15-2022 19:00-0400 Body weight 70.[address] Starr Motley Work Phone: 1(207)264-795395 [address] 09-11-2022 09:13-0400 Body height 162.[address] Starr Motley Work Phone: 4(903)559-009876 [place] [address] 09-11-2022 09:06-0400 Body mass index (BMI) [Ratio] 27.3 kg/m2 Dr. Starr Motley Work Phone: 5(108)340-854976 [place] [address] 09-11-2022 09:06-0400 Body weight 72.[address] Starr Motley Work Phone: 7(761)589-801195 [address] 09-11-2022 09:06-0400 Diastolic blood pressure 76 mm[Hg] Dr. Starr Motley Work Phone: [facility] 09-11-2022 09:06-0400 Systolic blood pressure 104 mm[Hg] Dr. Starr Motley Work Phone: [facility] 08-07-2022 19:07-0400 Body temperature 98.49 [degF] Athy PA-C Work Phone: [facility] 08-07-2022 19:07-0400 Body weight 73.75 kg Athy PA-C Work Phone: [facility] 08-07-2022 19:07-0400 Diastolic blood pressure 64 mm[Hg] Athy PA-C Work Phone: [facility] 08-07-2022 19:07-0400 Heart rate 80 /min Athy PA-C Work Phone: [facility] 08-07-2022 19:07-0400 Respiratory rate 16 /min Cara Harrison PA-C Work Phone: [facility] 08-07-2022 19:07-0400 SaO2% (BldA) [Mass fraction] 97 % Cara Mcmulleny PA-C Work Phone: [facility] 08-07-2022 19:07-0400 Systolic blood pressure 106 mm[Hg] Cara Mcmulleny PA-C Work Phone: [facility] 08-01-2022 15:03-0400 Body weight 71.22 kg Merlyn Tannhof BUSINESS EDUCATION INSTRUCTOR.DIRECTOR OF GROUP SALES Work Phone: [facility] 08-01-2022 15:03-0400 Diastolic blood pressure 86 mm[Hg] Merlyn Tannhof BUSINESS EDUCATION INSTRUCTOR.DIRECTOR OF GROUP SALES Work Phone: [facility] 08-01-2022 15:03-0400 Heart rate 72 /min Merlyn Tannhof BUSINESS EDUCATION INSTRUCTOR.DIRECTOR OF GROUP SALES Work Phone: [facility] 08-01-2022 15:03-0400 Respiratory rate 16 /min Merlyn Tannhof BUSINESS EDUCATION INSTRUCTOR.DIRECTOR OF GROUP SALES Work Phone: [facility] 08-01-2022 15:03-0400 SaO2% (BldA) [Mass fraction] 99 % Merlyn Tannhof BUSINESS EDUCATION INSTRUCTOR.DIRECTOR OF GROUP SALES Work Phone: [facility] 08-01-2022 15:03-0400 Systolic blood pressure 120 mm[Hg] Merlyn Tannhof BUSINESS EDUCATION INSTRUCTOR.DIRECTOR OF GROUP SALES Work Phone: [facility] 07-30-2022 13:58-0400 Body height 162.[address] Starr Motley Work Phone: [facility] 07-30-2022 13:52-0400 Body mass index (BMI) [Ratio] 27.5 kg/m2 Dr. Starr Motley Work Phone: [facility] 07-30-2022 13:52-0400 Body weight 72.[address] Starr Motley Work Phone: [facility] 07-30-2022 13:52-0400 Diastolic blood pressure 78 mm[Hg] Dr. Starr Motley Work Phone: [facility] 07-30-2022 13:52-0400 Systolic blood pressure 130 mm[Hg] Dr. Starr Motley Work Phone: [facility] 07-19-2022 08:06-0500 Body height 162.56 cm [facility] 07-19-2022 08:06-0500 Body mass index (BMI) [Ratio] 27.3 kg/m2 [facility] 07-19-2022 08:06-0500 Body temperature 98 [degF] [facility] 07-19-2022 08:06-0500 Body weight 72.12 kg [facility] 07-19-2022 08:06-0500 Diastolic blood pressure 93 mm[Hg] [facility] 07-19-2022 08:06-0500 Heart rate 75 /min [facility] 07-19-2022 08:06-0500 Respiratory rate 18 /min [facility] 07-19-2022 08:06-0500 SaO2% (BldA) [Mass fraction] 100 % [facility] 07-19-2022 08:06-0500 Systolic blood pressure 141 mm[Hg] [facility] 07-02-2022 13:28-0500 Body temperature 99 [degF] Athy PA-C Work Phone: [facility] 07-02-2022 13:28-0500 Body weight 72.39 kg Athy PA-C Work Phone: [facility] 07-02-2022 13:28-0500 Diastolic blood pressure 82 mm[Hg] Athy PA-C Work Phone: [facility] 07-02-2022 13:28-0500 Heart rate 66 /min Acra Athy PA-C Work Phone: [facility] 07-02-2022 13:28-0500 Respiratory rate 18 /min Athy PA-C Work Phone: [facility] 07-02-2022 13:28-0500 SaO2% (BldA) [Mass fraction] 99 % Cara Harrison PA-C Work Phone: [facility] 07-02-2022 13:28-0500 Systolic blood pressure 124 mm[Hg] Cara Harrison PA-C Work Phone: [facility] 05-13-2022 21:20-0500 Body height 162.56 cm [facility] Work Phone: 05-13-2022 21:20-0500 Body mass index (BMI) [Ratio] 26.9 kg/m2 [facility] 05-13-2022 21:20-0500 Body temperature 97.5 [degF] [facility] 05-13-2022 21:20-0500 Body weight 71.21 kg [facility] 05-13-2022 21:20-0500 Diastolic blood pressure 86 mm[Hg] [facility] 05-13-2022 21:20-0500 Heart rate 65 /min [facility] 05-13-2022 21:20-0500 Respiratory rate 14 /min [facility] 05-13-2022 21:20-0500 SaO2% (BldA) [Mass fraction] 100 % [facility] 05-13-2022 21:20-0500 Systolic blood pressure 135 mm[Hg] [facility] 03-31-2022 11:37-0500 Respiratory rate 16 /min [facility] 03-31-2022 07:38-0500 Body height 162.56 cm [facility] Work Phone: 03-31-2022 07:38-0500 Body mass index (BMI) [Ratio] 26.9 kg/m2 [facility] 03-31-2022 07:38-0500 Body temperature 97.6 [degF] [facility] 03-31-2022 07:38-0500 Body weight 71.21 kg [facility] 11-12-2022 07:38-0500 Diastolic blood pressure 98 mm[Hg] [facility] 03-31-2022 07:38-0500 Heart rate 97 /min [facility] 03-31-2022 07:38-0500 SaO2% (BldA) [Mass fraction] 99 % [facility] 03-31-2022 07:38-0500 Systolic blood pressure 139 mm[Hg] [facility] 11-22-2021 16:01-0400 Body weight 72.39 kg Starr Motley MD Work Phone: [facility] 11-22-2021 16:01-0400 Diastolic blood pressure 72 mm[Hg] Starr Motley MD Work Phone: [facility] 11-22-2021 16:01-0400 Heart rate 78 /min Starr Motley MD Work Phone: [facility] 11-22-2021 16:01-0400 Respiratory rate 16 /min Starr Motley MD Work Phone: [facility] 11-22-2021 16:01-0400 Systolic blood pressure 120 mm[Hg] Starr Motley MD Work Phone: [facility] 11-12-2021 23:03-0400 Diastolic blood pressure 84 mm[Hg] Dr. Starr Motley Work Phone: [facility] Work Phone: 11-12-2021 23:03-0400 Heart rate 60 /min Dr. Starr Motley Work Phone: [facility] Work Phone: 11-12-2021 23:03-0400 Respiratory rate 15 /min Dr. Starr Motley Work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 08-20-2021 CT of abdomen and pe lvis without contrast Dr. Starr Motley Work Phone: Start: 08-19-[address] Starr Motley Work Phone: Start: 07-25-2021 CT angiography of ne ck vessels Start: 05-18-2021 Plain X-ray abdomen Start: 05-11-2021 Urine culture Start: 05-11-2021 Diagnostic radiograp hy of abdomen Start: 04-25-2021 Urine culture Start: 04-25-2021 CT of abdomen and pe lvis without contrast Start: 10-10-2018 Adult depression scr eening assessment Kota Acuña APRN.DIRECTOR OF GROUP SALES Work Phone: Bacteria identified in Blood by Culture Dr. Starr Motley Work Phone: Cytopathology proced ure, preparation of smear, genital source Dr. Starr Motley Work Phone: Investigation of transfusion reaction Dr. Starr Motley Work Phone: Urine culture Dr. Starr wong Work Phone: Urine culture Urine culture Dr. Starr wong Work Phone: Urine culture Dr. 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[employer] ROLLING/Protein C deficiency (HCC) [D68.59] Start: 01-18-2025 Influenza vaccination [facility] Start: 01-15-2025 Foot min 3 Views Foot min 3 Views [facility] Start: 01-15-2025 XR Foot GE 3 Views [facility] Start: 12-30-2024 End: 12-30-2024 Patient encounter procedure 12/30/2024 1:30 PM EDT Office Visit Gastroenterology [address] [place] [address] Vikik Elmore MD [facility] [address] [id number] CGRT / PAGE [id number] Gastroenterology Comment on above: CGRT / PAGE [id number] Start: 12-30-2024 End: 12-30-2024 ambulatory 12/30/2024 1:00 PM EDT Education Gastroenterology [address] [id number] Dietitian, Cgrt [address] [place] [address] CGRT / PAGE [id number] Gastroenterology Comment on above: CGRT / PAGE [id number] Start: 12-21-2024 End: 03-22-2025 25-hydroxyvitamin D3 [Mass/volume] in Serum or Plasma VITAMIN D 25 HYDROXY Lab Routine 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) Expected: 12/21/2024, Expires: 03/22/2025 [facility] Comment on above: Expected: 12/21/2024, Expires: Start: 12-21-2024 End: 03-22-2025 CBC panel - Blood by Automated count COMPLETE BLOOD COUNT Lab Routine 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) Expected: 12/21/2024, Expires: 03/22/2025 [facility] Comment on above: Expected: 12/21/2024, Expires: Start: 12-21-2024 End: 03-22-2025 Cobalamin (Vitamin B12) [Mass/volume] in Serum or Plasma VITAMIN B12 Lab Routine 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) Expected: 12/21/2024, Expires: 03/22/2025 [facility] Comment on above: Expected: 12/21/2024, Expires: Start: 12-21-2024 End: 03-22-2025 Comprehensive metabolic 2000 panel - Serum or Plasma COMPREHENSIVE METABOLIC PANEL Lab Routine 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) Expected: 12/21/2024, Expires: 03/22/[address] [facility] Work Phone: Comment on above: Expected: 12/21/2024, Expires: Start: 12-21-2024 End: 03-22-2025 COPPER BLOOD COPPER BLOOD Lab Routine 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) Expected: 12/21/2024, Expires: 03/22/2025 [facility] Comment on above: Expected: 12/21/2024, Expires: Start: 12-21-2024 End: 03-22-2025 Magnesium [Mass/volume] in Serum or Plasma MAGNESIUM Lab Routine 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) Expected: 12/21/2024, Expires: 03/22/2025 [facility] Comment on above: Expected: 12/21/2024, Expires: Start: 12-21-2024 End: 03-22-2025 Methylmalonate [Moles/volume] in Serum or Plasma METHYLMALONIC ACID Lab Routine 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) Expected: 12/21/2024, Expires: 03/22/2025 [facility] Comment on above: Expected: 12/21/2024, Expires: Start: 12-21-2024 End: 03-22-2025 Phosphate [Mass/volume] in Serum or Plasma PHOSPHORUS INORGANIC Lab Routine 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) Expected: 12/21/2024, Expires: 03/22/2025 [facility] Comment on above: Expected: 12/21/2024, Expires: Start: 12-21-2024 End: 03-22-2025 Retinol [Mass/volume] in Serum or Plasma VITAMIN A/RETINOL Lab Routine 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) Expected: 12/21/2024, Expires: 03/22/2025 [facility] Comment on above: Expected: 12/21/2024, Expires: Start: 12-21-2024 End: 03-22-2025 Zinc [Mass/volume] in Serum or Plasma ZINC BLD Lab Routine 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) Expected: 12/21/2024, Expires: 03/22/2025 [facility] Comment on above: Expected: 12/21/2024, Expires: Start: 11-13-2024 [facility] Start: 10-04-2024 End: 01-03-2025 25-hydroxyvitamin D3 [Mass/volume] in Serum or Plasma VITAMIN D 25 HYDROXY Lab Routine Vitamin D deficiency Expected: 10/04/2024, Expires: 01/03/2025 [facility] Comment on above: Expected: 10/04/2024, Expires: Start: 10-04-2024 End: 01-03-2025 Alpha tocopherol [Mass/volume] in Serum or Plasma VITAMIN E/TOCOPHEROL Lab Routine Diarrhea due to malabsorption Vitamin E deficiency Expected: 10/04/2024, Expires: 01/03/2025 [facility] Comment on above: Expected: 10/04/2024, Expires: Start: 10-04-2024 End: 01-03-2025 COPPER BLOOD COPPER BLOOD Lab Routine Copper deficiency Expected: 10/04/2024, Expires: 01/03/2025 [facility] Comment on above: Expected: 10/04/2024, Expires: Start: 10-04-2024 End: 01-03-2025 Retinol [Mass/volume] in Serum or Plasma VITAMIN A/RETINOL Lab Routine Vitamin A deficiency Expected: 10/04/2024, Expires: 01/03/2025 [facility] Comment on above: Expected: 10/04/2024, Expires: Start: 08-20-2024 End: 11-19-2024 Basic metabolic 2000 panel - Serum or Plasma BASIC METABOLIC PANEL Lab Routine Diarrhea due to malabsorption Hypokalemia Expected: 08/20/2024, Expires: 11/19/[address] [facility] Work Phone: Comment on above: Expected: 08/20/2024, Expires: Start: 08-20-2024 End: 11-19-2024 Magnesium [Mass/volume] in Serum or Plasma MAGNESIUM Lab Routine Diarrhea due to malabsorption Hypomagnesemia Expected: 08/20/2024, Expires: 11/19/2024 [facility] Comment on above: Expected: 08/20/2024, Expires: Start: 07-22-2024 End: 07-22-2024 ambulatory 07/22/2024 10:00 AM EST Results Only [address] [facility] [address] [place] [address] [facility] Start: 07-21-2024 End: 10-20-2024 Alpha tocopherol [Mass/volume] in Serum or Plasma VITAMIN E/TOCOPHEROL Lab Routine Vitamin E deficiency Expected: 07/21/2024, Expires: 10/20/2024 [facility] Comment on above: Expected: 07/21/2024, Expires: Start: 07-21-2024 End: 10-20-2024 Basic metabolic 2000 panel - Serum or Plasma BASIC METABOLIC PANEL Lab Routine Diarrhea due to malabsorption Expected: 07/21/2024, Expires: 10/20/2024 [facility] Comment on above: Expected: 07/21/2024, Expires: Start: 07-21-2024 End: 10-20-2024 Magnesium [Mass/volume] in Serum or Plasma MAGNESIUM Lab Routine Magnesium deficiency Expected: 07/21/2024 (Approximate), Expires: 10/20/[address] [facility] Work Phone: Comment on above: Expected: 07/21/2024 (Approximate), Expi res: 10/20/2024 Start: 07-03-2024 End: 10-02-2024 C reactive protein [Mass/volume] in Serum or Plasma C-REACTIVE PROTEIN Lab Routine Diarrhea due to malabsorption Expected: 07/03/2024, Expires: 10/02/[address] [facility] Work Phone: Comment on above: Expected: 07/03/2024, Expires: Start: 07-01-2024 End: 09-30-2024 Alpha tocopherol [Mass/volume] in Serum or Plasma [facility] Comment on above: Expected: 07/01/2024, Expires: Start: 07-01-2024 End: 09-30-2024 COPPER BLOOD [facility] Comment on above: Expected: 07/01/2024, Expires: Start: 07-01-2024 End: 09-30-2024 Iron and Iron binding capacity panel - Serum or Plasma [facility] Comment on above: Expected: 07/01/2024, Expires: Start: 07-01-2024 End: 09-30-2024 Magnesium [Mass/volume] in Serum or Plasma [facility] Comment on above: Expected: 07/01/2024, Expires: Start: 07-01-2024 End: 09-30-2024 Methylmalonate [Moles/volume] in Serum or Plasma [facility] Comment on above: Expected: 07/01/2024, Expires: Start: 07-01-2024 End: 09-30-2024 Phosphate [Mass/volume] in Serum or Plasma [facility] Comment on above: Expected: 07/01/2024, Expires: Start: 07-01-2024 End: 09-30-2024 Pyridoxine [Mass/volume] in Serum or Plasma [facility] Comment on above: Expected: 07/01/2024, Expires: Start: 07-01-2024 End: 09-30-2024 Retinol [Mass/volume] in Serum or Plasma [facility] Comment on above: Expected: 07/01/2024, Expires: Start: 07-01-2024 End: 09-30-2024 Thyrotropin [Units/volume] in Serum or Plasma [facility] Work Phone: Comment on above: Expected: 07/01/2024, Expires: Start: 07-01-2024 End: 09-30-2024 VITAMIN B1 (THIAMINE), WHOLE BLOOD [facility] Comment on above: Expected: 07/01/2024, Expires: Start: 07-01-2024 End: 09-30-2024 VITAMIN K [facility] Comment on above: Expected: 07/01/2024, Expires: Start: 07-01-2024 End: 09-30-2024 Zinc [Mass/volume] in Serum or Plasma [facility] Comment on above: Expected: 07/01/2024, Expires: Start: 06-08-2024 BP Controlled (<130/80) BP Controlled (<130/80) [facility] in Start: 04-07-2024 BP Controlled (<130/80) BP Controlled (<130/80) [facility] Start: 01-19-2024 Covid-19 Vaccine ( season) Covid-19 Vaccine () [facility] Start: 01-19-2024 Covid-19 Vaccine () Covid-19 Vaccine () [facility] Start: 01-19-2024 Influenza vaccination [facility] Start: 01-03-2024 End: 04-03-2024 25-hydroxyvitamin D3 [Mass/volume] in Serum or Plasma VITAMIN D 25 HYDROXY Lab Routine Vitamin D deficiency Expected: 01/03/2024, Expires: 04/03/2024 [facility] Comment on above: Expected: 01/03/2024, Expires: Start: 01-03-2024 End: 04-03-2024 Alpha tocopherol [Mass/volume] in Serum or Plasma VITAMIN E/TOCOPHEROL Lab Routine Vitamin E deficiency Expected: 01/03/2024, Expires: 04/03/2024 [facility] Comment on above: Expected: 01/03/2024, Expires: Start: 01-03-2024 End: 04-03-2024 Retinol [Mass/volume] in Serum or Plasma VITAMIN A/RETINOL Lab Routine Vitamin A deficiency Expected: 01/03/2024, Expires: 04/03/2024 [facility] Comment on above: Expected: 01/03/2024, Expires: Start: 10-30-2023 End: 10-30-2023 Patient encounter procedure 10/30/2023 1:30 PM EDT Office Visit Gastroenterology [address] [id number] Vikki Elmore MD [facility] [address] [place], [place] [id number] CGRT / PAGE [id number] Gastroenterology Comment on above: CGRT / PAGE [id number] Start: 10-30-2023 End: 10-30-2023 ambulatory 10/30/2023 1:00 PM EDT Education Gastroenterology [address] [id number] Dietitian, Cg [address] [place] [address] CGRT / PAGE [id number] Gastroenterology Comment on above: CGRT / PAGE [id number] Start: 10-10-2023 End: 01-09-2024 Basic metabolic 2000 panel - Serum or Plasma BASIC METABOLIC PANEL Lab Routine Diarrhea due to malabsorption Hypokalemia Expected: 10/10/2023, Expires: 01/09/[address] [facility] Work Phone: Comment on above: Expected: 10/10/2023, Expires: Start: 10-10-2023 End: 01-09-2024 Magnesium [Mass/volume] in Serum or Plasma MAGNESIUM Lab Routine Diarrhea due to malabsorption Magnesium deficiency Expected: 10/10/2023, Expires: 01/09/2024 [facility] Comment on above: Expected: 10/10/2023, Expires: Start: 10-03-2023 BP CONTROLLED (<130/80) BP CONTROLLED (<130/80) [facility] Start: 09-11-2023 End: 12-11-2023 25-hydroxyvitamin D3 [Mass/volume] in Serum or Plasma VITAMIN D 25 HYDROXY Lab 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 Expected: 09/11/2023 (Approximate), Expires: 12/11/[address] [facility] Work Phone: Comment on above: Expected: 09/11/2023 (Approximate), Expi res: 12/11/2023 Start: 09-11-2023 End: 12-11-2023 Alpha tocopherol [Mass/volume] in Serum or Plasma VITAMIN E/TOCOPHEROL Lab 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 Expected: 09/11/2023 (Approximate), Expires: 12/11/[address] [facility] Work Phone: Comment on above: Expected: 09/11/2023 (Approximate), Expi res: 12/11/2023 Start: 09-11-2023 End: 12-11-2023 Cobalamin (Vitamin B12) [Mass/volume] in Serum or Plasma VITAMIN B12 Lab 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 Expected: 09/11/2023 (Approximate), Expires: 12/11/[address] [facility] Work Phone: Comment on above: Expected: 09/11/2023 (Approximate), Expi res: 12/11/2023 Start: 09-11-2023 End: 12-11-2023 Comprehensive metabolic 2000 panel - Serum or Plasma COMPREHENSIVE METABOLIC PANEL Lab 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 Expected: 09/11/2023 (Approximate), Expires: 12/11/[address] [facility] Work Phone: Comment on above: Expected: 09/11/2023 (Approximate), Expi res: 12/11/2023 Start: 09-11-2023 End: 12-11-2023 Magnesium [Mass/volume] in Serum or Plasma MAGNESIUM Lab 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 Expected: 09/11/2023 (Approximate), Expires: 12/11/[address] [facility] Work Phone: Comment on above: Expected: 09/11/2023 (Approximate), Expi res: 12/11/2023 Start: 09-11-2023 End: 12-11-2023 Methylmalonate [Moles/volume] in Serum or Plasma METHYLMALONIC ACID Lab 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 Expected: 09/11/2023 (Approximate), Expires: 12/11/[address] [facility] Work Phone: Comment on above: Expected: 09/11/2023 (Approximate), Expi res: 12/11/2023 Start: 09-11-2023 End: 12-11-2023 Phosphate [Mass/volume] in Serum or Plasma PHOSPHORUS INORGANIC Lab 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 Expected: 09/11/2023 (Approximate), Expires: 12/11/[address] [facility] Work Phone: Comment on above: Expected: 09/11/2023 (Approximate), Expi res: 12/11/2023 Start: 09-11-2023 End: 12-11-2023 Retinol [Mass/volume] in Serum or Plasma VITAMIN A/RETINOL Lab 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 Expected: 09/11/2023 (Approximate), Expires: 12/11/[address] [facility] Work Phone: Comment on above: Expected: 09/11/2023 (Approximate), Expi res: 12/11/2023 Start: 09-03-2023 HPV TESTING HPV TESTING [facility] Start: 09-03-2023 PAP TESTING PAP TESTING [facility] Start: 09-03-2023 Screening for malignant neoplasm of cervix [facility] Start: 08-28-2023 Liquid based cervical cytology screening [facility] Start: 08-08-2023 BP CONTROLLED (<130/80) BP CONTROLLED (<130/80) [facility] Start: 08-02-2023 ANNUAL PCP TEAM CHRONIC DISEASE VISIT ANNUAL PCP TEAM CHRONIC DISEASE VISIT [facility] Start: 07-01-2023 End: 09-30-2023 Basic metabolic 2000 panel - Serum or Plasma BASIC METABOLIC PNL Lab Routine Diarrhea due to malabsorption Expected: 07/01/2023, Expires: 09/30/[address] [facility] Work Phone: Comment on above: Expected: 07/01/2023, Expires: 4 Start: 07-01-2023 End: 09-30-2023 Magnesium [Mass/volume] in Serum or Plasma MAGNESIUM BLD Lab Routine Diarrhea due to malabsorption Expected: 07/01/2023, Expires: 09/30/[address] [facility] Work Phone: Comment on above: Expected: 07/01/2023, Expires: 4 Start: 06-21-2023 End: 09-20-[address] [facility] Work Phone: Comment on above: Expected: 06/21/2023, Expires: 4 Start: 06-21-2023 [facility] Start: 05-20-2023 Behavioral Health Screening Behavioral Health Screening [facility] Start: 05-20-2023 Depression Assessment Depression Assessment [facility] Start: 04-07-2023 End: 04-21-2023 COVID AND INFLUENZA A/B & RSV NAAT, EXPEDITED [facility] Work Phone: Comment on above: Expected: 04/07/2023, Expires: 3 Start: 03-08-2023 End: 03-22-2023 COVID & INFLUENZA A/B & RSV NAAT, ROUTINE [facility] Work Phone: Comment on above: Expected: 03/08/2023, Expires: 3 Start: 03-03-2023 [facility] Start: 03-03-2023 [facility] Start: 03-03-2023 Bacteria identified in Urine by Culture Urine Culture [facility] Start: 01-18-2023 Covid-19 Vaccine () Covid-19 Vaccine () [facility] Start: 01-18-2023 Influenza vaccination [facility] Start: 11-22-2022 Adult depression screening assessment DEPRESSION SCREENING [facility] Start: 11-22-2022 ANNUAL PCP TEAM CHRONIC DISEASE VISIT ANNUAL PCP TEAM CHRONIC DISEASE VISIT [facility] Start: 11-22-2022 BP CONTROLLED (<130/80) BP CONTROLLED (<130/80) [facility] Start: 10-20-2022 BP CONTROLLED (<130/80) BP CONTROLLED (<130/80) [facility] Start: 08-07-2022 End: 08-21-2022 Influenza virus A and B RNA and SARS-CoV-2 (COVID-19) N gene panel - Respiratory specimen by DAVI with probe detection [facility] Work Phone: Comment on above: Expected: 08/07/2022, Expires: 3 Start: 07-19-2022 [facility] Start: 06-08-2022 ANNUAL PCP TEAM CHRONIC DISEASE VISIT ANNUAL PCP TEAM CHRONIC DISEASE VISIT [facility] Start: 05-20-2022 DEPRESSION ASSESSMENT DEPRESSION ASSESSMENT [facility] Start: 05-13-2022 [facility] Work Phone: Start: 01-18-2022 Influenza vaccination [facility] Start: 09-02-2021 Screening for malignant neoplasm of cervix Cervical Cancer Screening [facility] Start: 08-22-2021 Patient discharge [facility] Work Phone: Start: 08-20-2021 Ambulation without limitation [facility] Work Phone: Start: 08-20-2021 Assessment of risk of venous thromboembolism [facility] Work Phone: Start: 08-20-2021 Insertion of catheter into peripheral vein [facility] Work Phone: Start: 08-20-2021 Oxygen therapy [facility] Work Phone: Start: 08-20-2021 Providing care according to standard [facility] Work Phone: Start: 08-20-2021 [facility] Work Phone: Start: 08-20-2021 Following clinical pathway protocol [facility] Work Phone: Start: 08-20-2021 Admission procedure [facility] Work Phone: Start: 08-20-2021 Bacteria identified in Blood by Culture Blood Culture [facility] Work Phone: Start: 08-20-2021 Urine culture Urine Culture [facility] Work Phone: Start: 08-19-2021 Assay of magnesium ASSAY OF MAGNESIUM [facility] Work Phone: Start: 08-19-2021 Bacteria identified in Urine by Culture Urine Culture [facility] Work Phone: Start: 08-19-2021 Basic metabolic panel calcium total METABOLIC PANEL TOTAL CA [facility] Work Phone: Start: 08-19-2021 Blood count complete auto&auto difrntl wbc COMPLETE CBC W/AUTO DIFF WBC [facility] Work Phone: Start: 08-19-2021 Cul bact aerobic addl meths definitive ea isol CULTURE AEROBIC IDENTIFY [facility] Work Phone: Start: 08-19-2021 Culture bacterial quanttative colony count urine URINE CULTURE/COLONY COUNT [facility] Work Phone: Start: 08-19-2021 Culture bct isol&prsmptv id isolate ea urine URINE BACTERIA CULTURE [facility] Work Phone: Start: 08-19-2021 Emergency department visit high/urgent severity EMERGENCY DEPT VISIT [facility] Work Phone: Start: 08-19-2021 Urnls dip stick/tablet reagent auto microscopy URINALYSIS AUTO W/SCOPE [facility] Work Phone: Start: 08-19-2021 [facility] Work Phone: Start: 2021 Mammography [facility] Start: 2021 Screening for malignant neoplasm of breast [facility] Start: 10-11-2019 Adult depression screening assessment DEPRESSION SCREENING [facility] Start: 2011 Screening for malignant neoplasm of cervix [facility] Start: 2008 HPV Vaccine (1 - 3-dose SCDM series) HPV Vaccine (1 - 3-dose SCDM series) [facility] Start: 2002 Screening for malignant neoplasm of cervix Pap Smear [facility] Start: 2000 DTaP/Tdap/Td Vaccines (1 - Tdap) DTaP/Tdap/Td Vaccines (1 - Tdap) [facility] Start: 2000 Hepatitis B Vaccine (1 of 3 - 19+ 3-dose series) Hepatitis B Vaccine (1 of 3 - 19+ 3-dose series) [facility] Start: 2000 Urine microalbumin profile [facility] Start: 1999 Anxiety Screening Anxiety Screening [facility] Start: 1999 BP CONTROLLED (<130/80) BP CONTROLLED (<130/80) [facility] Start: 1999 Depression Screening Depression Screening [facility] Start: 1999 Diabetes mellitus screening Diabetes Screening [facility] Start: 1999 HEPATITIS C SCREENING HEPATITIS C SCREENING [facility] Start: 1999 Hepatitis C screening Hepatitis C Screening [facility] Start: 1999 HIV SCREENING HIV SCREENING [facility] Start: 1993 Depression Screening Depression Screening [facility] Start: 1987 PNEUMOCOCCAL (1 - PCV) PNEUMOCOCCAL (1 - PCV) [facility] Start: 1987 Pneumococcal vaccination Pneumococcal Vaccine (1 - PCV) [facility] Start: 1986 COVID-19 VACCINE (#1) COVID-19 VACCINE (#1) [facility] Start: 1982 MMR Vaccines (1 of 1 - Standard series) MMR Vaccines (1 of 1 - Standard series) [facility] Start: 1982 Varicella vaccination Varicella Vaccines (1 of 2 - 2-dose childhood series) [facility] Start: 1981 COVID-19 VACCINE (#1) COVID-19 VACCINE (#1) [facility] Start: 1981 HEPATITIS B (1 of 3 - 3-dose series) HEPATITIS B (1 of 3 - 3-dose series) [facility] Start: 1981 Hepatitis B Vaccine (1 of 3 - 3-dose series) Hepatitis B Vaccine (1 of 3 - 3-dose series) [facility] Start: 1981 Hepatitis B Vaccines (1 of 3 - 3-dose series) Hepatitis B Vaccines (1 of 3 - 3-dose series) [facility] Start: 1981 HIV screening HIV Screening [facility] Start: 1981 Lipid panel Lipid Panel [facility] Bacteria identified in Urine by Culture Urine Culture [facility] Bacteria identified in Urine by Culture BACTERIAL CULTURE, URINE Microbiology Routine Urinary frequency Ordered: 07/26/[address] [facility] Work Phone: Comment on above: Ordered: 07/26/2024 End: 10-15-2025 DBT Breast - bilateral screening DAISHA SCREENING W PIERO Radiology Routine Encounter for screening mammogram for breast cancer 1 Occurrences starting 09/15/2024 until 10/15/[address] [facility] Work Phone: Comment on above: 1 Occurrences starting 09/15/2024 until 10/15/2025 Gastrointestinal pathogens panel - Stool by DAVI with probe detection [facility] End: 12-07-2023 DAISHA SCREENING DAISHA SCREENING Radiology Routine Encounter for screening mammogram for breast cancer 1 Occurrences starting 11/07/2022 until 12/07/[address] [facility] Work Phone: Comment on above: 1 Occurrences starting 11/07/2022 until 12/07/2023 MG Breast - bilatera l Screening [facility] MG Breast - bilatera l Screening [facility] End: 11-14-2024 MG Breast Screening DAISHA SCREENING Radiology Routine Encounter for screening mammogram for breast cancer 1 Occurrences starting 10/16/2023 until 11/14/[address] [facility] Work Phone: Comment on above: 1 Occurrences starting 10/16/2023 until 11/14/2024 Path report.final Dx Spec [facility] Patient Education [facility] Work Phone: Patient referral [facility] Work Phone: ROUTINE FLU A/B + RSV ROUTINE FL U A/B + RSV Lab Routine Upper respiratory tract infection, unspecified type 03/08/2023 10:[address] [facility] Work Phone: SARS-CoV-2 (COVID-19 ) RNA [Presence] in Respiratory specimen by DAVI with probe detection COVID NAAT, UPPER RESPIRATORY, ROUTINE Microbiology Routine Upper respiratory tract infection, unspecified type 03/08/2023 10:[address] [facility] Work Phone: End: 12-22-2022 Screening mammography bi 2-view breast inc cad DAISHA SCREENING Radiology Routine Encounter for screening mammogram for malignant neoplasm of breast 1 Occurrences starting 11/22/2021 until 12/22/[address] [facility] Work Phone: Comment on above: 1 Occurrences starting 11/22/2021 until 12/22/2022 US [facility] Immunizations Immunization Date Immunization Notes Care Provider Chino chávez 03-01-2016 influenza virus vacc ine, unspecified formulation [facility] Work Phone: [facility] Payers Date Payer Category Payer Self-pay [id number] 2023 Private Health Insurance [employer] [place] [id number] 2023-Present [address] [address] [place] [address] Medicaid [id number] 2023 Unknown [id number] 2022 Medicaid [id number] 2018 Medicaid [employer] [id number] 2018-Present [phone] [address] [place] [address] Medicaid [id number] 2016 Unknown [id number] Unknown [id number] Unknown [employer] [id number] Unknown [id number] Social History Date Type Detail Facility [facility] Work Phone: Start: 08-19-2021 End: 08-28-2023 Tobacco smoking status NHIS Unknown if ever smoked [facility] Start: 05-04-[address] [facility] [place] Start: 05-04-[address] [facility] [place] Start: 05-04-[address] [facility] [place] Start: 04-21-2019 Cigarettes [facility] Start: 1980 Sex Assigned At Female W [facility] Start: 06-08-2021 End: 11-13-2024 Tobacco smoking status NHIS Smokes tobacco daily [facility] Start: 08-16-2000 End: 08-16-2013 History of tobacco use Cigarette Smoker [facility] Start: 06-08-2021 End: 04-22-2023 Cigarettes smoked current (pack per day) - Reported 1.5 [facility] Start: 06-08-2021 End: 01-21-2024 Tobacco use and exposure Smokeless tobacco non-user [facility] Start: 10-20-2021 End: 12-30-2024 Alcohol intake Current non-drinker of alcohol (finding) [facility] Start: 01-01-2014 History SDOH Alcohol Comment currently does not drink [facility] Start: 1980 Sex Assigned At Not on file [facility] Start: 11-12-2021 End: 11-22-2021 Exposure to SARS-CoV-2 (event) Not sure [facility] Start: 10-02-2022 End: 04-22-2023 Tobacco use panel [facility] Start: 04-20-2012 Adult Depression Screening Assessment 0 [facility] Start: 06-08-2023 End: 01-21-2024 Tobacco smoking status NHIS Ex-smoker [facility] Start: 08-16-2000 End: 08-16-2013 History of tobacco use Current smoker [facility] NEGATED: Highlighted row [facility] Medical Equipment Procedure Code Equipment Code Equipment Original Text Equipment Identifier Dates [id number], [id number], [id number] Start: 03-22-2021 End: 07-01-2025 Comment on above: Inject 1 Syringe int ramuscularly once every month. One syringe as directed for Vitamin B12 injection as ordered. 1 Syringe once every month. One syringe as directed for Vitamin B12 injection as ordered. Goals Date Patient Goal Desired Activity /State Functional Status Date Assessment Result Facility 08-22-2021 Functional status Activity Abili ty Independent [facility] Work Phone: 08-21-2021 Functional status Ambulates;Bath room Privilege [facility] Work Phone: 09-13-2016 Are you deaf, or do you have serious difficulty hearing No 09/13/2016 8:10 PM Nubia RogersRn)(Hist), RN No [facility] 09-13-2016 Are you blind, or do you have serious difficulty seeing, even when wearing glasses No 09/13/2016 8:10 PM Nubia RogersRn)(Hist), RN No [facility] 09-13-2016 Do you have serious difficulty walking or climbing stairs No 09/13/2016 8:10 PM Nubia RogersRn)(Hist), RN No [facility] 09-13-2016 Do you have difficul ty dressing or bathing No 09/13/2016 8:10 PM Nubia RogersRn)(Hist), RN No [facility] 09-13-2016 Because of a physica l, mental, or emotional condition, do you have difficulty doing errands alone such as visiting a physician's office or shopping No 09/13/2016 8:10 PM Nubia RogersRn)(Hist), RN No [facility] Mental Status Date Assessment Result Facility 12-30-2022 Cognitive function Level Of Cons ciousness Awake;Alert;Appropriate [facility] Work Phone: 03-31-2022 Cognitive function Level Of Cons ciousness Awake;Alert;Appropriate;Fol lows Commands [facility] Work Phone: 08-22-2021 Cognitive function Appropriate;C ooperative;Uli kative [facility] Work Phone: 08-22-2021 Cognitive function Arousable To Voice/Nam e [facility] Work Phone: 08-19-2021 Cognitive function Level Of Cons ciousness Awake;Alert;Appropriate;Fol lows Commands [facility] Work Phone: 07-25-2021 Cognitive function Level Of Cons ciousness Awake;Alert;Appropriate;Fol lows Commands [facility] Work Phone: 09-13-2016 Because of a physica l, mental, or emotional condition, do you have serious difficulty concentrating, remembering, or making decisions No 09/13/2016 8:10 PM Nubia RogersRn)(Hist), RN No [facility] Clinical Notes 05-25-2016 to 01-07-2025 Telephone Encounter - Joel Walsh - 01/07/2025 8:49 AM EDTTelephone Encounter - Joel Walsh - 01/07/2025 8:49 AM EDTTelephone Encounter - Kyler Espinosa DO - 01/07/2025 6:36 AM EDTAttachments Note Date & Type Note Facility 01-07-2025 Telephone encounter Note Spoke w pt and this is scheduled w Dr Espinosa 01/20. Joel Walsh [facility] 01-07-2025 Miscellaneous Notes Spoke w pt and this is scheduled w Dr Espinosa 01/20. Joel Walsh Next new with me or Dr. Lomeli. Kyler Espinosa DO Please review and advise CONSULT TO HEMATOLOGY/ONCOLOGY Status: Needs Scheduling Requested appt date: Authorizing: Vikki Elmore MD in [facility] Referral: [id number] (Authorized) Expires: 12/30/2025 Priority: Routine Diagnosis: Protein C deficiency (HCC) [D68.59] Protein S deficiency (HCC) [D68.59] documented in this encounter [facility] 01-07-2025 Telephone encounter Note Next new with me or Dr. Lomeli. Kyler Espinosa DO [facility] Work Phone: 01-05-2025 Telephone encounter Note Please review and advise CONSULT TO HEMATOLOGY/ONCOLOGY Status: Needs Scheduling Requested appt date: Authorizing: Vikki Elmore MD in [facility] Referral: [id number] (Authorized) Expires: 12/30/2025 Priority: Routine Diagnosis: Protein C deficiency (HCC) [D68.59] Protein S deficiency (HCC) [D68.59] [facility] Work Phone: 12-31-2024 Telephone encounter Note Per Dr. Elmore (post clinic visit) , pt will have labs done, If Magnesium continues to be low will need to set up IV Magnesium at [facility]. Savanah Toro RD, GAL, CNSC, [facility] ; [facility] Work Phone: 12-31-[address] Elmore (post clinic visit) , pt will have labs done, If Magnesium continues to be low will need to set up IV Magnesium at [facility]. Savanah Toro RD, GAL, [facility], [facility] ; documented in this encounter [facility] 12-30-2024 Note HNO ID: [id number] Author: ?, ?, ? Service: ? Author Type: ? Type: Progress Notes Filed: 12/30/2024 15:39 Note Text: What is the reason for your visit today? EST Who is your referring physician? Dr. Elmore Are you having poor oral intake? NO Have you had unintentional weight loss of 15 lbs/7 Kg in the last 3-6 months? NO Bowels: diarrhea or regular Wound: clean AND dry Temperature: No Drains: No [facility] 12-30-2024 History of Present illness Narrative What is the reason for your visit today? EST Who is your referring physician? Dr. Elmore Are you having poor oral intake? NO Have you had unintentional weight loss of 15 lbs/7 Kg in the last 3-6 months? NO Bowels: diarrhea or regular Wound: clean & dry Temperature: No Drains: No Patient was no-show for scheduled visit. 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 Patient has since underwent STEP procedure 07/21/14 resulting in TPN independence; however was unable to maintain adequate electrolytes and nutrition. Underwent second STEP 09/07/16. Current anatomy: 78 cm of jejunum anastomosed to mid-transverse colon, no ICV, + rectum, +anus. She has had issues with SIBO, malabsorption, and continued IV electrolyte replacement. ISSUES & PLAN: 1. 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 Current anatomy includes 78 cm of jejunum and most of the transverse colon through rectum and anus. Patient experiences chronic diarrhea, with 4-6 watery bowel movements per day, due to malabsorption. - Continue high-salt, starchy diet with adequate protein intake (70-80 grams/day). - Maintain current oral rehydration solutions and spaced meals. - Discussed potential use of Atrantil to manage symptoms of malabsorption. 2. Hypokalemia (E87.6) Recent labs indicate slight improvement in potassium levels, last at 1.4-1.5 mEq/L. - Continue Klor-Con, 1 tablet daily. - Ordered lab tests to monitor electrolyte levels. - Consider IV potassium infusions at [facility] if levels remain low. 3. Hypomagnesemia (E83.42) Persistent low magnesium levels, most recent lab showing 1.2 mEq/L. Current regimen of MagTab 3 tablets TID is insufficient. - Continue MagTab 3 tablets TID. Add MG Plus Protein 1 tab TID (she can't afford more than this and it is not covered by insurance. - Discussed Epsom salt foot soaks for transdermal magnesium absorption. - Ordered lab tests to monitor magnesium levels. - If mag levels continue to be low, will arrange for IV magnesium infusions at [facility]. 4. Vitamin B 12 deficiency (E53.8) Chronic deficiency due to short bowel syndrome. - Continue monthly B12 injections. - Renewed prescription for B12 injections and needles, sent to [facility] in [place]. 5. Vitamin D deficiency (E55.9) Chronic deficiency managed with high-dose supplementation. - Continue Vitamin D supplementation, 4 times a week. - Ordered lab tests to monitor Vitamin D levels. 6. 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 Symptoms include gas, bloating, and greasy stools. - Continue Flagyl as needed for symptom management. - Discussed potential use of Atrantil to prevent recurrence. 7. Protein C deficiency (HCC) (D68.59) Protein S deficiency (HCC) (D68.59) Patient has a history of protein C and S deficiencies, leading to a hypercoagulable state and SMA thrombosis. Patient has been off anticoagulation therapy for 5-6 years. - Referred to hematology at [facility] for evaluation and management of hypercoagulable state. 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 Her current anatomy consists of 78 cm of jejunum with most of the transverse colon through rectum and anus intact, but without an ileocecal valve. Her condition is secondary to a hypercoagulable state from protein C and S deficiency, which led to SMA thrombosis and subtotal enterectomy in 08/2013. She underwent STEP procedures in 07/2014 and 08/2016, which allowed her to wean off TPN, but she continues to struggle with maintaining adequate electrolytes and nutrition. She reports 4-6 bowel movements daily, with the first in the morning being more formed and subsequent stools watery. She does not use loperamide or Lomotil, as these caused bloating and discomfort. She notes that high doses of MagTab (3 tablets TID) are cathartic and may contribute to her diarrhea. She has difficulty maintaining serum magnesium levels, which remain around 1.2 mg/dL despite supplementation. She is unable to afford MG Plus Protein due to lack of insurance coverage. She takes potassium chloride 1 tablet daily, and her potassium has improved slightly from 1.2-1.3 to 1.4-1.5 mEq/L. She has received magnesium and potassium infusions in the past at a local infusion center. She experiences recurrent SIBO, with symptoms including increased gas, greasy stools, belching, and a weird taste in her mouth. She recently completed a course of Flagyl for a bacterial infection. She is not currently taking a probiotic. She reports chronic fatigue, with low energy even after a full night s sleep and a need to nap by noon. She also reports lightheadedness and dry skin, which she attributes to nutritional deficiencies. She has a hernia at her incision site that causes discomfort when she is too full. She weighs 145-147 lbs at home, though the clinic scale read 153 lbs today. She denies fluid retention except after prolonged standing. She follows a high-salt, high-starch, high-protein diet, eating chicken and fish when possible. She avoids beef except when well-cooked. She tries to eat 3 meals daily with snacks, but sometimes only manages 1-2 meals due to feeling uncomfortably full and nauseated with higher intake. Snacks include pretzels, chips, popcorn, and protein bars. She eats rice and pasta regularly, but prefers ripe bananas over green ones. She has significant dental issues, with poor dentition and ill-fitting partials that limit her ability to eat. She is unable to get new dentures due to insurance restrictions and requests a letter of medical necessity to support her application for coverage. She is not currently taking anticoagulation, having stopped Lovenox 5-6 years ago when her prescription ran out. She has not been followed by hematology since then. 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 She has a [id number] granddaughter who keeps her active. CURRENT NUTRITION SUPPORT: None Weight history: Home scale ~145 lbs Last Wt 12/30/24 : 69.4 kg (153 lb) 11/09/24 : 69.8 kg (153 lb 14.1 oz) 10/20/24 : 70 kg (154 lb 5.2 oz) 08/14/24 : 70 kg (154 lb 5.2 oz) 07/26/24 : 70.6 kg (155 lb 10.3 oz) 139 lbs CURRENT MEDICATIONS: Current Outpatient Medications Medication Sig Dispense Refill Vitamin E, dl, acetate, (VITAMIN E) 400 unit capsule Take 1 capsule by mouth once daily. 30 capsule 2 cyanocobalamin (VITAMIN B-12) 1,000 mcg/mL Inject 1 mL intramuscularly once every month. Then resume monthly 1 mL injections for [address] [facility] 3 mL 4 L.acidophilus-L.rhamnosus (FLORAJEN WOMEN) 15 billion cell capsule Take 1 capsule by mouth once daily. 30 capsule 11 naproxen (NAPROSYN) 500 mg tablet Take 1 tablet by mouth two times a day with meals. FOR PAIN. TAKE WITH FOOD. 28 tablet 0 LIDOCAINE VISCOUS 2 % solution Take 15 mL by mouth three times a day as needed. 100 mL 0 ergocalciferol 50,000 unit capsule (VITAMIN D2, DRISDOL) Take 1 capsule by mouth one time a week. 12 capsule 3 DEKAS PLUS, FOLIC ACID, 200 mcg-1,000 mcg-10 mg cap Take 1 capsule by mouth once daily 90 capsule 1 potassium chloride ER (KLOR-CON) 20 mEq tablet Take 1 tablet by mouth once daily 30 tablet 2 No current facility-administered medications for this visit. ALLERGIES: ALLERGIES Allergen Reactions Adhesive Rash, Itching Amoxicillin Hives Penicillins Hives PAST MEDICAL/SURGICAL HISTORY, SOCIAL HISTORY, AND FAMILY HISTORY: Reviewed and is unchanged aside from the changes documented in HPI. REVIEW OF SYSTEMS: ROS completed and negative outside of the systems documented in the HPI. INVESTIGATIONS: CTAP : IMPRESSION: Diffuse colonic dilation and dilation of the small bowel at the surgical anastomosis. RESULT: Liver: No mass. Biliary: No bile duct dilation. Spleen: No mass. No splenomegaly. Pancreas: No mass or duct dilation. Adrenals: No mass. Kidneys: No hydronephrosis. GI tract: Post partial colectomy and small bowel resection. Dilated segment of small bowel at the anastomosis, likely secondary to denervation. There is diffuse colonic dilation to the level of the lower rectum. No transition identified. Lymph nodes: No abdominal or pelvic lymphadenopathy. Mesentery/Peritoneum: No ascites or mass. Retroperitoneum: No mass. Vasculature: Mild atherosclerotic changes of the abdominal aorta and its branches. Pelvis: IUD in the uterus. Tampon in the vagina. Bones/Soft Tissues: No significant finding. Lower thorax: Unremarkable. Clinical Trials Nurse (topogram) images: No additional findings. PHYSICAL EXAM: BP 123/81 Pulse 60 Temp 37.7 C (99.9 F) (Temporal) Ht 162.6 cm (5' 4) Wt 69.4 kg (153 lb) LMP 12/23/2024 (Exact Date) BMI 26.26 kg/m General: Appears healthy and well developed HEENT: No icterus. Oropharynx moist. Neck: No lymphadenopathy. Resp: Normal resp effort. Breath sounds clear bilaterally. CVS: PPP. HS normal. No murmur. Abdo: Surgical scars. Non-distended. Soft, non-tender. No masses. Extr: Good muscle bulk and subQ fat reserves. No edema. Skin: No rash. Neuro: Normal gait and station. Psych: Normal memory and affect. Total time spent on this patient encounter today was >45 mins including: preparation for the visit, review and interpretation of records, direct discussion with the patient, physical examination, documentation, and co-ordination of care. Recording using [email or web address] software for draft documentation of the visit was discussed with the patient/authorized corporate sales representative; all questions welcomed and answered. Patient/authorized corporate sales representative agreed to proceed documented in this encounter [facility] 12-30-2024 Note HNO ID: [id number] Author: VIKKI ELMORE MD Service: ? Author Type: Physician Type: Progress Notes Filed: 12/30/2024 15:39 Note Text: Patient was no-show for scheduled visit. 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 Patient has since underwent STEP procedure 07/21/14 resulting in TPN independence; however was unable to maintain adequate electrolytes and nutrition. Underwent second STEP 09/07/16. Current anatomy: 78 cm of jejunum anastomosed to mid-transverse colon, no ICV, + rectum, +anus. She has had issues with SIBO, malabsorption, and continued IV electrolyte replacement. ISSUES AND PLAN: 1. 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 Current anatomy includes 78 cm of jejunum and most of the transverse colon through rectum and anus. Patient experiences chronic diarrhea, with 4-6 watery bowel movements per day, due to malabsorption. - Continue high-salt, starchy diet with adequate protein intake (70-80 grams/day). - Maintain current oral rehydration solutions and spaced meals. - Discussed potential use of Atrantil to manage symptoms of malabsorption. 2. Hypokalemia (E87.6) Recent labs indicate slight improvement in potassium levels, last at 1.4-1.5 mEq/L. - Continue Klor-Con, 1 tablet daily. - Ordered lab tests to monitor electrolyte levels. - Consider IV potassium infusions at [facility] in [place] if levels remain low. 3. Hypomagnesemia (E83.42) Persistent low magnesium levels, most recent lab showing 1.2 mEq/L. Current regimen of MagTab 3 tablets TID is insufficient. - Continue MagTab 3 tablets TID. Add MG Plus Protein 1 tab TID (she can't afford more than this and it is not covered by insurance. - Discussed Epsom salt foot soaks for transdermal magnesium absorption. - Ordered lab tests to monitor magnesium levels. - If mag levels continue to be low, will arrange for IV magnesium infusions at [facility] in [place] [address]. 4. Vitamin B 12 deficiency (E53.8) Chronic deficiency due to short bowel syndrome. - Continue monthly B12 injections. - Renewed prescription for B12 injections and needles, sent to [facility] in [place]. 5. Vitamin D deficiency (E55.9) Chronic deficiency managed with high-dose supplementation. - Continue Vitamin D supplementation, 4 times a week. - Ordered lab tests to monitor Vitamin D levels. 6. 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 Symptoms include gas, bloating, and greasy stools. - Continue Flagyl as needed for symptom management. - Discussed potential use of Atrantil to prevent recurrence. 7. Protein C deficiency (HCC) (D68.59) Protein S deficiency (HCC) (D68.59) Patient has a history of protein C and S deficiencies, leading to a hypercoagulable state and SMA thrombosis. Patient has been off anticoagulation therapy for 5-6 years. - Referred to hematology at [facility] in [place] [address] for evaluation and management of hypercoagulable state. 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 Her current anatomy consists of 78 cm of jejunum with most of the transverse colon through rectum and anus intact, but without an ileocecal valve. Her condition is secondary to a hypercoagulable state from protein C and S deficiency, which led to SMA thrombosis and subtotal enterectomy in 08/2013. She underwent STEP procedures in 07/2014 and 08/2016, which allowed her to wean off TPN, but she continues to struggle with maintaining adequate electrolytes and nutrition. She reports 4-6 bowel movements daily, with the first in the morning being more formed and subsequent stools watery. She does not use loperamide or Lomotil, as these caused bloating and discomfort. She notes that high doses of MagTab (3 tablets TID) are cathartic and may contribute to her diarrhea. She has difficulty maintaining serum magnesium levels, which remain around 1.2 mg/dL despite supplementation (more content not included)... [facility] 12-03-2024 Telephone encounter Note I have reviewed the dosage, timing and amount of medication to be dispensed. I approve this prescription to be reviewed and signed by a Nutrition Support physician. Prescription Disposition: Escript Physician: Dr Elmore Call from patient requesting refill. Requested Prescriptions Pending Prescriptions Disp Refills Vitamin E, dl, acetate, (VITAMIN E) 400 unit capsule 30 capsule 2 Sig: Take 1 capsule by mouth once daily. cyanocobalamin (VITAMIN B-12) 1,000 mcg/mL 3 mL 4 Sig: Inject 1 mL intramuscularly once every month. Then resume monthly 1 mL injections for 2 months. Administer at [facility] [address] [facility] 12-03-2024 Miscellaneous Notes I have reviewed the dosage, timing and amount of medication to be dispensed. I approve this prescription to be reviewed and signed by a Nutrition Support physician. Prescription Disposition: Escript Physician: Dr Elmore Call from patient requesting refill. Requested Prescriptions Pending Prescriptions Disp Refills Vitamin E, dl, acetate, (VITAMIN E) 400 unit capsule 30 capsule 2 Sig: Take 1 capsule by mouth once daily. cyanocobalamin (VITAMIN B-12) 1,000 mcg/mL 3 mL 4 Sig: Inject 1 mL intramuscularly once every month. Then resume monthly 1 mL injections for 2 months. Administer at [facility] [address] documented in this encounter [facility] 11-09-2024 Note HNO ID: [id number] Author: MAYANK ARIZMENDI APRN.DIRECTOR OF GROUP SALES Service: ? Author Type: Nurse Practitioner Type: Progress Notes Filed: 11/09/2024 12:59 Note Text: [facility] Subjective Niurka Zhu is a 44 year old year old who presents to [facility] today with complaint of upper Right tooth pain x 2 years that waxes and wanes. She was told by her insurance company they are unable to allow the tooth to be pulled and further dental work has been denied per Niurka. Denies headaches, fever, sore throat, cough, shortness of breath, chest pains, Nausea, vomiting, changes in bowel or bladder or skin rashes. Taking Tylenol and Ibuprofen without relief. Aside from symptoms as described above, patient has no other complaints at this time. HPI: see above Review of Systems Constitutional: Negative for chills, fatigue and fever. HENT: Positive for dental problem and facial swelling (Right side of face x 24 hours). Negative for congestion, ear pain, postnasal drip, sinus pressure, sore throat, trouble swallowing and voice change. Respiratory: Negative for cough, shortness of breath and wheezing. Cardiovascular: Negative for chest pain, palpitations and leg swelling. Gastrointestinal: Negative for diarrhea, nausea and vomiting. Musculoskeletal: Negative for myalgias and neck pain. Neurological: Negative for headaches. Hematological: Negative for adenopathy. ALLERGIES Allergen Reactions Adhesive Rash, Itching Amoxicillin Hives Penicillins Hives Current Outpatient Medications on File Prior to Visit Medication Sig ergocalciferol 50,000 unit capsule (VITAMIN D2, DRISDOL) Take 1 capsule by mouth one time a week. DEKAS PLUS, FOLIC ACID, 200 mcg-1,000 mcg-10 mg cap Take 1 capsule by mouth once daily potassium chloride ER (KLOR-CON) 20 mEq tablet Take 1 tablet by mouth once daily cyanocobalamin (VITAMIN B-12) 1,000 mcg/mL Inject 1 mL intramuscularly once every month. Then resume monthly 1 mL injections for [address] Admin[address] [facility] Vitamin E, dl, acetate, (VITAMIN E) 400 unit capsule Take 1 capsule by mouth once daily. No current facility-administered medications on file prior to visit. 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 Intestinal Malabsorption (Hcc) Hypomagnesemia Surgery, Elective Moderate Protein Malnutrition (Hcc) Severe Protein-Calorie Malnutrition (Hcc) Protein C Deficiency (Hcc) Protein S Deficiency (Hcc) Hypertension, Essential Vitamin D Deficiency Vitamin B12 Deficiency Diarrhea Hypokalemia Social History Tobacco Use Smoking status: Former Current packs/day: 0.00 Average packs/day: 1.5 packs/day for 13.0 years (19.5 ttl pk-yrs) Types: Cigarettes Start date: 08/16/2000 Quit date: 08/16/2013 Years since quittin.2 Smokeless tobacco: Never Vaping Use Vaping status: current everyday user Substances: Nicotine Substance Use Topics Alcohol use: No Comment: currently does not drink Drug use: Yes Types: Marijuana Objective BP 120/76 Pulse 90 Temp 37.3 ?C (99.1 ?F) Resp 20 Wt 69.8 kg (153 lb 14.1 oz) LMP 10/20/2024 (Exact Date) SpO2 98% BMI 26.41 kg/m? Physical Exam Vitals reviewed. Constitutional: General: She is not in acute distress. Appearance: Normal appearance. She is not ill-appearing or toxic-appearing. HENT: Head: Normocephalic and atraumatic. Right Ear: Tympanic membrane, ear canal and external ear normal. Left Ear: Tympanic membrane, ear canal and external ear normal. Nose: Nose normal. Mouth/Throat: Lips: [place]. Mouth: Mucous membranes are moist. Dentition: Abnormal dentition. Dental tenderness, gingival swelling and dental caries present. No dental abscesses. Tongue: No lesions. Palate: No mass. Pharynx: Oropharynx is clear. Eyes: Extraocular Movements: Extraocular movements intact. Conjunctiva/sclera: Conjunctivae normal. Pupils: Pupils are equal, round, and reactive to light. Cardiovascular: Rate and Rhythm: Normal rate and regular rhythm. Pulses: Normal pulses. Heart sounds: Normal heart sounds. Pulmonary: Effort: Pulmonary effort is normal. Breath sounds: Normal breath sounds. Abdominal: General: Bowel sounds are normal. Palpations: Abdomen is soft. Skin: General: Skin is warm and dry. Capillary Refill: Capillary refill takes less than 2 seconds. Neurological: Mental Status: She is alert and oriented to person, place, and time. ASSESSMENT/PLAN: 1. Dental infection - ICD9: 522.4, ICD10: K04.7 (primary diagnosis) - CEPHALEXIN 500 MG CAPSULE - LIDOCAINE HCL 2 % MUCOSAL SOLUTION 2. Antibiotic-induced yeast infection - ICD9: 112.9, E930.9, ICD10: B37.9, T36.95XA - FLUCONAZOLE 150 MG TABLET - FLORAJEN WOMEN 15 BILLION CELL CAPSULE 3. Chronic dental pain - ICD9: 525.9, 338.29, ICD10: K08.9, G89.29 - NAPROXEN 500 MG TABLET Patient advised (more content not included)... [facility] 11-09-2024 History of Present illness Narrative Images from the original note were not included. [facility] CLINIC NOTE Subjective Niurka Zhu is a 44 year old year old who presents to [facility] today with complaint of upper Right tooth pain x 2 years that waxes and wanes. She was told by her insurance company they are unable to allow the tooth to be pulled and further dental work has been denied per Niurka. Denies headaches, fever, sore throat, cough, shortness of breath, chest pains, Nausea, vomiting, changes in bowel or bladder or skin rashes. Taking Tylenol and Ibuprofen without relief. Aside from symptoms as described above, patient has no other complaints at this time. HPI: see above Review of Systems Constitutional: Negative for chills, fatigue and fever. HENT: Positive for dental problem and facial swelling (Right side of face x 24 hours). Negative for congestion, ear pain, postnasal drip, sinus pressure, sore throat, trouble swallowing and voice change. Respiratory: Negative for cough, shortness of breath and wheezing. Cardiovascular: Negative for chest pain, palpitations and leg swelling. Gastrointestinal: Negative for diarrhea, nausea and vomiting. Musculoskeletal: Negative for myalgias and neck pain. Neurological: Negative for headaches. Hematological: Negative for adenopathy. ALLERGIES Allergen Reactions Adhesive Rash, Itching Amoxicillin Hives Penicillins Hives Current Outpatient Medications on File Prior to Visit Medication Sig ergocalciferol 50,000 unit capsule (VITAMIN D2, DRISDOL) Take 1 capsule by mouth one time a week. DEKAS PLUS, FOLIC ACID, 200 mcg-1,000 mcg-10 mg cap Take 1 capsule by mouth once daily potassium chloride ER (KLOR-CON) 20 mEq tablet Take 1 tablet by mouth once daily cyanocobalamin (VITAMIN B-12) 1,000 mcg/mL Inject 1 mL intramuscularly once every month. Then resume monthly 1 mL injections for 2 months. Administer at [facility] Vitamin E, dl, acetate, (VITAMIN E) 400 unit capsule Take 1 capsule by mouth once daily. No current facility-administered medications on file prior to visit. 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 Intestinal Malabsorption (Hcc) Hypomagnesemia Surgery, Elective Moderate Protein Malnutrition (Hcc) Severe Protein-Calorie Malnutrition (Hcc) Protein C Deficiency (Hcc) Protein S Deficiency (Hcc) Hypertension, Essential Vitamin D Deficiency Vitamin B12 Deficiency Diarrhea Hypokalemia Social History Tobacco Use Smoking status: Former Current packs/day: 0.00 Average packs/day: 1.5 packs/day for 13.0 years (19.5 ttl pk-yrs) Types: Cigarettes Start date: 08/16/2000 Quit date: 08/16/2013 Years since quittin.2 Smokeless tobacco: Never Vaping Use Vaping status: current everyday user Substances: Nicotine Substance Use Topics Alcohol use: No Comment: currently does not drink Drug use: Yes Types: Marijuana Objective BP 120/76 Pulse 90 Temp 37.3 C (99.1 F) Resp 20 Wt 69.8 kg (153 lb 14.1 oz) LMP 10/20/2024 (Exact Date) SpO2 98% BMI 26.41 kg/m Physical Exam Vitals reviewed. Constitutional: General: She is not in acute distress. Appearance: Normal appearance. She is not ill-appearing or toxic-appearing. HENT: Head: Normocephalic and atraumatic. Right Ear: Tympanic membrane, ear canal and external ear normal. Left Ear: Tympanic membrane, ear canal and external ear normal. Nose: Nose normal. Mouth/Throat: Lips: [place]. Mouth: Mucous membranes are moist. Dentition: Abnormal dentition. Dental tenderness, gingival swelling and dental caries present. No dental abscesses. Tongue: No lesions. Palate: No mass. Pharynx: Oropharynx is clear. Eyes: Extraocular Movements: Extraocular movements intact. Conjunctiva/sclera: Conjunctivae normal. Pupils: Pupils are equal, round, and reactive to light. Cardiovascular: Rate and Rhythm: Normal rate and regular rhythm. Pulses: Normal pulses. Heart sounds: Normal heart sounds. Pulmonary: Effort: Pulmonary effort is normal. Breath sounds: Normal breath sounds. Abdominal: General: Bowel sounds are normal. Palpations: Abdomen is soft. Skin: General: Skin is warm and dry. Capillary Refill: Capillary refill takes less than 2 seconds. Neurological: Mental Status: She is alert and oriented to person, place, and time. ASSESSMENT/PLAN: 1. Dental infection - ICD9: 522.4, ICD10: K04.7 (primary diagnosis) - CEPHALEXIN 500 MG CAPSULE - LIDOCAINE HCL 2 % MUCOSAL SOLUTION 2. Antibiotic-induced yeast infection - ICD9: 112.9, E930.9, ICD10: B37.9, T36.95XA - FLUCONAZOLE 150 MG TABLET - FLORAJEN WOMEN 15 BILLION CELL CAPSULE 3. Chronic dental pain - ICD9: 525.9, 338.29, ICD10: K08.9, G89.29 - NAPROXEN 500 MG TABLET Patient advised to drink fluids, get rest and take all meds as prescribed. Patient given educational materials - see instructions. Discussed use, benefit, and side effects of prescribed medications. All questions answered. Patient advised to follow up with PCP in one week, or sooner if symptoms worsen or persist. If symptoms become severe- GO TO ED. Patient verbalized understanding and agreeable with treatment plan. Mayank Arizmendi APRN, CNP 11/09/2024 12:54 PM documented in this encounter [facility] 11-09-2024 Instructions Mayank Arzimendi APRN.AKOSUA - 11/09/2024 12:46 PM [address] [facility] [address] [place] [id number] Emergency Department Diagnosis: Assessment TOOTHACHE: Your exam shows that your toothache is probably due to tooth decay and infection. Poor dental care is the main cause of this problem. Swelling and redness around a painful tooth often means you have a dental abscess. Pain medicine and antibiotics can help reduce symptoms, but you will need to see a dentist within the next few days to have your problem properly treated. Fillings or root canal work may be needed to save your tooth. If the problem is severe, your tooth may need to be pulled. Please return here right away if you have a fever over 101F, can t swallow, or develop severe swelling. documented in this encounter [facility] 10-22-2024 Telephone encounter Note Vitamin A and Copper were low. Vitamin A remains essentially the same as last year, but slightly improved and copper has improved as well, although remains low (will send mychart message to patient) Mag++ already addressed by Dr. Elmore (note PA in process for magnesium). Plan: - Continue DEKAs essential daily - Continue Vitamin D2 50,000 units 3x per week - Continue Copper Gluconate 2 mg 1 capsule daily Next clinic visit is on 12/2024--will need to determine when to repeat blood work GAL Neal RD, CNSC, [facility] ; [facility] Work Phone: 10-22-2024 Miscellaneous Notes Vitamin A and Copper were low. Vitamin A remains essentially the same as last year, but slightly improved and copper has improved as well, although remains low (will send mychart message to patient) Mag++ already addressed by Dr. Elmore (note PA in process for magnesium). Plan: - Continue DEKAs essential daily - Continue Vitamin D2 50,000 units 3x per week - Continue Copper Gluconate 2 mg 1 capsule daily Next clinic visit is on 12/2024--will need to determine when to repeat blood work GAL Neal RD, CNSC, CCTD [facility] ; Patient: NIURKA ZHU ([id number]) Latest Ref Rng 10/09/2024 Vitamin E-alpha 6.0 - 23.0 mg/L 8.1 Vitamin E-gamma 0.3 - 3.2 mg/L 0.8 Vitamin A 0.30 - 1.20 mg/L 0.24 (L) Copper 80 - 155 ug/dL 75 (L) Results so far from 10/09 lab draw reviewed - K+ now wnl, Mg remains low and and down from 1.3 to 1.2. When our office discussed results with pt in July she was transitioned from Mag Tab (9 tabs/d) to MgPlusPro (9 tabs/d) and start oral K+. Vit D increased from 10 to 47 over 3 months, will need to ensure pt did not take DIANN prior to lab draw. Attempted to reach pt to assess for ssx of low Mg, left VM to call office back. Note - our office has had difficulty establishing communication previously. Will either await return call or attempt again when remaining results come in. Holly Burroughs, RD, [facility] Patient: NIURKA ZHU ([id number]) Latest Ref Rng 10/09/2024 Glucose 74 - 99 mg/dL 92 BUN 7 - 21 mg/dL 9 Creatinine 0.58 - 0.96 mg/dL 0.57 (L) Sodium 136 - 144 mmol/L 138 Potassium 3.7 - 5.1 mmol/L 3.8 Chloride 98 - 107 mmol/L 103 CO2 22 - 30 mmol/L 23 Anion Gap 8 - 15 mmol/L 12 Calcium 8.5 - 10.2 mg/dL 9.5 eGFR >=60 mL/min/1.73m 116 Vitamin D 25 Hydroxy 31.0 - 80.0 ng/mL 46.6 Magnesium 1.7 - 2.3 mg/dL 1.2 (L) In process: Vit E, A, Cu documented in this encounter [facility] 10-20-2024 Note HNO ID: [id number] Author: ISAIAS ROE PA Service: ? Author Type: Physician Sweet Potato Disintegrator Type: Progress Notes Filed: 10/20/2024 19:43 Note Text: [facility] Subjective Niurka Zhu is a 44 year old female. Patient presents with: Derm Problem: Possible poison Shannan, x 2 days HPI Recurrent Rash: - Rash on the left leg, initially appearing last summer. - Recurrent episodes, with the most recent onset 2-3 days ago. - Describes the rash as both painful and pruritic. - Denies recent outdoor exposure or known triggers. - Has applied calamine lotion for symptom relief. Review of Systems Skin: (+) painful left leg rash, (+) pruritus left leg Objective BP 108/74 Pulse 68 Temp 36.6 ?C (97.9 ?F) Resp 18 Wt 70 kg (154 lb 5.2 oz) LMP 10/20/2024 (Exact Date) SpO2 98% BMI 26.49 kg/m? Physical Exam Vitals and nursing note reviewed. Constitutional: General: She is not in acute distress. Appearance: Normal appearance. She is not toxic-appearing. Skin: Findings: Rash present. Comments: Erythematous raised rash noted on left thigh and left lower leg. No drainage, fluctuance or abscess. Some scarring noted around the area from prior rash. No lymphatic streaking Neurological: Mental Status: She is alert. General: No acute distress. Skin: Erythematous patches on left leg. {1. Rash (R21) - Recurrent pruritic and painful rash on the left leg, initially appearing last summer, with multiple episodes of resolution and recurrence. - Exam reveals multiple areas of irritation on the left leg. - Prescribed topical steroid cream to be applied BID for 1-2 weeks. - Referred to [facility] for further evaluation due to recurrent nature of the rash. - Prescription sent to [facility] pharmacy. Recording using [email or web address] software for draft documentation of the visit was discussed with the patient/authorized corporate sales representative; all questions welcomed and answered. Patient/authorized corporate sales representative agreed to proceed History and Record Review External record(s) reviewed: prior outpatient record. Differential Diagnoses - Rash is more likely for the following reason(s): suggested by HANDP - Cellulitis is less likely for the following reason(s): HANDP not suggestive - Shingles is less likely for the following reason(s): HANDP not suggestive Disposition The patient was discharged. Procedures [facility] 10-20-2024 History of Present illness Narrative Images from the original note were not included. [facility] Subjective Niurka Zhu is a 44 year old female. Patient presents with: Derm Problem: Possible poison Shannan, x 2 days HPI Recurrent Rash: - Rash on the left leg, initially appearing last summer. - Recurrent episodes, with the most recent onset 2-3 days ago. - Describes the rash as both painful and pruritic. - Denies recent outdoor exposure or known triggers. - Has applied calamine lotion for symptom relief. Review of Systems Skin: (+) painful left leg rash, (+) pruritus left leg Objective BP 108/74 Pulse 68 Temp 36.6 C (97.9 F) Resp 18 Wt 70 kg (154 lb 5.2 oz) LMP 10/20/2024 (Exact Date) SpO2 98% BMI 26.49 kg/m Physical Exam Vitals and nursing note reviewed. Constitutional: General: She is not in acute distress. Appearance: Normal appearance. She is not toxic-appearing. Skin: Findings: Rash present. Comments: Erythematous raised rash noted on left thigh and left lower leg. No drainage, fluctuance or abscess. Some scarring noted around the area from prior rash. No lymphatic streaking Neurological: Mental Status: She is alert. General: No acute distress. Skin: Erythematous patches on left leg. {1. Rash (R21) - Recurrent pruritic and painful rash on the left leg, initially appearing last summer, with multiple episodes of resolution and recurrence. - Exam reveals multiple areas of irritation on the left leg. - Prescribed topical steroid cream to be applied BID for 1-2 weeks. - Referred to [facility] for further evaluation due to recurrent nature of the rash. - Prescription sent to [facility] pharmacy. Recording using [email or web address] software for draft documentation of the visit was discussed with the patient/authorized corporate sales representative; all questions welcomed and answered. Patient/authorized corporate sales representative agreed to proceed History and Record Review External record(s) reviewed: prior outpatient record. Differential Diagnoses - Rash is more likely for the following reason(s): suggested by H&P - Cellulitis is less likely for the following reason(s): H&P not suggestive - Shingles is less likely for the following reason(s): H&P not suggestive Disposition The patient was discharged. Procedures documented in this encounter [facility] 10-19-2024 Telephone encounter Note Received request via CMM for PA on magnesium lactate. Will fwd to EMIR RN. Linda Saab RD [facility] 10-19-2024 Miscellaneous Notes Received request via CMM for PA on magnesium lactate. Will fwd to EMIR LANE. Linda Saab RD documented in this encounter [facility] 10-15-2024 Telephone encounter Note Patient: NIURKA ZHU ([id number]) Latest Ref Rng 10/09/2024 Vitamin E-alpha 6.0 - 23.0 mg/L 8.1 Vitamin E-gamma 0.3 - 3.2 mg/L 0.8 Vitamin A 0.30 - 1.20 mg/L 0.24 (L) Copper 80 - 155 ug/dL 75 (L) [facility] 10-13-2024 Telephone encounter Note Results so far from 10/09 lab draw reviewed - K+ now wnl, Mg remains low and and down from 1.3 to 1.2. When our office discussed results with pt in July she was transitioned from Mag Tab (9 tabs/d) to MgPlusPro (9 tabs/d) and start oral K+. Vit D increased from 10 to 47 over 3 months, will need to ensure pt did not take DIANN prior to lab draw. Attempted to reach pt to assess for ssx of low Mg, left VM to call office back. Note - our office has had difficulty establishing communication previously. Will either await return call or attempt again when remaining results come in. Holly Burroughs, RD, CNSC [facility] 10-13-2024 Telephone encounter Note Patient: NIURKA ZHU ([id number]) Latest Ref Rng 10/09/2024 Glucose 74 - 99 mg/dL 92 BUN 7 - 21 mg/dL 9 Creatinine 0.58 - 0.96 mg/dL 0.57 (L) Sodium 136 - 144 mmol/L 138 Potassium 3.7 - 5.1 mmol/L 3.8 Chloride 98 - 107 mmol/L 103 CO2 22 - 30 mmol/L 23 Anion Gap 8 - 15 mmol/L 12 Calcium 8.5 - 10.2 mg/dL 9.5 eGFR >=60 mL/min/1.73m 116 Vitamin D 25 Hydroxy 31.0 - 80.0 ng/mL 46.6 Magnesium 1.7 - 2.3 mg/dL 1.2 (L) In process: Vit E, A, Cu [facility] 09-15-2024 Note Patient Outreach (FA MPWS) NIURKA ZHU ([id number]) 1980 F Date Time Provider Department 09/15/24 STARR MOTLEY During your visit today, we recorded the following information about you: Allergies As of Date: 09/15/2024 Noted Allergy Reaction ADHESIVE 09/07/2016 2 - Rash 9 - Itching AMOXICILLIN 09/26/2011 4 - Hives PENICILLINS 09/26/2011 4 - Hives Date Reviewed: 08/14/2024 Reviewed by: Kota Acuña APRN.DIRECTOR OF GROUP SALES - Fully Assessed Visit Diagnosis:Encounter for screening mammogram for breast cancer [Z12.31] Order(s):DAISHA SCREENING W PIERO [[id number]] Order #: [id number] FUTURE Prescriptions as of 10/16/2024 - ergocalciferol 50,000 unit capsule (VITAMIN D2, DRISDOL) Take 1 capsule by mouth one time a week. - DEKAS PLUS, FOLIC ACID, 200 mcg-1,000 mcg-10 mg cap Take 1 capsule by mouth once daily - potassium chloride ER (KLOR-CON) 20 mEq tablet Take 1 tablet by mouth once daily - magnesium oxide-magnesium amino acid chelate (CT-EFCS-QBPZPJJ) 133 mg tablet Take 3 tablets by mouth three times a day. - metroNIDAZOLE (FLAGYL) 250 mg tablet Take 1 tablet by mouth three times a day. Take for one week every 1-2 months for SIBO - MAGTAB 84 mg TbER Take 2 tablets by mouth three times a day. - rughck-vanktlqm-xocavfv (ZENPEP) 25,000-79,000- 105,000 unit delayed release capsule Take 2 with meals and 1 with snacks - cyanocobalamin (VITAMIN B-12) 1,000 mcg/mL Inject 1 mL intramuscularly once every month. Then resume monthly 1 mL injections for 2 months. Administer at [facility] - Vitamin E, dl, acetate, (VITAMIN E) 400 unit capsule Take 1 capsule by mouth once daily. Meds Comments as of 11/21/2017: Probiotic daily, Vitamin E 400 unit daily Problem List As Of Date 09/15/2024 Noted Resolved Abdominal pain, other specified site [R10.9] 01/01/2014 Myalgia and myositis [NEE4521] 01/01/2014 Chest pain [R07.9] 01/11/2014 10/23/2016 ASA CLASS II [1001] 07/20/2014 Short bowel syndrome [K90.829] 01/11/2015 Intestinal malabsorption [K90.9] 01/11/2015 Hypomagnesemia [E83.42] 03/02/2016 SBO (small bowel obstruction) ([facility]) [K56.609] 05/25/2016 10/23/2016 Surgery, elective [Z41.9] 08/29/2016 Moderate protein malnutrition (HCC) [E44.0] 09/01/2016 Severe protein-calorie malnutrition (HCC) [E43] 09/09/2016 Protein C deficiency (HCC) [D68.59] 06/12/2017 Protein S deficiency (HCC) [D68.59] 06/12/2017 Hypertension, essential [I10] 01/13/2018 Vitamin D deficiency [E55.9] 10/10/2018 Vitamin B12 deficiency [E53.8] 10/10/2018 Diarrhea [R19.7] 10/10/2018 Hypokalemia [E87.6] 10/10/2018 Encounter Status:Closed by [employer], PRODUSER on 10/16/24 [facility] 08-14-2024 Note HNO ID: [id number] Author: KOTA ACUÑA APRN.DIRECTOR OF GROUP SALES Service: ? Author Type: Nurse Practitioner Type: Progress Notes Filed: 08/14/2024 12:19 Note Text: Subjective HPI Nontoxic-appearing 44-year-old female presents urgent care chief complaint possible dental infection. Duration of symptoms 3 days. Associated symptoms redness swelling upper gum. History of dental infections is similar. OTC medications none. No difficulty swallowing his secretions decreased range of motion neck trismus elevation of floor of mouth. Additionally, complaint of right shoulder and neck pain. States she threw a piece of firewood and felt something pull in her neck. Has had pain since. Has been using Tylenol ibuprofen this is helped some. No traumatic injuries. No weakness. No numbness or tingling. No headache visual issues. Past medical history prescription medications allergies reviewed. No fevers .Patient presents with: Dental Problem: Front top mouth pain and swelling x 3 days Pain: R shoulder and neck pain, stiffness and stabbing pain x 2 days PAST MEDICAL HISTORY Diagnosis Date Back pain Chest pain 01/11/2014 Depression DVT (deep venous thrombosis) ([facility]) July 2013 Hypertension, essential 01/13/2018 Low blood magnesium 03/02/2016 Protein C deficiency (HCC) Protein S deficiency (HCC) S/P cholecystectomy SBO (small bowel obstruction) ([facility]) 05/25/2016 Short bowel syndrome PAST SURGICAL HISTORY Procedure Laterality Date ; REMOVAL OF SMALL INTESTINE 09/15/13 11 in. small intestine remain LAP PARTIAL COLECTOMY W/ANASTOMOSIS 09/15/13 REMOVAL GALLBLADDER 2003 ALLERGIES Adhesive, Amoxicillin, and Penicillins MEDICATIONS potassium chloride ER (KLOR-CON) 20 mEq tablet Take 1 tablet by mouth once daily. metroNIDAZOLE (FLAGYL) 250 mg tablet Take 1 tablet by mouth three times a day. Take for one week every 1-2 months for SIBO MAGTAB 84 mg TbER Take 2 tablets by mouth three times a day. multivit with min #[id number] (DEKAS PLUS, FOLIC ACID,) 200 mcg-1,000 mcg-10 mg cap Take 1 capsule by mouth once daily. dlrcjq-itubawvk-kgktrzu (ZENPEP) 25,000-79,000- 105,000 unit delayed release capsule Take 2 with meals and 1 with snacks cyanocobalamin (VITAMIN B-12) 1,000 mcg/mL Inject 1 mL intramuscularly once every month. Then resume monthly 1 mL injections for 2 months. Administer at [facility] Vitamin E, dl, acetate, (VITAMIN E) 400 unit capsule Take 1 capsule by mouth once daily. ergocalciferol 50,000 unit capsule (VITAMIN D2, DRISDOL) Take 1 capsule by mouth three times a week. cyanocobalamin (VITAMIN B-12) 1,000 mcg/mL Inject 1 mL intramuscularly one time a week for 4 doses. Once completed, resume once monthly injections. Syringe with Needle, Disp, 3 mL 25 gauge x 1 1 Syringe one time a week. One syringe as directed for Vitamin B12 injection as ordered. magnesium oxide-magnesium amino acid chelate (AM-ZGBG-KEGJJZK) 133 mg tablet Take 3 tablets by mouth three times a day. magnesium lactate ER (MAGTAB) 84 mg TbER Take 2 tablets by mouth three times a day. (Patient not taking: Reported on 08/14/2024) ergocalciferol 50,000 unit capsule (VITAMIN D2, DRISDOL) Take 1 capsule by mouth three times a week. (Patient not taking: Reported on 08/14/2024) copper citrate 2 mg capsule Take 1 capsule by mouth once daily. (Patient not taking: Reported on 08/14/2024) naproxen (NAPROSYN) 500 mg tablet Take 1 tablet by mouth two times a day as needed (for pain/inflammation). Take with food. (Patient not taking: Reported on 07/01/2024) cyanocobalamin 1,000 mcg/mL Inject 1 mL intramuscularly once every month. (Patient not taking: Reported on 07/01/2024) iron polysaccharide complex (FERREX 150) 150 mg iron capsule Take 1 capsule by mouth once daily. (Patient not taking: Reported on 08/14/2024) predniSONE (DELTASONE) 20 mg tablet 1 tablet 3 times daily for 3 days then 1 tablet twice daily for 2 days then 1 tablet daily for 2 days then half a tablet p.o. daily for 1 day (Patient not taking: Reported on 07/01/2024) loperamide (IMODIUM A-D) 2 mg cap(s) Take 1 capsule by mouth before meals and at bedtime. (Patient not taking: Reported on 08/14/2024) pyridoxine, vitamin B6, (VITAMIN B6) 50 mg tablet Take 2 tablets by mouth once daily. (Patient not taking: Reported on 08/14/2024) FAMILY HISTORY Problem Relation Age of Onset Hypertension Mother Heart Mother Psychiatry Father bi-polar Diabetes Maternal Grandmother Breast Cancer Maternal Aunt Social History Tobacco Use Smoking status: Former Current packs/day: 0.00 Average packs/day: 1.5 packs/day for 13.0 years (19.5 ttl pk-yrs) Types: Cigarettes Start date: 08/16/2000 Quit date: 08/16/2013 Years since quittin.0 Smokeless tobacco: Never Vaping Use Vaping status: current everyday user Substances: Nicotine Substance Use Topics Alcohol use: No Comment: currently does not drink Drug use: Yes Types: Marijuan (more content not included)... [facility] 08-14-2024 History of Present illness Narrative Images from the original note were not included. Subjective HPI Nontoxic-appearing 44-year-old female presents urgent care chief complaint possible dental infection. Duration of symptoms 3 days. Associated symptoms redness swelling upper gum. History of dental infections is similar. OTC medications none. No difficulty swallowing his secretions decreased range of motion neck trismus elevation of floor of mouth. Additionally, complaint of right shoulder and neck pain. States she threw a piece of firewood and felt something pull in her neck. Has had pain since. Has been using Tylenol ibuprofen this is helped some. No traumatic injuries. No weakness. No numbness or tingling. No headache visual issues. Past medical history prescription medications allergies reviewed. No fevers .Patient presents with: Dental Problem: Front top mouth pain and swelling x 3 days Pain: R shoulder and neck pain, stiffness and stabbing pain x 2 days PAST MEDICAL HISTORY Diagnosis Date Back pain Chest pain 01/11/2014 Depression DVT (deep venous thrombosis) ([facility]) July 2013 Hypertension, essential 01/13/2018 Low blood magnesium 03/02/2016 Protein C deficiency ([facility]) Protein S deficiency ([facility]) S/P cholecystectomy SBO (small bowel obstruction) ([facility]) 05/25/2016 Short bowel syndrome PAST SURGICAL HISTORY Procedure Laterality Date ; REMOVAL OF SMALL INTESTINE 09/15/13 11 in. small intestine remain LAP PARTIAL COLECTOMY W/ANASTOMOSIS 09/15/13 REMOVAL GALLBLADDER 2003 ALLERGIES Adhesive, Amoxicillin, and Penicillins MEDICATIONS potassium chloride ER (KLOR-CON) 20 mEq tablet Take 1 tablet by mouth once daily. metroNIDAZOLE (FLAGYL) 250 mg tablet Take 1 tablet by mouth three times a day. Take for one week every 1-2 months for SIBO MAGTAB 84 mg TbER Take 2 tablets by mouth three times a day. multivit with min #[id number] (DEKAS PLUS, FOLIC ACID,) 200 mcg-1,000 mcg-10 mg cap Take 1 capsule by mouth once daily. cvrsgd-plrvyvfg-jigylsy (ZENPEP) 25,000-79,000- 105,000 unit delayed release capsule Take 2 with meals and 1 with snacks cyanocobalamin (VITAMIN B-12) 1,000 mcg/mL Inject 1 mL intramuscularly once every month. Then resume monthly 1 mL injections for [address] [facility] Vitamin E, dl, acetate, (VITAMIN E) 400 unit capsule Take 1 capsule by mouth once daily. ergocalciferol 50,000 unit capsule (VITAMIN D2, DRISDOL) Take 1 capsule by mouth three times a week. cyanocobalamin (VITAMIN B-12) 1,000 mcg/mL Inject 1 mL intramuscularly one time a week for 4 doses. Once completed, resume once monthly injections. Syringe with Needle, Disp, 3 mL 25 gauge x 1 1 Syringe one time a week. One syringe as directed for Vitamin B12 injection as ordered. magnesium oxide-magnesium amino acid chelate (AO-FHIR-OQIIHLM) 133 mg tablet Take 3 tablets by mouth three times a day. magnesium lactate ER (MAGTAB) 84 mg TbER Take 2 tablets by mouth three times a day. (Patient not taking: Reported on 08/14/2024) ergocalciferol 50,000 unit capsule (VITAMIN D2, DRISDOL) Take 1 capsule by mouth three times a week. (Patient not taking: Reported on 08/14/2024) copper citrate 2 mg capsule Take 1 capsule by mouth once daily. (Patient not taking: Reported on 08/14/2024) naproxen (NAPROSYN) 500 mg tablet Take 1 tablet by mouth two times a day as needed (for pain/inflammation). Take with food. (Patient not taking: Reported on 07/01/2024) cyanocobalamin 1,000 mcg/mL Inject 1 mL intramuscularly once every month. (Patient not taking: Reported on 07/01/2024) iron polysaccharide complex (FERREX 150) 150 mg iron capsule Take 1 capsule by mouth once daily. (Patient not taking: Reported on 08/14/2024) predniSONE (DELTASONE) 20 mg tablet 1 tablet 3 times daily for 3 days then 1 tablet twice daily for 2 days then 1 tablet daily for 2 days then half a tablet p.o. daily for 1 day (Patient not taking: Reported on 07/01/2024) loperamide (IMODIUM A-D) 2 mg cap(s) Take 1 capsule by mouth before meals and at bedtime. (Patient not taking: Reported on 08/14/2024) pyridoxine, vitamin B6, (VITAMIN B6) 50 mg tablet Take 2 tablets by mouth once daily. (Patient not taking: Reported on 08/14/2024) FAMILY HISTORY Problem Relation Age of Onset Hypertension Mother Heart Mother Psychiatry Father bi-polar Diabetes Maternal Grandmother Breast Cancer Maternal Aunt Social History Tobacco Use Smoking status: Former Current packs/day: 0.00 Average packs/day: 1.5 packs/day for 13.0 years (19.5 ttl pk-yrs) Types: Cigarettes Start date: 08/16/2000 Quit date: 08/16/2013 Years since quittin.0 Smokeless tobacco: Never Vaping Use Vaping status: current everyday user Substances: Nicotine Substance Use Topics Alcohol use: No Comment: currently does not drink Drug use: Yes Types: Marijuana BP 156/91 Pulse 68 Temp 36.6 C (97.8 F) Resp 18 Wt 70 kg (154 lb 5.2 oz) LMP 07/30/2024 (Exact Date) SpO2 100% BMI 26.49 kg/m Review of Systems Constitutional: Negative for chills, fever and malaise/fatigue. HENT: Negative for congestion, ear discharge, ear pain, sinus pain and sore throat. Eyes: Negative for blurred vision, pain, discharge and redness. Respiratory: Negative for cough, hemoptysis, sputum production, shortness of breath, wheezing and stridor. Cardiovascular: Negative for chest pain. Gastrointestinal: Negative for abdominal pain, diarrhea, nausea and vomiting. Musculoskeletal: Positive for back pain. Negative for falls, joint pain, myalgias and neck pain. Skin: Negative for itching and rash. Neurological: Negative for dizziness and headaches. Objective Physical Exam Constitutional: General: She is not in acute distress. Appearance: She is not diaphoretic. HENT: Head: Normocephalic. Jaw: No trismus, tenderness, swelling or pain on movement. Mouth/Throat: Mouth: Mucous membranes are moist. Pharynx: Oropharynx is clear. Uvula midline. No pharyngeal swelling, oropharyngeal exudate, posterior oropharyngeal erythema or uvula swelling. Comments: Mild swelling noted highlighted area. No drainage. No facial erythema edema noted. No adenopathy. No trismus. No decreased range of motion of neck Eyes: Conjunctiva/sclera: Conjunctivae normal. Pupils: Pupils are equal, round, and reactive to light. Neck: Comments: Pain with palpation over trapezius muscle. Pain is reproducible. No rashes. No spinal tenderness. Cardiovascular: Rate and Rhythm: Normal rate and regular rhythm. Heart sounds: Normal heart sounds. Pulmonary: Effort: Pulmonary effort is normal. No tachypnea, accessory muscle usage or respiratory distress. Breath sounds: Normal breath sounds. No stridor. No wheezing, rhonchi or rales. Abdominal: General: There is no distension. Palpations: Abdomen is soft. Tenderness: There is no abdominal tenderness. There is no guarding or rebound. Musculoskeletal: Cervical back: Normal range of motion and neck supple. No edema, erythema, rigidity or tenderness. Pain with movement present. Normal range of motion. Lymphadenopathy: Cervical: No cervical adenopathy. Skin: General: Skin is warm and dry. Neurological: Mental Status: She is alert and oriented to person, place, and time. ASSESSMENT/PLAN: 1. Neck pain - ICD9: 723.1, ICD10: M54.2 (primary diagnosis) 2. Dental infection - ICD9: 522.4, ICD10: K04.7 Diagnosed with neck pain. Treated with muscle strain. Flexeril prescribed. Risk and benefits of medication. Additionally diagnosed with dental infection. Placed on Keflex no evidence of deep space infection. Patient was educated on supportive therapies. Patient [...] of care. This note was generated using Magick.nu software. It may contain errors in wording, punctuation, or spelling. Kota Acuña APRN.DIRECTOR OF GROUP SALES documented in this encounter [facility] 08-06-2024 Telephone encounter Note I have reviewed the dosage, timing and amount of medication to be dispensed. I approve this prescription to be reviewed and signed by a Nutrition Support physician. Physician: Dr. Elmore Changing magnesium supplement to high dose, starting K+ and new vit B12 to replace script (not filled d/t need for prior auth). Please E-Scribe Last OV: 07/01/24 Future OV: 12/30/24 Requested Prescriptions Pending Prescriptions Disp Refills cyanocobalamin (VITAMIN B-12) 1,000 mcg/mL 4 mL 0 Sig: Inject 1 mL intramuscularly one time a week for 4 doses. Once completed, resume once monthly injections. Syringe with Needle, Disp, 3 mL 25 gauge x 1 4 Each 0 Si Syringe one time a week. One syringe as directed for Vitamin B12 injection as ordered. magnesium oxide-magnesium amino acid chelate (MR-PNHS-[id number]) 133 mg tablet 270 tablet 5 Sig: Take 3 tablets by mouth three times a day. potassium chloride ER (KLOR-CON) 20 mEq tablet 30 tablet 2 Sig: Take 1 tablet by mouth once daily. Mara Prather RD [facility] 08-06-2024 Miscellaneous Notes I have reviewed the dosage, timing and amount of medication to be dispensed. I approve this prescription to be reviewed and signed by a Nutrition Support physician. Physician: Dr. Elmore Changing magnesium supplement to high dose, starting K+ and new vit B12 to replace script (not filled d/t need for prior auth). Please E-Scribe Last OV: 07/01/24 Future OV: 12/30/24 Requested Prescriptions Pending Prescriptions Disp Refills cyanocobalamin (VITAMIN B-12) 1,000 mcg/mL 4 mL 0 Sig: Inject 1 mL intramuscularly one time a week for 4 doses. Once completed, resume once monthly injections. Syringe with Needle, Disp, 3 mL 25 gauge x 1 4 Each 0 Si Syringe one time a week. One syringe as directed for Vitamin B12 injection as ordered. magnesium oxide-magnesium amino acid chelate (HD-TZTG-ZBCHGTS) 133 mg tablet 270 tablet 5 Sig: Take 3 tablets by mouth three times a day. potassium chloride ER (KLOR-CON) 20 mEq tablet 30 tablet 2 Sig: Take 1 tablet by mouth once daily. Mara Prather RD documented in this encounter [facility] 08-06-2024 Telephone encounter Note Discussed lab results and recs with patient. She reports consistently taking DIANN and Magtab since starting after recent 06/30/24 office visit. She is experiencing muscle cramps and fatigue but this has actually improved recently. She is willing to change from MagTab to MagPlusProtein, start potassium supplements and repeat labs 1-2 weeks after starting supplements. Vitamin E slightly improved since patient consistently taking DIANN x1 month, will repeat lab in 3 months and monitor need for increased supplementation. Patient reports increased stooling with SIBO symptoms similar to previous episodes (increased gas, greasy and foul smelling stools) since taking antibiotic (Macrobid) for UTI. She finished abx over the weekend. Patient reports good success with flagyl previously (last prescribed 07/01/24). Encouraged increased ORS intake to prevent dehydration and patient verbalized understanding. Will discuss with Dr. Elmore. Patient also reports not yet starting vitamin B12 boost regimen because a prior auth is required. Prescription generated 07/07/24 now , will generate new script and request NST RN assistance with prior auth. Patient also requested assistance with disability paperwork. Will forward request to Dr. Elmore and NST RN, but also encouraged patient to discuss with PCP. Recommendations: - Push ORS intake (Drip Drop) - Continue DIANN Plus (contains Vitamin E) - Stop MagTab (9 tabs/d) - Start MgPlusProtein 3 tabs TID after meals (9 tabs/d). Refill generated and ordering info sent via Cantimer - Start Potassium 20 mEq daily. Refill generated. - Start Booster B12 1000 mcg IM injections once weekly x4 weeks, then resume once monthly injections. Refill generated and Prior auth needed. - Recheck BMP and Mg 1-2 weeks after starting electrolytes. Will add f/u vit E due 10/04 (Cu, vit D and A due at same time) Ordered in [employer]. Mara Prather RD, LD, [facility] 08-06-2024 Miscellaneous Notes Discussed lab results and recs with patient. She reports consistently taking DIANN and Magtab since starting after recent 06/30/24 office visit. She is experiencing muscle cramps and fatigue but this has actually improved recently. She is willing to change from MagTab to MagPlusProtein, start potassium supplements and repeat labs 1-2 weeks after starting supplements. Vitamin E slightly improved since patient consistently taking DIANN x1 month, will repeat lab in 3 months and monitor need for increased supplementation. Patient reports increased stooling with SIBO symptoms similar to previous episodes (increased gas, greasy and foul smelling stools) since taking antibiotic (Macrobid) for UTI. She finished abx over the weekend. Patient reports good success with flagyl previously (last prescribed 07/01/24). Encouraged increased ORS intake to prevent dehydration and patient verbalized understanding. Will discuss with Dr. Elmore. Patient also reports not yet starting vitamin B12 boost regimen because a prior auth is required. Prescription generated 07/07/24 now , will generate new script and request NST RN assistance with prior auth. Patient also requested assistance with disability paperwork. Will forward request to Dr. Elmore and NST RN, but also encouraged patient to discuss with PCP. Recommendations: - Push ORS intake (Drip Drop) - Continue DIANN Plus (contains Vitamin E) - Stop MagTab (9 tabs/d) - Start MgPlusProtein 3 tabs TID after meals (9 tabs/d). Refill generated and ordering info sent via [employer]imer - Start Potassium 20 mEq daily. Refill generated. - Start Booster B12 1000 mcg IM injections once weekly x4 weeks, then resume once monthly injections. Refill generated and Prior auth needed. - Recheck BMP and Mg 1-2 weeks after starting electrolytes. Will add f/u vit E due 10/04 (Cu, vit D and A due at same time) Ordered in [facility]. Mara Prather RD, LD, [facility]) Return call attempted for f/up on lab results. Left VM for patient asking she call the office to review results and recommendations as noted below: Previous encounter, need to discuss mag and potassium - Confirm if taking DEKAs or Forvia for additional Vitamin E - Confirm pt is taking 9 tabs of Mag Tab. If so determine if pt willing to change to Mg Plus Protein supplement as this contains more mEq per tablet. - Upon return call: Start 20 mEq K+ daily - Would Recheck BMP, Mg in 2 weeks. Orders not written yet. Jing Shahid RD Attempted to return call. Left message to call office. Previous encounter, need to discuss mag and potassium - Confirm if taking DEKAs or Forvia for additional Vitamin E - Confirm pt is taking 9 tabs of Mag Tab. If so determine if pt willing to change to Mg Plus Protein supplement as this contains more mEq per tablet. - Upon return call: Start 20 mEq K+ daily - Would Recheck BMP, Mg in 2 weeks. Orders not written yet. Comfort Eller RD Vm-Returning a call to [facility] for lab results. [phone] documented in this encounter [facility] 08-04-2024 Telephone encounter Note Return call attempted for f/up on lab results. Left VM for patient asking she call the office to review results and recommendations as noted below: Previous encounter, need to discuss mag and potassium - Confirm if taking DEKAs or Forvia for additional Vitamin E - Confirm pt is taking 9 tabs of Mag Tab. If so determine if pt willing to change to Mg Plus Protein supplement as this contains more mEq per tablet. - Upon return call: Start 20 mEq K+ daily - Would Recheck BMP, Mg in 2 weeks. Orders not written yet. Jing Shahid RD [facility] 07-30-2024 Telephone encounter Note Attempted to return call. Left message to call office. Previous encounter, need to discuss mag and potassium - Confirm if taking DEKAs or Forvia for additional Vitamin E - Confirm pt is taking 9 tabs of Mag Tab. If so determine if pt willing to change to Mg Plus Protein supplement as this contains more mEq per tablet. - Upon return call: Start 20 mEq K+ daily - Would Recheck BMP, Mg in 2 weeks. Orders not written yet. Comfort Eller RD [facility] Work Phone: 07-29-2024 Telephone encounter Note Vm-Returning a call to [facility] for lab results. [phone] [facility] 07-28-2024 Telephone encounter Note Vitamin E resulted low and decreased from last draw. Will need to confirm if she started DEKAs. Call to patient (attempt x2). Will send my chart message in martínez of phone conversation. Recs: - Confirm if taking DEKAs or Forvia for additional Vitamin E - Confirm pt is taking 9 tabs of Mag Tab. If so determine if pt willing to change to Mg Plus Protein supplement as this contains more mEq per tablet. - Upon return call: Start 20 mEq K+ daily - Would Recheck BMP, Mg in 2 weeks. Orders not written yet. Linda Saab RD [facility] 07-28-2024 Miscellaneous Notes Vitamin E resulted low and decreased from last draw. Will need to confirm if she started DEKAs. Call to patient (attempt x2). Will send my chart message in martínez of phone conversation. Recs: - Confirm if taking DEKAs or Forvia for additional Vitamin E - Confirm pt is taking 9 tabs of Mag Tab. If so determine if pt willing to change to Mg Plus Protein supplement as this contains more mEq per tablet. - Upon return call: Start 20 mEq K+ daily - Would Recheck BMP, Mg in 2 weeks. Orders not written yet. Linda Saab RD Patient: NIURKA ZHU ([id number]) 07/21/2024 Vitamin E-alpha 3.0 Vitamin E-gamma 0.6 Mg++ unchanged since last labs. K+ slightly low and was low on last labs as well. Awaiting Vitamin E Called pt to review Mg and K+ levels. No answer and VM left. Await return of call. Recommendations: - Confirm pt is taking 9 tabs of Mag Tab. If so determine if pt willing to change to Mg Plus Protein supplement as this contains more mEq per tablet. - Start 20 mEq K+ daily - Recheck BMP, Mg in [address] Patient: NIURKA ZHU ([id number]) Latest Ref Rng 07/21/2024 Glucose 74 - 99 mg/dL 99 BUN 7 - 21 mg/dL 7 Creatinine 0.58 - 0.96 mg/dL 0.54 (L) Sodium 136 - 144 mmol/L 140 Potassium 3.7 - 5.1 mmol/L 3.5 (L) Chloride 98 - 107 mmol/L 106 CO2 22 - 30 mmol/L 26 Anion Gap 8 - 15 mmol/L 8 Calcium 8.5 - 10.2 mg/dL 9.1 eGFR >=60 mL/min/1.73m 117 Magnesium 1.7 - 2.3 mg/dL 1.3 (L) Pending: Vit E documented in this encounter [facility] 07-28-2024 Telephone encounter Note Patient called and notified of positive urine culture. She was given a prescription for Macrobid. She will follow-up with PCP if symptoms not improving. [facility] 07-28-2024 Miscellaneous Notes Patient called and notified of positive urine culture. She was given a prescription for Macrobid. She will follow-up with PCP if symptoms not improving. documented in this encounter [facility] 07-27-2024 Telephone encounter Note Patient: NIURKA ZHU ([id number]) 07/21/2024 Vitamin E-alpha 3.0 Vitamin E-gamma 0.6 [facility] 07-26-2024 Note HNO ID: [id number] Author: YOBANI BALLESTEROS APRN.AKOSUA Service: ? Author Type: Nurse Practitioner Type: Progress Notes Filed: 07/26/2024 10:22 Note Text: [facility] Subjective Niurka Zhu is a 44 year old female. Presents for urinary urgency, frequency and burning. Reports symptoms started 2-3 days ago. Also reports some suprapubic pain. Patient presents with: Urinary Frequency: Frequency, urgency and burning x 2-3 days Objective BP 128/82 Pulse 64 Temp 36.6 ?C (97.9 ?F) (Tympanic) Resp 16 Wt 70.6 kg (155 lb 10.3 oz) LMP 05/03/2023 (Approximate) SpO2 100% BMI 26.72 kg/m? Physical Exam PHYSICAL EXAMINATION: General appearance: Well appearing, alert, in no acute distress, well-hydrated, well nourished. Abdomen: Positive findings: tenderness mild suprapubic Latest Ref Rng 07/26/2024 GLUCOSE UA (POCT) Negative mg/dL Negative BILIRUBIN UA (POCT) Negative Negative KETONE UA (POCT) Negative mg/dL Negative SPECIFIC GRAVITY UA (POCT) 1.005 - 1.030 1.025 HEMOGLOBIN/BLOOD UA (POCT) Negative Moderate ! PH UA (POCT) 4.5 - 8.0 5.5 PROTEIN UA (POCT) Negative mg/dL Negative UROBILINOGEN UA (POCT) Normal E.U./dL 0.2 NITRITE UA (POCT) Negative Negative LEUKOCYTES UA (POCT) Negative Negative COLOR UA (POCT) Yellow CLARITY UA (POCT) Clear ASSESSMENT/PLAN: 1. Urinary frequency - ICD9: 788.41, ICD10: R35.0 acute - UA positive for hematuria - Send urine for culture - Patient education for prevention given - UA DIP, URINE (POC) - BACTERIAL CULTURE, URINE Given urine is positive for blood only will wait for culture results. If culture positive would start on macrobid. Patient advised if pain becomes severe, she has systemic symptoms or urinary retention to proceed to ER. Verbalized understanding. Yobani Ballesteros APRN.DIRECTOR OF GROUP SALES Differential Diagnoses - kidney stone is more likely for the following reason(s): suggested by HANDP - UTI is less likely for the following reason(s): laboratory studies not suggestive Disposition The patient was discharged. [facility] 07-26-2024 History of Present illness Narrative [facility] Subjective Niurka Zhu is a 44 year old female. Presents for urinary urgency, frequency and burning. Reports symptoms started 2-3 days ago. Also reports some suprapubic pain. Patient presents with: Urinary Frequency: Frequency, urgency and burning x 2-3 days Objective BP 128/82 Pulse 64 Temp 36.6 C (97.9 F) (Tympanic) Resp 16 Wt 70.6 kg (155 lb 10.3 oz) LMP 05/03/2023 (Approximate) SpO2 100% BMI 26.72 kg/m Physical Exam PHYSICAL EXAMINATION: General appearance: Well appearing, alert, in no acute distress, well-hydrated, well nourished. Abdomen: Positive findings: tenderness mild suprapubic Latest Ref Rng 07/26/2024 GLUCOSE UA (POCT) Negative mg/dL Negative BILIRUBIN UA (POCT) Negative Negative KETONE UA (POCT) Negative mg/dL Negative SPECIFIC GRAVITY UA (POCT) 1.005 - 1.030 1.025 HEMOGLOBIN/BLOOD UA (POCT) Negative Moderate ! PH UA (POCT) 4.5 - 8.0 5.5 PROTEIN UA (POCT) Negative mg/dL Negative UROBILINOGEN UA (POCT) Normal E.U./dL 0.2 NITRITE UA (POCT) Negative Negative LEUKOCYTES UA (POCT) Negative Negative COLOR UA (POCT) Yellow CLARITY UA (POCT) Clear ASSESSMENT/PLAN: 1. Urinary frequency - ICD9: 788.41, ICD10: R35.0 acute - UA positive for hematuria - Send urine for culture - Patient education for prevention given - UA DIP, URINE (POC) - BACTERIAL CULTURE, URINE Given urine is positive for blood only will wait for culture results. If culture positive would start on macrobid. Patient advised if pain becomes severe, she has systemic symptoms or urinary retention to proceed to ER. Verbalized understanding. Yobani Ballesteros APRN.AKOSUA Differential Diagnoses - kidney stone is more likely for the following reason(s): suggested by H&P - UTI is less likely for the following reason(s): laboratory studies not suggestive Disposition The patient was discharged. documented in this encounter [facility] 07-24-2024 Telephone encounter Note Mg++ unchanged since last labs. K+ slightly low and was low on last labs as well. Awaiting Vitamin E Called pt to review Mg and K+ levels. No answer and VM left. Await return of call. Recommendations: - Confirm pt is taking 9 tabs of Mag Tab. If so determine if pt willing to change to Mg Plus Protein supplement as this contains more mEq per tablet. - Start 20 mEq K+ daily - Recheck BMP, Mg in [address] [facility] Work Phone: 07-22-2024 Telephone encounter Note Patient: NIURKA ZHU ([id number]) Latest Ref Rng 07/21/2024 Glucose 74 - 99 mg/dL 99 BUN 7 - 21 mg/dL 7 Creatinine 0.58 - 0.96 mg/dL 0.54 (L) Sodium 136 - 144 mmol/L 140 Potassium 3.7 - 5.1 mmol/L 3.5 (L) Chloride 98 - 107 mmol/L 106 CO2 22 - 30 mmol/L 26 Anion Gap 8 - 15 mmol/L 8 Calcium 8.5 - 10.2 mg/dL 9.1 eGFR >=60 mL/min/1.73m 117 Magnesium 1.7 - 2.3 mg/dL 1.3 (L) Pending: Vit E [facility] 07-16-2024 Telephone encounter Note I have reviewed the dosage, timing and amount of medication to be dispensed. I approve this prescription to be reviewed and signed by a Nutrition Support physician. Prescription Disposition: Escript Requested Prescriptions Pending Prescriptions Disp Refills MAGTAB 84 mg TbER 180 tablet 5 Sig: Take 2 tablets by mouth three times a day. Shameka Joyce RD [facility] 07-16-2024 Miscellaneous Notes I have reviewed the dosage, timing and amount of medication to be dispensed. I approve this prescription to be reviewed and signed by a Nutrition Support physician. Prescription Disposition: Escript Requested Prescriptions Pending Prescriptions Disp Refills MAGTAB 84 mg TbER 180 tablet 5 Sig: Take 2 tablets by mouth three times a day. Shameka Joyce RD documented in this encounter [facility] 07-14-2024 Telephone encounter Note PA needed for med, hendrickson code in covermymeds [id number] and sent to [facility]. Mihai Johnson RN [facility] Work Phone: 07-14-2024 Miscellaneous Notes PA needed for med, hendrickson code in covermymeds [id number] and sent to [facility]. Mihai Johnson RN documented in this encounter [facility] 07-07-2024 Telephone encounter Note I have reviewed the dosage, timing and amount of medication to be dispensed. I approve this prescription to be reviewed and signed by a Nutrition Support physician. Prescription Disposition: Escript Physician: Dr. Elmore Call from patient requesting refill. Please E-Scribe Last OV: 2/12/[address] Elmore Requested Prescriptions Pending Prescriptions Disp Refills magnesium lactate ER (MAGTAB) 84 mg TbER 180 tablet 2 Sig: Take 2 tablets by mouth three times a day. Syringe with Needle, Disp, 3 mL 25 gauge x 1 4 Each 0 Sig: Inject 1 Syringe intramuscularly one time a week for 4 doses. One syringe as directed for Vitamin B12 injection as ordered. cyanocobalamin (VITAMIN B-12) 1,000 mcg/mL 4 mL 0 Sig: Inject 1 mL intramuscularly one time a week for 4 doses. ergocalciferol 50,000 unit capsule (VITAMIN D2, DRISDOL) 36 capsule 0 Sig: Take 1 capsule by mouth three times a week. copper citrate 2 mg capsule 90 capsule 0 Sig: Take 1 capsule by mouth once daily. multivit with min #53-[id number] (DEKAS PLUS, FOLIC ACID,) 200 mcg-1,000 mcg-10 mg cap 90 capsule 0 Sig: Take 1 capsule by mouth once daily. Shameka Joyce RD [facility] 07-07-2024 Miscellaneous Notes I have reviewed the dosage, timing and amount of medication to be dispensed. I approve this prescription to be reviewed and signed by a Nutrition Support physician. Prescription Disposition: Escript Physician: Dr. Elmore Call from patient requesting refill. Please E-Scribe Last OV: 07/01/[address] Elmore Requested Prescriptions Pending Prescriptions Disp Refills magnesium lactate ER (MAGTAB) 84 mg TbER 180 tablet 2 Sig: Take 2 tablets by mouth three times a day. Syringe with Needle, Disp, 3 mL 25 gauge x 1 4 Each 0 Sig: Inject 1 Syringe intramuscularly one time a week for 4 doses. One syringe as directed for Vitamin B12 injection as ordered. cyanocobalamin (VITAMIN B-12) 1,000 mcg/mL 4 mL 0 Sig: Inject 1 mL intramuscularly one time a week for 4 doses. ergocalciferol 50,000 unit capsule (VITAMIN D2, DRISDOL) 36 capsule 0 Sig: Take 1 capsule by mouth three times a week. copper citrate 2 mg capsule 90 capsule 0 Sig: Take 1 capsule by mouth once daily. multivit with min #53-FA-[id number] (DEKAS PLUS, FOLIC ACID,) 200 mcg-1,000 mcg-10 mg cap 90 capsule 0 Sig: Take 1 capsule by mouth once daily. Shameka Joyce RD documented in this encounter [facility] 07-07-2024 Telephone encounter Note Spoke to patient regarding recommendations below. Scripts to be sent to [facility] in [place], [place] Recommendations: - START DEKAs essential daily - can hold Vit A and E when starting ; -Pt provided with 4 bottles of Forvia daily multivitamin in meantime at recent clinic visit - Ok to hold if starting DIANN, Vitamin A 10,000 units daily - not taking - Start Booster B12 injections weekly and then transition back to monthly injections. - Resume Vitamin D2 50,000 units 3x per week - Ok to hold if starting DIANN, Vitamin E 400 units daily - Resume Copper Gluconate 2 mg 1 capsule daily - Ok to continue not taking as levels WNL: Iron polysaccharide daily - Resume Mag Tab 2 tabs after meals (6 tabs per day) - Recheck Mg in 2 weeks and determine if patient willing to have Vit E checked as lab not obtained. Shameka Joyce RD [facility] Work Phone: 07-07-2024 Miscellaneous Notes Spoke to patient regarding recommendations below. Scripts to be sent to [facility] in [place], [place] Recommendations: - START DEKAs essential daily - can hold Vit A and E when starting ; -Pt provided with 4 bottles of Forvia daily multivitamin in meantime at recent clinic visit - Ok to hold if starting DIANN, Vitamin A 10,000 units daily - not taking - Start Booster B12 injections weekly and then transition back to monthly injections. - Resume Vitamin D2 50,000 units 3x per week - Ok to hold if starting DIANN, Vitamin E 400 units daily - Resume Copper Gluconate 2 mg 1 capsule daily - Ok to continue not taking as levels WNL: Iron polysaccharide daily - Resume Mag Tab 2 tabs after meals (6 tabs per day) - Recheck Mg in 2 weeks and determine if patient willing to have Vit E checked as lab not obtained. Shameka Joyce RD Patient returned call to office for LIZZY Myles. Niurka Attempted to return call to patient. VM left. Shameka Joyce RD Pt called, returning Shameka call. Lab results reviewed. Called patient to review and no answer. VM left. Hydration: BUN/sCr wnl Lytes: K+ slightly low at 3.6, Mg 1.3 (L), phos wnl Vitamins/ trace elements: Vit A decreased 0.20 -> 0.07 (L) MMA 3.21 (H), B12 < 150 (L) Vit D 14.2 (L) - > 10.8 (L) Cu 60 (L) Vit K, B6, B1, Zn, iron studies WNL Vit E not obtained Recommendations: - START DEKAs essential daily - unsure if she will get covered - if covered, can hold Vit A and E when starting ; my also consider Bariatric Plus Multivitamin -Pt provided with 4 bottles of Forvia daily multivitamin in meantime at recent clinic visit - Vitamin A 10,000 units daily - not taking - Start Booster B12 injections weekly and then transition back to monthly injections. - Vitamin D2 50,000 units 2x/week (increased to 3x/week s/p 09/20/23 labs - unknown if actually started) -will need to assess if taking and if not will need to resume. - Vitamin E 400 units daily -not currently taking - Copper Gluconate 2 mg 1 capsule daily - not currently taking - Ok to continue not taking as levels WNL: Iron polysaccharide daily - Resume Mag Tab 2 tabs after meals and 3 at bedtime (9 daily not currently taking - Recheck Mg in 2 weeks and determine if patient willing to have Vit E checked as lab not obtained. Shameka Joyce RD Patient: NIURKA ZHU ([id number]) Latest Ref Rng 07/01/2024 WBC 3.70 - 11.00 k/uL 4.73 RBC 3.90 - 5.20 m/uL 4.51 Hemoglobin 11.5 - 15.5 g/dL 13.4 Hematocrit 36.0 - 46.0 % 41.7 MCV 80.0 - 100.0 fL 92.5 MCH 26.0 - 34.0 pg 29.7 MCHC 30.5 - 36.0 g/dL 32.1 RDW-CV 11.5 - 15.0 % 12.8 Platelet Count 150 - 400 k/uL 173 MPV 9.0 - 12.7 fL 9.9 Neut% % 59.3 Abs Neut (ANC) 1.45 - 7.50 k/uL 2.80 Lymph% % 29.8 Abs Lymph 1.00 - 4.00 k/uL 1.41 [place]% % 7.2 Abs [place] <0.87 k/uL 0.34 Eosin% % 2.7 Abs Eosin <0.46 k/uL 0.13 Baso% % 0.8 Abs Baso <0.11 k/uL 0.04 Immature Gran % % 0.2 IMMATURE GRANS (ABS) <0.10 k/uL <0.03 NRBC /100 WBC 0.0 Absolute nRBC <0.01 k/uL <0.01 DTYPE Auto Protein, Total 6.3 - 8.0 g/dL 7.0 Albumin 3.9 - 4.9 g/dL 4.5 Calcium 8.5 - 10.2 mg/dL 9.6 Bilirubin, Total 0.2 - 1.3 mg/dL 0.9 Alkaline Phosphatase 34 - 123 U/L 89 AST 13 - 35 U/L 28 ALT 7 - 38 U/L 23 Glucose 74 - 99 mg/dL 79 BUN 7 - 21 mg/dL 10 Creatinine 0.58 - 0.96 mg/dL 0.67 Sodium 136 - 144 mmol/L 138 Potassium 3.7 - 5.1 mmol/L 3.6 (L) Chloride 98 - 107 mmol/L 103 CO2 22 - 30 mmol/L 23 Anion Gap 8 - 15 mmol/L 12 eGFR >=60 mL/min/1.73m 111 Iron 41 - 186 ug/dL 95 TIBC 232 - 386 ug/dL 277 Transferrin Saturation 20.0 - 55.0 % 34.3 Vitamin E-alpha -- Vitamin E-gamma -- TSH 0.270 - 4.200 mIU/L 1.510 Folate >4.7 ng/mL 12.9 Ferritin 14.7 - 205.1 ng/mL 160.0 Magnesium 1.7 - 2.3 mg/dL 1.3 (L) Phosphorus 2.7 - 4.8 mg/dL 3.0 Zinc 60 - 120 ug/dL 72 Copper 80 - 155 ug/dL 60 (L) Vitamin A 0.30 - 1.20 mg/L 0.07 (L) Vitamin D 25 Hydroxy 31.0 - 80.0 ng/mL 10.8 (L) Vitamin B12 232 - 1,245 pg/mL <150 (L) Methylmalonic Acid <=0.40 umol/L 3.21 (H) Vitamin K 0.22 - 4.88 nmol/L 0.22 Vitamin B6, Plasma 20.0 - 125.0 nmol/L 20.0 Vitamin B1 (TDP), Whole Blood 84.3 - 213.3 nmol/L 144.8 CRP <0.9 mg/dL <0.3 documented in this encounter [facility] 07-07-2024 Telephone encounter Note Patient returned call to office for RD. Niurka Myles [facility] 07-07-2024 Telephone encounter Note Attempted to return call to patient. DOM left. Shameka Joyce RD [facility] 07-07-2024 Telephone encounter Note Pt called, returning Shameka call. [facility] 07-07-2024 Telephone encounter Note Lab results reviewed. Called patient to review and no answer. VM left. Hydration: BUN/sCr wnl Lytes: K+ slightly low at 3.6, Mg 1.3 (L), phos wnl Vitamins/ trace elements: Vit A decreased 0.20 -> 0.07 (L) MMA 3.21 (H), B12 < 150 (L) Vit D 14.2 (L) - > 10.8 (L) Cu 60 (L) Vit K, B6, B1, Zn, iron studies WNL Vit E not obtained Recommendations: - START DEKAs essential daily - unsure if she will get covered - if covered, can hold Vit A and E when starting ; my also consider Bariatric Plus Multivitamin -Pt provided with 4 bottles of Forvia daily multivitamin in meantime at recent clinic visit - Vitamin A 10,000 units daily - not taking - Start Booster B12 injections weekly and then transition back to monthly injections. - Vitamin D2 50,000 units 2x/week (increased to 3x/week s/p 09/20/23 labs - unknown if actually started) -will need to assess if taking and if not will need to resume. - Vitamin E 400 units daily -not currently taking - Copper Gluconate 2 mg 1 capsule daily - not currently taking - Ok to continue not taking as levels WNL: Iron polysaccharide daily - Resume Mag Tab 2 tabs after meals and 3 at bedtime (9 daily not currently taking - Recheck Mg in 2 weeks and determine if patient willing to have Vit E checked as lab not obtained. Shameka Joyce RD [facility] 07-06-2024 Telephone encounter Note Patient: NIURKA ZHU ([id number]) Latest Ref Rng 07/01/2024 WBC 3.70 - 11.00 k/uL 4.73 RBC 3.90 - 5.20 m/uL 4.51 Hemoglobin 11.5 - 15.5 g/dL 13.4 Hematocrit 36.0 - 46.0 % 41.7 MCV 80.0 - 100.0 fL 92.5 MCH 26.0 - 34.0 pg 29.7 MCHC 30.5 - 36.0 g/dL 32.1 RDW-CV 11.5 - 15.0 % 12.8 Platelet Count 150 - 400 k/uL 173 MPV 9.0 - 12.7 fL 9.9 Neut% % 59.3 Abs Neut (ANC) 1.45 - 7.50 k/uL 2.80 Lymph% % 29.8 Abs Lymph 1.00 - 4.00 k/uL 1.41 [place]% % 7.2 Abs [place] <0.87 k/uL 0.34 Eosin% % 2.7 Abs Eosin <0.46 k/uL 0.13 Baso% % 0.8 Abs Baso <0.11 k/uL 0.04 Immature Gran % % 0.2 IMMATURE GRANS (ABS) <0.10 k/uL <0.03 NRBC /100 WBC 0.0 Absolute nRBC <0.01 k/uL <0.01 DTYPE Auto Protein, Total 6.3 - 8.0 g/dL 7.0 Albumin 3.9 - 4.9 g/dL 4.5 Calcium 8.5 - 10.2 mg/dL 9.6 Bilirubin, Total 0.2 - 1.3 mg/dL 0.9 Alkaline Phosphatase 34 - 123 U/L 89 AST 13 - 35 U/L 28 ALT 7 - 38 U/L 23 Glucose 74 - 99 mg/dL 79 BUN 7 - 21 mg/dL 10 Creatinine 0.58 - 0.96 mg/dL 0.67 Sodium 136 - 144 mmol/L 138 Potassium 3.7 - 5.1 mmol/L 3.6 (L) Chloride 98 - 107 mmol/L 103 CO2 22 - 30 mmol/L 23 Anion Gap 8 - 15 mmol/L 12 eGFR >=60 mL/min/1.73m 111 Iron 41 - 186 ug/dL 95 TIBC 232 - 386 ug/dL 277 Transferrin Saturation 20.0 - 55.0 % 34.3 Vitamin E-alpha -- Vitamin E-gamma -- TSH 0.270 - 4.200 mIU/L 1.510 Folate >4.7 ng/mL 12.9 Ferritin 14.7 - 205.1 ng/mL 160.0 Magnesium 1.7 - 2.3 mg/dL 1.3 (L) Phosphorus 2.7 - 4.8 mg/dL 3.0 Zinc 60 - 120 ug/dL 72 Copper 80 - 155 ug/dL 60 (L) Vitamin A 0.30 - 1.20 mg/L 0.07 (L) Vitamin D 25 Hydroxy 31.0 - 80.0 ng/mL 10.8 (L) Vitamin B12 232 - 1,245 pg/mL <150 (L) Methylmalonic Acid <=0.40 umol/L 3.21 (H) Vitamin K 0.22 - 4.88 nmol/L 0.22 Vitamin B6, Plasma 20.0 - 125.0 nmol/L 20.0 Vitamin B1 (TDP), Whole Blood 84.3 - 213.3 nmol/L 144.8 CRP <0.9 mg/dL <0.3 [facility] 07-01-2024 Note HNO ID: [id number] Author: MARCI SHAHID RD Service: ? Author Type: Registered Dietitian Type: Progress Notes Filed: 07/01/2024 16:20 Note Text: [facility] Follow up visit Today's plan of care included plan to check Vitamin / mineral / trace element levels again. Zenpep was reordered, as pt did have success with it in past. Dr. Elmore also ordered a 10 day course of Flagyl for SIBO sx. Samples of Forvia MVI also provided by Dr. Elmore. Intake: Appetite is weird lately. Not feeling hungry and forgets to eat. Pt c/o increased bloating after she eats. Her oral intake has been inconsistent, and she is mostly sticking to high starch, high salt foods with no ORS or ONS daily. Pt does have poor dentition and had difficulty chewing, but not swallowing foods. Current Diet Recall: Pt is trying to take high starch, high salt intake B: bagel, diet coke S: breakfast sandwich - jorge/egg/cheese L: sandwich or pasta D: chicken or fish; feels worsening pain with beef Snacks: wheat thins w/cheese, cottage cheese Beverages: 2 cans diet coke, water, coffee (12-16 oz); ONS: none Output: Urine output is increased frequency but lower volume. Pt is having more formed bowel movements if doesn't eat much. Has 4-6 loose, foamy, frothy stools if eats well. Relation to food/ fluid 2-3 hours. ASSESSMENT OF MALNUTRITION: No protein energy malnutrition, but micronutrient deficiencies suspected. 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 Avoid high fat foods. Oral Rehydration Solution (ORS): Continue drip drop, recommended increasing ORS intake and reducing hypotonic fluid intake Vitamin AND Mineral Supplements: - START DEKAs essential daily - unsure if she will get covered - if covered, can hold other fat soluble vits when starting ; my also consider Bariatric Plus Multivitamin -Pt provided with 4 bottles of Forvia daily multivitamin in meantime at today's visit. - Vitamin A 10,000 units daily - not taking - Vitamin B12 injections monthly -not taking. New script ordered today - Vitamin D2 50,000 units 2x/week (increased to 3x/week s/p 09/20/23 labs - unknown if actually started) - Vitamin E 400 units daily -not currently taking - Calcium Carbonate 1,000 mg daily taking PRN, resume TID to prevent kidney stones - Iron polysaccharide daily - not currently taking - Copper Gluconate 2 mg 1 capsule daily - not currently taking Oral Electrolyte Repletion - Continue Mag tab 2 tabs after meals (6 per day) Increase MagTab 2 tabs after meals (6 per day) to additional 3 at bedtime (9 daily). 09/20/23---not currently taking PERT: - - Start potassium 20 mEq daily 5/3/24 -- not currently taking - START ZenPep 40,000 lipase units 1 cap with meals and snacks - 4 caps per day to start - reordered today Antidiarrheal medications - not using Labs: (WHAT) CMP, Mg, Phos, CBC, Vitamin A, D 25 Hydroxy, E, B12, B6, Zinc, Copper, CRP, Iron, and MMA (WHEN) due today (WHERE) Orders in [facility]; Coordinator to enter into IRP Database only Patient Group: [facility] Follow Up: Return to clinic in [address] Elmore and CGRT RD. Signed by: Marci Shahid RD Date: 06/30/2024 [facility] 07-01-2024 History of Present illness Narrative [facility] ([facility] Follow up visit Today's plan of care included plan to check Vitamin / mineral / trace element levels again. Zenpep was reordered, as pt did have success with it in past. Dr. Elmore also ordered a 10 day course of Flagyl for SIBO sx. Samples of Forvia MVI also provided by Dr. Elmore. Intake: Appetite is weird lately. Not feeling hungry and forgets to eat. Pt c/o increased bloating after she eats. Her oral intake has been inconsistent, and she is mostly sticking to high starch, high salt foods with no ORS or ONS daily. Pt does have poor dentition and had difficulty chewing, but not swallowing foods. Current Diet Recall: Pt is trying to take high starch, high salt intake B: bagel, diet coke S: breakfast sandwich - jorge/egg/cheese L: sandwich or pasta D: chicken or fish; feels worsening pain with beef Snacks: wheat thins w/cheese, cottage cheese Beverages: 2 cans diet coke, water, coffee (12-16 oz); ONS: none Output: Urine output is increased frequency but lower volume. Pt is having more formed bowel movements if doesn't eat much. Has 4-6 loose, foamy, frothy stools if eats well. Relation to food/ fluid 2-3 hours. ASSESSMENT OF MALNUTRITION: No protein energy malnutrition, but micronutrient deficiencies suspected. 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 Avoid high fat foods. Oral Rehydration Solution (ORS): Continue drip drop, recommended increasing ORS intake and reducing hypotonic fluid intake Vitamin & Mineral Supplements: - START DEKAs essential daily - unsure if she will get covered - if covered, can hold other fat soluble vits when starting ; my also consider Bariatric Plus Multivitamin -Pt provided with 4 bottles of Forvia daily multivitamin in meantime at today's visit. - Vitamin A 10,000 units daily - not taking - Vitamin B12 injections monthly -not taking. New script ordered today - Vitamin D2 50,000 units 2x/week (increased to 3x/week s/p 09/20/23 labs - unknown if actually started) - Vitamin E 400 units daily -not currently taking - Calcium Carbonate 1,000 mg daily taking PRN, resume TID to prevent kidney stones - Iron polysaccharide daily - not currently taking - Copper Gluconate 2 mg 1 capsule daily - not currently taking Oral Electrolyte Repletion - Continue Mag tab 2 tabs after meals (6 per day) Increase MagTab 2 tabs after meals (6 per day) to additional 3 at bedtime (9 daily). 09/20/23---not currently taking PERT: - - Start potassium 20 mEq daily 09/20/23 -- not currently taking - START ZenPep 40,000 lipase units 1 cap with meals and snacks - 4 caps per day to start - reordered today Antidiarrheal medications - not using Labs: (WHAT) CMP, Mg, Phos, CBC, Vitamin A, D 25 Hydroxy, E, B12, B6, Zinc, Copper, CRP, Iron, and MMA (WHEN) due today (WHERE) Orders in [facility]; Coordinator to enter into IRP Database only Patient Group: [facility] Follow Up: Return to clinic in [address] Elmore and [facility] RD. Signed by: Marci Shahid RD Date: 06/30/2024 documented in this encounter [facility] 07-01-2024 Note HNO ID: [id number] Author: MARCI SHAHID RD Service: ? 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 Patient has since underwent STEP procedure 07/21/14 resulting in PN independence; however was unable to maintain adequate electrolytes and nutrition. Underwent second STEP 09/07/16. She was lost to follow up and re-established care 05/2023. Pt was last seen in virtual visit with Dr. Elmore on 08/30/23. This was a limited visit d/t timeliness and technical difficulties. Pt later did not show for appt shceduled 10/30/23. Patient complains of feeling lethargic and low energy. Pt reports difficulty with eyesight; light sensitivity during day; tunnel vision at night. She is reporting muscle cramping in LE. Pt is c/o increased heartburn / reflux. Also c/o increased L-sided abd pain throughout L side of back. Although weight has remained stable, pt reports multiple sx of deficiencies and admits to not taking any vitamins or micronutrient supplements despite low levels in past. Today's plan of care included plan to check Vitamin / mineral / trace element levels again. Zenpep was reordered, as pt did have success with it in past. Dr. Elmore also ordered a 10 day course of Flagyl for SIBO sx. Samples of Forvia MVI also provided by Dr. Elmore. Last Intestinal Surgery: 09/07/2016: STEP x 7, L ovarian cystectomy, VHR, BETHANY, bilateral separation of component 07/21/14: STEP 09/15/13: Ex lap, washout, takedown of endo jejunostomy, jejunocolostomy. 08/31/13: Ex lap, abdominal washout, biopsy of the lateral segment of the liver, and abdominal closure. 08/27/13: Ex lap, total enterectomy, right hemicolectomy, end jejunostomy Intestinal Anatomy: Per Surgical history: Intact stomach, duodenum (?), 78 cm of jejunum anastomosed to mid-transverse colon, no ICV, + rectum, +anus. 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 Not feeling hungry and forgets to eat. Pt c/o increased bloating after she eats. Her oral intake has been inconsistent, and she is mostly sticking to high starch, high salt foods with no ORS or ONS daily. Pt does have poor dentition and had difficulty chewing, but not swallowing foods. Current Diet Recall: Pt is trying to take high starch, high salt intake B: bagel, diet coke S: breakfast sandwich - jorge/egg/cheese L: sandwich or pasta D: chicken or fish; feels worsening pain with beef Snacks: wheat thins w/cheese, cottage cheese Beverages: 2 cans diet coke, water, coffee (12-16 oz); ONS: none Output: Urine output is increased frequency but lower volume. Pt is having more formed bowel movements if doesn't eat much. Has 4-6 loose, foamy, frothy stools if eats well. Relation to food/ fluid 2-3 hours. Laboratory: IRP Encounter 08/30/2023 06/04/2023 06/04/2023 06/04/2023 06/01/2021 02/22/2021 02/09/2021 Lab Source Na (mEq) 139 138 140 140 141 142 K (mEq) 3.4? 3.8 3.9 3.6? 3.1? 3.9 Cl (mEq) 104 102 104 104 105 103 CO2 (mmol/L) 27 25 26 24 27 29 BUN (mg/dL) 8 10 12 9 8 8 Creatinine (mg/dL) 0.62 0.67 0.73 0.72 0.7 0.64 Glucose (mg/dL) 76 93 89 94 88 91 Calcium (mg/dL) 9.5 9.8 8.9 9.4 9.1 9.9 Total Protein (g/dL) 6.9 6.3 6.8 6.5 7.3 Alb (g/dL) 4.1 4 4.1 4.3 4.3 AST (SGOT, U/L) 17 25 34 26 27 Alk Phos (g/dL) 68 82 92 81 91 Total Bili (mg/dL) 0.5 0.6 0.5 0.3 0.5 ALT (U/L) 16 23 32 27 29 Mg (mg/dL) 1.2? 1.4? 1.2? 1.3? 1.2? 1.4? PO4 (mg/dL) 3.2 3.7 2.6? 3.2 3.3 WBC (K/uL) 6.02 7.14 Hgb (g/dL) 12.3 13.7 Hct (%) 37.9 43.8 MCV (fL) 93.8 94 RDW (%) 12.9 Platelet (K/uL) 150 242 Vitamin A (ug/dL) 0.2? 0.16? 0.15? 0.15? Vitamin E (ug/dL) 3.9? 4.5? 4.6? 4.5? Vitamin D 25 (ng/mL) 14.2? 20.4? 11.8? 32.5 Vitamin B6 (ug/L) 42.6 36.1 Vitamin B12 (pg/mL) 284 0? 328 212? Folate (ng/mL) Serum Iron (ug/dL) 27? 77 Transferrin Saturat (%) 8.5? 23 Ferritin (mg/dL) 71.4 59.4 TIBC (ug/dL) 316 329 Zinc (ug/dL) 63 73 Copper (ug/dL) 66? Medications: Current Outpatient Medications Medication Sig naproxen (NAPROSYN) 500 mg tablet Take 1 tablet by mouth two times a day as needed (for pain/inflammation). (more content not included)... [facility] 07-01-2024 History of Present illness Narrative Images from the original note were not included. 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 Patient has since underwent STEP procedure 07/21/14 resulting in PN independence; however was unable to maintain adequate electrolytes and nutrition. Underwent second STEP 09/07/16. She was lost to follow up and re-established care 05/2023. Pt was last seen in virtual visit with Dr. Elmore on 08/30/23. This was a limited visit d/t timeliness and technical difficulties. Pt later did not show for appt shceduled 10/30/23. Patient complains of feeling lethargic and low energy. Pt reports difficulty with eyesight; light sensitivity during day; tunnel vision at night. She is reporting muscle cramping in LE. Pt is c/o increased heartburn / reflux. Also c/o increased L-sided abd pain throughout L side of back. Although weight has remained stable, pt reports multiple sx of deficiencies and admits to not taking any vitamins or micronutrient supplements despite low levels in past. Today's plan of care included plan to check Vitamin / mineral / trace element levels again. Zenpep was reordered, as pt did have success with it in past. Dr. Elmore also ordered a 10 day course of Flagyl for SIBO sx. Samples of Forvia MVI also provided by Dr. Elmore. Last Intestinal Surgery: 09/07/2016: STEP x 7, L ovarian cystectomy, VHR, BETHANY, bilateral separation of component 07/21/14: STEP 09/15/13: Ex lap, washout, takedown of endo jejunostomy, jejunocolostomy. 08/31/13: Ex lap, abdominal washout, biopsy of the lateral segment of the liver, and abdominal closure. 08/27/13: Ex lap, total enterectomy, right hemicolectomy, end jejunostomy Intestinal Anatomy: Per Surgical history: Intact stomach, duodenum (?), 78 cm of jejunum anastomosed to mid-transverse colon, no ICV, + rectum, +anus. Co-morbidities: HPN (08/2013 - 11/2014) 08/23/20 CT Ab: Liver diffusely hypodense consistent with fatty liver; Liver Bx 08/2013 showed portal and lobular inflammation, cholestasis and rare neutrophils within bile ducts Hypercoagable (Protein C & S defn) - on Lovenox Hx of DVT Hx of SMA thrombosis Depression; in homeless residential (03/05/19-11/2019) Bone Scan: 02/06/2016 z-score: -1.1 wiithin expected range for age Lack of social support Nephrolithiasis Resumed smoking (tobacco cigarettes 0.5-1 pk/day) Intake: Appetite is weird lately. Not feeling hungry and forgets to eat. Pt c/o increased bloating after she eats. Her oral intake has been inconsistent, and she is mostly sticking to high starch, high salt foods with no ORS or ONS daily. Pt does have poor dentition and had difficulty chewing, but not swallowing foods. Current Diet Recall: Pt is trying to take high starch, high salt intake B: bagel, diet coke S: breakfast sandwich - jorge/egg/cheese L: sandwich or pasta D: chicken or fish; feels worsening pain with beef Snacks: wheat thins w/cheese, cottage cheese Beverages: 2 cans diet coke, water, coffee (12-16 oz); ONS: none Output: Urine output is increased frequency but lower volume. Pt is having more formed bowel movements if doesn't eat much. Has 4-6 loose, foamy, frothy stools if eats well. Relation to food/ fluid 2-3 hours. Laboratory: IRP Encounter 08/30/2023 06/04/2023 06/04/2023 06/04/2023 06/01/2021 02/22/2021 02/09/2021 Lab Source Na (mEq) 139 138 140 140 141 142 K (mEq) 3.4? 3.8 3.9 3.6? 3.1? 3.9 Cl (mEq) 104 102 104 104 105 103 CO2 (mmol/L) 27 25 26 24 27 29 BUN (mg/dL) 8 10 12 9 8 8 Creatinine (mg/dL) 0.62 0.67 0.73 0.72 0.7 0.64 Glucose (mg/dL) 76 93 89 94 88 91 Calcium (mg/dL) 9.5 9.8 8.9 9.4 9.1 9.9 Total Protein (g/dL) 6.9 6.3 6.8 6.5 7.3 Alb (g/dL) 4.1 4 4.1 4.3 4.3 AST (SGOT, U/L) 17 25 34 26 27 Alk Phos (g/dL) 68 82 92 81 91 Total Bili (mg/dL) 0.5 0.6 0.5 0.3 0.5 ALT (U/L) 16 23 32 27 29 Mg (mg/dL) 1.2? 1.4? 1.2? 1.3? 1.2? 1.4? PO4 (mg/dL) 3.2 3.7 2.6? 3.2 3.3 WBC (K/uL) 6.02 7.14 Hgb (g/dL) 12.3 13.7 Hct (%) 37.9 43.8 MCV (fL) 93.8 94 RDW (%) 12.9 Platelet (K/uL) 150 242 Vitamin A (ug/dL) 0.2? 0.16? 0.15? 0.15? Vitamin E (ug/dL) 3.9? 4.5? 4.6? 4.5? Vitamin D 25 (ng/mL) 14.2? 20.4? 11.8? 32.5 Vitamin B6 (ug/L) 42.6 36.1 Vitamin B12 (pg/mL) 284 0? 328 212? Folate (ng/mL) Serum Iron (ug/dL) 27? 77 Transferrin Saturat (%) 8.5? 23 Ferritin (mg/dL) 71.4 59.4 TIBC (ug/dL) 316 329 Zinc (ug/dL) 63 73 Copper (ug/dL) 66? Medications: Current Outpatient Medications Medication Sig naproxen (NAPROSYN) 500 mg tablet Take 1 tablet by mouth two times a day as needed (for pain/inflammation). Take with food. Vitamin E, dl, acetate, (VITAMIN E) 400 unit capsule Take 1 capsule by mouth once daily. ergocalciferol 50,000 unit capsule (VITAMIN D2, DRISDOL) Take 1 capsule by mouth three times a week. magnesium lactate ER (MAGTAB) 84 mg TbER Take 2 pills three times daily after meals and 3 pills at bedtime for total of 9 pills/day. Syringe with Needle, Disp, 3 mL 25 gauge x 1 1 Syringe once every month. One syringe as directed for Vitamin B12 injection as ordered. cyanocobalamin 1,000 mcg/mL Inject 1 mL intramuscularly once every month. aabist-wayweqao-gvxrgru (CREON) 24,000-76,000 -120,000 unit delayed release capsule Take 2 capsules by mouth with meals. Take 1 capsule by mouth with snack. Formulary substitute for Viokase. iron polysaccharide complex (FERREX 150) 150 mg iron capsule Take 1 capsule by mouth once daily. predniSONE (DELTASONE) 20 mg tablet 1 tablet 3 times daily for 3 days then 1 tablet twice daily for 2 days then 1 tablet daily for 2 days then half a tablet p.o. daily for 1 day loperamide (IMODIUM A-D) 2 mg cap(s) Take 1 capsule by mouth before meals and at bedtime. cyanocobalamin (VITAMIN B-12) 1,000 mcg/mL Inject 1 mL intramuscularly once every month. Then resume monthly 1 mL injections for 2 months. Administer at [facility] pyridoxine, vitamin B6, (VITAMIN B6) 50 mg tablet Take 2 tablets by mouth once daily. No current facility-administered medications for this visit. Prior response to [facility] therapy: ORS: Aiming to take more G2 with salt; takes some drip drop daily Benefiber: Not taking; previously taking 3 tbsp daily or 1 tbsp per day Imodium: Not taking, stays way from Imodium due to hx of GI bleeding; started taking for 1 week and experienced bleeding from bowels, stopped taking and bleeding subsided; prior to surgery was taking 4 mg ACHS; helped to slow down output, currently not taking Lomotil: Not taking; previously 1.5 mg before meals and bed; stopped due to stomach pain Codeine: Not used Tincture of Opium: Not used Pancreatic Enzymes: Not taking; did not tolerate Creon; prior to surgery was taking Zenpep 1 cap with meals Probiotics: Not taking; previously took Align once daily; helps with gas/bloating Antimicrobials for SIBO: Previously on Flagyl- makes a difference; Cipro- doesn't remember taking; Rifaxamin 550 mg TID x 14 days- may have worked; Flagyl helped 05/2023 Antisecretory: Previously tolerated 600 mcg Octreotide via PN Bile acid binding resin: Was prescribed but never tried following Imodium rx; similar hx of being prescribed at one point, but never used and then was discontinued Growth Hormone: Not used GLP2: was given a packet of information in the past, off PN not eligible IV Iron Infusions: Blood Management rec'd Iron Sucrose x 4 on 04/17/2019; h/o iron infusions at [address] per patient report; h/o heavy menstrual periods per patient report ALLERGIES Allergen Reactions Adhesive Rash, Itching Amoxicillin Hives Penicillins Hives I have reviewed allergies and medications. PAST MEDICAL HISTORY Diagnosis Date Back pain Chest pain 01/11/2014 Depression DVT (deep venous thrombosis) ([facility]) July 2013 Hypertension, essential 01/13/2018 Low blood magnesium 03/02/2016 Protein C deficiency ([facility]) Protein S deficiency ([facility]) S/P cholecystectomy SBO (small bowel obstruction) ([facility]) 05/25/2016 Short bowel syndrome PAST SURGICAL HISTORY Procedure Laterality Date ; REMOVAL OF SMALL INTESTINE 09/15/13 11 in. small intestine remain LAP PARTIAL COLECTOMY W/ANASTOMOSIS 09/15/13 REMOVAL GALLBLADDER 2003 Anthropometrics: Height: 5' 4 (162.6 cm) Weight: 146 lb (07/01/24; 139 lb (08/30/23 - self reported);149 lb (06/04/23) 73.5 kg /161lbs (02/07/21) 73kg (ED visit 08/23/20) 74.5 kg (164 lb) (11/23/2019) Usual weight: 145-149 lb per pt Goal weight: 150-155lbs (as discussed 06/04/2023) BMI 25 Weight has increased Weight has remained stable over past year Estimated Daily Nutritional Needs: 1659 - 2323 kcals/day = 25 - 35 kcals/kg dosing weight 100 - 133 g protein/day = 1.3-1.7 g/kg dosing weight Nutrition Focused Physical Exam: Subcutaneous Fat Loss: Orbital: Mild Triceps: Mild Mid-axillary at the iliac crest: None Muscle Loss Locations: Temporalis: Mild Pectoralis: None Deltoids: None Interosseous: None Latissimus dorsi, trapezius: None Quadriceps: None Gastrocnemius: None Ascites: No Edema: No Functional status: Functional, yet not normal, able to be up and about with fairly normal activities for a duration of 6 months Potential Signs of Inflammation: chronic condition Potential micronutrient deficiency revealed in Eyes - night blindness and tunnel vision Skin - dry, flaky, pallor, and poor turgor Gums - spongy, receding Teeth - poor dentition with missing teeth and tooth decay ASSESSMENT OF MALNUTRITION: No protein energy malnutrition, but micronutrient deficiencies suspected. 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 Avoid high fat foods. Oral Rehydration Solution (ORS): Continue drip drop, recommended increasing ORS intake and reducing hypotonic fluid intake Vitamin & Mineral Supplements: - START DEKAs essential daily - unsure if she will get covered - if covered, can hold other fat soluble vits when starting ; my also consider Bariatric Plus Multivitamin -Pt provided with 4 bottles of Forvia daily multivitamin in meantime at today's visit. - Vitamin A 10,000 units daily - not taking - Vitamin B12 injections monthly -not taking. New script ordered today - Vitamin D2 50,000 units 2x/week (increased to 3x/week s/p 09/20/23 labs - unknown if actually started) - Vitamin E 400 units daily -not currently taking - Calcium Carbonate 1,000 mg daily taking PRN, resume TID to prevent kidney stones - Iron polysaccharide daily - not currently taking - Copper Gluconate 2 mg 1 capsule daily - not currently taking Oral Electrolyte Repletion - Continue Mag tab 2 tabs after meals (6 per day) Increase MagTab 2 tabs after meals (6 per day) to additional 3 at bedtime (9 daily). 09/20/23---not currently taking PERT: - Resume ZenPep 40,000 lipase units 2 cap with meals and 1 with snacks - reordered today Antidiarrheal medications - not using Labs: (WHAT) CMP, Mg, Phos, CBC, Vitamin A, D 25 Hydroxy, E, B12, B6, Zinc, Copper, CRP, Iron, and MMA (WHEN) due today (WHERE) Orders in [facility]; Coordinator to enter into IRP Database only Patient Group: [facility] Follow Up: Return to clinic in [address] Elmore and CGRT RD. Signed by: Marci Shahid RD Date: 06/30/2024 [facility] STAFF PHYSICIAN NOTE OF PERSONAL INVOLVEMENT IN CARE I have reviewed the history obtained and documented by Marci Shahid RD and I personally participated in the hendrickson components. I have discussed the case and management of the patient's care. The following comments revise or confirm relevant hendrickson components of the note. Images from the original note were not included. [facility] Department of Gastroenterology & Hepatology Digestive Disease & Surgery [place] Established Patient Visit NAME: Niurka Zhu CLINIC NO: [id number] REASON FOR VISIT: Follow up Last visit: 10/30/2023 Niurka Zhu is a 43 year old female with protein C & S deficiency resulting in SMA thrombosis resulting in subtotal enterectomy on 08/27/13, and takedown of jejunostomy with jejunocolic anastomosis on 09/15/13 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 Patient has since underwent STEP procedure 07/21/14 resulting in TPN independence; however was unable to maintain adequate electrolytes and nutrition. Underwent second STEP 09/07/16. Current anatomy: 78 cm of jejunum anastomosed to mid-transverse colon, no ICV, + rectum, +anus. She has had issues with SIBO, malabsorption, and continued IV electrolyte replacement. ISSUES & PLAN: #) Short bowel syndrome with colon #) Intestinal malabsorption #) SIBO -Received extensive RD counseling today re: SBS with colon -ORS as beverage of choice -Re-start PERT with hx of malabsorption and YADI - Zenpep 25,000-79,000- 105,000 units (2 with meals, 1 with snacks) (did not tolerate creon before) -Restart flagyl #) Micronutrient deficiencies-Need to recheck all levels -Will decide on management based on levels, but will likely need VitB12 injections restarted along with DIANN -Reorder VitB12 monthly injections #Decreased energy #Dizziness #Blood per rectum -Recheck CBC, TSH, iron levels -will benefit from colonoscopy at some point soon Interval history: Patient was last seen 10/30/2023. She has then been lost to follow up. Reports that she has had a tough time at home and has not been taking any of her vitamins. Symptoms described: -Nearsighted vision difficulties and tunnel vision at night -Decreased appetite with no change in jennifer -dizziness and lightheadedness when standing up in morning, no falls or LOC, palpitations but no chest pain -5-6 BM (occasionally difficult to flush) with bad odor and increased bloating, occasional red blood per rectum and when wiping, denies melena -dental problems with fallen teeth and mouth ulcers, no hair problems -Dry skin, irritability, difficulty sleeping and low energy Weight: 08/01/22 15:03 08/07/22 19:07 10/02/22 12:53 03/08/23 10:15 04/07/23 13:58 05/04/23 06/04/23 06/08/23 09:11 06/21/23 07:44 01/21/24 12:30 Weight 157 lb (71.2 kg) 162 lb 9.6 oz (73.8 kg) 154 lb 12.8 oz (70.2 kg) 155 lb 6.4 oz (70.5 kg) 146 lb 9.6 oz (66.5 kg) 147 lb (66.7 kg) 149 lb 4.8 oz (67.7 kg) 149 lb (67.6 kg) 148 lb (67.1 kg) 149 lb 7.6 oz (67.8 kg) Recent Labs: CBC: WBC (k/uL) Date Value 06/04/2023 6.02 05/04/2023 5.28 Hematocrit (%) Date Value 06/04/2023 37.9 MCV (fL) Date Value 06/04/2023 93.8 Platelet Count (k/uL) Date Value 06/04/2023 150 NEUT % (%) Date Value 03/13/2019 61.1 Lymphocytes % (%) Date Value 05/04/2023 42.4 Hepatic Function Panel: Albumin (g/dL) Date Value 09/20/2023 4.1 Bilirubin, Total (mg/dL) Date Value 09/20/2023 0.5 Bilirubin, Conjug (mg/dL) Date Value 09/26/2013 <0.2 Alkaline Phosphatase (U/L) Date Value 09/20/2023 68 AST (U/L) Date Value 09/20/2023 17 ALT (U/L) Date Value 09/20/2023 16 Protein, Total (g/dL) Date Value 09/20/2023 6.9 PHYSICAL EXAMINATION General Appearance: alert, oriented x 3, Eyes: No icterus or conjunctival pallor.. Oropharynx: dentition is poor with multiple missing teeth and some gingivitis Lungs: breath sounds clear to auscultation bilaterally Heart: regular rate and rhythm, no murmurs or gallops. Abdomen: Not distended. Normal bowel sounds. Soft, tender to deep palpation in LUQ No masses or organomegaly.surgical scars present Extremities: no cyanosis or edema. Skin: no rashes or lesions Lilo Banegas MD Gastroenterology, Hepatology & Nutrition Fellow, PGY 4 Digestive Diseases and Surgery [place] I saw and evaluated the patient with Lilo Banegas MD on 07/01/2024 and agree with the assessment and plan as outlined with the following exceptions: None. Type 2 SBS. Micronutrient deficiencies, malabsorption, and SIBO are primary symptoms currently. Will re-assess micronutrient labs and restart supplements, treat SIBO. Based on deficiency profile, options will likely be either individual prescriptions (some are covered) vs paying out of pocket for a high dose bariatric formulation that she could take once a day. From a practical perspective, the latter option may be more feasible even with the out of pocket cost. Encouraged her to reach out to us if she needs refills, has questions, increased symptoms, etc. She may need a short course of TPN especially if deficiencies are too much to make up with oral replacement and short gut. Shared visit with Marci Shahid RD. Vikki Elmore MD 07/01/2024 10:55 PM documented in this encounter [facility] 07-01-2024 Note HNO ID: [id number] Author: VIKKI ELMORE MD Service: ? Author Type: Physician Type: Progress Notes Filed: 07/01/2024 23:00 Note Text: Gastroenterology Clinic Department of Gastroenterology AND Hepatology Digestive Disease AND Surgery [place] Established Patient Visit NAME: Niurka Zhu CLINIC NO: [id number] REASON FOR VISIT: Follow up Last visit: 10/30/2023 Niurka Zhu is a 43 year old female with 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 Patient has since underwent STEP procedure 07/21/14 resulting in TPN independence; however was unable to maintain adequate electrolytes and nutrition. Underwent second STEP 09/07/16. Current anatomy: 78 cm of jejunum anastomosed to mid-transverse colon, no ICV, + rectum, +anus. She has had issues with SIBO, malabsorption, and continued IV electrolyte replacement. ISSUES AND PLAN: #) Short bowel syndrome with colon #) Intestinal malabsorption #) SIBO -Received extensive RD counseling today re: SBS with colon -ORS as beverage of choice -Re-start PERT with hx of malabsorption and YADI - Zenpep 25,000-79,000- 105,000 units (2 with meals, 1 with snacks) (did not tolerate creon before) -Restart flagyl #) Micronutrient deficiencies-Need to recheck all levels -Will decide on management based on levels, but will likely need VitB12 injections restarted along with DIANN -Reorder VitB12 monthly injections #Decreased energy #Dizziness #Blood per rectum -Recheck CBC, TSH, iron levels -will benefit from colonoscopy at some point soon Interval history: Patient was last seen 10/30/2023. She has then been lost to follow up. Reports that she has had a tough time at home and has not been taking any of her vitamins. Symptoms described: -Nearsighted vision difficulties and tunnel vision at night -Decreased appetite with no change in jennifer -dizziness and lightheadedness when standing up in morning, no falls or LOC, palpitations but no chest pain -5-6 BM (occasionally difficult to flush) with bad odor and increased bloating, occasional red blood per rectum and when wiping, denies melena -dental problems with fallen teeth and mouth ulcers, no hair problems -Dry skin, irritability, difficulty sleeping and low energy Weight: 08/01/22 15:03 08/07/22 19:07 10/02/22 12:53 03/08/23 10:15 04/07/23 13:58 05/04/23 06/04/23 06/08/23 09:11 06/21/23 07:44 01/21/24 12:30 Weight 157 lb (71.2 kg) 162 lb 9.6 oz (73.8 kg) 154 lb 12.8 oz (70.2 kg) 155 lb 6.4 oz (70.5 kg) 146 lb 9.6 oz (66.5 kg) 147 lb (66.7 kg) 149 lb 4.8 oz (67.7 kg) 149 lb (67.6 kg) 148 lb (67.1 kg) 149 lb 7.6 oz (67.8 kg) Recent Labs: CBC: WBC (k/uL) Date Value 06/04/2023 6.02 05/04/2023 5.28 Hematocrit (%) Date Value 06/04/2023 37.9 MCV (fL) Date Value 06/04/2023 93.8 Platelet Count (k/uL) Date Value 06/04/2023 150 NEUT % (%) Date Value 03/13/2019 61.1 Lymphocytes % (%) Date Value 05/04/2023 42.4 Hepatic Function Panel: Albumin (g/dL) Date Value 09/20/2023 4.1 Bilirubin, Total (mg/dL) Date Value 09/20/2023 0.5 Bilirubin, Conjug (mg/dL) Date Value 09/26/2013 <0.2 Alkaline Phosphatase (U/L) Date Value 09/20/2023 68 AST (U/L) Date Value 09/20/2023 17 ALT (U/L) Date Value 09/20/2023 16 Protein, Total (g/dL) Date Value 09/20/2023 6.9 PHYSICAL EXAMINATION General Appearance: alert, oriented x 3, Eyes: No icterus or conjunctival pallor.. Oropharynx: dentition is poor with multiple missing teeth and some gingivitis Lungs: breath sounds clear to auscultation bilaterally Heart: regular rate and rhythm, no murmurs or gallops. Abdomen: Not distended. Normal bowel sounds. Soft, tender to deep palpation in LUQ No masses or organomegaly.surgical scars present Extremities: no cyanosis or edema. Skin: no rashes or lesions Lilo Banegas MD Gastroenterology, Hepatology AND Nutrition Fellow, PGY 4 Digestive Diseases and Surgery [place] I saw and evaluated the patient with Lilo Banegas MD on 07/01/2024 and agree with the assessment and plan as outlined with the following exceptions: None. Type 2 SBS. Micronutrient deficiencies, malabsorption, and SIBO are primary symptoms currently. Will re-assess micronutrient labs and restart supplements, treat SIBO. Based on deficiency profile, options will likely be either individual prescriptions (some are covered) vs paying out of pocket for a high dose bariatric formulation that she could take once a day. From a practical perspective, the latter option may be more feasible even with the out of pocket cost. Encouraged her to reach out to us if she needs refills, has questions, increased symptoms, etc. She may need a short course of TPN especially if deficiencies are too much to make up with oral replaceme (more content not included)... [facility] 07-01-2024 Note Education (GGENMN) NIURKA ZHU ([id number]) 1980 F Date Time Provider Department 07/01/24 1:00 PM [facility] DIETITIAN GGENMN Reason for Visit: feeding difficulties [Other] Primary Visit Diagnosis:Feeding difficulties [R63.30] During your visit today, we recorded the following information about you: Allergies As of Date: 07/01/2024 Noted Allergy Reaction ADHESIVE 09/07/2016 2 - Rash 9 - Itching AMOXICILLIN 09/26/2011 4 - Hives PENICILLINS 09/26/2011 4 - Hives Date Reviewed: 07/01/2024 Reviewed by: Abdi Stephenson - Fully Assessed Prescriptions as of 07/01/2024 - pqemjp-xqqfkzcz-oacdmef (ZENPEP) 25,000-79,000- 105,000 unit delayed release capsule Take 2 with meals and 1 with snacks - metroNIDAZOLE (FLAGYL) 250 mg tablet Take 1 tablet by mouth three times a day for 10 days. - cyanocobalamin (VITAMIN B-12) 1,000 mcg/mL Inject 1 mL intramuscularly once every month. Then resume monthly 1 mL injections for 2 months. Administer at [facility] - Syringe with Needle, Disp, 3 mL 25 gauge x 1 1 Syringe once every month. One syringe as directed for Vitamin B12 injection as ordered. - naproxen (NAPROSYN) 500 mg tablet Take 1 tablet by mouth two times a day as needed (for pain/inflammation). Take with food. - Vitamin E, dl, acetate, (VITAMIN E) 400 unit capsule Take 1 capsule by mouth once daily. - ergocalciferol 50,000 unit capsule (VITAMIN D2, DRISDOL) Take 1 capsule by mouth three times a week. - magnesium lactate ER (MAGTAB) 84 mg TbER Take 2 pills three times daily after meals and 3 pills at bedtime for total of 9 pills/day. - cyanocobalamin 1,000 mcg/mL Inject 1 mL intramuscularly once every month. - iron polysaccharide complex (FERREX 150) 150 mg iron capsule Take 1 capsule by mouth once daily. - predniSONE (DELTASONE) 20 mg tablet 1 tablet 3 times daily for 3 days then 1 tablet twice daily for 2 days then 1 tablet daily for 2 days then half a tablet p.o. daily for 1 day - loperamide (IMODIUM A-D) 2 mg cap(s) Take 1 capsule by mouth before meals and at bedtime. - pyridoxine, vitamin B6, (VITAMIN B6) 50 mg tablet Take 2 tablets by mouth once daily. Meds Comments as of 11/21/2017: Probiotic daily, Vitamin E 400 unit daily Encounter Status:Closed by MARCI SHAHID on 07/01/24 [facility] 06-30-2024 Note HNO ID: [id number] Author: MARCI SHAHID RD Service: ? Author Type: Registered Dietitian Type: Progress Notes Filed: 07/01/2024 16:25 Note Text: Abstract moved to office visit with Dr. Elmore on 07/01/24. Marci Shahid RD [facility] 06-30-2024 History of Present illness Narrative Abstract moved to office visit with Dr. Elmore on 07/01/24. Marci Shahid RD documented in this encounter [facility] 01-21-2024 Note HNO ID: [id number] Author: MAYANK ARIZMENDI APRN.DIRECTOR OF GROUP SALES Service: ? Author Type: Nurse Practitioner Type: Progress Notes Filed: 01/21/2024 12:53 Note Text: [facility] CLINIC NOTE Subjective Niurka Zhu is a 43 year old year old who presents to [facility] today with complaint of Right upper tooth pain and facial swelling x2 days. Worsening from known broken tooth. Last treated for a tooth infection > 4 months ago per report. Denies headaches, fever, sore throat, cough, shortness of breath, chest pains, Nausea, vomiting, changes in bowel or bladder or skin rashes. Taking Tylenol and Ibuprofen as needed and this is not helping her symptoms. Aside from symptoms as described above, patient has no other complaints at this time. HPI: see above Review of Systems Constitutional: Negative for chills, fatigue and fever. HENT: Positive for facial swelling (Right cheek swelling). Negative for congestion, ear pain, postnasal drip, sinus pressure, sore throat and trouble swallowing. Known missing and broken teeth Eyes: Negative for pain, discharge and redness. Respiratory: Negative for cough, shortness of breath and wheezing. Cardiovascular: Negative for chest pain, palpitations and leg swelling. Gastrointestinal: Negative for diarrhea, nausea and vomiting. Genitourinary: Negative for dysuria, frequency and urgency. Skin: Negative for rash. Neurological: Negative for headaches. ALLERGIES Allergen Reactions Adhesive Rash, Itching Amoxicillin Hives Penicillins Hives Current Outpatient Medications on File Prior to Visit Medication Sig Vitamin E, dl, acetate, (VITAMIN E) 400 unit capsule Take 1 capsule by mouth once daily. ergocalciferol 50,000 unit capsule (VITAMIN D2, DRISDOL) Take 1 capsule by mouth three times a week. vit A-vit D3-vit E-vit K1 (DEKAS ESSENTIAL) 600 mcg-50 mcg- 101 mg-1,000mcg cap Take 1 capsule by mouth once daily. magnesium lactate ER (MAGTAB) 84 mg TbER Take 2 pills three times daily after meals and 3 pills at bedtime for total of 9 pills/day. Syringe with Needle, Disp, 3 mL 25 gauge x 1 1 Syringe once every month. One syringe as directed for Vitamin B12 injection as ordered. cyanocobalamin 1,000 mcg/mL Inject 1 mL intramuscularly once every month. kwcgdl-qokwnkci-amhtgpi (CREON) 24,000-76,000 -120,000 unit delayed release capsule Take 2 capsules by mouth with meals. Take 1 capsule by mouth with snack. Formulary substitute for Viokase. predniSONE (DELTASONE) 20 mg tablet 1 tablet 3 times daily for 3 days then 1 tablet twice daily for 2 days then 1 tablet daily for 2 days then half a tablet p.o. daily for 1 day loperamide (IMODIUM A-D) 2 mg cap(s) Take 1 capsule by mouth before meals and at bedtime. iron polysaccharide complex (FERREX 150) 150 mg iron capsule Take 1 capsule by mouth once daily. cyanocobalamin (VITAMIN B-12) 1,000 mcg/mL Inject 1 mL intramuscularly once every month. Then resume monthly 1 mL injections for 2 months. Administer at [facility] pyridoxine, vitamin B6, (VITAMIN B6) 50 mg tablet Take 2 tablets by mouth once daily. No current facility-administered medications on file prior to visit. 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 Intestinal Malabsorption Hypomagnesemia Surgery, Elective Moderate Protein Malnutrition (Hcc) Severe Protein-Calorie Malnutrition (Hcc) Protein C Deficiency (Hcc) Protein S Deficiency (Hcc) Hypertension, Essential Vitamin D Deficiency Vitamin B12 Deficiency Diarrhea Hypokalemia Social History Tobacco Use Smoking status: Former Current packs/day: 0.00 Average packs/day: 1.5 packs/day for 13.0 years (19.5 ttl pk-yrs) Types: Cigarettes Start date: 08/16/2000 Quit date: 08/16/2013 Years since quittin.4 Smokeless tobacco: Never Vaping Use Vaping status: current everyday user Substances: Nicotine Substance Use Topics Alcohol use: No Comment: currently does not drink Drug use: Yes Types: Marijuana Objective BP 138/84 Pulse 71 Temp 36.8 ?C (98.2 ?F) (Tympanic) Resp 18 Wt 67.8 kg (149 lb 7.6 oz) LMP 05/03/2023 (Approximate) SpO2 98% BMI 25.66 kg/m? Physical Exam Vitals reviewed. Constitutional: General: She is not in acute distress. Appearance: Normal appearance. She is not ill-appearing or toxic-appearing. HENT: Head: Normocephalic and atraumatic. Right Ear: Tympanic membrane, ear canal and external ear normal. Left Ear: Tympanic membrane, ear canal and external ear normal. Nose: Nose normal. Mouth/Throat: Mouth: Mucous membranes are moist. Dentition: Abnormal dentition (multiple broken/missing teeth). Dental tenderness and dental caries present. Pharynx: Oropharynx is clear. Uvula midline. No pharyngeal swelling or posterior oropharyngeal erythema. Comments: Right cheek, swollen and tender to touch, no swelling over parotid (more content not included)... [facility] 01-21-2024 History of Present illness Narrative Images from the original note were not included. [facility] CLINIC NOTE Subjective Niurka Zhu is a 43 year old year old who presents to [facility] today with complaint of Right upper tooth pain and facial swelling x2 days. Worsening from known broken tooth. Last treated for a tooth infection > 4 months ago per report. Denies headaches, fever, sore throat, cough, shortness of breath, chest pains, Nausea, vomiting, changes in bowel or bladder or skin rashes. Taking Tylenol and Ibuprofen as needed and this is not helping her symptoms. Aside from symptoms as described above, patient has no other complaints at this time. HPI: see above Review of Systems Constitutional: Negative for chills, fatigue and fever. HENT: Positive for facial swelling (Right cheek swelling). Negative for congestion, ear pain, postnasal drip, sinus pressure, sore throat and trouble swallowing. Known missing and broken teeth Eyes: Negative for pain, discharge and redness. Respiratory: Negative for cough, shortness of breath and wheezing. Cardiovascular: Negative for chest pain, palpitations and leg swelling. Gastrointestinal: Negative for diarrhea, nausea and vomiting. Genitourinary: Negative for dysuria, frequency and urgency. Skin: Negative for rash. Neurological: Negative for headaches. ALLERGIES Allergen Reactions Adhesive Rash, Itching Amoxicillin Hives Penicillins Hives Current Outpatient Medications on File Prior to Visit Medication Sig Vitamin E, dl, acetate, (VITAMIN E) 400 unit capsule Take 1 capsule by mouth once daily. ergocalciferol 50,000 unit capsule (VITAMIN D2, DRISDOL) Take 1 capsule by mouth three times a week. vit A-vit D3-vit E-vit K1 (DEKAS ESSENTIAL) 600 mcg-50 mcg- 101 mg-1,000mcg cap Take 1 capsule by mouth once daily. magnesium lactate ER (MAGTAB) 84 mg TbER Take 2 pills three times daily after meals and 3 pills at bedtime for total of 9 pills/day. Syringe with Needle, Disp, 3 mL 25 gauge x 1 1 Syringe once every month. One syringe as directed for Vitamin B12 injection as ordered. cyanocobalamin 1,000 mcg/mL Inject 1 mL intramuscularly once every month. xqqwrh-hhscwenz-ewlkxhy (CREON) 24,000-76,000 -120,000 unit delayed release capsule Take 2 capsules by mouth with meals. Take 1 capsule by mouth with snack. Formulary substitute for Viokase. predniSONE (DELTASONE) 20 mg tablet 1 tablet 3 times daily for 3 days then 1 tablet twice daily for 2 days then 1 tablet daily for 2 days then half a tablet p.o. daily for 1 day loperamide (IMODIUM A-D) 2 mg cap(s) Take 1 capsule by mouth before meals and at bedtime. iron polysaccharide complex (FERREX 150) 150 mg iron capsule Take 1 capsule by mouth once daily. cyanocobalamin (VITAMIN B-12) 1,000 mcg/mL Inject 1 mL intramuscularly once every month. Then resume monthly 1 mL injections for 2 months. Administer at [facility] pyridoxine, vitamin B6, (VITAMIN B6) 50 mg tablet Take 2 tablets by mouth once daily. No current facility-administered medications on file prior to visit. 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 Intestinal Malabsorption Hypomagnesemia Surgery, Elective Moderate Protein Malnutrition (Hcc) Severe Protein-Calorie Malnutrition (Hcc) Protein C Deficiency (Hcc) Protein S Deficiency (Hcc) Hypertension, Essential Vitamin D Deficiency Vitamin B12 Deficiency Diarrhea Hypokalemia Social History Tobacco Use Smoking status: Former Current packs/day: 0.00 Average packs/day: 1.5 packs/day for 13.0 years (19.5 ttl pk-yrs) Types: Cigarettes Start date: 08/16/2000 Quit date: 08/16/2013 Years since quittin.4 Smokeless tobacco: Never Vaping Use Vaping status: current everyday user Substances: Nicotine Substance Use Topics Alcohol use: No Comment: currently does not drink Drug use: Yes Types: Marijuana Objective BP 138/84 Pulse 71 Temp 36.8 C (98.2 F) (Tympanic) Resp 18 Wt 67.8 kg (149 lb 7.6 oz) LMP 05/03/2023 (Approximate) SpO2 98% BMI 25.66 kg/m Physical Exam Vitals reviewed. Constitutional: General: She is not in acute distress. Appearance: Normal appearance. She is not ill-appearing or toxic-appearing. HENT: Head: Normocephalic and atraumatic. Right Ear: Tympanic membrane, ear canal and external ear normal. Left Ear: Tympanic membrane, ear canal and external ear normal. Nose: Nose normal. Mouth/Throat: Mouth: Mucous membranes are moist. Dentition: Abnormal dentition (multiple broken/missing teeth). Dental tenderness and dental caries present. Pharynx: Oropharynx is clear. Uvula midline. No pharyngeal swelling or posterior oropharyngeal erythema. Comments: Right cheek, swollen and tender to touch, no swelling over parotid gland Right side Eyes: Extraocular Movements: Extraocular movements intact. Conjunctiva/sclera: Conjunctivae normal. Pupils: Pupils are equal, round, and reactive to light. Cardiovascular: Rate and Rhythm: Normal rate and regular rhythm. Pulses: Normal pulses. Heart sounds: Normal heart sounds. Pulmonary: Effort: Pulmonary effort is normal. Breath sounds: Normal breath sounds. Abdominal: General: Bowel sounds are normal. Palpations: Abdomen is soft. Musculoskeletal: Cervical back: Normal range of motion and neck supple. No tenderness. Lymphadenopathy: Cervical: No cervical adenopathy. Skin: General: Skin is warm and dry. Capillary Refill: Capillary refill takes less than 2 seconds. Neurological: Mental Status: She is alert and oriented to person, place, and time. Assessment/Plan 1. Dental infection - clindamycin (CLEOCIN) 300 mg capsule; Take 1 capsule by mouth two times a day for 7 days. Dispense: 14 capsule; Refill: 0 - naproxen (NAPROSYN) 500 mg tablet; Take 1 tablet by mouth two times a day as needed (for pain/inflammation). Take with food. Dispense: 28 tablet; Refill: 0 2. Antibiotic-induced yeast infection - fluconazole (DIFLUCAN) 150 mg tablet; Take 1 tablet by mouth one time only for 1 dose. Repeat in 3 days as needed. Dispense: 2 tablet; Refill: 0 -wait and see if this is needed before starting -to see DENTIST within three days, if not able to obtain appointment may call [phone] for a nearby dentist under insurance plan. Niurka verbalized agreement and understanding with the plan of care. Patient advised to drink fluids, get rest and take all meds as prescribed. Patient given educational materials - see instructions. Discussed use, benefit, and side effects of prescribed medications. All questions answered. Patient advised to follow up with PCP in one week, or sooner if symptoms worsen or persist. If symptoms become severe- GO TO ED. Patient verbalized understanding and agreeable with treatment plan. Mayank Arizmendi APRN, CNP 01/21/2024 12:44 PM documented in this encounter [facility] 10-30-2023 History of Present illness Narrative Images from the original note were not included. Patient was no-show for scheduled visit. 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 Patient has since underwent STEP procedure 07/21/14 resulting in TPN independence; however was unable to maintain adequate electrolytes and nutrition. Underwent second STEP 09/07/16. Current anatomy: 78 cm of jejunum anastomosed to mid-transverse colon, no ICV, + rectum, +anus. She has had issues with SIBO, malabsorption, and continued IV electrolyte replacement. ISSUES & PLAN: #) Short bowel syndrome with colon #) Intestinal malabsorption #) SIBO -Received extensive RD counseling today re: SBS with colon -ORS as beverage of choice -Re-start PERT with hx of malabsorption and YADI - Creon 24K - 2 with meals, 1 with snacks -Flagyl if recurrent diarrhea and SIBO suspected #) Hypomagnesemia #) Hypokalemia -Continue Mag Tab 2 tabs tid --> check levels -May benefit from switch to Mg Plus Protein +/- Epsom salt baths #) Micronutrient deficiencies -Consolidate to DIANN -Continue B12 injections monthly FOLLOW-UP: 2 months or sooner if needed Vikki Elmore MD 10/30/2023 Staff Party 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 30 capsule 5 ergocalciferol 50,000 unit capsule (VITAMIN D2, DRISDOL) Take 1 capsule by mouth three times a week. 12 capsule 5 vit A-vit D3-vit E-vit K1 (DEKAS ESSENTIAL) 600 mcg-50 mcg- 101 mg-1,000mcg cap Take 1 capsule by mouth once daily. 30 capsule 5 magnesium lactate ER (MAGTAB) 84 mg TbER Take 2 pills three times daily after meals and 3 pills at bedtime for total of 9 pills/day. 270 tablet 5 potassium chloride ER (KLOR-CON) 20 mEq tablet Take 1 tablet by mouth once daily. 30 tablet 0 Syringe with Needle, Disp, 3 mL 25 gauge x 1 1 Syringe once every month. One syringe as directed for Vitamin B12 injection as ordered. 3 Each 3 cyanocobalamin 1,000 mcg/mL Inject 1 mL intramuscularly once every month. 3 mL 3 qlfbxf-omnkywnt-tyvnafq (CREON) 24,000-76,000 -120,000 unit delayed release capsule Take 2 capsules by mouth with meals. Take 1 capsule by mouth with snack. Formulary substitute for Viokase. 240 capsule 2 iron polysaccharide complex (FERREX 150) 150 mg iron capsule Take 1 capsule by mouth once daily. 90 capsule 0 predniSONE (DELTASONE) 20 mg tablet 1 tablet 3 times daily for 3 days then 1 tablet twice daily for 2 days then 1 tablet daily for 2 days then half a tablet p.o. daily for 1 day 16 tablet 0 loperamide (IMODIUM A-D) 2 mg cap(s) Take 1 capsule by mouth before meals and at bedtime. 120 capsule 11 cephALEXin (KEFLEX) 500 mg capsule Take 1 capsule by mouth every 12 hours. (Patient not taking: Reported on 04/07/2023) Lluhrfmfzrudkha-Pqwpkecpb-ZO (BROMFED DM) 2-30-10 mg/5 mL syrup Take [...] meals. (Patient not taking: Reported on 08/07/2022) 71710 mL 2 enoxaparin (LOVENOX) 100 mg/mL syrg Inject 0.7 mL subcutaneously q 12 HR. (Patient not taking: Reported on 04/07/2023) 60 Syringe 5 HYDROcodone-acetaminophen (NORCO) 5-325 mg per tablet Take 1 tablet by mouth every 8 hours as needed for pain. (Patient not taking: Reported on 07/02/2022) 12 tablet 0 oxyCODONE-acetaminophen (PERCOCET) 5-325 mg tablet Take 1 tablet by mouth every 4 hours as needed for pain. (Patient not taking: Reported on 10/20/2021) 6 tablet 0 Syringe with Needle, Disp, 3 mL 22 [...] taking: Reported on 08/07/2022) 120 tablet 2 pyridoxine, vitamin B6, (VITAMIN B6) 50 [...] No current facility-administered medications for this visit. ALLERGIES: ALLERGIES Allergen Reactions Adhesive Rash, Itching Amoxicillin Hives Penicillins Hives PAST MEDICAL/SURGICAL HISTORY, SOCIAL HISTORY, AND FAMILY HISTORY: Reviewed and is unchanged aside from the changes documented in HPI. REVIEW OF SYSTEMS: ROS completed and negative outside of the systems documented in the HPI. INVESTIGATIONS: Latest Ref Rng 06/04/2023 06/21/2023 Protein, Total 6.3 - 8.0 g/dL 6.3 Albumin 3.9 - 4.9 g/dL 4.0 Calcium 8.5 - 10.2 mg/dL 8.9 9.8 Bilirubin, Total 0.2 - 1.3 mg/dL 0.6 Alkaline Phosphatase 34 - 123 U/L 82 AST 13 - 35 U/L 25 ALT 7 - 38 U/L 23 Glucose 74 - 99 mg/dL 89 93 BUN 7 - 21 mg/dL 12 10 Creatinine 0.58 - 0.96 mg/dL 0.73 0.67 Sodium 136 - 144 mmol/L 140 138 Potassium 3.7 - 5.1 mmol/L 3.9 3.8 Chloride 97 - 105 mmol/L 104 102 CO2 22 - 30 mmol/L 26 25 Anion Gap 9 - 18 mmol/L 10 11 eGFR >=60 mL/min/1.73m 105 112 WBC 3.70 - 11.00 k/uL 6.02 RBC 3.90 - 5.20 m/uL 4.04 Hemoglobin 11.5 - 15.5 g/dL 12.3 Hematocrit 36.0 - 46.0 % 37.9 MCV 80.0 - 100.0 fL 93.8 MCH 26.0 - 34.0 pg 30.4 MCHC 30.5 - 36.0 g/dL 32.5 RDW-CV 11.5 - 15.0 % 12.9 Platelet Count 150 - 400 k/uL 150 MPV 9.0 - 12.7 fL 10.8 Absolute nRBC <0.01 k/uL <0.01 Iron 41 - 186 ug/dL 27 (L) TIBC 232 - 386 ug/dL 316 Transferrin Saturation 15.0 - 57.0 % 8.5 (L) Vitamin E-alpha 6.0 - 23.0 mg/L 4.5 (L) Vitamin E-gamma 0.3 - 3.2 mg/L 0.5 Magnesium 1.7 - 2.3 mg/dL 1.2 (L) 1.4 (L) Phosphorus 2.7 - 4.8 mg/dL 2.6 (L) 3.7 Vitamin A 0.30 - 1.20 mg/L 0.16 (L) Vitamin B12 232 - 1,245 pg/mL <150 (L) Vitamin B6, Plasma 20.0 - 125.0 nmol/L 42.6 Vitamin D 25 Hydroxy 31.0 - 80.0 ng/mL 20.4 (L) Methylmalonic Acid <=0.40 umol/L 5.48 (H) Zinc 60 - 120 ug/dL 63 Ferritin 14.7 - 205.1 ng/mL 71.4 Copper 80 - 155 ug/dL 66 (L) Legend: (L) Low (H) Highertinent interval investigations were reviewed and were notable for: CTAP : IMPRESSION: Diffuse colonic dilation and dilation of the small bowel at the surgical anastomosis. RESULT: Liver: No mass. Biliary: No bile duct dilation. Spleen: No mass. No splenomegaly. Pancreas: No mass or duct dilation. Adrenals: No mass. Kidneys: No hydronephrosis. GI tract: Post partial colectomy and small bowel resection. Dilated segment of small bowel at the anastomosis, likely secondary to denervation. There is diffuse colonic dilation to the level of the lower rectum. No transition identified. Lymph nodes: No abdominal or pelvic lymphadenopathy. Mesentery/Peritoneum: No ascites or mass. Retroperitoneum: No mass. Vasculature: Mild atherosclerotic changes of the abdominal aorta and its branches. Pelvis: IUD in the uterus. Tampon in the vagina. Bones/Soft Tissues: No significant finding. Lower thorax: Unremarkable. Clinical Trials Nurse (topogram) images: No additional findings. PHYSICAL EXAM: Total time spent on this patient encounter today was > mins including: preparation for the visit, review and interpretation of records, direct discussion with the patient, physical examination, documentation, and co-ordination of care. I have communicated my name and active licensure. The patient's identity and physical location were verified at the time of this visit. Either the patient or their legal corporate sales representative has been informed of the risks and benefits of -- and alternatives to -- treatment through a remote evaluation and consents to proceed with the evaluation remotely. Patient consented to video visit. documented in this encounter [facility] 10-03-2023 Telephone encounter Note I have reviewed the dosage, timing and amount of medication to be dispensed. I approve this prescription to be reviewed and signed by a Nutrition Support physician. Physician: Dr. Elmore New prescription for potassium d/t low lab. DIANN, vitamin D, E and magnesium refills generated. Follow-up lab orders included in this encounter. Please E-Scribe Requested Prescriptions Pending Prescriptions Disp Refills Vitamin E, dl, acetate, (VITAMIN E) 400 unit capsule 30 capsule 5 Sig: Take 1 capsule by mouth once daily. ergocalciferol 50,000 unit capsule (VITAMIN D2, DRISDOL) 12 capsule 5 Sig: Take 1 capsule by mouth three times a week. vit A-vit D3-vit E-vit K1 (DEKAS ESSENTIAL) 600 mcg-50 mcg- 101 mg-1,000mcg cap 30 capsule 5 Sig: Take 1 capsule by mouth once daily. magnesium lactate ER (MAGTAB) 84 mg TbER 270 tablet 5 Sig: Take 2 pills three times daily after meals and 3 pills at bedtime for total of 9 pills/day. potassium chloride ER (KLOR-CON) 20 mEq tablet 30 tablet 0 Sig: Take 1 tablet by mouth once daily. Mara Prather RD [facility] 10-03-2023 Miscellaneous Notes I have reviewed the dosage, timing and amount of medication to be dispensed. I approve this prescription to be reviewed and signed by a Nutrition Support physician. Physician: Dr. Elmore New prescription for potassium d/t low lab. DIANN, vitamin D, E and magnesium refills generated. Follow-up lab orders included in this encounter. Please E-Scribe Requested Prescriptions Pending Prescriptions Disp Refills Vitamin E, dl, acetate, (VITAMIN E) 400 unit capsule 30 capsule 5 Sig: Take 1 capsule by mouth once daily. ergocalciferol 50,000 unit capsule (VITAMIN D2, DRISDOL) 12 capsule 5 Sig: Take 1 capsule by mouth three times a week. vit A-vit D3-vit E-vit K1 (DEKAS ESSENTIAL) 600 mcg-50 mcg- 101 mg-1,000mcg cap 30 capsule 5 Sig: Take 1 capsule by mouth once daily. magnesium lactate ER (MAGTAB) 84 mg TbER 270 tablet 5 Sig: Take 2 pills three times daily after meals and 3 pills at bedtime for total of 9 pills/day. potassium chloride ER (KLOR-CON) 20 mEq tablet 30 tablet 0 Sig: Take 1 tablet by mouth once daily. Mara Prather RD documented in this encounter [facility] 10-02-2023 Telephone encounter Note Reviewed remaining result. Vitamin B12 status is okay. Again attempted to call patient and unable to leave as mailbox is full. Of note patient has not checked her [employer] message either. Of note next clinic visit is 11/03/23. Did call her patient contact mother and spoke with her, she will have Niurka call us back and let her know that her voicemail is full. Will await call back. GAL Neal RD, [facility], [facility] ; [facility] Work Phone: 10-02-2023 Miscellaneous Notes Reviewed remaining result. Vitamin B12 status is okay. Again attempted to call patient and unable to leave as mailbox is full. Of note patient has not checked her [employer] message either. Of note next clinic visit is 11/03/23. Did call her patient contact mother and spoke with her, she will have Niurka call us back and let her know that her voicemail is full. Will await call back. Savanah Toro RD, GAL, [facility], [facility] ; Patient: NIURKA ZHU ([id number]) Female, Age: 43; Active Group: IRP and Transplant; IRP MD: VIKKI ELMORE MD; IRTP Encounter: 08/30/2023 Lab Result Details: Lab Info Patient Name: NIURKA ZHU Clinic ID: [id number] HPN Episode Start Date: IRP Encounter Date: 08/30/2023 Lab Collected Date: 09/20/2023 Recorded Date: 09/24/2023 Lab Source: Lab Phone: Lab Collected 09/20/2023 MMA (nmol/L): 0.27 Potassium and magnesium low. In virtual visit last month, patient taking 2 tabs of mag after meals (6 per day), no potassium ordered. Vitamin A, E and D low. Pt was instructed to start DEKAPLus. Also taking vitamin D twice weekly. MMA still pending. Attempted to call patient however unable to leave message. message sent to call office. REcommendations: Vitamin & Mineral Supplements: - Ensure patient started DEKAs essential daily - unsure if she will get covered - if started ok to hold other fat soluble vitamins. - Vitamin A 10,000 units daily - has not started - PA denied - Vitamin B12 injections monthly - used x 1 month - needs 12 month Rx - currently on Vitamin D2 50,000 units 2x/week, increase to 3 x week if not started DEKAsPLUS - Vitamin E 400 units daily will need increased to twice daily if not started DEKAs - Calcium Carbonate 1,000 mg daily taking PRN, resume TID to prevent kidney stones - Iron polysaccharide daily - Copper Gluconate 2 mg 1 capsule daily Oral Electrolyte Repletion - Increase Mag tab 2 tabs after meals (6 per day) to additional 3 at bedtime (9 daily) - Start potassium 20 mEq daily. Recheck levels in 2 weeks. Await call back to discuss above plan. Comfort Eller RD Patient: NIURKA ZHU ([id number]) Female, Age: 43; Active Group: IRP and Transplant; IRP MD: VIKKI ELMORE MD; IRTP Encounter: 08/30/2023 Lab Result Details: Lab Info Patient Name: NIURKA ZHU Clinic ID: [id number] HPN Episode Start Date: IRP Encounter Date: 08/30/2023 Lab Collected Date: 09/20/2023 Recorded Date: 09/24/2023 Lab Source: Lab Phone: Lab Collected 09/20/2023 Na (mEq): 139 (136-144) K (mEq): 3.4 (L: 3.7-5.1) Cl (mEq): 104 (97-105) CO2 (mmol/L): 27 (22-30) BUN (mg/dL): 8 (7-21) Creatinine (mg/dL): 0.62 (0.58-0.96) Glucose (mg/dL): 76 (74-99) Calcium (mg/dL): 9.5 (8.5-10.2) Total Protein (g/dL): 6.9 (6.3-8) ALT (U/L): 16 (7-38) Alb (g/dL): 4.1 (3.9-4.9) AST (SGOT, U/L): 17 (13-35) Alk Phos (g/dL): 68 (34-123) Total Bili (mg/dL): 0.5 (0.2-1.3) Mg (mg/dL): 1.2 (L: 1.7-2.3) PO4 (mg/dL): 3.2 (2.7-4.8) Vitamin A (ug/dL): 0.2 (L: 0.3-1.2) Vitamin E (ug/dL): 3.9 (L: 6-23) Vitamin D 25 (ng/dL): 14.2 (L: 31-80) Vitamin B12 (pg/mL): 284 (232-1245) In process: MMA documented in this encounter [facility] 10-02-2023 Telephone encounter Note Patient: NIURKA ZHU ([id number]) Female, Age: 43; Active Group: IRP and Transplant; IRP MD: VIKKI ELMORE MD; IRTP Encounter: 08/30/2023 Lab Result Details: Lab Info Patient Name: NIURKA ZHU Clinic ID: [id number] HPN Episode Start Date: IRP Encounter Date: 08/30/2023 Lab Collected Date: 09/20/2023 Recorded Date: 09/24/2023 Lab Source: Lab Phone: Lab Collected 09/20/2023 MMA (nmol/L): 0.27 [facility] 09-25-2023 Telephone encounter Note Potassium and magnesium low. In virtual visit last month, patient taking 2 tabs of mag after meals (6 per day), no potassium ordered. Vitamin A, E and D low. Pt was instructed to start DEKAPLus. Also taking vitamin D twice weekly. MMA still pending. Attempted to call patient however unable to leave message. message sent to call office. REcommendations: Vitamin & Mineral Supplements: - Ensure patient started DEKAs essential daily - unsure if she will get covered - if started ok to hold other fat soluble vitamins. - Vitamin A 10,000 units daily - has not started - PA denied - Vitamin B12 injections monthly - used x 1 month - needs 12 month Rx - currently on Vitamin D2 50,000 units 2x/week, increase to 3 x week if not started DEKAsPLUS - Vitamin E 400 units daily will need increased to twice daily if not started DEKAs - Calcium Carbonate 1,000 mg daily taking PRN, resume TID to prevent kidney stones - Iron polysaccharide daily - Copper Gluconate 2 mg 1 capsule daily Oral Electrolyte Repletion - Increase Mag tab 2 tabs after meals (6 per day) to additional 3 at bedtime (9 daily) - Start potassium 20 mEq daily. Recheck levels in 2 weeks. Await call back to discuss above plan. Comfort Eller RD [facility] Work Phone: 09-24-2023 Telephone encounter Note Patient: NIURKA ZHU ([id number]) Female, Age: 43; Active Group: IRP and Transplant; IRP MD: VIKKI ELMORE MD; IRTP Encounter: 08/30/2023 Lab Result Details: Lab Info Patient Name: NIURKA ZHU Clinic ID: [id number] HPN Episode Start Date: IRP Encounter Date: 08/30/2023 Lab Collected Date: 09/20/2023 Recorded Date: 09/24/2023 Lab Source: Lab Phone: Lab Collected 09/20/2023 Na (mEq): 139 (136-144) K (mEq): 3.4 (L: 3.7-5.1) Cl (mEq): 104 (97-105) CO2 (mmol/L): 27 (22-30) BUN (mg/dL): 8 (7-21) Creatinine (mg/dL): 0.62 (0.58-0.96) Glucose (mg/dL): 76 (74-99) Calcium (mg/dL): 9.5 (8.5-10.2) Total Protein (g/dL): 6.9 (6.3-8) ALT (U/L): 16 (7-38) Alb (g/dL): 4.1 (3.9-4.9) AST (SGOT, U/L): 17 (13-35) Alk Phos (g/dL): 68 (34-123) Total Bili (mg/dL): 0.5 (0.2-1.3) Mg (mg/dL): 1.2 (L: 1.7-2.3) PO4 (mg/dL): 3.2 (2.7-4.8) Vitamin A (ug/dL): 0.2 (L: 0.3-1.2) Vitamin E (ug/dL): 3.9 (L: 6-23) Vitamin D 25 (ng/dL): 14.2 (L: 31-80) Vitamin B12 (pg/mL): 284 (232-1245) In process: MMA [facility] 08-30-2023 History of Present illness Narrative SMALL BOWEL DISEASES AND NUTRITION FOLLOW-UP VISIT Date of direct communication: 08/30/2023 - Patient's camera broken on her phone, had to do a telephone visit. 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 Patient has since underwent STEP procedure 07/21/14 resulting in TPN independence; however was unable to maintain adequate electrolytes and nutrition. Underwent second STEP 09/07/16. Current anatomy: 78 cm of jejunum anastomosed to mid-transverse colon, no ICV, + rectum, +anus. She has had issues with SIBO, malabsorption, and continued IV electrolyte replacement. ISSUES & PLAN: #) Short bowel syndrome with colon #) Intestinal malabsorption #) SIBO -Received extensive RD counseling today re: SBS with colon -ORS as beverage of choice -Re-start PERT with hx of malabsorption and YADI - Creon 24K - 2 with meals, 1 with snacks -Flagyl if recurrent diarrhea and SIBO suspected #) Hypomagnesemia #) Hypokalemia -Continue Mag Tab 2 tabs tid --> check levels -May benefit from switch to Mg Plus Protein +/- Epsom salt baths #) Micronutrient deficiencies -Consolidate to DIANN -Continue B12 injections monthly FOLLOW-UP: 2 months or sooner if needed Vikki Elmore MD 08/30/2023 Staff 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 About 50% Drip Drop -3 BM's yesterday; vary from putty to watery. No blood. -Good urine output, pale to mild yellow -Took Flagyl for diarrhea, and this was very helpful -Leg cramps, wonders if she is Mg deficient -Taking Mag Tab SR 2 tabs tid -Stopped Imodium because it worsened sharp abdominal pain -Metamucil gives a lot of gas and bloat -Taking vitamin D and E. Only took 1 B12 injection -Blurry vision, not taking A yet CURRENT NUTRITION SUPPORT: None Weight history: 139 lbs Last Wt 06/21/23 : 67.1 kg (148 lb) 06/08/23 : 67.6 kg (149 lb) 06/04/23 : 67.7 kg (149 lb 4.8 oz) 05/04/23 : 66.7 kg (147 lb) 04/07/23 : 66.5 kg (146 lb 9.6 oz) CURRENT MEDICATIONS: Current Outpatient Medications Medication Sig Dispense Refill Syringe with Needle, Disp, 3 mL 25 gauge x 1 1 Syringe once every month. One syringe as directed for Vitamin B12 injection as ordered. 3 Each 0 vitamin A (AQUASOL A) 10,000 unit capsule Take 1 capsule by mouth once daily. 90 capsule 0 ergocalciferol 50,000 unit capsule (VITAMIN D2, DRISDOL) Take 1 capsule by mouth two times a week. 24 capsule 0 Vitamin E, dl, acetate, (VITAMIN E) 400 unit capsule Take 1 capsule by mouth once daily. 90 capsule 0 cyanocobalamin 1,000 mcg/mL Inject 1 mL intramuscularly once every month. 3 mL 0 iron polysaccharide complex (FERREX 150) 150 mg iron capsule Take 1 capsule by mouth once daily. 90 capsule 0 predniSONE (DELTASONE) 20 mg tablet 1 tablet 3 times daily for 3 days then 1 tablet twice daily for 2 days then 1 tablet daily for 2 days then half a tablet p.o. daily for 1 day 16 tablet 0 loperamide (IMODIUM A-D) 2 mg cap(s) Take 1 capsule by mouth before meals and at bedtime. 120 capsule 11 cephALEXin (KEFLEX) 500 mg capsule Take 1 capsule by mouth every 12 hours. (Patient not taking: Reported on 04/07/2023) Betnoiggxpvmjgt-Oxzpwkpxo-LJ (BROMFED DM) 2-30-10 mg/5 mL syrup Take [...] meals. (Patient not taking: Reported on 08/07/2022) 71231 mL 2 enoxaparin (LOVENOX) 100 mg/mL syrg Inject 0.7 mL subcutaneously q 12 HR. (Patient not taking: Reported on 04/07/2023) 60 Syringe 5 HYDROcodone-acetaminophen (NORCO) 5-325 mg per tablet Take 1 tablet by mouth every 8 hours as needed for pain. (Patient not taking: Reported on 07/02/2022) 12 tablet 0 oxyCODONE-acetaminophen (PERCOCET) 5-325 mg tablet Take 1 tablet by mouth every 4 hours as needed for pain. (Patient not taking: Reported on 10/20/2021) 6 tablet 0 Syringe with Needle, Disp, 3 mL 22 [...] No current facility-administered medications for this visit. ALLERGIES: ALLERGIES Allergen Reactions Adhesive Rash, Itching Amoxicillin Hives Penicillins Hives PAST MEDICAL/SURGICAL HISTORY, SOCIAL HISTORY, AND FAMILY HISTORY: Reviewed and is unchanged aside from the changes documented in HPI. REVIEW OF SYSTEMS: ROS completed and negative outside of the systems documented in the HPI. INVESTIGATIONS: All available p Latest Ref Rng 06/04/2023 06/21/2023 Protein, Total 6.3 - 8.0 g/dL 6.3 Albumin 3.9 - 4.9 g/dL 4.0 Calcium 8.5 - 10.2 mg/dL 8.9 9.8 Bilirubin, Total 0.2 - 1.3 mg/dL 0.6 Alkaline Phosphatase 34 - 123 U/L 82 AST 13 - 35 U/L 25 ALT 7 - 38 U/L 23 Glucose 74 - 99 mg/dL 89 93 BUN 7 - 21 mg/dL 12 10 Creatinine 0.58 - 0.96 mg/dL 0.73 0.67 Sodium 136 - 144 mmol/L 140 138 Potassium 3.7 - 5.1 mmol/L 3.9 3.8 Chloride 97 - 105 mmol/L 104 102 CO2 22 - 30 mmol/L 26 25 Anion Gap 9 - 18 mmol/L 10 11 eGFR >=60 mL/min/1.73m 105 112 WBC 3.70 - 11.00 k/uL 6.02 RBC 3.90 - 5.20 m/uL 4.04 Hemoglobin 11.5 - 15.5 g/dL 12.3 Hematocrit 36.0 - 46.0 % 37.9 MCV 80.0 - 100.0 fL 93.8 MCH 26.0 - 34.0 pg 30.4 MCHC 30.5 - 36.0 g/dL 32.5 RDW-CV 11.5 - 15.0 % 12.9 Platelet Count 150 - 400 k/uL 150 MPV 9.0 - 12.7 fL 10.8 Absolute nRBC <0.01 k/uL <0.01 Iron 41 - 186 ug/dL 27 (L) TIBC 232 - 386 ug/dL 316 Transferrin Saturation 15.0 - 57.0 % 8.5 (L) Vitamin E-alpha 6.0 - 23.0 mg/L 4.5 (L) Vitamin E-gamma 0.3 - 3.2 mg/L 0.5 Magnesium 1.7 - 2.3 mg/dL 1.2 (L) 1.4 (L) Phosphorus 2.7 - 4.8 mg/dL 2.6 (L) 3.7 Vitamin A 0.30 - 1.20 mg/L 0.16 (L) Vitamin B12 232 - 1,245 pg/mL <150 (L) Vitamin B6, Plasma 20.0 - 125.0 nmol/L 42.6 Vitamin D 25 Hydroxy 31.0 - 80.0 ng/mL 20.4 (L) Methylmalonic Acid <=0.40 umol/L 5.48 (H) Zinc 60 - 120 ug/dL 63 Ferritin 14.7 - 205.1 ng/mL 71.4 Copper 80 - 155 ug/dL 66 (L) Legend: (L) Low (H) Highertinent interval investigations were reviewed and were notable for: CTAP : IMPRESSION: Diffuse colonic dilation and dilation of the small bowel at the surgical anastomosis. RESULT: Liver: No mass. Biliary: No bile duct dilation. Spleen: No mass. No splenomegaly. Pancreas: No mass or duct dilation. Adrenals: No mass. Kidneys: No hydronephrosis. GI tract: Post partial colectomy and small bowel resection. Dilated segment of small bowel at the anastomosis, likely secondary to denervation. There is diffuse colonic dilation to the level of the lower rectum. No transition identified. Lymph nodes: No abdominal or pelvic lymphadenopathy. Mesentery/Peritoneum: No ascites or mass. Retroperitoneum: No mass. Vasculature: Mild atherosclerotic changes of the abdominal aorta and its branches. Pelvis: IUD in the uterus. Tampon in the vagina. Bones/Soft Tissues: No significant finding. Lower thorax: Unremarkable. Clinical Trials Nurse (topogram) images: No additional findings. PHYSICAL EXAM: Unable to do with telephone visit. Total time spent on this patient encounter today was >45 mins including: preparation for the visit, review and interpretation of records, direct discussion with the patient, physical examination, documentation, and co-ordination of care. I have communicated my name and active licensure. The patient's identity and physical location were verified at the time of this visit. Either the patient or their legal corporate sales representative has been informed of the risks and benefits of -- and alternatives to -- treatment through a remote evaluation and consents to proceed with the evaluation remotely. Patient consented to video visit. 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 Patient has since underwent STEP procedure 07/21/14 resulting in PN independence; however was unable to maintain adequate electrolytes and nutrition. Underwent second STEP 09/07/16. She was lost to follow up and re-established care 05/2023. She was last seen 05/2023, at that time she reported fatigue, dizziness, WARE, overall feeling unwell. She was provided diet education, ORS recs, imodium restarted, and Flagyl ordered for suspected SIBO. Today, pt did not join visit initially. Dr Elmore called pt who answered, reported camera is not working, brief visit completed via speaker phone. Intestinal Surgical History: 09/07/2016: STEP x 7, L ovarian cystectomy, VHR, EBTHANY, bilateral separation of component 07/21/14: STEP 09/15/13: Ex lap, washout, takedown of endo jejunostomy, jejunocolostomy. 08/31/13: Ex lap, abdominal washout, biopsy of the lateral segment of the liver, and abdominal closure. 08/27/13: Ex lap, total enterectomy, right hemicolectomy, end jejunostomy Intestinal Anatomy: Per Surgical history: Intact stomach, duodenum (?), 78 cm of jejunum anastomosed to mid-transverse colon, no ICV, + rectum, +anus. Co-morbidities: HPN (08/2013 - 11/2014) 08/23/20 CT Ab: Liver diffusely hypodense consistent with fatty liver; Liver Bx 08/2013 showed portal and lobular inflammation, cholestasis and rare neutrophils within bile ducts Hypercoagable (Protein C & S defn) - on Lovenox Hx of DVT Hx of SMA thrombosis Depression; in homeless residential (03/05/19-11/2019) Bone Scan: 02/06/2016 z-score: -1.1 wiithin expected range for age Lack of social support Nephrolithiasis Resumed smoking (tobacco cigarettes 0.5-1 pk/day) Intake: Appetite is great. She follows a low sugar, moderate fat, high starch diet taking 3 meals and snacks. She drinks ~ 2 L of fluid daily, some coming from drip drop, mainly hypotonic fluids. She does not take ONS. Suspect intake is <75% of estimated needs for > 1 month given significant weight loss. Diet Recall: previous recall used due to time constraints with updates B: blueberry mini muffins, 1 c coffee S: breakfast sandwich - jorge/egg/cheese L: Slide pizza and ho-ho's D: cheese burger and fries Snacks: wheat thins w/cheese, cottage cheese Beverages: 2 c coffee, [address] Pepper, 2 bottle water, 1-3 packets drip drop ONS: none Output: Urine output is fine, pale yellow sometimes a little darker. Stopped Imodium d/t abdominal cramping/pain. Having ~3 BMs most days, pudding like consistency. Denies current ssx of SIBO. Denies oily/greasy stools. Relation to food not discussed. Prior response to CGRT therapy: ORS: Aiming to take more G2 with salt; takes some drip drop daily Benefiber: Not taking; previously taking 3 tbsp daily or 1 tbsp per day Imodium: Not taking, stays way from Imodium due to hx of GI bleeding; started taking for 1 week and experienced bleeding from bowels, stopped taking and bleeding subsided; prior to surgery was taking 4 mg ACHS; helped to slow down output, currently not taking Lomotil: Not taking; previously 1.5 mg before meals and bed; stopped due to stomach pain Codeine: Not used Tincture of Opium: Not used Pancreatic Enzymes: Not taking; did not tolerate Creon; prior to surgery was taking Zenpep 1 cap with meals Probiotics: Not taking; previously took Align once daily; helps with gas/bloating Antimicrobials for SIBO: Previously on Flagyl- makes a difference; Cipro- doesn't remember taking; Rifaxamin 550 mg TID x 14 days- may have worked; Flagyl helped 05/2023 Antisecretory: Previously tolerated 600 mcg Octreotide via PN Bile acid binding resin: Was prescribed but never tried following Imodium rx; similar hx of being prescribed at one point, but never used and then was discontinued Growth Hormone: Not used GLP2: was given a packet of information in the past, off PN not eligible IV Iron Infusions: Blood Management rec'd Iron Sucrose x 4 on 04/17/2019; h/o iron infusions at [facility] per patient report; h/o heavy menstrual periods per patient report Laboratory: Lab Collected Date 06/21/2023 06/04/2023 Na (mEq) 138 140 K (mEq) 3.8 3.9 Cl (mEq) 102 104 CO2 (mmol/L) 25 26 BUN (mg/dL) 10 12 Creatinine (mg/dL) 0.67 0.73 Glucose (mg/dL) 93 89 Calcium (mg/dL) 9.8 8.9 Total Protein (g/dL) 6.3 Alb (g/dL) 4 AST (SGOT, U/L) 25 Alk Phos (g/dL) 82 Total Bili (mg/dL) 0.6 ALT (U/L) 23 Mg (mg/dL) 1.4? 1.2? PO4 (mg/dL) 3.7 2.6? WBC (K/uL) 6.02 Hgb (g/dL) 12.3 Hct (%) 37.9 MCV (fL) 93.8 RDW (%) 12.9 Platelet (K/uL) 150 Vitamin A (ug/dL) 0.16? Vitamin E (ug/dL) 4.5? Vitamin D 25 (ng/mL) 20.4? Vitamin B6 (ug/L) 42.6 Vitamin B12 (pg/mL) 0? Folate (ng/mL) Serum Iron (ug/dL) 27? Transferrin Saturat (%) 8.5? Ferritin (mg/dL) 71.4 TIBC (ug/dL) 316 Zinc (ug/dL) 63 Copper (ug/dL) 66? MMA (nmol/L) 5.48? Medications: I have reviewed allergies and medications. PAST MEDICAL HISTORY Diagnosis Date Back pain [...] PARTIAL COLECTOMY W/ANASTOMOSIS 09/15/13 REMOVAL GALLBLADDER 2003 Anthropometrics: Height: 5' 4 (162.6 cm) Weight: 139 lb (08/30/23 - self reported);149 lb (06/04/23) 73.5 kg /161lbs (02/07/21) 73kg (ED visit 08/23/20) 74.5 kg (164 lb) (11/23/2019) Usual weight: 145-149 lb per pt Goal weight: 150-155lbs (as discussed 06/04/2023) BMI 23.9 kg/m2 - normal Weight has decreased by ~10 lbs/6.7% over 3 months which is significant however does not meet criteria for malnutrition dx. Estimated Daily Nutritional Needs: needs increased due to SBS malabsorption 1580 - 2215 kcals/day = 25 - 35 kcals/kg dosing weight 82 - 107 g protein/day = 1.3-1.7 g/kg dosing weight Nutrition Focused Physical Exam: Unable to perform exam due to: virtual visit. Will re-attempt during next in person office visit reassessment. Edema: No Functional status: Unable to assess Potential Signs of Inflammation: unable to determine at this time Potential micronutrient deficiency revealed in Unable to determine at this time ASSESSMENT OF MALNUTRITION: MILD PROTEIN-CALORIE MALNUTRITION In the context of Chronic Illness or Injury based on: Insufficient Energy Intake: Less than or equal to 75% energy intake compared to estimated needs for greater than or equal to 1 month Overall Assessment: Feeding Difficulty Hx of SMA thrombosis Short Bowel Syndrome Malabsorption of electrolytes and fluid S/p STEP x2 Recurrent Small Intestinal Bacterial Overgrowth Suspected fat malabsorption Hx of iron deficiency anemia requiring IV infusions Hx of significant vitamin and mineral deficiencies CGRT Recommendations: Diet: Continue High starch, High salt, low sugar diet with multiple small meals daily as able. Avoid high fat foods. Handout provided Fiber: Can trial Citrucel - Dr Elmore discussed briefly Oral Rehydration Solution (ORS): Continue drip drop, recommended increasing ORS intake and reducing hypotonic fluid intake Vitamin & Mineral Supplements: - START DEKAs essential daily - unsure if she will get covered - if covered, can hold other fat soluble vits when starting - Vitamin A 10,000 units daily - has not started - PA denied - Vitamin B12 injections monthly - used x 1 month - needs 12 month Rx - Vitamin D2 50,000 units 2x/week - Vitamin E 400 units daily - Calcium Carbonate 1,000 mg daily taking PRN, resume TID to prevent kidney stones - Iron polysaccharide daily - Copper Gluconate 2 mg 1 capsule daily Oral Electrolyte Repletion - Continue Mag tab 2 tabs after meals (6 per day) PERT: - START ZenPep 40,000 lipase units 1 cap with meals and snacks - 4 caps per day to start Antidiarrheal medications - Can continue to hold imodium d/t cramping Labs: (WHAT) CMP, Mg, Phos, vitamins A, D, E, B12, MMA (WHEN) due 1-2 weeks (WHERE) Orders in EPIC; Coordinator to enter into IRP Database only Patient Group: CGRT Follow Up: Return to clinic in [address] Elmore and LIZZY. Signed by: Holly Burroughs RD, [facility] Date: August 30, 2023 [facility] STAFF PHYSICIAN NOTE OF PERSONAL INVOLVEMENT IN CARE I have reviewed the history obtained and documented by Gus Frost RD and I personally participated in the hendrickson components. I have discussed the case and management of the patient's care. The following comments revise or confirm relevant hendrickson components of the note. documented in this encounter [facility] 08-30-2023 History of Present illness Narrative Abstract has been moved to virtual visit with Dr Elmore on 08/30/23. Post clinic care coordination completed. Holly Burroughs RD, [facility] documented in this encounter [facility] 08-27-2023 Miscellaneous Notes Call to patient. Patient reports she was just returning someone's phone call. Reviewed recent records; likely was an admin trying to let patient know that her visit was changed to virtual. Patient confirmed no other issues; there was some labs due in Jun but we can re-discuss this and any other labs needed at her next visit. Linda Saab RD Attempted to call patient and mailbox is full. Perhaps this pt was calling back on schedule change, looks like the patient did not check her [employer] message 08/07 when appt was adjusted from in person to video? Will try again to contact her. Savanah Toro RD, LD, CNSC, CCTD [facility] ; VM-Pt returning a call to the office. Not sure who called. [phone] documented in this encounter [facility] 07-17-2023 Miscellaneous Notes Pt has not obtained overdue labs at this time. Will delete BMP and Mg from database and re-evaluate need at next RTC. Holly Burroughs, RD, [facility] documented in this encounter [facility] 06-24-2023 Miscellaneous Notes I have reviewed the dosage, timing and amount of medication to be dispensed. I approve this prescription to be reviewed and signed by a Nutrition Support physician. Prescription Disposition: Escript Physician: Dr. Elmore Call from patient requesting refill. Please E-Scribe Requested Prescriptions Pending Prescriptions Disp Refills magnesium lactate ER (MAGTAB) 84 mg TbER 180 tablet 0 Sig: Take 2 tablets by mouth three times a day. Linda Kilgore RD documented in this encounter [facility] 06-24-2023 Miscellaneous Notes Call to patient given low magnesium. Patient reports s/s of deficiency including muscle cramping, fatigue. Discussed starting mag supplement, no need to do potassium or phos since these are normal. Patient agreeable to start copper. Pt repoted that the pharmacy did not have any of the scripts we called in last week. Call to pharmacy, stated all scripts are ready except the Vit A and E which are not covered by insurance, can be bought OTC. CGRT Recommendations: - Not taking: KCl 20 mEq three times daily - START Mag tab 2 tabs after meals (6 per day) - No need : KPO4 Neutral 250 mg once daily - START Copper Gluconate 1 capsule daily - Recheck BMP and Mg in one week - orders in epic Linda Kilgore RD Patient: NIURKA ZHU ([id number]) Female, Age: 43; Active Group: IRP and Transplant; IRP MD: VIKKI ELMORE MD; IRTP Encounter: 06/04/2023 Lab Result Details: Lab Info Patient Name: NIURKA ZHU Clinic ID: [id number] HPN Episode Start Date: IRP Encounter Date: 06/04/2023 Lab Collected Date: 06/21/2023 Recorded Date: 06/24/2023 Lab Source: Lab Phone: Lab Collected 06/21/2023 Na (mEq): 138 (136-144) K (mEq): 3.8 (3.7-5.1) Cl (mEq): 102 (97-105) CO2 (mmol/L): 25 (22-30) BUN (mg/dL): 10 (7-21) Creatinine (mg/dL): 0.67 (0.58-0.96) Glucose (mg/dL): 93 (74-99) Calcium (mg/dL): 9.8 (8.5-10.2) Mg (mg/dL): 1.4 (L: 1.7-2.3) PO4 (mg/dL): 3.7 (2.7-4.8) Copper (ug/dL): 66 (L: 80-155) documented in this encounter [facility] 06-20-2023 Miscellaneous Notes I have reviewed the dosage, timing and amount of medication to be dispensed. I approve this prescription to be reviewed and signed by a Nutrition Support physician. Prescription Disposition: Escript Physician: Dr. Elmore Call from patient requesting refill. Please E-Scribe Requested Prescriptions Pending Prescriptions Disp Refills Syringe with Needle, Disp, 3 mL 25 gauge x 1 3 Each 0 Si Syringe once every month. One syringe as directed for Vitamin B12 injection as ordered. vitamin A (AQUASOL A) 10,000 unit capsule 90 capsule 0 Sig: Take 1 capsule by mouth once daily. ergocalciferol 50,000 unit capsule (VITAMIN D2, DRISDOL) 24 capsule 0 Sig: Take 1 capsule by mouth two times a week. Vitamin E, dl, acetate, (VITAMIN E) 400 unit capsule 90 capsule 0 Sig: Take 1 capsule by mouth once daily. cyanocobalamin 1,000 mcg/mL 3 mL 0 Sig: Inject 1 mL intramuscularly once every month. Linda Kilgore RD documented in this encounter [facility] 06-20-2023 Miscellaneous Notes Patient returned phone call [...] Linda Kilgore RD documented in this encounter [facility] 06-08-2023 Note HNO ID: [id number] Author: SHRADDHA ARRIAGA RT(R) Service: Radiology Author Type: Technologist Type: Progress Notes Filed: 06/08/2023 09:35 Note Text: Radiology Service Progress Note PATIENT NAME: Niurka Zhu DATE OF SERVICE: June 08, 2023 TIME: [...] IV DATA: Not applicable SIGNED BY: RT Roya(R) June 08, 2023 9:35 AM [facility] 06-08-2023 Note HNO ID: [id number] Author: YUNIOR SINCLAIR MD Service: ? 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 (Patient not taking: Reported on 04/07/2023) Hsgcadghzobfqzt-Vvzdfmqoe-HW (BROMFED DM) 2-30-10 mg/5 mL syrup Take [...] meals. (Patient not taking: Reported on 08/07/2022) 97593 mL 2 enoxaparin (LOVENOX) 100 mg/mL syrg [...] mL injections for [address] [facility] 3 mL 4 diphenoxylate-atropine (LOMOTIL) [...] Hypertension Mother Hear (more content not included)... 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 resulting [...] neutrophils within bile ducts Hypercoagable (Protein C & S defn) - on Lovenox Hx of DVT Hx of SMA thrombosis Depression; in homeless residential (03/05/19-11/2019) Bone Scan: 02/06/2016 z-score: -1.1 wiithin [...] Laboratory: Nutrition Labs Component Latest Ref Rng & Units 04/13/2019 11/23/2019 02/25/2020 Vitamin E-alpha 6.0 [...] 68 74 66 Component Latest Ref Rng & Units 06/01/2016 Triene/Tetraene Ratio <0.024 0.039 (H) Component Latest Ref Rng & Units 11/23/2019 02/25/2020 Iron 41 - 186 ug/dL 67 86 TIBC 232 - 386 ug/dL 325 354 Transferrin Saturation 15 - 57 % 21 24 Ferritin 14.7 - 205.1 ng/mL 71.7 26.1 Medications: Current Outpatient Medications Medication Sig cephALEXin (KEFLEX) 500 mg capsule Take 1 capsule by mouth every 12 hours. (Patient not taking: Reported on 04/07/2023) Rvhbimalokvhhzs-Madyazisw-YO (BROMFED DM) 2-30-10 mg/5 mL syrup Take 10 mL by mouth four times daily as needed. (Patient not taking: Reported on 04/07/2023) fluticasone (FLONASE) 50 mcg/actuation nasal spray Use 2 Sprays in each nostril once daily. Rinse mouth after use. (Patient not taking: Reported on 04/07/2023) Food Supplement, Lactose-Free (ENSURE ACTIVE HIGH PROTEIN) liqd Take 237 mL by mouth three times daily with meals. (Patient not taking: Reported on 08/07/2022) enoxaparin (LOVENOX) 100 mg/mL syrg Inject 0.7 mL subcutaneously q 12 HR. (Patient not taking: Reported on 04/07/2023) vitamin A (AQUASOL A) 10,000 unit capsule [...] month. Syringe with Needle, Disp, 3 mL 22 [...] week. (Patient not taking: Reported on 04/07/2023) pyridoxine, vitamin B6, (VITAMIN B6) 50 mg tablet Take 2 tablets by mouth once daily. Compression Stockings Knee High Compression Stockings 20-30 mm, DX: peripheral venous insufficiency. (Patient not taking: Reported on 11/26/2020) rifAXIMin (XIFAXAN) 550 mg tab Take 1 tablet by mouth three times daily. (Patient not taking: Reported on 08/01/2022) No current facility-administered medications for this visit. Prior response to CGRT therapy: ORS: Aiming to take more G2 with salt; Benefiber: Not taking; previously taking 3 tbsp daily or 1 tbsp per day Imodium: Not taking, stays way from Imodium due to hx of GI bleeding; started taking for 1 week and experienced bleeding from bowels, stopped taking and bleeding subsided; prior to surgery was taking 4 mg ACHS; helped to slow down output, currently not taking Lomotil: Not taking; previously 1.5 mg before meals and bed; stopped due to stomach pain Codeine: Not used Tincture of Opium: Not used Pancreatic Enzymes: Not taking; did not tolerate Creon; prior to surgery was taking Zenpep 1 cap with meals Probiotics: Not taking; previously took Align once daily; helps with gas/bloating Antimicrobials for SIBO: Previously on Flagyl- makes a difference; Cipro- doesn't remember taking; Rifaxamin 550 mg TID x 14 days- may have worked Antisecretory: Previously tolerated 600 mcg Octreotide via PN Bile acid binding resin: Was prescribed but never tried following Imodium rx; similar hx of being prescribed at one point, but never used and then was discontinued Growth Hormone: Not used GLP2: was given a packet of information in the past, off PN not eligible IV Iron Infusions: Blood Management rec'd Iron Sucrose x 4 on 04/17/2019; h/o iron infusions at [facility] per patient report; h/o heavy menstrual periods per patient report ALLERGIES Allergen Reactions Adhesive Rash, Itching Amoxicillin Hives Penicillins Hives I have reviewed allergies and medications. 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 small intestine remain LAP PARTIAL COLECTOMY W/ANASTOMOSIS 09/15/13 REMOVAL GALLBLADDER 2004 Anthropometrics: Height: 5' 4 (162.6 cm) Weight: 149lbs/67.7kg (06/04/2023) 73.5 kg /161lbs (02/07/21) 73kg (ED visit 08/23/20) 74.5 kg (164 lb) (11/23/2019); 66.2 kg (146 lb) (04/13/19); 70.9 kg (156 lb) (10/10/2018); 70.4 kg (155 lb 3.2 oz) (03/26/2018); 67.7kg/149lb (11/18/17); 63.6kg (10/19/16), 64.4 kg (09/24/16); 67 kg (09/08/16); 67.1 kg (08/30/16); 67.6kg (08/20/16 prior to surgery); 65.1kg (05/17/16); 70.9kg (10/25/15); 71.6 kg (09/09/15) 83.4 kg (03/04/15); 89.8kg (database: last PN wt 12/14/2014); 93.35 kg (205 lb 12.8 oz) (11/04/14); 96.1 kg (09/03/14); 95.2 (08/20/14); 96.6 kg (06/18/14); 93.9 kg (04/30/14); 85.7 kg (02/26/14); 85.3 kg (12/31/13); 86.9 kg (11/23/13); 88 kg (10/15/13); 91.4 kg (09/28/13); 90.4 kg (09/22/13); 96.6 kg (09/04/13); 110 kg (08/27/13). Usual weight: 90-102 kg before August 2013 Goal weight: 150-155lbs (as discussed 06/04/2023) Body Mass Index (BMI) 25.63 kg/m^2 - overweight Pt reports that weight has decreased by 12lbs or 4.5% BW in the past 3 years. Has not necessearily noticed the weight loss. Not considered clinically significant Estimated Daily Nutritional Needs: 1350 - 1700 kcals/day = 20 - 25 kcals/kg dosing weight 85 - 115 g protein/day = 1.3-1.7 g/kg dosing weight Nutrition Focused Physical Exam: Subcutaneous Fat Loss: Orbital: None Triceps: Mild Mid-axillary at the iliac crest: Mild Muscle Loss Locations: Temporalis: None Pectoralis: Mild Deltoids: None Interosseous: None Latissimus dorsi, trapezius: None Quadriceps: None Gastrocnemius: None Ascites: No Edema: No Functional status: Functional, yet not normal, able to be up and about with fairly normal activities Potential Signs of Inflammation: chronic condition Potential micronutrient deficiency revealed in Eyes - c/f night blindness describes difficulty seeing at night. 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 Avoid high fat foods. Handout provided Oral Rehydration Solution (ORS): Resume 1-2L ORS per day. Minimize hypotonic fluids. Provided education and handout today. Vitamin & Mineral Supplements: (await pending levels to adjust doses- pt confirms recently taking the following) - Continue multivitamin woman's one/day x 3 servings -taking - Consider AquaDEKs in future rather than individual supplementation to minimize pill burden - Historically Vitamin A 10,000 IU daily - Historically Vitamin B6 50 mg daily - Historically Vitamin E 400 units daily - Historically Vitamin D2 50,000IU 4x/week - Historically Vitamin B12 injections monthly - Taking Calcium Carbonate 1,000 mg daily taking PRN, resume TID to prevent kidney stones - Historically Iron polysaccharide daily - Historically Copper Gluconate 1 capsule daily Oral Electrolyte Repletion - Historically KCl 20 mEq three times daily - Historically magPlus protein 1 tab TID - Historically KPO4 Neutral 250 mg once daily IV Electrolyte Repletion: (historically received; order no longer active; reassess necessity) - Infusion: [facility] Deepika, goes Wednesdays for blood work and for infusion - IV Mg Infusion orders: If Mg is 1.4-.1.7, infuse 2 gm, if Mg <1.4, provide 4 gm (refills available) - IV K infusion orders: If K is 3.1-3.4, infuse 20 mEq x 1hr, if K is <3, infuse 40 mEq x 2 hrs; likely need to modify to provide 40 mEq for level of 3-3.4 and 60 mEq for level of <3 Antidiarrheal medications - Consider re-starting Imodium 2mg cap 30 min before meals/bedtime. Antimicrobials: Consider Flagyl 250mg TID x 7 days for SIBO Pancreatic enzyme replacement: Consider restarting Zenpep 2/2 oily stools if sx persist s/p abx treatment.Of note, patient with many fat soluble vitamin deficiencies and may still benefit from pancreatic enzymes. Labs: (WHAT) CMP, CBC, Mg, PO4, Vitamin A, E, D, B6, B12/MMA, Zinc, Copper and Iron panel (WHEN) due today (WHERE) Orders in [facility]; Coordinator to enter into IRP Database only Patient Group: CGRT Follow Up: Return to clinic in 1-[address] Elmore and CGRT RD. Signed by: Ale Gonzalez RD Date: 06/04/2023 [facility] STAFF PHYSICIAN NOTE OF PERSONAL INVOLVEMENT IN CARE I have reviewed the history obtained and documented by Lacy Gonzalez RD and I personally participated in the hendrickson components. I have discussed the case and management of the patient's care. The following comments revise or confirm relevant hendrickson components of the note. 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 Patient has since underwent STEP procedure 07/21/14 resulting in TPN independence; however was unable to maintain adequate electrolytes and nutrition. Underwent second STEP 09/07/16. Current anatomy: 78 cm of jejunum anastomosed to mid-transverse colon, no ICV, + rectum, +anus. She has had issues with SIBO, malabsorption, and continued IV electrolyte replacement. ISSUES & PLAN: #) Short bowel syndrome with colon #) Intestinal malabsorption #) SIBO -Received extensive RD counseling today re: SBS with colon -ORS as beverage of choice -Re-start Imodium ac meals -Flagyl if ongoing diarrhea and SIBO suspected -Also consider re-starting PERT with hx of malabsorption and YADI -Resume IV Mg, K for deficiencies based on levels #) Micronutrient deficiencies -Check levels today --> adjust supplements. Try to consolidate to DIANN or Bariatric formulation to reduce pill burden INTERVAL HISTORY: -Since last visit with Dr Travis in 2020, she has continued on IV electrolyte replacement -Still having pain with eating, bloating -In spite, of this, she is still eating well and maintaining normal weight -Taking 3 meals a day plus snacks -4-6 BM's per day, more watery later in the day -3x nocturnal BMs -Urine output adequate. No recent kidney stones. -Periodic trips to ED with dehydration -Restarted Imodium -Intermittent Flagyl for SIBO -Hx of multiple micronutrient deficienceis related to diarrhea and malabsorption, also with hx of EFA def ROS: ROS completed and negative outside of the systems documented in the HPI. Physical Exam: LMP 05/03/2023 (Approximate) General: Appears chronically ill HEENT: No icterus. Neck: JVP non-distended Cardiovascular: PPP Normal HR. Respiratory: Normal respiratory effort. Abdomen: Non-distended, soft, non-tender Extremities: Edema absent. Muscle mass intact. Preserved subQ fat reserves. Skin: No rash. Neurologic: Awake and alert. Vikki Elmore MD 08/12/2023 Staff Party Plan [employer] [facility] [place] , documented in this encounter [facility] 04-14-2023 Miscellaneous Notes Called patient, no answer,unable to leave message to call back. Unable to reach letter sent. Axel Palmer LPN Called patient, no answer, left message to call back. Axel Palmer LPN ----- Message from Antonino Snyder MD sent at 04/08/2023 7:45 AM EST ----- Please inform patient test was positive for COVID-19 negative for influenza and RSV. Patient needs to quarantine. Follow-up as needed. documented in this encounter [facility] 04-07-2023 Note HNO ID: [id number] Author: Antonino Snyder MD Service: ? 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 (Patient not taking: Reported on 04/07/2023) Qxfcquozaxssass-Jtumydftq-KH (BROMFED DM) 2-30-10 mg/5 mL syrup Take [...] meals. (Patient not taking: Reported on 08/07/2022) 24576 mL 2 enoxaparin (LOVENOX) 100 mg/mL syrg [...] Cancer Maternal Aun (more content not included)... [facility] 04-07-2023 History of Present illness Narrative Niurka Zhu is a 43 year old female who [...] pain 01/11/2014 Depression DVT (deep venous thrombosis) ([facility]) July 2013 Hypertension, essential 01/13/2018 Low blood magnesium 03/02/2016 Protein C deficiency ([facility]) Protein S deficiency ([facility]) S/P cholecystectomy SBO (small bowel obstruction) ([facility]) 05/25/2016 Short bowel syndrome 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 Intestinal Malabsorption Hypomagnesemia Surgery, Elective Moderate Protein Malnutrition (Hcc) Severe Protein-Calorie Malnutrition ([facility]) Protein C Deficiency (Hcc) Protein S Deficiency ([facility]) Hypertension, Essential Vitamin D Deficiency Vitamin B12 [...] hours. (Patient not taking: Reported on 04/07/2023) Kgslyrlyxiwahqc-Urjctwbsd-BN (BROMFED DM) 2-30-10 mg/5 mL syrup Take [...] meals. (Patient not taking: Reported on 08/07/2022) 05109 mL 2 enoxaparin (LOVENOX) 100 mg/mL syrg [...] AND INFLUENZA A/B & RSV NAAT, EXPEDITED Antonino Snyder documented in this encounter [facility] 03-19-2023 Emergency department Note Discharge instructions, follow up care, and pain management discussed with patient. All questions answered, there are no further questions at this time. IV removed, catheter intact, site covered with dry dressing. Patient tolerated well. RN educated on newly prescribed antibiotics including dose, use, and side effects. Patient verbalized understanding and ambulated off the unit independently at discharge. Mihai Barraza RN 03/19/231831 [facility] 03-19-2023 Emergency department Note Discharge instructions, follow up care, and pain management discussed with patient. All questions answered, there are no further questions at this time. IV removed, catheter intact, site covered with dry dressing. Patient tolerated well. RN educated on newly prescribed antibiotics including dose, use, and side effects. Patient verbalized understanding and ambulated off the unit independently at discharge. Mihai Barraza RN 03/19/231831 [facility] ED EMERGENCY DEPARTMENT ENCOUNTER Pt Name: Niurka Zuh Birthdate 1980 Date of evaluation: 03/19/2023 Provider: Alejandro Ruiz MD CHIEF COMPLAINT Chief Complaint Patient presents with Urinary Retention Pelvic Pain Right sided pelvic pain radiating to right flank, with urinary retention and burning with urination for the last 2-3 days HISTORY OF PRESENT ILLNESS I wore proper PPE for the entirety of this encounter. Niurka Zhu is a 43 y.o. female history nephrolithiasis, [...] Culture. Procedure Abnormality Status --------- ------ Complete Urinalysis[[id number]] Abnormal Final result Please view results for [...] kg (150 lb) Height: 1.626 m (5' 4) Medications sodium chloride 0.9 % bolus 1,000 [...] low red flag score (as outlined by [facility]' low back pain CMT). The evidence indicates [...] Tue Mar 19, 2023 1716 PVR 73ml [KATHAY] 1727 CBC auto differential(!) No leukocytosis [KATHYA] [...] [KATHYA] ED Course User Index [KATHYA] Alejandro Ruiz MD Diagnoses as of 03/19/231811 Pyelonephritis PROCEDURES: Unless otherwise noted below, none Procedures Patients symptoms are consistent with sepsis, severe sepsis, or septic shock (If yes use .sepsiscoremeasure): no FINAL IMPRESSION 1. Pyelonephritis DISPOSITION/PLAN Discharge 03/19/2023 06:09:39 PM PATIENT REFERRED TO: Starr Motley [address] [facility] [id number] Schedule an appointment as soon as possible for a visit DISCHARGE MEDICATIONS: New Prescriptions SULFAMETHOXAZOLE-TRIMETHOPRIM (BACTRIM DS) 800-160 MG TABLET Take 1 tablet by mouth 2 times daily for 10 days. (Please note: Portions of this note were completed with a voice recognition program. Efforts were made to edit the dictations but occasionally words and phrases are mis-transcribed.) Alejandro Ruiz MD JENN Emergency Medicine Physician [facility] Alejandro Ruiz MD 03/19/231811 Patient ambulatory to room 14 [...] is in reach. documented in this encounter [facility] 03-19-2023 Hospital Discharge instructions Alejandro Ruiz MD - 03/19/2023 6:10 PM EDT You [...] your results today. Thank you for choosing [facility] for your care. Sincerely, Alejandro Ruiz MD The following attachments cannot be sent through Care Everywhere.Kidney Infection Discharge Instructions (Divehi)documented in this encounter [facility] 03-19-2023 Emergency department Triage note Patient ambulatory [...] bedside, and call light is in reach. [facility] 03-19-2023 Physician Emergency department Note [facility] ED EMERGENCY DEPARTMENT ENCOUNTER Pt Name: Niurka Zhu Birthdate 1980 Date of evaluation: 03/19/2023 Provider: Alejandro Ruiz MD CHIEF COMPLAINT Chief Complaint Patient presents with Urinary Retention Pelvic Pain Right sided pelvic pain radiating to right flank, with urinary retention and burning with urination for the last 2-3 days HISTORY OF PRESENT ILLNESS I wore proper PPE for the entirety of this encounter. Niurka Zhu is a 43 y.o. female history nephrolithiasis, [...] Culture. Procedure Abnormality Status --------- ------ Complete Urinalysis[[id number]] Abnormal Final result Please view results for [...] kg (150 lb) Height: 1.626 m (5' 4) Medications sodium chloride 0.9 % bolus 1,000 [...] low red flag score (as outlined by [facility]' low back pain CMT). The evidence indicates [...] [KATHYA] ED Course User Index [KATHYA] Alejandro Ruiz MD Diagnoses as of 03/19/231811 Pyelonephritis PROCEDURES: Unless otherwise noted below, none Procedures Patients symptoms are consistent with sepsis, severe sepsis, or septic shock (If yes use .sepsiscoremeasure): no FINAL IMPRESSION 1. Pyelonephritis DISPOSITION/PLAN Discharge 03/19/2023 06:09:39 PM PATIENT REFERRED TO: Starr Motely [address] [facility] [address] Schedule an appointment as soon as possible for a visit DISCHARGE MEDICATIONS: New Prescriptions SULFAMETHOXAZOLE-TRIMETHOPRIM (BACTRIM DS) 800-160 MG TABLET Take 1 tablet by mouth 2 times daily for 10 days. (Please note: Portions of this note were completed with a voice recognition program. Efforts were made to edit the dictations but occasionally words and phrases are mis-transcribed.) Alejandro Ruiz MD JENN Emergency Medicine Physician [facility] Alejandro Ruiz MD 03/19/231811 [facility] 03-08-2023 History of Present illness Narrative This note was created using Testinriter. Subjective Niurka Zhu is a 42 year old female. 42 [...] history is provided by the patient. No english language learner teacher was used. URI There is no chest [...] pain 01/11/2014 Depression DVT (deep venous thrombosis) ([facility]) July 2013 Hypertension, essential 01/13/2018 Low blood magnesium 03/02/2016 Protein C deficiency ([facility]) Protein S deficiency ([facility]) S/P cholecystectomy SBO (small bowel obstruction) ([facility]) 05/25/2016 Short bowel syndrome PAST SURGICAL HISTORY [...] Take 2 tablets by mouth twice daily. Sswihhqqciigszn-Wcujefbae-MG (BROMFED DM) 2-30-10 mg/5 mL syrup Take [...] ROUTINE FLU A/B + RSV Inés Flores APRN.DIRECTOR OF GROUP SALES documented in this encounter [facility] 03-03-2023 Discharge summary Note Date/Time March 03, 2023 7:35pm [facility] Medical Records Department [address] [place] [address] Emergency Department Summary 03/03/23 MR#: [id number] Acct: [id number] Name: NIURKA ZHU Rep #:[id number] : 1980 42 From: Toby Oconnell PCP: Dr. Starr Motley MD Status:RE G ER Location: ED HPI <CARMEN Purcell - Last Filed: 03/03/23 21:08> HPI - GI History of Present Illness Chief Complaint: Abd Pain Narrative Narrative: Patient presenting today due to generalized abdominal pain, nausea, and constipation that she has had for the past 2 days. She has a history of proteinC&S that deficiency was undiagnosed causing a clot in her mesenteric artery and bowel ischemia, she had to have removal of a large amount of her small and largebowel at that time and has had chronic diarrhea since. She reports a history ofbowel obstruction. She reports that she is passing gas and did have a bowel movement this morning that was much harder and painful to pass than her usual soft bowel movements. She denies any blood in her stool. She reports some leftsided kidney pain, dysuria, and increased urinary frequency. She denies any fevers, chills, and vomiting. She has had a cholecystectomy as well. PFS <CARMEN Purcell - Last Filed: 03/03/23 21:08> [facility] Medical History Anxiety Blood clotting disorder Kidney stone Protein C deficiency Protein S deficiency Short gut syndrome Smoker Home Medications ergocalciferol (vitamin D2) 1,250 mcg (50,000 unit) capsule 50,000 unit PO MOTUWETH supplement 10/09/14 [History Last Taken 08/17/21 08:00] calcium carbonate 500 mg calcium (1,250 mg) chewable tablet (Calcium 500) 500 mgPO BID #60 tabs 08/22/21 [Rx Last Taken Unknown] enoxaparin 80 mg/0.8 mL subcutaneous syringe (Lovenox) 70 mg (0.7 mL) subcut BIDblood thin #8 mL 10/31/21 [Rx Last Taken Unknown] jfguefkt-iqj-hcwc 2.25 mg-folic acid 100 [id number]-[id number]-crttp acid tablet 1 tab PO TID 10/31/21 [History Last Taken Unknown] magnesium L-lactate 84 mg tablet,extended release 252 mg (3 x 84 mg) PO TID SUPPLEMENT #90 tabs 03/31/22 [Rx Last Taken Unknown] potassium chloride 20 mEq tablet,extended release 20 meq PO BID #60 tabs 03/31/22 [Rx Last Taken Unknown] enoxaparin 80 mg/0.8 mL subcutaneous syringe (Lovenox) 70 mg (0.7 mL) subcut BID#8 mL 10/08/22 [Rx Last Taken Unknown] metronidazole 500 mg tablet 500 mg PO BID #14 tabs 11/28/22 [Rx Last Taken Unknown] cephalexin 500 mg capsule 500 mg PO Q12 #14 CAPSULES 03/03/23 [Rx Last Taken Unknown] fluconazole 150 mg tablet 150 mg PO DAILY 1 dose #2 tabs 03/03/23 [Rx Last Taken Unknown] Allergy/AdvReac Type Severity Reaction Status Date / Time adhesive Allergy Itching Verified 03/03/23 18:54 amoxicillin [Amoxicillin] Allergy Hives Verified 03/03/23 18:54 Penicillins Allergy Hives Verified 03/03/23 18:54 Family History Grandmother Diabetes Heart disease Mother Heart disease Grandfather Lung cancer Liver cancer Brain cancer Surgical History History of removal of ovarian cyst Hx of cholecystectomy S/P hernia repair STEPS procedure Social History Smoking Status: Current every day smoker tobacco type: cigarettes and e-cigarettes alcohol intake: current alcohol intake frequency: holidays/special occasions only substance use type: does not use caffeine: Yes what type of physical activity do you participate in: none seatbelt use: always do you feel safe at home: Yes additional social history: - Ganesh Patient works with [employer] <CARMEN Purcell - Last Filed: 03/03/23 21:08> [facility] ED Constitutional Constitutional ED: Denies chills or fever(s) Cardiovascular Cardiovascular: Denies chest pain Respiratory/Chest Respiratory/Chest: Denies cough or dyspnea Gastrointestinal Gastrointestinal: Reports abdominal pain, constipation and nausea; Denies diarrhea, melena or vomiting Genitourinary Genitourinary ED: Reports dysuria and urinary urgency; Denies hematuria Musculoskeletal Musculoskeletal: Reports back pain; Denies arthralgias or myalgias Integumentary Denies rash Neurologic Neurologic: Denies weakness EXAM <CARMEN Purcell - Last Filed: 03/03/23 21:08> Physical Exam Const Vital Signs: 03/03/23 18:54 Temperature 97.9 F Temperature Source Temporal Pulse Rate 67 Respiratory Rate 18 Blood Pressure 108/82 H Blood Pressure Mean 90 Pulse Ox 98 Oxygen Delivery Method Room Air Positive well nourished, well developed and no apparent distress General Appearance ED: well developed HEENT Reports normocephalic and head/scalp atraumatic Mouth ED: Yes moist mucous membranes normal Eyes PERRL and EOMs intact bilaterally Neck full ROM and supple Chest Wall inspection of chest normal Resp normal respiratory effort and clear to auscultation bilaterally Cardio regular rate and regular rhythm GI soft to palpation, non-distended and no masses GI Narrative: Pain to palpation to the periumbilical area and left lower quadrant without any rigidity, guarding, or peritoneal signs Back/Spine normal ROM and normal to inspection Extremity normal to inspection and full ROM Neuro oriented x3, CN's II-XII intact bilaterally, moves all extremities, no focal motor deficits and no sensory deficits noted Sensorium / Orientation: awake and alert Psych mental status grossly normal and thought process normal Skin no rashes or lesions noted and no wounds <Dr. Toby Francis, - Last Filed: 03/03/23 22:02> Physical Exam Const Vital Signs: 03/03/23 18:54 Temperature 97.9 F Temperature Source Temporal Pulse Rate 67 Respiratory Rate 18 Blood Pressure 108/82 H Blood Pressure Mean 90 Pulse Ox 98 Oxygen Delivery Method Room Air MDM <CARMEN Purcell - Last Filed: 03/03/23 21:08> [facility] Narrative Medical decision making narrative: Patient presenting today due to generalized abdominal pain, nausea, and constipation. She has a significant abdominal history due to short gut syndrome and has had bowel obstructions in the past. She reports that her symptoms do feel similar to her previous bowel obstruction. She is passing a large amount of gas and did have a bowel movement this morning, but she normally has diarrhea throughout the day and has not had that. She is well-appearing and in no acute distress. Labs to be obtained to rule out leukocytosis, anemia, electrolyte abnormality, WAGNER, and UTI. X-ray of the abdomen obtained and is concerning for bowel obstruction, CT of the abdomen and pelvis obtained to rule this out. CT does show significant fecal retention, on reexamination she is currently having a bowel movement, depending on the size of the bowel movement patient may need an enema. UA is contaminated but does have positive nitrates and she does have urinary symptoms, she will be treated with keflex and a urine culture will be obtained. Patient reports having a very large bowel movement and passing a lot of gas, she reports that her abdominal symptoms have improved. At this point, I feel the patient is safe to be discharged home with outpatient follow-up. She is comfortable with plan. Lab Data Attestation: I reviewed the patient's lab results. Labs: Laboratory Results - last 24 hr 03/03/23 03/03/23 19:28 19:35 WBC 5.5 RBC 3.82 L Hgb 11.8 L Hct 36.6 L MCV 95.8 MCH 30.9 MCHC 32.2 RDW Std Deviation 46.3 H RDW Coeff of Jim 13.2 Plt Count 183 MPV 10.3 Immature Gran % (Auto) 0.200 Neut % (Auto) 58.8 Lymph % (Auto) 31.7 [place] % (Auto) 6.2 Eos % (Auto) 2.4 Baso % (Auto) 0.7 Absolute Neuts (auto) 3.2 Absolute Lymphs (auto) 1.74 Nucleated RBC % 0 Sodium 144 Potassium 3.2 L Chloride 110 H Carbon Dioxide 27.0 Anion Gap 7 BUN 11 Creatinine 0.74 Estim Creat Clear Calc 86.39 Est GFR (MDRD) Af Amer 110 Est GFR (MDRD) Non-Af 91 BUN/Creatinine Ratio 14.8 Glucose 101 Calcium 8.3 L Total Bilirubin 0.50 AST 23 ALT 30 Alkaline Phosphatase 65 Total Protein 6.2 L Albumin 3.1 L Globulin 3.1 Albumin/Globulin Ratio 1.0 Lipase 18 Urine Color Yellow Urine Clarity Cloudy Urine pH 5.0 Ur Specific Franklin 1.025 Urine Protein 30 H Urine Glucose (UA) Normal Urine Ketones 5 H Urine Occult Blood 150 H Urine Nitrite Positive H Urine Bilirubin 1 H Urine Urobilinogen Normal Ur Leukocyte Esterase 25 H Urine RBC 10-25 SEEN Urine WBC 0-5 SEEN Ur Squamous Epith Cells 5-10 SEEN Uric Acid Crystals 1+ Amorphous Sediment 1+ URATE Urine Bacteria 3+ Urine Mucus 0 SEEN Radiography Diagnostic Testing: Clinical Impression(s) from Imaging Studies Abdomen X-Ray 03/03/23 19:40 IMPRESSION: Diffuse colonic distention with air-fluid level raising the concern of ileus, enteritis/colitis or malabsorption. Clinical correlation recommended. Electronically Signed: Bev Thompson MD at 19:56 EDT , Abdomen/Pelvis CT 03/03/23 19:45 IMPRESSION: Diffuse colonic dilatation extending into the sigmoid and rectal region compatible with diffuse ileus or alternatively syndrome. Superimposed enteritis not excluded. No distinct focal stricture or zone of transition seen. Unremarkable abdominal viscera. Electronically Signed: Bev Thompson MD at 21:20 EDT , <Dr. Toby Francis, DO - Last Filed: 03/03/23 22:02> [facility] Lab Data Labs: Laboratory Results - last 24 hr 03/03/23 03/03/23 19:28 19:35 WBC 5.5 RBC 3.82 L Hgb 11.8 L Hct 36.6 L MCV 95.8 MCH 30.9 MCHC 32.2 RDW Std Deviation 46.3 H RDW Coeff of Jim 13.2 Plt Count 183 MPV 10.3 Immature Gran % (Auto) 0.200 Neut % (Auto) 58.8 Lymph % (Auto) 31.7 [place] % (Auto) 6.2 Eos % (Auto) 2.4 Baso % (Auto) 0.7 Absolute Neuts (auto) 3.2 Absolute Lymphs (auto) 1.74 Nucleated RBC % 0 Sodium 144 Potassium 3.2 L Chloride 110 H Carbon Dioxide 27.0 Anion Gap 7 BUN 11 Creatinine 0.74 Estim Creat Clear Calc 86.39 Est GFR (MDRD) Af Amer 110 Est GFR (MDRD) Non-Af 91 BUN/Creatinine Ratio 14.8 Glucose 101 Calcium 8.3 L Total Bilirubin 0.50 AST 23 ALT 30 Alkaline Phosphatase 65 Total Protein 6.2 L Albumin 3.1 L Globulin 3.1 Albumin/Globulin Ratio 1.0 Lipase 18 Urine Color Yellow Urine Clarity Cloudy Urine pH 5.0 Ur Specific Franklin 1.025 Urine Protein 30 H Urine Glucose (UA) Normal Urine Ketones 5 H Urine Occult Blood 150 H Urine Nitrite Positive H Urine Bilirubin 1 H Urine Urobilinogen Normal Ur Leukocyte Esterase 25 H Urine RBC 10-25 SEEN Urine WBC 0-5 SEEN Ur Squamous Epith Cells 5-10 SEEN Uric Acid Crystals 1+ Amorphous Sediment 1+ URATE Urine Bacteria 3+ Urine Mucus 0 SEEN Radiography Diagnostic Testing: Clinical Impression(s) from Imaging Studies Abdomen X-Ray 03/03/23 19:40 IMPRESSION: Diffuse colonic distention with air-fluid level raising the concern of ileus, enteritis/colitis or malabsorption. Clinical correlation recommended. Electronically Signed: Bev Thompson MD at 19:56 EDT , Abdomen/Pelvis CT 03/03/23 19:45 IMPRESSION: Diffuse colonic dilatation extending into the sigmoid and rectal region compatible with diffuse ileus or alternatively syndrome. Superimposed enteritis not excluded. No distinct focal stricture or zone of transition seen. Unremarkable abdominal viscera. Electronically Signed: Bev Thompson MD at 21:20 EDT , Treatment and Re-Evaluation Comments:: I have personally performed a face to face assessment of the patient and have reviewed the ZACHARY Note. I performed a substantive portion of the visit including all aspects of the following. My hendrickson findings include: History is abdominal discomfort early distention nausea. 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 History of bowel obstructions. Exam is mild tympany in the upper abdomen. Normal bowel sounds. Medical Decison Making plain films showed air-fluid levels of the large bowel. CT was obtained which demonstrates a large amount of stool in the rectum and sigmoid colon. Patient had a large bowel movement here and is feeling significantly better. I do not think the patient needs a enema as she is passing stool on her own and feels better. She states her doctors have advised her not to take anything like laxatives. There is questionable UTI with positive nitrates 0-5 white cells and 3+ bacteria. Placed her on Keflex and she has requested some Diflucan. Culture will be sent. Discharge Plan Triage Chief Complaint: Abd Pain ED Midlevel Provider: Viola Carrasco ED Provider: Toby Francis Dx/Rx/DC Orders Clinical Impression: UTI (urinary tract infection), Abdominal pain, Constipation, Short gut syndrome Instructions: ED Constipation (Adult), ED Cystitis Female Adult Prescriptions: New cephalexin 500 mg capsule 500 mg PO Q12 Qty: 14 0RF fluconazole 150 mg tablet 150 mg PO DAILY Qty: 2 0RF Rx Instructions: Repeat in 3 days if needed No Action ergocalciferol (vitamin D2) 50,000 UNIT capsule 50,000 unit PO MOTUWETH calcium carbonate [Calcium 500] 500 mg calcium (1,250 mg) tablet,chewable 500 mg PO BID Qty: 60 0RF [id number] 2.25 mg iron- 100 mcg Tablet 1 tab PO TID enoxaparin [Lovenox] 80 mg/0.8 mL Syringe 70 mg SUBCUT BID Qty: 8 0RF magnesium L-lactate 84 mg tablet extended release 252 mg PO TID Qty: 90 0RF potassium chloride 20 mEq tablet extended release 20 meq PO BID Qty: 60 0RF enoxaparin [Lovenox] 80 mg/0.8 mL syringe 70 mg subcut BID Qty: 8 2RF metronidazole 500 mg tablet 500 mg PO BID Qty: 14 0RF Primary Care Provider: Starr Motley Referrals: Starr Motley MD [Primary Care Provider] - 3-5 Days Activity Restrictions/Additional Instructions: Please follow-up with your PCP return for any worsening of your symptoms. Disposition Disposition: Home, Self Care What to do if you have Problems For any increased pain, shortness of breath, bleeding, nausea or vomiting, chestpain, or any unexpected problems, contact your Primary Care Provider. Call [facility] ([phone]) or report to the closest Emergency Room. Call 911 if necessary. 03/03/232201 <Electronically signed by Toby Winnebago DO> Cosigner Signature (if applicable): 03/03/232107 <Electronically signed by Viola MORALES> CC: Dr. Starr Motley MD ~ Signed [facility] Work Phone: 1(175) 259-336709-12-2023 Miscellaneous Notes* Telephone Encounter - Gus Frost RD - 01/29/2023 2:31 PM EDT Returned call to pt, asked if she [...] will call our office to schedule. Holly Burroughs, RD, CNSC * Telephone Encounter - Palma Bobo - 01/29/2023 9:08 AM EDT Patient requesting labs to be drawn, former Dr. Travis patient. Patient will use a [facility] lab. Patient documented in [facility]Ge[facility]08-13-[facility]23 Discharge summary Author Guanako Richardson [facility] December 30, 2022 10:44am Note Date/Time December 30, 2022 9: 28am [facility] Medical Records Department [address] [place] [address] Emergency Department Summary 12/30/22 MR#: [id number] Acct: [id number] Name: NIURKA ZHU Rep #:[id number] : 1980 42 From: Guanako Richardson MD PCP: Dr. Starr Motley MD Status:RE G ER Location: ED HPI HPI - GI History of Present Illness Chief Complaint: Abd Pain Informant: patient Abdominal Pain/Flank Pain Onset: Days (3) Context: Gradual Onset Timing: Continuous Quality: Aching Location: - (Right mid abdomen) Current Severity: Mild Maximum Severity: Mild Worsened by: Food Relieved by: Nothing Nausea/Vomiting/Emesis GI Symptom: Positive for Nausea; Negative for Vomiting Diarrhea/Melena/Hematochezia GI Symptom: Positive for Diarrhea (Chronic, less than usual); Negative for Melena or Hematochezia Associated Symptoms Associated Symptoms: Negative for Dysuria, Frequency, Hematuria or Urgency Narrative Narrative: Patient with a history of short gut syndrome due to blood clots causing ischemicbowel and multiple segments of small bowel resection has chronic diarrhea as a result of this, she usually goes 6-8 times daily, she states in the last severaldays she has felt poorly, she has had some mild right-sided abdominal pain, foodseems to make it worse so she has been eating less and she has been having only about 4 loose stringy bowel movements per day no blood, and states she is concerned that things are not moving through correctly. Some nausea on occasion no vomiting. Has a history of low potassium and magnesium due to her short gut syndrome and would like those checked, she denies any urinary issues, coughing, known sick contacts, or travel out of the area. Presenting during a recent mild uptick in [facility] as well in the community. PFSH PFSH Medical History Anxiety Blood clotting disorder Kidney stone Protein C deficiency Protein S deficiency Short gut syndrome Smoker Home Medications ergocalciferol (vitamin D2) 1,250 mcg (50,000 unit) capsule 50,000 unit PO MOTUWETH supplement 10/09/14 [History Last Taken 08/17/21 08:00] calcium carbonate 500 mg calcium (1,250 mg) chewable tablet (Calcium 500) 500 mgPO BID #60 tabs 08/22/21 [Rx Last Taken Unknown] enoxaparin 80 mg/0.8 mL subcutaneous syringe (Lovenox) 70 mg (0.7 mL) subcut BIDblood thin #8 mL 10/31/21 [Rx Last Taken Unknown] vgcrxikk-pmr-rwtw 2.25 mg-folic acid 100 dzw-[id number]-F5-hxehy acid tablet 1 tab PO TID 10/31/21 [History Last Taken Unknown] magnesium L-lactate 84 mg tablet,extended release 252 mg (3 x 84 mg) PO TID SUPPLEMENT #90 tabs 03/31/22 [Rx Last Taken Unknown] potassium chloride 20 mEq tablet,extended release 20 meq PO BID #60 tabs 03/31/22 [Rx Last Taken Unknown] enoxaparin 80 mg/0.8 mL subcutaneous syringe (Lovenox) 70 mg (0.7 mL) subcut BID#8 mL 10/08/22 [Rx Last Taken Unknown] metronidazole 500 mg tablet 500 mg PO BID #14 tabs 11/28/22 [Rx Last Taken Unknown] Allergy/AdvReac Type Severity Reaction Status Date / Time adhesive Allergy Itching Verified 12/30/22 09:02 amoxicillin [Amoxicillin] Allergy Hives Verified 12/30/22 09:02 Penicillins Allergy Hives Verified 12/30/22 09:02 Family History Grandmother Diabetes Heart disease Mother Heart disease Grandfather Lung cancer Liver cancer Brain cancer Surgical History History of removal of ovarian cyst Hx of cholecystectomy S/P hernia repair STEPS procedure Social History Smoking Status: Current every day smoker tobacco type: cigarettes and e- cigarettes alcohol intake: current alcohol intake frequency: holidays/special occasions only substance use type: does not use caffeine: Yes what type of physical activity do you participate in: none seatbelt use: always do you feel safe at home: Yes additional social history: - Ganesh Patient works with [employer] [facility] ED Constitutional Constitutional ED: Reports anorexia, body ache(s) and malaise; Denies chills or fever(s) Eyes Eyes: Denies change in vision or diplopia ENT ENT ED: Denies rhinorrhea or sore throat Cardiovascular Cardiovascular: Denies chest pain or palpitations Respiratory/Chest Respiratory/Chest: Denies cough or dyspnea Gastrointestinal Gastrointestinal: Reports abdominal pain, diarrhea and nausea; Denies melena or vomiting Genitourinary Genitourinary ED: Denies dysuria or hematuria Musculoskeletal Musculoskeletal: Denies back pain or neck pain Integumentary Denies abscess or rash Neurologic Neurologic: Denies headache(s), paresthesias or weakness Psychiatric Psychiatric: Denies anxiety or suicidal thoughts EXAM Physical Exam Const Vital Signs: 12/30/22 09:02 12/30/22 09:08 Temperature 96.9 F L Temperature Source Temporal Pulse Rate 76 Respiratory Rate 12 Respiratory Effort Normal Respiratory Pattern Normal Blood Pressure 125/90 H Blood Pressure Mean 101 Pulse Ox 100 Oxygen Delivery Method Room Air Positive well nourished and well developed General Appearance ED: well developed and NAD HEENT Reports moist mucous membranes normocephalic and atraumatic Eyes PERRL and EOMs intact bilaterally Neck full ROM and supple Resp normal respiratory effort and clear to auscultation bilaterally Cardio regular rate, regular rhythm and no murmurs GI non-tender and non-distended Auscultation: normoactive bowel sounds Palpation: soft Back/Spine no CVA tenderness General Back: other FROM Extremity normal to inspection General Extremety ED: Negative for edema, pulses abnormal or tenderness General Extremity: Negative for edema or pulses abnormal Neuro oriented x3, CN's II-XII intact bilaterally and no sensory deficits noted Sensorium / Orientation: awake and alert Motor Exam: strength 5/5 throughout Psych mental status grossly normal and thought process normal Skin no rashes or lesions noted and no wounds MDM MDM MDM Narrative Medical decision making narrative: Labs were obtained in addition to a COVID test while treating her empirically with IV fluids, Zofran, and dicyclomine. Abdomen very benign, does not have symptoms of a bowel obstruction and I do not think she needs advanced emergent imaging of her abdomen at this time. With the above medications, her symptoms are better. Her COVID is negative, labs remarkable for mild hypokalemia and hypomagnesemia. Both will be replaced IV and then she will be discharged home to follow-up as an outpatient she is comfortable with that plan. Lab Data Attestation: I reviewed the patient's lab results. Labs: Laboratory Results - last 24 hr 12/30/22 09:30 WBC 5.0 RBC 4.26 Hgb 12.7 Hct 40.0 MCV 93.9 MCH 29.8 MCHC 31.8 L RDW Std Deviation 46.6 H RDW Coeff of Jim 13.5 Plt Count 173 MPV 10.1 Immature Gran % (Auto) 0.200 Neut % (Auto) 64.2 Lymph % (Auto) 26.8 [place] % (Auto) 6.4 Eos % (Auto) 1.8 Baso % (Auto) 0.6 Absolute Neuts (auto) 3.2 Absolute Lymphs (auto) 1.34 Nucleated RBC % 0 Sodium 142 Potassium 3.2 L Chloride 106 Carbon Dioxide 29.0 Anion Gap 7 BUN 9 Creatinine 0.72 Estim Creat Clear Calc 88.79 Est GFR (MDRD) Af Amer 114 Est GFR (MDRD) Non-Af 94 BUN/Creatinine Ratio 12.5 Glucose 94 Calcium 8.6 Magnesium 1.2 L Discharge Plan Triage Chief Complaint: Abd Pain Other Complaint: General Illness Complaint ED Provider: Guanako Richardson Dx/Rx/DC Orders Clinical Impression: Short gut syndrome, Hypokalemia, Hypomagnesemia Instructions: Hypomagnesemia Dc, ED Hypokalemia Prescriptions: No Action ergocalciferol (vitamin D2) 50,000 UNIT capsule 50,000 unit PO MOTUWETH calcium carbonate [Calcium 500] 500 mg calcium (1,250 mg) tablet,chewable 500 mg PO BID Qty: 60 0RF erls-sjw-noan-VA-Mps66-Z8-AA 2.25 mg iron- 100 mcg Tablet 1 tab PO TID enoxaparin [Lovenox] 80 mg/0.8 mL Syringe 70 mg SUBCUT BID Qty: 8 0RF magnesium L-lactate 84 mg tablet extended release 252 mg PO TID Qty: 90 0RF potassium chloride 20 mEq tablet extended release 20 meq PO BID Qty: 60 0RF enoxaparin [Lovenox] 80 mg/0.8 mL syringe 70 mg subcut BID Qty: 8 2RF metronidazole 500 mg tablet 500 mg PO BID Qty: 14 0RF Primary Care Provider: Starr Motley Referrals: Starr Motley MD [Primary Care Provider] - (this week) Disposition Disposition: Home, Self Care What to do if you have Problems For any increased pain, shortness of breath, bleeding, nausea or vomiting, chestpain, or any unexpected problems, contact your Primary Care Provider. Call [facility] ([phone]) or report to the closest Emergency Room. Call 911 if necessary. 12/30/22 1044 <Electronically signed by Guanako Richardson MD> Cosigner Signature (if applicable): CC: Dr. Starr Motley MD ~ Signed [facility] Work Phone: [phone]) 442-907605-19-2023 Miscellaneous Notes* Telephone Encounter - Raven Tran Ma - 10/05/2022 9:36 AM EDT Type of form: Records request from [employer] of [facility] Form received via mail When form is completed Form has been forwarded to Physician Desk: Dr. Tolu Tran Ma documented in this encounterGe[facility]03-22-2023 Miscellaneous Notes* Telephone Encounter - Bianca Yeboah LPN - 08/08/2022 8:15 AM EDT Patient notified.Bianca Yeboah LPN * Telephone Encounter - CARMEN Sweeney - 08/08/2022 7:31 AM EDT Negative for COVID flu documented in this encounterGeorgetown Behavioral Hospital03-21-2023 History of Present illness Narrative* Cara Harrison PA-C - 08/07/2022 8:05 PM EDT This note was created using Testinriter. Subjective Niurka Zhu is a 42 year old female. HPI Patient presents with sore throat, cough over the past 2 days. Throat worsened today so she came infor evaluation. No OTC meds used. No fever. [...] (HCC) S/P cholecystectomy SBO (small bowel obstruction) ([facility]) 05/25/2016 Short bowel syndrome Current Outpatient Medications [...] Administer at [facility] 3 mL 4 vitamin A (AQUASOL A) 10,000 unit capsule Take 1 capsule by mouth twice daily. 60 capsule 2 Vitamin E, dl, acetate, (VITAMIN E) 400 unit capsule Take 1 capsule by mouth once daily. 30 capsule2 ergocalciferol 50,000 unit capsule (VITAMIN D2, DRISDOL) Take 1 capsule by mouth one time a week. 4capsule 2 magnesium lactate ER (MAGTAB) 84 mg TbER Take one tablet between meals twice daily and take three tablets at bedtime (totaling 5 tablets per day). 150 tablet 0 pyridoxine, vitamin B6, (VITAMIN B6) 50 mg tablet Take 2 tablets by mouth once daily. 60 tablet 2 MULTIVIT-MINERALS/FOLIC ACID (CENTRUM MULTIGUMMIES ORAL) Take 2 tablets by mouth twice daily. Fenqbpoviiqeexc-Qbkmizkal-BE (BROMFED DM) 2-30-10 mg/5 mL syrup Take [...] meals. (Patient not taking: Reported on 08/07/2022) 50839 mL 2 vitamin A (AQUASOL A) 10,000 [...] 1 tablet by mouth before meals and atbedtime for 30 days. (Patient not taking: Reported [...] and rest - COVID WITH FLUA+B, ROUTINE Cara Harrison PA-C documented in this encounterGeorgetown Behavioral Hospital03-15-2023 Instructions* Patient Instructions* Merlyn Boyer APRN.DIRECTOR OF GROUP SALES - 08/01/2022 3:23 PM EDT Start Prednisone taper, take with food. May use Flexeril as needed for muscle tension, may make you sleepy. Continue supportive care at home. Heat, ice, gentle stretching. Recommend massage Schedule appointment for physical therapy. Follow up if symptoms do not improve. Yadira massage therapist at [facility] or [facility] [employer] documented in this encounterGeorgetown Behavioral Hospital03-15-2023 History of Present illness Narrative* Merlyn Boyer APRN.AKOSUA - 08/01/2022 2:40 PM EDT This is a 42 year old female who presents today with: Patient presents with: Acute Visit: neck issues HISTORY OF PRESENT ILLNESS: Niurka Zhu is a 42 year old female. Patient presents with: Acute Visit: neck issues Here in the office for ongoing neck pain. Was seen in [facility] on 07/02/2022. Refers that she slammed on [...] symptoms. Has tried chiropractor care without relief. Hasbeen applying tylenol and NSAIDS as needed. Neck [...] pain 01/11/2014 Depression DVT (deep venous thrombosis) ([facility]) July 2013 Hypertension, essential 01/13/2018 Low blood magnesium 03/02/2016 Protein C deficiency ([facility]) Protein S deficiency ([facility]) S/P cholecystectomy SBO (small bowel obstruction) ([facility]) 05/25/2016 Short bowel syndrome PAST SURGICAL HISTORY [...] mL injections for [address]. [address] [facility] diphenoxylate-atropine (LOMOTIL) 2.5-0.025 mg per tablet Take 1 tablet by mouth before meals and atbedtime for 30 days. vitamin A (AQUASOL A) [...] normal and symmetric. Sensation grossly intact. Good family development specialist strength. ASSESSMENT/PLAN: 1. History of neck pain [...] effects were discussed and patient voices understanding. Merlyn Boyer APRN.AKOSUA This note was partially generated using Magick.nu voice recognition system. Note was reviewed for accuracy. There may be minor misspellings or grammar miscues with Magick.nu voice recognition. documented in this encounterGeorgetown Behavioral Hospital02-14-2023 Miscellaneous Notes* Telephone Encounter - Venecia Jesika - 07/03/2022 7:34 AM EST Patient given results and verbalized understanding of instructions given. Venecia Canchola * Telephone Encounter - Cara Harrison PA-C - 07/02/2022 3:14 PM EST I called and left message for patient to return call. Please try again or if she calls back let herknow her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 Specialty Start Date End Date Starr Motley MD [address] [place], [place] 761101 PCP - General Family Medicine 06/11/[address] [place], [place] [id number] [facility] 11/15/20 Andrew Bear MD, PhD [address] [place] [address] [facility] 11/15/20 Cloth Weaver Relationship Specialty Start Date End Date Starr Motley MD [address] [place], [place] 554071 PCP - General Family Medicine 06/11/[address] [place], [place] [id number] [facility] Re[facility] Coordinator 11/15/20 Andrew Bear MD, PhD [address] [place], [place] 2834195 [facility] 11/15/20 Cloth Weaver Relationship Specialty Start Date End Date Starr Motley MD [address] [place], [place] [id number] PCP - General Family Medicine 06/11/[address] [facility] [place], [place] [id number] [facility]inator 11/15/20 Andrew Bear MD, PhD [address] [place], [place] [id number] [facility] 11/15/20 Cloth Weaver Relationship Specialty Start Date End Date Starr Motley MD [address] [place], [place] 550531 PCP - General Family Medicine 06/11/[address] [place], [place] [id number] [facility] Coordinator 11/15/20 Andrew Bear MD, PhD [address] [place] [address] [facility] 11/15/20 Cloth Weaver Relationship Specialty Start Date End Date Starr Motley MD [address] [place] [address] PCP - General Family Medicine 06/11/[address] [place] [address] [facility] Coordinator 11/15/20 Andrew Bear MD, PhD [address] [place] [address] [facility] 11/15/20 Cloth Weaver Relationship Specialty Start Date End Date Starr Motley MD [address] [place] [address] PCP - General Family Medicine 06/11/[address] [place] [address] [facility] Coordinator 11/15/20 Andrew Bear MD, PhD [address] [place] [address] [facility] 11/15/20 Cloth Weaver Relationship Specialty Start Date End Date Starr Motley MD [address] [place] [address] PCP - General Family Medicine 06/11/[address] [place] [address] [facility] Coordinator 11/15/20 Andrew Bear MD, PhD [address] [place] [address] [facility] 11/15/20 Cloth Weaver Relationship Specialty Start Date End Date Starr Motley MD [address] [place], [place] [id number] PCP - General Family Medicine 06/11/[address] [place], [place] [id number] [facility] Coordinator 11/15/20 Andrew Bear MD, PhD [address] [place] [address] [facility] 11/15/20 Cloth Weaver Relationship Specialty Start Date End Date Starr Motley MD [facility] [place], [place] [id number] PCP - General Family Medicine 06/11/[address] [place] [address] [facility] Rehab Coordinator 11/15/20 Andrew Bear MD, PhD [address] [place] [address] [facility] 11/15/20 Cloth Weaver Relationship Specialty Start Date End Date Starr Motley MD [address] [place], [place] 898131 PCP - General Family Medicine 06/11/[address] [place] [address] [facility] Coordinator 11/15/20 Andrew Bear MD, PhD [address] [place], [place] 9279695 [facility] 11/15/20 Cloth Weaver Relationship Specialty Start Date End Date Starr Motley MD [address] [place], [place] [id number] PCP - General Family Medicine 06/11/17 Christie Ling, RD [address] [place] [address] [facility] Coordinator 11/15/20 Andrew Bear MD, PhD [address] [place], [place] 7255895 [facility] 11/15/20 Cloth Weaver Relationship Specialty Start Date End Date Starr Motley MD [address] [place], [place] [id number] PCP - General Family Medicine 06/11/17 Christie Ling, RD [address] [facility] [place], [place] [id number] [facility] Coord[facility] 11/15/20 Andrew Bear MD, PhD [address] [place], [place] [id number] [facility] 11/15/20 Merlyn Boyer APRN.DIRECTOR OF GROUP SALES [address] [place] [address] Site Promotion Agent Family Medicine 04/26/24 Bob Aviles APRN.DIRECTOR OF GROUP SALES [address] [place] [address] Site Promotion Agent [facility] 05/05/24 Cloth Weaver Relationship Specialty Start Date End Date Starr Motley MD [address] [place] [address] PCP - General Family Medicine 06/11/[address] [place], [place] [id number] [facility] Coordinator 11/15/20 Andrew Bear MD, PhD [address] [place] [address] [facility] 11/15/20 Merlyn Boyer APRN.DIRECTOR OF GROUP SALES [address] [place] [address] Site Promotion Agent Family [facility] 04/26/24 Bob Aviles APRN.DIRECTOR OF GROUP SALES [address] [place] [address] Site Promotion Agent [facility] 05/05/24 Cloth Weaver Relationship Specialty Start Date End Date Starr Motley MD [address] [place] [address] PCP - General Family Medicine 06/11/[address] [place], [place] [id number] [facility] Re[facility] Coordinator 11/15/20 Andrew Bear MD, PhD [address] [place], [place] [phone] [facility] 11/15/20 Merlyn Boyer APRN.DIRECTOR OF GROUP SALES [address] [place] [address] [facility] 04/26/24 Bob Aviles APRN.DIRECTOR OF GROUP SALES [address] [place] [address] [facility] 05/05/24 Cloth Weaver Relationship Specialty Start Date End Date Starr Motley MD [address] [place] [address] PCP - General Family Medicine 06/11/[address] [place], [place] [id number] [facility] Coordinator 11/15/20 Andrew Bear MD, PhD [address] [place], [place] [id number] [facility] 11/15/20 Merlyn Boyer APRN.DIRECTOR OF GROUP SALES [address] [place] [address] [facility] 04/26/24 Bob Aviles APRN.DIRECTOR OF GROUP SALES [address] [place] [address] [facility] 05/05/24 Cloth Weaver Relationship Specialty Start Date End Date Starr Motley MD [address] [place] [address] PCP - General Family Medicine 06/11/[address] [place], [place] 9376695 [facility] Re[facility] Coordinator 11/15/20 Andrew Bear MD, PhD [address] [place], [place] 6353895 [facility] 11/15/20 Merlyn Boyer APRN.DIRECTOR OF GROUP SALES [address] [place] [address] [facility] 04/26/24 Bob Aviles APRN.DIRECTOR OF GROUP SALES [address] [place] [address] Formerly [facility] 05/05/24 Cloth Weaver Relationship Specialty Start Date End Date Starr Motley MD [address] [place] [address] PCP - General Family Medicine 06/11/[address] [place], [place] [id number] [facility] Re[facility] Coordinator 11/15/20 Andrew Bear MD, PhD [address] [place], [place] 5893995 [facility] 11/15/20 Merlyn Boyer APRN.DIRECTOR OF GROUP SALES [address] [place] [address] [facility] 04/26/24 Bob Aviles APRN.DIRECTOR OF GROUP SALES [address] [place] [address] Site Promotion Agent [facility] 05/05/24 Cloth Weaver Relationship Specialty Start Date End Date Starr Motley MD [address] [place] [address] PCP - General Family Medicine 06/11/[address] [facility] [place], [place] [id number] [facility] Rehab Coordinator 11/15/20 Andrew Bear MD, PhD [address] [place], [place] [phone] [facility] 11/15/20 Merlyn Boyer APRN.DIRECTOR OF GROUP SALES [address] [place] [address] [facility] 04/26/24 Bob Aviles, BUSINESS EDUCATION INSTRUCTOR.DIRECTOR OF GROUP SALES [address] [place] [address] [facility] 05/05/24 Cloth Weaver Relationship Specialty Start Date End Date Starr Motley MD [address] [place] [address] PCP - General Family Medicine 06/11/[address] [place] [address] [facility] Coordinator 11/15/20 Andrew Bear MD, PhD [address] [place] [address] [facility] 11/15/20 Merlyn Boyer, CAROL.DIRECTOR OF GROUP SALES [address] [place] [address] [facility] 04/26/24 Bob Aviles APRN.DIRECTOR OF GROUP SALES [address] [place] [address] [facility] 05/05/24 Cloth Weaver Relationship Specialty Start Date End Date Starr Motley MD [address] [place] [address] PCP - General Family Medicine 06/11/[address] [place], [place] [id number] [facility] Re[facility] Coordinator 11/15/20 Andrew Bear MD, PhD [address] [place], [place] [id number] [facility] 11/15/20 Merlyn Boyer APRN.DIRECTOR OF GROUP SALES [address] [place] [address] [facility] 04/26/24 Bob Aviles APRN.DIRECTOR OF GROUP SALES [address] [place] [address] [facility] 05/05/24 Cloth Weaver Relationship Specialty Start Date End Date Starr Motley MD [address] [place] [address] PCP - General Family Medicine 06/11/[address] [place], [place] 7272495 [facility] 11/15/20 Andrew Bear MD, PhD [address] [place], [place] [id number] [facility] 11/15/20 Merlyn Boyer APRN.DIRECTOR OF GROUP SALES [address] [place] [address] Site Promotion Agent Family [facility] 04/26/24 Bob Aviles APRN.DIRECTOR OF GROUP SALES [facility] [place] [address] Site Promotion [facility] 05/05/24 Cloth Weaver Relationship Specialty Start Date End Date Starr Motley MD [address] [place] [address] PCP - General Family Medicine 06/11/[address] [place], [place] [id number] [facility] 11/15/20 Andrew Bear MD, PhD [address] [place], [place] [id number] [facility] 11/15/20 Merlyn Boyer APRN.DIRECTOR OF GROUP SALES [address] [place] [address] Site Promotion [facility] 04/26/24 Bob Aviles APRN.DIRECTOR OF GROUP SALES [address] [place] [address] Site Promotion [facility] 05/05/24 Cloth Weaver Relationship Specialty Start Date End Date Starr Motley MD [address] [place] [address] PCP - General Family Medicine 06/11/[address] [place], [place] 2189295 [facility] Coord[facility] 11/15/20 Andrew Bear MD, PhD [address] [place], [place] 2863195 [facility] 11/15/20 Merlyn Boyer APRN.DIRECTOR OF GROUP SALES [address] [place] [address] [facility] 04/26/24 Bob Aviles APRN.DIRECTOR OF GROUP SALES [address] [place] [address] [facility] 05/05/24 Cloth Weaver Relationship Specialty Start Date End Date Starr Motley MD [address] [place] [address] PCP - General Family Medicine 06/11/[address] [place] [address] [facility] Re[facility] Coordinator 11/15/20 Andrew Bear MD, PhD [address] [place] [address] [facility] 11/15/20 Merlyn Boyer APRN.DIRECTOR OF GROUP SALES [address] [place] [address] Site Promotion Agent Family Medicine 04/26/24 Bob Aviles APRN.DIRECTOR OF GROUP SALES [address] [place] [address] Site Promotion Agent Family [facility] 05/05/24 Cloth Weaver Relationship Specialty Start Date End Date Starr Motley MD [address] [place] [address] PCP - General Family Medicine 06/11/[address] [place], [place] [id number] [facility] Re[facility] Coordinator 11/15/20 Andrew Bear MD, PhD [address] [place] [address] [facility] 11/15/20 Merlyn Boyer, CAROL.DIRECTOR OF GROUP SALES [address] [place] [address] Site [facility] 04/26/24 Bob Aviles APRN.DIRECTOR OF GROUP SALES [address] [place] [address] Site Promotion Agent [facility] 05/05/24 Cloth Weaver Relationship Specialty Start Date End Date Starr Motley MD [address] [place] [address] PCP - General Family Medicine 06/11/[address] [place] [address] [facility] Rehab Coordinator 11/15/20 Andrew Bear MD, PhD [address] [place] [address] [facility] 11/15/20 Merlyn Boyer APRN.DIRECTOR OF GROUP SALES [address] [place] [address] [facility] 04/26/24 09/30/24 Bob Aviles APRN.DIRECTOR OF GROUP SALES [address] [place] [address] [facility] 05/05/24 Cloth Weaver Relationship Specialty Start Date End Date Starr Motley MD [address] [place] [address] PCP - General Family Medicine 06/11/[address] [place] [address] [place] [address] Gut Rehab Coordinator 11/15/20 Andrew Bear MD, PhD [address] [place] [id number] [facility] [place] 11/15/20 Bob Aviles APRN.DIRECTOR OF GROUP SALES [address] [place] [address] [facility] 05/05/24 Cloth Weaver Relationship Specialty Start Date End Date Starr Motley MD [address] [place] [address] PCP - General Family Medicine 06/11/[address] [facility] [place] [place] 2713295 [facility] Rehab Coordinator 11/15/20 Andrew Bear MD, PhD [address] [place], [place] [phone] [facility] 11/15/20 Bob Aviles APRN.DIRECTOR OF GROUP SALES [address] [place] [address] Site Promotion Agent Family [facility] 05/05/24 Cloth Weaver Relationship Specialty Start Date End Date Starr Motley MD [address] [place] [address] PCP - General Family Medicine 06/11/[address] [place], [place] [id number] [facility] 11/15/20 Andrew Bear MD, PhD [address] [place], [place] 1214195 [facility] 11/15/20 Bob Aviles APRN.DIRECTOR OF GROUP SALES [address] [place] [address] Site Promotion [facility] 05/05/24 Cloth Weaver Relationship Specialty Start Date End Date Starr Motley MD [address] [place] [address] PCP - General Family Medicine 06/11/[address] [place], [place] 6502795 [facility] Re[facility] Coordinator 11/15/20 Andrew Bear MD, PhD [address] [place], [place] 3786695 [facility] 11/15/20 Bob Aviles, CAROL.DIRECTOR OF GROUP SALES [address] [place], [place] [id number] Site Promotion Agent Family [facility] 05/05/24 Team Status: Active Member Role/Relationship Status Dates Dr. Starr Motley MD Primary Care Provider Active Team Status: Inactive Member Role/Relationship Status Dates Dr. Starr Motley MD Primary Care Provider Active Start: November 13, 2024 End: November 13, 2024 Dr. Ganesh Ma DO Emergency Provider Active Start: November 13, 2024 End: November 13, 2024 Cloth Weaver Relationship Specialty Start Date End Date Starr Motley MD [address] [place], [place] [id number] PCP - General Family Medicine 06/11/[address] [place], [place] 7551095 [facility] Re[facility] Coord[facility] 11/15/20 Andrew Bear MD, PhD [address] [place], [place] 6394695 [facility] 11/15/20 Bob Aviles, CAROL.DIRECTOR OF GROUP SALES [address] [place], [place] [id number] [facility] 05/05/24 Cloth Weaver Relationship Specialty Start Date End Date Starr Motley MD [address] [place], [place] 721641 PCP - General Family Medicine 06/11/[address] [facility] [place], [place] 0434495 [facility] Re[facility] Coordinator 11/15/20 Andrew Bear MD, PhD [address] [place], [place] 3443795 [facility] 11/15/20 Bob Aviles APRN.DIRECTOR OF GROUP SALES [address] [place] [address] Site Promotion Agent [facility] 05/05/24 Cloth Weaver Relationship Specialty Start Date End Date Starr Motley MD [address] [place], [place] 546454 [phone] PCP - General Family Medicine 06/11/[address] [facility] [place], [place] 2424495 [facility] Re[facility] Coordinator 11/15/20 Andrew Bear MD, PhD [address] [place], [place] [phone] [facility] 11/15/20 Bob Aviles APRN.DIRECTOR OF GROUP SALES [address] [place] [address] Site Promotion Agent Family [facility] 05/05/24 Cloth Weaver Relationship Specialty Start Date End Date Starr Motley MD [address] [place] [address] PCP - General Family Medicine 06/11/[address] [place] [address] [facility] Coord[facility] 11/15/20 Andrew Bear MD, PhD [address] [place] [address] [facility] 11/15/20 Bob Aviles APRN.DIRECTOR OF GROUP SALES [facility] [place] [address] Site Promotion Agent [facility] 05/05/24 Cloth Weaver Relationship Specialty Start Date End Date Starr Motley MD [facility] [place], [place] 919491 PCP - General Family Medicine 06/11/[address] [place] [address] [facility] 11/15/20 Andrew Bear MD, PhD [address] [place] [address] [facility] 11/15/20 Bob Aviles APRN.DIRECTOR OF GROUP SALES [address] [place], [place] [id number] [phone] [facility] 05/05/24 Cloth Weaver Relationship Specialty Start Date End Date Starr Motley MD [address] [place], [place] [id number] [phone] PCP - General Family Medicine 06/11/[address] [place] [address] [facility] Coordinator 11/15/20 Andrew Bear MD, PhD [address] [place] [address] [facility] 11/15/20 Bob Aviles APRN.DIRECTOR OF GROUP SALES [address] [place] [address] Site Promotion Agent [facility] 05/05/24 Team Status: Inactive Member Role/Relationship Status Dates Dr. Starr Motley MD Primary Care Provider Active Start: November 13, 2024 End: November 13, 2024 Dr. Ganesh Ma DO Attending Provider Active Start: November 13, 2024 End: November 13, 2024 Dr. Ganesh Ma DO Emergency Provider Active Start: November 13, 2024 End: November 13, 2024 Team Status: Inactive Member Role/Relationship Status Dates Dr. Starr Motley MD Primary Care Provider Active Start: January 15, 2025 End: January 15, 2025 Ed Physician Provider Emergency Provider Active Start: January 15, 2025 End: January 15, 2025 Scheduled Active and Recently Administ ered Medications (unrecognized section and content) Medication Order 03/17/2023 03/18/2023 03/19/2023 ketorolac (Toradol) injection 15 mg (COMPLETED) 15 mg, IntraVENous, Once, On Sat03/19/23 at 1650, For 1 dose 171 (Given - Provid er: Mihai Barraza RN) sodium chloride 0.9 % bolus 1,000 mL (COMPLETED) 1,000 mL, IntraVENous, at 1,000 mL/hr, Administer over 1 Hours, Once, On Sat03/19/23 at 1650, For 1 dose 171 (New Bag - Prov ider: Mihai Barraza RN)1817 (Stopped - Provider: Mihai Barraza RN) FOR RECORDS PERTAINING TO PATIENTS WHO ARE [...] BE BASED ON THE PRIMARY CLINICAL RECORDS. [employer] [facility]. provides no warranty or guarantee of the accuracy or completeness of information in this document.
== END 2025-01-15 20:28 | disposition left against medical advice (07) ==
LOC: ED 20:31
PROVIDERS: PCP Family Medicine
DX: Z53.21 Procedure and treatment not carried out due to patient leaving prior to being seen by health care provider (principal)

== ENCOUNTER 2025-01-20 08:51 | Emergency (ER) | payer MEDICAID, SELFPAY ==
[2025-01-20 08:51] VITALS: BP 114/74; PULSE 69; RESP 16; TEMP 36.7; O2SAT 100; BMI 27.3
--- NOTE | 2025-01-20 09:11 | ED.VIS.DENTA ---
HPI History of Present Illness Chief Complaint: Dental Narrative Narrative: Patient is a 44-year-old female presenting to the emergency department for right upper dental pain. Patient has a past medical history of short gut syndrome, protein S and C deficiencies. Patient reports that she has had issues with her right upper teeth for almost the past year. States it improves at times and then will worsen again. States that she has had pain in on the right upper side for the past 3 days. Reports that she has been taking Tylenol and Motrin for pain control. She denies any recent antibiotic use for this. Denies any difficulty breathing or swallowing. Reports a little bit of swelling to the right upper cheek. Denies any fever, chills, nausea or vomiting. Denies any changes to her speech. She states that with her insurance that she can only have a partial done every 8 years and her last one was 3 years ago which is why she has been unable to go to the dentist to fix this issue. [facility] Medical History Anxiety Smoker Kidney stone Short gut syndrome Protein S deficiency Protein C deficiency Blood clotting disorder Home Medications ?Medication ?Instructions ?Recorded ?Last Taken ?Type ergocalciferol (vitamin D2) 1,250 50,000 unit PO MOTUWETH supplement 10/09/14 01/20/25 History mcg (50,000 unit) capsule calcium carbonate (Calcium 500) 500 mg PO BID #60 tabs 08/22/21 01/20/25 Rx [id number] 2.25 mg-folic 1 tab PO TID 10/31/21 Unknown History acid 100 [id number] acid tablet magnesium L-lactate 84 mg 252 mg (3 x 84 mg) PO TID 03/31/22 Unknown Rx tablet,extended release SUPPLEMENT #90 tabs sulfamethoxazole 800 1 tab PO BID #14 TABLETS 11/13/24 Unknown Rx mg-trimethoprim 160 mg tablet clindamycin HCl 150 mg capsule 450 mg (3 x 150 mg) PO TID 10 days 01/20/25 Unknown Rx (Cleocin HCl) #90 caps Allergy/AdvReac Type Severity Reaction Status Date / Time adhesive Allergy Itching Verified 01/20/25 09:08 amoxicillin (Amoxicillin) Allergy Hives Verified 01/20/25 09:08 Penicillins Allergy Hives Verified 01/20/25 09:08 Family History Grandmother Diabetes Heart disease Mother Heart disease Grandfather Lung cancer Liver cancer Brain cancer Surgical History History of removal of ovarian cyst S/P hernia repair STEPS procedure Hx of cholecystectomy Social History Smoking Status: Current every day smoker tobacco type: e-cigarettes alcohol intake: current alcohol intake frequency: holidays/special occasions only substance use type: does not use caffeine: Yes what type of physical activity do you participate in: none seatbelt use: always do you feel safe at home: Yes additional social history: - Lul Patient works with [employer] ROS ROS ED ROS Narrative See HPI EXAM Physical Exam Narrative Exam Narrative: Vital signs: Reviewed General: Alert and oriented x 3. No acute distress HEENT: Head is normocephalic and atraumatic, sinuses nontender, pupils equal round and reactive. Nares are patent. Dental caries to the right upper molars. There is some dental pain on palpation of these teeth. There is no gingival swelling or tenderness. No evidence of a periapical abscess. Uvula is midline. There is no posterior oropharynx swelling or redness. There is no evidence of Ludwigs angina. No tongue deviation. Mild swelling noted to the right upper cheek. There is no erythema or warmth. No fluctuance. Neck: Supple without lymphadenopathy nontender. Trachea midline. No erythema, warmth or swelling. Able to range neck actively without pain. Cardiovascular: Regular rate and rhythm, no murmurs. No rubs or gallops. Normal S1 and S2 Respiratory: Clear to auscultation bilaterally. No wheezes, rales, rhonchi Abdominal: Soft and nontender. Normal bowel sounds. No guarding or rebound. Nonsurgical abdomen Extremities: No tenderness. No bruising. Normal range of motion. Normal sensation. Skin: No rash or redness. Neurological: Cranial nerves II through XII are grossly intact. Normal strength and sensation. Normal cerebellar function The rest of the physical exam is unremarkable Const Vital Signs: 01/20/25 08:51 01/20/25 09:53 Temperature 98.1 F 98.3 F Temperature Source Oral Pulse Rate 69 89 Respiratory Rate 16 16 Blood Pressure 114/74 132/78 H Blood Pressure Mean 87 96 Pulse Ox 100 100 Oxygen Delivery Method Room Air MDM MDM MDM Narrative Medical decision making narrative: Patient is a 44-year-old female presenting to the emergency department for right upper dental pain. She has had this issue before. She was seen and examined. Vitals are stable. Resting in bed comfortably no acute distress. She is afebrile. No evidence of a gingival or periapical abscess that can be drained. No swelling noted on oropharynx exam. No evidence of Janes's angina. Some mild swelling noted to the cheek but there is no fluctuance, warmth or evidence of an abscess that could be drained. No evidence of cellulitis. Patient was given her first dose of clindamycin here. She does have a penicillin allergy. She was given IM Toradol for pain control. Instructed to continue taking Tylenol and Motrin at home for pain control. Given a dental referral sheet. Instructed to follow-up with a dentist to soon as possible. Strict to return with any fevers, chills, worsening of the facial swelling, difficulty tolerate secretions, difficulty breathing. Patient is agreeable to plan. Patient discharged from the Emergency Department. I do not feel that the patient's evaluation reveals any acute reason for admission at this time. I instructed them to either follow-up with their primary care physician or promptly return to the Emergency Department for reevaluation should symptoms worsen or new symptoms develop. I explained what symptoms would indicate the need to return to the emergency department. Shared decision making was used. The patient voiced understanding of the treatment plan and is agreeable with it. Clinical impression Dental caries History & Record Review Discussion w/independent historian: Patient and Significant other Additional record(s) reviewed:: Prior ED visit Discharge Plan Triage Chief Complaint: Dental ED Provider: Angelina Patel Dx/Rx/DC Orders Clinical Impression: Dental caries Instructions: ED Dental Pain Prescriptions: New clindamycin HCl [Cleocin HCl] 150 mg capsule 450 mg PO TID 10 Days Qty: 90 0RF No Action ergocalciferol (vitamin D2) 50,000 UNIT capsule 50,000 unit PO MOTUWETH calcium carbonate [Calcium 500] 500 mg calcium (1,250 mg) tablet,chewable 500 mg PO BID Qty: 60 0RF [id number] 2.25 mg iron- 100 mcg Tablet 1 tab PO TID magnesium L-lactate 84 mg tablet extended release 252 mg PO TID Qty: 90 0RF sulfamethoxazole-trimethoprim 800-160 mg tablet 1 tab PO BID Qty: 14 0RF Primary Care Provider: José Luis Motley Referrals: José Luis Motley MD [Primary Care Provider] - 2 Days Activity Restrictions/Additional Instructions: Please take the antibiotic 3 tablets 3 times a day for 10 days. Follow-up with your dentist to soon as possible. Your evaluation in the Emergency Department did not reveal any acute reason for admission. However, I want to emphasize that you may be early in the course of a disease process or illness even if it is not present. For this reason you should follow-up within 24 hours for reevaluation with either your primary care physician or if necessary back here in the Emergency Department. You should return to the Emergency Department immediately if your symptoms worsen or new symptoms develop. Print Language: Gambian Disposition Disposition: Home, Self Care Discharge Date/Time: 01/20/25 09:53
[2025-01-20] MEDS: Ketorolac 30 MG/ML Syringe IM (09:22)
[2025-01-20 09:53] VITALS: BP 132/78; PULSE 89; RESP 16; TEMP 36.8; O2SAT 100
== END 2025-01-20 09:53 | disposition home or self-care (01) ==
PROVIDERS: Emergency Provider Student in an Organized Health Care Education/Training Program; PCP Family Medicine; Visit Provider Student in an Organized Health Care Education/Training Program
DX: K02.9 Dental caries, unspecified (principal); F41.9 Anxiety disorder, unspecified; D68.59 Other primary thrombophilia; K90.829 Short bowel syndrome, unspecified; F17.290 Nicotine dependence, other tobacco product, uncomplicated; Z88.0 Allergy status to penicillin; Z90.49 Acquired absence of other specified parts of digestive tract; Z79.899 Other long term (current) drug therapy
CPT/HCPCS: 96372; 99282

== ENCOUNTER 2025-01-22 20:24 | Emergency (ER) | payer MEDICAID, SELFPAY ==
[2025-01-22 20:25] VITALS: BP 127/90; PULSE 58; RESP 16; TEMP 37; O2SAT 98; BMI 26.6
--- NOTE | 2025-01-22 22:00 | ED.VIS.DENTA ---
HPI History of Present Illness Chief Complaint: Dental Narrative Narrative: 44-year-old female presents with her boyfriend because of pain and swelling of her right upper gums that she has had for the last few days. She states she was seen in the emergency department 3 days ago and put on clindamycin but did not have this problem at that time. She has pain in her right upper jaw and gums that is getting worse. No fevers but may be chilled. Denies difficulty breathing or any other symptoms. 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 Blood clotting disorder Home Medications ?Medication ?Instructions ?Recorded ?Last Taken ?Type ergocalciferol (vitamin D2) 1,250 50,000 unit PO MOTUWETH supplement 10/09/14 01/20/25 History mcg (50,000 unit) capsule calcium carbonate (Calcium 500) 500 mg PO BID #60 tabs 08/22/21 01/20/25 Rx [id number] 2.25 mg-folic 1 tab PO TID 10/31/21 Unknown History acid 100 [id number] acid tablet magnesium L-lactate 84 mg 252 mg (3 x 84 mg) PO TID 03/31/22 Unknown Rx tablet,extended release SUPPLEMENT #90 tabs clindamycin HCl 150 mg capsule 450 mg (3 x 150 mg) PO TID 10 days 01/20/25 Unknown Rx (Cleocin HCl) #90 caps cyanocobalamin (vitamin B-12) mcg 01/22/25 Unknown History 1,000 mcg/mL injection solution vitamin E (dl, acetate) 180 mg 180 mg PO DAILY 01/22/25 Unknown History (400 unit) capsule Allergy/AdvReac Type Severity Reaction Status Date / Time adhesive Allergy Itching Verified 01/22/25 20:25 amoxicillin (Amoxicillin) Allergy Hives Verified 01/22/25 20:25 Penicillins Allergy Hives Verified 01/22/25 20:25 Family History Grandmother Diabetes Heart disease Mother Heart disease Grandfather Lung cancer Liver cancer Brain cancer Surgical History History of removal of ovarian cyst S/P hernia repair STEPS procedure Hx of cholecystectomy Social History Smoking Status: Current every day smoker tobacco type: e-cigarettes alcohol intake: current alcohol intake frequency: holidays/special occasions only substance use type: does not use caffeine: Yes what type of physical activity do you participate in: none seatbelt use: always do you feel safe at home: Yes additional social history: - Lul Patient works with [employer] JOE ROS ED ROS Narrative Review of systems positive for dental infection, on clindamycin. Pain and swelling of right upper gum above incisor. No difficulty swallowing, no fever EXAM Physical Exam Narrative Exam Narrative: Afebrile. Vital signs noted. Nontoxic-appearing. Dental inspection shows numerous dental caries. There is a gingival/fluctuant abscess on the gumline of the right upper lip above the incisor. No drooling or trismus. Airway patent. Const Vital Signs: 01/22/25 20:25 01/22/25 22:24 Temperature 98.6 F 98 F Temperature Source Oral Pulse Rate 58 L 51 L Respiratory Rate 16 18 Blood Pressure 127/90 H 112/69 Blood Pressure Mean 102 83 Pulse Ox 98 51 Oxygen Delivery Method Room Air MDM MDM MDM Narrative Medical decision making narrative: I do not feel differential diagnosis is applicable. Given her gingival abscess, lidocaine 2% jelly was ordered with plan for needle aspiration versus incision and drainage. She will continue the clindamycin and told she should not smoke/vape. She should follow-up with a dentist. I was told by the RN that she has needle phobia and did not want the procedure performed and prefers to follow-up with her dentist tomorrow. She did take the Morgan tablet for analgesia and advised to continue the clindamycin. Return instructions reviewed. Disposition is discharged home in stable condition. History & Record Review Discussion w/independent historian: Patient Additional record(s) reviewed:: Prior ED visit Discharge Plan Triage Chief Complaint: Dental ED Provider: Alfonso Hernandez Dx/Rx/DC Orders Clinical Impression: Gingival abscess, Pain due to dental caries Instructions: ED Dental Cavity, ED Dental Abscess, ED Tooth Abscess Prescriptions: No Action ergocalciferol (vitamin D2) 50,000 UNIT capsule 50,000 unit PO MOTUWETH calcium carbonate [Calcium 500] 500 mg calcium (1,250 mg) tablet,chewable 500 mg PO BID Qty: 60 0RF [id number] 2.25 mg iron- 100 mcg Tablet 1 tab PO TID magnesium L-lactate 84 mg tablet extended release 252 mg PO TID Qty: 90 0RF clindamycin HCl [Cleocin HCl] 150 mg capsule 450 mg PO TID 10 Days Qty: 90 0RF cyanocobalamin (vitamin B-12) 1,000 mcg/mL solution Patient Comments: INJECT 1 ML (CC) INTRAMUSCULARLY ONCE A WEEK FOR 30 DAYS, THEN TAKE 1ML ONCE A MONTH. vitamin E (dl, acetate) 180 mg (400 unit) capsule 180 mg PO DAILY Primary Care Provider: José Luis Motley Referrals: José Luis Motley MD [Primary Care Provider] - Activity Restrictions/Additional Instructions: Follow-up with your dentist tomorrow. Continue the clindamycin. Return with new or worsening symptoms. Print Language: Latvian Disposition Disposition: Home, Self Care Discharge Date/Time: 01/22/25 22:25
--- OUTSIDE RECORDS SUMMARY | 2025-01-22 22:03 | XMS RPT_ITS | CCD ---
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 [id number] [place] [address] [place] Antithrombin Ag actual/jeanette l IA (PPP) [Relative mass conc]on 01-20-2025 Antithrombin Ag IA Qn (PPP) 66 % Low 80-120 [facility] Comment on above: Order Comment: Speci men Type: BLOOD SPECIMENOrdering Facility: [facility] Address: [address] [place] [address] Performed By: #### 2 7811-9, 19779-2 ####[facility] [id number] [place] [address] [place] BETA 2 GLYCOPROTEIN, IGGon 0 01-20-2025 Beta 2 glycoprotein 1 IgG IA Qn <9 Normal <20 [facility] Comment on above: Order Comment: Speci men Type: BLOOD SPECIMENOrdering Facility: [facility] Address: [address] [place] [address] Result Comment: <20 SGU Negative 20-80 SGU Low Positive >80 SGU High Positive These results were obtained with the [employer] QUANTA Lite B2 GPI IgG TERENCE. B2 GPI IgG values obtained with different manufacturers' assay methods may not be used interchangeably. The magnitude of the reported IgG levels cannot be correlated to an endpoint titer. Performed By: #### C ARDIG, BETA2G, BETA2M, 5076-5, CARDIM ####[facility] LABCLIA [id number] [place] [id number] [place] BETA 2 GLYCOPROTEIN, IGMon 0 01-20-2025 Beta 2 glycoprotein 1 IgM IA Qn <9 Normal <20 [facility] Comment on above: Order Comment: Speci men Type: BLOOD SPECIMENOrdering Facility: [facility] Address: [address] [place] [address] Result Comment: <20 SMU Negative 20-80 SMU Low Positive >80 SMU High positive These results were obtained with the CrucialtecA Lite B2 GPI IgM TERENCE. B2 GPI IgM values obtained with different manufacturers' assay methods may not be used interchangeably. The magnitude of the reported IgM levels cannot be correlated to an endpoint titer. Performed By: #### C ARDIG, BETA2G, BETA2M, 5076-5, CARDIM ####[facility] LABCLIA [id number] [place] [address] [place] Basic metabolic 2000 panelon 01-20-2025 Anion gap [Moles/Vol] 11 mmol/L Normal 8-15 [facility] Comment on above: Order Comment: Speci men Type: BLOOD SPECIMENOrdering Facility: [facility] Address: [address] [place] [address] Performed By: #### 2 4321-2, ####[facility] [id number] [place] [address] [place] Calcium [Mass/Vol] 9.0 mg/dL Normal 8.5-10.2 [facility] Comment on above: Order Comment: Speci men Type: BLOOD SPECIMENOrdering Facility: [facility] Address: [address] [place] [address] Performed By: #### 2 4321-2, ####[facility] MILLTOWNCLIA [id number] [place] [address] [place] Chloride [Moles/Vol] 102 mmol/L Normal 98-107 [facility] Comment on above: Order Comment: Speci men Type: BLOOD SPECIMENOrdering Facility: [facility] Address: [address] [place] [address] Performed By: #### 2 4321-2, ####[facility] [id number] [place] [address] [place] CO2 [Moles/Vol] 24 mmol/L Normal 22-30 [facility] Comment on above: Order Comment: Speci men Type: BLOOD SPECIMENOrdering Facility: [facility] Address: [address] [place] [address] Performed By: #### 2 4321-2, ####[facility] [id number] [place] [address] [place] Creatinine [Mass/Vol] 0.59 mg/dL Normal 0.58-0.96 [facility] Comment on above: Order Comment: Speci men Type: BLOOD SPECIMENOrdering Facility: [facility] Address: [address] [place] [address] Performed By: #### 2 4321-2, ####[facility] [id number] [place] [address] [place] eGFRcr SerPlBld CKD-EPI 2020 115 mL/min/1.73m??? Normal >=60 [facility] Comment on above: Order Comment: Speci men Type: BLOOD SPECIMENOrdering Facility: [facility] Address: [address] [place] [address] Result Comment: Eve mated Glomerular Filtration Rate [...] reflect actual GFR. Performed By: #### 2 4321-2, ####[facility] KORTNEYWNCLIA [id number] [place] [address] [place] Glucose [Mass/Vol] 85 mg/dL Normal 74-99 [facility] Comment on above: Order Comment: Speci men Type: BLOOD SPECIMENOrdering Facility: [facility] Address: [address] [place] [address] Result Comment: The [place] Diabetes Association (ADA) provides guidance for cutoff [...] Standards of Medical Care in Diabetes 2016, [place] [employer]. Diabetes Care. 2016.39(Suppl 1). Performed By: #### 2 4321-, ####[facility] CENTERJose Cruz [id number] [place] [address] [place] Potassium [Moles/Vol] 3.4 mmol/L Low 3.7-5.1 [facility] Comment on above: Order Comment: Speci men Type: BLOOD SPECIMENOrdering Facility: [facility] Address: [address] [place] [address] Performed By: #### 2 4321-2, ####[facility] [id number] [place] [address] [place] Sodium [Moles/Vol] 137 mmol/L Normal 136-144 [facility] Comment on above: Order Comment: Speci men Type: BLOOD SPECIMENOrdering Facility: [facility] Address: [address] [place] [address] Performed By: #### 2 4321-2, 57272-4 ####[facility] [id number] [place] [address] [place] Urea nitrogen [Mass/Vol] 10 mg/dL Normal 7-21 [facility] Comment on above: Order Comment: Speci men Type: BLOOD SPECIMENOrdering Facility: [facility] Address: [address] [place] [address] Performed By: #### 2 4321-2, 28833-8 ####[facility]OSPITALNCA [id number] [address] [place] CARDIOLIPIN IGG ABSon 2024 Cardiolipin IgG IA Qn (S) <9.0 Normal <15.0 [facility] Comment on above: Order Comment: Speci men Type: BLOOD SPECIMENOrdering Facility: [facility] Address: [address] [place] [address] Result Comment: <15 GPL Negative 15-20 GPL Indeterminate >20 GPL Positive The following results were obtained with the [employer] QUANTA Lite ANAT IgG III TERENCE. Cardiolipin IgG values obtained with the different manufacturers' assay methods may not be used interchangeably. The magnitude of the reported IgG levels cannot be correlated to an endpoint titer. Performed By: #### C ARDIG, BETA2G, BETA2M, 5076-5, CARDIM ####[facility] LABCLIA [id number] [address] [place] CARDIOLIPIN IGM ABSon 2024 Cardiolipin IgM IA Qn (S) <9.0 Normal <12.5 [facility] Comment on above: Order Comment: Speci men Type: BLOOD SPECIMENOrdering Facility: [facility] Address: [address] [place] [address] Result Comment: <12. 5 MPL Negative 12.5-20 MPL Indeterminate >20 MPL Positive The following results were obtained with the Inova QUANTA Lite ANAT IgM III TERENCE. Cardiolipin IgM values obtained with the different manufacturers' assay methods may not be used interchangeably. The magnitude of the reported IgM levels cannot be correlated to an endpoint titer. ??? Performed By: #### C AMANDA MORA2G, BETA2M, 5076-5, VELIA ####[facility] LABCLIA [id number] [address] OF [facility] CNOVSPon 01-20-2025 CNOVSP Visit (SP) Office (HEMAWS) NIURKA ZHU ([id number]) 1980 F Date Time Provider Department 01/20/25 1:00 PM KYLER ESPINOSA During your visit today, we recorded the following information about you: Temperature Pulse Blood pressure Weight 98.1 degrees 63/minute 108/71 69.4 kg Height 1.6 m Kyler Espinosa DO 01/20/2025 1:56 PM Signed Patient referred by Dr. Elmore for protein C deficiency. HPI: The patient is a 44-year-old female with a past medical history as outlined below. 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 No h/o VTE prior to 2013. Recalls when sledding Jun or July 2013, she was supine on a sled and who was getting on with her slipped and fell on her back. Got the wind knocked out of her. Didn't lose consciousness. No cracked ribs. 's palm hit her right flank area. Several weeks later was very sensitive to touch on her back--caused pain, even the lightest touch. Presented to [facility] 08/18/2013 with n/v and diarrhea for several days. Recalls feeling a popping sensation in right abdomen. Called squad and taken to [facility] 08/18/2013. CT revealed perforated viscus. Life-flighted to [facility] in [place]. In August 2013, was admitted to [facility] SICU on 08/27/2013 after presenting to an outside hospital with a 2-week history of nausea vomiting, abdominal pain and diarrhea and septic shock. She had an IUD removed on 08/19/2013. She underwent paracentesis on 08/26 at the outside hospital where an 2 L of dark reddish-brown fluid was removed. Subsequently grew gram-negative rods. Taken to surgery on 08/27 for exploratory laparoscopy and was found to have perforated jejunum with ischemic bowel. She was transferred to [facility] at that point. The CT of the abdomen pelvis done with IV contrast on 08/30 demonstrated thrombosis of the infrarenal aorta, distal SMA or SMA branch about 4 cm from the origin. Single right and left renal arteries were observed. No thrombosis. Portal vein and intrahepatic portal vein branches were patent. Splenic vein was patent. SMV was occluded 1 to 2 cm caudal from the port of splenic confluence. During that hospitalization she was found to have low protein C, protein S and Antithrombin. The protein C and protein S were normal on subsequent measurements. Most recent Antithrombin measurement on 03/19/2014 was low at 72%. It was 38% on 08/28/2013. Quit smoking at that time. Was on anticoagulation up until about 2 1/2 years ago. She's not sure why it was stopped. Recently started on B12 injections. Two pregnancies prior to above. First --pre-eclam psia. Delivered 2 weeks early. Second --uncomplic ated. No miscarriages. PAST MEDICAL HISTORY Diagnosis Date Back pain Chest pain 01/11/2014 Depression DVT (deep venous thrombosis) ([facility]) July 2013 Hypertension, essential 01/13/2018 Low blood magnesium 03/02/2016 Protein C deficiency (HCC) Protein S deficiency ([facility]) S/P cholecystectomy SBO (small bowel obstruction) ([facility]) 05/25/2016 Short bowel syndrome PAST SURGICAL HISTORY Procedure Laterality Date ; REMOVAL OF SMALL INTESTINE 09/15/13 11 in. small intestine remain LAP PARTIAL COLECTOMY W/ANASTOMOSIS 09/15/13 REMOVAL GALLBLADDER 2003 potassium chloride ER (KLOR-CON) 20 mEq tablet Take 1 tablet by mouth once daily. cyanocobalamin (VITAMIN B-12) 1,000 mcg/mL Inject 1 mL intramuscularly one time a week for 30 days, THEN 1 mL once every month. Needle, Disp, 25 G 25 gauge x 1 ndle Use for B12 injections ergocalciferol 50,000 unit capsule (VITAMIN D2, DRISDOL) Take 1 capsule by mouth four times a week. Vitamin E, dl, acetate, (VITAMIN E) 400 unit capsule Take 1 capsule by mouth once daily. DEKAS PLUS, FOLIC ACID, 200 mcg-1,000 mcg-10 mg cap Take 1 capsule by mouth once daily magnesium lactate ER (MAGTAB) 84 mg TbER Take 3 tablets by mouth three times a day. (Patient not taking: Reported on 01/20/2025) naproxen (NAPROSYN) 500 mg tablet Take 1 tablet by mouth two times a day with meals. FOR PAIN. TAKE WITH FOOD. (Patient not taking: Reported on 01/20/2025) ALLERGIES Allergen Reactions Adhesive Rash, Itching Amoxicillin Hives Penicillins Hives SOCIAL HISTORY[1] FAMILY HISTORY Problem Relation Age of Onset Hypertension Mother Heart Mother Psychiatry Father bi-polar Diabetes Maternal Grandmother Breast Cancer Maternal Aunt MGM--DVTs. Maternal aunt--DVTs. REVIEW OF SYSTEMS: Constitutional: No episodes of fever and night sweats. Normal appetite. Neuro: No WARE, vertigo, dizziness and imbalance. No symptoms of neuropathy. HEENT: No recent change in voice, vision or hearing. Resp: No cough, wheeze and hemoptysis. No shortness of breath at rest. No SANTIZO. CVS: No exertional chest pain, PND, orthopnea and LE ed (more content not included)... Normal [facility] Cardiolipin IgA Ser IA-aCnco n 01-20-2025 Cardiolipin IgA IA Qn (S) <9.0 Normal <12.0 [facility] Comment on above: Order Comment: Speci men Type: BLOOD SPECIMENOrdering Facility: [facility] Address: [facility] KAYY DELLA, [place] [id number] Result Comment: <12 APL Negative 12-20 APL Indeterminate >20 APL Positive The following results were obtained with the [employer] QUANTA Lite ANAT IgA III TERENCE. Cardiolipin IgA values obtained with the different manufacturers' assay methods may not be used interchangeably. The magnitude of the reported IgA levels cannot be correlated to an endpoint titer. Performed By: #### C ARDIG, BETA2G, BETA2M, 5076-5, CARDIM ####[facility] [id number] [address] D dimer FEU PPP-mCncon 01-20 Fibrin D-dimer FEU (PPP) [Mass/Vol] 490 ng/mL FEU Normal <500 [facility] Comment on above: Order Comment: Speci men Type: BLOOD SPECIMENOrdering Facility: [facility] Address: [address] [place] [address] Result Comment: Froz en Plasma Aliquot Performed By: #### 4 8065-7 ####[facility] [id number] [address] D-DIMEROrdered By: Demian Tse cson on 01-20-2025 Fibrin D-dimer FEU (PPP) [Mass/Vol] [address] [facility] Comment on above: Frozen Plasma Aliquo t Emergency Department Summary on 01-20-2025 Emergency Department Summary [facility] Medical Records Department [address] [place] [address] Emergency Department Summary 01/20/25 MR#: [id number] Acct: [id number] Name: NIURKA ZHU Rep #: [id number] : 1980 44 From: Angelina Patel MD PCP: Dr. Starr Motley MD Status:DEP ER Location: ED HPI History of Present Illness Chief Complaint: Dental Narrative Narrative: Patient is a 44-year-old female presenting to the emergency department for right upper dental pain. Patient has a past medical history of short gut syndrome, protein S and C deficiencies. Patient reports that she has had issues with her right upper teeth for almost the past year. States it improves at times and then will worsen again. States that she has had pain in on the right upper side for the past 3 days. Reports that she has been taking Tylenol and Motrin for pain control. She denies any recent antibiotic use for this. Denies any difficulty breathing or swallowing. Reports a little bit of swelling to the right upper cheek. Denies any fever, chills, nausea or vomiting. Denies any changes to her speech. She states that with her insurance that she can only have a partial done every 8 years and her last one was 3 years ago which is why she has been unable to go to the dentist to fix this issue. [facility] Medical History Anxiety Smoker Kidney stone Short gut syndrome Protein S deficiency Protein C deficiency Blood clotting disorder Home Medications ???Medication ???Instructions ???Recorded ???Last Taken ???Type ergocalciferol (vitamin D2) 1,250 50,000 unit PO MOTUWETH supplemen t 10/09/14 01/20/25 History mcg (50,000 unit) capsule calcium carbonate (Calcium 500) 500 mg PO BID #60 tabs 08/22/21 Rx [id number] 2.25 mg-folic 1 tab PO TID 10/31/21 Unknown Hist ory acid 100 [id number] acid tablet magnesium L-lactate 84 mg 252 mg (3 x 84 mg) PO TID 03/31/22 Unknown Rx tablet,extended release SUPPLEMENT #90 tabs sulfamethoxazole 800 1 tab PO BID #14 TABLETS 11/13/24 Unknown Rx mg-trimethoprim 160 mg tablet clindamycin HCl 150 mg capsule 450 mg (3 x 150 mg) PO TID 10 days 01/20/25 Unknown Rx (Cleocin HCl) #90 caps Allergy/AdvReac Type Severity Reaction Status Date / Time adhesive Allergy Itching Verified 01/20/25 09:08 amoxicillin (Amoxicillin) Allergy Hives Verified 01/20/25 09:08 Penicillins Allergy Hives Verified 01/20/25 09:08 Family History Grandmother Diabetes Heart disease Mother Heart disease Grandfather Lung cancer Liver cancer Brain cancer Surgical History History of removal of ovarian cyst S/P hernia repair STEPS procedure Hx of cholecystectomy Social History Smoking Status: Current every day smoker tobacco type: e-cigarettes alcohol intake: current alcohol intake frequency: holidays/special occasions only substance use type: does not use caffeine: Yes what type of physical activity do you participate in: none seatbelt use: always do you feel safe at home: Yes additional social history: - Ganesh Patient works with [employer] DIAZ ROS ED ROS Narrative See HPI EXAM Physical Exam Narrative Exam Narrative: Vital signs: Reviewed General: Alert and oriented x 3. No acute distress HEENT: Head is normocephalic and atraumatic, sinuses nontender, pupils equal round and reactive. Nares are patent. Dental caries to the right upper molars. There is some dental pain on palpation of these teeth. There is no gingival swelling or tenderness. No evidence of a periapical abscess. Uvula is midline. There is no posterior oropharynx swelling or redness. There is no evidence of Ludwigs angina. No tongue deviation. Mild swelling noted to the right upper cheek. There is no erythema or warmth. No fluctuance. Neck: Supple without lymphadenopathy nontender. Trachea midline. No erythema, warmth or swelling. Able to range neck actively without pain. Cardiovascular: Regular rate and rhythm, no murmurs. No rubs or gallops. Normal S1 and S2 Respiratory: Clear to auscultation bilaterally. No wheezes, rales, rhonchi Abdominal: Soft and nontender. Normal bowel sounds. No guarding or rebound. Nonsurgical abdomen Extremities: No tenderness. No bruising. Normal range of motion. Normal sensation. Skin: No rash or redness. Neurological: Cranial nerves II through XII are grossly intact. Normal strength and sensation. Normal cerebellar function The rest of the physical exam is unremarkable Const Vital Signs: 01/20/25 08:51 01/20/25 09:53 Temperature 98.1 F 98.3 F Temperature Source Oral Pulse Rate 69 89 Resp (more content not included)... Normal [facility] Fibrin D-dimer FEU (PPP) [Ma ss/Vol]Ordered By: Demian Ku on 01-20-2025 Interpretation and review of laboratory results Normal [facility] 500 ng/mL FEU is the D Dimer cutoff to exclude DVT (deep vein thrombosis) and PE (pulmonary embolism) in patients with a low pre test probability. Supplemental Comment: In patients over 50 years with a low pre test probability for DVT and/or PE, an age adjusted D dimer cutoff can be calculated as [age x 10] ng/mL FEU. For example, a patient of 88 years would have an age adjusted D dimer cutoff of 880 ng/mL FEU. For patients with a suspected DVT, a D dimer level below 500 ng/mL FEU has a negative predictive value of >98.9%, a sensitivity of >96.9% and a specificity of >35.7%. For patients with a suspected PE, a D dimer level below 500 ng/mL FEU has a negative predictive value of >98.5%, and a sensitivity of >96.5% and a specificity of >38.8%. Reference: Roberto Carlos M, et al. JOHANNA 2014 311:1117 and Van Lisa N, et al. Mihai Int Med 2016 165:253. [facility] Magnesium SerPl-mCncon 01-20 Magnesium [Mass/Vol] 1.2 mg/dL Low 1.7-2.3 [facility] Comment on above: Order Comment: Nazanin pendleton Type: BLOOD SPECIMENOrdering Facility: [facility] Address: [address] [place] [address] Performed By: #### 2 4321-2, 25144-8 ####[facility] [id number] [place] [address] [place] PROTEIN C FUNCTon 01-20-2025 Protein C actual/normal Coag (PPP) [Relative time] 84 % Normal 76-147 [facility] Comment on above: Order Comment: Nazanin pendleton Type: BLOOD SPECIMENOrdering Facility: [facility] Address: [address] [place] [address] Performed By: #### P RCFUN, PRSCLT ####[facility] LABCLIA [id number] [place] [address] [place] PROTEIN S CLOTTABLEon 2024 Coagulation factor X activated act Coag Qn (PPP) <0.10 Normal <0.10 [facility] Comment on above: Order Comment: Nazanin pendleton Type: BLOOD SPECIMENOrdering Facility: [facility] Address: [address] [place] [address] Result Comment: This test was developed, and its performance characteristics determined by the [facility] Department of Pathology and Laboratory Medicine. It has not been cleared or approved by the FDA. The [facility] Department of Pathology and Laboratory Medicine is regulated under CLIA as qualified to perform high-complexity testing. This test is used for clinical purposes. It should not be regarded as investigational or for research. Performed By: #### P RCSHI PRSCLT ####[facility] [id number] [place] [address] [place] Protein S actual/normal Coag (PPP) [Relative time] 68 % Normal 59-152 [facility] Comment on above: Order Comment: Speci men Type: BLOOD SPECIMENOrdering Facility: [facility] Address: [address] [place] [address] Performed By: #### P RCFUViola PRSCLT ####[facility] [id number] [place] [address] [place] PROTEIN S IMMUNOon Protein S Free Ag actual/normal IA (PPP) [Relative mass conc] 57 % Normal 55-148 [facility] Comment on above: Order Comment: Speci men Type: BLOOD SPECIMENOrdering Facility: [facility] Address: [address] [place] [address] Performed By: #### P ROTSI ####[facility] [id number] [place] [address] [place] Paroxysmal nocturnal panel ( Bld)on 01-20-2025 MD08-IMKLJ- cells/100 CD15 cells (Bld) <0.01 Normal <0.01 [facility] Comment on above: Order Comment: Speci men Type: BLOOD SPECIMENOrdering Facility: [facility] Address: [address] [place] [address] Result Comment: LIDIA GONZALES Performed By: #### 5 5164-8 ####[facility] LABCLIA [id number] [address] [place] Erythrocytes.CD59 complete loss/100 235a cells (Bld) <0.01 Normal <0.01 [facility] Comment on above: Order Comment: Nazanin pendleton Type: BLOOD SPECIMENOrdering Facility: [facility] Address: [address] [place] [address] Result Comment: LIDIA GONZALES Performed By: #### 5 5164-8 ####[facility] [id number] [address] [place] PHN GPI-Linked WBC and RBC Ag Demar (Bld) [Interp] No PNH clone is detected in either Granulocytes or RBCs. Clinical correlation is recommended. Normal [facility] Comment on above: Order Comment: Nazanin pendleton Type: BLOOD SPECIMENOrdering Facility: [facility] Address: [address] [place] [address] Performed By: #### 5 5164-8 ####[facility] [id number] [address] [place] PNHPNL REVIEWED BY Reviewed by Kyleigh Tinoco M.D. Normal [facility] Comment on above: Order Comment: Nazanin pendleton Type: BLOOD SPECIMENOrdering Facility: [facility] Address: [address] [place] [address] Performed By: #### 5 5164-8 ####[facility] [id number] [address] [place] CNPJacinda 01-05-2025 CNPN Telephone (RABIA) NIURKA ZHU ([id number]) 1980 F Date Time Provider Department 01/05/25 AB LOMELI During your visit today, we recorded the following information about you: Joyce LesterVenecia 01/05/2025 8:52 AM Signed Please review and advise CONSULT TO HEMATOLOGY/ONCOLOGY Status: Needs Scheduling Requested appt date: Authorizing: Vikki Elmore MD in [facility] Referral: [id number] (Authorized) Expires: 12/30/2025 Priority: Routine Diagnosis: Protein [...] specified site [R10.9] 01/01/2014 Myalgia and myositis [CEH0708] 01/01/2014 Chest pain [R07.9] 01/11/2014 10/23/2016 ASA [...] Encounter Status:Closed by JOEL WALSH on 01/07/[address] [facility] CNPN Telephone (GASTA5) NIURKA ZHU ([id number]) 1980 F Date Time Provider Department 12/31/24 CGRT DIETITIAN GASTA5 During your visit today, we recorded the following information about you: Savanah Toro RD 12/31/2024 9:[address] Elmore (post clinic visit) , pt will have labs done, If Magnesium continues to be low will need to set up IV Magnesium at [place] [facility]. Savanah Toro RD, LD, CNSC, CCTD Center [...] mL injections for 2 months. Administer at [place] [facility] - Needle, Disp, 25 G 25 [...] specified site [R10.9] 01/01/2014 Myalgia and myositis [MCH9306] 01/01/2014 Chest pain [R07.9] 01/11/2014 10/23/2016 ASA [...] Status:Closed by SAVANAH TORO on 12/31/24 Normal [facility] 25([facility] 25-hydroxyvitamin D3 [Mass/Vol] 36.0 ng/mL Normal 31.0-80.0 [facility] Comment on above: Order Comment: Speci men Type: BLOOD SPECIMENOrdering Facility: [facility] Address: [address] [place] [address] Result Comment: Clas sification of 25 [place] Vitamin D status: Deficiency/Insufficiency: < or = 30 ng/ml. Sufficiency/Optimal Levels: 31-80 ng/mL Toxicity: > 100 ng/mL. Test performed by chemiluminescent immunoassay. Performed By: #### 1 989-3 ####[facility] LAB[facility] [id number] [place] [address] [place] CBC panel Auto (Bld)on 12-30 Erythrocyte distribution width (RBC) [Ratio] 13.4 % Normal 11.5-15.0 [facility] Comment on above: Order Comment: Speci men Type: BLOOD SPECIMENOrdering Facility: [facility] Address: [address] [place] [address] Performed By: #### 5 8410-2 ####[facility] LABIA [id number] [place] [address] [place] Hematocrit (Bld) [Volume fraction] 40.2 % Normal 36.0-46.0 [facility] Comment on above: Order Comment: Speci men Type: BLOOD SPECIMENOrdering Facility: [facility] Address: [address] [place] [address] Performed By: #### 5 8410-2 ####[facility] LABIA [id number] [place] [address] [place] Hemoglobin (Bld) [Mass/Vol] 13.2 g/dL Normal 11.5-15.5 [facility] Comment on above: Order Comment: Speci men Type: BLOOD SPECIMENOrdering Facility: [facility] Address: [address] [place] [address] Performed By: #### 5 8410-2 ####[facility] LABIA [id number] [place] [address] [place] MCH (RBC) [Entitic mass] 30.1 pg Normal 26.0-34.0 [facility] Comment on above: Order Comment: Speci men Type: BLOOD SPECIMENOrdering Facility: [facility] Address: [address] [place] [address] Performed By: #### 5 8410-2 ####[facility] LABIA [id number] [place] [address] [place] MCHC (RBC) [Mass/Vol] 32.8 g/dL Normal 30.5-36.0 [facility] Comment on above: Order Comment: Speci men Type: BLOOD SPECIMENOrdering Facility: [facility] Address: [address] [place] [address] Performed By: #### 5 8410-2 ####[facility] LABIA [id number] [address] [id number] [address] [place] MCV (RBC) [Entitic vol] 91.6 fL Normal 80.0-100.0 [facility] Comment on above: Order Comment: Speci men Type: BLOOD SPECIMENOrdering Facility: [facility] Address: [address] [place] [address] Performed By: #### 5 8410-2 ####[facility] LABCLIA [id number] [place] [address] [place] Nucleated RBC (Bld) [#/Vol] 10*3/uL Normal <0.01 [facility] Comment on above: Order Comment: Speci men Type: BLOOD SPECIMENOrdering Facility: [facility] Address: [address] [place] [address] Performed By: #### 5 8410-2 ####[facility] [id number] [place] [address] [place] Platelet mean volume (Bld) [Entitic vol] 10.0 fL Normal 9.0-12.7 [facility] Comment on above: Order Comment: Speci men Type: BLOOD SPECIMENOrdering Facility: [facility] Address: [address] [place] [address] Performed By: #### 5 8410-2 ####[facility] LABIA [id number] [place] [address] [place] Platelets (Bld) [#/Vol] 231 10*3/uL Normal 150-400 [facility] Comment on above: Order Comment: Speci men Type: BLOOD SPECIMENOrdering Facility: [facility] Address: [address] [place] [address] Performed By: #### 5 8410-2 ####[facility] LABCLIA [id number] [place] [address] [place] RBC (Bld) [#/Vol] 4.39 10*6/uL Normal 3.90-5.20 [facility] Comment on above: Order Comment: Speci men Type: BLOOD SPECIMENOrdering Facility: [facility] Address: [address] [place] [address] Performed By: #### 5 8410-2 ####[facility] [id number] [place] [address] [place] WBC (Bld) [#/Vol] 6.86 10*3/uL Normal 3.70-11.00 [facility] Comment on above: Order Comment: Speci men Type: BLOOD SPECIMENOrdering Facility: [facility] Address: [address] [place] [address] Performed By: #### 5 8410-2 ####[facility] LABIA [id number] [place] [address] [place] CNCOon 12-30-2024 CNCO Letter Text Normal [facility] CNOVon 12-30-2024 CNOV Office Visit (GGENMN) NIURKA ZHU ([id number]) 1980 F Date Time Provider Department 12/30/24 [...] levels. - Consider IV potassium infusions at [facility] if levels remain low. 3. Hypomagnesemia [...] will arrange for IV magnesium infusions at [facility] in [place]. 4. Vitamin B 12 deficiency (E53.8) Chronic deficiency due to short bowel syndrome. - Continue monthly B12 injections. - Renewed prescription for B12 injections and needles, sent to [facility] in [place]. 5. Vitamin D deficiency (E55.9) Chronic deficiency [...] 5-6 years. - Referred to hematology at [facility] in [place] for evaluation and management of hypercoagulable state. FOLLOW-UP: 2 months or sooner if needed Vikki Elmore MD 12/30/2024 Staff Special Education Superintendent, [facility] [place] == PRIMARY PROBLEM: short bowel syndrome INTERVAL [...] subsequent stoo (more content not included)... Normal [facility] COPPER BLOODon 12-30-2024 Copper [Mass/Vol] 63 ug/dL Low 80-155 [facility] Comment on above: Order Comment: Speci men Type: BLOOD SPECIMEN [facility]ing Facility: [facility] Address: [address] [place] [address] Result Comment: This test was developed, and its performance characteristics determined by the [facility] Department of Pathology and Laboratory Medicine. It has not been cleared or approved by the FDA. The [facility] Department of Pathology and Laboratory Medicine is regulated under CLIA as qualified to perform high-complexity testing. This test is used for clinical purposes. It should not be regarded as investigational or for research. Performed By: #### 1 9123-9, 88341-4 #### [facility] CLIA [id number] [address] [place] [address] [place] Comprehensive metabolic 2000 panelon 12-30-2024 Albumin [Mass/Vol] 4.1 g/dL Normal 3.9-4.9 [facility] Comment on above: Order Comment: Speci men Type: BLOOD SPECIMEN [facility]ing Facility: [facility] Address: [address] [place] [address] Performed By: #### 1 91239, 97961-9 #### [facility] CLIA [id number] [address] [place] [address] [place] ALP [Catalytic activity/Vol] 63 U/L Normal 34-123 [facility] Comment on above: Order Comment: Speci men Type: BLOOD SPECIMEN [facility]: [facility] Address: [address] [place] [address] Performed By: #### 1 91239, 65875-0 #### [facility] CLIA [id number] [address] [place] [address] [place] ALT [Catalytic activity/Vol] 23 U/L Normal 7-38 [facility] Comment on above: Order Comment: Speci men Type: BLOOD SPECIMEN [facility]: [facility] Address: [address] [place] [address] Performed By: #### 1 9123-9, 67886-9 #### [facility] CLIA [id number] [address] [place] [address] [place] Anion gap [Moles/Vol] 12 mmol/L Normal 8-15 [facility] Comment on above: Order Comment: Speci men Type: BLOOD SPECIMEN [facility]: [facility] Address: [address] [place] [address] Performed By: #### 1 9123-9, 39258-8 #### [facility] CLIA [id number] [address] [place] [address] [place] AST [Catalytic activity/Vol] 30 U/L Normal 13-35 [facility] Comment on above: Order Comment: Speci men Type: BLOOD SPECIMEN [facility]: [facility] Address: [address] [place] [address] Performed By: #### 1 9123-9, 61492-4 #### [facility] CLIA [id number] [address] [place] [address] [place] Bilirubin [Mass/Vol] 0.5 mg/dL Normal 0.2-1.3 [facility] Comment on above: Order Comment: Speci men Type: BLOOD SPECIMEN [facility]: [facility] Address: [address] [place] [address] Performed By: #### 1 9123-9, 41929-7 #### [facility] CLIA [id number] [address] [place] [address] [place] Calcium [Mass/Vol] 9.8 mg/dL Normal 8.5-10.2 [facility] Comment on above: Order Comment: Speci men Type: BLOOD SPECIMEN [facility]: [facility] Address: [address] [place] [address] Performed By: #### 1 9123-9, 09883-1 #### [facility] CLIA [id number] [address] [place] [address] [place] Chloride [Moles/Vol] 103 mmol/L Normal 98-107 [facility] Comment on above: Order Comment: Speci men Type: BLOOD SPECIMEN [facility]ing Facility: [facility] Address: [address] [place] [address] Performed By: #### 1 9123-9, 95391-4 #### [facility] CLIA [id number] [address] [place] [address] [place] CO2 [Moles/Vol] 26 mmol/L Normal 22-30 [facility] Comment on above: Order Comment: Speci men Type: BLOOD SPECIMEN [facility]: [facility] Address: [address] [place] [address] Performed By: #### 1 9123-9, 65067-1 #### [facility] CLIA [id number] [address] [place] [address] [place] Creatinine [Mass/Vol] 0.64 mg/dL Normal 0.58-0.96 [facility] Comment on above: Order Comment: Speci men Type: BLOOD SPECIMEN [facility]: [facility] Address: [address] [place] [address] Performed By: #### 1 9123-9, 29810-9 #### [facility] CLIA [id number] [address] [place] [address] [place] eGFRcr SerPlBld CKD-EPI 2020 113 mL/min/1.73m??? Normal >=60 [facility] Comment on above: Order Comment: Speci men Type: BLOOD SPECIMEN [facility]: [facility] Address: [address] [place], [place] [address] Result Comment: Eve mated Glomerular Filtration Rate [...] actual GFR. Performed By: #### 1 9123-9, 31322-3 #### [facility] CLIA [id number] [address] [place] [address] [place] Glucose [Mass/Vol] 73 mg/dL Low 74-99 [facility] Comment on above: Order Comment: Speci men Type: BLOOD SPECIMEN [facility]: [facility] Address: [address] [place] [address] Result Comment: The [place] [employer] (ADA) provides guidance for cutoff [...] Standards of Medical Care in Diabetes 2016, [place] [employer]. Diabetes Care. 2016.39(Suppl 1). Performed By: #### 1 9123-9, 82062-9 #### [facility] [id number] [address] [place] [address] [place] Potassium [Moles/Vol] 4.2 mmol/L Normal 3.7-5.1 [facility] Comment on above: Order Comment: Grahami men Type: BLOOD SPECIMEN Ordering Facility: [facility] Address: [address] [place] [address] Performed By: #### 1 9123-9, 73408-5 #### [facility] [id number] [address] [place] [address] [place] Protein [Mass/Vol] 6.8 g/dL Normal 6.3-8.0 [facility] Comment on above: Order Comment: Grahami men Type: BLOOD SPECIMEN [facility]ing Facility: [facility] Address: [address] [place], [place] [address] Performed By: #### 1 9123-9, 71676-8 #### [facility] CLIA [id number] [address] [place] [address] [place] Sodium [Moles/Vol] 141 mmol/L Normal 136-144 [facility] Comment on above: Order Comment: Speci men Type: BLOOD SPECIMEN [facility]ing [facility]: [facility] Address: [address] [place] [address] Performed By: #### 1 9123-9, 05930-5 #### [facility] CLIA [id number] [address] [place] [address] [place] Urea nitrogen [Mass/Vol] 7 mg/dL Normal 7-21 [facility] Comment on above: Order Comment: Speci men Type: BLOOD SPECIMEN [facility]ing Facility: [facility] Address: [address] [place] [address] Performed By: #### 1 9123-9, 75746-4 #### [facility] CLIA [id number] [address] [place] [address] [place] Magnesium SerPl-mCncon 12-30 Magnesium [Mass/Vol] 1.4 mg/dL Low 1.7-2.3 [facility] Comment on above: Order Comment: Speci men Type: BLOOD SPECIMEN [facility]ing Facility: [facility] Address: [address] [place] [address] Performed By: #### 1 9123-9, 09234-2 #### [facility] CLIA [id number] [address] [place] [address] [place] Methylmalonate SerPl-sCncon 12-30-2024 Methylmalonate [Moles/Vol] 2.90 umol/L High <=0.40 [facility] Comment on above: Order Comment: Speci men Type: BLOOD SPECIMENOrdering Facility: [facility] Address: [address] [place] [address] Result Comment: This test was developed, and its performance characteristics determined by the [facility] Department of Pathology and Laboratory Medicine. It has not been cleared or approved by the FDA. The [facility] Department of Pathology and Laboratory Medicine is regulated under CLIA as qualified to perform high-complexity testing. This test is used for clinical purposes. It should not be regarded as investigational or for research. Performed By: #### 1 3964-2 ####[facility] LAB[facility]IA [id number] [place] [address] [place] Phosphate SerPl-mCncon 12-30 Phosphate [Mass/Vol] 3.3 mg/dL Normal 2.7-4.8 [facility] Comment on above: Order Comment: Nazanin pendleton Type: BLOOD SPECIMEN Ordering Facility: [facility] Address: [address] [place] [address] Performed By: #### 1 9123-9, 66652-2 #### [facility] CLIA [id number] [address] [place] [address] [place] Vit A SerPl-mCncon 5 Retinol [Mass/Vol] 0.15 mg/L Low 0.30-1.20 [facility] Comment on above: Order Comment: Nazanin pendleton Type: BLOOD SPECIMENOrdering Facility: [facility] Address: [address] [place] [address] Result Comment: This test was developed, and its performance characteristics determined by the [facility] Department of Pathology and Laboratory Medicine. It has not been cleared or approved by the FDA. The [facility] Department of Pathology and Laboratory Medicine is regulated under CLIA as qualified to perform high-complexity testing. This test is used for clinical purposes. It should not be regarded as investigational or for research. Performed By: #### 2 923-1 ####[facility] LAB[facility] [id number] [place] [address] [place] Vit B12 SerPl-mCncon 025 Cobalamin (Vitamin B12) [Mass/Vol] 176 pg/mL Low 232-1245 [facility] Comment on above: Order Comment: Nazanin pendleton Type: BLOOD SPECIMEN Ordering Facility: [facility] Address: [address] [place] [address] Performed By: #### 1 9123-9, 51280-1 #### [facility] CLIA [id number] [address] [place] [address] [place] Zinc SerPl-mCncon 12-30-2024 Zinc [Mass/Vol] 71 ug/dL Normal 60-120 [facility] Comment on above: Order Comment: Nazanin pendleton Type: BLOOD SPECIMEN [facility]ing [facility]: [facility] Address: [address] [place] [address] Result Comment: This test was developed, and its performance characteristics determined by the [facility] Department of Pathology and Laboratory Medicine. It has not been cleared or approved by the FDA. The [facility] Department of Pathology and Laboratory Medicine is regulated under CLIA as qualified to perform high-complexity testing. This test is used for clinical purposes. It should not be regarded as investigational or for research. Performed By: #### 1 9123-9, 34704-8 #### [facility] CLIA [id number] [address] [place] [address] [place] Emergency Department Summary on 11-13-2024 Emergency Department Summary [facility] Medical Records Department [facility] [place] [address] Emergency Department Summary 11/13/24 MR#: [id number] Acct: [id number] Name: NIURKA ZHU Rep #: [id number] : 1980 44 From: Ganesh Ma DO [...] denies any difficulty breathing or difficulty swallowing. [facility] Medical History Anxiety Smoker Kidney stone Short gut syndrome Protein S deficiency Protein C deficiency Blood clotting disorder Home Medications ???Medication ???Instructions ???Recorded ???Last Taken ???Type ergocalciferol (vitamin D2) 1,250 50,000 unit PO MOTUWETH supplemen t 10/09/14 08/17/21 08:00 History mcg (50,000 unit) capsule calcium carbonate (Calcium 500) 500 mg PO BID #60 tabs 08/22/21 Un known Rx yjvdxxet-tia-wxez 2.25 mg-folic 1 tab PO TID 10/31/21 Unknown Hist ory acid 100 uat-Sj47-V4Bt72-V2-bwuel acid tablet magnesium L-lactate 84 mg 252 [...] social history: - Ganesh Patient works with [employer] ROS ED Constitutional Constitutional ED: Reports chills; Denies [...] Neck is (more content not included)... [facility] Office Visit (UCWSTR) NIURKA ZHU ([id number]) 1980 F Date Time Provider Department 11/09/24 1:00 PM MAYANK ARIZMENDI [facility] During your visit today, we recorded the following information about you: Temperature Pulse Respiration Blood pressure 99.1 degrees 90/minute 20/minute 120/76 Weight 69.8 kg Mayank Arizmendi APRN.CNP 11/09/2024 12:46 PM Signed [facility] [address] [place], [place] [address] Emergency Department Diagnosis: Assessment TOOTHACHE: Your exam [...] Mayank Arizmendi APRN.CNP 11/09/2024 12:59 PM Signed [facility] NOTE Subjective Niurka Zhu is a 44 year old year old who [facility] with complaint of upper [...] mL injections for 2 months. Administer at [facility] Vitamin E, dl, acetate, (VITAMIN E) [...] ear normal. Nose: Nose normal. Mouth/Throat: Lips: Secor. Mouth: Mucous membranes are moist. Dentition: Abnormal dentition. Dental tenderness, gingival swelling and dental caries present. No dental abscesses. Tongue: No lesions. Palate: No mass. Ph (more content not included)... Normal [facility] CNOVon 10-20-2024 CN[facility] Office Visit (UCWSTR) NIURKA ZHU ([id number]) 1980 F Date Time Provider Department 10/20/24 7:30 PM ISAIAS ROE [facility] During your visit today, we recorded the [...] BID for 1-2 weeks. - Referred to [facility] for further evaluation due to recurrent nature of the rash. - Prescription [facility]. Recording using Ce[employer] software for draft documentation of the visit was discussed with the patient/authorized customer service representative teller; all questions welcomed and answered. Patient/authorized customer service representative teller agreed to proceed History and Record Review [...] week every 1-2 months for SIBO - hugreu-ixyfqasz-ibnt ase (ZENPEP) 25,000-79,000- 105,000 unit delayed release capsule Take 2 with meals and 1 with snacks - cyanocobalamin (VITAMIN B-12) 1,000 mcg/mL Inject 1 mL intramuscularly once every month. Then resume monthly 1 mL injections for 2 months. Administer at [facility] - Vitamin E, dl, acetate, (VITAMIN E) 400 unit capsule Take 1 capsule by mouth once daily. Meds Comments as of 11/21/2017: Probiotic daily, Vitamin E 400 unit daily Problem List As Of Date 10/20/2024 Noted Resolved Abdominal pain, other specified site [R10.9] 01/01/2014 Myalgia and myositis [LZV0624] 01/01/2014 Chest pain [R07.9] 01/11/2014 10/23/2016 ASA CLASS II [1001] 07/20/2014 Short bowel syndrome [K90.829] 01/11/2015 Intestinal malabsorption [K90.9] 01/11/2015 Hypomagnesemia [E83.42] 03/02/2016 SBO (small bowel obstruction) (HCC) [K56.609] 05/25/2016 10/23/2016 Surgery, elective [Z41.9] 08/29/2016 Moderate protein malnutrition (HCC) [E44.0] 09/01/2016 Severe (more content not included)... [facility] Telephone (GASTA5) NIURKA ZHU ([id number]) 1980 F Date Time Provider Department 10/13/24 [facility] DIETITIAN GASTA5 During your visit today, we recorded the following information about you: Nicole Ling 10/13/2024 2:14 PM Signed Patient: NIURKA ZHU ([id number]) Latest Ref Rng 10/09/2024 Glucose 74 - [...] (L) In process: Vit E, A, Cu Gus Frost, LIZZY 10/13/2024 4:25 PM Signed Results so far [...] remaining results come in. Holly Burroughs, RD, [facility] Nicole Ling 10/15/2024 2:14 PM Signed Patient: NIURKA ZHU ([id number]) Latest Ref Rng 10/09/2024 Vitamin E-alpha 6.0 [...] as well, although remains low (will send iLumen message to patient) Mag++ already addressed by Dr. Elmore (note PA in process for magnesium). Plan: - Continue DEKAs essential daily - Continue Vitamin D2 50,000 units 3x per week - Continue Copper Gluconate 2 mg 1 capsule daily Next clinic visit is on 12/2024--will need to determine when to repeat blood work Savanah Toro RD, LD, CNSC, CCTD [facility] ; Allergies As of Date: 10/13/2024 Noted Allergy Reaction ADHESIVE 09/07/2016 2 - Rash 9 - Itching AMOXICILLIN 09/26/2011 4 - Hives PENICILLINS 09/26/2011 4 - Hives Date Reviewed: 08/14/2024 Reviewed by: Kota Acuña APRN.LEGAL FILE CLERK - Fully Assessed Reason for Visit: Results [...] week every 1-2 months for SIBO - lwfzrk-phkrrgtt-fgih ase (ZENPEP) 25,000-79,000- 105,000 unit delayed release capsule Take 2 with meals and 1 with snacks - cyanocobalamin (VITAMIN B-12) 1,000 mcg/mL Inject 1 mL intramuscularly once every month. Then resume monthly 1 mL injections for 2 months. Administer at [facility] - Vitamin E, dl, acetate, (VITAMIN E) 400 unit capsule Take 1 capsule by mouth once daily. Meds Comments as of 11/21/2017: Probiotic daily, Vitamin E 400 unit daily Problem List As Of Date 10/13/2024 Noted Resolved Abdominal pain, other specified site [R10.9] 01/01/2014 Myalgia and myositis [RXI6030] 01/01/2014 Chest pain [R07.9] 01/11/2014 10/23/2016 ASA [...] Status:Closed by SAVANAH TORO on 10/22/24 Normal [facility] 25(OH)D3 Darlin 2024 25-hydroxyvitamin D3 [Mass/Vol] 46.6 ng/mL Normal 31.0-80.0 [facility] Comment on above: Order Comment: Speci men Type: BLOOD SPECIMEN Ordering Facility: [facility] Address: [address], [place] [address] Result Comment: Clas sification of 25 [place] Vitamin D status: Deficiency/Insufficiency: < or = 30 ng/ml. Sufficiency/Optimal Levels: 31-80 ng/mL Toxicity: > 100 ng/mL. Test performed by chemiluminescent immunoassay. Performed By: #### 1 9123-9, 80713-9 #### [facility] CLIA [id number] [address] [place] [address] [place] A-Tocopherol Vit E SerPl-mCn con 10-09-2024 Alpha tocopherol [Mass/Vol] 8.1 mg/L Normal 6.0-23.0 [facility] Comment on above: Order Comment: Speci men Type: BLOOD SPECIMENOrdering Facility: [facility] Address: [address] [place] [address] Performed By: #### 1 823-4, 2923-1 ####[facility] LAB[facility] [id number] [place] [address] [place] Alpha tocopherol [Mass/Vol]o n 10-09-2024 Beta+gamma tocopherol [Mass/Vol] 0.8 mg/L Normal 0.3-3.2 [facility] Comment on above: Order Comment: Speci men Type: BLOOD SPECIMENOrdering Facility: [facility] Address: [address] [place] [address] Result Comment: This test was developed, and its performance characteristics determined by the [facility] Department of Pathology and Laboratory Medicine. It has not been cleared or approved by the FDA. The [facility] Department of Pathology and Laboratory Medicine is regulated under CLIA as qualified to perform high-complexity testing. This test is used for clinical purposes. It should not be regarded as investigational or for research. Performed By: #### 1 823-4, 2923-1 ####[facility] LABCLIA [id number] [place] [address] [place] Basic metabolic 2000 panelon 10-09-2024 Anion gap [Moles/Vol] 12 mmol/L Normal 8-15 [facility] Comment on above: Order Comment: Speci men Type: BLOOD SPECIMENOrdering Facility: [facility] Address: [address] [place] [address] Performed By: #### 1 9123-9, ####[facility] DEEPIKA KORTNEYMARINA [id number] [place] [address] [place] Calcium [Mass/Vol] 9.5 mg/dL Normal 8.5-10.2 [facility] Comment on above: Order Comment: Speci men Type: BLOOD SPECIMENOrdering Facility: [facility] Address: [address] [place] [address] Performed By: #### 1 9123-9, 78964-8 ####[facility] DEEPIKA KORTNEYWATERLOOANDREE [id number] [place] [address] [place] Chloride [Moles/Vol] 103 mmol/L Normal 98-107 [facility] Comment on above: Order Comment: Speci men Type: BLOOD SPECIMENOrdering Facility: [facility] Address: [address] [place], [place] [address] Performed By: #### 1 9123-9, 69685-1 ####[facility] KORTNEYWATERLOODANYELLEA [id number] [place] [address] [place] CO2 [Moles/Vol] 23 mmol/L Normal 22-30 [facility] Comment on above: Order Comment: Speci men Type: BLOOD SPECIMENOrdering Facility: [facility] Address: [address] [place] [address] Performed By: #### 1 9123-9, 08925-3 ####[facility]ITAL[facility]CDIPESHA [id number] [place] [address] [place] Creatinine [Mass/Vol] 0.57 mg/dL Low 0.58-0.96 [facility] Comment on above: Order Comment: Speci men Type: BLOOD SPECIMENOrdering Facility: [facility] Address: [address] [place] [address] Performed By: #### 1 9123-9, 85950-3 ####[facility] [id number] [place] [address] [place] Creatinine and Glomerular filtration rate.predicted panel (S/P/Bld) 116 mL/min/1.73m??? Normal >=60 [facility] Comment on above: Order Comment: Nazanin pendleton Type: BLOOD SPECIMENOrdering Facility: [facility] Address: [address] [place] [address] Result Comment: Eve mated Glomerular Filtration Rate [...] actual GFR. Performed By: #### 1 9123-9, 20447-2 ####[facility] [id number] [place] [address] [place] Glucose [Mass/Vol] 92 mg/dL Normal 74-99 [facility] Comment on above: Order Comment: Nazanin pendleton Type: BLOOD SPECIMENOrdering Facility: [facility] Address: [address] [place] [address] Result Comment: The [place] Diabetes Association (ADA) provides guidance for cutoff [...] Standards of Medical Care in Diabetes 2016, [place] [employer]. Diabetes Care. 2016.39(Suppl 1). Performed By: #### 1 9123-9, 32819-9 ####[facility]ITAL[facility]CLIA [id number] [place] [address] [place] Potassium [Moles/Vol] 3.8 mmol/L Normal 3.7-5.1 [facility] Comment on above: Order Comment: Speci men Type: BLOOD SPECIMENOrdering Facility: [facility] Address: [address] [place] [address] Performed By: #### 1 9123-9, 75530-2 ####[facility] [id number] [place] [address] [place] Sodium [Moles/Vol] 138 mmol/L Normal 136-144 [facility] Comment on above: Order Comment: Speci men Type: BLOOD SPECIMENOrdering Facility: [facility] Address: [address] [place] [address] Performed By: #### 1 9123-9, 32555-3 ####[facility] [id number] [place] [address] [place] Urea nitrogen [Mass/Vol] 9 mg/dL Normal 7-21 [facility] Comment on above: Order Comment: Speci men Type: BLOOD SPECIMENOrdering Facility: [facility] Address: [address] [place] [address] Performed By: #### 1 9123-9, 21686-2 ####[facility]IT[facility] [id number] [place] [address] [place] COPPER BLOODon 10-09-2024 Copper [Mass/Vol] 75 ug/dL Low 80-155 [facility] Comment on above: Order Comment: Speci men Type: BLOOD SPECIMEN Ordering Facility: [facility] Address: [address] [place] [address] Result Comment: This test was developed, and its performance characteristics determined by the [facility] Department of Pathology and Laboratory Medicine. It has not been cleared or approved by the FDA. The [facility] Department of Pathology and Laboratory Medicine is regulated under CLIA as qualified to perform high-complexity testing. This test is used for clinical purposes. It should not be regarded as investigational or for research. Performed By: #### 1 9123-9, 64518-4 #### [facility] CLIA [id number] [address] [place] [address] [place] [facility] Magnesium SerPl-mCncon 10-09 Magnesium [Mass/Vol] 1.2 mg/dL Low 1.7-2.3 [facility] Comment on above: Order Comment: Nazanin pendleton Type: BLOOD SPECIMENOrdering Facility: [facility] Address: [address] [place] [address] Performed By: #### 1 9123-9, 03170-8 ####[facility] [id number] [place] [address] [place] Vit A SerPl-mCncon Retinol [Mass/Vol] 0.24 mg/L Low 0.30-1.20 [facility] Comment on above: Order Comment: Nazanin pendleton Type: BLOOD SPECIMENOrdering Facility: [facility] Address: [address] [place] [address] Result Comment: This test was developed, and its performance characteristics determined by the [facility] Department of Pathology and Laboratory Medicine. It has not been cleared or approved by the FDA. The [facility] Department of Pathology and Laboratory Medicine is regulated under CLIA as qualified to perform high-complexity testing. This test is used for clinical purposes. It should not be regarded as investigational or for research. Performed By: #### 1 823-4, 2923-1 ####[facility] LABCLIA [id number] [address] OF [place] CNOVon 08-14-2024 CNOV Office Visit (UCWSTR) NIURKA ZHU ([id number]) 1980 F Date Time Provider Department 08/14/24 11:45 AM KOTA ACUÑA UCWSTR During your visit today, we recorded the following information about you: Temperature Pulse Respiration Blood pressure 97.8 degrees 68/minute 18/minute 156/91 Weight Last Period 70 kg 07/30/24 Kota Acuña, LOGISTICS PROJECT MANAGER.LEGAL FILE CLERK 08/14/2024 12:19 PM Signed Subjective HPI Nontoxic-appearing [...] pain 01/11/2014 Depression DVT (deep venous thrombosis) ([facility]) July 2013 Hypertension, essential 01/13/2018 Low blood magnesium 03/02/2016 Protein C deficiency ([facility]) Protein S deficiency ([facility]) S/P cholecystectomy SBO (small bowel obstruction) ([facility]) 05/25/2016 Short bowel syndrome PAST SURGICAL HISTORY [...] Take 1 capsule by mouth once daily. epvxna-uspqvpig-eezf ase (ZENPEP) 25,000-79,000- 105,000 unit delayed release capsule Take 2 with meals and 1 with snacks cyanocobalamin (VITAMIN B-12) 1,000 mcg/mL Inject 1 mL intramuscularly once every month. Then resume monthly 1 mL injections for 2 months. Administer at [facility] Vitamin E, dl, acetate, (VITAMIN E) [...] as ordered. magnesium oxide-magnesium amino acid chelate (WR-MWZS-QMTGZKP) 133 mg tablet Take 3 tablets by [...] ttl pk- (more content not included)... Normal [facility] 07-29-2024 [facility] Telephone (GGENMN) NIURKA ZHU ([id number]) 1980 F Date Time Provider Department 07/29/24 CGRT DIETITIAN GGHUGOMN During your visit today, we recorded the following information about you: Kedar Roberts 07/29/2024 3:01 PM Signed Vm-Returning a call to [facility] for lab results. [phone] 07/30/2024 2:22 PM Signed Attempted to return [...] Orders not written yet. Marci Vanegas RD, RD 08/04/2024 3:01 PM Signed Return call attempted [...] Refill generated and ordering info sent via Linktone - Start Potassium 20 mEq daily. Refill generated. - Start Booster B12 1000 mcg IM injections once weekly x4 weeks, then resume once monthly injections. Refill generated and Prior auth needed. - Recheck BMP and Mg 1-2 weeks after starting electrolytes. Will add f/u vit E due 10/04 (Cu, vit D and A due at same time) Ordered in [facility]. Mara Prather RD, GAL, [facility] ([facility]) Mara Prather RD 08/07/2024 10:48 AM Signed Spoke with patient and relayed Dr. Elmore recommendation for flagyl prn every 1-[address]. [address] Elmore is receptive to completing disability paperwork but requires an office visit to do so. Patient was not able to write down office number so will send via Linktone. Mara Prather RD, GAL, [facility] (RT) Allergies [...] ordered. - magnesium oxide-magnesium amino acid chelate (QP-EGNA-BACKOSQ) 133 mg tablet Take 3 tablets by mouth three times a day. - potassium chloride ER (KLOR-CON) 20 mEq tablet (more content not included)... Normal [facility] Bacteria Ur Culton 03-09-202 5 Bacteria identified Cx Nom (U) CULTURE, URINE: [...] , Intermediate >32 , Resistant >64 Abnormal [facility] Comment on above: Performed By: #### 6 30-4 ####[facility] LABCLIA [id number] [facility]USBe [address] OF [facility] CNOVon 07-26-2024 CNOV Office Visit (UCWSTR) NIURKA ZHU ([id number]) 1980 F Date Time Provider Department 07/26/24 10:15 AM YOBANI BALLESTEROS [facility] During your visit today, we recorded the following information about you: Temperature Pulse Respiration Blood pressure 97.9 degrees 64/minute 16/minute 128/82 Weight 70.6 kg Yobani Ballesteros APRN.LEGAL FILE CLERK 07/26/2024 10:22 AM Signed [facility] Subjective Niurka Rod Lizandro is a 44 year old female. Presents [...] proceed to ER. Verbalized understanding. Yobani Ballesteros APRN.LEGAL FILE CLERK Differential Diagnoses - kidney stone is more [...] Diagnosis:Urinary frequency [R35.0] Order(s):UA DIP, URINE (POC) [[id number]] Order #: [id number]. #:[id number] BACTERIAL CULTURE, URINE [SQURCUL] Order #: [id number]. #:[id number] Prescriptions as of 07/26/2024 - MAGTAB 84 [...] 1 capsule by mouth once daily. - oqbtmu-llssjaac-wtrl ase (ZENPEP) 25,000-79,000- 105,000 unit delayed release capsule Take 2 with meals and 1 with snacks - cyanocobalamin (VITAMIN B-12) 1,000 mcg/mL Inject 1 mL intramuscularly once every month. Then resume monthly 1 mL injections for 2 months. Administer at [facility] - Syringe with Needle, Disp, 3 [...] - pyr (more content not included)... Normal [facility] UA DIP, URINE (POC)on 2024 BILIRUBIN UA (POCT) Negative Negative [facility] CLARITY UA (POCT) Clear [facility] COLOR UA (POCT) Yellow [facility] GLUCOSE UA (POCT) Negative Negative mg/dL [facility] Hemoglobin Ql (U) Moderate Abnormal Negative [facility] Interpretation and review of laboratory results Abnormal [facility] KETONE UA (POCT) Negative Negative mg/dL [facility] LEUKOCYTES UA (POCT) Negative Negative [facility] NITRITE UA (POCT) Negative Negative [facility] PH UA (POCT) 5.5 4.5 - 8.0 [facility] Protein Ql (U) Negative Negative mg/dL [facility] SPECIFIC GRAVITY UA (POCT) 1.025 1.005 - 1.030 [facility] UROBILINOGEN UA (POCT) 0.2 Normal E.U./d L [facility] Location:[facility], [address] [place] [address], [place], [place], [id number] [place] [address] POINT OF CARE [facility] CNPBanner 07-22-2024 CNPN Telephone (GASTA5) NIURKA ZHU ([id number]) 1980 F Date Time Provider Department 07/22/24 CGRT DIETITIAN GASTA5 During your visit today, we recorded the following information about you: Nicole Ling 07/22/2024 3:15 PM Signed Patient: NIURKA ZHU ([id number]) Latest Ref Rng 07/21/2024 Glucose 74 - [...] 2.3 mg/dL 1.3 (L) Pending: Vit E Condo Shameka, RD 07/24/2024 10:53 AM Signed Mg++ unchanged [...] 07/27/2024 4:18 PM Signed Patient: NIURKA ZHU ([id number]) 07/21/2024 Vitamin E-alpha 3.0 Vitamin E-gamma 0.6 [...] 1 capsule by mouth once daily. - sugclv-cysbvaoh-ffvt ase (ZENPEP) 25,000-79,000- 105,000 unit delayed release capsule Take 2 with meals and 1 with snacks - cyanocobalamin (VITAMIN B-12) 1,000 mcg/mL Inject 1 mL intramuscularly once every month. Then resume monthly 1 mL injections for 2 months. Administer at [facility] - Syringe with Needle, Disp, 3 [...] specified site [R10.9] 01/01/2014 Myalgia and myositis [XYB1585] 01/01/2014 Chest pain [R07.9] 01/11/2014 10/23/2016 ASA CLASS II [1001] 07/20/2014 Short bowel syndrome [K90.829] 01/11/2015 Intestinal malabsorption [K90.9] 01/11/2015 Hypomagnesemia [E83.42] 03/02/2016 SBO (small bowel obstruction) (HCC) [K56.609] 05/25/2016 10/23/2016 Surgery, e (more content not included)... Normal [facility] A-Tocopherol Vit E SerPl-n con 07-21-2024 Alpha tocopherol [Mass/Vol] Normal [facility] Comment on above: Order Comment: Speci men Type: BLOOD SPECIMEN Ordering Facility: [facility] Address: [address] [place] [address] Result Comment: 3.0 mg/L Test performed at [facility] in [place], [place]. Disregard [facility] reference range. [facility] Vitamin E alpha reference range is: 5.5-18.0 mg/L. [facility] Vitamin E gamma reference range is: 0.0-6.0 mg/L. This test was developed and its performance characteristics determined by [facility]. It has not been cleared or approved by the [place] Food and Drug Administration. This test was performed in a CLIA certified laboratory and is intended for clinical purposes. Performed By: #### 1 9123-9, 54296-6 #### [facility] CLIA [id number] [address] [place] [address] [place] Alpha tocopherol [Mass/Vol]o n 07-21-2024 Beta+gamma tocopherol [Mass/Vol] Normal [facility] Comment on above: Order Comment: Speci men Type: BLOOD SPECIMEN Ordering Facility: [facility] Address: [address] [place] [address] Result Comment: 0.6 mg/L Test performed at [facility] in [place], [place]. Disregard [facility] reference range. [facility] Vitamin E alpha reference range is: 5.5-18.0 mg/L. [facility] Vitamin E gamma reference range is: 0.0-6.0 mg/L. This test was developed and its performance characteristics determined by [facility]. It has not been cleared or approved by the US Food and Drug Administration. This test was performed in a CLIA certified laboratory and is intended for clinical purposes. Performed By: #### 1 9123-9, 76056-7 #### [facility] CLIA [id number] [address] [place] [address] [place] Basic metabolic 2000 panelon 07-21-2024 Anion gap [Moles/Vol] 8 mmol/L Normal 8-15 [facility] Comment on above: Order Comment: Speci men Type: BLOOD SPECIMEN Ordering Facility: [facility] Address: [address] [place], [place] [address] Performed By: #### 1 9123-9, 31472-6 #### [facility] CLIA [id number] [address] [place] [address] [place] Calcium [Mass/Vol] 9.1 mg/dL Normal 8.5-10.2 [facility] Comment on above: Order Comment: Speci men Type: BLOOD SPECIMEN Ordering Facility: [facility] Address: [address] [place] [address] Performed By: #### 1 9123-9, 32481-3 #### [facility] CLIA [id number] [address] [place] [address] [place] Chloride [Moles/Vol] 106 mmol/L Normal 98-107 [facility] Comment on above: Order Comment: Speci men Type: BLOOD SPECIMEN Ordering Facility: [facility] Address: [address] [place] [address] Performed By: #### 1 9123-9, 89907-1 #### [facility] CLIA [id number] [address] [place] [address] [place] CO2 [Moles/Vol] 26 mmol/L Normal 22-30 [facility] Comment on above: Order Comment: Speci men Type: BLOOD SPECIMEN Ordering Facility: [facility] Address: [address] [place] [address] Performed By: #### 1 9123-9, 99350-6 #### [facility] CLIA [id number] [address] [place] [address] [place] Creatinine [Mass/Vol] 0.54 mg/dL Low 0.58-0.96 [facility] Comment on above: Order Comment: Speci men Type: BLOOD SPECIMEN Ordering Facility: [facility] Address: [address] [place] [address] Performed By: #### 1 9123-9, #### [facility] [id number] [address] [place] [address] [place] Creatinine and Glomerular filtration rate.predicted panel (S/P/Bld) 117 mL/min/1.73m??? Normal >=60 [facility] Comment on above: Order Comment: Speci men Type: BLOOD SPECIMEN Ordering Facility: [facility] Address: [address] [place] [address] Result Comment: Eve mated Glomerular Filtration Rate [...] actual GFR. Performed By: #### 1 9123-9, 65790-2 #### [facility] [id number] [address] [place] [address] [place] Glucose [Mass/Vol] 99 mg/dL Normal 74-99 [facility] Comment on above: Order Comment: Speci men Type: BLOOD SPECIMEN Ordering Facility: [facility] Address: [address] [place] [address] Result Comment: The [place] Diabetes Association (ADA) provides guidance for cutoff [...] Standards of Medical Care in Diabetes 2016, [place] Diabetes Association. Diabetes Care. 2016.39(Suppl 1). Performed By: #### 1 9123-9, 63983-6 #### [facility] [id number] [address] [place] [address] [place] Potassium [Moles/Vol] 3.5 mmol/L Low 3.7-5.1 [facility] Comment on above: Order Comment: Speci men Type: BLOOD SPECIMEN Ordering Facility: [facility] Address: [address] [place] [address] Performed By: #### 1 9123-9, 69864-3 #### [facility] [id number] [address] [place] [address] [place] Sodium [Moles/Vol] 140 mmol/L Normal 136-144 [facility] Comment on above: Order Comment: Speci men Type: BLOOD SPECIMEN Ordering Facility: [facility] Address: [address] [place] [address] Performed By: #### 1 9123-9, 75038-5 #### [facility] CLIA [id number] [address] [place] [address] [place] Urea nitrogen [Mass/Vol] 7 mg/dL Normal 7-21 [facility] Comment on above: Order Comment: Speci men Type: BLOOD SPECIMEN Ordering Facility: [facility] Address: [address] [place] [address] Performed By: #### 1 9123-9, 72452-3 #### [facility] CLIA [id number] [address] [place] Magnesium SerPl-mCncon 07-21 Magnesium [Mass/Vol] 1.3 mg/dL Low 1.7-2.3 [facility] Comment on above: Order Comment: Speci men Type: BLOOD SPECIMEN Ordering Facility: [facility] Address: [address] [place] [address] Performed By: #### 1 9123-9, 57677-5 #### [facility] CLIA [id number] [address] CNPJacinda 07-14-2024 CNPN Telephone (GASTA5) NIURKA ZHU ([id number]) 1980 F Date Time Provider Department 07/14/24 VIKKI ELMORE GASTA5 During your visit today, we recorded the following information about you: Mihai Johnson RN 07/14/2024 3:38 PM Signed PA needed for med, hendrickson code in covermymeds [id number] and sent to [facility]. DOMINGO Mccall Ann, RN 07/16/2024 10:04 AM Signed Per covermymeds, [...] Fully Assessed Reason for Visit: Insurance Authorization [[id number]] Cmt: for Mag tab Prescriptions as of [...] 1 capsule by mouth once daily. - rxwheu-tangndyu-irky ase (ZENPEP) 25,000-79,000- 105,000 unit delayed release capsule Take 2 with meals and 1 with snacks - cyanocobalamin (VITAMIN B-12) 1,000 mcg/mL Inject 1 mL intramuscularly once every month. Then resume monthly 1 mL injections for 2 months. Administer at [facility] - Syringe with Needle, Disp, 3 [...] specified site [R10.9] 01/01/2014 Myalgia and myositis [TAC6206] 01/01/2014 Chest pain [R07.9] 01/11/2014 10/23/2016 ASA [...] Encounter Status:Closed by MIHAI JOHNSON on 07/14/24 [facility] Som 07-06-2024 TALIA Telephone (GASTA5) NIURKA ZHU ([id number]) 1980 F Date Time Provider Department 07/06/24 CGRT DIETITIAN JOSE ALEJANDRO During your visit today, we recorded the following information about you: Nicole Ling 07/06/2024 4:08 PM Signed Patient: NIURKA ZHU ([id number]) Latest Ref Rng 07/01/2024 WBC 3.70 - [...] Abs Lymph 1.00 - 4.00 k/uL 1.41 [place]% % 7.2 Abs [place] <0.87 k/uL 0.34 Eosin% % 2.7 Abs [...] as lab not obtained. Shameka Joyce RD Heidi Cano 07/07/2024 12:02 PM Signed Pt called, returning Shameka call. Shameka Joyce RD 07/07/2024 12:26 PM Signed Attempted to return call to patient. VM left. Shameka Joyce RD Nicole Ling 07/07/2024 1:34 PM Signed Patient returned call to office for LIZZY Myles. Niurka Shameka Joyce RD 07/07/2024 1:56 PM Signed Spoke to patient regarding recommendations below. Scripts [facility] in [place], [place] Recommendations: - START DEKAs essential daily [...] 07/01/2024 Courtney (more content not included)... Normal [facility] Cobalamin (Vitamin B12) [Mas s/Vol]on 07-02-2024 Interpretation and review of laboratory results Abnormal [facility] VITAMIN B12on 07-02-2024 Cobalamin (Vitamin B12) [Mass/Vol] pg/mL Low 232 - 1245 pg/mL [facility] Comment on above: Result rechecked. 25(OH)D3 SerPl-mCncon 2024 25-hydroxyvitamin D3 [Mass/Vol] 10.8 ng/mL Low 31.0-80.0 [facility] Comment on above: Order Comment: Speci men Type: BLOOD SPECIMENOrdering Facility: [facility] Address: [address] [place] [address] Result Comment: Clas sification of 25 [place] Vitamin D status: Deficiency/Insufficiency: < or = 30 ng/ml. Sufficiency/Optimal Levels: 31-80 ng/mL Toxicity: > 100 ng/mL. Test performed by chemiluminescent immunoassay. Performed By: #### 1 989-3 ####[facility] [id number] [place] [address] [place] 25-hydroxyvitamin D3 [Mass/V ol]on 07-01-2024 Interpretation and review of laboratory results Abnormal [facility] The reference range interval was based on an analysis of samples from healthy adults and may not pertain to children from 0-18 years old. [facility] A-Tocopherol Vit E SerPl-mCn con 07-01-2024 Alpha tocopherol [Mass/Vol] Normal [facility] Comment on above: Order Comment: Speci men Type: BLOOD SPECIMENOrdering Facility: [facility] Address: [address] [place] [address] Result Comment: 2.5 mg/L Test performed at [facility] in [place], [place]. Disregard [facility] reference range. [facility] Vitamin E alpha reference range is: 5.5-18.0 mg/L. [facility] Vitamin E gamma reference range is: 0.0-6.0 mg/L. This test was developed and its performance characteristics determined by [facility]. It has not been cleared or approved by the US Food and Drug Administration. This test was performed in a CLIA certified laboratory and is intended for clinical purposes. Performed By: #### 2 923-1, 1823- ####[facility] [id number] [place] [address] [place] [facility] Alpha tocopherol [Mass/Vol]o n 07-01-2024 Beta+gamma tocopherol [Mass/Vol] Normal [facility] Comment on above: Order Comment: Speci men Type: BLOOD SPECIMENOrdering Facility: [facility] Address: [address] [place] [address] Result Comment: 0.4 mg/L Test performed at [facility] in [place], [place]. Disregard [facility] reference range. [facility] Vitamin E alpha reference range is: 5.5-18.0 mg/L. [facility] Vitamin E gamma reference range is: 0.0-6.0 mg/L. This test was developed and its performance characteristics determined by [facility]. It has not been cleared or approved by the US Food and Drug Administration. This test was performed in a CLIA certified laboratory and is intended for clinical purposes. Performed By: #### 2 923-1, 1822-08 ####[facility] LABIA [id number] [address] [place] CBC W Auto Differential pane l (Bld)on 07-01-2024 Basophils (Bld) [#/Vol] 0.04 10*3/uL [facility] Basophils/100 WBC (Bld) 0.8 % [facility] Differential cell count method Nom (Bld) Auto [facility] Eosinophils (Bld) [#/Vol] 0.13 10*3/uL [facility] Eosinophils/100 WBC (Bld) 2.7 % [facility] Erythrocyte distribution width (RBC) [Ratio] 12.8 % 11.5 - 15.0 % [facility] Hematocrit (Bld) [Volume fraction] 41.7 % 36.0 - 46.0 % [facility] Hemoglobin (Bld) [Mass/Vol] 13.4 g/dL 11.5 - 15.5 g/dL [facility] Immature granulocytes (Bld) [#/Vol] NINF [facility] Immature granulocytes/100 WBC (Bld) 0.2 % [facility] Lymphocytes (Bld) [#/Vol] 1.41 10*3/uL [facility] Lymphocytes/100 WBC (Bld) 29.8 % [facility] MCH (RBC) [Entitic mass] 29.7 pg 26.0 - 34.0 pg [facility] MCHC (RBC) [Mass/Vol] 32.1 g/dL 30.5 - 36.0 g/dL [facility] MCV (RBC) [Entitic vol] 92.5 fL 80.0 - 100.0 fL [facility] Monocytes (Bld) [#/Vol] 0.34 10*3/uL [facility] Monocytes/100 WBC (Bld) 7.2 % [facility] Neutrophils (Bld) [#/Vol] 2.8 10*3/uL [facility] Neutrophils/100 WBC (Bld) 59.3 % [facility] Nucleated RBC (Bld) [#/Vol] [facility] Nucleated RBC/100 WBC (Bld) [Ratio] 0 % /100 WBC [facility] Platelet mean volume (Bld) [Entitic vol] 9.9 fL 9.0 - 12.7 fL [facility] Platelets (Bld) [#/Vol] 173 10*3/uL [facility] RBC (Bld) [#/Vol] 4.51 10*6/uL 3.90 - 5.2 0 m/uL [facility] WBC (Bld) [#/Vol] 4.73 10*3/uL [facility] Basophils (Bld) [#/Vol] 0.04 10*3/uL Normal <0.11 [facility] Comment on above: Order Comment: Speci men Type: BLOOD SPECIMENOrdering Facility: [facility] Address: [address] [place], [place] [address] Performed By: #### 5 7021-8 ####[facility] LABCLIA [id number] [place] [address] [place] Basophils/100 WBC (Bld) 0.8 % Normal [facility] Comment on above: Order Comment: Speci men Type: BLOOD SPECIMENOrdering Facility: [facility] Address: [address] [place] [address] Performed By: #### 5 7021-8 ####[facility]IA [id number] [place] [address] [place] Differential cell count method Nom (Bld) Auto Normal [facility] Comment on above: Order Comment: Speci men Type: BLOOD SPECIMENOrdering Facility: [facility] Address: [address] [place] [address] Performed By: #### 5 7021-8 ####[facility] LAB[facility]IA [id number] [place] [address] [place] Eosinophils (Bld) [#/Vol] 0.13 10*3/uL Normal <0.46 [facility] Comment on above: Order Comment: Speci men Type: BLOOD SPECIMENOrdering Facility: [facility] Address: [address] [place] [address] Performed By: #### 5 7021-8 ####[facility]IA [id number] [place] [address] [place] Eosinophils/100 WBC (Bld) 2.7 % Normal [facility] Comment on above: Order Comment: Speci men Type: BLOOD SPECIMENOrdering Facility: [facility] Address: [address] [place] [address] Performed By: #### 5 7021-8 ####[facility] [id number] [place] [address] [place] Erythrocyte distribution width (RBC) [Ratio] 12.8 % Normal 11.5-15.0 [facility] Comment on above: Order Comment: Speci men Type: BLOOD SPECIMENOrdering Facility: [facility] Address: [address] [place] [address] Performed By: #### 5 7021-8 ####[facility] [id number] [place] [address] [place] Hematocrit (Bld) [Volume fraction] 41.7 % Normal 36.0-46.0 [facility] Comment on above: Order Comment: Speci men Type: BLOOD SPECIMENOrdering Facility: [facility] Address: [address] [place] [address] Performed By: #### 5 7021-8 ####[facility] [id number] [place] [address] [place] Hemoglobin (Bld) [Mass/Vol] 13.4 g/dL Normal 11.5-15.5 [facility] Comment on above: Order Comment: Speci men Type: BLOOD SPECIMENOrdering Facility: [facility] Address: [address] [place] [address] Performed By: #### 5 7021-8 ####[facility] [id number] [place] [address] [place] Immature granulocytes (Bld) [#/Vol] 10*3/uL Normal <0.10 [facility] Comment on above: Order Comment: Speci men Type: BLOOD SPECIMENOrdering Facility: [facility] Address: [address] [place] [address] Performed By: #### 5 7021-8 ####[facility] [id number] [place] [address] [place] Immature granulocytes/100 WBC (Bld) 0.2 % Normal [facility] Comment on above: Order Comment: Speci men Type: BLOOD SPECIMENOrdering Facility: [facility] Address: [address] [place] [address] Performed By: #### 5 7021-8 ####[facility] [id number] [place] [address] [place] Lymphocytes (Bld) [#/Vol] 1.41 10*3/uL Normal 1.00-4.00 [facility] Comment on above: Order Comment: Speci men Type: BLOOD SPECIMENOrdering Facility: [facility] Address: [address] [place] [address] Performed By: #### 5 7021-8 ####[facility] [id number] [place] [address] [place] Lymphocytes/100 WBC (Bld) 29.8 % Normal [facility] Comment on above: Order Comment: Speci men Type: BLOOD SPECIMENOrdering Facility: [facility] Address: [address] [place] [address] Performed By: #### 5 7021-8 ####[facility] LABIA [id number] [place] [address] [place] MCH (RBC) [Entitic mass] 29.7 pg Normal 26.0-34.0 [facility] Comment on above: Order Comment: Speci men Type: BLOOD SPECIMENOrdering Facility: [facility] Address: [address] [place] [address] Performed By: #### 5 7021-8 ####[facility]IA [id number] [place] [address] [place] MCHC (RBC) [Mass/Vol] 32.1 g/dL Normal 30.5-36.0 [facility] Comment on above: Order Comment: Speci men Type: BLOOD SPECIMENOrdering Facility: [facility] Address: [address] [place] [address] Performed By: #### 5 7021-8 ####[facility]IA [id number] [place] [address] [place] MCV (RBC) [Entitic vol] 92.5 fL Normal 80.0-100.0 [facility] Comment on above: Order Comment: Speci men Type: BLOOD SPECIMENOrdering Facility: [facility] Address: [address] [place] [address] Performed By: #### 5 7021-8 ####[facility]IA [id number] [place] [address] [place] Monocytes (Bld) [#/Vol] 0.34 10*3/uL Normal <0.87 [facility] Comment on above: Order Comment: Speci men Type: BLOOD SPECIMENOrdering Facility: [facility] Address: [address] [place] [address] Performed By: #### 5 7021-8 ####[facility]IA [id number] [place] [address] [place] Monocytes/100 WBC (Bld) 7.2 % Normal [facility] Comment on above: Order Comment: Speci men Type: BLOOD SPECIMENOrdering Facility: [facility] Address: [address] [place] [address] Performed By: #### 5 7021-8 ####[facility]IA [id number] [place] [address] [place] Neutrophils (Bld) [#/Vol] 2.80 10*3/uL Normal 1.45-7.50 [facility] Comment on above: Order Comment: Speci men Type: BLOOD SPECIMENOrdering Facility: [facility] Address: [address] [place] [address] Performed By: #### 5 7021-8 ####[facility]IA [id number] [place] [address] [place] Neutrophils/100 WBC (Bld) 59.3 % Normal [facility] Comment on above: Order Comment: Speci men Type: BLOOD SPECIMENOrdering Facility: [facility] Address: [address] [place] [address] Performed By: #### 5 7021-8 ####[facility] [id number] [place] [address] [place] Nucleated RBC (Bld) [#/Vol] 10*3/uL Normal <0.01 [facility] Comment on above: Order Comment: Speci men Type: BLOOD SPECIMENOrdering Facility: [facility] Address: [address] [place] [address] Performed By: #### 5 7021-8 ####[facility]IA [id number] [place] [address] [place] Nucleated RBC/100 WBC (Bld) [Ratio] 0.0 /100 WBC Normal [facility] Comment on above: Order Comment: Speci men Type: BLOOD SPECIMENOrdering Facility: [facility] Address: [address] [place] [address] Performed By: #### 5 7021-8 ####[facility]IA [id number] [place] [address] [place] Platelet mean volume (Bld) [Entitic vol] 9.9 fL Normal 9.0-12.7 [facility] Comment on above: Order Comment: Speci men Type: BLOOD SPECIMENOrdering Facility: [facility] Address: [address] [place] [address] Performed By: #### 5 7021-8 ####[facility]IA [id number] [place] [address] [place] Platelets (Bld) [#/Vol] 173 10*3/uL Normal 150-400 [facility] Comment on above: Order Comment: Speci men Type: BLOOD SPECIMENOrdering Facility: [facility] Address: [address] [place] [address] Performed By: #### 5 7021-8 ####[facility]IA [id number] [place] [address] [place] RBC (Bld) [#/Vol] 4.51 10*6/uL Normal 3.90-5.20 [facility] Comment on above: Order Comment: Speci men Type: BLOOD SPECIMENOrdering Facility: [facility] Address: [address] [place] [address] Performed By: #### 5 7021-8 ####[facility] [id number] [place] [address] [place] WBC (Bld) [#/Vol] 4.73 10*3/uL Normal 3.70-11.00 [facility] Comment on above: Order Comment: Speci men Type: BLOOD SPECIMENOrdering Facility: [facility] Address: [address] [place] [address] Performed By: #### 5 7021-8 ####[facility] LAB[facility]IA [id number] [address] [place] CNOVon 07-01-2024 CNOV Office Visit (GGENMN) NIURKA ZHU ([id number]) 1980 F Date Time Provider Department 07/01/24 1:30 PM VIKKI ELMORE GGHUGOMN During your visit today, we recorded the following information about you: Pulse Blood pressure Weight Height 95/minute 149/95 66.2 kg 1.626 m Vikki Elmore MD 07/01/2024 11:00 PM Signed [facility] Department of Gastroenterology AND Hepatology [facility] [place] Established Patient Visit NAME: Niurka Zhu CLINIC NO: [id number] REASON FOR VISIT: Follow up Last visit: [...] edema. Skin: no rashes or lesions Lilo aBnegas MD Gastroenterology, Hepatology AND Nutrition Fellow, PGY 4 [facility] [place] I saw and evaluated the patient with [...] option m (more content not included)... Normal [facility] COPPER BLOODon 07-01-2024 Copper [Mass/Vol] 60 ug/dL Low 80-155 [facility] Comment on above: Order Comment: Nazanin pendleton Type: BLOOD SPECIMENOrdering Facility: [facility] Address: [address] [place] [address] Result Comment: This test was developed, and its performance characteristics determined by the [facility] Department of Pathology and Laboratory Medicine. It has not been cleared or approved by the FDA. The [facility] Department of Pathology and Laboratory Medicine is regulated under CLIA as qualified to perform high-complexity testing. This test is used for clinical purposes. It should not be regarded as investigational or for research. Performed By: #### C ANNIE, 5763-8 ####[facility] LAB[facility]IA [id number] [place] [address] [place] CRP SerPl-mCncon 07-01-2024 CRP [Mass/Vol] mg/L Normal <0.9 [facility] Comment on above: Order Comment: Nazanin pendleton Type: BLOOD SPECIMENOrdering Facility: [facility] Address: [address] [place] [address] Performed By: #### 2 284-8, 1988-5, 2276-4, 79316-9, 2132-9 ####[facility] LABIA [id number] [place] [address] [place] Comprehensive metabolic 2000 panelon 07-01-2024 Albumin [Mass/Vol] 4.5 g/dL 3.9 - 4.9 g/dL [facility] ALP [Catalytic activity/Vol] 89 U/L 34 - 123 U/L [facility] ALT [Catalytic activity/Vol] 23 U/L 7 - 38 U/L [facility] Anion gap [Moles/Vol] 12 mmol/L 8 - 15 mmol/L [facility] AST [Catalytic activity/Vol] 28 U/L 13 - 35 U/L [facility] Bilirubin [Mass/Vol] 0.9 mg/dL 0.2 - 1 .3 mg/dL [facility] Calcium [Mass/Vol] 9.6 mg/dL 8.5 - 10. 2 mg/dL [facility] Chloride [Moles/Vol] 103 mmol/L 98 - 10 7 mmol/L [facility] CO2 [Moles/Vol] 23 mmol/L 22 - 30 mmol/L [facility] Creatinine [Mass/Vol] 0.67 mg/dL 0.58 - 0.96 mg/dL [facility] GFR/1.73 sq M.predicted among non-blacks MDRD (S/P/Bld) [Vol rate/Area] 111 mL/min/{1.73_m2} - PINF [facility] Comment on above: Estimated Glomerular Filtration [...] [Mass/Vol] 79 mg/dL 74 - 99 mg/dL [facility] Comment on above: The [place] Diab[employer] s Association (ADA) provides guidance for [...] Standards of Medical Care in Diabetes 2016, [place] [employer]. Diabetes Care. 2016.39(Suppl 1). Interpretation and review of laboratory results Abnormal [facility] Potassium [Moles/Vol] 3.6 mmol/L Low 3.7 - 5.1 mmol/L [facility] Protein [Mass/Vol] 7 g/dL 6.3 - 8.0 g/dL [facility] Sodium [Moles/Vol] 138 mmol/L 136 - 144 mmol/L [facility] Urea nitrogen [Mass/Vol] 10 mg/dL 7 - 21 mg/d L [facility] Albumin [Mass/Vol] 4.5 g/dL Normal 3.9-4.9 [facility] Comment on above: Order Comment: Speci men Type: BLOOD SPECIMENOrdering Facility: [facility] Address: [address] [place], [place] [address] Performed By: #### 2 284-8, 1987-09, 2275-08, 06526-1, 2132-01 ####[facility]IA [id number] [place] [id number] [place] ALP [Catalytic activity/Vol] 89 U/L Normal 34-123 [facility] Comment on above: Order Comment: Speci men Type: BLOOD SPECIMENOrdering Facility: [facility] Address: [address] [place], [place] [address] Performed By: #### 2 284-8, 1987-09, 2275-08, , 2132-01 ####[facility] [id number] [place] [id number] [place] ALT [Catalytic activity/Vol] 23 U/L Normal 7-38 [facility] Comment on above: Order Comment: Speci men Type: BLOOD SPECIMENOrdering Facility: [facility] Address: [address] [place], [place] [address] Performed By: #### 2 284-8, 1987-09, 2275-08, 53337-6, 2132-01 ####[facility] LABIA [id number] [place] [id number] [place] Anion gap [Moles/Vol] 12 mmol/L Normal 8-15 [facility] Comment on above: Order Comment: Speci men Type: BLOOD SPECIMENOrdering Facility: [facility] Address: [address] [place], [place] [address] Performed By: #### 2 284-8, 1987-09, 2275-08, , 2132-01 ####[facility] LABCLIA [id number] [place] [id number] [place] AST [Catalytic activity/Vol] 28 U/L Normal 13-35 [facility] Comment on above: Order Comment: Speci men Type: BLOOD SPECIMENOrdering Facility: [facility] Address: [address] [place] [address] Performed By: #### 2 284-8, 1987-09, 2275-08, , 2132-01 ####[facility] LABCLIA [id number] [place] [address] [place] Bilirubin [Mass/Vol] 0.9 mg/dL Normal 0.2-1.3 [facility] Comment on above: Order Comment: Speci men Type: BLOOD SPECIMENOrdering Facility: [facility] Address: [address] [place] [address] Performed By: #### 2 284-8, 1987-09, 2275-08, , 2132-01 ####[facility] [id number] [place] [address] [place] Calcium [Mass/Vol] 9.6 mg/dL Normal 8.5-10.2 [facility] Comment on above: Order Comment: Speci men Type: BLOOD SPECIMENOrdering Facility: [facility] Address: [address] [place] [address] Performed By: #### 2 284-8, 1987-09, 2275-08, , 2132-01 ####[facility] [id number] [place] [address] [place] Chloride [Moles/Vol] 103 mmol/L Normal 98-107 [facility] Comment on above: Order Comment: Speci men Type: BLOOD SPECIMENOrdering Facility: [facility] Address: [address] [place] [address] [place] [address] Performed By: #### 2 284-8, 1987-09, 2275-08, , 2132-01 ####[facility] LABCLIA [id number] [address] [address] [place] CO2 [Moles/Vol] 23 mmol/L Normal 22-30 [facility] Comment on above: Order Comment: Speci men Type: BLOOD SPECIMENOrdering Facility: [facility] Address: [address] [place], [place] [address] Performed By: #### 2 284-8, 1987-09, 2275-08, , 2132-01 ####[facility] [id number] [place] [id number] [place] Creatinine [Mass/Vol] 0.67 mg/dL Normal 0.58-0.96 [facility] Comment on above: Order Comment: Speci men Type: BLOOD SPECIMENOrdering Facility: [facility] Address: [address] [place], [place] [address] Performed By: #### 2 284-8, 1987-09, 2275-08, , 2132-01 ####[facility] [id number] [place] [id number] [place] Creatinine and Glomerular filtration rate.predicted panel (S/P/Bld) 111 mL/min/1.73m??? Normal >=60 [facility] Comment on above: Order Comment: Speci men Type: BLOOD SPECIMENOrdering Facility: [facility] Address: [address] [place], [place] [id number] Result Comment: Eve mated Glomerular Filtration Rate [...] actual GFR. Performed By: #### 2 284-8, 1987-09, 2275-08, , 2132-01 ####[facility] LABCLIA [id number] [address] [address] [place] Glucose [Mass/Vol] 79 mg/dL Normal 74-99 [facility] Comment on above: Order Comment: Speci men Type: BLOOD SPECIMENOrdering Facility: [facility] Address: [address] [place] [address] Result Comment: The [place] Diabetes Association (ADA) provides guidance for cutoff [...] Standards of Medical Care in Diabetes 2016, [place] [employer] Association. Diabetes Care. 2016.39(Suppl 1). Performed By: #### 2 284-8, 1987-09, 2275-08, , 2132-01 ####[facility] LABCLIA [id number] [address] [address] [place] Potassium [Moles/Vol] 3.6 mmol/L Low 3.7-5.1 [facility] Comment on above: Order Comment: Speci men Type: BLOOD SPECIMENOrdering Facility: [facility] Address: [address] [place] [address] Performed By: #### 2 284-8, 1987-09, 2275-08, , 2132-01 ####[facility] LABCLIA [id number] [address] [address] [place] Protein [Mass/Vol] 7.0 g/dL Normal 6.3-8.0 [facility] Comment on above: Order Comment: Speci men Type: BLOOD SPECIMENOrdering Facility: [facility] Address: [address] [place] [address] [place] [address] Performed By: #### 2 284-8, 1987-09, 2275-08, , 2132-01 ####[facility] LABCLIA [id number] [address] [address] [place] Sodium [Moles/Vol] 138 mmol/L Normal 136-144 [facility] Comment on above: Order Comment: Speci men Type: BLOOD SPECIMENOrdering Facility: [facility] Address: [address] [place], [place] [address] Performed By: #### 2 284-8, 1987-09, 2275-08, , 2132-01 ####[facility] LABCLIA [id number] [place] [id number] [place] Urea nitrogen [Mass/Vol] 10 mg/dL Normal 7-21 [facility] Comment on above: Order Comment: Speci men Type: BLOOD SPECIMENOrdering Facility: [facility] Address: [address] [place], [place] [address] Performed By: #### 2 284-8, 1987-09, 2275-08, , 2132-01 ####[facility] [id number] [place] [id number] [place] FERRITINon 07-01-2024 Ferritin [Mass/Vol] 160 ng/mL 14.7 - 2 05.1 ng/mL [facility] FOLATE, SERUMon 07-01-2024 Folate [Mass/Vol] 12.9 ng/mL 4.7 - PINF ng/mL [facility] Ferritin SerPl-mCncon 2024 Ferritin [Mass/Vol] 160.0 ng/mL Normal 14.7-205.1 [facility] Comment on above: Order Comment: Speci men Type: BLOOD SPECIMENOrdering Facility: [facility] Address: [address] [place] [address] Performed By: #### 2 284-8, 1987-09, 2275-08, , 2132-01 ####[facility] LABCLIA [id number] [address] [address] [place] Ferritin [Mass/Vol]on 2024 Interpretation and review of laboratory results Normal [facility] Folate SerPl-mCncon 07-01-19 Folate [Mass/Vol] 12.9 ng/mL Normal >4.7 [facility] Comment on above: Order Comment: Speci men Type: BLOOD SPECIMENOrdering Facility: [facility] Address: [address] [place] [address] Performed By: #### 2 284-8, 1987-09, 2275-08, , 2132-01 ####[facility] LABCLIA [id number] [address] [address] [place] Folate [Mass/Vol]on 07-01-19 Interpretation and review of laboratory results Normal [facility] Iron and Iron binding capaci ty panelon 07-01-2024 Iron [Mass/Vol] 95 ug/dL Normal 41-186 [facility] Comment on above: Order Comment: Speci men Type: BLOOD SPECIMENOrdering Facility: [facility] Address: [address] [place], [place] [address] Performed By: #### 2 777-1, 40441-6, , 3015-3 ####[facility] [id number] [place] [id number] [place] Iron binding capacity [Mass/Vol] 277 ug/dL Normal 232-386 [facility] Comment on above: Order Comment: Speci men Type: BLOOD SPECIMENOrdering Facility: [facility] Address: [address] [place] [address] Performed By: #### 2 777-1, 13238-0, 55222-0, 6-3 ####[facility]ATORYCLIA [id number] [place] [address] [place] Iron/TIBC [Molar ratio] 34.3 % Normal 20.0-55.0 [facility] Comment on above: Order Comment: Speci men Type: BLOOD SPECIMENOrdering Facility: [facility] Address: [address] [place] [address] Performed By: #### 2 777-1, 44895-9, 71258-3, 6-3 ####[facility]ATORYCLIA [id number] [place] [address] [place] Magnesium SerPl-mCncon 07-01 Magnesium [Mass/Vol] 1.3 mg/dL Low 1.7-2.3 [facility] Comment on above: Order Comment: Speci men Type: BLOOD SPECIMENOrdering Facility: [facility] Address: [address] [place] [address] Performed By: #### 2 777-1, 70645-4, 58330-2, 6-3 ####[facility]ORATORYCLIA [id number] [place] [address] [place] Methylmalonate SerPl-sCncon 07-01-2024 Methylmalonate [Moles/Vol] 3.21 umol/L High <=0.40 [facility] Comment on above: Order Comment: Speci men Type: BLOOD SPECIMENOrdering Facility: [facility] Address: [address] [place] [address] Result Comment: This test was developed, and its performance characteristics determined by the [facility] Department of Pathology and Laboratory Medicine. It has not been cleared or approved by the FDA. The [facility] Department of Pathology and Laboratory Medicine is regulated under CLIA as qualified to perform high-complexity testing. This test is used for clinical purposes. It should not be regarded as investigational or for research. Performed By: #### 1 3964-2 ####[facility] LABCLIA [id number] [place] [address] [place] Phosphate SerPl-mCncon 07-01 Phosphate [Mass/Vol] 3.0 mg/dL Normal 2.7-4.8 [facility] Comment on above: Order Comment: Specjesus alberto pendleton Type: BLOOD SPECIMENOrdering Facility: [facility] Address: [address] [place] [address] Performed By: #### 2 777-1, 29898-4, 95943-6, 3015-3 ####[facility]ATORYCLIA [id number] [place] [address] [place] TSH SerPl-aCncon 07-01-2024 TSH Qn 1.510 m[IU]/L Normal 0.270-4.200 [facility] Comment on above: Order Comment: Nazanin pendleton Type: BLOOD SPECIMENOrdering Facility: [facility] Address: [address] [place] [address] Result Comment: If t he patient is [...] Prasad, et al. 2017 Guidelines of the [place] Thyroid Association for the Diagnosis and Management of Thyroid Disease during and the . Thyroid, 2017:27:3:315-389. Performed By: #### 2 777-1, 99969-3, 38606-8, 3015-07 ####[facility]ATORYCLIA [id number] [place] [id number] [place] VITAMIN B1 (THIAMINE), WHOLE BLOODon 07-01-2024 Thiamine (Bld) [Moles/Vol] 144.8 nmol/L Normal 84.3-213.3 [facility] Comment on above: Order Comment: Nazanin pendleton Type: BLOOD SPECIMENOrdering Facility: [facility] Address: [address] [place], [place] [address] [address] Result Comment: This assay measures the concentration of thiamine diphosphate (TDP), the primary active form of vitamin B1. Approximately 90 percent of vitamin B1 present in whole blood is TDP. Thiamine and thiamine monophosphate, which comprise the remaining 10 percent, are not measured. This test was developed, and its performance characteristics determined by the [facility] Department of Pathology and Laboratory Medicine. It has not been cleared or approved by the FDA. The [facility] Department of Pathology and Laboratory Medicine is regulated under CLIA as qualified to perform high-complexity testing. This test is used for clinical purposes. It should not be regarded as investigational or for research. Performed By: #### B 1WB ####[facility] LABCLIA [id number] [facility] [id number] [place] [address] [place] VITAMIN B6/PYRIDOXINon 07-01 VITAMIN B6 20.0 nmol/L Normal 20.0-125.0 [facility] Comment on above: Order Comment: Speci helder Type: BLOOD SPECIMEN [facility]ing Facility: [facility] Address: [address] [place] [address] Result Comment: INTE RPRETIVE INFORMATION: Vitamin B6 (Pyridoxal 5-Phosphate) Pyridoxal 5'-phosphate measured in a specimen collected following an 8-hour or overnight fast accurately indicates vitamin B6 nutritional status. Non-fasting specimen concentration reflects recent vitamin intake. This test was developed and its performance characteristics determined by [facility]. It has not been cleared or approved by the US Food and Drug Administration. This test was performed in a CLIA certified laboratory and is intended for clinical purposes. Performed By: [facility] [address] [place] [address] Nuisance Wildlife Trapper: Alejandro Downs MD, PhD CLIA Number: [id number] Performed By: #### V ITB6 #### [facility]ITALIA [id number] [address] [place] [address] VITAMIN D 25 HYDROXYon 07-01 25-hydroxyvitamin D3 [Mass/Vol] 10.8 ng/mL Low 31.0 - 80.0 ng/mL [facility] Comment on above: Classification of 25 [place] Vitamin D status: Deficiency/Insufficiency: < or = 30 ng/ml. Sufficiency/Optimal Levels: 31-80 ng/mL Toxicity: > 100 ng/mL. Test performed by chemiluminescent immunoassay. VITAMIN Kannan 07-01-2024 VITAMIN K 0.22 nmol/L Normal 0.22-4.88 [facility] Comment on above: Order Comment: Specjesus alberto pendleton Type: BLOOD SPECIMENOrdering Facility: [facility] Address: [address] [place] [address] Result Comment: INTE RPRETIVE INFORMATION: Vitamin K1, Serum Vitamin K concentration is reported as nanomoles per liter (nmol/L). To convert concentration to nanograms per milliliter (ng/mL), multiply the result by 0.45. This test was developed and its performance characteristics determined by [facility]. It has not been cleared or approved by the US Food and Drug Administration. This test was performed in a CLIA certified laboratory and is intended for clinical purposes. Performed By: [facility] [employer] [address] [place] [address] Nuisance Wildlife Trapper: Alejandro Downs MD, PhD CLIA Number: [id number] Performed By: #### V ITK ####[facility] CENTERIA [id number] [place] [address] Vit A SerPl-ncon 5 Retinol [Mass/Vol] 0.07 mg/L Low 0.30-1.20 [facility] Comment on above: Order Comment: Nazanin pendleton Type: BLOOD SPECIMENOrdering Facility: [facility] Address: [address] [place] [address] Result Comment: Reti nol greater than 0.3 mg/L is typically associated with adequate liver stores in adults, and is within normal limits for children. Retinol less than 0.10 mg/L may indicate depleted liver stores and severe deficiency. Test performed at [facility] in [place], [place]. This test was developed and its performance characteristics determined by [facility]. It has not been cleared or approved by the [place] Food and Drug Administration. This test was performed in a CLIA certified laboratory and is intended for clinical purposes. Performed By: #### 2 923-1, 1823-4 ####[facility] LABCLIA [id number] [address] [address] [place] Vit B12 SerPl-mCncon 025 Cobalamin (Vitamin B12) [Mass/Vol] pg/mL Low 232-1245 [facility] Comment on above: Order Comment: Speci men Type: BLOOD SPECIMENOrdering Facility: [facility] Address: [address] [place] [address] Result Comment: Resu lt rechecked. Performed By: #### 2 284-8, 1988-5, 2276-4, 06554-8, 2132-9 ####[facility] LABCLIA [id number] [place] [address] [place] Zinc SerPl-mCncon 07-01-2024 Zinc [Mass/Vol] 72 ug/dL Normal 60-120 [facility] Comment on above: Order Comment: Speci men Type: BLOOD SPECIMENOrdering Facility: [facility] Address: [address] [place] [address] Result Comment: This test was developed, and its performance characteristics determined by the [facility] Department of Pathology and Laboratory Medicine. It has not been cleared or approved by the FDA. The [facility] Department of Pathology and Laboratory Medicine is regulated under CLIA as qualified to perform high-complexity testing. This test is used for clinical purposes. It should not be regarded as investigational or for research. Performed By: #### C ANNIE, 5763-8 ####[facility] LABCLIA [id number] [place] [address] [place] Chlamydia trachomatis rRNA d etection by probe and target amplification methodOrdered By: Francoise Brar on 08-28-2023 C. trachomatis rRNA DAVI+probe Ql (Unsp spec) Negative Negative [facility] Gram stain for investigation of transfusion reactionOrdered By: Francoise Brar on 08-28-2023 Microscopic observation Gram stain Nom (Unsp spec) [facility] Laboratory - Microbiology an d Antimicrobial susceptibilityOrdered By: Francoise Brar on 08-28-2023 N. gonorrhoeae DNA DAVI+probe Ql (Unsp spec) Negative Negative [facility] Comment on above: Performed at: =[address] [id number] Director: Mariana Wilkins MD, Phone: [phone] No Panel InformationOrdered By: Francoise Brar on 08-28-2023 Genital Culture G. vaginalis (Presumptive) [facility] No Panel Informationon 08-27 POC Bacterial Vaginitis (Rapid) Negative [facility] POC Trichomonas (Rapid) Negative [facility] Basic metabolic 2000 panelon 06-21-2023 Anion gap [Moles/Vol] 11 mmol/L 9 - 18 mmol/L [facility] Calcium [Mass/Vol] 9.8 mg/dL 8.5 - 10. 2 mg/dL [facility] Chloride [Moles/Vol] 102 mmol/L 97 - 10 5 mmol/L [facility] CO2 [Moles/Vol] 25 mmol/L 22 - 30 mmol/L [facility] Creatinine [Mass/Vol] 0.67 mg/dL 0.58 - 0.96 mg/dL [facility] Estimated Glomerular Filtration Rate 112 mL/min/1.73m >=60 mL/min/1.73m [facility] Glucose [Mass/Vol] 93 mg/dL 74 - 99 mg/dL [facility] Potassium [Moles/Vol] 3.8 mmol/L 3.7 - 5.1 mmol/L [facility] Sodium [Moles/Vol] 138 mmol/L 136 - 144 mmol/L [facility] Urea nitrogen [Mass/Vol] 10 mg/dL 7 - 21 mg/d L [facility] MAGNESIUM BLDon 06-21-2023 Magnesium [Mass/Vol] 1.4 mg/dL Low 1.7 - 2 .3 mg/dL [facility] PHOSPHORUS INORGANICon 06-21 Phosphate [Mass/Vol] 3.7 mg/dL 2.7 - 4 .8 mg/dL [facility] XR Hand - left PA and Latera l and Obliqueon 06-10-2023 IMPRESSION: No osseous abnormality. Forest Worker: PSCB Transcribe Date/Time: Jun 10 2023 6:28A Dictated by : WINSOME ORTEGA MD This examination was interpreted and the report reviewed and electronically signed by: WINSOME ORTEGA MD on Jun 10 2023 6:28AM [facility] * * *Final Report* * [...] normal. No erosions or significant degenerative change. [facility] Provider, [facility] [place] - 06/10/2023 * * *Final Report* * [...] degenerative change. IMPRESSION IMPRESSION: No osseous abnormality. Forest Worker: PSCB Transcribe Date/Time: Jun 10 2023 6:28A Dictated by : WINSOME ORTEGA MD This examination was interpreted and the report reviewed and electronically signed by: WINSOME ORTEGA MD on Jun 10 2023 6:28AM EST [facility] XR Hand - left PA and Latera l and ObliqueOrdered By: Cc Provider on 06-10-2023 [facility] CNOVon 06-08-2023 CNOV Office Visit ([facility]) NIURKA ZHU ([id number]) 1980 F Date Time Provider Department 06/08/23 8:45 AM YUNIOR SINCLAIR [facility] During your visit today, we recorded the following information about you: Temperature Pulse Respiration Blood pressure 98.2 degrees 58/minute 16/minute 107/77 Weight 67.6 kg Yunior Sinclair MD 06/08/2023 9:40 AM Signed Niurka Zhu is a 43 year [...] (HCC) S/P cholecystectomy SBO (small bowel obstruction) ([facility]) 05/25/2016 Short bowel syndrome ACTIVE PROBLEM LIST [...] meals. (Patient not taking: Reported on 08/07/2022) [address] mL 2 enoxaparin (LOVENOX) 100 mg/mL syrg [...] mL injections for 2 months. Administer at [facility] 3 mL 4 diphenoxylate-atropi ne (LOMOTIL) 2.5-0.025 [...] everyday user Substances: (more content not included)... [facility] XR HAND 3V PA/LAT/OBL LTon [...] significant degenerative change. IMPRESSION: No osseous abnormality. Forest Worker: TACOS Transcribe Date/Time: Jun 10 2023 6:28A Dictated by : WINSOME ORTEGA MD This examination was interpreted and the report reviewed and electronically signed by: WINSOME ORTEGA MD on Jun 10 2023 6:28AM EST [id number] CN [facility] XR Hand - left PA and Latera l and Obliqueon 06-08-2023 Radiology Study observation (narrative) [facility] Alpha tocopherol [Mass/Vol]o n 06-07-2023 Beta+gamma tocopherol [Mass/Vol] 0.5 mg/L 0.3 - 3.2 mg/L [facility] VITAMIN A/RETINOLon 06-07-19 Retinol [Mass/Vol] 0.16 mg/L Low 0.30 - 1. 20 mg/L [facility] VITAMIN B6/PYRIDOXINon 06-07 Pyridoxine [Mass/Vol] 42.6 nmol/L 20.0 - 125.0 nmol/L [facility] VITAMIN E/TOCOPHEROLon 06-07 Alpha tocopherol [Mass/Vol] 4.5 mg/L Low 6.0 - 23.0 mg/L [facility] METHYLMALONIC ACIDon 024 Methylmalonate [Moles/Vol] 5.48 umol/L High <=0.40 umol/L [facility] ZINC BLDon 06-05-2023 Zinc [Mass/Vol] 63 ug/dL 60 - 120 ug/dL [facility] CBC panel Auto (Bld)on 06-04 Erythrocyte distribution width (RBC) [Ratio] 12.9 % 11.5 - 15.0 % [facility] Hematocrit (Bld) [Volume fraction] 37.9 % 36.0 - 46.0 % [facility] Hemoglobin (Bld) [Mass/Vol] 12.3 g/dL 11.5 - 15.5 g/dL [facility] MCH (RBC) [Entitic mass] 30.4 pg 26.0 - 34.0 pg [facility] MCHC (RBC) [Mass/Vol] 32.5 g/dL 30.5 - 36.0 g/dL [facility] MCV (RBC) [Entitic vol] 93.8 fL 80.0 - 100.0 fL [facility] Nucleated RBC (Bld) [#/Vol] <0.01 k/uL [facility] Platelet mean volume (Bld) [Entitic vol] 10.8 fL 9.0 - 12.7 fL [facility] Platelets (Bld) [#/Vol] 150 10*3/uL 150 - 400 k /uL [facility] RBC (Bld) [#/Vol] 4.04 10*6/uL 3.90 - 5.2 0 m/uL [facility] WBC (Bld) [#/Vol] 6.02 10*3/uL 3.70 - 11. 00 k/uL [facility] Comprehensive metabolic 2000 panelon 06-04-2023 Albumin [Mass/Vol] 4.0 g/dL 3.9 - 4.9 g/dL [facility] [facility] ALP [Catalytic activity/Vol] 82 U/L 34 - 123 U/L [facility] ALT [Catalytic activity/Vol] 23 U/L 7 - 38 U/L [facility] Anion gap [Moles/Vol] 10 mmol/L 9 - 18 mmol/L [facility] AST [Catalytic activity/Vol] 25 U/L 13 - 35 U/L [facility] Bilirubin [Mass/Vol] 0.6 mg/dL 0.2 - 1 .3 mg/dL [facility] Calcium [Mass/Vol] 8.9 mg/dL 8.5 - 10. 2 mg/dL [facility] Chloride [Moles/Vol] 104 mmol/L 97 - 10 5 mmol/L [facility] CO2 [Moles/Vol] 26 mmol/L 22 - 30 mmol/L [facility] Creatinine [Mass/Vol] 0.73 mg/dL 0.58 - 0.96 mg/dL [facility] Estimated Glomerular Filtration Rate 105 mL/min/1.73m >=60 mL/min/1.73m [facility] Glucose [Mass/Vol] 89 mg/dL 74 - 99 mg/dL [facility] Potassium [Moles/Vol] 3.9 mmol/L 3.7 - 5.1 mmol/L [facility] Protein [Mass/Vol] 6.3 g/dL 6.3 - 8.0 g/dL Cl [facility] Sodium [Moles/Vol] 140 mmol/L 136 - 144 mmol/L [facility] Urea nitrogen [Mass/Vol] 12 mg/dL 7 - 21 mg/d L [facility] FERRITIN [facility] 06-04-2023 Ferritin [Mass/Vol] 71.4 ng/mL 14.7 - 2 05.1 ng/mL [facility] Iron and Iron binding capaci ty panelon 06-04-2023 Iron [Mass/Vol] 27 ug/dL Low 41 - 186 ug/dL [facility] Iron binding capacity [Mass/Vol] 316 ug/dL 232 - 386 ug/dL [facility] Iron/TIBC [Molar ratio] 8.5 % Low 15.0 - 57.0 % [facility] MAGNESIUM BLDon 06-04-2023 Magnesium [Mass/Vol] 1.2 mg/dL Low 1.7 - 2 .3 mg/dL [facility] PHOSPHORUS INORGANICon 06-04 Phosphate [Mass/Vol] 2.6 mg/dL Low 2.7 - 4 .8 mg/dL [facility] VITAMIN B12 BLOODon 06-04-19 Cobalamin (Vitamin B12) [Mass/Vol] Low 232 - 1,245 pg/mL [facility] VITAMIN D 25 HYDROXYon 06-04 25-hydroxyvitamin D3 [Mass/Vol] 20.4 ng/mL Low 31.0 - 80.0 ng/mL [facility] CBC W Auto Differential pane l (Bld)on 05-04-2023 Basophils (Bld) [#/Vol] 0.03 10*3/uL Normal <0.11 [facility] Comment on above: Order Comment: Speci men Type: BLOOD SPECIMEN Ordering Facility: [facility] Address: [address] [place] [address] Performed By: #### 5 7021-8 #### [facility] CLIA [id number] [address] [place] [address] [place] Basophils/100 WBC (Bld) 0.6 % Normal [facility] Comment on above: Order Comment: Speci men Type: BLOOD SPECIMEN Ordering Facility: [facility] Address: [address] [place] [address] Performed By: #### 5 7021-8 #### [facility] CLIA [id number] [address] [place] [address] [place] Differential cell count method Nom (Bld) Auto Normal [facility] Comment on above: Order Comment: Speci men Type: BLOOD SPECIMEN Ordering Facility: [facility] Address: [address] [place] [address] Performed By: #### 5 7021-8 #### [facility] CLIA [id number] [address] [place] [address] [place] Eosinophils (Bld) [#/Vol] 0.18 10*3/uL Normal <0.46 [facility] Comment on above: Order Comment: Speci men Type: BLOOD SPECIMEN Ordering Facility: [facility] Address: [address] [place] [address] Performed By: #### 5 7021-8 #### [facility] CLIA [id number] [address] [place] [address] [place] Eosinophils/100 WBC (Bld) 3.4 % Normal [facility] Comment on above: Order Comment: Speci men Type: BLOOD SPECIMEN Ordering Facility: [facility] Address: [address] [place] [address] Performed By: #### 5 7021-8 #### [facility] CLIA [id number] [address] [place] [address] [place] Erythrocyte distribution width (RBC) [Ratio] 13.8 % Normal 11.5-15.0 [facility] Comment on above: Order Comment: Speci men Type: BLOOD SPECIMEN Ordering Facility: [facility] Address: [address] [place] [address] Performed By: #### 5 7021-8 #### [facility] CLIA [id number] [address] [place] [address] [place] Hematocrit (Bld) [Volume fraction] 34.6 % Low 36.0-46.0 [facility] Comment on above: Order Comment: Speci men Type: BLOOD SPECIMEN Ordering Facility: [facility] Address: [address] [place] [address] Performed By: #### 5 7021-8 #### [facility] CLIA [id number] [address] [place] [address] [place] Hemoglobin (Bld) [Mass/Vol] 11.3 g/dL Low 11.5-15.5 [facility] Comment on above: Order Comment: Speci men Type: BLOOD SPECIMEN Ordering Facility: [facility] Address: [address] [place] [address] Performed By: #### 5 7021-8 #### [facility] CLIA [id number] [address] [place] [address] [place] Immature granulocytes (Bld) [#/Vol] 10*3/uL Normal <0.10 [facility] Comment on above: Order Comment: Speci men Type: BLOOD SPECIMEN Ordering Facility: [facility] Address: [address] [place] [address] Performed By: #### 5 7021-8 #### [facility] CLIA [id number] [address] [place] [address] [place] Immature granulocytes/100 WBC (Bld) 0.2 % Normal [facility] Comment on above: Order Comment: Speci men Type: BLOOD SPECIMEN Ordering Facility: [facility] Address: [address] [place] [address] Performed By: #### 5 7021-8 #### [facility] CLIA [id number] [address] [place] [address] [place] Lymphocytes (Bld) [#/Vol] 2.24 10*3/uL Normal 1.00-4.00 [facility] Comment on above: Order Comment: Speci men Type: BLOOD SPECIMEN Ordering Facility: [facility] Address: [address] [place] [address] Performed By: #### 5 7021-8 #### [facility] CLIA [id number] [address] [place] [address] [place] Lymphocytes/100 WBC (Bld) 42.4 % Normal [facility] Comment on above: Order Comment: Speci men Type: BLOOD SPECIMEN Ordering Facility: [facility] Address: [address] [place] [address] Performed By: #### 5 7021-8 #### [facility] CLIA [id number] [address] [place] [address] [place] MCH (RBC) [Entitic mass] 30.3 pg Normal 26.0-34.0 [facility] Comment on above: Order Comment: Speci men Type: BLOOD SPECIMEN Ordering Facility: [facility] Address: [address] [place] [address] Performed By: #### 5 7021-8 #### [facility] CLIA [id number] [address] [place] [address] [place] MCHC (RBC) [Mass/Vol] 32.7 g/dL Normal 30.5-36.0 [facility] Comment on above: Order Comment: Speci men Type: BLOOD SPECIMEN Ordering Facility: [facility] Address: [address] [place], [place] [address] [address] Performed By: #### 5 7021-8 #### [facility] CLIA [id number] [address] [place] [address] [place] MCV (RBC) [Entitic vol] 92.8 fL Normal 80.0-100.0 [facility] Comment on above: Order Comment: Speci men Type: BLOOD SPECIMEN Ordering Facility: [facility] Address: [address] [place] [address] Performed By: #### 5 7021-8 #### [facility] CLIA [id number] [address] [place] [address] [place] Monocytes (Bld) [#/Vol] 0.36 10*3/uL Normal <0.87 [facility] Comment on above: Order Comment: Speci men Type: BLOOD SPECIMEN Ordering Facility: [facility] Address: [address] [place] [address] Performed By: #### 5 7021-8 #### [facility] CLIA [id number] [address] [place] [address] [place] Monocytes/100 WBC (Bld) 6.8 % Normal [facility] Comment on above: Order Comment: Speci men Type: BLOOD SPECIMEN Ordering Facility: [facility] Address: [address] [facility] [place] [address] Performed By: #### 5 7021-8 #### [facility] CLIA [id number] [address] [place] [address] [place] Neutrophils (Bld) [#/Vol] 2.46 10*3/uL Normal 1.45-7.50 [facility] Comment on above: Order Comment: Speci men Type: BLOOD SPECIMEN Ordering Facility: [facility] Address: [address] [facility] [place] [address] Performed By: #### 5 7021-8 #### [facility] CLIA [id number] [address] [place] [address] [place] Neutrophils/100 WBC (Bld) 46.6 % Normal [facility] Comment on above: Order Comment: Speci men Type: BLOOD SPECIMEN Ordering Facility: [facility] Address: [address] [place] [address] Performed By: #### 5 7021-8 #### [facility] CLIA [id number] [address] [place] [address] [place] Nucleated RBC (Bld) [#/Vol] 10*3/uL Normal <0.01 [facility] Comment on above: Order Comment: Speci men Type: BLOOD SPECIMEN Ordering Facility: [facility] Address: [address] [place] [address] Performed By: #### 5 7021-8 #### [facility] CLIA [id number] [address] [place] [address] [place] Nucleated RBC/100 WBC (Bld) [Ratio] 0.0 /100 WBC Normal [facility] Comment on above: Order Comment: Speci men Type: BLOOD SPECIMEN Ordering Facility: [facility] Address: [address] [place] [address] Performed By: #### 5 7021-8 #### [facility] CLIA [id number] [address] [place] [address] [place] Platelet mean volume (Bld) [Entitic vol] 10.2 fL Normal 9.0-12.7 [facility] Comment on above: Order Comment: Speci men Type: BLOOD SPECIMEN Ordering Facility: [facility] Address: [address] [place] [address] Performed By: #### 5 7021-8 #### [facility] CLIA [id number] [address] [place] [address] [place] Platelets (Bld) [#/Vol] 152 10*3/uL Normal 150-400 [facility] Comment on above: Order Comment: Speci men Type: BLOOD SPECIMEN Ordering Facility: [facility] Address: [address] [place] [address] Performed By: #### 5 7021-8 #### [facility] CLIA [id number] [address] [place] [address] [place] RBC (Bld) [#/Vol] 3.73 10*6/uL Low 3.90-5.20 [facility] Comment on above: Order Comment: Speci men Type: BLOOD SPECIMEN Ordering Facility: [facility] Address: [place] [id number] Performed By: #### 5 7021-8 #### [facility] CLIA [id number] [address] [place] [address] WBC (Bld) [#/Vol] 5.28 10*3/uL Normal 3.70-11.00 [facility] Comment on above: Order Comment: Speci men Type: BLOOD SPECIMEN Ordering Facility: [facility] Address: [place] [id number] Performed By: #### 5 7021-8 #### [facility] CLIA [id number] [address] [place], [place] [address] [facility] CT ABD/PEL W IVCONon 023 CT ABD/PEL W IVCON * * *Final Report* * * DATE OF EXAM: May 04 2023 6:49AM [facility] 0530 - CT ABD/PEL W IVCON / [...] Tissues: No significant finding. Lower thorax: Unremarkable. Lubricating Specialist (topogram) images: No additional findings. IMPRESSION: Diffuse colonic dilation and dilation of the small bowel at the surgical anastomosis. Forest Worker: PSCB Transcribe Date/Time: May 04 2023 6:52A Dictated by : KOTA OROZCO MD This examination was interpreted and the report reviewed and electronically signed by: KOTA OROZCO MD on May 04 2023 6:58AM EST [id number] CN Normal [facility] Comprehensive metabolic 2000 panelon 05-04-2023 Albumin [Mass/Vol] 3.1 g/dL Low 3.2-5.0 [facility] Comment on above: Order Comment: Speci men Type: BLOOD SPECIMEN Ordering Facility: [facility] Address: [address] [place] [address] Performed By: #### 2 4323-8 #### [facility] CLIA [id number] [address] [place] [place] [address] [place] ALP [Catalytic activity/Vol] 60 U/L Normal 45-117 [facility] Comment on above: Order Comment: Speci men Type: BLOOD SPECIMEN Ordering Facility: [facility] Address: [address] [place] [address] Performed By: #### 2 4323-8 #### [facility] CLIA [id number] [address] [place] [address] [place] ALT [Catalytic activity/Vol] 20 U/L Normal 13-61 [facility] Comment on above: Order Comment: Speci men Type: BLOOD SPECIMEN Ordering Facility: [facility] Address: [address] [place] [address] Result Comment: Resu lts may be falsely depressed after the administration of Sulfasalazine and/or Sulfapyridine. Performed By: #### 2 4323-8 #### [facility] CLIA [id number] [address] [place] [address] [place] Anion gap [Moles/Vol] 4 mmol/L Low 5-16 [facility] Comment on above: Order Comment: Speci men Type: BLOOD SPECIMEN Ordering Facility: [facility] Address: [address] [place] [address] Performed By: #### 2 4323-8 #### [facility] CLIA [id number] [address] [place] [address] [place] AST [Catalytic activity/Vol] 18 U/L Normal 8-34 [facility] Comment on above: Order Comment: Speci men Type: BLOOD SPECIMEN Ordering Facility: [facility] Address: [address] [place] [address] Result Comment: Resu lts may be falsely depressed after the administration of Sulfasalazine and/or Sulfapyridine. Performed By: #### 2 4323-8 #### [facility] CLIA [id number] [address] [place] [address] [place] Bilirubin [Mass/Vol] 0.7 mg/dL Normal 0.2-1.0 [facility] Comment on above: Order Comment: Speci men Type: BLOOD SPECIMEN Ordering Facility: [facility] Address: [address] [place] [address] Performed By: #### 2 4323-8 #### [facility] CLIA [id number] [address] [place] [address] [place] Calcium [Mass/Vol] 8.4 mg/dL Low 8.5-10.5 [facility] Comment on above: Order Comment: Speci men Type: BLOOD SPECIMEN Ordering Facility: [facility] Address: [address] [place] [address] Performed By: #### 2 4323-8 #### [facility] CLIA [id number] [address] [place] [address] [place] Chloride [Moles/Vol] 108 mmol/L High 98-107 [facility] Comment on above: Order Comment: Speci men Type: BLOOD SPECIMEN Ordering Facility: [facility] Address: [address] [place] [address] Performed By: #### 2 4323-8 #### [facility] CLIA [id number] [address] [place] [address] CO2 [Moles/Vol] 31 mmol/L Normal 21-32 [facility] Comment on above: Order Comment: Speci men Type: BLOOD SPECIMEN Ordering Facility: [facility] Address: [address] [place] [address] Performed By: #### 2 4323-8 #### [facility] CLIA [id number] [address] [place] [address] Creatinine [Mass/Vol] 0.68 mg/dL Normal 0.51-0.95 [facility] Comment on above: Order Comment: Speci men Type: BLOOD SPECIMEN Ordering Facility: [facility] Address: [address] [place] [address] Result Comment: Gissel ents receiving either N-Acetylcysteine (NAC) or Metamizole prior to venipuncture, may have falsely depressed results. Performed By: #### 2 4323-8 #### [facility] CLIA [id number] [address] [place] [address] Creatinine and Glomerular filtration rate.predicted panel (S/P/Bld) 112 mL/min/1.73m??? Normal >=60 [facility] Comment on above: Order Comment: Speci men Type: BLOOD SPECIMEN Ordering Facility: [facility] Address: [address] [place] [address] Result Comment: Eve mated Glomerular Filtration Rate [...] GFR. Performed By: #### 2 4323-8 #### [facility] CLIA [id number] [address] [place] [address] [place] Glucose [Mass/Vol] 87 mg/dL Normal 70-100 [facility] Comment on above: Order Comment: Nazanin pendleton Type: BLOOD SPECIMEN Ordering Facility: [facility] Address: [address] [place] [address] Result Comment: The [place] [employer] (ADA) provides guidance for cutoff [...] Standards of Medical Care in Diabetes 2016, [place] [employer]. Diabetes Care. 2016.39(Suppl 1). Results may be falsely elevated after the administration of Sulfapyridine. Results may be falsely depressed after the administration of Sulfasalazine. Performed By: #### 2 4323-8 #### [facility] CLIA [id number] [address] [place] [address] [place] Potassium [Moles/Vol] 3.4 mmol/L Low 3.5-5.1 [facility] Comment on above: Order Comment: Nazanin pendleton Type: BLOOD SPECIMEN Ordering Facility: [facility] Address: [address] [place] [address] Performed By: #### 2 4323-8 #### [facility] CLIA [id number] [address] [place] [address] [place] Protein [Mass/Vol] 5.9 g/dL Low 6.0-8.5 [facility] Comment on above: Order Comment: Nazanin pendleton Type: BLOOD SPECIMEN Ordering Facility: [facility] Address: [address] [place] [address] Performed By: #### 2 4323-8 #### [facility] CLIA [id number] [address] [place] [address] [place] Sodium [Moles/Vol] 143 mmol/L Normal 136-145 [facility] Comment on above: Order Comment: Speci men Type: BLOOD SPECIMEN Ordering Facility: [facility] Address: [address] [place] [address] Performed By: #### 2 4323-8 #### [facility] CLIA [id number] [address] [place], [place] [address] [place] Urea nitrogen [Mass/Vol] 16 mg/dL Normal 7-26 [facility] Comment on above: Order Comment: Speci men Type: BLOOD SPECIMEN Ordering Facility: [facility] Address: [address] [place] [address] Performed By: #### 2 4323-8 #### [facility] CLIA [id number] [address] [place], [place] [address] [facility] ED NOTEon 05-04-2023 ED NOTE HNO ID: [id number] Author: Didier Chiu RN Service: Nursing Author Type: Registered Nurse Type: [...] short-gut syndrome. Has had her gallbladder removed. Normal [facility] ED PROV NOTEon 05-04-2023 ED PROV NOTE HNO ID: [id number] Author: Anitha Pena MD Service: Emergency Medicine [...] fevers and chills. 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 Esther (more content not included)... Normal [facility] HCG Preg Ur Qlon 05-04-2023 HCG ( test) Ql (U) Negative Normal Negative [facility] Comment on above: Order Comment: Speci men Type: URINE SPECIMEN Ordering Facility: [facility] Address: [address] [place] [address] Result Comment: This test is intended to aid in the early detection of . Very dilute urine samples, as indicated by a low specific gravity, may not contain customer service representative teller levels of hCG. This test detects intact [...] . Performed By: #### 2 106-3 #### [facility] CLIA [id number] [address] [place] [address] [place] Urinalysis complete panel (U )on 05-04-2023 Bacteria LM.HPF (Urine sed) [#/Area] Few Abnormal None Seen [facility] Comment on above: Order Comment: Speci men Type: URINE SPECIMEN Ordering Facility: [facility] Address: [address] [place] [address] Performed By: #### 2 4356-8 #### [facility] CLIA [id number] [address] [place] [address] STATES [facility] Bilirubin Ql (U) Negative Normal Negative [facility] Comment on above: Order Comment: Speci men Type: URINE SPECIMEN Ordering Facility: [facility] Address: [address] [place] [address] Performed By: #### 2 4356-8 #### [facility] CLIA [id number] [address] [place] [address] [place] Clarity (Unsp spec) Clear Normal Clear [facility] Comment on above: Order Comment: Speci men Type: URINE SPECIMEN Ordering Facility: [facility] Address: [address] [place] [address] Performed By: #### 2 4356-8 #### [facility] CLIA [id number] [address] [place] [address] [place] Color (U) Yellow Normal Yellow [facility] Comment on above: Order Comment: Speci men Type: URINE SPECIMEN Ordering Facility: [facility] Address: [address] [place] [address] Performed By: #### 2 4356-8 #### [facility] CLIA [id number] [address] [place] [address] [place] Epithelial cells LM.HPF (Urine sed) [#/Area] Few Normal [facility] Comment on above: Order Comment: Speci men Type: URINE SPECIMEN Ordering Facility: [facility] Address: [address] [place] [address] Performed By: #### 2 4356-8 #### [facility] CLIA [id number] [address] [place] [address] Glucose Test strip (U) [Mass/Vol] Negative Normal Negative [facility] Comment on above: Order Comment: Speci men Type: URINE SPECIMEN Ordering Facility: [facility] Address: [address] [place] [address] Performed By: #### 2 4356-8 #### [facility] CLIA [id number] [address] [place] [address] [place] Hemoglobin Ql (U) 3+ Abnormal Negative [facility] Comment on above: Order Comment: Speci men Type: URINE SPECIMEN Ordering Facility: [facility] Address: [address] [place] [address] Performed By: #### 2 4356-8 #### [facility] CLIA [id number] [address] [place] [address] [place] Ketones Ql (U) Trace Abnormal Negative [facility] Comment on above: Order Comment: Speci men Type: URINE SPECIMEN Ordering Facility: [facility] Address: [address] [place] [address] Performed By: #### 2 4356-8 #### [facility] CLIA [id number] [address] [place] [address] [place] Leukocyte esterase Test strip Ql (U) Trace Abnormal Negative [facility] Comment on above: Order Comment: Speci men Type: URINE SPECIMEN Ordering Facility: [facility] Address: [address] [place] [address] Performed By: #### 2 4356-8 #### [facility] CLIA [id number] [address] [place] [address] [place] Nitrite Ql (U) Positive Abnormal Negative [facility] Comment on above: Order Comment: Speci men Type: URINE SPECIMEN Ordering Facility: [facility] Address: [address] [place] [address] Performed By: #### 2 4356-8 #### [facility] CLIA [id number] [address] [place] [address] [place] pH (U) 6.0 [pH] Normal 5.0-8.0 [facility] Comment on above: Order Comment: Speci men Type: URINE SPECIMEN Ordering Facility: [facility] Address: [address] [place] [address] Performed By: #### 2 4356-8 #### [facility] CLIA [id number] [address] [place] [address] [place] Protein (U) [Mass/Vol] Negative Normal Negative [facility] Comment on above: Order Comment: Speci men Type: URINE SPECIMEN Ordering Facility: [facility] Address: [address] [place] [address] Performed By: #### 2 4356-8 #### [facility] CLIA [id number] [address] [place] [address] [place] RBC LM.HPF (Urine sed) [#/Area] 3-5 /HPF Abnormal 0-3 /HPF [facility] Comment on above: Order Comment: Speci men Type: URINE SPECIMEN Ordering Facility: [facility] Address: [address] [place] [address] Performed By: #### 2 4356-8 #### [facility] CLIA [id number] [address] [place] [address] [place] Specific gravity (U) [Rel density] 1.020 Normal 1.005-1.030 [facility] Comment on above: Order Comment: Speci men Type: URINE SPECIMEN Ordering Facility: [facility] Address: [address] [place] [address] Performed By: #### 2 4356-8 #### [facility] CLIA [id number] [address] [place] [address] Urobilinogen Ql (U) Negative Normal Negative [facility] Comment on above: Order Comment: Speci men Type: URINE SPECIMEN Ordering Facility: [facility] Address: [address] [place] [address] Performed By: #### 2 4356-8 #### [facility] CLIA [id number] [address] [place] [address] [place] WBC LM.HPF (Urine sed) [#/Area] 6-10 /HPF Abnormal 0-5 /HPF [facility] Comment on above: Order Comment: Speci men Type: URINE SPECIMEN Ordering Facility: [facility] Address: [address] [place] [address] Performed By: #### 2 4356-8 #### [facility] CLIA [id number] [address] [place] [address] OF [place]ERYL CNPJacinda 04-08-2023 CNPN Telephone ([facility]) NIURKA ZHU ([id number]) 1980 F Date Time Provider Department 04/08/23 ANTONINO SNYDER [facility] During your visit today, we recorded the following information about you: Axel Palmer LPN 04/08/2023 10:03 AM Signed ----- Message from Antonino Snyder MD sent at 04/08/2023 7:45 AM EST ----- Please inform patient test was positive for COVID-19 negative for influenza and RSV. Patient needs to quarantine. Follow-up as needed. Axle PalmerBRI 04/08/2023 10:05 AM Signed Called patient, no answer, left message to call back. Axel SaucedontyreBRI Axel PalmerBRI 04/14/2023 1:17 PM Signed Called patient, no answer,unable to leave message to call back. Unable to reach letter sent. Axel BRI Palmer Allergies As of Date: 04/08/2023 Noted Allergy [...] mL injections for 2 months. Administer at [facility] - diphenoxylate-atropi ne (LOMOTIL) 2.5-0.025 mg per [...] specified site [R10.9] 01/01/2014 Myalgia and myositis [TGH1343] 01/01/2014 Chest pain [R07.9] 01/11/2014 10/23/2016 ASA [...] Encounter Status:Closed by AXEL PALMER on 04/14/23 [facility] CNOVon 04-07-2023 CNOV Office Visit (UCMNCA) NIURKA ZHU ([id number]) 1980 F Date Time Provider Department 04/07/23 1:40 PM ANTONINO SNYDER [facility] During your visit today, we recorded the [...] pain 01/11/2014 Depression DVT (deep venous thrombosis) ([facility]) July 2013 Hypertension, essential 01/13/2018 Low blood magnesium 03/02/2016 Protein C deficiency (HCC) Protein S deficiency (HCC) S/P cholecystectomy SBO (small bowel obstruction) ([facility]) 05/25/2016 Short bowel syndrome ACTIVE PROBLEM LIST [...] meals. (Patient not taking: Reported on 08/07/2022) 26007 mL 2 enoxaparin (LOVENOX) 100 mg/mL syrg [...] mL injections for 2 months. Administer at [facility] 3 mL 4 diphenoxylate-atropi ne (LOMOTIL) [...] use: N (more content not included)... Normal [facility] FLUABV+SARS-CoV-2+RSV Pnl Re sp DAVI+probeon 04-07-2023 FLUABV+SARS-CoV-2+RSV Pnl Resp DAVI+probe COVID 19 RESULT: Detected The method used is RT-PCR or an equivalent NAAT method. Reference Range(the expected result in uninfected individuals): Not detected INFLUENZA A PCR: Not detected INFLUENZA B PCR: Not detected RSV PCR: Not detected Abnormal [facility] Comment on above: Performed By: #### 9 5941-1 #### [facility] CLIA [id number] [address] [place] [address] [place] CBC W Auto Differential pane l (Bld)Ordered By: Joycelyn Yadav on 03-19-2023 Basophils (Bld) [#/Vol] 0.0 10*3/uL 0.0 - 0.2 10*3/uL [facility] Basophils/100 WBC (Bld) 0.6 % 0.0 - 2.0 % [facility] [employer] Eosinophils (Bld) [#/Vol] 0.1 10*3/uL 0.0 - 0.5 10*3/uL [facility] Eosinophils/100 WBC (Bld) 1.7 % 1.0 - 6.0 % [facility] [employer] Erythrocyte distribution width (RBC) [Ratio] 13.6 % 11.5 - 14.5 % [facility] [employer] Hematocrit (Bld) [Volume fraction] 36.7 % 35.0 - 47.0 % [facility] [employer] Hemoglobin (Bld) [Mass/Vol] 11.9 g/dL 11.7 - 16.0 g/dL [facility] [employer] Immature granulocytes (Bld) [#/Vol] 0.0 10*3/uL NINF - 0.0 10*3/uL [facility] Immature granulocytes/100 WBC (Bld) 0.3 % High NINF - 0.0 % [facility] [employer] Interpretation and review of laboratory results Abnormal [facility] Lymphocytes (Bld) [#/Vol] 1.8 10*3/uL 1.0 - 4.3 10*3/uL [facility] Lymphocytes/100 WBC (Bld) 27.5 % 20.0 - 40.0 % [facility] [employer] MCH (RBC) [Entitic mass] 31.1 pg 26.0 - 34.0 pg [facility] [employer] MCHC (RBC) [Mass/Vol] 32.4 % 32.0 - 36.0 % [facility] [employer] MCV (RBC) [Entitic vol] 95.8 fL 80.0 - 98.0 fL [facility] Monocytes (Bld) [#/Vol] 0.4 10*3/uL 0.0 - 0.8 10*3/uL [facility] Monocytes/100 WBC (Bld) 5.8 % 2.0 - 10.0 % [facility] Neutrophils (Bld) [#/Vol] 4.1 10*3/uL 1.8 - 7.0 10*3/uL [facility] Neutrophils/100 WBC (Bld) 64.1 % 40.0 - 80.0 % [facility] Platelet mean volume (Bld) [Entitic vol] 9.4 fL 7.4 - 12.4 fL [facility] Comment on above: MPV is a calculated measurement using platelet volume ratio Platelets (Bld) [#/Vol] 170 10*3/uL 140 - 440 10*3/uL [facility] RBC (Bld) [#/Vol] 3.83 10*6/uL 3.8 - 5.20 10*6/uL [facility] WBC (Bld) [#/Vol] 6.4 10*3/uL 3.6 - 10.7 10*3/uL [facility] CBC WITH AUTO DIFFERENTIALon 03-19-2023 Basophils (Bld) [#/Vol] 0.0 10*3/uL Normal 0.0-0.2 [facility] Comment on above: Performed By: #### L [id number] #### Osha Inspector: SAIALJA MEHTA ([id number]) [facility] [place] [employer] ([facility]) [address] [place] [address] [place] Basophils/100 WBC (Bld) 0.6 % Normal 0.0-2.[address] [facility] Comment on above: Performed By: #### L [id number] #### Osha Inspector: SAILAJA MEHTA ([id number]) [facility] [employer] ([employer]) [address] [place] [address] Eosinophils (Bld) [#/Vol] 0.1 10*3/uL Normal 0.0-0.5 [facility] Comment on above: Performed By: #### L [id number] #### Osha Inspector: SAILAJA MEHTA ([id number]) [facility] [place] (SW[place]) [address] [place] [address] [place] Eosinophils/100 WBC (Bld) 1.7 % Normal 1.0-6.0 [facility] Comment on above: Performed By: #### L [id number] #### Osha Inspector: SAILAJA MEHTA ([id number]) [facility] [place] ([facility]) [address] [place] [address] Erythrocyte distribution width (RBC) [Ratio] 13.6 % Normal 11.5-14.5 [facility] Comment on above: Performed By: #### L [id number] #### Osha Inspector: SAILAJA MEHTA ([id number]) [facility] [place] ([place]) [address] [place] [address] ERYTHROCYTE MEAN CORPUSCULAR HEMOGLOBIN CONCENTRATION (G/DL) BY AUTOMATED 32.4 % Normal 32.0-36.0 [facility] Comment on above: Performed By: #### L [id number] #### Osha Inspector: SAILAJA MEHTA ([id number]) [facility] [place] ([place]) [address] [place] [address] Hematocrit (Bld) [Volume fraction] 36.7 % Normal 35.0-47.0 [facility] Comment on above: Performed By: #### L [id number] #### Osha Inspector: SAILAJA MEHTA ([id number]) [facility] [place] ([place]) [address] [place] [address] Hemoglobin (Bld) [Mass/Vol] 11.9 g/dL Normal 11.7-16.0 [facility] Comment on above: Performed By: #### L [id number] #### Osha Inspector: SAILAJA MEHTA ([id number]) [facility] [place] ([place]) [address] [place] [address] IMMATURE GRANS (10*3/UL) IN BLOOD BY AUTOMATED COUNT 0.0 10*3/uL Normal <=0.0 [facility] Comment on above: Performed By: #### L [id number] #### Osha Inspector: SAILAJA MEHTA ([id number]) [facility] [place] ([place]) [address] [place] [address] IMMATURE GRANS/100 LEUKOCYTES IN BLOOD BY AUTOMATED COUNT 0.3 % High <=0.0 [facility] Comment on above: Performed By: #### L [id number] #### Osha Inspector: SAILAJA MEHTA ([id number]) [facility] [place] ([place]) [address] [place] [address] Lymphocytes (Bld) [#/Vol] 1.8 10*3/uL Normal 1.0-4.3 [facility] Comment on above: Performed By: #### L [id number] #### Osha Inspector: SAILAJA MEHTA ([id number]) [facility] [place] ([place]) [address] [place] [address] Lymphocytes/100 WBC (Bld) 27.5 % Normal 20.0-40.0 [facility] Comment on above: Performed By: #### L [id number] #### Osha Inspector: SAILAJA MEHTA ([id number]) [facility] [place] ([place]) [address] [place] [address] MCH (RBC) [Entitic mass] 31.1 pg Normal 26.0-34.0 [facility] Comment on above: Performed By: #### L [id number] #### Osha Inspector: SAILAJA MEHTA ([id number]) [facility] [place] ([place]) [address] [place] [address] MCV (RBC) [Entitic vol] 95.8 fL Normal 80.0-98.[address] [facility] Comment on above: Performed By: #### L [id number] #### Osha Inspector: SAILAJA MEHTA ([id number]) [facility] [place] ([facility]) [address] [place] [address] [place] Monocytes (Bld) [#/Vol] 0.4 10*3/uL Normal 0.0-0.8 [facility] Comment on above: Performed By: #### L [id number] #### Osha Inspector: SAILAJA MEHTA ([id number]) [facility] [place] ([facility]) [address] [place] [address] [place] Monocytes/100 WBC (Bld) 5.8 % Normal 2.0-10.0 [facility] Comment on above: Performed By: #### L [id number] #### Osha Inspector: SAILAJA MEHTA ([id number]) [facility] [place] ([place]) [address] [place] [address] [place] Neutrophils (Bld) [#/Vol] 4.1 10*3/uL Normal 1.8-7.0 [facility] Comment on above: Performed By: #### L [id number] #### Osha Inspector: SAILAJA MEHTA ([id number]) [facility] [place] ([place]) [address] [place] [address] [place] Neutrophils/100 WBC (Bld) 64.1 % Normal 40.0-80.0 [facility] Comment on above: Performed By: #### L [id number] #### Osha Inspector: SAILAJA MEHTA ([id number]) [facility] [place] ([facility]) [address] [place] [address] Platelet mean volume (Bld) [Entitic vol] 9.4 fL Normal 7.4-12.4 [facility] Comment on above: Result Comment: MPV is a calculated measurement using platelet volume ratio Performed By: #### L [id number] #### Osha Inspector: SAILAJA MEHTA ([id number]) [facility] [place] ([facility]) [address] [place] [address] [place] Platelets (Bld) [#/Vol] 170 10*3/uL Normal 140-440 [facility] Comment on above: Performed By: #### L [id number] #### Osha Inspector: SAILAJA MEHTA ([id number]) [facility] [employer] ([facility]) [address] [place] [address] RBC (Bld) [#/Vol] 3.83 10*6/uL Normal 3.8-5.20 [facility] Comment on above: Performed By: #### L [id number] #### Osha Inspector: SAILAJA MEHTA ([id number]) [facility] [employer] ([employer]) [address] [place] [address] WBC (Bld) [#/Vol] 6.4 10*3/uL Normal 3.6-10.7 [facility] Comment on above: Performed By: #### L [id number] #### Osha Inspector: SAILAJA MEHTA ([id number]) [facility] [employer] ([facility]) [address] [place] [address] COMPLETE URINALYSISon 2022 BACTERIA (#/HPF) IN URINE Moderate Abnormal Negative [facility] Comment on above: Performed By: #### L [id number] #### Osha Inspector: SAILAJA MEHTA ([id number]) [facility] [place] ([facility]) [address] [place] [address] BILIRUBIN, TOTAL PRESENCE IN URINE Negative Normal Negative [facility] Comment on above: Performed By: #### L [id number] #### Osha Inspector: SAILAJA MEHTA ([id number]) [facility] [place] ([facility]) [address] [place] [address] Clarity (U) Clear Normal Clear [facility] Comment on above: Performed By: #### L [id number] #### Osha Inspector: SAILAJA MEHTA ([id number]) [facility] [employer] ([place]) [address] [place] [address] Color (U) Light Yellow Normal Lt. Yellow [facility] Comment on above: Performed By: #### L [id number] #### Osha Inspector: SAILAJA MEHTA ([id number]) [facility]USA [place] (SWRL[facility]) [address] [place] [address] [place] GLUCOSE (MG/DL) IN URINE Normal Normal Normal (<70 ) [facility] Comment on above: Performed By: #### L [id number] #### Osha Inspector: SAILAJA MEHTA ([id number]) [facility] [place] ([place]) [address] [place] [address] [place] HEMOGLOBIN PRESENCE IN URINE Negative Normal Negative [facility] Comment on above: Performed By: #### L [id number] #### Osha Inspector: SAILAJA MEHTA ([id number]) [facility] [place] ([place]) [address] [place] [address] [place] Ketones Ql (U) Negative Normal Negative [facility] Comment on above: Performed By: #### L [id number] #### Osha Inspector: SAILAJA MEHTA ([id number]) [facility] [place] ([employer]) [address] [place] [address] [place] LEUKOCYTE ESTERASE PRESENCE IN URINE BY TEST STRIP Negative Normal Negative [facility] Comment on above: Performed By: #### L [id number] #### Osha Inspector: SAILAJA MEHTA ([id number]) [facility]US[facility] ADAMSNOLBERTO [employer] (SWRL[employer]) [address] [place] [address] [place] MUCUS (#/LPF) IN URINE SEDIMENT Few Normal Negative [facility] Comment on above: Performed By: #### L [id number] #### Osha Inspector: SAILAJA MEHTA ([id number]) [facility] [place] ([facility]) [address] [place] [address] [place] NITRITE PRESENCE IN URINE Positive Abnormal Negative [facility] Comment on above: Performed By: #### L [id number] #### Osha Inspector: SAILAJA MEHTA ([id number]) [facility] ([place]) [address] [place] [address] [place] pH (U) 5.0 [pH] Normal 5.0-8.0 [facility] Comment on above: Performed By: #### L [id number] #### Osha Inspector: SAILAJA MEHTA ([id number]) [facility] [place] ([employer]) [address] [place] [address] Protein (U) [Mass/Vol] Negative Normal Negative [facility] Comment on above: Performed By: #### L [id number] #### Osha Inspector: SAILAJA MEHTA ([id number]) [facility] [place] ([place]) [address] [place] [address] [place] RBC (#/HPF) IN URINE SEDIMENT 0-2 Normal 0-2 [facility] Comment on above: Performed By: #### L [id number] #### Osha Inspector: SAILAJA MEHTA ([id number]) [facility] [place] ([employer]) [address] [place] [address] Specific gravity (U) [Rel density] 1.015 Normal 1.005-1.030 [facility] Comment on above: Performed By: #### L [id number] #### Osha Inspector: SAILAJA MEHTA ([id number]) [facility] [employer] ([employer]) [address] [place] [address] Specimen volume (U) 12 mL Normal [facility] Comment on above: Performed By: #### L [id number] #### Osha Inspector: SAILAJA MEHTA ([id number]) [facility] [place] ([facility]) [address] [place] [address] SQUAMOUS EPITHELIAL CELLS (#/HPF) IN URINE SEDIMENT 6-10 Abnormal 3-5 [facility] Comment on above: Performed By: #### L [id number] #### Osha Inspector: SAILAJA MEHTA ([id number]) [facility] [employer] ([employer]) [address] [place] [address] UROBILINOGEN (MG/DL) IN URINE Normal Normal Normal (0-1) [facility] Comment on above: Performed By: #### L [id number] #### Osha Inspector: SAILAJA MEHTA ([id number]) [facility] [place] ([place]) [address] WBC (LEUKOCYTE) (#/HPF) IN URINE SEDIMENT 0-2 Normal 0-5 [facility] Comment on above: Performed By: #### L [id number] #### Osha Inspector: SAILAJA MEHTA ([id number]) [facility] [employer] ([employer]) [address] [place] [address] COMPREHENSIVE METABOLIC PANE Andrew 03-19-2023 Albumin [Mass/Vol] 3.7 g/dL Normal 3.5-5.0 [facility] Comment on above: Performed By: #### L [id number] #### Osha Inspector: SAILAJA MEHTA ([id number]) [facility] [employer] ([employer]) [address] [place] [address] [place] ALP [Catalytic activity/Vol] 44 U/L Normal 38-126 [facility] Comment on above: Performed By: #### L [id number] #### Osha Inspector: SAILAJA MEHTA ([id number]) [facility] [employer] ([employer]) [address] [place] [address] ALT [Catalytic activity/Vol] 25 U/L Normal 0-34 [facility] Comment on above: Performed By: #### L [id number] #### Osha Inspector: SAILAJA MEHTA ([id number]) [facility] [employer] ([employer]) [address] Anion gap [Moles/Vol] 9 mmol/L Normal 3-13 [facility] Comment on above: Performed By: #### L [id number] #### Osha Inspector: SAILAJA MEHTA ([id number]) [facility] [employer] ([employer]) [address] [place] [address] AST [Catalytic activity/Vol] 25 U/L Normal 15-46 [facility] Comment on above: Performed By: #### L [id number] #### Osha Inspector: SAILAJA MEHAT ([id number]) [facility] [employer] ([employer]) [address] Bilirubin [Mass/Vol] 0.6 mg/dL Normal 0.2-1.3 [facility] Comment on above: Performed By: #### L [id number] #### Osha Inspector: SAILAJA MEHTA ([id number]) [facility] [employer] ([employer]) [address] [place] [address] Calcium [Mass/Vol] 8.7 mg/dL Normal 8.4-10.4 [facility] Comment on above: Performed By: #### L [id number] #### Osha Inspector: SAILAJA MEHTA ([id number]) [facility]US[facility]es [facility] [employer] (SW[employer]) [address] [place] [address] Chloride [Moles/Vol] 105 mmol/L Normal 98-107 [facility] Comment on above: Performed By: #### L [id number] #### Osha Inspector: SAILAJA MEHTA ([id number]) [facility] [employer] ([employer]) [address] [place] [address] CO2 [Moles/Vol] 26 mmol/L Normal 22-[address] [facility] Comment on above: Performed By: #### L [id number] #### Osha Inspector: SAILAJA MEHTA ([id number]) [facility] [employer] ([employer]) [address] [place] [address] Creatinine [Mass/Vol] 0.66 mg/dL Normal 0.52-1.04 [facility] Comment on above: Performed By: #### L [id number] #### Osha Inspector: SAILAJA MEHTA ([id number]) [facility]USJose Cruz [place] (SWRLAB) [address] [place] [address] GLOMERULAR FILTRATION RATE ML/MIN/1.73 SQ M.PREDICTED >90.0 Normal >60.0 [facility] Comment on above: Result Comment: Calc ulation based on the Chronic Kidney Disease Epidemiology Collaboration (CKD-EPI) equation refit without adjustment for race Performed By: #### L [id number] #### Osha Inspector: SAILAJA MEHTA ([id number]) [facility]USJose Cruz [place] (SWRLAB) [address] [place] [address] [place] Glucose [Mass/Vol] 83 mg/dL Normal 70-100 [facility] Comment on above: Performed By: #### L [id number] #### Osha Inspector: SAILAJA MEHTA ([id number]) [facility]USJose Cruz [place] (SWRLAB) [address] [place] [address] [place] Potassium [Moles/Vol] 4.1 mmol/L Normal 3.5-5.1 [facility] Comment on above: Performed By: #### L [id number] #### Osha Inspector: SAILAJA MEHTA ([id number]) [facility]USJose Cruz [facility] [place] (SWRLAB) [address] [place] [address] [place] Protein [Mass/Vol] 6.4 g/dL Normal 6.3-8.2 [facility] Comment on above: Performed By: #### L [id number] #### Osha Inspector: SAILAJA MEHTA ([id number]) [facility] [employer] [facility]TM[facility] (SWRLAB) [address] [place] [address] [place] Sodium [Moles/Vol] 140 mmol/L Normal 135-145 [facility] Comment on above: Performed By: #### L [id number] #### Osha Inspector: SAILAJA MEHTA ([id number]) [facility]USJose Cruz [employer] [facility] (SWRLAB) [address] [place] [address] [place] Urea nitrogen [Mass/Vol] 8 mg/dL Normal 7-17 [facility] Comment on above: Performed By: #### L [id number] #### Osha Inspector: SAILAJA MEHTA ([id number]) [facility]US[facility] Cruz [employer] (SWRL[employer]) [address] [place] [address] CT ABDOMEN PELVIS WO IV CONT [facility] 03-19-2023 CT ABDOMEN PELVIS WO IV CONTRAST [facility] 1980 [id number] Exam Date/Time: 03/19/2023 17:43 Procedure: CT ABDOMEN [...] stones, bilat flank pain, no CA Normal [facility] CT Abdomen WO contraston There are multiple fluid-filled loops of small and large bowel without a transition point to suggest obstruction. Prior GI surgery noted. Lack of GI contrast does limit overall evaluation. Correlate with clinical exam. No hydronephrosis. Cholecystectomy. Additional findings, as above. Report Dictated on Electronically Signed By: Lainey Ramires MD Electronically Signed Date/Time: 03/19/2023 5:55 PM EDT [facility] [employer] Patient Name: NIURKA ZHU : 1980 [...] limited due to lack of GI contrast. [facility] [employer] Lainey Ramires MD - 03/19/2023 Patient Name: NIURKA ZHU : 1980 Exam [...] Electronically Signed Date/Time: 03/19/2023 5:55 PM EDT [facility] [employer] Radiology Study observation (narrative) Amanuel Tera martinez CT Abdomen WO contrastOrdere d By: Lainey Ramires on 03-19-2023 [employer] Work Phone: Comprehensive metabolic 1998 panelon 03-19-2023 Albumin [Mass/Vol] 3.7 g/dL 3.5 - 5.0 g/dL [facility] ALP [Catalytic activity/Vol] 44 U/L 38 - 126 U/L [facility] ALT [Catalytic activity/Vol] 25 U/L 0 - 34 U/L [facility] Anion gap [Moles/Vol] 9 mmol/L 3 - 13 mmol/L [facility] AST [Catalytic activity/Vol] 25 U/L 15 - 46 U/L [facility] Bilirubin [Mass/Vol] 0.6 mg/dL 0.2 - 1 .3 mg/dL [facility] Calcium [Mass/Vol] 8.7 mg/dL 8.4 - 10. 4 mg/dL [facility] Chloride [Moles/Vol] 105 mmol/L 98 - 10 7 mmol/L [facility] CO2 [Moles/Vol] 26 mmol/L 22 - 30 mmol/L [facility] Creatinine [Mass/Vol] 0.66 mg/dL 0.52 - 1.04 mg/dL [facility] GFR/1.73 sq M.predicted MDRD (S/P/Bld) [Vol rate/Area] - PINF [facility] Comment on above: Calculation based on the Chronic Kidney Disease Epidemiology Collaboration (CKD-EPI) equation refit without adjustment for race Glucose [Mass/Vol] 83 mg/dL 70 - 100 mg/dL [facility] Interpretation and review of laboratory results Normal [facility] Potassium [Moles/Vol] 4.1 mmol/L 3.5 - 5.1 mmol/L [facility] Protein [Mass/Vol] 6.4 g/dL 6.3 - 8.2 g/dL [facility] Sodium [Moles/Vol] 140 mmol/L 135 - 145 mmol/L [facility] Urea nitrogen [Mass/Vol] 8 mg/dL 7 - 17 mg/d L [facility] ED Nursing Noteon 03-19-2023 ED Nursing Note [...] independently at discharge. Mihai Barraza RN 03/19/23 [id number] [facility] ED Nursing Note Patient ambulatory to room [...] bedside, and call light is in reach. [facility] ED Provider Noteon ED Provider Note [facility] ED EMERGENCY DEPARTMENT ENCOUNTER Pt Name: [...] PROTEIN 6.4 (more content not included)... Normal [facility] HCG QUALITATIVE URINEon 02-19 Beta HCG ( test) Ql (U) Negative Normal Negative [facility] Comment on above: Result Comment: Plea se note: Very dilute urine specimens, as indicated by a low specific gravity, may not contain customer service representative teller levels of hCG. If is still suspected, a first morning urine specimen should be collected 48 hours later and tested. ORDER COMMENTS: is the most common reason for HCG in urine, although choriocarcinoma, hydatidiform mole, and certain nontrophoblastic malignancies also result in detectable urinary HCG levels. Sensitivity = 20mIU/mL. Performed By: #### L [id number] #### Osha Inspector: SAILAJA MEHTA ([id number]) [facility] (RL[facility]) [address] [place] [address] Laboratory - Chemistry and C hemistry - challengeon 03-19-2023 Beta HCG ( test) Ql Negative Negative [facility] Comment on above: Please note: Very di lute urine specimens, as indicated by a low specific gravity, may not contain customer service representative teller levels of hCG. If is still suspected, a first morning urine specimen should be collected 48 hours later and tested. Beta HCG ( test) Ql (U) is the most common reason for HCG in urine, although choriocarcinoma, hydatidiform mole, and certain nontrophoblastic malignancies also result in detectable urinary HCG levels. Sensitivity = 20mIU/mL. [facility] No Panel Informationon 03-19 [facility] Urinalysis complete panel (U )on 03-19-2023 Bacteria LM.HPF (Urine sed) [#/Area] Moderate Abnormal Negative /HPF [facility] Bilirubin Ql (U) Negative Negative mg/dL [facility] Clarity (U) Clear Clear [facility] Color (U) Light Yellow Lt. Yellow [facility] Epithelial cells.squamous LM.HPF (Urine sed) [#/Area] 6-10 Abnormal [facility] h Glucose Ql (U) Normal Normal (<70) mg/dL [facility] Hemoglobin Ql (U) Negative Negative mg/dL [facility] Interpretation and review of laboratory results Abnormal [facility] Ketones (U) [Mass/Vol] Negative Negative mg/d L [facility] Leukocyte esterase Test strip Ql (U) Negative Negative Martínez/uL [facility] Mucus LM.HPF (Urine sed) [#/Area] Few Negative /LPF [facility] Nitrite Ql (U) Positive Abnormal Negative [facility] th pH (U) 5.0 [pH] 5.0 - 8.0 pH [facility] Protein (U) [Mass/Vol] Negative Negative mg/d L [facility] RBC LM.HPF (Urine sed) [#/Area] 0-2 [facility] Specific gravity (U) [Rel density] 1.015 1.005 - 1.030 [facility] Urobilinogen (U) [Mass/Vol] Normal Normal (0-1) mg/dL [facility] Volume, Urine 12 mL [facility] WBC LM.HPF (Urine sed) [#/Area] 0-2 [facility] STREP A MOLECULAR (POC)on Procedural Control Valid [facility] Strep A (POCT) Negative Negative [facility] Absolute lymphocyte countOrd ered By: Viola Carrasco on 03-03-2023 Lymphocytes Auto (Unsp spec) [#/Vol] 1.74 10*3/uL 0.83-4.51 [facility] Amorphous sediment detection in urine sediment by light microscopyOrdered By: Viola Carrasco on 03-03-2023 Amorphous sediment LM Ql (Urine sed) 1+ URATE [facility] Basophil percentageOrdered B y: Viola Carrasco on 03-03-2023 Basophil percentage 0-5 SEEN /hpf 0-5 [facility] Basophils/100 WBC (Bld) 0.7 % 0-1 [facility] Bilirubin [Mass/Vol] 0.50 mg/dL 0.20-1.00 [facility] Comment on above: For patients on eltr ombopag therapy, use of Dimension [place] TBIL is not recommended. Chloride [Moles/Vol] 110 mmol/L 98-107 [facility] Eosinophils/100 WBC (Bld) 2.4 % 0-5 [facility] Glucose [Mass/Vol] 101 mg/dL 74-106 [facility] Comment on above: Fasting Glucose resu lt from 100 to 125 mg/dL suggests IMPAIRED HOMEOSTASIS per A.D.A. criteria. Neutrophils (Bld) [#/Vol] 3.2 10*3/uL 2.0-7.7 [facility] Neutrophils/100 WBC (Bld) 58.8 % 47-70 [facility] Potassium [Moles/Vol] 3.2 mmol/L 3.5-5.1 [facility] Protein [Mass/Vol] 6.2 g/dL 6.4-8.2 [facility] Sodium [Moles/Vol] 144 mmol/L 136-145 [facility] WBC (Bld) [#/Vol] 5.5 10*3/uL 4.4-11.0 [facility] Bilirubin Test strip Ql (U)O rdered By: Viola Carrasco on 03-03-2023 Bilirubin Ql (U) 1 mg/dL Negative [facility] Comment on above: COLOR OF URINE MAY A FFECT DIPSTICK RESULTS. Blood erythrocytes count (nu mber/volume)Ordered By: Viola Carrasco on 03-03-2023 RBC (Bld) [#/Vol] 3.82 10*6/uL 4.2-5.4 [facility] Blood hemoglobin measurement (mass/volume)Ordered By: Viola Carrasco on 03-03-2023 Hemoglobin (Bld) [Mass/Vol] 11.8 g/dL 12.0-15.0 [facility] Blood lymphocytes/100 leukoc ytesOrdered By: Viola Carrasco on 03-03-2023 Lymphocytes/100 WBC (Bld) 31.7 % 19-41 [facility] Blood monocytes/100 leukocyt esOrdered By: Viola Carrasco on 03-03-2023 Monocytes/100 WBC (Bld) 6.2 % 0-10 [facility] Blood platelet mean volumeOr dered By: Viola Carrasco on 03-03-2023 Platelet mean volume (Bld) [Entitic vol] 10.3 fL 6.2-12.0 [facility] Culture, urineOrdered By: Jess Carrasco on 03-03-2023 Bacteria identified Cx Nom (U) Escherichia coli [facility] Determination of erythrocyte mean corpuscular volume (MCV)Ordered By: Viola Carrasco on 03-03-2023 MCV (RBC) [Entitic vol] 95.8 fL 81-99 [facility] Hematocrit Auto (Bld) [Volum e fraction]Ordered By: Viola Carrasco on 03-03-2023 Hematocrit (Bld) [Volume fraction] 36.6 % 37-47 [facility] Ketones Test strip Ql (U)Ord ered By: Viola Carrasco on 03-03-2023 Ketones Ql (U) 5 mg/dl Negative [facility] Laboratory - Chemistry and C hemistry - challengeOrdered By: Viola Carrasco on 03-03-2023 ALP [Catalytic activity/Vol] 65 U/L 45-117 [facility] ALT [Catalytic activity/Vol] 30 U/L 13-56 [facility] CO2 [Moles/Vol] 27.0 mmol/L 21.0-32.0 [facility] Globulin (S) [Mass/Vol] 3.1 g/dL 2.2-4.2 [facility] Lipase [Catalytic activity/Vol] 18 U/L 13-75 [facility] Comment on above: Please note:LIPASE r evised reference range effective 22. New Lipase methodology. Expected to produce lower values than the previous assay method. NEW Reference Range: 13 - 75 U/L Urea nitrogen/Creatinine [Mass ratio] 14.8 mg/mg 10-20 [facility] Laboratory - Hematology and Cell countsOrdered By: Viola Carrasco on 03-03-2023 Erythrocyte distribution width (RBC) [Entitic vol] 46.3 fL 35.1-43.9 [facility] Erythrocyte distribution width (RBC) [Ratio] 13.2 % 11.6-14.6 [facility] Immature granulocytes/100 WBC (Bld) 0.200 % 0.0-0.9 [facility] Comment on above: IG% - Immature Granu locytes (promyelocytes, myelocytes and metamyelocytes) > 1% indicates that a LEFT SHIFT is Present. MCH (RBC) [Entitic mass] 30.9 pg 27.0-32.0 [facility] Nucleated RBC/100 WBC (Bld) [Ratio] 0 % 0-5 [facility] MCHC Auto (RBC) [Mass/Vol]Or dered By: Viola Carrasco on 03-03-2023 MCHC (RBC) [Mass/Vol] 32.2 g/dL 32-36 [facility] Mucus LM Ql (Urine sed)Order ed By: Viola Carrasco on 03-03-2023 Mucus Ql (Urine sed) 0 SEEN /hpf [facility] Nitrite Test strip Ql (U)Ord ered By: Viola Carrasco on 03-03-2023 Nitrite Ql (U) Positive Negative [facility] No Panel InformationOrdered By: Viola Carrasco on 03-03-2023 Estimated Creatinine Clearance Calc 86.39 ml/min [facility] Estimated GFR (MDRD) Amer 110 mL/min >60 [facility] Comment on above: GFR Calc Estimated GFR (MDRD) Non-Af Amer 91 mL/min >60 [facility] Comment on above: Non- GFR Calc Platelets bldOrdered By: Russ Carrasco on 10-15-2023 Platelets (Bld) [#/Vol] 183 10*3/uL 150-450 [facility] Protein Test strip Ql (U)Ord ered By: Viola Carrasco on 03-03-2023 Protein Ql (U) 30 mg/dl Negative [facility] Serum or plasma albumin liliana urement (mass/volume)Ordered By: Viola Carrasco on 03-03-2023 Albumin [Mass/Vol] 3.1 g/dL 3.2-5.0 [facility] Serum or plasma albumin/glob ulin mass ratioOrdered By: Viola Carrasco on 03-03-2023 Albumin/Globulin [Mass ratio] 1.0 {ratio} 0.9-2.4 [facility] Serum or plasma calcium liliana urement (mass/volume)Ordered By: Viola Carrasco on 03-03-2023 Calcium [Mass/Vol] 8.3 mg/dL 8.5-10.1 [facility] Serum or plasma creatinine m easurement (mass/volume)Ordered By: Viola Carrasco on 03-03-2023 Creatinine [Mass/Vol] 0.74 mg/dL 0.55-1.02 [facility] Comment on above: The validity of the calculated GFR & GFRAA in patients over 70 years has not been determined. Clinical correlation is essential. Serum or plasma urea nitroge n measurement (mass/volume)Ordered By: Viola Carrasco on 03-03-2023 Urea nitrogen [Mass/Vol] 11 mg/dL 7-18 [facility] Squamous epithelial cells de tection in urine sediment by light microscopyOrdered By: Viola Carrasco on 03-03-2023 Epithelial cells.squamous LM Ql (Urine sed) 5-10 SEEN /hpf 5-10 [facility] Thin prep Papanicolaou smear with manual screeningOrdered By: Viola Carrasco on 03-03-2023 Thin prep Papanicolaou smear with manual screening 23 U/L 15-37 [facility] Thin prep Papanicolaou smear with manual screening 7 5-15 [facility] Urine blood detectionOrdered By: Viola Carrasco on 03-03-2023 RBC Ql (U) 150 /ul Negative [facility] RBC Ql (U) 10-25 SEEN /hpf 0-5 [facility] Urine clarityOrdered By: Russ Carrasco on 03-03-2023 Clarity (U) Cloudy Clear [facility] Urine color determinationOrd ered By: Viola Carrasco on 03-03-2023 Color (U) Yellow Yellow [facility] Urine glucose detectionOrder ed By: Viola Carrasco on 03-03-2023 Glucose Ql (U) Normal mg/dl Normal [facility] Urine leukocyte esterase det ection by dipstickOrdered By: Viola Carrasco on 03-03-2023 Leukocyte esterase Test strip Ql (U) 25 /ul Negative [facility] Urine pHOrdered By: Franco Carrasco on 03-03-2023 pH (U) 5.0 [pH] 5.0 - 8.0 [facility] Urine sediment bacteria coun t by microscopy (number/high power field)Ordered By: Viola Carrasco on 03-03-2023 Bacteria LM.HPF (Urine sed) [#/Area] 3 /[HPF] None Seen [facility] Urine sediment uric acid cry stal count by microscopy (number/high power field)Ordered By: Viola Carrasco on 03-03-2023 Urate crystals LM.HPF (Urine sed) [#/Area] 1 /[HPF] [facility] Urine specific gravity measu rementOrdered By: Viola Carrasco on 03-03-2023 Specific gravity (U) [Rel density] 1.025 1.002-1.030 [facility] Urobilinogen Auto test strip Ql (U)Ordered By: Viola Carrasco on 03-03-2023 Urobilinogen Ql (U) Normal mg/dl Normal [facility] Absolute lymphocyte countOrd ered By: Guanako Richardson on 12-30-2022 Lymphocytes Auto (Unsp spec) [#/Vol] 1.34 10*3/uL 0.83-4.51 [facility] Basophil percentageOrdered B y: Guanako Richardson on 12-30-2022 Basophils/100 WBC (Bld) 0.6 % 0-1 [facility] Chloride [Moles/Vol] 106 mmol/L 98-107 [facility] Eosinophils/100 WBC (Bld) 1.8 % 0-5 [facility] Glucose [Mass/Vol] 94 mg/dL 74-106 [facility] Neutrophils (Bld) [#/Vol] 3.2 10*3/uL 2.0-7.7 [facility] Neutrophils/100 WBC (Bld) 64.2 % 47-70 [facility] Potassium [Moles/Vol] 3.2 mmol/L 3.5-5.1 [facility] Sodium [Moles/Vol] 142 mmol/L 136-145 [facility] WBC (Bld) [#/Vol] 5.0 10*3/uL 4.4-11.0 [facility] Blood erythrocytes count (nu mber/volume)Ordered By: Guanako Richardson on 12-30-2022 RBC (Bld) [#/Vol] 4.26 10*6/uL 4.2-5.4 [facility] Blood hemoglobin measurement (mass/volume)Ordered By: Guanako Richardson on 12-30-2022 Hemoglobin (Bld) [Mass/Vol] 12.7 g/dL 12.0-15.0 [facility] Blood lymphocytes/100 leukoc ytesOrdered By: Guanako Richardson on 12-30-2022 Lymphocytes/100 WBC (Bld) 26.8 % 19-41 [facility] Blood monocytes/100 leukocyt esOrdered By: Guanako Richardson on 12-30-2022 Monocytes/100 WBC (Bld) 6.4 % 0-10 [facility] Blood platelet mean volumeOr dered By: Guanako Richardson on 12-30-2022 Platelet mean volume (Bld) [Entitic vol] 10.1 fL 6.2-12.0 [facility] COVID-19 virus antigen assay Ordered By: Guanako Richardson on 12-30-2022 SARS-CoV-2 (COVID-19) Ag IA.rapid Ql (Resp) [facility] Determination of erythrocyte mean corpuscular volume (MCV)Ordered By: Guanako Richardson on 12-30-2022 MCV (RBC) [Entitic vol] 93.9 fL 81-99 [facility] Hematocrit Auto (Bld) [Volum e fraction]Ordered By: Guanako Richardson on 12-30-2022 Hematocrit (Bld) [Volume fraction] 40.0 % 37-47 [facility] Laboratory - Chemistry and C hemistry - challengeOrdered By: Guanako Richardson on 12-30-2022 CO2 [Moles/Vol] 29.0 mmol/L 21.0-32.0 [facility] Magnesium [Mass/Vol] 1.2 mg/dL 1.6-2.6 [facility] Urea nitrogen/Creatinine [Mass ratio] 12.5 mg/mg 10-20 [facility] Laboratory - Hematology and Cell countsOrdered By: Guanako Richardson on 12-30-2022 Erythrocyte distribution width (RBC) [Entitic vol] 46.6 fL 35.1-43.9 [facility] Erythrocyte distribution width (RBC) [Ratio] 13.5 % 11.6-14.6 [facility] Immature granulocytes/100 WBC (Bld) 0.200 % 0.0-0.9 [facility] Comment on above: IG% - Immature Granu locytes (promyelocytes, myelocytes and metamyelocytes) > 1% indicates that a LEFT SHIFT is Present. MCH (RBC) [Entitic mass] 29.8 pg 27.0-32.0 [facility] Nucleated RBC/100 WBC (Bld) [Ratio] 0 % 0-5 [facility] MCHC Auto (RBC) [Mass/Vol]Or dered By: Guanako Richardson on 12-30-2022 MCHC (RBC) [Mass/Vol] 31.8 g/dL 32-36 [facility] No Panel InformationOrdered By: Guanako Richardson on 12-30-2022 Estimated Creatinine Clearance Calc 88.79 ml/min [facility] Estimated GFR (MDRD) Amer 114 mL/min >60 [facility] Comment on above: GFR Calc Estimated GFR (MDRD) Non-Af Amer 94 mL/min >60 [facility] Comment on above: Non- GFR Calc Platelets bldOrdered By: Erick Richardson on 12-30-2022 Platelets (Bld) [#/Vol] 173 10*3/uL 150-450 [facility] Serum or plasma calcium liliana urement (mass/volume)Ordered By: Guanako Richardson on 12-30-2022 Calcium [Mass/Vol] 8.6 mg/dL 8.5-10.1 [facility] Serum or plasma creatinine m easurement (mass/volume)Ordered By: Guanako Richardson on 12-30-2022 Creatinine [Mass/Vol] 0.72 mg/dL 0.55-1.02 [facility] Comment on above: The validity of the calculated GFR & GFRAA in patients over 70 years has not been determined. Clinical correlation is essential. Serum or plasma urea nitroge n measurement (mass/volume)Ordered By: Guanako Richardson on 12-30-2022 Urea nitrogen [Mass/Vol] 9 mg/dL 7-18 [facility] Thin prep Papanicolaou smear with manual screeningOrdered By: Guanako Richardson on 12-30-2022 Thin prep Papanicolaou smear with manual screening 7 5- [facility] Chlamydia trachomatis rRNA d etection by probe and target amplification methodOrdered By: Sonia Lopez on 11-27-2022 C. trachomatis rRNA DAVI+probe Ql (Unsp spec) Negative Negative [facility] Gram stain for investigation of transfusion reactionOrdered By: Sonia Lopez on 11-27-2022 Microscopic observation Gram stain Nom (Unsp spec) [facility] Laboratory - Microbiology an d Antimicrobial susceptibilityOrdered By: Sonia Lopez on 11-27-2022 N. gonorrhoeae DNA DAVI+probe Ql (Unsp spec) Negative Negative [facility] Comment on above: Performed at: =[address] [id number] Director: Mariana Wilkins MD, Phone: [phone] No Panel Informationon 11-27 POC Trichomonas (Rapid) Negative [facility] Thin prep Papanicolaou smear with manual screeningOrdered By: Sonia Lopez on 11-27-2022 Genital Culture Streptococcus agalactiae (B) [facility] Genital Culture Gardnerella vaginalis [facility] Absolute lymphocyte countOrd ered By: ED PROVIDER on 10-07-2022 Lymphocytes Auto (Unsp spec) [#/Vol] 1.88 10*3/uL 0.83-4.51 [facility] Basophil percentageOrdered B y: Sukhdev Pennington on 10-07-2022 Lactate [Moles/Vol] 1.1 mmol/L 0.4-2.0 [facility] Basophil percentage 0-5 SEEN /hpf 0-5 [facility] Basophil percentageOrdered B y: ED PROVIDER on 10-07-2022 Basophils/100 WBC (Bld) 0.7 % 0-1 [facility] Bilirubin [Mass/Vol] 0.30 mg/dL 0.20-1.00 [facility] Comment on above: For patients on eltr ombopag therapy, use of Dimension [place] TBIL is not recommended. Chloride [Moles/Vol] 109 mmol/L 98-107 [facility] Eosinophils/100 WBC (Bld) 2.4 % 0-5 [facility] Glucose [Mass/Vol] 85 mg/dL 74-106 [facility] Neutrophils (Bld) [#/Vol] 3.1 10*3/uL 2.0-7.7 [facility] Neutrophils/100 WBC (Bld) 55.8 % 47-70 [facility] Potassium [Moles/Vol] 3.5 mmol/L 3.5-5.1 [facility] Protein [Mass/Vol] 6.5 g/dL 6.4-8.2 [facility] Sodium [Moles/Vol] 143 mmol/L 136-145 [facility] WBC (Bld) [#/Vol] 5.5 10*3/uL 4.4-11.0 [facility] Beta hCG serum qualOrdered B y: Sukhdev Pennington on 10-07-2022 Beta HCG ( test) Ql Negative [facility] Bilirubin Test strip Ql (U)O rdered By: Sukhdev Pennington on 10-07-2022 Bilirubin Ql (U) Negative Negative [facility] Blood erythrocytes count (nu mber/volume)Ordered By: ED PROVIDER on 10-07-2022 RBC (Bld) [#/Vol] 4.12 10*6/uL 4.2-5.4 [facility] Blood hemoglobin measurement (mass/volume)Ordered By: ED PROVIDER on 10-07-2022 Hemoglobin (Bld) [Mass/Vol] 12.3 g/dL 12.0-15.0 [facility] Blood lymphocytes/100 leukoc ytesOrdered By: ED PROVIDER on 10-07-2022 Lymphocytes/100 WBC (Bld) 34.2 % 19-41 [facility] Blood monocytes/100 leukocyt esOrdered By: ED PROVIDER on 10-07-2022 Monocytes/100 WBC (Bld) 6.7 % 0-10 [facility] Blood platelet mean volumeOr dered By: ED PROVIDER on 10-07-2022 Platelet mean volume (Bld) [Entitic vol] 9.7 fL 6.2-12.0 [facility] Determination of erythrocyte mean corpuscular volume (MCV)Ordered By: ED PROVIDER on 10-07-2022 MCV (RBC) [Entitic vol] 93.4 fL 81-99 [facility] Hematocrit Auto (Bld) [Volum e fraction]Ordered By: ED PROVIDER on 10-07-2022 Hematocrit (Bld) [Volume fraction] 38.5 % 37-47 [facility] Ketones Test strip Ql (U)Ord ered By: Sukhdev Pennington on 10-07-2022 Ketones Ql (U) 5 mg/dl Negative [facility] Laboratory - Chemistry and C hemistry - challengeOrdered By: ED PROVIDER on 10-07-2022 ALP [Catalytic activity/Vol] 79 U/L 45-117 [facility] ALT [Catalytic activity/Vol] 24 U/L 13-56 [facility] CO2 [Moles/Vol] 28.0 mmol/L 21.0-32.0 [facility] Globulin (S) [Mass/Vol] 3.5 g/dL 2.2-4.2 [facility] Urea nitrogen/Creatinine [Mass ratio] 10.6 mg/mg 10-20 [facility] Laboratory - Hematology and Cell countsOrdered By: ED PROVIDER on 10-07-2022 Erythrocyte distribution width (RBC) [Entitic vol] 44.2 fL 35.1-43.9 [facility] Erythrocyte distribution width (RBC) [Ratio] 12.9 % 11.6-14.6 [facility] Immature granulocytes/100 WBC (Bld) 0.200 % 0.0-0.9 [facility] Comment on above: IG% - Immature Granu locytes (promyelocytes, myelocytes and metamyelocytes) > 1% indicates that a LEFT SHIFT is Present. MCH (RBC) [Entitic mass] 29.9 pg 27.0-32.0 [facility] Nucleated RBC/100 WBC (Bld) [Ratio] 0 % 0-5 [facility] MCHC Auto (RBC) [Mass/Vol]Or dered By: ED PROVIDER on 10-07-2022 MCHC (RBC) [Mass/Vol] 31.9 g/dL 32-36 [facility] Mucus LM Ql (Urine sed)Order ed By: Sukhdev Pennington on 10-07-2022 Mucus Ql (Urine sed) 0 SEEN /hpf [facility] Nitrite Test strip Ql (U)Ord ered By: Sukhdev Pennington on 10-07-2022 Nitrite Ql (U) Negative Negative [facility] No Panel InformationOrdered By: ED PROVIDER on 10-07-2022 Estimated Creatinine Clearance Calc 84.12 ml/min [facility] Estimated GFR (MDRD) Amer 108 mL/min >60 [facility] Comment on above: GFR Calc Estimated GFR (MDRD) Non-Af Amer 89 mL/min >60 [facility] Comment on above: Non- GFR Calc Platelets bldOrdered By: ED PROVIDER on 10-07-2022 Platelets (Bld) [#/Vol] 194 10*3/uL 150-450 [facility] Protein Test strip Ql (U)Ord ered By: Sukhdev Pennington on 10-07-2022 Protein Ql (U) 15 mg/dl Negative [facility] Serum or plasma albumin liliana urement (mass/volume)Ordered By: ED PROVIDER on 10-07-2022 Albumin [Mass/Vol] 3.0 g/dL 3.2-5.0 [facility] Serum or plasma albumin/glob ulin mass ratioOrdered By: ED PROVIDER on 10-07-2022 Albumin/Globulin [Mass ratio] 0.9 {ratio} 0.9-2.4 [facility] Serum or plasma calcium liliana urement (mass/volume)Ordered By: ED PROVIDER on 10-07-2022 Calcium [Mass/Vol] 8.1 mg/dL 8.5-10.1 [facility] Serum or plasma creatinine m easurement (mass/volume)Ordered By: ED PROVIDER on 10-07-2022 Creatinine [Mass/Vol] 0.76 mg/dL 0.55-1.02 [facility] Comment on above: The validity of the calculated GFR & GFRAA in patients over 70 years has not been determined. Clinical correlation is essential. Serum or plasma urea nitroge n measurement (mass/volume)Ordered By: ED PROVIDER on 10-07-2022 Urea nitrogen [Mass/Vol] 8 mg/dL 7-18 [facility] Squamous epithelial cells de tection in urine sediment by light microscopyOrdered By: Sukhdev Pennington on 10-07-2022 Epithelial cells.squamous LM Ql (Urine sed) 0-5 SEEN /hpf 5-10 [facility] Thin prep Papanicolaou smear with manual screeningOrdered By: ED PROVIDER on 10-07-2022 Thin prep Papanicolaou smear with manual screening 23 U/L 15-37 [facility] Thin prep Papanicolaou smear with manual screening 6 5-15 [facility] Urine blood detectionOrdered By: Sukhdev Pennington on 10-07-2022 RBC Ql (U) 25 /ul Negative [facility] RBC Ql (U) 0 SEEN /hpf 0-5 [facility] Urine clarityOrdered By: Lars Pennington on 10-07-2022 Clarity (U) Sl. Cloudy Clear [facility] Urine color determinationOrd ered By: Sukhdev Pennington on 10-07-2022 Color (U) Yellow Yellow [facility] Urine glucose detectionOrder ed By: Sukhdev Pennington on 10-07-2022 Glucose Ql (U) Normal mg/dl Normal [facility] Urine leukocyte esterase det ection by dipstickOrdered By: Sukhdev Pennington on 10-07-2022 Leukocyte esterase Test strip Ql (U) Negative Negative [facility] Urine pHOrdered By: Sukhdev mukherjee on 10-07-2022 pH (U) 5.0 [pH] 5.0 - 8.0 [facility] Urine sediment bacteria coun t by microscopy (number/high power field)Ordered By: Sukhdev Pennington on 10-07-2022 Bacteria LM.HPF (Urine sed) [#/Area] 0 /[HPF] None Seen [facility] Urine specific gravity measu rementOrdered By: Sukhdev Pennington on 10-07-2022 Specific gravity (U) [Rel density] 1.025 1.002-1.030 [facility] Urobilinogen Auto test strip Ql (U)Ordered By: Sukhdev Pennington on 10-07-2022 Urobilinogen Ql (U) Normal mg/dl Normal [facility] Absolute lymphocyte countOrd ered By: Kyler De Santiago on 09-15-2022 Lymphocytes Auto (Unsp spec) [#/Vol] 2.15 10*3/uL 0.83-4.51 [facility] Basophil percentageOrdered B y: Kyler De Santiago on 09-15-2022 Basophil percentage 0 SEEN /hpf 0-5 [facility] Basophils/100 WBC (Bld) 0.4 % 0-1 [facility] Bilirubin [Mass/Vol] 0.50 mg/dL 0.20-1.00 [facility] Comment on above: For patients on eltr ombopag therapy, use of Dimension [place] TBIL is not recommended. Chloride [Moles/Vol] 105 mmol/L 98-107 [facility] Eosinophils/100 WBC (Bld) 1.7 % 0-5 [facility] Glucose [Mass/Vol] 81 mg/dL 74-106 [facility] Lymphocytes/100 WBC (Bld) 30.0 % 19-41 [facility] Monocytes/100 WBC (Bld) 6.0 % 0-10 [facility] Neutrophils (Bld) [#/Vol] 4.4 10*3/uL 2.0-7.7 [facility] Neutrophils/100 WBC (Bld) 61.6 % 47-70 [facility] Potassium [Moles/Vol] 3.5 mmol/L 3.5-5.1 [facility] Protein [Mass/Vol] 7.1 g/dL 6.4-8.2 [facility] Sodium [Moles/Vol] 138 mmol/L 136-145 [facility] WBC (Bld) [#/Vol] 7.2 10*3/uL 4.4-11.0 [facility] Bilirubin Test strip Ql (U)O rdered By: Kyler De Santiago on 09-15-2022 Bilirubin Ql (U) 1 mg/dL Negative [facility] Comment on above: COLOR OF URINE MAY A FFECT DIPSTICK RESULTS. Blood erythrocytes count (nu mber/volume)Ordered By: Kyler De Santiago on 09-15-2022 RBC (Bld) [#/Vol] 4.38 10*6/uL 4.2-5.4 [facility] Blood hemoglobin measurement (mass/volume)Ordered By: Kyler De Santiago on 09-15-2022 Hemoglobin (Bld) [Mass/Vol] 13.1 g/dL 12.0-15.0 [facility] Blood platelet mean volumeOr dered By: Kyler De Santiago on 09-15-2022 Platelet mean volume (Bld) [Entitic vol] 9.7 fL 6.2-12.0 [facility] Determination of erythrocyte mean corpuscular volume (MCV)Ordered By: Kyler De Santiago on 09-15-2022 MCV (RBC) [Entitic vol] 93.8 fL 81-99 [facility] Hematocrit Auto (Bld) [Volum e fraction]Ordered By: Kyler De Santiago on 09-15-2022 Hematocrit (Bld) [Volume fraction] 41.1 % 37-47 [facility] Ketones Test strip Ql (U)Ord ered By: Kyler De Santiago on 09-15-2022 Ketones Ql (U) 5 mg/dl Negative [facility] Laboratory - Chemistry and C hemistry - challengeOrdered By: Kyler De Santiago on 09-15-2022 ALP [Catalytic activity/Vol] 81 U/L 45-117 [facility] ALT [Catalytic activity/Vol] 29 U/L 13-56 [facility] CO2 [Moles/Vol] 29.0 mmol/L 21.0-32.0 [facility] Globulin (S) [Mass/Vol] 3.5 g/dL 2.2-4.2 [facility] HCG ( test) Ql (U) Negative [facility] Comment on above: Very dilute urine sp ecimens, as indicated by a low specificgravity, may not contain customer service representative teller levels of hCG. If is still suspected, a first morning urinespecimen should be collected 48 hours later and tested. Lipase [Catalytic activity/Vol] 15 U/L 13-75 [facility] Comment on above: Please note:LIPASE r evised reference range effective 22. New Lipase methodology. Expected to produce lower values than the previous assay method. NEW Reference Range: 13 - 75 U/L Urea nitrogen/Creatinine [Mass ratio] 18.1 mg/mg 10-20 [facility] - Hematology and Cell countsOrdered By: Kyler De Santiago on 09-15-2022 Erythrocyte distribution width (RBC) [Entitic vol] 45.4 fL 35.1-43.9 [facility] Erythrocyte distribution width (RBC) [Ratio] 13.2 % 11.6-14.6 [facility] Immature granulocytes/100 WBC (Bld) 0.300 % 0.0-0.9 [facility] Comment on above: IG% - Immature Granu locytes (promyelocytes, myelocytes and metamyelocytes) > 1% indicates that a LEFT SHIFT is Present. MCH (RBC) [Entitic mass] 29.9 pg 27.0-32.0 [facility] MCHC Auto (RBC) [Mass/Vol]Or dered By: Kyler De Santiago on 09-15-2022 MCHC (RBC) [Mass/Vol] 31.9 g/dL 32-36 [facility] Mucus LM Ql (Urine sed)Order ed By: Kyler De Santiago on 09-15-2022 Mucus Ql (Urine sed) 0 SEEN /hpf [facility] Nitrite Test strip Ql (U)Ord ered By: Kyler De Santiago on 09-15-2022 Nitrite Ql (U) Negative Negative [facility] No Panel InformationOrdered By: Kyler De Santiago on 09-15-2022 Estimated Creatinine Clearance Calc 83.03 ml/min [facility] Estimated GFR (MDRD) Amer 106 mL/min >60 [facility] Comment on above: GFR Calc Estimated GFR (MDRD) Non-Af Amer 87 mL/min >60 [facility] Comment on above: Non- GFR Calc Platelets bldOrdered By: Claudette De Santiago on 09-15-2022 Platelets (Bld) [#/Vol] 203 10*3/uL 150-450 [facility] Protein Test strip Ql (U)Ord ered By: Kyler De Santiago on 09-15-2022 Protein Ql (U) 15 mg/dl Negative [facility] Serum or plasma albumin liliana urement (mass/volume)Ordered By: Kyler De Santiago on 09-15-2022 Albumin [Mass/Vol] 3.6 g/dL 3.2-5.0 [facility] Serum or plasma albumin/glob ulin mass ratioOrdered By: Kyler De Santiago on 09-15-2022 Albumin/Globulin [Mass ratio] 1.0 {ratio} 0.9-2.4 [facility] Serum or plasma calcium liliana urement (mass/volume)Ordered By: Kyler De Santiago on 09-15-2022 Calcium [Mass/Vol] 9.1 mg/dL 8.5-10.1 [facility] Serum or plasma creatinine m easurement (mass/volume)Ordered By: Kyler De Santiago on 09-15-2022 Creatinine [Mass/Vol] 0.77 mg/dL 0.55-1.02 [facility] Comment on above: The validity of the calculated GFR & GFRAA in patients over 70 years has not been determined. Clinical correlation is essential. Serum or plasma urea nitroge n measurement (mass/volume)Ordered By: Kyler De Santiago on 09-15-2022 Urea nitrogen [Mass/Vol] 14 mg/dL 7-18 [facility] Squamous epithelial cells de tection in urine sediment by light microscopyOrdered By: Kyler De Santiago on 09-15-2022 Epithelial cells.squamous LM Ql (Urine sed) 0-5 SEEN /hpf 5-10 [facility] Thin prep Papanicolaou smear with manual screeningOrdered By: Kyler De Santiago on 09-15-2022 Thin prep Papanicolaou smear with manual screening 22 U/L 15-37 [facility] Thin prep Papanicolaou smear with manual screening 4 5-15 [facility] Urine blood detectionOrdered By: Kyler De Santiago on 09-15-2022 RBC Ql (U) 10 /ul Negative [facility] RBC Ql (U) 0-5 SEEN /hpf 0-5 [facility] Urine clarityOrdered By: Claudette De Santiago on 09-15-2022 Clarity (U) Sl. Cloudy Clear [facility] Urine color determinationOrd ered By: Kyler De Santiago on 09-15-2022 Color (U) Yellow Yellow [facility] Urine glucose detectionOrder ed By: Kyler De Santiago on 09-15-2022 Glucose Ql (U) Normal mg/dl Normal [facility] Urine leukocyte esterase det ection by dipstickOrdered By: Kyler De Santiago on 09-15-2022 Leukocyte esterase Test strip Ql (U) 100 /ul Negative [facility] Urine pHOrdered By: Kyler hammonds on 09-15-2022 pH (U) 5.0 [pH] 5.0 - 8.0 [facility] Urine sediment bacteria coun t by microscopy (number/high power field)Ordered By: Kyler De Santiago on 09-15-2022 Bacteria LM.HPF (Urine sed) [#/Area] RARE /hpf None Seen [facility] Urine specific gravity measu rementOrdered By: Kyler De Santiago on 09-15-2022 Specific gravity (U) [Rel density] 1.020 1.002-1.030 [facility] Urobilinogen Auto test strip Ql (U)Ordered By: Kyler De Santiago on 09-15-2022 Urobilinogen Ql (U) Normal mg/dl Normal [facility] Culture, urineOrdered By: Ron Brar on 09-13-2022 Bacteria identified Cx Nom (U) Culture exhibits no growth. [facility] Culture, urineOrdered By: Ron Brar on 09-11-2022 Bacteria identified Cx Nom (U) Culture exhibits no growth. [facility] Laboratory - Chemistry and C hemistry - challengeon 09-11-2022 Bilirubin Ql (U) Negative [facility] Glucose Ql (U) Negative [facility] Ketones Ql (U) Small (15+) [facility] pH (U) 5.0 [pH] [facility] Specific gravity (U) [Rel density] 1.010 [facility] Urobilinogen (U) [Mass/Vol] Negative [facility] - Hematology and Cell countson 09-11-2022 Hemoglobin Ql (U) Negative [facility] Laboratory - Specimen inform ationon 09-11-2022 Clarity (U) Clear [facility] Color (U) YELLOW [facility] Laboratory - Urinalysison Nitrite Ql (U) Negative [facility] Protein Ql (U) Negative [facility] No Panel Informationon 09-11 POC Bacterial Vaginitis (Rapid) Negative [facility] POC Trichomonas (Rapid) Negative [facility] Urine Leukocytes Negatve [facility] Urine Non-Hemolyzed Blood Negative [facility] STREP A MOLECULAR (POC)on Procedural Control Valid [facility] Strep A (POCT) Negative Negative [facility] Thin prep Papanicolaou smear with manual screeningOrdered By: Francoise Brar on 08-03-2022 Genital Culture Streptococcus group B [facility] Gram stain for investigation of transfusion reactionOrdered By: Francoise Brar on 07-31-2022 Microscopic observation Gram stain Nom (Unsp spec) [facility] Chlamydia trachomatis rRNA d etection by probe and target amplification methodOrdered By: Francoise Brar on 07-30-2022 C. trachomatis rRNA DAVI+probe Ql (Unsp spec) Negative Negative [facility] HIV 1 and HIV-2 antibody ass ay with HIV-1 p24 antigen detectionOrdered By: Francoise Brar on 07-30-2022 HIV 1+2 Ab+HIV1 p24 Ag IA Ql Non-Reactive Nonreactive [facility] - Microbiology an d Antimicrobial susceptibilityOrdered By: Francoise Brar on 07-30-2022 N. gonorrhoeae DNA DAVI+probe Ql (Unsp spec) Negative Negative [facility] Comment on above: Performed at: =[address] [id number] Director: Mariana Wilkins MD, Phone: [phone] No Panel Informationon 07-30 POC Bacterial Vaginitis (Rapid) Positive [facility] POC Trichomonas (Rapid) Positive [facility] No Panel InformationOrdered By: Francoise Brar on 07-30-2022 Hepatitis C Antibody Non-Reactive Nonreactive [facility] Comment on above: Non Reactive: < 0.8 Equivocal: >/= 0.8 to < 1.0 Reactive: >/= 1.0The CDC recommends that a reactive/equivocal HCV antibody result be followed up by the HCV Nucleic Acid Amplificationtest (794462) Herpes Simplex Virus I IgG Antibody 1.37 index 0.00-0.90 [facility] Comment on above: Negative <0.91 Equiv ocal 0.91 - 1.09 Positive >1.09 Note: Negative indicates no antibodies detected to HSV-1. Equivocal may suggest early infection. If clinically appropriate, retest at later date. Positive indicates antibodies detected to HSV-1. Serum Treponema species anti body detectionOrdered By: Francoise Brar on 07-30-2022 Treponema sp Ab Ql (S) Non-Reactive [facility] Serum herpes simplex virus 2 antibody assay by immunoassay (units/volume)Ordered By: Francoise Brar on 07-30-2022 HSV 2 Ab IA Qn (S) 17.40 index 0.00-0.90 [facility] Comment on above: Negative <0.91 Equiv ocal 0.91 - 1.09 Positive >1.09 Note: Negative indicates no HSV-2 antibodies detected. Positive indicates HSV-2 antibodies detected. Equivocal and low positive HSV-2 screens (Index 0.91-5.00) may be false positive and are reflexed to supplemental testing in accordance with CDC guidelines.Performed at: [facility] [place] [id number] Director: Bay Cordero PhD, Phone: [phone] Culture, urineOrdered By: Dr Ariel Ma on 07-21-2022 Bacteria identified Cx Nom (U) Culture exhibits no growth. [facility] Absolute lymphocyte countOrd ered By: Dr. Ma on 07-19-2022 Lymphocytes Auto (Unsp spec) [#/Vol] 1.37 10*3/uL 0.83-4.51 [facility] Basophil percentageOrdered B y: Dr. Ma on 07-19-2022 Basophils/100 WBC (Bld) 0.6 % 0-1 [facility] Bilirubin [Mass/Vol] 1.00 mg/dL 0.20-1.00 [facility] Comment on above: For patients on eltr ombopag therapy, use of Dim[place] TBIL is not recommended. Chloride [Moles/Vol] 108 mmol/L 98-107 [facility] Eosinophils/100 WBC (Bld) 1.3 % 0-5 [facility] Glucose [Mass/Vol] 90 mg/dL 74-106 [facility] Neutrophils (Bld) [#/Vol] 3.3 10*3/uL 2.0-7.7 [facility] Neutrophils/100 WBC (Bld) 62.3 % 47-70 [facility] Potassium [Moles/Vol] 3.2 mmol/L 3.5-5.1 [facility] Protein [Mass/Vol] 6.9 g/dL 6.4-8.2 [facility] Sodium [Moles/Vol] 140 mmol/L 136-145 [facility] WBC (Bld) [#/Vol] 5.3 10*3/uL 4.4-11.0 [facility] Basophil percentage 5-10 SEEN /hpf 0-5 [facility] Beta hCG serum qualOrdered B y: Dr. Ma on 07-19-2022 Beta HCG ( test) Ql Negative [facility] Bilirubin Test strip Ql (U)O rdered By: Dr. Ma on 07-19-2022 Bilirubin Ql (U) Negative Negative [facility] Blood erythrocytes count (nu mber/volume)Ordered By: Dr. Ma on 07-19-2022 RBC (Bld) [#/Vol] 4.11 10*6/uL 4.2-5.4 [facility] Blood hemoglobin measurement (mass/volume)Ordered By: Dr. Ma on 07-19-2022 Hemoglobin (Bld) [Mass/Vol] 12.3 g/dL 12.0-15.0 [facility] Blood lymphocytes/100 leukoc ytesOrdered By: Dr. Ma on 07-19-2022 Lymphocytes/100 WBC (Bld) 25.7 % 19-41 [facility] Blood monocytes/100 leukocyt esOrdered By: Dr. Ma on 07-19-2022 Monocytes/100 WBC (Bld) 9.7 % 0-10 [facility] Blood platelet mean volumeOr dered By: Dr. Ma on 07-19-2022 Platelet mean volume (Bld) [Entitic vol] 9.6 fL 6.2-12.0 [facility] Determination of erythrocyte mean corpuscular volume (MCV)Ordered By: Dr. Ma on 07-19-2022 MCV (RBC) [Entitic vol] 94.2 fL 81-99 [facility] Hematocrit Auto (Bld) [Volum e fraction]Ordered By: Dr. Ma on 07-19-2022 Hematocrit (Bld) [Volume fraction] 38.7 % 37-47 [facility] Ketones Test strip Ql (U)Ord ered By: Dr. Ma on 07-19-2022 Ketones Ql (U) Negative Negative [facility] Laboratory - Chemistry and C hemistry - challengeOrdered By: Dr. Ma on 07-19-2022 ALP [Catalytic activity/Vol] 75 U/L 45-117 [facility] ALT [Catalytic activity/Vol] 29 U/L 13-56 [facility] CO2 [Moles/Vol] 26.0 mmol/L 21.0-32.0 [facility] Globulin (S) [Mass/Vol] 3.5 g/dL 2.2-4.2 [facility] Urea nitrogen/Creatinine [Mass ratio] 11.3 mg/mg 10-20 [facility] Laboratory - Hematology and Cell countsOrdered By: Dr. Ma on 07-19-2022 Erythrocyte distribution width (RBC) [Entitic vol] 45.3 fL 35.1-43.9 [facility] Erythrocyte distribution width (RBC) [Ratio] 13.2 % 11.6-14.6 [facility] Immature granulocytes/100 WBC (Bld) 0.400 % 0.0-0.9 [facility] Comment on above: IG% - Immature Granu locytes (promyelocytes, myelocytes and metamyelocytes) > 1% indicates that a LEFT SHIFT is Present. MCH (RBC) [Entitic mass] 29.9 pg 27.0-32.0 [facility] Nucleated RBC/100 WBC (Bld) [Ratio] 0 % 0-5 [facility] MCHC Auto (RBC) [Mass/Vol]Or dered By: Dr. Ma on 07-19-2022 MCHC (RBC) [Mass/Vol] 31.8 g/dL 32-36 [facility] Mucus LM Ql (Urine sed)Order ed By: Dr. Ma on 07-19-2022 Mucus Ql (Urine sed) 0 SEEN /hpf [facility] Nitrite Test strip Ql (U)Ord ered By: Dr. Ma on 07-19-2022 Nitrite Ql (U) Negative Negative [facility] No Panel InformationOrdered By: Dr. Ma on 07-19-2022 Estimated Creatinine Clearance Calc 103.11 ml/min [facility] Estimated GFR (MDRD) Amer 136 mL/min >60 [facility] Comment on above: GFR Calc Estimated GFR (MDRD) Non-Af Amer 113 mL/min >60 [facility] Comment on above: Non- GFR Calc Platelets bldOrdered By: Dr. Ma on 07-19-2022 Platelets (Bld) [#/Vol] 173 10*3/uL 150-450 [facility] Protein Test strip Ql (U)Ord ered By: Dr. Ma on 07-19-2022 Protein Ql (U) Negative Negative [facility] Serum or plasma albumin liliana urement (mass/volume)Ordered By: Dr. Ma on 07-19-2022 Albumin [Mass/Vol] 3.4 g/dL 3.2-5.0 [facility] Serum or plasma albumin/glob ulin mass ratioOrdered By: Dr. Ma on 07-19-2022 Albumin/Globulin [Mass ratio] 1.0 {ratio} 0.9-2.4 [facility] Serum or plasma calcium liliana urement (mass/volume)Ordered By: Dr. Ma on 07-19-2022 Calcium [Mass/Vol] 9.0 mg/dL 8.5-10.1 [facility] Serum or plasma creatinine m easurement (mass/volume)Ordered By: Dr. Ma on 07-19-2022 Creatinine [Mass/Vol] 0.62 mg/dL 0.55-1.02 [facility] Comment on above: The validity of the calculated GFR & GFRAA in patients over 70 years has not been determined. Clinical correlation is essential. Serum or plasma urea nitroge n measurement (mass/volume)Ordered By: Dr. Ma on 07-19-2022 Urea nitrogen [Mass/Vol] 7 mg/dL 7-18 [facility] Squamous epithelial cells de tection in urine sediment by light microscopyOrdered By: Dr. Ma on 07-19-2022 Epithelial cells.squamous LM Ql (Urine sed) 0 SEEN /hpf 5-10 [facility] Thin prep Papanicolaou smear with manual screeningOrdered By: Dr. Ma on 07-19-2022 Thin prep Papanicolaou smear with manual screening 19 U/L 15-37 [facility] Thin prep Papanicolaou smear with manual screening 6 5-15 [facility] Urine blood detectionOrdered By: Dr. Ma on 07-19-2022 RBC Ql (U) 25 /ul Negative [facility] RBC Ql (U) 0 SEEN /hpf 0-5 [facility] Urine clarityOrdered By: Dr. Ma on 07-19-2022 Clarity (U) Clear Clear [facility] Urine color determinationOrd ered By: Dr. Ma on 07-19-2022 Color (U) Yellow Yellow [facility] Urine glucose detectionOrder ed By: Dr. Ma on 07-19-2022 Glucose Ql (U) Normal mg/dl Normal [facility] Urine leukocyte esterase det ection by dipstickOrdered By: Dr. Ma on 07-19-2022 Leukocyte esterase Test strip Ql (U) 100 /ul Negative [facility] Urine pHOrdered By: Dr. Jennyfer hill on 07-19-2022 pH (U) 6.0 [pH] 5.0 - 8.0 [facility] Urine sediment bacteria coun t by microscopy (number/high power field)Ordered By: Dr. Ma on 07-19-2022 Bacteria LM.HPF (Urine sed) [#/Area] 0 /[HPF] None Seen [facility] Urine specific gravity measu rementOrdered By: Dr. Ma on 07-19-2022 Specific gravity (U) [Rel density] 1.010 1.002-1.030 [facility] Urobilinogen Auto test strip Ql (U)Ordered By: Dr. Ma on 07-19-2022 Urobilinogen Ql (U) Normal mg/dl Normal [facility] No Panel Informationon 07-02 Radiology Study observation (narrative) [facility] XR Cervical spine AP and Lat eral and obliqueon 07-02-2022 IMPRESSION: Cervical spine degenerative changes with multilevel disc space narrowing. Forest Worker: TACOS Transcribe Date/Time: Jul 02 2022 2:52P Dictated by : FLOYD ESPINOZA MD This examination was interpreted and the report reviewed and electronically signed by: FLOYD ESPINOZA MD on Jul 02 2022 2:55PM [facility] DIVISION OF RADIOLOGY * * *Final [...] tissues are normal. DIVISION OF RADIOLOGY Provider, [facility] - 07/02/2022 * * *Final Report* * [...] degenerative changes with multilevel disc space narrowing. Forest Worker: [facility] Transcribe Date/Time: Jul 02 2022 2:52P Dictated by : FLOYD ESPINOZA MD This examination was interpreted and the report reviewed and electronically signed by: FLOYD ESPINOZA MD on Jul 02 2022 2:55PM [facility] XR Cervical spine AP and Lat eral and obliqueOrdered By: [facility] Provider on 07-02-2022 [facility] XR Chest PA and Lateralon IMPRESSION: No acute radiographic abnormality. Forest Worker: TACOS Transcribe Date/Time: Jul 02 2022 2:50P Dictated by : FLOYD ESPINOZA MD This examination was interpreted and the report reviewed and electronically signed by: FLOYD ESPINOZA MD on Jul 02 2022 2:51PM [facility] DIVISION OF RADIOLOGY * * *Final [...] in the spine. DIVISION OF RADIOLOGY Provider, [facility] - 07/02/2022 * * *Final Report* * [...] spine. IMPRESSION IMPRESSION: No acute radiographic abnormality. Forest Worker: [facility] Transcribe Date/Time: Jul 02 2022 2:50P Dictated by : FLOYD ESPINOZA MD This examination was interpreted and the report reviewed and electronically signed by: FLOYD ESPINOZA MD on Jul 02 2022 2:51PM EST [facility] Culture, urineOrdered By: Dr Ariel Salgado on 05-15-2022 Bacteria identified Cx Nom (U) Klebsiella pneumoniae sp pneum [facility] Absolute lymphocyte countOrd ered By: Dr. Salgado on 05-13-2022 Lymphocytes Auto (Unsp spec) [#/Vol] 2.37 10*3/uL 0.83-4.51 [facility] Basophil percentageOrdered B y: Dr. Salgado on 05-13-2022 Basophil percentage 10-25 SEEN /hpf 0-5 [facility] Basophils/100 WBC (Bld) 0.5 % 0-1 [facility] Bilirubin [Mass/Vol] 0.60 mg/dL 0.20-1.00 [facility] Comment on above: For patients on eltr ombopag therapy, use of Dimension [place] TBIL is not recommended. Chloride [Moles/Vol] 108 mmol/L 98-107 [facility] Eosinophils/100 WBC (Bld) 1.9 % 0-5 [facility] Glucose [Mass/Vol] 79 mg/dL 74-106 [facility] Neutrophils (Bld) [#/Vol] 3.3 10*3/uL 2.0-7.7 [facility] Neutrophils/100 WBC (Bld) 52.7 % 47-70 [facility] Potassium [Moles/Vol] 3.7 mmol/L 3.5-5.1 [facility] Comment on above: Moderate Hemolysis, Result may be falsely increased. Protein [Mass/Vol] 6.8 g/dL 6.4-8.2 [facility] Sodium [Moles/Vol] 140 mmol/L 136-145 [facility] WBC (Bld) [#/Vol] 6.2 10*3/uL 4.4-11.0 [facility] Beta hCG serum qualOrdered B y: Dr. Salgado on 05-13-2022 Beta HCG ( test) Ql Negative [facility] Bilirubin Test strip Ql (U)O rdered By: Dr. Salgado on 05-13-2022 Bilirubin Ql (U) Negative Negative [facility] Blood erythrocytes count (nu mber/volume)Ordered By: Dr. Salgado on 05-13-2022 RBC (Bld) [#/Vol] 4.09 10*6/uL 4.2-5.4 [facility] Blood hemoglobin measurement (mass/volume)Ordered By: Dr. Salgado on 05-13-2022 Hemoglobin (Bld) [Mass/Vol] 12.7 g/dL 12.0-15.0 [facility] Blood lymphocytes/100 leukoc ytesOrdered By: Dr. Salgado on 05-13-2022 Lymphocytes/100 WBC (Bld) 38.5 % 19-41 [facility] Blood monocytes/100 leukocyt esOrdered By: Dr. Salgado on 05-13-2022 Monocytes/100 WBC (Bld) 6.2 % 0-10 [facility] Blood platelet mean volumeOr dered By: Dr. Salgado on 05-13-2022 Platelet mean volume (Bld) [Entitic vol] 10.3 fL 6.2-12.0 [facility] Determination of erythrocyte mean corpuscular volume (MCV)Ordered By: Dr. Salgado on 05-13-2022 MCV (RBC) [Entitic vol] 94.1 fL 81-99 [facility] Hematocrit Auto (Bld) [Volum e fraction]Ordered By: Dr. Salgado on 05-13-2022 Hematocrit (Bld) [Volume fraction] 38.5 % 37-47 [facility] Ketones Test strip Ql (U)Ord ered By: Dr. Salgado on 05-13-2022 Ketones Ql (U) 5 mg/dl Negative [facility] Laboratory - Chemistry and C hemistry - challengeOrdered By: Dr. Salgado on 05-13-2022 ALP [Catalytic activity/Vol] 72 U/L 45-117 [facility] ALT [Catalytic activity/Vol] 36 U/L 13-56 [facility] CO2 [Moles/Vol] 29.0 mmol/L 21.0-32.0 [facility] Globulin (S) [Mass/Vol] 3.5 g/dL 2.2-4.2 [facility] Lipase [Catalytic activity/Vol] 69 U/L 73-393 [facility] Urea nitrogen/Creatinine [Mass ratio] 16.0 mg/mg 10-20 [facility] Laboratory - Hematology and Cell countsOrdered By: Dr. Salgado on 05-13-2022 Erythrocyte distribution width (RBC) [Entitic vol] 45.3 fL 35.1-43.9 [facility] Erythrocyte distribution width (RBC) [Ratio] 13.2 % 11.6-14.6 [facility] Immature granulocytes/100 WBC (Bld) 0.200 % 0.0-0.9 [facility] Comment on above: IG% - Immature Granu locytes (promyelocytes, myelocytes and metamyelocytes) > 1% indicates that a LEFT SHIFT is Present. MCH (RBC) [Entitic mass] 31.1 pg 27.0-32.0 [facility] Nucleated RBC/100 WBC (Bld) [Ratio] 0 % 0-5 [facility] MCHC Auto (RBC) [Mass/Vol]Or dered By: Dr. Salgado on 05-13-2022 MCHC (RBC) [Mass/Vol] 33.0 g/dL 32-36 [facility] Mucus LM Ql (Urine sed)Order ed By: Dr. Salgado on 05-13-2022 Mucus Ql (Urine sed) 0 SEEN /hpf [facility] Nitrite Test strip Ql (U)Ord ered By: Dr. Salgado on 05-13-2022 Nitrite Ql (U) Positive Negative [facility] No Panel InformationOrdered By: Dr. Salgado on 05-13-2022 Estimated Creatinine Clearance Calc 92.65 ml/min [facility] Estimated GFR (MDRD) Amer 121 mL/min >60 [facility] Comment on above: GFR Calc Estimated GFR (MDRD) Non-Af Amer 100 mL/min >60 [facility] Comment on above: Non- GFR Calc Platelets bldOrdered By: Dr. Salgado on 05-13-2022 Platelets (Bld) [#/Vol] 179 10*3/uL 150-450 [facility] Protein Test strip Ql (U)Ord ered By: Dr. Salgado on 05-13-2022 Protein Ql (U) 15 mg/dl Negative [facility] Serum or plasma albumin liliana urement (mass/volume)Ordered By: Dr. Salgado on 05-13-2022 Albumin [Mass/Vol] 3.3 g/dL 3.2-5.0 [facility] Serum or plasma albumin/glob ulin mass ratioOrdered By: Dr. Salgado on 05-13-2022 Albumin/Globulin [Mass ratio] 0.9 {ratio} 0.9-2.4 [facility] Serum or plasma calcium liliana urement (mass/volume)Ordered By: Dr. Salgado on 05-13-2022 Calcium [Mass/Vol] 8.5 mg/dL 8.5-10.1 [facility] Serum or plasma creatinine m easurement (mass/volume)Ordered By: Dr. Salgado on 05-13-2022 Creatinine [Mass/Vol] 0.69 mg/dL 0.55-1.02 [facility] Comment on above: The validity of the calculated GFR & GFRAA in patients over 70 years has not been determined. Clinical correlation is essential. Serum or plasma urea nitroge n measurement (mass/volume)Ordered By: Dr. Salgado on 05-13-2022 Urea nitrogen [Mass/Vol] 11 mg/dL 7-18 [facility] Squamous epithelial cells de tection in urine sediment by light microscopyOrdered By: Dr. Salgado on 05-13-2022 Epithelial cells.squamous LM Ql (Urine sed) 0 SEEN /hpf 5-10 [facility] Thin prep Papanicolaou smear with manual screeningOrdered By: Dr. Salgaod on 05-13-2022 Thin prep Papanicolaou smear with manual screening 30 U/L 15-37 [facility] Comment on above: Moderate Hemolysis, Result may be falsely increased. Thin prep Papanicolaou smear with manual screening 3 5-15 [facility] Urine blood detectionOrdered By: Dr. Salgado on 05-13-2022 RBC Ql (U) 50 /ul Negative [facility] RBC Ql (U) 0 SEEN /hpf 0-5 [facility] Urine clarityOrdered By: Dr. Salgado on 05-13-2022 Clarity (U) Clear Clear [facility] Urine color determinationOrd ered By: Dr. Salgado on 05-13-2022 Color (U) Yellow Yellow [facility] Urine glucose detectionOrder ed By: Dr. Salgado on 05-13-2022 Glucose Ql (U) Normal mg/dl Normal [facility] Urine leukocyte esterase det ection by dipstickOrdered By: Dr. Salgado on 05-13-2022 Leukocyte esterase Test strip Ql (U) 500 /ul Negative [facility] Urine pHOrdered By: Dr. Jm merrill on 05-13-2022 pH (U) 5.0 [pH] 5.0 - 8.0 [facility] Urine sediment bacteria coun t by microscopy (number/high power field)Ordered By: Dr. Salgado on 05-13-2022 Bacteria LM.HPF (Urine sed) [#/Area] 2 /[HPF] None Seen [facility] Urine specific gravity measu rementOrdered By: Dr. Salgado on 05-13-2022 Specific gravity (U) [Rel density] 1.025 1.002-1.030 [facility] Urobilinogen Auto test strip Ql (U)Ordered By: Dr. Salgado on 05-13-2022 Urobilinogen Ql (U) Normal mg/dl Normal [facility] Absolute lymphocyte countOrd ered By: Dr. Richardson on 03-31-2022 Lymphocytes Auto (Unsp spec) [#/Vol] 1.25 10*3/uL 0.83-4.51 [facility] Basophil percentageOrdered B y: Dr. Richardson on 03-31-2022 Basophils/100 WBC (Bld) 0.5 % 0-1 [facility] Chloride [Moles/Vol] 106 mmol/L 98-107 [facility] Eosinophils/100 WBC (Bld) 3.5 % 0-5 [facility] Glucose [Mass/Vol] 82 mg/dL 74-106 [facility] Neutrophils (Bld) [#/Vol] 3.6 10*3/uL 2.0-7.7 [facility] Neutrophils/100 WBC (Bld) 66.5 % 47-70 [facility] Potassium [Moles/Vol] 4.0 mmol/L 3.5-5.1 [facility] Comment on above: Moderate Hemolysis, Result may be falsely increased. Sodium [Moles/Vol] 138 mmol/L 136-145 [facility] WBC (Bld) [#/Vol] 5.5 10*3/uL 4.4-11.0 [facility] Blood erythrocytes count (nu mber/volume)Ordered By: Dr. Richardson on 03-31-2022 RBC (Bld) [#/Vol] 4.25 10*6/uL 4.2-5.4 [facility] Blood hemoglobin measurement (mass/volume)Ordered By: Dr. Richardson on 03-31-2022 Hemoglobin (Bld) [Mass/Vol] 12.9 g/dL 12.0-15.0 [facility] Blood lymphocytes/100 leukoc ytesOrdered By: Dr. Richardson on 03-31-2022 Lymphocytes/100 WBC (Bld) 22.9 % 19-41 [facility] Blood monocytes/100 leukocyt esOrdered By: Dr. Richardson on 03-31-2022 Monocytes/100 WBC (Bld) 6.2 % 0-10 [facility] Blood platelet mean volumeOr dered By: Dr. Richardson on 03-31-2022 Platelet mean volume (Bld) [Entitic vol] 9.3 fL 6.2-12.0 [facility] Determination of erythrocyte mean corpuscular volume (MCV)Ordered By: Dr. Richardson on 03-31-2022 MCV (RBC) [Entitic vol] 92.9 fL 81-99 [facility] Hematocrit Auto (Bld) [Volum e fraction]Ordered By: Dr. Richardson on 03-31-2022 Hematocrit (Bld) [Volume fraction] 39.5 % 37-47 [facility] Laboratory - Chemistry and C hemistry - challengeOrdered By: Dr. Richardson on 03-31-2022 CO2 [Moles/Vol] 25.0 mmol/L 21.0-32.0 [facility] Magnesium [Mass/Vol] 1.5 mg/dL 1.6-2.6 [facility] Comment on above: Moderate Hemolysis, Result may be falsely increased. Urea nitrogen/Creatinine [Mass ratio] 16.7 mg/mg 10-20 [facility] Laboratory - Hematology and Cell countsOrdered By: Dr. Richardson on 03-31-2022 Erythrocyte distribution width (RBC) [Entitic vol] 44.6 fL 35.1-43.9 [facility] Erythrocyte distribution width (RBC) [Ratio] 13.2 % 11.6-14.6 [facility] Immature granulocytes/100 WBC (Bld) 0.400 % 0.0-0.9 [facility] Comment on above: IG% - Immature Granu locytes (promyelocytes, myelocytes and metamyelocytes) > 1% indicates that a LEFT SHIFT is Present. MCH (RBC) [Entitic mass] 30.4 pg 27.0-32.0 [facility] Nucleated RBC/100 WBC (Bld) [Ratio] 0 % 0-5 [facility] MCHC Auto (RBC) [Mass/Vol]Or dered By: Dr. Richardson on 03-31-2022 MCHC (RBC) [Mass/Vol] 32.7 g/dL 32-36 [facility] No Panel InformationOrdered By: Dr. Richardson on 03-31-2022 Estimated Creatinine Clearance Calc 81.96 ml/min [facility] Estimated GFR (MDRD) Amer 105 mL/min >60 [facility] Comment on above: GFR Calc Estimated GFR (MDRD) Non-Af Amer 87 mL/min >60 [facility] Comment on above: Non- GFR Calc Platelets bldOrdered By: Dr. Richardson on 03-31-2022 Platelets (Bld) [#/Vol] 201 10*3/uL 150-450 [facility] Serum or plasma calcium liliana urement (mass/volume)Ordered By: Dr. Richardson on 03-31-2022 Calcium [Mass/Vol] 8.6 mg/dL 8.5-10.1 [facility] Serum or plasma creatinine m easurement (mass/volume)Ordered By: Dr. Richardson on 03-31-2022 Creatinine [Mass/Vol] 0.78 mg/dL 0.55-1.02 [facility] Comment on above: The validity of the calculated GFR & GFRAA in patients over 70 years has not been determined. Clinical correlation is essential. Serum or plasma urea nitroge n measurement (mass/volume)Ordered By: Dr. Richardson on 03-31-2022 Urea nitrogen [Mass/Vol] 13 mg/dL 7-18 [facility] Thin prep Papanicolaou smear with manual screeningOrdered By: Dr. Richardson on 03-31-2022 Thin prep Papanicolaou smear with manual screening 7 -15 [facility] Absolute lymphocyte counton 08-22-2021 Lymphocytes Auto (Unsp spec) [#/Vol] 0.74 10*3/uL 0.83-4.51 [facility] Work Phone: Basophil percentageon 2021 Basophil percentage 2.5 mg/dL 2.5-4.9 [facility] Work Phone: Basophils/100 WBC (Bld) 0.3 % 0-1 [facility] Work Phone: Chloride [Moles/Vol] 104 mmol/L 98-107 [facility]: Eosinophils/100 WBC (Bld) 1.0 % 0-5 [facility] Work Phone: Glucose [Mass/Vol] 87 mg/dL 74-106 [facility] Work Phone: Neutrophils (Bld) [#/Vol] 2.0 10*3/uL 2.0-7.7 [facility] Work Phone: Neutrophils/100 WBC (Bld) 64.0 % 47-70 [facility] Work Phone: Potassium [Moles/Vol] 3.3 mmol/L 3.5-5.1 [facility] Work Phone: Sodium [Moles/Vol] 136 mmol/L 136-145 [facility] Work Phone: WBC (Bld) [#/Vol] 3.1 10*3/uL 4.4-11.0 [facility] Work Phone: Blood erythrocytes count (nu mber/volume)on 08-22-2021 RBC (Bld) [#/Vol] 4.43 10*6/uL 4.2-5.4 [facility] Work Phone: Blood hemoglobin measurement (mass/volume)on 08-22-2021 Hemoglobin (Bld) [Mass/Vol] 13.3 g/dL 12.0-15.0 [facility] Work Phone: Blood lymphocytes/100 leukoc yteson 08-22-2021 Lymphocytes/100 WBC (Bld) 24.0 % 19-41 [facility] Work Phone: Blood monocytes/100 leukocyt eson 08-22-2021 Monocytes/100 WBC (Bld) 10.1 % 0-10 [facility] Work Phone: [phone] Blood platelet mean volumeon 08-22-2021 Platelet mean volume (Bld) [Entitic vol] 9.9 fL 6.2-12.0 [facility] Work Phone: [phone] Determination of erythrocyte mean corpuscular volume (MCV)on 08-22-2021 MCV (RBC) [Entitic vol] 91.0 fL 81-99 [facility] Work Phone: [phone] Hematocrit Auto (Bld) [Volum e fraction]on 08-22-2021 Hematocrit (Bld) [Volume fraction] 40.3 % 37-47 [facility] Work Phone: Laboratory - Chemistry and C hemistry - challengeon 08-22-2021 CO2 [Moles/Vol] 27.0 mmol/L 21.0-32.0 [facility] Work Phone: Magnesium [Mass/Vol] 1.7 mg/dL 1.6-2.6 [facility] Work Phone: [phone] Urea nitrogen/Creatinine [Mass ratio] 8.8 mg/mg 10-20 [facility] Work Phone: [phone] Laboratory - Hematology and Cell countson 08-22-2021 Erythrocyte distribution width (RBC) [Entitic vol] 45.1 fL 35.1-43.9 [facility] Work Phone: [phone] Erythrocyte distribution width (RBC) [Ratio] 13.3 % 11.6-14.6 [facility] Work Phone: [phone] Immature granulocytes/100 WBC (Bld) 0.600 % 0.0-0.9 [facility] Work Phone: [phone] Comment on above: IG% - Immature Granu locytes (promyelocytes, myelocytes and metamyelocytes) > 1% indicates that a LEFT SHIFT is Present. MCH (RBC) [Entitic mass] 30.0 pg 27.0-32.0 [facility] Work Phone: Nucleated RBC/100 WBC (Bld) [Ratio] 0 % 0-5 [facility] Work Phone: [phone] MCHC Auto (RBC) [Mass/Vol]on 08-22-2021 MCHC (RBC) [Mass/Vol] 33.0 g/dL 32-36 [facility] Work Phone: No Panel Informationon 08-22 Estimated Creatinine Clearance Calc 113.29 ml/min [facility] Work Phone: [phone] Estimated GFR (MDRD) Amer 150 mL/min >60 [facility] Work Phone: Comment on above: GFR Calc Estimated GFR (MDRD) Non-Af Amer 124 mL/min >60 [facility] Work Phone: Comment on above: Non- GFR Calc Platelets bldon 08-22-2021 Platelets (Bld) [#/Vol] 149 10*3/uL 150-450 [facility] Work Phone: Serum or plasma calcium liliana urement (mass/volume)on 08-22-2021 Calcium [Mass/Vol] 7.6 mg/dL 8.5-10.1 [facility] Work Phone: [phone] Serum or plasma creatinine m easurement (mass/volume)on 08-22-2021 Creatinine [Mass/Vol] 0.57 mg/dL 0.55-1.02 [facility] Work Phone: Comment on above: The validity of the calculated GFR & GFRAA in patients over 70 years has not been determined. Clinical correlation is essential. Serum or plasma urea nitroge n measurement (mass/volume)on 08-22-2021 Urea nitrogen [Mass/Vol] 5 mg/dL 7-18 [facility] Work Phone: Thin prep Papanicolaou smear with manual screeningon 08-22-2021 Thin prep Papanicolaou smear with manual screening 5 5-15 [facility] Work Phone: Review by pathologiston Pathologist review Demar (Unsp spec) [Interp] Reviewed [facility] Work Phone: Comment on above: Previous reported re sult: Ananya corcoran Edited by: RGOOD on 08/21/21:1234LeukopeniaClinical correlation necessary.Jamel Rizzo M.D. 08/21/21 AMENDED REPORT 08/21/21 1234 PATH REV previously reported as: Ananya corcoran Basophil percentageon 2021 Lactate [Moles/Vol] 1.2 mmol/L 0.4-2.0 [facility] Work Phone: Basophil percentage 10-25 SEEN /hpf 0-5 [facility] Work Phone: Bilirubin Test strip Ql (U)o n 08-20-2021 Bilirubin Ql (U) Negative Negative [facility] Work Phone: Ketones Test strip Ql (U)on 08-20-2021 Ketones Ql (U) Negative Negative [facility] Work Phone: Mucus LM Ql (Urine sed)on Mucus Ql (Urine sed) 0 SEEN /hpf [facility] Work Phone: Nitrite Test strip Ql (U)on 08-20-2021 Nitrite Ql (U) Negative Negative [facility] Work Phone: Protein Test strip Ql (U)on 08-20-2021 Protein Ql (U) 30 mg/dl Negative [facility] Work Phone: Squamous epithelial cells de tection in urine sediment by light microscopyon 08-20-2021 Epithelial cells.squamous LM Ql (Urine sed) 0-5 SEEN /hpf 5-10 [facility] Work Phone: Urine blood detectionon RBC Ql (U) 150 /ul Negative [facility] Work Phone: RBC Ql (U) 0-5 SEEN /hpf 0-5 [facility] Work Phone: Urine clarityon 08-20-2021 Clarity (U) Sl. Cloudy Clear [facility] Work Phone: Urine color determinationon 08-20-2021 Color (U) Yellow Yellow [facility] Work Phone: Urine glucose detectionon Glucose Ql (U) Normal mg/dl Normal [facility] Work Phone: Urine leukocyte esterase det ection by dipstickon 08-20-2021 Leukocyte esterase Test strip Ql (U) 500 /ul Negative [facility] Work Phone: Urine pHon 08-20-2021 pH (U) 5.0 [pH] 5.0 - 8.0 [facility] Work Phone: Urine sediment bacteria coun t by microscopy (number/high power field)on 08-20-2021 Bacteria LM.HPF (Urine sed) [#/Area] RARE /hpf None Seen [facility] Work Phone: Urine specific gravity measu rementon 08-20-2021 Specific gravity (U) [Rel density] 1.015 1.002-1.030 [facility] Work Phone: Urobilinogen Auto test strip Ql (U)on 08-20-2021 Urobilinogen Ql (U) Normal mg/dl Normal [facility] Work Phone: Absolute lymphocyte counton 08-19-2021 Lymphocytes Auto (Unsp spec) [#/Vol] 1.03 10*3/uL 0.83-4.51 [facility] Work Phone: Basophil percentageon 2021 Basophil percentage 10-25 SEEN /hpf 0-5 [facility] Work Phone: Basophils/100 WBC (Bld) 0.3 % 0-1 [facility] Work Phone: Chloride [Moles/Vol] 101 mmol/L 98-107 [facility] Work Phone: Eosinophils/100 WBC (Bld) 0.2 % 0-5 [facility] Work Phone: Glucose [Mass/Vol] 97 mg/dL 74-106 [facility] Work Phone: [phone] Neutrophils (Bld) [#/Vol] 4.7 10*3/uL 2.0-7.7 [facility] Work Phone: [phone] Neutrophils/100 WBC (Bld) 72.5 % 47-70 [facility] Work Phone: [phone] Potassium [Moles/Vol] 3.1 mmol/L 3.5-5.1 [facility] Work Phone: [phone] Sodium [Moles/Vol] 135 mmol/L 136-145 [facility] Work Phone: [phone] WBC (Bld) [#/Vol] 6.5 10*3/uL 4.4-11.0 [facility] Work Phone: [phone] Bilirubin Test strip Ql (U)o n 08-19-2021 Bilirubin Ql (U) Negative Negative [facility] Work Phone: [phone] Blood erythrocytes count (nu mber/volume)on 08-19-2021 RBC (Bld) [#/Vol] 4.53 10*6/uL 4.2-5.4 [facility] Work Phone: [phone] Blood hemoglobin measurement (mass/volume)on 08-19-2021 Hemoglobin (Bld) [Mass/Vol] 13.7 g/dL 12.0-15.0 [facility] Work Phone: [phone] Blood lymphocytes/100 leukoc yteson 08-19-2021 Lymphocytes/100 WBC (Bld) 15.7 % 19-41 [facility] Work Phone: [phone] Blood monocytes/100 leukocyt eson 08-19-2021 Monocytes/100 WBC (Bld) 11.0 % 0-10 [facility] Work Phone: [phone] Blood platelet mean volumeon 08-19-2021 Platelet mean volume (Bld) [Entitic vol] 9.4 fL 6.2-12.0 [facility] Work Phone: Culture, urineon 08-19-2021 Bacteria identified Cx Nom (U) Escherichia coli [facility] Work Phone: [phone] Determination of erythrocyte mean corpuscular volume (MCV)on 08-19-2021 MCV (RBC) [Entitic vol] 91.8 fL 81-99 [facility] Work Phone: [phone] Hematocrit Auto (Bld) [Volum e fraction]on 08-19-2021 Hematocrit (Bld) [Volume fraction] 41.6 % 37-47 [facility] Work Phone: [phone] Ketones Test strip Ql (U)on 08-19-2021 Ketones Ql (U) 15 mg/dl Negative [facility] Work Phone: [phone] Laboratory - Chemistry and C hemistry - challengeon 08-19-2021 CO2 [Moles/Vol] 28.0 mmol/L 21.0-32.0 [facility] Work Phone: [phone] Magnesium [Mass/Vol] 1.1 mg/dL 1.6-2.6 [facility] Work Phone: [phone] Urea nitrogen/Creatinine [Mass ratio] 11.5 mg/mg 10-20 [facility] Work Phone: [phone] Laboratory - Hematology and Cell countson 08-19-2021 Erythrocyte distribution width (RBC) [Entitic vol] 43.6 fL 35.1-43.9 [facility] Work Phone: [phone] Erythrocyte distribution width (RBC) [Ratio] 12.9 % 11.6-14.6 [facility] Work Phone: [phone] Immature granulocytes/100 WBC (Bld) 0.300 % 0.0-0.9 [facility] Work Phone: [phone] Comment on above: IG% - Immature Granu locytes (promyelocytes, myelocytes and metamyelocytes) > 1% indicates that a LEFT SHIFT is Present. MCH (RBC) [Entitic mass] 30.2 pg 27.0-32.0 [facility] Work Phone: [phone] Nucleated RBC/100 WBC (Bld) [Ratio] 0 % 0-5 [facility] Work Phone: MCHC Auto (RBC) [Mass/Vol]on 08-19-2021 MCHC (RBC) [Mass/Vol] 32.9 g/dL 32-36 [facility] Work Phone: Mucus LM Ql (Urine sed)on Mucus Ql (Urine sed) 0 SEEN /hpf [facility] Work Phone: [phone] Nitrite Test strip Ql (U)on 08-19-2021 Nitrite Ql (U) Positive Negative [facility] Work Phone: No Panel Informationon 08-19 Estimated Creatinine Clearance Calc 105.86 ml/min [facility] Work Phone: Estimated GFR (MDRD) Amer 140 mL/min >60 [facility] Work Phone: Comment on above: GFR Calc Estimated GFR (MDRD) Non-Af Amer 116 mL/min >60 [facility] Work Phone: Comment on above: Non- GFR Calc Platelets bldon 08-19-2021 Platelets (Bld) [#/Vol] 184 10*3/uL 150-450 [facility] Work Phone: Protein Test strip Ql (U)on 08-19-2021 Protein Ql (U) 30 mg/dl Negative [facility] Work Phone: [phone] Serum or plasma calcium liliana urement (mass/volume)on 08-19-2021 Calcium [Mass/Vol] 9.2 mg/dL 8.5-10.1 [facility] Work Phone: [phone] Serum or plasma creatinine m easurement (mass/volume)on 08-19-2021 Creatinine [Mass/Vol] 0.61 mg/dL 0.55-1.02 [facility] Work Phone: Comment on above: The validity of the calculated GFR & GFRAA in patients over 70 years has not been determined. Clinical correlation is essential. Serum or plasma urea nitroge n measurement (mass/volume)on 08-19-2021 Urea nitrogen [Mass/Vol] 7 mg/dL 7-18 [facility] Work Phone: Squamous epithelial cells de tection in urine sediment by light microscopyon 08-19-2021 Epithelial cells.squamous LM Ql (Urine sed) 0 SEEN /hpf 5-10 [facility] Work Phone: Thin prep Papanicolaou smear with manual screeningon 08-19-2021 Thin prep Papanicolaou smear with manual screening 6 5-15 [facility] Work Phone: Urine blood detectionon 04-0 RBC Ql (U) 250 /ul Negative [facility] Work Phone: RBC Ql (U) 0-5 SEEN /hpf 0-5 [facility] Work Phone: Urine clarityon 08-19-2021 Clarity (U) Sl. Cloudy Clear [facility] Work Phone: Urine color determinationon 08-19-2021 Color (U) Yellow Yellow [facility] Work Phone: Urine glucose detectionon Glucose Ql (U) Normal mg/dl Normal [facility] Work Phone: Urine leukocyte esterase det ection by dipstickon 08-19-2021 Leukocyte esterase Test strip Ql (U) 500 /ul Negative [facility] Work Phone: Urine pHon 08-19-2021 pH (U) 6.0 [pH] 5.0 - 8.0 [facility] Work Phone: Urine sediment bacteria coun t by microscopy (number/high power field)on 08-19-2021 Bacteria LM.HPF (Urine sed) [#/Area] 2 /[HPF] None Seen [facility] Work Phone: Urine specific gravity measu rementon 08-19-2021 Specific gravity (U) [Rel density] 1.010 1.002-1.030 [facility] Work Phone: Urobilinogen Auto test strip Ql (U)on 04-02-2022 Urobilinogen Ql (U) Normal mg/dl Normal [facility] Work Phone: Absolute lymphocyte counton 07-25-2021 Lymphocytes Auto (Unsp spec) [#/Vol] 1.10 10*3/uL 0.83-4.51 [facility] Work Phone: Basophil percentageon 2021 Basophils/100 WBC (Bld) 0.5 % 0-1 [facility] Work Phone: Chloride [Moles/Vol] 106 mmol/L 98-107 [facility] Work Phone: Eosinophils/100 WBC (Bld) 1.8 % 0-5 [facility] Work Phone: Glucose [Mass/Vol] 90 mg/dL 74-106 [facility] Work Phone: Neutrophils (Bld) [#/Vol] 4.9 10*3/uL 2.0-7.7 [facility] Work Phone: Neutrophils/100 WBC (Bld) 73.9 % 47-70 [facility] Work Phone: Potassium [Moles/Vol] 3.9 mmol/L 3.5-5.1 [facility] Work Phone: Comment on above: Moderate Hemolysis, Result may be falsely increased. Sodium [Moles/Vol] 138 mmol/L 136-145 [facility] Work Phone: WBC (Bld) [#/Vol] 6.6 10*3/uL 4.4-11.0 [facility] Work Phone: Blood erythrocytes count (nu mber/volume)on 07-25-2021 RBC (Bld) [#/Vol] 4.57 10*6/uL 4.2-5.4 [facility] Work Phone: Blood hemoglobin measurement (mass/volume)on 07-25-2021 Hemoglobin (Bld) [Mass/Vol] 14.0 g/dL 12.0-15.0 [facility] Work Phone: Blood lymphocytes/100 leukoc yteson 07-25-2021 Lymphocytes/100 WBC (Bld) 16.6 % 19-41 [facility] Work Phone: [phone] Blood monocytes/100 leukocyt eson 07-25-2021 Monocytes/100 WBC (Bld) 6.9 % 0-10 [facility] Work Phone: [phone] Blood platelet mean volumeon 07-25-2021 Platelet mean volume (Bld) [Entitic vol] 10.6 fL 6.2-12.0 [facility] Work Phone: [phone] Determination of erythrocyte mean corpuscular volume (MCV)on 07-25-2021 MCV (RBC) [Entitic vol] 94.1 fL 81-99 [facility] Work Phone: [phone] Hematocrit Auto (Bld) [Volum e fraction]on 07-25-2021 Hematocrit (Bld) [Volume fraction] 43.0 % 37-47 [facility] Work Phone: Laboratory - Chemistry and C hemistry - challengeon 07-25-2021 CO2 [Moles/Vol] 27.0 mmol/L 21.0-32.0 [facility] Work Phone: Urea nitrogen/Creatinine [Mass ratio] 11.3 mg/mg 10-20 [facility] Work Phone: [phone] Laboratory - Hematology and Cell countson 07-25-2021 Erythrocyte distribution width (RBC) [Entitic vol] 44.8 fL 35.1-43.9 [facility] Work Phone: [phone] Erythrocyte distribution width (RBC) [Ratio] 13.0 % 11.6-14.6 [facility] Work Phone: [phone] Immature granulocytes/100 WBC (Bld) 0.300 % 0.0-0.9 [facility] Work Phone: [phone] Comment on above: IG% - Immature Granu locytes (promyelocytes, myelocytes and metamyelocytes) > 1% indicates that a LEFT SHIFT is Present. MCH (RBC) [Entitic mass] 30.6 pg 27.0-32.0 [facility] Work Phone: Nucleated RBC/100 WBC (Bld) [Ratio] 0 % 0-5 [facility] Work Phone: MCHC Auto (RBC) [Mass/Vol]on 07-25-2021 MCHC (RBC) [Mass/Vol] 32.6 g/dL 32-36 [facility] Work Phone: No Panel Informationon 07-25 Estimated Creatinine Clearance Calc 90.95 ml/min [facility] Work Phone: Estimated GFR (MDRD) Amer 117 mL/min >60 [facility] Work Phone: Comment on above: GFR Calc Estimated GFR (MDRD) Non-Af Amer 97 mL/min >60 [facility] Work Phone: Comment on above: Non- GFR Calc Platelets bldon 07-25-2021 Platelets (Bld) [#/Vol] 242 10*3/uL 150-450 [facility] Work Phone: Serum or plasma calcium liliana urement (mass/volume)on 07-25-2021 Calcium [Mass/Vol] 9.0 mg/dL 8.5-10.1 [facility] Work Phone: Serum or plasma creatinine m easurement (mass/volume)on 07-25-2021 Creatinine [Mass/Vol] 0.71 mg/dL 0.55-1.02 [facility] Work Phone: Comment on above: The validity of the calculated GFR & GFRAA in patients over 70 years has not been determined. Clinical correlation is essential. Serum or plasma urea nitroge n measurement (mass/volume)on 07-25-2021 Urea nitrogen [Mass/Vol] 8 mg/dL 7-18 [facility] Work Phone: Thin prep Papanicolaou smear with manual screeningon 07-25-2021 Thin prep Papanicolaou smear with manual screening 5 5-15 [facility] Work Phone: [phone] Absolute lymphocyte counton 05-18-2021 Lymphocytes Auto (Unsp spec) [#/Vol] 1.02 10*3/uL 0.83-4.51 [facility] Work Phone: Basophil percentageon 2020 Chloride [Moles/Vol] 108 mmol/L 98-107 [facility] Work [facility]: Eosinophils/100 WBC (Bld) 1.5 % 0-5 [facility] Work Phone: Glucose [Mass/Vol] 94 mg/dL 74-106 [facility] Work Phone: Comment on above: Please note revised GLUCOSE reference range effective 2017. Neutrophils (Bld) [#/Vol] 2.3 10*3/uL 2.0-7.7 [facility] Work Phone: Potassium [Moles/Vol] 3.4 mmol/L 3.5-5.1 [facility] Work Phone: Sodium [Moles/Vol] 140 mmol/L 136-145 [facility] Work Phone: WBC (Bld) [#/Vol] 3.9 10*3/uL 4.4-11.0 [facility] Work Phone: Basophil percentage 0-5 SEEN /hpf [facility] Work Phone: [phone] Beta hCG serum qualon 2020 Beta HCG ( test) Ql Negative [facility] Work Phone: Bilirubin Test strip Ql (U)o n 05-18-2021 Bilirubin Ql (U) Negative Negative [facility] Work Phone: Blood erythrocytes count (nu mber/volume)on 05-18-2021 RBC (Bld) [#/Vol] 4.14 10*6/uL 4.2-5.4 [facility] Work Phone: Blood hemoglobin measurement (mass/volume)on 05-18-2021 Hemoglobin (Bld) [Mass/Vol] 12.3 g/dL 12.0-15.0 [facility] Work Phone: Blood lymphocytes/100 leukoc yteson 05-18-2021 Lymphocytes/100 WBC (Bld) 26.0 % 19-41 [facility] Work Phone: Blood monocytes/100 leukocyt eson 05-18-2021 Monocytes/100 WBC (Bld) 13.5 % 0-10 [facility] Work Phone: Blood platelet mean volumeon 05-18-2021 Platelet mean volume (Bld) [Entitic vol] 9.2 fL 6.2-12.0 [facility] Work Phone: Determination of erythrocyte mean corpuscular volume (MCV)on 05-18-2021 MCV (RBC) [Entitic vol] 91.3 fL 81-99 [facility] Work Phone: Hematocrit Auto (Bld) [Volum e fraction]on 05-18-2021 Hematocrit (Bld) [Volume fraction] 37.8 % 37-47 [facility] Work Phone: Ketones Test strip Ql (U)on 05-18-2021 Ketones Ql (U) 5 mg/dl Negative [facility] Work Phone: Laboratory - Chemistry and C hemistry - challengeon 05-18-2021 CO2 [Moles/Vol] 25.0 mmol/L 21.0-32.0 [facility] Work Phone: Urea nitrogen/Creatinine [Mass ratio] 14.5 mg/mg 10-20 [facility] Work Phone: Laboratory - Hematology and Cell countson 05-18-2021 Basophils/100 WBC (Unsp spec) 0.8 % 0-1 [facility] Work Phone: Erythrocyte distribution width (RBC) [Entitic vol] 41.8 fL 35.1-43.9 [facility] Work Phone: [phone] Erythrocyte distribution width (RBC) [Ratio] 12.6 % 11.6-14.6 [facility] Work Phone: Immature granulocytes/100 WBC (Bld) 0.300 % 0.0-0.9 [facility] Work Phone: Comment on above: IG% - Immature Granu locytes (promyelocytes, myelocytes and metamyelocytes) > 1% indicates that a LEFT SHIFT is Present. MCH (RBC) [Entitic mass] 29.7 pg 27.0-32.0 [facility] Work Phone: [phone] Neutrophils/100 WBC (Bld) 57.9 % 47-70 [facility] Work Phone: [phone] Nucleated RBC/100 WBC (Bld) [Ratio] 0 % 0-5 [facility] Work Phone: [phone] MCHC Auto (RBC) [Mass/Vol]on 05-18-2021 MCHC (RBC) [Mass/Vol] 32.5 g/dL 32-36 [facility] Work Phone: [phone] Mucus LM Ql (Urine sed)on Mucus Ql (Urine sed) 1+ /hpf [facility] Work Phone: [phone] Nitrite Test strip Ql (U)on 05-18-2021 Nitrite Ql (U) Negative Negative [facility] Work Phone: [phone] No Panel Informationon 05-18 Estimated Creatinine Clearance Calc 66.57 ml/min [facility] Work Phone: [phone] Estimated GFR (MDRD) Amer 82 mL/min >60 [facility] Work Phone: [phone] Comment on above: GFR Calc Estimated GFR (MDRD) Non-Af Amer 68 mL/min >60 [facility] Work Phone: Comment on above: Non- GFR Calc Platelets bldon 05-18-2021 Platelets (Bld) [#/Vol] 182 10*3/uL 150-450 [facility] Work Phone: [phone] Protein Test strip Ql (U)on 05-18-2021 Protein Ql (U) 15 mg/dl Negative [facility] Work Phone: [phone] Serum or plasma calcium liliana urement (mass/volume)on 05-18-2021 Calcium [Mass/Vol] 8.2 mg/dL 8.5-10.1 [facility] Work Phone: Serum or plasma creatinine m easurement (mass/volume)on 05-18-2021 Creatinine [Mass/Vol] 0.97 mg/dL 0.55-1.02 [facility] Work Phone: Comment on above: The validity of the calculated GFR & GFRAA in patients over 70 years has not been determined. Clinical correlation is essential. Serum or plasma urea nitroge n measurement (mass/volume)on 05-18-2021 Urea nitrogen [Mass/Vol] 14 mg/dL 7-18 [facility] Work Phone: Squamous epithelial cells de tection in urine sediment by light microscopyon 05-18-2021 Epithelial cells.squamous LM Ql (Urine sed) 0-5 SEEN /hpf [facility] Work Phone: Thin prep Papanicolaou smear with manual screeningon 05-18-2021 Thin prep Papanicolaou smear with manual screening 7 5-15 [facility] Work Phone: Urine blood detectionon 04-21 RBC Ql (U) 25 /ul Negative [facility] Work Phone: [phone] RBC Ql (U) 0-5 SEEN /hpf [facility] Work Phone: Urine clarityon 05-18-2021 Clarity (U) Clear Clear [facility] Work Phone: Urine color determinationon 05-18-2021 Color (U) Yellow Yellow [facility] Work Phone: Urine glucose detectionon Glucose Ql (U) Normal mg/dl Normal [facility] Work Phone: Urine leukocyte esterase det ection by dipstickon 05-18-2021 Leukocyte esterase Test strip Ql (U) 100 /ul Negative [facility] Work Phone: [phone] Urine pHon 05-18-2021 pH (U) 5.0 [pH] [facility] Work Phone: Urine sediment bacteria coun t by microscopy (number/high power field)on 05-18-2021 Bacteria LM.HPF (Urine sed) [#/Area] RARE /hpf None Seen [facility] Work Phone: Urine specific gravity measu rementon 05-18-2021 Specific gravity (U) [Rel density] 1.025 [facility] Work Phone: Urobilinogen Auto test strip Ql (U)on 05-18-2021 Urobilinogen Ql (U) Normal mg/dl Normal [facility] Work Phone: Absolute lymphocyte counton 05-11-2021 Lymphocytes Auto (Unsp spec) [#/Vol] 1.77 10*3/uL 0.83-4.51 [facility] Work Phone: Basophil percentageon 2020 Basophil percentage 10-25 SEEN /hpf [facility] Work Phone: Chloride [Moles/Vol] 109 mmol/L 98-107 [facility] Work Phone: Eosinophils/100 WBC (Bld) 3.3 % 0-5 [facility] Work Phone: Glucose [Mass/Vol] 89 mg/dL 74-106 [facility] Work Phone: Comment on above: Please note revised GLUCOSE reference range effective 2017. Neutrophils (Bld) [#/Vol] 4.6 10*3/uL 2.0-7.7 [facility] Work Phone: Potassium [Moles/Vol] 3.7 mmol/L 3.5-5.1 [facility] Work Phone: Sodium [Moles/Vol] 141 mmol/L 136-145 [facility] Work Phone: WBC (Bld) [#/Vol] 7.3 10*3/uL 4.4-11.0 [facility] Work Phone: Bilirubin Test strip Ql (U)o n 05-11-2021 Bilirubin Ql (U) Negative Negative [facility] Work Phone: Blood erythrocytes count (nu mber/volume)on 05-11-2021 RBC (Bld) [#/Vol] 4.46 10*6/uL 4.2-5.4 [facility] Work Phone: Blood hemoglobin measurement (mass/volume)on 05-11-2021 Hemoglobin (Bld) [Mass/Vol] 13.3 g/dL 12.0-15.0 [facility] Work Phone: Blood lymphocytes/100 leukoc yteson 05-11-2021 Lymphocytes/100 WBC (Bld) 24.3 % 19-41 [facility] Work Phone: Blood monocytes/100 leukocyt eson 05-11-2021 Monocytes/100 WBC (Bld) 8.3 % 0-10 [facility] Work Phone: [phone] Blood platelet mean volumeon 05-11-2021 Platelet mean volume (Bld) [Entitic vol] 9.6 fL 6.2-12.0 [facility] Work Phone: Culture, urineon 05-11-2021 Bacteria identified Cx Nom (U) Presumptive Lactobacillus sp. [facility] Work Phone: [phone] Determination of erythrocyte mean corpuscular volume (MCV)on 05-11-2021 MCV (RBC) [Entitic vol] 92.4 fL 81-99 [facility] Work Phone: [phone] Hematocrit Auto (Bld) [Volum e fraction]on 05-11-2021 Hematocrit (Bld) [Volume fraction] 41.2 % 37-47 [facility] Work Phone: [phone] Ketones Test strip Ql (U)on 05-11-2021 Ketones Ql (U) Negative Negative [facility] Work Phone: Laboratory - Chemistry and C hemistry - challengeon 05-11-2021 CO2 [Moles/Vol] 29.0 mmol/L 21.0-32.0 [facility] Work Phone: [phone] Urea nitrogen/Creatinine [Mass ratio] 13.4 mg/mg 10-20 [facility] Work Phone: [phone] Laboratory - Hematology and Cell countson 05-11-2021 Basophils/100 WBC (Unsp spec) 0.7 % 0-1 [facility] Work Phone: [phone] Erythrocyte distribution width (RBC) [Entitic vol] 43.2 fL 35.1-43.9 [facility] Work Phone: [phone] Erythrocyte distribution width (RBC) [Ratio] 12.7 % 11.6-14.6 [facility] Work Phone: [phone] Immature granulocytes/100 WBC (Bld) 0.100 % 0.0-0.9 [facility] Work Phone: [phone] Comment on above: IG% - Immature Granu locytes (promyelocytes, myelocytes and metamyelocytes) > 1% indicates that a LEFT SHIFT is Present. MCH (RBC) [Entitic mass] 29.8 pg 27.0-32.0 [facility] Work Phone: [phone] Neutrophils/100 WBC (Bld) 63.3 % 47-70 [facility] Work Phone: [phone] Nucleated RBC/100 WBC (Bld) [Ratio] 0 % 0-5 [facility] Work Phone: [phone] MCHC Auto (RBC) [Mass/Vol]on 05-11-2021 MCHC (RBC) [Mass/Vol] 32.3 g/dL 32-36 [facility] Work Phone: [phone] Mucus LM Ql (Urine sed)on Mucus Ql (Urine sed) 1+ /hpf [facility] Work Phone: [phone] Nitrite Test strip Ql (U)on 05-11-2021 Nitrite Ql (U) Negative Negative [facility] Work Phone: [phone] No Panel Informationon 05-11 Estimated Creatinine Clearance Calc 71.75 ml/min [facility] Work Phone: [phone] Estimated GFR (MDRD) Amer 90 mL/min >60 [facility] Work Phone: Comment on above: GFR Calc Estimated GFR (MDRD) Non-Af Amer 74 mL/min >60 [facility] Work Phone: Comment on above: Non- GFR Calc Platelets bldon 05-11-2021 Platelets (Bld) [#/Vol] 225 10*3/uL 150-450 [facility] Work Phone: Protein Test strip Ql (U)on 05-11-2021 Protein Ql (U) 30 mg/dl Negative [facility] Work Phone: Serum or plasma calcium liliana urement (mass/volume)on 05-11-2021 Calcium [Mass/Vol] 9.4 mg/dL 8.5-10.1 [facility] Work Phone: Serum or plasma creatinine m easurement (mass/volume)on 05-11-2021 Creatinine [Mass/Vol] 0.90 mg/dL 0.55-1.02 [facility] Work Phone: Comment on above: The validity of the calculated GFR & GFRAA in patients over 70 years has not been determined. Clinical correlation is essential. Serum or plasma urea nitroge n measurement (mass/volume)on 05-11-2021 Urea nitrogen [Mass/Vol] 12 mg/dL 7-18 [facility] Work Phone: Squamous epithelial cells de tection in urine sediment by light microscopyon 05-11-2021 Epithelial cells.squamous LM Ql (Urine sed) 0-5 SEEN /hpf [facility] Work Phone: Thin prep Papanicolaou smear with manual screeningon 05-11-2021 Thin prep Papanicolaou smear with manual screening 3 5-15 [facility] Work Phone: [phone] Urine blood detectionon 04-20 RBC Ql (U) 150 /ul Negative [facility] Work Phone: [phone] RBC Ql (U) 10-25 SEEN /hpf [facility] Work Phone: [phone] Urine clarityon 05-11-2021 Clarity (U) Sl. Cloudy Clear [facility] Work Phone: Urine color determinationon 05-11-2021 Color (U) Yellow Yellow [facility] Work Phone: Urine glucose detectionon Glucose Ql (U) Normal mg/dl Normal [facility] Work Phone: Urine leukocyte esterase det ection by dipstickon 05-11-2021 Leukocyte esterase Test strip Ql (U) 100 /ul Negative [facility] Work Phone: Urine pHon 05-11-2021 pH (U) 6.0 [pH] [facility] Work Phone: Urine sediment bacteria coun t by microscopy (number/high power field)on 05-11-2021 Bacteria LM.HPF (Urine sed) [#/Area] 1 /[HPF] None Seen [facility] Work Phone: Urine specific gravity measu rementon 05-11-2021 Specific gravity (U) [Rel density] 1.020 [facility] Work Phone: Urobilinogen Auto test strip Ql (U)on 05-11-2021 Urobilinogen Ql (U) Normal mg/dl Normal [facility] Work Phone: Basophil percentageon 2020 Basophil percentage 0-5 SEEN /hpf [facility] Work Phone: Bilirubin Test strip Ql (U)o n 05-01-2021 Bilirubin Ql (U) Negative Negative [facility] Work Phone: Ketones Test strip Ql (U)on 05-01-2021 Ketones Ql (U) Negative Negative [facility] Work Phone: Laboratory - Chemistry and C hemistry - challengeon 05-01-2021 HCG ( test) Ql (U) Negative [facility] Work Phone: Comment on above: Very dilute urine sp ecimens, as indicated by a low specificgravity, may not contain customer service representative teller levels of hCG. If is still suspected, a first morning urinespecimen should be collected 48 hours later and tested. Mucus LM Ql (Urine sed)on Mucus Ql (Urine sed) 0 SEEN /hpf [facility] Work Phone: Nitrite Test strip Ql (U)on 05-01-2021 Nitrite Ql (U) Negative Negative [facility] Work Phone: Protein Test strip Ql (U)on 05-01-2021 Protein Ql (U) 30 mg/dl Negative [facility] Work Phone: Squamous epithelial cells de tection in urine sediment by light microscopyon 05-01-2021 Epithelial cells.squamous LM Ql (Urine sed) 0-5 SEEN /hpf [facility] Work Phone: Urine blood detectionon 04-19 RBC Ql (U) 50 /ul Negative [facility] Work Phone: RBC Ql (U) 0-5 SEEN /hpf [facility] Work Phone: Urine clarityon 05-01-2021 Clarity (U) Clear Clear [facility] Work Phone: Urine color determinationon 05-01-2021 Color (U) Yellow Yellow [facility] Work Phone: Urine glucose detectionon Glucose Ql (U) Normal mg/dl Normal [facility] Work Phone: Urine leukocyte esterase det ection by dipstickon 05-01-2021 Leukocyte esterase Test strip Ql (U) 100 /ul Negative [facility] Work Phone: Urine pHon 05-01-2021 pH (U) 6.0 [pH] [facility] Work Phone: Urine sediment bacteria coun t by microscopy (number/high power field)on 05-01-2021 Bacteria LM.HPF (Urine sed) [#/Area] 0 /[HPF] None Seen [facility] Work Phone: Urine specific gravity measu rementon 05-01-2021 Specific gravity (U) [Rel density] 1.025 [facility] Work Phone: Urobilinogen Auto test strip Ql (U)on 05-01-2021 Urobilinogen Ql (U) Normal mg/dl Normal [facility] Work Phone: Absolute lymphocyte counton 04-25-2021 Lymphocytes Auto (Unsp spec) [#/Vol] 1.74 10*3/uL 0.83-4.51 [facility] Work Phone: Basophil percentageon 2020 Chloride [Moles/Vol] 107 mmol/L 98-107 [facility] Work Phone: Eosinophils/100 WBC (Bld) 2.0 % 0-5 [facility] Work Phone: Glucose [Mass/Vol] 87 mg/dL 74-106 [facility] Work Phone: Comment on above: Please note revised GLUCOSE reference range effective 2017. Neutrophils (Bld) [#/Vol] 4.4 10*3/uL 2.0-7.7 [facility] Work Phone: Potassium [Moles/Vol] 4.4 mmol/L 3.5-5.1 [facility] Work Phone: Comment on above: Moderate Hemolysis, Result may be falsely increased. Sodium [Moles/Vol] 142 mmol/L 136-145 [facility] Work Phone: WBC (Bld) [#/Vol] 6.7 10*3/uL 4.4-11.0 [facility] Work Phone: Basophil percentage 0-5 SEEN /hpf [facility] Work Phone: Bilirubin Test strip Ql (U)o n 04-25-2021 Bilirubin Ql (U) 3 mg/dL Negative [facility] Work Phone: Comment on above: COLOR OF URINE MAY A FFECT DIPSTICK RESULTS. Blood erythrocytes count (nu mber/volume)on 04-25-2021 RBC (Bld) [#/Vol] 4.22 10*6/uL 4.2-5.4 [facility] Work Phone: Blood hemoglobin measurement (mass/volume)on 04-25-2021 Hemoglobin (Bld) [Mass/Vol] 12.6 g/dL 12.0-15.0 [facility] Work Phone: Blood lymphocytes/100 leukoc yteson 04-25-2021 Lymphocytes/100 WBC (Bld) 26.2 % 19-41 [facility] Work Phone: [phone] Blood monocytes/100 leukocyt eson 04-25-2021 Monocytes/100 WBC (Bld) 5.9 % 0-10 [facility] Work Phone: [phone] Blood platelet mean volumeon 04-25-2021 Platelet mean volume (Bld) [Entitic vol] 9.2 fL 6.2-12.0 [facility] Work Phone: [phone] Culture, urineon 04-25-2021 Bacteria identified Cx Nom (U) Culture exhibits no growth. [facility] Work Phone: Determination of erythrocyte mean corpuscular volume (MCV)on 04-25-2021 MCV (RBC) [Entitic vol] 92.7 fL 81-99 [facility] Work Phone: [phone] Hematocrit Auto (Bld) [Volum e fraction]on 04-25-2021 Hematocrit (Bld) [Volume fraction] 39.1 % 37-47 [facility] Work Phone: [phone] Ketones Test strip Ql (U)on 04-25-2021 Ketones Ql (U) Negative Negative [facility] Work Phone: [phone] Laboratory - Chemistry and C hemistry - challengeon 04-25-2021 CO2 [Moles/Vol] 31.0 mmol/L 21.0-32.0 [facility] Work Phone: [phone] Urea nitrogen/Creatinine [Mass ratio] 12.8 mg/mg 10-20 [facility] Work Phone: [phone] Laboratory - Hematology and Cell countson 04-25-2021 Basophils/100 WBC (Unsp spec) 0.5 % 0-1 [facility] Work Phone: [phone] Erythrocyte distribution width (RBC) [Entitic vol] 44.7 fL 35.1-43.9 [facility] Work Phone: [phone] Erythrocyte distribution width (RBC) [Ratio] 13.2 % 11.6-14.6 [facility] Work Phone: [phone] Immature granulocytes/100 WBC (Bld) 0.200 % 0.0-0.9 [facility] Work Phone: [phone] Comment on above: IG% - Immature Granu locytes (promyelocytes, myelocytes and metamyelocytes) > 1% indicates that a LEFT SHIFT is Present. MCH (RBC) [Entitic mass] 29.9 pg 27.0-32.0 [facility] Work Phone: [phone] Neutrophils/100 WBC (Bld) 65.2 % 47-70 [facility] Work Phone: [phone] Nucleated RBC/100 WBC (Bld) [Ratio] 0 % 0-5 [facility] Work Phone: [phone] MCHC Auto (RBC) [Mass/Vol]on 04-25-2021 MCHC (RBC) [Mass/Vol] 32.2 g/dL 32-36 [facility] Work Phone: Mucus LM Ql (Urine sed)on Mucus Ql (Urine sed) 0 SEEN /hpf [facility] Work Phone: [phone] Nitrite Test strip Ql (U)on 04-25-2021 Nitrite Ql (U) Positive Negative [facility] Work Phone: [phone] Panel Informationon 04-25 Estimated Creatinine Clearance Calc 92.25 ml/min [facility] Work Phone: [phone] Estimated GFR (MDRD) Amer 118 mL/min >60 [facility] Work Phone: [phone] Comment on above: GFR Calc Estimated GFR (MDRD) Non-Af Amer 98 mL/min >60 [facility] Work Phone: [phone] Comment on above: Non- GFR Calc Platelets bldon 04-25-2021 Platelets (Bld) [#/Vol] 259 10*3/uL 150-450 [facility] Work Phone: Protein Test strip Ql (U)on 04-25-2021 Protein Ql (U) 30 mg/dl Negative [facility] Work Phone: Serum or plasma calcium liliana urement (mass/volume)on 04-25-2021 Calcium [Mass/Vol] 9.0 mg/dL 8.5-10.1 [facility] Work Phone: [phone] Serum or plasma creatinine m easurement (mass/volume)on 04-25-2021 Creatinine [Mass/Vol] 0.70 mg/dL 0.55-1.02 [facility] ster [facility] Work Phone: Comment on above: The validity of the calculated GFR & GFRAA in patients over 70 years has not been determined. Clinical correlation is essential. Serum or plasma urea nitroge n measurement (mass/volume)on 04-25-2021 Urea nitrogen [Mass/Vol] 9 mg/dL 7-18 [facility] Work Phone: [phone] Squamous epithelial cells de tection in urine sediment by light microscopyon 04-25-2021 Epithelial cells.squamous LM Ql (Urine sed) 0-5 SEEN /hpf [facility] Work Phone: Thin prep Papanicolaou smear with manual screeningon 04-25-2021 Thin prep Papanicolaou smear with manual screening 4 5-15 [facility] Work Phone: Urine blood detectionon 12-0 RBC Ql (U) 250 /ul Negative [facility] Work Phone: [phone] RBC Ql (U) 25-50 SEEN /hpf [facility] Work Phone: Urine clarityon 04-25-2021 Clarity (U) Sl. Cloudy Clear [facility] Work Phone: Urine color determinationon 04-25-2021 Color (U) Tiffany Yellow [facility] Work Phone: Urine glucose detectionon Glucose Ql (U) Normal mg/dl Normal [facility] Work Phone: Urine leukocyte esterase det ection by dipstickon 04-25-2021 Leukocyte esterase Test strip Ql (U) 25 /ul Negative [facility] Work Phone: Urine pHon 04-25-2021 pH (U) 6.0 [pH] [facility] Work Phone: Urine sediment bacteria coun t by microscopy (number/high power field)on 04-25-2021 Bacteria LM.HPF (Urine sed) [#/Area] 1 /[HPF] None Seen [facility] Work Phone: Urine specific gravity measu rementon 04-25-2021 Specific gravity (U) [Rel density] 1.020 [facility] Work Phone: Urobilinogen Auto test strip Ql (U)on 04-25-2021 Urobilinogen Ql (U) 8 mg/dl Normal [facility] Work Phone: .Auto Diffon 11-12-2018 Ammonia (P) [Mass/Vol] 0.30 10 3/mcL Normal 0.15-1.00 [facility] ([place] Comment on above: Performed By: #### LINA Hassan PREGU #### [address] [address] Basophils (Bld) [#/Vol] 0.00 10 3/mcL Normal 0.00-0.19 [facility] ([place] Comment on above: Performed By: #### LINA Hassan PREGU #### [address] [address] Basophils/100 WBC (Bld) 0.6 % Normal 0.0-2.5 [facility] ([place]) Comment on above: Performed By: #### LINA Hassan PREGU #### [address] [address] Eosinophils (Bld) [#/Vol] 0.10 10 3/mcL Normal 0.00-0.40 [facility] ([place] Comment on above: Performed By: #### U A, UAMICAO, PREGU #### [address] [address] Eosinophils/100 WBC (Bld) 2.3 % Normal 0.0-7.0 [facility] ([place] Comment on above: Performed By: #### U A UAMICCHRISTINA, PREGU #### [address] [address] Lymphocytes (Bld) [#/Vol] 1.20 10 3/mcL Normal 0.77-3.85 [facility] ([place]) Comment on above: Performed By: #### U A UAMICAO, PREGU #### [address] [address] Lymphocytes/100 WBC (Bld) 33.4 % Normal 10.0-50.0 [facility] ([place] Comment on above: Performed By: #### U A UAMICCHRISTINA, PREGU #### [address] [address] Monocytes/100 WBC (Bld) 7.5 % Normal 1.7-13.0 [facility] ([place] Comment on above: Performed By: #### U ALINA, PREGU #### [address] [address] Neutrophils/100 WBC (Bld) 56.2 % Normal 37.0-80.0 [facility] ([place] Comment on above: Performed By: #### U A UAMICCHRISTINA, PREGU #### [address] [address] .GFRon 11-12-2018 GFR 148 ml/min/1.73sqm Normal [facility] ([place]) Comment on above: Result Comment: GFR [...] mL/min/1.73 square meters Performed By: #### U LINA Billingsley PREGU #### [address] [address] GFR Non- 122 ml/min/1.73sqm Normal [facility] ([place] Comment on above: Result Comment: GFR Population [...] Performed By: #### LINA Hassan PREGU #### [address] [address] .NEUABSon 11-12-2018 Neutrophils (Bld) [#/Vol] 2.00 10 3/mcL Low 2.85-6.16 [facility] ([place] Comment on above: Performed By: #### LINA Hassan PREGU #### [address] [address] CBCon 11-12-2018 Erythrocyte distribution width (RBC) [Ratio] 18.4 % High 11.5-14.5 [facility] ([place] Comment on above: Performed By: #### U LINA Billingsley PREGU #### [address] [address] Hematocrit (Bld) [Volume fraction] 31.8 % Low 37.0-47.0 [facility] ([place] Comment on above: Performed By: #### LINA Hassan PREGU #### [address] [address] Hemoglobin (Bld) [Mass/Vol] 10.3 G/dL Low 12.0-16.0 [facility] ([place] Comment on above: Performed By: #### LINA Hassan PREGU #### [address] [address] MCH (RBC) [Entitic mass] 27.9 pg Normal 27.0-31.2 [facility] ([place] Comment on above: Performed By: #### LINA Hassan PREGU #### [address] [address] MCHC (RBC) [Mass/Vol] 32.4 G/dL Low 33.0-37.0 [facility] ([place] Comment on above: Performed By: #### LINA Hassan PREGU #### [address] [address] MCV (RBC) [Entitic vol] 86.1 fL Normal 80.0-94.0 [facility] [place] Comment on above: Performed By: #### LINA Hassan PREGU #### [address] [address] Platelet mean volume (Bld) [Entitic vol] 7.8 fL Normal 7.4-10.4 [facility] ([place] Comment on above: Performed By: #### LINA Hassan, PREGU #### [address] [address] Platelets (Bld) [#/Vol] 201 10 3/mcL Normal 130-400 [facility] ([place] Comment on above: Performed By: #### LINA Hassan, PREGU #### [address] [address] RBC (Bld) [#/Vol] 3.69 10 6/mcL Low 4.20-5.40 [facility] ([place] Comment on above: Performed By: #### LINA Hassan, PREGU #### [address] [address] WBC (Bld) [#/Vol] 3.60 10 3/mcL Low 4.60-10.80 [facility] ([place] Comment on above: Performed By: #### LINA Hassan, PREGU #### [address] [address] CMPon 11-12-2018 Albumin [Mass/Vol] 2.6 G/dL Low 3.5-5.0 [facility] ([place] Comment on above: Performed By: #### LINA Hassan, PREGU #### [address] [address] Albumin/Globulin [Mass ratio] 0.9 {ratio} Low 1.1-2.5 [facility] ([place] Comment on above: Performed By: #### LINA Hassan PREGU #### [address] [address] ALP [Catalytic activity/Vol] 71 U/L Normal 40-135 [facility] ([place] Comment on above: Performed By: #### LINA Hassan PREGU #### [address] [address] ALT [Catalytic activity/Vol] 50 U/L High 10-35 [facility] ([place] Comment on above: Performed By: #### U SHAYY BillingsleyMICCHRISTINA, PREGU #### [address] [address] AST [Catalytic activity/Vol] 46 U/L High 10-40 [facility] ([place] Comment on above: Performed By: #### U LINA Billingsley, PREGU #### [address] [address] Bili Total 0.2 mg/dL Normal 0.2-1.0 [facility] ([place] Comment on above: Performed By: #### U LINA Billingsley PREGU #### [address] [address] Calcium [Mass/Vol] 7.6 mg/dL Low 8.4-10.2 [facility] ([place] Comment on above: Performed By: #### U A, UAMICAO, PREGU #### [address] [address] Chloride [Moles/Vol] 109 mmol/L High 98-107 [facility] ([place] Comment on above: Performed By: #### U A, UAMICAO, PREGU #### [address] [address] CO2 [Moles/Vol] 23 mmol/L Normal 22-29 [facility] ([place] Comment on above: Performed By: #### U A, UAMICAO, PREGU #### [address] [address] Creatinine [Mass/Vol] 0.56 mg/dL Normal 0.55-1.02 [facility] ([place] Comment on above: Performed By: #### U A, UAMICAO, PREGU #### [address] [address] Electrolyte Balance 9.0 mEq/L Normal [facility] ([place] Comment on above: Performed By: #### U A, UAMICAO, PREGU #### [address] [address] Globulin (S) [Mass/Vol] 2.9 G/dL Normal [facility] [place] Comment on above: Performed By: #### U A, UAMICAO, PREGU #### [address] [address] Glucose [Mass/Vol] 83 mg/dL Normal 70-105 [facility] ([place] Comment on above: Performed By: #### U A, UAMICAO, PREGU #### [address] [address] Potassium [Moles/Vol] 3.7 mmol/L Normal 3.5-5.1 [facility] [place] Comment on above: Performed By: #### LINA Hassan PREGU #### [address] [address] Protein [Mass/Vol] 5.5 G/dL Low 6.4-8.2 [facility] ([place] Comment on above: Performed By: #### LINA Hassan PREGU #### [address] [address] Sodium [Moles/Vol] 141 mmol/L Normal 136-145 [facility] ([place] Comment on above: Performed By: #### LINA Hassan PREGU #### [address] [address] Urea nitrogen [Mass/Vol] 8 mg/dL Normal 7-18 [facility] ([place] Comment on above: Performed By: #### LINA Hassan PREGU #### [address] [address] Urea nitrogen/Creatinine [Mass ratio] 14 ratio Normal 7-27 [facility] ([place] Comment on above: Performed By: #### LINA Hassan PREGU #### [address] [address] [address] ABD/PELVIS W/ IV CONTRAST ONLYon 11-12-2018 [...] PM Sign Date: 11/12/2018 12:45:19 PM Normal [facility] ([place]) MGon 11-12-2018 Magnesium [Mass/Vol] 1.8 mg/dL Normal 1.8-2.4 [facility] ([place] Comment on above: Performed By: #### LINA Hassan PREGU #### [address] [place], [place] [address] Magnesium [Mass/Vol] 2.1 mg/dL Normal 1.8-2.4 [facility] ([place] Comment on above: Performed By: #### LINA Hassan PREGU #### Rad[address] [address] .Auto Diffon 11-11-2018 Ammonia (P) [Mass/Vol] 0.30 10 3/mcL Normal 0.15-1.00 [facility] ([place] Comment on above: Performed By: #### LINA Hassan PREGU #### [address] [address] Basophils (Bld) [#/Vol] 0.00 10 3/mcL Normal 0.00-0.19 [facility] ([place] Comment on above: Performed By: #### U ASHAYYMICCHRISTINA, PREGU #### [address] [address] Basophils/100 WBC (Bld) 0.7 % Normal 0.0-2.5 [facility] ([place]) Comment on above: Performed By: #### U A UAMICCHRISTINA, PREGU #### [address] [address] Eosinophils (Bld) [#/Vol] 0.10 10 3/mcL Normal 0.00-0.40 [facility] ([place]) Comment on above: Performed By: #### U A UAMICCHRISTINA, PREGU #### [address] [address] Eosinophils/100 WBC (Bld) 1.7 % Normal 0.0-7.0 [facility] ([place]) Comment on above: Performed By: #### LINA Hassan PREGU #### [address] [address] Lymphocytes (Bld) [#/Vol] 1.50 10 3/mcL Normal 0.77-3.85 [facility] ([place] Comment on above: Performed By: #### U A UAMICCHRISTINA, PREGU #### [address] [address] Lymphocytes/100 WBC (Bld) 26.4 % Normal 10.0-50.0 [facility] ([place] Comment on above: Performed By: #### U ALINA, PREGU #### [address] [address] Monocytes/100 WBC (Bld) 5.8 % Normal 1.7-13.0 [facility] ([place]) Comment on above: Performed By: #### U A UAMICCHRISTINA, PREGU #### [address] [address] Neutrophils/100 WBC (Bld) 65.4 % Normal 37.0-80.0 [facility] ([place] Comment on above: Performed By: #### U A UAMICCHRISTINA PREGU #### Radha [address] [address] .GFRon 11-11-2018 GFR 107 ml/min/1.73sqm Normal [facility] ([place] Comment on above: Result Comment: GFR Population [...] square meters Performed By: #### U A, UAMICCHRISTINA, PREGU #### Radha [address] [address] GFR Non- 88 ml/min/1.73sqm Normal [facility] ([place] Comment on above: Result Comment: GFR Population [...] By: #### U A, UAMICAO, PREGU #### [place] [address] .NEUABSon 11-11-2018 Neutrophils (Bld) [#/Vol] 3.80 10 3/mcL Normal 2.85-6.16 [facility] ([place] Comment on above: Performed By: #### U A, UAMICAO, PREGU #### [place] [address] .Urinalysis Microscopic (AO) on 11-11-2018 RBC (U) [#/Vol] None Seen Normal None Seen [facility] [place] Comment on above: Performed By: #### U A, UAMICAO, PREGU #### [place] [address] UA Bacteria Trace [facility] ([place] Comment on above: Performed By: #### U A, UAMICAO, PREGU #### [place] [address] UA CA Ox Crystal 2+ /hpf Normal [facility] ([place] Comment on above: Performed By: #### U A, UAMICAO, PREGU #### [place] [address] UA Mucous 3+ /hpf Normal [facility] ([place] Comment on above: Performed By: #### U A, UAMICAO, PREGU #### [place] [address] UA Squam Epithelial 0-5 None Seen [facility] ([place] Comment on above: Performed By: #### U A, UAMICAO, PREGU #### [place] [address] UA WBC 0-5 None Seen [facility] ([place] Comment on above: Performed By: #### U A, UAMICAO, PREGU #### [place] [address] CBCon 11-11-2018 Erythrocyte distribution width (RBC) [Ratio] 18.0 % High 11.5-14.5 [facility] ([place] Comment on above: Performed By: #### LINA Hassan PREGU #### [address] [address] Hematocrit (Bld) [Volume fraction] 38.4 % Normal 37.0-47.0 [facility] ([place] Comment on above: Performed By: #### LINA Hassan, PREGU #### [address] [address] Hemoglobin (Bld) [Mass/Vol] 12.4 G/dL Normal 12.0-16.0 [facility] ([place] Comment on above: Performed By: #### LINA Hassan PREGU #### [address] [address] MCH (RBC) [Entitic mass] 27.5 pg Normal 27.0-31.2 [facility] ([place] Comment on above: Performed By: #### LINA Hassan PREGU #### [address] [address] MCHC (RBC) [Mass/Vol] 32.3 G/dL Low 33.0-37.0 [facility] ([place] Comment on above: Performed By: #### LINA Hassan PREGU #### [address] [address] MCV (RBC) [Entitic vol] 85.3 fL Normal 80.0-94.0 [facility] ([place] Comment on above: Performed By: #### LINA Hassan PREGU #### [address] [address] Platelet mean volume (Bld) [Entitic vol] 7.2 fL Low 7.4-10.4 [facility] ([place] Comment on above: Performed By: #### LINA Hassan, PREGU #### [address] [address] Platelets (Bld) [#/Vol] 299 10 3/mcL Normal 130-400 [facility] ([place] Comment on above: Performed By: #### LINA Hassan PREGU #### [address] [address] RBC (Bld) [#/Vol] 4.50 10 6/mcL Normal 4.20-5.40 [facility] ([place] Comment on above: Performed By: #### LINA Hassan, PREGU #### [address] [address] WBC (Bld) [#/Vol] 5.80 10 3/mcL Normal 4.60-10.80 [facility] ([place] Comment on above: Performed By: #### LINA Hassan PREGU #### [address] [address] CMPon 11-11-2018 Albumin [Mass/Vol] 3.6 G/dL Normal 3.5-5.0 [facility] ([place] Comment on above: Performed By: #### LINA Hassan PREGU #### [address] [address] Albumin/Globulin [Mass ratio] 0.9 {ratio} Low 1.1-2.5 [facility] ([place] Comment on above: Performed By: #### LINA Hassan PREGU #### [address] [address] ALP [Catalytic activity/Vol] 93 U/L Normal 40-135 [facility] ([place] Comment on above: Performed By: #### LINA Hassan PREGU #### [address] [address] ALT [Catalytic activity/Vol] 59 U/L High 10-35 [facility] ([place] Comment on above: Performed By: #### LINA Hassan, PREGU #### [address] [address] AST [Catalytic activity/Vol] 47 U/L High 10-40 [facility] ([place] Comment on above: Performed By: #### U A, UAMICAO, PREGU #### [address] [address] Bili Total 0.4 mg/dL Normal 0.2-1.0 [facility] ([place] Comment on above: Performed By: #### U A, UAMICAO, PREGU #### [address] [address] Calcium [Mass/Vol] 9.2 mg/dL Normal 8.4-10.2 [facility] ([place] Comment on above: Performed By: #### U A, UAMICAO, PREGU #### [address] [address] Chloride [Moles/Vol] 105 mmol/L Normal 98-107 [facility] ([place] Comment on above: Performed By: #### U A, UAMICAO, PREGU #### [address] [address] CO2 [Moles/Vol] 23 mmol/L Normal 22-29 [facility] ([place] Comment on above: Performed By: #### U A, UAMICAO, PREGU #### [address] [address] Creatinine [Mass/Vol] 0.74 mg/dL Normal 0.55-1.02 [facility] [place] Comment on above: Performed By: #### U A, UAMICAO, PREGU #### [address] [address] Electrolyte Balance 11.0 mEq/L Normal [facility] ([place] Comment on above: Performed By: #### U A, UAMICAO, PREGU #### [address] [address] Globulin (S) [Mass/Vol] 3.9 G/dL Normal [facility] [place] Comment on above: Performed By: #### U A, UAMICAO, PREGU #### [address] [address] Glucose [Mass/Vol] 88 mg/dL Normal 70-105 [facility] ([place] Comment on above: Performed By: #### U A, UAMICAO, PREGU #### [address] [address] Potassium [Moles/Vol] 3.8 mmol/L Normal 3.5-5.1 [facility] ([place] Comment on above: Performed By: #### U A, UAMICAO, PREGU #### [address] [address] Protein [Mass/Vol] 7.5 G/dL Normal 6.4-8.2 [facility] ([place] Comment on above: Performed By: #### U A UAMICAO, PREGU #### [address] [address] Sodium [Moles/Vol] 139 mmol/L Normal 136-145 [facility] ([place] Comment on above: Performed By: #### U A UAMICAO, PREGU #### [address] [address] Urea nitrogen [Mass/Vol] 11 mg/dL Normal 7-18 [facility] ([place] Comment on above: Performed By: #### U A UAMICAO, PREGU #### [address] [address] Urea nitrogen/Creatinine [Mass ratio] 15 ratio Normal 7-27 [facility] ([place] Comment on above: Performed By: #### U A UAMICAO, PREGU #### [address] [address] MGon 11-11-2018 Magnesium [Mass/Vol] 1.3 mg/dL Low 1.8-2.4 [facility] ([place] Comment on above: Performed By: #### U A UAMICAO, PREGU #### [address] [address] PREGUon 11-11-2018 HCG ( test) Ql (U) Negative Normal [facility] ([place] Comment on above: Performed By: #### U A, UAMICAO, PREGU #### [place] [address] test (u) int HCG not detected. [facility] [place] Comment on above: Performed By: #### U A, UAMICAO, PREGU #### [address] [address] UAon 11-11-2018 Color (U) Yellow Normal [facility] ([place]) Comment on above: Performed By: #### U A, UAMICAO, PREGU #### [place] [address] Glucose (U) [Mass/Vol] Negative Normal Negative [facility] ([place] Comment on above: Performed By: #### U A, UAMICAO, PREGU #### [place] [address] Ketones Ql (U) 15 mg/dL Negative [facility] [place] Comment on above: Performed By: #### U A, UAMICAO, PREGU #### [place] [address] UA Appear Slightly Cloudy Clear [facility] [place] Comment on above: Performed By: #### U A, UAMICAO, PREGU #### [place] [id number] UA Blood Negative Normal Negative [facility] [place] Comment on above: Performed By: #### U A, UAMICAO, PREGU #### [place] [address] UA Leuk Est Negative Normal Negative [facility] [place] Comment on above: Performed By: #### U A, UAMICAO, PREGU #### [place] [address] UA Nitrite Negative Normal Negative [facility] [place] Comment on above: Performed By: #### U A, UAMICAO, PREGU #### [place] [address] UA pH 6.0 Normal 5.0 - 8.0 [facility] [place] Comment on above: Performed By: #### U A, UAMICAO, PREGU #### [address] [address] UA Protein 30 mg/dL Normal Negative [facility] [place] Comment on above: Performed By: #### U A, UAMICAO, PREGU #### [address] [address] UA Spec Grav >=1.030 1.015-1.025 [facility] ([place] Comment on above: Performed By: #### U A, UAMICAO, PREGU #### [address] [address] UA Specimen Type Clean Catch Normal [facility] [place] Comment on above: Performed By: #### U A, UAMICAO, PREGU #### [address] [address] UA Urobilinogen 0.2 E.U./dL Normal 0.2-1.0 [facility] [place] Comment on above: Performed By: #### U A, UAMICAO, PREGU #### [place] [address] Urobilinogen Qn (U) Negative Normal Negative [facility] ([place] Comment on above: Performed By: #### U A, UAMICAO, PREGU #### [place] [address] XR ABDOMEN 2 VIEWS W/ DECUB/ ERECTon [...] PM Sign Date: 11/11/2018 3:56:17 PM Normal [facility] ([place]) .Auto Diffon 08-13-2018 Ammonia (P) [Mass/Vol] 0.30 10 3/mcL Normal 0.15-1.00 [facility] ([place] Comment on above: Performed By: #### GLORY GALICIA ANEU #### [address] [address] Basophils (Bld) [#/Vol] 0.00 10 3/mcL Normal 0.00-0.19 [facility] ([place] Comment on above: Performed By: #### GLORY GALICIA ANEU #### [address] [address] Basophils/100 WBC (Bld) 0.7 % Normal 0.0-2.5 [facility] [place] Comment on above: Performed By: #### GLORY GALICIA ANEU #### [address] [address] Eosinophils (Bld) [#/Vol] 0.10 10 3/mcL Normal 0.00-0.40 [facility] ([place] Comment on above: Performed By: #### GLORY GALICIA, ANEU #### [address] [address] Eosinophils/100 WBC (Bld) 1.2 % Normal 0.0-7.0 [facility] [place] Comment on above: Performed By: #### GLORY GALICIA, ANEU #### [address] [address] Lymphocytes (Bld) [#/Vol] 1.90 10 3/mcL Normal 0.77-3.85 [facility] [place] Comment on above: Performed By: #### C GLORY HERNÁNDEZ, ANEU #### [address] [address] Lymphocytes/100 WBC (Bld) 37.0 % Normal 10.0-50.0 [facility] [place] ([place] Comment on above: Performed By: #### C GLORY HERNÁNDEZ, ANEU #### [address] [address] Monocytes/100 WBC (Bld) 6.0 % Normal 1.7-13.0 [facility] ([place]) Comment on above: Performed By: #### GLORY GALICIA, ANEU #### [address] [address] Neutrophils/100 WBC (Bld) 55.1 % Normal 37.0-80.0 [facility] [place] Comment on above: Performed By: #### GLORY GALICIA, ANEU #### [address] [address] .NEUABSon 08-13-2018 Neutrophils (Bld) [#/Vol] 2.90 10 3/mcL Normal 2.85-6.16 [facility] [place] Comment on above: Performed By: #### C GLORY HERNÁNDEZ, ANEU #### [address] [address] .Urinalysis Microscopic (AO) on 08-13-2018 RBC (U) [#/Vol] 15-25 None Seen [facility] [place] ([place]) Comment on above: Performed By: #### U A, UAMICAO #### [place] [address] #### PREGU #### [address] [address] UA Squam Epithelial 0-5 None Seen [facility] [place] Comment on above: Performed By: #### U A, UAMICAO #### [place] [address] #### PREGU #### [address] [address] UA WBC None Seen Normal None Seen [facility] [place] Comment on above: Performed By: #### U SHAYY BillingsleyMICAO #### [facility] [address] [place] [address] #### PREGU #### [address] [address] CBCon 08-13-2018 Erythrocyte distribution width (RBC) [Ratio] 13.9 % Normal 11.5-14.5 [facility] [place] Comment on above: Performed By: #### C GLORY HERNÁNDEZ ANEU #### [address] [address] Hematocrit (Bld) [Volume fraction] 25.8 % Low 37.0-47.0 [facility] [place] Comment on above: Performed By: #### C GLORY HERNÁNDEZ, ANEU #### [address] [address] Hemoglobin (Bld) [Mass/Vol] 8.5 G/dL Low 12.0-16.0 [facility] [place] Comment on above: Performed By: #### GLORY GALICIA ANEU #### [address] [address] MCH (RBC) [Entitic mass] 29.0 pg Normal 27.0-31.2 [facility] [place] Comment on above: Performed By: #### C GLORY HERNÁNDEZ, ANEU #### [address] [address] MCHC (RBC) [Mass/Vol] 33.0 G/dL Normal 33.0-37.0 [facility] ([place] Comment on above: Performed By: #### GLORY GALICIA, ANEU #### [address] [address] MCV (RBC) [Entitic vol] 87.9 fL Normal 80.0-94.0 A [facility] [place] Comment on above: Performed By: #### GLORY GALICIA, ANEU #### [address] [address] Platelet mean volume (Bld) [Entitic vol] 7.6 fL Normal 7.4-10.4 [facility] [place] Comment on above: Performed By: #### GLORY GALICIA, ANEU #### [address] [address] Platelets (Bld) [#/Vol] 280 10 3/mcL Normal 130-400 [facility] [place] Comment on above: Performed By: #### C GLORY HERNÁNDEZ, ANEU #### [address] [address] RBC (Bld) [#/Vol] 2.94 10 6/mcL Low 4.20-5.40 [facility] ([place]) Comment on above: Performed By: #### C GLORY HERNÁNDEZ, ANEU #### [address] [address] WBC (Bld) [#/Vol] 5.30 10 3/mcL Normal 4.60-10.80 [facility] ([place] Comment on above: Performed By: #### C GLORY HERNÁNDEZ, ANEU #### [address] [address] PREGUon 08-13-2018 HCG ( test) Ql (U) Negative Normal [facility] [place] Comment on above: Performed By: #### U A UAMICAO #### [place] [address] #### PREGU #### [address] [address] test (u) int HCG not detected. [facility] [place] Comment on above: Performed By: #### U A UAMICAO #### [place] [address] #### PREGU #### [address] [address] UAon 08-13-2018 Color (U) Red [facility] [place] Comment on above: Performed By: #### U A UAMICAO #### [place] [address] #### PREGU #### [address] [address] Glucose (U) [Mass/Vol] Negative Normal Negative [facility] ([place] Comment on above: Performed By: #### U A, UAMICAO #### [place] [address] #### PREGU #### [address] [address] Ketones Ql (U) Negative Normal Negative [facility] [place] ([place]) Comment on above: Performed By: #### U A, UAMICAO #### [place] [address] #### PREGU #### [address] [address] UA Appear Slightly Cloudy Clear [facility] [place] Comment on above: Performed By: #### U A, UAMICAO #### [place] [address] #### PREGU #### [address] [address] UA Blood Large Negative [facility] [place] Comment on above: Performed By: #### U A, UAMICAO #### [place] [address] #### PREGU #### [address] [address] UA Leuk Est Negative Normal Negative [facility] [place] Comment on above: Performed By: #### U A, UAMICAO #### [place] [address] #### PREGU #### [address] [address] UA Nitrite Negative Normal Negative [facility] [place] Comment on above: Performed By: #### U A, UAMICAO #### [place] [address] #### PREGU #### [address] [address] UA pH 6.0 Normal 5.0 - 8.0 [facility] [place] Comment on above: Performed By: #### U A, UAMICAO #### [place] [address] #### PREGU #### [address] [address] UA Protein 100 mg/dL Negative [facility] [place] Comment on above: Performed By: #### U A, UAMICAO #### [place] [address] #### PREGU #### [address] [address] UA Spec Grav 1.025 Normal 1.015-1.025 [facility] [place] Comment on above: Performed By: #### U A, UAMICAO #### [place] [address] #### PREGU #### [address] [address] UA Specimen Type Clean Catch Normal [facility] [place] Comment on above: Performed By: #### U A, UAMICAO #### [place] [address] #### PREGU #### [address] [address] UA Urobilinogen 0.2 E.U./dL Normal 0.2-1.0 [facility] [place] Comment on above: Performed By: #### U A, UAMICAO #### [place] [address] #### PREGU #### [address] [address] Urobilinogen Qn (U) Negative Normal Negative [facility] [place] Comment [place] above: Performed By: #### U A, UAMICAO #### [place] [address] #### PREGU #### [address] [address] .Urinalysis Microscopic (AO) on 01-09-2018 RBC (U) [#/Vol] 15-25 None Seen [facility] [place] Comment [place] above: Performed By: #### U A, UAMICAO, PREGU #### [address] [address] UA Squam Epithelial 0-5 None Seen [facility] [place] Comment [place] above: Performed By: #### U A, UAMICAO, PREGU #### [address] [address] UA WBC None Seen Normal None Seen [facility] [place] Comment on above: Performed By: #### U A, UAMICAO, PREGU #### [place] [address] PREGUon 01-09-2018 HCG ( test) Ql (U) Negative Normal [facility] [place] Comment on above: Performed By: #### U A, UAMICAO, PREGU #### [address] [address] test (u) int HCG not detected. [facility] [place] Comment [place] above: Performed By: #### U A, UAMICAO, PREGU #### [address] [address] UAon 01-09-2018 Color (U) Yellow Normal [facility] [place] Comment [place] above: Performed By: #### U A, UAMICAO, PREGU #### [address] [address] Glucose (U) [Mass/Vol] Negative Normal Negative [facility] [place] Comment [place] above: Performed By: #### U A, UAMICAO, PREGU #### [address] [address] Ketones Ql (U) Negative Normal Negative [facility] [place] Comment [place] above: Performed By: #### U A, UAMICAO, PREGU #### [place] [address] UA Appear Clear Normal Clear [facility] [place] Comment [place] above: Performed By: #### U A, UAMICAO, PREGU #### [place] [id number] UA Blood Large Negative [facility] [place] Comment [place] above: Performed By: #### U A, UAMICAO, PREGU #### [place] [address] UA Leuk Est Negative Normal Negative [facility] [place] Comment on above: Performed By: #### U A, UAMICAO, PREGU #### [place] [address] UA Nitrite Negative Normal Negative [facility] [place] Comment on above: Performed By: #### U A, UAMICAO, PREGU #### [place] [address] UA pH 6.5 [facility] [place] Comment [place] above: Performed By: #### U A, UAMICAO, PREGU #### [place] [address] UA Protein Negative Normal Negative [facility] [place] Comment on above: Performed By: #### U A, UAMICAO, PREGU #### [place] [address] UA Spec Grav 1.015 [facility] [place] Comment [place] above: Performed By: #### U A, UAMICAO, PREGU #### [place] [address] UA Specimen Type Clean Catch [facility] [place] Comment on above: Performed By: #### U A, UAMICAO, PREGU #### [place] [address] UA Urobilinogen 0.2 E.U./dL [facility] [place] Comment [place] above: Performed By: #### U A, UAMICAO, PREGU #### [address] [place] [address] [place], [place] [address] Urobilinogen Qn (U) Negative Normal Negative [facility] ([place]) Comment on above: Performed By: #### U LINA Billingsley PREGMauri #### [address] [place] [address] [place], [place] [address] [place] PELVIS NON-OB W/TRANSVAGI NALon 01-09-2018 US [...] PM Sign Date: 01/09/2018 6:03:39 PM Normal [facility] [place] ([place]) Culture, urine Bacteria identified Cx Nom (U) Escherichia coli [facility] Work Phone: Bacteria identified Cx Nom (U) Positive [facility] Work Phone: Laboratory - Microbiology an d Antimicrobial susceptibility Bacteria identified Cx Nom (Bld) No growth in 5 days. [facility] Work Phone: Vital Signs Date Time Vital Sign Value Performing Clinician Facility 01-20-2025 12:54-0400 Body height 160 cm [facility] Work Phone: [facility] 01-20-2025 12:54-0400 Body mass index (BMI) [Ratio] 27.1 kg/m2 [facility] Work Phone: [facility] 01-20-2025 12:54-0400 Body temperature 98.1 [degF] [facility] Work Phone: [facility] 01-20-2025 12:54-0400 Body weight 69.4 kg [facility] Work Phone: [facility] 01-20-2025 12:54-0400 Diastolic blood pressure 71 mm[Hg] [facility] Work Phone: [facility] 01-20-2025 12:54-0400 Heart rate 63 /min [facility] Work Phone: [facility] 01-20-2025 12:54-0400 SaO2% (BldA) [Mass fraction] 98 % [facility] Work Phone: [facility] 01-20-2025 12:54-0400 Systolic blood pressure 108 mm[Hg] [facility] Work Phone: [facility] 01-20-2025 09:53-0400 Body temperature 98.3 [degF] Dr. Starr Motlye MD Work Phone: [facility] 01-20-2025 09:53-0400 Diastolic blood pressure 78 mm[Hg] Dr. Starr Motley MD Work Phone: [facility] 01-20-2025 09:53-0400 Heart rate 89 /min Dr. Starr Motley MD Work Phone: [facility] 01-20-2025 09:53-0400 Respiratory rate 16 /min Dr. Starr Motley MD Work Phone: 9(423)110-285657 [place] [address] 01-20-2025 09:53-0400 SaO2% (BldA) [Mass fraction] 100 % Dr. Starr Motley MD Work Phone: 1(018)135-264157 [place] [address] 01-20-2025 09:53-0400 Systolic blood pressure 132 mm[Hg] Dr. Starr Motley MD Work Phone: 7(913)934-952157 [place] [address] 01-20-2025 08:51-0400 Body height 162.[address] Starr Motley MD Work Phone: 2(749)716-499357 [place] [address] 01-20-2025 08:51-0400 Body mass index (BMI) [Ratio] 27.3 kg/m2 Dr. Starr Motley MD Work Phone: 0(266)553-700557 [place] [address] 01-20-2025 08:51-0400 Body weight 72.[address] Starr Motley MD Work Phone: 8(145)022-325957 [place] [address] 01-15-2025 20:23-0400 Body height 162.[address] Starr Motley MD Work Phone: 9(108)949-443457 [place] [address] 01-15-2025 20:23-0400 Body mass index (BMI) [Ratio] 26.4 kg/m2 Dr. Starr Motley MD Work Phone: 7(071)399-645857 [place] [address] 01-15-2025 20:23-0400 Body temperature 97.8 [degF] Dr. Starr Motley MD Work Phone: 6(630)862-548857 [place] [address] 01-15-2025 20:23-0400 Body weight 69.[address] Starr Motley MD Work Phone: 2(695)346-453757 [place] [address] 01-15-2025 20:23-0400 Diastolic blood pressure 79 mm[Hg] Dr. Starr Motley MD Work Phone: 5(428)957-482257 [place] [address] 01-15-2025 20:23-0400 Heart rate 66 /min Dr. Starr Motley MD Work Phone: [facility] 01-15-2025 20:23-0400 Respiratory rate 15 /min Dr. Starr Motley MD Work Phone: [facility] 01-15-2025 20:23-0400 SaO2% (BldA) [Mass fraction] 97 % Dr. Starr Motley MD Work Phone: [facility] 01-15-2025 20:23-0400 Systolic blood pressure 108 mm[Hg] Dr. Starr Motley MD Work Phone: [facility] 12-30-2024 13:55-0400 Body height 162.6 cm Vikki Elmore MD Work Phone: [facility] 12-30-2024 13:55-0400 Body mass index (BMI) [Ratio] 26.26 kg/m2 Vikki Elmore MD Work Phone: [facility] 12-30-2024 13:55-0400 Body temperature 99.9 [degF] Vikki Elmore MD Work Phone: [facility] 12-30-2024 13:55-0400 Body weight 69.4 kg Vikki Elmore MD Work Phone: [facility] 12-30-2024 13:55-0400 Diastolic blood pressure 81 mm[Hg] Vikki Elmore MD Work Phone: [facility] 12-30-2024 13:55-0400 Heart rate 60 /min Vikki Elmore MD Work Phone: [facility] 12-30-2024 13:55-0400 Systolic blood pressure 123 mm[Hg] Vikki Elmore MD Work Phone: [facility] 11-13-2024 14:02-0400 Body height 162.[address] Starr Motley MD Work Phone: [facility] 11-13-2024 14:02-0400 Body mass index (BMI) [Ratio] 25.2 kg/m2 Dr. Starr Motley MD Work Phone: [facility] 11-13-2024 14:02-0400 Body temperature 97.9 [degF] Dr. Starr Motley MD Work Phone: [facility] 11-13-2024 14:02-0400 Body weight 66.[address] Starr Motley MD Work Phone: [facility] 11-13-2024 14:02-0400 Diastolic blood pressure 80 mm[Hg] Dr. Starr Motley MD Work Phone: [facility] 11-13-2024 14:02-0400 Heart rate 67 /min Dr. Starr Motley MD Work Phone: [facility] 11-13-2024 14:02-0400 Respiratory rate 18 /min Dr. Starr Motley MD Work Phone: [facility] 11-13-2024 14:02-0400 SaO2% (BldA) [Mass fraction] 100 % Dr. Starr Motley MD Work Phone: [facility] 11-13-2024 14:02-0400 Systolic blood pressure 164 mm[Hg] Dr. Starr Motley MD Work Phone: [facility] 11-09-2024 12:36-0400 Body mass index (BMI) [Ratio] 26.41 kg/m2 Mayank Arizmendi APRN.LEGAL FILE CLERK Work Phone: [facility] 11-09-2024 12:36-0400 Body temperature 99.1 [degF] Mayank Arizmendi APRN.LEGAL FILE CLERK Work Phone: [facility] 11-09-2024 12:36-0400 Body weight 69.8 kg Mayank Arizmendi APRN.LEGAL FILE CLERK Work Phone: [facility] 11-09-2024 12:36-0400 Diastolic blood pressure 76 mm[Hg] Mayank Arizmendi APRN.LEGAL FILE CLERK Work Phone: [facility] 11-09-2024 12:36-0400 Heart rate 90 /min Mayank Arizmendi APRN.LEGAL FILE CLERK Work Phone: [facility] 11-09-2024 12:36-0400 Respiratory rate 20 /min Mayank Arizmendi LOGISTICS PROJECT MANAGER.LEGAL FILE CLERK Work Phone: [facility] 11-09-2024 12:36-0400 SaO2% (BldA) [Mass fraction] 98 % Mayank Arizmendi LOGISTICS PROJECT MANAGER.LEGAL FILE CLERK Work Phone: [facility] 11-09-2024 12:36-0400 Systolic blood pressure 120 mm[Hg] Mayank Arizmendi LOGISTICS PROJECT MANAGER.LEGAL FILE CLERK Work Phone: [facility] 10-20-2024 19:35-0400 Body mass index (BMI) [Ratio] 26.49 kg/m2 Krislyn Aberegg PA Work Phone: [facility] 10-20-2024 19:35-0400 Body temperature 97.9 [degF] Krislyn Aberegg PA Work Phone: [facility] 10-20-2024 19:35-0400 Body weight 70 kg Krislyn Aberegg PA Work Phone: [facility] 10-20-2024 19:35-0400 Diastolic blood pressure 74 mm[Hg] Krislyn Aberegg PA Work Phone: [facility] 10-20-2024 19:35-0400 Heart rate 68 /min Krislyn Aberegg PA Work Phone: [facility] 10-20-2024 19:35-0400 Respiratory rate 18 /min Krislyn Aberegg PA Work Phone: [facility] 10-20-2024 19:35-0400 SaO2% (BldA) [Mass fraction] 98 % Krislyn Aberegg PA Work Phone: [facility] 10-20-2024 19:35-0400 Systolic blood pressure 108 mm[Hg] Krislyn Aberegg PA Work Phone: [facility] 08-14-2024 11:55-0400 Body mass index (BMI) [Ratio] 26.49 kg/m2 Kota Pendlebury LOGISTICS PROJECT MANAGER.LEGAL FILE CLERK Work Phone: [facility] 08-14-2024 11:55-0400 Body temperature 97.81 [degF] Kota Acuña LOGISTICS PROJECT MANAGER.LEGAL FILE CLERK Work Phone: [facility] 08-14-2024 11:55-0400 Body weight 70 kg Kota Acuña LOGISTICS PROJECT MANAGER.LEGAL FILE CLERK Work Phone: [facility] 08-14-2024 11:55-0400 Diastolic blood pressure 91 mm[Hg] Kota Acuña LOGISTICS PROJECT MANAGER.LEGAL FILE CLERK Work Phone: [facility] 08-14-2024 11:55-0400 Heart rate 68 /min Kota Acuña LOGISTICS PROJECT MANAGER.LEGAL FILE CLERK Work Phone: [facility] 08-14-2024 11:55-0400 Respiratory rate 18 /min Kota Acuña LOGISTICS PROJECT MANAGER.LEGAL FILE CLERK Work Phone: [facility] 08-14-2024 11:55-0400 SaO2% (BldA) [Mass fraction] 100 % Kota Acuña LOGISTICS PROJECT MANAGER.LEGAL FILE CLERK Work Phone: [facility] 08-14-2024 11:55-0400 Systolic blood pressure 156 mm[Hg] Kota Acuña LOGISTICS PROJECT MANAGER.LEGAL FILE CLERK Work Phone: [facility] 07-26-2024 10:09-0400 Body mass index (BMI) [Ratio] 26.72 kg/m2 Yobani Ballesteros LOGISTICS PROJECT MANAGER.LEGAL FILE CLERK Work Phone: [facility] 07-26-2024 10:09-0400 Body temperature 97.9 [degF] Yobani Ballesteros LOGISTICS PROJECT MANAGER.LEGAL FILE CLERK Work Phone: [facility] 07-26-2024 10:09-0400 Body weight 70.6 kg Yobani Ballesteros LOGISTICS PROJECT MANAGER.LEGAL FILE CLERK Work Phone: [facility] 07-26-2024 10:09-0400 Diastolic blood pressure 82 mm[Hg] Yobani Ballesteros LOGISTICS PROJECT MANAGER.LEGAL FILE CLERK Work Phone: [facility] 07-26-2024 10:09-0400 Heart rate 64 /min Yobani Ballesteros LOGISTICS PROJECT MANAGER.LEGAL FILE CLERK Work Phone: [facility] 07-26-2024 10:09-0400 Respiratory rate 16 /min Yobani Ballesteros LOGISTICS PROJECT MANAGER.LEGAL FILE CLERK Work Phone: [facility] 07-26-2024 10:09-0400 SaO2% (BldA) [Mass fraction] 100 % Yobani Ballesteros LOGISTICS PROJECT MANAGER.LEGAL FILE CLERK Work Phone: [facility] 07-26-2024 10:09-0400 Systolic blood pressure 128 mm[Hg] Yobani Ballesteros LOGISTICS PROJECT MANAGER.LEGAL FILE CLERK Work Phone: [facility] 07-01-2024 13:07-0500 Body height 162.6 cm Vikki Elmore MD Work Phone: [facility] 07-01-2024 13:07-0500 Body mass index (BMI) [Ratio] 25.06 kg/m2 Vikki Elmore MD Work Phone: [facility] 07-01-2024 13:07-0500 Body weight 66.22 kg Vikki Elmore MD Work Phone: [facility] 07-01-2024 13:07-0500 Diastolic blood pressure 95 mm[Hg] Vikki Elmore MD Work Phone: [facility] 07-01-2024 13:07-0500 Heart rate 95 /min Vikki Elmore MD Work Phone: [facility] 07-01-2024 13:07-0500 SaO2% (BldA) [Mass fraction] 98 % Vikki Elmore MD Work Phone: [facility] 07-01-2024 13:07-0500 Systolic blood pressure 149 mm[Hg] Vikki Elmore MD Work Phone: [facility] 01-21-2024 12:30-0400 Body mass index (BMI) [Ratio] 25.66 kg/m2 Mayank Arizmendi LOGISTICS PROJECT MANAGER.LEGAL FILE CLERK Work Phone: [facility] 01-21-2024 12:30-0400 Body temperature 98.2 [degF] Mayank Arizmendi LOGISTICS PROJECT MANAGER.LEGAL FILE CLERK Work Phone: [facility] 01-21-2024 12:30-0400 Body weight 67.8 kg Mayank Arizmendi APRN.LEGAL FILE CLERK Work Phone: [facility] 01-21-2024 12:30-0400 Diastolic blood pressure 84 mm[Hg] Mayank Arizmendi LOGISTICS PROJECT MANAGER.LEGAL FILE CLERK Work Phone: [facility] 01-21-2024 12:30-0400 Heart rate 71 /min Mayank Arizmendi LOGISTICS PROJECT MANAGER.LEGAL FILE CLERK Work Phone: [facility] 01-21-2024 12:30-0400 Respiratory rate 18 /min Mayank Arizmendi APRN.LEGAL FILE CLERK Work Phone: [facility] 01-21-2024 12:30-0400 SaO2% (BldA) [Mass fraction] 98 % Mayank Arizmendi APRN.LEGAL FILE CLERK Work Phone: [facility] 01-21-2024 12:30-0400 Systolic blood pressure 138 mm[Hg] Mayank Arizmendi LOGISTICS PROJECT MANAGER.LEGAL FILE CLERK Work Phone: [facility] 08-28-2023 11:44-0400 Body height 162.[address] Starr Motley Work Phone: [facility] 08-28-2023 11:31-0400 Body mass index (BMI) [Ratio] 23.9 kg/m2 Dr. Starr Motley Work Phone: [facility] 08-28-2023 11:31-0400 Body weight 63.[address] Starr Motley Work Phone: [facility] 08-28-2023 11:31-0400 Diastolic blood pressure 82 mm[Hg] Dr. Starr Motley Work Phone: [facility] 08-28-2023 11:31-0400 Systolic blood pressure 114 mm[Hg] Dr. Starr Motley Work Phone: [facility] 06-21-2023 09:53-0500 Body temperature 97.6 [degF] [facility] 06-21-2023 09:53-0500 Diastolic blood pressure 78 mm[Hg] [facility] 06-21-2023 09:53-0500 Heart rate 64 /min [facility] 06-21-2023 09:53-0500 Respiratory rate 16 /min [facility] 06-21-2023 09:53-0500 SaO2% (BldA) [Mass fraction] 99 % [facility] 06-21-2023 09:53-0500 Systolic blood pressure 131 mm[Hg] [facility] 06-21-2023 09:24-0500 Body height 162.56 cm [facility] 06-21-2023 09:24-0500 Body mass index (BMI) [Ratio] 24.8 kg/m2 [facility] 06-21-2023 09:24-0500 Body weight 65.58 kg [facility] 04-07-2023 13:58-0500 Body temperature 98.71 [degF] Antonino Snyder MD Work Phone: [facility] 04-07-2023 13:58-0500 Body weight 66.5 kg Antonino Snyder MD Work Phone: [facility] 04-07-2023 13:58-0500 Diastolic blood pressure 74 mm[Hg] Antonino Snyder MD Work Phone: [facility] 04-07-2023 13:58-0500 Heart rate 67 /min Antonino Snyder MD Work Phone: [facility] 04-07-2023 13:58-0500 Respiratory rate 18 /min Antonino Snyder MD Work Phone: [facility] 04-07-2023 13:58-0500 SaO2% (BldA) [Mass fraction] 96 % Antonino Snyder MD Work Phone: [facility] 04-07-2023 13:58-0500 Systolic blood pressure 111 mm[Hg] Antonino Snyder MD Work Phone: [facility] 03-19-2023 18:31-0400 Diastolic blood pressure 69 mm[Hg] Alejandro Ruiz MD Work Phone: [facility] 03-19-2023 18:31-0400 Heart rate 59 /min Alejandro Ruiz MD Work Phone: [facility] 03-19-2023 18:31-0400 Respiratory rate 17 /min Alejandro Ruiz MD Work Phone: [facility] 03-19-2023 18:31-0400 SaO2% (BldA) [Mass fraction] 99 % Alejandro Ruiz MD Work Phone: [facility] 03-19-2023 18:31-0400 Systolic blood pressure 112 mm[Hg] Alejandro Ruiz MD Work Phone: [facility] 03-19-2023 16:48-0400 Body height 162.6 cm Alejandro Ruiz MD Work Phone: [facility] 03-19-2023 16:48-0400 Body mass index (BMI) [Ratio] 25.75 kg/m2 Alejandro Ruiz MD Work Phone: [facility] 03-19-2023 16:48-0400 Body temperature 98.01 [degF] Alejandro Ruiz MD Work Phone: [facility] 03-19-2023 16:48-0400 Body weight 68.04 kg Alejandro Ruiz MD Work Phone: [facility] 03-19-2023 12:34-0400 Body mass index (BMI) [Ratio] 25.7 kg/m2 [facility] 03-19-2023 12:34-0400 Body temperature 96.7 [degF] [facility] 03-19-2023 12:34-0400 Body weight 68.12 kg [facility] 03-19-2023 12:34-0400 Diastolic blood pressure 84 mm[Hg] [facility] 03-19-2023 12:34-0400 Heart rate 65 /min [facility] 03-19-2023 12:34-0400 Respiratory rate 16 /min [facility] 03-19-2023 12:34-0400 SaO2% (BldA) [Mass fraction] 100 % [facility] 03-19-2023 12:34-0400 Systolic blood pressure 128 mm[Hg] [facility] 03-08-2023 10:15-0400 Body temperature 97.9 [degF] Inés Flores LOGISTICS PROJECT MANAGER.LEGAL FILE CLERK Work Phone: [facility] 03-08-2023 10:15-0400 Body weight 70.49 kg Inés Flores LOGISTICS PROJECT MANAGER.LEGAL FILE CLERK Work Phone: [facility] 03-08-2023 10:15-0400 Diastolic blood pressure 87 mm[Hg] Inés Flores LOGISTICS PROJECT MANAGER.LEGAL FILE CLERK Work Phone: [facility] 03-08-2023 10:15-0400 Heart rate 52 /min Inés Flores LOGISTICS PROJECT MANAGER.LEGAL FILE CLERK Work Phone: [facility] 03-08-2023 10:15-0400 Respiratory rate 18 /min Inés Flores LOGISTICS PROJECT MANAGER.LEGAL FILE CLERK Work Phone: [facility] 03-08-2023 10:15-0400 SaO2% (BldA) [Mass fraction] 99 % Inés Flores LOGISTICS PROJECT MANAGER.LEGAL FILE CLERK Work Phone: [facility] 03-08-2023 10:15-0400 Systolic blood pressure 131 mm[Hg] Inés Flores LOGISTICS PROJECT MANAGER.LEGAL FILE CLERK Work Phone: [facility] 03-03-2023 22:06-0400 Heart rate 65 /min Dr. Starr Motley Work Phone: [facility] 03-03-2023 22:06-0400 Respiratory rate 16 /min Dr. Starr Motley Work Phone: [facility] 03-03-2023 22:06-0400 SaO2% (BldA) [Mass fraction] 99 % Dr. Starr Motley Work Phone: 9(222)696-289157 [place] [address] 03-03-2023 18:54-0400 Body height 162.[address] Starr Motley Work Phone: 9(263)846-744557 [place] [address] 03-03-2023 18:54-0400 Body mass index (BMI) [Ratio] 25.9 kg/m2 Dr. Starr Motley Work Phone: 9(568)770-283657 [place] [address] 03-03-2023 18:54-0400 Body temperature 97.9 [degF] Dr. Starr Motley Work Phone: 8(407)999-631957 [place] [address] 03-03-2023 18:54-0400 Body weight 68.[address] Starr Motley Work Phone: 3(849)603-190357 [place] [address] 03-03-2023 18:54-0400 Diastolic blood pressure 82 mm[Hg] Dr. Starr Motley Work Phone: 5(230)923-839957 [place] [address] 03-03-2023 18:54-0400 Systolic blood pressure 108 mm[Hg] Dr. Starr Motley Work Phone: 1(083)324-654657 [place] [address] 12-30-2022 10:50-0400 Diastolic blood pressure 86 mm[Hg] Dr. Starr Motley Work Phone: 5(159)603-545057 [place] [address] 12-30-2022 10:50-0400 Heart rate 53 /min Dr. Starr Motley Work Phone: 9(277)995-110657 [place] [address] 12-30-2022 10:50-0400 Respiratory rate 16 /min Dr. Starr Motley Work Phone: 3(533)504-543757 [place] [address] 12-30-2022 10:50-0400 SaO2% (BldA) [Mass fraction] 98 % Dr. Starr Motley Work Phone: 2(539)463-491357 [place] [address] 12-30-2022 10:50-0400 Systolic blood pressure 119 mm[Hg] Dr. Starr Motley Work Phone: 5(216)872-806057 [place] [address] 12-30-2022 09:02-0400 Body height 162.[address] Starr Motley Work Phone: 5(840)849-084657 [place] [address] 12-30-2022 09:02-0400 Body mass index (BMI) [Ratio] 27.1 kg/m2 Dr. Starr Motley Work Phone: 1(408)158-663357 [place] [address] 12-30-2022 09:02-0400 Body temperature 96.9 [degF] Dr. Starr Motley Work Phone: 9(803)546-978357 [place] [address] 12-30-2022 09:02-0400 Body weight 71.[address] Starr Motley Work Phone: 3(816)077-935957 [place] [address] 11-27-2022 14:25-0400 Body height 162.[address] Starr Motley Work Phone: 3(340)202-193157 [place] [address] 11-27-2022 14:17-0400 Body mass index (BMI) [Ratio] 26.4 kg/m2 Dr. Starr Motley Work Phone: 3(364)225-270857 [place] [address] 11-27-2022 14:17-0400 Body weight 69.[address] Starr Motley Work Phone: 6(898)920-112057 [place] [address] 11-27-2022 14:17-0400 Diastolic blood pressure 71 mm[Hg] Dr. Starr Motley Work Phone: 4(413)182-742257 [place] [address] 11-27-2022 14:17-0400 Systolic blood pressure 108 mm[Hg] Dr. Starr Motley Work Phone: 8(901)138-582357 [place] [address] 10-08-2022 00:11-0400 Diastolic blood pressure 86 mm[Hg] Dr. Starr Motley Work Phone: 1(292)129-228557 [place] [address] 10-08-2022 00:11-0400 Heart rate 59 /min Dr. Starr Motley Work Phone: 3(184)929-749197 [place] [address] 10-08-2022 00:11-0400 Respiratory rate 16 /min Dr. Starr Motley Work Phone: 1(970)495-345557 [place] [address] 10-08-2022 00:11-0400 SaO2% (BldA) [Mass fraction] 98 % Dr. Starr Motley Work Phone: 9(714)338-116557 [place] [address] 10-08-2022 00:11-0400 Systolic blood pressure 136 mm[Hg] Dr. Starr Motley Work Phone: 2(224)150-128897 [place] [address] 10-07-2022 20:54-0400 Body mass index (BMI) [Ratio] 26.8 kg/m2 Dr. Starr Motley Work Phone: 1(830)259-017257 [place] [address] 10-07-2022 20:54-0400 Body temperature 98.4 [degF] Dr. Starr Motley Work Phone: 3(272)388-683997 [place] [address] 10-07-2022 20:54-0400 Body weight 70.[address] Starr Motley Work Phone: 0(027)134-776757 [place] [address] 09-15-2022 21:29-0400 Diastolic blood pressure 74 mm[Hg] Dr. Starr Motley Work Phone: 0(314)602-709057 [place] [address] 09-15-2022 21:29-0400 Heart rate 75 /min Dr. Starr Motley Work Phone: 7(222)302-845557 [place] [address] 09-15-2022 21:29-0400 Respiratory rate 16 /min Dr. Starr Motley Work Phone: 0(068)762-895197 [place] [address] 09-15-2022 21:29-0400 SaO2% (BldA) [Mass fraction] 99 % Dr. Starr Motley Work Phone: 8(568)820-424357 [place] [address] 09-15-2022 21:29-0400 Systolic blood pressure 120 mm[Hg] Dr. Starr Motley Work Phone: 9(773)381-755897 [place] [address] 09-15-2022 19:00-0400 Body height 162.[address] Starr Motley Work Phone: 2(055)963-067797 [place] [address] 09-15-2022 19:00-0400 Body mass index (BMI) [Ratio] 26.8 kg/m2 Dr. Starr Motley Work Phone: 0(038)603-989857 [place] [address] 09-15-2022 19:00-0400 Body temperature 97.4 [degF] Dr. Starr Motley Work Phone: 1(885)747-328957 [place] [address] 09-15-2022 19:00-0400 Body weight 70.[address] Starr Motley Work Phone: [facility] 09-11-2022 09:13-0400 Body height 162.[address] Starr Motley Work Phone: [facility] 09-11-2022 09:06-0400 Body mass index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 End: 08-19-2021 Emergency department patient visit [facility] Start: 07-25-2021 End: 07-25-2021 Emergency department patient visit [facility] Start: 05-18-2021 End: 05-19-2021 Emergency department patient visit [facility] Start: 05-11-2021 End: 05-11-2021 Emergency department patient visit [facility] Start: 05-01-2021 End: 05-01-2021 Emergency department patient visit [facility] Start: 04-25-2021 End: 04-25-2021 Emergency department patient visit [facility] Procedures Date Procedure Procedure Detail Performing Clinician Start: 07-26-2024 Urnls dip stick/tabl et rgnt auto w/o microscopy Michelle Ramirez APRN.CNP Work Phone: Start: 08-28-[address] [...] Start: 03-08-2023 STREP A MOLECULAR (POC) Cara Harrison PA-C Work Phone: Start: 03-03-2023 Computed tomography of [...] Adult depression scr eening assessment Kota Acuña APRN.LEGAL FILE CLERK Work Phone: Bacteria identified in Blood by [...] of 2) Zoster Vaccines (1 of 2) [employer] Start: 10-20-2025 BP Controlled (<130/80) BP Controlled (<130/80) [facility] Start: 01-20-2025 End: 04-21-2025 Antithrombin actual/normal in Platelet poor plasma by Chromogenic method [facility] Comment on above: Expected: 01/20/2025, Expires: Start: 01-20-2025 End: 04-21-2025 Antithrombin Ag actual/normal in Platelet poor plasma by Immunoassay [facility] Comment on above: Expected: 01/20/2025, Expires: Start: 01-20-2025 End: 04-21-2025 FIBRINOGEN ANTIGEN [facility] Comment on above: Expected: 01/20/2025, Expires: Start: 01-20-2025 End: 04-21-[address] [facility] Comment on above: Expected: 01/20/2025, Expires: Start: 01-20-2025 End: 04-21-2025 Paroxysmal nocturnal panel - Blood [facility] Comment on above: Expected: 01/20/2025, Expires: Start: 01-20-2025 End: 04-21-2025 PROTEIN C FUNCT [facility] Work Phone: Comment on above: Expected: 01/20/2025, Expires: Start: 01-20-2025 End: 04-21-2025 PROTEIN S CLOTTABLE [facility] Comment on above: Expected: 01/20/2025, Expires: Start: 01-20-2025 End: 04-21-2025 PROTEIN S IMMUNO [facility] Comment on above: Expected: 01/20/2025, Expires: Start: 01-20-2025 End: 01-20-2025 ambulatory 01/20/2025 1:00 PM EDT Visit (SP) Office Hematology/Oncology [address] [place], [place] [id number] Kyler Espinosa DO [address], [place] [id number] DIRECTOR TELECOMMUNICATIONS/Protein C deficiency (HCC) [D68.59] Hematology/Oncology Comment on above: DIRECTOR TELECOMMUNICATIONS/Protein C deficiency (HCC) [D68.59] Start: 01-20-2025 [facility] Start: 01-18-2025 Influenza vaccination [facility] Start: 01-15-2025 Foot min 3 Views Foot min 3 Views [facility] Start: 01-15-2025 XR Foot GE 3 Views [facility] Start: 12-30-2024 End: 12-30-2024 Patient encounter procedure 12/30/2024 1:30 PM EDT Office Visit Gastroenterology [address] [phone] Vikki Elmore MD [facility] [address] [id number] CGRT / PAGE [id number] Gastroenterology Comment on above: CGRT / PAGE [id number] Start: 12-30-2024 End: 12-30-2024 ambulatory 12/30/2024 1:00 PM EDT Education Gastroenterology [address] [phone] Dietitian, Cgrt [address] [place], [place] [id number] CGRT / PAGE [id number] Gastroenterology Comment on above: CGRT / PAGE [id number] Start: 12-21-2024 End: 03-22-2025 25-hydroxyvitamin D3 [Mass/volume] in Serum or Plasma VITAMIN D 25 HYDROXY Lab Routine 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) Expected: 12/21/2024, Expires: 03/22/2025 [facility] Comment on above: Expected: 12/21/2024, Expires: Start: 12-21-2024 End: 03-22-2025 CBC panel - Blood by Automated count COMPLETE BLOOD COUNT Lab Routine 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) Expected: 12/21/2024, Expires: 03/22/2025 [facility] Comment on above: Expected: 12/21/2024, Expires: Start: 12-21-2024 End: 03-22-2025 Cobalamin (Vitamin B12) [Mass/volume] in Serum or Plasma VITAMIN B12 Lab Routine 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) Expected: 12/21/2024, Expires: 03/22/2025 [facility] Comment on above: Expected: 12/21/2024, Expires: Start: 12-21-2024 End: 03-22-2025 Comprehensive metabolic 2000 panel - Serum or Plasma COMPREHENSIVE METABOLIC PANEL Lab Routine 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) Expected: 12/21/2024, Expires: 03/22/2025 [facility] Work Phone: Comment on above: Expected: 12/21/2024, Expires: Start: 12-21-2024 End: 03-22-2025 COPPER BLOOD COPPER BLOOD Lab Routine 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) Expected: 12/21/2024, Expires: 03/22/2025 [facility] Comment on above: Expected: 12/21/2024, Expires: Start: 12-21-2024 End: 03-22-2025 Magnesium [Mass/volume] in Serum or Plasma MAGNESIUM Lab Routine 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) Expected: 12/21/2024, Expires: 03/22/2025 [facility] Comment on above: Expected: 12/21/2024, Expires: Start: 12-21-2024 End: 03-22-2025 Methylmalonate [Moles/volume] in Serum or Plasma METHYLMALONIC ACID Lab Routine 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) Expected: 12/21/2024, Expires: 03/22/2025 [facility] Comment on above: Expected: 12/21/2024, Expires: Start: 12-21-2024 End: 03-22-2025 Phosphate [Mass/volume] in Serum or Plasma PHOSPHORUS INORGANIC Lab Routine 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) Expected: 12/21/2024, Expires: 03/22/2025 [facility] Comment on above: Expected: 12/21/2024, Expires: Start: 12-21-2024 End: 03-22-2025 Retinol [Mass/volume] in Serum or Plasma VITAMIN A/RETINOL Lab Routine 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) Expected: 12/21/2024, Expires: 03/22/2025 [facility] Comment on above: Expected: 12/21/2024, Expires: Start: 12-21-2024 End: 03-22-2025 Zinc [Mass/volume] in Serum or Plasma ZINC BLD Lab Routine 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) Expected: 12/21/2024, Expires: 03/22/2025 [facility] Comment on above: Expected: 12/21/2024, Expires: Start: 11-13-2024 [facility] Start: 10-04-2024 End: 01-03-2025 25-hydroxyvitamin D3 [Mass/volume] in Serum or Plasma VITAMIN D 25 HYDROXY Lab Routine Vitamin D deficiency Expected: 10/04/2024, Expires: 01/03/2025 [facility] Comment on above: Expected: 10/04/2024, Expires: Start: 10-04-2024 End: 01-03-2025 Alpha tocopherol [Mass/volume] in Serum or Plasma VITAMIN E/TOCOPHEROL Lab Routine Diarrhea due to malabsorption Vitamin E deficiency Expected: 10/04/2024, Expires: 01/03/2025 [facility] Comment on above: Expected: 10/04/2024, Expires: Start: 10-04-2024 End: 01-03-2025 COPPER BLOOD COPPER BLOOD Lab Routine Copper deficiency Expected: 10/04/2024, Expires: 01/03/2025 [facility] Comment on above: Expected: 10/04/2024, Expires: Start: 10-04-2024 End: 01-03-2025 Retinol [Mass/volume] in Serum or Plasma VITAMIN A/RETINOL Lab Routine Vitamin A deficiency Expected: 10/04/2024, Expires: 01/03/2025 [facility] Comment on above: Expected: 10/04/2024, Expires: Start: 08-20-2024 End: 11-19-2024 Basic metabolic 2000 panel - Serum or Plasma BASIC METABOLIC PANEL Lab Routine Diarrhea due to malabsorption Hypokalemia Expected: 08/20/2024, Expires: 11/19/2024 [facility] Work Phone: Comment on above: Expected: 08/20/2024, Expires: Start: 08-20-2024 End: 11-19-2024 Magnesium [Mass/volume] in Serum or Plasma MAGNESIUM Lab Routine Diarrhea due to malabsorption Hypomagnesemia Expected: 08/20/2024, Expires: 11/19/2024 [facility] Comment on above: Expected: 08/20/2024, Expires: Start: 07-22-2024 End: 07-22-2024 ambulatory 07/22/2024 10:00 AM EST Results Only [facility] [address] [place] [address] [facility] Start: 07-21-2024 End: 10-20-2024 Alpha tocopherol [Mass/volume] in Serum or Plasma VITAMIN E/TOCOPHEROL Lab Routine Vitamin E deficiency Expected: 07/21/2024, Expires: 10/20/2024 [facility] Comment on above: Expected: 07/21/2024, Expires: Start: 07-21-2024 End: 10-20-2024 Basic metabolic 2000 panel - Serum or Plasma BASIC METABOLIC PANEL Lab Routine Diarrhea due to malabsorption Expected: 07/21/2024, Expires: 10/20/2024 [facility] Comment on above: Expected: 07/21/2024, Expires: Start: 07-21-2024 End: 10-20-2024 Magnesium [Mass/volume] in Serum or Plasma MAGNESIUM Lab Routine Magnesium deficiency Expected: 07/21/2024 (Approximate), Expires: 10/20/2024 [facility] Work Phone: Comment on above: Expected: 07/21/2024 (Approximate), Expi res: 10/20/2024 Start: 07-03-2024 End: 10-02-2024 C reactive protein [Mass/volume] in Serum or Plasma C-REACTIVE PROTEIN Lab Routine Diarrhea due to malabsorption Expected: 07/03/2024, Expires: 10/02/2024 [facility] Work Phone: Comment on above: Expected: 07/03/2024, Expires: Start: 07-01-2024 End: 09-30-2024 Alpha tocopherol [Mass/volume] in Serum or Plasma [facility] Comment on above: Expected: 07/01/2024, Expires: Start: 07-01-2024 End: 09-30-2024 COPPER BLOOD [facility] Comment on above: Expected: 07/01/2024, Expires: Start: 07-01-2024 End: 09-30-2024 Iron and Iron binding capacity panel - Serum or Plasma [facility] Comment on above: Expected: 07/01/2024, Expires: Start: 07-01-2024 End: 09-30-2024 Magnesium [Mass/volume] in Serum or Plasma [facility] Comment on above: Expected: 07/01/2024, Expires: Start: 07-01-2024 End: 09-30-2024 Methylmalonate [Moles/volume] in Serum or Plasma [facility] Comment on above: Expected: 07/01/2024, Expires: Start: 07-01-2024 End: 09-30-2024 Phosphate [Mass/volume] in Serum or Plasma [facility] Comment on above: Expected: 07/01/2024, Expires: Start: 07-01-2024 End: 09-30-2024 Pyridoxine [Mass/volume] in Serum or Plasma [facility] Comment on above: Expected: 07/01/2024, Expires: Start: 07-01-2024 End: 09-30-2024 Retinol [Mass/volume] in Serum or Plasma [facility] Comment on above: Expected: 07/01/2024, Expires: Start: 07-01-2024 End: 09-30-2024 Thyrotropin [Units/volume] in Serum or Plasma [facility] [employer] Work Phone: Comment on above: Expected: 07/01/2024, Expires: Start: 07-01-2024 End: 09-30-2024 VITAMIN B1 (THIAMINE), WHOLE BLOOD [facility] Comment on above: Expected: 07/01/2024, Expires: Start: 07-01-2024 End: 09-30-2024 VITAMIN K [facility] Comment on above: Expected: 07/01/2024, Expires: Start: 07-01-2024 End: 09-30-2024 Zinc [Mass/volume] in Serum or Plasma [facility] Comment on above: Expected: 07/01/2024, Expires: Start: 06-08-2024 BP Controlled (<130/80) BP Controlled (<130/80) [facility] Start: 04-07-2024 BP Controlled (<130/80) BP Controlled (<130/80) [facility] Start: 01-19-2024 Covid-19 Vaccine () Covid-19 Vaccine () [facility] Start: 01-19-2024 Covid-19 Vaccine () Covid-19 Vaccine () [facility] Start: 01-19-2024 Influenza vaccination [facility] Start: 01-03-2024 End: 04-03-2024 25-hydroxyvitamin D3 [Mass/volume] in Serum or Plasma VITAMIN D 25 HYDROXY Lab Routine Vitamin D deficiency Expected: 01/03/2024, Expires: 04/03/2024 [facility] Comment on above: Expected: 01/03/2024, Expires: Start: 01-03-2024 End: 04-03-2024 Alpha tocopherol [Mass/volume] in Serum or Plasma VITAMIN E/TOCOPHEROL Lab Routine Vitamin E deficiency Expected: 01/03/2024, Expires: 04/03/2024 [facility] Comment on above: Expected: 01/03/2024, Expires: Start: 01-03-2024 End: 04-03-2024 Retinol [Mass/volume] in Serum or Plasma VITAMIN A/RETINOL Lab Routine Vitamin A deficiency Expected: 01/03/2024, Expires: 04/03/2024 [facility] Comment on above: Expected: 01/03/2024, Expires: Start: 10-30-2023 End: 10-30-2023 Patient encounter procedure 10/30/2023 1:30 PM EDT Office Visit Gastroenterology [address] [id number] Vikki Elmore MD [facility] [address] [place], [place] [id number] CGRT / PAGE [id number] Gastroenterology Comment on above: CGRT / PAGE [id number] Start: 10-30-2023 End: 10-30-2023 ambulatory 10/30/2023 1:00 PM EDT Education Gastroenterology [address] [address] DietBritni chase [address] [place] [address] CGRT / PAGE [id number] Gastroenterology Comment on above: CGRT / PAGE [id number] Start: 10-10-2023 End: 01-09-2024 Basic metabolic 2000 panel - Serum or Plasma BASIC METABOLIC PANEL Lab Routine Diarrhea due to malabsorption Hypokalemia Expected: 10/10/2023, Expires: 01/09/2024 [facility] Work Phone: Comment on above: Expected: 10/10/2023, Expires: Start: 10-10-2023 End: 01-09-2024 Magnesium [Mass/volume] in Serum or Plasma MAGNESIUM Lab Routine Diarrhea due to malabsorption Magnesium deficiency Expected: 10/10/2023, Expires: 01/09/2024 [facility] Comment on above: Expected: 10/10/2023, Expires: Start: 10-03-2023 BP CONTROLLED (<130/80) BP CONTROLLED (<130/80) [facility] Start: 09-11-2023 End: 12-11-2023 25-hydroxyvitamin D3 [Mass/volume] in Serum or Plasma VITAMIN D 25 HYDROXY Lab 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 Expected: 09/11/2023 (Approximate), Expires: 12/11/2023 [facility] Work Phone: Comment on above: Expected: 09/11/2023 (Approximate), Expi res: 12/11/2023 Start: 09-11-2023 End: 12-11-2023 Alpha tocopherol [Mass/volume] in Serum or Plasma VITAMIN E/TOCOPHEROL Lab 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 Expected: 09/11/2023 (Approximate), Expires: 12/11/2023 [facility] Work Phone: Comment on above: Expected: 09/11/2023 (Approximate), Expi res: 12/11/2023 Start: 09-11-2023 End: 12-11-2023 Cobalamin (Vitamin B12) [Mass/volume] in Serum or Plasma VITAMIN B12 Lab 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 Expected: 09/11/2023 (Approximate), Expires: 12/11/2023 [facility] Work Phone: Comment on above: Expected: 09/11/2023 (Approximate), Expi res: 12/11/2023 Start: 09-11-2023 End: 12-11-2023 Comprehensive metabolic 2000 panel - Serum or Plasma COMPREHENSIVE METABOLIC PANEL Lab 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 Expected: 09/11/2023 (Approximate), Expires: 12/11/2023 [facility] Work Phone: Comment on above: Expected: 09/11/2023 (Approximate), Expi res: 12/11/2023 Start: 09-11-2023 End: 12-11-2023 Magnesium [Mass/volume] in Serum or Plasma MAGNESIUM Lab 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 Expected: 09/11/2023 (Approximate), Expires: 12/11/2023 [facility] Work Phone: Comment on above: Expected: 09/11/2023 (Approximate), Expi res: 12/11/2023 Start: 09-11-2023 End: 12-11-2023 Methylmalonate [Moles/volume] in Serum or Plasma METHYLMALONIC ACID Lab 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 Expected: 09/11/2023 (Approximate), Expires: 12/11/2023 [facility] Work Phone: Comment on above: Expected: 09/11/2023 (Approximate), Expi res: 12/11/2023 Start: 09-11-2023 End: 12-11-2023 Phosphate [Mass/volume] in Serum or Plasma PHOSPHORUS INORGANIC Lab 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 Expected: 09/11/2023 (Approximate), Expires: 12/11/2023 [facility] Work Phone: Comment on above: Expected: 09/11/2023 (Approximate), Expi res: 12/11/2023 Start: 09-11-2023 End: 12-11-2023 Retinol [Mass/volume] in Serum or Plasma VITAMIN A/RETINOL Lab 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 Expected: 09/11/2023 (Approximate), Expires: 12/11/2023 [facility] Work Phone: Comment on above: Expected: 09/11/2023 (Approximate), Expi res: 12/11/2023 Start: 09-03-2023 HPV TESTING HPV TESTING [facility] Start: 09-03-2023 PAP TESTING PAP TESTING [facility] Start: 09-03-2023 Screening for malignant neoplasm of cervix [facility] Start: 08-28-2023 Liquid based cervical cytology screening [facility] Start: 08-08-2023 BP CONTROLLED (<130/80) BP CONTROLLED (<130/80) [facility] Start: 08-02-2023 ANNUAL PCP TEAM CHRONIC DISEASE VISIT ANNUAL PCP TEAM CHRONIC DISEASE VISIT [facility] Start: 07-01-2023 End: 09-30-2023 Basic metabolic 2000 panel - Serum or Plasma BASIC METABOLIC PNL Lab Routine Diarrhea due to malabsorption Expected: 07/01/2023, Expires: 09/30/2023 [facility] Work Phone: Comment on above: Expected: 07/01/2023, Expires: Start: 07-01-2023 End: 09-30-2023 Magnesium [Mass/volume] in Serum or Plasma MAGNESIUM BLD Lab Routine Diarrhea due to malabsorption Expected: 07/01/2023, Expires: 09/30/2023 [facility] Work Phone: Comment on above: Expected: 07/01/2023, Expires: 4 Start: 06-21-2023 End: 09-20-2023 COPPER BLOOD [facility] Work Phone: Comment on above: Expected: 06/21/2023, Expires: 4 Start: 06-21-2023 [facility] Start: 05-20-2023 Behavioral Health Screening Behavioral Health Screening [facility] Start: 05-20-2023 Depression Assessment Depression Assessment [facility] Start: 04-07-2023 End: 04-21-2023 COVID AND INFLUENZA A/B & RSV NAAT, EXPEDITED [facility] Work Phone: Comment on above: Expected: 04/07/2023, Expires: 3 Start: 03-08-2023 End: 03-22-2023 COVID & INFLUENZA A/B & RSV NAAT, ROUTINE [facility] Work Phone: Comment on above: Expected: 03/08/2023, Expires: 3 Start: 03-03-2023 [facility] Start: 03-03-2023 [facility] Start: 03-03-2023 Bacteria identified in Urine by Culture Urine Culture [facility] Start: 01-18-2023 Covid-19 Vaccine () Covid-19 Vaccine () [facility] Start: 01-18-2023 Influenza vaccination [facility] Start: 11-22-2022 Adult depression screening assessment DEPRESSION SCREENING [facility] Start: 11-22-2022 ANNUAL PCP TEAM CHRONIC DISEASE VISIT ANNUAL PCP TEAM CHRONIC DISEASE VISIT [facility] Start: 11-22-2022 BP CONTROLLED (<130/80) BP CONTROLLED (<130/80) [facility] Start: 10-20-2022 BP CONTROLLED (<130/80) BP CONTROLLED (<130/80) [facility] Start: 08-07-2022 End: 08-21-2022 Influenza virus A and B RNA and SARS-CoV-2 (COVID-19) N gene panel - Respiratory specimen by DAVI with probe detection [facility] Work Phone: Comment on above: Expected: 08/07/2022, Expires: 3 Start: 07-19-2022 [facility] Start: 06-08-2022 ANNUAL PCP TEAM CHRONIC DISEASE VISIT ANNUAL PCP TEAM CHRONIC DISEASE VISIT [facility] Start: 05-20-2022 DEPRESSION ASSESSMENT DEPRESSION ASSESSMENT [facility] Start: 05-13-2022 [facility] Work Phone: Start: 01-18-2022 Influenza vaccination [facility] Start: 09-02-2021 Screening for malignant neoplasm of cervix Cervical Cancer Screening [facility] Start: 08-22-2021 Patient discharge [facility] Work Phone: Start: 08-20-2021 Ambulation without limitation [facility] Work Phone: Start: 08-20-2021 Assessment of risk of venous thromboembolism [facility] Work Phone: Start: 08-20-2021 Insertion of catheter into peripheral vein [facility] Work Phone: Start: 08-20-2021 Oxygen therapy [facility] Work Phone: Start: 08-20-2021 Providing care according to standard [facility] Work Phone: Start: 08-20-2021 [facility] Work Phone: Start: 08-20-2021 Following clinical pathway protocol [facility] Work Phone: Start: 08-20-2021 Admission procedure [facility] Work Phone: Start: 08-20-2021 Bacteria identified in Blood by Culture Blood Culture [facility] Work Phone: Start: 08-20-2021 Urine culture Urine Culture [facility] Work Phone: Start: 08-19-2021 Assay of magnesium ASSAY OF MAGNESIUM [facility] Work Phone: Start: 08-19-2021 Bacteria identified in Urine by Culture Urine Culture [facility] Work Phone: Start: 08-19-2021 Basic metabolic panel calcium total METABOLIC PANEL TOTAL CA [facility] Work Phone: Start: 08-19-2021 Blood count complete auto&auto difrntl wbc COMPLETE CBC W/AUTO DIFF WBC [facility] Work Phone: Start: 08-19-2021 Cul bact aerobic addl meths definitive ea isol CULTURE AEROBIC IDENTIFY [facility] Work Phone: Start: 08-19-2021 Culture bacterial quanttative colony count urine URINE CULTURE/COLONY COUNT [facility] Work Phone: Start: 08-19-2021 Culture bct isol&prsmptv id isolate ea urine URINE BACTERIA CULTURE [facility] Work Phone: Start: 08-19-2021 Emergency department visit high/urgent severity EMERGENCY DEPT VISIT [facility] Work Phone: Start: 08-19-2021 Urnls dip stick/tablet reagent auto microscopy URINALYSIS AUTO W/SCOPE [facility] Work Phone: Start: 08-19-2021 [facility] Work Phone: Start: 2021 Mammography [facility] Start: 2021 Screening for malignant neoplasm of breast [facility] Start: 10-11-2019 Adult depression screening assessment DEPRESSION SCREENING [facility] Start: 2011 Screening for malignant neoplasm of cervix [facility] Start: 2008 HPV Vaccine (1 - 3-dose SCDM series) HPV Vaccine (1 - 3-dose SCDM series) [facility] Start: 2002 Screening for malignant neoplasm of cervix Pap Smear [facility] Start: 2000 DTaP/Tdap/Td Vaccines (1 - Tdap) DTaP/Tdap/Td Vaccines (1 - Tdap) [facility] Start: 2000 Hepatitis B Vaccine (1 of 3 - 19+ 3-dose series) Hepatitis B Vaccine (1 of 3 - 19+ 3-dose series) [facility] Start: 2000 Urine microalbumin profile [facility] Start: 1999 Anxiety Screening Anxiety Screening [facility] Start: 1999 BP CONTROLLED (<130/80) BP CONTROLLED (<130/80) [facility] Start: 1999 Depression Screening Depression Screening [facility] Start: 1999 Diabetes mellitus screening Diabetes Screening [facility] Start: 1999 HEPATITIS C SCREENING HEPATITIS C SCREENING [facility] Start: 1999 Hepatitis C screening Hepatitis C Screening [facility] Start: 1999 HIV SCREENING HIV SCREENING [facility] Start: 1993 Depression Screening Depression Screening [facility] Start: 1987 PNEUMOCOCCAL (1 - PCV) PNEUMOCOCCAL (1 - PCV) [facility] Start: 1987 Pneumococcal vaccination Pneumococcal Vaccine (1 - PCV) [facility] Start: 1986 COVID-19 VACCINE (#1) COVID-19 VACCINE (#1) [facility] Start: 1982 MMR Vaccines (1 of 1 - Standard series) MMR Vaccines (1 of 1 - Standard series) [facility] Start: 1982 Varicella vaccination Varicella Vaccines (1 of 2 - 2-dose childhood series) [facility] Start: 1981 COVID-19 VACCINE (#1) COVID-19 VACCINE (#1) [facility] Start: 1981 HEPATITIS B (1 of 3 - 3-dose series) HEPATITIS B (1 of 3 - 3-dose series) [facility] Start: 1981 Hepatitis B Vaccine (1 of 3 - 3-dose series) Hepatitis B Vaccine (1 of 3 - 3-dose series) [facility] Start: 1981 Hepatitis B Vaccines (1 of 3 - 3-dose series) Hepatitis B Vaccines (1 of 3 - 3-dose series) [facility] Start: 1981 HIV screening HIV Screening [facility] Start: 1981 Lipid panel Lipid Panel [facility] Bacteria identified in Urine by Culture Urine Culture [facility] Bacteria identified in Urine by Culture BACTERIAL CULTURE, URINE Microbiology Routine Urinary frequency Ordered: 07/26/2024 [facility] Work Phone: Comment on above: Ordered: 07/26/2024 End: 10-15-2025 DBT Breast - bilateral screening DAISHA SCREENING W PIERO Radiology Routine Encounter for screening mammogram for breast cancer 1 Occurrences starting 09/15/2024 until 10/15/2025 [facility] Work Phone: Comment on above: 1 Occurrences starting 09/15/2024 until 10/15/2025 Gastrointestinal pathogens panel - Stool by DAVI with probe detection [facility] End: 12-07-2023 DAISHA SCREENING DAISHA SCREENING Radiology Routine Encounter for screening mammogram for breast cancer 1 Occurrences starting 11/07/2022 until 12/07/2023 [facility] Work Phone: Comment on above: 1 Occurrences starting 11/07/2022 until 12/07/2023 MG Breast - bilatera l Screening [facility] MG Breast - bilatera l Screening [facility] End: 11-14-2024 MG Breast Screening DAISHA SCREENING Radiology Routine Encounter for screening mammogram for breast cancer 1 Occurrences starting 10/16/2023 until 11/14/2024 [facility] Work Phone: Comment on above: 1 Occurrences starting 10/16/2023 until 11/14/2024 Path report.final Dx Spec [facility] Patient Education [facility] Work Phone: Patient referral [facility] Work Phone: ROUTINE FLU A/B + RSV ROUTINE FL U A/B + RSV Lab Routine Upper respiratory tract infection, unspecified type 03/08/2023 10:42 AM EDT [facility] Work Phone: SARS-CoV-2 (COVID-19 ) RNA [Presence] in Respiratory specimen by DAVI with probe detection COVID NAAT, UPPER RESPIRATORY, ROUTINE Microbiology Routine Upper respiratory tract infection, unspecified type 03/08/2023 10:42 AM EDT [facility] Work Phone: End: 12-22-2022 Screening mammography bi 2-view breast inc cad DAISHA SCREENING Radiology Routine Encounter for screening mammogram for malignant neoplasm of breast 1 Occurrences starting 11/22/2021 until 12/22/2022 [facility] Work Phone: Comment on above: 1 Occurrences starting 11/22/2021 until 12/22/2022 US Pelvis [facility] Immunizations Immunization Date Immunization Notes Care Provider Chino chávez 03-01-2016 influenza virus vacc ine, unspecified formulation [facility] Work Phone: [facility] Payers Date Payer Category Payer Self-pay [id number] 2023 Private Health Insurance [employer]NA [employer] [place] [id number] 2023-Present [address] [address] [place] [address] Medicaid [id number] 2023 Unknown [id number] 2022 Medicaid [id number] 2018 Medicaid [employer] [id number] 2018-Present [phone] [address] [place] [address] Medicaid [id number] 2016 Unknown [id number] Unknown [id number] Unknown [facility] [id number] Unknown [id number] Unknown [id number] Unknown [id number] Social History Date Type Detail Facility [facility] Work Phone: Start: 08-19-2021 End: 08-28-2023 Tobacco smoking status FLIS Unknown if ever smoked [facility] Start: 05-04-2020 Rare [facility] Start: 05-04-2020 None [facility] Start: 05-04-2020 With Family [facility] Start: 04-21-2019 Cigarettes [facility] Start: 1980 Sex Assigned At Female [facility] Start: 06-08-2021 End: 01-20-2025 Tobacco smoking status NHIS Smokes tobacco daily [facility] Start: 08-16-2000 End: 08-16-2013 History of tobacco use Cigarette Smoker [facility] Start: 06-08-2021 End: 04-22-2023 Cigarettes smoked current (pack per day) - Reported 1.5 [facility] Start: 06-08-2021 End: 01-21-2024 Tobacco use and exposure Smokeless tobacco non-user [facility] Start: 10-20-2021 End: 01-20-2025 Alcohol intake Current non-drinker of alcohol (finding) [facility] Start: 01-01-2014 History SDOH Alcohol Comment currently does not drink [facility] Start: 1980 Sex Assigned At Not on file C [facility] Start: 11-12-2021 End: 11-22-2021 Exposure to SARS-CoV-2 (event) Not sure [facility] Start: 10-02-2022 End: 04-22-2023 Tobacco use panel [facility] Start: 04-20-2012 Adult Depression Screening Assessment 0 [facility] Start: 06-08-2023 End: 01-21-2024 Tobacco smoking status NHIS Ex-smoker [facility] Start: 08-16-2000 End: 08-16-2013 History of tobacco use Current smoker [facility] NEGATED: Highlighted row [facility] Medical Equipment Procedure Code Equipment Code Equipment Original Text Equipment Identifier Dates [id number], [id number], [id number] Start: 03-22-2021 End: 07-01-2025 Comment on above: Inject 1 Syringe int ramuscularly once every month. One syringe as directed for Vitamin B12 injection as ordered. 1 Syringe once every month. One syringe as directed for Vitamin B12 injection as ordered. Goals Date Patient Goal Desired Activity /State Functional Status Date Assessment Result Facility 08-22-2021 Functional status Activity Abili ty Independent [facility] Work Phone: 08-21-2021 Functional status Ambulates;Bath room Privilege [facility] Work Phone: 09-13-2016 Are you deaf, or do you have serious difficulty hearing No 09/13/2016 8:10 PM Nubia RogersRn)(Hist), RN No [facility] 09-13-2016 Are you blind, or do you have serious difficulty seeing, even when wearing glasses No 09/13/2016 8:10 PM Nubia RogersRn)(Hist), RN No [facility] 09-13-2016 Do you have serious difficulty walking or climbing stairs No 09/13/2016 8:10 PM Nubia RogersRn)(Hist), RN No [facility] 09-13-2016 Do you have difficul ty dressing or bathing No 09/13/2016 8:10 PM Nubia RogersRn)(Hist), RN No [facility] 09-13-2016 Because of a physica l, mental, or emotional condition, do you have difficulty doing errands alone such as visiting a physician's office or shopping No 09/13/2016 8:10 PM Nubia RogersRn)(Hist), RN No [facility] Mental Status Date Assessment Result Facility 12-30-2022 Cognitive function Level Of Cons ciousness Awake;Alert;Appropriate [facility] Work Phone: 03-31-2022 Cognitive function Level Of Cons ciousness Awake;Alert;Appropriate;Fol lows Commands [facility] Work Phone: 08-22-2021 Cognitive function Appropriate;C ooperative;Uli kative [facility] Work Phone: 08-22-2021 Cognitive function Arousable To Voice/Nam e [facility] Work Phone: 08-19-2021 Cognitive function Level Of Cons ciousness Awake;Alert;Appropriate;Fol lows Commands [facility] Work Phone: 07-25-2021 Cognitive function Level Of Cons ciousness Awake;Alert;Appropriate;Fol lows Commands [facility] Work Phone: 09-13-2016 Because of a physica l, mental, or emotional condition, do you have serious difficulty concentrating, remembering, or making decisions No 09/13/2016 8:10 PM Nubia RogersRn)(Hist), RN No [facility] Clinical Notes 05-25-2016 to 01-20-2025 Kyler Espinosa DO - 01/20/2025 12:56 PM EDTTelephone Encounter - Joel Walsh - 01/07/2025 8:49 AM EDTTelephone Encounter - Joel Walsh - 01/07/2025 8:49 AM EDTPatient InstructionsAttachments Note Date & Type Note Facility 01-20-2025 Note HNO ID: [id number] Author: KYLER ESPINOSA, DO Service: ? Author Type: Physician Type: Progress Notes Filed: 01/20/2025 13:56 Note Text: Patient referred by Dr. Elmore for protein C deficiency. HPI: The patient is a 44-year-old female with a past medical history as outlined below. 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 No h/o VTE prior to 2013. Recalls when sledding Jun or July 2013, she was supine on a sled and who was getting on with her slipped and fell on her back. Got the wind knocked out of her. Didn't lose consciousness. No cracked ribs. 's palm hit her right flank area. Several weeks later was very sensitive to touch on her back--caused pain, even the lightest touch. Presented to [facility] 08/18/2013 with n/v and diarrhea for several days. Recalls feeling a popping sensation in right abdomen. Called squad and taken to [facility] 08/18/2013. CT revealed perforated viscus. Life-flighted to [facility] in [place]. In August 2013, was admitted to [facility] SICU on 08/27/2013 after presenting to an outside hospital with a 2-week history of nausea vomiting, abdominal pain and diarrhea and septic shock. She had an IUD removed on 08/19/2013. She underwent paracentesis on 08/26 at the outside hospital where an 2 L of dark reddish-brown fluid was removed. Subsequently grew gram-negative rods. Taken to surgery on 08/27 for exploratory laparoscopy and was found to have perforated jejunum with ischemic bowel. She was transferred to [facility] at that point. The CT of the abdomen pelvis done with IV contrast on 08/30 demonstrated thrombosis of the infrarenal aorta, distal SMA or SMA branch about 4 cm from the origin. Single right and left renal arteries were observed. No thrombosis. Portal vein and intrahepatic portal vein branches were patent. Splenic vein was patent. SMV was occluded 1 to 2 cm caudal from the port of splenic confluence. During that hospitalization she was found to have low protein C, protein S and Antithrombin. The protein C and protein S were normal on subsequent measurements. Most recent Antithrombin measurement on 03/19/2014 was low at 72%. It was 38% on 08/28/2013. Quit smoking at that time. Was on anticoagulation up until about 2 1/2 years ago. She's not sure why it was stopped. Recently started on B12 injections. Two pregnancies prior to above. First --pre-eclampsia. Delivered 2 weeks early. Second --uncomplicated. No miscarriages. PAST MEDICAL HISTORY Diagnosis Date Back pain Chest pain 01/11/2014 Depression DVT (deep venous thrombosis) ([facility]) July 2013 Hypertension, essential 01/13/2018 Low blood magnesium 03/02/2016 Protein C deficiency ([facility]) Protein S deficiency ([facility]) S/P cholecystectomy SBO (small bowel obstruction) ([facility]) 05/25/2016 Short bowel syndrome PAST SURGICAL HISTORY Procedure Laterality Date ; REMOVAL OF SMALL INTESTINE 09/15/13 11 in. small intestine remain LAP PARTIAL COLECTOMY W/ANASTOMOSIS 09/15/13 REMOVAL GALLBLADDER 2003 potassium chloride ER (KLOR-CON) 20 mEq tablet Take 1 tablet by mouth once daily. cyanocobalamin (VITAMIN B-12) 1,000 mcg/mL Inject 1 mL intramuscularly one time a week for 30 days, THEN 1 mL once every month. Needle, Disp, 25 G 25 gauge x 1 ndle Use for B12 injections ergocalciferol 50,000 unit capsule (VITAMIN D2, DRISDOL) Take 1 capsule by mouth four times a week. Vitamin E, dl, acetate, (VITAMIN E) 400 unit capsule Take 1 capsule by mouth once daily. DEKAS PLUS, FOLIC ACID, 200 mcg-1,000 mcg-10 mg cap Take 1 capsule by mouth once daily magnesium lactate ER (MAGTAB) 84 mg TbER Take 3 tablets by mouth three times a day. (Patient not taking: Reported on 01/20/2025) naproxen (NAPROSYN) 500 mg tablet Take 1 tablet by mouth two times a day with meals. FOR PAIN. TAKE WITH FOOD. (Patient not taking: Reported on 01/20/2025) ALLERGIES Allergen Reactions Adhesive Rash, Itching Amoxicillin Hives Penicillins Hives SOCIAL HISTORY[1] FAMILY HISTORY Problem Relation Age of Onset Hypertension Mother Heart Mother Psychiatry Father bi-polar Diabetes Maternal Grandmother Breast Cancer Maternal Aunt MGM--DVTs. Maternal aunt--DVTs. REVIEW OF SYSTEMS: Constitutional: No episodes of fever and night sweats. Normal appetite. Neuro: No WARE, vertigo, dizziness and imbalance. No symptoms of neuropathy. HEENT: No recent change in voice, vision or hearing. Resp: No cough, wheeze and hemoptysis. No shortness of breath at rest. No SANTIZO. CVS: No exertional chest pain, PND, orthopnea and LE edema. GI: No reflux, n/v, change in bowel habits or abdominal pain. : No dysuria or gross hematuria. Endo: No hot flashes. Musculoskeletal: No bone, back, joint and muscular pain. Derm: No current rash. Heme: No unusual bleeding and unexplained bruising. Psych: Normal mood. P (more content not included)... [facility] 01-20-2025 History of Present illness Narrative Patient referred by Dr. Elmore for protein C deficiency. HPI: The patient is a 44-year-old female with a past medical history as outlined below. 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 No h/o VTE prior to 2013. Recalls when sledding Jun or July 2013, she was supine on a sled and who was getting on with her slipped and fell on her back. Got the wind knocked out of her. Didn't lose consciousness. No cracked ribs. 's palm hit her right flank area. Several weeks later was very sensitive to touch on her back--caused pain, even the lightest touch. Presented to [facility] 08/18/2013 with n/v and diarrhea for several days. Recalls feeling a popping sensation in right abdomen. Called squad and taken to [facility] 08/18/2013. CT revealed perforated viscus. Life-flighted to [facility] in [place]. In August 2013, was admitted to [facility] SICU on 08/27/2013 after presenting to an outside hospital with a 2-week history of nausea vomiting, abdominal pain and diarrhea and septic shock. She had an IUD removed on 08/19/2013. She underwent paracentesis on 08/26 at the outside hospital where an 2 L of dark reddish-brown fluid was removed. Subsequently grew gram-negative rods. Taken to surgery on 08/27 for exploratory laparoscopy and was found to have perforated jejunum with ischemic bowel. She was transferred to [facility] at that point. The CT of the abdomen pelvis done with IV contrast on 08/30 demonstrated thrombosis of the infrarenal aorta, distal SMA or SMA branch about 4 cm from the origin. Single right and left renal arteries were observed. No thrombosis. Portal vein and intrahepatic portal vein branches were patent. Splenic vein was patent. SMV was occluded 1 to 2 cm caudal from the port of splenic confluence. During that hospitalization she was found to have low protein C, protein S and Antithrombin. The protein C and protein S were normal on subsequent measurements. Most recent Antithrombin measurement on 03/19/2014 was low at 72%. It was 38% on 08/28/2013. Quit smoking at that time. Was on anticoagulation up until about 2 1/2 years ago. She's not sure why it was stopped. Recently started on B12 injections. Two pregnancies prior to above. First --pre-eclampsia. Delivered 2 weeks early. Second --uncomplicated. No miscarriages. PAST MEDICAL HISTORY Diagnosis Date Back pain Chest pain 01/11/2014 Depression DVT (deep venous thrombosis) ([facility]) July 2013 Hypertension, essential 01/13/2018 Low blood magnesium 03/02/2016 Protein C deficiency ([facility]) Protein S deficiency ([facility]) S/P cholecystectomy SBO (small bowel obstruction) ([facility]) 05/25/2016 Short bowel syndrome PAST SURGICAL HISTORY Procedure Laterality Date ; REMOVAL OF SMALL INTESTINE 09/15/13 11 in. small intestine remain LAP PARTIAL COLECTOMY W/ANASTOMOSIS 09/15/13 REMOVAL GALLBLADDER 2003 potassium chloride ER (KLOR-CON) 20 mEq tablet Take 1 tablet by mouth once daily. cyanocobalamin (VITAMIN B-12) 1,000 mcg/mL Inject 1 mL intramuscularly one time a week for 30 days, THEN 1 mL once every month. Needle, Disp, 25 G 25 gauge x 1 ndle Use for B12 injections ergocalciferol 50,000 unit capsule (VITAMIN D2, DRISDOL) Take 1 capsule by mouth four times a week. Vitamin E, dl, acetate, (VITAMIN E) 400 unit capsule Take 1 capsule by mouth once daily. DEKAS PLUS, FOLIC ACID, 200 mcg-1,000 mcg-10 mg cap Take 1 capsule by mouth once daily magnesium lactate ER (MAGTAB) 84 mg TbER Take 3 tablets by mouth three times a day. (Patient not taking: Reported on 01/20/2025) naproxen (NAPROSYN) 500 mg tablet Take 1 tablet by mouth two times a day with meals. FOR PAIN. TAKE WITH FOOD. (Patient not taking: Reported on 01/20/2025) ALLERGIES Allergen Reactions Adhesive Rash, Itching Amoxicillin Hives Penicillins Hives SOCIAL HISTORY[1] FAMILY HISTORY Problem Relation Age of Onset Hypertension Mother Heart Mother Psychiatry Father bi-polar Diabetes Maternal Grandmother Breast Cancer Maternal Aunt MGM--DVTs. Maternal aunt--DVTs. REVIEW OF SYSTEMS: Constitutional: No episodes of fever and night sweats. Normal appetite. Neuro: No WARE, vertigo, dizziness and imbalance. No symptoms of neuropathy. HEENT: No recent change in voice, vision or hearing. Resp: No cough, wheeze and hemoptysis. No shortness of breath at rest. No SANTIZO. CVS: No exertional chest pain, PND, orthopnea and LE edema. GI: No reflux, n/v, change in bowel habits or abdominal pain. : No dysuria or gross hematuria. Endo: No hot flashes. Musculoskeletal: No bone, back, joint and muscular pain. Derm: No current rash. Heme: No unusual bleeding and unexplained bruising. Psych: Normal mood. PHYSICAL EXAM: Vitals: Blood pressure 108/71, pulse 63, temperature 36.7 C (98.1 F), temperature source Temporal, height 160 cm (5' 3), weight 69.4 kg (153 lb), last menstrual period 12/23/2024, SpO2 98%. Well-appearing and in no acute distress. EYES: Sclerae are anicteric bilaterally. LYMPHATIC: There is no palpable cervical or supraclavicular adenopathy. CARDIOVASCULAR: Rhythm is regular. Few lower extremity varicosities. ABDOMEN: The abdomen is nondistended. Extremities: No swelling or edema. SKIN: No jaundice. 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 Thrombosis was visualized in the infrarenal aorta. Protein C, S and Antithrombin were low on presentation consistent with acute inflammation and clotting process. Protein C and S functional were normal on follow-up measurement. She has been off anticoagulation for 2 and half years and has had no complication. - Etiology of her thrombotic episode is unclear but unlikely to represent protein S and/or protein S deficiency. However I discussed with her repeating thorough laboratory workup. Plan: - Protein C, protein S, Antithrombin clot a bowl and levels. Lupus anticoagulant panel. I spent a total of 60 minutes on the date of the service which included preparing to see the patient, [id number] patient care, completing clinical documentation, obtaining and/or reviewing separately obtained history, performing a medically appropriate examination, counseling and educating the patient/family/caregiver, ordering medications, tests, or procedures, communicating with other HCPs (not separately reported), and communicating results to the patient/family/caregiver. Kyler Espinoas DO [1] Social History Tobacco Use Smoking status: Former Current packs/day: 0.00 Average packs/day: 1.5 packs/day for 13.0 years (19.5 ttl pk-yrs) Types: Cigarettes Start date: 08/16/2000 Quit date: 08/16/2013 Years since quittin.4 Smokeless tobacco: Never Vaping Use Vaping status: current everyday user Substances: Nicotine Substance Use Topics Alcohol use: No Comment: currently does not drink Drug use: Yes Types: Marijuana documented in this encounter [facility] 01-07-2025 Telephone encounter Note Spoke w pt and this is scheduled w Dr Espinosa 01/20. Joel Walsh [facility] 01-07-2025 Miscellaneous Notes Spoke w pt and this is scheduled w Dr Espinosa 01/20. Joel Walsh Next new with me or Dr. Lomeli. Kyler Espinosa DO Please review and advise CONSULT TO HEMATOLOGY/ONCOLOGY Status: Needs Scheduling Requested appt date: Authorizing: Vikki Elmore MD in [facility] Referral: [id number] (Authorized) Expires: 12/30/2025 Priority: Routine Diagnosis: Protein C deficiency (HCC) [D68.59] Protein S deficiency (HCC) [D68.59] documented in this encounter [facility] 01-07-2025 Telephone encounter Note Next new with me or Dr. Lomeli. Kyler Espinosa DO [facility] Work Phone: 01-05-2025 Telephone encounter Note Please review and advise CONSULT TO HEMATOLOGY/ONCOLOGY Status: Needs Scheduling Requested appt date: Authorizing: Vikki Elmore MD in [facility] Referral: [id number] (Authorized) Expires: 12/30/2025 Priority: Routine Diagnosis: Protein C deficiency (HCC) [D68.59] Protein S deficiency (HCC) [D68.59] [facility] Work Phone: 12-31-2024 Telephone encounter Note Per Dr. Elmore (post clinic visit) , pt will have labs done, If Magnesium continues to be low will need to set up IV Magnesium at [place] [facility]. Savanah Toro RD, LD, CNSC, CCTD [facility] ; [facility] Work Phone: 12-31-[address] Elmore (post clinic visit) , pt will have labs done, If Magnesium continues to be low will need to set up IV Magnesium at [facility]. Savanah Toro RD, LD, CNSC, CCTD [facility] ; documented in this encounter [facility] 12-30-2024 Note HNO ID: [id number] Author: ?, ?, ? Service: ? Author [...] clean AND dry Temperature: No Drains: No [facility] 12-30-2024 History of Present illness Narrative [...] levels. - Consider IV potassium infusions at [facility] if levels remain low. 3. Hypomagnesemia [...] will arrange for IV magnesium infusions at [facility] in [place]. 4. Vitamin B 12 deficiency (E53.8) Chronic deficiency due to short bowel syndrome. - Continue monthly B12 injections. - Renewed prescription for B12 injections and needles, sent to [facility] in [place]. 5. Vitamin D deficiency (E55.9) Chronic deficiency [...] 5-6 years. - Referred to hematology at [facility] in [place] for evaluation and management of hypercoagulable state. FOLLOW-UP: 2 months or sooner if needed Vikki Elmore MD 12/30/2024 Staff Special Education Superintendent, [facility] [place] ========= PRIMARY PROBLEM: short bowel syndrome INTERVAL [...] flexibility for bathroom breaks. She has a [id number] granddaughter who keeps her active. CURRENT NUTRITION [...] mL injections for 2 months. Administer at [facility] 3 mL 4 L.acidophilus-L.rhamnosus ([facility]) 15 [...] the systems documented in the HPI. INVESTIGATIONS: CTA : IMPRESSION: Diffuse colonic dilation and dilation [...] Tissues: No significant finding. Lower thorax: Unremarkable. Lubricating Specialist (topogram) images: No additional findings. PHYSICAL EXAM: [...] documentation, and co-ordination of care. Recording using Ceres software for draft documentation of the visit was discussed with the patient/authorized customer service representative teller; all questions welcomed and answered. Patient/authorized customer service representative teller agreed to proceed documented in this encounter [facility] 12-30-2024 Note HNO ID: [id number] Author: VIKKI ELMORE MD Service: ? Author [...] levels. - Consider IV potassium infusions at [facility] in [place] if levels remain low. 3. Hypomagnesemia (E83.42) [...] will arrange for IV magnesium infusions at [facility] in [place]. 4. Vitamin B 12 deficiency (E53.8) Chronic deficiency due to short bowel syndrome. - Continue monthly B12 injections. - Renewed prescription for B12 injections and needles, sent to [facility] in [place]. 5. Vitamin D deficiency (E55.9) Chronic deficiency [...] 5-6 years. - Referred to hematology at [facility] in [place] for evaluation and management of hypercoagulable state. FOLLOW-UP: 2 months or sooner if needed Vikki Elmore MD 12/30/2024 Staff Special Education Superintendent, [facility] [place] ========= PRIMARY PROBLEM: short bowel syndrome INTERVAL [...] mg/dL despite supplementation (more content not included)... [facility] 12-03-2024 Telephone encounter Note I have reviewed [...] mL injections for 2 months. Administer at [facility] [address] [facility] 12-03-2024 Miscellaneous Notes I have reviewed [...] mL injections for 2 months. Administer at [facility] Comfort Eller RD documented in this encounter [facility] 11-09-2024 Note HNO ID: [id number] Author: MAYANK ARIZMENDI APRN.AKOSUA Service: ? Author Type: Nurse Practitioner Type: Progress Notes Filed: 11/09/2024 12:59 Note Text: [facility] NOTE Subjective Niurka Zhu is a 44 year old year old who [facility] today with complaint of upper [...] mL injections for 2 months. Administer at [facility] Vitamin E, dl, acetate, (VITAMIN E) [...] ear normal. Nose: Nose normal. Mouth/Throat: Lips: Secor. Mouth: Mucous membranes are moist. Dentition: Abnormal [...] TABLET Patient advised (more content not included)... [facility] 11-09-2024 History of Present illness Narrative Images from the original note were not included. [facility] NOTE Subjective Niurka Zhu is a 44 year old year old who presents to [facility] today with complaint of upper Right tooth [...] mL injections for 2 months. Administer at [place] [facility] Vitamin E, dl, acetate, (VITAMIN [...] ear normal. Nose: Nose normal. Mouth/Throat: Lips: Secor. Mouth: Mucous membranes are moist. Dentition: Abnormal [...] T36.95XA - FLUCONAZOLE 150 MG TABLET - [facility] 15 BILLION CELL CAPSULE 3. Chronic [...] 11/09/2024 12:54 PM documented in this encounter [facility] 11-09-2024 Instructions Mayank Arizmendi APRN.CNP - 11/09/2024 12:46 PM EDT [facility] [place] [id number] [place] [id number] Emergency Department Diagnosis: Assessment TOOTHACHE: Your exam [...] develop severe swelling. documented in this encounter [facility] 10-22-2024 Telephone encounter Note Vitamin A [...] to repeat blood work Savanah Toro RD, GAL, [facility], [facility] ; [facility] Work Phone: 10-22-2024 Miscellaneous Notes Vitamin [...] to repeat blood work Savanah Toro RD, GAL, [facility], [facility] ; Patient: NIURKA ZHU ([id number]) Latest Ref Rng 10/09/2024 Vitamin E-alpha 6.0 [...] results come in. Holly Burroughs, RD, CNSC Patient: NIURKA ZHU ([id number]) Latest Ref Rng 10/09/2024 Glucose 74 - [...] E, A, Cu documented in this encounter [facility] 10-20-2024 Note HNO ID: [id number] Author: ISAIAS ROE PA Service: ? Author Type: Physician Packing Floor Worker Type: Progress Notes Filed: 10/20/2024 19:43 Note [...] BID for 1-2 weeks. - Referred to [facility] for further evaluation due to recurrent nature of the rash. - Prescription sent to [facility]. Recording using Ceres software for draft documentation of the visit was discussed with the patient/authorized customer service representative teller; all questions welcomed and answered. Patient/authorized customer service representative teller agreed to proceed History and Record Review External record(s) reviewed: prior outpatient record. Differential Diagnoses - Rash is more likely for the following reason(s): suggested by HANDP - Cellulitis is less likely for the following reason(s): HANDP not suggestive - Shingles is less likely for the following reason(s): HANDP not suggestive Disposition The patient was discharged. Procedures [facility] 10-20-2024 History of Present illness Narrative [...] BID for 1-2 weeks. - Referred to [facility] for further evaluation due to recurrent nature of the rash. - Prescription sent to [facility]. Recording using Ceres software for draft documentation of the visit was discussed with the patient/authorized customer service representative teller; all questions welcomed and answered. Patient/authorized customer service representative teller agreed to proceed History and Record Review External record(s) reviewed: prior outpatient record. Differential Diagnoses - Rash is more likely for the following reason(s): suggested by H&P - Cellulitis is less likely for the following reason(s): H&P not suggestive - Shingles is less likely for the following reason(s): H&P not suggestive Disposition The patient was discharged. Procedures documented in this encounter [facility] 10-19-2024 Telephone encounter Note Received request via [facility] for PA on magnesium lactate. Will fwd to NST RN. Linda Saab RD [facility] 10-19-2024 Miscellaneous Notes Received request via [facility] for PA on magnesium lactate. Will fwd to EMIR Saab RD documented in this encounter [facility] 10-15-2024 Telephone encounter Note Patient: NIURKA ZHU ([id number]) Latest Ref Rng 10/09/2024 Vitamin E-alpha 6.0 - 23.0 mg/L 8.1 Vitamin E-gamma 0.3 - 3.2 mg/L 0.8 Vitamin A 0.30 - 1.20 mg/L 0.24 (L) Copper 80 - 155 ug/dL 75 (L) [facility] 10-13-2024 Telephone encounter Note Results so [...] remaining results come in. Holly Burroughs, RD, [facility] 10-13-2024 Telephone encounter Note Patient: NIURKA ZUH ([id number]) Latest Ref Rng 10/09/2024 Glucose 74 - [...] 1.2 (L) In process: Vit E A, Cu [facility] 09-15-2024 Note Patient Outreach (FA MPWS) NIURKA ZHU ([id number]) 1980 F Date Time Provider Department 09/15/24 STARR MOTLEY During your visit today, we recorded the following information about you: Allergies As of Date: 09/15/2024 Noted Allergy Reaction ADHESIVE 09/07/2016 2 - Rash 9 - Itching AMOXICILLIN 09/26/2011 4 - Hives PENICILLINS 09/26/2011 4 - Hives Date Reviewed: 08/14/2024 Reviewed by: Kota Acuña APRN.LEGAL FILE CLERK - Fully Assessed Visit Diagnosis:Encounter for screening mammogram for breast cancer [Z12.31] Order(s):DAISHA SCREENING Dale HARRY [[id number]] Order #: [id number] FUTURE Prescriptions as of 10/16/2024 - ergocalciferol 50,000 unit capsule (VITAMIN D2, DRISDOL) Take 1 capsule by mouth one time a week. - DEKAS PLUS, FOLIC ACID, 200 mcg-1,000 mcg-10 mg cap Take 1 capsule by mouth once daily - potassium chloride ER (KLOR-CON) 20 mEq tablet Take 1 tablet by mouth once daily - magnesium oxide-magnesium amino acid chelate (UO-EZGP-UKLKXIF) 133 mg tablet Take 3 tablets by mouth three times a day. - metroNIDAZOLE (FLAGYL) 250 mg tablet Take 1 tablet by mouth three times a day. Take for one week every 1-2 months for SIBO - MAGTAB 84 mg TbER Take 2 tablets by mouth three times a day. - aamjqd-hypmwfsg-cdozjeq (ZENPEP) 25,000-79,000- 105,000 unit delayed release capsule Take 2 with meals and 1 with snacks - cyanocobalamin (VITAMIN B-12) 1,000 mcg/mL Inject 1 mL intramuscularly once every month. Then resume monthly 1 mL injections for 2 months. Administer at [facility] center - Vitamin E, dl, acetate, (VITAMIN E) 400 unit capsule Take 1 capsule by mouth once daily. Meds Comments as of 11/21/2017: Probiotic daily, Vitamin E 400 unit daily Problem List As Of Date 09/15/2024 Noted Resolved Abdominal pain, other specified site [R10.9] 01/01/2014 Myalgia and myositis [AWY3394] 01/01/2014 Chest pain [R07.9] 01/11/2014 10/23/2016 ASA [...] 10/10/2018 Hypokalemia [E87.6] 10/10/2018 Encounter Status:Closed by EPIC, PRODUSER on 10/16/24 [facility] 08-14-2024 Note HNO ID: [id number] Author: KOTA ACUÑA APRN.LEGAL FILE CLERK Service: ? Author Type: Nurse Practitioner Type: [...] pain 01/11/2014 Depression DVT (deep venous thrombosis) ([facility]) July 2013 Hypertension, essential 01/13/2018 Low blood magnesium 03/02/2016 Protein C deficiency ([facility]) Protein S deficiency ([facility]) S/P cholecystectomy SBO (small bowel obstruction) ([facility]) 05/25/2016 Short bowel syndrome PAST SURGICAL HISTORY [...] Take 1 capsule by mouth once daily. gzdeam-bfvllcoh-vbvqttf (ZENPEP) 25,000-79,000- 105,000 unit delayed release capsule Take 2 with meals and 1 with snacks cyanocobalamin (VITAMIN B-12) 1,000 mcg/mL Inject 1 mL intramuscularly once every month. Then resume monthly 1 mL injections for 2 months. Administer at [facility] Vitamin E, dl, acetate, (VITAMIN E) [...] as ordered. magnesium oxide-magnesium amino acid chelate (PY-NFOB-HRRLZYT) 133 mg tablet Take 3 tablets by [...] Yes Types: Marijuan (more content not included)... [facility] 08-14-2024 History of Present illness Narrative [...] pain 01/11/2014 Depression DVT (deep venous thrombosis) ([facility]) July 2013 Hypertension, essential 01/13/2018 Low blood magnesium 03/02/2016 Protein C deficiency (HCC) Protein S deficiency ([facility]) S/P cholecystectomy SBO (small bowel obstruction) ([facility]) 05/25/2016 Short bowel syndrome PAST SURGICAL HISTORY [...] Take 1 capsule by mouth once daily. ctytef-grlvdunu-gopvutp (ZENPEP) 25,000-79,000- 105,000 unit delayed release capsule Take 2 with meals and 1 with snacks cyanocobalamin (VITAMIN B-12) 1,000 mcg/mL Inject 1 mL intramuscularly once every month. Then resume monthly 1 mL injections for 2 months. Administer at [facility] Vitamin E, dl, acetate, (VITAMIN E) [...] as ordered. magnesium oxide-magnesium amino acid chelate (UO-NUNA-GTHVCKO) 133 mg tablet Take 3 tablets by [...] of care. This note was generated using Eutechnyx software. It may contain errors in wording, punctuation, or spelling. Kota Acuña APRN.AKOSUA documented in this encounter [facility] 08-06-2024 Telephone encounter Note I have [...] as ordered. magnesium oxide-magnesium amino acid chelate (QQ-QKZL-ZPIZLVW) 133 mg tablet 270 tablet 5 Sig: Take 3 tablets by mouth three times a day. potassium chloride ER (KLOR-CON) 20 mEq tablet 30 tablet 2 Sig: Take 1 tablet by mouth once daily. Mara Prather RD [facility] 08-06-2024 Miscellaneous Notes I have reviewed [...] as ordered. magnesium oxide-magnesium amino acid chelate (CS-IWKZ-ZZKOENM) 133 mg tablet 270 tablet 5 Sig: Take 3 tablets by mouth three times a day. potassium chloride ER (KLOR-CON) 20 mEq tablet 30 tablet 2 Sig: Take 1 tablet by mouth once daily. Mara Prather RD documented in this encounter [facility] 08-06-2024 Telephone encounter Note Discussed lab [...] Refill generated and ordering info sent via Linktone - Start Potassium 20 mEq daily. Refill generated. - Start Booster B12 1000 mcg IM injections once weekly x4 weeks, then resume once monthly injections. Refill generated and Prior auth needed. - Recheck BMP and Mg 1-2 weeks after starting electrolytes. Will add f/u vit E due 10/04 (Cu, vit D and A due at same time) Ordered in [employer]. Mara Prather RD, LD, [facility] (RT) [facility] 08-06-2024 Miscellaneous Notes Discussed lab results [...] Refill generated and ordering info sent via [employer] - Start Potassium 20 mEq daily. Refill generated. - Start Booster B12 1000 mcg IM injections once weekly x4 weeks, then resume once monthly injections. Refill generated and Prior auth needed. - Recheck BMP and Mg 1-2 weeks after starting electrolytes. Will add f/u vit E due 10/04 (Cu, vit D and A due at same time) Ordered in [employer]. Mara Prather RD, LD, [facility] (RT) Return call attempted for f/up on lab [...] in 2 weeks. Orders not written yet. iJng Shahid RD Attempted to return call. Left [...] Comfort Eller RD Vm-Returning a call to [facility] for lab results. [phone] documented in this encounter [facility] 08-04-2024 Telephone encounter Note Return call [...] Orders not written yet. Jing Shahid RD [facility] 07-30-2024 Telephone encounter Note Attempted to [...] Orders not written yet. Comfort Eller RD [facility] Work Phone: 07-29-2024 Telephone encounter Note Vm-Returning a call to [facility] for lab results. [phone] [facility] 07-28-2024 Telephone encounter Note Vitamin E [...] Orders not written yet. Linda Saab RD [facility] 07-28-2024 Miscellaneous Notes Vitamin E resulted [...] yet. Linda Saab RD Patient: NIURKA ZHU ([id number]) 07/21/2024 Vitamin E-alpha 3.0 Vitamin E-gamma 0.6 [...] weeks. Shameka Joyce RD Patient: NIURKA ZHU ([id number]) Latest Ref Rng 07/21/2024 Glucose 74 - [...] Pending: Vit E documented in this encounter [facility] 07-28-2024 Telephone encounter Note Patient called and notified of positive urine culture. She was given a prescription for Macrobid. She will follow-up with PCP if symptoms not improving. [facility] 07-28-2024 Miscellaneous Notes Patient called and notified of positive urine culture. She was given a prescription for Macrobid. She will follow-up with PCP if symptoms not improving. documented in this encounter [facility] 07-27-2024 Telephone encounter Note Patient: NIURKA ZHU ([id number]) 07/21/2024 Vitamin E-alpha 3.0 Vitamin E-gamma 0.6 [facility] 07-26-2024 Note HNO ID: [id number] Author: YOBANI BALLESTEROS APRN.CNP Service: ? Author Type: Nurse Practitioner Type: Progress Notes Filed: 07/26/2024 10:22 Note Text: DEEPIKA Zhu is a 44 year old female. [...] proceed to ER. Verbalized understanding. Yobani Ballesteros APRN.LEGAL FILE CLERK Differential Diagnoses - kidney stone is more likely for the following reason(s): suggested by HANDP - UTI is less likely for the following reason(s): laboratory studies not suggestive Disposition The patient was discharged. [facility] 07-26-2024 History of Present illness Narrative DEEPIKA Zhu is a 44 year old female. [...] patient was discharged. documented in this encounter [facility] 07-24-2024 Telephone encounter Note Mg++ unchanged [...] Mg in [address] [facility] Work Phone: 07-22-2024 Telephone encounter Note Patient: NIURKA ZHU ([id number]) Latest Ref Rng 07/21/2024 Glucose 74 - [...] 2.3 mg/dL 1.3 (L) Pending: Vit E [facility] 07-16-2024 Telephone encounter Note I have reviewed the dosage, timing and amount of medication to be dispensed. I approve this prescription to be reviewed and signed by a Nutrition Support physician. Prescription Disposition: Escript Requested Prescriptions Pending Prescriptions Disp Refills MAGTAB 84 mg TbER 180 tablet 5 Sig: Take 2 tablets by mouth three times a day. Shameka Joyce RD [facility] 07-16-2024 Miscellaneous Notes I have reviewed the dosage, timing and amount of medication to be dispensed. I approve this prescription to be reviewed and signed by a Nutrition Support physician. Prescription Disposition: Escript Requested Prescriptions Pending Prescriptions Disp Refills MAGTAB 84 mg TbER 180 tablet 5 Sig: Take 2 tablets by mouth three times a day. Shameka Joyce RD documented in this encounter [facility] 07-14-2024 Telephone encounter Note PA needed for med, hendrickson code in covermymeds [id number] and sent to [facility]. Mihai Johnson RN [facility] Work Phone: 07-14-2024 Miscellaneous Notes PA needed for med, hendrickson code in covermymeds [id number] and sent to [facility]. Mihai Johnson, DOMINGO documented in this encounter [facility] 07-07-2024 Telephone encounter Note I have [...] by mouth once daily. Shameka Joyce RD [facility] 07-07-2024 Miscellaneous Notes I have reviewed [...] Shameka Joyce RD documented in this encounter [facility] 07-07-2024 Telephone encounter Note Spoke to patient regarding recommendations below. Scripts to be sent to [facility] in [place], [place] Recommendations: - START DEKAs essential daily [...] as lab not obtained. Shameka Joyce RD [facility] Work Phone: 07-07-2024 Miscellaneous Notes Spoke to patient regarding recommendations below. Scripts to be sent to [facility] in [place], [place] Recommendations: - START DEKAs essential daily [...] obtained. Shameka Joyce RD Patient: NIURKA ZHU ([id number]) Latest Ref Rng 07/01/2024 WBC 3.70 - [...] Abs Lymph 1.00 - 4.00 k/uL 1.41 [place]% % 7.2 Abs [place] <0.87 k/uL 0.34 Eosin% % 2.7 Abs [...] <0.9 mg/dL <0.3 documented in this encounter [facility] 07-07-2024 Telephone encounter Note Patient returned call to office for LIZZY Myles. Niurka [facility] 07-07-2024 Telephone encounter Note Attempted to return call to patient. VM left. Shameka Joyce RD [facility] 07-07-2024 Telephone encounter Note Pt called, returning Shameka call. [facility] 07-07-2024 Telephone encounter Note Lab results [...] as lab not obtained. Shameka Joyce RD [facility] 07-06-2024 Telephone encounter Note Patient: NIURKA ZHU ([id number]) Latest Ref Rng 07/01/2024 WBC 3.70 - [...] Abs Lymph 1.00 - 4.00 k/uL 1.41 [place]% % 7.2 Abs [place] <0.87 k/uL 0.34 Eosin% % 2.7 Abs [...] 213.3 nmol/L 144.8 CRP <0.9 mg/dL <0.3 [facility] 07-01-2024 Note HNO ID: [id number] Author: MARCI SHAHID RD Service: ? Author [...] MMA (WHEN) due today (WHERE) Orders in [facility]; Coordinator to enter into IRP Database only Patient Group: CGRT Follow Up: Return to clinic in [address] Elmore and CGRT RD. Signed by: Marci Shahid RD Date: 06/30/2024 [facility] 07-01-2024 History of Present illness Narrative [...] Orders in EPIC; Coordinator to enter into P Database only Patient Group: CGRT Follow Up: Return to clinic in [address] Elmore and CGRT RD. Signed by: Marci Shahid RD Date: 06/30/2024 documented in this encounter [facility] 07-01-2024 Note HNO ID: [id number] Author: MARCI SHAHID RD Service: ? Author [...] Hx of SMA thrombosis Depression; in [facility] (03/05/19-11/2019) Bone Scan: 02/06/2016 z-score: -1.1 wiithin [...] needed (for pain/inflammation). (more content not included)... [facility] 07-01-2024 History of Present illness Narrative [...] Hx of SMA thrombosis Depression; in homeless [facility] (03/05/19-11/2019) Bone Scan: 02/06/2016 z-score: -1.1 wiithin [...] Inject 1 mL intramuscularly once every month. hckpik-etphvwsi-wsqpdie (CREON) 24,000-76,000 -120,000 unit delayed release capsule [...] mL injections for 2 months. Administer at [facility] pyridoxine, vitamin B6, (VITAMIN B6) 50 mg [...] 4 on 04/17/2019; h/o iron infusions at [facility] per patient report; h/o heavy menstrual periods [...] Signed by: Marci Shahid RD Date: 06/30/2024 [facility] STAFF PHYSICIAN NOTE OF PERSONAL [...] Gastroenterology & Hepatology [facility] [place] Established Patient Visit NAME: Niurka Zhu [facility] NO: [id number] REASON FOR VISIT: Follow up Last visit: [...] Fellow, PGY 4 [facility] [place] I saw and evaluated the patient with [...] 07/01/2024 10:55 PM documented in this encounter [facility] 07-01-2024 Note HNO ID: [id number] Author: VIKKI ELMORE MD Service: ? Author Type: Physician Type: Progress Notes Filed: 07/01/2024 23:00 Note Text: Gastroenterology Clinic Department of Gastroenterology AND Hepatology [facility] [place] Established Patient Visit NAME: Niurka Zhu CLINIC NO: [id number] REASON FOR VISIT: Follow up Last visit: [...] Fellow, PGY 4 [facility] [place] I saw and evaluated the patient with [...] with oral replaceme (more content not included)... [facility] 07-01-2024 Note Education (GGENMN) NIURKA ZHU ([id number]) 1980 F Date Time Provider Department 07/01/24 [...] Fully Assessed Prescriptions as of 07/01/2024 - mruear-arevetat-vtqakzh (ZENPEP) 25,000-79,000- 105,000 unit delayed release capsule Take 2 with meals and 1 with snacks - metroNIDAZOLE (FLAGYL) 250 mg tablet Take 1 tablet by mouth three times a day for 10 days. - cyanocobalamin (VITAMIN B-12) 1,000 mcg/mL Inject 1 mL intramuscularly once every month. Then resume monthly 1 mL injections for 2 months. Administer at [facility] - Syringe with Needle, Disp, 3 [...] Encounter Status:Closed by MARCI SHAHID on 07/01/24 [facility] 06-30-2024 Note HNO ID: [id number] Author: MARCI SHAHID RD Service: ? Author Type: Registered Dietitian Type: Progress Notes Filed: 07/01/2024 16:25 Note Text: Abstract moved to office visit with Dr. Elmore on 07/01/24. Marci Shahid RD [facility] 06-30-2024 History of Present illness Narrative Abstract moved to office visit with Dr. Elmore on 07/01/24. Marci Shahid RD documented in this encounter [facility] 01-21-2024 History of Present illness Narrative Images from the original note were not included. [facility] CLINIC NOTE Subjective Niurka Zhu is a 43 year old year old who [facility] with complaint of Right upper tooth [...] Inject 1 mL intramuscularly once every month. alcqph-kadagvmd-rkaurwd (CREON) 24,000-76,000 -120,000 unit delayed release capsule [...] mL injections for 2 months. Administer at [facility] pyridoxine, vitamin B6, (VITAMIN B6) 50 [...] not able to obtain appointment may call [phone] for a nearby dentist under insurance plan. [...] 01/21/2024 12:44 PM documented in this encounter [facility] 10-30-2023 History of Present illness Narrative [...] if needed Vikki Elmore MD 10/30/2023 Staff Special Education Superintendent, [facility] [place] ========= PRIMARY PROBLEM: short bowel syndrome INTERVAL HISTORY: -Last phone visit ; last office visit CURRENT NUTRITION SUPPORT: None Weight history: 139 lbs Last Wt 06/21/23 : 67.1 kg (148 lb) 06/08/23 : 67.6 kg (149 lb) 06/04/23 : 67.7 kg (149 lb 4.8 oz) 12/16/23 : 66.7 kg (147 lb) 04/07/23 : [...] intramuscularly once every month. 3 mL 3 jagazn-fexrlwrk-tarypjk (CREON) 24,000-76,000 -120,000 unit delayed release capsule [...] hours. (Patient not taking: Reported on 04/07/2023) Hdgpffwnxisnpay-Msileafrp-JD (BROMFED DM) 2-30-10 mg/5 mL syrup Take [...] meals. (Patient not taking: Reported on 08/07/2022) 18055 mL 2 enoxaparin (LOVENOX) 100 mg/mL syrg [...] mL injections for 2 months. Administer at [facility] 3 mL 4 diphenoxylate-atropine (LOMOTIL) 2.5-0.025 [...] Tissues: No significant finding. Lower thorax: Unremarkable. Lubricating Specialist (topogram) images: No additional findings. PHYSICAL EXAM: [...] visit. Either the patient or their legal customer service representative teller has been informed of the risks and benefits of -- and alternatives to -- treatment through a remote evaluation and consents to proceed with the evaluation remotely. Patient consented to video visit. documented in this encounter [facility] 10-03-2023 Telephone encounter Note I have [...] by mouth once daily. Mara Prather RD [facility] 10-03-2023 Miscellaneous Notes I have reviewed [...] Mara Prather RD documented in this encounter [facility] 10-02-2023 Telephone encounter Note Reviewed remaining result. Vitamin B12 status is okay. Again attempted to call patient and unable to leave VM as mailbox is full. Of note patient has not checked her mychart message either. Of note next clinic visit is 11/03/23. Did call her patient contact mother and spoke with her, she will have Niurka call us back and let her know that her voicemail is full. Will await call back. Savanah Toro RD, GAL, [facility], [facility] ; [facility] Work Phone: 10-02-2023 Miscellaneous Notes Reviewed remaining result. Vitamin B12 status is okay. Again attempted to call patient and unable to leave VM as mailbox is full. Of note patient has not checked her mychart message either. Of note next clinic visit is 11/03/23. Did call her patient contact mother and spoke with her, she will have Niurka call us back and let her know that her voicemail is full. Will await call back. Savanah Toro RD, GAL, [facility], [facility] ; Patient: NIURKA ZHU N ([id number]) Female, Age: 43; Active Group: IRP and Transplant; IRP MD: VIKKI ELMORE MD; IRTP Encounter: 08/30/2023 Lab Result Details: Lab Info Patient Name: NIURKA ZHU Clinic ID: [id number] HPN Episode Start Date: IRP Encounter Date: [...] call patient however unable to leave message. MC message sent to call office. REcommendations: Vitamin [...] plan. Comfort Eller RD Patient: NIURKA ZHU ([id number]) Female, Age: 43; Active Group: IRP and Transplant; IRP MD: VIKKI ELMORE MD; IRTP Encounter: 08/30/2023 Lab Result Details: Lab Info Patient Name: NIURKA ZHU Clinic ID: [id number] HPN Episode Start Date: IRP Encounter Date: [...] In process: MMA documented in this encounter [facility] 10-02-2023 Telephone encounter Note Patient: NIURKA ZHU ([id number]) Female, Age: 43; Active Group: IRP and Transplant; IRP MD: VIKKI ELMORE MD; IRTP Encounter: 08/30/2023 Lab Result Details: Lab Info Patient Name: NIURKA ZHU Clinic ID: [id number] HPN Episode Start Date: IRP Encounter Date: 08/30/2023 Lab Collected Date: 09/20/2023 Recorded Date: 09/24/2023 Lab Source: Lab Phone: Lab Collected 09/20/2023 MMA (nmol/L): 0.27 [facility] 09-25-2023 Telephone encounter Note Potassium and magnesium low. In virtual visit last month, patient taking 2 tabs of mag after meals (6 per day), no potassium ordered. Vitamin A, E and D low. Pt was instructed to start DEKAPLus. Also taking vitamin D twice weekly. MMA still pending. Attempted to call patient however unable to leave message. MC message sent to call office. REcommendations: Vitamin [...] to discuss above plan. Comfort Eller RD [facility] Work Phone: 09-24-2023 Telephone encounter Note Patient: NIURKA ZHU ([id number]) Female, Age: 43; Active Group: IRP and Transplant; IRP MD: VIKKI ELMORE MD; IRTP Encounter: 08/30/2023 Lab Result Details: Lab Info Patient Name: NIURKA ZHU Clinic ID: [id number] HPN Episode Start Date: IRP Encounter Date: [...] B12 (pg/mL): 284 ([phone]) In process: MMA [facility] 08-30-2023 History of Present illness Narrative [...] if needed Vikki Elmore MD 08/30/2023 Staff Special Education Superintendent, [facility] [place] ========= PRIMARY PROBLEM: short bowel syndrome INTERVAL [...] hours. (Patient not taking: Reported on 04/07/2023) Lwmvyljoilmivlv-Rwocuocpk-NI (BROMFED DM) 2-30-10 mg/5 mL syrup Take [...] meals. (Patient not taking: Reported on 08/07/2022) 55475 mL 2 enoxaparin (LOVENOX) 100 mg/mL syrg [...] mL injections for 2 months. Administer at [facility] 3 mL 4 diphenoxylate-atropine (LOMOTIL) [...] Tissues: No significant finding. Lower thorax: Unremarkable. Lubricating Specialist (topogram) images: No additional findings. PHYSICAL EXAM: [...] visit. Either the patient or their legal customer service representative teller has been informed of the risks and [...] Hx of SMA thrombosis Depression; in homeless [facility] (03/05/19-11/2019) Bone Scan: 02/06/2016 z-score: -1.1 wiithin [...] 4 on 04/17/2019; h/o iron infusions at [facility] per patient report; h/o heavy menstrual periods [...] pain 01/11/2014 Depression DVT (deep venous thrombosis) ([facility]) July 2013 Hypertension, essential 01/13/2018 Low blood magnesium 03/02/2016 Protein C deficiency ([facility]) Protein S deficiency ([facility]) S/P cholecystectomy SBO (small bowel obstruction) ([facility]) 05/25/2016 Short bowel syndrome PAST SURGICAL HISTORY [...] Orders in EPIC; Coordinator to enter into [facility] Database only Patient Group: CGRT Follow Up: Return to clinic in [address] Elmore and RD. Signed by: Holly Burroughs RD, CARLOSC Date: August 30, 2023 [facility] STAFF PHYSICIAN NOTE OF PERSONAL INVOLVEMENT IN CARE I have reviewed the history obtained and documented by Gus Frost RD and I personally participated in the hendrickson components. I have discussed the case and management of the patient's care. The following comments revise or confirm relevant hendrickson components of the note. documented in this encounter [facility] 08-30-2023 History of Present illness Narrative Abstract has been moved to virtual visit with Dr Elmore on 08/30/23. Post clinic care coordination completed. Holly Burroughs RD, CNSC documented in this encounter [facility] 08-27-2023 Miscellaneous Notes Call to patient. [...] like the patient did not check her iLumen message 08/07 when appt was adjusted from in person to video? Will try again to contact her. Savanah Toro RD, LD, CNS, CCTD [facility] ; VM-Pt returning a call to the office. Not sure who called. [phone] documented in this encounter [facility] 07-17-2023 Miscellaneous Notes Pt has not obtained overdue labs at this time. Will delete BMP and Mg from database and re-evaluate need at next RTC. Holly Burroughs RD, [facility] documented in this encounter [facility] 06-24-2023 Miscellaneous Notes I have reviewed [...] Linda Kilgore RD documented in this encounter [facility] 06-24-2023 Miscellaneous Notes Call to patient [...] epic Linda Kilgore RD Patient: NIURKA ZHU ([id number]) Female, Age: 43; Active Group: IRP and Transplant; IRP MD: VIKKI ELMORE MD; IRTP Encounter: 06/04/2023 Lab Result Details: Lab Info Patient Name: NIURKA ZHU Clinic ID: [id number] HPN Episode Start Date: IRP Encounter Date: [...] 66 (L: 80-155) documented in this encounter [facility] 06-20-2023 Miscellaneous Notes I have reviewed [...] Linda Kilgore RD documented in this encounter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 Status Reason Start Date Expiration Date V isits Requested Visits Authorized [id number] Pending Review 1 1 Health Concerns Infection [...] section and content) DATE CREATED AUTHOR 12/17/2018 [facility] ([place]) DATE CREATED AUTHOR AUTHOR'S ORGANIZ ATION 03/21/2023 [facility] DATE CREATED AUTHOR AUTHOR'S ORGANIZ ATION 06/22/2023 [facility] DATE CREATED AUTHOR AUTHOR'S ORGANIZ ATION 01/21/2025 [facility] DATE CREATED AUTHOR AUTHOR'S ORGANIZ ATION 01/22/2025 [facility] [place] Goals (unrecognized section and content) Goals may [...] or prosecute any alcohol or drug abuse patient.[facility] HospitalIn the event this information is protected by the Federal Confidentiality of Alcohol and Drug Abuse Patient Records regulations: The Federal rules restrict any use of the information to criminally investigate or prosecute any alcohol or drug abuse patient.[facility] HospitalIn the event this information is protected by the Federal Confidentiality of Alcohol and Drug Abuse Patient Records regulations: The Federal rules restrict any use of the information to criminally investigate or prosecute any alcohol or drug abuse patient.[facility] HospitalIn the event this information is protected by the Federal Confidentiality of Alcohol and Drug Abuse Patient Records regulations: The Federal rules restrict any use of the information to criminally investigate or prosecute any alcohol or drug abuse patient.[facility] HospitalIn the event this information is protected by the Federal Confidentiality of Alcohol and Drug Abuse Patient Records regulations: The Federal rules restrict any use of the information to criminally investigate or prosecute any alcohol or drug abuse patient.[facility] HospitalIn the event this information is protected by the Federal Confidentiality of Alcohol and Drug Abuse Patient Records regulations: The Federal rules restrict any use of the information to criminally investigate or prosecute any alcohol or drug abuse patient.[facility] HospitalIn the event this information is protected by the Federal Confidentiality of Alcohol and Drug Abuse Patient Records regulations: The Federal rules restrict any use of the information to criminally investigate or prosecute any alcohol or drug abuse patient.[facility] HospitalIn the event this information is protected by the Federal Confidentiality of Alcohol and Drug Abuse Patient Records regulations: The Federal rules restrict any use of the information to criminally investigate or prosecute any alcohol or drug abuse patient.[facility] HospitalIn the event this information is protected by the Federal Confidentiality of Alcohol and Drug Abuse Patient Records regulations: The Federal rules restrict any use of the information to criminally investigate or prosecute any alcohol or drug abuse patient.[facility] HospitalIn the event this information is protected by the Federal Confidentiality of Alcohol and Drug Abuse Patient Records regulations: The Federal rules restrict any use of the information to criminally investigate or prosecute any alcohol or drug abuse patient.[facility] HospitalIn the event this information is protected by the Federal Confidentiality of Alcohol and Drug Abuse Patient Records regulations: The Federal rules restrict any use of the information to criminally investigate or prosecute any alcohol or drug abuse patient.[facility] HospitalIn the event this information is protected by the Federal Confidentiality of Alcohol and Drug Abuse Patient Records regulations: The Federal rules restrict any use of the information to criminally investigate or prosecute any alcohol or drug abuse patient.[facility] HospitalIn the event this information is protected by the Federal Confidentiality of Alcohol and Drug Abuse Patient Records regulations: The Federal rules restrict any use of the information to criminally investigate or prosecute any alcohol or drug abuse patient.[facility] HospitalIn the event this information is protected by the Federal Confidentiality of Alcohol and Drug Abuse Patient Records regulations: The Federal rules restrict any use of the information to criminally investigate or prosecute any alcohol or drug abuse patient.[facility] HospitalIn the event this information is protected by the Federal Confidentiality of Alcohol and Drug Abuse Patient Records regulations: The Federal rules restrict any use of the information to criminally investigate or prosecute any alcohol or drug abuse patient.[facility] HospitalIn the event this information is protected by the Federal Confidentiality of Alcohol and Drug Abuse Patient Records regulations: The Federal rules restrict any use of the information to criminally investigate or prosecute any alcohol or drug abuse patient.[facility] HospitalIn the event this information is protected by the Federal Confidentiality of Alcohol and Drug Abuse Patient Records regulations: The Federal rules restrict any use of the information to criminally investigate or prosecute any alcohol or drug abuse patient.[facility] HospitalIn the event this information is protected by the Federal Confidentiality of Alcohol and Drug Abuse Patient Records regulations: The Federal rules restrict any use of the information to criminally investigate or prosecute any alcohol or drug abuse patient.[facility] HospitalIn the event this information is protected by the Federal Confidentiality of Alcohol and Drug Abuse Patient Records regulations: The Federal rules restrict any use of the information to criminally investigate or prosecute any alcohol or drug abuse patient.[facility] HospitalIn the event this information is protected by the Federal Confidentiality of Alcohol and Drug Abuse Patient Records regulations: The Federal rules restrict any use of the information to criminally investigate or prosecute any alcohol or drug abuse patient.[facility] HospitalIn the event this information is protected by the Federal Confidentiality of Alcohol and Drug Abuse Patient Records regulations: The Federal rules restrict any use of the information to criminally investigate or prosecute any alcohol or drug abuse patient.[facility] HospitalIn the event this information is protected by the Federal Confidentiality of Alcohol and Drug Abuse Patient Records regulations: The Federal rules restrict any use of the information to criminally investigate or prosecute any alcohol or drug abuse patient.[facility] HospitalIn the event this information is protected by the Federal Confidentiality of Alcohol and Drug Abuse Patient Records regulations: The Federal rules restrict any use of the information to criminally investigate or prosecute any alcohol or drug abuse patient.[facility] HospitalIn the event this information is protected by the Federal Confidentiality of Alcohol and Drug Abuse Patient Records regulations: The Federal rules restrict any use of the information to criminally investigate or prosecute any alcohol or drug abuse patient.[facility] HospitalIn the event this information is protected by the Federal Confidentiality of Alcohol and Drug Abuse Patient Records regulations: The Federal rules restrict any use of the information to criminally investigate or prosecute any alcohol or drug abuse patient.[facility] HospitalIn the event this information is protected by the Federal Confidentiality of Alcohol and Drug Abuse Patient Records regulations: The Federal rules restrict any use of the information to criminally investigate or prosecute any alcohol or drug abuse patient.[facility] HospitalIn the event this information is protected by the Federal Confidentiality of Alcohol and Drug Abuse Patient Records regulations: The Federal rules restrict any use of the information to criminally investigate or prosecute any alcohol or drug abuse patient.[facility] HospitalIn the event this information is protected by the Federal Confidentiality of Alcohol and Drug Abuse Patient Records regulations: The Federal rules restrict any use of the information to criminally investigate or prosecute any alcohol or drug abuse patient.[facility] HospitalIn the event this information is protected by the Federal Confidentiality of Alcohol and Drug Abuse Patient Records regulations: The Federal rules restrict any use of the information to criminally investigate or prosecute any alcohol or drug abuse patient.[facility] HospitalIn the event this information is protected by the Federal Confidentiality of Alcohol and Drug Abuse Patient Records regulations: The Federal rules restrict any use of the information to criminally investigate or prosecute any alcohol or drug abuse patient.[facility] HospitalIn the event this information is protected by the Federal Confidentiality of Alcohol and Drug Abuse Patient Records regulations: The Federal rules restrict any use of the information to criminally investigate or prosecute any alcohol or drug abuse patient.[facility] HospitalIn the event this information is protected by the Federal Confidentiality of Alcohol and Drug Abuse Patient Records regulations: The Federal rules restrict any use of the information to criminally investigate or prosecute any alcohol or drug abuse patient.[facility] HospitalIn the event this information is protected by the Federal Confidentiality of Alcohol and Drug Abuse Patient Records regulations: The Federal rules restrict any use of the information to criminally investigate or prosecute any alcohol or drug abuse patient.[facility] HospitalIn the event this information is protected by the Federal Confidentiality of Alcohol and Drug Abuse Patient Records regulations: The Federal rules restrict any use of the information to criminally investigate or prosecute any alcohol or drug abuse patient.[facility] HospitalIn the event this information is protected by the Federal Confidentiality of Alcohol and Drug Abuse Patient Records regulations: The Federal rules restrict any use of the information to criminally investigate or prosecute any alcohol or drug abuse patient.[facility] HospitalIn the event this information is protected by the Federal Confidentiality of Alcohol and Drug Abuse Patient Records regulations: The Federal rules restrict any use of the information to criminally investigate or prosecute any alcohol or drug abuse patient.[facility] HospitalIn the event this information is protected by the Federal Confidentiality of Alcohol and Drug Abuse Patient Records regulations: The Federal rules restrict any use of the information to criminally investigate or prosecute any alcohol or drug abuse patient.[facility] HospitalIn the event this information is protected by the Federal Confidentiality of Alcohol and Drug Abuse Patient Records regulations: The Federal rules restrict any use of the information to criminally investigate or prosecute any alcohol or drug abuse patient.[facility] HospitalIn the event this information is protected by the Federal Confidentiality of Alcohol and Drug Abuse Patient Records regulations: The Federal rules restrict any use of the information to criminally investigate or prosecute any alcohol or drug abuse patient.[facility] HospitalIn the event this information is protected by the Federal Confidentiality of Alcohol and Drug Abuse Patient Records regulations: The Federal rules restrict any use of the information to criminally investigate or prosecute any alcohol or drug abuse patient.[facility] HospitalIn the event this information is protected by the Federal Confidentiality of Alcohol and Drug Abuse Patient Records regulations: The Federal rules restrict any use of the information to criminally investigate or prosecute any alcohol or drug abuse patient.[facility] HospitalIn the event this information is protected by the Federal Confidentiality of Alcohol and Drug Abuse Patient Records regulations: The Federal rules restrict any use of the information to criminally investigate or prosecute any alcohol or drug abuse patient.[facility] HospitalIn the event this information is protected by the Federal Confidentiality of Alcohol and Drug Abuse Patient Records regulations: The Federal rules restrict any use of the information to criminally investigate or prosecute any alcohol or drug abuse patient.[facility] HospitalIn the event this information is protected by the Federal Confidentiality of Alcohol and Drug Abuse Patient Records regulations: The Federal rules restrict any use of the information to criminally investigate or prosecute any alcohol or drug abuse patient.[facility] HospitalIn the event this information is protected by the Federal Confidentiality of Alcohol and Drug Abuse Patient Records regulations: The Federal rules restrict any use of the information to criminally investigate or prosecute any alcohol or drug abuse patient.[facility] HospitalIn the event this information is protected by the Federal Confidentiality of Alcohol and Drug Abuse Patient Records regulations: The Federal rules restrict any use of the information to criminally investigate or prosecute any alcohol or drug abuse patient.[facility] HospitalIn the event this information is protected by the Federal Confidentiality of Alcohol and Drug Abuse Patient Records regulations: The Federal rules restrict any use of the information to criminally investigate or prosecute any alcohol or drug abuse patient.[facility] HospitalIn the event this information is protected by the Federal Confidentiality of Alcohol and Drug Abuse Patient Records regulations: The Federal rules restrict any use of the information to criminally investigate or prosecute any alcohol or drug abuse patient.[facility] HospitalIn the event this information is protected by the Federal Confidentiality of Alcohol and Drug Abuse Patient Records regulations: The Federal rules restrict any use of the information to criminally investigate or prosecute any alcohol or drug abuse patient.[facility] HospitalIn the event this information is protected by the Federal Confidentiality of Alcohol and Drug Abuse Patient Records regulations: The Federal rules restrict any use of the information to criminally investigate or prosecute any alcohol or drug abuse patient.[facility] HospitalIn the event this information is protected by the Federal Confidentiality of Alcohol and Drug Abuse Patient Records regulations: The Federal rules restrict any use of the information to criminally investigate or prosecute any alcohol or drug abuse patient.[facility] HospitalIn the event this information is protected by the Federal Confidentiality of Alcohol and Drug Abuse Patient Records regulations: The Federal rules restrict any use of the information to criminally investigate or prosecute any alcohol or drug abuse patient.[facility] HospitalIn the event this information is protected by the Federal Confidentiality of Alcohol and Drug Abuse Patient Records regulations: The Federal rules restrict any use of the information to criminally investigate or prosecute any alcohol or drug abuse patient.[facility] HospitalIn the event this information is protected by the Federal Confidentiality of Alcohol and Drug Abuse Patient Records regulations: The Federal rules restrict any use of the information to criminally investigate or prosecute any alcohol or drug abuse patient.[facility] HospitalIn the event this information is protected by the Federal Confidentiality of Alcohol and Drug Abuse Patient Records regulations: The Federal rules restrict any use of the information to criminally investigate or prosecute any alcohol or drug abuse patient.[facility] HospitalIn the event this information is protected by the Federal Confidentiality of Alcohol and Drug Abuse Patient Records regulations: The Federal rules restrict any use of the information to criminally investigate or prosecute any alcohol or drug abuse patient.[facility] HospitalIn the event this information is protected by the Federal Confidentiality of Alcohol and Drug Abuse Patient Records regulations: The Federal rules restrict any use of the information to criminally investigate or prosecute any alcohol or drug abuse patient.[facility] HospitalIn the event this information is protected by the Federal Confidentiality of Alcohol and Drug Abuse Patient Records regulations: The Federal rules restrict any use of the information to criminally investigate or prosecute any alcohol or drug abuse patient.[facility] HospitalIn the event this information is protected by the Federal Confidentiality of Alcohol and Drug Abuse Patient Records regulations: The Federal rules restrict any use of the information to criminally investigate or prosecute any alcohol or drug abuse patient.[facility] Reason for Visit (unrecogniz ed section and content) Reason Comments Dental Problem abscess tooth x toda y Reason Comments ED Follow-up [facility] 11/12/21 from [facility] Reason Comments Insurance Authorization [...] Update Post clinic Reason Comments New Patient Reason Comments New Patient Evaluation Specialty Diagnoses / Procedures Referred By Reshma jacobs Referred To Contact Diagnoses Protein C deficiency (HCC) Protein S deficiency (HCC) Procedures OFFICE/OUTPATIENT [facility] 60 MINUTES Vikki Elmore MD [place] [id number] Phone: tel: fax: Referral ID Status Reason Start Date Expiration Date V isits Requested Visits Authorized [id number] Closed PCP Requested Referral 12/30/2024 12/30/2025 1 1 Care Teams (unrecognized sec tion and content) Bending Roll Hand Relationship Specialty Start Date End Date Starr Motley MD [address], [place] [id number] PCP - General Family Practice 06/11/17 Christie Ling, RD [address] [place] [address] [facility] Rehab Coordinator 11/15/20 Andrew Bear MD, PhD [address] [place], [place] [id number] [facility] 11/15/20 Bending Roll Hand Relationship Specialty Start Date End Date Starr Motley MD [address], [place] [address] PCP - General Family Practice 06/11/17 Christie Ling, RD [address] [place] [address] [facility] Coordinator 11/15/20 Andrew Bear MD, PhD [address] [place] [address] [facility] 11/15/20 Bending Roll Hand Relationship Specialty Start Date End Date Starr Motley MD [address] [place] [address] PCP - General Family Practice 06/11/[address] [place] [address] [facility] Coord[facility] 11/15/20 Andrew Bear MD, PhD [address] [place] [address] [facility] 11/15/20 Bending Roll Hand Relationship Specialty Start Date End Date Starr Motley MD [address], [place] [id number] [phone] PCP - General Family Medicine 06/11/[address] [place] [address] [facility] Rehab Coordinator 11/15/20 Andrew Bear MD, PhD [address] [place] [address] [facility] [place] 11/15/20 Bending Roll Hand Relationship Specialty Start Date End Date Starr Motley MD [address] [place] [address] PCP - General Family Medicine 06/11/17 Christie Ling, LIZZY [address] [place] [address] [facility] Rehab Coordinator 11/15/20 Andrew Bear MD, PhD [address] [place] [address] [facility] [place] 11/15/20 Team Status: Active Member Role Status [...] Dr. Ganesh Ma DO Emergency Provider Active Bending Roll Hand Relationship Specialty Start Date End Date Starr Motley MD [address], [place] [address] PCP - General Family Medicine 06/11/17 Christie Ling, LIZZY [address] [place] [address] [facility] Rehab Coordinator 11/15/20 Andrew Bear MD, PhD [address] [place] [address] [facility] [place] 11/15/20 Team Status: Inactive Member Role Status Dates Dr. Starr Motley MD Primary Care Provider, Referr ing Provider Active Francoise Brar DIRECTOR TELECOMMUNICATIONS, DIRECTOR TELECOMMUNICATIONS-C Attending Provider Active Team Status: Inactive Member Role Status Dates Dr. Starr Motley MD Primary Care Provider Active Dr. Ganesh Ma DO Attending Provider, Emergency Asif torres Active Team Status: Inactive Member Role Status Dates Dr. Starr Motley MD Primary Care Provider Active Francoise Brar DIRECTOR TELECOMMUNICATIONS, DIRECTOR TELECOMMUNICATIONS-C Attending Provider, Referring Provider Active Bending Roll Hand Relationship Specialty Start Date End Date Starr Motley MD [address] [place] [address] PCP - General Family Medicine 06/11/[address] [place] [address] Gut Rehab Coordinator 11/15/20 Andrew Bear MD, PhD [address] [place] [address] [facility] 11/15/20 Bending Roll Hand Relationship Specialty Start Date End Date Starr Motley MD [address] [place], [place] [id number] PCP - General Family Medicine 06/11/17 Christie Ling, RD [address] [place] [address] Gut Rehab Coordinator 11/15/20 Andrew Bear MD, PhD [address] [place] [address] [facility] 11/15/20 Team Status: Inactive Member Role Status Dates Dr. Starr Motley MD Primary Care Provider Active Francoise Brar DIRECTOR TELECOMMUNICATIONS, DIRECTOR TELECOMMUNICATIONS-C Attending Provider Active Team Status: Inactive Member Role Status Dates Dr. Starr Motley MD Primary Care Provider Active Dr. Guanako Richardson MD Emergency Provider Active Bending Roll Hand Relationship Specialty Start Date End Date Starr Motley MD [address] [place] [address] PCP - General Family Medicine 06/11/[address] [place], [place] [id number] Gut Rehab Coordinator 11/15/20 Andrew Bear MD, PhD [address] [place], [place] [phone] [facility] 11/15/20 Bending Roll Hand Relationship Specialty Start Date End Date Starr Motley MD [address] [place], [place] [id number] PCP - General Family Medicine 06/11/[address] [place] [address] Gut Rehab Coordinator 11/15/20 Andrew Bear MD, PhD [address] [place] [address] [facility] 11/15/20 Team Status: Inactive Member Role Status Dates Dr. Starr Motley MD Primary Care Provider, Referr ing Provider Active Sonia Lopez CNM Attending Provider Active Team Status: Inactive Member Role Status Dates Dr. Starr Motley MD Primary Care Provider Active Dr. Sukhdev Pennington MD Attending Provider, Emergency Provider Active Bending Roll Hand Relationship Specialty Start Date End Date Starr Motley MD [address] [place] [address] PCP - General Family Medicine 06/11/[address] [place] [address] Gut Rehab Coordinator 11/15/20 Andrew Bear MD, PhD [address] [place] [id number] [facility] 11/15/20 Team Status: Inactive Member Role Status Dates Dr. Starr Motley MD Primary Care Provider Active Dr. Toby Francis DO Emergency Provider Active Bending Roll Hand Relationship Specialty Start Date End Date Starr Motley MD [address] [place], [place] 815251 PCP - General Family Medicine 06/11/[address] [place], [place] [id number] Gut Rehab Coordinator 11/15/20 Andrew Bear MD, PhD [address] [place], [place] [phone] [facility] 11/15/20 Bending Roll Hand Relationship Specialty Start Date End Date Starr Motley [address] [place], [place] 978341 PCP - General Family Medicine 03/19/23 Bending Roll Hand Relationship Specialty Start Date End Date Starr Motley [address] [place], [place] 433460 [phone] PCP - General Family Medicine 03/19/23 Bending Roll Hand Relationship Specialty Start Date End Date Starr Motley MD [address] [place], [place] 820007 [phone] PCP - General Family Medicine 06/11/17 Christie Ling, RD [address] [place], [place] [id number] Gut Rehab Coordinator 11/15/20 Andrew Bear MD, PhD [address] [place], [place] [phone] [facility] 11/15/20 Bending Roll Hand Relationship Specialty [place] [address] [place] [phone] PCP - General Family Medicine 06/11/[address] [place] [place], [place] [id number] Gut Rehab Coordinator 11/15/20 Andrew Bear MD, PhD [address] [place], [place] [phone] [facility] 11/15/20 Bending Roll Hand Relationship Specialty Start Date End Date Starr Motley MD [address] [place] [address] [phone] PCP - General Family Medicine 06/11/[address] [facility] [place], [place] [id number] Gut Rehab Coordinator 11/15/20 Andrew Bear MD, PhD [address] [place] [address] [facility] 11/15/20 Bending Roll Hand Relationship Specialty Start Date End Date Starr Motley MD [address] [place] [address] PCP - General Family Medicine 06/11/[address] [place] [address] Gut Rehab Coordinator 11/15/20 Andrew Bear MD, PhD [address] [place] [address] [facility] 11/15/20 Team Status: Inactive Member Role Status Dates Dr. Starr Motley MD Primary Care Provider Active Dr. Toby Francis DO Attending Provider, Emergency Asif torres Active Team Status: Inactive Member Role Status Dates Dr. Starr Motley MD Primary Care Provider Active Dr. Douglas Salgado MD Emergency Provider Active Bending Roll Hand Relationship Specialty Start Date End Date Starr Motley MD [address] [place] [address] [phone] PCP - General Family Medicine 06/11/[address] [place], [place] [id number] Gut Rehab Coordinator 11/15/20 Andrew Bear MD, PhD [address] [place] [address] [facility] 11/15/20 Bending Roll Hand Relationship Specialty Start Date End Date Starr Motley MD [address] [place] [address] PCP - General Family Medicine 06/11/[address] [place], [place] [id number] Gut Rehab Coordinator 11/15/20 Andrew Bear MD, PhD [address] [place], [place] [phone] [facility] 11/15/20 Bending Roll Hand Relationship Specialty Start Date End Date Starr Motley MD [address] [place], [place] 145801 PCP - General Family Medicine 06/11/[address] [place], [place] 1829695 Gut Rehab Coordinator 11/15/20 Andrew Bear MD, PhD [address] [place], [place] [phone] [facility] 11/15/20 Bending Roll Hand Relationship Specialty Start Date End Date Starr Motley MD [address] [place], [place] 380991 PCP - General Family Medicine 06/11/[address] [place], [place] 1142795 Gut Rehab Coordinator 11/15/20 Andrew Bear MD, PhD [address] [place], [place] 5186695 [facility] 11/15/20 Bending Roll Hand Relationship Specialty Start Date End Date Starr Motley MD [address] [place], [place] [id number] PCP - General Family Medicine 06/11/[address] [place] [address] Gut Rehab Coordinator 11/15/20 Andrew Bear MD, PhD [address] [place], [place] [phone] [facility] 11/15/20 Bending Roll Hand Relationship Specialty Start Date End Date Starr Motley MD [address] [place], [place] 648691 PCP - General Family Medicine 06/11/[address] [facility] [place] [place] 0769195 Gut Rehab Coordinator 11/15/20 Andrew Bear MD, PhD [address] [place], [place] [phone] [facility] 11/15/20 Bending Roll Hand Relationship Specialty Start Date End Date Starr Motley MD [address] [place], [place] 036051 PCP - General Family Medicine 06/11/[address] [place], [place] 6824395 Gut Rehab Coordinator 11/15/20 Andrew Bear MD, PhD [address] [place] [address] [facility] 11/15/20 Bending Roll Hand Relationship Specialty Start Date End Date Starr Motley MD [address] [place], [place] 625531 PCP - General Family Medicine 06/11/[address] [place], [place] [id number] Gut Rehab Coordinator 11/15/20 Andrew Bear MD, PhD [address] [place], [place] 9166995 [facility] 11/15/20 Bending Roll Hand Relationship Specialty Start Date End Date Starr Motley MD [address] [place], [place] [phone] PCP - General Family Medicine 06/11/[address] [facility] [place], [place] 4274695 Gut Rehab Coordinator 11/15/20 Andrew Bear MD, PhD [address] [place], [place] 7241895 [facility] 11/15/20 Bending Roll Hand Relationship Specialty Start Date End Date Starr Motley MD [address] [place], [place] 492651 PCP - General Family Medicine 06/11/[address] [place], [place] [id number] Gut Rehab Coordinator 11/15/20 Andrew Bear MD, PhD [address] [place] [address] [facility] 11/15/20 Bending Roll Hand Relationship Specialty Start Date End Date Starr Motley MD [address] [place] [address] PCP - General Family Medicine 06/11/[address] [place] [address] Gut Rehab Coordinator 11/15/20 Andrew Bear MD, PhD [address] [place] [address] [facility] 11/15/20 Bending Roll Hand Relationship Specialty Start Date End Date Starr Motley MD [address] [place] [address] PCP - General Family Medicine 06/11/[address] [place] [address] Gut Rehab Coordinator 11/15/20 Andrew Bear MD, PhD [address] [place] [address] [facility] 11/15/20 Bending Roll Hand Relationship Specialty Start Date End Date Starr Motley MD [address] [place] [address] PCP - General Family Medicine 06/11/[address] [place] [address] Gut Rehab Coordinator 11/15/20 Andrew Bear MD, PhD [address] [place] [address] [facility] 11/15/20 Bending Roll Hand Relationship Specialty Start Date End Date Starr Motley MD [address] [place], [place] 545414 [phone] PCP - General Family Medicine 06/11/[address] [place], [place] 6108095 Gut Rehab Coordinator 11/15/20 Andrew Bear MD, PhD [address] [place], [place] 7941595 [facility] 11/15/20 Merlyn Boyer APRN.LEGAL FILE CLERK [address] [place] [address] Assistant Finance Director Family [facility] 04/26/24 Bob Aviles APRN.LEGAL FILE CLERK [address] [place] [address] [facility] 05/05/24 Bending Roll Hand Relationship Specialty Start Date End Date Starr Motley MD [address] [place] [address] PCP - General Family Medicine 06/11/[address] [place] [address] Gut Rehab Coordinator 11/15/20 Andrew Bear MD, PhD [address] [place] [address] [facility] 11/15/20 Merlyn Boyer APRN.LEGAL FILE CLERK [address] [place] [address] Assistant Finance Director Family [facility] 04/26/24 Bob Aviles APRN.LEGAL FILE CLERK [address] [place] [address] Assistant Finance Director Family [facility] 05/05/24 Bending Roll Hand Relationship Specialty Start Date End Date Starr Motley MD [address] [place] [address] PCP - General Family Medicine 06/11/[address] [place] [address] Gut Rehab Coordinator 11/15/20 Andrew Bear MD, PhD [address] [place] [address] [facility] 11/15/20 Merlyn Boyer, LOGISTICS PROJECT MANAGER.LEGAL FILE CLERK [address] [place] [address] [facility] 04/26/24 Bob Aviles APRN.LEGAL FILE CLERK [address] [place] [address] Assistant Finance Director [facility] 05/05/24 Bending Roll Hand Relationship Specialty Start Date End Date Starr Motley MD [address] [place] [address] PCP - General Family Medicine 06/11/[address] [place], [place] 2843895 Gut Rehab Coordinator 11/15/20 Andrew Bear MD, PhD [address] [place], [place] [phone] [facility] 11/15/20 Merlyn Boyer APRN.LEGAL FILE CLERK [address] [place] [address] [facility] 04/26/24 Bob Aviles APRN.LEGAL FILE CLERK [address] [place] [address] [facility] 05/05/24 Bending Roll Hand Relationship Specialty Start Date End Date Starr Motley MD [address] [place] [address] PCP - General Family Medicine 06/11/[address] [place], [place] [id number] Gut Rehab Coordinator 11/15/20 Andrew Bear MD, PhD [address] [place], [place] 5978195 [facility] 11/15/20 Merlyn Boyer APRN.LEGAL FILE CLERK [address] [place] [address] [facility] 04/26/24 Bob Aviles APRN.LEGAL FILE CLERK [address] [place] [address] [facility] 05/05/24 Bending Roll Hand Relationship Specialty Start Date End Date Starr Motley MD [address] [place], [place] 921861 [phone] PCP - General Family Medicine 06/11/[address] [place], [place] 6065295 Gut Rehab Coordinator 11/15/20 Andrew Bear MD, PhD [address] [place], [place] 1034795 [facility] 11/15/20 Merlyn Boyer APRN.LEGAL FILE CLERK [address] [place] [address] [facility] 04/26/24 Bob Aviles APRN.LEGAL FILE CLERK [address] [place] [address] [facility] 05/05/24 Bending Roll Hand Relationship Specialty Start Date End Date Starr Motley MD [address] [place] [address] PCP - General Family Medicine 06/11/[address] [place], [place] 7886695 Gut Rehab Coordinator 11/15/20 Andrew Bear MD, PhD [address] [place], [place] 0522395 [facility] 11/15/20 Merlyn Boyer APRN.LEGAL FILE CLERK [address] [place] [address] Assistant Finance Director Family [facility] 04/26/24 Bob Aviles APRN.LEGAL FILE CLERK [address] [place] [address] Assistant Finance Director [facility] 05/05/24 Bending Roll Hand Relationship Specialty Start Date End Date Starr Motley MD [address] [place] [address] PCP - General Family Medicine 06/11/[address] [facility] [place] [place] [phone] [facility] Rehab Coordinator 11/15/20 Andrew Bear MD, PhD [address] [place] [address] [facility] 11/15/20 Merlyn Boyer APRN.LEGAL FILE CLERK [address] [place] [address] Assistant Finance Director [facility] 04/26/24 Bob Aviles APRN.LEGAL FILE CLERK [address] [place] [address] Assistant Finance Director [facility] 05/05/24 Bending Roll Hand Relationship Specialty Start Date End Date Starr Motley MD [address] [place] [address] PCP - General Family Medicine 06/11/[address] [place], [place] 4269195 Gut Rehab Coordinator 11/15/20 Andrew Bear MD, PhD [address] [place] [address] [facility] 11/15/20 Merlyn Boyer APRN.LEGAL FILE CLERK [address] [place] [address] [facility] 04/26/24 Bob Aviles APRN.LEGAL FILE CLERK [address] [place] [address] [facility] 05/05/24 Bending Roll Hand Relationship Specialty Start Date End Date Starr Motley MD [address] [place] [address] PCP - General Family Medicine 06/11/[address] [place] [address] Gut Rehab Coordinator 11/15/20 Andrew Bear MD, PhD [address] [place] [address] [facility] 11/15/20 Merlyn Boyer APRN.LEGAL FILE CLERK [address] [place] [address] [facility] 04/26/24 Bob Aviles APRN.LEGAL FILE CLERK [address] [place] [address] [facility] 05/05/24 Bending Roll Hand Relationship Specialty Start Date End Date Starr Motley MD [address] [place] [address] PCP - General Family Medicine 06/11/[address] [place], [place] 0553895 Gut Rehab Coordinator 11/15/20 Andrew Bear MD, PhD [address] [place], [place] [phone] [facility] 11/15/20 Merlyn Boyer, LOGISTICS PROJECT MANAGER.LEGAL FILE CLERK [address] [place] [address] Assistant Finance Director Family Medicine 04/26/24 Bob Aviles, LOGISTICS PROJECT MANAGER.LEGAL FILE CLERK [address] [place] [address] Assistant Finance Director Family Medicine 05/05/24 Bending Roll Hand Relationship Specialty Start Date End Date Starr Motley MD [address] [place] [address] PCP - General Family Medicine 06/11/[address] [place], [place] [id number] Gut Rehab Coordinator 11/15/20 Andrew Bear MD, PhD [address] [place], [place] 1247595 [facility] 11/15/20 Merlyn Boyer, LOGISTICS PROJECT MANAGER.LEGAL FILE CLERK [address] [place] [address] Assistant Finance Director Family [facility] 04/26/24 Bob Aviles, LOGISTICS PROJECT MANAGER.LEGAL FILE CLERK [address] [place] [address] Assistant Finance Director [facility] 05/05/24 Bending Roll Hand Relationship Specialty Start Date End Date Starr Motley MD [address] [place] [address] PCP - General Family Medicine 06/11/[address], [place] 5383295 Gut Rehab Coordinator 11/15/20 Andrew Bear MD, PhD [address] [place], [place] 3026195 [facility] 11/15/20 Merlyn Boyer, LOGISTICS PROJECT MANAGER.LEGAL FILE CLERK [address] [place] [address] [facility] 04/26/24 Bob Aviles, LOGISTICS PROJECT MANAGER.LEGAL FILE CLERK [address] [place] [address] [facility] 05/05/24 Bending Roll Hand Relationship Specialty Start Date End Date Starr Motley MD [address] [place] [address] PCP - General Family Medicine 06/11/[address] [facility] [place], [place] 7928695 Gut Rehab Coordinator 11/15/20 Andrew Bear MD, PhD [address] [place], [place] 1132895 [facility] 11/15/20 Merlyn Boyer APRN.LEGAL FILE CLERK [address] [place] [address] [facility] 04/26/24 Bob Aviles APRN.LEGAL FILE CLERK [address] [place] [address] [facility] 05/05/24 Bending Roll Hand Relationship Specialty Start Date End Date Starr Motley MD [address] [place], [place] 280921 PCP - General Family Medicine 06/11/[address] [place], [place] 9937195 Gut Rehab Coordinator 11/15/20 Andrew Bear MD, PhD [address] [place], [place] [id number] [facility] 11/15/20 Merlyn Boyer APRN.LEGAL FILE CLERK [address] [place] [address] [facility] 04/26/24 09/30/24 Bob Aviles APRN.LEGAL FILE CLERK [address] [place] [address] [facility] 05/05/24 Bending Roll Hand Relationship Specialty Start Date End Date Starr Motley MD [address] [place], [place] 706381 PCP - General Family Medicine 06/11/[address] [place], [place] [id number] Gut Rehab Coordinator 11/15/20 Andrew Bear MD, PhD [address] [place] [address] [facility] 11/15/20 Bob Aviles APRN.LEGAL FILE CLERK [address] [place], [place] 262591 Assistant Finance Director [facility] 05/05/24 Bending Roll Hand Relationship Specialty Start Date End Date Starr Motley MD [address] [place], [place] 738008 [phone] PCP - General Family Medicine 06/11/[address] [facility] [place], [place] [phone] [facility] Rehab Coordinator 11/15/20 Andrew Bear MD, PhD [address] [place] [address] [facility] 11/15/20 Bob Aviles APRN.LEGAL FILE CLERK [address] [place] [address] [facility] 05/05/24 Bending Roll Hand Relationship Specialty Start Date End Date Starr Motley MD [address] [place] [address] PCP - General Family Medicine 06/11/[address] [place] [address] [facility] Rehab Coordinator 11/15/20 Andrew Bear MD, PhD [address] [place] [address] [facility] 11/15/20 Bob Aviles APRN.LEGAL FILE CLERK [address] [place] [address] [facility] 05/05/24 Bending Roll Hand Relationship Specialty Start Date End Date Starr Motley MD [address] [place] [address] PCP - General Family Medicine 06/11/[address] [place], [place] 1666895 [facility] Rehab Coordinator 11/15/20 Andrew Bear MD, PhD [address] [place], [place] 7197095 [facility] 11/15/20 Bob Aviles APRN.LEGAL FILE CLERK [address] [place], [place] 32460617 [phone] Assistant Finance Director Family [facility] 05/05/24 Team Status: Active Member Role/Relationship Status Dates Dr. Starr Motley MD Primary Care Provider Active Team Status: Inactive Member Role/Relationship Status Dates Dr. Starr Motley MD Primary Care Provider Active Start: November 13, 2024 End: November 13, 2024 Dr. Ganesh Ma , DO Emergency Provider Active Start: November 13, 2024 End: November 13, 2024 Bending Roll Hand Relationship Specialty Start Date End Date Starr Motley MD [address] [place] [address] PCP - General Family Medicine 06/11/[address] [place] [address] Gut Rehab Coordinator 11/15/20 Andrew Bear MD, PhD [address] [place] [address] [facility] 11/15/20 Bob Aviles APRN.LEGAL FILE CLERK [address] [place] [address] Assistant Finance Director Family Medicine 05/05/24 Bending Roll Hand Relationship Specialty Start Date End Date Starr Motley MD [address] [place] [address] PCP - General Family Medicine 06/11/[address] [place] [address] Gut Rehab Coordinator 11/15/20 Andrew Bear MD, PhD [address] [place], [place] 6879395 [facility] 11/15/20 Bob Aviles APRN.LEGAL FILE CLERK [address] [place] [address] [facility] 05/05/24 Bending Roll Hand Relationship Specialty Start Date End Date Starr Motley MD [address] [place], [place] 817141 PCP - General Family Medicine 06/11/[address] [facility] [place], [place] 747[address]95 Gut Rehab Coordinator 11/15/20 Andrew Bear MD, PhD [address] [place], [place] 5697795 [facility] 11/15/20 Bob Aviles APRN.LEGAL FILE CLERK [address] [place] [address] [facility] 05/05/24 Bending Roll Hand Relationship Specialty Start Date End Date Satrr Motley MD [address] [place], [place] [id number] PCP - General [facility] Medicine 06/11/[address] [place], [place] [phone] [facility] Rehab Coordinator 11/15/20 Andrew Bear MD, PhD [address] [place], [place] 7836195 [facility] 11/15/20 Bob Aviles APRN.LEGAL FILE CLERK [address] [place] [address] [facility] 05/05/24 Bending Roll Hand Relationship Specialty Start Date End Date Starr Motley MD [address] [place], [place] 770831 PCP - General Family Medicine 06/11/[address] [place], [place] 7264595 Gut Rehab Coordinator 11/15/20 Andrew Bear MD, PhD [address] [place], [place] 9538195 [facility] 11/15/20 Bob Aviles APRN.LEGAL FILE CLERK [address] [place], [place] 999041 Assistant Finance Director [facility] 05/05/24 Bending Roll Hand Relationship Specialty Start Date End Date Starr Motley MD [address] [place], [place] [id number] PCP - General Family Medicine 06/11/[address] [place], [place] 9720295 [facility] Rehab Coordinator 11/15/20 Andrew Bear MD, PhD [address] [place], [place] [phone] [facility] 11/15/20 Bob Aviles APRN.LEGAL FILE CLERK [address] [place], [place] 483911 [facility] 05/05/24 Team Status: Inactive Member Role/Relationship Status [...] January 15, 2025 End: January 15, 2025 Team Status: Inactive Member Role/Relationship Status Dates Dr. Starr Motley MD Primary Care Provider Active Start: January 20, 2025 End: January 20, 2025 Dr. Angelina Patel MD Emergency Provider Active S tart: January 20, 2025 End: January 20, 2025 Bending Roll Hand Relationship Specialty Start Date End Date Starr Motley MD [address] [place], [place] [phone] PCP - General Family Medicine 06/11/[address] [place], [place] [id number] [facility] Rehab Coordinator 11/15/20 Andrew Bear MD, PhD [address] [place], [place] [phone] [facility] 11/15/20 Bob Aviles APRN.LEGAL FILE CLERK [address] [place], [place] 665611 Assistant Finance Director Family Medicine 05/05/24 Scheduled Active and Recently Administ ered Medications (unrecognized section and content) Medication Order 03/17/2023 03/18/2023 03/19/2023 ketorolac (Toradol) injection 15 mg (COMPLETED) 15 mg, IntraVENous, Once, On Sat03/19/23 at 1650, For 1 dose 1717 (Given - Provid er: Mihai Barraza, DOMINGO) sodium chloride 0.9 % bolus 1,000 mL (COMPLETED) 1,000 mL, IntraVENous, at 1,000 mL/hr, Administer over 1 Hours, Once, On Sat03/19/23 at 1650, For 1 dose 1717 (New Bag - Prov ider: Mihai Barraza [...] BE BASED ON THE PRIMARY CLINICAL RECORDS. [facility]. provides no warranty or guarantee of the accuracy or completeness of information in this document.
[2025-01-22] MEDS: HYDROcodone Bitartrate/Apap 5/325 Tablet PO (22:06)
[2025-01-22 22:24] VITALS: BP 112/69; PULSE 51; RESP 18; TEMP 36.6; O2SAT 51
== END 2025-01-22 22:25 | disposition home or self-care (01) ==
PROVIDERS: Emergency Provider Emergency Medicine; PCP Family Medicine; Visit Provider Emergency Medicine
DX: K04.7 Periapical abscess without sinus (principal); K02.9 Dental caries, unspecified; F17.290 Nicotine dependence, other tobacco product, uncomplicated
CPT/HCPCS: 99282

== ENCOUNTER 2025-02-19 08:25 | Emergency (ER) | payer MEDICAID, SELFPAY ==
[2025-02-19 08:26] VITALS: BP 139/101; PULSE 83; RESP 16; TEMP 36.5; O2SAT 99; BMI 25.9
--- NOTE | 2025-02-19 09:05 | EX.ED.DYSGE1 ---
HPI History of Present Illness Chief Complaint: General Illness Narrative Narrative: Patient is a 44-year-old female presenting to the emergency department for feeling unwell. Patient has a past medical history of short gut syndrome, protein S and C deficiency, hypokalemia, hypomagnesia, pelvic pain. Patient just had 2 g of mag infused on Saturday outpatient. Patient has multiple complaints and states these have been going on for a while. Gotten worse last night and today. States it feels like her stuff is off pertaining to her electrolytes. Endorses subjective chills, cough, intermittent sore throat, nausea and myalgias. She denies chest pain, SOB, abdominal pain, vomiting, diarrhea, dysuria or hematuria. Denies fevers. [facility] Medical History Anxiety Smoker Kidney stone Short gut syndrome Protein S deficiency Protein C deficiency Blood clotting disorder Home Medications ?Medication ?Instructions ?Recorded ?Last Taken ?Type ergocalciferol (vitamin D2) 1,250 50,000 unit PO MOTUWETH supplement 10/09/14 01/20/25 History mcg (50,000 unit) capsule calcium carbonate (Calcium 500) 500 mg PO BID #60 tabs 08/22/21 01/20/25 Rx [id number] 2.25 mg-folic 1 tab PO TID 10/31/21 Unknown History acid 100 [id number] acid tablet magnesium L-lactate 84 mg 252 mg (3 x 84 mg) PO TID 03/31/22 Unknown Rx tablet,extended release SUPPLEMENT #90 tabs clindamycin HCl 150 mg capsule 450 mg (3 x 150 mg) PO TID 10 days 01/20/25 Unknown Rx (Cleocin HCl) #90 caps cyanocobalamin (vitamin B-12) mcg 01/22/25 Unknown History 1,000 mcg/mL injection solution vitamin E (dl, acetate) 180 mg 180 mg PO DAILY 01/22/25 Unknown History (400 unit) capsule cephalexin 500 mg capsule 500 mg PO Q12 7 days #14 CAPSULES 02/19/25 Unknown Rx Allergy/AdvReac Type Severity Reaction Status Date / Time adhesive Allergy Itching Verified 02/19/25 08:29 amoxicillin (Amoxicillin) Allergy Hives Verified 02/19/25 08:29 Penicillins Allergy Hives Verified 02/19/25 08:29 Family History Grandmother Diabetes Heart disease Mother Heart disease Grandfather Lung cancer Liver cancer Brain cancer Surgical History History of removal of ovarian cyst S/P hernia repair STEPS procedure Hx of cholecystectomy Social History Smoking Status: Current every day smoker tobacco type: e-cigarettes alcohol intake: current alcohol intake frequency: holidays/special occasions only substance use type: does not use caffeine: Yes what type of physical activity do you participate in: none seatbelt use: always do you feel safe at home: Yes additional social history: - Lul Patient works with [employer] ROS ROS ED ROS Narrative see HPI EXAM Physical Exam Narrative Exam Narrative: Vital signs: Reviewed General: Alert and orientedx3. No acute distress HEENT: Head is normocephalic and atraumatic, sinuses nontender, pupils equal round and reactive. Nares are patent. Oropharynx and throat exams normal. Neck: Supple without lymphadenopathy nontender Cardiovascular: Regular rate and rhythm, no murmurs. No rubs or gallops. Normal S1 and S2 Respiratory: Clear to auscultation bilaterally. No wheezes, rales, rhonchi Abdominal: Soft and nontender. Normal bowel sounds. No guarding or rebound. Nonsurgical abdomen Extremities: No tenderness. No bruising. Normal range of motion. Normal sensation. Skin: No rash or redness. Neurological: Cranial nerves II through XII are grossly intact. Normal strength and sensation. Normal cerebellar function The rest of the physical exam is unremarkable Const Vital Signs: 02/19/25 08:26 02/19/25 08:26 02/19/25 10:26 Temperature 97.7 F L Temperature Source Oral Pulse Rate 83 74 Respiratory Rate 16 18 Respiratory Effort Normal Non-Labored Respiratory Pattern Normal Blood Pressure 139/101 H 128/99 H Blood Pressure Mean 113 108 Pulse Ox 99 99 Oxygen Delivery Method Room Air 02/19/25 12:00 02/19/25 13:00 02/19/25 13:57 Temperature 98.2 F Temperature Source Pulse Rate 70 70 70 Respiratory Rate 16 16 16 Respiratory Effort Respiratory Pattern Blood Pressure 120/70 112/70 120/70 Blood Pressure Mean 86 84 86 Pulse Ox 98 98 98 Oxygen Delivery Method MDM MDM MDM Narrative Medical decision making narrative: Patient is a 44 year old female presenting to the ED for feeling unwell. Patient was seen and examined. Patient resting in bed comfortably, no acute distress. Vitals are stable. Very nonspecific symptoms. Differential includes but is not limited: UTI, URI, pneumonia, electrolyte abnormality EKG shows sinus bradycardia at a rate of 58, no ischemic changes. No dysrhythmia. CBC with no leukocytosis and normal hemoglobin. Bicarb of 18 however no anion gap, normal glucose. Hypomagnesia him of 1.1, this was repleted. This is consistent with her prior levels for which she receives outpatient infusions. TSH within normal limits. Chest x-ray reviewed myself, no opacities, pneumothorax or widened mediastinum. Radiology read with negative findings as well. Urinalysis with positive nitrites and bacteria consistent with UTI. Patient given Rocephin here while waiting for magnesium to finish. Patient does have an allergy to penicillins but states this was when she was a child and she only developed skin changes. No allergic reaction to the Rocephin given here. Given Keflex for home for coverage of her UTI. She was instructed to follow-up with her primary care doctor to have her magnesium level rechecked in 1 to 2 days to determine if she needs additional IV repletion outpatient. Patient discharged from the Emergency Department. I do not feel that the patient's evaluation reveals any acute reason for admission at this time. I instructed them to either follow-up with their primary care physician or promptly return to the Emergency Department for reevaluation should symptoms worsen or new symptoms develop. I explained what symptoms would indicate the need to return to the emergency department. Shared decision making was used. The patient voiced understanding of the treatment plan and is agreeable with it. Clinical impression: UTI hypomagnesemia History & Record Review Discussion w/independent historian: Patient and Family Lab Data Attestation: I reviewed the patient's lab results. Labs: Laboratory Results - last 24 hr 02/19/25 02/19/25 09:48 10:35 WBC 5.8 RBC 4.04 L Hgb 12.3 Hct 37.3 MCV 92.3 MCH 30.4 MCHC 33.0 RDW Std Deviation 43.4 RDW Coeff of Jim 12.8 Plt Count 200 MPV 9.4 Immature Gran % (Auto) 0.000 Neut % (Auto) 51.3 Lymph % (Auto) 35.1 [place] % (Auto) 7.6 Eos % (Auto) 5.3 H Baso % (Auto) 0.7 Absolute Neuts (auto) 3.0 Absolute Lymphs (auto) 2.04 Nucleated RBC % 0 Sodium 141 Potassium 3.8 Chloride 109 H Carbon Dioxide 18.2 L Anion Gap 14 BUN 11 Creatinine 0.62 L Estim Creat Clear Calc 111.15 Est GFR (MDRD) Non-Af 113 BUN/Creatinine Ratio 18.4 Glucose 84 Calcium 9.1 Magnesium 1.1 L Total Bilirubin 0.28 AST 25 ALT 23 Alkaline Phosphatase 67 Total Protein 6.5 Albumin 3.8 Globulin 2.7 Albumin/Globulin Ratio 1.4 TSH 0.961 Urine Color Yellow Urine Clarity Sl. Cloudy Urine pH 6.0 Ur Specific Glide 1.025 Urine Protein 15 H Urine Glucose (UA) Normal Urine Ketones Negative Urine Occult Blood 10 H Urine Nitrite Positive H Urine Bilirubin Negative Urine Urobilinogen Normal Ur Leukocyte Esterase Negative Urine RBC 0-5 SEEN Urine WBC 0 SEEN Ur Squamous Epith Cells 0-5 SEEN Calcium Oxalate Crystal RARE Urine Bacteria 2+ Urine Mucus 0 SEEN Urine Test Negative Radiography Diagnostic Testing: Clinical Impression(s) from Imaging Studies Chest X-Ray 02/19/25 09:50 IMPRESSION: No acute cardiopulmonary process Reading Location: [facility] Discharge Plan Triage Chief Complaint: General Illness ED Provider: Angelina Patel Dx/Rx/DC Orders Clinical Impression: Hypomagnesemia, UTI (urinary tract infection) Instructions: Urinary Tract Infections in Women Prescriptions: New cephalexin 500 mg capsule 500 mg PO Q12 7 Days Qty: 14 0RF No Action ergocalciferol (vitamin D2) 50,000 UNIT capsule 50,000 unit PO MOTUWETH calcium carbonate [Calcium 500] 500 mg calcium (1,250 mg) tablet,chewable 500 mg PO BID Qty: 60 0RF [id number] 2.25 mg iron- 100 mcg Tablet 1 tab PO TID magnesium L-lactate 84 mg tablet extended release 252 mg PO TID Qty: 90 0RF clindamycin HCl [Cleocin HCl] 150 mg capsule 450 mg PO TID 10 Days Qty: 90 0RF cyanocobalamin (vitamin B-12) 1,000 mcg/mL solution Patient Comments: INJECT 1 ML (CC) INTRAMUSCULARLY ONCE A WEEK FOR 30 DAYS, THEN TAKE 1ML ONCE A MONTH. vitamin E (dl, acetate) 180 mg (400 unit) capsule 180 mg PO DAILY Primary Care Provider: José Luis Motley Referrals: José Luis Motley MD [Primary Care Provider, [facility]] - 2 Days Print Language: Armenian Disposition Disposition: Home, Self Care Discharge Date/Time: 02/19/25 14:16
--- NOTE | 2025-02-19 09:12 | EKG12_ITS ---
Test Reason : GENERAL Blood Pressure : */* mmHG Vent. Rate : 58 BPM Atrial Rate : 58 BPM P-R Int : 130 ms QRS Dur : 94 ms QT Int : 428 ms P-R-T Axes : 6 0 10 degrees QTcB Int : 420 ms Sinus bradycardia Otherwise normal ECG Confirmed by YAQUELIN RUIZ, ABHAY ([id number]), brands editor SCOTT BOBO ([id number]) on 02/22/2025 6:22:52 AM Referred By: Confirmed By: ABHAY JAMISON MD
--- NOTE | 2025-02-19 09:50 | RAD_ITS ---
PROCEDURE: CHEST PA AND LATERAL 02/19/2025 REASON FOR EXAM: FEELS WEAK TECHNIQUE: Procedure Code: RADCXR Modality: DX Procedure: CHEST PA AND LATERAL COMPARISON: November 12, 2021 FINDINGS: Hardware: None Heart: Normal Mediastinum: The mediastinal contour is unremarkable. Lungs: Clear. Bones: Mild curvature lower thoracic spine to the left. Surgical clips right upper quadrant from cholecystectomy. RAD/Chest PA and Lateral IMPRESSION: No acute cardiopulmonary process Reading Location: [id number]
[2025-02-19 09:53] LABS: Hematocrit 37.3 % (37-47); Hemoglobin 12.3 g/dL (12.0-15.0); Immature Granulocytes Count 0.000 X10^3/uL (0.0-0.0); Mean Corp Hgb Conc 33.0 g/dL (32-36); Mean Corpuscular Volume 92.3 fL (81-99); Mean Platelet Vol. 9.4 fl (6.2-12.0); NRBC Flagged by Analyzer 0 % (0-5); Platelet Count 200 K/mm3 (150-450); RBC Distribution Width CV 12.8 % (11.6-14.6); RBC Distribution Width SD 43.4 fl (35.1-43.9); Red Blood Count 4.04 M/mm3 (4.2-5.4); White Blood Count 5.8 K/mm3 (4.4-11.0)
[2025-02-19 10:26] VITALS: BP 128/99; PULSE 74; RESP 18; O2SAT 99
[2025-02-19 10:30] LABS: AST(SGOT) 25 U/L (<=31); Alanine Aminotransfer ALT/SGPT 23 U/L (<=34); Albumin, Serum 3.8 g/dL (3.5-5.0); Alkaline Phosphatase 67 U/L (35-104); Anion Gap 14 (5-15); BUN 11 mg/dL (4-19); BUN/Creat Ratio 18.4 RATIO (10-20); Calcium,Total 9.1 mg/dL (7.6-11.0); Carbon Dioxide 18.2 mmol/L (21.0-32.0); Chloride 109 mmol/L (98-108); Estimated Creatinine Clearance 111.15 ml/min (50-250); Globulin 2.7 g/dL (2.2-4.2); Glucose 84 mg/dL (70-99); Magnesium 1.1 mg/dL (1.5-2.2); Potassium 3.8 mmol/L (3.3-5.1)
[2025-02-19] MEDS: 0.9% Normal Saline (1000mL) 1,000 ML 1000 ML IV (10:34)
[2025-02-19 10:42] LABS: Mucous, Urine 0 SEEN /hpf (<or=2+)
[2025-02-19 10:45] LABS: Color, Urine Yellow (Yellow); Glucose, Dipstick Normal (Normal); Ketone-Dipstick Negative (Negative); Leukocyte Esterase-Dipstick Negative /ul (Negative); Nitrite-Dipstick Positive (Negative); Occult Blood-Urine 10 /ul (Negative); Protein-Dipstick 15 mg/dl (Negative); Specific Gravity, Urine 1.025 (1.002-1.030); Urine Bilirubin Dipstick Negative (Negative)
[2025-02-19 10:52] LABS: Calcium Oxalate Crystals Ur RARE /hpf (<or=2+); Squamous Epithelial Cells - UA 0-5 SEEN /hpf (5-10)
[2025-02-19 10:53] LABS: Internal QC Validated? YES +Cl - CLEAR BKGD; Pregnancy, Urine Negative Negative; Record Kit Lot#,Urine Preg 0000980607; Red Blood Cells-Urine 0-5 SEEN /hpf (0-5)
[2025-02-19] MEDS: Magnesium Sulfate 2 GM in Dextrose 5%-Water (100mL Bag) 100 ML IV (11:56)
[2025-02-19 12:00] VITALS: BP 120/70; PULSE 70; RESP 16; O2SAT 98
[2025-02-19 13:00] VITALS: BP 112/70; PULSE 70; RESP 16; O2SAT 98
[2025-02-19 13:57] VITALS: BP 120/70; PULSE 70; RESP 16; TEMP 36.8; O2SAT 98
== END 2025-02-19 14:16 | disposition home or self-care (01) ==
PROVIDERS: Emergency Provider Student in an Organized Health Care Education/Training Program; PCP Family Medicine; Visit Provider Student in an Organized Health Care Education/Training Program
DX: N39.0 Urinary tract infection, site not specified (principal); E83.42 Hypomagnesemia; F17.290 Nicotine dependence, other tobacco product, uncomplicated
CPT/HCPCS: 71046; 80053; 81001; 81025; 83735; 84443; 85025; 87631; 93005; 96365; 96366; 96367; 99285; A4216